=== PATIENT | female | born 1985 | race Caucasian/White ===

== ENCOUNTER → 2016-08-15 | Outpatient (CLI) | payer MEDICAID ==
[~2016-08-15] MED LIST: ALBU8.5H INH; BUDE10.22 INH; HYDR-4246 PO; HYDR2TAB56 PO; OXYC-541; PROC-14 PO
--- NOTE | 2016-08-17 10:15 | DI ---
Indication: ITS.REASON: C64.1 Comparison: Radiographs dated June 27, 2016 PROCEDURE: CT of the left arm without contrast. Technique: Axial CT images were performed through the left arm without intravenous contrast. Coronal and sagittal two-dimensional reformats. Automated Exposure Control and Iterative Reconstruction dose lowering techniques were utilized. Findings: Exam is performed for radiation therapy treatment planning purposes. Exam again shows interval surgery with resection of the radial head and proximal radius. There is some residual irregular soft tissue in this region which could be due to mass or hematoma near surgical clips causing metallic artifact. No additional lytic or blastic osseous foci identified. Impression: Radiation therapy treatment planning exam as above. .
== END ==
LOC: IMA 16:37
PROVIDERS: ATTEND Radiology Radiation Oncology
DX: C64.1 Malignant neoplasm of right kidney, except renal pelvis (principal); Z98.890 Other specified postprocedural states

== ENCOUNTER 2016-08-16 22:56 | Emergency (ER) | payer MEDICAID ==
[~2016-08-16] VITALS: Ht 165.1 cm; Wt 90.4 kg
[~2016-08-16 22:56] MED LIST changes: -PROC-14 PO
--- OUTSIDE RECORDS SUMMARY | 2016-08-16 23:00 | XMS REPORT | Continuity of Care Document ---
Author Author [facility] Organization [facility] Address Unknown Phone Unavailable Care Team Providers Care Tree Expert Name Role Phone Leonard Margot Primary Care Physician [phone] Source Comments Some departments are not documenting in the electronic medical record. If you do not see the information that you expected, contact Release of Information in the Health Information Management department at [phone] for further assistance in locating additional records.[facility] Active Allergies and Adverse Reactions Allergen Noted Date Severity Reactions Comments Pcn 06/25/2016 Medium RASH Zofran Odt 06/27/2016 Medium HEADACHE, RASH Current Medications Prescription Sig. Disp. Refills Start End Date Status Date acetaminophen (TYLENOL) Take 325 mg by mouth Active 325 mg tablet every 4 hours as needed for Pain. oxyCODONE SR (OXYCONTIN) Take 20 mg by mouth every Active 20 mg tablet 12 hours HYDROMORPHONE HCL Take 2 mg by mouth every Active (DILAUDID PO) 4-6 hours as needed. HYDROcodone/acetaminophen Take 1 Tab by mouth every Active (NORCO) 5/325 mg tablet 4 hours as needed for Pain Active Problems Problem Noted Date Metastatic cancer to bone (HCC) 07/05/2016 Most Recent Encounters Date Type Specialty Providers Description 08/08/2016 Hospital Radiology Atif Arnold MD Encounter 08/08/2016 Office Visit Oncology Atif Arnold MD Metastatic renal cell carcinoma, left (Primary Dx) 08/02/2016 Telephone Oncology Atif Arnold MD Other 07/29/2016 Telephone Oncology Atif Arnold MD Surgical Followup 07/17/2016 Documentation Oncology Atif Arnold MD 07/15/2016 Telephone Oncology Atif Arnold MD Wound Assessment 07/15/2016 Orders Only Oncology Atif Arnold MD Metastatic renal cell carcinoma, unspecified laterality (Primary Dx) 07/10/2016 Telephone Oncology Atif Arnold MD Other 07/09/2016 Telephone Oncology Atif Arnold MD Post-op 07/05/2016 Hospital Atif Arnold MD Metastatic cancer to bone - Encounter (HCC) 07/06/2016 07/05/2016 Telephone Oncology Atif Arnold MD Other 07/05/2016 Documentation Oncology Steph Arriola 07/05/2016 Anesthesia Sofia Ibrahim MD Event 07/05/2016 Surgery Atif Arnold MD RADICAL RESECTION LEFT PROXIMAL RADIUS. NEUROPLASTY, POSTERIOR INTEROSEOUS NERVE, BICIPITAL TENDON TENODESIS. 07/04/2016 Hospital Radiology Atif Arnold MD Encounter Rosana Smith RN Lind, Buzz Smith MD 07/01/2016 Telephone Oncology Atif Arnold MD Surgery 06/28/2016 Documentation Oncology Atif Arnold MD 06/28/2016 Documentation Oncology Steph Arriola 06/27/2016 Telephone Radiology Debi Barney RN 06/27/2016 Documentation Oncology Steph Arriola 06/27/2016 Telephone Oncology Atif Arnold MD Surgery 06/27/2016 Prep for Case Oncology Atif Arnold MD Metastatic renal cell carcinoma, unspecified laterality (Primary Dx) 06/26/2016 Telephone Oncology Atif Arnold MD Surgery 06/25/2016 Office Visit Oncology Atif Arnold MD Metastatic renal cell carcinoma to bone (HCC) (Primary Dx) 06/12/2016 Ancillary Radiology Outpatient, Radiologist Diagnosis unknown Orders (Primary Dx) 06/09/2016 Hospital Radiology Encounter 06/09/2016 Hospital Radiology Encounter Social History Tobacco Use Types Packs/Day Years Used Date Former Smoker 15 Quit: 06/02/2009 Smokeless Tobacco: Never Used Alcohol Use Drinks/Week oz/Week Comments No Last Filed Vital Signs Vital Sign Reading Time Taken Blood Pressure 118/63 08/08/2016 3:29 PM [employer]ANCE [employer] Pulse 79 08/08/2016 3:29 PM [employer] Temperature 36.4 C (97.6 F) 08/08/2016 3:29 PM [employer] Respiratory Rate 18 08/08/2016 3:29 PM [employer] Height 1.676 m (5' 5.98") 08/08/2016 3:29 PM INS[employer]ANCE [employer]NER Weight 91.717 kg (202 lb 3.2 oz) 08/08/2016 3:29 PM [employer] Body Mass Index 32.65 08/08/2016 3:29 PM [employer]ANCE [employer] Oxygen Saturation 99% 08/08/2016 3:29 PM [employer] Plan of Care Health Maintenance Due Date Last Done Comments Physical (Comprehensive) 1993 Exam Pertussis Vaccine 1997 Tetanus Vaccine 2003 Cervical Cancer Screening 2007 Influenza Vaccine 01/31/2017 Procedures from Last 3 Months Procedure Name Priority Date/Time Associated Diagnosis Comments ECG-SCAN 07/08/2016 Results for this 2:33 PM INS[employer]ANCE [employer] procedure are in the results section. RADICAL RESECTION LEFT 07/05/2016 Metastatic renal cell PROXIMAL RADIUS. 12:50 PM INS[employer]ANCE [employer]NER carcinoma (HCC) NEUROPLASTY, POSTERIOR INTEROSEOUS NERVE, BICIPITAL TENDON TENODESIS. Results from Last 3 Months * FOREARM 2 VIEWS LEFT (08/08/2016 4:05 PM) Only the most recent of 2 results within the time period is included. Impressions Findings/Impression: 1. The cast has been removed. The surgical drain has been removed. The postoperative air has resolved. Scattered clips and metallic coils are again seen in the proximal forearm similar to the prior study. Small amount of heterotopic ossification is seen in the proximal lateral forearm distal to the capitellum. Residual soft tissue swelling and stranding likely reflects residual postoperative change. 2. Prior resection of the proximal radius again noted. 3. There is a small focal lucency overlying the proximal radial osteotomy margin. This may reflect postoperative change. Subtle residual/recurrent lucent lesion is difficult to exclude as this appears more prominent than on the prior study. Attention on follow-up or further evaluation with cross-sectional imaging would be suggested. Finalized by Vicente Smith M.D. on 08/08/2016 6:09 PM. Dictated by Vicente Smith M.D. on 08/08/2016 6:05 PM. Narrative FOREARM 2 VIEWS LEFT 2 views obtained utilizing 3 images Indication: s/p Radical resection, left proximal radius for metastatic renal cell carcinoma. Comparison: July 05, 2016, June 09, 2016 Procedure Note Interface, Radiant Results - [facility] Aug 08, 2016 6:12 PM INSURANCE AG[employer]NER FOREARM 2 VIEWS LEFT 2 views obtained utilizing 3 images Indication: s/p Radical resection, left proximal radius for metastatic renal cell carcinoma. Comparison: July 05, 2016, June 09, 2016 IMPRESSION Findings/Impression: 1. The cast has been removed. The surgical drain has been removed. The postoperative air has resolved. Scattered clips and metallic coils are again seen in the proximal forearm similar to the prior study. Small amount of heterotopic ossification is seen in the proximal lateral forearm distal to the capitellum. Residual soft tissue swelling and stranding likely reflects residual postoperative change. 2. Prior resection of the proximal radius again noted. 3. There is a small focal lucency overlying the proximal radial osteotomy margin. This may reflect postoperative change. Subtle residual/recurrent lucent lesion is difficult to exclude as this appears more prominent than on the prior study. Attention on follow-up or further evaluation with cross-sectional imaging would be suggested. Finalized by Vicente Smith M.D. on 08/08/2016 6:09 PM. Dictated by Vicente Smith M.D. on 08/08/2016 6:05 PM. * ECG-SCAN (07/08/2016 2:33 PM) Narrative Ordered by an unspecified provider. * SURGICAL PATHOLOGY (07/05/2016 3:00 PM) Component Value Range PATHOLOGY REPORT [facility] [email or web address] Catalina Ponce MD, PhD, Director of Anatomic Pathology Department of Pathology and Laboratory Medicine [address] [place] [id number] Surgical Pathology Office: [phone] SURGICAL PATHOLOGY REPORT NAME: DIANA GROSSMAN TEQUITA SURG PATH #: [id number] MR #: [id number] SPECIMEN CLASS: SR BILLING #: [id number] ALT ID #: LOCATION: [facility] DATE OF PROCEDURE: 07/05/2016 AGE: 31 SEX: F DATE RECEIVED: 07/05/2016 : 1985 TIME RECEIVED: 15:00 PHYSICIAN: ATIF ARNOLD MD DATE OF REPORT: 07/09/2016 COPY TO: DATE OF PRINTIN07/09/2016 ################################################## ###################### Final Diagnosis: A. Bone, "left proximal radius", resection: Metastatic carcinoma consistent with metastatic renal cell carcinoma. See comment. Comment: Immunohistochemical stains show the tumor cells are positive for Cam5.2, PAX-8, focally positive for CD10, and negative for CK7 and CK 20. These findings support the above diagnosis. Pursuant to the [facility] at the [facility] Pathology Department, selected slides from this case have been concurrently reviewed by the following pathologist: Dr. Sada French, who agrees with the final diagnosis. Attestation: By this signature, I attest that I have personally formulated the final interpretation expressed in this report and that the above diagnosis is based upon my examination of the slides and/or other material indicated in this report. +++Electronically Signed Out By+++ ksw/07/05/2016 Interpreted by: Catalina Ponce MD, Attending Physician 07/09/2016 ################################################## ###################### Material Received: A: left proximal radius History: 31-year-old female with a history of metastatic renal cell carcinoma. Gross Description: A. Received fresh labeled patient's name and "left proximal radius" is a 4.5 x 1.5 x 1.2 cm portion of white-lowery, firm bone with a white-lowery, smooth articular surface opposing the smooth resection margin. There is a 3.5 x 2.5 x 1.1 cm white-lowery, hemorrhagic portion of soft tissue detached from the bone within the container. Load Out Person sections are submitted as follows: A1 Marrow from resection margin. A2-A4 Entire portion of detached soft tissue. A5 Load Out Person sections of bone marrow within bone fungi. (br) sd/07/05/2016 If immunohistochemical stains and/or in situ hybridization are cited in this report, the performance characteristics were determined by the Department of Pathology and Laboratory Medicine of the [facility] ([employer]) in compliance with CLIA'88 regulations. Some of these tests rely on the use of "analyte specific reagents" and are subject to specific labeling requirements by the FDA. Known positive and negative control tissues demonstrate appropriate staining. This testing was developed by the Department of Pathology and Laboratory Medicine of the [facility]. It has not been cleared or approved by the FDA. The FDA has determined that such clearance or approval is not necessary. * IR BODY EMBOLIZATION (07/04/2016 1:28 PM) Impressions Left upper extremity arteriogram and embolization of a markedly hypervascular destructive radial head mass using a combination of particles and coils. Finalized by Brett Dumont M.D. on 07/04/2016 3:55 PM. Dictated by Brett Dumont M.D. on 07/04/2016 3:40 PM. Narrative Left upper extremity arteriogram and embolization of radial head mass Clinical history: Renal cell carcinoma, left radial head metastasis Technique and findings: Buzz Perales M.D., the attending radiologist, was present for the procedure, personally reviewed the images, and formulated the interpretations and opinions expressed in this report. After informed written consent was obtained, the patient was brought to the fluoroscopy suite and placed in the supine position. The right groin was prepped and draped in the usual sterile fashion. 2% lidocaine was used to anesthetize the skin and the right common femoral artery was punctured using a 21-gauge micropuncture needle. An 018 wire was advanced centrally and a dermatotomy incision was made. The needle was exchanged for a micropuncture catheter. Inner portion of the catheter and the wire were removed and a Bentson wire was advanced into the abdominal aorta. A 6 Burmese vascular sheath was advanced over the Bentson wire and attached to a pressurized saline drip. A 5 Burmese TOBI 1 catheter was advanced over the Amplatz wire and used to select the left subclavian artery. Hand-injection digital subtraction angiography was performed. This demonstrated a widely patent left subclavian artery, axillary artery, and upper brachial artery without evidence of significant stenosis. The TOBI 1 catheter was advanced into the upper brachial artery. Hand-injection digital subtraction angiography was performed over the elbow demonstrating a markedly hypervascular mass which destroys the radial head. After the initial angiography was performed, the brachial artery demonstrated severe diffuse spasm. This was treated using 300 mcg of intra-arterial nitroglycerin as well as 5 mg of intra-arterial verapamil. This resulted in resolution of the spasm. A microcatheter was advanced into the distal brachial artery and hand-injection digital subtraction angiography was performed in multiple obliquities. Images demonstrated 2 dominant arterial feeders to the hypervascular mass. One of the vessels originated from the proximal radial artery and the other originating from the proximal ulnar artery. Both of these vessels were selected using the microcatheter and were embolized using a combination of 100-300 um embosphere's and 2 mm detachable coils. Repeat hand injection digital subtraction angiography was performed demonstrating marked reduction in flow to the mass. The catheters were removed and a sheath arteriogram was performed which demonstrated a widely patent right common femoral artery. Therefore, the arteriotomy site was closed using an Angio-Seal device. Sterile dressings were applied, and the patient was taken to the recovery area in stable condition. Total radiation dose: 159 mg Contrast: 160 cc Isovue-300 Medications: Versed 5 mg, fentanyl 200 mcg, Benadryl 50 mg Procedure Note Interface, Radiant Results - [facility] Jul 04, 2016 5:01 PM INSURANCE AG[employer]Y [employer]NER Left upper extremity arteriogram and embolization of radial head mass Clinical history: Renal cell carcinoma, left radial head metastasis Technique and findings: Buzz Perales M.D., the attending radiologist, was present for the procedure, personally reviewed the images, and formulated the interpretations and opinions expressed in this report. After informed written consent was obtained, the patient was brought to the fluoroscopy suite and placed in the supine position. The right groin was prepped and draped in the usual sterile fashion. 2% lidocaine was used to anesthetize the skin and the right common femoral artery was punctured using a 21-gauge micropuncture needle. An 018 wire was advanced centrally and a dermatotomy incision was made. The needle was exchanged for a micropuncture catheter. Inner portion of the catheter and the wire were removed and a Bentson wire was advanced into the abdominal aorta. A 6 Burmese vascular sheath was advanced over the Bentson wire and attached to a pressurized saline drip. A 5 Burmese TOBI 1 catheter was advanced over the Amplatz wire and used to select the left subclavian artery. Hand-injection digital subtraction angiography was performed. This demonstrated a widely patent left subclavian artery, axillary artery, and upper brachial artery without evidence of significant stenosis. The TOBI 1 catheter was advanced into the upper brachial artery. Hand-injection digital subtraction angiography was performed over the elbow demonstrating a markedly hypervascular mass which destroys the radial head. After the initial angiography was performed, the brachial artery demonstrated severe diffuse spasm. This was treated using 300 mcg of intra-arterial nitroglycerin as well as 5 mg of intra-arterial verapamil. This resulted in resolution of the spasm. A microcatheter was advanced into the distal brachial artery and hand-injection digital subtraction angiography was performed in multiple obliquities. Images demonstrated 2 dominant arterial feeders to the hypervascular mass. One of the vessels originated from the proximal radial artery and the other originating from the proximal ulnar artery. Both of these vessels were selected using the microcatheter and were embolized using a combination of 100-300 um embosphere's and 2 mm detachable coils. Repeat hand injection digital subtraction angiography was performed demonstrating marked reduction in flow to the mass. The catheters were removed and a sheath arteriogram was performed which demonstrated a widely patent right common femoral artery. Therefore, the arteriotomy site was closed using an Angio-Seal device. Sterile dressings were applied, and the patient was taken to the recovery area in stable condition. Total radiation dose: 159 mg Contrast: 160 cc Isovue-300 Medications: Versed 5 mg, fentanyl 200 mcg, Benadryl 50 mg IMPRESSION Left upper extremity arteriogram and embolization of a markedly hypervascular destructive radial head mass using a combination of particles and coils. Finalized by Brett Dumont M.D. on 07/04/2016 3:55 PM. Dictated by Brett Dumont M.D. on 07/04/2016 3:40 PM. * GENERAL RAD UPPER EXT EXTERNAL IMAGING (06/09/2016 12:15 AM) Narrative This order has been auto finalized and does not contain a result. * CT UPPER EXT EXTERNAL IMAGING (06/09/2016) Narrative This order has been auto finalized and does not contain a result.
--- OUTSIDE RECORDS SUMMARY | 2016-08-16 23:00 | XMS REPORT ---
Author Author [employer] Organization Unknown Address Unknown Phone Unavailable Care Team Providers Care Sr. Manager Name Role Phone UNASSIGNED DOCTOR , DOCTOR PP [phone] Reason For Visit Reason for Visit from 04/07/2016 2:20 AM:* Pt Stated Reason for Adm : Cellulitis of abdomen Chief Complaint CELLULITIS Social History Social History from 04/07/2016 9:00 PM:* Tobacco Use? : Current Everyday Smoker Social History from 04/07/2016 2:20 AM:* Tobacco Use? : Current Everyday Smoker Functional Status Functional Status from 04/07/2016 7:40 PM:* LOC : Irritable * Oriented To : Person,Place,Time,Event * Weight Bearing Status : Full * Assist Level : Independent * # Assists : Independent Functional Status from 04/07/2016 7:50 AM:* LOC : Alert * Oriented To : Person,Place,Time,Event * Weight Bearing Status : Full * Assist Level : Independent * # Assists : Independent Functional Status from 04/07/2016 2:20 AM:* LOC : Alert * Oriented To : Person,Place,Time,Event * Weight Bearing Status : Full * Assist Level : Independent * # Assists : Independent Vital Signs Hospital Vital Signs from 04/07/2016 7:23 PM:* Height : 5/5 ft,in * Temperature : 99.2 F * Pulse : 91 * Respirations : 18 * BP : 116/71 Hospital Vital Signs from 04/07/2016 4:00 PM:* Height : 5/5 ft,in * Temperature : 97.4 F * Pulse : 77 * Respirations : 18 * BP : 118/68 Hospital Vital Signs from 04/07/2016 7:57 AM:* Height : 5/5 ft,in * Temperature : 97.2 F * Pulse : 69 * Respirations : 18 * BP : 109/67 Hospital Vital Signs from 04/07/2016 2:20 AM:* Weight : 80.286/ kg * Height : 5/5 ft,in Hospital Vital Signs from 04/07/2016 2:19 AM:* Weight : 177/ lbs,oz * Height : 5/5 ft,in * Temperature : 97.4 F * Pulse : 107 * Respirations : 20 * BP : 140/87 Results Chemistry from 04/07/2016 6:03 AMSODIUM 140 MMOL/L (136-145 MMOL/L) POTASSIUM 3.7 MMOL/L (3.5-5.1 MMOL/L) CHLORIDE 104 MMOL/L (98-107 MMOL/L) TCO2 28.6 MMOL/L (21.0-32.0 MMOL/L) *ANION GAP 7.4 MMOL/L L (8.0-16.0 MMOL/L) BUN 11 MG/DL (7-18 MG/DL) CREATININE 1.29 MG/DL H (0.55-1.02 MG/DL) *BUN/CREATININE RATIO 8.5 L (9.1-17.0 ) GLUCOSE 96 MG/DL (65-99 MG/DL) CALCIUM 8.5 MG/DL (8.5-10.1 MG/DL) BILIRUBIN TOTAL 0.80 MG/DL (0.20-1.00 MG/DL) TOTAL PROTEIN 6.5 GM/DL (6.4-8.2 GM/DL) ALBUMIN 2.9 GM/DL L (3.4-5.0 GM/DL) *GLOBULIN 3.6 GM/DL H (2.3-3.5 GM/DL) *A/G RATIO 0.8 MG/DL L (1.5-2.2 MG/DL) ALK PHOS 88 U/L (46-116 U/L) ALT (SGPT) 26 U/L (16-63 U/L) AST (SGOT) 13 U/L L (15-37 U/L) Hematology from 04/07/2016 6:03 AMWBC 14.4 X10e3/UL H (3.6-11.2 X10e3/UL) RBC 4.43 X10e6/UL (3.63-4.92 X10e6/UL) HEMOGLOBIN 11.9 G/DL (11.0-14.3 G/DL) HEMATOCRIT 35.3 % (31.2-41.9 %) *MCV 79.7 FL (79.0-98.0 FL) *MCH 26.9 PG L (27.0-33.0 PG) *MCHC 33.7 G/DL (32.0-36.0 G/DL) *RDW 13.8 % (12.3-17.0 %) *RDWSD 39.4 (37.1-47.8 ) PLATELET 307 X10e3/UL (159-386 X10e3/UL) *MPV 7.3 FL L (7.4-10.4 FL) AUTOMATED DIFF PERFORMED SEGS 69.0 % *LYMPHOCYTES 17.1 % *MONOCYTES 7.6 % *EOSINOPHILS 5.7 % *BASOPHILS 0.6 % *ABSOLUTE NEUTROPHILS 10.00 X10e3/UL H (1.80-7.80 X10e3/UL) *ABSOLUTE LYMPHOCYTES 2.50 X10e3/UL (1.00-3.00 X10e3/UL) *ABSOLUTE MONOCYTES 1.10 X10e3/UL H (0.30-1.00 X10e3/UL) *ABSOLUTE EOSINOPHILS 0.80 X10e3/UL H (0.00-0.50 X10e3/UL) *ABSOLUTE BASOPHILS 0.10 X10e3/UL (0.00-0.20 X10e3/UL) Problems Encounter Diagnosis * Acute Pain Status:Active. * Asthma Status:Active. * Neoplasm of Kidney Status:Active. * Postoperative Wound Infection Status:Active. Encounters Encounter Diagnosis * Acute Pain Status:Active. * Asthma Status:Active. * Neoplasm of Kidney Status:Active. * Postoperative Wound Infection Status:Active. Plan of Care Treatment Plan from 04/07/2016 5:25 PM:* Care Management Note : Pt recently diagnosed with renal cancer. States she has support from her boyfriend, children , and [employer]. Pt planning to start chemo soon. Oncologist is in [place]. SW provided education on Palliative Care program and gave pt brochure. Pt states she will consider the program but may want to talk to her oncologist first. No other needs or concerns at this time. Treatment Plan from 04/07/2016 8:12 AM:* Care Management Note : Patient is inpatient status. She presented to the ED due to abdominal pain, swelling, redness and leukocytosis with WBC's 17.8. At presentation she was one day post discharge from [facility] after having a right nephrectomy. She was found to have fluid and free air in the abdomen. Blood cultures have been obtained and she is on empiric IV antibiotics and IVF at 100 hr. Meets ,medical necessity for inpatient. Care management will follow, provide clinical information to commercial insurance and assess for discharge needs. Procedures No relevant procedures performed. Immunizations No immunizations administered or ordered. Hospital Course Hospital Discharge Instructions How to care for yourself at home from 04/07/2016 9:00 PM:* Discharge Activity : Activity as tolerated,No Tub Bath * Discharge Diet : Diet as tolerated * Call your doctor if: : Fever over 101 F or severe chills,Chest pain or other unexplained symptoms,Tingling or numbness develops,A sudden increase or decrease in weight,You have persistent or worsening symptoms,If you have Heart Failure and you gain 3 pounds within 1 week or your symptoms worsen. (Weigh at home tomorrow morning) * Specific Discharge Teaching Instructions provided: : No * Discharge on Warfarin : No Allergies, Adverse Reactions, Alerts * Dilaudid causes unspecified. * morphine causes unspecified. * Penicillins causes unspecified. * Zofran (as hydrochloride) causes Mild Headache. * No Latex Allergy. * No IV Contrast Allergy. Medication Medication reconciliation has not been performed.
--- OUTSIDE RECORDS SUMMARY | 2016-08-16 23:00 | XMS REPORT ---
Author Author Kendra Contreras Organization [facility] Address [address] [place], [place] [id number] Care Team Providers Care Hoop Machine Operator Name Role Phone Kendra Contreras Unavailable [phone] PROBLEMS Type Condition ICD9-CM Code [id number] Code Onset Dates Condition Status SNOMED Code Assessment Infection following a procedure, initial encounter T81.4XXA May, Active [id number] ALLERGIES Substance Reaction Event Type Date Status Penicillin G Potassium Unknown Drug Allergy May, Active SOCIAL HISTORY No smoking Hx information available PLAN OF CARE VITAL SIGNS Height 5 ft 5 in in 2016 Weight 192 lbs 2016 BMI 31.95 kg/m2 2016 Temperature 97.9 degrees Fahrenheit 2016 Heart Rate 92 /min 2016 Respiratory Rate 18 /min 2016 Oximetry 97 % 2016 Blood pressure systolic 116 mm Hg 2016 Blood pressure diastolic 62 mm Hg 2016 MEDICATIONS Medication Instructions Dosage Frequency Start Date End Date Duration Status Mupirocin 2 % Externally Three times a day 1 application to affected area 8h May, May, 07 days Active RESULTS No Results PROCEDURES Procedure Date Ordered Related Diagnosis Body Site OFFICE VISIT EST PATIENT LEVEL 3 2016 IMMUNIZATIONS No Known Immunizations
--- OUTSIDE RECORDS SUMMARY | 2016-08-16 23:00 | XMS REPORT ---
Author Author GENERATED, SYSTEM Organization Unknown Address Unknown Phone Unavailable Care Team Providers Care Clinical Academic Allergist Name Role Phone UNASSIGNED DOCTOR , DOCTOR PP [phone] Reason For Visit Chief Complaint PRE EMPLOYMENT PHYSICAL Social History Functional Status Vital Signs Results Problems Encounter Diagnosis No relevant problems exist. Encounters Encounter Diagnosis No relevant problems exist. Plan of Care Procedures No relevant procedures performed. Immunizations No immunizations administered or ordered. Hospital Course Hospital Discharge Instructions Allergies, Adverse Reactions, Alerts * Latex Allergy has not been assessed. * IV Contrast Allergy has not been assessed. Medication Medication reconciliation has not been performed.
--- OUTSIDE RECORDS SUMMARY | 2016-08-16 23:01 | XMS REPORT ---
Author Author GENERATED, SYSTEM Organization Unknown Address Unknown Phone Unavailable Care Team Providers Care Management Accounts Manager Name Role Phone YARY DREW, GHAZAL PP [phone] Reason For Visit Chief Complaint M79.602 LT ARM PAIN AND SWELLING,VENOUS DOP UP ARM/NECK LT (DVT) Social History Functional Status Vital Signs Results Problems Encounter Diagnosis No relevant problems exist. Additional Problems * Acute Pain Comment:Problem resolved by [facility] Work[facility] upon Discharge, Status :Resolved. * Asthma Comment:Problem resolved by [facility] upon Discharge, Status: Resolved. * Neoplasm of Kidney Comment:Problem resolved by [facility] upon Discharge , Status:Resolved. * Postoperative Wound Infection Comment:Problem resolved by [facility] upon Discharge, Status:Resolved. Encounters Encounter Diagnosis No relevant problems exist. Plan of Care Procedures No relevant procedures performed. Immunizations No immunizations administered or ordered. Hospital Course Hospital Discharge Instructions Allergies, Adverse Reactions, Alerts * Dilaudid causes unspecified. * morphine causes unspecified. * Penicillins causes unspecified. * Zofran (as hydrochloride) causes Mild Headache. * Latex Allergy has not been assessed. * IV Contrast Allergy has not been assessed. Medication Medication reconciliation has not been performed.
--- OUTSIDE RECORDS SUMMARY | 2016-08-16 23:01 | XMS REPORT | Continuity of Care Document ---
Author Author [facility] Organization [facility] Address Unknown Phone Unavailable Care Team Providers Care Pallet Stone Inserter Name Role Phone DAVID ABDALLA MD Primary Care Physician [phone] Insurance Providers Payer Name Policy Number Subscriber Name Relationship [facility] [id number] Diana Grossman 19 Self Advance Directives Directive Response Recorded Date/Time Advanced Directives Type None 08/01/14 12:56pm Problems Medical Problems Problem Onset Date Status Viral illness Unknown Active Viral illness Unknown Active Medications Medication Dose Route Sig Days/Qty Instructions Order Date Discontinued Date Status Lurasidone HCl 40 Mg PO DAILY 08/01/14 Active Risperidone 5 Mg PO DAILY 08/01/14 Active Oseltamivir Phosphate 75 Mg PO TWICE A DAY 5 Days Take one capsules, by mouth, two times a day. 08/01/14 Active Social History Social History Problem Response Recorded Date/Time Hx Alcohol Use No 08/01/2014 1:09pm Query Response Start Date Stop Date Smoking Status Current every day smoker Hospital Discharge Instructions No hospital discharge instructions. Plan of Care No plan of care. Functional Status Query Response Date Recorded Physical Hygiene Self August 01, 2014 1:09pm Disabilities None August 01, 2014 1:09pm Devices Used None August 01, 2014 1:09pm Dressing Self August 01, 2014 1:09pm Ambulation Self August 01, 2014 1:09pm Diet Self August 01, 2014 1:09pm Mental Status Alert Oriented August 01, 2014 1:09pm Disabilities None August 01, 2014 1:09pm Devices Used None August 01, 2014 1:09pm Physical Hygiene Self August 01, 2014 1:09pm Dressing Self August 01, 2014 1:09pm Ambulation Self August 01, 2014 1:09pm Diet Self August 01, 2014 1:09pm Allergies, Adverse Reactions, Alerts No known allergies. Immunizations Name Given Type Hx Influenza Vaccination No Historical Hx Influenza Vaccination No Historical Vital Signs Acute Vital Signs Vital Response Date/Time Temperature (Fahrenheit) 96.9 deg F (96.8 - 99.1) Temperature (Calculated Celsius) 36.11114 degrees C (36.0 - 37.3) Pulse Rate (adult) 78 bpm (60 - 100) Respiratory Rate 18 breaths/min (10 - 20) O2 Sat by Pulse Oximetry 99 % (90 - 100) Blood Pressure 119/56 mm Hg Height 5 ft 5 in Weight 186 lb Body Mass Index 31.0 kg/m^2 Results Test Source Date Result Interp. Ref. Range Comments Influenza Type B Antigen August 01, 2014 1:06pm Negative - Negative for Flu B protein antigen. Assay sensitivity is90%. Influenza Type A Antigen August 01, 2014 1:06pm Negative - Negative for Flu A protein antigen. Assay sensitivity is90%. Procedures No known history of procedures. Encounters Encounter Location Date/Time Departed Emergency Room [facility] 08/01/14 12:10pm Recent Diagnosis
--- OUTSIDE RECORDS SUMMARY | 2016-08-16 23:01 | XMS REPORT | Continuity of Care Document ---
Author Author Pool [facility] Organization [facility] Address Unknown Phone Unavailable Care Team Providers Care Canned Food Reconditioning Inspector Name Role Phone YENNIFER DIXON Primary Care Physician [phone] Insurance Providers Payer Name Policy Number Subscriber Name Relationship [facility] [id number] Diana Grossman 19 Self Advance Directives Directive Response Recorded Date/Time Advanced Directives Type None 08/28/14 9:04pm Problems Medical Problems Problem Onset Date Status Viral illness Unknown Active Viral illness Unknown Active Exacerbation of intermittent asthma Unknown Active Medications Medication Dose Route Sig Days/Qty Instructions Order Date Discontinued Date Status Lurasidone HCl 40 Mg PO DAILY 08/01/14 Active Risperidone 5 Mg PO DAILY 08/01/14 Active Oseltamivir Phosphate 75 Mg PO TWICE A DAY 5 Days Take one capsules, by mouth, two times a day. 08/01/14 Active Prednisone 40 Mg PO GIVE WITH BREAKFAST 5 Days 08/28/14 Active Social History Social History Problem Response Recorded Date/Time Hx Alcohol Use No 08/28/2014 9:04pm Query Response Start Date Stop Date Smoking Status Current every day smoker Hospital Discharge Instructions No hospital discharge instructions. Plan of Care No plan of care. Functional Status Query Response Date Recorded Physical Hygiene Self August 28, 2014 9:04pm Disabilities None August 28, 2014 9:04pm Devices Used None August 28, 2014 9:04pm Dressing Self August 28, 2014 9:04pm Ambulation Self August 28, 2014 9:04pm Diet Self August 28, 2014 9:04pm Mental Status Alert Oriented August 28, 2014 9:04pm Disabilities None August 28, 2014 9:04pm Devices Used None August 28, 2014 9:04pm Physical Hygiene Self August 28, 2014 9:04pm Dressing Self August 28, 2014 9:04pm Ambulation Self August 28, 2014 9:04pm Diet Self August 28, 2014 9:04pm Allergies, Adverse Reactions, Alerts Allergen Type Severity Reaction Status Last Updated Penicillin Allergy Unknown Active 08/28/14 Immunizations Name Given Type Hx Influenza Vaccination No Historical Hx Influenza Vaccination No Historical Vital Signs Acute Vital Signs Vital Response Date/Time Temperature (Fahrenheit) 98.7 deg F (96.8 - 99.1) Temperature (Calculated Celsius) 37.28332 degrees C (36.0 - 37.3) Pulse Rate (adult) 89 bpm (60 - 100) Respiratory Rate 20 breaths/min (10 - 20) O2 Sat by Pulse Oximetry 99 % (90 - 100) Blood Pressure 101/49 mm Hg Height 5 ft 5 in Weight 189 lb Body Mass Index 31.0 kg/m^2 Results Test Source Date Result Interp. Ref. Range Comments Influenza Type B Antigen August 01, 2014 1:06pm Negative - Negative for Flu B protein antigen. Assay sensitivity is90%. Influenza Type A Antigen August 01, 2014 1:06pm Negative - Negative for Flu A protein antigen. Assay sensitivity is90%. Name: DIANA GROSSMAN Unit #: [id number] : 1985 Sex: F Loc / Svc: ED DOS: 08/28/14 Signed Report #: [id number] DIAGNOSTIC IMAGING REPORT TYPE OF EXAM: CHEST, PA & LATERAL Dictated By: CHRISTOPHER GÓMEZ MD INDICATION: ITS.REASON: cough shortness of air off and on for 2 weeks CHEST 2-VIEWS UPRIGHT (PA & LAT) COMPARISON: None FINDINGS: The lungs are clear without evidence of focal abnormal airspace opacity. There is no pleural effusion or pneumothorax. The heart size, mediastinal contours and pulmonary vascularity are within normal limits. There is no significant skeletal abnormality. IMPRESSION: No acute cardiopulmonary disease. . Procedures Procedure Status Date Provider(s) INFLUENZA A/B AG EIA completed 08/01/14 EMERGENCY DEPT VISIT completed 08/01/14 TRANSVAGINAL US NON-OB completed 08/11/14 Encounters Encounter Location Date/Time Registered Emergency Room [facility] 08/28/14 8:46pm Registered Clinic [facility] 08/11/14 1:58pm Departed Emergency Room [facility] 08/01/14 12:10pm Recent Diagnosis
--- OUTSIDE RECORDS SUMMARY | 2016-08-16 23:01 | XMS REPORT ---
Author Author GENERATED, SYSTEM Organization Unknown Address Unknown Phone Unavailable Care Team Providers Care Bowling Alley Mechanic Name Role Phone UNASSIGNED DOCTOR , DOCTOR PP [phone] Reason For Visit Chief Complaint RT RENAL MASS WITH RT FLANK PAIN Social History Functional Status Vital Signs Results Chemistry from 03/27/2016 10:17 AMSODIUM 141 MMOL/L (136-145 MMOL/L) POTASSIUM 4.0 MMOL/L (3.5-5.1 MMOL/L) CHLORIDE 105 MMOL/L (98-107 MMOL/L) TCO2 27.1 MMOL/L (21.0-32.0 MMOL/L) *ANION GAP 8.9 MMOL/L (8.0-16.0 MMOL/L) BUN 8 MG/DL (7-18 MG/DL) CREATININE 0.68 MG/DL (0.55-1.02 MG/DL) *BUN/CREATININE RATIO 11.8 (9.1-17.0 ) GLUCOSE 97 MG/DL (65-99 MG/DL) *GFR EST NON AFR BERMUDIAN >90 ML/MIN *GFR EST AFR AMER >90 ML/MIN CALCIUM 9.1 MG/DL (8.5-10.1 MG/DL) BILIRUBIN TOTAL 0.70 MG/DL (0.20-1.00 MG/DL) TOTAL PROTEIN 7.0 GM/DL (6.4-8.2 GM/DL) ALBUMIN 3.4 GM/DL (3.4-5.0 GM/DL) *GLOBULIN 3.6 GM/DL H (2.3-3.5 GM/DL) *A/G RATIO 0.9 MG/DL L (1.5-2.2 MG/DL) ALK PHOS 93 U/L (46-116 U/L) ALT (SGPT) 20 U/L (16-63 U/L) AST (SGOT) 12 U/L L (15-37 U/L) LIPASE 75 U/L (73-393 U/L) Hematology from 03/27/2016 10:17 AMWBC 12.4 X10e3/UL H (3.6-11.2 X10e3/UL) RBC 5.21 X10e6/UL H (3.63-4.92 X10e6/UL) HEMOGLOBIN 14.2 G/DL (11.0-14.3 G/DL) HEMATOCRIT 41.8 % (31.2-41.9 %) *MCV 80.2 FL (79.0-98.0 FL) *MCH 27.2 PG (27.0-33.0 PG) *MCHC 33.9 G/DL (32.0-36.0 G/DL) *RDW 13.9 % (12.3-17.0 %) *RDWSD 39.4 (37.1-47.8 ) PLATELET 316 X10e3/UL (159-386 X10e3/UL) *MPV 7.4 FL (7.4-10.4 FL) AUTOMATED DIFF PERFORMED SEGS 68.6 % *LYMPHOCYTES 21.0 % *MONOCYTES 6.7 % *EOSINOPHILS 2.8 % *BASOPHILS 0.9 % *ABSOLUTE NEUTROPHILS 8.50 X10e3/UL H (1.80-7.80 X10e3/UL) *ABSOLUTE LYMPHOCYTES 2.60 X10e3/UL (1.00-3.00 X10e3/UL) *ABSOLUTE MONOCYTES 0.80 X10e3/UL (0.30-1.00 X10e3/UL) *ABSOLUTE EOSINOPHILS 0.40 X10e3/UL (0.00-0.50 X10e3/UL) *ABSOLUTE BASOPHILS 0.10 X10e3/UL (0.00-0.20 X10e3/UL) Urinalysis from 03/27/2016 11:42 AM*URINE COLOR STRAW (STRAW/YELL/DK YELL ) *URINE APPEARANCE SL CLOUDY A (CLEAR ) URINE PH 6.5 (5.0-8.0 ) URINE SPECIFIC GRAVITY 1.010 (<=1.005->=1.030 ) *URINE GLUCOSE NEGATIVE MG/DL (NEGATIVE MG/DL) *URINE BILIRUBIN NEGATIVE (NEGATIVE ) *URINE KETONES NEGATIVE MG/DL (NEGATIVE MG/DL) *URINE BLOOD TRACE-INTACT A (NEGATIVE ) *URINE PROTEIN NEGATIVE MG/DL (NEGATIVE MG/DL) *URINE UROBILINOGEN 0.2 EU/DL (0.2-1.0 EU/DL) *URINE NITRITES NEGATIVE (NEGATIVE ) *URINE LEUKOCYTES NEGATIVE (NEGATIVE ) *MICROSCOPIC EXAM PERFORMED PERFORMED *WBC URINE 1-5 /HPF (0-5 /HPF) *RBC URINE 5-10 /HPF A (0-1 /HPF) *SQUAMOUS EP. CELLS MANY /LPF A (NEG-FEW /LPF) *BACTERIA MANY /HPF A (NEGATIVE /HPF) CT Scan from 03/27/2016 11:52 AMCT ABD/PELVIS W/CONTRAST History: Abdominal pain x2 weeks with right flank pain. Right renal mass identified on gallbladder ultrasound. Technique: Post contrast images were performed after the administration of 95 milliliters of Isovue intravenous contrast. Priors: None. Findings: Abdomen Lung bases: Clear Liver: Normal density. No definable mass. Spleen: Normal. Pancreas: No discrete mass or inflammatory process. Gallbladder and biliary tract: No radiodense calculus or dilation. Adrenal glands: Normal. Kidneys: There is an 8 x 6 x 5.5 cm mass in the mid and upper pole of the right kidney which extends cephalad into the right suprarenal space. There is some necrosis centrally of the tumor. The lesion is consistent with a neoplastic process such as renal cell carcinoma. The right renal vein and inferior vena cava appear patent. The left kidney appears unremarkable. Urinary Bladder: Normal. Aorta: Normal in caliber. No periaortic lymphadenopathy. Bowel and Mesentery: Grossly normal. No findings of appendicitis. Ascites: None. Pelvis Lymphadenopathy: None. Reproductive: The uterus is surgically absent. Osseous Structures: No suspicious findings. Impression: Large solid enhancing right renal mass as described consistent with a neoplastic process such as renal cell carcinoma. No discrete metastases are identified. Electronically signed by: Sukhwinder Beltran MD Dictated: 03/27/2016 12:29 CT CHEST W/ CONTRAST History: renal mass and right sided abdominal pain with vomiting. Staging Technique: Post contrast images were performed after the administration of 95 milliliters of Isovue intravenous contrast. Priors: None. Findings: Heart size: Normal. Aorta: Thoracic portion non-dilated. Mediastinum and Kari: No dominant adenopathy or fluid collection. Pleura: No effusion or pneumothorax. Pulmonary parenchyma: No consolidation or dominant measurable mass. Note is made of chronic scarring and fibrosis in the right upper lobe laterally of uncertain etiology. This may be previous infectious process. Upper abdomen: Unremarkable. Osseous structures: Unremarkable. 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 There multiple collateral vessels in the right anterior chest wall and Carlos Alberto spinous region. No lymphadenopathy or discrete supraclavicular mass lesion is identified. Impression: No evidence of acute infiltrate or pulmonary metastasis. 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 No discrete lymphadenopathy or mass lesions identified. Chronic pleural parenchymal scarring in the right upper lobe of uncertain etiology. This may be from prior infectious process or other etiologies such as radiation therapy. Correlation with medical history is recommended. Electronically signed by: Sukhwinder Beltran MD Dictated: 03/27/2016 12:15 Problems Encounter Diagnosis No relevant problems exist. [...]
--- OUTSIDE RECORDS SUMMARY | 2016-08-16 23:01 | XMS REPORT | Continuity of Care Document ---
Author Author [facility] Organization [facility] Address Unknown Phone Unavailable Allergies Active Description Code Type Severity Reaction Onset Reported/Identified Relationship to Patient Clinical Status Yes penicillin ZZ Drug Allergy Moderate Eruption - Rash 03/28/2015 Medications Problems Date Dx Coded Attending Type Code Diagnosis Diagnosed By 03/24/2015 INDRA LINDER, BHAVESH Aranda 300.02 Generalized Anxiety Disorder 03/24/2015 INDRA LINDER, BHAVESH Aranda 309.89 Other specified adjustment reactions 04/15/2016 D C641 Malignant neoplasm of right kidney, except renal pelvis 04/15/2016 D 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 04/15/2016 D [id number] Nicotine dependence, cigarettes, uncomplicated 04/15/2016 D [id number] Cellulitis of abdominal wall 04/15/2016 D [id number] Infection following a procedure, initial encounter 04/15/2016 D Z8541 Personal history of malignant neoplasm of cervix uteri 04/15/2016 D Z881 Allergy status to other antibiotic agents status 04/15/2016 D Z885 Allergy status to narcotic agent status 04/15/2016 D Z905 Acquired absence of kidney Procedures Results Test Result Range CBC WITH PLATELET AND DIFFERENTIAL - 03/27/16 10:17 SEGS 68.6 % NRG *BASOPHILS 0.9 % NRG *EOSINOPHILS 2.8 % NRG AUTOMATED DIFF PERFORMED NRG *LYMPHOCYTES 21.0 % NRG *MONOCYTES 6.7 % NRG *ABSOLUTE BASOPHILS 0.10 10*3/uL 0.00- 0.20 *ABSOLUTE EOSINOPHILS 0.40 10*3/uL 0.00- 0.50 *ABSOLUTE LYMPHOCYTES 2.60 10*3/uL 1.00- 3.00 *ABSOLUTE MONOCYTES 0.80 10*3/uL 0.30- 1.00 *ABSOLUTE NEUTROPHILS 8.50 10*3/uL 1.80- 7.80 MPV 7.4 fL 7.4-10.4 PLATELETS 316 10*3/uL 159-386 WBC 12.4 10*3/uL 3.6-11.2 RBC 5.21 3.63-4.92 HEMOGLOBIN 14.2 11.0-14.3 HEMATOCRIT 41.8 % 31.2-41.9 MCV 80.2 fL 79.0-98.0 MCH 27.2 pg 27.0-33.0 MCHC 33.9 32.0-36.0 RDW 13.9 % 12.3-17.0 RDWSD 39.4 37.1-47.8 COMPREHENSIVE METABOLIC PANEL - 03/27/16 10:17 BILIFUBIN TOTAL 0.70 0.20-1.00 TOTAL PROTEIN 7.0 6.4-8.2 ALBUMIN 3.4 3.4-5.0 *GLOBULIN 3.6 2.3-3.5 *A/G RATIO 0.9 1.5-2.2 ALK PHOS 93 U/L 46-116 ALT (SGPT) 20 U/L 16-63 AST (SGOT) 12 U/L 15-37 GFR ESTIMATION - 03/27/16 10:17 *GFR EST NON AFR GREEK >90 mL/min NRG *GRFA EST AFR AMER >90 mL/min NRG LIPASE - 03/27/16 10:17 LIPASE 75 U/L 73-393 URINALYSIS (CULTURE PRN) - 03/27/16 11:42 *URINE APPEARANCE SL CLOUDY CLEAR *URINE BILIRUBIN NEGATIVE NEGATIVE *URINE BLOOD TRACE-INTACT NEGATIVE *URINE GLUCOSE NEGATIVE NEGATIVE *URINE KETONES NEGATIVE NEGATIVE *URINE LEUKOCYTES NEGATIVE NEGATIVE *URINE NITRITES NEGATIVE NEGATIVE URINE PH 6.5 5.0-8.0 *URINE PROTEIN NEGATIVE NEGATIVE URINE SPECIFIC GRAVITY 1.010 <=1.005->= 1.030 *URINE UROBILINOGEN 0.2 0.2-1.0 *URINE COLOR STRAW STRAW/YELL/DK YELL URINE MICROSCOPIC - 03/27/16 11:42 WBC 1-5 /[HPF] 0-5 RBC 5-10 /[HPF] 0-1 MICROSCOPIC EXAM PERFORMED PERFORMED NRG SQUAMOUS EP. CELLS MANY /[LPF] NEG-FEW BACTERIA MANY /[HPF] NEGATIVE CULTURE URINE - 03/27/16 11:42 CULTURE URINE 50,000 cfu/ml-100,000 cfu/ml~3 or more gram positive colony types~Suggestive of colonization or contamination NR LACTIC ACID - 04/06/16 01:22 LACTIC ACID 0.7 0.9-1.7 CBC WITH PLATELET AND DIFFERENTIAL - 04/06/16 01:22 SEGS 71.9 % NRG *BASOPHILS 0.6 % NRG *EOSINOPHILS 4.5 % NRG AUTOMATED DIFF PERFORMED NRG *LYMPHOCYTES 17.4 % NRG *MONOCYTES 5.6 % NRG *ABSOLUTE BASOPHILS 0.10 10*3/uL 0.00- 0.20 *ABSOLUTE EOSINOPHILS 0.80 10*3/uL 0.00- 0.50 *ABSOLUTE LYMPHOCYTES 3.10 10*3/uL 1.00- 3.00 *ABSOLUTE MONOCYTES 1.00 10*3/uL 0.30- 1.00 *ABSOLUTE NEUTROPHILS 12.80 10*3/uL 1.80- 7.80 MPV 7.5 fL 7.4-10.4 PLATELETS 342 10*3/uL 159-386 WBC 17.8 10*3/uL 3.6-11.2 RBC 4.86 3.63-4.92 HEMOGLOBIN 13.2 11.0-14.3 HEMATOCRIT 38.5 % 31.2-41.9 MCV 79.2 fL 79.0-98.0 MCH 27.1 pg 27.0-33.0 MCHC 34.2 32.0-36.0 RDW 14.0 % 12.3-17.0 RDWSD 39.8 37.1-47.8 PROTHROMBIN TIME - 04/06/16 01:22 *INR 1.0 0.9-1.1 *PROTHROMBIN TIME 10.3 s 9.4-11.5 PARTIAL THROMBOPLASTIN TIME - 04/06/16 01:22 PARTIAL THROMBOPLASTIN TIME 32.4 s 23.0- 31.0 URINALYSIS (CULTURE PRN) - 04/06/16 23:05 *URINE APPEARANCE CLEAR CLEAR *URINE BILIRUBIN NEGATIVE NEGATIVE *URINE BLOOD TRACE-INTACT NEGATIVE *URINE GLUCOSE NEGATIVE NEGATIVE *URINE KETONES NEGATIVE NEGATIVE *URINE LEUKOCYTES NEGATIVE NEGATIVE *URINE NITRITES NEGATIVE NEGATIVE URINE PH 6.0 5.0-8.0 *URINE PROTEIN NEGATIVE NEGATIVE URINE SPECIFIC GRAVITY <1.005 <=1.005->= 1.030 *URINE UROBILINOGEN 0.2 0.2-1.0 *URINE COLOR YELLOW STRAW/YELL/DK YELL URINE MICROSCOPIC - 04/06/16 23:05 WBC 0-1 /[HPF] 0-5 RBC 1-5 /[HPF] 0-1 MICROSCOPIC EXAM PERFORMED PERFORMED NRG SQUAMOUS EP. CELLS MODERATE /[LPF] NEG- FEW CULTURE BLOOD - 04/06/16 23:29 CULTURE BLOOD No growth after 5 days of incubation. NRG COMPREHENSIVE METABOLIC PANEL - 04/07/16 01:22 BILIFUBIN TOTAL 0.80 0.20-1.00 TOTAL PROTEIN 7.6 6.4-8.2 ALBUMIN 3.4 3.4-5.0 *GLOBULIN 4.2 2.3-3.5 *A/G RATIO 0.8 1.5-2.2 ALK PHOS 99 U/L 46-116 ALT (SGPT) 33 U/L 16-63 AST (SGOT) 17 U/L 15-37 GFR ESTIMATION - 04/07/16 01:22 *GFR EST NON AFR GREEK 62 mL/min NRG *GRFA EST AFR AMER 72 mL/min NRG LIPASE - 04/07/16 01:22 LIPASE 61 U/L 73-393 CULTURE BLOOD - 04/07/16 01:22 CULTURE BLOOD No growth after 5 days of incubation. NRG CBC WITH PLATELET AND DIFFERENTIAL - 04/07/16 06:03 SEGS 69.0 % NRG *BASOPHILS 0.6 % NRG *EOSINOPHILS 5.7 % NRG AUTOMATED DIFF PERFORMED NRG *LYMPHOCYTES 17.1 % NRG *MONOCYTES 7.6 % NRG *ABSOLUTE BASOPHILS 0.10 10*3/uL 0.00- 0.20 *ABSOLUTE EOSINOPHILS 0.80 10*3/uL 0.00- 0.50 *ABSOLUTE LYMPHOCYTES 2.50 10*3/uL 1.00- 3.00 *ABSOLUTE MONOCYTES 1.10 10*3/uL 0.30- 1.00 *ABSOLUTE NEUTROPHILS 10.00 10*3/uL 1.80- 7.80 MPV 7.3 fL 7.4-10.4 PLATELETS 307 10*3/uL 159-386 WBC 14.4 10*3/uL 3.6-11.2 RBC 4.43 3.63-4.92 HEMOGLOBIN 11.9 11.0-14.3 HEMATOCRIT 35.3 % 31.2-41.9 MCV 79.7 fL 79.0-98.0 MCH 26.9 pg 27.0-33.0 MCHC 33.7 32.0-36.0 RDW 13.8 % 12.3-17.0 RDWSD 39.4 37.1-47.8 COMPREHENSIVE METABOLIC PANEL - 04/07/16 06:03 SODIUM 140 mmol/L 136-145 POTASSIUM 3.7 mmol/L 3.5-5.1 CHLORIDE 104 mmol/L 98-107 TCO2 28.6 mmol/L 21.0-32.0 *ANION GAP 7.4 mmol/L 8.0-16.0 BUN 11 7-18 CREATININE 1.29 0.55-1.02 *BUN/CREATININE RATIO 8.5 9.1-17.0 GLUCOSE 96 65-99 CALCIUM 8.5 8.5-10.1 BILIFUBIN TOTAL 0.80 0.20-1.00 TOTAL PROTEIN 6.5 6.4-8.2 ALBUMIN 2.9 3.4-5.0 *GLOBULIN 3.6 2.3-3.5 *A/G RATIO 0.8 1.5-2.2 ALK PHOS 88 U/L 46-116 ALT (SGPT) 26 U/L 16-63 AST (SGOT) 13 U/L 15-37 Encounters ACCT No. Visit Date/Time Discharge Status Pt. Type Provider Facility Loc./Unit Complaint [id number] 03/24/2015 00:00:00 05/06/2016 00: 00:00 DIS Outpatient BHAVESH BURRELL MD
--- OUTSIDE RECORDS SUMMARY | 2016-08-16 23:01 | XMS REPORT | Continuity of Care Document ---
Author Author [facility] Organization [facility] Address Unknown Phone Unavailable Care Team Providers Care Technician Name Role Phone YENNIFER DIXON Primary Care Physician [phone] Insurance Providers Guarantor Diana Grossman Address [address] [place] [address] Email [email or web address] [facility] Plan Policy Number [id number] Subscriber's Name Grossman,Diana Stout Relationship 18 Self Effective Date 16 Expiration Date 16 Chief Complaint and Reason for Visit Chief Complaint Upper Extremity Pain Reason for Visit Postoperative pain of extremity Problems Active Problems Medical Problem Onset Date Status Bronchitis with asthma, acute Unknown Acute Diarrhea Unknown Acute Diarrhea Unknown Acute Exacerbation of intermittent asthma Unknown Acute Exacerbation of intermittent asthma Unknown Acute History of asthma Unknown Acute Rash and other nonspecific skin eruption Unknown Acute Rash and other nonspecific skin eruption Unknown Acute Renal cell carcinoma of right kidney Unknown URI (upper respiratory infection) Unknown Acute Viral illness Unknown Acute Viral illness Unknown Acute Viral syndrome Unknown Acute Viral syndrome Unknown Acute Past Problems Medical Problem Onset Date Left elbow pain Unknown Lytic bone lesions on xray Unknown Postoperative cellulitis of surgical wound Unknown Postoperative pain of extremity Unknown Medications Current Home Medications Medication Dose Units Route Directions Days Qty Instructions Start Date Albuterol Sulfate (Proair Hfa 90 Mcg/Actuation) 8.5 Gm Hfa.aer.ad 2 Puff Inhalation Every 3-4 Hours as needed for Shortness Of Air/Wheezing 1 Inhaler 08/26/15 Budesonide/Formoterol Fumarate (Symbicort 80-4.5 Mcg Inhaler) 60 Puff/Inhaler Inhaler 2 Puff Inhalation Twice A Day as needed for Shortness Of Air THIS WAS A FRIEND'S INHALER, NOT HER OWN 08/26/15 Hydrocodone/Acetaminophen ([place] 5-325 Tablet) 5-325 Tablet 1-2 Tab Oral Four Times Daily as needed for Pain 30 06/10/16 Hydromorphone Hcl (Dilaudid) 2 Mg Tablet 1-2 Tab Oral Every 4-6 Hours 60 Tablet 08/04/16 Oxycodone Hcl/Acetaminophen (Oxycodone-Acetaminophen 5-325) 5-325 Tablet 28 06/09/16 Past Home Medications Medication Directions Ordered Status Acetaminophen/Hydrocodone Bitart ([place] 5-325 Tablet) 1 Each Tablet, 0.5 Tab Oral Twice A Day 10/03/14 Discontinued Clindamycin Hcl (Cleocin Hcl) 300 Mg Capsule, 1 Cap Oral Four Times Daily 04/17 Discontinued Haloperidol 1 Mg Tablet, 1 Mg Oral Daily 08/26/15 Discontinued Levofloxacin (Levaquin) 750 Mg Tablet, 1 Tab Oral Daily 04/12/16 Discontinued No Routine Meds , 08/26/15 Discontinued Promethazine Hcl/Codeine (Prometh-Codein 6.25-10 Mg/5 Ml) 5 Ml Syrup, 5 Ml Oral Every 6 Hours as needed for Cough 03/13/15 Discontinued Social History Social History Problem Response Recorded Date/Time Onset Date Status Hx Substance Use No 08/04/2016 11:22pm Not Applicable Not Applicable Hx Alcohol Use No 08/04/2016 11:22pm Not Applicable Not Applicable Has the pt used tobacco in the last 12 months Yes 10/05/2014 7:16am Not Applicable Not Applicable Tobacco Usage smoke 08/29/2014 2:15am Not Applicable Not Applicable Query Response Start Date Stop Date Smoking Status Unknown if ever smoked Hospital Discharge Instructions No hospital discharge instructions. Plan of Care Discharge Date 08/05/16 12:05am Disposition 01 DISCHARGED HOME, SELF-CARE Condition at Discharge Improved Instructions/Education Provided Arm Pain (ED) Prescriptions See Medication Section Referrals SHREE DREW Address: [address] [id number] YENNIFER DIXON Address: [address] [place] [id number] Additional Instructions/Education Hydromorphone/Dilaudid 2 mg tablets, one to 2 tablets every 4-6 hours as needed for severe pain, take the minimal amount required. Follow-up with your doctor later this week. Keep splint in place, clean, and dry Care Plan and Goals Physician Care Plan Problem: Postoperative pain Goal: Follow up with primary care provider Instructions: Take medications and follow care plan as discussed/written Hydromorphone/Dilaudid 2 mg tablets, one to 2 tablets every 4-6 hours as needed for severe pain, take the minimal amount required. Follow-up with your doctor later this week. Keep splint in place, clean, and dry Functional Status No functional status results. Allergies, Adverse Reactions, Alerts Allergen Type Severity Reaction Status Last Updated Penicillin Allergy Unknown Active 08/04/16 Morphine Adverse Reaction Unknown "MAKES ME FEEL LIKE I'M GOING TO " Active 08/04/16 Ibuprofen Allergy Mild DUE TO NEPHRECTOMY Active 08/04/16 Hydromorphone Adverse Reaction Unknown "MAKES ME FEEL LIKE I'M GOING TO " Active 08/04/16 Ondansetron Adverse Reaction Unknown REALLY BAD HEADACHES Active 08/04/16 Immunizations Query Response on File Recorded Date/Time Hx Influenza Vaccination No 10/03/14 9:17am Hx Pneumococcal Vaccination No 10/03/14 9:17am Hx Influenza Vaccination No 10/03/14 9:17am DTaP Vaccine History 04/1608/04/16 11:22pm Influenza Vaccine Hx FALL 201508/04/16 11:24pm Tdap Vaccine Hx NO BROKEN SKIN 06/09/16 10:07pm Vital Signs Acute Vital Signs Vital Response Date/Time Temperature (Fahrenheit) 98.4 deg F (96.8 - 99.1) 08/05/2016 12:05am Temperature (Calculated Celsius) 36.44530 degrees C (36.0 - 37.3) 08/05/2016 12:05am Pulse Rate (adult) 80 bpm (60 - 100) 08/05/2016 12:05am Respiratory Rate 16 breaths/min (10 - 20) 08/05/2016 12:05am O2 Sat by Pulse Oximetry 97 % (90 - 100) 08/05/2016 12:05am Blood Pressure 109/55 mm Hg 08/05/2016 12:05am Height (Feet) 5 feet 08/04/2016 11:00pm Height (Inches) 5.00 inches 08/04/2016 11:00pm Weight (Kilograms) 91.100 kg 08/04/2016 11:00pm Body Mass Index (BMI) 33.0 08/04/2016 11:00pm Results Laboratory Results Test Name Result Units Flags Reference Collection Date/Time Result Date/ Time Comments Neutrophils % (Manual) 70.0 % H 33-66 06/09/2016 10:40pm 06/09/2016 11: 17pm Lymphocytes % (Manual) 30.0 % 23-45 06/09/2016 10:40pm 06/09/2016 11: 17pm Absolute Neutrophils (Manual) 11.3 T/MM3 H 1.8-7.7 06/09/2016 10:40pm 11:17pm Lymphocytes # (Manual) 4.8 T/MM3 1-4.8 06/09/2016 10:40pm 06/09/2016 11 :17pm Red Cell Morphology Comment NORMAL 06/09/2016 10:40pm 06/09/2016 11 :17pm Prothromb Time International Ratio 1.03 0.76-1.04 06/27/2016 12:03pm 06/27/2016 12:20pm THERAPUTIC RANGE=2.00-3.00 FOR ANTI-THROMBOSIS THERAPUTIC RANGE=2.50-3.50 FOR IMPLANTED VALVE Activated Partial Thromboplast Time 36.1 SEC H 24-36 06/27/2016 12:03pm 06/27/2016 12:20pm Thyroid Stimulating Hormone (TSH) 1.84 MIU/L 0.47-4.68 06/27/2016 12: 03pm 06/27/2016 2:21pm White Blood Count 11.7 T/MM3 H 4.5-11.0 07/01/2016 12:54pm 07/01/2016 1: 02pm Red Blood Count 5.00 M/MM3 4.00-5.20 07/01/2016 12:54pm 07/01/2016 1: 02pm Hemoglobin 13.9 GM/DL 12-16 07/01/2016 12:54pm 07/01/2016 1:02pm Hematocrit 41.4 % 36-46 07/01/2016 12:54pm 07/01/2016 1:02pm Mean Corpuscular Volume 82.8 UM3 80-100 07/01/2016 12:54pm 07/01/2016 1 :02pm Mean Corpuscular Hemoglobin 27.8 UUG 26-34 07/01/2016 12:54pm 2016 1:02pm Mean Corpuscular Hemoglobin Concent 33.6 GM/DL 31-37 07/01/2016 12:54pm 07/01/2016 1:02pm RDW Standard Deviation 41.5 FL 36.9-50.2 07/01/2016 12:54pm 07/01/2016 1:02pm Platelet Count 322 T/MM3 130-400 07/01/2016 12:54pm 07/01/2016 1:02pm Mean Platelet Volume 9.4 UM3 9.4-12.4 07/01/2016 12:54pm 07/01/2016 1: 02pm Neutrophils (%) (Auto) 58.0 % 33-66 07/01/2016 12:54pm 07/01/2016 1: 02pm Lymphocytes (%) (Auto) 30.8 % 23-45 07/01/2016 12:54pm 07/01/2016 1: 02pm Monocytes (%) (Auto) 6.8 % 0-9.0 07/01/2016 12:54pm 07/01/2016 1:02pm Eosinophils (%) (Auto) 3.7 % 0-4 07/01/2016 12:54pm 07/01/2016 1:02pm Basophils (%) (Auto) 0.5 % 0-2 07/01/2016 12:54pm 07/01/2016 1:02pm Immature Granulocyte % (Auto) 0.2 % 0.0-0.5 07/01/2016 12:54pm 2016 1:02pm Absolute Neutrophils (auto) 6.8 T/MM3 1.8-7.7 07/01/2016 12:54pm 2016 1:02pm Absolute Lymphocytes (auto) 3.6 T/MM3 1-4.8 07/01/2016 12:54pm 2016 1:02pm Absolute Monocytes (auto) 0.8 T/MM3 0-0.8 07/01/2016 12:54pm 2016 1:02pm Absolute Eosinophils (auto) 0.4 T/MM3 0-0.5 07/01/2016 12:54pm 2016 1:02pm Absolute Basophils (auto) 0.1 T/MM3 0-0.2 07/01/2016 12:54pm 2016 1:02pm Absolute Immature Granulocyte (auto 0.02 T/MM3 0.00-0.03 07/01/2016 12: 54pm 07/01/2016 1:02pm Icterus Index < 2 0-7 07/01/2016 12:54pm 07/01/2016 1:18pm Chemistry Specimen Hemolysis < 15 0-25 07/01/2016 12:54pm 07/01/2016 1:18pm 0-25: Specimen Exhibited No Hemolysis. Turbidity < 20 0-20 07/01/2016 12:54pm 07/01/2016 1:18pm Sodium Level 141 MEQ/L 134-144 07/01/2016 12:54pm 07/01/2016 1:18pm Potassium Level 3.9 MEQ/L 3.6-5 07/01/2016 12:54pm 07/01/2016 1:18pm Chloride Level 104 MEQ/L 98-107 07/01/2016 12:54pm 07/01/2016 1:18pm Carbon Dioxide Level 28 MEQ/L 22-30 07/01/2016 12:54pm 07/01/2016 1: 18pm Anion Gap 9 MEQ/L 5-15 07/01/2016 12:54pm 07/01/2016 1:18pm Blood Urea Nitrogen 15.0 MG/DL 7-17 07/01/2016 12:54pm 07/01/2016 1: 18pm Creatinine 1.0 MG/DL 0.7-1.2 07/01/2016 12:54pm 07/01/2016 1:18pm BUN/Creatinine Ratio 15 RATIO 6-26 07/01/2016 12:54pm 07/01/2016 1: 18pm Glomerular Filtration Rate Calc 65 07/01/2016 12:54pm 07/01/2016 1: 18pm Glucose Level 107 MG/DL 65-110 07/01/2016 12:54pm 07/01/2016 1:18pm Calculated Osmolality 272 MOSM/KG 261-280 07/01/2016 12:54pm 2016 1:18pm Calcium Level 9.2 MG/DL 8.4-10.2 07/01/2016 12:54pm 07/01/2016 1:18pm Total Bilirubin 0.50 MG/DL 0.20-1.30 07/01/2016 12:54pm 07/01/2016 1: 18pm Alkaline Phosphatase 75 U/L 38-126 07/01/2016 12:54pm 07/01/2016 1: 18pm Total Protein 6.6 G/DL 6.3-8.2 07/01/2016 12:54pm 07/01/2016 1:18pm Albumin 4.0 G/DL 3.5-5.0 07/01/2016 12:54pm 07/01/2016 1:18pm Globulin 2.6 G/DL 2.4-3.6 07/01/2016 12:54pm 07/01/2016 1:18pm Albumin/Globulin Ratio 1.5 RATIO 1.1-2.2 07/01/2016 12:54pm 07/01/2016 1:18pm Aspartate Amino Transf (AST/SGOT) 19 U/L 14-36 07/01/2016 12:54pm 07/01 1:18pm Alanine Aminotransferase (ALT/SGPT) 31 U/L 9-52 07/01/2016 12:54pm 1:18pm C-Reactive Protein 7.9 MG/L 0-9 07/01/2016 12:54pm 07/01/2016 1:31pm Plasma Lactate 1.0 MMOL/L 0.6-2.2 07/01/2016 12:54pm 07/01/2016 1:10pm Procalcitonin < 0.05 NG/ML 07/01/2016 12:54pm 07/01/2016 2:05pm PCT </=0.5 ng/mL - sepsis not likely; PCT >0.5 and </=2 ng/mL - sepsis possible; PCT >2 ng/mL - sepsis likely; PCT >/=10 ng/mL - systemic inflammatory response - sepsis or septic shock highly indicated. Procedures Procedure Status Date Provider(s) Routine venipuncture Completed 06/09/16 X-ray exam of forearm Completed 06/09/16 Ct upper extremity w/o dye Completed 06/09/16 Complete cbc w/auto diff wbc Completed 06/09/16 Emergency dept visit Completed 06/09/16 735952"DEXAMETHASONE, ORAL, 0.25 MG" Completed 06/09/16 Routine venipuncture Completed 06/14/16 Ct thorax w/dye Completed 06/14/16 Ct abd & pelv w/contrast Completed 06/14/16 Bone imaging whole body Completed 06/14/16 Comprehen metabolic panel Completed 06/14/16 696122"TECHNETIUM TC-99M MEDRONATE, DIAGNOSTIC, PER STUDY DO Completed 253537"INFUSION, NORMAL SALINE SOLUTION , 250 CC" Completed 06/14/16 284534"LOW OSMOLAR CONTRAST MATERIAL, 300-399 MG/ML IODINE C Completed X-ray exam of humerus Completed 06/27/16 X-ray exam of elbow Completed 06/27/16 X-ray exam of forearm Completed 06/27/16 Comprehen metabolic panel Completed 06/27/16 Assay thyroid stim hormone Completed 06/27/16 Complete cbc w/auto diff wbc Completed 06/27/16 Prothrombin time Completed 06/27/16 Thromboplastin time partial Completed 06/27/16 Electrocardiogram tracing Completed 07/18/16 Tte w/doppler complete Completed 07/18/16 X-ray exam ribs thomas 3 views Completed 07/26/16 X-ray exam of pelvis Completed 07/26/16 X-ray exam of shoulder Completed 07/26/16 X-ray exam of ankle Completed 07/26/16 Encounters Encounter Location Arrival/Admit Date Discharge/Depart Date Attending Provider Departed Emergency Room [facility] 08/04/16 10:57pm 08/05/16 12: 05am PAUL MURCIA MD Registered [facility] 07/26/16 10:42am STEPHANIE CHAIDEZ MD Registered [facility] 07/18/16 9:12am STEPHANIE CHAIDEZ MD Registered [facility] 07/01/16 12:41pm STEPHANIE CHAIDEZ MD Registered [facility] 06/27/16 11:24am STEPHANIE CHAIDEZ MD Registered [facility] 06/14/16 10:11am STEPHANIE CHAIDEZ MD Departed Emergency Room [facility] 06/09/16 8:58pm 06/10/16 1: 12am PAUL MURCIA MD Recent Diagnosis
[2016-08-16 23:02] VITALS: Ht 165.1 cm; Wt 90.4 kg
--- NOTE | 2016-08-16 23:07 | ERPDOC ---
Departure Disposition Decision Date: Aug 17, 2016 Disposition Decision Time: 00:24 Disposition: 01 DISCHARGED HOME, SELF-CARE Impression Impression Impression: Primary Impression: Migraine headache Qualified Codes: G43.919 - Migraine, unspecified, intractable, without status migrainosus Severity: Severe Condition: Improved Seen By: Physician only Referrals: YENNIFER DIXON (PCP) SHREE DREW (Family) Patient Instructions: Migraine Headache (ED) Problems/Meds/Labs Reviewed?: Yes Medications reviewed and manag: Yes Additional Instructions: Take your routine medications for pain as needed Add Compazine 10 mg one tablet up to 4 times daily as needed for headache or nausea See your doctor on Friday or Friday for recheck if not improving Follow up care ordered?: Yes Mental Status: Alert Scripts Prochlorperazine Maleate (Compazine) 10 Mg Tablet 10 MG PO QID for N/V/HEADACHE, #30 TAB 0 Refills Prov: PAUL MURCIA MD 08/17/16 HPI - Headache General Chief Complaint: Headache Stated Complaint: HEADACHE Time Seen by Provider: 22:58 Source: patient Exam Limitations: no limitations HPI - Headache Initial Comments Patient has had several hour history of severe right periorbital headache, piercing stabbing sensation, assisted with mild nausea, photophobia, and slight lightheadedness. Patient has had frontal headaches before, but nothing around the eye like this. Patient has significant history of metastatic renal cell carcinoma, and had a normal CT head last April. Occurred At: home Onset: Rapid Duration: 4-6 hrs Pain Scale: Now & Worst: 10/10 Severity/Quality: severe Location: frontal 1 - Severe headache behind the right eye Allergies: Coded Allergies: ibuprofen (Verified Allergy, Mild, DUE TO NEPHRECTOMY, 08/16/16) Penicillins (Verified Allergy, Unknown, 08/16/16) hydromorphone (Verified Adverse Reaction, Unknown, "MAKES ME FEEL LIKE I' M GOING TO ", 08/16/16) morphine (Verified Adverse Reaction, Unknown, "MAKES ME FEEL LIKE I'M GOING TO ", 08/16/16) ondansetron (Verified Adverse Reaction, Unknown, REALLY BAD HEADACHES, ) Past History Past Medical History Metabolic: cancer ENMT: allergies Respiratory: asthma Psychological: anxiety, bipolar, depression, schizophrenia Surgical History General: tonsils Reproductive/: hysterectomy, tubal ligation Family History Family PMH: FOUND: cancer, diabetes Vaccines Hx Influenza Vaccination: No Hx Pneumococcal Vaccination: No Social History Does patient use chewing tobac: No Second Hand Exposure: No Substance Use Type: does not use Alcohol Intake: none Review of Systems Constitutional Constitutional: DENIES: appetite decrease, appetite increase, chills, dizziness , fever, weakness Eyes General: photophobia ENMT Ears: DENIES: pain Hearing: DENIES: hearing loss, tinnitus Balance: DENIES: vertigo Mouth/Throat: DENIES: change in swallowing, change in voice, hoarsness, painful swallowing, sore throat Cardiovascular Cardiac: DENIES: chest pain, dyspnea on exertion Rhythm/Rate: DENIES: irregular beat, palpitations, tachycardia Vascular: DENIES: pedal edema Pulmonary Respiratory: DENIES: cough, dyspnea, pleuritic chest pain GI Upper Abdomen: DENIES: dysphagia, heartburn/indigestion, nausea, pain, vomiting Lower Abdomen: DENIES: blood in stool, constipation, diarrhea, pain General: DENIES: burning, dysuria, frequency, pain, urgency Musculoskeletal General: DENIES: cramps, joint pain, joint swelling, pain, weakness Integumentary Skin: DENIES: rash, sores Neurological General: headache Psychiatric Psychiatric: DENIES: anxiety, depression, nervousness Physical Exam General General Nourishment: well nourished, well developed, appears stated age Distress Description She appears in moderate to significant distress secondary to headache General Body Habitus: well groomed Vitals and Pain First Documented Vital Signs Date Time Temp Pulse Resp B/P Pulse Ox O2 Delivery O2 Flow Rate FiO2 08/16/16 23:02 63 18 147/84 99 Room Air Weight: Kilograms: Height (feet): 5 Height (inches): 5.00 Triage Pain Scale: RN VS reviewed by Provider: Yes Normal Exams: Head: Normocephalic w/o trauma Eyes: Pupils are PERRLA w/ EOMI, No scleral icterus, irritation, or foreign bodies noted ENMT: No facial trauma, nasal exudates, pharyngeal erythema, or exudates are noted Neck: Full range of motion, without adenopathy, JVD, bruits or thyromegaly Chest/Resp: Clear all castillo, with good airflow, and symmetry bilaterally CV: Regular rate and rhythm, without murmur or gallop, Pulses 2+ all extremities, capillary refill, <2 seconds all ext., no pedal edema noted Abdomen: Bowel sounds positive, soft, non-tender, non-distended, no hepatosplenomegaly, masses or bruits noted Lymphatic: No lymphadenopathy, or lymphedema noted Musculoskeletal: No tenderness, or deformity noted, good range of motion, all extremities Integumentary: No rashes, hives, or bruising noted, hair and nails, without abnormality Neurologic: Patient is alert, and oriented, cranial nerves, motor/sensory/ cerebellar, exams w/o gross deficits, to observation Psychiatric: Patient exhibits, appropriate attention, emotion and affect Progress Results/Orders Orders Procedure Category Date Status Time Hydromorphone PHA 08/16/16 Complete (Dilaudid) 23:15 Naproxen (Naprosyn PHA 08/16/16 Complete 500mg) 23:15 Prochlorperazine PHA 08/16/16 Complete (Compazine) 23:15 Ct Head W/O Contrast CT 08/16/16 Logged Diphenhydramine PHA 08/16/16 Complete (Benadryl) 23:15 Medications Current ED Medications Hydromorphone HCl (Dilaudid) 4 mg O ONCE PO Last administered on 08/16/16 23: 22; Start 08/16/16 at 23:15; Stop 08/16/16 at 23:16; Status DC Naproxen (NAPROSYN 500mg) 500 mg O ONCE PO Last administered on 08/16/16 23: 29; Start 08/16/16 at 23:15; Stop 08/16/16 at 23:16; Status DC Prochlorperazine Maleate (Compazine) 10 mg O ONCE PO Last administered on 08/16 23:22; Start 08/16/16 at 23:15; Stop 08/16/16 at 23:16; Status DC Diphenhydramine HCl (Benadryl) 50 mg O ONCE PO Last administered on 08/16/16 23:15; Start 08/16/16 at 23:15; Stop 08/16/16 at 23:16; Status DC Progress Progress Patient elects oral medications, given Dilaudid 4 mg, Naprosyn 500 mg, Benadryl 50 mg, and Compazine 10 mg orally - partial relief, but patient declines further medication at this time CT head without - normal Patient sent with Compazine packed using addition to her routine medications for the next 2-3 days as needed for headache or nausea PAUL MURCIA MD Aug 16, 2016 23:07
--- OUTSIDE RECORDS SUMMARY | 2016-08-16 23:13 | XMS REPORT | Continuity of Care Document ---
Author Author [facility] Organization [facility] Address Unknown Phone Unavailable Care Team Providers Care Iron Cutter Name Role Phone Leonard Margot Primary Care Physician [phone] Source Comments Some departments are not documenting in the electronic medical record. If you do not see the information that you expected, contact Release of Information in the Health Information Management department at [phone] for further assistance in locating additional records.[facility] Active Allergies and Adverse Reactions Allergen Noted [...] MD Surgical Followup 07/17/2016 Documentation Oncology Atif rAnold MD 07/15/2016 Telephone Oncology Atif Arnold MD [...] Arnold MD Surgery 06/25/2016 Office Visit Oncology tAif Arnold MD Metastatic renal cell carcinoma to [...] Taken Blood Pressure 118/63 08/08/2016 3:29 PM PATROL MOTHER Pulse 79 08/08/2016 3:29 PM PATROL MOTHER Temperature 36.4 C (97.6 F) 08/08/2016 3:29 PM PATROL MOTHER Respiratory Rate 18 08/08/2016 3:29 PM PATROL MOTHER Height 1.676 m (5' 5.98") 08/08/2016 3:29 PM PATROL MOTHER Weight 91.717 kg (202 lb 3.2 oz) 08/08/2016 3:29 PM PATROL MOTHER Body Mass Index 32.65 08/08/2016 3:29 PM PATROL MOTHER Oxygen Saturation 99% 08/08/2016 3:29 PM PATROL MOTHER Plan of Care Health Maintenance Due Date Last Done Comments Physical (Comprehensive) 1993 Exam Pertussis Vaccine 1997 Tetanus Vaccine 2003 Cervical Cancer Screening 2007 Influenza Vaccine 01/31/2017 Procedures from Last 3 Months Procedure Name Priority Date/Time Associated Diagnosis Comments ECG-SCAN 07/08/2016 Results for this 2:33 PM PATROL MOTHER procedure are in the results section. RADICAL RESECTION LEFT 07/05/2016 Metastatic renal cell PROXIMAL RADIUS. 12:50 PM PATROL MOTHER carcinoma (HCC) NEUROPLASTY, POSTERIOR INTEROSEOUS NERVE, BICIPITAL [...] - Shabnam Aug 08, 2016 6:12 PM PATROL MOTHER FOREARM 2 VIEWS LEFT 2 views obtained [...] PM) Component Value Range PATHOLOGY REPORT [facility] [email or web address] Catalina Ponce MD, PhD, Director of Anatomic Pathology Department of Pathology and Laboratory Medicine [address] [place] [id number] Surgical Pathology Office: [phone] SURGICAL PATHOLOGY REPORT NAME: DIANA GROSSMAN TEQUITA SURG PATH #: [id number] MR #: [id number] SPECIMEN CLASS: SR BILLING #: [id number] ALT ID #: LOCATION: [facility] DATE OF PROCEDURE: 07/05/2016 AGE: 31 SEX: [...] support the above diagnosis. Pursuant to the [employer] Program at the [facility] Pathology Department, selected slides from this [...] detached from the bone within the container. Mobile Development Manager sections are submitted as follows: A1 Marrow from resection margin. A2-A4 Entire portion of detached soft tissue. A5 Mobile Development Manager sections of bone marrow within bone fungi. (br) sd/07/05/2016 If immunohistochemical stains and/or in situ hybridization are cited in this report, the performance characteristics were determined by the Department of Pathology and Laboratory Medicine of the [facility] ([employer]) in compliance with CLIA'88 regulations. Some of these tests rely on the use of "analyte specific reagents" and are subject to specific labeling requirements by the FDA. Known positive and negative control tissues demonstrate appropriate staining. This testing was developed by the Department of Pathology and Laboratory Medicine of the [facility]. It has not been cleared or [...] advanced into the abdominal aorta. A 6 [place]wandan vascular sheath was advanced over the Bentson wire and attached to a pressurized saline drip. A 5 [place] TOBI 1 catheter was advanced over the [...] mg Procedure Note Interface, Radiant Results - [facility] Jul 04, 2016 5:01 PM PATROL MOTHER Left upper extremity arteriogram and embolization of [...] advanced into the abdominal aorta. A 6 [place] vascular sheath was advanced over the Bentson wire and attached to a pressurized saline drip. A 5 [place] TOBI 1 catheter was advanced over the [...]
--- OUTSIDE RECORDS SUMMARY | 2016-08-16 23:14 | XMS REPORT ---
Author Author [facility] Organization Unknown Address Unknown Phone Unavailable Care Team Providers Care Lay Out Machine Operator Name Role Phone YARY DREW, GHAZAL PP [phone] Reason For Visit Chief Complaint M79.602 LT [...]
--- OUTSIDE RECORDS SUMMARY | 2016-08-16 23:14 | XMS REPORT ---
Author Author [facility] Organization Unknown Address Unknown Phone Unavailable Care Team Providers Care Brickmason Helper Name Role Phone UNASSIGNED DOCTOR , DOCTOR PP [phone] Reason For Visit Chief Complaint RT RENAL [...] MG/DL (65-99 MG/DL) *GFR EST NON AFR ENGLISH >90 ML/MIN *GFR EST AFR AMER >90 [...]
--- OUTSIDE RECORDS SUMMARY | 2016-08-16 23:14 | XMS REPORT ---
Author Author [facility] Organization Unknown Address Unknown Phone Unavailable Care Team Providers Care Company Pilot Name Role Phone UNASSIGNED DOCTOR , DOCTOR PP [phone] Reason For Visit Chief Complaint PRE EMPLOYMENT [...]
--- OUTSIDE RECORDS SUMMARY | 2016-08-16 23:14 | XMS REPORT | Continuity of Care Document ---
Author Author [facility] Organization [facility] Address Unknown Phone Unavailable Allergies Active Description [...] malignant neoplasm of unspecified site 04/15/2016 D [id number] Nicotine dependence, cigarettes, uncomplicated 04/15/2016 D C75223 Cellulitis of abdominal wall 04/15/2016 D [id number] Infection following a procedure, initial encounter 04/15/2016 [...] - 03/27/16 10:17 *GFR EST NON AFR POLISH >90 mL/min NRG *GRFA EST AFR AMER [...] - 04/07/16 01:22 *GFR EST NON AFR POLISH 62 mL/min NRG *GRFA EST AFR AMER [...] Status Pt. Type Provider Facility Loc./Unit Complaint [id number] 03/24/2015 00:00:00 05/06/2016 00: 00:00 DIS Outpatient BHAVESH BURRELL MD
--- OUTSIDE RECORDS SUMMARY | 2016-08-16 23:14 | XMS REPORT ---
Author Author [employer], SYSTEM Organization Unknown Address Unknown Phone Unavailable Care Team Providers Care Director Community Center Name Role Phone UNASSIGNED DOCTOR , DOCTOR PP [phone] Reason For Visit Reason for Visit from [...] support from her boyfriend, children , and samaritan. Pt planning to start chemo soon. Oncologist is in [place]. SW provided education on Palliative Care program [...] she was one day post discharge from [facility] after having a right nephrectomy. She was [...]
--- OUTSIDE RECORDS SUMMARY | 2016-08-16 23:14 | XMS REPORT | Continuity of Care Document ---
Author Author [facility] Organization [facility] Address Unknown Phone Unavailable Care Team Providers Care Reel Cart Operator Name Role Phone YENNIFER DIXON Primary Care Physician [phone] Insurance Providers Payer Name Policy Number Subscriber Name Relationship [facility] [id number] Diana Grossman 19 Self Advance Directives Directive [...] F (96.8 - 99.1) Temperature (Calculated Celsius) 37.78149 degrees C (36.0 - 37.3) Pulse Rate [...] sensitivity is90%. Name: DIANA GROSSMAN Unit #: [id number] : 1985 Sex: F Loc / Svc: ED DOS: 08/28/14 Signed Report #: [id number] DIAGNOSTIC IMAGING REPORT TYPE OF EXAM: CHEST, [...] Encounters Encounter Location Date/Time Registered Emergency Room [facility] 08/28/14 8:46pm Registered Clinic [facility] 08/11/14 1:58pm Departed Emergency Room [facility] 08/01/14 12:10pm Recent Diagnosis
[2016-08-16] MEDS ORDERED: PROCHLORPERAZINE 10 MG TABLET PO ONE (23:15)
[2016-08-16] MEDS ORDERED: HYDROMORPHONE 2 MG TABLET PO ONE (23:15)
[2016-08-16] MEDS ORDERED: NAPROXEN 500 MG TABLET PO ONE (23:15)
--- OUTSIDE RECORDS SUMMARY | 2016-08-16 23:15 | XMS REPORT | Continuity of Care Document ---
Author Author [facility] Organization [facility] Address Unknown Phone Unavailable Care Team Providers Care Template Layout Worker Name Role Phone DAVID ABDALLA MD Primary Care Physician [phone] Insurance Providers Payer Name Policy Number Subscriber Name Relationship [facility] [id number] Diana Grossman 19 Self Advance Directives Directive [...] F (96.8 - 99.1) Temperature (Calculated Celsius) 36.41399 degrees C (36.0 - 37.3) Pulse Rate [...] Encounters Encounter Location Date/Time Departed Emergency Room [facility] 08/01/14 12:10pm Recent Diagnosis
[2016-08-17] MEDS ORDERED: PROC-14 PO (00:25)
[2016-08-17] MEDS ORDERED: PROCHLORPERAZINE 10MG (PrePack) SENT HOME ONE (00:30)
[2016-08-17 00:45] VITALS: BP 141/75; PULSE 60; RESP 18; O2SAT 99
--- NOTE | 2016-08-17 11:29 | DI ---
Indication: ITS.REASON: severe right periorbital headache PROCEDURE: CT HEAD W/O CONTRAST: Encounter: Initial Comparison: None Technique: Axial CT images through the head were performed without contrast. Iterative Reconstruction dose reducing technique was utilized. FINDINGS: The ventricles are of normal size, shape, and configuration for the patient's age. There is no evidence of acute intracranial hemorrhage, midline displacement, or mass effect. The CT attenuation of the brain parenchyma is normal within the cerebellum, brain stem, and cerebral hemispheres. The tympanic cavities and mastoid air cells are free of appreciable disease. There are no definite fractures of the skull base, calvarium, or visualized portion of the midface. IMPRESSION: No CT evidence of acute intracranial abnormality. There is a preliminary report by [employer]. .
== END 2016-08-17 00:45 | disposition home or self-care (01) ==
LOC: ED 22:56
DX: G43.919 Migraine, unspecified, intractable, without status migrainosus (principal)

== ENCOUNTER → 2016-09-05 | Outpatient (CLI) | payer MEDICAID ==
[~2016-09-05] MED LIST changes: +PROC-14 PO
--- NOTE | 2016-09-05 14:41 | DI ---
INDICATION: ITS.REASON: R06.02 SHORTNESS OF BREATH PROCEDURE: CHEST 2-VIEWS UPRIGHT (PA \T\ LAT) Encounter: Initial COMPARISON: Acute abdomen series dated May 04, 2015 FINDINGS: The lungs are clear without evidence of focal abnormal airspace opacity. There is no pleural effusion or pneumothorax. The heart size, mediastinal contours and pulmonary vascularity are within normal limits. There is no significant skeletal abnormality. IMPRESSION: No acute cardiopulmonary disease. .
== END ==
LOC: IMA 13:32
PROVIDERS: ATTEND Radiology Radiation Oncology
DX: R06.02 Shortness of breath (principal)

== ENCOUNTER → 2016-09-05 | Outpatient (CLI) | payer MEDICAID ==
[~2016-09-05] MED LIST changes: +IOHEXOL 350 MG/ML 75ml INJECTION ONE; +NORMAL SALINE 100 ML ONE; +SALINE FLUSH 10ml SYRINGE ONE
--- NOTE | 2016-09-05 17:00 | NUR ---
IV START Pt reports numerous iv attempts. State they get in but vein rodriguez when they flush with NS. 20ga IV to R cephalic vein using ultrasound. Pt tolerated well. Denies pain when site flushed.
--- NOTE | 2016-09-06 08:54 | DI ---
Indication: ITS.REASON: C64.1; C79.51; R06.02 SHORTNESS OF BREATH PROCEDURE: CTA PULMONARY EMBOLI: Encounter: Initial Comparison: Chest CT dated June 14, 2016 Technique: Axial CT pulmonary angiographic phase images were performed through the chest after the administration of intravenous contrast. Coronal and Sagittal MIP reconstructed images were created and reviewed. Automated Exposure Control and Iterative Reconstruction dose reducing techniques were utilized. Contrast: Omnipaque 350 62 mL Findings: Pulmonary arteries: Exam is diagnostic to the subsegmental pulmonary arterial level. No filling defects identified to suggest a pulmonary embolus. Other findings: There is evidence of some air trapping suggesting small airways disease without focal pneumonia. No pleural effusion or pneumothorax. No worrisome pulmonary nodules or masses. No axillary or mediastinal adenopathy. Heart size is normal. No pericardial effusion. The upper abdomen shows no acute findings. Impression: No pulmonary embolus or acute intrathoracic disease process seen. There is a preliminary report by [facility]. .
== END ==
LOC: IMA 15:46
PROVIDERS: ATTEND Internal Medicine Medical Oncology
DX: R06.02 Shortness of breath (principal); C64.1 Malignant neoplasm of right kidney, except renal pelvis; C79.51 Secondary malignant neoplasm of bone
CPT/HCPCS: 71275; J7050; Q9967

== ENCOUNTER 2016-09-27 21:54 | Emergency (ER) | payer MEDICAID ==
[~2016-09-27] VITALS: Ht 165.1 cm; Wt 68.9 kg
[~2016-09-27 21:54] MED LIST changes: -IOHEXOL 350 MG/ML 75ml INJECTION ONE; -NORMAL SALINE 100 ML ONE; -SALINE FLUSH 10ml SYRINGE ONE
--- OUTSIDE RECORDS SUMMARY | 2016-09-27 21:58 | XMS REPORT ---
Author Author [employer] Organization Unknown Address Unknown Phone Unavailable Care Team Providers Care Ice Hockey Coach Name Role Phone UNASSIGNED DOCTOR , DOCTOR PP [phone] Reason For Visit Chief Complaint PRE EMPLOYMENT [...]
--- OUTSIDE RECORDS SUMMARY | 2016-09-27 21:58 | XMS REPORT ---
Author Author Margot Valle [facility] Address [address] [place], [place] [id number] Care Team Providers Care Director Life Insurance Name Role Phone Margot Valle Unavailable [phone] PROBLEMS Type Condition ICD9-CM Code [id number] Code Onset Dates Condition Status SNOMED Code Problem Renal cell carcinoma C64.9 Active [id number] ALLERGIES Unknown Allergies SOCIAL HISTORY No smoking Hx information available PLAN OF CARE VITAL SIGNS MEDICATIONS Unknown Medications RESULTS No Results PROCEDURES No Known procedures IMMUNIZATIONS No Known Immunizations
--- OUTSIDE RECORDS SUMMARY | 2016-09-27 21:58 | XMS REPORT | Continuity of Care Document ---
Author Author [facility] Organization [facility] Address Unknown Phone Unavailable Allergies Active Description [...] malignant neoplasm of unspecified site 04/15/2016 D G36583 Nicotine dependence, cigarettes, uncomplicated 04/15/2016 D G96994 Cellulitis of abdominal wall 04/15/2016 D [id number] Infection following a procedure, initial encounter 04/15/2016 [...] - 03/27/16 10:17 *GFR EST NON AFR INDIAN >90 mL/min NRG *GRFA EST AFR AMER [...] - 04/07/16 01:22 *GFR EST NON AFR INDIAN 62 mL/min NRG *GRFA EST AFR AMER [...] Status Pt. Type Provider Facility Loc./Unit Complaint [id number] 03/24/2015 00:00:00 05/06/2016 00: 00:00 DIS Outpatient BHAVESH BURRELL MD
--- OUTSIDE RECORDS SUMMARY | 2016-09-27 21:58 | XMS REPORT ---
Author Author GENERATED, SYSTEM Organization Unknown Address Unknown Phone Unavailable Care Team Providers Care Croze Cutter Helper Name Role Phone UNASSIGNED DOCTOR , DOCTOR PP [phone] Reason For Visit Chief Complaint RT RENAL [...] MG/DL (65-99 MG/DL) *GFR EST NON AFR SWISS >90 ML/MIN *GFR EST AFR AMER >90 [...]
--- OUTSIDE RECORDS SUMMARY | 2016-09-27 21:58 | XMS REPORT ---
Author Author Margot Valle Organization [facility] Address [address] [place], [place] [address] Care Team Providers Care Prepared Foods Team Leader Name Role Phone Margot Valle Unavailable [phone] PROBLEMS Type Condition ICD9-CM Code [id number] Code Onset Dates Condition Status SNOMED Code Problem Renal cell carcinoma C64.9 Active 920889719 Assessment Pain and swelling of left upper extremity M79.602 May, Active 91603835 ALLERGIES Substance Reaction Event Type Date Status Penicillin G Potassium Unknown Drug Allergy May, Active SOCIAL HISTORY No smoking Hx information available PLAN OF CARE Activity Details Pending Test Ultrasound : Doppler : Veins Arm Left 1 Week,Reason: VITAL SIGNS Height 65 in 2016-05-29 Weight 194.4 lbs 2016-05-29 BMI 32.35 kg/m2 2016-05-29 Temperature 97.6 degrees Fahrenheit 2016-05-29 Heart Rate 94 /min 2016-05-29 Respiratory Rate 18 /min 2016-05-29 Oximetry 96 % 2016-05-29 Blood pressure systolic 116 mm Hg 2016-05-29 Blood pressure diastolic 74 mm Hg 2016-05-29 MEDICATIONS Medication Instructions Dosage Frequency Start Date End Date Duration Status Percocet 5-325 MG Orally every 6 hrs 1 tablet as needed 6h May, Jun, 07 days Active RESULTS Name Result Date Reference Range Ultrasound : Doppler : Veins Arm Left 2016-05-30 PROCEDURES Procedure Date Ordered Related Diagnosis Body Site OFFICE VISIT EST PATIENT LEVEL 3 May 29, 2016 IMMUNIZATIONS No Known Immunizations
--- OUTSIDE RECORDS SUMMARY | 2016-09-27 21:58 | XMS REPORT | Continuity of Care Document ---
Author Author [facility] Organization [facility] Address Unknown Phone Unavailable Care Team Providers Care Monotype Mechanic Name Role Phone Leonard Margot Primary Care Physician [phone] Source Comments Some departments are not documenting in the electronic medical record. If you do not see the information that you expected, contact Release of Information in the Health Information Management department at [phone] for further assistance in locating additional records.[facility] Active Allergies and Adverse Reactions Allergen [...] Telephone Oncology Atif Arnold MD Post-op 07/05/2016 Telephone Oncology Atif Arnold MD Other 07/05/2016 Documentation Oncology ArriolaSteph 07/05/2016 Anesthesia Sofia Ibrahim MD Event 07/05/2016 Surgery Atif Arnold MD RADICAL RESECTION LEFT PROXIMAL RADIUS. NEUROPLASTY, POSTERIOR INTEROSEOUS NERVE, BICIPITAL TENDON TENODESIS. 07/04/2016 Hospital Radiology Atif Arnold MD Encounter Rosana Smith RN Lind, Buzz Smith MD 07/01/2016 Telephone Oncology Atif Arnold MD Surgery Social History Tobacco Use Types Packs/Day Years Used Date Former Smoker 15 Quit: 06/02/2009 Smokeless Tobacco: Never Used Alcohol Use Drinks/Week oz/Week Comments No Last Filed Vital Signs Vital Sign Reading Time Taken Blood Pressure 118/63 08/08/2016 3:29 PM SOCKET WELDER HELPER Pulse 79 08/08/2016 3:29 PM SOCKET WELDER HELPER Temperature 36.4 C (97.6 F) 08/08/2016 3:29 PM SOCKET WELDER HELPER Respiratory Rate 18 08/08/2016 3:29 PM SOCKET WELDER HELPER Height 1.676 m (5' 5.98") 08/08/2016 3:29 PM SOCKET WELDER HELPER Weight 91.717 kg (202 lb 3.2 oz) 08/08/2016 3:29 PM SOCKET WELDER HELPER Body Mass Index 32.65 08/08/2016 3:29 PM SOCKET WELDER HELPER Oxygen Saturation 99% 08/08/2016 3:29 PM SOCKET WELDER HELPER Plan of Care Health Maintenance Due Date Last Done Comments Physical (Comprehensive) 1993 Exam Pertussis Vaccine 1997 Tetanus Vaccine 2003 Cervical Cancer Screening 2007 Influenza Vaccine 01/31/2017 Procedures from Last 3 Months Procedure Name Priority Date/Time Associated Diagnosis Comments ECG-SCAN 07/08/2016 Results for this 2:33 PM SOCKET WELDER HELPER procedure are in the results section. RADICAL RESECTION LEFT 07/05/2016 Metastatic renal cell PROXIMAL RADIUS. 12:50 PM SOCKET WELDER HELPER carcinoma (HCC) NEUROPLASTY, POSTERIOR INTEROSEOUS NERVE, BICIPITAL [...] - [place] Aug 08, 2016 6:12 PM SOCKET WELDER HELPER FOREARM 2 VIEWS LEFT 2 views obtained [...] PM) Component Value Range PATHOLOGY REPORT [facility] [email or web address] Catalina Ponce MD, PhD, Director of Anatomic Pathology Department of Pathology and Laboratory Medicine [address] [place] [id number] Surgical Pathology Office: [phone] SURGICAL PATHOLOGY REPORT NAME: DIANA GROSSMAN SURG PATH #: [id number] MR #: [id number] SPECIMEN CLASS: SR BILLING #: [id number] ALT ID #: LOCATION: [facility] DATE OF PROCEDURE: 07/05/2016 AGE: [...] support the above diagnosis. Pursuant to the Inner Tube Inserter Program at the [facility] Pathology Department, selected slides from this [...] detached from the bone within the container. Pug Machine Operator sections are submitted as follows: A1 Marrow from resection margin. A2-A4 Entire portion of detached soft tissue. A5 Pug Machine Operator sections of bone marrow within bone fungi. ([facility]) 07/05/2016 If immunohistochemical stains and/or in situ hybridization are cited in this report, the performance characteristics were determined by the Department of Pathology and Laboratory Medicine of the [facility] ([employer]) in compliance with CLIA'88 regulations. Some of these tests rely on the use of "analyte specific reagents" and are subject to specific labeling requirements by the FDA. Known positive and negative control tissues demonstrate appropriate staining. This testing was developed by the Department of Pathology and Laboratory Medicine of the [facility]. It has not been cleared or [...] advanced into the abdominal aorta. A 6 Korean vascular sheath was advanced over the Bentson wire and attached to a pressurized saline drip. A 5 Korean TOBI 1 catheter was advanced over the [...] mg Procedure Note Interface, Radiant Results - [facility] Jul 04, 2016 5:01 PM SOCKET WELDER HELPER Left upper extremity arteriogram and embolization of [...] advanced into the abdominal aorta. A 6 Korean vascular sheath was advanced over the Bentson wire and attached to a pressurized saline drip. A 5 Korean TOBI 1 catheter was advanced over the [...]
--- OUTSIDE RECORDS SUMMARY | 2016-09-27 21:58 | XMS REPORT ---
Author Author Margot Valle Organization [facility] Address [address] [place], [place] [address] Care Team Providers Care Infantry Indirect Fire Crewmember Name Role Phone Margot Valle Unavailable [phone] PROBLEMS Unknown Problems ALLERGIES Unknown Allergies SOCIAL HISTORY No smoking Hx information available PLAN OF CARE VITAL SIGNS MEDICATIONS Unknown Medications RESULTS No Results PROCEDURES No Known procedures IMMUNIZATIONS No Known Immunizations
--- OUTSIDE RECORDS SUMMARY | 2016-09-27 21:58 | XMS REPORT ---
Author Author GENERATED, SYSTEM Organization Unknown Address Unknown Phone Unavailable Care Team Providers Care E Commerce Specialist Name Role Phone UNASSIGNED DOCTOR , DOCTOR PP [phone] Reason For Visit Reason for Visit from [...] support from her boyfriend, children , and cheondoism. Pt planning to start chemo soon. Oncologist is in [place]. SW provided education on Palliative Care program [...] she was one day post discharge from [facility] after having a right [...]
--- OUTSIDE RECORDS SUMMARY | 2016-09-27 21:59 | XMS REPORT ---
Author Author GENERATED, SYSTEM Organization Unknown Address Unknown Phone Unavailable Care Team Providers Care Survey Crew Chief Name Role Phone YARY DREW, GHAZAL PP [phone] Reason For Visit Chief Complaint M79.602 LT [...]
--- OUTSIDE RECORDS SUMMARY | 2016-09-27 21:59 | XMS REPORT | Continuity of Care Document ---
Author Author Pool [facility] Organization [facility] Address Unknown Phone Unavailable Care Team Providers Care Sueding And Buffing Machine Operator Name Role Phone YENNIFER DIXON Primary Care Physician [phone] Insurance Providers Payer Name Policy Number Subscriber Name Relationship [facility] [id number] Dinaa Grossman 19 Self Advance Directives Directive Response [...] F (96.8 - 99.1) Temperature (Calculated Celsius) 37.48272 degrees C (36.0 - 37.3) Pulse Rate [...] sensitivity is90%. Name: DIANA GROSSMAN Unit #: [id number] : 1985 Sex: F Loc / Svc: ED DOS: 08/28/14 Signed Report #: [id number] DIAGNOSTIC IMAGING REPORT TYPE OF EXAM: CHEST, [...] Encounters Encounter Location Date/Time Registered Emergency Room [facility] 08/28/14 8:46pm Registered Clinic [facility] 08/11/14 1:58pm Departed Emergency Room [facility] 08/01/14 12:10pm Recent Diagnosis
--- OUTSIDE RECORDS SUMMARY | 2016-09-27 21:59 | XMS REPORT | Continuity of Care Document ---
Author Author [facility] Organization [facility] Address Unknown Phone Unavailable Care Team Providers Care Molded Rubber Goods Cutter Name Role Phone YENNIFER DIXON Primary Care Physician [phone] Insurance Providers Guarantor Diana Grossman Address [address] [place] [address] Email [email or web address] Payer [facility] Plan Policy Number [id number] Subscriber's Name Grossman,Diana T Relationship 18 Self Effective Date 16 Expiration Date 16 Advance Directives Directive Response Recorded Date/Time Advanced Directives Type None 08/16/16 11:02pm Chief Complaint and Reason for Visit Chief Complaint Headache Reason for Visit Migraine headache Problems Active Problems Medical Problem Onset Date Status Bronchitis with asthma, acute Unknown Acute Diarrhea Unknown Acute Exacerbation of intermittent asthma Unknown Acute History of asthma Unknown Acute Rash and other nonspecific skin eruption Unknown Acute Renal cell carcinoma of right kidney Unknown URI (upper respiratory infection) Unknown Acute Viral illness Unknown Acute Viral syndrome Unknown Acute Past Problems Medical Problem Onset Date Left elbow pain Unknown Lytic bone lesions on xray Unknown Migraine headache Unknown Postoperative cellulitis of surgical wound Unknown [...] FRIEND'S INHALER, NOT HER OWN 08/26/15 Hydrocodone/Acetaminophen ([place] 5-325 Tablet) 5-325 Tablet 1-2 Tab Oral Four Times Daily as needed for Pain 30 06/10/16 Hydromorphone Hcl (Dilaudid) 2 Mg Tablet 1-2 Tab Oral Every 4-6 Hours 60 Tablet 08/04/16 Oxycodone Hcl/Acetaminophen (Oxycodone-Acetaminophen 5-325) 5-325 Tablet 28 06/09/16 Prochlorperazine Maleate (Compazine) 10 Mg Tablet 10 Mg Oral Four Times Daily for N/V/Headache 30 Tablet 08/17/16 Past Home Medications Medication Directions Ordered Status Acetaminophen/Hydrocodone Bitart ([place] 5-325 Tablet) 1 Each Tablet, 0.5 Tab [...] Onset Date Status Hx Substance Use No 08/16/2016 11:05pm Not Applicable Not Applicable Hx Alcohol Use No 08/16/2016 11:05pm Not Applicable Not Applicable Has the pt used tobacco in the last 12 months Yes 10/05/2014 7:16am Not Applicable Not Applicable Tobacco Usage smoke 08/29/2014 2:15am Not Applicable Not Applicable Query Response Start Date Stop Date Smoking Status Current every day smoker Hospital Discharge Instructions No hospital discharge instructions. Plan of Care Discharge Date 08/17/16 12:45am Disposition 01 DISCHARGED HOME, SELF-CARE Condition at Discharge Improved Instructions/Education Provided Migraine Headache (ED) Prescriptions See Medication Section Referrals SHREE DREW Address: [address] [address] YENNIFER DIXON Address: [address] [place] [address] Additional Instructions/Education Take your routine medications for pain as needed Add Compazine 10 mg one tablet up to 4 times daily as needed for headache or nausea See your doctor on Friday or Friday for recheck if not improving Care Plan and Goals Physician Care Plan Problem: Migrainous headache Goal: Follow up with primary care provider Instructions: Take medications and follow care plan as discussed/written Take your routine medications for pain as needed Add Compazine 10 mg one tablet up to 4 times daily as needed for headache or nausea See your doctor on Friday or Friday for recheck if not improving Functional Status No functional status results. Allergies, Adverse Reactions, Alerts Allergen Type Severity Reaction Status Last Updated Penicillin Allergy Unknown Active 08/16/16 Morphine Adverse Reaction Unknown "MAKES ME FEEL LIKE I'M GOING TO " Active 08/16/16 Ibuprofen Allergy Mild DUE TO NEPHRECTOMY Active 08/16/16 Hydromorphone Adverse Reaction Unknown "MAKES ME FEEL LIKE I'M GOING TO " Active 08/16/16 Ondansetron Adverse Reaction Unknown REALLY BAD HEADACHES Active 08/16/16 Immunizations Query Response on File Recorded Date/Time Hx Influenza Vaccination No 10/03/14 9:17am Hx Pneumococcal Vaccination No 10/03/14 9:17am Hx Influenza Vaccination No 10/03/14 9:17am DTaP Vaccine History 04/1608/16/16 11:05pm Influenza Vaccine Hx FALL 201508/16/16 11:05pm Tdap Vaccine Hx NO BROKEN SKIN 06/09/16 10:07pm Vital Signs Acute Vital Signs Vital Response Date/Time Temperature (Fahrenheit) 98.4 deg F (96.8 - 99.1) 08/05/2016 12:05am Temperature (Calculated Celsius) 36.53860 degrees C (36.0 - 37.3) 08/05/2016 12:05am Pulse Rate (adult) 60 bpm (60 - 100) 08/17/2016 12:45am Respiratory Rate 18 breaths/min (10 - 20) 08/17/2016 12:45am O2 Sat by Pulse Oximetry 99 % (90 - 100) 08/17/2016 12:45am Blood Pressure 141/75 mm Hg 08/17/2016 12:45am Height (Feet) 5 feet 08/16/2016 11:02pm Height (Inches) 5.00 inches 08/16/2016 11:02pm Weight (Kilograms) 90.400 kg 08/16/2016 11:02pm Body Mass Index (BMI) 33.0 08/16/2016 11:02pm Results Laboratory Results Test Name Result Units Flags Reference Collection Date/Time Result Date/ Time Comments Prothromb Time International Ratio 1.03 0.76-1.04 06/27/2016 12:03pm 06/27/2016 12:20pm THERAPUTIC RANGE=2.00-3.00 FOR ANTI-THROMBOSIS THERAPUTIC RANGE=2.50-3.50 FOR IMPLANTED VALVE Activated Partial Thromboplast Time 36.1 SEC H 24-36 06/27/2016 12:03pm 06/27/2016 12:20pm Thyroid Stimulating Hormone (TSH) 1.84 MIU/L 0.47-4.68 06/27/2016 12: 03pm 06/27/2016 2:21pm White Blood Count 16.1 T/MM3 H 4.5-11.0 08/07/2016 10:59am 08/07/2016 11 :27am Red Blood Count 5.34 M/MM3 H 4.00-5.20 08/07/2016 10:59am 08/07/2016 11: 27am Hemoglobin 15.0 GM/DL 12-16 08/07/2016 10:59am 08/07/2016 11:27am Hematocrit 44.4 % 36-46 08/07/2016 10:59am 08/07/2016 11:27am Mean Corpuscular Volume 83.1 UM3 80-100 08/07/2016 10:59am 08/07/2016 11:27am Mean Corpuscular Hemoglobin 28.1 UUG 26-34 08/07/2016 10:59am 2016 11:27am Mean Corpuscular Hemoglobin Concent 33.8 GM/DL 31-37 08/07/2016 10:59am 08/07/2016 11:27am RDW Standard Deviation 42.0 FL 36.9-50.2 08/07/2016 10:59am 08/07/2016 11:27am Platelet Count 313 T/MM3 130-400 08/07/2016 10:59am 08/07/2016 11:27am Mean Platelet Volume 9.1 UM3 L 9.4-12.4 08/07/2016 10:59am 08/07/2016 11 :27am Neutrophils (%) (Auto) 58.0 % 33-66 07/01/2016 [...] T/MM3 0.00-0.03 07/01/2016 12: 54pm 07/01/2016 1:02pm Neutrophils % (Manual) 67.0 % H 33-66 08/07/2016 10:59am 08/07/2016 11: 34am Lymphocytes % (Manual) 26.0 % 23-45 08/07/2016 10:59am 08/07/2016 11: 34am Monocytes % (Manual) 6.0 % 0-9.0 08/07/2016 10:59am 08/07/2016 11:34am Eosinophils % (Manual) 1.0 % 0-4 08/07/2016 10:59am 08/07/2016 11:34am Absolute Neutrophils (Manual) 10.8 T/MM3 H 1.8-7.7 08/07/2016 10:59am 11:34am Lymphocytes # (Manual) 4.2 T/MM3 1-4.8 08/07/2016 10:59am 08/07/2016 11 :34am Monocytes # (Manual) 1.0 T/MM3 H 0-0.8 08/07/2016 10:59am 08/07/2016 11: 34am Eosinophils # (Manual) 0.2 T/MM3 0-0.5 08/07/2016 10:59am 08/07/2016 11 :34am Red Cell Morphology Comment NORMAL 08/07/2016 10:59am 08/07/2016 11 :34am Icterus Index < 2 0-7 08/07/2016 10:59am 08/07/2016 11:14am Chemistry Specimen Hemolysis 17 0-25 08/07/2016 10:59am 08/07/2016 11 :14am 0-25: Specimen Exhibited No Hemolysis. Turbidity < 20 0-20 08/07/2016 10:59am 08/07/2016 11:14am Sodium Level 143 MEQ/L 134-144 08/07/2016 10:59am 08/07/2016 11:14am Potassium Level 4.2 MEQ/L 3.6-5 08/07/2016 10:59am 08/07/2016 11:14am Chloride Level 106 MEQ/L 98-107 08/07/2016 10:59am 08/07/2016 11:14am Carbon Dioxide Level 25 MEQ/L 22-30 08/07/2016 10:59am 08/07/2016 11: 14am Anion Gap 12 MEQ/L 5-15 08/07/2016 10:59am 08/07/2016 11:14am Blood Urea Nitrogen 17.0 MG/DL 7-17 08/07/2016 10:59am 08/07/2016 11: 14am Creatinine 0.9 MG/DL 0.7-1.2 08/07/2016 10:59am 08/07/2016 11:14am BUN/Creatinine Ratio 19 RATIO 6-26 08/07/2016 10:59am 08/07/2016 11: 14am Glomerular Filtration Rate Calc 74 08/07/2016 10:59am 08/07/2016 11 :14am Glucose Level 120 MG/DL H 65-110 08/07/2016 10:59am 08/07/2016 11:14am Calculated Osmolality 278 MOSM/KG 261-280 08/07/2016 10:59am 2016 11:14am Calcium Level 9.7 MG/DL 8.4-10.2 08/07/2016 10:59am 08/07/2016 11:14am Total Bilirubin 0.70 MG/DL 0.20-1.30 08/07/2016 10:59am 08/07/2016 11: 14am Alkaline Phosphatase 86 U/L 38-126 08/07/2016 10:59am 08/07/2016 11: 14am Total Protein 7.7 G/DL 6.3-8.2 08/07/2016 10:59am 08/07/2016 11:14am Albumin 4.5 G/DL 3.5-5.0 08/07/2016 10:59am 08/07/2016 11:14am Globulin 3.2 G/DL 2.4-3.6 08/07/2016 10:59am 08/07/2016 11:14am Albumin/Globulin Ratio 1.4 RATIO 1.1-2.2 08/07/2016 10:59am 08/07/2016 11:14am Aspartate Amino Transf (AST/SGOT) 23 U/L 14-36 08/07/2016 10:59am 08/07 11:14am Alanine Aminotransferase (ALT/SGPT) 43 U/L 9-52 08/07/2016 10:59am 12/2016 11:14am C-Reactive Protein 7.9 MG/L 0-9 07/01/2016 12:54pm 07/01/2016 1:31pm Magnesium Level 1.9 MG/DL 1.6-2.3 08/07/2016 10:59am 08/07/2016 11: 14am Plasma Lactate 1.0 MMOL/L 0.6-2.2 07/01/2016 12:54pm [...] Completed 06/09/16 Emergency dept visit Completed 06/09/16 197611"DEXAMETHASONE, ORAL, 0.25 MG" Completed 06/09/16 Routine venipuncture Completed 06/14/16 Ct thorax w/dye Completed 06/14/16 Ct abd & pelv w/contrast Completed 06/14/16 Bone imaging whole body Completed 06/14/16 Comprehen metabolic panel Completed 06/14/16 847901"TECHNETIUM TC-99M MEDRONATE, DIAGNOSTIC, PER STUDY DO Completed 956227"INFUSION, NORMAL SALINE SOLUTION , 250 CC" Completed 06/14/16 [id number]"LOW OSMOLAR CONTRAST MATERIAL, 300-399 MG/ML IODINE C [...] 07/26/16 X-ray exam of ankle Completed 07/26/16 Emergency dept visit Completed 08/04/16 Encounters Encounter Location Arrival/Admit Date Discharge/Depart Date Attending Provider Departed Emergency Room [facility] 08/16/16 10:56pm 08/17/16 12: 45am PAUL MURCIA MD Registered [facility] 08/15/16 4:37pm MALAIKA DANIEL MD Registered [facility] 08/07/16 10:43am STEPHANIE CHAIDEZ MD Departed Emergency Room [facility] 08/04/16 10:57pm 08/05/16 12: 05am PAUL MURCIA MD Registered [facility] 07/26/16 10:42am STEPHANIE CHAIDEZ MD Registered [facility] 07/18/16 9:12am STEPHANIE CHAIDEZ MD Registered [facility] 06/27/16 11:24am STEPHANIE CHAIDEZ MD Registered [facility] 06/14/16 10:11am STEPHANIE CHAIDEZ MD Departed Emergency Room [facility] 06/09/16 8:58pm 06/10/16 1: 12am PAUL MURCIA MD Recent Diagnosis
--- OUTSIDE RECORDS SUMMARY | 2016-09-27 21:59 | XMS REPORT | Continuity of Care Document ---
Author Author [facility] Organization [facility] Address Unknown Phone Unavailable Care Team Providers Care Electric Brain Wave Equipment Mechanic Name Role Phone DAVID ABDALLA MD Primary Care Physician [phone] Insurance Providers Payer Name Policy Number Subscriber Name Relationship [facility] [id number] Diana Grossman 19 Self Advance Directives Directive [...] F (96.8 - 99.1) Temperature (Calculated Celsius) 36.17665 degrees C (36.0 - 37.3) Pulse Rate [...] Encounters Encounter Location Date/Time Departed Emergency Room [facility] 08/01/14 12:10pm Recent Diagnosis
[2016-09-27 22:05] VITALS: TEMP 97.7; Ht 165.1 cm; Wt 68.9 kg
--- OUTSIDE RECORDS SUMMARY | 2016-09-27 22:12 | XMS REPORT | Continuity of Care Document ---
Author Author [facility] Organization [facility] Address Unknown Phone Unavailable Care Team Providers Care Food Storeroom Clerk Name Role Phone Leonard Margot Primary Care Physician [phone] Source Comments Some departments are not documenting in the electronic medical record. If you do not see the information that you expected, contact Release of Information in the Health Information Management department at [phone] for further assistance in locating additional records.[facility] Active Allergies and Adverse Reactions [...] Taken Blood Pressure 118/63 08/08/2016 3:29 PM NUTRITIONAL YEAST SUPERVISOR Pulse 79 08/08/2016 3:29 PM NUTRITIONAL YEAST SUPERVISOR Temperature 36.4 C (97.6 F) 08/08/2016 3:29 PM NUTRITIONAL YEAST SUPERVISOR Respiratory Rate 18 08/08/2016 3:29 PM NUTRITIONAL YEAST SUPERVISOR Height 1.676 m (5' 5.98") 08/08/2016 3:29 PM NUTRITIONAL YEAST SUPERVISOR Weight 91.717 kg (202 lb 3.2 oz) 08/08/2016 3:29 PM NUTRITIONAL YEAST SUPERVISOR Body Mass Index 32.65 08/08/2016 3:29 PM NUTRITIONAL YEAST SUPERVISOR Oxygen Saturation 99% 08/08/2016 3:29 PM NUTRITIONAL YEAST SUPERVISOR Plan of Care Health Maintenance Due Date Last Done Comments Physical (Comprehensive) 1993 Exam Pertussis Vaccine 1997 Tetanus Vaccine 2003 Cervical Cancer Screening 2007 Influenza Vaccine 01/31/2017 Procedures from Last 3 Months Procedure Name Priority Date/Time Associated Diagnosis Comments ECG-SCAN 07/08/2016 Results for this 2:33 PM NUTRITIONAL YEAST SUPERVISOR procedure are in the results section. RADICAL RESECTION LEFT 07/05/2016 Metastatic renal cell PROXIMAL RADIUS. 12:50 PM NUTRITIONAL YEAST SUPERVISOR carcinoma (HCC) NEUROPLASTY, POSTERIOR INTEROSEOUS NERVE, BICIPITAL [...] - Shabnam Aug 08, 2016 6:12 PM NUTRITIONAL YEAST SUPERVISOR FOREARM 2 VIEWS LEFT 2 views obtained [...] PM) Component Value Range PATHOLOGY REPORT [facility] [email or web address] Stuff Catalina Ponce MD, PhD, Director of Anatomic Pathology Department of Pathology and Laboratory Medicine [address] [place] [id number] Surgical Pathology Office: [phone] SURGICAL PATHOLOGY REPORT NAME: DIANA GROSSMAN SURG PATH #: [id number] MR #: [id number] SPECIMEN CLASS: SR BILLING #: [id number] ALT ID #: LOCATION: [facility] [place] DATE OF PROCEDURE: 07/05/2016 AGE: 31 SEX: [...] support the above diagnosis. Pursuant to the Diesel Engine I Pipe Fitter Program at the [facility] Pathology Department, selected slides from this case [...] detached from the bone within the container. Conveyor [employer] sections are submitted as follows: A1 Marrow from resection margin. A2-A4 Entire portion of detached soft tissue. A5 Conveyor T[employer] sections of bone marrow within bone fungi. ([employer] [facility]) 07/05/2016 If immunohistochemical stains and/or in situ hybridization are cited in this report, the performance characteristics were determined by the Department of Pathology and Laboratory Medicine of the [facility] ([employer]) in compliance with CLIA'88 regulations. Some of these tests rely on the use of "analyte specific reagents" and are subject to specific labeling requirements by the FDA. Known positive and negative control tissues demonstrate appropriate staining. This testing was developed by the Department of Pathology and Laboratory Medicine of the [facility]. It has not been cleared [...] advanced into the abdominal aorta. A 6 Slovenian vascular sheath was advanced over the Bentson wire and attached to a pressurized saline drip. A 5 Slovenian TOBI 1 catheter was advanced over the [...] mg Procedure Note Interface, Radiant Results - [facility] Jul 04, 2016 5:01 PM NUTRITIONAL YEAST SUPERVISOR Left upper extremity arteriogram and embolization of [...] advanced into the abdominal aorta. A 6 Slovenian vascular sheath was advanced over the Bentson wire and attached to a pressurized saline drip. A 5 Slovenian TOBI 1 catheter was advanced over the [...]
--- OUTSIDE RECORDS SUMMARY | 2016-09-27 22:12 | XMS REPORT ---
Author Author [facility] Organization Unknown Address Unknown Phone Unavailable Care Team Providers Care Bond Underwriter Name Role Phone UNASSIGNED DOCTOR , DOCTOR PP [phone] Reason For Visit Reason for Visit from [...] support from her boyfriend, children , and holiness. Pt planning to start chemo soon. Oncologist is in [place]. SW provided education on Palliative Care program [...] she was one day post discharge from [facility] after having a right nephrectomy. She [...]
--- OUTSIDE RECORDS SUMMARY | 2016-09-27 22:12 | XMS REPORT ---
Author Author [facility] Organization Unknown Address Unknown Phone Unavailable Care Team Providers Care Title Insurance Sales Representative Name Role Phone UNASSIGNED DOCTOR , DOCTOR PP [phone] Reason For Visit Chief Complaint PRE EMPLOYMENT [...]
--- OUTSIDE RECORDS SUMMARY | 2016-09-27 22:13 | XMS REPORT ---
Author Author [facility] Organization Unknown Address Unknown Phone Unavailable Care Team Providers Care Loss Prevention Analyst Name Role Phone YARY DREW, GHAZAL PP [phone] Reason For Visit Chief Complaint M79.602 LT [...]
--- OUTSIDE RECORDS SUMMARY | 2016-09-27 22:13 | XMS REPORT | Continuity of Care Document ---
Author Author [facility] Organization [facility] Address Unknown Phone Unavailable Care Team Providers Care Security Project Manager Name Role Phone YENNIFER DIXON Primary Care Physician [phone] Insurance Providers Payer Name Policy Number Subscriber Name Relationship [facility] [id number] Diana Grossman 19 Self Advance Directives Directive [...] F (96.8 - 99.1) Temperature (Calculated Celsius) 37.60283 degrees C (36.0 - 37.3) Pulse Rate [...] sensitivity is90%. Name: DIANA GROSSMAN Unit #: [id number] : 1985 Sex: F Loc / Svc: ED DOS: 08/28/14 Signed Report #: [id number] DIAGNOSTIC IMAGING REPORT TYPE OF EXAM: CHEST, [...] Encounters Encounter Location Date/Time Registered Emergency Room [facility] 08/28/14 8:46pm Registered Clinic [facility] 08/11/14 1:58pm Departed Emergency Room [facility] 08/01/14 12:10pm Recent Diagnosis
--- OUTSIDE RECORDS SUMMARY | 2016-09-27 22:13 | XMS REPORT | Continuity of Care Document ---
Author Author [facility] Organization [facility] Address Unknown Phone Unavailable Allergies Active Description [...] malignant neoplasm of unspecified site 04/15/2016 D [id number] Nicotine dependence, cigarettes, uncomplicated 04/15/2016 D [id number] Cellulitis of abdominal wall 04/15/2016 D [id number] Infection following a procedure, initial encounter 04/15/2016 [...] - 03/27/16 10:17 *GFR EST NON AFR BURMESE >90 mL/min NRG *GRFA EST AFR AMER [...] - 04/07/16 01:22 *GFR EST NON AFR BURMESE 62 mL/min NRG *GRFA EST AFR AMER [...] Status Pt. Type Provider Facility Loc./Unit Complaint [id number] 03/24/2015 00:00:00 05/06/2016 00: 00:00 DIS Outpatient BHAVESH BURRELL MD
--- OUTSIDE RECORDS SUMMARY | 2016-09-27 22:13 | XMS REPORT | Continuity of Care Document ---
Author Author [facility] Organization [facility] Address Unknown Phone Unavailable Care Team Providers Care Master Sonar Technician Name Role Phone DAVID ABDALLA MD Primary Care Physician [phone] Insurance Providers Payer Name Policy Number Subscriber Name Relationship [facility] [id number] Diana Grossman 19 Self Advance Directives Directive [...] F (96.8 - 99.1) Temperature (Calculated Celsius) 36.12130 degrees C (36.0 - 37.3) Pulse Rate [...] Encounters Encounter Location Date/Time Departed Emergency Room [facility] 08/01/14 12:10pm Recent Diagnosis
--- OUTSIDE RECORDS SUMMARY | 2016-09-27 22:13 | XMS REPORT ---
Author Author [facility] Organization Unknown Address Unknown Phone Unavailable Care Team Providers Care Waste Handling Technician Name Role Phone UNASSIGNED DOCTOR , DOCTOR PP [phone] Reason For Visit Chief Complaint RT RENAL [...] MG/DL (65-99 MG/DL) *GFR EST NON AFR TUVALUAN >90 ML/MIN *GFR EST AFR AMER >90 [...]
[2016-09-27] MEDS ORDERED: PAZO200T PO (22:17)
--- NOTE | 2016-09-27 22:29 | NUR ---
DR COSTELLO WITH PT
--- NOTE | 2016-09-27 23:20 | ERPDOC ---
Departure Disposition Decision Date: Sep 27, 2016 Disposition Decision Time: 23:19 Disposition: 01 DISCHARGED HOME, SELF-CARE Impression Impression Impression: Primary Impression: Headache Qualified Codes: R51 - Headache Severity: Mild Condition: Improved Seen By: Physician only Referrals: YENNIFER DIXON (PCP) 2 Days SHREE DREW (Family) 2 Days Patient Instructions: General Headache (ED) Problems/Meds/Labs Reviewed?: Yes Medications reviewed and manag: Yes Follow up care ordered?: Yes Mental Status: Alert, Oriented HPI - Headache General Chief Complaint: Headache Stated Complaint: FOOT PAIN,RIB PAIN Time Seen by Provider: 22:04 Source: patient Exam Limitations: no limitations HPI - Headache Initial Comments 31-year-old female presents to emergency department with a chief complaint of a typical headache. Patient noted onset of symptoms earlier this week. Symptoms were gradual in progression. Patient describes a moderate dull frontal headache without radiation. She does note that the pain improves with her oral Dilaudid and hydrocodone which she has at home for treatment of her chronic pain secondary to radiation therapy from renal cell carcinoma. No other complaints or associated symptoms. She was at home when the symptoms began. Symptoms have been progressive in a gradual nature since onset. Occurred At: home Onset: Gradual Allergies: Coded Allergies: ibuprofen (Verified Allergy, Mild, DUE TO NEPHRECTOMY, 09/27/16) Penicillins (Verified Allergy, Unknown, 09/27/16) oxycodone (Verified Adverse Reaction, Intermediate, SLEEPLESSNESS, 09/27/16 ) morphine (Verified Adverse Reaction, Unknown, "MAKES ME FEEL LIKE I'M GOING TO ", 09/27/16) ondansetron (Verified Adverse Reaction, Unknown, REALLY BAD HEADACHES, ) Past History Past Medical History Metabolic: cancer ENMT: allergies Respiratory: asthma Psychological: anxiety, bipolar, depression, schizophrenia Surgical History General: tonsils Reproductive/: hysterectomy, tubal ligation Family History Family PMH: FOUND: cancer, diabetes Vaccines Hx Influenza Vaccination: No Hx Pneumococcal Vaccination: No Social History Smoking Status: Never smoker Does patient use chewing tobac: No Second Hand Exposure: No Substance Use Type: does not use Alcohol Intake: none Review of Systems Constitutional Constitutional: DENIES: chills, fever Eyes General: DENIES: erythema, exudate Lids/Accessories: DENIES: erythema, swelling Vision: DENIES: acuity, blurring ENMT Ears: DENIES: drainage, erythema Hearing: DENIES: hearing loss Balance: DENIES: ataxia, falling to one side Sinuses: DENIES: congestion, pain Nose: DENIES: nosebleeds, pain Mouth/Throat: DENIES: painful swallowing, sore throat Teeth: DENIES: pain Jaw: DENIES: pain Cardiovascular Cardiac: DENIES: chest pain, dyspnea on exertion Rhythm/Rate: DENIES: irregular beat, palpitations Vascular: DENIES: pedal edema, unilateral swelling Pulmonary Respiratory: DENIES: cough, dyspnea, pleuritic chest pain, sputum GI Upper Abdomen: DENIES: nausea, pain, vomiting Lower Abdomen: DENIES: diarrhea, pain General: DENIES: dysuria, frequency Musculoskeletal General: DENIES: joint pain, tenderness Integumentary Skin: DENIES: itching, rash Neurological General: headache, DENIES: change in strength, numbness, seizures, syncope, weakness Psychiatric Psychiatric: DENIES: emotional instability, suicidal ideation/attempt Endocrine Endocrine: DENIES: polydipsia, polyphagia Hematologic/Lymphatic Hematologic/Lymphatic: DENIES: bleeding gums, frequent nosebleeds, lymphadenopathy Allergic/Immunological Allergic/Immunoligical: DENIES: allergic reactions, hives Physical Exam General General Nourishment: well nourished, well developed, appears stated age, no acute distress, adult General Body Habitus: well groomed Vitals and Pain First Documented Vital Signs Date Time Temp Pulse Resp B/P Pulse Ox O2 Delivery O2 Flow Rate FiO2 09/27/16 22:05 97.7 98 20 131/60 96 Room Air Weight: Kilograms: 68.900 Height (feet): 5 Height (inches): 5.00 Triage Pain Scale: RN VS reviewed by Provider: Yes Normal Exams: Head: Normocephalic w/o trauma Eyes: Pupils are PERRLA w/ EOMI, No scleral icterus, irritation, or foreign bodies noted ENMT: No facial trauma, nasal exudates, pharyngeal erythema, or exudates are noted Dental: No fractured, loose, or missing teeth noted Neck: Full range of motion, without adenopathy, JVD, bruits or thyromegaly Chest/Resp: Clear all castillo, with good airflow, and symmetry bilaterally CV: Regular rate and rhythm, without murmur or gallop, Pulses 2+ all extremities, capillary refill, <2 seconds all ext., no pedal edema noted Abdomen: Bowel sounds positive, soft, non-tender, non-distended, no hepatosplenomegaly, masses or bruits noted Lymphatic: No lymphadenopathy, or lymphedema noted Musculoskeletal: No tenderness, or deformity noted, good range of motion, all extremities Integumentary: No rashes, hives, or bruising noted, hair and nails, without abnormality Neurologic: Patient is alert, and oriented, cranial nerves, motor/sensory/ cerebellar, exams w/o gross deficits, to observation Psychiatric: Patient exhibits, appropriate attention, emotion and affect Neurologic (brief) Comments Alert and oriented x 4. CN 2-12 intact. Strength normal. Speech normal. Normal gait. Normal coordination. Normal motor. Reflexes 2/4 in all extremities. Absent Babinski bilaterally. Sensation normal. No focal neurologic deficit. Unremarkable neurologic examination. Differential Diagnoses Considering: Cerebral Hemorrhage, Headache, Headache - Migraine, Headache - Tension/Muscle Progress Results/Orders Orders Procedure Category Date Status Time Ct Head W/O Contrast CT 09/27/16 Taken 22:36 Progress Progress Imaging is reviewed in detail with the patient and questions are answered. Patient declines offered analgesic pain medication. Pain medication was offered repeatedly during the patient's stay and she refused. Patient declines IV insertion and laboratory evaluation along with further imaging. Patient requests to be discharged home at this time. Patient is discharged home in accordance with her wishes. She is to follow up as instructed. She is to return to the emergency Department if her condition worsens or changes in any manner. Patient is to continue using her previously prescribed pain medication as directed. CT CT : CT: Head no contrast Interpretation: Normal, Faxed Report KATIE COSTELLO DO Sep 27, 2016 23:20
[2016-09-27 23:30] VITALS: BP 116/59; PULSE 91; RESP 18; O2SAT 96
--- NOTE | 2016-09-29 13:13 | DI ---
Indication: ITS.REASON: Severe headache PROCEDURE: CT HEAD W/O CONTRAST: Encounter: Initial Comparison: August 16, 2016 Technique: Axial CT images through the head were performed without contrast. Iterative Reconstruction dose reducing technique was utilized. FINDINGS: The ventricles are of normal size, shape, and configuration for the patient's age. There is no evidence of acute intracranial hemorrhage, midline displacement, or mass effect. The CT attenuation of the brain parenchyma is normal within the cerebellum, brain stem, and cerebral hemispheres. The tympanic cavities and mastoid air cells are free of appreciable disease. There are no definite fractures of the skull base, calvarium, or visualized portion of the midface. IMPRESSION: No CT evidence of acute intracranial abnormality. There is a preliminary report by [employer]. .
== END 2016-09-27 23:30 | disposition home or self-care (01) ==
LOC: ED 21:54
DX: R51 Headache (principal)

== ENCOUNTER → 2016-10-16 | Outpatient (CLI) | payer MEDICAID ==
[~2016-10-16] MED LIST changes: -ALBU8.5H INH; -BUDE10.22 INH; +HYDR-347 PO; +IOHEXOL 300 MG/ML 100ml INJECTION ONE; +NORMAL SALINE 100 ML ONE; -OXYC-541; +PAZO200T PO; +SALINE FLUSH 10ml SYRINGE ONE
[2016-10-16 12:56] LABS: BASOPHILS % (AUTO) 0.2 % (0-2); EOSINOPHILS # (AUTO) 0.5 T/MM3 (0-0.5); EOSINOPHILS % (AUTO) 3.1 % (0-4); HCT - HEMATOCRIT 42.6 % (36-46); HGB - HEMOGLOBIN 14.7 GM/DL (12-16); IMMATURE GRANULOCYTE # (AUTO) 0.05 T/MM3 (0.00-0.03); IMMATURE GRANULOCYTE % (AUTO) 0.3 % (0.0-0.5); LYMPHOCYTES # (AUTO) 3.2 T/MM3 (1-4.8); LYMPHOCYTES % (AUTO) 21.6 % (23-45); MEAN CORPUSCULAR HGB 28.7 UUG (26-34); MEAN CORPUSCULAR HGB CONC(MCHC 34.5 GM/DL (31-37); MEAN CORPUSCULAR VOLUME 83.2 UM3 (80-100); MEAN PLATELET VOLUME 9.3 UM3 (9.4-12.4); MONOCYTES % (AUTO) 6.9 % (0-9.0); NEUTROPHILS #(AUTO)-ABSOLUTE 10.2 T/MM3 (1.8-7.7); NEUTROPHILS % (AUTO) 67.9 % (33-66); RED BLOOD COUNT 5.12 M/MM3 (4.00-5.20)
[2016-10-16 13:01] LABS: ALBUMIN 4.5 G/DL (3.5-5.0); ALBUMIN/GLOBULIN RATIO 1.7 RATIO (1.1-2.2); ALKALINE PHOSPHATASE 77 U/L (38-126); ALT (SGPT) 42 U/L (9-52); ANION GAP 13 MEQ/L (5-15); AST (SGOT) 25 U/L (14-36); BUN/CREATININE RATIO 16 RATIO (6-26); CALCIUM 9.6 MG/DL (8.4-10.2); CHLORIDE 103 MEQ/L (98-107); CO2 - CARBON DIOXIDE 26 MEQ/L (22-30); GLOMERULAR FILTRATION RATE 65; GLUCOSE 86 MG/DL (65-110); POTASSIUM 4.2 MEQ/L (3.6-5); SODIUM 142 MEQ/L (134-144); TOTAL PROTEIN 7.2 G/DL (6.3-8.2)
--- NOTE | 2016-10-16 13:46 | DI ---
Indication: ITS.REASON: C64.1,C79.51 CA RT KIDNEY, CA BONE PROCEDURE: CT ABD/PELVIS W/CONTRAST ONLY: Encounter: Subsequent Comparison: CT chest, abdomen and pelvis dated June 14, 2016 Technique: Axial CT images were performed through the abdomen and pelvis after the administration of intravenous contrast. Coronal and sagittal two-dimensional reformats. Automated Exposure Control and Iterative Reconstruction dose reducing techniques were utilized. Contrast: Omnipaque 300 99 mL Findings: The lung bases are clear. The liver appears normal. No mass or bile duct dilatation. The gallbladder is decompressed. The spleen, pancreas and adrenal glands are within normal limits. Right kidney is surgically absent. Fat-containing ventral hernia. Left kidney is normal. No abdominal or pelvic adenopathy. Bladder is normal. Uterus is surgically absent. No free fluid. No evidence of a bowel obstruction. The appendix is normal. Bone windows show no lytic or blastic osseous lesions. Impression: Stable exam without evidence of metastatic disease in the abdomen or pelvis. .
--- NOTE | 2016-10-16 14:58 | DI ---
Indication: ITS.REASON: C64.1 Malignant neoplasm of right kidney, except renal pe; C79.51 PROCEDURE: NM BONE SCAN, WHOLE BODY: Encounter: Subsequent Comparison: CT abdomen and pelvis from today and bone scan dated June 14, 2016 Technique: 27.2 mCi of Tc-99m MDP was administered intravenously. Anterior and posterior planar whole-body and spot images were obtained. FINDINGS: The scan demonstrates the expected normal biodistribution for the radiotracer. Right kidney is absent. Focal tracer uptake is again noted in the left radial head, less extensive than the prior exam. No other areas of abnormal bony uptake. Impression: Tracer uptake in the left radial head area. This could relate to the patient's prior surgery. No new areas of metastatic disease seen. .
== END ==
LOC: IMA 10:41
PROVIDERS: ATTEND Internal Medicine Medical Oncology
DX: C64.1 Malignant neoplasm of right kidney, except renal pelvis (principal); C79.51 Secondary malignant neoplasm of bone; R94.8 Abnormal results of function studies of other organs and systems
CPT/HCPCS: 36569; 74177; 78306; 80053; 85025; A9503; C1751; J7050; Q9967

== ENCOUNTER 2016-10-22 07:46 | Day surgery (SDC) | payer MEDICAID ==
[~2016-10-22] VITALS: Ht 165.1 cm; Wt 93.1 kg
[~2016-10-22 07:46] MED LIST changes: +CLINDAMYCIN 600mg IVPB 50 ML IV ONE; -HYDR-4246 PO; -IOHEXOL 300 MG/ML 100ml INJECTION ONE; +LIDOCAINE 1% (10mg/ml) 2ml SDV INJ ONE; +NORMAL SALINE 1,000 ML IV ONE; -NORMAL SALINE 100 ML ONE; -PAZO200T PO; -SALINE FLUSH 10ml SYRINGE ONE
--- OUTSIDE RECORDS SUMMARY | 2016-10-22 07:50 | XMS REPORT ---
Author Author [facility] Organization Unknown Address Unknown Phone Unavailable Care Team Providers Care Supervisor Hardboard Name Role Phone UNASSIGNED DOCTOR , DOCTOR PP [phone] Reason For Visit Reason for Visit from [...] support from her boyfriend, children , and caodaism. Pt planning to start chemo soon. Oncologist is in [place]. SW provided education on Palliative Care program [...] she was one day post discharge from [facility] after having a right nephrectomy. She [...]
--- OUTSIDE RECORDS SUMMARY | 2016-10-22 07:50 | XMS REPORT | Continuity of Care Document ---
Author Author [facility] Organization [facility] Address Unknown Phone Unavailable Care Team Providers Care Audiovisual Aids Technician Name Role Phone LeonardMaryamMargot Primary Care Physician [phone] Source Comments Some departments are not documenting in the electronic medical record. If you do not see the information that you expected, contact Release of Information in the Health Information Management department at [phone] for further assistance in locating additional records.[facility] Active Allergies and Adverse Reactions Allergen Noted [...] Telephone Oncology Atif Arnold MD Surgical Followup Social History Tobacco Use Types Packs/Day Years Used Date Former Smoker 15 Quit: 06/02/2009 Smokeless Tobacco: Never Used Alcohol Use Drinks/Week oz/Week Comments No Last Filed Vital Signs Vital Sign Reading Time Taken Blood Pressure 118/63 08/08/2016 3:29 PM [employer]ING [employer] Pulse 79 08/08/2016 3:29 PM [employer]ING [employer] Temperature 36.4 C (97.6 F) 08/08/2016 3:29 PM [employer]ING [employer] Respiratory Rate 18 08/08/2016 3:29 PM CASING [employer] Height 1.676 m (5' 5.98") 08/08/2016 3:29 PM [employer]ING [employer] Weight 91.717 kg (202 lb 3.2 oz) 08/08/2016 3:29 PM CASING [employer] Body Mass Index 32.65 08/08/2016 3:29 PM [employer]ING [employer] Oxygen Saturation 99% 08/08/2016 3:29 PM CASING CLE[employer] Plan of Care Health Maintenance Due Date Last Done Comments Physical (Comprehensive) 1993 Exam Pertussis Vaccine 1997 Tetanus Vaccine 2003 Cervical Cancer Screening 2007 Influenza Vaccine 01/31/2017 Results from Last 3 Months * FOREARM 2 VIEWS LEFT (08/08/2016 4:05 PM) Impressions Findings/Impression: 1. The cast has been [...] - Shabnam Aug 08, 2016 6:12 PM [employer]ING [employer] FOREARM 2 VIEWS LEFT 2 views obtained [...]
--- OUTSIDE RECORDS SUMMARY | 2016-10-22 07:51 | XMS REPORT | Continuity of Care Document ---
Author Author [facility] Organization [facility] Address Unknown Phone Unavailable Allergies Active [...] malignant neoplasm of unspecified site 04/15/2016 D [id number] Nicotine dependence, cigarettes, uncomplicated 04/15/2016 D [id number] Cellulitis of abdominal wall 04/15/2016 D [id number] Infection following a procedure, initial encounter 04/15/2016 [...] - 03/27/16 10:17 *GFR EST NON AFR AZERBAIJANI >90 mL/min NRG *GRFA EST AFR AMER [...] - 04/07/16 01:22 *GFR EST NON AFR AZERBAIJANI 62 mL/min NRG *GRFA EST AFR AMER [...] Status Pt. Type Provider Facility Loc./Unit Complaint [id number] 03/24/2015 00:00:00 05/06/2016 00: 00:00 DIS Outpatient BHAVESH BURRELL MD
--- OUTSIDE RECORDS SUMMARY | 2016-10-22 07:51 | XMS REPORT | Continuity of Care Document ---
Author Author [facility] Organization [facility] Address Unknown Phone Unavailable Care Team Providers Care Talent Acquisition Sourcer Name Role Phone YENNIFER DIXON Primary Care Physician [phone] Insurance Providers Guarantor Diana Grossman Address [address] [facility] [address] [place] [id number] Email [email or web address] [email or web address] [facility] [employer] Policy Number [id number] Subscriber's Name Grossman,Diana Stout Relationship 18 Self Effective Date 16 Expiration Date 16 Advance Directives Directive Response Recorded Date/Time Advanced Directives Type None 09/27/16 10:05pm Chief Complaint and Reason for Visit Chief Complaint Headache Reason for Visit Headache Problems Active Problems Medical Problem Onset Date Status Bronchitis with asthma, acute Unknown Acute Diarrhea Unknown Acute Exacerbation of intermittent asthma Unknown Acute History of asthma Unknown Acute Rash and other nonspecific skin eruption Unknown Acute Renal cell carcinoma of right kidney Unknown URI (upper respiratory infection) Unknown Acute Viral illness Unknown Acute Viral syndrome Unknown Acute Past Problems Medical Problem Onset Date Headache Unknown Left elbow pain Unknown Lytic bone lesions on xray Unknown Migraine headache Unknown Postoperative cellulitis of surgical wound Unknown Postoperative pain of extremity Unknown Medications Current Home Medications Medication Dose Units Route Directions Days Qty Instructions Start Date Hydrocodone/Acetaminophen (Readlyn 5-325 Tablet) 5-325 Tablet 1-2 Tab Oral Four Times Daily as needed for Pain 30 06/10/16 Hydromorphone Hcl (Dilaudid) 2 Mg Tablet 1-2 Tab Oral Every 4-6 Hours 60 Tablet 08/04/16 Pazopanib Hcl (Votrient) 200 Mg Tablet 3 Tab Oral Daily 09/27/16 Prochlorperazine Maleate (Compazine) 10 Mg Tablet 10 Mg Oral Four Times Daily for N/V/Headache 30 Tablet 08/17/16 Past Home Medications Medication Directions Ordered Status Acetaminophen/Hydrocodone Bitart (Readlyn 5-325 Tablet) 1 Each Tablet, 0.5 Tab Oral Twice A Day 10/03/14 Discontinued Albuterol Sulfate (Proair Hfa 90 Mcg/Actuation) 8.5 Gm Hfa.aer.ad, 2 Puff Inhalation Every 3-4 Hours as needed for Shortness Of Air/Wheezing 08/26/15 Discontinued Budesonide/Formoterol Fumarate (Symbicort 80-4.5 Mcg Inhaler) 60 Puff/Inhaler Inhaler, 2 PuffInhalation Twice A Day as needed for Shortness Of Air 08/26/15 Discontinued Clindamycin Hcl (Cleocin Hcl) 300 Mg Capsule, 1 Cap Oral Four Times Daily 04/17 Discontinued Haloperidol 1 Mg Tablet, 1 Mg Oral Daily 08/26/15 Discontinued Levofloxacin (Levaquin) 750 Mg Tablet, 1 Tab Oral Daily 04/12/16 Discontinued No Routine Meds , 08/26/15 Discontinued Oxycodone Hcl/Acetaminophen (Oxycodone-Acetaminophen 5-325) 5-325 Tablet, 06/09/16 Discontinued Promethazine Hcl/Codeine (Prometh-Codein 6.25-10 Mg/5 Ml) 5 Ml Syrup, 5 Ml Oral Every 6 Hours as needed for Cough 03/13/15 Discontinued Social History Social History Problem Response Recorded Date/Time Onset Date Status Hx Substance Use No 09/27/2016 10:13pm Not Applicable Not Applicable Hx Alcohol Use No 09/27/2016 10:13pm Not Applicable Not Applicable Has the pt used tobacco in the last 12 months Yes 10/05/2014 7:16am Not Applicable Not Applicable Tobacco Usage smoke 08/29/2014 2:15am Not Applicable Not Applicable Query Response Start Date Stop Date Smoking Status Never smoker Hospital Discharge Instructions No hospital discharge instructions. Plan of Care Discharge Date 09/27/16 11:30pm Disposition 01 DISCHARGED HOME, SELF-CARE Condition at Discharge Improved Instructions/Education Provided General Headache (ED) Prescriptions See Medication Section Referrals YENNIFER DIXON Order Date: 2 Days Address: [address] [place] [address] Note: SHREE DREW Order Date: 2 Days Address: [address] [address] Note: Care Plan and Goals Physician Care Plan Problem: Headache Goal: Follow up with primary care provider Instructions: Take medications and follow care plan as discussed/written Functional Status No functional status results. Allergies, Adverse Reactions, Alerts Allergen Type Severity Reaction Status Last Updated Penicillin Allergy Unknown Active 09/27/16 Morphine Adverse Reaction Unknown "MAKES ME FEEL LIKE I'M GOING TO " Active 09/27/16 Oxycodone Adverse Reaction Intermediate SLEEPLESSNESS Active 09/27/16 Ibuprofen Allergy Mild DUE TO NEPHRECTOMY Active 09/27/16 Ondansetron Adverse Reaction Unknown REALLY BAD HEADACHES Active 09/27/16 Immunizations Query Response on File Recorded Date/Time Hx Influenza Vaccination No 10/03/14 9:17am Hx Pneumococcal Vaccination No 10/03/14 9:17am Hx Influenza Vaccination No 10/03/14 9:17am DTaP Vaccine History 04/1609/27/16 10:13pm Influenza Vaccine Hx FALL 201509/27/16 10:13pm Tdap Vaccine Hx NO BROKEN SKIN 06/09/16 10:07pm Vital Signs Acute Vital Signs Vital Response Date/Time Temperature (Fahrenheit) 97.7 deg F (96.8 - 99.1) 09/27/2016 10:05pm Temperature (Calculated Celsius) 36.03372 degrees C (36.0 - 37.3) 09/27/2016 10:05pm Pulse Rate (adult) 91 bpm (60 - 100) 09/27/2016 11:30pm Respiratory Rate 18 breaths/min (10 - 20) 09/27/2016 11:30pm O2 Sat by Pulse Oximetry 96 % (90 - 100) 09/27/2016 11:30pm Blood Pressure 116/59 mm Hg 09/27/2016 11:30pm Height (Feet) 5 feet 09/27/2016 10:05pm Height (Inches) 5.00 inches 09/27/2016 10:05pm Weight (Kilograms) 68.900 kg 09/27/2016 10:05pm Body Mass Index (BMI) 25.0 09/27/2016 10:05pm Results Laboratory Results Test Name Result Units Flags Reference Collection Date/Time Result Date/ Time Comments White Blood Count 10.8 T/MM3 4.5-11.0 08/28/2016 12:41pm 08/28/2016 12: 50pm Red Blood Count 5.47 M/MM3 H 4.00-5.20 08/28/2016 12:41pm 08/28/2016 12: 50pm Hemoglobin 15.3 GM/DL 12-16 08/28/2016 12:41pm 08/28/2016 12:50pm Hematocrit 45.4 % 36-46 08/28/2016 12:41pm 08/28/2016 12:50pm Mean Corpuscular Volume 83.0 UM3 80-100 08/28/2016 12:41pm 08/28/2016 12:50pm Mean Corpuscular Hemoglobin 28.0 UUG 26-34 08/28/2016 12:41pm 2016 12:50pm Mean Corpuscular Hemoglobin Concent 33.7 GM/DL 31-37 08/28/2016 12:41pm 08/28/2016 12:50pm RDW Standard Deviation 42.5 FL 36.9-50.2 08/28/2016 12:41pm 08/28/2016 12:50pm Platelet Count 290 T/MM3 130-400 08/28/2016 12:41pm 08/28/2016 12:50pm Mean Platelet Volume 9.7 UM3 9.4-12.4 08/28/2016 12:41pm 08/28/2016 12: 50pm Neutrophils (%) (Auto) 63.2 % 33-66 08/28/2016 12:41pm 08/28/2016 12: 50pm Lymphocytes (%) (Auto) 24.7 % 23-45 08/28/2016 12:41pm 08/28/2016 12: 50pm Monocytes (%) (Auto) 5.4 % 0-9.0 08/28/2016 12:41pm 08/28/2016 12:50pm Eosinophils (%) (Auto) 5.7 % H 0-4 08/28/2016 12:41pm 08/28/2016 12: 50pm Basophils (%) (Auto) 0.6 % 0-2 08/28/2016 12:41pm 08/28/2016 12:50pm Immature Granulocyte % (Auto) 0.4 % 0.0-0.5 08/28/2016 12:41pm 2016 12:50pm Absolute Neutrophils (auto) 6.9 T/MM3 1.8-7.7 08/28/2016 12:41pm 2016 12:50pm Absolute Lymphocytes (auto) 2.7 T/MM3 1-4.8 08/28/2016 12:41pm 2016 12:50pm Absolute Monocytes (auto) 0.6 T/MM3 0-0.8 08/28/2016 12:41pm 2016 12:50pm Absolute Eosinophils (auto) 0.6 T/MM3 H 0-0.5 08/28/2016 12:41pm 2016 12:50pm Absolute Basophils (auto) 0.1 T/MM3 0-0.2 08/28/2016 12:41pm 2016 12:50pm Absolute Immature Granulocyte (auto 0.04 T/MM3 H 0.00-0.03 08/28/2016 12: 41pm 08/28/2016 12:50pm Neutrophils % (Manual) 67.0 % H 33-66 [...] 11 :34am Icterus Index < 2 0-7 08/28/2016 12:41pm 08/28/2016 1:09pm Chemistry Specimen Hemolysis 31 H 0-25 08/28/2016 12:41pm 08/28/2016 1 :09pm 26-70: Specimen Exhibited Slight Hemolysis - can falsely elevate K (Potassium) and Urine Protein. Turbidity < 20 0-20 08/28/2016 12:41pm 08/28/2016 1:09pm Sodium Level 140 MEQ/L 134-144 08/28/2016 12:41pm 08/28/2016 1:41pm Potassium Level 4.1 MEQ/L 3.6-5 08/28/2016 12:41pm 08/28/2016 1:41pm Chloride Level 106 MEQ/L 98-107 08/28/2016 12:41pm 08/28/2016 1:41pm Carbon Dioxide Level 24 MEQ/L 22-30 08/28/2016 12:41pm 08/28/2016 1: 09pm Anion Gap 10 MEQ/L 5-15 08/28/2016 12:41pm 08/28/2016 1:41pm Blood Urea Nitrogen 17.0 MG/DL 7-17 08/28/2016 12:41pm 08/28/2016 1: 41pm Creatinine 1.0 MG/DL 0.7-1.2 08/28/2016 12:41pm 08/28/2016 1:09pm BUN/Creatinine Ratio 17 RATIO 6-26 08/28/2016 12:41pm 08/28/2016 1: 41pm Glomerular Filtration Rate Calc 65 08/28/2016 12:41pm 08/28/2016 1: 09pm Glucose Level 117 MG/DL H 65-110 08/28/2016 12:41pm 08/28/2016 1:09pm Calculated Osmolality 272 MOSM/KG 261-280 08/28/2016 12:41pm 2016 1:41pm Calcium Level 9.8 MG/DL 8.4-10.2 08/28/2016 12:41pm 08/28/2016 1:41pm Total Bilirubin 1.00 MG/DL 0.20-1.30 08/28/2016 12:41pm 08/28/2016 1: 41pm Alkaline Phosphatase 94 U/L 38-126 08/28/2016 12:41pm 08/28/2016 1: 09pm Total Protein 7.4 G/DL 6.3-8.2 08/28/2016 12:41pm 08/28/2016 1:09pm Albumin 4.3 G/DL 3.5-5.0 08/28/2016 12:41pm 08/28/2016 1:09pm Globulin 3.1 G/DL 2.4-3.6 08/28/2016 12:41pm 08/28/2016 1:09pm Albumin/Globulin Ratio 1.4 RATIO 1.1-2.2 08/28/2016 12:41pm 08/28/2016 1:09pm Aspartate Amino Transf (AST/SGOT) 28 U/L 14-36 08/28/2016 12:41pm 08/28 1:09pm Alanine Aminotransferase (ALT/SGPT) 45 U/L 9-52 08/28/2016 12:41pm 1:09pm Lactate Dehydrogenase 587 U/L 313-618 08/21/2016 10:58am 08/21/2016 11: 14am C-Reactive Protein 7.9 MG/L 0-9 07/01/2016 12:54pm 07/01/2016 1:31pm Magnesium Level 2.0 MG/DL 1.6-2.3 08/28/2016 12:41pm 08/28/2016 1:41pm Plasma Lactate 1.0 MMOL/L 0.6-2.2 07/01/2016 12:54pm 07/01/2016 1:10pm Procalcitonin < 0.05 NG/ML 07/01/2016 12:54pm 07/01/2016 2:05pm PCT </=0.5 ng/mL - sepsis not likely; PCT >0.5 and </=2 ng/mL - sepsis possible; PCT >2 ng/mL - sepsis likely; PCT >/=10 ng/mL - systemic inflammatory response - sepsis or septic shock highly indicated. Procedures Procedure Status Date Provider(s) Electrocardiogram tracing Completed 07/18/16 Tte w/doppler complete Completed 07/18/16 X-ray exam ribs thomas 3 views Completed 07/26/16 X-ray exam of pelvis Completed 07/26/16 X-ray exam of shoulder Completed 07/26/16 X-ray exam of ankle Completed 07/26/16 Emergency dept visit Completed 08/04/16 Cat scan follow-up study Completed 08/15/16 Ct head/brain w/o dye Completed 08/16/16 Emergency dept visit Completed 08/16/16 Chest x-ray 2vw frontal&latl Completed 09/05/16 Ct angiography chest Completed 09/05/16 [id number]"INFUSION, NORMAL SALINE SOLUTION , 250 CC" Completed 09/05/16 [id number]"LOW OSMOLAR CONTRAST MATERIAL, 300-399 MG/ML IODINE C Completed Encounters Encounter Location Arrival/Admit Date Discharge/Depart Date Attending Provider Departed Emergency Room [facility] 09/27/16 9:54pm 09/27/16 11: 30pm KATIE COSTELLO DO Registered [facility] 09/05/16 3:46pm STEPHANIE CHAIDEZ MD Registered [facility] 09/05/16 1:32pm MALAIKA DANIEL MD Registered [facility] 08/28/16 12:13pm STEPHANIE CHAIDEZ MD Departed Emergency Room [facility] 08/16/16 10:56pm 08/17/16 12: 45am PAUL MURCIA MD Registered [facility] 08/15/16 4:37pm MALAIKA DANIEL MD Departed Emergency Room [facility] 08/04/16 10:57pm 08/05/16 12: 05am PAUL MURCIA MD Registered [facility] 07/26/16 10:42am STEPHANIE CHAIDEZ MD Registered [facility] 07/18/16 9:12am STEPHANIE CHAIDEZ MD Recent Diagnosis
--- OUTSIDE RECORDS SUMMARY | 2016-10-22 07:51 | XMS REPORT | Continuity of Care Document ---
Author Author [facility] Organization [facility] Address Unknown Phone Unavailable Care Team Providers Care Civil Service Worker Name Role Phone YENNIFER DIXON Primary Care Physician [phone] Insurance Providers Guarantor Diana Grossman Address [address] [place] [id number] Email [email or web address] Payer [facility] Plan Policy Number [id number] Subscriber's Name Grossman,Diana Stout Relationship 19 Self [...] Directions Days Qty Instructions Start Date Hydrocodone/Acetaminophen ([place] 5-325 Tablet) 5-325 Tablet 1-2 Tab Oral [...] Medications Medication Directions Ordered Status Acetaminophen/Hydrocodone Bitart ([place] 5-325 Tablet) 1 Each Tablet, 0.5 Tab [...] Order Date: 2 Days Address: [address] [place] [address] Note: SHREE DREW Order Date: 2 Days Address: [address] [address] Note: Care Plan and Goals Physician Care [...] - 99.1) 09/27/2016 10:05pm Temperature (Calculated Celsius) 36.63041 degrees C (36.0 - 37.3) 09/27/2016 10:05pm [...] - sepsis or septic shock highly indicated. Name: DIANA GROSSMAN Unit #: [id number] : 1985 Sex: F Admit Date: Loc / Svc: ED Discharge Date: 09/27/16 DIAGNOSTIC IMAGING REPORT Report #: [id number] [facility] ROSA Lanza Indication: ITS.REASON: Severe headache PROCEDURE: CT HEAD W/O CONTRAST: Encounter: Initial Comparison: August 16, 2016 Technique: Axial CT images through the head were performed without contrast. Iterative Reconstruction dose reducing technique was utilized. FINDINGS: The ventricles are of normal size, shape, and configuration for the patient's age. There is no evidence of acute intracranial hemorrhage, midline displacement, or mass effect. The CT attenuation of the brain parenchyma is normal within the cerebellum, brain stem, and cerebral hemispheres. The tympanic cavities and mastoid air cells are free of appreciable disease. There are no definite fractures of the skull base, calvarium, or visualized portion of the midface. IMPRESSION: No CT evidence of acute intracranial abnormality. There is a preliminary report by [facility]. . Procedures Procedure Status Date Provider(s) Electrocardiogram tracing [...] Completed 09/05/16 Ct angiography chest Completed 09/05/16 [id number]"INFUSION, NORMAL SALINE SOLUTION , 250 CC" Completed 09/05/16 [id number]"LOW OSMOLAR CONTRAST MATERIAL, 300-399 MG/ML IODINE C Completed Ct head/brain w/o dye Completed 09/27/16 Emergency dept visit Completed 09/27/16 Encounters Encounter Location Arrival/Admit Date Discharge/Depart Date Attending Provider Departed Emergency Room [facility] 09/27/16 9:54pm 09/27/16 11: 30pm KATIE COSTELLO DO Registered [facility] 09/05/16 3:46pm STEPHANIE CHAIDEZ MD Registered [facility] 09/05/16 1:32pm MALAIKA DANIEL MD Discharged Recurring [facility] 08/28/16 12:13pm 10/12/16 11: 59pm STEPHANIE CHAIDEZ MD Departed Emergency Room [facility] 08/16/16 10:56pm 08/17/16 12: 45am PAUL MURCIA MD Registered [facility] 08/15/16 4:37pm MALAIKA DANIEL MD Departed Emergency Room [facility] 08/04/16 10:57pm 08/05/16 12: 05am PAUL MURCIA MD Registered [facility] 07/26/16 10:42am STEPHANIE CHAIDEZ MD Registered [facility] 07/18/16 9:12am STEPHANIE CHAIDEZ MD Recent Diagnosis
--- OUTSIDE RECORDS SUMMARY | 2016-10-22 07:51 | XMS REPORT ---
Author [facility] Organization Unknown Address Unknown Phone Unavailable Care Team Providers Care Tissue Technologist Name Role Phone UNASSIGNED DOCTOR , DOCTOR PP [phone] Reason For Visit Chief Complaint PRE EMPLOYMENT [...]
--- OUTSIDE RECORDS SUMMARY | 2016-10-22 07:52 | XMS REPORT ---
Author Author [facility] Organization Unknown Address Unknown Phone Unavailable Care Team Providers Care Medical Payment Poster Name Role Phone UNASSIGNED DOCTOR , DOCTOR PP [phone] Reason For Visit Chief Complaint RT RENAL [...] MG/DL (65-99 MG/DL) *GFR EST NON AFR BURKINAN >90 ML/MIN *GFR EST AFR AMER >90 [...]
--- OUTSIDE RECORDS SUMMARY | 2016-10-22 07:52 | XMS REPORT | Continuity of Care Document ---
Author Author [facility] Organization [facility] Address Unknown Phone Unavailable Care Team Providers Care Heat Treatment Technician Name Role Phone DAVID ABDALLA MD Primary Care Physician [phone] Insurance Providers Payer Name Policy Number Subscriber Name Relationship [facility] [id number] Diana Grossman 19 Self Advance Directives Directive [...] F (96.8 - 99.1) Temperature (Calculated Celsius) 36.29925 degrees C (36.0 - 37.3) Pulse Rate [...] Encounters Encounter Location Date/Time Departed Emergency Room [facility] 08/01/14 12:10pm Recent Diagnosis
--- OUTSIDE RECORDS SUMMARY | 2016-10-22 07:52 | XMS REPORT ---
Author [facility] Organization Unknown Address Unknown Phone Unavailable Care Team Providers Care Windows Application Developer Name Role Phone YARY DREW, GHAZAL PP [phone] Reason For Visit Chief Complaint M79.602 LT [...]
--- OUTSIDE RECORDS SUMMARY | 2016-10-22 07:52 | XMS REPORT | Continuity of Care Document ---
Author Author Pool [facility] Organization [facility] Address Unknown Phone Unavailable Care Team Providers Care Campus Interviews Intern Name Role Phone YENNIFER DIXON Primary Care Physician [phone] Insurance Providers Payer Name Policy Number Subscriber Name Relationship [facility] [id number] Diana Grossman 19 Self Advance Directives Directive [...] F (96.8 - 99.1) Temperature (Calculated Celsius) 37.74410 degrees C (36.0 - 37.3) Pulse Rate [...] sensitivity is90%. Name: DIANA GROSSMAN Unit #: [id number] : 1985 Sex: F Loc / Svc: ED DOS: 08/28/14 Signed Report #: [id number] DIAGNOSTIC IMAGING REPORT TYPE OF EXAM: CHEST, [...] Encounters Encounter Location Date/Time Registered Emergency Room [facility] 08/28/14 8:46pm Registered Clinic [facility] 08/11/14 1:58pm Departed Emergency Room [facility] 08/01/14 12:10pm Recent Diagnosis
[2016-10-22 07:58] VITALS: BP 109/69; PULSE 81; RESP 16; TEMP 97.8; O2SAT 96; Ht 165.1 cm; Wt 93.1 kg
[2016-10-22 08:25] LABS: BASOPHILS % (AUTO) 0.4 % (0-2); EOSINOPHILS # (AUTO) 0.5 T/MM3 (0-0.5); EOSINOPHILS % (AUTO) 4.9 % (0-4); HCT - HEMATOCRIT 44.4 % (36-46); HGB - HEMOGLOBIN 14.9 GM/DL (12-16); IMMATURE GRANULOCYTE # (AUTO) 0.03 T/MM3 (0.00-0.03); IMMATURE GRANULOCYTE % (AUTO) 0.3 % (0.0-0.5); LYMPHOCYTES # (AUTO) 2.6 T/MM3 (1-4.8); LYMPHOCYTES % (AUTO) 23.2 % (23-45); MEAN CORPUSCULAR HGB 28.4 UUG (26-34); MEAN CORPUSCULAR HGB CONC(MCHC 33.6 GM/DL (31-37); MEAN CORPUSCULAR VOLUME 84.6 UM3 (80-100); MEAN PLATELET VOLUME 9.2 UM3 (9.4-12.4); MONOCYTES # (AUTO) 0.7 T/MM3 (0-0.8); NEUTROPHILS #(AUTO)-ABSOLUTE 7.2 T/MM3 (1.8-7.7); NEUTROPHILS % (AUTO) 65.2 % (33-66); RED BLOOD COUNT 5.25 M/MM3 (4.00-5.20); WBC - WHITE BLOOD COUNT 11.1 T/MM3 (4.5-11.0)
[2016-10-22] MEDS ORDERED: PROPOFOL 500mg 50 ML IV ONE ×2 (09:02→11:39)
--- NOTE | 2016-10-22 09:32 | ANESPREOP ---
Anesthesia Record Date and Time DATE: 10/22/16 TIME: 09:28 Pre-Op Diagnosis Right Renal carcinoma Proposed Surgical Procedure POWER PORT NPO since: [place] Allergies: Coded Allergies: ibuprofen (Verified Allergy, Mild, DUE TO NEPHRECTOMY, 10/22/16) Penicillins (Verified Allergy, Unknown, 10/22/16) oxycodone (Verified Adverse Reaction, Intermediate, SLEEPLESSNESS, 10/22/16 ) morphine (Verified Adverse Reaction, Unknown, "MAKES ME FEEL LIKE I'M GOING TO ", 10/22/16) ondansetron (Verified Adverse Reaction, Unknown, REALLY BAD HEADACHES, ) Ht/Wt/BMI Height: 5 ' 5.00 " Weight: 93.100 kg BMI: 34.2 kg/m2 Vital Signs Date Time Temp Pulse Resp B/P Pulse Ox O2 Delivery O2 Flow Rate FiO2 10/22/16 07:58 97.8 81 16 109/69 96 Room Air Medications Hydrocodone/Acetaminophen ([place] 7.5-325 Tablet) 7.5-325 Tablet, 1-2 TAB PO Q6HPRN, (Reported) Last Taken: on 10/21/16 1600 Hydromorphone HCl (Dilaudid) 2 Mg Tablet, 1-2 TAB PO Q4-6H Last Taken: on 10/21/16 1900 Prochlorperazine Maleate (Compazine) 10 Mg Tablet, 10 MG PO QID Last Taken: on Unknown Date & Time Currently on Beta Tang: No Medical/Surgical History Anesthesia PMH: Reports: Asthma (SEASONAL ALLERGIES), Cancer (RENAL CELL CARCINOMA - METS TO BONE IN LEFT ARM), Renal Disease, Denies: *Diabetes, Anesthesia Reactions (NO AIRWAY ISSUES KNOWN), Clotting Problems, Deep Vein Thrombosis, Glaucoma, Malignant Hyperthermia, Pacemaker, Reflux, Sleep Apnea, Thyroid Disease Smoking Status: Current every day smoker # of Packs per Day: 0.5 # of Years: 18 Use Chewing Tobacco?: No Second Hand Exposure: No Substance Use Type: does not use Alcohol Intake: none HX of Last Menstrual Period: 2014 Past Surgical History Orthopedic Surgeries: Yes - L PARTIAL RADIUS REMOVED Abdominal Surgeries: Yes - LAPAROSCOPIES X4 Genitourinary Surgeries: Yes - RIGHT NEPHRECTOMY Cardiac Surgeries: Endocrine Surgeries: Reproductive Surgeries: Yes - TUBAL; CERVICAL BIOPSIES, HYST 15 Neurological Surgeries: Ear Surgeries: Nose Surgeries: Throat Surgeries: Yes - TONSILLECTOMY Other Surgeries: No Anesthesia Adverse Reactions: FOUND none Family Hx of Anesthesia Advers: none Hx of Motion Sickness: No Pertinent Findings Laboratory Tests 10/22/16 08:07 EKG Rhythm: Sinus Rhythm Physical Exam Respiratory: Bilat breath sounds equal, Lungs clear Cardiovascular: FOUND Regular rate, rhythm, FOUND No murmur Airway Assessment Mallampati Score: II TMD: 3 Fingerbreadths Neck Extension: Good ASA: 3 Plan Anesthesia Plan: TIVA Discussion Discussed risks/options/alternatives of anesthesia and questions answered. Patient consents. Nursing pain assessment noted. Present: Spouse Attestation Statement Prior to the delivery of any anesthetic medication, I examined the patient, developed the plan, obtained the patient's consent and discussed the risk and benefits of the procedure with the patient/guardian. CAROLYNE JOHNS CRNA October 22, 2016 09:32
[2016-10-22] MEDS ORDERED: BUPIVACAINE 0.25% (2.5mg/ml) INJ 30ml SDV ONE (10:00)
[2016-10-22] MEDS ORDERED: MIDAZOLAM 2mg/2ml INJECTION ONE (11:02)
[2016-10-22] MEDS ORDERED: FENTANYL 100mcg/2ml INJECTION ONE (11:02)
[2016-10-22 12:35] VITALS: BP 121/59; PULSE 74; RESP 12; TEMP 97.5; O2SAT 95
--- NOTE | 2016-10-22 12:36 | GSPOSTPROC ---
Immediate Operative Note DATE: 10/22/16 TIME: 12:35 Postop Diagnosis: Metastatic renal cell carcinoma Surgical Procedure: Other (Implantation of Power Port VAD) Surgeon: Leti ASA: 3 DAVID CH MD October 22, 2016 12:36
[2016-10-22] MEDS ORDERED: HYDROMORPHONE 2mg/ml INJECTION IV PRN (12:45)
[2016-10-22] MEDS ORDERED: PROMETHAZINE 25 MG INJECTION IV PRN (12:45)
[2016-10-22] MEDS ORDERED: ACETAMINOPHEN 500 MG TABLET PO PRN (12:45)
[2016-10-22] MEDS ORDERED: HYDROMORPHONE 2 MG TABLET PO PRN (12:45)
[2016-10-22 12:50] VITALS: BP 126/64; PULSE 68; RESP 16; O2SAT 97
[2016-10-22 13:05] VITALS: BP 134/72; PULSE 80; RESP 18; O2SAT 94
--- NOTE | 2016-10-22 13:08 | ANESPO ---
Post-Op Note Date 10/22/16 Time: 13:06 Status Pt Participated in Evaluation: Pt participated in person Vital Signs Date Time Temp Pulse Resp B/P Pulse Ox O2 Delivery O2 Flow Rate FiO2 10/22/16 12:50 68 16 126/64 97 Room Air 10/22/16 12:35 97.5 Respiratory Function: Airway patent Cardiovascular Function: Regular pulse Mental Status: Alert/oriented Pain Level Intensity: 0 Unable to Assess Pain Due To: Medicated/Sleeping Hydration: Taking po fluids Complications during Recovery None apparent Follow-Up Instructions Instructions Per Surgeon PELON AHN CRNA October 22, 2016 13:08
--- NOTE | 2016-10-22 13:10 | DI ---
Indication: ITS.REASON: RENAL CELL CARCINOMA PROCEDURE: PORTACATH W FLUORO W 1V CXR: Encounter: Initial Comparison: Chest x-ray dated September 05, [address] abdomen/pelvis October 16, 2016 Findings: New right internal jugular approach central venous port catheter in place with the tip projecting over the lower SVC. No visible pneumothorax. New airspace consolidation in the right lower lobe. There is some linear probable atelectasis in the left midlung is well. No pleural effusion. Heart size and mediastinal contours are stable. Impression: New right internal jugular port catheter without evidence of immediate complication. .
[2016-10-22 13:25] VITALS: BP 144/71; PULSE 75; RESP 18; O2SAT 94
[2016-10-22] MEDS ORDERED: SALINE FLUSH *Sterile Field* 10ml SYRINGE IVF ONE (22:00)
--- NOTE | 2016-10-23 10:15 | OPNOTEF ---
DATE OF OPERATION 10/22/2016 PREOPERATIVE DIAGNOSIS Metastatic renal cell carcinoma. POSTOPERATIVE DIAGNOSIS Metastatic renal cell carcinoma. OPERATION Implantation of PowerPort vascular access device. SURGEON Dr. Landeros ANESTHESIA MARQUIS ASA CLASS 3 DESCRIPTION OF OPERATION The patient was placed in supine position on the operating table. The patient was premedicated with intravenous sedation medication administered by the nurse outreach liaison. The suprasternal notch area, left supraclavicular area, left infraclavicular area, left side of the neck, left shoulder, right supraclavicular area, right infraclavicular area, right side of the neck and right shoulder were all prepped and draped in routine sterile fashion. An ultrasound device was used to examine the right carotid artery and the right internal jugular vein. Bupivacaine 0.25% without epinephrine was infiltrated into the skin and subcutaneous tissue at the right side of the neck. A small incision was made at this area. A percutaneous venipuncture of the right internal jugular vein was then performed with ultrasound guidance. The right internal jugular vein was entered on the first needlestick. There was a good return of dark red nonpulsatile blood. A flexible guidewire was passed through the needle and through the right internal jugular vein down into the superior vena cava. The position of the flexible guidewire within the superior vena cava was confirmed with fluoroscopy with the C-arm at this time. Bupivacaine was infiltrated into the skin and subcutaneous tissue at an obliquely oriented incision at the right infraclavicular area. An obliquely oriented incision was made at this area and extended down through the underlying tissue. Bupivacaine was infiltrated into the tissue at this area. A subcutaneous pocket was then made beneath the inferior margin of the right infraclavicular incision. The implantable port was flushed with heparinized saline solution. The port was placed into the pocket which had been created for it between the pectoralis fascia and the subcutaneous tissue at the right infraclavicular incision area. Two simple interrupted stitches of 0 Prolene suture were placed at each of the four corner suture rings to secure the port down to the underlying pectoralis fascia. The catheter was flushed with heparinized saline solution. A hemostat was inserted at the right infraclavicular wound and passed over the clavicle and beneath the subcutaneous tissue to come out at the incision at the right side of the neck. The hemostat was used to grasp the end of the catheter and pull it through the tunnel from the incision at the right side of neck down to the incision at the right infraclavicular area. A vessel dilator and sheath introducer were then advanced over the flexible guidewire into the internal jugular vein. The vessel dilator and guidewire were then removed from the peel-away sheath. The end of the catheter was introduced into the peel-away sheath. The catheter easily passed through the peel-away sheath down into the superior vena cava. The peel-away sheath was removed. The position of the catheter was checked with the C-arm. The position of the catheter was adjusted until the tip of the catheter was in the superior vena cava near the junction of the superior vena cava and the right atrium. Excess catheter at the distal end of the catheter was excised and discarded. The catheter was connected to the stem of the port at the right infraclavicular subcutaneous pocket. The catheter lock was advanced onto the stem of the port to lock the catheter in place on the stem of the port. With the catheter connected to the port, heparinized saline was injected through the port and through the catheter. The position of the catheter was again checked with the C-arm. The position of the catheter appeared be satisfactory at this time. Subcutaneous tissue was closed at the obliquely oriented incision at the right infraclavicular area in two layers with a continuous simple [id number] stitch using 3-0 Vicryl suture. Skin margins were reapproximated at the obliquely oriented right infraclavicular incision with a continuous subcuticular stitch using 4-0 Vicryl suture. Skin margins were then reapproximated at the short incision at the right side of the neck with interrupted subcuticular stitches using 4-0 Vicryl suture. Benzoin and 1/2-inch wide Steri-Strips were applied to the incisions at the right side of the neck and at the right infraclavicular area. Sterile dressings were applied to the incisions. The patient did receive intravenous sedation medication administered by the nurse outreach liaison throughout the operation as needed to maintain patient comfort. The patient did appear to tolerate the operation well. ARISTEO
== END 2016-10-22 13:40 | disposition home or self-care (01) ==
LOC: SCU 07:46
PROVIDERS: ATTEND Surgery
DX: C64.1 Malignant neoplasm of right kidney, except renal pelvis (principal); C79.51 Secondary malignant neoplasm of bone
CPT/HCPCS: 36415; 36561; 36569; 77001; 85025; C1751; C1788; J1642; J2250; J3010; J7030; S0020; S0077

== ENCOUNTER 2016-11-19 14:17 | Observation (INO) ==
[~2016-11-19 14:17] MED LIST changes: -CLINDAMYCIN 600mg IVPB 50 ML IV ONE; -HYDR-347 PO; -HYDR2TAB56 PO; -LIDOCAINE 1% (10mg/ml) 2ml SDV INJ ONE; -NORMAL SALINE 1,000 ML IV ONE; -PROC-14 PO; +SALINE FLUSH 10ml SYRINGE IVF PRN
--- OUTSIDE RECORDS SUMMARY | 2016-11-19 14:25 | External Medical Summary ---
:1985 Author Organization [facility] Address [address] [place], [place] [id number] Care Team Providers Name Role Phone Kendra Contreras Unavailable Unavailable PROBLEMS Type Condition ICD9-CM Code [id number] Code Onset Condition SNOMED Code Dates Status Assessment Infection T81.4XXA May, Active 12729635 following a 2016 procedure, initial encounter ALLERGIES Substance Reaction Event Type Date Status [...] 2016 MEDICATIONS Medication Instructions Dosage Frequency Start End Duration Status Date Date Mupirocin 2 % Externally Three 1 application 8h May, May, 07 days Active times a day to affected 2015 2015 area RESULTS No Results PROCEDURES Procedure Date Ordered Related Diagnosis Body Site OFFICE VISIT EST PATIENT LEVEL 3 2016 IMMUNIZATIONS No Known Immunizations
--- OUTSIDE RECORDS SUMMARY | 2016-11-19 14:25 | External Medical Summary | Continuity of Care Document ---
:1985 Author Organization [facility] Address [address] [place] [address] Phone [phone] Care Team Providers Name Role Phone Nilsa Valleley Primary Care Provider [phone] Source Comments Some departments are not documenting in the electronic medical record. If you do not see the information that you expected, contact Release of Information in the Health Information Management department at [phone] for further assistance in locating additional records.[facility] Active Allergies and Adverse Reactions Allergen Noted Date Severity Reactions Comments Pcn 06/25/2016 Medium RASH Zofran Odt 06/27/2016 Medium HEADACHE,RASH Current Medications Prescription Sig. Disp. Refills Start Date End Date Status acetaminophen (TYLENOL) Take 325 mg by Active 325 mg tablet mouth every 4 hours as needed for Pain. oxyCODONE SR (OXYCONTIN) Take 20 mg by Active 20 mg tablet mouth every 12 hours HYDROMORPHONE HCL Take 2 mg by mouth Active (DILAUDID PO) every 4-6 hours as needed. HYDROcodone/acetaminophen Take 1 Tab by Active (NORCO) 5/325 mg tablet mouth every 4 hours as needed for Pain Active Problems Problem Noted Date Metastatic cancer to bone (HCC) 07/05/2016 Social History Tobacco Use Types Packs/Day Years Used Date Former Smoker 15 Quit: 06/02/2009 Smokeless Tobacco: Never Used Alcohol Use Drinks/Week oz/Week Comments No Last Filed Vital Signs Vital Sign Reading Time Taken Blood Pressure 118/63 08/08/2016 3:29 PM CYBER FORENSICS ANALYST Pulse 79 08/08/2016 3:29 PM CYBER FORENSICS ANALYST Temperature 36.4 C (97.6 F) 08/08/2016 3:29 PM CYBER FORENSICS ANALYST Respiratory Rate 18 08/08/2016 3:29 PM CYBER FORENSICS ANALYST Height 1.676 m (5' 5.98") 08/08/2016 3:29 PM CYBER FORENSICS ANALYST Weight 91.717 kg (202 lb 3.2 oz) 08/08/2016 3:29 PM CYBER FORENSICS ANALYST Body Mass Index 32.65 08/08/2016 3:29 PM CYBER FORENSICS ANALYST Oxygen Saturation 99% 08/08/2016 3:29 PM CYBER FORENSICS ANALYST Plan of Care Health Maintenance Due Date Last Done Comments Physical (Comprehensive) Exam 1993 Pertussis Vaccine 1997 Tetanus Vaccine 2003 Cervical Cancer Screening 2007 Influenza Vaccine 01/31/2017 Results from Last 3 Months Not on file
--- OUTSIDE RECORDS SUMMARY | 2016-11-19 14:25 | External Medical Summary ---
:1985 Author Organization [facility] Address [address] [place], [place] [id number] Care Team Providers Name Role Phone Margot Valle Unavailable Unavailable PROBLEMS Type Condition ICD9-CM Code [id number] Code Onset Condition SNOMED Code Dates Status Problem Renal cell C64.9 Active [id number] carcinoma ALLERGIES Unknown Allergies SOCIAL HISTORY No smoking Hx information available PLAN OF CARE VITAL SIGNS MEDICATIONS Unknown Medications RESULTS No Results PROCEDURES No Known procedures IMMUNIZATIONS No Known Immunizations
--- OUTSIDE RECORDS SUMMARY | 2016-11-19 14:25 | External Medical Summary ---
:1985 Author Organization [employer] Care Team Providers Name Role Phone Margot Valle Provider Role Unavailable Allergies No Known Allergies Problems No Known Problems Medications No Known Medications Results No Known Results Summary Purpose [employer] Submission
--- OUTSIDE RECORDS SUMMARY | 2016-11-19 14:25 | External Medical Summary ---
:1985 Author Name GENERATED, SYSTEM Care Team Providers Name Role Phone UNASSIGNED DOCTOR MD NIYAH DOCTOR Primary Care Provider [phone] Reason For Visit Reason for Visit from 04/07/2016 2:20 AM:Pt Stated Reason for Adm : Cellulitis of abdomen Chief Complaint CELLULITIS Social History Social History from 04/07/2016 9:00 PM:Tobacco Use? : Current Everyday SmokerSocial History from 04/07/2016 2:20 AM:Tobacco Use? : Current Everyday Smoker Functional Status Functional Status from 04/07/2016 7:40 PM:LOC : IrritableOriented To : Person, Place,Time,EventWeight Bearing Status : FullAssist Level : Independent# Assists : IndependentFunctional Status from 04/07/2016 7:50 AM:LOC : AlertOriented To : Person,Place,Time,EventWeight Bearing Status : FullAssist Level : Independent# Assists : IndependentFunctional Status from 04/07/2016 2:20 AM:LOC : AlertOriented To : Person,Place,Time,EventWeight Bearing Status : FullAssist Level : Independent# Assists : Independent Vital Signs Hospital Vital Signs from 04/07/2016 7:23 PM:Height : 5/5 ft,inTemperature : 99.2 FPulse : 91Respirations : 18BP : 116/71Hospital Vital Signs from 04/07/2016 4:00 PM:Height : 5/5 ft,inTemperature : 97.4 FPulse : 77Respirations : 18BP : 118/68Hospital Vital Signs from 04/07/2016 7:57 AM:Height : 5/5 ft,inTemperature : 97.2 FPulse : 69Respirations : 18BP : 109/67Hospital Vital Signs from 2015 2:20 AM:Weight : 80.286/ kgHeight : 5/5 ft,inHospital Vital Signs from 04/07 2:19 AM:Weight : 177/ lbs,ozHeight : 5/5 ft,inTemperature : 97.4 FPulse : 107Respirations : 20BP : 140/87 Results Chemistry from 04/07/2016 6:03 [id number] MMOL/L(136-145 MMOL/L) POTASSIUM3.7 MMOL/L(3.5-5.1 MMOL/L) OCRYYRWD422 MMOL/L(98-107 MMOL/L) SOI402.6 MMOL/L(21.0-32.0 MMOL/L) *ANION GAP7.4 MMOL/L L(8.0-16.0 MMOL/L) BUN11 MG/DL(7-18 MG/DL) CREATININE1.29 MG/DL H(0.55-1.02 MG/DL) *BUN/CREATININE RATIO8.5 L(9.1-17.0 ) DTOOSIP70 MG/DL(65-99 MG/DL) CALCIUM8.5 MG/DL(8.5-10.1 MG/DL) BILIRUBIN TOTAL0.80 MG/DL(0.20-1.00 MG/DL) TOTAL PROTEIN6.5 GM/DL(6.4-8.2 GM/DL) ALBUMIN2.9 GM/DL L(3.4-5.0 GM/DL) *GLOBULIN3.6 GM/DL H(2.3-3.5 GM/DL) *A/G RATIO0.8 MG/DL L(1.5-2.2 MG/DL) ALK PHOS88 U/L(46-116 U/L) ALT (SGPT)26 U/L(16-63 U/L) AST (SGOT)13 U/L L(15-37 U/L)Hematology from 04/07/2016 6:03 AMWBC14.4 X10e3/UL H (3.6-11.2 X10e3/UL) RBC4.43 X10e6/UL(3.63-4.92 X10e6/UL) QFURHPLLJK34.9 G/DL(11.0-14.3 G/DL) BVXGYKZPST61.3 %(31.2-41.9 %) *MCV79.7 FL(79.0-98.0 FL) *MCH26.9 PG L(27.0-33.0 PG) *MCHC33.7 G/DL(32.0-36.0 G/DL) *RDW13.8 %(12.3-17.0 %) *RDWSD39.4(37.1-47.8 ) OMDRDEQO306 X10e3/UL(159-386 X10e3/UL) *MPV7.3 FL L(7.4-10.4 FL) AUTOMATED DIFFPERFORMED SEGS69.0 % *CVVBZAYILTO61.1 % *MONOCYTES7.6 % *EOSINOPHILS5.7 % *BASOPHILS0.6 % *ABSOLUTE PTRPVWOCIMH33.00 X10e3/UL H(1.80-7.80 X10e3/UL) *ABSOLUTE LYMPHOCYTES2.50 X10e3/UL(1.00-3.00 X10e3/UL) *ABSOLUTE MONOCYTES1.10 X10e3/UL H(0.30-1.00 X10e3/UL) *ABSOLUTE EOSINOPHILS0.80 X10e3/UL H(0.00-0.50 X10e3/UL) *ABSOLUTE BASOPHILS0.10 X10e3/UL(0.00-0.20 X10e3/UL) Problems Encounter Diagnosis Acute Pain Status:Active.Asthma Status:Active.Neoplasm of Kidney Status: Active.Postoperative Wound Infection Status:Active. Encounters Encounter Diagnosis Acute Pain Status:Active.Asthma Status:Active.Neoplasm of Kidney Status: Active.Postoperative Wound Infection Status:Active. Plan of Care Treatment Plan from 04/07/2016 5:25 PM:Care Management Note : Pt recently diagnosed with renal cancer. States she has support from her boyfriend, children , and confucianist. Pt planning to start chemo soon. Oncologist is in [place]. SW provided education on Palliative Care program and gave pt brochure. Pt states she will consider the program but may want to talk to her oncologist first. No other needs or concerns at this time.Treatment Plan from 04/07/2016 8:12 AM:Care Management Note : Patient is inpatient status. She presented to the ED due to abdominal pain, swelling, redness and leukocytosis with WBC's 17.8. At presentation she was one day post discharge from [facility] after having a right nephrectomy. She was found to have fluid and free air in the abdomen. Blood cultures have been obtained and she is on empiric IV antibiotics and IVF at 100 hr.Meets ,medical necessity for inpatient. Care management will follow, provide clinical information tocommercial insurance and assess for discharge needs. Procedures No relevant procedures performed. Immunizations No immunizations administered or ordered. Hospital Course Hospital Discharge Instructions How to care for yourself at home from 04/07/2016 9:00 PM:Discharge Activity : Activity as tolerated,No Tub BathDischarge Diet : Diet as toleratedCall your doctor if: : Fever over 101 F or severe chills,Chest pain or other unexplained symptoms,Tingling or numbness develops,A sudden increase or decrease in weight, You have persistent or worseningsymptoms,If you have Heart Failure and you gain 3pounds within 1 week or your symptoms worsen. (Weigh at home tomorrow morning) Specific Discharge Teaching Instructions provided: : NoDischarge on Warfarin : No Allergies, Adverse Reactions, Alerts Dilaudid causes unspecified.morphine causes unspecified.Penicillins causes unspecified.Zofran (as hydrochloride) causes Mild Headache.No Latex Allergy.No IV Contrast Allergy. Medication Medication reconciliation has not been performed.
--- OUTSIDE RECORDS SUMMARY | 2016-11-19 14:25 | External Medical Summary ---
:1985 Author Organization [facility] Address [address] [place], [place] [id number] Care Team Providers Name Role Phone Mikayla Barr Unavailable Unavailable PROBLEMS Type Condition ICD9-CM Code RJX68-NG Code Onset Condition SNOMED Code Dates Status Problem Renal cell C64.9 Active 178228710 carcinoma Assessment Acute URI J06.9 Jun, Active 16887346 2016 ALLERGIES Substance Reaction Event Type Date Status Penicillin G Potassium Unknown Drug Allergy Jun, Active SOCIAL HISTORY No smoking Hx information available PLAN OF CARE VITAL SIGNS Height 5 ft 5 in in 2016-06-13 Weight 196 lb 2 oz lbs 2016-06-13 BMI 32.63 kg/m2 2016-06-13 Temperature 97.9 degrees Fahrenheit 2016-06-13 Heart Rate 86 /min 2016-06-13 Respiratory Rate 18 /min 2016-06-13 Oximetry 96 % 2016-06-13 Blood pressure systolic 118 mm Hg 2016-06-13 Blood pressure diastolic 62 mm Hg 2016-06-13 MEDICATIONS Medication Instructions Dosage Frequency Start End Date Duration Status Date Cephalexin 500 Orally Twice a 1 capsule 12h 12 Jun, Jun, 10 day(s) Active MG day 2016 2016 OxyCODONE HCl (Schedule 30 Active ER 10 MG II Drug) (Prior Auth: Rx Ref#:[id number] 4) Hydrocodone-Ac (Schedule 10 Active etaminophen II Drug) 5-325 MG (Prior Auth: Rx Ref#:[id number] 5) RESULTS No Results PROCEDURES Procedure Date Ordered Related Diagnosis Body Site OFFICE VISIT EST PATIENT LEVEL 4 Jun 13, 2016 IMMUNIZATIONS No Known Immunizations
--- OUTSIDE RECORDS SUMMARY | 2016-11-19 14:25 | External Medical Summary ---
:1985 Author Organization [facility] Address [address] [place], [place] [address] Care Team Providers Name Role Phone Margot Valle Unavailable Unavailable PROBLEMS Type Condition ICD9-CM Code PRF88-SF Code Onset Condition SNOMED Code Dates Status Problem Renal cell C64.9 Active 900205132 carcinoma ALLERGIES Unknown Allergies SOCIAL HISTORY No smoking Hx information available PLAN OF CARE VITAL SIGNS MEDICATIONS Unknown Medications RESULTS No Results PROCEDURES No Known procedures IMMUNIZATIONS No Known Immunizations
--- OUTSIDE RECORDS SUMMARY | 2016-11-19 14:25 | External Medical Summary | Continuity of Care Document ---
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 04/15/2016 D Q07129 Nicotine dependence, cigarettes, uncomplicated 04/15/2016 D J31042 Cellulitis of abdominal wall 04/15/2016 D [id number] Infection following a procedure, initial encounter 04/15/2016 D Z8541 Personal history of malignant neoplasm of cervix uteri 04/15/2016 D Z881 Allergy status to other antibiotic agents status 04/15/2016 D Z885 Allergy status to narcotic agent status 04/15/2016 D Z905 Acquired absence of kidney Procedures Results Test Result Range CBC WITH PLATELET AND DIFFERENTIAL - 03/27/16 10:17 WBC 12.4 10*3/uL 3.6-11.2 RBC 5.21 3.63-4.92 HEMOGLOBIN 14.2 11.0-14.3 HEMATOCRIT 41.8 % 31.2-41.9 MCV 80.2 fL 79.0-98.0 MCH 27.2 pg 27.0-33.0 MCHC 33.9 32.0-36.0 RDW 13.9 % 12.3-17.0 RDWSD 39.4 37.1-47.8 MPV 7.4 fL 7.4-10.4 PLATELETS 316 10*3/uL 159-386 SEGS 68.6 % NRG *LYMPHOCYTES 21.0 % NRG *MONOCYTES 6.7 % NRG *EOSINOPHILS 2.8 % NRG *BASOPHILS 0.9 % NRG *ABSOLUTE NEUTROPHILS 8.50 10*3/uL 1.80-7.80 *ABSOLUTE LYMPHOCYTES 2.60 10*3/uL 1.00-3.00 *ABSOLUTE MONOCYTES 0.80 10*3/uL 0.30-1.00 *ABSOLUTE EOSINOPHILS 0.40 10*3/uL 0.00-0.50 *ABSOLUTE BASOPHILS 0.10 10*3/uL 0.00-0.20 AUTOMATED DIFF PERFORMED NRG COMPREHENSIVE METABOLIC PANEL - 03/27/16 10:17 TOTAL PROTEIN 7.0 6.4-8.2 ALBUMIN 3.4 3.4-5.0 *GLOBULIN 3.6 2.3-3.5 *A/G RATIO 0.9 1.5-2.2 BILIFUBIN TOTAL 0.70 0.20-1.00 ALK PHOS 93 U/L 46-116 ALT (SGPT) 20 U/L 16-63 AST (SGOT) 12 U/L 15-37 GFR ESTIMATION - 03/27/16 10:17 *GFR EST NON AFR PUERTO RICAN >90 mL/min NRG *GRFA EST AFR AMER >90 mL/min NRG LIPASE - 03/27/16 10:17 LIPASE 75 U/L 73-393 URINALYSIS (CULTURE PRN) - 03/27/16 11:42 *URINE COLOR STRAW STRAW/YELL/DK YELL *URINE APPEARANCE SL CLOUDY CLEAR *URINE GLUCOSE NEGATIVE NEGATIVE *URINE BILIRUBIN NEGATIVE NEGATIVE *URINE KETONES NEGATIVE NEGATIVE URINE SPECIFIC GRAVITY 1.010 <=1.005->=1.030 *URINE BLOOD TRACE-INTACT NEGATIVE URINE PH 6.5 5.0-8.0 *URINE PROTEIN NEGATIVE NEGATIVE *URINE UROBILINOGEN 0.2 0.2-1.0 *URINE NITRITES NEGATIVE NEGATIVE *URINE LEUKOCYTES NEGATIVE NEGATIVE URINE MICROSCOPIC - 03/27/16 11:42 WBC 1-5 /[HPF] 0-5 RBC 5-10 /[HPF] 0-1 SQUAMOUS EP. CELLS MANY /[LPF] NEG-FEW BACTERIA MANY /[HPF] NEGATIVE MICROSCOPIC EXAM PERFORMED PERFORMED NRG CULTURE URINE - 03/27/16 11:42 CULTURE URINE 50,000 cfu/ml-100,000 cfu/ml~3 or more gram positive colony NRG types~Suggestive of colonization or contamination LACTIC ACID - 04/06/16 01:22 LACTIC ACID 0.7 0.9-1.7 CBC WITH PLATELET AND DIFFERENTIAL - 04/06/16 01:22 WBC 17.8 10*3/uL 3.6-11.2 RBC 4.86 3.63-4.92 HEMOGLOBIN 13.2 11.0-14.3 HEMATOCRIT 38.5 % 31.2-41.9 MCV 79.2 fL 79.0-98.0 MCH 27.1 pg 27.0-33.0 MCHC 34.2 32.0-36.0 RDW 14.0 % 12.3-17.0 RDWSD 39.8 37.1-47.8 MPV 7.5 fL 7.4-10.4 PLATELETS 342 10*3/uL 159-386 SEGS 71.9 % NRG *LYMPHOCYTES 17.4 % NRG *MONOCYTES 5.6 % NRG *EOSINOPHILS 4.5 % NRG *BASOPHILS 0.6 % NRG *ABSOLUTE NEUTROPHILS 12.80 10*3/uL 1.80-7.80 *ABSOLUTE LYMPHOCYTES 3.10 10*3/uL 1.00-3.00 *ABSOLUTE MONOCYTES 1.00 10*3/uL 0.30-1.00 *ABSOLUTE EOSINOPHILS 0.80 10*3/uL 0.00-0.50 *ABSOLUTE BASOPHILS 0.10 10*3/uL 0.00-0.20 AUTOMATED DIFF PERFORMED NRG PROTHROMBIN TIME - 04/06/16 01:22 *PROTHROMBIN TIME 10.3 s 9.4-11.5 *INR 1.0 0.9-1.1 PARTIAL THROMBOPLASTIN TIME - 04/06/16 01:22 PARTIAL THROMBOPLASTIN TIME 32.4 s 23.0-31.0 URINALYSIS (CULTURE PRN) - 04/06/16 23:05 *URINE COLOR YELLOW STRAW/YELL/DK YELL *URINE APPEARANCE CLEAR CLEAR *URINE GLUCOSE NEGATIVE NEGATIVE *URINE BILIRUBIN NEGATIVE NEGATIVE *URINE KETONES NEGATIVE NEGATIVE URINE SPECIFIC GRAVITY <1.005 <=1.005->=1.030 *URINE BLOOD TRACE-INTACT NEGATIVE URINE PH 6.0 5.0-8.0 *URINE PROTEIN NEGATIVE NEGATIVE *URINE UROBILINOGEN 0.2 0.2-1.0 *URINE NITRITES NEGATIVE NEGATIVE *URINE LEUKOCYTES NEGATIVE NEGATIVE URINE MICROSCOPIC - 04/06/16 23:05 WBC 0-1 /[HPF] 0-5 RBC 1-5 /[HPF] 0-1 SQUAMOUS EP. CELLS MODERATE /[LPF] NEG-FEW MICROSCOPIC EXAM PERFORMED PERFORMED NRG CULTURE BLOOD - 04/06/16 23:29 CULTURE BLOOD No growth after 5 days of incubation. NRG COMPREHENSIVE METABOLIC PANEL - 04/07/16 01:22 TOTAL PROTEIN 7.6 6.4-8.2 ALBUMIN 3.4 3.4-5.0 *GLOBULIN 4.2 2.3-3.5 *A/G RATIO 0.8 1.5-2.2 BILIFUBIN TOTAL 0.80 0.20-1.00 ALK PHOS 99 U/L 46-116 ALT (SGPT) 33 U/L 16-63 AST (SGOT) 17 U/L 15-37 GFR ESTIMATION - 04/07/16 01:22 *GFR EST NON AFR PUERTO RICAN 62 mL/min NRG *GRFA EST AFR AMER 72 mL/min NRG LIPASE - 04/07/16 01:22 LIPASE 61 U/L 73-393 CULTURE BLOOD - 04/07/16 01:22 CULTURE BLOOD No growth after 5 days of incubation. NR CBC WITH PLATELET AND DIFFERENTIAL - 04/07/16 06:03 WBC 14.4 10*3/uL 3.6-11.2 RBC 4.43 3.63-4.92 HEMOGLOBIN 11.9 11.0-14.3 HEMATOCRIT 35.3 % 31.2-41.9 MCV 79.7 fL 79.0-98.0 MCH 26.9 pg 27.0-33.0 MCHC 33.7 32.0-36.0 RDW 13.8 % 12.3-17.0 RDWSD 39.4 37.1-47.8 MPV 7.3 fL 7.4-10.4 PLATELETS 307 10*3/uL 159-386 SEGS 69.0 % NRG *LYMPHOCYTES 17.1 % NRG *MONOCYTES 7.6 % NRG *EOSINOPHILS 5.7 % NRG *BASOPHILS 0.6 % NRG *ABSOLUTE NEUTROPHILS 10.00 10*3/uL 1.80-7.80 *ABSOLUTE LYMPHOCYTES 2.50 10*3/uL 1.00-3.00 *ABSOLUTE MONOCYTES 1.10 10*3/uL 0.30-1.00 *ABSOLUTE EOSINOPHILS 0.80 10*3/uL 0.00-0.50 *ABSOLUTE BASOPHILS 0.10 10*3/uL 0.00-0.20 AUTOMATED DIFF PERFORMED NRG COMPREHENSIVE METABOLIC PANEL - 04/07/16 06:03 SODIUM 140 mmol/L 136-145 POTASSIUM 3.7 mmol/L 3.5-5.1 CHLORIDE 104 mmol/L 98-107 TCO2 28.6 mmol/L 21.0-32.0 *ANION GAP 7.4 mmol/L 8.0-16.0 GLUCOSE 96 65-99 BUN 11 7-18 CREATININE 1.29 0.55-1.02 *BUN/CREATININE RATIO 8.5 9.1-17.0 CALCIUM 8.5 8.5-10.1 TOTAL PROTEIN 6.5 6.4-8.2 ALBUMIN 2.9 3.4-5.0 *GLOBULIN 3.6 2.3-3.5 *A/G RATIO 0.8 1.5-2.2 BILIFUBIN TOTAL 0.80 0.20-1.00 ALK PHOS 88 U/L 46-116 ALT (SGPT) 26 U/L 16-63 AST (SGOT) 13 U/L 15-37 Encounters ACCT No. Visit Discharge Status Pt. Type Provider Facility Loc./Unit Complaint Date/Time [id number] 03/24/2015 05/06/2016 DIS Outpatient [facility]RE[facility] 00:00:00 00:00:00 BHAVESH LINDER
--- OUTSIDE RECORDS SUMMARY | 2016-11-19 14:25 | External Medical Summary ---
:1985 Author Name GENERATED, SYSTEM Care Team Providers Name Role Phone UNASSIGNED DOCTOR MD NIYAH DOCTOR Primary Care Provider [phone] Reason For Visit Chief Complaint PRE EMPLOYMENT PHYSICAL Social History Functional Status Vital Signs Results Problems Encounter Diagnosis No relevant problems exist. Encounters Encounter Diagnosis No relevant problems exist. Plan of Care Procedures No relevant procedures performed. Immunizations No immunizations administered or ordered. Hospital Course Hospital Discharge Instructions Allergies, Adverse Reactions, Alerts Latex Allergy has not been assessed.IV Contrast Allergy has not been assessed. Medication Medication reconciliation has not been performed.
--- OUTSIDE RECORDS SUMMARY | 2016-11-19 14:25 | External Medical Summary ---
:1985 Author Organization [facility] Address [address] [place], [place] [address] Care Team Providers Name Role Phone Margot Valle Unavailable Unavailable PROBLEMS Unknown Problems ALLERGIES Unknown Allergies SOCIAL HISTORY No smoking Hx information available PLAN OF CARE VITAL SIGNS MEDICATIONS Unknown Medications RESULTS No Results PROCEDURES No Known procedures IMMUNIZATIONS No Known Immunizations
--- OUTSIDE RECORDS SUMMARY | 2016-11-19 14:26 | External Medical Summary ---
:1985 Author Organization [facility] Address [address] [place], [place] [address] Care Team Providers Name Role Phone Margot Valle Unavailable Unavailable PROBLEMS Type Condition ICD9-CM Code JGW01-DD Code Onset Condition SNOMED Code Dates Status Problem Renal cell C64.9 Active 620355962 carcinoma Assessment Pain and M79.602 May, Active 74007934 swelling of 2015 left upper extremity ALLERGIES Substance Reaction Event Type Date Status [...] 2016-05-29 MEDICATIONS Medication Instructions Dosage Frequency Start End Date Duration Status Date Percocet 5-325 Orally every 6 1 tablet 6h May, Jun, days Active MG hrs as needed 2015 2016 RESULTS Name Result Date Reference Range Ultrasound : Doppler : Veins Arm Left 2016-05-30 PROCEDURES Procedure Date Ordered Related Diagnosis Body Site OFFICE VISIT EST PATIENT LEVEL 3 May 29, 2016 IMMUNIZATIONS No Known Immunizations
--- OUTSIDE RECORDS SUMMARY | 2016-11-19 14:26 | External Medical Summary ---
:1985 Author Organization [employer] Care Team Providers Name Role Phone Momo Mikayla Provider Role Unavailable Allergies, Adverse Reactions, Alerts Substance Reaction Event Type Penicillin G Potassium Info Not Available Drug Allergy Problems Problem Type Condition Code Onset Dates Condition Status Assessment Low back pain M54.5 Active Assessment Abnormal urine finding R82.90 Active Assessment Right upper quadrant pain R10.11 Active Medications No Known Medications Procedures Procedure Coding System Code Date URINE CULTURE/COLONY COUNT.AMS CPT-4 90846 Mar 27, 2016 OFFICE VISIT EST PATIENT LEVEL 4 CPT-4 81319 Mar 27, 2016 URINALYSIS NONAUTO WO SCOPE CPT-4 41707 Mar 27, 2016 Vital Signs Date/Time: Mar 27, 2016 BMI 31.28 Index Weight 188 lbs Height 5 ft 5 in in Blood Pressure Diastolic 64 mm Hg Blood Pressure Systolic 108 mm Hg Cardiac Monitoring Heart Rate 94 /min Temperature 98.9 F Oximetry 98 % Respiratory Rate 18 /min Results Name Result Date Reference Range Unit Abnormality Flag Urinalysis (UA) - IH ----Leukocytes neg [id number] ----pH 6.0 43635374 ----Specific [place] 1.020 79111619 ----Ketones neg [id number] 0 - 0 ----Bilirubin neg 88301700 ----Nitrates neg [id number] ----Color yellow [id number] ----Protein neg [id number] 0 - 0 ----Character clear 20160327 ----Blood small 18044185 ----Urobilirubin 0.2 82133629 0.2 - 1 ----Glucose neg [id number] 0 - 0 Summary Purpose [employer] Submission
--- OUTSIDE RECORDS SUMMARY | 2016-11-19 14:26 | External Medical Summary | Continuity Of Care Document ---
:1985 Author Organization [facility] Address [address] [place] [address] Phone Care Team Providers Name Role Phone NON STAFF, PROVIDER Unavailable Unavailable GAMALIEL KING Attending Provider [phone] Results Lab Results Visit/Account #[id number] (April 03, 2016 5:33am - April 05, 2016 12:44pm ) Test Result Date/Time COMPLETE BLOOD COUNT WHITE BLOOD COUNT(4.0-11.0 10E3/UL) 13.1 10E3/UL April 03, 2016 5:58am 21.1 10E3/UL April 04, 2016 6:34am 15.3 10E3/UL April 05, 2016 9:42am RED BLOOD COUNT(4.00-5.20 10E6/UL) 5.37 10E6/UL April 03, 2016 5:58am 4.63 10E6/UL April 04, 2016 6:34am 4.92 10E6/UL April 05, 2016 9:42am HEMOGLOBIN(12.0-16.0 G/DL) 14.6 G/DL April 03, 2016 5:58am 12.6 G/DL April 04, 2016 6:34am 13.2 G/DL April 05, 2016 9:42am HEMATOCRIT(36.0-46.0 %) 43.4 % April 03, 2016 5:58am 37.6 % April 04, 2016 6:34am 41.1 % April 05, 2016 9:42am MEAN CORPUSCULAR VOLUME(82.0-100.0 FL) 80.8 FL April 03, 2016 5:58am 81.2 FL April 04, 2016 6:34am 83.5 FL April 05, 2016 9:42am 99928-4: MEAN CORPUSCULAR HEMOGLOBIN(26.0-34.0 PG) 27.2 PG April 03, 2016 5 :58am 27.2 PG April 04, 2016 6:34am 26.8 PG April 05, 2016 9:42am MEAN CORPUSCULAR HGB CONC(31.5-36.5 G/DL) 33.6 G/DL April 03, 2016 5:58am 33.5 G/DL April 04, 2016 6:34am 32.1 G/DL April 05, 2016 9:42am RED CELL DISTRIBUTION WIDTH(11.5-14.5 %) 13.4 % April 03, 2016 5:58am 13.9 % April 04, 2016 6:34am 14.3 % April 05, 2016 9:42am 777-3: PLATELET COUNT(150-450 10E3/UL) 361 10E3/UL April 03, 2016 5:58am 334 10E3/UL April 04, 2016 6:34am 325 10E3/UL April 05, 2016 9:42am MEAN PLATELET VOLUME(8.2-12.4 FL) 9.0 FL April 03, 2016 5:58am 9.5 FL April 04, 2016 6:34am 8.8 FL April 05, 2016 9:42am NUCLEATED RBCS (AUTO)(0-0 %) 0 % April 03, 2016 5:58am 0 % April 04, 2016 6:34am 0 % April 05, 2016 9:42am 56427-9: COMPLETE METABOLIC PROFILE GLUCOSE(70-110 MG/DL) 98 MG/DL April 03, 2016 5:58am BLOOD UREA NITROGEN(6-20 MG/DL) 13 MG/DL April 03, 2016 5:58am CREATININE(0.50-1.20 MG/DL) 0.69 MG/DL April 03, 2016 5:58am 99987-6: EST GLOMERULAR FILTRATION RATE(Greater than or equal to 60) Greater than or equal to 60 April 03, 2016 5:58am Result Comments: If the patient is of -Colombian descent/extraction multiply the eGFR value by 1.212 to obtain the actual eGFR. >=60 mg/dL Normal 30-59 mg/dL Moderate Kidney Disease 15-29 mg/dL Severe Kidney Disease <15 mg/dL Kidney Failure BUN CREATININE RATIO(10.0-20.0 RATIO) 19.0 RATIO April 03, 2016 5:58am SODIUM(135-145 MMOL/L) 137 MMOL/L April 03, 2016 5:58am POTASSIUM(3.6-5.0 MMOL/L) 4.0 MMOL/L April 03, 2016 5:58am CHLORIDE(101-111 MMOL/L) 106 MMOL/L April 03, 2016 5:58am CO2(21-31 MMOL/L) 21 MMOL/L April 03, 2016 5:58am ANION GAP(8-18) 14 April 03, 2016 5:58am OSMO CALCULATED(270.0-290.0) 273.9 April 03, 2016 5:58am CALCIUM(8.5-10.5 MG/DL) 9.4 MG/DL April 03, 2016 5:58am BILIRUBIN,TOTAL(0.1-1.2 MG/DL) 1.0 MG/DL April 03, 2016 5:58am ALKALINE PHOSPHATASE(42-121 IU/L) 72 IU/L April 03, 2016 5:58am ASPARTATE AMINO TRANSFERASE(10-42 IU/L) 16 IU/L April 03, 2016 5:58am ALANINE AMINOTRANSFERASE(10-60 IU/L) 18 IU/L April 03, 2016 5:58am TOTAL PROTEIN(6.4-8.2 G/DL) 7.3 G/DL April 03, 2016 5:58am ALBUMIN(3.5-5.5 G/DL) 4.0 G/DL April 03, 2016 5:58am GLOBULIN(2.4-3.6) 3.3 April 03, 2016 5:58am ALBUMIN/GLOBULIN RATIO(0.9-1.8 RATIO) 1.2 RATIO April 03, 2016 5:58am BASIC METABOLIC PANEL GLUCOSE(70-110 MG/DL) 106 MG/DL April 04, 2016 6:34am 92 MG/DL April 05, 2016 9:42am BLOOD UREA NITROGEN(6-20 MG/DL) 12 MG/DL April 04, 2016 6:34am 12 MG/DL April 05, 2016 9:42am CREATININE(0.50-1.20 MG/DL) 1.21 MG/DL April 04, 2016 6:34am 1.11 MG/DL April 05, 2016 9:42am 88135-0: EST GLOMERULAR FILTRATION RATE(Greater than or equal to 60) 53 April 04, 2016 6:34am Result Comments: If the patient is of -Colombian descent/extraction multiply the eGFR value by 1.212 to obtain the actual eGFR. >=60 mg/dL Normal 30-59 mg/dL Moderate Kidney Disease 15-29 mg/dL Severe Kidney Disease <15 mg/dL Kidney Failure 58 April 05, 2016 9:42am Result Comments: If the patient is of -Colombian descent/extraction multiply the eGFR value by 1.212 to obtain the actual eGFR. >=60 mg/dL Normal 30-59 mg/dL Moderate Kidney Disease 15-29 mg/dL Severe Kidney Disease <15 mg/dL Kidney Failure BUN CREATININE RATIO(10.0-20.0 RATIO) 10.0 RATIO April 04, 2016 6:34am 11.0 RATIO April 05, 2016 9:42am SODIUM(135-145 MMOL/L) 140 MMOL/L April 04, 2016 6:34am 138 MMOL/L April 05, 2016 9:42am POTASSIUM(3.6-5.0 MMOL/L) 3.9 MMOL/L April 04, 2016 6:34am 3.7 MMOL/L April 05, 2016 9:42am CHLORIDE(101-111 MMOL/L) 112 MMOL/L April 04, 2016 6:34am 110 MMOL/L April 05, 2016 9:42am CO2(21-31 MMOL/L) 21 MMOL/L April 04, 2016 6:34am 22 MMOL/L April 05, 2016 9:42am ANION GAP(8-18) 11 April 04, 2016 6:34am 10 April 05, 2016 9:42am OSMO CALCULATED(270.0-290.0) 279.6 April 04, 2016 6:34am 275.1 April 05, 2016 9:42am CALCIUM(8.5-10.5 MG/DL) 8.4 MG/DL April 04, 2016 6:34am 8.5 MG/DL April 05, 2016 9:42am 91890-0: MAGNESIUM 44046-5: MAGNESIUM(1.8-2.5 MG/DL) 2.0 MG/DL April 03, 2016 5:58am 2.2 MG/DL April 04, 2016 6:34am Bloodbank Results Visit/Account #[id number] (April 03, 2016 5:33am - April 05, 2016 12:44pm ) Test Result 882-1: ABO/RH O POSITIVE on April 03, 2016 5:58am 72142-8: BLOOD TYPE ANTIBODY SCREEN NEGATIVE on April 03, 2016 5:58am ANTIBODY SCREEN Allergies and Adverse Reactions Allergies and Adverse Reactions Patient Unit Number: [id number] Agent Type Reaction Severity Status PENICILLINS Drug Allergy RASH Mild Active MORPHINE Drug Adverse Reaction "crazy mood" Severe Active HYDROMORPHONE Drug Allergy aggitated Severe Active ONDANSETRON Drug Allergy bad headaches Severe Active Problem List Problem List Visit/Account #[id number] (April 03, 2016 5:33am - April 05, 2016 12:44pm ) Acute Problems: Code/Condition Comments Documented Start Date Documented Resolved Code(s) Date Renal mass ICD10: N28.89 Renal mass ICD9: 593.9 Renal mass SNOMED: 053499392 Renal mass Plan of Care Plan Of Care Visit/Account #[id number] (April 03, 2016 5:33am - April 05, 2016 12:44pm ) Patient Instructions Instructions DI for Nephrectomy Oxycodone Vital Signs Vital Signs Visit/Account #[id number] (April 03, 2016 5:33am - April 05, 2016 12:44pm ) Sign First Result Last Result Code(s) Blood Pressure 129/ 77 mm[Hg] On April 03, 2016 12:52pm 116/ 63 mm[Hg] On April 05, 2016 9:43am 8480-6 BP Systolic Heart Rate/Pulse Pulse Rate (adult): 65 /min On April 03, 2016 12:52pm Pulse Rate (adult): 68 /min On April 05, 2016 9:43am 8867-4 Heart Rate 8893-0 Pulse rate Respiratory Rate Respiratory Rate: 20 /min On April 03, 2016 12:52pm Respiratory Rate: 18 /min On April 05, 2016 9:43am 9279-1 Respiratory rate Temperature in Fahrenheit Temperature (Fahrenheit): 96.3 [degF] On April 5:46am Temperature (Fahrenheit): 98.4 [degF] On April 05, 2016 9: 43am 8310-5 Body Temperature Functional Status Functional and Cognitive Status No Functional Status Data Medications Home Medications - Medications that the patient was taking prior to arrival at the hospital Visit/Account #[id number] (April 03, 2016 5:33am - April 05, 2016 12:44pm ) Medication Route Sig/Schedule Precondition/Indication Comments/ Instructions Codes ADVIL(IBUPROFEN) 200 MG TABLET ORAL EVERY 4 HOURS PAIN OR FEVER Ibuprofen 200 MG Oral Tablet [Advil] (RxNorm): 083384 Dose: 200 MG ADVIL (IBUPROFEN) NDC: 06379005530 PERCOCET 5-325 MG TABLET(OxyCODONE HCL/ACETAMINOPHEN) 1 EACH TABLET ORAL EVERY 4 HOURS PAIN Acetaminophen 325 MG / Oxycodone Hydrochloride 5 MG Oral Tablet [Percocet] (RxNorm): 3815543 Dose: 1-2 TAB PERCOCET 5-325 MG TABLET (OxyCODONE HCL/ACETAMINOPHEN) NDC: 30097983704 ATIVAN(LORazepam) 1 MG TABLET ORAL AT BEDTIME ANXIETY Lorazepam 1 MG Oral Tablet [Ativan] (RxNorm): 897993 Dose: 1 MG ATIVAN (LORazepam) NDC: 24258221720 Inpatient/Ordered Medications - Medications administered during hospital visit Visit/Account #[id number] (April 03, 2016 5:33am - April 05, 2016 12:44pm ) Medication Route Sig/Schedule Precondition/Indication Comments/ Instructions Codes XYLOCAINE-MPF 1% INJ(LIDOCAINE HCL/PF) 20 MG/2 ML INJECTION INTRADERM NEEDED Label Comments: XYLOCAINE-MPF 1% INJ (LIDOCAINE HCL/PF) NDC: 25231361188 Dose: 0.1 ML For peripheral line insertion site. IV Medication INTRAVEN .Q0M (Rate: 0 MLS/HR Duration: 0 SEC) Carriers: Carriers: Calcium Chloride 0.0014 MEQ/ML / Potassium Chloride 0.004 MEQ/ML / Sodium Chloride 0.103 MEQ (RxNorm): 128691 LR(LACTATED RINGER'S) 1000 ML INJECTION LR (LACTATED RINGER'S) NDC: 53509113880 Dose: 1000 ML BENADRYL INJ(DiphenhydrAMINE HCL) 50 MG/ML INJECTION INTRAVEN .PSCU.LIN Diphenhydramine Hydrochloride 50 MG/ML Injectable Solution (RxNorm): 1226211 Dose: 0.25 ML BENADRYL INJ (DiphenhydrAMINE HCL) NDC: 60381589753 VERSED INJ(MIDAZOLAM HCL) 2 MG/2 ML INJECTION INTRAVEN .PSCU.LIN 2 ML Midazolam 1 MG/ML Injection (RxNorm): 4420347 Dose: 2 ML VERSED INJ (MIDAZOLAM HCL) NDC: 25568266687 TRANSDERM-SCOP 1.5 MG PATCH(SCOPOLAMINE) 1 PATCH PATCH TOPICALLY .PSCU.LIN 72 HR Scopolamine 0.0139 MG/HR Transdermal Patch [Transderm Scop] (RxNorm): 783347 Dose: 1 PATCH TRANSDERM-SCOP 1.5 MG PATCH (SCOPOLAMINE) NDC: 46877675283 IV Medication INTRAVEN .Preop (Rate: 100 MLS/HR Duration: 30 MIN) Clinical Indication: ABX Preop Prophylaxis Label Comments: Carriers: To be given by surgical staff within 1 hour of Carriers: surgical incision 50 ML Clindamycin 12 MG/ML Injection ( RxNorm): 400103 CLEOCIN 600 MG/50 ML(CLINDAMYCIN PHOSPHATE/D5W) 600 MG/50 ML INJECTION CLEOCIN 600 MG/50 ML (CLINDAMYCIN PHOSPHATE/D5W) NDC: 80774185628 Dose: 50 ML MARCAINE 0.25% MPF INJ(BUPIVACAINE) 30 ML INJECTION Route .[facility] MARCAINE 0.25% MPF INJ (BUPIVACAINE) NDC: 97997138840 Dose: 30 ML SUBLIMAZE INJ(FentaNYL CITRATE) 100 MCG/2 ML INJECTION INTRAVEN Q10M PRN Reason: SEVERE PAIN Special Dose Instructions: SUBLIMAZE INJ (FentaNYL CITRATE ) NDC: 54721526100 Dose: 0 ML PACU order only : 25-50 mcg max dose 100 mcg IV Medication INTRAVEN .Q8H (Rate: 125 MLS/HR Duration: 8 HR) Carriers: Carriers: Sodium Chloride 0.154 MEQ/ML Injectable Solution (RxNorm): 479562 NORMAL SALINE(SODIUM CHLORIDE) 1000 ML INJECTION NORMAL SALINE ( SODIUM CHLORIDE) NDC: 57894352525 Dose: 1000 ML TORADOL INJ(KETOROLAC TROMETHAMINE) 15 MG/ML INJECTION INTRAVEN EVERY 6 HOURS 1 ML Ketorolac Tromethamine 15 MG/ML Injection (RxNorm): 568222 Dose: 1 ML TORADOL INJ (KETOROLAC TROMETHAMINE) NDC: 99883439853 COLACE(DOCUSATE SODIUM) 100 MG CAP ORAL TWICE A DAY Docusate Sodium 100 MG Oral Capsule (RxNorm): 5903487 Dose: 200 MG COLACE (DOCUSATE SODIUM) NDC: 12452931126 ATIVAN(LORazepam) 1 MG TAB ORAL AT BEDTIME Label Comments: Lorazepam 1 MG Oral Tablet (RxNorm): 625462 Dose: 1 MG MAY INCREASE FALL RISK ATIVAN (LORazepam) NDC: 22517330246 PERCOCET 5/325(OxyCODONE/ACETAMINOPHEN) 1 TAB TAB ORAL EVERY 4 HOURS PRN Reason: PAIN Label Comments: Acetaminophen 325 MG / Oxycodone Hydrochloride 5 MG Oral Tablet (RxNorm): 0149246 Dose: 0 TAB MAX REC DOSE ACETAMINOPHEN: 4000MG/24HRS MAY INCREASE FALL RISK PERCOCET 5/325 (OxyCODONE/ACETAMINOPHEN) NDC: 01186541247 Special Dose Instructions: prn NICODERM 14 MG PATCH(NICOTINE) 1 PATCH PATCH TOPICALLY DAILY Label Comments: 24 HR Nicotine 0.583 MG/HR Transdermal Patch (RxNorm): 284103 Dose: 1 PATCH WEAR GLOVES FOR HANDLING OR WASH HANDS AFTER HANDLING. NICODERM 14 MG PATCH (NICOTINE) NDC: 96162668324 Discharge Medications - Medications that patient should continue to take. Review with physician Visit/Account #[id number] (April 03, 2016 5:33am - April 05, 2016 12:44pm ) Medication Route Sig/Schedule Precondition/Indication Comments/ Instructions Codes ADVIL(IBUPROFEN) 200 MG TABLET ORAL EVERY 4 HOURS PAIN OR FEVER Ibuprofen 200 MG Oral Tablet [Advil] (RxNorm): 995947 Dose: 200 MG ADVIL (IBUPROFEN) NDC: 40833741434 PERCOCET 5-325 MG TABLET(OxyCODONE HCL/ACETAMINOPHEN) 1 EACH TABLET ORAL EVERY 4 HOURS PAIN Acetaminophen 325 MG / Oxycodone Hydrochloride 5 MG Oral Tablet [Percocet] (RxNorm): 9285261 Dose: 1-2 TAB PERCOCET 5-325 MG TABLET (OxyCODONE HCL/ACETAMINOPHEN) NDC: 54792698679 ATIVAN(LORazepam) 1 MG TABLET ORAL AT BEDTIME ANXIETY Lorazepam 1 MG Oral Tablet [Ativan] (RxNorm): 415878 Dose: 1 MG ATIVAN (LORazepam) NDC: 55837044975 PERCOCET 7.5-325(OxyCODONE HCL/ACETAMINOPHEN) 1 EACH TABLET ORAL EVERY 4 HOURS PAIN Acetaminophen 325 MG / Oxycodone Hydrochloride 7.5 MG Oral Tablet [Percocet] (RxNorm): 4566643 Dose: 1 TAB PERCOCET 7.5-325 (OxyCODONE HCL/ACETAMINOPHEN) [facility] [place]: [id number] History Of Encounters Encounters Visit/Account #[id number] (April 03, 2016 5:33am - April 05, 2016 12:44pm ) Account Status Physican Of Reason For Visit Diagnosis Start Date/Time Stop Date/Time Record Visit [facility] [place]AMALIEL VALDERRAMA MD RENAL MASS N28.89: OTHER SPECIFIED DISORDERS OF KIDNEY AND URETER ICD10 Apr 03, 2016 5:33am Apr 03, 2016 5:33am IN GAMALIEL VALDERRAMA MD RENAL MASS N28.89: OTHER SPECIFIED DISORDERS OF KIDNEY AND URETER ICD10 Apr 03, 2016 12:29pm Apr 05, 2016 12:44pm History of Procedures Procedure List Visit/Account #[id number] (April 03, 2016 5:33am - April 05, 2016 12:44pm ) Code/Procedure Date [id number]: RESECTION OF RIGHT KIDNEY, OPEN APPROACH April 03, 2016 Discharge Instructions Discharge Instructions Visit/Account #[id number] (April 03, 2016 5:33am - April 05, 2016 12:44pm ) DISCHARGE INSTRUCTIONS Physician Documentation PROVIDER INSTRUCTIONS Discharge Diet As Tolerated Discharge Activity/Weight Bearing Status activity as tolerates Discharge Diet As Tolerated Discharge Activity/Weight Bearing Status activity as tolerates WOUND/INCISION/CATHETER CARE Incision/Wound Care may shower, wash incision with soap and water, pat dry may leave incision open to air REASON TO CALL PROVIDER Notify Physician if: incision becomes reddened, hot to the touch, pus like drainage or drainage with a foul odor temperature >101.5 any questions/concerns/problems uncontrollable pain FOLLOW UP APPOINTMENTS Follow Up Appointment Date/Time: 2-3 weeks in clinic--APRIL 24 @ 2:00 PM WITH Social History Social History No Social History Data. Immunizations Immunizations Patient Unit Number: [id number] Immunizations No immunizations recorded.
--- OUTSIDE RECORDS SUMMARY | 2016-11-19 14:26 | External Medical Summary | Continuity of Care Document ---
:1985 Author Organization [facility] Care Team Providers Name Role Phone DAVID ABDALLA MD Unavailable Unavailable Insurance Providers Payer Name Policy Number Subscriber Name Relationship [facility] [employer] [facility] [id number] Diana Grossman 19 Self Advance Directives Directive Response Recorded Date/Time Advanced Directives Type None 08/01/14 12:56pm Problems Medical Problems Problem Onset Date Status Viral illness Unknown Active Viral illness Unknown Active Medications Medication Dose Route Sig Days/Qty Instructions Order Discontinued Status Date Date Lurasidone HCl 40 Mg PO DAILY Active 5 Risperidone 5 Mg PO DAILY Active 5 Oseltamivir 75 Mg PO TWICE A 5 Days Take one Active Phosphate DAY capsules, by 5 mouth, two times a day. Social History Social History Problem Response Recorded [...] August 01, 2014 1:09pm Mental Status Alert August 01, 2014 1:09pm Oriented Disabilities None August 01, 2014 1:09pm Devices [...] F (96.8 - 99.1) Temperature (Calculated Celsius) 36.28896 degrees C (36.0 - 37.3) Pulse Rate (adult) 78 bpm (60 - 100) Respiratory Rate 18 breaths/min (10 - 20) O2 Sat by Pulse Oximetry 99 % (90 - 100) Blood Pressure 119/56 mm Hg Height 5 ft 5 in Weight 186 lb Body Mass Index 31.0 kg/m^2 Results Test Source Date Result Interp. Ref. Range Comments Influenza Type B August 01, Negative - Negative for Flu B Antigen 2014 1:06pm protein antigen. Assay sensitivity is90%. Influenza Type A August 01, Negative - Negative for Flu A Antigen 2014 1:06pm protein antigen. Assay sensitivity is90%. Procedures No known history of procedures. Encounters Encounter Location Date/Time Departed Emergency Room [facility] 08/01/14 12:10pm Recent Diagnosis
--- OUTSIDE RECORDS SUMMARY | 2016-11-19 14:26 | External Medical Summary ---
:1985 Author Name GENERATED, SYSTEM Care Team Providers Name Role Phone UNASSIGNED DOCTOR MD NIYAH DOCTOR Primary Care Provider [phone] Reason For Visit Chief Complaint RT RENAL MASS WITH RT FLANK PAIN Social History Functional Status Vital Signs Results Chemistry from 03/27/2016 10:17 [id number] MMOL/L(136-145 MMOL/L) POTASSIUM4.0 MMOL/L(3.5-5.1 MMOL/L) HJNCGGQX483 MMOL/L(98-107 MMOL/L) HWW959.1 MMOL/L(21.0-32.0 MMOL/L) *ANION GAP8.9 MMOL/L(8.0-16.0 MMOL/L) BUN8 MG/DL(7-18 MG/DL) CREATININE0.68 MG/DL(0.55-1.02 MG/DL) *BUN/CREATININE RATIO11.8(9.1-17.0 ) XQVAGSG24 MG/DL(65-99 MG/DL) *GFR EST NON AFR TUNISIAN>90 ML/MIN *GFR EST AFR AMER>90 ML/MIN CALCIUM9.1 MG/DL(8.5-10.1 MG/DL) BILIRUBIN TOTAL0.70 MG/DL(0.20-1.00 MG/DL) TOTAL PROTEIN7.0 GM/DL(6.4-8.2 GM/DL) ALBUMIN3.4 GM/DL(3.4-5.0 GM/DL) *GLOBULIN3.6 GM/DL H(2.3-3.5 GM/DL) *A/G RATIO0.9 MG/DL L(1.5-2.2 MG/DL) ALK PHOS93 U/L(46-116 U/L) ALT (SGPT)20 U/L(16-63 U/L) AST (SGOT)12 U/L L(15-37 U/L) QTBSKS77 U/L(73-393 U/L)Hematology from 03/27/2016 10:17 AMWBC12.4 X10e3/UL H( 3.6-11.2 X10e3/UL) RBC5.21 X10e6/UL H(3.63-4.92 X10e6/UL) FITNJELXQH28.2 G/DL(11.0-14.3 G/DL) QLQZFEACOD11.8 %(31.2-41.9 %) *MCV80.2 FL(79.0-98.0 FL) *MCH27.2 PG(27.0-33.0 PG) *MCHC33.9 G/DL(32.0-36.0 G/DL) *RDW13.9 %(12.3-17.0 %) *RDWSD39.4(37.1-47.8 ) JHSKISMY853 X10e3/UL(159-386 X10e3/UL) *MPV7.4 FL(7.4-10.4 FL) AUTOMATED DIFFPERFORMED SEGS68.6 % *NUTQECUOHFU08.0 % *MONOCYTES6.7 % *EOSINOPHILS2.8 % *BASOPHILS0.9 % *ABSOLUTE NEUTROPHILS8.50 X10e3/UL H(1.80-7.80 X10e3/UL) *ABSOLUTE LYMPHOCYTES2.60 X10e3/UL(1.00-3.00 X10e3/UL) *ABSOLUTE MONOCYTES0.80 X10e3/UL(0.30-1.00 X10e3/UL) *ABSOLUTE EOSINOPHILS0.40 X10e3/UL(0.00-0.50 X10e3/UL) *ABSOLUTE BASOPHILS0.10 X10e3/UL(0.00-0.20 X10e3/UL)Urinalysis from 03/27/2016 11:42 AM*URINE COLORSTRAW(STRAW/YELL/DK YELL ) *URINE APPEARANCESL CLOUDY A(CLEAR ) URINE PH6.5(5.0-8.0 ) URINE SPECIFIC GRAVITY1.010(<=1.005->=1.030 ) *URINE GLUCOSENEGATIVE MG/DL(NEGATIVE MG/DL) *URINE BILIRUBINNEGATIVE(NEGATIVE ) *URINE KETONESNEGATIVE MG/DL(NEGATIVE MG/DL) *URINE BLOODTRACE-INTACT A(NEGATIVE ) *URINE PROTEINNEGATIVE MG/DL(NEGATIVE MG/DL) *URINE UROBILINOGEN0.2 EU/DL(0.2-1.0 EU/DL) *URINE NITRITESNEGATIVE(NEGATIVE ) *URINE LEUKOCYTESNEGATIVE(NEGATIVE ) *MICROSCOPIC EXAM PERFORMEDPERFORMED *WBC URINE1-5 /HPF(0-5 /HPF) *RBC URINE5-10 /HPF A(0-1 /HPF) *SQUAMOUS EP. CELLSMANY /LPF A(NEG-FEW /LPF) *BACTERIAMANY /HPF A(NEGATIVE /HPF)CT Scan from 03/27/2016 11:52 AMCT ABD/ PELVIS W/CONTRASTHistory: Abdominal pain x2 weeks with right flank [...] MD Dictated: 03/27/2016 12:29 CT CHEST W/ CONTRASTHistory: renal mass and right sided abdominal pain [...]
--- OUTSIDE RECORDS SUMMARY | 2016-11-19 14:26 | External Medical Summary | Continuity of Care Document ---
:1985 Author Organization [facility] Care Team Providers Name Role Phone YENNIFER DIXON Unavailable Unavailable Insurance Providers Payer Name Policy Number Subscriber Name Relationship [facility] [id number] Diana Grossman 19 Self Advance Directives Directive Response Recorded Date/Time Advanced Directives Type None 08/28/14 9:04pm Problems Medical Problems Problem Onset Date Status Viral illness Unknown Active Viral illness Unknown Active Exacerbation of intermittent asthma Unknown Active Medications Medication Dose Route Sig Days/Qty Instructions Order Discontinued Status Date Date Lurasidone 40 Mg PO DAILY 08/01/ Active HCl 15 Risperidone 5 Mg PO DAILY 08/01/ Active 15 Oseltamivir 75 Mg PO TWICE A DAY 5 Days Take one 08/01/ Active Phosphate capsules, by 15 mouth, two times a day. Prednisone 40 Mg PO GIVE WITH 5 Days 08/28/ Active BREAKFAST 15 Social History Social History Problem Response Recorded [...] August 28, 2014 9:04pm Mental Status Alert August 28, 2014 9:04pm Oriented Disabilities None August 28, 2014 9:04pm Devices [...] F (96.8 - 99.1) Temperature (Calculated Celsius) 37.95371 degrees C (36.0 - 37.3) Pulse Rate [...] 2014 1:06pm protein antigen. Assay sensitivity is90%. Name: DIANA GROSSMAN Unit #: [id number] : 1985 Sex: F Loc / c: ED DOS: 08/28/14 Signed Report #: [id number] DIAGNOSTIC IMAGING REPORT TYPE OF EXAM: CHEST, PA& LATERAL Dictated By: OLI GÓMEZ MD INDICATION: ITS.REASON: cough shortness of air off and on for 2 weeks CHEST 2-VIEWS UPRIGHT (PA& LAT) COMPARISON: None FINDINGS: The lungs are [...] Encounters Encounter Location Date/Time Registered Emergency Room [facility] 08/28/14 8:46pm Registered Clinic [facility] 08/11/14 1:58pm Departed Emergency Room [facility] 08/01/14 12:10pm Recent Diagnosis
--- OUTSIDE RECORDS SUMMARY | 2016-11-19 14:26 | External Medical Summary ---
:1985 Author Organization [employer] Care Team Providers Name Role Phone Margot Valle Provider Role Unavailable Allergies No Known Allergies Problems No Known Problems Medications Medication Code System Code Instructions Start End Date Status Dosage Date Hydrocodone-Jalil [facility] 64517-885 7.5-325 MG Apr 01, Apr 10, 1 tablet taminophen 4-01 Orally every 8 2015 2015 as needed hours Results No Known Results Summary Purpose e[employer]Works Submission
--- OUTSIDE RECORDS SUMMARY | 2016-11-19 14:26 | External Medical Summary ---
:1985 Author Organization [employer] Care Team Providers Name Role Phone Mikayla Barr Provider Role Unavailable Allergies, Adverse Reactions, Alerts Substance Reaction Event Type Penicillin G Potassium Info Not Available Drug Allergy Problems Problem Type Condition Code Onset Dates Condition Status Assessment Acute bronchitis J20.9 Active Medications Medication Code System Code Instructions Start End Date Status Dosage Date Azithromycin [facility] 79375-381 250 MG Orally Mar 20, Mar 25, 2 tablets 6-09 Once a day 2015 2015 on the first day, then 1 tablet daily for 4 days Medrol (Vikas) [facility] 65562-000 4 MG Orally once Mar 20, Mar 26, as directed 6-04 a day 2015 2015 6 tabs x 1 day, 5 tabs x1 day, 4 tabs x 1 day, 3 tabs x 1 day, 2 tabs x 1 day, 1 tab x 1 Procedures Procedure Coding System Code Date OFFICE VISIT EST PATIENT LEVEL 4 CPT-4 05966 Mar 20, 2016 Vital Signs Date/Time: Mar 20, 2016 BMI 30.80 Index Weight 185 lb 2 oz lbs Height 5 ft 5 in in Blood Pressure Diastolic 68 mm Hg Blood Pressure Systolic 112 mm Hg Cardiac Monitoring Heart Rate 87 /min Temperature 98.1 F Oximetry 97 % Results No Known Results Summary Purpose eClinicalWorks Submission
--- OUTSIDE RECORDS SUMMARY | 2016-11-19 14:26 | External Medical Summary ---
:1985 Author Name GENERATED, SYSTEM Care Team Providers Name Role Phone YARY DREW KIMBERLEY Primary Care Provider [phone] Reason For Visit Chief Complaint M79.602 LT ARM PAIN AND SWELLING,VENOUS DOP UP ARM/NECK LT (DVT) Social History Functional Status Vital Signs Results Problems Encounter Diagnosis No relevant problems exist. Additional Problems Acute Pain Comment:Problem resolved by [facility] Work[facility] upon Discharge, Status: Resolved.Asthma Comment:Problem resolved by [facility] Work[facility] upon Discharge, Status:Resolved.Neoplasm of Kidney Comment:Problem resolved by [facility] Workflow upon Discharge, Status:Resolved.Postoperative Wound Infection Comment:Problem resolved by [facility] Workflow upon Discharge, Status:Resolved. Encounters Encounter Diagnosis No relevant problems exist. Plan of Care Procedures No relevant procedures performed. Immunizations No immunizations administered or ordered. Hospital Course Hospital Discharge Instructions Allergies, Adverse Reactions, Alerts Dilaudid causes unspecified.morphine causes unspecified.Penicillins causes unspecified.Zofran (as hydrochloride) causes Mild Headache.Latex Allergy has not been assessed.IV Contrast Allergy has not been assessed. Medication Medication reconciliation has not been performed.
--- OUTSIDE RECORDS SUMMARY | 2016-11-19 14:26 | External Medical Summary ---
:1985 Author Organization [facility] Address [address], [place] [id number] Care Team Providers Name Role Phone Mkiayla Barr Unavailable Unavailable PROBLEMS Type Condition ICD9-CM Code TTL66-SN Code Onset Condition SNOMED Code Dates Status Problem Renal cell C64.9 Active [id number] carcinoma ALLERGIES Unknown Allergies SOCIAL HISTORY No smoking Hx information available PLAN OF CARE VITAL SIGNS MEDICATIONS Unknown Medications RESULTS No Results PROCEDURES No Known procedures IMMUNIZATIONS No Known Immunizations
[2016-11-19] MEDS ORDERED: SALINE FLUSH 10ml SYRINGE IVF PRN (15:08)
--- NOTE | 2016-11-19 15:17 | History & Physical Report ---
<Erinn Tian - Last Filed: 11/19/16 17:00> History of Present Illness Date: 11/19/16 Chief complaint: headache HPI: Diana Grossman is a 31 y/o lady admitted to observation status for further evaluation of elevated ICP. She was Dx with renal cell CA 03/27/16 - had right kidney removed in Apr 2016 and then started having left arm pain, later determined to be metastatic lesions to her radius. Started oral chemo in July but gave her terrible side effects. PAC inserted in Sep, 2016 and started Opdivo , which has been going fairly well. Headaches onset in June but about 1 week ago began having dizziness/vertigo. Headache is described as a constant pulsing and pressure and pain in eyebrows. Worsens with positional changing, feels like room is spinning. Difficulty finding words, and vision became blurry. She's tried taking different nausea meds/pain meds without problems. Notes nausea that's also worsened last 1 1-2 weeks. Paresthesias to feet and 3 fingers to left hand (thumb, index, and middle ). Balance is off but she hasn't noticed any unilateral weakness. Endorses night sweats, short of breath and wheezing. No dysphagia. No chest pain or abdominal pain. No illness such as cough/cold. No rash/bruising/bleeding. No urinary or bowel changes. Saw neuro-ophtho @ [facility] last - concerned about idiopathic intracranial HTN/pseudotumor cerebrii. Recent labs on 11/19/16: TSH 1.70, WBC 13.4; hgb 14, hct 41.6, plt 301, Na 144, K 4.0, CO2 25, gap 14, BUN 14, Cr 1.0, glu 120, AP 80, AST 23, ALT 23 Review of Systems All systems: reviewed and no additional remarkable complaints except as stated Review of systems: see HPI PFSH Patient Stated Medical History Other HEENT Yes: PAPAL EDEMA-IIH Other Respiratory Yes: WHEEZING, SOA Renal cell CA Obesity - BMI 34.7 Surgical History: Right nephrectomy Apr, 2016. Left radial resection for bone mets Jul 2016. PAC September. Hysterectomy 2014. laparoscopies x4 - BTL, look at fallopian tubes. Tonsillectomy Family History: M - bipolar F - DM, alcoholic, schizophrenic Siblings - sister has DM MGF - of ND age 58 MGM - alive PGF - unknown PGM - alcoholic cirrhosis No hx of cancer in the family - possible hx of mom's uncle had kidney failure, 1 kidney - Social History Smoking status: Current every day smoker (5 cigs/day x 13 years) Substance use type: does not use Alcohol intake frequency: does not drink Household members: spouse, family, children (9 and 8) Medications Home Medications Medication Instructions Recorded Confirmed Type Compazine 10 mg PO PRN PRN 11/19/16 11/19/16 History [place] 7.5/325 7.5 mg PO PRN PRN 11/19/16 11/19/16 History Allergies Allergy/AdvReac Type Severity Reaction Status Date / Time ondansetron Allergy Intermediate Rash Verified 11/19/16 15:56 [From Zofran (as hydrochloride)] Penicillins Allergy Intermediate Rash Verified 11/19/16 15:55 Exam Vital Signs: Temp Pulse Resp BP Pulse Ox 97.7 F 75 16 104/92 H 95 11/19/16 14:30 11/19/16 14:30 11/19/16 14:30 11/19/16 14:30 11/19/16 14:30 Height: 1.65 m Weight: 94.6 kg Body Mass Index: 34.7 - Constitutional Present: no acute distress, well nourished, well developed, obese - Routine HEENT Exam Eye: Present: EOMI, PERRL, normal accommodation. Absent: conjunctival icterus, scleral injection ENT: Present: mucous membranes moist - Routine Neck Exam Present: supple, lymphadenopathy - Routine Respiratory Exam Present: CTA bilaterally - Routine Cardiovascular Exam Present: RRR, S1, S2 Comments: port to left chest wall - Routine Abdominal Exam Present: soft, normoactive bowel sounds, non distended, non tender - Routine Extremities Exam Present: no edema, pulses intact, normal capillary refill - Routine Skin Exam Present: intact, dry, warm - Routine Neurological Exam Present: alert, oriented X3, CN II-XII intact, vision grossly intact. 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 D/W WORKFORCE SERVICES REPRESENTATIVE and Dr. Ortega - pt is highly anxious about the procedure, requesting sedation with Versed and Propofol which after discussion with Dr. Ortega and Jaswant Mccall CRNA was not possible, so it was felt that to proceed with anxiolytics and pain control via LP under fluouroscopy. I spoke with Dr. Obregon on the phone about the delays, and the patients' hesitance to proceed without heavy sedation (she understandably doesn't want to go under more pain than she's already been through over the last several months), and he had a discussion via my hospital phone with Diana explaining to her the rationale for obtaining the LP. She agreed at that time to sign the consent. Will obtain consent for procedure and obtain opening pressures, and send CSF for routine studies including glucose, protein, cell count and differential, culture, and cytology. This was discussed with Dr. Obregon. For pain control - Dilaudid and Compazine IV (she takes both at home orally). Ativan for anxiety prior to procedure. Nursing staff may utilize the discharge post-LP routine and when patient meets all discharge criteria she may be discharged later this evening. Plan was also discussed with Dr. Malone. When radiology entered her room to review the consent, she refused the procedure. She understands why we are doing this and the risks involved for not obtaining this procedure and information. Would recommend f/u with Dr. Obregon and see if there are other locations that might be able to offer more sedation for further testing of pseudotumor cerebrii. I contacted Dr. Obregon to let him know that she decided to refuse the procedure, which is her decision. I also discussed this with Dr. Malone. She was subsequently discharged in the same condition she was admitted in earlier this afternoon. Hospital Course Summary Disclaimer: The visit summary below is not to be considered part of the above Progress Note. 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 Discussed case with and plan is to discharge pt and f/u with to figure out what options pt has. Hospital Course Summary Disclaimer: The visit summary below is not to be considered part of the above Progress Note.
[2016-11-19] MEDS ORDERED: PROCHLORPERAZINE 10 MG/2 ML VIAL IVP PRN (15:29)
[2016-11-19] MEDS ORDERED: HYDROMORPHONE 2 MG/ML INJECTION IVP PRN (15:29)
[2016-11-19] MEDS ORDERED: HYDROCODONE/APAP 7.5 MG/325 MG TABLET PO PRN (16:28)
--- NOTE | 2016-11-19 16:45 | Discharge Summary ---
Discharge Plan - Med Rec/Dispo Referrals/Follow Up: Mary Obregon MD [Physician] - (F/U with Dr. Obregon - call for appt) Prescriptions: Continue Compazine 10 mg PO PRN PRN PRN Reason: Pain [place] 7.5/325 7.5 mg PO PRN PRN PRN Reason: Pain - Disposition 01 Discharged Home, Self-Care
== END 2016-11-19 17:00 | disposition home or self-care (01) ==
LOC: MERGE 14:17 → SRG 14:17 → INTOOBSV 14:17
PROVIDERS: ADMIT Internal Medicine Medical Oncology; ATTEND Internal Medicine Medical Oncology

== ENCOUNTER → 2017-01-07 13:50 | Observation (INO) ==
[2017-01-06 14:24] VITALS: BMI 34.7
--- NOTE | 2017-01-06 14:47 | History & Physical Report ---
<Shima Madrigal V - Last Filed: 01/06/17 14:43> History of Present Illness Date: 01/06/17 Chief complaint: Diarrhea HPI: Diana is a 31 year old female who has a known history of Renal cell carcinoma and status post nephrectomy from April 2016. Unfortunately, she was found to have metastatic disease and had a left radial resection in July 2016. She has been started on Opdivo for 4 cycles. Over the past 2 week she has been having diarrhea. She had 2 episodes of bloody bright red diarrhea, however the blood has now resolved. She continues to have 5-7 loose stools daily. She was seen in the outpatient setting by Dr. Alegre today and had outpatient laboratory studies obtained. WBC count was 14.3, hemoglobin 14.1, hematocrit 41.2, platelet count 371. Sodium is 141, potassium 4.0, BUN 11, creatinine 1.0, glucose 91. LFTs are normal. Given the concern for continued loose stools along with her complex medical comorbidity. The hospitalist services were contacted and accepted patient for directed patient for further evaluation and treatment. She has recently had multiple other outpatient workups including a lumbar puncture done at [facility] on 12/02/16. This was followed by a neurologist appointment (name unknown) in [place] and she is scheduled shunt on 01/21/17. Review of Systems Comprehensive ROS: completed and no additional positive findings except those as stated - Gastrointestinal Gastrointestinal: Present: as per HPI, diarrhea, nausea PFSH Patient Stated Medical History Primary clear cell carcinoma of right kidney - 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 Asthma GERD Gastrointestinal Bleeding Hyperthyroidism Bilateral papilledema due to raised intracranial pressure Surgical History: Right nephrectomy Apr, 2016. Left radial resection for bone mets Jul 2016. PAC September. Hysterectomy 2014. laparoscopies x4 - BTL, look at fallopian tubes. Tonsillectomy Family History: Mother-bipolar. Father-diabetes, alcoholism, schizophrenia Siblings-diabetes Maternal grandfather-guided age 51 of [place] Paternal grand mother alcoholic cirrhosis - Social History Smoking status: Current every day smoker Substance use type: does not use Current residence: Apartment/Private Home Social history: Primary care provider-Maryam Valle-[facility] Oncology Dr. Betancur General surgeon, Dr. Landeros Scheduled to see Dr Keene for hyperthyroidism in January Medications Home Medications Medication Instructions Recorded Confirmed Type Hydrocodone/Acetaminophen [[place] 1 - 2 tab PO Q6H PRN #0 tab 10/21/16 01/06/17 History 7.5-325 Tablet] LORazepam [Ativan] 0.5 mg PO DAILY PRN 12/01/16 01/06/17 History FentaNYL PATCH [Duragesic Patch] 1 patch TD DAILY PRN 12/16/16 01/06/17 History Hydromorphone HCl [Dilaudid] 1 - 2 tab PO Q4-6H PRN 12/16/16 01/06/17 History Nivolumab [Opdivo] 40 mg IV Q2WKS 12/16/16 01/06/17 History Prochlorperazine Maleate 10 mg PO QID PRN 12/16/16 01/06/17 History [Compazine] Sucralfate [Carafate] 1 gm PO TID 01/06/17 01/06/17 History Allergies Allergy/AdvReac Type Severity Reaction Status Date / Time ibuprofen Allergy Severe DUE TO Verified 01/06/17 14:49 NEPHRECTOMY ondansetron Allergy Intermediate REALLY BAD Verified 01/06/17 14:49 HEADACHES Penicillins Allergy Intermediate Rash Verified 01/06/17 14:49 oxycodone AdvReac Intermediate SLEEPLESSNE Verified 01/06/17 14:49 SS morphine AdvReac Unknown "MAKES ME Verified 01/06/17 14:49 FEEL LIKE I'M GOING TO " Exam Height: 1.65 m Weight: 94.5 kg Body Mass Index: 34.7 - Constitutional Present: no acute distress, well nourished, well developed - Routine HEENT Exam Eye: Present: EOMI ENT: Present: mucous membranes moist, dentition normal - Routine Neck Exam Present: supple, full ROM - Routine Respiratory Exam Present: CTA bilaterally. Absent: wheezes - Routine Cardiovascular Exam Present: RRR, S1, S2, no murmur. Absent: murmur - Routine Abdominal Exam Present: soft, normoactive bowel sounds, non distended, non tender. 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 Pardo for colitis/ diarrhea Consultation is placed with Dr. Landeros for further evaluation, and surgical recommendations. Will likely require a colonoscopy for further evaluation of colitis/diarrhea. Will also place consultation with Dr. Alegre for further oncology care and recommendations. NS at 100 ml/hr for gentle hydration Obtain GI panel to rule out underlying infectious etiology Will Hold oral home medications Continue with fentanyl patch for chronic pain and will add IV Dilaudid as needed for breakthrough pain. IV Ativan as needed at at bedtime for sleeping. IV Compazine available as needed for nausea. SCDs to bilateral lower extremity for DVT prophylaxis Nicotine patch as requested by patient Will recheck CBC and BMP tomorrow morning to follow blood counts, renal function and electrolytes Sepsis Assessment - Evaluation Sepsis screening result: No Definite Risk Hospital Course Summary Disclaimer: The visit summary below is not to be considered part of the above Progress Note. Hospital Course: 01/06/17-Admission Impression Colitis/ Diarrhea Papilledema Renal cell carcinoma with nephrectomy Asthma Hyperthyroidism Chronic tobacco dependence Plan Admitted as outpatient observation under the care of Dr. Pardo for colitis/ diarrhea Consultation is placed with Dr. Landeros for further evaluation, and surgical recommendations. Will likely require a colonoscopy for further evaluation of colitis/diarrhea. Will also place consultation with Dr. Alegre for further oncology care and recommendations. NS at 100 ml/hr for gentle hydration Obtain GI panel to rule out underlying infectious etiology Will Hold oral home medications Continue with fentanyl patch for chronic pain and will add IV Dilaudid as needed for breakthrough pain. IV Ativan as needed at at bedtime for sleeping. IV Compazine available as needed for nausea. SCDs to bilateral lower extremity for DVT prophylaxis Nicotine patch as requested by patient Will recheck CBC and BMP tomorrow morning to follow blood counts, renal function and electrolytes <Nga Pardo - Last Filed: 01/06/17 19:25> History of Present Illness Date: 01/06/17 [facility] Patient Stated Medical History Other HEENT Yes: PAPAL EDEMA-IIH Asthma Yes Other Respiratory Yes: WHEEZING, SOA Gastroesophageal Reflux Yes Disease Gastrointestinal Bleeding Yes: new Hx Incontinence Yes: R/T surgery and chemo poss Other Yes: stage 4 kidney cancer with mets to bone Other Musculoskeletal Yes: mets to bone Cellulitis Yes: after kidney surgery Other Yes: power [facility] Medical History Hyperthyroidism (Chronic Medical 12/26/16) Primary clear cell carcinoma of right kidney (Chronic Medical) 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 Bilateral papilledema due to raised intracranial pressure (Acute Medical) Exam Vital Signs: Temperature 97.5 F 01/06/17 15:52 Pulse Rate 70 01/06/17 15:52 Respiratory Rate 16 01/06/17 15:52 Blood Pressure 118/69 01/06/17 15:52 Pulse Oximetry 94 01/06/17 15:52 Oxygen Delivery Method Room Air Height: 5 ft 5 in Weight: 208 lb 5.389 oz Assessment and Plan (1) 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 I reviewed the chart, the patient's history, and the SKULL CHOPPER/PA's documented findings as above. We discussed and formulated the assessment and plan as above with additions as below. Informant: Patient who is a reluctant historian, patient's current records, Dr. Alegre and Dr. Alegre's office visit from today. Chief complaint: diarrhea and blurred vision The patient is a very unfortunate 31-year-old white female with metastatic clear cell carcinoma of the kidney with TNM staging T3a, and no, M1, tumor size 7 cm, staging type pathologic. At the time of my visit the patient was requesting either a sandwich or a cigarette where she will would be leaving the hospital. Therefore most of my history was gleaned from the chart. According to Dr. Alegre's records the patient was seen with her boyfriend in his office earlier today. She has been complaining of diarrhea since her treatment with OpDivo (last treatment was 12/26/2016). On Friday and Friday she had some blood in her stool but none since. She has been having 4-6 stools a day associated with burning under her belly button. She has been feeling hot but no fevers. Because OpDivo (Nivolumab) which is a checkpoint inhibitor which primarily targets programmed cell -1 and PD-1 ligand receptors is associated with a unique spectrum of side effects termed immune-related adverse events (irAEs). She was admitted today for a bowel prep so she could undergo a colonoscopy with biopsies to rule out immune mediated colitis by Dr. Landeros in the morning. Personal history: The patient is originally from [place], [place]. She is planning on a trip there this weekend. She lives in [place] with her 9-year-old an 10-year-old sons and her boyfriend. 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 In general, the patient is alert and oriented 3, reluctant with exam, and in no respiratory distress. HEENT: Head is atraumatic, normocephalic, no conjunctival petechiae, no oral thrush, mucous membranes are moist and pink. Lungs: Clear to auscultation without wheezes, crackles or rhonchi CV: Regular rate and rhythm without murmur Abdomen: Soft, nontender, bowel sounds are present, there is no guarding no rebound, although she is mildly tender diffusely.. Extremities: No clubbing, no cyanosis, no edema. Skin: Warm and dry no sign of rash, surgical changes on the left lower arm noted Neuro: Patient is alert IV access: Right chest Port-A-Cath Impression: Diarrhea question drug related, vs other cause Stage III high risk renal cell carcinoma clear cell type with metastatic disease to the proximal radius on the left status post radiation for therapy of the left forearm Pseudotumor cerebri scheduled for a VRT MECHANIC shunt at [place] I believe Hyperthyroidism scheduled to see Dr. Keene Nicotine dependence anxiety GERD Recommendations: Will check stool samples to rule out other common causes of diarrhea Because diarrhea/colitis is a common clinical complaints impatiens undergoing treatment with checkpoint blocking antibodies agree with further evaluation with colonoscopy prior to initiation of directed therapy for immune-related adverse events. Hospital Course Summary Disclaimer: The visit summary below is not to be considered part of the above Progress Note.
[2017-01-06] MEDS: NS 1,000 ML IV SCH (15:55)
[2017-01-06] MEDS: NICOTINE 21 MG PATCH TD SCH (17:09)
--- NOTE | 2017-01-06 18:58 | Consultation ---
DATE OF CONSULTATION: 01/06/2017 HISTORY OF PRESENT ILLNESS This patient is 31 years old. 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 The patient underwent a right hand-assisted laparoscopic nephrectomy to treat the renal cell carcinoma of the right kidney on 04/03/2016. The patient did develop a metastasis to the left radius. The patient did undergo excision of the metastatic lesion at the left radius on 07/04/2016. The patient then received a palliative course of radiation to the left arm following this operation. The patient has been most recently treated with OpDivo chemotherapy. The patient states that she has developed another metastatic lesion since starting her treatment with OpDivo chemotherapy. The patient states she has also been found to have some increased intracranial pressure and is going to need a shunt for treatment of the increased intracranial pressure. The patient states that she normally experiences some degree of diarrhea after each chemotherapy treatment with OpDivo. She did have some diarrhea start on following a chemotherapy treatment with OpDivo. This particular episode of diarrhea has, however, persisted since 12/27/2016 which is much longer than usual. The patient has had cramping abdominal pain with this diarrhea. She has four to six loose bowel movements per day. She has already had two loose bowel movements today. This diarrhea is lasting much longer than any previous episode. She also had a couple of episodes of bright red rectal bleeding associated with this diarrhea. This particular cramping abdominal pain and diarrhea is not improving. It has lasted since 12/27/2016. The patient had an outpatient office visit with Dr. Alegre at the [facility] on 01/06/2017. White blood cell count was 14,300 at this time. Hemoglobin was 14.1. Hematocrit was 41.2. Platelet count was 371,000. There was a concern about the persistent diarrhea. It was thought that the patient may have some type of colitis. Dr. Alegre did recommend that the patient be admitted to the hospital at [facility] under the hospitalist service care for evaluation for possible colitis. Dr. Alegre did recommend that the patient undergo colonoscopy with biopsies as part of her evaluation for this cramping abdominal pain and diarrhea and rectal bleeding. PAST MEDICAL HISTORY Previous operations: 1. Tonsillectomy in 2004 at [place], [place]. 2. Diagnostic laparoscopy to look at fallopian tubes to see if they were blocked in 2005 at [place], [place]. 3. Laparoscopic bilateral tubal ligation in 2007 at [place], [place]. 4. Diagnostic laparoscopy with removal of clips from the fallopian tubes from the tubal ligation procedure in 2010 at [place], [place]. 5. Robotic hysterectomy and bilateral salpingo-oophorectomy on 10/05/[address] Darryl Koenig at [facility] at [place], [place]. Postoperative diagnoses were previous tubal ligation, JOSEPHINE 3 and right lower quadrant pain. 6. Right hand-assisted laparoscopic nephrectomy on 04/03/[address] Dom Stanton at [place], [place]. The right kidney did contain stage III clear cell renal carcinoma with lymphovascular invasion. 7. Surgical excision of metastatic lesion at head and proximal radial shaft of left radius on 07/04/[address] Arnold at [facility] at [place], [place]. This hospital is associated with [facility]. 8. Implantation of a PowerPort vascular access device on 10/22/[address] Landeros at [facility] at [place], [place]. Postoperative diagnosis was metastatic renal cell carcinoma. Other current medical problems: 1. Increased intracranial pressure. 2. Nicotine dependence. 3. Anxiety. 4. Hyperthyroidism. 5. Gastroesophageal reflux disease. PHYSICAL EXAMINATION VITAL SIGNS: Temperature is 97.5 degrees oral. Pulse is 70. Respiratory rate is 16. Blood pressure is 118/69. Oxygen saturation is 94% on room air. Height is 1.65 meters. Weight is 94.5 kg. BMI is 34.37 kg/m2. ABDOMEN: The patient does have old robotic laparoscopic hysterectomy incision scars. The patient does have old hand-assisted right nephrectomy incision scars. These incision scars include one vertically oriented scar along the right side of the umbilicus. There is no abdominal distention. The abdomen is soft. The patient does have mild diffuse abdominal tenderness. RECTUM: Exam deferred at this time. LABORATORY DATA The patient did have a CBC performed earlier today at the office of Dr. Alegre. White blood cell count was 14,300. Hemoglobin was 14.1. Hematocrit was 41.2. Platelet count was 371,000. Electrolytes were normal. Serum creatinine was 1. Liver function tests were all normal. IMPRESSION 1. Cramping abdominal pain, diarrhea and rectal bleeding since 12/27/2016 suggestive of acute colitis. 2. Stage IV metastatic renal cell carcinoma. 3. Increased intracranial pressure. 4. Hyperthyroidism. 5. Nicotine dependence. 6. Anxiety. 7. Gastroesophageal reflux disease. RECOMMENDATIONS 1. GI panel to rule out infectious etiology for the acute colitis. 2. Total colonoscopy with biopsies for evaluation of the cramping abdominal pain, rectal bleeding and diarrhea which is suggestive of acute colitis. PATIENT EDUCATION I did explain to the patient [id number] the nature of a colonoscopy with biopsies procedure. Expected benefits of this procedure were reviewed. Alternatives were reviewed. Potential risks and complications were also reviewed with the patient including anesthetic risk, aspiration, hypoxia, bleeding and colon perforation. The patient was told that colon perforation would need to be treated with an exploratory laparotomy and that the treatment could involve creation of a colostomy. Bowel prep was discussed with the patient. Questions were solicited from the patient. All of her questions were answered. The patient does wish to proceed. PLAN 1. Obtain stool specimen for a GI panel to look for infectious cause for the cramping abdominal pain, diarrhea and rectal bleeding. 2. Total colonoscopy with biopsies for evaluation of the cramping abdominal pain, diarrhea and rectal bleeding. 3. The patient states she is scheduled for implantation of a shunt for treatment of increased intracranial pressure on 01/21/2017. [facility] [place]
[2017-01-07] MEDS: SUCRALFATE 1 GM TABLET PO SCH (06:14)
[2017-01-07] MEDS: NS 1,000 ML IV SCH (06:32)
--- NOTE | 2017-01-07 08:17 | Consult Note ---
Oncology HPI - Data of Consult Patient: known to practice within the last 3 years Consult date: 01/07/17 Requesting Physician: Nga Pardo MD Primary Care Provider: YARY Fan Family Provider: YARY Rogers - Consult Narrative Reason for consult: Metastatic renal cell CA History of present illness: 31-year-old female patient, diagnosed in March 2016 with stage III high risk renal cell carcinoma, clear cell type. Unfortunately, she has developed bone metastasis to the left proximal radius. She underwent surgical excision of the metastatic lesion by Dr. Arnold in [place]. She was not able to tolerate Votrient which has caused mouth sores, nausea and vomiting. She completed a palliative course of radiation to the left arm. She was switched to Opdivo which was a started on 11/05/2016 with good tolerance. The patient presented with persistent headache blurred vision and nausea. She also developed urine incontinence. She was noted to have papilledema. She underwent lumbar puncture with sedation at [facility]. The opening pressure was elevated at 39. CSF negative for malignant cells. MRI of the brain was unremarkable. MRI of the spine showed a lesion at T4 and T9 suspicious for metastatic disease. She was seen by neurology and diagnosed with pseudotumor cerebri. She was started on Diamox with good tolerance and benefit. The patient continues to have persistent severe headache and blurring of vision with multiple ER visits. She stopped taking Diamox. Current treatment is Opdivo, last given 12/26/16. Seen in office yesterday with persistent loose stools/diarrhea and one episode of blood in stool. Admitted to [facility] for supportive care, further work up for colitis, and possible colonoscopy At time of intake this AM, alert and oriented. Continues with diarrhea, worsened by bowel prep. Denies blood in stool. Headache yesterday, denies today. Chief c/o is weakness, bloating. Denies fever/chills or acute abdominal pain. Review of Systems - Constitutional Constitutional: Present: anorexia, weakness - EENT Eyes: Present: blurry vision, change in vision Nose: Absent: nosebleeds Mouth/Throat: Absent: sore throat, hoarseness - Cardiovascular Cardiovascular: Present: dyspnea on exertion. Absent: chest pain, heart murmur - Respiratory Respiratory: Present: cough Additional comments: current smoker. Denies increased cough or SOA - Gastrointestinal Gastrointestinal: Present: abdominal pain, change in bowel habits, diarrhea - Genitourinary Genitourinary: Absent: difficulty urinating, urinary incontinence - Musculoskeletal Musculoskeletal: Present: muscle weakness - Integumentary/Breasts Integumentary: Absent: rash, wounds - Neurological Neurological: Present: confusion (hard to concentrate) - Psychiatric Psychiatric: Present: abnormal sleep pattern PFSH Patient Stated Medical History Other HEENT Yes: PAPAL EDEMA-IIH Asthma Yes Other Respiratory Yes: WHEEZING, SOA Gastroesophageal Reflux Yes Disease Gastrointestinal Bleeding Yes: new Hx Incontinence Yes: R/T surgery and chemo poss Other Yes: stage 4 kidney cancer with mets to bone Other Musculoskeletal Yes: mets to bone Cellulitis Yes: after kidney surgery [facility] Medical History Hyperthyroidism (Chronic Medical 12/26/16) Primary clear cell carcinoma of right kidney (Chronic Medical) 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 Bilateral papilledema due to raised intracranial pressure (Acute Medical) Surgical History: Right nephrectomy Apr, 2016. Left radial resection for bone mets Jul 2016. PAC September. Hysterectomy 2014. laparoscopies x4 - BTL, look at fallopian tubes. Tonsillectomy Family History: No FH cancer - Social History Smoking status: Current every day smoker (1/2 pack per day) Time spent discussing smoking cessation with patient: 3 to 10 minutes Current residence: Apartment/Private Home Medications Home Medications Medication Instructions Recorded Confirmed Type RX: Hydrocodone/Acetaminophen 1 - 2 tab PO Q6H PRN #0 tab 10/21/16 01/06/17 History [[place] 7.5-325 Tablet] RX: LORazepam [Ativan] 0.5 mg PO DAILY PRN 12/01/16 01/06/17 History Nivolumab [Opdivo] 40 mg IV Q2WKS 12/16/16 01/06/17 History RX: FentaNYL PATCH [Duragesic 1 patch TD DAILY PRN 12/16/16 01/06/17 History Patch] RX: Hydromorphone HCl [Dilaudid] 1 - 2 tab PO Q4-6H PRN 12/16/16 01/06/17 History RX: Prochlorperazine Maleate 10 mg PO QID PRN 12/16/16 01/06/17 History [Compazine] RX: Sucralfate [Carafate] 1 gm PO TID 01/06/17 01/06/17 History Allergies Allergy/AdvReac Type Severity Reaction Status Date / Time ibuprofen Allergy Severe DUE TO Verified 01/06/17 14:49 NEPHRECTOMY ondansetron Allergy Intermediate REALLY BAD Verified 01/06/17 14:49 HEADACHES Penicillins Allergy Intermediate Rash Verified 01/06/17 14:49 oxycodone AdvReac Intermediate SLEEPLESSNE Verified 01/06/17 14:49 SS morphine AdvReac Unknown "MAKES ME Verified 01/06/17 14:49 FEEL LIKE I'M GOING TO " Exam Vital signs: Temperature 97.5 F 01/07/17 07:28 Pulse Rate 71 01/07/17 07:28 Respiratory Rate 18 01/07/17 07:28 Blood Pressure 123/67 01/07/17 07:28 Pulse Oximetry 97 01/07/17 07:28 Oxygen Delivery Method Room Air - Constitutional no acute distress, well developed - Routine HEENT Exam Head: Present: normocephalic. Absent: facial swelling Eye: Present: EOMI, conjunctivae pink ENT: Present: mucous membranes moist - Routine Neck Exam Present: supple. Absent: lymphadenopathy - Routine Respiratory Exam Present: decreased breath sounds. Absent: wheezes, crackles - Routine Cardiovascular Exam Present: RRR. Absent: no murmur, gallop - Routine Abdominal Exam Present: soft. Absent: tenderness, rebound, mass - Routine Extremities Exam Absent: no edema, tenderness - Routine Skin Exam Present: intact, dry, pallor. Absent: rash - Routine Neurological Exam Present: alert, oriented X3, moving all extremities - Routine Psychiatric Exam Present: normal affect, normal thought process Oncology Results - Labs CBC & Chem 7: 01/07/17 03:54 01/07/17 03:54 Labs: Short CBC 01/07/17 Range/Units 03:54 WBC 13.1 H (4.5-11.0) T/MM3 Hgb 13.3 (12-16) GM/DL Hct 40.0 (36-46) % Plt Count 350 (130-400) T/MM3 [facility] 01/07/17 03:54 Sodium 142 Potassium 3.9 Chloride 109 H Carbon Dioxide 24 BUN 9.0 Creatinine 0.9 Glucose 96 Calcium 9.2 Assessment and Plan Assessment and Plan: 1. Metastatic RCC, clear cell type with metastasis to bones, on OpDivo. 2. Acute diarrhea; stool positive for c-difficile 3. Immune mediated toxicities including hyperthyroidism that would be a candidate to the early phases of Alise's thyroiditis. Currently does not appear to be thyrotoxic. Will evaluate adrenocortical axis with ACTH and cortisol. Diarrhea is worrisome for colitis. She would benefit from lower endoscopy. Treatment would be steroids. But would prefer to get colonoscopy prior to starting steroids. Will obtain sed rate and CRP blood cultures and would recommend CT scan of the abdomen pelvis. Discussed admission with Dr. Pardo. 4. Metastasis to the head and proximal radial shaft, s/p surgical resection, s/ p radiation therapy. 5. Persistent headache and blurring of vision and papilledema, due to pseudotumor cerebri, not responding to Diamox. Plan Flagyl as directed. Continue supportive care. Possible colonoscopy after recovers. Dr. Alegre to see later today if remains at [facility]. Otherwise, will see as outpatient. Sepsis Assessment - Evaluation Sepsis screening result: No Definite Risk
[2017-01-07] MEDS: NICOTINE 21 MG PATCH TD SCH (08:33)
[2017-01-07 10:32] VITALS: BP 117/69; PULSE 74; RESP 16; TEMP 98; O2SAT 96
--- NOTE | 2017-01-07 10:57 | Anesthesia Preoperative Report ---
Anesthesia Preoperative Record - Date and Time Date: 01/07/17 Preoperative Diagnosis: colitis Proposed Procedure: coloscopy NPO Since Date: 01/06/17 NPO Since Time: 23:00 Allergies/Adverse Reactions: Allergies Allergy/AdvReac Type Severity Reaction Status Date / Time ibuprofen Allergy Severe DUE TO Verified 01/06/17 14:49 NEPHRECTOMY ondansetron Allergy Intermediate REALLY BAD Verified 01/06/17 14:49 HEADACHES Penicillins Allergy Intermediate Rash Verified 01/06/17 14:49 oxycodone AdvReac Intermediate SLEEPLESSNE Verified 01/06/17 14:49 SS morphine AdvReac Unknown "MAKES ME Verified 01/06/17 14:49 FEEL LIKE I'M GOING TO " - Vital Signs Vital Signs: Temperature 98.0 F 01/07/17 10:25 Pulse Rate 74 01/07/17 10:25 Respiratory Rate 16 01/07/17 10:25 Blood Pressure 117/69 01/07/17 10:25 Pulse Oximetry 96 01/07/17 10:25 Oxygen Delivery Method Room Air Height and Weight: Height 1.65 m Weight 95.5 kg Body Mass Index 34.7 - Medications Inpatient Medications: Current Medications Fentanyl (Duragesic Patch) 25 mcg TD Q3D PRN PRN Reason: Pain Hydromorphone HCl (Dilaudid) 2 mg IVP Q3H PRN Sodium Chloride (Normal Saline) 1,000 mls @ 100 mls/hr IV .Q10H [facility] Last Admin: 01/07/17 06:32 Dose: 100 mls/hr Ketorolac Tromethamine (Toradol Inj) 30 mg IVP Q6H PRN PRN Reason: Pain Stop: 01/11/17 23:05 Lidocaine (Anecream5) 1 applic TOP PRN PRN Lorazepam (Ativan Inj) 1 mg IVP HS PRN Metronidazole (Flagyl) 500 mg PO TIDWM [facility] Nicotine (Nicoderm) 21 mg TD DAILY [facility] Last Admin: 01/07/17 08:33 Dose: 21 mg Nicotine (Nicotine Patch Removal) 1 removal TD DAILY [facility] Prochlorperazine Edisylate (Compazine Iv) 10 mg IVP Q6H PRN PRN Reason: Nausea &/or vomiting Sucralfate (Carafate) 1 gm PO ACHS PRN Home Medications: Home Medications Medication Instructions Recorded Confirmed Type Hydrocodone/Acetaminophen [[place] 1 - 2 tab PO Q6H PRN #0 tab 10/21/16 01/06/17 History 7.5-325 Tablet] LORazepam [Ativan] 0.5 mg PO DAILY PRN 12/01/16 01/06/17 History FentaNYL PATCH [Duragesic Patch] 1 patch TD DAILY PRN 12/16/16 01/06/17 History Hydromorphone HCl [Dilaudid] 1 - 2 tab PO Q4-6H PRN 12/16/16 01/06/17 History Nivolumab [Opdivo] 40 mg IV Q2WKS 12/16/16 01/06/17 History Prochlorperazine Maleate 10 mg PO QID PRN 12/16/16 01/06/17 History [Compazine] Sucralfate [Carafate] 1 gm PO TID 01/06/17 01/06/17 History - Medical History Respiratory: Reports: Asthma (last inhaler use last year ) Neuro/Musculoskeletal: Reports: Other (increased csf production, blurred vision ) Other History: Reports: Other (cancer of bone ) - Surgical History Neurological Surgeries: Reports: Other (increased csf and blurred vision ) Surgery/Treatment: REPORT: Other (right kidney removed) Musculoskeletal Surgery/Tx: Reports: Other (LT RADIUS FX R/T CANCER) Reproductive Surgery/Treatment: Reports: Hysterectomy Anesthesia Reactions: None Hx Family Anesthesia Reaction: No History of Motion Sickness: No - Social History Smoking Status: Current every day smoker packs per day: 0.5 Pack-years: 15 - Pertinent Findings Laboratory: CBC and BMP 01/07/17 03:54 01/07/17 03:54 BMP 01/07/17 03:54 Sodium 142 Potassium 3.9 Chloride 109 H Carbon Dioxide 24 BUN 9.0 Creatinine 0.9 Glucose 96 Calcium 9.2 EKG Rhythm: Normal Sinus Rhythm - Physical Exam Respiratory Exam: Present: lungs clear, bilateral breath sounds equal Cardiovascular Exam: Present: regular rate and rhythm, no murmur - Airway Assessment Mallampati Score: I TMD: 3 Fingerbreadths Neck Extension: good Overall Assessment: no airway concerns - ASA ASA Score: 2 - Plan Anesthesia: General TIVA - Discussion Discussion: Discussed risks/options/alternatives of anesthesia and questions answered. Patient consents. Nursing pain assessment noted. Attestation Statement: Prior to the delivery of any anesthetic medication, I examined the patient, developed the plan, obtained the patient's consent and discussed the risk and benefits of the procedure with the patient/guardian.
--- NOTE | 2017-01-07 12:40 | Discharge Instructions ---
Discharge Plan - Med Rec/Dispo Referrals/Follow Up: Rick Alegre MD [Physician] - (Make follow up apt for 1 week) Maryam Valle [Other] (Please make follow up apt ) Prescriptions: [place]NIDAZOLE [Flagyl] 500 mg PO TIDWM #30 tablet FentaNYL PATCH [Duragesic Patch] 25 mcg TD Q3D PRN patch PRN Reason: Pain Continue Hydrocodone/Acetaminophen [[place] 7.5-325 Tablet] 1 - 2 tab PO Q6H PRN #0 tab PRN Reason: Pain LORazepam [Ativan] 0.5 mg PO DAILY PRN PRN Reason: Anxiety FentaNYL PATCH [Duragesic Patch] 1 patch TD DAILY PRN PRN Reason: Pain Prochlorperazine Maleate [Compazine] 10 mg PO QID PRN PRN Reason: Nausea &/Or Vomiting Dicyclomine [Bentyl] 20 mg PO Q8HR PRN #20 tablet PRN Reason: Cramps Sucralfate [Carafate] 1 gm PO TID No Action Nivolumab [Opdivo] 40 mg IV Q2WKS Hydromorphone HCl [Dilaudid] 1 - 2 tab PO Q4-6H PRN PRN Reason: Pain Discharge Instructions/Outpatient Orders: Final Provider Discharge Instructions Location: Determined By Patient
--- NOTE | 2017-01-07 12:50 | Discharge Summary ---
<Shima Madrigal V - Last Filed: 01/07/17 12:46> Discharge Information Date of admission: 01/06/17 13:47 Anticipated date of discharge: 01/07/17 Attending Physician: Nga Pardo MD Primary care physician: YARY Rogers Consults: 01/06/17 14:30 Physician Consult [CONS] Routine Consulting Provider: Rick Alegre Reason For Exam: oncology Ordering Provider has Notified Lineman: Yes 01/06/17 14:31 Physician Consult [CONS] Routine Consulting Provider: Shayan Landeros Reason For Exam: Colitis? Ordering Provider has Notified Lineman: No - Discharge Diagnosis Discharge Diagnosis: C. difficile colitis Diarrhea Metastatic renal cell carcinoma - Laboratory Labs: 01/07/17 03:54 01/07/17 03:54 - Microbiology None - Radiology Radiology: None - Pathology None History of Present Illness HPI: Diana is a 31 year old female who has a known history of Renal cell carcinoma and status post nephrectomy from April 2016. Unfortunately, she was found to have metastatic disease and had a left radial resection in July 2016. She has been started on Opdivo for 4 cycles. Over the past 2 week she has been having diarrhea. She had 2 episodes of bloody bright red diarrhea, however the blood has now resolved. She continues to have 5-7 loose stools daily. She was seen in the outpatient setting by Dr. Alegre today and had outpatient laboratory studies obtained. WBC count was 14.3, hemoglobin 14.1, hematocrit 41.2, platelet count 371. Sodium is 141, potassium 4.0, BUN 11, creatinine 1.0, glucose 91. LFTs are normal. Given the concern for continued loose stools along with her complex medical comorbidity. The hospitalist services were contacted and accepted patient for directed patient for further evaluation and treatment. She has recently had multiple other outpatient workups including a lumbar puncture done at [facility] on 12/02/16. This was followed by a neurologist appointment (name unknown) in [place] and she is scheduled shunt on 01/21/17. Objective Vital signs: Temperature 98.0 F 01/07/17 10:25 Pulse Rate 74 01/07/17 10:25 Respiratory Rate 16 01/07/17 10:25 Blood Pressure 117/69 01/07/17 10:25 Pulse Oximetry 96 01/07/17 10:25 Oxygen Delivery Method Room Air - Constitutional Present: well nourished, well developed Hospital Course This is a general summary of the patient's hospital course. For more details refer to the complete medical record. Hospital course: 01/06/17-Admission Impression Colitis/ Diarrhea Papilledema Renal cell carcinoma with nephrectomy Asthma Hyperthyroidism Chronic tobacco dependence Plan Admitted as outpatient observation under the care of Dr. Pardo for colitis/ diarrhea Consultation is placed with Dr. Landeros for further evaluation, and surgical recommendations. Will likely require a colonoscopy for further evaluation of colitis/diarrhea. Will also place consultation with Dr. Alegre for further oncology care and recommendations. NS at 100 ml/hr for gentle hydration Obtain GI panel to rule out underlying infectious etiology Will Hold oral home medications Continue with fentanyl patch for chronic pain and will add IV Dilaudid as needed for breakthrough pain. IV Ativan as needed at at bedtime for sleeping. IV Compazine available as needed for nausea. SCDs to bilateral lower extremity for DVT prophylaxis Nicotine patch as requested by patient Will recheck CBC and BMP tomorrow morning to follow blood counts, renal function and electrolytes 01/07/17- Discharge Activity did undergo bowel prep with anticipation of having a colonoscopy today by Dr. Landeros. Unfortunately, she was found to have C. difficile on her stool panel. It was decided that colonoscopy would be postponed until the acute flare of C. difficile was resolved. Patient was placed on Flagyl 500 milligrams 3 times a day. She will continue this for a 10 day course. Otherwise, she will be discharged on her routine home medications. She is instructed to follow-up with Dr. Alegre in one week. Discharge Plan - Med Rec/Dispo Referrals/Follow Up: Maryam Valle [Other] (Please make follow up apt ) Rick Alegre MD [Physician] - ([phone] has an appoitment made.) Ramon Instructions: Clostridium Difficile Infection (DC) Prescriptions: New MetroNIDAZOLE [Flagyl] 500 mg PO TIDWM #30 tablet FentaNYL PATCH [Duragesic Patch] 25 mcg TD Q3D PRN patch PRN Reason: Pain Continue Hydrocodone/Acetaminophen [[place] 7.5-325 Tablet] 1 - 2 tab PO Q6H PRN #0 tab PRN Reason: Pain LORazepam [Ativan] 0.5 mg PO DAILY PRN PRN Reason: Anxiety FentaNYL PATCH [Duragesic Patch] 1 patch TD DAILY PRN PRN Reason: Pain Prochlorperazine Maleate [Compazine] 10 mg PO QID PRN PRN Reason: Nausea &/Or Vomiting Dicyclomine [Bentyl] 20 mg PO Q8HR PRN #20 tablet PRN Reason: Cramps Sucralfate [Carafate] 1 gm PO TID No Action Nivolumab [Opdivo] 40 mg IV Q2WKS Hydromorphone HCl [Dilaudid] 1 - 2 tab PO Q4-6H PRN PRN Reason: Pain Discharge Instructions/Outpatient Orders: Final Provider Discharge Instructions Location: Determined By Patient <Nga Pardo - Last Filed: 01/07/17 13:08> Discharge Information Date of admission: 01/06/17 13:47 Attending Physician: Nga Pardo MD Primary care physician: YARY Fan Consults: 01/06/17 14:30 Physician Consult [CONS] Routine Consulting Provider: Rick Alegre Reason For Exam: oncology Ordering Provider has Notified Lineman: Yes 01/06/17 14:31 Physician Consult [CONS] Routine Consulting Provider: Shayan Landeros Reason For Exam: Colitis? Ordering Provider has Notified Lineman: No 01/06/17 19:02 Consult to Anesthesiology [CONS] Routine Consulting Provider: YARY Culp Reason For Exam: Normal Procedure - Laboratory Labs: 01/07/17 03:54 01/07/17 03:54 Objective Vital signs: Temperature 98.0 F 01/07/17 10:25 Pulse Rate 74 01/07/17 10:25 Respiratory Rate 16 01/07/17 10:25 Blood Pressure 117/69 01/07/17 10:25 Pulse Oximetry 96 01/07/17 10:25 Oxygen Delivery Method Room Air Hospital Course This is a general summary of the patient's hospital course. For more details refer to the complete medical record. I have independently evaluated and examined this patient. I reviewed the chart, the patient's history, and the ELECTRONIC DEVICE MONITOR/PA's documented findings as above. We discussed and formulated the assessment and plan as above with additions as below. In general, the patient is alert and oriented 3, cooperative with exam, and in no respiratory distress. HEENT: Head is atraumatic, normocephalic, , mucous membranes are moist and pink. Lungs: Clear to auscultation without wheezes, crackles or rhonchi Right upper chest accessed Port-A-Cath. CV: Regular rate and rhythm without murmur Abdomen: Soft, nontender, bowel sounds are present, there is no guarding no rebound. Extremities: No clubbing, no cyanosis, no edema. Skin: Warm and dry no sign of rash Neuro: Patient is alert The patient was admitted and scheduled for colonoscopy this morning. Her C. difficile results ordered yesterday did come back positive. I discussed these findings with Dr. Landeros who relayed the information to Dr. Alegre. At this time ,it was elected to cancel her colonoscopy as her symptoms may be all related to C. difficile colitis. She'll be discharged home on metronidazole and follow up with Dr. Alegre next week.
[~2017-01-07 13:50] MED LIST changes: +HYDROMORPHONE 2 MG/ML INJECTION IVP PRN; +KETOROLAC 30 MG/ML INJECTION IVP PRN; +LIDOCAINE 5% CREAM 15gm TOP PRN; +MetroNIDAZOLE 500 MG TABLET PO SCH; +NICOTINE PATCH REMOVAL TD SCH; +PANTOPRAZOLE 40 MG INJECTION IVP ONE; +POLYETHYL. GLYCOL 3350 BOTTLE 238 GM PO ONE; +POLYETHYL. GLYCOL 3350 BOTTLE 238 GM PO SCH; +PROCHLORPERAZINE 10 MG/2 ML INJECTION IVP PRN; -SALINE FLUSH 10ml SYRINGE IVF PRN; +SUCRALFATE 1 GM TABLET PO PRN
== END | disposition home or self-care (01) ==
LOC: MED
PROVIDERS: ADMIT Internal Medicine Infectious Disease; ATTEND Internal Medicine Infectious Disease

== ENCOUNTER 2017-09-21 17:32 | Inpatient (IN) ==
--- NOTE | 2017-09-21 18:32 | Emergency Department Report ---
General Adult HPI - General Chief complaint: Upper Respiratory Infection Stated complaint: SOB, Weakness, cp Time Seen by Provider: 09/21/17 18:25 Source: patient Mode of arrival: ambulatory Limitations: no limitations - History of Present Illness HPI narrative: 32-year-old female presents to the emergency department with the chief complaint of fatigue and chest discomfort. Patient noted onset of symptoms at home over 2 weeks ago. Her symptoms have been persistent in nature since onset. She describes the chest discomfort as a midsternal burning sensation which is moderate in nature without radiation. This has been persistent for the past 2 weeks. She also notes a cough which is productive of either a clear or dark yellow mucus. She has been started on steroids by her electrical apprentice. She is currently taking a steroid burst. She called her oncologist Dr. Alegre who recommended the patient come to the emergency department for further evaluation and treatment at this time. He does note some improvement of symptoms with her nebulizer. No other complaints or associated symptoms. Her legs feel tired but are not truly numb. - Related Data Home Medications Medication Instructions Recorded Confirmed LORazepam [Ativan] 0.5 mg PO DAILY PRN 12/01/16 09/21/17 Denosumab [Xgeva] 1 dose SQ Q30D 04/06/17 09/21/17 Magic Mouthwash [Magic Mouthwash 5 ml PO Q4H PRN 04/06/17 09/21/17 (Lido/Maalox/Carafate)] Nystatin Oral Liq. [Mycostatin] 5 ml PO DAILY 04/06/17 09/21/17 Ranitidine [Zantac] 150 mg PO BID 04/06/17 09/21/17 Albuterol Sulfate [Proair Hfa] 2 puff INH Q4H PRN 09/09/17 09/21/17 Hydrocodone/APAP 7.5/325 [[place] 1 - 2 tab PO Q6H PRN 09/09/17 09/21/17 7.5/325] Hydromorphone HCl 4 - 8 mg PO Q4-6HR PRN 09/09/17 09/21/17 Levothyroxine Sodium 150 mcg PO ACB 09/09/17 09/21/17 Albuterol/Ipratropium [Duoneb] 1 unit AEROSOL Q6H 09/21/17 09/21/17 Levofloxacin [Levaquin] 500 mg PO DAILY 09/21/17 09/21/17 Nicotine Patch [Nicoderm] 14 mg TD DAILY 09/21/17 09/21/17 predniSONE [Prednisone] 60 mg PO DAILY 09/21/17 09/21/17 Allergies Allergy/AdvReac Type Severity Reaction Status Date / Time ibuprofen Allergy Severe DUE TO Verified 09/21/17 17:56 NEPHRECTOMY ondansetron Allergy Intermediate REALLY BAD Verified 09/21/17 17:56 HEADACHES Penicillins Allergy Intermediate Rash Verified 09/21/17 17:56 oxycodone AdvReac Intermediate SLEEPLESSNE Verified 09/21/17 17:56 SS morphine AdvReac Unknown "MAKES ME Verified 09/21/17 17:56 FEEL LIKE I'M GOING TO " Review of Systems Constitutional: Reports: fever (subjective. ), weakness (generalized weakness) Eyes: Denies: eye pain, vision change ENT: Denies: ear pain, throat pain Cardiovascular: Reports: chest pain. Denies: palpitations Respiratory: Reports: cough, wheezes. Denies: dyspnea Gastrointestinal: Denies: abdominal pain, nausea, vomiting, diarrhea Genitourinary: Denies: urgency, dysuria Musculoskeletal: Denies: back pain, arthralgia Integumentary: Denies: erythema, rash Neurological: Denies: headache, numbness, paresthesias Psychiatric: Denies: anxiety, depression Endocrine: Denies: polydipsia, polyuria Hematological/Lymphatic: Denies: easy bruising, lymphadenopathy Allergic/Immunologic: Denies: urticaria, itchy eyes PFSH Patient Stated Medical History Other HEENT Yes: PAPAL EDEMA-IIH Asthma Yes: last inhaler use last year Chronic Obstructive Pulmonary Yes Disease (COPD) Sleep Apnea No Other Respiratory Yes: WHEEZING, SOA; Emphysema Gastroesophageal Reflux Yes Disease Gastrointestinal Bleeding Yes Hx Incontinence Yes: R/T surgery and chemo poss Other Yes: stage 4 kidney cancer with mets to bone Other Musculoskeletal Yes: increased csf production, blurred vision Cellulitis Yes: after kidney surgery Clostridium Difficile Yes: December 2016 Other Yes: cancer of bone Now No Clinic Medical History (Last Reviewed 08/19/17 @ 11:48 by Zion Keene MD) Hyperthyroidism (Resolved Medical 12/26/16) Obesity (BMI 30-39.9) (Chronic Medical) 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 Alegre. Bilateral papilledema due to raised intracranial pressure (Acute Medical) Surgical History: Back surgery. Right nephrectomy Apr, 2016. Left radial resection for bone mets Jul 2016. PAC September 2016. lumbar shunt 01-27-2017. Hysterectomy 2014. laparoscopies x4 - BTL, look at fallopian tubes. 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 Tonsillectomy Family History: Family History (Last Reviewed 08/19/17 @ 11:48 by Zion Keene MD) Father Diabetes Sister Diabetes - Social History Smoking status: Former smoker Packs-years: 15 Substance use type: does not use Alcohol intake frequency: does not drink Household members: spouse, children, family Current occupational status: unemployed, disabled Current residence: Apartment/Private Home Physical Exam - Limitations Limitations: no limitations - General General appearance: alert, in no apparent distress - Normal Exams: Head:: Normocephalic without trauma Eyes:: Pupils are PERRLA w/ EOMI, No scleral icterus, irritation, or foreign bodies noted ENMT:: No facial trauma, nasal exudates, pharyngeal erythema, or exudates are noted Dental: No fractured, loose, or missing teeth noted Neck:: Full range of motion, without adenopathy, JVD, bruits or thyromegaly Chest/Respirations:: Clear all castillo, with good airflow, and symmetry bilaterally Cardiovascular:: Regular rate and rhythm, without murmur or gallop, Pulses 2+ all extremities, capillary refill, <2 seconds all extremities Abdomen:: Bowel sounds positive, soft, non-tender, non-distended, no hepatosplenomegaly, masses or bruits noted Lymphatic:: No lymphadenopathy, or lymphedema noted Musculoskeletal:: No tenderness, or deformity noted, good range of motion, all extremities Integumentary:: No rashes, hives, or bruising noted, hair and nails, without abnormality Neurological:: Patient is alert, and oriented, cranial nerves, motor/sensory/ cerebellar, exams w/o gross deficits, to observation Psychiatric:: Patient exhibits, appropriate attention, emotion and affect Course Vital Signs Temperature 98.7 F 09/21/17 17:34 Pulse Rate 95 09/21/17 17:34 Respiratory Rate 16 09/21/17 17:34 Blood Pressure 125/67 09/21/17 17:34 Pulse Oximetry 98 04/22/18 17:34 Temperature 98.7 F 09/21/17 17:34 Pulse Rate 84 09/21/17 21:30 Respiratory Rate 20 09/21/17 21:00 Blood Pressure 99/54 09/21/17 20:46 Pulse Oximetry 98 09/21/17 21:30 Medical Decision Making - [facility] Narrative Medical decision making narrative: Labs / imaging were discussed in detail with the patient and questions are answered. She is given 1 L normal saline intravenously. She declined offered analgesic pain medication in the emergency department. She is given Levaquin 750 mg IV 1 at 2056 when CTA chest was reviewed and sepsis was considered. She was never hypotensive in the emergency department and her lactic acid was less than 4. Patient is discussed with Dr. Rick Alegre who recommends admission to the hospital. Patient is discussed with the hospitalist service Dr. Aguilera who agrees to accept the patient to his service for further evaluation and treatment. Dr. Aguilera will make consultations to infectious disease and pulmonology. No further orders from accepting or consulting physicians who were in agreement with the current plan of management. She is admitted to the hospital in improved condition. Patient was given Levaquin 750 mg iv x 1 at 2056 when sepsis was considered. She was never hypotensive in the ED and her lactate was less than 4.0. - Differential Diagnosis PNA, UTI, Metabolic disorder, Dehydration - Lab Data Result diagrams: 09/21/17 19:10 09/21/17 19:10 Lab Results 09/21/17 09/21/17 09/21/17 Range/Units 18:40 19:10 19:10 WBC 27.2 H* (4.5-11.0) T/MM3 RBC 5.11 (4.00-5.20) M/MM3 Hgb 14.2 (12-16) GM/DL Hct 42.2 (36-46) % MCV 82.6 (80-100) UM3 MCH 27.8 (26-34) UUG MCHC 33.6 (31-37) GM/DL RDW Std Deviation 43.0 (36.9-50.2) FL Plt Count 369 (130-400) T/MM3 MPV 9.2 L (9.4-12.4) UM3 Immature Gran % (Auto) Not performed Neut % (Auto) Not performed Lymph % (Auto) Not performed [place] % (Auto) Not performed Eos % (Auto) Not performed Baso % (Auto) Not performed Neut # (Auto) Not performed Lymph # (Auto) Not performed [place] # (Auto) Not performed Eos # (Auto) Not performed Baso # (Auto) Not performed Abs Immat Gran (auto) Not performed Neutrophils % (Manual) 87.0 H (33-66) % Band Neutrophils % 2.0 (0-6) % Lymphocytes % (Manual) 8.0 L (23-45) % Monocytes % (Manual) 3.0 (0-9.0) % Neutrophils # (Manual) 23.7 H (1.8-7.7) T/MM3 Band Neutrophils # 0.5 T/MM3 Lymphocytes # (Manual) 2.2 (1-4.8) T/MM3 Monocytes # (Manual) 0.8 (0-0.8) T/MM3 RBC Morph Comment Normal Turbidity < 20 (0-20) Sodium 141 (134-144) MEQ/L Potassium 4.3 D (3.6-5) MEQ/L Chloride 102 (98-107) MEQ/L Carbon Dioxide 26 (22-30) MEQ/L Anion Gap 13 (5-15) meq/L BUN 21.0 H D (7-17) MG/DL Creatinine 1.0 (0.7-1.2) mg/dL GFR Calculation 65 BUN/Creatinine Ratio 21 (6-26) RATIO Glucose 194 H (65-110) MG/DL Calculated Osmolality 279 (261-280) MOSM/KG Calcium 9.6 (8.4-10.2) MG/DL Total Bilirubin 0.30 (0.20-1.30) MG/DL Icterus Index < 2 (0-7) AST 20 (14-36) U/L ALT 28 (1-35) U/L Alkaline Phosphatase 87 (38-126) U/L Troponin I < 0.012 (0-0.12) ng/ml Total Protein 7.0 (6.3-8.2) g/dL Albumin 4.3 (3.5-5.0) g/dL Globulin 2.7 (2.4-3.6) G/DL Albumin/Globulin Ratio 1.6 (1.1-2.2) RATIO Plasma Lactate 2.3 H (0.6-2.2) MMOL/L Procalcitonin NG/ML Specimen Hemolysis < 15 (0-25) Ur Collection Type Urine, void-cc/notcc Urine Color Yellow (YELLOW) Urine Clarity Clear Urine pH 6.5 (5.0-8.0) Ur Specific [place] 1.010 L (1.015-1.025) Urine Protein Negative (NEGATIVE) Urine Glucose (UA) Trace A (NEGATIVE) Urine Ketones Negative (NEGATIVE) Urine Occult Blood Negative (NEGATIVE) Urine Nitrate Negative (NEGATIVE) Urine Bilirubin Negative (NEGATIVE) Urine Urobilinogen 0.2 (NORMAL) EU/DL Ur Leukocyte Esterase Negative (NEGATIVE) Urinalysis Comment Microscopic not ind. 09/21/17 Range/Units 19:10 WBC (4.5-11.0) T/MM3 RBC (4.00-5.20) M/MM3 Hgb (12-16) GM/DL Hct (36-46) % MCV (80-100) UM3 MCH (26-34) UUG MCHC (31-37) GM/DL RDW Std Deviation (36.9-50.2) FL Plt Count (130-400) T/MM3 MPV (9.4-12.4) UM3 Immature Gran % (Auto) Neut % (Auto) Lymph % (Auto) [place] % (Auto) Eos % (Auto) Baso % (Auto) Neut # (Auto) Lymph # (Auto) [place] # (Auto) Eos # (Auto) Baso # (Auto) Abs Immat Gran (auto) Neutrophils % (Manual) (33-66) % Band Neutrophils % (0-6) % Lymphocytes % (Manual) (23-45) % Monocytes % (Manual) (0-9.0) % Neutrophils # (Manual) (1.8-7.7) T/MM3 Band Neutrophils # T/MM3 Lymphocytes # (Manual) (1-4.8) T/MM3 Monocytes # (Manual) (0-0.8) T/MM3 RBC Morph Comment Turbidity (0-20) Sodium (134-144) MEQ/L Potassium (3.6-5) MEQ/L Chloride (98-107) MEQ/L Carbon Dioxide (22-30) MEQ/L Anion Gap (5-15) meq/L BUN (7-17) MG/DL Creatinine (0.7-1.2) mg/dL GFR Calculation BUN/Creatinine Ratio (6-26) RATIO Glucose (65-110) MG/DL Calculated Osmolality (261-280) MOSM/KG Calcium (8.4-10.2) MG/DL Total Bilirubin (0.20-1.30) MG/DL Icterus Index (0-7) AST (14-36) U/L ALT (1-35) U/L Alkaline Phosphatase (38-126) U/L Troponin I (0-0.12) ng/ml Total Protein (6.3-8.2) g/dL Albumin (3.5-5.0) g/dL Globulin (2.4-3.6) G/DL Albumin/Globulin Ratio (1.1-2.2) RATIO Plasma Lactate (0.6-2.2) MMOL/L Procalcitonin < 0.05 NG/ML Specimen Hemolysis (0-25) Ur Collection Type Urine Color (YELLOW) Urine Clarity Urine pH (5.0-8.0) Ur Specific [place] (1.015-1.025) Urine Protein (NEGATIVE) Urine Glucose (UA) (NEGATIVE) Urine Ketones (NEGATIVE) Urine Occult Blood (NEGATIVE) Urine Nitrate (NEGATIVE) Urine Bilirubin (NEGATIVE) Urine Urobilinogen (NORMAL) EU/DL Ur Leukocyte Esterase (NEGATIVE) Urinalysis Comment - Radiology Data CTA chest: No central filling defects to suggest pulmonary embolism. Nonspecific groundglass opacities in the lungs. 8 mm noncalcified pleural based lesion in the left upper lobe. - EKG Data EKG #1 EKG results narrative: Sinus Rhythm. 96 bpm. No STEMI. Disposition Clinical Impression: Leukocytosis Qualifiers: Leukocytosis type: unspecified Qualified Code(s): D72.829 - Elevated white blood cell count, unspecified Pneumonia Qualifiers: Pneumonia type: due to unspecified organism Laterality: unspecified laterality Lung location: unspecified part of lung Qualified Code(s): J18.9 - Pneumonia, unspecified organism Disposition: To [facility] Acute Care Condition: Improved Time of Disposition: 19:30 (Admit. Dr. Aguilera. ) - Seen By: physician
--- OUTSIDE RECORDS SUMMARY | 2017-09-21 18:32 | External Medical Summary | Encounter Summary ---
:1985 Author Organization [facility] Address [address] [place] [address] Care Team Providers Name Role Phone Mary Obregon MD Referring Md Jose Alegre MD Unavailable No Pcp, Na Primary Care Provider Unavailable Encounter Details Date Type Department Care Team Description 07/31/2017 Ancillary Orders Rad Outpatient, Diagnosis unknown [address] [place] [address] Social History Tobacco Use Types Packs/Day Years Used Date Former Smoker 15 Quit: 06/02/2009 Smokeless Tobacco: Never Used Alcohol Use Drinks/Week oz/Week Comments No Sex Assigned at Date Recorded Not on file as of this encounter Functional Status Functional Status Response Date of Assessment Does the patient have a hearing impairment: No 07/06/2016 Does the patient have a visual impairment: No 07/06/2016 Does the patient have impaired ambulation: No 07/06/2016 Does the patient have an activity of daily living (ADL) No 07/06/2016 impairment: Does the patient have an instrumental activity of daily No 07/06/2016 living (IADL) impairment: Cognitive Status Response Date of Assessment Does the patient have a cognitive impairment: No 07/06/2016 as of this encounter Plan of Treatment Not on fileas of this encounter Results GENERAL RAD UPPER EXT EXTERNAL IMAGING (07/04/2017) Narrative This order has been auto finalized and does not contain a result. GENERAL RAD CHEST EXTERNAL IMAGING (06/20/2017) Narrative This order has been auto finalized and does not contain a result. in this encounter Visit Diagnoses Diagnosis Diagnosis unknown Other unknown and unspecified cause of morbidity or mortality
--- OUTSIDE RECORDS SUMMARY | 2017-09-21 18:32 | External Medical Summary | Continuity of Care Document ---
:1985 Author Organization [facility] Care Team Providers Name Role Phone [employer] Unavailable Unavailable Encounters Location Location Encounter Encounter Reason Attending ADM DC Status Source Details Type Number For Provider Date Date Visit OUTPATIENT [id number] AN 08/08 08/08 Active [facility] /2016 [facility] O 07/04 07/04 Active /2017 [facility] OUTPATIENT [id number] AN 07/31 07/31 Active [facility] OUTPATIENT [id number] AN 07/31 07/31 Active [facility]
--- OUTSIDE RECORDS SUMMARY | 2017-09-21 18:32 | External Medical Summary | Encounter Summary ---
:1985 Author Organization [facility] Address [address] [place] [address] Care Team Providers Name Role Phone Mary Obregon MD Referring Md Jose Alegre MD Unavailable No Pcp, Na Primary Care Provider Unavailable Encounter Details Date Type Department Care Team Description 07/31/2017 Hospital Encounter [facility] Atif Arnold [facility] Rad[facility] G, [address] [place], [place] [id number] [place] [address] [place] [address] [phone] Social History Tobacco Use Types Packs/Day Years [...] impairment: No 07/06/2016 as of this encounter Medications at Time of Discharge Medication Sig. Disp. Refills Start Date End Date acetaminophen (TYLENOL) 325 Take 325 mg by mouth mg tablet every 4 hours as needed for Pain. HYDROcodone/acetaminophen Take 1 Tab by mouth (NORCO) 7.5/325 mg tablet every 4 hours as needed for Pain HYDROMORPHONE HCL (DILAUDID Take 4 mg by mouth PO) every 4-6 hours as needed. levothyroxine (SYNTHROID) 150 07/30/2017 mcg tablet MULTIVITAMIN PO Take by mouth. oxyCODONE SR (OXYCONTIN) 20 Take 20 mg by mouth mg tablet every 12 hours ranitidine(+) (ZANTAC) 150 mg 07/30/2017 tablet as of this encounter Plan of Treatment Not on fileas of this encounter Results FOREARM 2 VIEWS LEFT (07/31/2017 3:19 PM) Specimen Performing Laboratory Left [facility] RAD RESULTS Impressions Findings/Impression: Redemonstration of resection of the proximal one fourth of the radius including the radial head region with several surgical alida and coiling material overlying soft tissues about surgical site. Findings are similar to the prior exam. No new lytic or blastic osseous lesions. Ulnohumeral articulation is preserved. No joint effusion. Imaged wrist articulation is within the normal limits. Finalized by OSKAR KIRBY on 07/31/2017 3:45 PM. Dictated by OSKAR KIRBY on 07/31/2017 3:31 PM. 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 Findings are similar to the prior exam. No new lytic or blastic osseous lesions. Ulnohumeral articulation is preserved. No joint effusion. Imaged wrist articulation is within the normal limits. Finalized by OSKAR KIRBY on 07/31/2017 3:45 PM. Dictated by OSKAR KIRBY on 07/31/2017 3:31 PM. in this encounter Visit Diagnoses Diagnosis Metastatic renal cell carcinoma, unspecified laterality (HCC)
--- OUTSIDE RECORDS SUMMARY | 2017-09-21 18:32 | External Medical Summary | Clinical Summary ---
:1985 Author Organization [facility] Address [address] [place] [address] Care Team Providers Name Role Phone Mary Obregon MD Referring Md Jsoe Alegre MD Unavailable No Pcp, Na Primary Care Provider Unavailable Source Comments Some departments are not documenting in the electronic medical record. If you do not see the information that you expected, contact Release of Information in the Health Information Management department at [phone] for further assistance in locating additional records.[facility] Allergies Active Allergy Reactions Severity Noted Date Comments Penicillins RASH Medium 06/25/2016 Ondansetron HEADACHE, RASH Medium 06/27/2016 Current Medications Prescription Sig. Disp. Refills Start Date End Date Status acetaminophen (TYLENOL) Take 325 mg by Active 325 mg tablet mouth every 4 hours as needed for Pain. oxyCODONE SR (OXYCONTIN) Take 20 mg by Active 20 mg tablet mouth every 12 hours HYDROMORPHONE HCL Take 4 mg by mouth Active (DILAUDID PO) every 4-6 hours as needed. HYDROcodone/acetaminophen Take 1 Tab by Active (NORCO) 7.5/325 mg tablet mouth every 4 hours as needed for Pain levothyroxine (SYNTHROID) 07/30/2017 Active 150 mcg tablet ranitidine(+) (ZANTAC) 150 07/30/2017 Active mg tablet MULTIVITAMIN PO Take by mouth. Active Active Problems Problem Noted Date Metastatic cancer to bone (HCC) 07/05/2016 Encounters Date Type Specialty Care Team Description 07/31/2017 Office Visit Oncology Atif Arnold MD Metastatic cancer to bone (HCC) 07/31/2017 Hospital Encounter Radiology Atif Arnold MD 07/31/2017 Ancillary Orders Radiology Outpatient, Radiologist Diagnosis unknown 07/11/2017 Orders Only Oncology Atif Arnold MD Metastatic renal cell carcinoma, unspecified laterality (HCC) (Primary Dx) 07/04/2017 Hospital Encounter Radiology from Last 3 Months Family History Medical History Relation Name Comments Diabetes Father Diabetes Sister Relation Name Status Comments Father Sister Social History Tobacco Use Types Packs/Day Years Used Date Former Smoker 15 Quit: 06/02/2009 Smokeless Tobacco: Never Used Alcohol Use Drinks/Week oz/Week Comments No Sex Assigned at Date Recorded Not on file Last Filed Vital Signs Vital Sign Reading Time Taken Blood Pressure 119/66 07/31/2017 3:09 PM STUDENT SUCCESS COUNSELOR Pulse 89 07/31/2017 3:09 PM STUDENT SUCCESS COUNSELOR Temperature 36.4 C (97.6 F) 07/31/2017 3:09 PM STUDENT SUCCESS COUNSELOR Respiratory Rate 18 07/31/2017 3:09 PM STUDENT SUCCESS COUNSELOR Oxygen Saturation 100% 07/31/2017 3:09 PM STUDENT SUCCESS COUNSELOR Inhaled Oxygen Concentration - - Weight 91.7 kg (202 lb 3.2 oz) 08/08/2016 3:29 PM STUDENT SUCCESS COUNSELOR Height 167.6 cm (5' 6") 07/31/2017 3:09 PM STUDENT SUCCESS COUNSELOR Body Mass Index 32.66 08/08/2016 3:29 PM STUDENT SUCCESS COUNSELOR Plan of Treatment Health Maintenance Due Date Last Done Comments PHYSICAL (COMPREHENSIVE) EXAM 1993 PERTUSSIS VACCINE 1997 HIV SCREENING 2001 TETANUS VACCINE 2003 CERVICAL CANCER SCREENING 2016 INFLUENZA VACCINE 03/02/2018 Implants Implanted Type Area Air Chief Marshal Device Identifier Expiration Model / Date Serial / Lot Coil Embolization 4cm .02in 2mm Penumbra Coil 400 Kasey - S. Left: Arm PENUMBRA [id number] 03/23/2024 [id number] / Implanted: Qty: 1 on 07/04/2016 by Buzz Dumont MD . / [id number] Coil Embolization 2cm .02in 2mm Penumbra Coil 400 Kasey - S. Left: Arm PENUMBRA [id number] 05/18/2024 [id number] / Implanted: Qty: 1 on 07/04/2016 by Buzz Dumont MD . / [id number] Coil Embolization 2cm .02in 2mm Penumbra Coil 400 Kasey - S. Left: Arm PENUMBRA [id number] 03/23/2024 [id number] / Implanted: Qty: 1 on 07/04/2016 by Buzz Dumont MD . / [id number] Coil Embolization 2cm .02in 2mm Penumbra Coil 400 Kasey - S. Left: Arm PENUMBRA [id number] 05/18/2024 [id number] / Implanted: Qty: 1 on 07/04/2016 by Buzz Dumont MD . / [id number] Coil Embolization 4cm .02in 2mm Penumbra Coil 400 Kasey - S. Left: Arm PENUMBRA [id number] 05/12/2024 [id number] / Implanted: Qty: 1 on 07/04/2016 by Buzz Dmuont MD . / [id number] Coil Embolization 2cm .02in 2mm Penumbra Coil 400 Kasey - S. Left: Arm PENUMBRA [id number] 04/22/2024 [id number] / Implanted: Qty: 1 on 07/04/2016 by Buzz Dumont MD . / [id number] Coil Embolization 4cm .02in 2mm Penumbra Coil 400 Kasey - S. Left: Arm PENUMBRA [id number] 04/07/2024 [id number] / Implanted: Qty: 1 on 07/04/2016 by Buzz Dumont MD . / [id number] Sphere Embolization Yellow Embosphere 100-300um Microsphere - S. Left: Arm BIOSPHERE MED [id number] 11/29/2018 [id number] / Implanted: Qty: 1 on 07/04/2016 by Buzz Dumont MD . / [id number] Device Closure 70cm 6fr Angio-Seal Vip .035in Vascular Right: [facility] MED 03/01/2017 [id number] / Implanted: Qty: 1 on 07/04/2016 by Buzz Dumont MD Femoral . / Artery [id number] Tisseel 10 Ml Left: Arm DOLAN 11/29/2017 [id number] / Implanted: Qty: 1 on 07/05/2016 by Atif Arnold MD N/A / [id number] Nerve Protector Left: Arm AXOGEN 11/15/2017 [id number] / Implanted: Qty: 1 on 07/05/2016 by Atif Arnold MD N/A / [id number] Results FOREARM 2 VIEWS LEFT (07/31/2017 3:19 [...] Interface, Radiant Results - 07/31/2017 3:48 PM STUDENT SUCCESS COUNSELOR FOREARM 2 VIEWS LEFT Indication: s/p Radical [...] by OSKAR KIRBY on 07/31/2017 3:31 PM. GENERAL RAD UPPER EXT EXTERNAL IMAGING (07/04/2017) Narrative This order has been auto finalized and does not contain a result. from Last 3 Months
--- OUTSIDE RECORDS SUMMARY | 2017-09-21 18:33 | External Medical Summary | Referral Summary ---
:1985 Author Organization [facility] Address [address] [place] [address] Care Team Providers Name Role Phone Jose Alegre Primary Care Physician Encounter [facility] [id number] Date(s): 04/14/17 - 04/14/17 [facility] [address] [place] [address] [phone] Discharge Disposition: 01-Home or Self Care Attending Physician: Didier Godoy MD Admitting Physician: Didier Godoy MD Vital Signs Most recent to oldest [Reference Range]: 1 Temperature Temporal Artery [36.3-37.8 degC] 36 degC *LOW* (04/14/17 5:10 PM) Peripheral Pulse Rate [60-100 bpm] 91 bpm (04/14/17 6:20 PM) Heart Rate Monitored [60-100 bpm] 84 bpm (04/14/17 5:00 PM) Respiratory Rate [14-20 br/min] 16 br/min (04/14/17 6:20 PM) Blood Pressure [90-140/60-90 mmHg] 114/79 mmHg (04/14/17 6:20 PM) Mean Arterial Pressure, Cuff 85 mmHg (04/14/17 5:00 PM) SpO2 94 % (04/14/17 5:10 PM) Problem List Condition Effective Dates Status Health Status Informant Acute pain(Confirmed) Active IIH (idiopathic intracranial Active patient hypertension)(Confirmed) Hypothyroid(Confirmed) Active patient Renal cell carcinoma(Confirmed) Active patient Bone metastasis(Confirmed) Active patient Metastasis to spinal column(Confirmed) Active patient Allergies, Adverse Reactions, Alerts Substance Reaction Severity Status penicillin Active Zofran Active Medications clindamycin 300 mg oral capsule 300 mg 1 caps, Oral, q6hr, 0 Refill(s) Start Date: 04/11/17 Status: OrderedDilaudid 2 mg, Oral, q8hr, as needed for pain, 0 Refill(s) Start Date: 04/11/17 Status: Orderedlevothyroxine 125 mcg, Oral, Daily, 0 Refill(s) Start Date: 02/13/17 Status: OrderedLORazepam 0.5 mg oral tablet 0.5 mg 1 tabs, Oral, TID, as needed for anxiety, 0 Refill(s) Start Date: 04/11/17 Status: OrderedNorco 7.5 mg-325 mg oral tablet 1 tabs, Oral, q6hr, 0 Refill(s) Start Date: 02/13/17 Status: OrderedProAir HFA 90 mcg/inh inhalation aerosol 2 puffs, Inhalation, QID, 0 Refill(s) Start Date: 04/11/17 Status: OrderedReglan 10 mg oral tablet 10 mg 1 tabs, Oral, QIDACHS, Nausea, 0 Refill(s) Start Date: 04/11/17 Status: OrderedZantac 150 150 mg, Oral, BID, 0 Refill(s) Start Date: 04/11/17 Status: Ordered Results Chemistry Most recent to oldest [Reference Range]: 1 Blood Glucose, Capillary [70-100 mg/dL] 93 mg/dL (04/14/17 1:46 PM) Procedures Procedure Date Related Diagnosis Body Site Revision Shunt Lumbar Peritoneal1 04/14/17 Revision Shunt Lumbar Peritoneal2 02/13/17 Shunt 01/27/17 Hysterectomy Laparoscopy3 Nephrectomy4 Port5 Tonsillectomy 1auto-populated from documented surgical [id number] from documented surgical [id number] - SP TUBAL LIGATION AND TO EVALUATE OVARIAN [id number] Social History Social History Type Response Smoking Status Current every day smoker; Type: Cigarettes; Tobacco use per day : Between 1/4 pack and 1/2 pack; Ready to change: Yes; Completed Smoking Cessation Education Yes; Smoking/Tobacco Cessation Teaching Completed Yes; Started at age: 14; entered on: 02/04/17
--- OUTSIDE RECORDS SUMMARY | 2017-09-21 18:33 | External Medical Summary | Referral Summary ---
:1985 Author Organization [facility] Address [address] [place] [address] Care Team Providers Name Role Phone Jose Alegre Primary Care Physician Encounter [facility] [id number] Date(s): 04/22/17 - 04/22/17 [facility] [address] [place] [address]- Discharge Disposition: 01-Home or Self Care Attending Physician: Didier Godoy MD Problem List Condition Effective Dates Status Health [...] 0 Refill(s) Start Date: 04/11/17 Status: Ordered Procedures Procedure Date Related Diagnosis Body Site Revision Shunt Lumbar Peritoneal1 04/14/17 Revision Shunt Lumbar Peritoneal2 02/13/17 Shunt 01/27/17 Hysterectomy Laparoscopy3 Nephrectomy4 Port5 Tonsillectomy 1auto-populated from documented surgical [id number] from documented surgical [id number] - SP TUBAL LIGATION AND TO EVALUATE OVARIAN [id number] Social History Social History Type Response Smoking Status Current every day smoker; Type: Cigarettes; Tobacco use per day : Between 1/4 pack and 1/2 pack; Ready to change: Yes; Completed Smoking Cessation Education Yes; Smoking/Tobacco Cessation Teaching Completed Yes; Started at age: 14; entered on: 02/04/17
--- OUTSIDE RECORDS SUMMARY | 2017-09-21 18:33 | External Medical Summary | Encounter Summary ---
:1985 Author Organization [facility] Address [address] [place] [address] Care Team Providers Name Role Phone Margot Valle Primary Care Provider Unavailable Mary Obregon MD Referring Md Encounter Details Date Type Department Care Team Description 07/11/2017 Orders Only [facility] Metastatic renal cell [facility] Anna Roberts MD carcinoma, unspecified [place] [address] laterality (HCC) [address] (Primary Dx) [place] [address] Social History Tobacco Use Types Packs/Day Years [...] Interface, Radiant Results - 07/31/2017 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
--- OUTSIDE RECORDS SUMMARY | 2017-09-21 18:33 | External Medical Summary | Encounter Summary ---
:1985 Author Organization [facility] Address [address] [place] [address] Care Team Providers Name Role Phone Mary Obregon MD Referring Md Jose Alegre MD Unavailable No Pcp, Na Primary Care Provider Unavailable Reason for Referral Consult, Test & Treat Status Reason Specialty Diagnoses / Referred By Referred To Procedures Contact Contact Closed Specialty Diagnoses Metastatic cancer to bone (HCC) [facility] Services Required Atif Roberts MD [facility] [address] [place] [address] Phone: Reason for Visit Reason Comments Other Encounter Details Date Type Department Care Team Description 07/31/2017 Office Visit [facility] Metastatic cancer to [facility] Anna Roberts MD bone (HCC) [place] [address] [place] [address] [phone] Social History Tobacco Use Types Packs/Day Years Used Date Former Smoker 15 Quit: 06/02/2009 Smokeless Tobacco: Never Used Alcohol Use Drinks/Week oz/Week Comments No Sex Assigned at Date Recorded Not on file as of this encounter Last Filed Vital Signs Vital Sign Reading Time Taken Blood Pressure 119/66 07/31/2017 3:09 PM WORKFORCE STAFFING ADVISOR Pulse 89 07/31/2017 3:09 PM WORKFORCE STAFFING ADVISOR Temperature 36.4 C (97.6 F) 07/31/2017 3:09 PM WORKFORCE STAFFING ADVISOR Respiratory Rate 18 07/31/2017 3:09 PM WORKFORCE STAFFING ADVISOR Oxygen Saturation 100% 07/31/2017 3:09 PM WORKFORCE STAFFING ADVISOR Inhaled Oxygen Concentration - - Weight - - Height 167.6 cm (5' 6") 07/31/2017 3:09 PM WORKFORCE STAFFING ADVISOR Body Mass Index - - in this encounter Functional Status Functional Status Response [...] impairment: No 07/06/2016 as of this encounter Progress Notes Atif Arnold MD - 07/31/2017 3:50 PM WORKFORCE STAFFING ADVISOR Patient Name: Diana Grossman Date of : 1985 DATE OF SERVICE: 07/31/2017 ATTENDING PHYSICIAN: ATIF ARNOLD MD. DATE OF SURGERY: 07/05/2016 PROCEDURE PERFORMED: Radical resection of left proximal radius with exposure and neuroplasty of posterior interosseous nerve and bicipital tendon tenodesis distally DIAGNOSIS: Pathological fracture, left proximal radius with metastatic renal cell carcinoma INTERVAL HISTORY: Diana Grossman presents in follow up in reference to the above referenced procedure, who is now about 1 year out from that procedure. The patient is progressing along quite nicely at this time, stating that she is performing activities as to her desires. The patient denies any significant functional deficits at this time other than describing some mild ( and expected) tg-wound numbness. She has been utilizing the extremity in a normal fashion and does feel that she is getting back to her pre-operative functional status. She has not palpated any additional or new nodules or masses since last visit. REVIEW OF SYSTEMS: No fevers, chills, weight loss or other constitutional disorders. No chest pain, shortness of breath, hemoptysis, bleeding diatheses, or other pulmonary or hematological problems. Noadenopathy, unexpected swelling , cardiac, neurologic, or GI problems. PHYSICAL EXAMINATION: Blood pressure 119/66, pulse 89, temperature 36.4 C (97.6 F), temperature source Oral, resp. rate 18, height 167.6 cm (66"), SpO2 100 %. General: Awake, alert, and oriented x3, in no acute distress, seated in a chair in exam room. Musculoskeletal: The wound is well healed. Normal contour and alignment. No masses or nodules are appreciated. No adenopathy or wound problems or complications. No focal areas of tenderness or unexpected swelling. Motor function is 5/5 in all associated groups, sensation is grossly intact.L forearm rom, full pronation, supination limited to neutral. RADIOGRAPHS: Radiographs are reviewed and results are discussed with the patient. Final radiology reading will be made available to patient. ASSESSMENT: The patient is 1 years s/p Radical resection of left proximal radius with exposure andneuroplasty of posterior interosseous nerve and bicipital tendon tenodesis distally. Overall she continues to do quite well with progression of function and no signs of local recurrence of disease. PLAN: 1. The patient is educated as to the natural history of the healing and remodeling process as well as the expectations regarding return to activities in an unlimited fashion. Continuation of exercises and self monitoring were discussed. 2. Patient may progress to all activities as to their desire without limitations or progress to that activity as directed. 3. Will continue to monitor by clinical exam and radiographs. I educated the patient as to the proper follow up and monitoring (staging studies) necessary for this diagnosis. in this encounter Plan of Treatment Scheduled Tests Name Priority Associated Diagnoses Order Schedule ELBOW 2 VIEWS LEFT Routine Metastatic cancer to bone Expected: 01/31/2018 ([facility]) (Approximate), Expires: 07/31/2018 Scheduled Referrals Name Priority Associated Diagnoses Order Schedule AMB REFERRAL TO Routine Metastatic cancer to bone Ordered: 07/31/2017 BUTTERMAKER CONTINUOUS CHURN-EXTERNAL ([facility]) as of this encounter Visit Diagnoses Diagnosis Metastatic cancer to bone ([facility]) Secondary malignant neoplasm of bone and bone marrow
--- OUTSIDE RECORDS SUMMARY | 2017-09-21 18:33 | External Medical Summary | Encounter Summary ---
:1985 Author Organization [facility] Address [address] [facility] [address] [place] [address] Care Team Providers Name Role Phone Margot Valle Primary Care Provider Unavailable Mary Obregon MD Referring Md Encounter Details Date Type Department Care Team Description 07/04/2017 Hospital Encounter [facility] Radiology [address] [place] [address] Social History Tobacco Use Types Packs/Day Years [...] mouth PO) every 4-6 hours as needed. oxyCODONE SR (OXYCONTIN) 20 Take 20 mg by mouth mg tablet every 12 hours as of this encounter Plan of Treatment Not on fileas of this encounter Results GENERAL RAD UPPER EXT EXTERNAL IMAGING (07/04/2017) Narrative This order has been auto finalized and does not contain a result. in this encounter Visit Diagnoses Diagnosis Diagnosis unknown Other unknown and unspecified cause of morbidity or mortality"
--- OUTSIDE RECORDS SUMMARY | 2017-09-21 18:34 | External Medical Summary ---
:1985 Author Organization [employer] Care Team Providers Name Role Phone Margot Valle Provider Role Unavailable Allergies No Known Allergies Problems No Known Problems Medications Medication Code System Code Instructions Start End Date Status Dosage Date Hydrocodone-Jalil [facility] 14535-221 7.5-325 MG Apr 01, Apr 10, 1 tablet taminophen 4-01 Orally every 8 2015 2015 as needed hours Results No Known Results Summary Purpose [employer] Submission
--- OUTSIDE RECORDS SUMMARY | 2017-09-21 18:34 | External Medical Summary ---
[...] System Code Date URINE CULTURE/COLONY COUNT.AMS CPT-4 09390 Mar 27, 2016 OFFICE VISIT EST PATIENT LEVEL 4 CPT-4 35441 Mar 27, 2016 URINALYSIS NONAUTO WO SCOPE CPT-4 79602 Mar 27, 2016 Vital Signs Date/Time: Mar [...] Flag Urinalysis (UA) - IH ----Leukocytes neg [id number] ----pH 6.0 43893854 ----Specific [place] 1.020 [id number] ----Ketones neg [id number] 0 - 0 ----Bilirubin neg 47009567 ----Nitrates neg 34178352 ----Color yellow 42079310 ----Protein neg [id number] 0 - 0 ----Character clear 20160327 ----Blood small 82021182 ----Urobilirubin 0.2 [id number] 0.2 - 1 ----Glucose neg [id number] 0 - 0 Summary Purpose [employer]ClinicalWorks Submission
--- OUTSIDE RECORDS SUMMARY | 2017-09-21 18:35 | External Medical Summary ---
[...] Start End Date Status Dosage Date Azithromycin [facility] 32[address]-580 250 MG Orally Mar 20, Mar 25, 2 tablets 6-09 Once a day 2015 2015 on the first day, then 1 tablet daily for 4 days Medrol (Vikas) [facility] 21482-168 4 MG Orally once Mar 20, Mar 26, as directed 6-04 a day 2015 2015 6 tabs x 1 day, 5 tabs x1 day, 4 tabs x 1 day, 3 tabs x 1 day, 2 tabs x 1 day, 1 tab x 1 Procedures Procedure Coding System Code Date OFFICE VISIT EST PATIENT LEVEL 4 CPT-4 11242 Mar 20, 2016 Vital Signs Date/Time: Mar 20, 2016 BMI 30.80 Index Weight 185 lb 2 oz lbs Height 5 ft 5 in in Blood Pressure Diastolic 68 mm Hg Blood Pressure Systolic 112 mm Hg Cardiac Monitoring Heart Rate 87 /min Temperature 98.1 F Oximetry 97 % Results No Known Results Summary Purpose [employer] Submission
--- OUTSIDE RECORDS SUMMARY | 2017-09-21 18:38 | External Medical Summary | Continuity of Care Document ---
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 03/29/2016 74597 Aller zy gy mood&quot ; Yes MORPHINE F0060 Drug Severe N/A 03/29/2016 94504 Aller gy Yes ONDANSETRON F0060 Drug Severe bad 03/29/2016 85708 Aller headaches gy Yes ONDANSETRON F0060 Drug Severe [place] 03/29/2016 87335 Aller gy Yes PENICILLINS F0010 Drug Mild RASH 04/03/2016 78648 Aller gy Yes Opioids - morph AdvRe Unknown "AMISHA 10/22/2016 Morphine ine ac ES ME Analogues FEEL LIKE I'M GOING TO " Yes Opioids - oxyco AdvRe I SLEEPLESS 10/22/2016 Morphine done ac NESS Analogues Yes Salicylates ibupr Aller M DUE TO 10/22/2016 ofen gy NEPHRECTO MY Yes Serotonin ondan AdvRe Unknown REALLY 10/22/2016 5HT-3 setro ac BAD Antagonists n HEADACHES Yes ondansetron Aller I Rash 11/19/2016 gy Yes Penicillins Aller I Rash 11/19/2016 gy Yes ondansetron ondan Drug Unknown UNKNOWN 12/02/2016 setro Aller n gy Yes Penicillins Penic Drug Unknown UNKNOWN 12/02/2016 illin Aller s gy Yes ibuprofen Aller M DUE TO 12/16/2016 gy NEPHRECTO MY Yes ondansetron AdvRe Unknown REALLY 12/16/2016 ac BAD HEADACHES Yes Penicillins Penic Aller Unknown N/A 12/16/2016 illin gy s Yes penicillin Drug Unknown N/A 12/19/2016 Aller gy Yes Zofran ODT Drug Unknown N/A 12/19/2016 Aller gy Yes penicillin NKMA N/A N/A 02/04/2017 Yes Zofran NKMA N/A N/A 02/04/2017 Yes ibuprofen Aller S DUE TO 09/09/2017 gy NEPHRECTO MY Yes morphine AdvRe Unknown "AMISHA 09/09/2017 ac ES ME FEEL LIKE I'M GOING TO " Yes ondansetron Aller I REALLY 09/09/2017 gy BAD HEADACHES Yes oxycodone AdvRe I SLEEPLESS 09/09/2017 ac NESS Yes Penicillins Aller I Rash 09/09/2017 gy Medications Medication Packaging Start Stop Route Dosage Sig Date Date [place] PO 1 each 7.5-325 Tablet 7 Q6H Q6H TAB 1 - 2 7 TAB Ativan PO 0.5 mg 7 DAILY DAILY MG 0.5 7 MG PO 2 mg Dilaudid 7 Q4-6H Opdivo IV 40 mg/4 ml 7 Q2WKS Q2WKS MG 40 7 MG Tablet 10 mg Compazine 10 mg 7 take 1 (one) tablet Tablet by Oral route daily PRN [place] Tablet 7.5-325 mg 7.5 mg-325 mg 7 take 1 (one) tablet Tablet by Oral route every 4 to 6 hours PRN Tablet 4 mg Dilaudid 4 mg 7 take 1 (one) tablet Tablet by Oral route daily Ativan Tablet 0.5 mg 0.5 mg tablet 7 take 1 (one) Tablet by Oral route daily PRN Box 04/22/20 25 mcg/hr fentaNYL 25 mcg/hr 7 17 1 (one) transdermal patch daily Reglan PO 10 mg 7 QID QID MG 10 7 MG 1 tabs 02/08/20 Oral 4 mg HYDROmorphone(HYDR 7 17 4 mg=1 tabs, Omorphone 4 mg Oral, q4hr, oral tablet) PRN: as needed for pain, 0 Refill(s) 1 tabs 02/08/20 Oral HYDROcodone-acetam 7 17 1 tabs, inophen(HYDROcodon Oral, q4hr, e-acetaminophen PRN: as 7.5 mg-325 mg oral needed for tablet range dose) pain, 0 Refill(s) 02/05/20 sucralfate(sucralf 7 17 0 Refill(s) ate 1 g oral tablet) 02/05/20 nystatin(nystatin 7 17 0 Refill(s) 100,000 units/mL oral suspension) 02/05/20 metroNIDAZOLE(metr 7 17 0 Refill(s) oNIDAZOLE 500 mg oral tablet) 1 tabs Oral 40 mg famotidine(famotid 7 40 mg=1 ine 40 mg oral tabs, Oral, tablet) BID, 0 Refill(s) 1 patches 02/05/20 Topical fentaNYL(fentaNYL 7 17 1 patches, 25 mcg/hr Topical, transdermal film, q72hr, 0 extended release) Refill(s) 1 tabs 02/08/20 Oral 10 mg prochlorperazine(p 7 17 10 mg=1 rochlorperazine 10 tabs, Oral, mg oral tablet) q6hr, PRN: Nausea or Vomiting, 0 Refill(s) 02/05/20 LORazepam(LORazepa 7 17 0 Refill(s) m 0.5 mg oral tablet) 02/05/20 acetaZOLAMIDE(acet 7 17 0 Refill(s) aZOLAMIDE 250 mg oral tablet) 1 tabs Oral 500 mg acetaminophen(acet 7 500 mg=1 aminophen 500 mg tabs, Oral, oral tablet) q6hr, PRN: as needed for pain, 0 Refill(s) 1,000 mL 02/07/20 IV Lactated Ringers 7 17 100 mL/hr, Injection(Lactated IV Ringers Injection 1,000 mL) 1 tabs 02/09/20 Oral 500 mg acetaminophen(acet 7 17 500 mg=1 aminophen) tabs, Oral, q6hr, PRN: Pain Mild (1-3) 2 mL 02/06/20 IV Push 10 mg metoclopramide(Reg 7 17 10 mg=2 mL, bjorn) IV Push, q6hr, PRN: Nausea or Vomiting methyl 1 eric 02/09/20 Topical salicylate 7 17 1 eric, topical(methyl Topical, salicylate topical TID, PRN: ointment) Other (See Comment) 02/09/20 Oral HYDROcodone-acetam 7 17 1-2 tabs, inophen([place] 5 Oral, q6hr, mg-325 mg oral PRN: Pain tablet range dose) Moderate (4-6) 1 mL 02/09/20 IV Push 15 mg ketorolac(Toradol) 7 17 15 mg=1 mL, IV Push, q6hr, PRN: Pain Moderate (4-6) 1 tabs 02/09/20 Oral 500 mg methocarbamol(Roba 7 17 500 mg=1 tremaine) tabs, Oral, QID 1 tabs 02/09/20 Oral 20 mg famotidine(Pepcid) 7 17 20 mg=1 tabs, Oral, BIDAC 1 tabs Oral 500 mg methocarbamol(Roba 7 500 mg=1 tremaine 500 mg oral tabs, Oral, tablet) QID, 0 Refill(s) 1 tabs Oral HYDROcodone-acetam 7 1 tabs, inophen([place] 7.5 Oral, q6hr, mg-325 mg oral 0 Refill(s) tablet) 02/14/20 Oral 2 mg HYDROmorphone(Dila 7 17 2 mg, Oral, udid) q4hr, 0 Refill(s) Oral 40 mg famotidine(Pepcid) 7 40 mg, Oral, BID, 0 Refill(s) IV 240 mg nivolumab(Opdivo) 7 240 mg, IV, q2wk, 0 Refill(s) Oral 100 mcg levothyroxine(levo 7 100 mcg, thyroxine) Oral, Daily, 0 Refill(s) 1,000 mL 02/14/20 IV Lactated Ringers 7 17 10 mL/hr, IV Injection(Lactated Ringers Injection 1,000 mL) 2 mL 02/14/20 IV Push 2 mg midazolam(Versed) 7 17 2 mg=2 mL, IV Push, Once 1 mL 02/14/20 IV Push 50 mcg fentaNYL(Sublimaze 7 17 50 mcg=1 mL, ) IV Push, Once 2 mL 02/14/20 IV Push 4 mg ondansetron(Zofran 7 17 4 mg=2 mL, ) IV Push, q4hr, PRN: Nausea 2 mL IV Push 4 mg ondansetron(Zofran 7 4 mg=2 mL, 2 mg/mL injectable IV Push, solution) q4hr, 0 Refill(s) 2 mL 02/14/20 IV Push 4 mg ondansetron(Zofran 7 17 4 mg=2 mL, ) IV Push, Once, PRN: Nausea or Vomiting 0.5 mL 02/14/20 IV Push 0.5 mg HYDROmorphone(Dila 7 17 0.5 mg=0.5 udid) mL, IV Push, q10min, PRN: Pain Magic PO 5 ml Mouthwash 7 Q4H (Lido/Maalox/Caraf ate) PO 5 ml Mycostatin 7 DAILY Xgeva SQ 120 mg/1.7 7 ml Q30D Zantac PO 150 mg 7 BID Q30D DOSE 1 7 DOSE 1 tabs Oral 10 mg metoclopramide(Reg 7 10 mg=1 bjorn 10 mg oral tabs, Oral, tablet) QIDACHS, PRN: Nausea, 0 Refill(s) 1 tabs Oral 0.5 mg LORazepam(LORazepa 7 0.5 mg=1 m 0.5 mg oral tabs, Oral, tablet) TID, PRN: as needed for anxiety, 0 Refill(s) 2 puffs Inhalation albuterol(ProAir 7 2 puffs, HFA 90 mcg/inh Inhalation, inhalation QID, 0 aerosol) Refill(s) Oral 2 mg HYDROmorphone(Dila 7 2 mg, Oral, udid) q8hr, PRN: as needed for pain, 0 Refill(s) 1 caps Oral 300 mg clindamycin(clinda 7 300 mg=1 mycin 300 mg oral caps, Oral, capsule) q6hr, 0 Refill(s) 1,000 mL 04/14/20 IV Lactated Ringers 7 17 10 mL/hr, IV Injection(Lactated Ringers Injection 1,000 mL) 2 mL 04/14/20 IV Push 2 mg midazolam(Versed) 7 17 2 mg=2 mL, IV Push, Once 1 mL 04/14/20 IV Push 50 mcg fentaNYL(Sublimaze 7 17 50 mcg=1 mL, ) IV Push, Once 1 mL 04/14/20 IV Push 10 mg dexamethasone(dexa 7 17 10 mg=1 mL, methasone) IV Push, Once 1 patches 04/14/20 TransDermal 1 mg scopolamine(scopol 7 17 1 mg=1 amine 1.5 mg patches, transdermal film, TransDermal, extended release) Once 2 mL 04/14/20 IV Push 20 mg famotidine(Pepcid) 7 17 20 mg=2 mL, IV Push, Once 0.5 mL 04/14/20 IV Push 0.5 mg HYDROmorphone(Dila 7 17 0.5 mg=0.5 udid) mL, IV Push, q5min, PRN: Pain 1 tabs 04/14/20 Oral HYDROcodone-acetam 7 17 1 tabs, inophen([place] 5 Oral, q4hr, mg-325 mg oral PRN: Pain tablet) Moderate (4-6) 2 mL 04/14/20 IV Push 4 mg ondansetron(Zofran 7 17 4 mg=2 mL, ) IV Push, q4hr PO 50 mcg Synthroid 7 DAILY DAILY MCG 125 7 MCG 1,000 mL 04/30/20 IV Lactated Ringers 7 17 10 mL/hr, Injection(Lactated IV, Stop: Ringers Injection 05/04/17 1,000 mL) 14:50:00 PETROPHYSICIST 2 mL 04/30/20 IV Push 2 mg midazolam(Versed) 7 17 2 mg=2 mL, IV Push, Once 2 mL 04/30/20 IV Push 20 mg famotidine(Pepcid) 7 17 20 mg=2 mL, IV Push, Once 3 tabs 04/30/20 Oral 975 mg acetaminophen(acet 7 17 975 mg=3 aminophen) tabs, Oral, Once 1 tabs 04/30/20 Oral HYDROcodone-acetam 7 17 1 tabs, inophen([place] 5 Oral, q4hr, mg-325 mg oral PRN: Pain tablet) Moderate (4-6) 2 mL 04/30/20 IV Push 4 mg ondansetron(Zofran 7 17 4 mg=2 mL, ) IV Push, q4hr PO 50 mcg Synthroid 7 DAILY PO 150 mcg Synthroid 8 QAM PO 150 mcg Synthroid 8 .COMPLEX Proair INH 8.5 gm Hfa 8 Q4H PO 100 mg Doxycycline 8 BID Monohydrate AEROSOL 2.5 mg/3 Proventil Neb 8 ml Q4HR (0.083%) [place] PO 1 tab 7.5/325 8 Q6H PO 150 mcg Levothyroxine 8 ACB Sodium PO 4 mg Hydromorphone HCl 8 Q4-6HR PO 50 mg Deltasone 50 mg 8 DAILY PO 500 mg Levaquin 8 DAILY Duoneb AEROSOL 3 ml 8 Q6H TD 14 mg Nicoderm 8 DAILY PO 20 mg Prednisone 8 DAILY Problems Date Dx Attending Type Code Diagnosis Diagnosed By Coded 03/24/2015 INDRA LINDER, W 300.02 Generalized Anxiety SHEAN Disorder 03/24/2015 INDRA LINDER, W 309.89 Other specified SHEAN adjustment reactions 04/05/2016 JANNIE LINDER, GAMALIEL F C64.1 MALIGNANT NEOPLASM G OF RIGHT KIDNEY, EXCEPT RENAL P 04/05/2016 GAMALIEL VALDERRAMA MD F F17.210 NICOTINE DEPENDENCE, G CIGARETTES, UNCOMPLICATED 04/05/2016 GAMALIEL VALDERRAMA MD F J45.909 UNSPECIFIED ASTHMA, G UNCOMPLICATED 04/05/2016 GAMALIEL VALDERRAMA MD F Z80.3 FAMILY HISTORY OF G MALIGNANT NEOPLASM OF BREAST 04/05/2016 GAMALIEL VALDERRAMA MD F Z82.49 FAMILY HX OF ISCHEM G HEART DIS AND OTH DIS OF THE C 04/05/2016 GAMALIEL VALDERRAMA MD F Z83.3 FAMILY HISTORY OF G DIABETES MELLITUS 04/05/2016 GAMALIEL VALDERRAMA MD F Z88.0 ALLERGY STATUS TO G PENICILLIN 04/05/2016 GAMALIEL VALDERRAMA MD Z90.710 ACQUIRED ABSENCE OF G BOTH CERVIX AND UTERUS 04/05/2016 GAMALIEL VALDERRAMA MD F Z98.51 TUBAL LIGATION G STATUS 04/15/2016 D C641 Malignant neoplasm of right kidney, except renal pelvis 04/15/2016 D 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 04/15/2016 D U16492 Nicotine dependence, cigarettes, uncomplicated 04/15/2016 D I89187 Cellulitis of abdominal wall 04/15/2016 D [id number] Infection following a procedure, initial encounter 04/15/2016 D Z8541 Personal history of malignant neoplasm of cervix uteri 04/15/2016 D Z881 Allergy status to other antibiotic agents status 04/15/2016 D Z885 Allergy status to narcotic agent status 04/15/2016 D Z905 Acquired absence of kidney 10/12/2016 KAYLYNN LINDER, C64.1 MALIGNANT NEOPLASM ELSHAMI M OF RIGHT KIDNEY, EXCEPT RENAL PELVIS 10/12/2016 KAYLYNN LINDER, 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 10/31/2016 W H47.10 Papilledema 11/01/2016 W H47.10 Papilledema 11/11/2016 MAYNOR TORRES L C64.1 Malignant neoplasm MAYNOR TORRES L [employer] of right kidney, [employer] except renal pelvis 11/14/2016 W H47.11 Papilledema associated with increased intracranial pressure 11/15/2016 W H47.11 Papilledema associated with increased intracranial pressure 11/15/2016 W H53.453 Bilateral peripheral visual field defect 11/15/2016 W H53.8 Other visual disturbances 11/15/2016 W R51 Headache 11/19/2016 MAYNOR TORRES L C64.1 Malignant neoplasm BRIAN, MAYNOR L [employer] of right kidney, [employer] except renal pelvis 11/19/2016 W H47.11 Papilledema associated with increased intracranial pressure 11/19/2016 W H53.453 Bilateral peripheral visual field defect 11/19/2016 W H53.8 Other visual disturbances 11/19/2016 W R51 Headache 11/28/2016 Court LINDER, A H47.11 PAPILLEDEMA Venancio M ASSOCIATED WITH INCREASED IN 12/02/2016 Win LINDER, F C64.9 MALIGNANT NEOPLASM Nicky N OF UNSP KIDNEY, EXCEPT RENAL PE 12/02/2016 Win LINDER, F 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 12/02/2016 Win LINDER, F E66.9 OBESITY, UNSPECIFIED Nicky N 12/02/2016 Win LINDER, F F17.200 NICOTINE DEPENDENCE, Nicky N UNSPECIFIED, UNCOMPLICATED 12/02/2016 Win LINDER, F G93.2 BENIGN INTRACRANIAL Nicky N HYPERTENSION 12/02/2016 Win LINDER, F N39.490 OVERFLOW Nicky N INCONTINENCE 12/02/2016 Win LINDER, A R32 UNSPECIFIED URINARY Nicky N INCONTINENCE 12/02/2016 Win LINDER, A R51 HEADACHE Nicky N 12/02/2016 Win LINDER, F Z68.34 BODY MASS INDEX Nicky N (BMI) 34.0-34.9, ADULT 12/02/2016 Win LINDER, F Z88.0 ALLERGY STATUS TO Nicky N PENICILLIN 12/26/2016 MAYNOR TORRES L C64.1 Malignant neoplasm MAYNOR TORRES L [employer] of right kidney, [employer] except renal pelvis 01/03/2017 MAY DO, ARLENE M K62.5 Hemorrhage of anus and rectum 01/03/2017 MAY DO, ARLENE M R10.30 Lower abdominal pain, unspecified 01/03/2017September DO, ARLENE M R19.7 Diarrhea, unspecified 01/06/2017 BRIAN, MAYNOR L C64.1 Malignant neoplasm BRIAN, MAYNOR Schulte [employer] of right kidney, [employer] except renal pelvis 01/06/2017 MARLENE LINDER, A04.7 Enterocolitis due to MARLENE LINDER, GERTRUDE Clostridium GERTRUDE difficile 01/06/2017 MARLENE LINDER, C64.1 Malignant neoplasm MARLENE LINDER, GERTRUDE of right kidney, GERTRUDE except renal pelvis 01/06/2017 MARLENE LINDER, C79.51 Secondary malignant MARLENE LINDER, GERTRUDE neoplasm of bone GERTRUDE 01/06/2017 MARLENE LINDER, E05.90 Thyrotoxicosis, MARLENE LINDER, GERTRUDE unspecified without GERTRUDE thyrotoxic crisis or storm 01/06/2017 MARLENE LINDER, F17.210 Nicotine dependence, MARLENE LINDER, GERTRUDE cigarettes, GERTRUDE uncomplicated 01/06/2017 MARLENE LINDER, F41.9 Anxiety disorder, MARLENE LINDER, GERTRUDE unspecified GERTRUDE 01/06/2017 MARLENE LINDER, G93.2 Benign intracranial MARLENE LINDER, GERTRUDE hypertension GERTRUDE 01/06/2017 MARLENE LINDER, H47.11 Papilledema MARLENE LINDER, GERTRUDE associated with GERRTUDE increased intracranial pressure 01/06/2017 MARLENE LINDER, J45.909 Unspecified asthma, MARLENE LINDER, GERTRDUE uncomplicated GERTRUDE 01/06/2017 MARLENE LINDER, K21.9 Gastro-esophageal MARLENE LINDER, GERTRUDE reflux disease GERTRUDE without esophagitis 01/06/2017 MARLENE LINDER, Z79.899 Other object oriented developer MARLENE LINDER, GERTRUDE (current) drug GERTRUDE therapy 01/06/2017 MARLENE LINDER, Z90.5 Acquired absence of MARLENE LINDER, GERTRUDE kidney GERTRUDE 01/14/2017 Moufarrij, Didier C64.9 Malignant neoplasm Moufarrij, A of unspecified Didier A kidney, except renal pelvis 01/14/2017 Moufarrij Didier E66.9 Obesity, unspecified Moufarrij, A Didier A 01/14/2017 Moufarrij Didier F17.210 Nicotine dependence, Moufarrij, A cigarettes, Didier A uncomplicated 01/14/2017 Moufarrij Didier G54.2 Cervical root Moufarrij, A disorders, not Didier A elsewhere classified 01/14/2017 Didier Godoy G91.2 (Idiopathic) normal Momarybeth, A pressure Didier A hydrocephalus 01/14/2017 Didier Godoy Z92.21 Personal history of Momarybeth, A antineoplastic Didier A chemotherapy 01/16/2017 MAYNOR TORRES C64.1 Malignant neoplasm BRIAN, MAYNOR L [employer] of right kidney, [employer] except renal pelvis 01/16/2017 ZULAY ORTA M25.571 Pain in right ankle ZULAY ORTA and joints of right foot 01/17/2017 BRIAN, MAYNOR L C64.1 Malignant neoplasm BRIAN, MAYNOR L [employer] of right kidney, [employer] except renal pelvis 01/22/2017 MAYNOR TORRES L C64.1 Malignant neoplasm BRIAN, MAYNOR L [employer] of right kidney, [employer] except renal pelvis 01/27/2017 Walt LINDER, A G93.2 BENIGN INTRACRANIAL Didier A HYPERTENSION 01/27/2017 Walt LINDER, Robby G93.2 BENIGN INTRACRANIAL Didier A HYPERTENSION 02/12/2017 Walt,, Final 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 02/12/2017 Walt,, Final D72.829 Elevated white blood Didier cell count, unspecified 02/12/2017 Walt,, Final F17.210 Nicotine dependence, Didier cigarettes, uncomplicated 02/12/2017 Walt,, Final G93.2 Benign intracranial Didier hypertension 02/12/2017 Walt,, Reason M25.512 Pain in left Didier shoulder 02/12/2017 Walt,, Final N17.9 Acute kidney Didier failure, unspecified 02/12/2017 Walt,, Final R51 Headache Didier 02/12/2017 Walt,, Final Z79.891 [facility] (current) Didier use of opiate analgesic 02/12/2017 Walt,, Final Z79.899 Other object oriented developer Didier (current) drug therapy 02/12/2017 Walt,, Final Z85.528 Personal history of Didier other malignant neoplasm of kidney 02/12/2017 Moanushkaarrij,, Final 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 02/14/2017 Moanushkaarrij, Didier G91.9 Hydrocephalus, Moufarrij, A unspecified Didier A 02/18/2017 MAYNOR TORRES C64.1 Malignant neoplasm MAYNOR TORRES [employer] of right kidney, [employer] except renal pelvis 02/25/2017 Moufarrij,, Final C64.1 Malignant neoplasm Didier of right kidney, except renal pelvis 02/25/2017 Moufarrij,, Final 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 02/25/2017 Moufarrij,, Final E03.9 Hypothyroidism, Didier unspecified 02/25/2017 Moufarrij,, Final G89.3 Neoplasm related Didier pain (acute) (chronic) 02/25/2017 Moanushkaarrij,, Final G93.2 Benign intracranial Didier hypertension 02/25/2017 Moanushkaarrij,, Final R51 Headache Didier 02/25/2017 Moufarrij,, Reason T85.898A Other specified Didier complication of other internal prosthetic devices, implants 02/25/2017 Varunij,, Final Y83.8 Other surgical Didier procedures as the cause of abnormal reaction of the patient, 02/25/2017 Varunij,, Final Z79.891 supervisor stripping (current) Didier use of opiate analgesic 02/25/2017 Oswaldoarrij,, Final Z79.899 Other object oriented developer Didier (current) drug therapy 03/03/2017 Moufarrij, Didier 278.00 OBESITY, UNSPECIFIED Moufarrij, A Didier A 03/03/2017 Moufarrij, Didier 348.2 BENIGN INTRACRANIAL Moufarrij, A HYPERTENSION Didier A 03/03/2017 Moufarrij, Didier 368.8 OTHER SPECIFIED Moufarrij, A VISUAL DISTURBANCES Didier A 03/03/2017 Moufarrij, Didier 723.1 CERVICALGIA Moufarrij, A Didier A 03/03/2017 Moufarrij, Didier 724.2 LUMBAGO Moufarrij, A Didier A 03/03/2017 Moufarrij, Didier 780.4 DIZZINESS AND Moufarrij, A GIDDINESS Didier A 03/03/2017 Moufarrij, Didier 782.0 DISTURBANCE OF SKIN Moufarrij, A SENSATION Didier A 03/03/2017 Moufarrij, Didier V10.90 Personal history of Moufarrij, A unspecified Didier A malignant neoplasm 03/03/2017 Moufarrij, Didier V67.00 FOLLOW UP Moufarrij, A EXAMINATION, Didier A FOLLOWING UNSPECIFIED SURGERY 03/03/2017 Moufarrij, Didier Z09 Encounter for Moufarrij, A follow-up Didier A examination after completed treatment for conditions other than malignant neoplasm 03/05/2017 MAYNOR TORRES L C64.1 Malignant neoplasm BRIAN, MAYNOR L [employer] of right kidney, [employer] except renal pelvis 03/05/2017 Moufarrij, Didier G91.9 Hydrocephalus, Trudy, Lino L A unspecified 03/06/2017 Moufarrij, Didier T85.898A Other specified Moufarrij, A complication of Didier A other internal prosthetic devices, implants and grafts, initial encounter 03/14/2017 MAYNOR TORRES L C64.1 Malignant neoplasm BRIAN, MAYNOR L [employer] of right kidney, [employer] except renal pelvis 03/19/2017 MAYNOR TORRES L C64.1 Malignant neoplasm BRIAN, MAYNOR L [employer] of right kidney, WAITER/[employer] except renal pelvis 03/19/2017 ZULAY ORTA C64.1 Malignant neoplasm ZULAY ORTA of right kidney, except renal pelvis 03/19/2017 ZULAY ORTA C79.51 Secondary malignant ZULAY ORTA neoplasm of bone 03/19/2017 ZULAY ORTA R91.1 Solitary pulmonary ZULAY ORTA nodule 03/19/2017 ZULAY ORTA Z97.8 Presence of other ZULAY ORTA specified devices 03/27/2017 MAYNOR TORRES L C64.1 Malignant neoplasm BRIAN, MAYNOR L [employer] of right kidney, [employer] except renal pelvis 03/27/2017 ZULAY ORTA C64.1 Malignant neoplasm ZULAY ORTA of right kidney, except renal pelvis 03/27/2017 ZULAY ORTA F17.210 Nicotine dependence, ZULAY ORTA cigarettes, uncomplicated 03/27/2017 ZULAY ORTA R94.2 Abnormal results of ZULAY ORTA pulmonary function studies 03/27/2017 ZULAY ORTA E03.8 Other specified ZULAY ORTA hypothyroidism 03/27/2017 ZULAY ORTA 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 04/03/2017 MAYNOR TORRES L C64.1 Malignant neoplasm BRIAN, MAYNOR L [employer] of right kidney, WA[employer] except renal pelvis 04/06/2017 COSTELLO DO, KATIE M43.6 Torticollis C 04/06/2017 COSTELLO DO, KATIE R11.0 Nausea C 04/06/2017 COSTELLO DO, KATIE R51 Headache C 04/10/2017 MAYNOR TORRES L C64.1 Malignant neoplasm BRIAN, MAYNOR L [employer] of right kidney, WAITER/[employer] except renal pelvis 04/10/2017 ZULAY ORTA C64.1 Malignant neoplasm ZULAY ORTA of right kidney, except renal pelvis 04/10/2017 ZULAY ORTA T85.698A Other mechanical ZULAY ORTA complication of other specified internal prosthetic devices, implants and grafts, initial encounter 04/10/2017 ZULAY ORTA Z98.2 Presence of ZULAY ORTA cerebrospinal fluid drainage device 04/16/2017 HAMMAD LINDER, ELOISE C64.1 Malignant neoplasm ELOISE CUEVA MD of right kidney, M except renal pelvis 04/16/2017 HAMMAD LINDER, ELOISE 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 ELOISE CUEVA MD M to medicaments and M other exogenous substances 04/16/2017 HAMMAD LINDER, ELOISE E66.9 Obesity, unspecified ELOISE CUEVA MD M 04/16/2017 HAMMAD LINDER, ELOISE H47.11 Papilledema ELOISE CUEVA MD M associated with M increased intracranial pressure 04/16/2017 HAMMAD LINDER, ELOISE Z68.36 Body mass index ELOISE CUEVA MD (BMI) 36.0-36.9, M adult 04/17/2017 MAYNOR TORRES C64.1 Malignant neoplasm BRIAN, MAYNOR L [employer] of right kidney, WAITER/[employer] except renal pelvis 04/17/2017 Moufarrij, Didier Z09 Encounter for Oswaldoarrij, A follow-up Didier A examination after completed treatment for conditions other than malignant neoplasm 04/21/2017 Walt,, Final 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 04/21/2017 Walt,, Final E03.9 Hypothyroidism, Didier unspecified 04/21/2017 Moufarrij,, Final F17.210 Nicotine dependence, Didier cigarettes, uncomplicated 04/21/2017 Moufarrij,, Final G93.2 Benign intracranial Didier hypertension 04/21/2017 Moufarrij,, Final J43.9 Emphysema, Didier unspecified 04/21/2017 Moufarrij,, Final J45.909 Unspecified asthma, Didier uncomplicated 04/21/2017 Moufarrij,, Final K21.9 Gastro-esophageal Didier reflux disease without esophagitis 04/21/2017 Walt,, Reason T85.09XA Other mechanical Didier complication of ventricular intracranial (communicating) s 04/21/2017 Oswaldoarrij,, Final Z79.891 [facility] (current) Didier use of opiate analgesic 04/21/2017 Moanushkaarrij,, Final Z79.899 Other [facility] Didier (current) drug therapy 04/21/2017 Oswaldoarrij,, Final Z85.528 Personal history of Didier other malignant neoplasm of kidney 04/25/2017 Walt,, Reason G93.2 Benign intracranial Didier hypertension 04/25/2017 Oswaldoarrtanisha,, Final Z98.2 Presence of Didire cerebrospinal fluid drainage device 04/30/2017 Walt, Didier T85.09XA Other mechanical Moufarrij, A complication of Didier A ventricular intracranial (communicating) shunt, initial encounter 05/05/2017 MAYNOR TORRES C64.1 Malignant neoplasm MAYNOR TORRES [employer] CLASS of right kidney, WAITER/[employer]ESS [employer] CLASS except renal pelvis 05/06/2017 Walt,, Final E03.9 Hypothyroidism, Didier unspecified 05/06/2017 Moufarrij,, Final E66.9 Obesity, unspecified Didier 05/06/2017 Moufarrij,, Final F17.210 Nicotine dependence, [place] cigarettes, uncomplicated 05/06/2017 Moufarrij,, Final G93.2 Benign intracranial [place] hypertension 05/06/2017 Moufarrij,, Final H53.8 Other visual [place] disturbances 05/06/2017 Moufarrij,, Final J43.9 Emphysema, [place] unspecified 05/06/2017 Moufarrij,, Final J45.909 Unspecified asthma, [place] uncomplicated 05/06/2017 Moufarrij,, Final K21.9 Gastro-esophageal [place] reflux disease without esophagitis 05/06/2017 Moufarrij,, Final M54.2 Cervicalgia [place] 05/06/2017 Moufarrij,, Final M54.5 Low back pain Ddiier 05/06/2017 Moufarrij,, Final R20.2 Paresthesia of skin [place] 05/06/2017 Moufarrij,, Final R42 Dizziness and [place] giddiness 05/06/2017 Moufarrij,, Final R51 Headache Didier 05/06/2017 Moufarrij,, Reason T85.635A Leakage of other On License Of [facility] nervous system device, implant or graft, initial encounter 05/06/2017 Moalainaij,, Final Y75.2 Prosthetic and other On License Of [facility] implants, materials and neurological devices associate 05/06/2017 Varunij,, Final Y83.1 Surgical operation On License Of [facility] with implant of artificial internal device as the cause 05/06/2017 Varunij,, Final Z68.32 Body mass index Didier (BMI) 32.0-32.9, adult 05/06/2017 Moanushkaarrij,, Final Z85.528 Personal history of Didier other malignant neoplasm of kidney 05/06/2017 Moufarrij,, Final Z85.830 Personal history of Didier malignant neoplasm of bone 05/06/2017 Moufarrij,, Final Z88.0 Allergy status to Didier penicillin 05/06/2017 Moufarrij,, Final Z88.8 Allergy status to Didier other drugs, medicaments and biological substances status 05/06/2017 Oswaldoarrij,, Final Z90.5 Acquired absence of Didier kidney 05/06/2017 Walt,, 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 05/08/2017 Alexymarybeth Didier T85.635A Leakage of other Moufarrij, A nervous system Didier A device, implant or graft, initial encounter 05/13/2017 Alexymarybeth Didier Z09 Encounter for Moalainaij, A follow-up Didier A examination after completed treatment for conditions other than malignant neoplasm 05/23/2017 MAYNOR TORRES C64.1 Malignant neoplasm MAYNOR TORRES [employer] of right kidney, [employer] except renal pelvis 06/05/2017 ZULAY ORTA C64.1 Malignant neoplasm ZULAY ORTA of right kidney, except renal pelvis 06/06/2017 W H53.453 Bilateral peripheral visual field defect 06/06/2017 W G93.2 Benign intracranial hypertension 06/06/2017 W H53.453 Bilateral peripheral visual field defect 06/06/2017 W G93.2 Benign intracranial hypertension 06/06/2017 W H53.453 Bilateral peripheral visual field defect 06/06/2017 W G93.2 Benign intracranial hypertension 06/06/2017 W H53.453 Bilateral peripheral visual field defect 06/06/2017 W G93.2 Benign intracranial hypertension 06/06/2017 W H47.11 Papilledema associated with increased intracranial pressure 06/06/2017 W H53.453 Bilateral peripheral visual field defect 06/06/2017 W G93.2 Benign intracranial hypertension 06/06/2017 W H47.11 Papilledema associated with increased intracranial pressure 06/06/2017 W H53.453 Bilateral peripheral visual field defect 06/11/2017 HAMMAD LINDER, ELOISE C64.1 Malignant neoplasm ELOIES CUEVA MD M of right kidney, M except renal pelvis 06/11/2017 HAMMAD LINDER, ELOISE 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 ELOISE CUEVA MD to medicaments and M other exogenous substances 06/11/2017 HAMMAD LNIDER, ELOISE E66.9 Obesity, unspecified HAMMAD LINDER, ELOISE Montoya M 06/11/2017 HAMMAD LINDER, ELOISE Z68.35 Body mass index ELOISE CUEVA MD (BMI) 35.0-35.9, M adult 06/13/2017 W G93.2 Benign intracranial hypertension 06/13/2017 W H47.11 Papilledema associated with increased intracranial pressure 06/13/2017 W H53.453 Bilateral peripheral visual field defect 06/13/2017 W G93.2 Benign intracranial hypertension 06/13/2017 W H47.11 Papilledema associated with increased intracranial pressure 06/13/2017 W H53.453 Bilateral peripheral visual field defect 06/20/2017 ZULAY ORTA D C64.1 Malignant neoplasm NANNEY, ZULAY D of right kidney, except renal pelvis 06/20/2017 NANHYACINTH, ZULAY D C64.1 Malignant neoplasm NANNEY, ZULAY D of right kidney, except renal pelvis 06/25/2017 NANHYACINTH, ZULAY D C64.1 Malignant neoplasm NANNEY, ZULAY D of right kidney, except renal pelvis 07/04/2017 NANHYACINTH, ZULAY D C64.1 Malignant neoplasm NANNEY, ZULAY D of right kidney, except renal pelvis 07/04/2017 BRIAN, MAYNOR L 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, 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/[employer] 07/04/2017 BRIAN, MAYNOR L M25.522 Pain in left elbow BRIAN, MAYNOR L WAITER/[employer] WAITER/[employer]RESS [employer]IRD [employer] 07/04/2017 BRIAN, MAYNOR L Z98.890 Other specified BRIAN, MAYNOR L [employer] 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 [employer]IRD [employer] states 07/18/2017 ZULAY ORTA D C64.1 Malignant neoplasm YOU, ZULAY D of right kidney, except renal pelvis 08/01/2017 YOU, ZULAY D C64.1 Malignant neoplasm YOU, ZULAY D of right kidney, except renal pelvis 08/19/2017 HAMMAD LINDER, ELOISE C64.1 Malignant neoplasm ELOISE CUEVA MD of right kidney, M except renal pelvis 08/19/2017 HAMMAD LINDER, ELOISE 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 ELOISE CUEVA MD to medicaments and M other exogenous substances 08/19/2017 ELOISE CUEVA MD E66.9 Obesity, unspecified ELOISE CUEVA MD M 08/19/2017 HAMMAD LINDER, ELOISE Z68.35 Body mass index ELOISE CUEVA MD (BMI) 35.0-35.9, M adult 09/09/2017 KATIE COSTELLO DO J44.1 Chronic obstructive C pulmonary disease with (acute) exacerbation 09/09/2017 KATIE COSTELLO DO Z87.891 Personal history of C nicotine dependence Procedures Code Description Performed By Performed On RESECTION OF 04/03/2016 [id number] RIGHT KIDNEY, OPEN APPROACH 58936 EYE EXAM WITH 10/31/2016 PHOTOS 08477 10/31/2016 OFFICE/OUTPATIENT VISIT, EST 64813 VISUAL FIELD 11/14/2016 EXAMINATION(S) [id number] EYE EXAM WITH 11/14/2016 PHOTOS 45717 11/14/2016 OFFICE/OUTPATIENT VISIT, NEW DRAINAGE OF Luis Mays MD 12/02/2016 [id number] SPINAL CANAL, PERCUTANEOUS M APPROACH, D 69576 Office or other Didier Godoy A 01/27/2017 outpatient visit for the evaluation and management of a new patient, which requires 05527 Creation of Didier Godoy A 02/12/2017 shunt, lumbar, subarachnoid-peritoneal, -pleural, or other; percutaneous, not requiring 70427 Replacement, 02/13/2017 irrigation or revision of lumbosubarachnoid shunt.. 55851 Creation of Lino Yates L 03/03/2017 shunt, lumbar, subarachnoid-peritoneal, -pleural, or other; percutaneous, not requiring 33517 Postoperative Didier Godoy A 03/03/2017 follow-up visit, normally included in the surgical package, to indicate that an evalua 43267 Replacement, Didier Godoy A 03/25/2017 irrigation or revision of lumbosubarachnoid shunt 65836 Replacement or 04/14/2017 revision of cerebrospinal fluid shunt, [place]ed [place] 394[address] Postoperative Didier Godoy A 04/17/2017 follow-up visit, normally included in the surgical package, to indicate that an evalua 47555 Replacement, Didier Godoy A 04/29/2017 irrigation or revision of lumbosubarachnoid shunt 59087 Removal of 04/30/2017 entire lumbosubarachnoid shunt system without replacement 89610 Postoperative Didier Godoy A 05/13/2017 follow-up visit, normally included in the surgical package, to indicate that an evalua 92583 Replacement, Didier Godoy A 05/19/2017 irrigation or revision of lumbosubarachnoid shunt 07859 Removal of Didier Godoy A 05/28/2017 entire lumbosubarachnoid shunt system without replacement 68699 VISUAL FIELD 06/06/2017 EXAMINATION(S) 23881 06/06/2017 OFFICE/OUTPATIENT VISIT, EST 53937 Ara of Didier Godoy 08/05/2017 shunt, lumbar, subarachnoid-peritoneal, -pleural, or other; percutaneous, not requiring <section xmlns="urn:hl7-org:v3" xmlns:xsi="http://www.[employer].Co3.org/ 2001/XMLSchema-instance"> <templateId root=" [id number]" /> <templateId root=" [id number]" /> <code codeSystemName=" LOINC" codeSystem="[id number]" code="25019-6&quot ; displayName="Results" /> <title>Results</title> &lt ;text> <table> <thead> <tr> <th& gt;Test</th> <th>Result</th> <th>Range </th> </tr> </thead> <tbody> &lt ;tr> <th colspan="10">CBC WITH PLATELET AND DIFFERENTIAL - 03/27/16 10:17</th> </tr> <tr> <td>SEGS</td> <td>68.6 %</td> <td>NRG</td> </tr> <tr> <td>*BASOPHILS</td> <td>0.9 %</td> <td>NRG</td> </tr> <tr> <td&gt ;*EOSINOPHILS</td> <td>2.8 %</td> & lt;td>NRG</td> </tr> <tr> <td> AUTOMATED DIFF</td> <td>PERFORMED </td> < td>NRG</td> </tr> <tr> <td>* LYMPHOCYTES</td> <td>21.0 %</td> &lt ;td>NRG</td> </tr> <tr> <td>* MONOCYTES</td> <td>6.7 %</td> <td >NRG</td> </tr> <tr> <td>* ABSOLUTE BASOPHILS</td> <td>0.10 10*3/uL</td> <td>0.00-0.20</td> </tr> <tr> <td>*ABSOLUTE EOSINOPHILS</td> <td>0.40 10*3/uL</ td> <td>0.00-0.50</td> </tr> <tr& gt; <td>*ABSOLUTE LYMPHOCYTES</td> <td>2.60 10*3/uL </td> <td>1.00-3.00</td> </tr> & lt;tr> <td>*ABSOLUTE MONOCYTES</td> <td> 0.80 10*3/uL</td> <td>0.30-1.00</td> </tr> <tr> <td>*ABSOLUTE NEUTROPHILS</td> & lt;td>8.50 10*3/uL</td> <td>1.80-7.80</td> </tr> <tr> <td>MPV</td> <td& gt;7.4 fL</td> <td>7.4-10.4</td> </tr> <tr> <td>PLATELETS</td> <td> 316 10*3/uL</td> <td>159-386</td> </tr> <tr> <td>WBC</td> <td>12.4 10* 3/uL</td> <td>3.6-11.2</td> </tr> <tr> <td>RBC</td> <td>5.21 </td& gt; <td>3.63-4.92</td> </tr> <tr&gt ; <td>HEMOGLOBIN</td> <td>14.2 </td> <td>11.0-14.3</td> </tr> <tr> <td>HEMATOCRIT</td> <td>41.8 %</td> <td>31.2-41.9</td> </tr> <tr> <td>MCV</td> <td>80.2 fL</td> <td& gt;79.0-98.0</td> </tr> <tr> <td> MCH</td> <td>27.2 pg</td> <td>27.0-33.0< /td> </tr> <tr> <td>MCHC</td> <td>33.9 </td> <td>32.0-36.0</td> </tr> <tr> <td>RDW</td> & lt;td>13.9 %</td> <td>12.3-17.0</td> </tr><tr> <td>RDWSD</td> <td> 39.4 </td> <td>37.1-47.8</td> </tr> <tr> <th colspan="10">COMPREHENSIVE METABOLIC PANEL - 03/27/16 10:17</th> </tr> <tr&gt ; <td>BILIFUBIN TOTAL</td> <td>0.70 </td> <td>0.20-1.00</td> </tr> <tr> <td>TOTAL PROTEIN</td> <td>7.0 </td> & lt;td>6.4-8.2</td> </tr> <tr> <td >ALBUMIN</td> <td>3.4 </td> <td>3.4 -5.0</td> </tr> <tr> <td>* GLOBULIN</td> <td>3.6 </td> <td>2.3- 3.5</td> </tr> <tr> <td>*A/G RATIO& lt;/td> <td>0.9 </td> <td>1.5-2.2</td& gt; </tr> <tr> <td>ALK PHOS</td> <td>93 U/L</td> <td>46-116</td> </tr> <tr> <td>ALT (SGPT)</td> & lt;td>20 U/L</td> <td>16-63</td> </tr&gt ; <tr> <td>AST (SGOT)</td> <td> 12 U/L</td> <td>15-37</td> </tr> <tr> <th colspan="10">GFR ESTIMATION - 03/27/16 10:17& lt;/th> </tr> <tr> <td>*GFR EST NON AFR CHILEAN</td> <td>>90 mL/min</td> <td>NRG</td> </tr> <tr> <td& gt;*GRFA EST AFR AMER</td> <td>>90 mL/min</td&gt ; <td>NRG</td> </tr> <tr> <th colspan="10">LIPASE - 03/27/16 10:17</th> & lt;/tr> <tr> <td>LIPASE</td> < td>75 U/L</td> <td>73-393</td> </tr> <tr> <th colspan="10">CBC WITH PLATELET AND DIFFERENTIAL - 03/27/16 10:17</th> </tr> <tr> <td>SEGS</td><td>68.6 %</td> & lt;td>NRG</td> </tr> <tr> <td> *BASOPHILS</td> <td>0.9 %</td> < td>NRG</td> </tr> <tr> <td>* EOSINOPHILS</td> <td>2.8 %</td> < td>NRG</td> </tr> <tr> <td> AUTOMATED DIFF</td> <td>PERFORMED </td> < td>NRG</td> </tr> <tr> <td>* LYMPHOCYTES</td> <td>21.0 %</td> &lt ;td>NRG</td></tr> <tr> <td>*MONOCYTES </td> <td>6.7 %</td> <td>NRG& lt;/td> </tr> <tr> <td>*ABSOLUTE BASOPHILS</td> <td>0.10 10*3/uL</td> <td& gt;0.00-0.20</td> </tr> <tr> <td> *ABSOLUTE EOSINOPHILS</td> <td>0.40 10*3/uL</td> <td>0.00-0.50</td> </tr> <tr> <td>*ABSOLUTE LYMPHOCYTES</td> <td>2.60 10*3/uL& lt;/td> <td>1.00-3.00</td> </tr> &lt ;tr> <td>*ABSOLUTE MONOCYTES</td> <td>0.80 10*3/ uL</td> <td>0.30-1.00</td> </tr> <tr> <td>*ABSOLUTE NEUTROPHILS</td> <td& gt;8.50 10*3/uL</td> <td>1.80-7.80</td> </tr> <tr> <td>MPV</td> <td>7.4 fL& lt;/td> <td>7.4-10.4</td> </tr> < tr> <td>PLATELETS</td> <td>316 10*3/uL&lt ;/td> <td>159-386</td> </tr> <tr> <td>WBC</td> <td>12.4 10*3/uL</td> <td>3.6-11.2</td> </tr> <tr> <td>RBC</td> <td>5.21 </td> <td >3.63-4.92</td></tr> <tr> <td> HEMOGLOBIN</td> <td>14.2 </td> <td> 11.0-14.3</td> </tr> <tr> <td> HEMATOCRIT</td> <td>41.8 %</td> < td>31.2-41.9</td> </tr> <tr> <td& gt;MCV</td> <td>80.2 fL</td> <td>79.0- 98.0</td> </tr> <tr><td>MCH</td> <td>27.2 pg</td> <td>27.0-33.0</td> </tr> <tr> <td>MCHC</td> & lt;td>33.9 </td> <td>32.0-36.0</td> </tr > <tr> <td>RDW</td> <td> 13.9 %</td> <td>12.3-17.0</td> </tr > <tr> <td>RDWSD</td> <td> 39.4 </td> <td>37.1-47.8</td> </tr> <tr> <th colspan="10">COMPREHENSIVE METABOLIC PANEL - 03/27/16 10:17</th> </tr> <tr&gt ; <td>BILIFUBIN TOTAL</td> <td>0.70 </td& gt; <td>0.20-1.00</td> </tr> <tr&gt ; <td>TOTAL PROTEIN</td> <td>7.0 </td&gt ; <td>6.4-8.2</td> </tr> <tr> <td>ALBUMIN</td> <td>3.4 </td> < td>3.4-5.0</td> </tr> <tr> <td&gt ;*GLOBULIN</td> <td>3.6 </td> <td>2.3- 3.5</td> </tr> <tr> <td>*A/G RATIO</td> <td>0.9 </td> <td>1.5-2.2& lt;/td> </tr> <tr> <td>ALKPHOS</ td> <td>93 U/L</td> <td>46-116</td&gt ; </tr> <tr> <td>ALT (SGPT)</td> <td>20 U/L</td> <td>16-63</td> </tr> <tr> <td>AST (SGOT)</td> <td>12 U/L</td> <td>15-37</td> </ tr> <tr> <th colspan="10">GFR ESTIMATION - 03/27/ 10:17</th> </tr> <tr> <td>*GFR EST NON AFR CHILEAN</td> <td>> 90 mL/min</td> <td>NRG</td> </tr> <tr> <td>*GRFA EST AFR AMER</td> <td&gt ;>90 mL/min</td> <td>NRG</td> </tr& gt; <tr> <th colspan="10">LIPASE - 10:17</th> </tr> <tr> <td>LIPASE& lt;/td> <td>75 U/L</td> <td>73-393</td > </tr> <tr> <th colspan="10" >URINALYSIS (CULTURE PRN) - 03/27/16 11:42</th> </tr> <tr> <td>*URINE APPEARANCE</td> <td& gt;SL CLOUDY </td> <td>CLEAR</td> </tr> <tr> <td>*URINE BILIRUBIN</td> <td& gt;NEGATIVE </td> <td>NEGATIVE</td> </tr&gt ; <tr> <td>*URINE BLOOD</td> <td> TRACE-INTACT </td> <td>NEGATIVE</td> </tr& gt; <tr> <td>*URINE GLUCOSE</td> < td>NEGATIVE </td> <td>NEGATIVE</td> </tr > <tr> <td>*URINE KETONES</td> < td>NEGATIVE </td> <td>NEGATIVE</td> </tr > <tr> <td>*URINE LEUKOCYTES</td> <td>NEGATIVE </td> <td>NEGATIVE</td> &lt ;/tr> <tr> <td>*URINE NITRITES</td> <td>NEGATIVE </td> <td>NEGATIVE</td> </tr> <tr> <td>URINE PH</td> &lt ;td>6.5 </td> <td>5.0-8.0</td> </tr> <tr> <td>*URINE PROTEIN</td> <td> NEGATIVE </td> <td>NEGATIVE</td> </tr> <tr> <td>URINE SPECIFIC GRAVITY</td> <td>1.010 </td> <td><=1.005->=1.030</td& gt; </tr> <tr> <td>*URINE UROBILINOGEN</td&gt ; <td>0.2 </td> <td>0.2-1.0</td> </tr> <tr> <td>*URINE COLOR</td> &lt ;td>STRAW </td> <td>STRAW/YELL/DK YELL</td> </tr> <tr> <th colspan="10">URINE MICROSCOPIC - 03/27/16 11:42</th> </tr> <tr> <td>WBC</td> <td>1-5 /[HPF]</td> <td>0-5</td> </tr> <tr> <td >RBC</td> <td>5-10 /[HPF]</td> <td> 0-1</td> </tr> <tr> <td> MICROSCOPIC EXAM PERFORMED</td> <td>PERFORMED </td> <td>NRG</td> </tr> <tr> < td>SQUAMOUS EP. CELLS</td> <td>MANY /[LPF]</td> <td>NEG-FEW</td> </tr> <tr> <td>BACTERIA</td> <td>MANY /[HPF]</td> <td>NEGATIVE</td> </tr> <tr> &lt ;th colspan="10">CULTURE URINE - 03/27/16 11:42</th> &lt ;/tr> <tr> <td>CULTURE URINE</td> <td>50,000 cfu/ml-100,000 cfu/ml~3 or more gram positive colony types~ Suggestive of colonization or contamination </td> <td>NRG& lt;/td> </tr> <tr> <th colspan="10 ">URINALYSIS (CULTURE PRN) - 03/27/16 11:42</th> </tr&gt ; <tr> <td>*URINE APPEARANCE</td> &lt ;td>SL CLOUDY </td> <td>CLEAR</td> </tr& gt; <tr> <td>*URINE BILIRUBIN</td> & lt;td>NEGATIVE </td> <td>NEGATIVE</td> < /tr> <tr> <td>*URINE BLOOD</td> & lt;td>TRACE-INTACT </td> <td>NEGATIVE</td> </tr> <tr> <td>*URINE GLUCOSE</td> <td>NEGATIVE </td> <td>NEGATIVE</td> </tr> <tr> <td>*URINE KETONES</td> <td>NEGATIVE </td> <td>NEGATIVE</td> </tr> <tr> <td>*URINE LEUKOCYTES</td& gt; <td>NEGATIVE </td> <td>NEGATIVE</td& gt; </tr> <tr> <td>*URINE NITRITES</ td> <td>NEGATIVE </td> <td>NEGATIVE</ td> </tr> <tr> <td>URINE PH</td& gt; <td>6.5 </td> <td>5.0-8.0</td> </tr> <tr> <td>*URINE PROTEIN</td> <td>NEGATIVE </td> <td>NEGATIVE</td> &lt ;/tr> <tr> <td>URINE SPECIFIC GRAVITY</td> <td>1.010 </td> <td><=1.005-> =1.030</td> </tr> <tr> <td>*URINE UROBILINOGEN</td> <td>0.2 </td> <td> 0.2-1.0</td> </tr> <tr> <td>*URINE COLOR</td> <td>STRAW </td> <td>STRAW/ YELL/DK YELL</td> </tr> <tr> <th colspan="10">URINE MICROSCOPIC - 03/27/16 11:42</th> & lt;/tr> <tr> <td>WBC</td> <td& gt;1-5 /[HPF]</td> <td>0-5</td> </tr> <tr> <td>RBC</td> <td>5-10 /[HPF ]</td> <td>0-1</td> </tr> <tr& gt; <td>MICROSCOPIC EXAM PERFORMED</td> <td> PERFORMED </td> <td>NRG</td> </tr> <tr> <td>SQUAMOUS EP. CELLS</td> <td& gt;MANY /[LPF]</td> <td>NEG-FEW</td> </tr& gt; <tr> <td>BACTERIA</td> <td> MANY /[HPF]</td> <td>NEGATIVE</td> </tr&gt ; <tr> <th colspan="10">CULTURE URINE - 11:42</th> </tr> <tr> <td> CULTURE URINE</td> <td>50,000 cfu/ml-100,000 cfu/ml~3 or more gram positive colony types~Suggestive of colonization or contamination < /td> <td>NRG</td> </tr> <tr> <th colspan="10">LACTIC ACID - 04/06/16 01:22</th> </tr> <tr> <td>LACTIC ACID</td> & lt;td>0.7 </td> <td>0.9-1.7</td> </tr&gt ; <tr> <th colspan="10">CBC WITH PLATELET AND DIFFERENTIAL - 04/06/16 01:22</th> </tr> <tr&gt ; <td>SEGS</td> <td>71.9 %</td&gt ; <td>NRG</td> </tr> <tr> <td& gt;*BASOPHILS</td> <td>0.6 %</td> & lt;td>NRG</td> </tr> <tr> <td> *EOSINOPHILS</td> <td>4.5 %</td> &lt ;td>NRG</td> </tr> <tr> <td> AUTOMATED DIFF</td> <td>PERFORMED </td> < td>NRG</td> </tr> <tr> <td>* LYMPHOCYTES</td> <td>17.4 %</td> &lt ;td>NRG</td> </tr> <tr> <td>* MONOCYTES</td> <td>5.6 %</td> <td& gt;NRG</td> </tr> <tr> <td>* ABSOLUTE BASOPHILS</td> <td>0.10 10*3/uL</td> <td>0.00-0.20</td> </tr> <tr> <td>*ABSOLUTE EOSINOPHILS</td> <td>0.80 10*3/uL</ td> <td>0.00-0.50</td> </tr> <tr& gt; <td>*ABSOLUTE LYMPHOCYTES</td> <td>3.10 10*3/uL</td> <td>1.00-3.00</td> </tr> <tr> <td>*ABSOLUTE MONOCYTES</td> < td>1.00 10*3/uL</td> <td>0.30-1.00</td> &lt ;/tr> <tr> <td>*ABSOLUTE NEUTROPHILS</td> <td>12.80 10*3/uL</td> <td>1.80-7.80</td&gt ; </tr> <tr> <td>MPV</td> <td>7.5 fL</td> <td>7.4-10.4</td> &lt ;/tr> <tr> <td>PLATELETS</td> < td>342 10*3/uL</td> <td>159-386</td> </ tr> <tr> <td>WBC</td> <td> 17.8 10*3/uL</td> <td>3.6-11.2</td> </tr> <tr> <td>RBC</td> <td>4.86 </ td> <td>3.63-4.92</td> </tr> <tr&gt ; <td>HEMOGLOBIN</td> <td>13.2 </td> <td>11.0-14.3</td> </tr> <tr> &lt ;td>HEMATOCRIT</td> <td>38.5 %</td> <td>31.2-41.9</td> </tr> <tr> <td >MCV</td> <td>79.2 fL</td> <td>79.0 -98.0</td> </tr> <tr> <td>MCH< /td> <td>27.1 pg</td> <td>27.0-33.0</ td> </tr> <tr> <td>MCHC</td> <td>34.2 </td> <td>32.0-36.0</td> & lt;/tr> <tr> <td>RDW</td> <td& gt;14.0 %</td> <td>12.3-17.0</td> < /tr> <tr> <td>RDWSD</td> <td&gt ;39.8 </td> <td>37.1-47.8</td> </tr> <tr> <th colspan="10">PROTHROMBIN TIME - 01:22</th> </tr> <tr> <td>*INR< /td> <td>1.0 </td> <td>0.9-1.1</td&gt ; </tr> <tr> <td>*PROTHROMBIN TIME</ td> <td>10.3 s</td> <td>9.4-11.5</td& gt; </tr> <tr> <th colspan="10"& gt;PARTIAL THROMBOPLASTIN TIME - 04/06/16 01:22</th> </tr> <tr> <td>PARTIAL THROMBOPLASTIN TIME</td><td> 32.4 s</td> <td>23.0-31.0</td> </tr> <tr> <th colspan="10">LACTIC ACID - 01:22</th> </tr> <tr> <td> LACTIC ACID</td> <td>0.7 </td> <td>0.9- 1.7</td> </tr> <tr> <th colspan=& quot;10">CBC WITH PLATELET AND DIFFERENTIAL - 04/06/16 01:22</th> </tr> <tr> <td>SEGS</td> < td>71.9 %</td> <td>NRG</td> </tr> <tr> <td>*BASOPHILS</td> <td>0.6 & amp;#37;</td> <td>NRG</td> </tr> & lt;tr> <td>*EOSINOPHILS</td> <td>4.5 &amp ;#37;</td> <td>NRG</td> </tr> &lt ;tr> <td>AUTOMATED DIFF</td> <td> PERFORMED </td> <td>NRG</td> </tr> <tr> <td>*LYMPHOCYTES</td> <td> 17.4 %</td> <td>NRG</td> </tr> <tr> <td>*MONOCYTES</td> <td> 5.6 %</td> <td>NRG</td> </tr> <tr> <td>*ABSOLUTE BASOPHILS</td> < td>0.10 10*3/uL</td> <td>0.00-0.20</td> &lt ;/tr> <tr> <td>*ABSOLUTE EOSINOPHILS</td> <td>0.80 10*3/uL</td> <td>0.00-0.50</td& gt; </tr> <tr> <td>*ABSOLUTE LYMPHOCYTES</td> <td>3.10 10*3/uL</td> < td>1.00-3.00</td> </tr> <tr> <td& gt;*ABSOLUTE MONOCYTES</td> <td>1.00 10*3/uL</td> <td>0.30-1.00</td> </tr> <tr> <td>*ABSOLUTE NEUTROPHILS</td> <td>12.80 10*3/uL&lt ;/td> <td>1.80-7.80</td> </tr> < tr> <td>MPV</td> <td>7.5 fL</td> <td>7.4-10.4</td> </tr> <tr> <td>PLATELETS</td> <td>342 10*3/uL</td> <td>159-386</td> </tr> <tr> <td>WBC</td> <td>17.8 10*3/uL</td> &lt ;td>3.6-11.2</td> </tr> <tr> <td& gt;RBC</td> <td>4.86 </td> <td>3.63- 4.92</td> </tr> <tr> <td> HEMOGLOBIN</td> <td>13.2 </td> <td> 11.0-14.3</td> </tr> <tr> <td> HEMATOCRIT</td> <td>38.5 %</td> < td>31.2-41.9</td> </tr> <tr> <td& gt;MCV</td> <td>79.2 fL</td> <td>79.0- 98.0</td> </tr> <tr> <td>MCH</ td> <td>27.1 pg</td> <td>27.0-33.0</td > </tr> <tr> <td>MCHC</td> <td>34.2 </td> <td>32.0-36.0</td> < /tr> <tr> <td>RDW</td> <td> 14.0%</td> <td>12.3-17.0</td> </tr& gt; <tr> <td>RDWSD</td> <td>39.8 & lt;/td> <td>37.1-47.8</td> </tr> &lt ;tr> <th colspan="10">PROTHROMBIN TIME - 04/06/16 01 :22</th> </tr> <tr> <td>*INR</ td> <td>1.0 </td> <td>0.9-1.1</td> </tr><tr> <td>*PROTHROMBIN TIME</td> <td>10.3 s</td> <td>9.4-11.5</td> < /tr> <tr> <th colspan="10">PARTIAL THROMBOPLASTIN TIME - 04/06/16 01:22</th> </tr> <tr > <td>PARTIAL THROMBOPLASTIN TIME</td> <td& gt;32.4 s</td> <td>23.0-31.0</td> </tr> <tr> <th colspan="10">URINALYSIS (CULTURE PRN) - 04/06/16 23:05</th> </tr> <tr> & lt;td>*URINE APPEARANCE</td> <td>CLEAR </td> <td>CLEAR</td> </tr> <tr> & lt;td>*URINE BILIRUBIN</td> <td>NEGATIVE </td> <td>NEGATIVE</td> </tr> <tr> <td>*URINE BLOOD</td> <td>TRACE-INTACT </td&gt ; <td>NEGATIVE</td> </tr> <tr> <td>*URINE GLUCOSE</td> <td>NEGATIVE </td& gt; <td>NEGATIVE</td> </tr> <tr> <td>*URINE KETONES</td> <td>NEGATIVE </ td> <td>NEGATIVE</td> </tr> <tr& gt; <td>*URINE LEUKOCYTES</td> <td>NEGATIVE </td> <td>NEGATIVE</td> </tr> &lt ;tr> <td>*URINE NITRITES</td> <td> NEGATIVE </td> <td>NEGATIVE</td> </tr> <tr> <td>URINE PH</td> <td>6.0 </td> <td>5.0-8.0</td> </tr> <tr > <td>*URINE PROTEIN</td> <td>NEGATIVE & lt;/td> <td>NEGATIVE</td> </tr> <tr&gt ; <td>URINE SPECIFIC GRAVITY</td> <td>& lt;1.005 </td> <td><=1.005->=1.030</td&gt ; </tr> <tr> <td>*URINE UROBILINOGEN&lt ;/td> <td>0.2 </td> <td>0.2-1.0</td&gt ; </tr> <tr> <td>*URINE COLOR</td&gt ; <td>YELLOW </td> <td>STRAW/YELL/DK YELL&lt ;/td> </tr> <tr> <th colspan="10& quot;>URINE MICROSCOPIC - 04/06/16 23:05</th> </tr> <tr> <td>WBC</td> <td>0-1 /[HPF]< /td> <td>0-5</td> </tr> <tr> <td>RBC</td> <td>1-5 /[HPF]</td> <td >0-1</td> </tr> <tr> <td> MICROSCOPIC EXAM PERFORMED</td> <td>PERFORMED </td> <td>NRG</td></tr> <tr> <td& gt;SQUAMOUS EP. CELLS</td> <td>MODERATE /[LPF]</td> <td>NEG-FEW</td> </tr> <tr> <th colspan="10">URINALYSIS (CULTURE PRN) - 04/06/16 23:05< /th> </tr> <tr> <td>*URINE APPEARANCE</td> <td>CLEAR </td> <td> CLEAR</td> </tr> <tr> <td>*URINE BILIRUBIN</td> <td>NEGATIVE </td> <td> NEGATIVE</td> </tr> <tr> <td>* URINE BLOOD</td> <td>TRACE-INTACT </td> < td>NEGATIVE</td> </tr> <tr> <td& gt;*URINE GLUCOSE</td> <td>NEGATIVE </td> <td> NEGATIVE</td> </tr> <tr> <td>* URINE KETONES</td> <td>NEGATIVE </td> <td >NEGATIVE</td> </tr> <tr> <td> *URINE LEUKOCYTES</td> <td>NEGATIVE </td> & lt;td>NEGATIVE</td> </tr> <tr> < td>*URINE NITRITES</td> <td>NEGATIVE </td> <td>NEGATIVE</td> </tr> <tr> & lt;td>URINE PH</td> <td>6.0 </td> <td& gt;5.0-8.0</td> </tr> <tr> <td>* URINE PROTEIN</td> <td>NEGATIVE </td> <td >NEGATIVE</td> </tr> <tr> <td> URINE SPECIFIC GRAVITY</td> <td><1.005 </td> <td><=1.005->=1.030</td> </tr> <tr> <td>*URINE UROBILINOGEN</td> < td>0.2 </td> <td>0.2-1.0</td> </tr> <tr> <td>*URINE COLOR</td> <td> YELLOW </td> <td>STRAW/YELL/DK YELL</td> </ tr> <tr> <th colspan="10">URINE MICROSCOPIC - 04/06/16 23:05</th> </tr> <tr> <td>WBC</td> <td>0-1 /[HPF]</td> & lt;td>0-5</td> </tr> <tr> <td> RBC</td> <td>1-5 /[HPF]</td> <td>0-1& lt;/td> </tr> <tr> <td>MICROSCOPIC EXAM PERFORMED</td> <td>PERFORMED </td> < td>NRG</td> </tr> <tr> <td> SQUAMOUS EP. CELLS</td> <td>MODERATE /[LPF]</td> <td>NEG-FEW</td> </tr> <tr> <th colspan="10">CULTURE BLOOD - 04/06/16 23:29</th> </tr> <tr> <td>CULTURE BLOOD</td> <td>No growth after 5 days of incubation. </td> & lt;td>NRG</td> </tr> <tr> <th colspan="10">CULTURE BLOOD - 04/06/16 23:29</th> </ tr> <tr> <td>CULTURE BLOOD</td> & lt;td>No growth after 5 days of incubation. </td> <td> NRG</td> </tr> <tr> <th colspan=& quot;10">COMPREHENSIVE METABOLIC PANEL - 04/07/16 01:22</th> </tr> <tr> <td>BILIFUBIN TOTAL</td> <td>0.80 </td> <td>0.20-1.00</td> </tr> <tr> <td>TOTAL PROTEIN</td> <td>7.6 </td> <td>6.4-8.2</td> </ tr> <tr> <td>ALBUMIN</td> <td& gt;3.4 </td> <td>3.4-5.0</td> </tr> <tr> <td>*GLOBULIN</td> <td>4.2 &lt ;/td> <td>2.3-3.5</td> </tr> <tr> <td>*A/G RATIO</td> <td>0.8 </td> <td>1.5-2.2</td> </tr> <tr> <td >ALK PHOS</td> <td>99 U/L</td><td>46-116< /td> </tr> <tr> <td>ALT (SGPT)</ td> <td>33 U/L</td> <td>16-63</td> </tr> <tr> <td>AST (SGOT)</td> <td>17 U/L</td><td>15-37</td> </tr> <tr> <th colspan="10">GFR ESTIMATION - 04/07 01:22</th> </tr> <tr> <td>* GFR EST NON AFR [facility]</td> <td>62 mL/min</td> <td>NRG</td> </tr> <tr> &lt ;td>*GRFA EST AFR AMER</td> <td>72 mL/min</td> <td>NRG</td> </tr> <tr> < th colspan="10">LIPASE - 04/07/16 01:22</th> </tr& gt; <tr> <td>LIPASE</td> <td> 61 U/L</td> <td>73-393</td> </tr> <tr > <th colspan="10">CULTURE BLOOD - 04/07/16 01:22&lt ;/th> </tr> <tr> <td>CULTURE BLOOD& lt;/td> <td>No growth after 5 days of incubation. </td> <td>NRG</td> </tr> <tr> & lt;th colspan="10">COMPREHENSIVE METABOLIC PANEL - 04/07/16 01:22& lt;/th> </tr> <tr> <td>BILIFUBIN TOTAL</td> <td>0.80 </td> <td>0.20- 1.00</td> </tr> <tr> <td>TOTAL PROTEIN</td> <td>7.6 </td> <td>6.4-8.2 </td> </tr> <tr> <td>ALBUMIN</td& gt; <td>3.4 </td> <td>3.4-5.0</td> </tr> <tr> <td>*GLOBULIN</td> <td>4.2 </td> <td>2.3-3.5</td> < /tr> <tr> <td>*A/G RATIO</td> < td>0.8 </td> <td>1.5-2.2</td> </tr> <tr> <td>ALK PHOS</td> <td>99 U/L& lt;/td> <td>46-116</td> </tr> <tr > <td>ALT (SGPT)</td> <td>33 U/L</td& gt; <td>16-63</td> </tr> <tr> <td>AST (SGOT)</td> <td>17 U/L</td> <td>15-37</td> </tr> <tr> < th colspan="10">GFR ESTIMATION - 04/07/16 01:22</th> & lt;/tr> <tr> <td>*GFR EST NON AFR CHILEAN</td > <td>62 mL/min</td> <td>NRG</td> </tr> <tr> <td>*GRFA EST AFR AMER</td> <td>72 mL/min</td> <td>NRG</td> </tr> <tr> <th colspan="10">LIPASE- 04/07/16 01:22</th> </tr> <tr> <td& gt;LIPASE</td> <td>61 U/L</td> <td>73- 393</td> </tr><tr> <th colspan="10& quot;>CULTURE BLOOD - 04/07/16 01:22</th> </tr> <tr&gt ; <td>CULTURE BLOOD</td> <td>No growth after 5 days of incubation. </td> <td>NRG</td> </tr> <tr> <th colspan="10">CBC WITH PLATELET AND DIFFERENTIAL - 04/07/1606:03</th> </tr> & lt;tr> <td>SEGS</td> <td>69.0 %& lt;/td> <td>NRG</td> </tr> <tr&gt ; <td>*BASOPHILS</td> <td>0.6 %</ td> <td>NRG</td> </tr> <tr> <td>*EOSINOPHILS</td> <td>5.7 %</td > <td>NRG</td> </tr> <tr> <td>AUTOMATED DIFF</td> <td>PERFORMED </td> <td>NRG</td> </tr> <tr> < td>*LYMPHOCYTES</td> <td>17.1 %</td> <td>NRG</td> </tr> <tr> < td>*MONOCYTES</td> <td>7.6 %</td> <td>NRG</td> </tr> <tr> <td& gt;*ABSOLUTE BASOPHILS</td> <td>0.10 10*3/uL</td> <td>0.00-0.20</td> </tr> <tr> <td>*ABSOLUTE EOSINOPHILS</td> <td>0.80 10*3/uL& lt;/td> <td>0.00-0.50</td> </tr> &lt ;tr> <td>*ABSOLUTE LYMPHOCYTES</td> <td> 2.50 10*3/uL</td> <td>1.00-3.00</td> </tr& gt; <tr> <td>*ABSOLUTE MONOCYTES</td> <td>1.10 10*3/uL</td> <td>0.30-1.00</td> </tr> <tr> <td>*ABSOLUTE NEUTROPHILS</ td> <td>10.00 10*3/uL</td> <td>1.80-7.80& lt;/td></tr> <tr> <td>MPV</td> <td>7.3 fL</td> <td>7.4-10.4</td> &lt ;/tr> <tr> <td>PLATELETS</td> < td>307 10*3/uL</td> <td>159-386</td> </tr> <tr> <td>WBC</td> <td>14.4 10*3 /uL</td> <td>3.6-11.2</td> </tr> <tr> <td>RBC</td> <td>4.43 </td&gt ; <td>3.63-4.92</td> </tr> <tr> <td>HEMOGLOBIN</td> <td>11.9 </td> <td>11.0-14.3</td> </tr> <tr> <td>HEMATOCRIT</td> <td>35.3 %</td&gt ; <td>31.2-41.9</td> </tr> <tr> <td>MCV</td> <td>79.7 fL</td> <td>79.0-98.0</td> </tr> <tr> & lt;td>MCH</td> <td>26.9 pg</td> <td&gt ;27.0-33.0</td> </tr> <tr> <td> MCHC</td> <td>33.7 </td> <td>32.0-36.0 </td> </tr> <tr> <td>RDW</td& gt; <td>13.8 %</td> <td>12.3-17.0&lt ;/td> </tr> <tr> <td>RDWSD</td&gt ; <td>39.4 </td> <td>37.1-47.8</td> </tr> <tr> <th colspan="10"> COMPREHENSIVE METABOLIC PANEL - 04/07/16 06:03</th> </tr> <tr> <td>SODIUM</td> <td>140 mmol /L</td> <td>136-145</td> </tr> < tr> <td>POTASSIUM</td> <td>3.7 mmol/L< /td> <td>3.5-5.1</td> </tr> <tr& gt; <td>CHLORIDE</td> <td>104 mmol/L</td& gt; <td>98-107</td> </tr> <tr> <td>TCO2</td> <td>28.6 mmol/L</td> <td>21.0-32.0</td> </tr> <tr> &lt ;td>*ANION GAP</td> <td>7.4 mmol/L</td> & lt;td>8.0-16.0</td> </tr> <tr> < td>BUN</td> <td>11 </td> <td>7-18& lt;/td> </tr> <tr> <td>CREATININE&lt ;/td> <td>1.29 </td> <td>0.55-1.02</td > </tr> <tr> <td>*BUN/CREATININE RATIO</td> <td>8.5 </td> <td>9.1-17.0& lt;/td> </tr> <tr> <td>GLUCOSE</ td> <td>96</td> <td>65-99</td> </tr> <tr> <td>CALCIUM</td> <td>8.5 </td> <td>8.5-10.1</td> </tr> <tr> <td>BILIFUBIN TOTAL</td> <td >0.80 </td> <td>0.20-1.00</td> </tr> <tr> <td>TOTAL PROTEIN</td> <td& gt;6.5 </td> <td>6.4-8.2</td> </tr> <tr> <td>ALBUMIN</td> <td>2.9 < /td> <td>3.4-5.0</td> </tr> <tr& gt; <td>*GLOBULIN</td> <td>3.6 </td> <td>2.3-3.5</td> </tr> <tr> <td>*A/G RATIO</td> <td>0.8</td> & lt;td>1.5-2.2</td> </tr> <tr> <td >ALK PHOS</td> <td>88 U/L</td> <td> 46-116</td> </tr> <tr> <td>ALT (SGPT )</td> <td>26 U/L</td> <td>16-63</ td> </tr> <tr> <td>AST (SGOT)</td > <td>13 U/L</td> <td>15-37</td> </tr> <tr> <th colspan="10">CBC WITH PLATELET AND DIFFERENTIAL - 04/07/16 06:03</th> </tr> <tr> <td>SEGS</td> <td>69.0 &amp ;#37;</td> <td>NRG</td> </tr> &lt ;tr> <td>*BASOPHILS</td> <td>0.6 &#37 ;</td> <td>NRG</td> </tr> <tr& gt; <td>*EOSINOPHILS</td> <td>5.7 %& lt;/td> <td>NRG</td> </tr> <tr> <td>AUTOMATED DIFF</td> <td>PERFORMED </ td> <td>NRG</td> </tr> <tr> <td>*LYMPHOCYTES</td> <td>17.1 %</ td> <td>NRG</td> </tr> <tr> <td>*MONOCYTES</td> <td>7.6 %</td& gt; <td>NRG</td> </tr> <tr> <td>*ABSOLUTE BASOPHILS</td> <td>0.10 10*3/uL&lt ;/td> <td>0.00-0.20</td> </tr> <tr> <td>*ABSOLUTE EOSINOPHILS</td> <td>0.80 10*3 /uL</td> <td>0.00-0.50</td> </tr> <tr> <td>*ABSOLUTE LYMPHOCYTES</td> <td>2.50 10*3/uL</td> <td>1.00-3.00</td> </tr>&lt ;tr> <td>*ABSOLUTE MONOCYTES</td> <td> 1.10 10*3/uL</td> <td>0.30-1.00</td> </tr& gt; <tr> <td>*ABSOLUTE NEUTROPHILS</td> <td>10.00 10*3/uL</td> <td>1.80-7.80</td> </tr> <tr> <td>MPV</td> <td>7.3 fL</td> <td>7.4-10.4</td> </ tr> <tr> <td>PLATELETS</td> <td> 307 10*3/uL</td> <td>159-386</td> </tr> <tr> <td>WBC</td> <td>14.4 10* 3/uL</td> <td>3.6-11.2</td> </tr> <tr> <td>RBC</td> <td>4.43 </td& gt; <td>3.63-4.92</td> </tr> <tr&gt ; <td>HEMOGLOBIN</td> <td>11.9 </td> <td>11.0-14.3</td> </tr> <tr> <td>HEMATOCRIT</td> <td>35.3 %</td& gt; <td>31.2-41.9</td> </tr> <tr&gt ; <td>MCV</td> <td>79.7 fL</td> & lt;td>79.0-98.0</td> </tr> <tr> < td>MCH</td> <td>26.9 pg</td> <td> 27.0-33.0</td> </tr> <tr> <td> MCHC</td> <td>33.7 </td> <td>32.0-36.0</td& gt; </tr> <tr> <td>RDW</td> <td>13.8 %</td> <td>12.3-17.0</td&gt ; </tr> <tr> <td>RDWSD</td> &lt ;td>39.4 </td> <td>37.1-47.8</td> </tr& gt; <tr> <th colspan="10">COMPREHENSIVE METABOLIC PANEL - 04/07/16 06:03</th> </tr> <tr&gt ; <td>SODIUM</td> <td>140 mmol/L</td> <td>136-145</td> </tr> <tr> &lt ;td>POTASSIUM</td> <td>3.7 mmol/L</td> & lt;td>3.5-5.1</td> </tr> <tr> <td >CHLORIDE</td> <td>104 mmol/L</td> <td >98-107</td> </tr> <tr> <td> TCO2</td> <td>28.6 mmol/L</td> <td> 21.0-32.0</td> </tr> <tr> <td>* ANION GAP</td> <td>7.4 mmol/L</td> <td>8.0- 16.0</td> </tr> <tr> <td>BUN</ td> <td>11 </td> <td>7-18</td> </tr> <tr> <td>CREATININE</td> <td>1.29 </td> <td>0.55-1.02</td> & lt;/tr> <tr> <td>*BUN/CREATININE RATIO</td> <td>8.5 </td> <td>9.1-17.0</td> </tr> <tr> <td>GLUCOSE</td> & lt;td>96 </td> <td>65-99</td> </tr> <tr> <td>CALCIUM</td> <td>8.5 & lt;/td> <td>8.5-10.1</td> </tr> < tr> <td>BILIFUBIN TOTAL</td> <td>0.80 </ td> <td>0.20-1.00</td> </tr> <tr& gt; <td>TOTAL PROTEIN</td> <td>6.5 </td& gt; <td>6.4-8.2</td> </tr> <tr> <td>ALBUMIN</td> <td>2.9 </td> <td>3.4-5.0</td> </tr> <tr> &lt ;td>*GLOBULIN</td> <td>3.6 </td> <td& gt;2.3-3.5</td> </tr> <tr> <td>*A /G RATIO</td> <td>0.8 </td> <td>1.5-2.2& lt;/td> </tr> <tr> <td>ALK PHOS</ td> <td>88 U/L</td> <td>46-116</td&gt ; </tr> <tr> <td>ALT (SGPT)</td> <td>26 U/L</td> <td>16-63</td> < /tr> <tr> <td>AST (SGOT)</td> < td>13 U/L</td> <td>15-37</td> </tr> <tr> <th colspan="10">L100.0050 - 00:20</th> </tr> <tr> <td>WBC - WHITE BLOOD COUNT</td> <td>17.7 T/MM3</td> <td>4.5-11.0</td> </tr> <tr> & lt;td>RED BLOOD COUNT</td> <td>5.15 M/MM3</td> <td>4.00-5.20</td> </tr> <tr> <td>HGB - HEMOGLOBIN</td> <td>13.9 GM/DL</td& gt; <td>12-16</td> </tr> <tr> <td>HCT - HEMATOCRIT</td> <td>41.3 %& lt;/td> <td>36-46</td> </tr> <tr& gt; <td>MEAN CORPUSCULAR VOLUME</td> <td> 80.2 UM3</td> <td>80-100</td> </tr> <tr> <td>MEAN CORPUSCULAR HGB</td> < td>27.0 UUG</td> <td>26-34</td> </tr&gt ; <tr> <td>MEAN CORPUSCULAR HGB CONC(MCHC</td&gt ; <td>33.7 GM/DL</td> <td>31-37</td> </tr> <tr> <td>RDW STANDARD DEVIATION& lt;/td> <td>39.7 FL</td> <td>36.9-50.2&lt ;/td> </tr> <tr><td>PLT - PLATELET COUNT</ td> <td>159 T/MM3</td> <td>130-400</td > </tr> <tr> <td>MEAN PLATELET VOLUME</td> <td>10.5 UM3</td> <td>9.4- 12.4</td> </tr> <tr> <th colspan=& quot;10">L100.0105 - 04/12/16 00:20</th> </tr> & lt;tr> <td>NEUTROPHILS % (MANUAL)</td> < td>74.0 %</td> <td>33-66</td> </ tr> <tr> <td>LYMPHOCYTES % (MANUAL)</td> <td>23.0 %</td> <td>23-45</td&gt ; </tr> <tr> <td>MONOCYTES % ( MANUAL)</td> <td>3.0 %</td> <td>0-9.0& lt;/td> </tr> <tr> <td>NEUTROPHILS # (MANUAL)</td> <td>13.1 T/MM3</td> <td& gt;1.8-7.7</td> </tr> <tr> <td> LYMPHOCYTES # (MANUAL)</td> <td>4.1 T/MM3</td> <td>1-4.8</td> </tr> <tr> <td& gt;MONOCYTES # (MANUAL)</td> <td>0.5 T/MM3</td> <td>0-0.8</td> </tr> <tr> & lt;td>RBC MORPHOLOGY</td> <td>NORMAL </td> <td /> </tr> <tr> <th colspan=&quot ;10">L200.2067 - 04/12/16 00:20</th> </tr> <tr& gt; <td>LACTATE - LACTIC ACID, VENOUS</td> <td& gt;0.9 MMOL/L</td> <td>0.6-2.2</td> </tr&gt ; <tr> <th colspan="10">L100.0050 - 22:40</th> </tr> <tr> <td>WBC - WHITE BLOOD COUNT</td> <td>16.1 T/MM3</td> & lt;td>4.5-11.0</td> </tr> <tr> < td>RED BLOOD COUNT</td> <td>5.45 M/MM3</td> <td>4.00-5.20</td> </tr> <tr> <td>HGB - HEMOGLOBIN</td> <td>14.8 GM/DL</td> <td>12-16</td> </tr> <tr> &lt ;td>HCT - HEMATOCRIT</td> <td>44.8 %</td> <td>36-46</td> </tr> <tr> <td>MEAN CORPUSCULAR VOLUME</td> <td>82.2 UM3< /td> <td>80-100</td> </tr> <tr&gt ; <td>MEAN CORPUSCULAR HGB</td> <td>27.2 UUG </td> <td>26-34</td> </tr> <tr > <td>MEAN CORPUSCULAR HGB CONC(MCHC</td> < td>33.0 GM/DL</td> <td>31-37</td> </tr& gt; <tr> <td>RDW STANDARD DEVIATION</td> <td>43.5 FL</td> <td>36.9-50.2</td> </tr> <tr> <td>PLT - PLATELET COUNT</td& gt; <td>331 T/MM3</td> <td>130-400</td&gt ; </tr> <tr> <td>MEAN PLATELET VOLUME& lt;/td> <td>9.2 UM3</td> <td>9.4-12.4< /td> </tr> <tr> <th colspan="10& quot;>L100.0105 - 06/09/16 22:40</th> </tr> <tr& gt; <td>NEUTROPHILS% (MANUAL)</td> <td& gt;70.0 %</td> <td>33-66</td> </tr& gt; <tr> <td>LYMPHOCYTES % (MANUAL)</td& gt; <td>30.0 %</td> <td>23-45</td > </tr> <tr> <td>NEUTROPHILS # ( MANUAL)</td> <td>11.3T/MM3</td> <td> 1.8-7.7</td> </tr> <tr><td>LYMPHOCYTES # ( MANUAL)</td> <td>4.8 T/MM3</td> <td>1- 4.8</td> </tr> <tr> <td>RBC MORPHOLOGY</td> <td>NORMAL </td> <td /&gt ; </tr> <tr> <th colspan="10"> L200.0020 - / 10:32</th> </tr> <tr> &lt ;td>ICTERUS</td> <td>< 2 </td><td>0-7 </td> </tr> <tr> <td>HEMOLYSIS&lt ;/td> <td>< 15 </td> <td>0-25</ td> </tr> <tr> <td>TURBIDITY</td> <td>< 20 </td> <td>0-20</td> </tr> <tr> <td>SODIUM</td> & lt;td>138 MEQ/L</td> <td>134-144</td> </ tr> <tr> <td>POTASSIUM</td> <td >3.9 MEQ/L</td> <td>3.6-5</td> </tr> <tr> <td>CHLORIDE</td> <td>101 MEQ/L</td> <td>98-107</td> </tr> <tr> <td>CO2 - CARBON DIOXIDE</td> <td&gt ;26 MEQ/L</td> <td>22-30</td> </tr> <tr> <td>ANION GAP</td> <td>11 MEQ /L</td> <td>5-15</td> </tr> <tr&gt ; <td>BLOOD UREA NITROGEN</td> <td>19.0 MG/ DL</td> <td>7-17</td> </tr> < tr> <td>CREATININE</td> <td>1.0 MG/DL</td&gt ; <td>0.7-1.2</td> </tr> <tr> <td>BUN/CREATININE RATIO</td> <td>19 RATIO</ td> <td>6-26</td> </tr> <tr> <td>GLOMERULAR FILTRATION RATE</td> <td>65 & lt;/td> <td /> </tr> <tr> &lt ;td>GLUCOSE</td> <td>84 MG/DL</td> <td>65 -110</td> </tr> <tr> <td> OSMOLALITY,CALCULATED</td> <td>267 MOSM/KG</td> <td>261-280</td> </tr> <tr> & lt;td>CALCIUM</td> <td>9.2 MG/DL</td> &lt ;td>8.4-10.2</td> </tr> <tr> <td& gt;BILIRUBIN,TOTAL</td> <td>0.50 MG/DL</td> <td>0.20-1.30</td> </tr> <tr> &lt ;td>ALKALINE PHOSPHATASE</td> <td>86 U/L</td> <td>38-126</td> </tr> <tr> <td>TOTAL PROTEIN</td> <td>7.0 G/DL</td> < td>6.3-8.2</td> </tr> <tr> <td&gt ;ALBUMIN</td> <td>4.1 G/DL</td> <td> 3.5-5.0</td> </tr> <tr> <td> GLOBULIN</td> <td>2.9 G/DL</td> <td>2.4-3.6& lt;/td> </tr> <tr> <td>ALBUMIN/ GLOBULIN RATIO</td> <td>1.4 RATIO</td> <td >1.1-2.2</td> </tr> <tr> <td> AST (SGOT)</td> <td>16 U/L</td> <td>14 -36</td> </tr> <tr> <td>ALT (SGPT )</td> <td>30 U/L</td> <td>9-52</td > </tr> <tr> <th colspan="10" >L100.0050 - 06/27/16 12:03</th> </tr> <tr> <td>WBC - WHITE BLOOD COUNT</td> <td>12.1 T/ MM3</td> <td>4.5-11.0</td> </tr> <tr> <td>RED BLOOD COUNT</td> <td> 5.27 M/MM3</td> <td>4.00-5.20</td> </tr&gt ; <tr> <td>HGB - HEMOGLOBIN</td> < td>14.5 GM/DL</td> <td>12-16</td> </tr& gt; <tr> <td>HCT - HEMATOCRIT</td> & lt;td>43.5 %</td> <td>36-46</td> & lt;/tr> <tr> <td>MEAN CORPUSCULAR VOLUME</td& gt; <td>82.5 UM3</td> <td>80-100</td> </tr> <tr> <td>MEAN CORPUSCULAR HGB</td& gt; <td>27.5 UUG</td> <td>26-34</td> </tr> <tr> <td>MEAN CORPUSCULAR HGB CONC( MCHC</td> <td>33.3 GM/DL</td> <td>31- 37</td> </tr> <tr> <td>RDW STANDARD DEVIATION</td> <td>42.2 FL</td> <td&gt ;36.9-50.2</td> </tr> <tr> <td> PLT - PLATELET COUNT</td> <td>339 T/MM3</td> & lt;td>130-400</td> </tr> <tr> <td >MEAN PLATELET VOLUME</td> <td>9.2 UM3</td> <td>9.4-12.4</td> </tr> <tr> & lt;td>NEUTROPHILS % (AUTO)</td> <td>64.1 %< /td> <td>33-66</td> </tr> <tr> <td>LYMPHOCYTES % (AUTO)</td> <td>24.7 & amp;#37;</td> <td>23-45</td> </tr> <tr> <td>MONOCYTES % (AUTO)</td> <td>7.2 %</td> <td>0-9.0</td> & lt;/tr> <tr> <td>EOSINOPHILS %(AUTO)</ td> <td>3.5 %</td> <td>0-4</td > </tr> <tr> <td>BASOPHILS % (AUTO )</td> <td>0.3 %</td> <td>0-2& lt;/td> </tr> <tr> <td>IMMATURE GRANULOCYTE % (AUTO)</td> <td>0.2 %</td& gt; <td>0.0-0.5</td> </tr> <tr> <td>NEUTROPHILS # (AUTO)</td> <td>7.8 T/MM3& lt;/td> <td>1.8-7.7</td> </tr> < tr> <td>LYMPHOCYTES # (AUTO)</td> <td> 3.0 T/MM3</td> <td>1-4.8</td> </tr> & lt;tr> <td>MONOCYTES # (AUTO)</td> <td> 0.9 T/MM3</td> <td>0-0.8</td> </tr> <tr> <td>EOSINOPHILS # (AUTO)</td> < td>0.4 T/MM3</td> <td>0-0.5</td> </tr&gt ; <tr> <td>BASOPHILS # (AUTO)</td> & lt;td>0.0 T/MM3</td> <td>0-0.2</td> </tr > <tr> <td>IMMATURE GRANULOCYTE # (AUTO)</td> <td>0.02 T/MM3</td> <td>0.00-0.03</td> </tr> <tr> <th colspan="10"> L160.0105 - 06/27/16 12:03</th> </tr> <tr> <td>INR</td> <td>1.03 </td> < td>0.76-1.04</td> </tr> <tr> <th colspan="10">L160.0110 - 06/27/16 12:03</th> </tr& gt; <tr> <td>PTT</td> <td>36.1 SEC</td> <td>24-36</td> </tr> &lt ;tr> <th colspan="10">L200.0020 - 06/27/16 12:03</th&gt ; </tr><tr> <td>ICTERUS</td> & lt;td>< 2 </td> <td>0-7</td> </tr > <tr> <td>HEMOLYSIS</td> <td&gt ;< 15 </td> <td>0-25</td> </tr> <tr> <td>TURBIDITY</td> <td>&lt ; 20 </td> <td>0-20</td> </tr> <tr& gt; <td>SODIUM</td> <td>139 MEQ/L</td&gt ; <td>134-144</td> </tr> <tr> <td>POTASSIUM</td> <td>4.0 MEQ/L</td> <td>3.6-5</td> </tr> <tr> < td>CHLORIDE</td> <td>103 MEQ/L</td> < td>98-107</td> </tr> <tr> <td> CO2 - CARBON DIOXIDE</td> <td>28 MEQ/L</td> <td>22-30</td> </tr> <tr> <td& gt;ANION GAP</td> <td>8 MEQ/L</td> <td&gt ;5-15</td> </tr> <tr> <td>BLOOD UREA NITROGEN</td> <td>17.0 MG/DL</td> <td> 7-17</td> </tr> <tr> <td>CREATININE</td > <td>1.1 MG/DL</td> <td>0.7-1.2</td& gt; </tr> <tr> <td>BUN/CREATININE RATIO </td> <td>16 RATIO</td> <td>6-26</td&gt ; </tr> <tr> <td>GLOMERULAR FILTRATION RATE</td> <td>58 </td> <td /> </ tr> <tr> <td>GLUCOSE</td> <td>99 MG/ DL</td> <td>65-110</td> </tr> &lt ;tr> <td>OSMOLALITY,CALCULATED</td> <td> 270 MOSM/KG</td> <td>261-280</td> </tr> <tr> <td>CALCIUM</td> <td>9.9 MG/ DL</td> <td>8.4-10.2</td> </tr> & lt;tr> <td>BILIRUBIN,TOTAL</td> <td>0.70 MG/DL</td> <td>0.20-1.30</td> </tr> <tr> <td>ALKALINE PHOSPHATASE</td> < td>81 U/L</td> <td>38-126</td> </tr> <tr> <td>TOTAL PROTEIN</td><td>7.3 G/DL </td> <td>6.3-8.2</td> </tr> < tr> <td>ALBUMIN</td> <td>4.3 G/DL</td& gt; <td>3.5-5.0</td> </tr> <tr> <td>GLOBULIN</td> <td>3.0 G/DL</td> & lt;td>2.4-3.6</td> </tr> <tr> <td >ALBUMIN/GLOBULIN RATIO</td> <td>1.4 RATIO</td> <td>1.1-2.2</td> </tr> <tr> <td>AST (SGOT)</td> <td>22 U/L</td> & lt;td>14-36</td> </tr> <tr> <td& gt;ALT (SGPT)</td> <td>35 U/L</td> <td>9 -52</td> </tr> <tr> <th colspan=& quot;10">L200.3850 - 06/27/16 12:03</th> </tr> <tr> <td>THYROID STIM HORMONE-TSH</td> &lt ;td>1.84 MIU/L</td> <td>0.47-4.68</td> < /tr> <tr> <th colspan="10">L100.0050 - 07/01/16 12:54</th> </tr> <tr> <td& gt;WBC - WHITE BLOOD COUNT</td> <td>11.7 T/MM3</td> <td>4.5-11.0</td> </tr> <tr> <td>RED BLOOD COUNT</td> <td>5.00 M/MM3</td& gt; <td>4.00-5.20</td> </tr> <tr&gt ; <td>HGB - HEMOGLOBIN</td> <td>13.9 GM/DL& lt;/td> <td>12-16</td> </tr> <tr> <td>HCT - HEMATOCRIT</td> <td>41.4 %< /td> <td>36-46</td> </tr> <tr&gt ; <td>MEAN CORPUSCULAR VOLUME</td> <td>82.8 UM3</td> <td>80-100</td> </tr> & lt;tr> <td>MEAN CORPUSCULAR HGB</td> <td>27.8 UUG </td> <td>26-34</td> </tr> <tr > <td>MEAN CORPUSCULAR HGB CONC(MCHC</td> < td>33.6 GM/DL</td> <td>31-37</td> </tr& gt; <tr> <td>RDW STANDARD DEVIATION</td> <td>41.5 FL</td> <td>36.9-50.2</td> </tr> <tr> <td>PLT - PLATELET COUNT</td> <td>322 T/MM3</td> <td>130-400</td> </tr> <tr> <td>MEAN PLATELET VOLUME</td& gt; <td>9.4 UM3</td> <td>9.4-12.4</td&gt ; </tr> <tr> <td>NEUTROPHILS % (AUTO)</td> <td>58.0 %</td> <td& gt;33-66</td> </tr> <tr> <td> LYMPHOCYTES % (AUTO)</td> <td>30.8 %</td > <td>23-45</td> </tr> <tr> <td>MONOCYTES % (AUTO)</td> <td>6.8 & amp;#37;</td> <td>0-9.0</td> </tr> <tr> <td>EOSINOPHILS % (AUTO)</td> <td>3.7 %</td> <td>0-4</td> & lt;/tr> <tr> <td>BASOPHILS % (AUTO)</td& gt; <td>0.5 %</td> <td>0-2</td&gt ; </tr> <tr> <td>IMMATURE GRANULOCYTE & amp;#37; (AUTO)</td> <td>0.2 %</td> &lt ;td>0.0-0.5</td> </tr> <tr> <td& gt;NEUTROPHILS # (AUTO)</td> <td>6.8 T/MM3</td> <td>1.8-7.7</td> </tr> <tr> & lt;td>LYMPHOCYTES # (AUTO)</td> <td>3.6 T/MM3</td&gt ; <td>1-4.8</td> </tr> <tr> <td>MONOCYTES # (AUTO)</td> <td>0.8 T/MM3</td& gt; <td>0-0.8</td> </tr> <tr> <td>EOSINOPHILS # (AUTO)</td> <td>0.4 T/MM3&lt ;/td> <td>0-0.5</td> </tr> <tr&gt ; <td>BASOPHILS # (AUTO)</td> <td>0.1 T/MM3& lt;/td> <td>0-0.2</td> </tr> <tr& gt; <td>IMMATURE GRANULOCYTE # (AUTO)</td> <td& gt;0.02 T/MM3</td> <td>0.00-0.03</td> </tr& gt; <tr> <th colspan="10">L200.2067 - 12:54</th> </tr> <tr> <td> LACTATE - LACTIC ACID, VENOUS</td> <td>1.0 MMOL/L</td&gt ; <td>0.6-2.2</td> </tr> <tr> <th colspan="10">L200.07/01/16 12:54</th> </tr> <tr> <td>C-REACTIVE PROTEIN</td& gt; <td>7.9 MG/L</td> <td>0-9</td> </tr> <tr> <th colspan="10"> L200.206707/01/16 12:54</th> </tr> <tr> <td>PROCALCITONIN</td> <td>< 0.05 NG/ML& lt;/td> <td /> </tr> <tr> & lt;th colspan="10">L200.00208/07/16 10:59</th> &lt ;/tr> <tr> <td>ICTERUS</td> <td >< 2 </td> <td>0-7</td> </tr> <tr> <td>HEMOLYSIS</td> <td>17 </ td> <td>0-25</td> </tr> <tr> <td>TURBIDITY</td> <td>< 20 </td&gt ; <td>0-20</td> </tr> <tr> <td>SODIUM</td> <td>143 MEQ/L</td> <td>134-144</td> </tr> <tr> &lt ;td>POTASSIUM</td> <td>4.2 MEQ/L</td> &lt ;td>3.6-5</td> </tr> <tr> <td> CHLORIDE</td> <td>106 MEQ/L</td> <td>98-107&lt ;/td> </tr> <tr> <td>CO2 - CARBON DIOXIDE</td> <td>25 MEQ/L</td> <td>22-30< /td> </tr> <tr> <td>ANION GAP</td > <td>12 MEQ/L</td> <td>5-15</td> </tr> <tr> <td>BLOOD UREA NITROGEN</td > <td>17.0 MG/DL</td> <td>7-17</td&gt ; </tr> <tr> <td>CREATININE</td> <td>0.9 MG/DL</td> <td>0.7-1.2</td> </tr> <tr> <td>BUN/CREATININE RATIO</td& gt; <td>19 RATIO</td> <td>6-26</td> </tr> <tr> <td>GLOMERULAR FILTRATION RATE</td > <td>74 </td> <td /> </tr> <tr> <td>GLUCOSE</td> <td>120 MG/DL</td> <td>65-110</td> </tr> <tr> <td>OSMOLALITY,CALCULATED</td> <td>278 MOSM/KG</td> <td>261-280</td> </tr> <tr> <td>CALCIUM</td> <td>9.7 MG/DL&lt ;/td> <td>8.4-10.2</td> </tr> <tr> <td>BILIRUBIN,TOTAL</td> <td>0.70 MG/DL</ td> <td>0.20-1.30</td> </tr> <tr&gt ; <td>ALKALINE PHOSPHATASE</td> <td>86 U/L& lt;/td> <td>38-126</td> </tr> <tr&gt ; <td>TOTAL PROTEIN</td> <td>7.7 G/DL</td > <td>6.3-8.2</td> </tr> <tr>& lt;td>ALBUMIN</td> <td>4.5 G/DL</td> < td>3.5-5.0</td> </tr> <tr> <td&gt ;GLOBULIN</td> <td>3.2 G/DL</td> <td> 2.4-3.6</td> </tr> <tr> <td>ALBUMIN/ GLOBULIN RATIO</td> <td>1.4 RATIO</td> < td>1.1-2.2</td> </tr> <tr> <td&gt ;AST (SGOT)</td> <td>23 U/L</td> <td>14 -36</td> </tr> <tr> <td>ALT (SGPT )</td> <td>43 U/L</td> <td>9-52</td > </tr> <tr> <th colspan="10" >L200.2000 - 08/07/16 10:59</th> </tr> <tr> <td>MAGNESIUM</td> <td>1.9 MG/DL</td> <td>1.6-2.3</td> </tr> <tr> <th colspan="10">L100.0050 - 08/07/16 10:59</th> </tr> <tr> <td>WBC - WHITE BLOOD COUNT&lt ;/td> <td>16.1 T/MM3</td> <td>4.5-11.0</td& gt; </tr> <tr> <td>RED BLOOD COUNT</td> <td>5.34 M/MM3</td> <td>4.00-5.20</td> </tr> <tr> <td>HGB - HEMOGLOBIN</td& gt; <td>15.0 GM/DL</td> <td>12-16</td&gt ; </tr> <tr> <td>HCT - HEMATOCRIT</td&gt ; <td>44.4 %</td> <td>36-46</td& gt; </tr> <tr> <td>MEAN CORPUSCULAR VOLUME& lt;/td> <td>83.1 UM3</td> <td>80-100</ td> </tr> <tr> <td>MEAN CORPUSCULAR HGB</td> <td>28.1 UUG</td> <td>26-34& lt;/td> </tr> <tr> <td>MEAN CORPUSCULAR HGB CONC(MCHC</td> <td>33.8 GM/DL</td> <td>31-37</td> </tr> <tr> &lt ;td>RDW STANDARD DEVIATION</td> <td>42.0 FL</td> <td>36.9-50.2</td> </tr> <tr> <td>PLT - PLATELET COUNT</td> <td>313 T/MM3&lt ;/td> <td>130-400</td> </tr> <tr& gt; <td>MEAN PLATELET VOLUME</td> <td>9.1 UM3</td> <td>9.4-12.4</td> </tr> <tr><th colspan="10">L100.0105 - 08/07/16 10:59</th&gt ; </tr> <tr> <td>NEUTROPHILS % (MANUAL)</td> <td>67.0 %</td> <td >33-66</td> </tr> <tr> <td> LYMPHOCYTES % (MANUAL)</td> <td>26.0 %</ td> <td>23-45</td> </tr> <tr> <td>MONOCYTES %(MANUAL)</td> <td> 6.0 %</td> <td>0-9.0</td> </tr> <tr> <td>EOSINOPHILS % (MANUAL)</td> <td>1.0 %</td> <td>0-4</td> & lt;/tr> <tr> <td>NEUTROPHILS # (MANUAL)</td&gt ; <td>10.8 T/MM3</td> <td>1.8-7.7</td&gt ; </tr> <tr> <td>LYMPHOCYTES # (MANUAL) </td> <td>4.2 T/MM3</td> <td>1-4.8< /td> </tr> <tr> <td>MONOCYTES # ( MANUAL)</td> <td>1.0 T/MM3</td> <td>0-0.8</ td> </tr> <tr> <td>EOSINOPHILS # ( MANUAL)</td> <td>0.2 T/MM3</td> <td>0-0.5& lt;/td> </tr> <tr> <td>RBC MORPHOLOGY</td> <td>NORMAL </td> <td /&gt ; </tr> <tr> <th colspan="10"&gt ;L100.0050 - 08/21/16 10:58</th> </tr> <tr> <td>WBC - WHITE BLOOD COUNT</td> <td>10.6 T/MM3 </td> <td>4.5-11.0</td> </tr> &lt ;tr> <td>RED BLOOD COUNT</td> <td>6.12 M/MM3< /td> <td>4.00-5.20</td> </tr> <tr > <td>HGB - HEMOGLOBIN</td> <td>17.1 GM/ DL</td> <td>12-16</td> </tr> <tr& gt; <td>HCT - HEMATOCRIT</td> <td>47.3 & #37;</td> <td>36-46</td> </tr> & lt;tr> <td>MEAN CORPUSCULAR VOLUME</td> <td& gt;77.3 UM3</td> <td>80-100</td> </tr> <tr> <td>MEAN CORPUSCULAR HGB</td> <td& gt;27.9 UUG</td> <td>26-34</td> </tr> <tr> <td>MEAN CORPUSCULAR HGB CONC(MCHC</td> <td>36.2 GM/DL</td> <td>31-37</td> </tr> <tr> <td>RDW STANDARD DEVIATION</ td> <td>36.8 FL</td> <td>36.9-50.2</td > </tr> <tr> <td>PLT - PLATELET COUNT</td> <td>339 T/MM3</td> <td>130-400& lt;/td> </tr> <tr> <td>MEAN PLATELET VOLUME</td> <td>8.9 UM3</td> <td&gt ;9.4-12.4</td> </tr> <tr> <td> NEUTROPHILS % (AUTO)</td> <td>65.1 %</td > <td>33-66</td> </tr> <tr> <td>LYMPHOCYTES % (AUTO)</td> <td> 23.1 %</td> <td>23-45</td> </tr&gt ; <tr> <td>MONOCYTES % (AUTO)</td> <td>6.7 %</td> <td>0-9.0</td> </tr> <tr> <td>EOSINOPHILS % (AUTO)& lt;/td> <td>4.3 %</td> <td>0-4</ td> </tr> <tr> <td>BASOPHILS &# 37; (AUTO)</td> <td>0.5 %</td> < td>0-2</td> </tr> <tr> <td> IMMATURE GRANULOCYTE % (AUTO)</td> <td>0.3 &#37 ;</td> <td>0.0-0.5</td> </tr> &lt ;tr> <td>NEUTROPHILS # (AUTO)</td> <td> 6.9 T/MM3</td> <td>1.8-7.7</td> </tr> <tr> <td>LYMPHOCYTES # (AUTO)</td> &lt ;td>2.4 T/MM3</td> <td>1-4.8</td> </tr& gt; <tr> <td>MONOCYTES # (AUTO)</td> & lt;td>0.7 T/MM3</td> <td>0-0.8</td> </tr ><tr> <td>EOSINOPHILS # (AUTO)</td> < td>0.5 T/MM3</td> <td>0-0.5</td> </tr&gt ; <tr> <td>BASOPHILS # (AUTO)</td> & lt;td>0.1 T/MM3</td> <td>0-0.2</td> </tr&gt ; <tr> <td>IMMATURE GRANULOCYTE # (AUTO)</td> <td>0.03 T/MM3</td> <td>0.00-0.03</td> </tr> <tr> <th colspan="10"> L200.1855 - 08/21/16 10:58</th> </tr> <tr> <td>LDH</td> <td>587 U/L</td> <td& gt;313-618</td> </tr> <tr> <th colspan="10">L100.0050 - 08/28/16 12:41</th> </tr& gt; <tr> <td>WBC - WHITE BLOOD COUNT</td> <td>10.8 T/MM3</td> <td>4.5-11.0</td> </tr> <tr> <td>RED BLOOD COUNT</td&gt ; <td>5.47 M/MM3</td> <td>4.00-5.20</td& gt; </tr> <tr> <td>HGB - HEMOGLOBIN< /td> <td>15.3 GM/DL</td> <td>12-16</td > </tr> <tr> <td>HCT - HEMATOCRIT&lt ;/td> <td>45.4 %</td> <td>36-46& lt;/td> </tr> <tr> <td>MEAN CORPUSCULAR VOLUME</td> <td>83.0 UM3</td> <td& gt;80-100</td> </tr> <tr> <td> MEAN CORPUSCULAR HGB</td> <td>28.0 UUG</td> < td>26-34</td> </tr> <tr> <td> MEAN CORPUSCULAR HGB CONC(MCHC</td> <td>33.7 GM/DL</td& gt; <td>31-37</td> </tr> <tr> <td>RDW STANDARD DEVIATION</td> <td>42.5 FL</td&gt ; <td>36.9-50.2</td> </tr> <tr> <td>PLT - PLATELET COUNT</td> <td>290 T/MM3& lt;/td> <td>130-400</td> </tr> <tr& gt; <td>MEAN PLATELET VOLUME</td> <td>9.7 UM3</td> <td>9.4-12.4</td> </tr> & lt;tr> <td>NEUTROPHILS % (AUTO)</td> <td&gt ;63.2 %</td> <td>33-66</td> </tr&gt ;<tr> <td>LYMPHOCYTES % (AUTO)</td> <td>24.7 %</td> <td>23-45</td> & lt;/tr> <tr> <td>MONOCYTES % (AUTO)</ td> <td>5.4 %</td> <td>0-9.0</ td> </tr> <tr> <td>EOSINOPHILS & #37; (AUTO)</td> <td>5.7 %</td> < td>0-4</td> </tr> <tr> <td>BASOPHILS % (AUTO)</td> <td>0.6 %</td> <td>0-2</td> </tr> <tr> <td& gt;IMMATURE GRANULOCYTE % (AUTO)</td> <td>0.4 & #37;</td> <td>0.0-0.5</td> </tr> <tr> <td>NEUTROPHILS # (AUTO)</td> <td&gt ;6.9 T/MM3</td> <td>1.8-7.7</td> </tr> <tr> <td>LYMPHOCYTES # (AUTO)</td> & lt;td>2.7 T/MM3</td> <td>1-4.8</td> </tr > <tr> <td>MONOCYTES # (AUTO)</td> < td>0.6 T/MM3</td> <td>0-0.8</td> </tr&gt ; <tr> <td>EOSINOPHILS # (AUTO)</td> <td>0.6 T/MM3</td> <td>0-0.5</td> </tr& gt; <tr> <td>BASOPHILS # (AUTO)</td> <td>0.1 T/MM3</td> <td>0-0.2</td> </ tr> <tr> <td>IMMATURE GRANULOCYTE # (AUTO)</td> <td>0.04 T/MM3</td> <td>0.00-0.03</td> </tr> <tr> <th colspan="10"> L200.0020 - 08/28/16 12:41</th> </tr> <tr> <td>ICTERUS</td> <td>< 2 </td> <td>0-7</td> </tr> <tr> &lt ;td>HEMOLYSIS</td> <td>31 </td> <td&gt ;0-25</td> </tr> <tr> <td> TURBIDITY</td> <td>< 20 </td> <td& gt;0-20</td> </tr> <tr> <td>SODIUM& lt;/td> <td>140 MEQ/L</td> <td>134-144&lt ;/td> </tr> <tr> <td>POTASSIUM</ td> <td>4.1 MEQ/L</td> <td>3.6-5</td& gt; </tr> <tr> <td>CHLORIDE</td> <td>106 MEQ/L</td> <td>98-107</td> </tr> <tr> <td>CO2 - CARBON DIOXIDE</ td> <td>24 MEQ/L</td> <td>22-30</td&gt ; </tr> <tr> <td>ANION GAP</td> <td>10 MEQ/L</td> <td>5-15</td> </tr> <tr> <td>BLOOD UREA NITROGEN</td&gt ; <td>17.0 MG/DL</td> <td>7-17</td> </tr> <tr> <td>CREATININE</td> <td>1.0 MG/DL</td> <td>0.7-1.2</td> </tr> <tr> <td>BUN/CREATININE RATIO</td&gt ; <td>17 RATIO</td> <td>6-26</td> </tr> <tr> <td>GLOMERULAR FILTRATION RATE& lt;/td> <td>65 </td> <td /> </ tr> <tr> <td>GLUCOSE</td> <td& gt;117 MG/DL</td> <td>65-110</td> </tr> <tr> <td>OSMOLALITY,CALCULATED</td> <td>272 MOSM/KG</td> <td>261-280</td> & lt;/tr> <tr> <td>CALCIUM</td> < td>9.8 MG/DL</td> <td>8.4-10.2</td> </tr > <tr> <td>BILIRUBIN,TOTAL</td> <td& gt;1.00 MG/DL</td> <td>0.20-1.30</td> </tr& gt; <tr> <td>ALKALINE PHOSPHATASE</td> <td>94 U/L</td> <td>38-126</td> </ tr> <tr> <td>TOTAL PROTEIN</td> &lt ;td>7.4 G/DL</td> <td>6.3-8.2</td> </tr& gt; <tr> <td>ALBUMIN</td> <td> 4.3 G/DL</td> <td>3.5-5.0</td> </tr> <tr> <td>GLOBULIN</td> <td>3.1 G/ DL</td> <td>2.4-3.6</td> </tr> & lt;tr> <td>ALBUMIN/GLOBULIN RATIO</td> <td& gt;1.4 RATIO</td> <td>1.1-2.2</td> </tr&gt ; <tr> <td>AST (SGOT)</td> <td> 28 U/L</td> <td>14-36</td> </tr> <tr> <td>ALT (SGPT)</td> <td>45 U/L</td> <td>9-52</td> </tr> <tr> <th colspan="10">L200.1999 - 08/28/16 12:41</th> </tr> <tr> <td>MAGNESIUM</td> < td>2.0 MG/DL</td> <td>1.6-2.3</td> </tr& gt; <tr> <th colspan="10">L100.0050 - 12:34</th> </tr> <tr> <td> WBC - WHITE BLOOD COUNT</td> <td>15.0 T/MM3</td> <td>4.5-11.0</td> </tr> <tr> < td>RED BLOOD COUNT</td> <td>5.12 M/MM3</td> <td>4.00-5.20</td> </tr> <tr> <td>HGB - HEMOGLOBIN</td> <td>14.7 GM/DL</td&gt ; <td>12-16</td> </tr> <tr> <td>HCT - HEMATOCRIT</td> <td>42.6 %</ td> <td>36-46</td> </tr> <tr> <td>MEAN CORPUSCULAR VOLUME</td> <td>83.2 UM3</td> <td>80-100</td> </tr> & lt;tr> <td>MEAN CORPUSCULAR HGB</td> <td>28.7 UUG</td> <td>26-34</td> </tr> &lt ;tr> <td>MEAN CORPUSCULAR HGB CONC(MCHC</td> & lt;td>34.5 GM/DL</td> <td>31-37</td> </ tr> <tr> <td>RDW STANDARD DEVIATION</td> <td>41.9 FL</td> <td>36.9-50.2</td> </tr> <tr> <td>PLT - PLATELET COUNT</ td> <td>339 T/MM3</td> <td>130-400</td&gt ; </tr><tr> <td>MEAN PLATELET VOLUME</td&gt ; <td>9.3 UM3</td> <td>9.4-12.4</td> </tr> <tr> <td>NEUTROPHILS % ( AUTO)</td> <td>67.9 %</td> <td&gt ;33-66</td> </tr> <tr> <td> LYMPHOCYTES % (AUTO)</td> <td>21.6 %</td > <td>23-45</td> </tr> <tr> <td>MONOCYTES % (AUTO)</td> <td>6.9 & amp;#37;</td> <td>0-9.0</td> </tr> <tr> <td>EOSINOPHILS % (AUTO)</td> & lt;td>3.1 %</td> <td>0-4</td> </tr > <tr> <td>BASOPHILS % (AUTO)</td> <td>0.2 %</td> <td>0-2</td> </tr> <tr> <td>IMMATURE GRANULOCYTE & amp;#37; (AUTO)</td> <td>0.3 %</td> <td>0.0-0.5</td> </tr> <tr> < td>NEUTROPHILS # (AUTO)</td> <td>10.2 T/MM3</td> <td>1.8-7.7</td> </tr> <tr> <td>LYMPHOCYTES # (AUTO)</td> <td>3.2 T/MM3</ td> <td>1-4.8</td> </tr> <tr> <td>MONOCYTES # (AUTO)</td> <td>1.0 T/MM3& lt;/td> <td>0-0.8</td> </tr> <tr> <td>EOSINOPHILS # (AUTO)</td> <td>0.5 T/MM3& lt;/td> <td>0-0.5</td> </tr> <tr& gt; <td>BASOPHILS # (AUTO)</td> <td>0.0 T/ MM3</td> <td>0-0.2</td> </tr> < tr> <td>IMMATURE GRANULOCYTE # (AUTO)</td> <td> 0.05 T/MM3</td> <td>0.00-0.03</td> </tr&gt ; <tr> <th colspan="10">L200.0020 - 10/16/16 12: 34</th> </tr> <tr> <td>ICTERUS&lt ;/td> <td>< 2 </td> <td>0-7</td > </tr> <tr> <td>HEMOLYSIS</td&gt ; <td>46 </td> <td>0-25</td> & lt;/tr> <tr> <td>TURBIDITY</td> & lt;td>< 20 </td> <td>0-20</td> </ tr> <tr> <td>SODIUM</td> <td&gt ;142 MEQ/L</td> <td>134-144</td> </tr> <tr> <td>POTASSIUM</td> <td> 4.2 MEQ/L</td> <td>3.6-5</td> </tr> <tr> <td>CHLORIDE</td> <td>103 MEQ /L</td> <td>98-107</td> </tr> &lt ;tr> <td>CO2 - CARBON DIOXIDE</td> <td> 26 MEQ/L</td> <td>22-30</td> </tr> <tr> <td>ANION GAP</td> <td>13 MEQ/ L</td> <td>5-15</td> </tr> <tr > <td>BLOOD UREA NITROGEN</td> <td>16.0 MG/DL</td> <td>7-17</td> </tr> & lt;tr> <td>CREATININE</td> <td>1.0 MG/DL& lt;/td> <td>0.7-1.2</td> </tr> < tr> <td>BUN/CREATININE RATIO</td> <td>16 RATIO</td> <td>6-26</td> </tr> < tr> <td>GLOMERULAR FILTRATION RATE</td> <td& gt;65 </td> <td /> </tr> <tr> <td>GLUCOSE</td> <td>86 MG/DL</td> <td>65-110</td> </tr> <tr> <td >OSMOLALITY,CALCULATED</td> <td>273 MOSM/KG</td> <td>261-280</td> </tr> <tr> <td>CALCIUM</td> <td>9.6 MG/DL</td> <td>8.4-10.2</td> </tr> <tr> < td>BILIRUBIN,TOTAL</td> <td>0.70 MG/DL</td> <td>0.20-1.30</td> </tr> <tr> < td>ALKALINE PHOSPHATASE</td> <td>77 U/L</td> <td>38-126</td> </tr> <tr> & lt;td>TOTAL PROTEIN</td> <td>7.2 G/DL</td> <td>6.3-8.2</td> </tr> <tr> <td&gt ;ALBUMIN</td> <td>4.5 G/DL</td> <td> 3.5-5.0</td> </tr> <tr> <td> GLOBULIN</td> <td>2.7 G/DL</td> <td> 2.4-3.6</td> </tr> <tr> <td>ALBUMIN/ GLOBULIN RATIO</td> <td>1.7 RATIO</td> < td>1.1-2.2</td> </tr> <tr> <td&gt ;AST (SGOT)</td> <td>25 U/L</td> <td> 14-36</td> </tr> <tr> <td>ALT (SGPT)< /td> <td>42 U/L</td> <td>9-52</td> </tr> <tr> <th colspan="10"> L100.0050 - 10/22/16 08:07</th> </tr> <tr> & lt;td>WBC - WHITE BLOOD COUNT</td> <td>11.1 T/MM3</td > <td>4.5-11.0</td> </tr> <tr&gt ; <td>RED BLOOD COUNT</td> <td>5.25 M/MM3&lt ;/td> <td>4.00-5.20</td> </tr> < tr> <td>HGB - HEMOGLOBIN</td> <td>14.9 GM /DL</td> <td>12-16</td> </tr> &lt ;tr> <td>HCT - HEMATOCRIT</td> <td>44.4 & amp;#37;</td> <td>36-46</td> </tr> <tr> <td>MEAN CORPUSCULAR VOLUME</td> &lt ;td>84.6 UM3</td> <td>80-100</td> </tr& gt; <tr> <td>MEAN CORPUSCULAR HGB</td> & lt;td>28.4 UUG</td> <td>26-34</td> </tr& gt; <tr> <td>MEANCORPUSCULAR HGB CONC(MCHC</td&gt ; <td>33.6 GM/DL</td> <td>31-37</td> </tr> <tr> <td>RDW STANDARD DEVIATION& lt;/td> <td>43.0 FL</td> <td>36.9-50.2&lt ;/td> </tr> <tr> <td>PLT - PLATELET COUNT</td> <td>336 T/MM3</td> <td>130- 400</td> </tr> <tr> <td>MEAN PLATELET VOLUME</td> <td>9.2 UM3</td> <td >9.4-12.4</td> </tr> <tr> <td> NEUTROPHILS % (AUTO)</td> <td>65.2 %</td > <td>33-66</td> </tr> <tr> <td>LYMPHOCYTES % (AUTO)</td> <td> 23.2 %</td> <td>23-45</td> </tr&gt ; <tr> <td>MONOCYTES % (AUTO)</td> & lt;td>6.0 %</td> <td>0-9.0</td> </tr&gt ; <tr> <td>EOSINOPHILS % (AUTO)</td> <td>4.9 %</td> <td>0-4</td> </tr> <tr> <td>BASOPHILS % (AUTO )</td> <td>0.4 %</td> <td>0-2</td > </tr> <tr> <td>IMMATURE GRANULOCYTE % (AUTO)</td> <td>0.3 %</td& gt; <td>0.0-0.5</td> </tr> <tr> <td>NEUTROPHILS # (AUTO)</td> <td>7.2 T/MM3</td& gt; <td>1.8-7.7</td> </tr> <tr> <td>LYMPHOCYTES # (AUTO)</td> <td>2.6 T/MM3& lt;/td> <td>1-4.8</td> </tr> <tr& gt; <td>MONOCYTES # (AUTO)</td> <td>0.7 T/ MM3</td> <td>0-0.8</td> </tr> &lt ;tr> <td>EOSINOPHILS # (AUTO)</td> <td> 0.5 T/MM3</td> <td>0-0.5</td> </tr> <tr> <td>BASOPHILS # (AUTO)</td> <td>0.0 T/ MM3</td> <td>0-0.2</td> </tr> &lt ;tr> <td>IMMATURE GRANULOCYTE # (AUTO)</td> &lt ;td>0.03 T/MM3</td> <td>0.00-0.03</td> < /tr> <tr> <th colspan="10">L100.0050 - 11/05/16 12:04</th> </tr> <tr> <td> WBC - WHITE BLOOD COUNT</td> <td>12.6 T/MM3</td> <td>4.5-11.0</td> </tr> <tr> <td>RED BLOOD COUNT</td> <td>5.43 M/MM3</td&gt ; <td>4.00-5.20</td> </tr> <tr> <td>HGB - HEMOGLOBIN</td> <td>15.3 GM/DL< /td> <td>12-16</td> </tr> <tr&gt ; <td>HCT - HEMATOCRIT</td> <td>45.6 &# 37;</td> <td>36-46</td> </tr> &lt ;tr> <td>MEAN CORPUSCULAR VOLUME</td> <td&gt ;84.0 UM3</td> <td>80-100</td> </tr> <tr> <td>MEAN CORPUSCULAR HGB</td> <td& gt;28.2 UUG</td> <td>26-34</td> </tr> <tr> <td>MEAN CORPUSCULAR HGB CONC(MCHC</td> <td>33.6 GM/DL</td> <td>31-37</td> </tr> <tr> <td>RDW STANDARD DEVIATION</ td> <td>41.8 FL</td> <td>36.9-50.2</td > </tr> <tr> <td>PLT - PLATELET COUNT& lt;/td> <td>330 T/MM3</td> <td>130-400&lt ;/td> </tr> <tr> <td>MEAN PLATELET VOLUME</td> <td>9.2 UM3</td> <td>9.4- 12.4</td> </tr> <tr> <td> NEUTROPHILS % (AUTO)</td> <td>66.0 %</td > <td>33-66</td> </tr> <tr> <td>LYMPHOCYTES % (AUTO)</td> <td> 21.4 %</td> <td>23-45</td> </tr&gt ; <tr> <td>MONOCYTES % (AUTO)</td> <td>6.3 %</td> <td>0-9.0</td> </tr& gt; <tr> <td>EOSINOPHILS % (AUTO)</td&gt ; <td>5.6 %</td> <td>0-4</td> </tr> <tr> <td>BASOPHILS % ( AUTO)</td> <td>0.3 %</td> <td>0-2& lt;/td> </tr> <tr> <td>IMMATURE GRANULOCYTE % (AUTO)</td> <td>0.4%</td& gt; <td>0.0-0.5</td> </tr> <tr> <td>NEUTROPHILS # (AUTO)</td> <td>8.3 T/MM3</td > <td>1.8-7.7</td> </tr> <tr> <td>LYMPHOCYTES # (AUTO)</td> <td>2.7 T/MM3 </td> <td>1-4.8</td> </tr> <tr > <td>MONOCYTES # (AUTO)</td> <td>0.8 T/ MM3</td> <td>0-0.8</td> </tr> &lt ;tr> <td>EOSINOPHILS # (AUTO)</td> <td> 0.7 T/MM3</td> <td>0-0.5</td> </tr> <tr> <td>BASOPHILS # (AUTO)</td> <td>0.0 T /MM3</td> <td>0-0.2</td> </tr> & lt;tr> <td>IMMATURE GRANULOCYTE # (AUTO)</td> & lt;td>0.05 T/MM3</td> <td>0.00-0.03</td> & lt;/tr> <tr> <th colspan="10"> L200.0020 - 11/05/16 12:04</th> </tr> <tr> <td>FUNGAL CULTURE.</td> <td>1.0 MG/DL</td> <td>0.7-1.2</td> </tr> <tr> <td>FUNGAL CULTURE, BLOOD.</td> <td>13 RATIO</ td> <td>6-26</td> </tr> <tr> <td>NA - Sodium</td> <td>145 MEQ/L</td&gt ; <td>134-144</td> </tr> <tr> <td>Potassium</td> <td>4.3 MEQ/L</td> <td>3.6-5</td> </tr> <tr> <td>Chloride</td> <td>107 MEQ/L</td> & lt;td>98-107</td> </tr> <tr> <td& gt;CO2- Carbon Dioxide</td> <td>25 MEQ/L</td> <td>22-30</td> </tr> <tr> < td>Anion Gap</td> <td>13MEQ/L</td> <td >5-15</td> </tr> <tr> <td>BUN - Blood Urea Nitrogen</td> <td>13.0 MG/DL</td> <td>7-17</td> </tr> <tr> < td>Glomerular Filtration Rate</td> <td>65 </td> <td>NRG</td> </tr> <tr> < td>Glucose</td> <td>91 MG/DL</td> <td>65-110 </td> </tr> <tr> <td>Osmolality, Calculated</td> <td>279 MOSM/KG</td> <td& gt;261-280</td> </tr> <tr> <td>Calcium </td> <td>10.0 MG/DL</td> <td>8.4-10.2 </td> </tr> <tr> <td>Bilirubin, Total</td> <td>0.80 MG/DL</td> <td> 0.20-1.30</td> </tr> <tr> <td> Alkaline Phosphatase</td> <td>91 U/L</td> < td>38-126</td> </tr> <tr> <td> AST - Aspartate Amino Transfer</td> <td>22 U/L</td> <td>14-36</td> </tr> <tr> <td>ALT</td> <td>37 U/L</td> <td >9-52</td> </tr> <tr> <td>TP - Total Protein</td> <td>7.5 G/DL</td> < td>6.3-8.2</td> </tr> <tr> <td&gt ;Albumin Level</td> <td>4.7 G/DL</td> <td >3.5-5.0</td> </tr> <tr> <td> Globulin</td> <td>2.8 G/DL</td> <td> 2.4-3.6</td> </tr> <tr> <td> Albumin/Globulin Ratio</td> <td>1.7 RATIO</td> <td>1.1-2.2</td> </tr> <tr> & lt;td>LICTERUS</td> <td>2 </td> <td>0-7&lt ;/td> </tr> <tr> <td>LHEMOLYSIS</td& gt; <td>15 </td> <td>0-25</td> </tr> <tr> <td>LTURBIDITY</td> <td>20 </td> <td>0-20</td> </tr> <tr> <th colspan="10">L100.0050 - 22:44</th> </tr> <tr> <td>WBC - WHITE BLOOD COUNT</td> <td>13.7 T/MM3</td> & lt;td>4.5-11.0</td> </tr> <tr> < td>RED BLOOD COUNT</td> <td>4.92 M/MM3</td> <td>4.00-5.20</td> </tr> <tr> & lt;td>HGB - HEMOGLOBIN</td> <td>14.1 GM/DL</td> <td>12-16</td> </tr> <tr> < td>HCT - HEMATOCRIT</td> <td>41.6 %</td> <td>36-46</td> </tr> <tr> <td>MEAN CORPUSCULAR VOLUME</td> <td>84.6 UM3</ td> <td>80-100</td> </tr> <tr&gt ; <td>MEAN CORPUSCULAR HGB</td> <td>28.7 UUG </td> <td>26-34</td> </tr> <tr > <td>MEAN CORPUSCULAR HGB CONC(MCHC</td> < td>33.9 GM/DL</td> <td>31-37</td> </tr& gt; <tr> <td>RDW STANDARD DEVIATION</td> <td>40.6 FL</td> <td>36.9-50.2</td> </tr> <tr> <td>PLT - PLATELET COUNT</td& gt; <td>308 T/MM3</td> <td>130-400</td&gt ; </tr> <tr> <td>MEAN PLATELET VOLUME& lt;/td> <td>9.1 UM3</td> <td>9.4-12.4< /td> </tr> <tr> <td>NEUTROPHILS &amp ;#37; (AUTO)</td> <td>60.1 %</td> & lt;td>33-66</td> </tr> <tr> <td& gt;LYMPHOCYTES % (AUTO)</td> <td>24.6 %< /td> <td>23-45</td> </tr> <tr&gt ; <td>MONOCYTES % (AUTO)</td> <td> 7.5 %</td> <td>0-9.0</td> </tr> <tr> <td>EOSINOPHILS % (AUTO)</td> <td>7.0 %</td> <td>0-4</td> </tr> <tr> <td>BASOPHILS % (AUTO) </td> <td>0.4 %</td> <td>0-2& lt;/td> </tr> <tr> <td>IMMATURE GRANULOCYTE % (AUTO)</td> <td>0.4 %</td& gt; <td>0.0-0.5</td> </tr> <tr> <td>NEUTROPHILS # (AUTO)</td> <td>8.2 T/MM3& lt;/td> <td>1.8-7.7</td> </tr> <tr> <td>LYMPHOCYTES #(AUTO)</td> <td>3.4 T/MM3&lt ;/td> <td>1-4.8</td></tr> <tr> <td>MONOCYTES # (AUTO)</td> <td>1.0 T/MM3</td& gt; <td>0-0.8</td> </tr> <tr> <td>EOSINOPHILS # (AUTO)</td> <td>1.0 T/MM3&lt ;/td> <td>0-0.5</td> </tr> <tr&gt ; <td>BASOPHILS # (AUTO)</td> <td>0.1 T/MM3& lt;/td> <td>0-0.2</td> </tr> <tr> <td>IMMATURE GRANULOCYTE # (AUTO)</td> <td> 0.05 T/MM3</td> <td>0.00-0.03</td> </tr&gt ; <tr> <th colspan="10">L200.0020 - 22:44</th> </tr> <tr> <td> FUNGAL CULTURE.</td> <td>1.1 MG/DL</td> < td>0.7-1.2</td> </tr> <tr> <td&gt ;FUNGAL CULTURE, BLOOD.</td> <td>14 RATIO</td> <td>6-26</td> </tr> <tr> < td>NA - Sodium</td> <td>144 MEQ/L</td> & lt;td>134-144</td> </tr> <tr> <td >Potassium</td> <td>4.0 MEQ/L</td> <td >3.6-5</td> </tr> <tr> <td> Chloride</td> <td>105 MEQ/L</td> <td> 98-107</td> </tr> <tr> <td>CO2 - Carbon Dioxide</td> <td>27 MEQ/L</td> <td >22-30</td> </tr> <tr> <td> Anion Gap</td> <td>12 MEQ/L</td> <td>5 -15</td> </tr> <tr> <td>BUN - Blood Urea Nitrogen</td> <td>15.0 MG/DL</td> <td>7-17 </td> </tr> <tr> <td>Glomerular Filtration Rate</td> <td>58 </td> <td> NRG</td> </tr> <tr> <td>Glucose& lt;/td> <td>98 MG/DL</td> <td>65-110</ td> </tr> <tr> <td>Osmolality, Calculated</td> <td>278 MOSM/KG</td> <td& gt;261-280</td> </tr> <tr> <td> Calcium</td> <td>9.1 MG/DL</td> <td> 8.4-10.2</td> </tr> <tr> <td>Bilirubin, Total</td> <td>0.60 MG/DL</td> <td> 0.20-1.30</td> </tr> <tr> <td> Alkaline Phosphatase</td> <td>77 U/L</td> & lt;td>38-126</td> </tr> <tr> <td> AST - Aspartate Amino Transfer</td> <td>18 U/L</td> <td>14-36</td> </tr> <tr> <td>ALT</td> <td>45 U/L</td> <td >9-52</td> </tr> <tr> <td>TP - Total Protein</td> <td>6.9 G/DL</td> < td>6.3-8.2</td> </tr> <tr> <td&gt ;Albumin Level</td> <td>4.2 G/DL</td> <td >3.5-5.0</td> </tr> <tr> <td> Globulin</td> <td>2.7 G/DL</td> <td> 2.4-3.6</td> </tr> <tr> <td>Albumin/ Globulin Ratio</td> <td>1.6 RATIO</td> < td>1.1-2.2</td> </tr> <tr> <td&gt ;LICTERUS</td> <td>< 2.0 </td> <td >0-7</td> </tr> <tr> <td> LHEMOLYSIS</td> <td>< 15.0 </td> < td>0-25</td> </tr> <tr> <td> LTURBIDITY</td> <td>< 20.0 </td> < td>0-20</td> </tr> <tr> <th colspan="10">L200.3855 - 11/08/16 22:44</th> </tr& gt; <tr> <td>TSH w Reflex T4 Free</td> < td>2.24 MIU/L</td> <td>0.47-4.68</td> </ tr><tr> <th colspan="10">L750.0200 - 11/08/16 22:44</th> </tr> <tr> <td>LACTH-A </td> <td>20 pg/mL</td> <td>NRG</td > </tr> <tr> <th colspan="10" >L750.2990 - 11/08/16 22:44</th> </tr> <tr> <td>Cortisol Free, Serum - AMS</td> <td> 0.09 mcg/dL</td> <td>NRG</td> </tr> <tr> <th colspan="10">L100.0050 - 11/11/16 09 :48</th> </tr> <tr> <td>WBC - WHITE BLOOD COUNT</td> <td>13.0 T/MM3</td> & lt;td>4.5-11.0</td> </tr> <tr> < td>RED BLOOD COUNT</td> <td>5.28 M/MM3</td> <td>4.00-5.20</td> </tr> <tr> <td>HGB - HEMOGLOBIN</td> <td>15.1 GM/DL</td&gt ; <td>12-16</td> </tr> <tr> < td>HCT - HEMATOCRIT</td> <td>44.2 %</td> <td>36-46</td> </tr> <tr> <td>MEAN CORPUSCULAR VOLUME</td> <td>83.7 UM3</ td> <td>80-100</td> </tr> <tr&gt ; <td>MEAN CORPUSCULAR HGB</td> <td>28.6 UUG</td& gt; <td>26-34</td> </tr> <tr> <td>MEAN CORPUSCULAR HGB CONC(MCHC</td> <td> 34.2 GM/DL</td> <td>31-37</td> </tr> <tr> <td>RDW STANDARD DEVIATION</td> & lt;td>40.5 FL</td> <td>36.9-50.2</td> </ tr> <tr> <td>PLT - PLATELET COUNT</td> & lt;td>310 T/MM3</td> <td>130-400</td> </ tr> <tr> <td>MEAN PLATELET VOLUME</td> <td>9.5 UM3</td> <td>9.4-12.4</td> </tr> <tr> <td>NEUTROPHILS % (AUTO)& lt;/td> <td>68.7 %</td> <td>33-66 </td> </tr> <tr> <td>LYMPHOCYTES &amp ;#37; (AUTO)</td> <td>19.3 %</td> &lt ;td>23-45</td> </tr> <tr> <td> MONOCYTES % (AUTO)</td> <td>5.8 %</td&gt ; <td>0-9.0</td> </tr> <tr> <td>EOSINOPHILS % (AUTO)</td> <td>5.6 & amp;#37;</td> <td>0-4</td> </tr> & lt;tr> <td>BASOPHILS % (AUTO)</td> < td>0.3 %</td> <td>0-2</td> </tr& gt; <tr> <td>IMMATURE GRANULOCYTE % (AUTO)& lt;/td> <td>0.3 %</td> <td>0.0-0.5& lt;/td> </tr> <tr> <td>NEUTROPHILS # (AUTO)</td> <td>9.0 T/MM3</td> <td> 1.8-7.7</td> </tr> <tr> <td> LYMPHOCYTES # (AUTO)</td> <td>2.5 T/MM3</td> <td>1-4.8</td> </tr> <tr> <td& gt;MONOCYTES # (AUTO)</td> <td>0.8 T/MM3</td> <td>0-0.8</td> </tr> <tr> < td>EOSINOPHILS # (AUTO)</td> <td>0.7 T/MM3</td> <td>0-0.5</td> </tr> <tr> <td>BASOPHILS # (AUTO)</td> <td>0.0 T/MM3</td&gt ; <td>0-0.2</td> </tr> <tr> <td>IMMATURE GRANULOCYTE # (AUTO)</td> <td>0.04 T/MM3</td> <td>0.00-0.03</td> </tr> <tr> <th colspan="10">L200.0020 - 11/11/16 09 :48</th> </tr> <tr> <td> FUNGALCULTURE.</td> <td>1.0 MG/DL</td> < td>0.7-1.2</td> </tr> <tr> <td> FUNGAL CULTURE, BLOOD.</td> <td>15 RATIO</td> <td>6-26</td> </tr> <tr> <td> NA - Sodium</td> <td>143 MEQ/L</td> <td& gt;134-144</td> </tr> <tr> <td> Potassium</td><td>4.4 MEQ/L</td> <td>3.6-5</ td> </tr> <tr> <td>Chloride</td& gt; <td>105 MEQ/L</td> <td>98-107</td&gt ; </tr> <tr> <td>CO2 - Carbon Dioxide& lt;/td> <td>26 MEQ/L</td> <td>22-30</ td> </tr> <tr> <td>Anion Gap</td&gt ; <td>12 MEQ/L</td> <td>5-15</td> < /tr> <tr> <td>BUN - Blood Urea Nitrogen</td&gt ; <td>15.0 MG/DL</td> <td>7-17</td> </tr> <tr> <td>Glomerular Filtration Rate</ td> <td>65 </td> <td>NRG</td> </tr> <tr> <td>Glucose</td> <td& gt;93 MG/DL</td> <td>65-110</td> </tr> <tr> <td>Osmolality,Calculated</td> <td& gt;276 MOSM/KG</td> <td>261-280</td> </tr& gt; <tr> <td>Calcium</td> <td> 9.9 MG/DL</td> <td>8.4-10.2</td> </tr> <tr> <td>Bilirubin,Total</td> <td& gt;0.50 MG/DL</td> <td>0.20-1.30</td> </tr& gt; <tr> <td>Alkaline Phosphatase</td> <td>92 U/L</td> <td>38-126</td> </ tr> <tr> <td>AST - Aspartate Amino Transfer</ td> <td>19 U/L</td> <td>14-36</td> </tr> <tr> <td>ALT</td> <td>39 U/L</td> <td>9-52</td> </tr& gt; <tr> <td>TP - Total Protein</td> < td>7.4 G/DL</td> <td>6.3-8.2</td> </tr& gt; <tr> <td>Albumin Level</td> < td>4.6 G/DL</td> <td>3.5-5.0</td> </tr& gt; <tr> <td>Globulin</td> <td>2.8 G /DL</td><td>2.4-3.6</td> </tr> <tr> <td>Albumin/Globulin Ratio</td> <td>1.6 RATIO</td> <td>1.1-2.2</td> </tr> < tr> <td>LICTERUS</td> <td>< 2.0 & lt;/td> <td>0-7</td> </tr> <tr&gt ; <td>LHEMOLYSIS</td> <td>< 15.0 < /td> <td>0-25</td> </tr> <tr> <td>LTURBIDITY</td> <td>< 20.0 </ td> <td>0-20</td> </tr> <tr> <th colspan="10">L200.2000 - 11/11/16 09:48</th> </tr> <tr> <td>MAG - Magnesium</td> <td>2.1 MG/DL</td> <td>1.6-2.3</td> &lt ;/tr> <tr> <th colspan="10">L200.185 - 11/11/16 09:48</th> </tr> <tr> <td >LDH - Lactate Dehydrogenase</td> <td>349 U/L</td&gt ; <td>313-618</td> </tr> <tr> <th colspan="10">L100.0050 - 11/19/16 11:40</th> </tr> <tr> <td>WBC - WHITE BLOOD COUNT& lt;/td> <td>13.4 T/MM3</td> <td>4.5-11.0& lt;/td> </tr> <tr> <td>RED BLOOD COUNT</td> <td>4.90 M/MM3</td> <td> 4.00-5.20</td> </tr> <tr> <td> HGB - HEMOGLOBIN</td> <td>14.0 GM/DL</td> <td> 12-16</td> </tr> <tr> <td>HCT - HEMATOCRIT</td> <td>41.6 %</td> < td>36-46</td> </tr> <tr> <td> MEAN CORPUSCULAR VOLUME</td> <td>84.9 UM3</td> <td>80-100</td> </tr> <tr> <td> MEAN CORPUSCULAR HGB</td> <td>28.6 UUG</td> <td>26-34</td> </tr> <tr> <td& gt;MEAN CORPUSCULAR HGB CONC(MCHC</td> <td>33.7 GM/DL</ td> <td>31-37</td> </tr> <tr> <td>RDW STANDARD DEVIATION</td> <td>40.9 FL </td> <td>36.9-50.2</td> </tr> & lt;tr> <td>PLT - PLATELET COUNT</td> <td>301 T/ MM3</td> <td>130-400</td> </tr> & lt;tr> <td>MEAN PLATELET VOLUME</td> <td> 9.2 UM3</td> <td>9.4-12.4</td> </tr> <tr> <td>NEUTROPHILS % (AUTO)</td> <td>68.1 %</td> <td>33-66</td> </tr> <tr> <td>LYMPHOCYTES % (AUTO)& lt;/td> <td>18.8 %</td> <td>23-45& lt;/td> </tr> <tr> <td>MONOCYTES & amp;#37; (AUTO)</td> <td>5.9 %</td> <td>0-9.0</td> </tr> <tr> <td& gt;EOSINOPHILS % (AUTO)</td> <td>6.6 %</ td> <td>0-4</td> </tr> <tr> <td>BASOPHILS % (AUTO)</td> <td>0.2 & amp;#37;</td> <td>0-2</td> </tr> <tr> <td>IMMATURE GRANULOCYTE % (AUTO)</td> <td>0.4 %</td> <td>0.0-0.5</td> </tr> <tr> <td>NEUTROPHILS # (AUTO)< /td> <td>9.1 T/MM3</td> <td>1.8-7.7</ td> </tr> <tr> <td>LYMPHOCYTES # ( AUTO)</td> <td>2.5 T/MM3</td> <td>1- 4.8</td> </tr> <tr> <td>MONOCYTES # (AUTO)</td> <td>0.8 T/MM3</td> <td>0 -0.8</td> </tr> <tr> <td> EOSINOPHILS # (AUTO)</td> <td>0.9 T/MM3</td> <td>0-0.5</td> </tr> <tr> < td>BASOPHILS # (AUTO)</td> <td>0.0 T/MM3</td> <td>0-0.2</td> </tr> <tr> & lt;td>IMMATURE GRANULOCYTE # (AUTO)</td> <td>0.06 T/MM3& lt;/td> <td>0.00-0.03</td> </tr> &lt ;tr> <th colspan="10">L200.0020 - 11/19/16 11:40< /th> </tr> <tr> <td>FUNGALCULTURE.& lt;/td> <td>1.0 MG/DL</td> <td>0.7-1.2&lt ;/td> </tr> <tr> <td>FUNGAL CULTURE, BLOOD.</td> <td>14 RATIO</td> <td>6-26 </td> </tr> <tr> <td>NA - Sodium</ td> <td>144 MEQ/L</td> <td>134-144</td > </tr> <tr> <td>Potassium</td&gt ;<td>4.0 MEQ/L</td> <td>3.6-5</td> </ tr> <tr> <td>Chloride</td> <td& gt;105 MEQ/L</td> <td>98-107</td> </tr> <tr> <td>CO2 - Carbon Dioxide</td> & lt;td>25 MEQ/L</td> <td>22-30</td> </tr& gt; <tr> <td>Anion Gap</td> <td> 14 MEQ/L</td> <td>5-15</td> </tr> <tr > <td>BUN - Blood Urea Nitrogen</td> <td> 14.0 MG/DL</td> <td>7-17</td> </tr> & lt;tr> <td>Glomerular Filtration Rate</td> < td>65 </td> <td>NRG</td> </tr> <tr> <td>Glucose</td> <td>120 MG/DL</td& gt; <td>65-110</td> </tr> <tr> <td>Osmolality,Calculated</td> <td>279 MOSM/KG</ td> <td>261-280</td> </tr><tr> <td>Calcium</td> <td>9.8 MG/DL</td> <td>8.4-10.2</td> </tr> <tr> & lt;td>Bilirubin,Total</td> <td>0.50 MG/DL</td> <td>0.20-1.30</td> </tr> <tr> <td>Alkaline Phosphatase</td> <td>80 U/L</td& gt; <td>38-126</td> </tr> <tr> <td>AST - Aspartate Amino Transfer</td> <td> 23 U/L</td> <td>14-36</td> </tr> <tr> <td>ALT</td> <td>45 U/L</td&gt ; <td>9-52</td> </tr> <tr> & lt;td>TP - Total Protein</td> <td>6.8 G/DL</td> <td>6.3-8.2</td> </tr> <tr> <td>Albumin Level</td> <td>4.2 G/DL</td> <td>3.5-5.0</td> </tr> <tr> & lt;td>Globulin</td> <td>2.6 G/DL</td> <td> 2.4-3.6</td> </tr> <tr> <td> Albumin/Globulin Ratio</td> <td>1.6 RATIO</td> <td>1.1-2.2</td> </tr> <tr> <td >LICTERUS</td> <td>< 2 </td> < td>0-7</td> </tr> <tr> <td> LHEMOLYSIS</td> <td>< 15 </td> <td >0-25</td> </tr> <tr> <td> LTURBIDITY</td> <td>< 20 </td> <td >0-20</td> </tr> <tr> <th colspan="10 ">L200.3850 - 11/19/16 11:40</th> </tr> <tr > <td>TSH - Thyroid Stim Hormone</td> <td&gt ;1.70 MIU/L</td> <td>0.47-4.68</td> </tr&gt ; <tr> <th colspan="10">L100.0050 - 20:45</th> </tr> <tr> <td>WBC - WHITE BLOOD COUNT</td> <td>13.4 T/MM3</td><td> 4.5-11.0</td> </tr> <tr> <td>RED BLOOD COUNT</td> <td>4.94 M/MM3</td> <td& gt;4.00-5.20</td> </tr> <tr> <td> HGB - HEMOGLOBIN</td> <td>14.1 GM/DL</td> & lt;td>12-16</td> </tr> <tr> <td& gt;HCT - HEMATOCRIT</td> <td>41.8 %</td> <td>36-46</td> </tr> <tr> & lt;td>MEAN CORPUSCULAR VOLUME</td> <td>84.6 UM3</td& gt; <td>80-100</td> </tr> <tr> <td>MEAN CORPUSCULAR HGB</td> <td>28.5 UUG</ td> <td>26-34</td> </tr> <tr> <td>MEAN CORPUSCULAR HGB CONC(MCHC</td> <td&gt ;33.7 GM/DL</td> <td>31-37</td> </tr> <tr> <td>RDW STANDARD DEVIATION</td> & lt;td>39.9 FL</td> <td>36.9-50.2</td> </ tr> <tr> <td>PLT - PLATELET COUNT</td> <td>329 T/MM3</td> <td>130-400</td> </tr> <tr> <td>MEAN PLATELET VOLUME</td& gt; <td>9.2 UM3</td> <td>9.4-12.4</td&gt ; </tr> <tr> <td>NEUTROPHILS % (AUTO)</td> <td>64.6 %</td> <td& gt;33-66</td> </tr> <tr> <td> LYMPHOCYTES % (AUTO)</td> <td>23.4 %</td > <td>23-45</td> </tr> <tr> <td>MONOCYTES % (AUTO)</td> <td>6.6 &# 37;</td> <td>0-9.0</td> </tr> <tr& gt; <td>EOSINOPHILS % (AUTO)</td> <td& gt;4.6 %</td> <td>0-4</td> </tr&gt ; <tr> <td>BASOPHILS % (AUTO)</td> <td>0.4 %</td> <td>0-2</td> & lt;/tr><tr> <td>IMMATURE GRANULOCYTE % (AUTO)&lt ;/td> <td>0.4 %</td> <td>0.0-0.5& lt;/td> </tr> <tr> <td>NEUTROPHILS # ( AUTO)</td> <td>8.6 T/MM3</td> <td>1.8- 7.7</td> </tr> <tr> <td> LYMPHOCYTES # (AUTO)</td> <td>3.1 T/MM3</td> <td>1-4.8</td> </tr> <tr> < td>MONOCYTES # (AUTO)</td> <td>0.9 T/MM3</td> <td>0-0.8</td> </tr> <tr> & lt;td>EOSINOPHILS # (AUTO)</td> <td>0.6 T/MM3</td&gt ; <td>0-0.5</td> </tr> <tr> <td>BASOPHILS # (AUTO)</td> <td>0.1 T/MM3</td> <td>0-0.2</td> </tr> <tr> <td>IMMATURE GRANULOCYTE # (AUTO)</td> <td>0.05 T/ MM3</td> <td>0.00-0.03</td> </tr> <tr> <th colspan="10">L200.0020 - 12/01/16 20: 45</th> </tr> <tr> <td>FUNGAL CULTURE.</td> <td>1.0 MG/DL</td> <td> 0.7-1.2</td> </tr> <tr> <td> FUNGAL CULTURE, BLOOD.</td> <td>15 RATIO</td> <td>6-26</td> </tr> <tr> < td>NA - Sodium</td> <td>140 MEQ/L</td> & lt;td>134-144</td> </tr> <tr> <td >Potassium</td> <td>4.1 MEQ/L</td> <td >3.6-5</td> </tr> <tr> <td> Chloride</td> <td>106 MEQ/L</td> <td> 98-107</td> </tr> <tr> <td>CO2 - Carbon Dioxide</td> <td>25 MEQ/L</td> <td >22-30</td> </tr> <tr> <td> Anion Gap</td> <td>9MEQ/L</td> <td>5- 15</td> </tr> <tr> <td>BUN - Blood Urea Nitrogen</td> <td>15.0 MG/DL</td> <td>7-17</td> </tr> <tr> <td >Glomerular Filtration Rate</td> <td>65 </td> <td>NRG</td> </tr> <tr> <td >Glucose</td> <td>108 MG/DL</td> <td>65-110 </td> </tr> <tr> <td>Osmolality, Calculated</td> <td>271 MOSM/KG</td> <td& gt;261-280</td> </tr> <tr> <td> Calcium</td> <td>9.2 MG/DL</td> <td> 8.4-10.2</td> </tr> <tr> <td> Bilirubin,Total</td> <td>0.50 MG/DL</td> &lt ;td>0.20-1.30</td> </tr> <tr> <td >Alkaline Phosphatase</td> <td>91 U/L</td> <td>38-126</td> </tr> <tr> <td >AST - Aspartate Amino Transfer</td> <td>18 U/L</td& gt; <td>14-36</td> </tr> <tr> <td>ALT</td> <td>40 U/L</td> & lt;td>9-52</td> </tr> <tr> <td&gt ;TP - Total Protein</td> <td>6.8 G/DL</td> & lt;td>6.3-8.2</td> </tr> <tr> <td >Albumin Level</td> <td>4.3 G/DL</td> &lt ;td>3.5-5.0</td> </tr> <tr> <td& gt;Globulin</td> <td>2.5 G/DL</td> <td&gt ;2.4-3.6</td> </tr> <tr> <td> Albumin/Globulin Ratio</td> <td>1.7 RATIO</td> <td>1.1-2.2</td> </tr> <tr> & lt;td>LICTERUS</td> <td>< 2 </td> <td& gt;0-7</td> </tr> <tr> <td> LHEMOLYSIS</td> <td>< 15 </td> <td >0-25</td> </tr> <tr> <td> LTURBIDITY</td> <td>< 20 </td> <td >0-20</td> </tr> <tr> <th colspan=& quot;10">L600.0100 - 12/01/16 21:22</th> </tr> <tr > <td>POTASSIUM</td> <td>Urine, Clean Catch </td> <td>NRG</td> </tr> & lt;tr> <td>CHLORIDE</td> <td>YELLOW </ td> <td>YELLOW</td> </tr> <tr&gt ; <td>ANION GAP</td> <td>CLEAR </td> <td>NRG</td> </tr> <tr> <td>BLOOD UREA NITROGEN</td> <td>6.0 </td> <td>5.0-8.0</td> </tr> <tr> <td>BUN/CREATININE RATIO</td> <td>NEGATIVE </td> <td>NEGATIVE</td> </tr> <tr> <td>GLUCOSE</td> <td>NEGATIVE </td> <td>NEGATIVE</td> </tr> <tr> <td>CALCIUM</td> <td>NEGATIVE </td> &lt ;td>NEGATIVE</td> </tr> <tr> <td> BILIRUBIN, CONJUG &amp; UNCONJUG</td> <td>NEGATIVE </td> <td>NEGATIVE</td> </tr> &lt ;tr> <td>Specific [place],Urine</td> <td> 1.015 </td> <td>1.015-1.025</td> </tr> <tr> <td>Leukocyte Esterase,Urine</td> <td>NEGATIVE </td> <td>NEGATIVE</td> & lt;/tr> <tr> <td>Nitrate,Urine</td> <td>NEGATIVE </td> <td>NEGATIVE</td> </tr> <tr> <td>Urobilinogen,Urine</td> <td>0.2 EU/DL</td> <td>NORMAL</td> & lt;/tr> <tr> <td>Occult Blood,Urine - Dipstick&lt ;/td> <td>TRACE-INTACT </td> <td>NEGATIVE </td> </tr> <tr> <td>Urine Microscopic (UA)</td> <td>Microscopic Not Ind. </td> <td>NRG</td> </tr> <tr> <th colspan="10">CBC W/DIFF - 07/08/16 00:30</th> </tr> <tr> <td>EOSINOPHIL #</td> <td>0.6 k/cumm</td> <td>0.1-0.5</td> </tr> <tr> <td>EOSINOPHIL %</td& gt; <td>5 %</td> <td>2-4</td> </tr> <tr> <td>GRANULOCYTE #</td&gt ; <td>7.5 k/cumm</td> <td>2.0-9.0</td&gt ; </tr> <tr> <td>GRANULOCYTE %& lt;/td> <td>61 %</td> <td>50-75</ td> </tr> <tr> <td>LYMPHOCYTE#</ td> <td>3.3 k/cumm</td> <td>1.0-4.0</ td> </tr> <tr> <td>LYMPHOCYTE &# 37;</td> <td>26%</td> <td>20- 30</td> </tr> <tr> <td>MEAN CELL HGB</ td> <td>28.3 pg</td> <td>27.0-33.0</td > </tr> <tr> <td>MEAN CELL HGB CONCENTRATION</td> <td>33.2 g/dL</td> <td >32.0-37.0</td> </tr> <tr> <td&gt ;MEAN CELL VOLUME</td> <td>85.1 fl</td> < td>80.0-100.0</td> </tr> <tr> <td >MONOCYTE #</td> <td>0.9 k/cumm</td> < td>0.1-1.0</td> </tr> <tr> <td&gt ;MONOCYTE %</td> <td>7 %</td> <td>4-6</td> </tr> <tr> <td >RED BLOOD CELL</td> <td>4.56 m/cumm</td> <td>4.00-6.00</td> </tr> <tr> & lt;td>RED CELL DISTRIBUTION WIDTH</td> <td>13.0 &#37 ;</td> <td>11.0-15.6</td> </tr> & lt;tr> <td>WHITE BLOOD CELL</td> <td> 12.4 k/cumm</td> <td>5.0-10.0</td> </tr&gt ; <tr> <td>HEMOGLOBIN</td> <td> 12.9 gm/dL</td> <td>12.0-16.0</td> </tr&gt ; <tr> <td>HEMATOCRIT</td> <td> 38.8 %</td> <td>37.0-47.0</td> </tr > <tr> <td>PLATELET COUNT</td> &lt ;td>313 k/cumm</td> <td>150-400</td> </ tr> <tr> <th colspan="10">LACTIC ACID - 12/02/16 00:30</th> </tr> <tr> <td >LACTIC ACID</td> <td>1.2 mmol/L</td> &lt ;td>0.5-2.0</td> </tr> <tr> <th colspan="10">METABOLIC PANEL, COMPREHN - 12/02/16 00:30</th> </tr> <tr> <td>POTASSIUM</td> <td>3.6 mmol/L</td> <td>3.5-5.3</td> </tr> <tr> <td>EST GFR (MDRD)</td&gt ; <td>58 mL/min</td> <td>> 59</td& gt; </tr> <tr> <td>ANION GAP</td&gt ; <td>7 mmol/L</td> <td>5-15</td> </tr> <tr> <td>EST CrCl (CG)</td> <td>> 60 mL/min</td> <td>> 59< /td> </tr> <tr> <td>GLUCOSE</td& gt; <td>130 mg/dL</td> <td>70-99</td> </tr> <tr> <td>CALCIUM</td> <td>7.6 mg/dL</td> <td>8.5-10.1</td> </tr> <tr> <td>BLOOD UREA NITROGEN</td& gt; <td>13 mg/dL</td> <td>7-20</td> </tr> <tr> <td>CREATININE</td> <td>1.1 mg/dL</td> <td>0.6-1.0</td> </tr> <tr> <td>SODIUM</td> <td>142 mmol/L</td> <td>135-148</td> &lt ;/tr> <tr> <td>CHLORIDE</td> <td> 107 mmol/L</td> <td>98-110</td> </tr> <tr> <td>AST/SGOT</td> <td>14 Units/L</td> <td>10-37</td> </tr> <tr> <td>ALT/SGPT</td> <td>29 Units/L&lt ;/td> <td>< 66</td> </tr> &lt ;tr> <td>CARBON DIOXIDE</td> <td>28 mmol/L& lt;/td> <td>21-32</td> </tr><tr> <td>TOTAL PROTEIN</td> <td>6.4 gm/dL</td&gt ; <td>6.4-8.2</td> </tr> <tr> & lt;td>ALBUMIN</td> <td>3.2 gm/dL</td> &lt ;td>3.4-5.0</td> </tr> <tr> <td& gt;BILI TOTAL</td> <td>0.3 mg/dL</td> <td& gt;0.0-1.0</td> </tr> <tr> <td> ALKALINE PHOSPHATASE TOTAL</td> <td>83 IU/L</td> <td>45-117</td> </tr> <tr> <th colspan="10">THYROID STIM HORMONE (TSH) - 12/02/16 00:30< /th> </tr> <tr> <td>THYROID STIM HORMONE (TSH)</td> <td>0.69 uIU/mL</td> < td>0.34-4.82</td> </tr> <tr> <th colspan="10">C REACTIVE PROTEIN - 12/02/16 00:30</th> </tr> <tr> <td>C REACTIVE PROTEIN</td> <td>6.3 mg/L</td> <td>< 8.0</td&gt ; </tr> <tr> <th colspan="10"&gt ;CBC W/DIFF - 12/02/16 00:30</th> </tr> <tr> <td>EOSINOPHIL #</td> <td>0.6 k/cumm</td> <td>0.1-0.5</td> </tr> <tr> <td>EOSINOPHIL %</td> <td>5 %</td& gt; <td>2-4</td> </tr> <tr> <td>GRANULOCYTE #</td> <td>7.5 k/cumm</td&gt ; <td>2.0-9.0</td> </tr> <tr> <td>GRANULOCYTE %</td> <td>61 %& lt;/td> <td>50-75</td> </tr> <tr& gt; <td>LYMPHOCYTE #</td> <td>3.3 k/cumm< /td> <td>1.0-4.0</td> </tr> <tr& gt; <td>LYMPHOCYTE %</td> <td>26 & amp;#37;</td> <td>20-30</td> </tr> <tr> <td>MEAN CELL HGB</td> <td> 28.3 pg</td> <td>27.0-33.0</td> </tr> <tr> <td>MEAN CELL HGB CONCENTRATION</td> <td>33.2 g/dL</td> <td>32.0-37.0</td> </tr> <tr> <td>MEAN CELL VOLUME</td&gt ; <td>85.1 fl</td> <td>80.0-100.0</td&gt ; </tr> <tr> <td>MONOCYTE #</td> <td>0.9 k/cumm</td> <td>0.1-1.0</td> </tr> <tr> <td>MONOCYTE %</td> <td>7 %</td> <td>4-6</td> &lt ;/tr> <tr> <td>RED BLOOD CELL</td> <td>4.56m/cumm</td> <td>4.00-6.00</td> </tr> <tr> <td>RED CELL DISTRIBUTION WIDTH</td& gt; <td>13.0 %</td> <td>11.0-15.6</td& gt; </tr> <tr> <td>WHITE BLOOD CELL< /td> <td>12.4 k/cumm</td> <td>5.0-10.0&lt ;/td> </tr> <tr> <td>HEMOGLOBIN</td > <td>12.9gm/dL</td> <td>12.0-16.0</td > </tr> <tr> <td>HEMATOCRIT</td> <td>38.8 %</td> <td>37.0-47.0</td&gt ; </tr> <tr> <td>PLATELET COUNT</td& gt; <td>313 k/cumm</td> <td>150-400</td&gt ; </tr> <tr> <th colspan="10"> LACTIC ACID - 12/02/16 00:30</th> </tr> <tr> <td>LACTIC ACID</td> <td>1.2 mmol/L</td> <td>0.5-2.0</td> </tr> <tr> & lt;th colspan="10">METABOLIC PANEL, COMPREHN - 12/02/16 00:30</ th> </tr> <tr> <td>POTASSIUM</td& gt; <td>3.6 mmol/L</td> <td>3.5-5.3</td&gt ; </tr> <tr> <td>EST GFR (MDRD)</td& gt; <td>58 mL/min</td> <td>> 59</ td> </tr> <tr> <td>ANION GAP</td& gt; <td>7 mmol/L</td> <td>5-15</td> </tr> <tr> <td>EST CrCl (CG)</td> <td>> 60 mL/min</td> <td>> 59 </td> </tr> <tr> <td>GLUCOSE</ td> <td>130 mg/dL</td> <td>70-99</td> </tr> <tr> <td>CALCIUM</td> <td>7.6 mg/dL</td> <td>8.5-10.1</td> & lt;/tr> <tr> <td>BLOOD UREA NITROGEN</td> <td>13 mg/dL</td> <td>7-20</td> </tr> <tr> <td>CREATININE</td> <td>1.1 mg/dL</td> <td>0.6-1.0</td> </ tr> <tr> <td>SODIUM</td> <td&gt ;142 mmol/L</td> <td>135-148</td> </tr> <tr> <td>CHLORIDE</td> <td> 107 mmol/L</td> <td>98-110</td> </tr> <tr> <td>AST/SGOT</td> <td>14 Units/L</td> <td>10-37</td> </tr> <tr> <td>ALT/SGPT</td> <td>29 Units/ L</td> <td>< 66</td> </tr> <tr> <td>CARBON DIOXIDE</td> <td>28 mmol/L</td> <td>21-32</td> </tr> <tr> <td>TOTAL PROTEIN</td> <td>6.4 gm /dL</td> <td>6.4-8.2</td> </tr> & lt;tr> <td>ALBUMIN</td> <td>3.2 gm/dL</ td> <td>3.4-5.0</td> </tr> <tr&gt ; <td>BILI TOTAL</td><td>0.3 mg/dL</td> <td>0.0-1.0</td> </tr> <tr> & lt;td>ALKALINE PHOSPHATASE TOTAL</td> <td>83 IU/L</td > <td>45-117</td> </tr> <tr> <th colspan="10">THYROID STIM HORMONE (TSH) - 12/02/16 00 :30</th> </tr> <tr> <td>THYROID STIM HORMONE (TSH)</td> <td>0.69 uIU/mL</td> <td>0.34-4.82</td> </tr> <tr> & lt;th colspan="10">C REACTIVE PROTEIN - 12/02/16 00:30</th> </tr> <tr> <td>C REACTIVE PROTEIN</ td> <td>6.3 mg/L</td><td>< 8.0</td> </tr> <tr> <th colspan="10"> BLOOD CULTURE - 12/02/16 00:50</th> </tr> <tr> <td>Microbiology</td> <td> </td> <td /> </tr> <tr> <th colspan=& quot;10">BLOOD CULTURE - 12/02/16 00:50</th> </tr> <tr> <td>Microbiology</td> <td> </td> <td /> </tr> <tr> <th colspan="10">BLOOD CULTURE - 12/02/16 01:32</th> </tr> <tr> <td>Microbiology</td> & lt;td> </td> <td /> </tr> <tr&gt ; <th colspan="10">BLOOD CULTURE - 12/02/16 01:32</ th> </tr> <tr> <td>Microbiology</ td> <td> </td> <td /> </tr> <tr> <th colspan="10">URINALYSIS, ROUTINE - 12/02/16 05:17</th> </tr> <tr> <td>UA LEUKOCYTE ESTERASE DIPSTICK</td> <td> NEGATIVE </td> <td>NEGATIVE</td> </tr> <tr> <td>UA NITRITE DIPSTICK</td> &lt ;td>NEGATIVE </td> <td>NEGATIVE</td> </ tr> <tr> <td>UA PROTEIN DIPSTICK</td> & lt;td>NEGATIVE </td> <td>NEGATIVE</td> < /tr> <tr> <td>UA GLUCOSE DIPSTICK</td> <td>NEGATIVE </td> <td>NEGATIVE</td> </tr> <tr> <td>UA KETONE DIPSTICK</td&gt ; <td>NEGATIVE </td> <td>NEGATIVE</td&gt ; </tr> <tr> <td>UA UROBILINOGEN DIPSTICK</td> <td>NORMAL </td> <td>NORMAL</ td> </tr> <tr> <td>UA BILIRUBIN DIPSTICK</td> <td>NEGATIVE </td> <td>NEGATIVE </td> </tr> <tr> <td>UA BLOOD DIPSTICK</td> <td>NEGATIVE </td> <td> NEGATIVE</td> </tr> <tr> <td>UA SPECIFIC GRAVITY</td> <td>1.014 </td> <td >1.015-1.025</td> </tr> <tr> <td> UR PH</td> <td>7.0 </td> <td>5.0-7.0& lt;/td> </tr> <tr> <th colspan="10 ">URINALYSIS, ROUTINE - 12/02/16 05:17</th> </tr> <tr> <td>UA LEUKOCYTE ESTERASE DIPSTICK</td> <td>NEGATIVE </td> <td>NEGATIVE</td> </tr> <tr> <td>UA NITRITE DIPSTICK</td ><td>NEGATIVE </td> <td>NEGATIVE</td> </tr> <tr> <td>UA PROTEIN DIPSTICK</td&gt ; <td>NEGATIVE </td> <td>NEGATIVE</td> </tr> <tr> <td>UA GLUCOSEDIPSTICK</td&gt ; <td>NEGATIVE </td> <td>NEGATIVE</td&gt ; </tr> <tr> <td>UA KETONE DIPSTICK</td > <td>NEGATIVE </td> <td>NEGATIVE</td& gt; </tr> <tr> <td>UA UROBILINOGEN DIPSTICK</td> <td>NORMAL </td> <td> NORMAL</td> </tr> <tr> <td>UA BILIRUBIN DIPSTICK</td> <td>NEGATIVE </td> & lt;td>NEGATIVE</td></tr> <tr> <td>UA BLOOD DIPSTICK</td> <td>NEGATIVE </td> < td>NEGATIVE</td> </tr> <tr> <td>UA SPECIFIC GRAVITY</td> <td>1.014 </td> <td >1.015-1.025</td> </tr> <tr> <td& gt;UR PH</td> <td>7.0 </td> <td>5.0-7.0</td& gt; </tr> <tr> <th colspan="10"& gt;GRAM STAIN - 12/02/16 15:20</th> </tr> <tr> <td>Microbiology</td> <td> </td> < td /> </tr> <tr> <th colspan="10& quot;>CSF CELL CT/DIFF - 12/02/16 15:20</th> </tr> <tr> <td>CSF APPEARANCE</td> <td> CLEAR </td> <td>CLEAR</td> </tr> <tr> <td>CSF COLOR</td> <td>COLORLESS </td> <td>COLORLESS</td> </tr> & lt;tr> <td>CSF RBC</td> <td>4 #/cumm</ td> <td>0-5</td></tr> <tr> & lt;td>CSF TUBE #</td> <td>#3 </td> < td /> </tr> <tr> <td>CSF VOLUME</ td> <td>10.0 mL</td> <td /> </ tr> <tr> <td>CSF WBC</td> <td> 3 #/cumm</td> <td>0-5</td> </tr> <tr> <th colspan="10">CSF TOTAL PROTEIN - 15:20</th> </tr> <tr> <td>CSF TOTAL PROTEIN</td> <td>33 mg/dL</td> <td& gt;15-45</td> </tr> <tr> <td>CSF COLOR-CENTRIFUGED</td> <td>COLORLESS </td> & lt;td>COLORLESS</td> </tr> <tr> <th colspan="10">CSF GLUCOSE - 12/02/16 15:20</th> </tr > <tr> <td>CSF GLUCOSE</td> <td> 63 mg/dL</td> <td>40-70</td> </tr> < tr> <th colspan="10">GRAM STAIN - 12/02/16 15:20< /th> </tr> <tr> <td>Microbiology< /td> <td> </td> <td /> </tr&gt ; <tr> <th colspan="10">CSF CELL CT/DIFF - 15:20</th> </tr> <tr> <td> CSF APPEARANCE</td> <td>CLEAR </td> <td& gt;CLEAR</td> </tr> <tr> <td>CSF COLOR< /td> <td>COLORLESS </td> <td>COLORLESS&lt ;/td> </tr> <tr> <td>CSF RBC</td& gt; <td>4 #/cumm</td> <td>0-5</td> </tr> <tr> <td>CSF TUBE #</td> & lt;td>#3 </td> <td /> </tr> <tr& gt; <td>CSF VOLUME</td> <td>10.0 mL</td& gt; <td /> </tr> <tr> <td& gt;CSF WBC</td> <td>3 #/cumm</td> <td> 0-5</td> </tr><tr> <th colspan="10& quot;>CSF TOTAL PROTEIN - 12/02/16 15:20</th> </tr> & lt;tr> <td>CSF TOTAL PROTEIN</td> <td>33 mg/dL</td> <td>15-45</td> </tr> & lt;tr> <td>CSF COLOR-CENTRIFUGED</td> <td> COLORLESS </td> <td>COLORLESS</td> </tr&gt ; <tr> <th colspan="10">CSF GLUCOSE - 08/16 15:20</th> </tr> <tr> <td> CSF GLUCOSE</td> <td>63 mg/dL</td> <td&gt ;40-70</td> </tr> <tr> <th colspan=" 10">FLUID CYTOLOGY - 12/03/16 15:20</th> </tr> <tr> <td>FLUID CYTOLOGY</td> <td> SPECIMEN RECEIVED </td> <td /> </tr> & lt;tr> <th colspan="10">FLUID CYTOLOGY - 12/03/16 15 :20</th> </tr> <tr> <td>FLUID CYTOLOGY</td> <td>SPECIMEN RECEIVED </td> & lt;td /> </tr> <tr> <th colspan=" 10">CBC W/DIFF - 12/04/16 05:50</th> </tr> &lt ;tr> <td>EOSINOPHIL #</td> <td>0.6 k/cumm</td& gt; <td>0.1-0.5</td> </tr> <tr> <td>EOSINOPHIL %</td> <td>5 &#37 ;</td> <td>2-4</td> </tr> <tr> <td>GRANULOCYTE #</td> <td>8.7 k/cumm</td& gt; <td>2.0-9.0</td> </tr> <tr> <td>GRANULOCYTE %</td> <td>67 %& lt;/td> <td>50-75</td> </tr> <tr& gt; <td>LYMPHOCYTE #</td> <td>2.7 k/cumm< /td> <td>1.0-4.0</td> </tr> <tr& gt; <td>LYMPHOCYTE %</td> <td>20 % </td> <td>20-30</td> </tr> <tr > <td>MEAN CELL HGB</td> <td>28.2 pg</ td> <td>27.0-33.0</td> </tr> <tr& gt; <td>MEAN CELL HGB CONCENTRATION</td> <td&gt ;32.8 g/dL</td> <td>32.0-37.0</td> </tr&gt ; <tr><td>MEAN CELL VOLUME</td> <td> 86.0 fl</td> <td>80.0-100.0</td> </tr> <tr> <td>MONOCYTE #</td> <td>1.0 k/cumm </td> <td>0.1-1.0</td> </tr> < tr> <td>MONOCYTE %</td> <td>8 & amp;#37;</td> <td>4-6</td> </tr> &lt ;tr> <td>RED BLOOD CELL</td> <td>4.72 m/ cumm</td> <td>4.00-6.00</td> </tr> < tr> <td>RED CELL DISTRIBUTION WIDTH</td> <td >13.2 %</td> <td>11.0-15.6</td> &lt ;/tr> <tr> <td>WHITE BLOOD CELL</td> <td>13.1 k/cumm</td> <td>5.0-10.0</td> & lt;/tr> <tr> <td>HEMOGLOBIN</td> & lt;td>13.3 gm/dL</td> <td>12.0-16.0</td></tr&gt ; <tr> <td>HEMATOCRIT</td> <td> 40.6 %</td> <td>37.0-47.0</td> </tr > <tr><td>PLATELET COUNT</td> <td> 314 k/cumm</td> <td>150-400</td> </tr> <tr> <th colspan="10">RENAL FUNCTION PANEL - 12/04/16 05:50</th> </tr> <tr> <td>POTASSIUM</td> <td>3.8 mmol/L</td> <td>3.5-5.3</td> </tr> <tr> <td&gt ;EST GFR (MDRD)</td> <td>58 mL/min</td> < td>> 59</td> </tr> <tr> <td> ANION GAP</td> <td>9 mmol/L</td> <td>5 -15</td> </tr> <tr> <td>EST CrCl (CG)</td> <td>> 60 mL/min</td> <td >> 59</td> </tr> <tr> <td> GLUCOSE</td> <td>106 mg/dL</td><td>70-99</td > </tr> <tr> <td>CALCIUM</td> <td>8.6 mg/dL</td> <td>8.5-10.1</td> </tr> <tr> <td>BLOOD UREA NITROGEN</td > <td>16 mg/dL</td> <td>7-20</td> </tr> <tr> <td>CREATININE</td> <td>1.1 mg/dL</td> <td>0.6-1.0</td>< /tr> <tr> <td>SODIUM</td> <td& gt;138 mmol/L</td> <td>135-148</td> </tr&gt ; <tr> <td>CHLORIDE</td> <td> 109 mmol/L</td> <td>98-110</td> </tr> <tr> <td>CARBON DIOXIDE</td> <td> 20mmol/L</td> <td>21-32</td> </tr> <tr> <td>ALBUMIN</td> <td>3.3 gm/dL </td> <td>3.4-5.0</td> </tr> < tr> <td>PHOSPHORUS</td> <td>4.8 mg/dL< /td> <td>2.5-4.9</td> </tr> <tr& gt; <th colspan="10">MAGNESIUM - 12/04/16 05:50</th> </tr> <tr> <td>MAGNESIUM</td> & lt;td>2.2 mg/dL</td><td>1.8-2.4</td> </tr> <tr> <th colspan="10">CBC W/DIFF - 12/04/16 05:50</th> </tr> <tr> <td> EOSINOPHIL #</td> <td>0.6 k/cumm</td> <td >0.1-0.5</td> </tr> <tr> <td> EOSINOPHIL %</td> <td>5 %</td> <td>2-4</td> </tr> <tr> < td>GRANULOCYTE #</td> <td>8.7 k/cumm</td> <td>2.0-9.0</td> </tr> <tr> &lt ;td>GRANULOCYTE %</td> <td>67 %</td& gt; <td>50-75</td> </tr> <tr> <td>LYMPHOCYTE #</td> <td>2.7 k/cumm</td&gt ; <td>1.0-4.0</td> </tr> <tr> <td>LYMPHOCYTE %</td> <td>20 % </td> <td>20-30</td> </tr> <tr > <td>MEAN CELL HGB</td> <td>28.2 pg</td> <td>27.0-33.0</td> </tr> <tr> <td>MEAN CELL HGB CONCENTRATION</td> <td>32.8 g/dL</td> <td>32.0-37.0</td> </tr> <tr> <td>MEAN CELL VOLUME</td> <td> 86.0 fl</td> <td>80.0-100.0</td> </tr> <tr> <td>MONOCYTE #</td> <td> 1.0 k/cumm</td> <td>0.1-1.0</td> </tr> <tr> <td>MONOCYTE %</td> <td& gt;8 %</td> <td>4-6</td> </tr> <tr> <td>RED BLOOD CELL</td> <td& gt;4.72 m/cumm</td> <td>4.00-6.00</td> </tr > <tr> <td>RED CELL DISTRIBUTION WIDTH</td&gt ; <td>13.2 %</td> <td>11.0-15.6</ td> </tr> <tr> <td>WHITE BLOOD CELL< /td> <td>13.1 k/cumm</td> <td>5.0-10.0&lt ;/td> </tr> <tr> <td>HEMOGLOBIN</ td> <td>13.3 gm/dL</td> <td>12.0-16.0< /td> </tr> <tr> <td>HEMATOCRIT</ td> <td>40.6 %</td> <td>37.0-47.0 </td> </tr> <tr> <td>PLATELET COUNT</td> <td>314 k/cumm</td> <td>150 -400</td> </tr> <tr> <th colspan=& quot;10">RENAL FUNCTION PANEL - 12/04/16 05:50</th> </tr > <tr> <td>POTASSIUM</td> <td& gt;3.8 mmol/L</td> <td>3.5-5.3</td> </tr&gt ; <tr> <td>EST GFR (MDRD)</td> <td >58 mL/min</td> <td>> 59</td> </ tr> <tr> <td>ANION GAP</td> <td >9 mmol/L</td> <td>5-15</td> </tr> <tr> <td>EST CrCl (CG)</td> <td>& gt; 60 mL/min</td> <td>> 59</td> </ tr> <tr> <td>GLUCOSE</td> <td& gt;106 mg/dL</td> <td>70-99</td> </tr> <tr> <td>CALCIUM</td> <td>8.6 mg/dL</td> <td>8.5-10.1</td> </tr> <tr> <td>BLOOD UREA NITROGEN</td> <td& gt;16 mg/dL</td> <td>7-20</td> </tr> < tr> <td>CREATININE</td> <td>1.1 mg/dL< /td> <td>0.6-1.0</td> </tr> <tr& gt; <td>SODIUM</td> <td>138 mmol/L</td&gt ; <td>135-148</td> </tr> <tr> <td>CHLORIDE</td> <td>109 mmol/L</td> <td>98-110</td> </tr> <tr> &lt ;td>CARBON DIOXIDE</td> <td>20 mmol/L</td> <td>21-32</td> </tr> <tr> < td>ALBUMIN</td> <td>3.3 gm/dL</td> <td >3.4-5.0</td> </tr> <tr> <td> PHOSPHORUS</td> <td>4.8 mg/dL</td> <td&gt ;2.5-4.9</td> </tr> <tr> <th colspan ="10">MAGNESIUM - 12/04/16 05:50</th> </tr> <tr> <td>MAGNESIUM</td> <td>2.2 mg /dL</td> <td>1.8-2.4</td> </tr> & lt;tr> <th colspan="10">CBCW/DIFF - 12/05/16 05:13& lt;/th> </tr> <tr> <td>EOSINOPHIL #& lt;/td> <td>0.4 k/cumm</td> <td>0.1-0.5& lt;/td> </tr> <tr> <td>EOSINOPHIL & amp;#37;</td> <td>3%</td> <td> 2-4</td> </tr> <tr><td>GRANULOCYTE #</ td> <td>9.7 k/cumm</td> <td>2.0-9.0</ td> </tr> <tr> <td>GRANULOCYTE & #37;</td> <td>73 %</td> <td>50 -75</td> </tr> <tr> <td>LYMPHOCYTE # </td> <td>2.3 k/cumm</td> <td>1.0-4.0&lt ;/td> </tr> <tr> <td>LYMPHOCYTE &amp ;#37;</td> <td>17 %</td> <td> 20-30</td> </tr> <tr> <td>MEAN CELL HGB</td> <td>28.1 pg</td> <td> 27.0-33.0</td> </tr> <tr> <td>MEAN CELL HGB CONCENTRATION</td> <td>33.2 g/dL</td> < td>32.0-37.0</td> </tr> <tr> <td& gt;MEAN CELL VOLUME</td> <td>84.7 fl</td> & lt;td>80.0-100.0</td> </tr> <tr> <td> MONOCYTE #</td> <td>0.9 k/cumm</td> <td& gt;0.1-1.0</td> </tr> <tr> <td> MONOCYTE %</td> <td>7 %</td> <td>4-6</td> </tr> <tr> <td& gt;RED BLOOD CELL</td><td>4.91 m/cumm</td> <td> 4.00-6.00</td> </tr> <tr> <td> RED CELL DISTRIBUTION WIDTH</td> <td>13.2 %</td& gt; <td>11.0-15.6</td> </tr> <tr&gt ; <td>WHITE BLOOD CELL</td> <td>13.5 k/cumm& lt;/td> <td>5.0-10.0</td> </tr> < tr> <td>HEMOGLOBIN</td><td>13.8 gm/dL</td> <td>12.0-16.0</td> </tr> <tr> <td>HEMATOCRIT</td> <td>41.6 %</td& gt; <td>37.0-47.0</td> </tr> <tr> <td>PLATELET COUNT</td> <td>299 k/cumm</td> <td>150-400</td> </tr> <tr> <th colspan="10">RENAL FUNCTION PANEL - 12/05/16 05:13< /th> </tr> <tr> <td>POTASSIUM</td > <td>3.5 mmol/L</td> <td>3.5-5.3</td> </tr> <tr> <td>EST GFR (MDRD)</td&gt ; <td>58 mL/min</td> <td>> 59</td> </tr> <tr> <td>ANION GAP</td> <td>10 mmol/L</td> <td>5-15</td> & lt;/tr> <tr> <td>EST CrCl (CG)</td> <td>> 60 mL/min</td> <td>> 59</td > </tr> <tr> <td>GLUCOSE</td> <td>127 mg/dL</td> <td>70-99</td> < /tr> <tr> <td>CALCIUM</td> <td& gt;8.9 mg/dL</td> <td>8.5-10.1</td> </tr&gt ; <tr> <td>BLOOD UREA NITROGEN</td> <td& gt;18 mg/dL</td> <td>7-20</td> </tr> <tr> <td>CREATININE</td> <td>1.1 mg/dL& lt;/td> <td>0.6-1.0</td> </tr> < tr> <td>SODIUM</td> <td>139 mmol/L</td > <td>135-148</td> </tr> <tr> <td>CHLORIDE</td> <td>111 mmol/L</td> <td>98-110</td> </tr> <tr> &lt ;td>CARBON DIOXIDE</td> <td>18 mmol/L</td> & lt;td>21-32</td> </tr> <tr> <td& gt;ALBUMIN</td> <td>3.4 gm/dL</td> <td&gt ;3.4-5.0</td> </tr> <tr> <td> PHOSPHORUS</td> <td>4.2 mg/dL</td> <td&gt ;2.5-4.9</td> </tr> <tr> <th colspan ="10">MAGNESIUM - 12/05/16 05:13</th> </tr> <tr><td>MAGNESIUM</td> <td>2.1 mg/dL</td > <td>1.8-2.4</td> </tr> <tr> <th colspan="10">CBC W/DIFF - 12/05/16 05:13</th&gt ; </tr> <tr> <td>EOSINOPHIL #</td&gt ; <td>0.4 k/cumm</td> <td>0.1-0.5</td&gt ; </tr> <tr> <td>EOSINOPHIL %& lt;/td> <td>3 %</td> <td>2-4</ td> </tr> <tr> <td>GRANULOCYTE #< /td> <td>9.7 k/cumm</td> <td>2.0-9.0</ td> </tr> <tr> <td>GRANULOCYTE & #37;</td><td>73 %</td> <td>50-75</td > </tr> <tr> <td>LYMPHOCYTE #</td > <td>2.3 k/cumm</td> <td>1.0-4.0</td& gt; </tr> <tr> <td>LYMPHOCYTE % </td> <td>17 %</td> <td>20-30& lt;/td> </tr> <tr> <td>MEAN CELL HGB </td> <td>28.1 pg</td> <td>27.0-33.0& lt;/td> </tr> <tr> <td>MEAN CELL HGB CONCENTRATION</td> <td>33.2 g/dL</td> & lt;td>32.0-37.0</td> </tr> <tr> < td>MEAN CELL VOLUME</td> <td>84.7 fl</td> <td>80.0-100.0</td> </tr> <tr> <td>MONOCYTE #</td> <td>0.9 k/cumm</td> <td>0.1-1.0</td> </tr> <tr> & lt;td>MONOCYTE %</td> <td>7 %</td&gt ; <td>4-6</td> </tr> <tr> <td>RED BLOOD CELL</td> <td>4.91 m/cumm</td> <td>4.00-6.00</td> </tr> <tr> <td>RED CELL DISTRIBUTION WIDTH</td> <td>13.2 & amp;#37;</td> <td>11.0-15.6</td> </tr> <tr> <td>WHITE BLOOD CELL</td> <td >13.5 k/cumm</td> <td>5.0-10.0</td> </tr > <tr> <td>HEMOGLOBIN</td> <td& gt;13.8 gm/dL</td> <td>12.0-16.0</td> </tr& gt; <tr> <td>HEMATOCRIT</td> <td> 41.6 %</td> <td>37.0-47.0</td> </tr > <tr> <td>PLATELET COUNT</td> &lt ;td>299 k/cumm</td> <td>150-400</td> </ tr> <tr> <th colspan="10">RENAL FUNCTION PANEL - 12/05/16 05:13</th> </tr> <tr> <td>POTASSIUM</td> <td>3.5 mmol/L</td&gt ; <td>3.5-5.3</td> </tr> <tr> <td>EST GFR (MDRD)</td> <td>58 mL/min</td&gt ; <td>> 59</td> </tr> <tr&gt ; <td>ANION GAP</td> <td>10 mmol/L</td&gt ; <td>5-15</td> </tr> <tr> &lt ;td>EST CrCl (CG)</td> <td>> 60 mL/min</td&gt ; <td>> 59</td> </tr> <tr&gt ; <td>GLUCOSE</td> <td>127 mg/dL</td> <td>70-99</td> </tr> <tr> & lt;td>CALCIUM</td> <td>8.9 mg/dL</td> &lt ;td>8.5-10.1</td> </tr> <tr> <td& gt;BLOOD UREA NITROGEN</td> <td>18 mg/dL</td> <td>7-20</td> </tr> <tr> < td>CREATININE</td> <td>1.1 mg/dL</td> &lt ;td>0.6-1.0</td> </tr> <tr> <td> SODIUM</td> <td>139 mmol/L</td> <td> 135-148</td> </tr> <tr> <td> CHLORIDE</td> <td>111 mmol/L</td> <td> 98-110</td> </tr> <tr> <td> CARBON DIOXIDE</td> <td>18 mmol/L</td> < td>21-32</td> </tr> <tr> <td> ALBUMIN</td> <td>3.4 gm/dL</td> <td>3.4- 5.0</td> </tr><tr> <td>PHOSPHORUS</td > <td>4.2 mg/dL</td><td>2.5-4.9</td> </tr> <tr> <th colspan="10"> MAGNESIUM - 12/05/16 05:13</th> </tr> <tr> <td>MAGNESIUM</td> <td>2.1 mg/dL</td> <td>1.8-2.4</td> </tr> <tr> & lt;th colspan="10">L200.0010 - 12/07/16 22:21</th> &lt ;/tr> <tr> <td>FUNGAL CULTURE.</td> &lt ;td>1.1 MG/DL</td> <td>0.7-1.2</td> </tr > <tr> <td>FUNGAL CULTURE, BLOOD.</td> <td>15 RATIO</td> <td>6-26</td> & lt;/tr> <tr> <td>NA - Sodium</td> <td>140 MEQ/L</td> <td>134-144</td> < /tr> <tr> <td>Potassium</td> < td>3.4 MEQ/L</td> <td>3.6-5</td> </tr&gt ; <tr> <td>Chloride</td> <td> 110 MEQ/L</td> <td>98-107</td> </tr> &lt ;tr> <td>CO2 - Carbon Dioxide</td> <td> 19 MEQ/L</td> <td>22-30</td> </tr> <tr> <td>Anion Gap</td> <td>11 MEQ/L</td& gt; <td>5-15</td> </tr> <tr> <td>BUN - Blood Urea Nitrogen</td> <td>16.0 MG/DL& lt;/td> <td>7-17</td> </tr> <tr& gt; <td>Glomerular Filtration Rate</td> <td> 58 </td> <td>NRG</td> </tr> <tr& gt; <td>Glucose</td> <td>110 MG/DL</td&gt ; <td>65-110</td> </tr> <tr> <td>Osmolality,Calculated</td> <td>271 MOSM/KG& lt;/td> <td>261-280</td> </tr> < tr> <td>Calcium</td> <td>9.2 MG/DL</td > <td>8.4-10.2</td> </tr> <tr&gt ; <td>Bilirubin,Total</td> <td>0.80 MG/DL&lt ;/td> <td>0.20-1.30</td> </tr> < tr> <td>Bilirubin,Unconjugated</td> <td> 0.60 MG/DL</td> <td>0.00-11.10</td> </tr> <tr> <td>Bilirubin,Conjugated</td> < td>0.00 MG/DL</td> <td>0.00-0.30</td> </ tr> <tr> <td>Alkaline Phosphatase</td> <td>94 U/L</td> <td>38-126</td> & lt;/tr> <tr> <td>AST - Aspartate Amino Transfer&lt ;/td> <td>17 U/L</td> <td>14-36</td> </tr> <tr> <td>ALT</td> & lt;td>47 U/L</td> <td>9-52</td> </tr> <tr> <td>TP - Total Protein</td> <td> 7.0 G/DL</td> <td>6.3-8.2</td> </tr> <tr> <td>Albumin Level</td> <td>4.3 G/DL</td> <td>3.5-5.0</td> </tr> <tr> <td>Globulin</td> <td>2.7 G/DL&lt ;/td> <td>2.4-3.6</td> </tr> <tr& gt; <td>Albumin/Globulin Ratio</td> <td>1.6 RATIO</td> <td>1.1-2.2</td> </tr> <tr> <td>LICTERUS</td> <td>< 2 </td> <td>0-7</td> </tr> <tr > <td>LHEMOLYSIS</td> <td>< 15 </td > <td>0-25</td> </tr> <tr> <td>LTURBIDITY</td> <td>< 20 </td> <td>0-20</td> </tr> <tr> < th colspan="10">L100.0050 - 12/07/16 22:21</th> </ tr> <tr> <td>WBC - WHITE BLOOD COUNT</td> <td>14.5 T/MM3</td> <td>4.5-11.0</td> </tr> <tr><td>RED BLOOD COUNT</td> <td>4.59 M/MM3</td> <td>4.00-5.20</td> </tr> <tr> <td>HGB - HEMOGLOBIN</td&gt ; <td>13.2 GM/DL</td> <td>12-16</td> </tr> <tr> <td>HCT - HEMATOCRIT</td> <td>38.1 %</td> <td>36-46</td> </tr> <tr> <td>MEANCORPUSCULAR VOLUME& lt;/td> <td>83.0 UM3</td> <td>80-100</ td> </tr> <tr> <td>MEAN CORPUSCULAR HGB</td> <td>28.8 UUG</td> <td>26-34</td&gt ; </tr> <tr> <td>MEAN CORPUSCULAR HGB CONC(MCHC</td> <td>34.6 GM/DL</td> <td&gt ;31-37</td> </tr> <tr> <td>RDW STANDARD DEVIATION</td> <td>39.0 FL</td> &lt ;td>36.9-50.2</td> </tr> <tr> <td >PLT - PLATELET COUNT</td> <td>304 T/MM3</td> &lt ;td>130-400</td> </tr> <tr> <td& gt;MEAN PLATELET VOLUME</td> <td>9.1 UM3</td> < td>9.4-12.4</td> </tr> <tr> <td& gt;NEUTROPHILS % (AUTO)</td> <td>83.8 %< /td> <td>33-66</td> </tr> <tr&gt ; <td>LYMPHOCYTES % (AUTO)</td> <td> 10.9 %</td> <td>23-45</td> </tr&gt ; <tr> <td>MONOCYTES % (AUTO)</td> <td>4.0%</td> <td>0-9.0</td> </tr> <tr> <td>EOSINOPHILS % (AUTO)</ td> <td>0.7 %</td> <td>0-4</td> </tr> <tr> <td>BASOPHILS % ( AUTO)</td> <td>0.2 %</td> <td> 0-2</td> </tr> <tr> <td>IMMATURE GRANULOCYTE % (AUTO)</td> <td>0.4 %</td& gt; <td>0.0-0.5</td> </tr> <tr> <td>NEUTROPHILS # (AUTO)</td> <td>12.1 T/MM3 </td> <td>1.8-7.7</td> </tr> < tr> <td>LYMPHOCYTES # (AUTO)</td> <td> 1.6 T/MM3</td> <td>1-4.8</td> </tr> <tr> <td>MONOCYTES # (AUTO)</td> <td> 0.6 T/MM3</td> <td>0-0.8</td> </tr> <tr> <td>EOSINOPHILS # (AUTO)</td> < td>0.1 T/MM3</td> <td>0-0.5</td> </tr> <tr> <td>BASOPHILS# (AUTO)</td> < td>0.0 T/MM3</td> <td>0-0.2</td> </tr> <tr> <td>IMMATURE GRANULOCYTE # (AUTO)</td><td >0.06 T/MM3</td> <td>0.00-0.03</td> </tr > <tr> <th colspan="10">L100.0050 - 13:50</th> </tr> <tr> <td> WBC - WHITE BLOOD COUNT</td> <td>11.4 T/MM3</td> <td>4.5-11.0</td> </tr> <tr> <td >RED BLOOD COUNT</td> <td>4.83 M/MM3</td> <td>4.00-5.20</td> </tr> <tr> & lt;td>HGB - HEMOGLOBIN</td> <td>13.7 GM/DL</td> <td>12-16</td> </tr> <tr> &lt ;td>HCT - HEMATOCRIT</td> <td>40.7 %</td> <td>36-46</td> </tr> <tr> <td>MEAN CORPUSCULAR VOLUME</td> <td>84.3 UM3< /td> <td>80-100</td> </tr> <tr&gt ; <td>MEAN CORPUSCULAR HGB</td> <td>28.4 UUG</td > <td>26-34</td> </tr> <tr> <td>MEAN CORPUSCULAR HGB CONC(MCHC</td> <td> 33.7 GM/DL</td> <td>31-37</td> </tr> <tr> <td>RDW STANDARD DEVIATION</td> & lt;td>39.2 FL</td> <td>36.9-50.2</td> </ tr> <tr> <td>PLT - PLATELET COUNT</td> & lt;td>305 T/MM3</td> <td>130-400</td> </ tr> <tr> <td>MEAN PLATELET VOLUME</td> <td>9.3 UM3</td> <td>9.4-12.4</td> &lt ;/tr> <tr> <td>NEUTROPHILS % (AUTO)</ td> <td>64.9 %</td> <td>33-66< /td> </tr> <tr> <td>LYMPHOCYTES &amp ;#37; (AUTO)</td> <td>21.5 %</td> & lt;td>23-45</td> </tr> <tr> <td& gt;MONOCYTES % (AUTO)</td> <td>8.2 %</td > <td>0-9.0</td> </tr> <tr> <td>EOSINOPHILS % (AUTO)</td> <td>4.8 & #37;</td> <td>0-4</td> </tr> <tr& gt; <td>BASOPHILS % (AUTO)</td> <td> 0.3 %</td> <td>0-2</td> </tr> <tr> <td>IMMATURE GRANULOCYTE % (AUTO)</td > <td>0.3 %</td> <td>0.0-0.5</ td> </tr> <tr> <td>NEUTROPHILS # ( AUTO)</td> <td>7.4 T/MM3</td> <td>1.8- 7.7</td> </tr> <tr> <td> LYMPHOCYTES # (AUTO)</td> <td>2.5 T/MM3</td> <td>1-4.8</td> </tr> <tr> < td>MONOCYTES # (AUTO)</td> <td>0.9 T/MM3</td> <td>0-0.8</td> </tr> <tr> < td>EOSINOPHILS # (AUTO)</td> <td>0.6 T/MM3</td> <td>0-0.5</td> </tr> <tr> <td>BASOPHILS # (AUTO)</td> <td>0.0 T/MM3</td> <td>0-0.2</td> </tr> <tr> & lt;td>IMMATURE GRANULOCYTE # (AUTO)</td> <td>0.03 T/MM3</td&gt ; <td>0.00-0.03</td> </tr> <tr> <th colspan="10">L200.0020 - 12/16/16 13:50</th> </tr> <tr> <td>FUNGAL CULTURE.</td& gt; <td>0.9 MG/DL</td> <td>0.7-1.2</td&gt ; </tr> <tr> <td>FUNGAL CULTURE, BLOOD. </td> <td>16 RATIO</td> <td>6-26</ td> </tr> <tr> <td>NA - Sodium</ td> <td>142 MEQ/L</td> <td>134-144</td > </tr> <tr> <td>Potassium</td&gt ; <td>4.4 MEQ/L</td> <td>3.6-5</td> </tr> <tr> <td>Chloride</td> < td>106 MEQ/L</td> <td>98-107</td> </tr& gt; <tr> <td>CO2 - Carbon Dioxide</td> <td>27 MEQ/L</td> <td>22-30</td> </tr&gt ; <tr> <td>Anion Gap</td> <td> 9 MEQ/L</td> <td>5-15</td> </tr> < tr> <td>BUN - Blood Urea Nitrogen</td> <td& gt;14.0 MG/DL</td> <td>7-17</td> </tr> <tr> <td>Glomerular Filtration Rate</td> <td>74 </td> <td>NRG</td> </tr& gt; <tr> <td>Glucose</td> <td> 92 MG/DL</td> <td>65-110</td> </tr> <tr> <td>Osmolality,Calculated</td> <td> 274 MOSM/KG</td> <td>261-280</td> </tr> <tr> <td>Calcium</td> <td>9.7 MG/ DL</td> <td>8.4-10.2</td> </tr> <tr& gt; <td>Bilirubin,Total</td> <td>0.70 MG/DL& lt;/td> <td>0.20-1.30</td> </tr> <tr > <td>Alkaline Phosphatase</td> <td>86 U/ L</td> <td>38-126</td> </tr> <tr& gt; <td>AST - Aspartate Amino Transfer</td> <td> 22 U/L</td> <td>14-36</td> </tr> <tr> <td>ALT</td> <td>50 U/L</td&gt ; <td>9-52</td> </tr> <tr> <td>TP - Total Protein</td> <td>6.9 G/DL</td> <td>6.3-8.2</td> </tr> <tr> <td>Albumin Level</td> <td>4.3 G/DL</td> <td>3.5-5.0</td> </tr> <tr> <td>Globulin</td> <td>2.6 G/DL</td> <td>2.4-3.6</td> </tr> <tr> <td&gt ;Albumin/Globulin Ratio</td> <td>1.7 RATIO</td> <td>1.1-2.2</td> </tr> <tr> <td>LICTERUS</td> <td>< 2 </td> <td>0-7</td> </tr> <tr> <td> LHEMOLYSIS</td> <td><15 </td> <td& gt;0-25</td> </tr> <tr> <td> LTURBIDITY</td> <td>< 20 </td> <td >0-20</td> </tr> <tr> <th colspan ="10">L100.0050 - 12/26/16 12:03</th> </tr> <tr> <td>WBC - WHITE BLOOD COUNT</td> & lt;td>14.9 T/MM3</td> <td>4.5-11.0</td> &lt ;/tr> <tr> <td>RED BLOOD COUNT</td> <td>4.96 M/MM3</td> <td>4.00-5.20</td> </tr> <tr> <td>HGB - HEMOGLOBIN</td> <td>13.8 GM/DL</td> <td>12-16</td> </tr> <tr> <td>HCT - HEMATOCRIT</td& gt; <td>41.8 %</td> <td>36-46</td> </tr><tr> <td>MEAN CORPUSCULAR VOLUME</td&gt ; <td>84.3 UM3</td> <td>80-100</td> </tr> <tr> <td>MEANCORPUSCULAR HGB</ td> <td>27.8 UUG</td> <td>26-34</td&gt ; </tr> <tr> <td>MEAN CORPUSCULAR HGB CONC(MCHC</td> <td>33.0 GM/DL</td> <td>31 -37</td> </tr><tr> <td>RDW STANDARD DEVIATION</td> <td>38.8 FL</td> <td> 36.9-50.2</td> </tr> <tr> <td>PLT - PLATELET COUNT</td> <td>304 T/MM3</td> &lt ;td>130-400</td> </tr> <tr> <td& gt;MEAN PLATELET VOLUME</td> <td>9.5 UM3</td> <td& gt;9.4-12.4</td> </tr> <tr> <td> NEUTROPHILS % (AUTO)</td> <td>70.0 %</td > <td>33-66</td> </tr> <tr> <td>LYMPHOCYTES % (AUTO)</td> <td> 18.5 %</td> <td>23-45</td> </tr&gt ; <tr> <td>MONOCYTES % (AUTO)</td> <td>7.4 %</td> <td>0-9.0</td> </tr> <tr> <td>EOSINOPHILS % ( AUTO)</td> <td>3.3 %</td> <td> 0-4</td> </tr> <tr> <td>BASOPHILS % (AUTO)</td> <td>0.3 %</td> <td>0-2</td> </tr> <tr> <td&gt ;IMMATURE GRANULOCYTE % (AUTO)</td> <td>0.5 &# 37;</td> <td>0.0-0.5</td> </tr> & lt;tr> <td>NEUTROPHILS # (AUTO)</td> <td> 10.5 T/MM3</td> <td>1.8-7.7</td> </tr> <tr> <td>LYMPHOCYTES # (AUTO)</td> & lt;td>2.8 T/MM3</td> <td>1-4.8</td> </tr > <tr> <td>MONOCYTES # (AUTO)</td> <td>1.1 T/MM3</td> <td>0-0.8</td> < /tr> <tr> <td>EOSINOPHILS # (AUTO)</td> & lt;td>0.5 T/MM3</td> <td>0-0.5</td> </tr > <tr> <td>BASOPHILS # (AUTO)</td> <td>0.0 T/MM3</td> <td>0-0.2</td> </tr&gt ; <tr> <td>IMMATURE GRANULOCYTE # (AUTO)</td> <td>0.07 T/MM3</td> <td>0.00-0.03</td&gt ; </tr> <tr> <th colspan="10"&gt ;L200.0020 - 12/26/16 12:03</th> </tr> <tr> <td>FUNGAL CULTURE.</td> <td>0.9 MG/DL</td& gt; <td>0.7-1.2</td> </tr> <tr> <td>FUNGAL CULTURE, BLOOD.</td> <td>13 RATIO& lt;/td> <td>6-26</td> </tr> <tr& gt; <td>NA - Sodium</td> <td>141 MEQ/L</ td> <td>134-144</td> </tr> <tr> <td>Potassium</td> <td>4.3 MEQ/L</td&gt ; <td>3.6-5</td> </tr> <tr> <td>Chloride</td> <td>107 MEQ/L</td> <td>98-107</td> </tr> <tr> & lt;td>CO2 - Carbon Dioxide</td> <td>26 MEQ/L</td> <td>22-30</td> </tr> <tr> <td>Anion Gap</td> <td>8 MEQ/L</td> <td>5-15</td> </tr> <tr> <td >BUN - Blood Urea Nitrogen</td> <td>12.0 MG/DL</td&gt ; <td>7-17</td> </tr> <tr> <td>Glomerular Filtration Rate</td> <td>74 </td&gt ; <td>NRG</td> </tr> <tr> <td>Glucose</td> <td>93 MG/DL</td> <td>65-110</td> </tr> <tr> <td >Osmolality,Calculated</td> <td>271MOSM/KG</td> <td>261-280</td> </tr> <tr> < td>Calcium</td> <td>9.5 MG/DL</td> <td >8.4-10.2</td> </tr> <tr> <td> Bilirubin,Total</td><td>0.60 MG/DL</td> <td> 0.20-1.30</td> </tr> <tr> <td> Alkaline Phosphatase</td> <td>90 U/L</td> <td& gt;38-126</td> </tr> <tr> <td> AST - Aspartate Amino Transfer</td> <td>19 U/L</td> <td>14-36</td> </tr> <tr> <td>ALT</td> <td>48 U/L</td> <td >9-52</td> </tr> <tr> <td>TP - Total Protein</td> <td>6.7 G/DL</td> < td>6.3-8.2</td> </tr> <tr> <td&gt ;Albumin Level</td> <td>4.1 G/DL</td> <td >3.5-5.0</td> </tr> <tr> <td> Globulin</td> <td>2.6 G/DL</td> <td> 2.4-3.6</td> </tr> <tr> <td> Albumin/Globulin Ratio</td> <td>1.6 RATIO</td> <td>1.1-2.2</td> </tr> <tr> < td>LICTERUS</td> <td>< 2 </td> <td&gt ;0-7</td> </tr> <tr> <td> LHEMOLYSIS</td> <td>< 15 </td> <td >0-25</td> </tr> <tr> <td> LTURBIDITY</td> <td>< 20 </td> <td >0-20</td> </tr> <tr> <th colspan ="10">L200.3850 - 12/26/16 12:03</th> </tr> <tr> <td>TSH - Thyroid Stim Hormone</td> <td>< 0.02 MIU/L</td> <td>0.47-4.68</td> </tr> <tr> <th colspan="10"> L200.3600 - 12/26/16 12:03</th> </tr> <tr> <td>Free T4 (Free Thyroxine)-Batch</td> <td> 2.36 NG/DL</td> <td>0.78-2.19</td> </tr&gt ; <tr> <th colspan="10">L100.0050 - 23:02</th> </tr> <tr> <td>WBC - WHITE BLOOD COUNT</td> <td>16.2 T/MM3</td> <td>4.5-11.0</td> </tr> <tr> & lt;td>RED BLOOD COUNT</td> <td>4.65 M/MM3</td> <td>4.00-5.20</td> </tr> <tr> <td& gt;HGB - HEMOGLOBIN</td> <td>13.1 GM/DL</td> <td>12-16</td> </tr> <tr> <td& gt;HCT - HEMATOCRIT</td> <td>38.8 %</td> <td>36-46</td> </tr> <tr> &lt ;td>MEAN CORPUSCULAR VOLUME</td> <td>83.4 UM3</td&gt ; <td>80-100</td> </tr> <tr> <td>MEAN CORPUSCULAR HGB</td> <td>28.2 UUG</ td> <td>26-34</td> </tr> <tr> <td>MEAN CORPUSCULAR HGB CONC(MCHC</td> <td&gt ;33.8 GM/DL</td> <td>31-37</td> </tr> <tr> <td>RDW STANDARD DEVIATION</td> &lt ;td>38.1 FL</td> <td>36.9-50.2</td> </tr > <tr> <td>PLT - PLATELET COUNT</td> <td>313 T/MM3</td> <td>130-400</td> </tr& gt; <tr> <td>MEAN PLATELET VOLUME</td> <td>9.1 UM3</td> <td>9.4-12.4</td></tr&gt ; <tr> <th colspan="10">L100.0105 - 23:02</th> </tr> <tr> <td> NEUTROPHILS % (MANUAL)</td> <td>76.0 %</ td> <td>33-66</td> </tr> <tr> <td>LYMPHOCYTES % (MANUAL)</td> <td&gt ;19.0 %</td> <td>23-45</td> </tr&gt ; <tr> <td>MONOCYTES % (MANUAL)</td> <td>3.0 %</td> <td>0-9.0</td> </tr> <tr> <td>EOSINOPHILS % ( MANUAL)</td> <td>2.0 %</td> <td& gt;0-4</td> </tr> <tr> <td> PROLYMPHOCYTES %</td> <td>12.3 T/MM3</td> <td>1.8-7.7</td> </tr> <tr> <td>NEUTROPHILS # (MANUAL)</td> <td>0.5 T/MM3</ td> <td>0-0.8</td> </tr> <tr> <td>MONOCYTES # (MANUAL)</td> <td>0.3 T/MM3 </td> <td>0-0.5</td> </tr> <tr > <td>Lymphocytes # (Manual)</td> <td>3.1 T/ MM3</td> <td>1-4.8</td> </tr> &lt ;tr> <td>LRBCMOR</td> <td>Normal </td& gt; <td>NRG</td> </tr> <tr> <th colspan="10">L200.0020 - 01/03/17 23:02</th> </tr> <tr> <td>FUNGAL CULTURE.</td> <td>1.0 MG/DL</td> <td>0.7-1.2</td>& lt;/tr> <tr> <td>FUNGAL CULTURE, BLOOD.</td&gt ; <td>16 RATIO</td> <td>6-26</td> </tr> <tr> <td>NA - Sodium</td> < td>143 MEQ/L</td> <td>134-144</td> </tr& gt; <tr> <td>Potassium</td> <td&gt ;3.7 MEQ/L</td> <td>3.6-5</td> </tr> <tr> <td>Chloride</td> <td>107 MEQ/ L</td> <td>98-107</td> </tr> < tr> <td>CO2 - Carbon Dioxide</td> <td>25 MEQ/L</td> <td>22-30</td> </tr> <tr& gt; <td>Anion Gap</td> <td>11 MEQ/L</td& gt; <td>5-15</td> </tr> <tr> <td>BUN - Blood Urea Nitrogen</td> <td>16.0 MG/ DL</td> <td>7-17</td> </tr> < tr> <td>Glomerular Filtration Rate</td> <td& gt;65 </td> <td>NRG</td> </tr> & lt;tr> <td>Glucose</td> <td>95 MG/DL</ td> <td>65-110</td> </tr> <tr&gt ; <td>Osmolality,Calculated</td> <td>276 MOSM/KG</td> <td>261-280</td> </tr> <tr> <td>Calcium</td> <td>8.9 MG/ DL</td> <td>8.4-10.2</td> </tr> & lt;tr> <td>Bilirubin,Total</td> <td>0.50 MG/DL</td> <td>0.20-1.30</td> </tr> <tr> <td>Alkaline Phosphatase</td> < td>103 U/L</td> <td>38-126</td> </tr&gt ; <tr> <td>AST - Aspartate Amino Transfer</td&gt ; <td>19 U/L</td> <td>14-36</td> </tr> <tr> <td>ALT</td> < td>50 U/L</td> <td>9-52</td> </tr> <tr> <td>TP - Total Protein</td> <td> 6.7 G/DL</td> <td>6.3-8.2</td> </tr> <tr> <td>Albumin Level</td> <td>3.9 G/DL</td> <td>3.5-5.0</td> </tr><tr& gt; <td>Globulin</td> <td>2.8 G/DL</td&gt ; <td>2.4-3.6</td> </tr> <tr> <td>Albumin/Globulin Ratio</td> <td>1.4 RATIO& lt;/td> <td>1.1-2.2</td> </tr> < tr> <td>LICTERUS</td> <td>< 2 < /td> <td>0-7</td> </tr> <tr> <td>LHEMOLYSIS</td> <td>< 15 </td& gt; <td>0-25</td> </tr> <tr> <td>LTURBIDITY</td> <td>< 20 </td> <td>0-20</td> </tr> <tr> & lt;th colspan="10">M120.0100 - 01/06/17 12:36</th> &lt ;/tr> <tr> <td>Urine Culture</td> <td> CFU/ml</td> <td>NRG</td> </tr& gt; <tr> <th colspan="10">L100.0050 - 12/16 12:57</th> </tr> <tr> <td> WBC - WHITE BLOOD COUNT</td> <td>14.3 T/MM3</td> <td>4.5-11.0</td> </tr> <tr> <td>RED BLOOD COUNT</td> <td>5.00 M/MM3</td&gt ; <td>4.00-5.20</td> </tr> <tr> <td>HGB - HEMOGLOBIN</td> <td>14.1 GM/DL< /td><td>12-16</td> </tr> <tr> <td>HCT - HEMATOCRIT</td> <td>41.2 %</td& gt; <td>36-46</td> </tr> <tr> <td>MEAN CORPUSCULAR VOLUME</td> <td>82.4 UM3& lt;/td> <td>80-100</td> </tr> <tr > <td>MEAN CORPUSCULAR HGB</td> <td>28.2 UUG</ td> <td>26-34</td> </tr> <tr> <td>MEAN CORPUSCULAR HGB CONC(MCHC</td> <td&gt ;34.2 GM/DL</td> <td>31-37</td> </tr> <tr> <td>RDW STANDARD DEVIATION</td> & lt;td>38.4 FL</td> <td>36.9-50.2</td> </ tr> <tr> <td>PLT - PLATELET COUNT</td> &lt ;td>371 T/MM3</td> <td>130-400</td> </tr > <tr> <td>MEAN PLATELET VOLUME</td> <td>9.1 UM3</td> <td>9.4-12.4</td> & lt;/tr> <tr> <td>NEUTROPHILS % (AUTO)< /td> <td>62.7 %</td> <td>33-66&lt ;/td> </tr> <tr> <td>LYMPHOCYTES &#37 ; (AUTO)</td> <td>25.6 %</td> <td& gt;23-45</td> </tr> <tr> <td> MONOCYTES% (AUTO)</td> <td>6.8 %</td&gt ; <td>0-9.0</td> </tr> <tr> <td>EOSINOPHILS % (AUTO)</td> <td>4.2 & amp;#37;</td> <td>0-4</td> </tr> &lt ;tr> <td>BASOPHILS % (AUTO)</td> <td >0.3 %</td> <td>0-2</td> </tr&gt ; <tr> <td>IMMATURE GRANULOCYTE % (AUTO)< /td> <td>0.4 %</td> <td>0.0-0.5</ td> </tr> <tr> <td>NEUTROPHILS # ( AUTO)</td> <td>9.0 T/MM3</td> <td>1.8- 7.7</td> </tr> <tr> <td> LYMPHOCYTES # (AUTO)</td> <td>3.7 T/MM3</td> <td>1-4.8</td> </tr> <tr> <td& gt;MONOCYTES # (AUTO)</td> <td>1.0 T/MM3</td> <td>0-0.8</td> </tr> <tr> < td>EOSINOPHILS # (AUTO)</td> <td>0.6 T/MM3</td> <td>0-0.5</td> </tr> <tr> <td>BASOPHILS # (AUTO)</td> <td>0.1 T/MM3</td&gt ; <td>0-0.2</td> </tr> <tr> <td>IMMATURE GRANULOCYTE # (AUTO)</td> <td>0.06 T/MM3</td> <td>0.00-0.03</td> </tr> <tr> <th colspan="10">L200.0020 - 01/06/17 12 :57</th> </tr> <tr> <td>FUNGAL CULTURE.</td> <td>1.0 MG/DL</td> <td> 0.7-1.2</td> </tr> <tr> <td>FUNGAL CULTURE, BLOOD.</td> <td>11 RATIO</td> < td>6-26</td> </tr> <tr> <td>NA - Sodium</td> <td>141 MEQ/L</td> <td>134 -144</td> </tr> <tr> <td> Potassium</td> <td>4.0 MEQ/L</td> <td> 3.6-5</td> </tr> <tr> <td> Chloride</td> <td>106 MEQ/L</td> <td> 98-107</td> </tr> <tr> <td>CO2 - Carbon Dioxide</td> <td>24 MEQ/L</td> <td >22-30</td> </tr> <tr> <td>Anion Gap</td> <td>11 MEQ/L</td> <td>5-15</td&gt ; </tr> <tr> <td>BUN - Blood UreaNitrogen</td> <td>11.0 MG/DL</td> <td >7-17</td> </tr> <tr> <td> Glomerular Filtration Rate</td> <td>65 </td> <td>NRG</td> </tr> <tr> <td> Glucose</td> <td>91 MG/DL</td> <td>65- 110</td> </tr> <tr> <td> Osmolality,Calculated</td> <td>270 MOSM/KG</td> < td>261-280</td> </tr> <tr> <td&gt ;Calcium</td> <td>9.8 MG/DL</td> <td> 8.4-10.2</td> </tr> <tr> <td> Bilirubin,Total</td> <td>0.60 MG/DL</td> &lt ;td>0.20-1.30</td> </tr> <tr> <td >Alkaline Phosphatase</td> <td>100 U/L</td> <td>38-126</td> </tr> <tr> & lt;td>AST - Aspartate Amino Transfer</td> <td>22 U/L< /td> <td>14-36</td> </tr> <tr&gt ; <td>ALT</td> <td>43 U/L</td> <td>9-52</td> </tr> <tr> <td> TP - Total Protein</td> <td>7.2 G/DL</td> & lt;td>6.3-8.2</td> </tr> <tr> <td >Albumin Level</td> <td>4.4 G/DL</td> &lt ;td>3.5-5.0</td> </tr> <tr> <td> Globulin</td> <td>2.8 G/DL</td><td>2.4-3.6</ td> </tr> <tr> <td>Albumin/Globulin Ratio</td> <td>1.6 RATIO</td> <td>1.1- 2.2</td> </tr> <tr> <td>LICTERUS</td > <td>< 2</td> <td>0-7</td> </tr> <tr> <td>LHEMOLYSIS</td> <td>< 15 </td> <td>0-25</td> </tr> <tr> <td>LTURBIDITY</td> <td>< 20 </td> <td>0-20</td> </tr> <tr><th colspan="10">L200.2000 - 12/16 12:57</th> </tr> <tr> <td> MAG - Magnesium</td> <td>2.0 MG/DL</td> <td>1.6 -2.3</td> </tr> <tr> <th colspan=& quot;10">L200.18501/06/17 12:57</th> </tr> <tr> <td>LDH - Lactate Dehydrogenase</td> <td>394 U/L</td> <td>313-618</td> </ tr> <tr> <th colspan="10">L200.185901/06/17 12:57</th> </tr> <tr> <td& gt;CRP - C-Reactive Protein</td> <td>12.4 MG/L</td> <td>0-9</td> </tr> <tr> < th colspan="10">L200.38501/06/17 12:57</th> </ tr> <tr> <td>TSH - Thyroid Stim Hormone</td&gt ; <td>0.07 MIU/L</td> <td>0.47-4.68</td& gt; </tr> <tr> <th colspan="10"& gt;L750.0200 - 01/06/17 12:57</th> </tr> <tr> <td>LACTH-A</td> <td>19 pg/mL</td> <td>NRG</td> </tr> <tr> < th colspan="10">L750.8263 - 01/06/17 12:57</th> </ tr> <tr> <td>ESR - Sedimentation Rate - AMS</td& gt; <td>15 mm/h</td> <td>0-23</td> </tr> <tr> <th colspan="10"> L200.3600 - 01/06/17 12:57</th> </tr> <tr> <td>Free T4 (Free Thyroxine)-Batch</td> <td> 1.66 NG/DL</td> <td>0.78-2.19</td> </tr&gt ; <tr> <th colspan="10">L902.5645 - 12:57</th> </tr> <tr> <td> Cortisol Random, Serum - AMS</td> <td>5 ug/dL</td> <td>3-20</td> </tr> <tr> <th colspan="10">M110.0180 - 01/06/17 13:25</th> & lt;/tr> <tr> <td>ANTI-D</td> <td&gt ;No Growth After 5 Days </td> <td>NRG</td> &lt ;/tr> <tr> <th colspan="10">M110.0180 - 01/06/17 13:25</th> </tr> <tr> <td& gt;ANTI-D</td> <td>No Growth After 5 Days </td> <td>NRG</td> </tr> <tr> <th colspan="10">L600.5964 - 01/06/17 21:55</th> </tr& gt; <tr> <td>Occult Blood Result, Stool</td> <td>NEGATIVE </td> <td>NRG</td> </ tr> <tr> <th colspan="10">L100.0050 - 01/07/17 03:54</th> </tr> <tr> <td>WBC - WHITE BLOOD COUNT</td> <td>13.1 T/MM3</td> <td>4.5-11.0</td> </tr> <tr> & lt;td>RED BLOOD COUNT</td> <td>4.82 M/MM3</td> <td>4.00-5.20</td> </tr> <tr> <td>HGB - HEMOGLOBIN</td> <td>13.3 GM/DL</td& gt; <td>12-16</td> </tr> <tr> <td>HCT - HEMATOCRIT</td> <td>40.0 %& lt;/td> <td>36-46</td> </tr> <tr& gt; <td>MEAN CORPUSCULAR VOLUME</td> <td> 83.0 UM3</td> <td>80-100</td> </tr> & lt;tr> <td>MEAN CORPUSCULAR HGB</td> <td> 27.6 UUG</td> <td>26-34</td> </tr> <tr> <td>MEANCORPUSCULAR HGB CONC(MCHC</td> <td>33.3 GM/DL</td> <td>31-37</td> & lt;/tr> <tr> <td>RDW STANDARD DEVIATION</td&gt ; <td>38.8 FL</td> <td>36.9-50.2</td> </tr> <tr> <td>PLT - PLATELET COUNT</ td> <td>350 T/MM3</td> <td>130-400</td > </tr> <tr> <td>MEAN PLATELET VOLUME</td> <td>9.3 UM3</td> <td>9.4- 12.4</td> </tr> <tr> <td> NEUTROPHILS % (AUTO)</td> <td>62.0 %</td > <td>33-66</td> </tr> <tr> <td>LYMPHOCYTES % (AUTO)</td> <td> 25.7 %</td> <td>23-45</td> </tr&gt ; <tr> <td>MONOCYTES % (AUTO)</td> & lt;td>6.8 %</td> <td>0-9.0</td> </tr&gt ; <tr> <td>EOSINOPHILS % (AUTO)</td> <td>4.8 %</td> <td>0-4</td> </tr> <tr> <td>BASOPHILS % (AUTO )</td> <td>0.2 %</td> <td>0-2</td > </tr> <tr> <td>IMMATURE GRANULOCYTE % (AUTO)</td> <td>0.5 %</td& gt; <td>0.0-0.5</td> </tr> <tr> <td>NEUTROPHILS # (AUTO)</td> <td>8.1 T/MM3</td& gt; <td>1.8-7.7</td> </tr> <tr> <td>LYMPHOCYTES # (AUTO)</td> <td>3.4 T/MM3& lt;/td> <td>1-4.8</td> </tr> <tr& gt; <td>MONOCYTES # (AUTO)</td> <td>0.9 T/ MM3</td> <td>0-0.8</td> </tr> &lt ;tr> <td>EOSINOPHILS # (AUTO)</td> <td> 0.6 T/MM3</td> <td>0-0.5</td> </tr> <tr> <td>BASOPHILS # (AUTO)</td> <td>0.0 T/ MM3</td> <td>0-0.2</td> </tr> &lt ;tr> <td>IMMATURE GRANULOCYTE # (AUTO)</td> &lt ;td>0.06 T/MM3</td> <td>0.00-0.03</td> < /tr> <tr> <th colspan="10">L200.0050 - 01/07/17 03:54</th> </tr> <tr> <td> FUNGAL CULTURE.</td> <td>0.9 MG/DL</td> < td>0.7-1.2</td> </tr> <tr> <td&gt ;FUNGAL CULTURE, BLOOD.</td> <td>10 RATIO</td> <td>6-26</td> </tr> <tr> < td>NA - Sodium</td> <td>142 MEQ/L</td> < td>134-144</td> </tr> <tr> <td&gt ;Potassium</td> <td>3.9 MEQ/L</td> <td&gt ;3.6-5</td> </tr> <tr> <td> Chloride</td> <td>109 MEQ/L</td> <td> 98-107</td> </tr> <tr> <td>CO2 - Carbon Dioxide</td> <td>24 MEQ/L</td> <td >22-30</td> </tr> <tr> <td> Anion Gap</td> <td>9 MEQ/L</td> <td>5- 15</td> </tr> <tr> <td>BUN - Blood Urea Nitrogen</td> <td>9.0 MG/DL</td> <td>7-17</td> </tr> <tr> <td& gt;Glomerular Filtration Rate</td> <td>74 </td> <td>NRG</td> </tr> <tr> <td> Glucose</td> <td>96 MG/DL</td> <td>65- 110</td> </tr> <tr> <td> Osmolality,Calculated</td> <td>272 MOSM/KG</td> <td>261-280</td></tr> <tr> <td& gt;Calcium</td> <td>9.2 MG/DL</td> <td&gt ;8.4-10.2</td> </tr> <tr> <td> LICTERUS</td> <td>< 2 </td> <td&gt ;0-7</td> </tr> <tr> <td>LHEMOLYSIS&lt ;/td> <td>< 15 </td> <td>0-25</ td> </tr> <tr> <td>LTURBIDITY</td > <td>< 20 </td> <td>0-20</td& gt; </tr> <tr> <th colspan="10"& gt;L200.0020 - 01/16/17 10:17</th> </tr> <tr> <td>FUNGAL CULTURE.</td> <td>1.1 MG/DL</td > <td>0.7-1.2</td> </tr> <tr> <td>FUNGAL CULTURE, BLOOD.</td> <td>10 RATIO& lt;/td> <td>6-26</td> </tr> <tr& gt; <td>NA - Sodium</td> <td>143 MEQ/L</ td> <td>134-144</td> </tr> <tr> <td>Potassium</td> <td>3.9 MEQ/L</td> <td>3.6-5</td> </tr> <tr> <td>Chloride</td> <td>106 MEQ/L</td> <td>98-107</td> </tr> <tr> & lt;td>CO2 - Carbon Dioxide</td> <td>25 MEQ/L</td> <td>22-30</td> </tr> <tr> <td>Anion Gap</td> <td>12 MEQ/L</td> <td>5-15</td> </tr> <tr> <td >BUN - Blood Urea Nitrogen</td> <td>11.0 MG/DL</td&gt ; <td>7-17</td> </tr> <tr> <td>Glomerular Filtration Rate</td> <td>58 </td&gt ; <td>NRG</td> </tr> <tr> <td>Glucose</td> <td>103 MG/DL</td> <td>65-110</td> </tr> <tr> < td>Osmolality,Calculated</td> <td>274 MOSM/KG</td&gt ; <td>261-280</td> </tr> <tr> & lt;td>Calcium</td> <td>9.8 MG/DL</td> &lt ;td>8.4-10.2</td> </tr> <tr> <td& gt;Bilirubin,Total</td> <td>0.60 MG/DL</td> <td&gt ;0.20-1.30</td> </tr> <tr> <td> Alkaline Phosphatase</td> <td>91 U/L</td> <td& gt;38-126</td> </tr> <tr> <td> AST - Aspartate Amino Transfer</td> <td>19 U/L</td> <td>14-36</td> </tr> <tr> <td>ALT</td> <td>40 U/L</td> <td >9-52</td> </tr> <tr> <td>TP - Total Protein</td> <td>7.3 G/DL</td> < td>6.3-8.2</td> </tr> <tr> <td&gt ;Albumin Level</td> <td>4.4 G/DL</td> <td >3.5-5.0</td> </tr> <tr> <td> Globulin</td> <td>2.9 G/DL</td> <td> 2.4-3.6</td> </tr> <tr> <td> Albumin/Globulin Ratio</td> <td>1.5 RATIO</td> <td>1.1-2.2</td> </tr> <tr> < td>LICTERUS</td> <td>< 2 </td> <td& gt;0-7</td> </tr> <tr> <td> LHEMOLYSIS</td> <td>< 15 </td> <td >0-25</td> </tr> <tr> <td> LTURBIDITY</td> <td>< 20 </td> <td >0-20</td> </tr> <tr> <th colspan ="10">L200.3850 - 01/16/17 10:17</th> </tr> <tr><td>TSH - Thyroid Stim Hormone</td> <td&gt ;1.90 MIU/L</td> <td>0.47-4.68</td> </tr&gt ; <tr> <th colspan="10">L200.2000 - 10:17</th> </tr> <tr> <td>MAG - Magnesium</td> <td>1.9 MG/DL</td> <td& gt;1.6-2.3</td> </tr> <tr> <th colspan="10">L200.1855 - 01/16/17 10:17</th> </tr& gt; <tr> <td>LDH - Lactate Dehydrogenase</td> <td>417 U/L</td> <td>313-618</td> </tr> <tr> <th colspan="10"> L200.3600 - 01/16/17 10:45</th> </tr> <tr> <td>Free T4 (Free Thyroxine)-Batch</td> <td> 1.19 NG/DL</td> <td>0.78-2.19</td> </tr&gt ; <tr> <th colspan="10">L750.0200 - 10:45</th> </tr> <tr> <td>LACTH-A& lt;/td> <td>17 pg/mL</td> <td>NRG</td& gt; </tr> <tr> <th colspan="10"& gt;L750.2985 - 01/16/17 10:45</th> </tr> <tr> <td>Cortisol AM, Serum - AMS</td> <td>5 ug/dL</ td> <td>3-20</td> </tr> <tr> <th colspan="10">L550.4000 - 01/17/17 08:30</th> </tr> <tr> <td>C Diff Tox B PCR, Stool </td> <td>Negative </td> <td>Negative& lt;/td> </tr> <tr> <th colspan="10 ">L100.0050 - 01/22/17 13:20</th> </tr> <tr > <td>WBC - WHITE BLOOD COUNT</td> <td> 15.0 T/MM3</td> <td>4.5-11.0</td> </tr> <tr> <td>RED BLOOD COUNT</td> <td >5.02 M/MM3</td> <td>4.00-5.20</td> </tr > <tr><td>HGB - HEMOGLOBIN</td> <td> 13.7 GM/DL</td> <td>12-16</td> </tr> <tr> <td>HCT - HEMATOCRIT</td> <td> 41.5 %</td> <td>36-46</td> </tr&gt ; <tr> <td>MEAN CORPUSCULAR VOLUME</td> & lt;td>82.7 UM3</td> <td>80-100</td> </tr > <tr> <td>MEAN CORPUSCULAR HGB</td> <td>27.3 UUG</td> <td>26-34</td> &lt ;/tr> <tr> <td>MEAN CORPUSCULAR HGB CONC(MCHC< /td> <td>33.0 GM/DL</td> <td>31-37</td > </tr> <tr> <td>RDW STANDARD DEVIATION& lt;/td> <td>39.7 FL</td> <td>36.9-50.2&lt ;/td> </tr> <tr> <td>PLT - PLATELET COUNT</td> <td>340 T/MM3</td> <td>130- 400</td> </tr> <tr> <td>MEAN PLATELET VOLUME</td> <td>9.5 UM3</td> <td> 9.4-12.4</td> </tr> <tr> <td> NEUTROPHILS % (AUTO)</td> <td>67.8 %</td > <td>33-66</td> </tr> <tr> <td>LYMPHOCYTES % (AUTO)</td> <td> 20.9 %</td> <td>23-45</td> </tr&gt ; <tr> <td>MONOCYTES % (AUTO)</td> <td>6.5 %</td> <td>0-9.0</td> & lt;/tr> <tr> <td>EOSINOPHILS % (AUTO)< /td> <td>4.0 %</td> <td>0-4</ td> </tr> <tr> <td>BASOPHILS &# 37; (AUTO)</td> <td>0.4 %</td> < td>0-2</td> </tr> <tr> <td> IMMATURE GRANULOCYTE % (AUTO)</td> <td>0.4 &#37 ;</td> <td>0.0-0.5</td> </tr> &lt ;tr> <td>NEUTROPHILS # (AUTO)</td> <td> 10.1 T/MM3</td> <td>1.8-7.7</td> </tr> <tr> <td>LYMPHOCYTES # (AUTO)</td> & lt;td>3.1 T/MM3</td> <td>1-4.8</td> </tr > <tr> <td>MONOCYTES # (AUTO)</td> <td>1.0 T/MM3</td> <td>0-0.8</td> < /tr> <tr> <td>EOSINOPHILS # (AUTO)</td> <td>0.6 T/MM3</td> <td>0-0.5</td> &lt ;/tr> <tr> <td>BASOPHILS # (AUTO)</td> <td>0.1 T/MM3</td> <td>0-0.2</td> < /tr> <tr> <td>IMMATURE GRANULOCYTE # (AUTO)</ td> <td>0.06 T/MM3</td> <td>0.00-0.03< /td> </tr> <tr> <th colspan="10& quot;>L200.0020 - 01/22/17 13:20</th> </tr> <tr& gt; <td>FUNGAL CULTURE.</td> <td>1.1 MG/DL& lt;/td> <td>0.7-1.2</td> </tr> < tr> <td>FUNGAL CULTURE, BLOOD.</td> <td> 12 RATIO</td> <td>6-26</td> </tr> <tr> <td>NA - Sodium</td> <td>141 MEQ/L</td> <td>134-144</td> </tr> <tr> <td>Potassium</td> <td>3.7 MEQ/ L</td> <td>3.6-5</td> </tr> < tr> <td>Chloride</td> <td>105 MEQ/L</ td> <td>98-107</td> </tr> <tr&gt ; <td>CO2 - Carbon Dioxide</td> <td>28 MEQ/L</td& gt; <td>22-30</td> </tr> <tr> <td>Anion Gap</td> <td>8 MEQ/L</td> <td>5-15</td> </tr> <tr> & lt;td>BUN - Blood Urea Nitrogen</td> <td>13.0 MG/DL</ td> <td>7-17</td> </tr> <tr> <td>Glomerular Filtration Rate</td> <td>58 & lt;/td> <td>NRG</td> </tr> <tr&gt ; <td>Glucose</td> <td>104 MG/DL</td> <td>65-110</td></tr> <tr> < td>Osmolality,Calculated</td> <td>271 MOSM/KG</td&gt ; <td>261-280</td> </tr> <tr> <td>Calcium</td> <td>9.7 MG/DL</td> <td>8.4-10.2</td> </tr> <tr> & lt;td>Bilirubin,Total</td> <td>0.60 MG/DL</td> <td>0.20-1.30</td> </tr> <tr> <td> Alkaline Phosphatase</td> <td>88 U/L</td> < td>38-126</td> </tr> <tr> <td> AST - Aspartate Amino Transfer</td> <td>20 U/L</td> <td>14-36</td> </tr> <tr> <td>ALT</td> <td>44 U/L</td> <td >9-52</td> </tr> <tr> <td>TP - Total Protein</td> <td>6.9 G/DL</td> < td>6.3-8.2</td> </tr> <tr> <td&gt ;Albumin Level</td> <td>4.2 G/DL</td> <td >3.5-5.0</td> </tr> <tr> <td> Globulin</td> <td>2.7 G/DL</td> <td> 2.4-3.6</td> </tr> <tr> <td> Albumin/Globulin Ratio</td> <td>1.6 RATIO</td> <td>1.1-2.2</td> </tr> <tr> & lt;td>LICTERUS</td> <td>< 2 </td> & lt;td>0-7</td> </tr> <tr> <td> LHEMOLYSIS</td> <td>< 15 </td> <td >0-25</td> </tr> <tr> <td> LTURBIDITY</td> <td>< 20 </td> <td >0-20</td> </tr> <tr> <th colspan ="10">L200.2000 - 01/22/17 13:20</th> </tr> <tr> <td>MAG - Magnesium</td> <td>2.0 MG/ DL</td> <td>1.6-2.3</td> </tr> & lt;tr> <th colspan="10">L200.1855 - 01/22/17 13:20& lt;/th> </tr> <tr> <td>LDH - Lactate Dehydrogenase</td> <td>409 U/L</td> <td>313-618</td> </tr> <tr> < th colspan="10">L600.010 - 01/22/17 15:02</th> </ tr> <tr> <td>POTASSIUM</td> <td> Not Provided </td> <td>NRG</td> </tr> <tr> <td>CHLORIDE</td> <td> YELLOW </td> <td>YELLOW</td> </tr> <tr> <td>ANION GAP</td> <td>SL CLOUDY & lt;/td> <td>NRG</td> </tr> <tr&gt ; <td>BLOOD UREA NITROGEN</td> <td>5.5 </ td> <td>5.0-8.0</td> </tr> <tr> <td>BUN/CREATININERATIO</td> <td>NEGATIVE </td& gt; <td>NEGATIVE</td> </tr> <tr> <td>GLUCOSE</td> <td>NEGATIVE </td> <td>NEGATIVE</td> </tr> <tr> & lt;td>CALCIUM</td> <td>NEGATIVE </td> &lt ;td>NEGATIVE</td> </tr> <tr> <td& gt;BILIRUBIN, CONJUG &amp; UNCONJUG</td> <td> NEGATIVE </td> <td>NEGATIVE</td> </tr> <tr> <td>Specific [place],Urine</td> <td>1.020 </td> <td>1.015-1.025</td> &lt ;/tr> <tr> <td>Leukocyte Esterase,Urine</td&gt ; <td>NEGATIVE </td> <td>NEGATIVE</td&gt ; </tr> <tr> <td>Nitrate,Urine</td& gt; <td>NEGATIVE </td> <td>NEGATIVE</td& gt; </tr> <tr> <td>Urobilinogen,Urine< /td> <td>0.2 EU/DL</td> <td>NORMAL</td > </tr> <tr> <td>Occult Blood,Urine - Dipstick</td> <td>NEGATIVE </td> <td&gt ;NEGATIVE</td> </tr> <tr> <td> Urine Microscopic (UA)</td> <td>Microscopic Not Ind. </ td> <td>NRG</td> </tr> <tr> <th colspan="10">HEMOGLOBIN - 01/27/17 07:56</th> </tr> <tr> <td>MEAN CELL VOLUME</td > <td>82.8 fl</td> <td>80.0-100.0</td& gt; </tr> <tr> <td>HEMOGLOBIN</td&gt ; <td>13.8 gm/dL</td> <td>12.0-16.0</td& gt; </tr> <tr> <th colspan="10"& gt; TEST, SERUM - 01/27/17 07:56</th> </tr> & lt;tr> <td> TEST, SERUM</td> <td&gt ;NEGATIVE </td> <td>NEGATIVE</td> </tr> <tr> <th colspan="10">METABOLIC PANEL, BASIC - 01/27/17 07:56</th> </tr> <tr> <td>POTASSIUM</td> <td>3.9 mmol/L</td> <td>3.5-5.3</td> </tr> <tr> &lt ;td>EST GFR (MDRD)</td> <td>53 mL/min</td> <td>> 59</td> </tr> <tr> <td>ANION GAP</td> <td>11 mmol/L</td> <td>5-15</td> </tr> <tr> < td>EST CrCl (CG)</td> <td>> 60 mL/min</td> <td>> 59</td> </tr> <tr> <td>GLUCOSE</td> <td>105 mg/dL</td> <td>70-99</td> </tr> <tr> < td>CALCIUM</td> <td>9.4 mg/dL</td> <td >8.5-10.1</td> </tr> <tr> <td> BLOOD UREA NITROGEN</td> <td>17 mg/dL</td> & lt;td>7-20</td> </tr> <tr> <td&gt ;CREATININE</td> <td>1.2 mg/dL</td> <td& gt;0.6-1.0</td> </tr> <tr> <td> SODIUM</td> <td>137 mmol/L</td> <td> 135-148</td> </tr> <tr> <td> CHLORIDE</td> <td>102 mmol/L</td> <td> 98-110</td> </tr> <tr> <td> CARBON DIOXIDE</td> <td>24 mmol/L</td> < td>21-32</td> </tr> <tr> <th colspan="10">HEMOGLOBIN - 08// 07:56</th> </tr& gt; <tr> <td>MEAN CELL VOLUME</td> < td>82.8 fl</td> <td>80.0-100.0</td> </tr& gt; <tr> <td>HEMOGLOBIN</td> <td& gt;13.8 gm/dL</td> <td>12.0-16.0</td> </tr&gt ; <tr> <th colspan="10"> TEST, SERUM -01/27/17 07:56</th> </tr> <tr> & lt;td> TEST, SERUM</td> <td>NEGATIVE </td&gt ; <td>NEGATIVE</td> </tr> <tr> <th colspan="10">METABOLIC PANEL, BASIC - 01/27/17 07:56 </th> </tr> <tr> <td>POTASSIUM&lt ;/td> <td>3.9 mmol/L</td> <td>3.5-5.3</td& gt; </tr> <tr> <td>EST GFR (MDRD)</td> <td>53 mL/min</td> <td>> 59</td> </tr> <tr> <td>ANION GAP</td> <td>11 mmol/L</td> <td>5-15</td> & lt;/tr> <tr> <td>EST CrCl (CG)</td> <td>> 60 mL/min</td> <td>> 59</td > </tr> <tr> <td>GLUCOSE</td> <td>105 mg/dL</td> <td>70-99</td> & lt;/tr> <tr> <td>CALCIUM</td> < td>9.4 mg/dL</td> <td>8.5-10.1</td> </tr > <tr> <td>BLOOD UREA NITROGEN</td> & lt;td>17 mg/dL</td> <td>7-20</td> </tr& gt; <tr> <td>CREATININE</td> <td> 1.2 mg/dL</td> <td>0.6-1.0</td> </tr>&lt ;tr> <td>SODIUM</td> <td>137 mmol/L</ td> <td>135-148</td> </tr> <tr&gt ; <td>CHLORIDE</td> <td>102 mmol/L</td&gt ; <td>98-110</td> </tr> <tr> <td>CARBON DIOXIDE</td> <td>24 mmol/L</td> <td>21-32</td> </tr> <tr> & lt;th colspan="10">L100.0050 - 01/30/17 00:10</th> &lt ;/tr> <tr> <td>WBC - WHITE BLOOD COUNT</td&gt ; <td>19.7 T/MM3</td> <td>4.5-11.0</td&gt ; </tr> <tr> <td>RED BLOOD COUNT</td > <td>4.93 M/MM3</td> <td>4.00-5.20</ td> </tr> <tr> <td>HGB - HEMOGLOBIN& lt;/td> <td>13.7 GM/DL</td> <td>12-16< /td> </tr> <tr> <td>HCT - HEMATOCRIT </td> <td>41.4 %</td> <td>36- 46</td> </tr> <tr> <td>MEAN CORPUSCULAR VOLUME</td> <td>84.0 UM3</td> <td& gt;80-100</td> </tr> <tr> <td> MEAN CORPUSCULAR HGB</td> <td>27.8 UUG</td> < td>26-34</td> </tr> <tr> <td> MEAN CORPUSCULAR HGB CONC(MCHC</td> <td>33.1 GM/DL</td& gt; <td>31-37</td> </tr> <tr> <td>RDW STANDARD DEVIATION</td> <td>42.4 FL</td&gt ; <td>36.9-50.2</td> </tr> <tr> <td>PLT - PLATELET COUNT</td> <td>347 T/MM3& lt;/td> <td>130-400</td> </tr> <tr& gt; <td>MEAN PLATELET VOLUME</td> <td>9.3 UM3</td> <td>9.4-12.4</td> </tr> & lt;tr> <th colspan="10">L100.0105 - 01/30/17 00:10& lt;/th> </tr> <tr> <td>NEUTROPHILS & amp;#37; (MANUAL)</td> <td>74.0 %</td> <td>33-66</td> </tr> <tr> &lt ;td>LYMPHOCYTES % (MANUAL)</td> <td>26.0 &# 37;</td> <td>23-45</td> </tr> &lt ;tr> <td>PROLYMPHOCYTES %</td> <td& gt;14.6 T/MM3</td> <td>1.8-7.7</td> </tr&gt ; <tr> <td>Lymphocytes # (Manual)</td> <td>5.1 T/MM3</td> <td>1-4.8</td> &lt ;/tr> <tr> <td>LRBCMOR</td> <td >Normal </td> <td>NRG</td> </tr> <tr> <th colspan="10">L200.0010 - 01/30/17 00 :10</th> </tr> <tr> <td>FUNGAL CULTURE.</td> <td>1.0 MG/DL</td> <td> 0.7-1.2</td> </tr> <tr> <td> FUNGAL CULTURE, BLOOD.</td> <td>15 RATIO</td> <td>6-26</td> </tr> <tr> < td>NA - Sodium</td> <td>141 MEQ/L</td> & lt;td>134-144</td> </tr> <tr> <td >Potassium</td> <td>4.0 MEQ/L</td> <td >3.6-5</td></tr> <tr> <td>Chloride&lt ;/td> <td>105 MEQ/L</td> <td>98-107</ td> </tr> <tr> <td>CO2 - Carbon Dioxide</td> <td>26 MEQ/L</td> <td>22- 30</td> </tr> <tr> <td>Anion Gap& lt;/td> <td>10 MEQ/L</td> <td>5-15</td > </tr> <tr> <td>BUN - Blood Urea Nitrogen&lt ;/td> <td>15.0 MG/DL</td> <td>7-17</td > </tr> <tr> <td>Glomerular FiltrationRate</td> <td>65 </td> <td> NRG</td> </tr> <tr> <td>Glucose& lt;/td> <td>96 MG/DL</td> <td>65-110</td&gt ; </tr> <tr> <td>Osmolality,Calculated& lt;/td> <td>272 MOSM/KG</td> <td>261-280& lt;/td> </tr> <tr> <td>Calcium</td > <td>9.0 MG/DL</td> <td>8.4-10.2</td& gt; </tr> <tr> <td>Bilirubin,Total</ td> <td>0.60 MG/DL</td> <td>0.20-1.30< /td> </tr> <tr> <td>Bilirubin, Unconjugated</td> <td>0.20 MG/DL</td> <td >0.00-11.10</td> </tr> <tr> <td& gt;Bilirubin,Conjugated</td> <td>0.00 MG/DL</td> <td>0.00-0.30</td> </tr> <tr> <td>Alkaline Phosphatase</td> <td>78 U/L</td& gt; <td>38-126</td> </tr> <tr> <td>AST - Aspartate Amino Transfer</td> <td> 30 U/L</td> <td>14-36</td> </tr> <tr> <td>ALT</td> <td>47 U/L</td&gt ; <td>9-52</td> </tr> <tr> <td>TP - Total Protein</td> <td>6.9 G/DL</td& gt; <td>6.3-8.2</td> </tr> <tr> <td>Albumin Level</td> <td>4.0 G/DL</td& gt; <td>3.5-5.0</td> </tr> <tr> <td>Globulin</td> <td>2.9 G/DL</td> <td>2.4-3.6</td></tr> <tr> < td>Albumin/Globulin Ratio</td> <td>1.4 RATIO</td> <td>1.1-2.2</td> </tr> <tr> <td>LICTERUS</td> <td>< 2 </td> <td>0-7</td> </tr> <tr> <td& gt;LHEMOLYSIS</td> <td>< 15 </td> &lt ;td>0-25</td> </tr> <tr> <td> LTURBIDITY</td> <td>< 20 </td> <td >0-20</td> </tr> <tr> <th colspan ="10">L200.0020 - 02/04/17 12:35</th> </tr> <tr> <td>FUNGAL CULTURE.</td> <td> 1.1 MG/DL</td> <td>0.7-1.2</td> </tr> & lt;tr> <td>FUNGAL CULTURE, BLOOD.</td> <td& gt;16 RATIO</td> <td>6-26</td> </tr> <tr> <td>NA - Sodium</td> <td>142 MEQ/L& lt;/td> <td>134-144</td> </tr> < tr> <td>Potassium</td> <td>4.2 MEQ/L</ td> <td>3.6-5</td> </tr> <tr> <td>Chloride</td> <td>105 MEQ/L</td> <td>98-107</td> </tr> <tr> <td>CO2 - Carbon Dioxide</td> <td>26 MEQ/L</td > <td>22-30</td> </tr> <tr> <td>Anion Gap</td> <td>11 MEQ/L</td><td&gt ;5-15</td> </tr> <tr> <td>BUN - Blood Urea Nitrogen</td> <td>17.0 MG/DL</td> <td>7-17</td></tr> <tr> <td> Glomerular Filtration Rate</td> <td>58 </td> <td>NRG</td> </tr> <tr> <td& gt;Glucose</td> <td>84 MG/DL</td> <td> 65-110</td> </tr> <tr> <td> Osmolality,Calculated</td><td>274 MOSM/KG</td> <td >261-280</td> </tr> <tr> <td> Calcium</td> <td>10.0 MG/DL</td> <td> 8.4-10.2</td> </tr> <tr> <td> Bilirubin,Total</td> <td>0.60 MG/DL</td> &lt ;td>0.20-1.30</td> </tr> <tr> <td >Alkaline Phosphatase</td> <td>97 U/L</td> <td>38-126</td> </tr> <tr> &lt ;td>AST - Aspartate Amino Transfer</td> <td>14 U/L</ td> <td>14-36</td> </tr> <tr> <td>ALT</td> <td>44 U/L</td> <td>9-52</td> </tr> <tr> <td>TP - Total Protein</td> <td>7.7 G/DL</td> < td>6.3-8.2</td> </tr> <tr> <td&gt ;Albumin Level</td> <td>4.5 G/DL</td> <td& gt;3.5-5.0</td> </tr> <tr> <td>Globulin& lt;/td> <td>3.2 G/DL</td> <td>2.4-3.6< /td> </tr> <tr> <td>Albumin/ Globulin Ratio</td> <td>1.4 RATIO</td> < td>1.1-2.2</td></tr> <tr> <td> LICTERUS</td> <td>< 2 </td> <td&gt ;0-7</td> </tr> <tr> <td> LHEMOLYSIS</td> <td>< 15 </td> <td >0-25</td> </tr> <tr> <td> LTURBIDITY</td> <td>< 20 </td> <td >0-20</td> </tr> <tr> <th colspan ="10">L200.0630 - 02/04/17 12:35</th> </tr> <tr> <td>Phosphorus</td> <td>4.4 MG/DL</td> <td>2.5-4.5</td> </tr> <tr> <th colspan="10">L200.199902/04/17 12: 35</th> </tr> <tr> <td>MAG - Magnesium</td> <td>2.1 MG/DL</td> <td> 1.6-2.3</td> </tr> <tr> <th colspan=& quot;10">L200.18502/04/17 12:35</th> </tr> <tr> <td>LDH - Lactate Dehydrogenase</td> <td>331 U/L</td> <td>313-618</td> </ tr> <tr> <th colspan="10">L200.38502/04/17 12:35</th> </tr> <tr> <td> TSH - Thyroid Stim Hormone</td> <td>29.20 MIU/L</td> <td>0.47-4.68</td> </tr> <tr> &lt ;th colspan="10">L100.0050 - 09/05/17 12:35</th> </ tr> <tr> <td>WBC - WHITE BLOOD COUNT</td> <td>20.0 T/MM3</td> <td>4.5-11.0</td> </tr> <tr> <td>RED BLOOD COUNT</td> <td>5.22 M/MM3</td> <td>4.00-5.20</td> </tr> <tr> <td>HGB - HEMOGLOBIN</td > <td>14.3 GM/DL</td> <td>12-16</td&gt ; </tr> <tr> <td>HCT - HEMATOCRIT</td& gt; <td>43.1 %</td> <td>36-46</td > </tr> <tr> <td>MEAN CORPUSCULAR VOLUME</td> <td>82.6 UM3</td> <td>80- 100</td> </tr> <tr> <td>MEAN CORPUSCULAR HGB</td> <td>27.4 UUG</td> <td> 26-34</td> </tr> <tr> <td>MEAN CORPUSCULAR HGB CONC(MCHC</td> <td>33.2 GM/DL</td> <td>31-37</td> </tr> <tr> <td>RDW STANDARD DEVIATION</td> <td>40.5 FL</td& gt; <td>36.9-50.2</td> </tr> <tr&gt ; <td>PLT - PLATELET COUNT</td> <td>397 T/MM3&lt ;/td> <td>130-400</td> </tr><tr> <td>MEAN PLATELET VOLUME</td> <td>9.5 UM3</ td> <td>9.4-12.4</td> </tr> <tr&gt ; <th colspan="10">L100.0105 - 02/04/17 12:35</th&gt ; </tr> <tr> <td>NEUTROPHILS % (MANUAL)</td> <td>64.0 %</td> <td>33 -66</td> </tr> <tr> <td>BAND NEUTROPHILS %</td> <td>3.0 %</td> <td>0-6</td> </tr> <tr> & lt;td>LYMPHOCYTES % (MANUAL)</td> <td>24.0 &#37 ;</td> <td>23-45</td> </tr> <tr&gt ; <td>MONOCYTES % (MANUAL)</td> <td> 4.0 %</td> <td>0-9.0</td> </tr> <tr> <td>EOSINOPHILS % (MANUAL)</td> <td>5.0 %</td> <td>0-4</td> & lt;/tr> <tr> <td>PROLYMPHOCYTES %</td& gt; <td>12.8 T/MM3</td> <td>1.8-7.7</td& gt; </tr> <tr> <td>PLASMA CELLS %&lt ;/td> <td>0.6 T/MM3</td> <td>NRG</td& gt; </tr> <tr> <td>NEUTROPHILS # (MANUAL)< /td> <td>0.8 T/MM3</td> <td>0-0.8</td& gt; </tr> <tr> <td>MONOCYTES # (MANUAL) </td> <td>1.0 T/MM3</td> <td>0-0.5< /td> </tr> <tr> <td>Lymphocytes # ( Manual)</td> <td>4.8 T/MM3</td> <td>1- 4.8</td> </tr> <tr> <td>LRBCMOR& lt;/td> <td>Normal </td> <td>NRG</td& gt; </tr> <tr> <th colspan="10"> L200.3600 - 02/04/17 12:35</th> </tr> <tr> <td>Free T4 (Free Thyroxine)-Batch</td> <td> 0.67 NG/DL</td> <td>0.78-2.19</td> </tr&gt ; <tr> <th colspan="10">L750.0200 - 12:35</th> </tr> <tr> <td> LACTH-A</td> <td>12pg/mL</td> <td>NRG& lt;/td> </tr> <tr> <th colspan="10 ">L750.2986 - 02/04/17 12:35</th> </tr> <tr > <td>Cortisol PM, Serum - AMS</td> <td> 6 </td> <td>NRG</td> </tr> <tr > <th colspan="10">CBC With Platelet and Differential - 02/06/17 18:40</th> </tr> <tr> <td>Absolute Basophils</td> <td>0.04 10*3/uL& lt;/td> <td>0.00-0.20</td> </tr> <tr> <td>Absolute Eosinophils</td> <td>0.67 10*3/ uL</td> <td>0.00-0.50</td> </tr> <tr> <td>Absolute Lymphocytes</td> <td&gt ;3.33 10*3/uL</td> <td>0.80-3.30</td> </tr& gt; <tr> <td>Absolute Monocytes</td> <td>0.76 10*3/uL</td> <td>0.30-1.00</td> & lt;/tr> <tr> <td>Absolute Neutrophils</td> <td>10.93 10*3/uL</td> <td>1.90-7.00</td > </tr> <tr> <td>Basophils</td&gt ; <td>0 %</td> <td>0-2</td> </tr> <tr> <td>Eosinophils</td> <td>4 %</td> <td>0-4</td> &lt ;/tr> <tr> <td>HCT</td> <td> 43.7 %</td> <td>37.0-47.0</td> </tr > <tr> <td>HGB</td> <td> 14.3 g/dL</td> <td>12.0-16.0</td> </tr> <tr> <td>Immature Granulocytes</td> <td>0.7 %</td> <td>0.0-1.0</td> </tr> <tr> <td>Lymphocytes</td> <td>21 %</td> <td>20-46</td> & lt;/tr> <tr> <td>MCH</td> <td& gt;27.4 pg</td> <td>27.0-32.0</td> </tr&gt ; <tr> <td>MCHC</td> <td>32.7 g /dL</td> <td>32.0-36.0</td> </tr> <tr> <td>MCV</td> <td>83.9 fL</td > <td>82.0-99.0</td> </tr> <tr&gt ; <td>Monocytes</td> <td>5 %</td& gt; <td>4-11</td> </tr> <tr> <td>MPV</td> <td>9.2 fL</td> &lt ;td>9.4-12.4</td> </tr> <tr> <td& gt;Neutrophils</td> <td>69 %</td> & lt;td>51-75</td> </tr> <tr> <td& gt;Nucleated RBC Automated</td> <td>0.0 /100 WBC</td&gt ; <td /> </tr> <tr> <td> Platelet Count</td> <td>334 K/uL</td> <td >150-400</td> </tr> <tr><td>RBC</td& gt; <td>5.21 10*6/uL</td> <td>4.00-5.20</ td> </tr> <tr> <td>RDW</td> <td>13.6 %</td> <td>11.5-14.5</td& gt; </tr> <tr> <td>WBC</td> <td>15.8 K/uL</td> <td>4.8-10.8</td> & lt;/tr> <tr> <th colspan="10"> Comprehensive Metabolic Panel (CMP) - 02/06/17 18:40</th> </tr& gt; <tr> <td>Albumin</td> <td> 3.8 g/dL</td> <td>3.5-4.8</td> </tr> <tr> <td>Alkaline Phosphatase</td> < td>88 U/L</td> <td>26-104</td> </tr> <tr> <td>ALT (SGPT)</td> <td>21 U/L</td> <td>14-54</td> </tr> &lt ;tr> <td>Anion Gap</td> <td>11 mEq/L</ td> <td>3-20</td> </tr> <tr> <td>AST (SGOT)</td> <td>18 U/L</td> <td>15-41</td> </tr> <tr> & lt;td>Bilirubin Total</td> <td>0.3 mg/dL</td> &lt ;td>0.2-1.2</td> </tr> <tr> <td& gt;BUN</td> <td>13 mg/dL</td> <td>4-20 </td> </tr> <tr> <td>Calcium</ td> <td>9.2 mg/dL</td> <td>8.6-10.0</ td> </tr> <tr> <td>Chloride</td& gt; <td>102 mEq/L</td> <td>99-109</td&gt ; </tr> <tr> <td>CO2</td> <td>23 mEq/L</td> <td>22-32</td> < /tr> <tr> <td>Creatinine</td> <td >1.10 mg/dL</td> <td>0.44-1.03</td> </tr > <tr> <td>Globulin</td> <td>2.8 g /dL</td> <td>1.9-4.3</td> </tr> & lt;tr> <td>Glucose</td> <td>132 mg/dL< /td> <td>70-100</td> </tr> <tr&gt ; <td>Potassium</td> <td>3.6 mEq/L</td> <td>3.6-5.1</td> </tr> <tr> &lt ;td>Protein</td> <td>6.6 g/dL</td> <td >6.1-7.9</td> </tr> <tr> <td> Sodium</td> <td>136 mEq/L</td> <td>136- 144</td> </tr> <tr> <th colspan="10& quot;>eGFR - 02/06/17 18:40</th> </tr> <tr> <td>eGFR</td> <td>58 mL/min</td> <td>>60</td> </tr> <tr> <th colspan="10">Troponin - 02/06/17 18:40</th> &lt ;/tr> <tr> <td>Troponin</td> < td><0.05 ng/mL</td> <td><0.06</td> </tr> <tr> <th colspan="10"> CBC With Platelet and Differential - 02/07/17 06:51</th> </tr&gt ; <tr> <td>Absolute Basophils</td> <td >0.04 10*3/uL</td> <td>0.00-0.20</td> </ tr> <tr> <td>Absolute Eosinophils</td> <td>0.75 10*3/uL</td> <td>0.00-0.50</td> </tr> <tr> <td>Absolute Lymphocytes</td > <td>2.84 10*3/uL</td> <td>0.80-3.30< /td> </tr> <tr> <td>Absolute Monocytes</td> <td>0.97 10*3/uL</td> <td>0.30 -1.00</td> </tr> <tr> <td> Absolute Neutrophils</td> <td>9.48 10*3/uL</td> <td>1.90-7.00</td> </tr> <tr> <td>Basophils</td> <td>0%</td> <td>0-2</td> </tr> <tr><td> Eosinophils</td> <td>5 %</td> <td >0-4</td> </tr> <tr> <td>HCT& lt;/td> <td>42.9 %</td> <td>37.0- 47.0</td> </tr> <tr> <td>HGB</td > <td>13.9 g/dL</td> <td>12.0-16.0</td > </tr> <tr> <td>Immature Granulocytes</td> <td>0.7 %</td> < td>0.0-1.0</td> </tr> <tr> <td> Lymphocytes</td> <td>20 %</td> < td>20-46</td> </tr> <tr> <td> MCH</td> <td>27.1 pg</td> <td>27.0- 32.0</td> </tr> <tr> <td>MCHC< /td> <td>32.4 g/dL</td> <td>32.0-36.0</td& gt; </tr> <tr> <td>MCV</td> <td>83.8 fL</td> <td>82.0-99.0</td> </tr> <tr> <td>Monocytes</td> <td>7 %</td> <td>4-11</td> &lt ;/tr> <tr> <td>MPV</td> <td> 9.6 fL</td> <td>9.4-12.4</td> </tr> <tr> <td>Neutrophils</td> <td>67 & amp;#37;</td> <td>51-75</td> </tr> <tr> <td>Nucleated RBC Automated</td> &lt ;td>0.0 /100 WBC</td> <td /> </tr> & lt;tr> <td>Platelet Count</td> <td>315 K/ uL</td> <td>150-400</td> </tr> & lt;tr> <td>RBC</td> <td>5.12 10*6/uL</ td> <td>4.00-5.20</td> </tr> <tr& gt; <td>RDW</td> <td>13.8 %</td& gt; <td>11.5-14.5</td> </tr> <tr&gt ; <td>WBC</td> <td>14.2 K/uL</td> &lt ;td>4.8-10.8</td> </tr> <tr> <th colspan="10">Basic Metabolic Panel (BMP) - 02/07/17 07:58</th&gt ; </tr> <tr> <td>AnionGap</td> <td>7 mEq/L</td> <td>3-20</td> & lt;/tr> <tr> <td>BUN</td> <td& gt;16 mg/dL</td> <td>4-20</td> </tr> & lt;tr> <td>Calcium</td> <td>9.0 mg/dL< /td> <td>8.6-10.0</td> </tr> <tr& gt; <td>Chloride</td> <td>105 mEq/L</td& gt; <td>99-109</td> </tr> <tr> <td>CO2</td> <td>24 mEq/L</td> & lt;td>22-32</td> </tr> <tr> <td> Creatinine</td> <td>1.16 mg/dL</td> <td> 0.44-1.03</td> </tr> <tr> <td> Glucose</td> <td>96 mg/dL</td> <td>70- 100</td> </tr> <tr> <td>Potassium </td> <td>4.3 mEq/L</td> <td>3.6-5.1& lt;/td> </tr> <tr> <td>Sodium</td > <td>136 mEq/L</td> <td>136-144</td& gt; </tr> <tr> <th colspan="10"& gt;eGFR - 02/07/17 07:58</th> </tr> <tr> <td>eGFR</td> <td>55 mL/min</td> & lt;td>>60</td> </tr> <tr> &lt ;th colspan="10">Glucose NPT - 02/13/17 11:32</th> & lt;/tr> <tr> <td>Glucose NPT</td> <td>97 mg/dL</td> <td>70-100</td> < /tr> <tr> <th colspan="10">L100.0050 - 02/18/17 10:45</th> </tr> <tr> <td& gt;WBC - WHITE BLOOD COUNT</td> <td>12.1 T/MM3</td> <td>4.5-11.0</td> </tr> <tr> <td>RED BLOOD COUNT</td> <td>4.91 M/MM3</td> <td>4.00-5.20</td> </tr> <tr> <td>HGB - HEMOGLOBIN</td> <td>13.7 GM/DL</td& gt; <td>12-16</td> </tr> <tr> <td>HCT - HEMATOCRIT</td> <td>40.8 %</ td> <td>36-46</td> </tr> <tr> <td>MEAN CORPUSCULAR VOLUME</td> <td>83.1 UM3&lt ;/td> <td>80-100</td> </tr> <tr& gt; <td>MEAN CORPUSCULAR HGB</td> <td>27.9 UUG& lt;/td> <td>26-34</td> </tr> <tr& gt; <td>MEAN CORPUSCULAR HGB CONC(MCHC</td> <td >33.6 GM/DL</td> <td>31-37</td> </tr> <tr> <td>RDW STANDARD DEVIATION</td> &lt ;td>41.8 FL</td> <td>36.9-50.2</td> </tr > <tr> <td>PLT - PLATELET COUNT</td> <td>358 T/MM3</td> <td>130-400</td> & lt;/tr> <tr> <td>MEAN PLATELET VOLUME</td> <td>9.0 UM3</td> <td>9.4-12.4</td> </tr> <tr> <td>NEUTROPHILS % ( AUTO)</td> <td>63.8 %</td> <td&gt ;33-66</td> </tr> <tr> <td> LYMPHOCYTES % (AUTO)</td> <td>19.7 %</td > <td>23-45</td> </tr> <tr> <td>MONOCYTES % (AUTO)</td> <td>4.7 & amp;#37;</td> <td>0-9.0</td> </tr> <tr> <td>EOSINOPHILS % (AUTO)</td> <td>11.2 %</td> <td>0-4</td> </tr> <tr> <td>BASOPHILS % (AUTO)</ td> <td>0.3 %</td> <td>0-2</td > </tr> <tr> <td>IMMATURE GRANULOCYTE &# 37; (AUTO)</td> <td>0.3 %</td> < td>0.0-0.5</td> </tr> <tr> <td&gt ;NEUTROPHILS # (AUTO)</td> <td>7.7 T/MM3</td> <td>1.8-7.7</td> </tr> <tr> & lt;td>LYMPHOCYTES # (AUTO)</td> <td>2.4 T/MM3</td> <td>1-4.8</td> </tr> <tr> < td>MONOCYTES # (AUTO)</td> <td>0.6 T/MM3</td> &lt ;td>0-0.8</td> </tr> <tr> <td> EOSINOPHILS # (AUTO)</td> <td>1.4 T/MM3</td> <td>0-0.5</td> </tr> <tr> < td>BASOPHILS # (AUTO)</td> <td>0.0 T/MM3</td> <td>0-0.2</td> </tr> <tr> & lt;td>IMMATURE GRANULOCYTE # (AUTO)</td> <td>0.04 T/MM3& lt;/td> <td>0.00-0.03</td> </tr> &lt ;tr> <th colspan="10">L200.0020 - 02/18/17 10:45< /th> </tr> <tr> <td>FUNGAL CULTURE.& lt;/td> <td>1.2 MG/DL</td> <td>0.7-1.2&lt ;/td> </tr> <tr> <td>FUNGAL CULTURE , BLOOD.</td> <td>8 RATIO</td> <td>6-26</td& gt; </tr> <tr> <td>NA - Sodium</td& gt; <td>143 MEQ/L</td> <td>134-144</td&gt ; </tr> <tr> <td>Potassium</td> <td>3.9 MEQ/L</td> <td>3.6-5</td> & lt;/tr> <tr> <td>Chloride</td> &lt ;td>104 MEQ/L</td> <td>98-107</td> </tr& gt; <tr> <td>CO2 - Carbon Dioxide</td> <td>26 MEQ/L</td> <td>22-30</td> < /tr> <tr> <td>Anion Gap</td> < td>13 MEQ/L</td> <td>5-15</td> </tr> <tr> <td>BUN - Blood Urea Nitrogen</td> <td>10.0 MG/DL</td> <td>7-17</td> &lt ;/tr> <tr> <td>Glomerular Filtration Rate</td& gt; <td>53 </td> <td>NRG</td> </tr& gt; <tr> <td>Glucose</td> <td>106 MG/DL</td> <td>65-110</td> </tr> <tr> <td>Osmolality,Calculated</td> <td&gt ;274 MOSM/KG</td> <td>261-280</td> </tr&gt ; <tr> <td>Calcium</td> <td>9.7 MG /DL</td> <td>8.4-10.2</td> </tr> <tr& gt; <td>Bilirubin,Total</td> <td>0.90 MG/DL& lt;/td> <td>0.20-1.30</td> </tr> <tr&gt ; <td>Alkaline Phosphatase</td> <td>88 U/L& lt;/td> <td>38-126</td> </tr> <tr ><td>AST - Aspartate Amino Transfer</td> <td>19 U/ L</td> <td>14-36</td> </tr> < tr> <td>ALT</td> <td>38 U/L</td> <td>9-52</td> </tr> <tr> <td& gt;TP - Total Protein</td> <td>7.3 G/DL</td> <td>6.3-8.2</td> </tr> <tr> &lt ;td>Albumin Level</td> <td>4.5 G/DL</td> <td>3.5-5.0</td> </tr> <tr> < td>Globulin</td> <td>2.8 G/DL</td> <td> 2.4-3.6</td> </tr> <tr> <td> Albumin/Globulin Ratio</td> <td>1.6 RATIO</td> <td>1.1-2.2</td> </tr> <tr> & lt;td>LICTERUS</td> <td>< 2 </td> <td>0-7</td> </tr> <tr> <td&gt ;LHEMOLYSIS</td> <td>< 15 </td> < td>0-25</td> </tr> <tr> <td> LTURBIDITY</td> <td>< 20 </td> <td >0-20</td> </tr> <tr> <th colspan=& quot;10">L200.199902/18/17 10:45</th> </tr> < tr> <td>MAG - Magnesium</td> <td>1.9 MG/ DL</td> <td>1.6-2.3</td> </tr> < tr> <th colspan="10">L200.185402/18/17 10:45</ th> </tr> <tr> <td>LDH - Lactate Dehydrogenase</td> <td>388 U/L</td> <td& gt;313-618</td> </tr> <tr> <th colspan="10">L200.0630 - 02/18/17 10:45</th> </tr& gt; <tr> <td>Phosphorus</td> <td& gt;3.6 MG/DL</td> <td>2.5-4.5</td> </tr&gt ; <tr> <th colspan="10">L100.0050 - 13:40</th> </tr> <tr> <td>WBC - WHITE BLOOD COUNT</td> <td>14.5 T/MM3</td> &lt ;td>4.5-11.0</td> </tr> <tr> <td> RED BLOOD COUNT</td> <td>4.87 M/MM3</td> < td>4.00-5.20</td> </tr> <tr> <td& gt;HGB -HEMOGLOBIN</td> <td>13.5 GM/DL</td> <td>12-16</td> </tr> <tr> <td> HCT - HEMATOCRIT</td> <td>40.3 %</td> <td>36-46</td> </tr> <tr> <td& gt;MEAN CORPUSCULAR VOLUME</td> <td>82.8 UM3</td> <td>80-100</td> </tr> <tr> <td>MEAN CORPUSCULAR HGB</td> <td>27.7 UUG</td& gt; <td>26-34</td> </tr> <tr> <td>MEAN CORPUSCULAR HGB CONC(MCHC</td> <td> 33.5 GM/DL</td> <td>31-37</td> </tr> <tr> <td>RDW STANDARD DEVIATION</td> < td>42.4 FL</td> <td>36.9-50.2</td> </tr& gt; <tr> <td>PLT - PLATELET COUNT</td> <td>320 T/MM3</td> <td>130-400</td> & lt;/tr> <tr> <td>MEAN PLATELET VOLUME</td> <td>9.3 UM3</td> <td>9.4-12.4</td> </tr> <tr> <td>NEUTROPHILS % (AUTO)</ td> <td>67.7 %</td> <td>33-66</td&gt ; </tr> <tr> <td>LYMPHOCYTES % (AUTO)</td> <td>19.7 %</td> <td& gt;23-45</td> </tr> <tr> <td> MONOCYTES % (AUTO)</td> <td>6.1 %</td> <td>0-9.0</td> </tr> <tr> & lt;td>EOSINOPHILS % (AUTO)</td> <td>5.9 &#37 ;</td> <td>0-4</td> </tr> <tr& gt; <td>BASOPHILS % (AUTO)</td> <td> 0.3 %</td> <td>0-2</td> </tr> <tr> <td>IMMATURE GRANULOCYTE % (AUTO)</td > <td>0.3 %</td> <td>0.0-0.5</ td> </tr> <tr> <td>NEUTROPHILS # ( AUTO)</td> <td>9.8 T/MM3</td> <td>1.8-7.7</ td> </tr> <tr> <td>LYMPHOCYTES # ( AUTO)</td> <td>2.9 T/MM3</td> <td>1-4.8&lt ;/td> </tr> <tr> <td>MONOCYTES #( AUTO)</td> <td>0.9 T/MM3</td> <td>0- 0.8</td></tr> <tr> <td>EOSINOPHILS # ( AUTO)</td> <td>0.9 T/MM3</td> <td>0- 0.5</td> </tr> <tr> <td>BASOPHILS # (AUTO) </td> <td>0.0 T/MM3</td> <td>0-0.2< /td> </tr> <tr> <td>IMMATURE GRANULOCYTE # (AUTO)</td> <td>0.04 T/MM3</td> <td>0.00-0.03</td> </tr> <tr> <th colspan="10">L200.0020 - 03/05/17 13:40</th> & lt;/tr> <tr> <td>FUNGAL CULTURE.</td> <td>1.2 MG/DL</td> <td>0.7-1.2</td> </tr> <tr> <td>FUNGAL CULTURE, BLOOD.</td > <td>13 RATIO</td> <td>6-26</td> </tr> <tr> <td>NA - Sodium</td> <td>142 MEQ/L</td> <td>134-144</td> & lt;/tr> <tr> <td>Potassium</td> & lt;td>3.6 MEQ/L</td> <td>3.6-5</td> </tr > <tr> <td>Chloride</td> <td&gt ;106 MEQ/L</td> <td>98-107</td> </tr> <tr> <td>CO2 - Carbon Dioxide</td> &lt ;td>25 MEQ/L</td> <td>22-30</td> </tr&gt ; <tr> <td>Anion Gap</td> <td> 11 MEQ/L</td> <td>5-15</td> </tr> & lt;tr> <td>BUN - Blood Urea Nitrogen</td><td>15.0 MG/DL</td> <td>7-17</td> </tr> & lt;tr> <td>Glomerular Filtration Rate</td> < td>53 </td> <td>NRG</td> </tr> <tr& gt; <td>Glucose</td> <td>100 MG/DL</td&gt ; <td>65-110</td> </tr> <tr> <td>Osmolality,Calculated</td> <td>274 MOSM/KG</td > <td>261-280</td> </tr> <tr> <td>Calcium</td> <td>9.3 MG/DL</td> <td>8.4-10.2</td> </tr> <tr> <td>Bilirubin,Total</td> <td>0.70 MG/DL</td> <td>0.20-1.30</td> </tr> <tr> <td>Alkaline Phosphatase</td> <td>82 U/L</td&gt ; <td>38-126</td> </tr> <tr> <td>AST - Aspartate Amino Transfer</td> <td>17 U/L</td> <td>14-36</td> </tr> &lt ;tr> <td>ALT</td> <td>37 U/L</td> <td>9-52</td> </tr> <tr> < td>TP - Total Protein</td> <td>7.1 G/DL</td> <td>6.3-8.2</td> </tr> <tr> <td>Albumin Level</td> <td>4.2 G/DL</td> <td>3.5-5.0</td> </tr> <tr> & lt;td>Globulin</td> <td>2.9 G/DL</td> &lt ;td>2.4-3.6</td> </tr> <tr> <td&gt ;Albumin/Globulin Ratio</td> <td>1.4 RATIO</td> <td>1.1-2.2</td> </tr> <tr> <td>LICTERUS</td> <td>< 2 </td> <td>0-7</td> </tr> <tr> <td& gt;LHEMOLYSIS</td> <td>< 15 </td> <td> 0-25</td> </tr> <tr> <td> LTURBIDITY</td> <td>< 20 </td><td>0-20& lt;/td> </tr> <tr> <th colspan="10 ">L200.0630 - 03/05/17 13:40</th> </tr> <tr > <td>Phosphorus</td> <td>3.0 MG/DL</ td> <td>2.5-4.5</td> </tr> <tr> <th colspan="10">L200.1999 - 03/05/17 13:40</th> </tr> <tr> <td>MAG - Magnesium</td&gt ; <td>2.1 MG/DL</td> <td>1.6-2.3</td> </tr> <tr> <th colspan="10"> L200.1855 - 03/05/17 13:40</th> </tr> <tr> <td>LDH - Lactate Dehydrogenase</td> <td>412 U/L </td> <td>313-618</td> </tr> < tr> <th colspan="10">L200.3850 - 03/05/17 13:40</th> </tr> <tr> <td>TSH - Thyroid Stim Hormone</td> <td>19.20 MIU/L</td> <td> 0.47-4.68</td> </tr> <tr> <th colspan="10">L200.3600 - 03/05/17 13:40</th> </tr& gt; <tr> <td>Free T4 (Free Thyroxine)-Batch</td&gt ; <td>1.18 NG/DL</td> <td>0.78-2.19</td&gt ; </tr> <tr> <th colspan="10"&gt ;L902.5645 - 03/05/17 13:40</th> </tr> <tr> < td>Cortisol Random, Serum - AMS</td> <td>6 ug/dL</td& gt; <td>3-20</td> </tr> <tr> <th colspan="10">L100.0050 - 10/13/17 11:20</th> </tr> <tr> <td>WBC -WHITE BLOOD COUNT< /td> <td>10.8 T/MM3</td> <td>4.5-11.0< /td> </tr> <tr> <td>RED BLOOD COUNT& lt;/td> <td>5.06 M/MM3</td> <td>4.00-5.20 </td> </tr> <tr> <td>HGB - HEMOGLOBIN</td> <td>14.0 GM/DL</td> <td>12-16 </td> </tr> <tr> <td>HCT - HEMATOCRIT</td> <td>41.9 %</td> < td>36-46</td></tr> <tr> <td>MEAN CORPUSCULAR VOLUME</td> <td>82.8 UM3</td> & lt;td>80-100</td> </tr> <tr> <td> MEAN CORPUSCULAR HGB</td> <td>27.7 UUG</td> <td>26-34</td> </tr> <tr> <td& gt;MEAN CORPUSCULAR HGB CONC(MCHC</td> <td>33.4 GM/DL</ td> <td>31-37</td></tr> <tr> <td>RDW STANDARD DEVIATION</td> <td>43.0 FL</td& gt; <td>36.9-50.2</td> </tr> <tr&gt ; <td>PLT - PLATELET COUNT</td> <td>328 T/MM3< /td> <td>130-400</td> </tr> <tr& gt; <td>MEAN PLATELET VOLUME</td> <td>9.2 UM3</td> <td>9.4-12.4</td> </tr> <tr> <td>NEUTROPHILS % (AUTO)</td> & lt;td>63.4 %</td> <td>33-66</td> & lt;/tr> <tr> <td>LYMPHOCYTES % (AUTO)</ td> <td>23.3 %</td> <td>23-45< /td> </tr> <tr> <td>MONOCYTES &# 37; (AUTO)</td> <td>6.2 %</td> < td>0-9.0</td> </tr> <tr> <td> EOSINOPHILS % (AUTO)</td> <td>6.6 %</td& gt; <td>0-4</td> </tr> <tr> <td>BASOPHILS % (AUTO)</td> <td>0.4 &amp ;#37;</td> <td>0-2</td> </tr> &lt ;tr> <td>IMMATURE GRANULOCYTE % (AUTO)</td> <td>0.1 %</td> <td>0.0-0.5</td> </tr> <tr> <td>NEUTROPHILS # (AUTO)</ td> <td>6.9 T/MM3</td> <td>1.8-7.7</td > </tr> <tr> <td>LYMPHOCYTES # (AUTO )</td> <td>2.5 T/MM3</td> <td>1-4.8&lt ;/td> </tr> <tr> <td>MONOCYTES # ( AUTO)</td> <td>0.7 T/MM3</td> <td>0- 0.8</td> </tr> <tr> <td> EOSINOPHILS # (AUTO)</td> <td>0.7 T/MM3</td> <td>0-0.5</td> </tr> <tr> < td>BASOPHILS # (AUTO)</td> <td>0.0 T/MM3</td> <td>0-0.2</td> </tr> <tr> & lt;td>IMMATURE GRANULOCYTE # (AUTO)</td> <td>0.01 T/MM3& lt;/td> <td>0.00-0.03</td> </tr> &lt ;tr> <th colspan="10">L200.2000 - 03/14/17 11:20< /th> </tr> <tr> <td>MAG - Magnesium& lt;/td> <td>1.9 MG/DL</td> <td>1.6-2.3&lt ;/td> </tr> <tr> <th colspan="10& quot;>L200.1855 - 03/14/17 11:20</th> </tr> <tr& gt; <td>LDH - Lactate Dehydrogenase</td> <td&gt ;413 U/L</td> <td>313-618</td> </tr> <tr> <th colspan="10">L100.0050 - 10 11:23</th> </tr> <tr> <td>WBC - WHITE BLOOD COUNT</td> <td>10.9 T/MM3</td> & lt;td>4.5-11.0</td> </tr> <tr> < td>RED BLOOD COUNT</td> <td>5.11 M/MM3</td> <td >4.00-5.20</td> </tr> <tr> <td&gt ;HGB - HEMOGLOBIN</td> <td>14.1 GM/DL</td> & lt;td>12-16</td> </tr> <tr> <td& gt;HCT - HEMATOCRIT</td> <td>42.4 %</td> <td>36-46</td> </tr> <tr><td> MEAN CORPUSCULAR VOLUME</td> <td>83.0 UM3</td> <td>80-100</td> </tr> <tr> & lt;td>MEAN CORPUSCULAR HGB</td> <td>27.6 UUG</td> <td>26-34</td> </tr> <tr> <td>MEAN CORPUSCULAR HGB CONC(MCHC</td> <td>33.3 GM/DL</td> <td>31-37</td> </tr> & lt;tr><td>RDW STANDARD DEVIATION</td> <td>42.9 FL& lt;/td> <td>36.9-50.2</td> </tr> &lt ;tr> <td>PLT - PLATELET COUNT</td> <td> 341 T/MM3</td> <td>130-400</td> </tr> <tr> <td>MEAN PLATELET VOLUME</td> &lt ;td>9.4 UM3</td> <td>9.4-12.4</td> </tr& gt; <tr> <td>NEUTROPHILS % (AUTO)</td&gt ; <td>64.2 %</td> <td>33-66</td& gt; </tr> <tr> <td>LYMPHOCYTES &#37 ; (AUTO)</td> <td>23.2 %</td> <td >23-45</td> </tr> <tr> <td> MONOCYTES % (AUTO)</td> <td>6.6 %</td> <td>0-9.0</td> </tr> <tr> < td>EOSINOPHILS % (AUTO)</td> <td>5.4 %& lt;/td> <td>0-4</td> </tr> <tr&gt ; <td>BASOPHILS % (AUTO)</td> <td> 0.2 %</td> <td>0-2</td> </tr> <tr> <td>IMMATURE GRANULOCYTE %(AUTO)</td& gt; <td>0.4 %</td> <td>0.0-0.5</ td> </tr> <tr> <td>NEUTROPHILS # (AUTO )</td> <td>7.0 T/MM3</td> <td>1.8-7.7& lt;/td> </tr> <tr> <td>LYMPHOCYTES # (AUTO)</td> <td>2.5 T/MM3</td> <td>1- 4.8</td> </tr> <tr> <td> MONOCYTES # (AUTO)</td> <td>0.7 T/MM3</td> & lt;td>0-0.8</td> </tr> <tr> <td& gt;EOSINOPHILS # (AUTO)</td> <td>0.6 T/MM3</td> <td>0-0.5</td> </tr> <tr> & lt;td>BASOPHILS # (AUTO)</td> <td>0.0 T/MM3</td> <td>0-0.2</td> </tr> <tr> <td>IMMATURE GRANULOCYTE # (AUTO)</td> <td>0.04 T/ MM3</td> <td>0.00-0.03</td> </tr> <tr> <th colspan="10">L200.0020 - 10 11: 23</th> </tr> <tr> <td>FUNGAL CULTURE.</td> <td>1.1 MG/DL</td> <td> 0.7-1.2</td> </tr> <tr> <td>FUNGAL CULTURE, BLOOD.</td> <td>11 RATIO</td> < td>6-26</td> </tr> <tr> <td> NA - Sodium</td> <td>142 MEQ/L</td> <td& gt;134-144</td> </tr> <tr> <td> Potassium</td> <td>4.0 MEQ/L</td> <td>3.6-5& lt;/td> </tr> <tr> <td>Chloride</ td> <td>106 MEQ/L</td> <td>98-107</td& gt; </tr> <tr> <td>CO2 - Carbon Dioxide& lt;/td> <td>25 MEQ/L</td> <td>22-30</ td> </tr> <tr> <td>Anion Gap</td& gt; <td>11 MEQ/L</td> <td>5-15</td> </tr> <tr> <td>BUN - Blood Urea Nitrogen </td> <td>12.0 MG/DL</td> <td>7-17< /td> </tr> <tr> <td>Glomerular Filtration Rate</td> <td>58 </td> <td> NRG</td> </tr> <tr> <td>Glucose& lt;/td> <td>92 MG/DL</td> <td>65-110</td> </tr> <tr> <td>Osmolality,Calculated& lt;/td> <td>273 MOSM/KG</td> <td>261-280&lt ;/td> </tr> <tr> <td>Calcium</td& gt; <td>9.0 MG/DL</td> <td>8.4-10.2</td& gt; </tr> <tr> <td>Bilirubin,Total</ td> <td>0.60 MG/DL</td> <td>0.20-1.30< /td> </tr> <tr> <td>Alkaline Phosphatase</td> <td>85 U/L</td> <td> 38-126</td> </tr> <tr> <td>AST - Aspartate Amino Transfer</td> <td>18 U/L</td> <td>14-36</td> </tr> <tr> < td>ALT</td> <td>43 U/L</td> <td>9- 52</td> </tr> <tr> <td>TP - Total Protein</td> <td>7.3 G/DL</td> <td& gt;6.3-8.2</td> </tr> <tr> <td> Albumin Level</td> <td>4.3 G/DL</td> <td& gt;3.5-5.0</td> </tr> <tr> <td> Globulin</td> <td>3.0 G/DL</td> <td> 2.4-3.6</td> </tr> <tr> <td> Albumin/Globulin Ratio</td> <td>1.4 RATIO</td> <td>1.1-2.2</td> </tr> <tr> <td& gt;LICTERUS</td> <td>< 2 </td> <td >0-7</td> </tr> <tr> <td> LHEMOLYSIS</td> <td>< 15 </td> <td >0-25</td> </tr> <tr> <td> LTURBIDITY</td> <td>< 20 </td> <td >0-20</td> </tr> <tr> <th colspan ="10">L200.0630 - 03/19/17 11:23</th> </tr> <tr> <td>Phosphorus</td> <td>3.2 MG/DL</td> <td>2.5-4.5</td> </tr> <tr> <th colspan="10">L200.2000 - 03/19/17 11: 23</th> </tr> <tr> <td>MAG - Magnesium</td> <td>1.9 MG/DL</td> <td> 1.6-2.3</td> </tr> <tr> <th colspan=& quot;10">L200.1855 - 03/19/17 11:23</th> </tr> & lt;tr> <td>LDH - Lactate Dehydrogenase</td> &lt ;td>401 U/L</td> <td>313-618</td> </tr& gt; <tr> <th colspan="10">L200.3600 - 11:23</th> </tr> <tr> <td> Free T4 (Free Thyroxine)-Batch</td> <td>1.83 NG/DL</td& gt; <td>0.78-2.19</td> </tr> <tr&gt ; <th colspan="10">L750.0200 - 03/19/17 11:23</th&gt ; </tr> <tr> <td>LACTH-A</td> & lt;td>8.0 pg/mL</td> <td>NRG</td> </tr& gt; <tr> <th colspan="10">L902.5645 - 11:23</th> </tr> <tr> <td> Cortisol Random, Serum - AMS</td> <td>3 ug/dL</td> <td>3-20</td> </tr> <tr> <th colspan="10">L100.0050 - 03/27/17 11:25</th> & lt;/tr> <tr> <td>WBC - WHITE BLOOD COUNT</td& gt; <td>11.9 T/MM3</td> <td>4.5-11.0</td> </tr> <tr> <td>RED BLOOD COUNT</td&gt ; <td>5.16 M/MM3</td> <td>4.00-5.20</td> </tr> <tr> <td>HGB - HEMOGLOBIN</td& gt; <td>14.1 GM/DL</td> <td>12-16</td&gt ; </tr> <tr> <td>HCT - HEMATOCRIT</td> <td>42.6 %</td> <td>36-46</td&gt ; </tr> <tr> <td>MEAN CORPUSCULAR VOLUME</ td> <td>82.6 UM3</td> <td>80-100</td& gt; </tr> <tr> <td>MEAN CORPUSCULAR HGB </td> <td>27.3 UUG</td> <td>26-34</ td> </tr> <tr> <td>MEAN CORPUSCULAR HGB CONC(MCHC</td> <td>33.1 GM/DL</td> < td>31-37</td> </tr> <tr> <td>RDW STANDARD DEVIATION</td> <td>42.4 FL</td> &lt ;td>36.9-50.2</td> </tr> <tr> <td >PLT - PLATELET COUNT</td> <td>331 T/MM3</td> <td>130-400</td> </tr> <tr> <td>MEAN PLATELET VOLUME</td> <td>9.1 UM3</td&gt ; <td>9.4-12.4</td> </tr> <tr> <td>NEUTROPHILS % (AUTO)</td> <td> 66.4 %</td> <td>33-66</td> </tr> & lt;tr> <td>LYMPHOCYTES % (AUTO)</td> & lt;td>22.6 %</td> <td>23-45</td> & lt;/tr> <tr> <td>MONOCYTES % (AUTO)</ td> <td>6.0 %</td> <td>0-9.0</td&gt ; </tr> <tr> <td>EOSINOPHILS % (AUTO)& lt;/td> <td>4.4 %</td> <td>0-4&lt ;/td> </tr> <tr> <td>BASOPHILS & #37; (AUTO)</td> <td>0.3 %</td> < td>0-2</td> </tr> <tr> <td> IMMATURE GRANULOCYTE % (AUTO)</td> <td>0.3 &#37 ;</td> <td>0.0-0.5</td> </tr> &lt ;tr> <td>NEUTROPHILS # (AUTO)</td> <td> 7.9 T/MM3</td> <td>1.8-7.7</td> </tr> <tr> <td>LYMPHOCYTES # (AUTO)</td> &lt ;td>2.7 T/MM3</td> <td>1-4.8</td> </tr> <tr> <td>MONOCYTES # (AUTO)</td> <td& gt;0.7 T/MM3</td> <td>0-0.8</td> </tr> <tr> <td>EOSINOPHILS # (AUTO)</td> & lt;td>0.5T/MM3</td> <td>0-0.5</td> </tr& gt; <tr> <td>BASOPHILS # (AUTO)</td> <td>0.0 T/MM3</td> <td>0-0.2</td> </ tr> <tr> <td>IMMATURE GRANULOCYTE # (AUTO)</td > <td>0.04 T/MM3</td> <td>0.00-0.03</ td> </tr> <tr> <th colspan="10& quot;>L200.0020 - 03/27/17 11:25</th> </tr> <tr& gt; <td>FUNGAL CULTURE.</td> <td>1.1 MG/DL& lt;/td> <td>0.7-1.2</td> </tr> < tr> <td>FUNGAL CULTURE, BLOOD.</td> <td> 12 RATIO</td> <td>6-26</td> </tr> <tr& gt; <td>NA - Sodium</td> <td>141 MEQ/L</ td> <td>134-144</td> </tr> <tr&gt ; <td>Potassium</td> <td>4.2 MEQ/L</td&gt ; <td>3.6-5</td> </tr> <tr> <td>Chloride</td> <td>105 MEQ/L</td> <td>98-107</td> </tr> <tr> < td>CO2 - Carbon Dioxide</td> <td>26 MEQ/L</td> <td>22-30</td> </tr> <tr> <td>Anion Gap</td> <td>10 MEQ/L</td> & lt;td>5-15</td> </tr> <tr> <td>BUN - Blood Urea Nitrogen</td> <td>13.0 MG/DL</td> <td>7-17</td> </tr> <tr> < td>Glomerular Filtration Rate</td> <td>58 </td> <td>NRG</td> </tr> <tr> & lt;td>Glucose</td> <td>94 MG/DL</td> <td& gt;65-110</td> </tr> <tr> <td> Osmolality,Calculated</td> <td>271 MOSM/KG</td> <td>261-280</td> </tr> <tr> <td>Calcium</td> <td>9.4 MG/DL</td> & lt;td>8.4-10.2</td></tr> <tr> <td> Bilirubin,Total</td> <td>0.70 MG/DL</td> &lt ;td>0.20-1.30</td> </tr> <tr> <td> Alkaline Phosphatase</td> <td>87 U/L</td> & lt;td>38-126</td> </tr> <tr> <td& gt;AST - Aspartate Amino Transfer</td> <td>18 U/L</td&gt ; <td>14-36</td> </tr> <tr> <td>ALT</td> <td>39 U/L</td> <td>9- 52</td> </tr> <tr> <td>TP - Total Protein</td> <td>7.3 G/DL</td> <td& gt;6.3-8.2</td> </tr> <tr> <td> Albumin Level</td> <td>4.2 G/DL</td> <td& gt;3.5-5.0</td> </tr> <tr> <td> Globulin</td> <td>3.1 G/DL</td> <td> 2.4-3.6</td> </tr> <tr> <td>Albumin/ Globulin Ratio</td> <td>1.4 RATIO</td> < td>1.1-2.2</td> </tr> <tr> <td> LICTERUS</td> <td>< 2 </td> <td&gt ;0-7</td> </tr> <tr> <td> LHEMOLYSIS</td> <td>< 15 </td> <td >0-25</td> </tr> <tr> <td> LTURBIDITY</td> <td>< 20 </td> <td >0-20</td> </tr> <tr> <th colspan ="10">L200.199903/27/17 11:25</th> </tr> <tr> <td>MAG - Magnesium</td> <td> 1.9 MG/DL</td> <td>1.6-2.3</td> </tr> <tr> <th colspan="10">L200.18503/27/17 11: 25</th> </tr> <tr> <td>LDH - Lactate Dehydrogenase</td> <td>362 U/L</td> <td>313-618</td> </tr> <tr> < th colspan="10">L750.0200 - 03/27/17 15:45</th> </tr& gt; <tr> <td>LACTH-A</td> <td> 7.5 pg/mL</td> <td>NRG</td> </tr> <tr> <th colspan="10">L750.3828 - 03/27/17 15: 45</th> </tr> <tr> <td>Estradiol - AMS</td> <td>164 pg/mL</td> <td>NRG&lt ;/td> </tr> <tr> <th colspan="10& quot;>L750.4175 - 03/27/17 15:45</th> </tr> <tr& gt; <td>FSH Follicle Stim Horm - AMS</td> <td& gt;4.1 mIU/mL</td> <td>NRG</td> </tr> <tr> <td>LH Luteinizing Hormone - AMS</td> <td>9.9 mIU/mL</td> <td>NRG</td> </ tr> <tr> <th colspan="10">L750.2987 - 03/27/17 15:45</th> </tr> <tr> <td& gt;LCORTB-A</td> <td>7 ug/dL</td> <td>3 -20</td> </tr> <tr> <th colspan=& quot;10">L750.0340 - 03/27/17 15:45</th> </tr> <tr> <td>Aldosterone, Baseline - AMS</td> <td>12 ng/dL</td> <td><=21</td> & lt;/tr> <tr> <th colspan="10"> L750.2991 - 03/27/17 16:15</th> </tr> <tr> <td>DCHZY44-L</td> <td>27 ug/dL</td> <td>14-25</td> </tr> <tr> & lt;th colspan="10">L750.2992 - 03/27/17 16:46</th> &lt ;/tr> <tr> <td>LEZEY50-K</td> < td>24 ug/dL</td> <td>15-30</td> </tr&gt ; <tr> <th colspan="10">L750.0360 - 03/27/17 16: 46</th> </tr> <tr> <td> Aldosterone, 60 Min - AMS</td> <td>33 ng/dL</td> <td><=21</td> </tr> <tr> <th colspan="10">L100.0050 - 04/03/17 10:19</th> </tr> <tr> <td>WBC - WHITE BLOOD COUNT</ td> <td>13.0 T/MM3</td> <td>4.5-11.0</td> </tr> <tr> <td>RED BLOOD COUNT</td&gt ; <td>4.98 M/MM3</td> <td>4.00-5.20</td& gt;</tr> <tr> <td>HGB - HEMOGLOBIN</td> <td>13.8GM/DL</td> <td>12-16</td> </tr> <tr> <td>HCT - HEMATOCRIT</td&gt ; <td>41.2 %</td> <td>36-46</td& gt; </tr> <tr> <td>MEAN CORPUSCULAR VOLUME</td> <td>82.7 UM3</td> <td>80- 100</td> </tr> <tr> <td>MEAN CORPUSCULAR HGB</td> <td>27.7 UUG</td> < td>26-34</td> </tr> <tr> <td> MEAN CORPUSCULAR HGB CONC(MCHC</td> <td>33.5 GM/DL</td& gt; <td>31-37</td> </tr> <tr> <td>RDW STANDARD DEVIATION</td> <td>43.5 FL&lt ;/td> <td>36.9-50.2</td> </tr> < tr> <td>PLT - PLATELET COUNT</td> <td> 339 T/MM3</td> <td>130-400</td> </tr> <tr> <td>MEAN PLATELET VOLUME</td> &lt ;td>9.2 UM3</td> <td>9.4-12.4</td> </tr& gt; <tr> <td>NEUTROPHILS % (AUTO)</td&gt ; <td>67.7 %</td> <td>33-66</td& gt; </tr> <tr> <td>LYMPHOCYTES &#37 ; (AUTO)</td> <td>21.7 %</td> <td >23-45</td> </tr> <tr> <td> MONOCYTES % (AUTO)</td> <td>5.2 %</td&gt ; <td>0-9.0</td> </tr> <tr> <td>EOSINOPHILS% (AUTO)</td> <td>4.7 &#37 ;</td> <td>0-4</td> </tr> <tr& gt; <td>BASOPHILS % (AUTO)</td> <td> 0.2 %</td> <td>0-2</td> </tr> & lt;tr> <td>IMMATURE GRANULOCYTE % (AUTO)</td> <td>0.5 %</td> <td>0.0-0.5</td&gt ; </tr> <tr> <td>NEUTROPHILS # (AUTO)</ td> <td>8.8 T/MM3</td> <td>1.8-7.7</td > </tr> <tr> <td>LYMPHOCYTES # (AUTO )</td> <td>2.8 T/MM3</td> <td>1-4.8&lt ;/td> </tr> <tr> <td>MONOCYTES # ( AUTO)</td> <td>0.7 T/MM3</td> <td>0- 0.8</td> </tr> <tr> <td> EOSINOPHILS # (AUTO)</td> <td>0.6 T/MM3</td> <td>0-0.5</td> </tr> <tr> < td>BASOPHILS # (AUTO)</td> <td>0.0 T/MM3</td> & lt;td>0-0.2</td> </tr> <tr> <td& gt;IMMATURE GRANULOCYTE # (AUTO)</td> <td>0.06 T/MM3</td > <td>0.00-0.03</td> </tr> <tr&gt ; <th colspan="10">L200.0020 - 04/03/17 10:19</th&gt ; </tr> <tr> <td>FUNGAL CULTURE.</td& gt; <td>1.1 MG/DL</td> <td>0.7-1.2</td&gt ; </tr> <tr> <td>FUNGAL CULTURE, BLOOD. </td> <td>10 RATIO</td> <td>6-26</ td> </tr> <tr> <td>NA - Sodium</ td> <td>141 MEQ/L</td> <td>134-144</td > </tr> <tr> <td>Potassium</td&gt ; <td>4.1 MEQ/L</td> <td>3.6-5</td> </tr> <tr> <td>Chloride</td> <td>106 MEQ/L</td> <td>98-107</td> </tr> <tr> <td>CO2 - Carbon Dioxide</td&gt ; <td>23 MEQ/L</td> <td>22-30</td> </tr> <tr> <td>Anion Gap</td> <td>12 MEQ/L</td> <td>5-15</td> &lt ;/tr> <tr> <td>BUN - Blood Urea Nitrogen</td& gt; <td>11.0 MG/DL</td> <td>7-17</td> </tr> <tr> <td>Glomerular Filtration Rate</td> <td>58 </td> <td>NRG</td& gt; </tr> <tr> <td>Glucose</td> <td>94 MG/DL</td> <td>65-110</td> </ tr> <tr> <td>Osmolality,Calculated</td> <td>270 MOSM/KG</td> <td>261-280</td> </tr> <tr> <td>Calcium</td> <td>8.9 MG/DL</td> <td>8.4-10.2</td> &lt ;/tr> <tr> <td>Bilirubin,Total</td> <td>0.40 MG/DL</td> <td>0.20-1.30</td> </tr> <tr> <td>Alkaline Phosphatase</td& gt; <td>81 U/L</td> <td>38-126</td> </tr> <tr> <td>AST - Aspartate Amino Transfer</td> <td>17 U/L</td> <td>14- 36</td> </tr> <tr> <td>ALT</td > <td>37 U/L</td> <td>9-52</td> </tr> <tr> <td>TP - Total Protein</td& gt; <td>7.4 G/DL</td> <td>6.3-8.2</td&gt ; </tr> <tr> <td>Albumin Level</td& gt; <td>4.2 G/DL</td> <td>3.5-5.0</td&gt ; </tr> <tr> <td>Globulin</td> <td>3.2G/DL</td> <td>2.4-3.6</td> </tr> <tr> <td>Albumin/Globulin Ratio</ td> <td>1.3 RATIO</td> <td>1.1-2.2</td > </tr> <tr> <td>LICTERUS</td&gt ; <td>< 2 </td> <td>0-7</td> & lt;/tr> <tr> <td>LHEMOLYSIS</td> & lt;td>< 15 </td> <td>0-25</td> </ tr> <tr> <td>LTURBIDITY</td> < td>< 20 </td> <td>0-20</td> </tr& gt; <tr> <th colspan="10">L200.2000 - 10:19</th> </tr> <tr> <td>MAG - Magnesium</td> <td>1.9MG/DL</td> <td> 1.6-2.3</td> </tr> <tr><th colspan="10& quot;>L200.1855 - 04/03/17 10:19</th> </tr> <tr& gt; <td>LDH - Lactate Dehydrogenase</td> <td&gt ;351 U/L</td> <td>313-618</td> </tr> <tr> <th colspan="10">L200.3850 - 04/03/17 10:19</th> </tr> <tr> <td>TSH - Thyroid Stim Hormone</td> <td>32.50 MIU/L</td> < td>0.47-4.68</td> </tr> <tr> <th colspan="10">L750.0200 - 04/03/17 10:19</th> </tr& gt; <tr> <td>LACTH-A</td> <td> 10 pg/mL</td> <td>NRG</td> </tr> <tr> <th colspan="10">L750.2985 - 04/03/17 10:19& lt;/th> </tr> <tr> <td>Cortisol AM, Serum - AMS</td> <td>5 ug/dL</td> <td>3- 20</td> </tr> <tr> <th colspan=&quot ;10">L200.3600 - 04/03/17 10:19</th> </tr> &lt ;tr> <td>Free T4 (Free Thyroxine)-Batch</td> & lt;td>0.86 NG/DL</td> <td>0.78-2.19</td> & lt;/tr> <tr> <th colspan="10"> L100.0050 - 04/06/17 12:23</th> </tr> <tr> <td>WBC - WHITE BLOOD COUNT</td> <td>14.6 T/MM3&lt ;/td> <td>4.5-11.0</td> </tr> <tr > <td>RED BLOOD COUNT</td> <td>4.99 M/MM3 </td> <td>4.00-5.20</td> </tr> & lt;tr> <td>HGB - HEMOGLOBIN</td> <td>13.7 GM/DL </td> <td>12-16</td> </tr> <tr > <td>HCT - HEMATOCRIT</td> <td>41.5 &amp ;#37;</td> <td>36-46</td> </tr> &lt ;tr> <td>MEAN CORPUSCULAR VOLUME</td> <td&gt ;83.2 UM3</td> <td>80-100</td> </tr> <tr> <td>MEAN CORPUSCULAR HGB</td> < td>27.5 UUG</td> <td>26-34</td> </tr&gt ; <tr> <td>MEAN CORPUSCULAR HGB CONC(MCHC</td> <td>33.0 GM/DL</td> <td>31-37</td> </tr> <tr> <td>RDW STANDARD DEVIATION</td > <td>44.0 FL</td> <td>36.9-50.2</td& gt; </tr> <tr> <td>PLT - PLATELET COUNT </td> <td>309 T/MM3</td> <td>130-400& lt;/td> </tr> <tr> <td>MEAN PLATELET VOLUME</td> <td>9.2 UM3</td> <td >9.4-12.4</td> </tr> <tr> <td> NEUTROPHILS % (AUTO)</td> <td>70.3 %</td > <td>33-66</td> </tr> <tr> <td>LYMPHOCYTES % (AUTO)</td> <td>19.4 %</td> <td>23-45</td> </tr> <tr> <td>MONOCYTES % (AUTO)</td> &lt ;td>4.8 %</td> <td>0-9.0</td> </ tr> <tr> <td>EOSINOPHILS % (AUTO)</td& gt; <td>4.8 %</td> <td>0-4</td&gt ; </tr> <tr> <td>BASOPHILS % ( AUTO)</td> <td>0.3 %</td> <td> 0-2</td> </tr> <tr> <td>IMMATURE GRANULOCYTE % (AUTO)</td> <td>0.4 %</td&gt ; <td>0.0-0.5</td> </tr> <tr> <td>NEUTROPHILS # (AUTO)</td> <td>10.3 T/MM3</ td> <td>1.8-7.7</td> </tr> <tr&gt ; <td>LYMPHOCYTES # (AUTO)</td> <td>2.8 T/ MM3</td> <td>1-4.8</td> </tr> &lt ;tr> <td>MONOCYTES # (AUTO)</td> <td>0.7 T/MM3< /td> <td>0-0.8</td> </tr> <tr&gt ; <td>EOSINOPHILS # (AUTO)</td> <td>0.7 T/ MM3</td> <td>0-0.5</td> </tr> <tr&gt ; <td>BASOPHILS # (AUTO)</td> <td>0.1 T/MM3& lt;/td> <td>0-0.2</td> </tr> <tr& gt; <td>IMMATURE GRANULOCYTE # (AUTO)</td> <td& gt;0.06 T/MM3</td> <td>0.00-0.03</td> </tr& gt; <tr> <th colspan="10">M110.0180 - 10/16 12:23</th> </tr> <tr> <td> ANTI-D</td> <td>No Growth After 5 Days </td> <td>NRG</td> </tr> <tr> <th colspan="10">L200.0020 - 04/06/17 12:23</th> </tr& gt; <tr> <td>FUNGAL CULTURE.</td> <td&gt ;1.0 MG/DL</td> <td>0.7-1.2</td> </tr> <tr> <td>FUNGAL CULTURE, BLOOD.</td> <td>9 RATIO</td> <td>6-26</td> </tr& gt; <tr> <td>NA - Sodium</td> <td> 139 MEQ/L</td> <td>134-144</td> </tr> <tr> <td>Potassium</td> <td>4.0 MEQ/ L</td> <td>3.6-5</td> </tr> < tr> <td>Chloride</td> <td>109 MEQ/L</ td> <td>98-107</td> </tr> <tr&gt ; <td>CO2 - Carbon Dioxide</td> <td>23 MEQ/L </td> <td>22-30</td> </tr> <tr& gt; <td>Anion Gap</td> <td>7 MEQ/L</td&gt ; <td>5-15</td> </tr> <tr> <td>BUN - Blood Urea Nitrogen</td> <td>9.0 MG/DL& lt;/td> <td>7-17</td> </tr> <tr& gt; <td>Glomerular Filtration Rate</td> <td> 65 </td> <td>NRG</td> </tr><tr> <td>Glucose</td> <td>110 MG/DL</td> <td>65-110</td> </tr> <tr> <td>Osmolality,Calculated</td> <td>268 MOSM/KG</ td> <td>261-280</td> </tr> <tr&gt ; <td>Calcium</td> <td>8.9 MG/DL</td> <td>8.4-10.2</td> </tr> <tr> <td>Bilirubin,Total</td> <td>0.30 MG/DL</td > <td>0.20-1.30</td> </tr> <tr&gt ; <td>Alkaline Phosphatase</td> <td>67 U/L</td& gt; <td>38-126</td> </tr> <tr> <td>AST - Aspartate Amino Transfer</td> <td> 13 U/L</td> <td>14-36</td> </tr> <tr> <td>ALT</td> <td>35 U/L</td&gt ; <td>9-52</td> </tr> <tr> & lt;td>TP - Total Protein</td> <td>6.9 G/DL</td> <td>6.3-8.2</td> </tr> <tr> <td>Albumin Level</td> <td>4.0 G/DL</td> <td>3.5-5.0</td> </tr> <tr> & lt;td>Globulin</td> <td>2.9 G/DL</td> &lt ;td>2.4-3.6</td> </tr> <tr> <td& gt;Albumin/Globulin Ratio</td> <td>1.4 RATIO</td> <td>1.1-2.2</td> </tr> <tr> <td>LICTERUS</td> <td>< 2 </td> <td>0-7</td> </tr> <tr> < td>LHEMOLYSIS</td> <td>< 15 </td> <td>0-25</td> </tr> <tr> <td& gt;LTURBIDITY</td> <td>< 20 </td> <td& gt;0-20</td> </tr> <tr> <th colspan= "10">L200.206604/06/17 12:23</th> </tr> <tr> <td>Lactate</td> <td>1.1 MMOL/ L</td> <td>0.6-2.2</td> </tr> &lt ;tr> <th colspan="10">L200.206704/06/17 12:23< /th> </tr> <tr> <td>Procalcitonin</td&gt ; <td>< 0.05 NG/ML</td> <td>NRG</ td> </tr> <tr> <th colspan="10& quot;>L600.9904/06/17 12:42</th> </tr> <tr& gt; <td>POTASSIUM</td> <td>Urine, Clean Catch </td> <td>NRG</td> </tr> <tr& gt; <td>CHLORIDE</td> <td>YELLOW </td&gt ; <td>YELLOW</td> </tr> <tr> <td>ANION GAP</td> <td>CLEAR </td> <td>NRG</td> </tr> <tr> < td>BLOOD UREA NITROGEN</td> <td>6.0 </td> <td>5.0-8.0</td> </tr> <tr> &lt ;td>BUN/CREATININE RATIO</td> <td>NEGATIVE </td> <td>NEGATIVE</td> </tr> <tr> <td>GLUCOSE</td> <td>NEGATIVE </td> <td>NEGATIVE</td> </tr> <tr> <td>CALCIUM</td> <td>NEGATIVE </td> <td>NEGATIVE</td> </tr> <tr> < td>BILIRUBIN, CONJUG &amp; UNCONJUG</td> <td> NEGATIVE </td> <td>NEGATIVE</td> </tr> <tr> <td>Specific [place],Urine</td> <td ><=1.005 </td> <td>1.015-1.025</td> </tr> <tr> <td>Leukocyte Esterase,Urine</td > <td>NEGATIVE </td> <td>NEGATIVE</td& gt; </tr> <tr> <td>Nitrate,Urine</td > <td>NEGATIVE </td> <td>NEGATIVE</td& gt; </tr> <tr> <td>Urobilinogen,Urine& lt;/td> <td>0.2 EU/DL</td> <td>NORMAL</td&gt ; </tr> <tr> <td>Occult Blood,Urine - Dipstick</td> <td>TRACE-INTACT </td> <td& gt;NEGATIVE</td> </tr> <tr> <td> Urine Microscopic (UA)</td> <td>Microscopic Not Ind. </ td> <td>NRG</td> </tr> <tr> <th colspan="10">L100.0050 - 04/10/17 12:04</th> </tr> <tr> <td>WBC - WHITE BLOOD COUNT& lt;/td> <td>15.3 T/MM3</td> <td>4.5-11.0& lt;/td> </tr> <tr> <td>RED BLOOD COUNT</td><td>5.08 M/MM3</td> <td>4.00-5.20< /td> </tr> <tr> <td>HGB - HEMOGLOBIN </td> <td>13.9 GM/DL</td> <td>12-16</td& gt; </tr> <tr> <td>HCT - HEMATOCRIT< /td> <td>41.9 %</td> <td>36-46&lt ;/td> </tr> <tr> <td>MEAN CORPUSCULAR VOLUME</td> <td>82.5 UM3</td> <td>80- 100</td> </tr> <tr> <td>MEAN CORPUSCULAR HGB</td> <td>27.4 UUG</td> < td>26-34</td> </tr> <tr> <td> MEAN CORPUSCULAR HGB CONC(MCHC</td> <td>33.2 GM/DL</td& gt; <td>31-37</td> </tr> <tr> & lt;td>RDW STANDARD DEVIATION</td> <td>43.6 FL</td&gt ; <td>36.9-50.2</td> </tr> <tr> <td>PLT - PLATELET COUNT</td> <td>347 T/MM3</ td> <td>130-400</td> </tr> <tr&gt ; <td>MEAN PLATELET VOLUME</td> <td>9.1 UM3& lt;/td> <td>9.4-12.4</td> </tr> < tr> <th colspan="10">L100.0105 - 04/10/17 12:04</ th> </tr> <tr> <td>NEUTROPHILS & #37; (MANUAL)</td> <td>68.0 %</td> & lt;td>33-66</td> </tr> <tr> <td&gt ;BAND NEUTROPHILS %</td> <td>1.0 %</td& gt; <td>0-6</td> </tr> <tr> <td>LYMPHOCYTES % (MANUAL)</td> <td> 17.0 %</td> <td>23-45</td> </tr> <tr> <td>MONOCYTES % (MANUAL)</td> & lt;td>4.0 %</td> <td>0-9.0</td> &lt ;/tr> <tr> <td>EOSINOPHILS % (MANUAL)< /td> <td>9.0 %</td> <td>0-4</td > </tr> <tr> <td>BASOPHILS % ( MANUAL)</td> <td>1.0 %</td> <td& gt;0-2</td> </tr> <tr> <td> PROLYMPHOCYTES %</td> <td>10.4 T/MM3</td> <td>1.8-7.7</td> </tr> <tr> <td>PLASMA CELLS %</td> <td>0.2 T/MM3</ td> <td>NRG</td> </tr> <tr> <td>NEUTROPHILS # (MANUAL)</td> <td>0.6 T/MM3& lt;/td> <td>0-0.8</td> </tr> <tr& gt; <td>MONOCYTES # (MANUAL)</td> <td>1.4 T/ MM3</td> <td>0-0.5</td> </tr> &lt ;tr> <td>BASOPHILS # (MANUAL)</td> <td>0.2 T/ MM3</td> <td>0-0.2</td> </tr> &lt ;tr> <td>Lymphocytes # (Manual)</td> <td> 2.6 T/MM3</td> <td>1-4.8</td> </tr> <tr> <td>LRBCMOR</td> <td>Normal &lt ;/td> <td>NRG</td> </tr> <tr> <th colspan="10">L200.0020 - 04/10/17 12:04</th> </tr> <tr> <td>FUNGAL CULTURE.</td> <td>1.2 MG/DL</td> <td>0.7-1.2</td> </tr> <tr> <td>FUNGAL CULTURE, BLOOD.</td> <td>11 RATIO</td> <td>6-26</td> </tr> <tr> <td>NA - Sodium</td> & lt;td>140 MEQ/L</td> <td>134-144</td> </ tr> <tr> <td>Potassium</td> <td >3.9 MEQ/L</td> <td>3.6-5</td> </tr> <tr> <td>Chloride</td> <td>104 MEQ/L</td> <td>98-107</td> </tr> <tr > <td>CO2 - Carbon Dioxide</td> <td>24 MEQ/L</td> <td>22-30</td> </tr> & lt;tr> <td>Anion Gap</td> <td>12 MEQ/L&lt ;/td> <td>5-15</td> </tr> <tr&gt ; <td>BUN - Blood Urea Nitrogen</td> <td> 13.0 MG/DL</td> <td>7-17</td> </tr> <tr><td>Glomerular Filtration Rate</td> <td&gt ;53 </td> <td>NRG</td> </tr> < tr> <td>Glucose</td> <td>93 MG/DL</td& gt; <td>65-110</td> </tr> <tr> <td>Osmolality,Calculated</td> <td>269 MOSM/ KG</td> <td>261-280</td> </tr> <tr&gt ; <td>Calcium</td> <td>9.7 MG/DL</td> <td>8.4-10.2</td> </tr> <tr> <td>Bilirubin,Total</td> <td>0.70 MG/DL</td > <td>0.20-1.30</td> </tr> <tr&gt ; <td>Alkaline Phosphatase</td> <td>71 U/L& lt;/td> <td>38-126</td> </tr> <tr > <td>AST - Aspartate Amino Transfer</td> < td>15 U/L</td> <td>14-36</td> </tr> <tr> <td>ALT</td> <td>35 U/L</td&gt ; <td>9-52</td> </tr> <tr> <td>TP - Total Protein</td> <td>7.5 G/DL</td& gt; <td>6.3-8.2</td> </tr> <tr> <td>Albumin Level</td> <td>4.3 G/DL</td> <td>3.5-5.0</td> </tr> <tr> <td>Globulin</td> <td>3.2 G/DL</td> <td>2.4-3.6</td> </tr> <tr> &lt ;td>Albumin/Globulin Ratio</td> <td>1.3 RATIO</td&gt ; <td>1.1-2.2</td> </tr> <tr> <td>LICTERUS</td> <td>< 2 </td> <td>0-7</td> </tr> <tr> <td>LHEMOLYSIS</td> <td>< 15 </td> <td>0-25</td> </tr> <tr> <td&gt ;LTURBIDITY</td> <td>< 20 </td> < td>0-20</td> </tr> <tr> <th colspan="10">L200.1999 - 04/10/17 12:04</th> </tr& gt; <tr> <td>MAG - Magnesium</td> &lt ;td>1.7 MG/DL</td> <td>1.6-2.3</td> </tr > <tr> <th colspan="10">L200.1854 - 02/16 12:04</th> </tr> <tr> <td> LDH - Lactate Dehydrogenase</td> <td>308 U/L</td> <td>313-618</td> </tr> <tr> & lt;th colspan="10">L200.1859 - 04/10/17 12:04</th> &lt ;/tr> <tr> <td>CRP - C-Reactive Protein</td&gt ; <td>7.6 MG/L</td> <td>0-9</td> </tr> <tr> <th colspan="10"> L600.010 - 04/10/17 12:07</th> </tr> <tr> <td>POTASSIUM</td> <td>Urine, Clean Catch </ td> <td>NRG</td> </tr> <tr> <td>CHLORIDE</td> <td>YELLOW </td> &lt ;td>YELLOW</td> </tr> <tr> <td> ANION GAP</td> <td>CLEAR </td> <td>NRG </td> </tr> <tr> <td>BLOOD UREA NITROGEN</td> <td>6.0 </td> <td>5.0- 8.0</td> </tr> <tr> <td>BUN/ CREATININE RATIO</td> <td>NEGATIVE </td> &lt ;td>NEGATIVE</td> </tr> <tr> <td& gt;GLUCOSE</td> <td>NEGATIVE </td> <td&gt ;NEGATIVE</td> </tr> <tr> <td> CALCIUM</td> <td>NEGATIVE </td> <td> NEGATIVE</td> </tr> <tr> <td> BILIRUBIN, CONJUG &amp; UNCONJUG</td> <td>NEGATIVE </td> <td>NEGATIVE</td> </tr> < tr> <td>Specific [place],Urine</td> <td>& amp;lt;=1.005 </td> <td>1.015-1.025</td> </ tr> <tr> <td>Leukocyte Esterase,Urine</td> <td>NEGATIVE </td> <td>NEGATIVE</td> </tr> <tr> <td>Nitrate,Urine</td&gt ; <td>NEGATIVE </td> <td>NEGATIVE</td&gt ; </tr> <tr> <td>Urobilinogen,Urine< /td> <td>0.2 EU/DL</td> <td>NORMAL</td > </tr> <tr> <td>Occult Blood,Urine - Dipstick</td> <td>NEGATIVE </td> <td> NEGATIVE</td> </tr> <tr> <td>Urine Microscopic (UA)</td> <td>Microscopic Not Ind. </td> <td>NRG</td> </tr> <tr> <th colspan="10">Glucose NPT - 04/14/17 13:46</th> </tr> <tr> <td>Glucose NPT</td> <td>93 mg/dL</td> <td>70-100</td> </tr> <tr> <th colspan="10"> L100.0050 - 04/17/17 10:37</th> </tr> <tr> <td>WBC- WHITE BLOOD COUNT</td> <td>12.8 T/MM3& lt;/td> <td>4.5-11.0</td> </tr> < tr> <td>RED BLOOD COUNT</td> <td>5.01 M/MM3</td > <td>4.00-5.20</td> </tr> <tr&gt ; <td>HGB - HEMOGLOBIN</td> <td>13.9 GM/DL& lt;/td> <td>12-16</td> </tr> <tr> <td>HCT - HEMATOCRIT</td> <td>41.7 % </td> <td>36-46</td> </tr> <tr> <td>MEAN CORPUSCULAR VOLUME</td> <td>83.2 UM3</td> <td>80-100</td> </tr> & lt;tr> <td>MEAN CORPUSCULAR HGB</td> <td> 27.7 UUG</td> <td>26-34</td> </tr> <tr> <td>MEAN CORPUSCULAR HGB CONC(MCHC</td> <td>33.3 GM/DL</td> <td>31-37</td> </ tr> <tr> <td>RDW STANDARD DEVIATION</td> <td>43.6 FL</td> <td>36.9-50.2</td> </tr> <tr> <td>PLT - PLATELET COUNT</td& gt; <td>347 T/MM3</td> <td>130-400</td&gt ; </tr> <tr> <td>MEAN PLATELET VOLUME& lt;/td> <td>9.0 UM3</td> <td>9.4-12.4< /td> </tr> <tr> <td>NEUTROPHILS &amp ;#37; (AUTO)</td> <td>62.3 %</td> & lt;td>33-66</td> </tr> <tr> <td& gt;LYMPHOCYTES % (AUTO)</td> <td>23.6 %< /td> <td>23-45</td> </tr> <tr&gt ; <td>MONOCYTES % (AUTO)</td> <td> 6.2 %</td> <td>0-9.0</td> </tr> <tr> <td>EOSINOPHILS % (AUTO)</td> <td>7.0 %</td> <td>0-4</td> </tr> <tr> <td>BASOPHILS % (AUTO) </td> <td>0.5%</td> <td>0-2&lt ;/td> </tr> <tr><td>IMMATURE GRANULOCYTE &amp ;#37; (AUTO)</td> <td>0.4 %</td> &lt ;td>0.0-0.5</td> </tr> <tr> <td& gt;NEUTROPHILS # (AUTO)</td> <td>8.0 T/MM3</td> <td>1.8-7.7</td> </tr> <tr> <td>LYMPHOCYTES # (AUTO)</td><td>3.0 T/MM3</td> <td>1-4.8</td> </tr> <tr> < td>MONOCYTES # (AUTO)</td> <td>0.8 T/MM3</td>< td>0-0.8</td> </tr> <tr> <td> EOSINOPHILS # (AUTO)</td> <td>0.9 T/MM3</td> <td>0-0.5</td> </tr> <tr> < td>BASOPHILS # (AUTO)</td> <td>0.1 T/MM3</td> <td>0-0.2</td> </tr> <tr> & lt;td>IMMATURE GRANULOCYTE # (AUTO)</td> <td>0.05 T/MM3& lt;/td> <td>0.00-0.03</td> </tr> &lt ;tr> <th colspan="10">L200.2000 - 04/17/17 10:37< /th> </tr> <tr> <td>MAG - Magnesium& lt;/td> <td>2.2 MG/DL</td> <td>1.6-2.3&lt ;/td> </tr> <tr> <th colspan="10& quot;>L200.0020 - 04/17/1710:37</th> </tr> <tr& gt; <td>FUNGAL CULTURE.</td> <td>1.2 MG/DL< /td> <td>0.7-1.2</td> </tr> <tr> <td>FUNGAL CULTURE, BLOOD.</td> <td>13 RATIO& lt;/td> <td>6-26</td> </tr> <tr& gt; <td>NA - Sodium</td> <td>141 MEQ/L</ td> <td>134-144</td> </tr> <tr> <td>Potassium</td> <td>3.9 MEQ/L</td> <td>3.6-5</td> </tr> <tr> & lt;td>Chloride</td> <td>107 MEQ/L</td> & lt;td>98-107</td> </tr> <tr> <td> CO2 - Carbon Dioxide</td> <td>25 MEQ/L</td> <td>22-30</td> </tr> <tr> <td> Anion Gap</td> <td>9 MEQ/L</td> <td>5- 15</td> </tr> <tr> <td>BUN - Blood Urea Nitrogen</td> <td>16.0 MG/DL</td> & lt;td>7-17</td> </tr><tr> <td> Glomerular Filtration Rate</td> <td>53 </td> <td>NRG</td> </tr> <tr> <td& gt;Glucose</td> <td>84 MG/DL</td> <td> 65-110</td> </tr> <tr> <td> Osmolality,Calculated</td> <td>271 MOSM/KG</td> <td>261-280</td> </tr> <tr> <td>Calcium</td> <td>8.8 MG/DL</td> & lt;td>8.4-10.2</td> </tr> <tr> < td>Bilirubin,Total</td> <td>0.60 MG/DL</td> <td>0.20-1.30</td> </tr> <tr> <td>Alkaline Phosphatase</td> <td>66 U/L</td&gt ; <td>38-126</td> </tr> <tr> <td>AST - Aspartate Amino Transfer</td> <td>18 U/L</td> <td>14-36</td> </tr> <tr& gt; <td>ALT</td> <td>30 U/L</td> <td>9-52</td> </tr> <tr> &lt ;td>TP - Total Protein</td> <td>7.2 G/DL</td> <td>6.3-8.2</td> </tr> <tr> & lt;td>Albumin Level</td> <td>4.2 G/DL</td> <td>3.5-5.0</td> </tr> <tr> <td> Globulin</td> <td>3.0 G/DL</td> <td> 2.4-3.6</td> </tr> <tr> <td> Albumin/Globulin Ratio</td> <td>1.4 RATIO</td> & lt;td>1.1-2.2</td> </tr> <tr> <td >LICTERUS</td> <td>< 2 </td> < td>0-7</td> </tr> <tr> <td> LHEMOLYSIS</td> <td>< 15 </td> <td >0-25</td> </tr> <tr> <td> LTURBIDITY</td> <td>< 20 </td> <td&gt ;0-20</td> </tr> <tr> <th colspan=& quot;10">L200.0630 - 04/17/17 10:37</th> </tr> <tr> <td>Phosphorus</td> <td>3.2 MG/ DL</td> <td>2.5-4.5</td> </tr> & lt;tr> <th colspan="10">L200.1855 - 04/17/17 10:37& lt;/th> </tr> <tr> <td>LDH - Lactate Dehydrogenase</td> <td>337 U/L</td> <td>313-618</td> </tr> <tr> < th colspan="10">L200.3850 - 04/17/17 10:37</th> </ tr> <tr> <td>TSH - Thyroid Stim Hormone</td&gt ; <td>78.90 MIU/L</td> <td>0.47-4.68</td> </tr> <tr> <th colspan="10"> L750.0200 - 04/17/17 10:37</th> </tr> <tr> &lt ;td>LACTH-A</td> <td>19 pg/mL</td> <td >NRG</td> </tr> <tr> <th colspan= "10">L750.2985 - 04/17/17 10:37</th> </tr> <tr> <td>Cortisol AM, Serum - AMS</td> <td> 8 ug/dL</td> <td>3-20</td> </tr> <tr> <th colspan="10">L200.3600 - 04/17/17 10:37& lt;/th> </tr> <tr> <td>Free T4 ( Free Thyroxine)-Batch</td> <td>0.68 NG/DL</td> <td>0.78-2.19</td> </tr> <tr> <th colspan="10">CBC WithPlatelet No Differential - 04/30/17 11:18</th> </tr> <tr> <td>HCT< /td> <td>40.1 %</td> <td>37.0- 47.0</td> </tr> <tr> <td>HGB</ td> <td>13.4 g/dL</td> <td>12.0-16.0</ td> </tr> <tr> <td>MCH</td> & lt;td>27.7 pg</td> <td>27.0-32.0</td> </ tr> <tr> <td>MCHC</td> <td> 33.4 g/dL</td> <td>32.0-36.0</td> </tr> <tr><td>MCV</td> <td>83.0 fL</td&gt ; <td>82.0-99.0</td> </tr> <tr> <td>MPV</td> <td>9.2 fL</td> <td>9.4-12.4</td> </tr> <tr> < td>Platelet Count</td> <td>321 K/uL</td> <td>150-400</td> </tr> <tr> < td>RBC</td> <td>4.83 10*6/uL</td> <td& gt;4.00-5.20</td> </tr> <tr> <td>RDW< /td> <td>14.4 %</td> <td>11.5- 14.5</td> </tr> <tr> <td>WBC</ td> <td>13.4 K/uL</td> <td>4.8-10.8</ td> </tr> <tr> <th colspan="10"& gt;Glucose NPT - 04/30/17 11:18</th> </tr> <tr> <td>Glucose NPT</td> <td>98 mg/dL</td&gt ; <td>70-100</td> </tr> <tr> <th colspan="10">Basic Metabolic Panel (BMP) - 04/30/17 11:18& lt;/th> </tr> <tr> <td>Anion Gap< /td> <td>8 mEq/L</td> <td>3-20</td&gt ; </tr> <tr> <td>BUN</td> <td>9 mg/dL</td> <td>4-20</td> </ tr> <tr> <td>Calcium</td> <td>9.1 mg/dL</td> <td>8.6-10.0</td> </tr> <tr> <td>Chloride</td> <td>108 mEq/ L</td> <td>99-109</td> </tr> < tr> <td>CO2</td> <td>23 mEq/L</td> <td>22-32</td> </tr> <tr> <td>Creatinine</td> <td>1.05 mg/dL</td> <td>0.44-1.03</td> </tr> <tr> <td>Glucose</td> <td>92 mg/dL</td> <td>70-100</td> </tr> <tr> <td >Potassium</td> <td>4.1 mEq/L</td> <td >3.6-5.1</td> </tr> <tr> <td> Sodium</td> <td>139 mEq/L</td> <td>136 -144</td> </tr> <tr> <th colspan=& quot;10">eGFR - 04/30/17 11:18</th> </tr> < tr> <td>eGFR</td> <td>>60 mL/min&lt ;/td> <td>>60</td> </tr> < tr> <th colspan="10">L100.0050 - 05/05/17 11:33</ th> </tr> <tr> <td>WBC - WHITE BLOOD COUNT</td> <td>14.1 T/MM3</td> <td>4.5- 11.0</td> </tr> <tr> <td>RED BLOOD COUNT</td> <td>4.95 M/MM3</td> <td> 4.00-5.20</td> </tr> <tr> <td> HGB - HEMOGLOBIN</td> <td>13.7 GM/DL</td> & lt;td>12-16</td> </tr> <tr> <td>HCT - HEMATOCRIT</td> <td>40.7 %</td> & lt;td>36-46</td> </tr> <tr> <td> MEAN CORPUSCULAR VOLUME</td> <td>82.2 UM3</td> <td>80-100</td> </tr> <tr> & lt;td>MEAN CORPUSCULAR HGB</td> <td>27.7 UUG</td> <td>26-34</td> </tr> <tr> <td>MEAN CORPUSCULAR HGB CONC(MCHC</td> <td>33.7 GM/DL</td> <td>31-37</td> </tr> & lt;tr> <td>RDW STANDARD DEVIATION</td> <td> 42.4 FL</td> <td>36.9-50.2</td> </tr> <tr> <td>PLT - PLATELET COUNT</td> &lt ;td>342 T/MM3</td> <td>130-400</td> </tr > <tr> <td>MEAN PLATELET VOLUME</td> <td>9.3 UM3</td> <td>9.4-12.4</td> & lt;/tr> <tr> <td>NEUTROPHILS % (AUTO)< /td> <td>65.9 %</td> <td>33-66</td> </tr> <tr> <td>LYMPHOCYTES % ( AUTO)</td> <td>21.3 %</td> <td&gt ;23-45</td> </tr> <tr> <td> MONOCYTES % (AUTO)</td> <td>5.2 %</td> <td>0-9.0</td> </tr> <tr> <td& gt;EOSINOPHILS % (AUTO)</td> <td>6.7 %</ td> <td>0-4</td> </tr> <tr> <td>BASOPHILS % (AUTO)</td> <td>0.5 & amp;#37;</td> <td>0-2</td> </tr> <tr> <td>IMMATURE GRANULOCYTE % (AUTO)</td> <td>0.4 %</td> <td>0.0-0.5</td&gt ; </tr> <tr> <td>NEUTROPHILS # (AUTO)& lt;/td> <td>9.3 T/MM3</td> <td>1.8-7.7&lt ;/td> </tr> <tr> <td>LYMPHOCYTES # ( AUTO)</td> <td>3.0 T/MM3</td> <td>1-4.8</ td> </tr> <tr> <td>MONOCYTES # (AUTO )</td> <td>0.7 T/MM3</td> <td>0-0.8&lt ;/td> </tr> <tr> <td>EOSINOPHILS # ( AUTO)</td> <td>0.9T/MM3</td> <td>0-0.5 </td> </tr> <tr> <td>BASOPHILS # (AUTO)</td> <td>0.1 T/MM3</td> <td>0- 0.2</td> </tr> <tr> <td>IMMATURE GRANULOCYTE # (AUTO)</td> <td>0.05 T/MM3</td> <td>0.00-0.03</td> </tr> <tr> <th colspan="10">L200.0020 - 05/05/17 11:33</th> & lt;/tr> <tr> <td>FUNGAL CULTURE.</td> <td>1.1 MG/DL</td> <td>0.7-1.2</td> </tr> <tr> <td>FUNGAL CULTURE, BLOOD.</td > <td>14 RATIO</td> <td>6-26</td> &lt ;/tr> <tr> <td>NA - Sodium</td> & lt;td>140 MEQ/L</td> <td>134-144</td> </ tr> <tr> <td>Potassium</td> <td >3.9 MEQ/L</td> <td>3.6-5</td> </tr> <tr> <td>Chloride</td> <td>105 MEQ/L</td> <td>98-107</td> </tr> <tr> <td>CO2 - Carbon Dioxide</td> <td&gt ;22 MEQ/L</td> <td>22-30</td> </tr> <tr> <td>Anion Gap</td> <td>13 MEQ /L</td> <td>5-15</td> </tr> <tr&gt ; <td>BUN - Blood Urea Nitrogen</td> <td> 15.0 MG/DL</td> <td>7-17</td> </tr> <tr> <td>Glomerular Filtration Rate</td> <td>58 </td> <td>NRG</td> </tr> <tr> <td>Glucose</td> <td>90 MG/DL& lt;/td> <td>65-110</td> </tr> <tr > <td>Osmolality,Calculated</td> <td>270 MOSM/KG</td> <td>261-280</td> </tr> <tr> <td>Calcium</td> <td>9.4 MG/ DL</td> <td>8.4-10.2</td></tr> <tr&gt ; <td>Bilirubin,Total</td> <td>0.60 MG/DL&lt ;/td> <td>0.20-1.30</td> </tr> < tr> <td>Alkaline Phosphatase</td> <td>73 U/L</ td> <td>38-126</td> </tr> <tr&gt ; <td>AST - Aspartate Amino Transfer</td> <td& gt;27 U/L</td> <td>14-36</td> </tr> <tr> <td>ALT</td> <td>35 U/L</ td> <td>9-52</td> </tr> <tr> & lt;td>TP - Total Protein</td> <td>7.6 G/DL</td> <td>6.3-8.2</td> </tr> <tr> <td>Albumin Level</td> <td>4.4 G/DL</td> <td>3.5-5.0</td> </tr> <tr> <td>Globulin</td> <td>3.2 G/DL</td> <td>2.4-3.6</td> </tr> <tr> <td& gt;Albumin/Globulin Ratio</td> <td>1.4 RATIO</td> <td>1.1-2.2</td> </tr> <tr> <td>LICTERUS</td> <td>< 2 </td> <td>0-7</td> </tr> <tr> <td& gt;LHEMOLYSIS</td> <td>< 15 </td> &lt ;td>0-25</td> </tr> <tr> <td> LTURBIDITY</td> <td>< 20 </td> <td >0-20</td> </tr> <tr> <th colspan ="10">L200.2000 - 05/05/17 11:33</th> </tr> <tr> <td>MAG - Magnesium</td> <td> 1.9 MG/DL</td> <td>1.6-2.3</td> </tr> <tr> <th colspan="10">L200.1855 - 05/05/17 11: 33</th> </tr> <tr> <td>LDH - Lactate Dehydrogenase</td> <td>413 U/L</td> <td>313-618</td> </tr> <tr> < th colspan="10">L200.3850 - 05/05/17 11:33</th> </tr& gt; <tr> <td>TSH - Thyroid Stim Hormone</td>& lt;td>18.20 MIU/L</td> <td>0.47-4.68</td> & lt;/tr> <tr> <th colspan="10"> L200.3600 - 05/05/17 11:33</th> </tr> <tr> <td>Free T4 (Free Thyroxine)-Batch</td> <td> 1.60 NG/DL</td> <td>0.78-2.19</td> </tr&gt ; <tr> <th colspan="10">L750.0200 - 11:33</th> </tr> <tr> <td>LACTH -A</td> <td>13 pg/mL</td> <td>NRG</td> </tr> <tr> <th colspan="10"> L750.2990 - 05/05/17 11:33</th> </tr> <tr> <td>Cortisol Free, Serum - AMS</td> <td>0.167 mcg/dL</td> <td>NRG</td> </tr> & lt;tr> <th colspan="10">L100.0050 - 05/23/17 10:05& lt;/th> </tr> <tr> <td>WBC - WHITE BLOOD COUNT</td> <td>12.4 T/MM3</td> <td& gt;4.5-11.0</td> </tr> <tr> <td>RED BLOOD COUNT</td> <td>4.93 M/MM3</td> <td& gt;4.00-5.20</td> </tr> <tr> <td>HGB - HEMOGLOBIN</td> <td>13.7 GM/DL</td> <td >12-16</td> </tr> <tr> <td> HCT - HEMATOCRIT</td> <td>41.3 %</td> <td>36-46</td> </tr> <tr> < td>MEAN CORPUSCULAR VOLUME</td> <td>83.8 UM3</td> <td>80-100</td> </tr> <tr> <td>MEAN CORPUSCULAR HGB</td> <td>27.8 UUG</ td> <td>26-34</td> </tr> <tr> <td>MEAN CORPUSCULAR HGB CONC(MCHC</td> <td&gt ;33.2 GM/DL</td> <td>31-37</td> </tr> <tr> <td>RDW STANDARD DEVIATION</td> & lt;td>43.2 FL</td> <td>36.9-50.2</td> </ tr> <tr> <td>PLT - PLATELET COUNT</td> <td>338 T/MM3</td> <td>130-400</td> </tr> <tr> <td>MEAN PLATELET VOLUME</td& gt; <td>9.1 UM3</td> <td>9.4-12.4</td&gt ; </tr> <tr> <td>NEUTROPHILS % (AUTO )</td> <td>69.0 %</td> <td>33- 66</td> </tr> <tr> <td> LYMPHOCYTES % (AUTO)</td> <td>19.3 %</td > <td>23-45</td> </tr> <tr> & lt;td>MONOCYTES % (AUTO)</td> <td>6.5 %& lt;/td> <td>0-9.0</td> </tr> <tr& gt; <td>EOSINOPHILS % (AUTO)</td> <td>4.6 %</td> <td>0-4</td> </tr> <tr> <td>BASOPHILS % (AUTO)</td> & lt;td>0.3 %</td> <td>0-2</td> </ tr> <tr> <td>IMMATURE GRANULOCYTE % (AUTO )</td> <td>0.3 %</td> <td>0.0- 0.5</td> </tr> <tr> <td> NEUTROPHILS # (AUTO)</td> <td>8.5 T/MM3</td> <td>1.8-7.7</td> </tr> <tr> &lt ;td>LYMPHOCYTES # (AUTO)</td> <td>2.4 T/MM3</td> <td>1-4.8</td> </tr> <tr><td& gt;MONOCYTES # (AUTO)</td> <td>0.8 T/MM3</td> <td>0-0.8</td> </tr> <tr> < td>EOSINOPHILS # (AUTO)</td> <td>0.6 T/MM3</td> <td>0-0.5</td> </tr> <tr> < td>BASOPHILS # (AUTO)</td> <td>0.0 T/MM3</td> <td>0-0.2</td> </tr> <tr> & lt;td>IMMATURE GRANULOCYTE # (AUTO)</td> <td>0.04 T/MM3& lt;/td> <td>0.00-0.03</td> </tr> &lt ;tr> <th colspan="10">L200.0020 - 05/23/17 10:05< /th> </tr> <tr> <td>FUNGAL CULTURE.& lt;/td> <td>1.0 MG/DL</td> <td>0.7-1.2&lt ;/td> </tr> <tr> <td>FUNGAL CULTURE , BLOOD.</td> <td>10RATIO</td> <td>6- 26</td> </tr> <tr> <td>NA - Sodium</td> <td>140 MEQ/L</td> <td>134 -144</td> </tr> <tr> <td> Potassium</td> <td>3.9 MEQ/L</td> <td> 3.6-5</td> </tr> <tr> <td>Chloride</ td> <td>106 MEQ/L</td> <td>98-107</td& gt; </tr> <tr> <td>CO2 - Carbon Dioxide </td> <td>24 MEQ/L</td> <td>22-30</td& gt; </tr> <tr> <td>Anion Gap</td&gt ; <td>10 MEQ/L</td> <td>5-15</td> </tr> <tr> <td>BUN - Blood Urea Nitrogen& lt;/td> <td>10.0 MG/DL</td> <td>7-17</ td> </tr> <tr> <td>Glomerular Filtration Rate</td> <td>65 </td> <td> NRG</td> </tr> <tr> <td>Glucose& lt;/td> <td>103 MG/DL</td> <td>65-110< /td> </tr> <tr> <td>Osmolality, Calculated</td> <td>268 MOSM/KG</td> <td& gt;261-280</td> </tr> <tr> <td> Calcium</td> <td>9.0 MG/DL</td> <td> 8.4-10.2</td> </tr> <tr> <td> Bilirubin,Total</td> <td>0.70 MG/DL</td> &lt ;td>0.20-1.30</td> </tr> <tr> <td& gt;Alkaline Phosphatase</td> <td>75 U/L</td> <td>38-126</td> </tr> <tr> < td>AST - Aspartate Amino Transfer</td> <td>18 U/L</td > <td>14-36</td> </tr> <tr> <td>ALT</td> <td>32 U/L</td> & lt;td>9-52</td> </tr> <tr> <td&gt ;TP - Total Protein</td> <td>7.3 G/DL</td> & lt;td>6.3-8.2</td> </tr> <tr> <td >Albumin Level</td> <td>4.3 G/DL</td> <td> 3.5-5.0</td> </tr> <tr> <td> Globulin</td> <td>3.0 G/DL</td> <td> 2.4-3.6</td> </tr> <tr> <td> Albumin/Globulin Ratio</td> <td>1.4 RATIO</td> <td>1.1-2.2</td> </tr> <tr> & lt;td>LICTERUS</td> <td>< 2 </td> <td>0-7</td> </tr> <tr> <td&gt ;LHEMOLYSIS</td> <td>< 15 </td> < td>0-25</td></tr> <tr> <td>LTURBIDITY </td> <td>< 20 </td> <td>0-20& lt;/td> </tr> <tr> <thcolspan="10& quot;>L200.0630 - 05/23/17 10:05</th> </tr> <tr& gt; <td>Phosphorus</td> <td>3.5 MG/DL</td& gt; <td>2.5-4.5</td> </tr> <tr> <th colspan="10">L200.1999 - 05/23/17 10:05</th> </tr> <tr> <td>MAG - Magnesium</td& gt; <td>2.1 MG/DL</td> <td>1.6-2.3</td&gt ;</tr> <tr> <th colspan="10"> L200.1855 - 05/23/17 10:05</th> </tr> <tr> <td>LDH - Lactate Dehydrogenase</td> <td>372 U/L </td> <td>313-618</td> </tr> <tr& gt; <th colspan="10">L200.3850 - 05/23/17 10:05</th& gt; </tr> <tr> <td>TSH - Thyroid Stim Hormone& lt;/td> <td>17.80 MIU/L</td> <td>0.47- 4.68</td> </tr> <tr> <th colspan=& quot;10">L750.0200 - 05/23/17 10:05</th> </tr> <tr> <td>LACTH-A</td> <td>14 pg/mL& lt;/td> <td>NRG</td> </tr> <tr> <th colspan="10">L902.5645 - 05/23/17 10:05</th> </tr> <tr> <td>Cortisol Random, Serum - AMS</td> <td>8 ug/dL</td> <td>3-20& lt;/td> </tr> <tr> <th colspan="10 ">L200.3600 - 05/23/17 10:05</th> </tr> <tr > <td>Free T4 (Free Thyroxine)-Batch</td> < td>1.89 NG/DL</td> <td>0.78-2.19</td> </ tr> <tr> <th colspan="10">L100.0050 - 06/05/17 09:36</th> </tr> <tr> <td& gt;WBC - WHITE BLOOD COUNT</td> <td>13.6 T/MM3</td> <td>4.5-11.0</td> </tr> <tr> <td>RED BLOOD COUNT</td> <td>5.03 M/MM3</td& gt; <td>4.00-5.20</td> </tr> <tr> <td>HGB - HEMOGLOBIN</td> <td>13.7 GM/DL</td> <td>12-16</td> </tr> <tr> <td>HCT - HEMATOCRIT</td> <td>41.8 %</td&gt ; <td>36-46</td> </tr> <tr> & lt;td>MEAN CORPUSCULAR VOLUME</td> <td>83.1 UM3</td& gt; <td>80-100</td> </tr> <tr> <td>MEAN CORPUSCULAR HGB</td> <td>27.2 UUG&lt ;/td> <td>26-34</td> </tr> <tr&gt ; <td>MEAN CORPUSCULAR HGB CONC(MCHC</td> <td& gt;32.8 GM/DL</td> <td>31-37</td> </tr> <tr> <td>RDW STANDARD DEVIATION</td> < td>42.4 FL</td> <td>36.9-50.2</td> </tr& gt; <tr> <td>PLT - PLATELET COUNT</td> <td>318 T/MM3</td> <td>130-400</td> & lt;/tr> <tr> <td>MEAN PLATELET VOLUME</td> <td>9.4 UM3</td> <td>9.4-12.4</td> & lt;/tr> <tr> <td>NEUTROPHILS % (AUTO)< /td> <td>67.9 %</td> <td>33-66&lt ;/td> </tr> <tr> <td>LYMPHOCYTES & amp;#37; (AUTO)</td> <td>20.9 %</td> <td>23-45</td> </tr> <tr> < td>MONOCYTES % (AUTO)</td> <td>5.4 %< /td> <td>0-9.0</td> </tr> <tr> <td>EOSINOPHILS % (AUTO)</td> <td>4.9 & amp;#37;</td> <td>0-4</td> </tr> <tr> <td>BASOPHILS % (AUTO)</td> &lt ;td>0.4 %</td> <td>0-2</td> </tr > <tr> <td>IMMATURE GRANULOCYTE % (AUTO)& lt;/td> <td>0.5 %</td> <td>0.0- 0.5</td> </tr> <tr> <td> NEUTROPHILS # (AUTO)</td> <td>9.2 T/MM3</td> <td>1.8-7.7</td> </tr> <tr> &lt ;td>LYMPHOCYTES # (AUTO)</td> <td>2.8 T/MM3</td> <td>1-4.8</td> </tr> <tr> <td>MONOCYTES # (AUTO)</td> <td>0.7 T/MM3</td& gt; <td>0-0.8</td> </tr> <tr> <td>EOSINOPHILS # (AUTO)</td> <td>0.7 T/MM3</td& gt; <td>0-0.5</td> </tr> <tr> <td>BASOPHILS # (AUTO)</td> <td>0.1 T/MM3</ td> <td>0-0.2</td> </tr> <tr> <td>IMMATURE GRANULOCYTE # (AUTO)</td> <td>0.07 T/MM3</td> <td>0.00-0.03</td> </tr> <tr> <th colspan="10">L200.0020 - 06/05/17 09 :36</th> </tr> <tr> <td>FUNGAL CULTURE.</td> <td>1.1 MG/DL</td> <td> 0.7-1.2</td> </tr> <tr> <td> FUNGAL CULTURE, BLOOD.</td> <td>12 RATIO</td> <td>6-26</td> </tr> <tr> < td>NA - Sodium</td> <td>140 MEQ/L</td> & lt;td>134-144</td> </tr> <tr> <td >Potassium</td> <td>3.9MEQ/L</td> <td& gt;3.6-5</td> </tr> <tr> <td> Chloride</td> <td>103 MEQ/L</td> <td> 98-107</td> </tr> <tr> <td>CO2 - Carbon Dioxide</td><td>26 MEQ/L</td> <td>22-30& lt;/td> </tr> <tr> <td>Anion Gap< /td> <td>11 MEQ/L</td> <td>5-15</td&gt ; </tr> <tr> <td>BUN - Blood Urea Nitrogen</td> <td>13.0 MG/DL</td> <td> 7-17</td> </tr> <tr> <td> Glomerular Filtration Rate</td> <td>58 </td> <td>NRG</td> </tr> <tr> <td& gt;Glucose</td> <td>93 MG/DL</td> <td> 65-110</td> </tr> <tr> <td> Osmolality,Calculated</td> <td>269 MOSM/KG</td> <td>261-280</td> </tr> <tr> < td>Calcium</td> <td>9.4 MG/DL</td> <td >8.4-10.2</td> </tr> <tr> <td> Bilirubin,Total</td> <td>0.80 MG/DL</td> <td> 0.20-1.30</td> </tr><tr> <td>Alkaline Phosphatase</td> <td>77 U/L</td> <td>38- 126</td> </tr> <tr> <td>AST - Aspartate Amino Transfer</td> <td>16 U/L</td> <td>14-36</td> </tr> <tr> < td>ALT</td> <td>30 U/L</td> <td>9- 52</td> </tr> <tr> <td>TP - Total Protein</td> <td>7.1 G/DL</td> <td& gt;6.3-8.2</td> </tr> <tr> <td> Albumin Level</td> <td>4.2 G/DL</td> <td& gt;3.5-5.0</td> </tr> <tr> <td> Globulin</td> <td>2.9 G/DL</td> <td> 2.4-3.6</td> </tr> <tr> <td> Albumin/Globulin Ratio</td> <td>1.4 RATIO</td> <td>1.1-2.2</td> </tr> <tr> & lt;td>LICTERUS</td> <td>< 2 </td> &lt ;td>0-7</td> </tr> <tr> <td> LHEMOLYSIS</td> <td>< 15 </td> <td >0-25</td> </tr> <tr> <td> LTURBIDITY</td> <td>< 20 </td> <td >0-20</td> </tr> <tr> <th colspan ="10">L200.199906/05/17 09:36</th> </tr> <tr> <td>MAG - Magnesium</td> <td>1.9 MG/ DL</td> <td>1.6-2.3</td> </tr> & lt;tr> <th colspan="10">L200.18506/05/17 09:36& lt;/th> </tr> <tr> <td>LDH - Lactate Dehydrogenase</td> <td>349 U/L</td> <td>313-618</td> </tr> <tr> < th colspan="10">L200.38506/05/1808:36</th> </tr > <tr> <td>TSH - Thyroid Stim Hormone</td> <td>32.50 MIU/L</td> <td>0.47-4.68</td& gt; </tr> <tr> <th colspan="10"& gt;L902.5645 - 06/05/17 09:36</th> </tr> <tr> <td>Cortisol Random, Serum - AMS</td> <td>9 ug/dL</td> <td>3-20</td> </tr><tr&gt ; <th colspan="10">L200.3600 - 06/05/17 09:36</th&gt ; </tr> <tr> <td>Free T4 (Free Thyroxine)-Batch</td> <td>1.34 NG/DL</td> & lt;td>0.78-2.19</td> </tr> <tr> < th colspan="10">L750.0200 - 06/05/17 09:36</th> </ tr> <tr> <td>LACTH-A</td> <td& gt;20 pg/mL</td> <td>NRG</td> </tr> & lt;tr> <th colspan="10">L100.0050 - 06/20/17 09:55& lt;/th> </tr> <tr> <td>WBC - WHITE BLOOD COUNT</td> <td>11.1 T/MM3</td> <td& gt;4.5-11.0</td> </tr> <tr> <td> RED BLOOD COUNT</td> <td>5.03 M/MM3</td> <td& gt;4.00-5.20</td> </tr> <tr> <td>HGB - HEMOGLOBIN</td> <td>13.9 GM/DL</td> <td >12-16</td> </tr> <tr> <td> HCT - HEMATOCRIT</td> <td>41.8 %</td> <td>36-46</td> </tr> <tr> < td>MEAN CORPUSCULAR VOLUME</td> <td>83.1 UM3</td> <td>80-100</td> </tr> <tr> <td>MEAN CORPUSCULAR HGB</td> <td>27.6 UUG</ td><td>26-34</td> </tr> <tr> & lt;td>MEAN CORPUSCULAR HGB CONC(MCHC</td> <td>33.3 GM/DL </td> <td>31-37</td> </tr> <tr& gt; <td>RDW STANDARD DEVIATION</td> <td> 41.9 FL</td> <td>36.9-50.2</td> </tr> <tr> <td>PLT - PLATELET COUNT</td> &lt ;td>342 T/MM3</td> <td>130-400</td> </tr> <tr> <td>MEAN PLATELETVOLUME</td> < td>9.6 UM3</td> <td>9.4-12.4</td> </tr> <tr> <td>NEUTROPHILS % (AUTO)</td> <td>64.4 %</td> <td>33-66</td> </tr> <tr> <td>LYMPHOCYTES % (AUTO )</td> <td>23.1 %</td> <td>23- 45</td> </tr> <tr> <td>MONOCYTES % (AUTO)</td> <td>5.6 %</td> <td>0-9.0</td> </tr> <tr> < td>EOSINOPHILS % (AUTO)</td> <td>6.2 %& lt;/td> <td>0-4</td> </tr> <tr&gt ; <td>BASOPHILS % (AUTO)</td> <td> 0.5 %</td> <td>0-2</td> </tr> <tr> <td>IMMATURE GRANULOCYTE % (AUTO)</td> <td>0.2 %</td> <td>0.0-0.5</td& gt; </tr> <tr> <td>NEUTROPHILS # (AUTO) </td> <td>7.1 T/MM3</td> <td>1.8-7.7& lt;/td> </tr> <tr> <td>LYMPHOCYTES # (AUTO)</td> <td>2.6 T/MM3</td> <td>1-4.8& lt;/td> </tr> <tr> <td>MONOCYTES # ( AUTO)</td> <td>0.6 T/MM3</td> <td>0-0.8< /td> </tr> <tr> <td>EOSINOPHILS # ( AUTO)</td> <td>0.7 T/MM3</td> <td>0- 0.5</td> </tr> <tr> <td>BASOPHILS # ( AUTO)</td> <td>0.1 T/MM3</td> <td>0- 0.2</td> </tr> <tr><td>IMMATURE GRANULOCYTE # (AUTO)</td> <td>0.02 T/MM3</td><td& gt;0.00-0.03</td> </tr> <tr> <th colspan="10">L200.0020 - 06/20/17 09:55</th> </tr& gt; <tr> <td>FUNGAL CULTURE.</td> &lt ;td>1.1 MG/DL</td> <td>0.7-1.2</td> </tr > <tr> <td>FUNGAL CULTURE, BLOOD.</td> & lt;td>13 RATIO</td> <td>6-26</td> </tr& gt; <tr> <td>NA - Sodium</td> <td& gt;140 MEQ/L</td> <td>134-144</td> </tr&gt ; <tr> <td>Potassium</td> <td> 4.2 MEQ/L</td> <td>3.6-5</td> </tr> < tr> <td>Chloride</td> <td>104 MEQ/L</ td> <td>98-107</td> </tr> <tr&gt ; <td>CO2 - Carbon Dioxide</td> <td>25 MEQ/L </td> <td>22-30</td> </tr> <tr > <td>Anion Gap</td> <td>11 MEQ/L</td& gt; <td>5-15</td> </tr> <tr> <td>BUN - Blood Urea Nitrogen</td> <td>14.0 MG/ DL</td> <td>7-17</td> </tr> < tr> <td>Glomerular Filtration Rate</td> <td> 58 </td> <td>NRG</td> </tr> < tr> <td>Glucose</td> <td>107 MG/DL</td > <td>65-110</td> </tr> <tr> <td>Osmolality,Calculated</td> <td>270 MOSM/ KG</td> <td>261-280</td> </tr> & lt;tr> <td>Calcium</td> <td>9.9 MG/DL< /td> <td>8.4-10.2</td> </tr> <tr> <td>Bilirubin,Total</td> <td>0.50 MG/DL< /td> <td>0.20-1.30</td> </tr> <tr&gt ; <td>Alkaline Phosphatase</td> <td>78 U/L& lt;/td> <td>38-126</td> </tr> <tr > <td>AST - Aspartate Amino Transfer</td> <td> 17 U/L</td> <td>14-36</td> </tr> <tr&gt ; <td>ALT</td> <td>36 U/L</td> & lt;td>9-52</td> </tr> <tr> <td&gt ;TP - Total Protein</td> <td>7.4 G/DL</td> <td&gt ;6.3-8.2</td> </tr> <tr> <td> Albumin Level</td> <td>4.4 G/DL</td> <td& gt;3.5-5.0</td> </tr> <tr> <td> Globulin</td> <td>3.0 G/DL</td> <td> 2.4-3.6</td> </tr> <tr> <td> Albumin/Globulin Ratio</td> <td>1.5 RATIO</td> <td>1.1-2.2</td> </tr> <tr> & lt;td>LICTERUS</td> <td>< 2 </td> <td>0-7</td> </tr> <tr> <td> LHEMOLYSIS</td> <td>< 15 </td> <td >0-25</td> </tr> <tr> <td> LTURBIDITY</td> <td>< 20 </td> <td >0-20</td> </tr> <tr> <th colspan ="10">L200.2000 - 01/19/18 09:55</th> </tr> <tr> <td>MAG - Magnesium</td> <td> 1.8 MG/DL</td> <td>1.6-2.3</td> </tr> <tr> <th colspan="10">L200.18506/20/17 09:55</th> </tr> <tr> <td>LDH - Lactate Dehydrogenase</td> <td>363 U/L</td> <td& gt;313-618</td> </tr> <tr> <th colspan="10">L200.0606/20/17 09:55</th> </tr& gt; <tr> <td>Phosphorus</td> <td& gt;4.8 MG/DL</td> <td>2.5-4.5</td> </tr> <tr> <th colspan="10">L200.38506/20/17 09: 55</th> </tr> <tr> <td>TSH - Thyroid Stim Hormone</td> <td>26.30 MIU/L</td> <td>0.47-4.68</td> </tr> <tr> <th colspan="10">L750.0200 - 06/20/17 09:55</th> </tr> <tr> <td>LACTH-A</td> &lt ;td>21 </td> <td>NRG</td> </tr> <tr> <th colspan="10">L902.5645 - 06/20/17 09: 55</th> </tr> <tr> <td>Cortisol Random , Serum - AMS</td> <td>10 ug/dL</td> <td>3-20& lt;/td> </tr> <tr> <th colspan="10 ">L200.3600 - 06/20/17 09:55</th> </tr> <tr > <td>Free T4 (Free Thyroxine)-Batch</td> < td>1.55 NG/DL</td> <td>0.78-2.19</td> </ tr> <tr> <th colspan="10">L100.0050 - 06/25/17 10:58</th> </tr> <tr> <td& gt;WBC - WHITE BLOOD COUNT</td> <td>11.5 T/MM3</td> <td>4.5-11.0</td> </tr> <tr> <td>RED BLOOD COUNT</td> <td>4.87 M/MM3</td& gt; <td>4.00-5.20</td> </tr> <tr&gt ; <td>HGB - HEMOGLOBIN</td> <td>13.6 GM/DL& lt;/td><td>12-16</td> </tr> <tr> <td>HCT - HEMATOCRIT</td> <td>40.6 %</ td> <td>36-46</td> </tr> <tr> <td>MEAN CORPUSCULAR VOLUME</td> <td>83.4 UM3</td> <td>80-100</td> </tr> & lt;tr> <td>MEAN CORPUSCULAR HGB</td> <td>27.9 UUG& lt;/td> <td>26-34</td> </tr> <tr& gt; <td>MEAN CORPUSCULAR HGB CONC(MCHC</td> <td >33.5 GM/DL</td> <td>31-37</td> </tr&gt ; <tr> <td>RDW STANDARD DEVIATION</td> <td>43.0 FL</td> <td>36.9-50.2</td> & lt;/tr> <tr> <td>PLT - PLATELET COUNT</td> <td>318 T/MM3</td> <td>130-400</td> & lt;/tr> <tr> <td>MEAN PLATELET VOLUME</td> <td>9.2 UM3</td> <td>9.4-12.4</td> </tr> <tr> <td>NEUTROPHILS % ( AUTO)</td> <td>65.1 %</td> <td&gt ;33-66</td> </tr> <tr> <td> LYMPHOCYTES % (AUTO)</td> <td>21.7 %</td > <td>23-45</td> </tr> <tr> <td>MONOCYTES% (AUTO)</td> <td>6.0 &amp ;#37;</td> <td>0-9.0</td> </tr> & lt;tr> <td>EOSINOPHILS % (AUTO)</td> & lt;td>6.6 %</td> <td>0-4</td> </ tr> <tr> <td>BASOPHILS % (AUTO)</td> <td>0.3 %</td> <td>0-2</td> </tr> <tr> <td>IMMATURE GRANULOCYTE &amp ;#37; (AUTO)</td> <td>0.3 %</td> <td& gt;0.0-0.5</td> </tr> <tr> <td> NEUTROPHILS # (AUTO)</td> <td>7.5 T/MM3</td> <td>1.8-7.7</td> </tr> <tr> < td>LYMPHOCYTES # (AUTO)</td> <td>2.5 T/MM3</td> <td>1-4.8</td> </tr> <tr> & lt;td>MONOCYTES # (AUTO)</td> <td>0.7 T/MM3</td> <td>0-0.8</td> </tr> <tr> <td>EOSINOPHILS # (AUTO)</td> <td>0.8 T/MM3</td > <td>0-0.5</td> </tr> <tr> <td>BASOPHILS # (AUTO)</td> <td>0.0 T/MM3< /td> <td>0-0.2</td> </tr> <tr&gt ; <td>IMMATURE GRANULOCYTE # (AUTO)</td> <td&gt ;0.03 T/MM3</td> <td>0.00-0.03</td> </tr&gt ; <tr> <th colspan="10">L200.0020 - 10:58</th> </tr> <tr> <td> FUNGAL CULTURE.</td> <td>1.0 MG/DL</td> < td>0.7-1.2</td> </tr> <tr> <td> FUNGAL CULTURE, BLOOD.</td> <td>11 RATIO</td> <td>6-26</td> </tr> <tr> <td> NA - Sodium</td> <td>139 MEQ/L</td> <td& gt;134-144</td> </tr> <tr> <td> Potassium</td> <td>4.1 MEQ/L</td> <td> 3.6-5</td> </tr> <tr> <td> Chloride</td> <td>105 MEQ/L</td> <td> 98-107</td> </tr> <tr> <td>CO2 - Carbon Dioxide</td> <td>26 MEQ/L</td> <td >22-30</td> </tr> <tr> <td>Anion Gap</td> <td>8 MEQ/L</td> <td>5-15</td> </tr> <tr> <td>BUN - Blood Urea Nitrogen</td> <td>11.0 MG/DL</td> <td> 7-17</td> </tr> <tr> <td>Glomerular Filtration Rate</td> <td>65 </td> <td> NRG</td> </tr> <tr><td>Glucose</td> <td>105 MG/DL</td> <td>65-110</td> </tr> <tr> <td>Osmolality,Calculated< /td> <td>267 MOSM/KG</td> <td>261-280</td> </tr> <tr> <td>Calcium</td> <td>9.1 MG/DL</td> <td>8.4-10.2</td> </tr> <tr> <td>Bilirubin,Total</td> <td>0.60 MG/DL</td> <td>0.20-1.30</td&gt ; </tr> <tr> <td>Alkaline Phosphatase& lt;/td> <td>71 U/L</td> <td>38-126</td > </tr> <tr> <td>AST - Aspartate Amino Transfer</td> <td>16 U/L</td> <td& gt;14-36</td> </tr> <tr> <td>ALT& lt;/td> <td>29 U/L</td> <td>9-52</td& gt; </tr> <tr> <td>TP - Total Protein</td& gt; <td>7.1 G/DL</td> <td>6.3-8.2</td&gt ; </tr> <tr> <td>Albumin Level</td& gt; <td>4.3 G/DL</td> <td>3.5-5.0</td> </tr> <tr> <td>Globulin</td> <td>2.8 G/DL</td> <td>2.4-3.6</td> </ tr> <tr> <td>Albumin/GlobulinRatio</td> <td>1.5 RATIO</td> <td>1.1-2.2</td> < /tr> <tr> <td>LICTERUS</td> <td >< 2 </td> <td>0-7</td> </tr> <tr> <td>LHEMOLYSIS</td> <td>& amp;lt; 15 </td> <td>0-25</td> </tr> <tr> <td>LTURBIDITY</td> <td>& lt; 20 </td> <td>0-20</td> </tr> <tr> <th colspan="10">L200.1999 - 06/25/17 10:58& lt;/th> </tr> <tr> <td>MAG - Magnesium</td> <td>2.0 MG/DL</td><td>1.6-2.3&lt ;/td> </tr> <tr> <th colspan="10& quot;>L200.1855 - 06/25/17 10:58</th> </tr> <tr& gt; <td>LDH - Lactate Dehydrogenase</td> <td&gt ;316 U/L</td> <td>313-618</td> </tr> <tr> <th colspan="10">L160.0105 - 06/25/17 11:12</th> </tr> <tr> <td>INR.&lt ;/td> <td>0.94 </td> <td>0.99-1.21</td > </tr> <tr> <th colspan="10"> L160.01106/25/17 11:12</th> </tr> <tr> <td>PTT.</td> <td>29.3 SEC</td> & lt;td>24-36</td> </tr> <tr> <th colspan="10">L160.0120 - 06/25/17 11:12</th> </tr& gt; <tr> <td>FIBRINOGEN.</td> <td& gt;385 MG/DL</td> <td>175-450</td> </tr&gt ; <tr> <th colspan="10">L160.0135 - 11:12</th> </tr> <tr> <td>D- DIMER.</td> <td>< 150 NG/ML</td> < td>0-230</td> </tr> <tr> <th colspan="10">L100.0050 - 07/04/17 10:17</th> </tr&gt ; <tr> <td>WBC - WHITE BLOOD COUNT</td> <td>11.8 T/MM3</td> <td>4.5-11.0</td> </tr> <tr> <td>RED BLOOD COUNT</td> <td>4.85 M/MM3</td> <td>4.00-5.20</td> & lt;/tr> <tr> <td>HGB - HEMOGLOBIN</td> <td>13.6 GM/DL</td> <td>12-16</td> </tr> <tr> <td>HCT - HEMATOCRIT</td> <td>40.4 %</td> <td>36-46</td&gt ; </tr> <tr><td>MEAN CORPUSCULAR VOLUME</td& gt; <td>83.3 UM3</td> <td>80-100</td> </tr> <tr> <td>MEAN CORPUSCULAR HGB&lt ;/td> <td>28.0 UUG</td> <td>26-34</td& gt; </tr> <tr> <td>MEAN CORPUSCULAR HGB CONC(MCHC</td> <td>33.7 GM/DL</td> <td&gt ;31-37</td> </tr> <tr><td>RDW STANDARD DEVIATION</td> <td>42.3 FL</td> <td> 36.9-50.2</td> </tr> <tr> <td> PLT - PLATELET COUNT</td> <td>294 T/MM3</td> <td>130-400</td> </tr> <tr> &lt ;td>MEAN PLATELET VOLUME</td> <td>9.2 UM3</td> <td>9.4-12.4</td> </tr> <tr> <td>NEUTROPHILS % (AUTO)</td> <td>69.5 & amp;#37;</td> <td>33-66</td> </tr> <tr> <td>LYMPHOCYTES % (AUTO)</td> <td>19.4 %</td> <td>23-45</td> </tr> <tr> <td>MONOCYTES % (AUTO)</ td> <td>4.3 %</td> <td>0-9.0</td> </tr> <tr> <td>EOSINOPHILS % ( AUTO)</td> <td>6.2 %</td> <td> 0-4</td> </tr> <tr> <td> BASOPHILS % (AUTO)</td> <td>0.3 %</td&gt ; <td>0-2</td> </tr> <tr> <td>IMMATURE GRANULOCYTE %(AUTO)</td> <td> 0.3 %</td> <td>0.0-0.5</td> </tr> <tr> <td>NEUTROPHILS # (AUTO)</td> & lt;td>8.2 T/MM3</td> <td>1.8-7.7</td> </ tr> <tr> <td>LYMPHOCYTES # (AUTO)</td> <td>2.3 T/MM3</td> <td>1-4.8</td> & lt;/tr> <tr> <td>MONOCYTES # (AUTO)</td> <td>0.5 T/MM3</td> <td>0-0.8</td> </tr> <tr> <td>EOSINOPHILS # (AUTO)</td& gt; <td>0.7 T/MM3</td> <td>0-0.5</td> </tr> <tr> <td>BASOPHILS # (AUTO)</ td> <td>0.0 T/MM3</td> <td>0-0.2</td& gt; </tr> <tr> <td>IMMATURE GRANULOCYTE # (AUTO)</td> <td>0.04 T/MM3</td> <td>0.00-0.03</td> </tr> <tr> <th colspan="10">L200.0020 - 07/04/17 10:17</th> & lt;/tr> <tr> <td>FUNGAL CULTURE.</td> <td>1.0 MG/DL</td> <td>0.7-1.2</td> </tr> <tr> <td>FUNGAL CULTURE, BLOOD.</td&gt ; <td>12 RATIO</td> <td>6-26</td> </tr> <tr> <td>NA - Sodium</td> <td>140 MEQ/L</td> <td>134-144</td> </tr> <tr> <td>Potassium</td> & lt;td>3.8 MEQ/L</td> <td>3.6-5</td> </tr> <tr> <td>Chloride</td> <td>104 MEQ/L</td> <td>98-107</td> </tr> & lt;tr> <td>CO2 - Carbon Dioxide</td> <td> 24 MEQ/L</td> <td>22-30</td> </tr> <tr> <td>Anion Gap</td> <td>12 MEQ/ L</td> <td>5-15</td> </tr> <tr > <td>BUN - Blood Urea Nitrogen</td> <td> 12.0 MG/DL</td> <td>7-17</td> </tr> <tr> <td>Glomerular Filtration Rate</td> < td>65 </td> <td>NRG</td> </tr> <tr> <td>Glucose</td> <td>139 MG/DL</td& gt; <td>65-110</td> </tr> <tr> <td>Osmolality,Calculated</td> <td>271 MOSM/ KG</td> <td>261-280</td> </tr> &lt ;tr> <td>Calcium</td> <td>9.6 MG/DL</ td> <td>8.4-10.2</td> </tr> <tr& gt; <td>Bilirubin,Total</td> <td>0.40 MG/DL& lt;/td> <td>0.20-1.30</td> </tr> &lt ;tr> <td>Alkaline Phosphatase</td> <td> 72 U/L</td> <td>38-126</td> </tr> <tr> <td>AST - Aspartate Amino Transfer</td> <td>17 U/L</td> <td>14-36</td> </ tr> <tr> <td>ALT</td> <td> 30 U/L</td> <td>9-52</td> </tr> & lt;tr> <td>TP - Total Protein</td> <td> 7.1 G/DL</td> <td>6.3-8.2</td> </tr> <tr> <td>Albumin Level</td> <td> 4.3 G/DL</td> <td>3.5-5.0</td> </tr> <tr> <td>Globulin</td> <td>2.8 G/ DL</td> <td>2.4-3.6</td></tr> <tr&gt ; <td>Albumin/Globulin Ratio</td> <td>1.5 RATIO</td> <td>1.1-2.2</td> </tr> <tr> <td>LICTERUS</td> <td>< 2 &lt ;/td> <td>0-7</td> </tr> <tr> <td>LHEMOLYSIS</td> <td>< 15 </td > <td>0-25</td> </tr> <tr> <td>LTURBIDITY</td> <td>< 20 </td&gt ; <td>0-20</td> </tr> <tr> <th colspan="10">L200.2000 - 07/04/17 10:17</th> </tr> <tr> <td>MAG - Magnesium</td> <td>1.8 MG/DL</td> <td>1.6-2.3</td> & lt;/tr> <tr> <th colspan="10"> L200.185407/04/17 10:17</th> </tr> <tr> <td>LDH - Lactate Dehydrogenase</td> <td>329 U/L </td> <td>313-618</td> </tr> <tr& gt; <th colspan="10">L200.3850 - 07/04/17 10:17</th& gt; </tr> <tr> <td>TSH - Thyroid Stim Hormone </td> <td>3.54 MIU/L</td> <td>0.47- 4.68</td> </tr> <tr> <th colspan=& quot;10">L750.0200 - 07/04/17 10:17</th> </tr> <tr> <td>LACTH-A</td> <td>15 pg/mL& lt;/td> <td>NRG</td> </tr> <tr> <th colspan="10">L902.5645 - 07/04/17 10:17</th> </tr> <tr> <td>Cortisol Random, Serum - AMS</td> <td>6 ug/dL</td> <td>3-20& lt;/td> </tr> <tr> <th colspan="10 ">L200.3600 - 07/04/17 10:17</th> </tr> <tr > <td>Free T4 (Free Thyroxine)-Batch</td> < td>1.89 NG/DL</td> <td>0.78-2.19</td> </ tr> <tr> <th colspan="10">L100.0050 - 07/18/17 11:40</th> </tr> <tr> <td& gt;WBC - WHITE BLOOD COUNT</td> <td>11.0 T/MM3</td> <td>4.5-11.0</td> </tr> <tr> <td>RED BLOOD COUNT</td> <td>4.95 M/MM3</td& gt; <td>4.00-5.20</td> </tr> <tr> <td>HGB - HEMOGLOBIN</td> <td>13.6 GM/DL</td> <td>12-16</td> </tr> <tr> <td>HCT - HEMATOCRIT</td> <td>40.9 %</td&gt ; <td>36-46</td> </tr> <tr> & lt;td>MEAN CORPUSCULAR VOLUME</td> <td>82.6 UM3</td& gt; <td>80-100</td> </tr> <tr> <td>MEAN CORPUSCULAR HGB</td> <td>27.5 UUG&lt ;/td> <td>26-34</td> </tr> <tr&gt ; <td>MEAN CORPUSCULAR HGB CONC(MCHC</td> <td& gt;33.3 GM/DL</td> <td>31-37</td> </tr> <tr> <td>RDW STANDARD DEVIATION</td> < td>40.9 FL</td> <td>36.9-50.2</td> </tr& gt; <tr> <td>PLT - PLATELET COUNT</td> <td>327 T/MM3</td> <td>130-400</td> & lt;/tr> <tr> <td>MEAN PLATELET VOLUME</td> <td>9.3 UM3</td> <td>9.4-12.4</td> & lt;/tr> <tr> <td>NEUTROPHILS % (AUTO)< /td> <td>65.9 %</td> <td>33-66&lt ;/td> </tr> <tr> <td>LYMPHOCYTES & amp;#37; (AUTO)</td> <td>21.6 %</td> <td>23-45</td> </tr> <tr> < td>MONOCYTES % (AUTO)</td> <td>5.3 %< /td> <td>0-9.0</td> </tr> <tr> <td>EOSINOPHILS % (AUTO)</td> <td>6.5 & amp;#37;</td> <td>0-4</td> </tr> <tr> <td>BASOPHILS % (AUTO)</td> &lt ;td>0.4 %</td> <td>0-2</td> </tr > <tr> <td>IMMATURE GRANULOCYTE % (AUTO)& lt;/td> <td>0.3 %</td> <td>0.0- 0.5</td> </tr> <tr> <td> NEUTROPHILS # (AUTO)</td> <td>7.3 T/MM3</td> <td>1.8-7.7</td> </tr> <tr> &lt ;td>LYMPHOCYTES # (AUTO)</td> <td>2.4 T/MM3</td> <td>1-4.8</td> </tr> <tr> <td>MONOCYTES # (AUTO)</td> <td>0.6 T/MM3</td& gt; <td>0-0.8</td> </tr> <tr> <td>EOSINOPHILS # (AUTO)</td> <td>0.7 T/MM3</td& gt; <td>0-0.5</td> </tr> <tr> <td>BASOPHILS # (AUTO)</td> <td>0.0 T/MM3</ td> <td>0-0.2</td> </tr> <tr> <td>IMMATURE GRANULOCYTE # (AUTO)</td> <td>0.03 T/MM3</td> <td>0.00-0.03</td> </tr> <tr> <th colspan="10">L200.0020 - 07/18/17 11 :40</th> </tr> <tr> <td>FUNGAL CULTURE.</td> <td>1.0 MG/DL</td> <td> 0.7-1.2</td> </tr> <tr> <td> FUNGAL CULTURE, BLOOD.</td> <td>12 RATIO</td> <td>6-26</td> </tr> <tr> < td>NA - Sodium</td> <td>142 MEQ/L</td> & lt;td>134-144</td> </tr> <tr> <td >Potassium</td> <td>4.0MEQ/L</td> <td& gt;3.6-5</td> </tr> <tr> <td> Chloride</td> <td>106 MEQ/L</td> <td> 98-107</td> </tr> <tr> <td>CO2 - Carbon Dioxide</td><td>25 MEQ/L</td> <td>22-30& lt;/td> </tr> <tr> <td>Anion Gap< /td> <td>11 MEQ/L</td> <td>5-15</td&gt ; </tr> <tr> <td>BUN - Blood Urea Nitrogen</td> <td>12.0 MG/DL</td> <td> 7-17</td> </tr> <tr> <td> Glomerular Filtration Rate</td> <td>65 </td> <td>NRG</td> </tr> <tr> <td& gt;Glucose</td> <td>115 MG/DL</td> <td&gt ;65-110</td></tr> <tr> <td>Osmolality, Calculated</td> <td>274 MOSM/KG</td> <td& gt;261-280</td> </tr> <tr> <td> Calcium</td> <td>9.6 MG/DL</td> <td> 8.4-10.2</td> </tr> <tr> <td> Bilirubin,Total</td> <td>0.40 MG/DL</td> <td&gt ;0.20-1.30</td> </tr> <tr> <td>Alkaline Phosphatase</td> <td>71 U/L</td> <td>38- 126</td> </tr> <tr> <td>AST - Aspartate Amino Transfer</td> <td>16 U/L</td> <td>14-36</td> </tr> <tr> < td>ALT</td> <td>33 U/L</td> <td>9- 52</td> </tr> <tr> <td>TP - Total Protein</td> <td>7.1 G/DL</td> <td& gt;6.3-8.2</td> </tr> <tr> <td> Albumin Level</td> <td>4.1 G/DL</td> <td& gt;3.5-5.0</td> </tr> <tr> <td> Globulin</td> <td>3.0 G/DL</td> <td> 2.4-3.6</td> </tr> <tr> <td> Albumin/Globulin Ratio</td> <td>1.4 RATIO</td> <td>1.1-2.2</td> </tr> <tr> & lt;td>LICTERUS</td> <td>< 2 </td> & lt;td>0-7</td> </tr> <tr> <td> LHEMOLYSIS</td> <td>< 15 </td> <td >0-25</td> </tr> <tr> <td> LTURBIDITY</td> <td>< 20 </td> <td >0-20</td> </tr> <tr> <th colspan ="10">L200.0630 - 07/18/17 11:40</th> </tr> <tr> <td>Phosphorus</td> <td>3.5 MG/DL&lt ;/td> <td>2.5-4.5</td> </tr> <tr& gt; <th colspan="10">L200.2000- 07/18/17 11:40</th& gt; </tr> <tr> <td>MAG - Magnesium</ td> <td>1.9 MG/DL</td> <td>1.6-2.3</td > </tr> <tr> <th colspan="10" >L200.1855 - 07/18/17 11:40</th> </tr> <tr> <td>LDH - Lactate Dehydrogenase</td> <td>321 U/L </td> <td>313-618</td> </tr> < tr> <th colspan="10">L200.3850 - 07/18/17 11:40</ th> </tr> <tr> <td>TSH - Thyroid Stim Hormone</td> <td>1.14 MIU/L</td> <td >0.47-4.68</td> </tr> <tr> <th colspan="10">L750.0200 - 07/18/17 11:40</th> </tr& gt; <tr> <td>LACTH-A</td> <td>8.7 pg /mL</td><td>NRG</td> </tr> <tr> <th colspan="10">L902.5645 - 07/18/17 11:40</th> </tr> <tr> <td>Cortisol Random, Serum - AMS</td> <td>4 ug/dL</td> <td>3-20< /td> </tr> <tr> <th colspan="10& quot;>L200.3600 - 07/18/17 11:40</th> </tr> <tr& gt; <td>Free T4 (Free Thyroxine)-Batch</td> <td >1.93 NG/DL</td> <td>0.78-2.19</td> </tr > <tr> <th colspan="10">L100.0050 - 9:38</th> </tr> <tr> <td> WBC - WHITE BLOOD COUNT</td> <td>12.4 T/MM3</td> <td>4.5-11.0</td> </tr> <tr> <td>RED BLOOD COUNT</td> <td>5.00 M/MM3</td&gt ; <td>4.00-5.20</td> </tr> <tr> <td>HGB - HEMOGLOBIN</td> <td>13.7 GM/DL< /td> <td>12-16</td> </tr> <tr&gt ; <td>HCT - HEMATOCRIT</td><td>41.6 %</td& gt; <td>36-46</td> </tr> <tr> <td>MEAN CORPUSCULAR VOLUME</td> <td>83.2 UM3& lt;/td> <td>80-100</td> </tr> <tr& gt; <td>MEAN CORPUSCULAR HGB</td> <td>27.4 UUG</td> <td>26-34</td> </tr> <tr > <td>MEAN CORPUSCULAR HGB CONC(MCHC</td> <td> 32.9 GM/DL</td> <td>31-37</td> </tr> <tr> <td>RDW STANDARD DEVIATION</td> & lt;td>41.7 FL</td> <td>36.9-50.2</td> </tr& gt; <tr> <td>PLT - PLATELET COUNT</td> <td>318 T/MM3</td> <td>130-400</td> & lt;/tr> <tr> <td>MEAN PLATELET VOLUME</td> <td>9.2 UM3</td> <td>9.4-12.4</td> </tr> <tr> <td>NEUTROPHILS % ( AUTO)</td> <td>67.0 %</td> <td&gt ;33-66</td> </tr> <tr> <td> LYMPHOCYTES % (AUTO)</td> <td>20.9 %</td > <td>23-45</td> </tr> <tr> <td>MONOCYTES % (AUTO)</td> <td>5.7 & amp;#37;</td> <td>0-9.0</td> </tr> <tr> <td>EOSINOPHILS % (AUTO)</td> <td>5.8 %</td> <td>0-4</td> & lt;/tr> <tr> <td>BASOPHILS % (AUTO)</td&gt ; <td>0.3 %</td> <td>0-2</td> </tr> <tr> <td>IMMATURE GRANULOCYTE &# 37; (AUTO)</td> <td>0.3 %</td> < td>0.0-0.5</td> </tr> <tr> <td&gt ;NEUTROPHILS # (AUTO)</td> <td>8.3 T/MM3</td> <td>1.8-7.7</td> </tr> <tr> < td>LYMPHOCYTES # (AUTO)</td> <td>2.6 T/MM3</td> <td>1-4.8</td> </tr> <tr> <td>MONOCYTES # (AUTO)</td> <td>0.7 T/MM3</td&gt ; <td>0-0.8</td> </tr> <tr> <td>EOSINOPHILS # (AUTO)</td> <td>0.7 T/MM3</ td> <td>0-0.5</td> </tr> <tr> <td>BASOPHILS # (AUTO)</td> <td>0.0 T/MM3& lt;/td> <td>0-0.2</td> </tr> <tr& gt; <td>IMMATURE GRANULOCYTE # (AUTO)</td> <td& gt;0.04 T/MM3</td> <td>0.00-0.03</td> </tr& gt; <tr> <th colspan="10">L200.0020 - 07/20 09:38</th> </tr> <tr> <td> FUNGAL CULTURE.</td> <td>1.0 MG/DL</td> < td>0.7-1.2</td> </tr> <tr> <td> FUNGAL CULTURE, BLOOD.</td> <td>13 RATIO</td> <td>6-26</td> </tr> <tr> < td>NA -Sodium</td> <td>142 MEQ/L</td> &lt ;td>134-144</td> </tr> <tr> <td> Potassium</td> <td>4.2 MEQ/L</td> <td> 3.6-5</td> </tr> <tr> <td> Chloride</td> <td>106 MEQ/L</td> <td> 98-107</td> </tr> <tr> <td>CO2 - Carbon Dioxide</td> <td>25 MEQ/L</td> <td >22-30</td> </tr> <tr> <td>Anion Gap</td> <td>11 MEQ/L</td> <td>5-15&lt ;/td> </tr> <tr> <td>BUN - Blood Urea Nitrogen</td> <td>13.0 MG/DL</td> < td>7-17</td> </tr> <tr> <td> Glomerular Filtration Rate</td> <td>65 </td> <td>NRG</td> </tr> <tr> <td& gt;Glucose</td> <td>106 MG/DL</td> <td&gt ;65-110</td> </tr> <tr> <td> Osmolality,Calculated</td> <td>273 MOSM/KG</td> <td>261-280</td> </tr> <tr><td> Calcium</td> <td>9.2 MG/DL</td> <td> 8.4-10.2</td> </tr> <tr> <td> Bilirubin,Total</td> <td>0.40 MG/DL</td> &lt ;td>0.20-1.30</td> </tr> <tr> <td >Alkaline Phosphatase</td> <td>70 U/L</td> <td >38-126</td> </tr> <tr> <td> AST - Aspartate Amino Transfer</td> <td>16 U/L</td> <td>14-36</td> </tr> <tr> <td>ALT</td> <td>31 U/L</td> <td&gt ;9-52</td> </tr> <tr> <td>TP - Total Protein</td> <td>7.1 G/DL</td> <td& gt;6.3-8.2</td> </tr> <tr> <td> Albumin Level</td> <td>4.2 G/DL</td> <td& gt;3.5-5.0</td> </tr> <tr> <td>Globulin </td> <td>2.9 G/DL</td> <td>2.4-3.6&lt ;/td> </tr> <tr> <td>Albumin/ Globulin Ratio</td> <td>1.4 RATIO</td> <td& gt;1.1-2.2</td> </tr> <tr> <td>LICTERUS </td> <td>< 2 </td> <td>0-7</td> </tr> <tr> <td>LHEMOLYSIS</td> <td>< 15 </td> <td>0-25</td> </tr> <tr> <td>LTURBIDITY</td> <td>< 20 </td> <td>0-20</td> </tr> <tr> <th colspan="10"> L200.1999 - 08/01/17 09:38</th> </tr> <tr> <td>MAG - Magnesium</td> <td>1.9 MG/DL</td&gt ; <td>1.6-2.3</td> </tr> <tr> <th colspan="10">L200.185 - 08/01/17 09:38</th> </tr> <tr> <td>LDH - Lactate Dehydrogenase</td> <td>343 U/L</td> <td& gt;313-618</td> </tr> <tr> <th colspan=& quot;10">L100.0050 - 08/15/17 10:40</th> </tr> <tr> <td>WBC - WHITE BLOOD COUNT</td> < td>10.5 T/MM3</td> <td>4.5-11.0</td> </ tr> <tr> <td>RED BLOOD COUNT</td> & lt;td>5.01 M/MM3</td> <td>4.00-5.20</td> & lt;/tr> <tr> <td>HGB - HEMOGLOBIN</td> <td>14.1 GM/DL</td> <td>12-16</td> </tr> <tr> <td>HCT - HEMATOCRIT</td> <td>41.4 %</td> <td>36-46</td&gt ; </tr> <tr> <td>MEAN CORPUSCULAR VOLUME</td> <td>82.6 UM3</td> <td>80-100< /td> </tr> <tr> <td>MEAN CORPUSCULAR HGB</td> <td>28.1 UUG</td> < td>26-34</td></tr> <tr> <td>MEAN CORPUSCULAR HGB CONC(MCHC</td> <td>34.1 GM/DL</td> <td>31-37</td> </tr> <tr> <td>RDW STANDARD DEVIATION</td> <td>40.2 FL</td& gt; <td>36.9-50.2</td> </tr> <tr> <td>PLT - PLATELET COUNT</td> <td>327 T/MM3</td > <td>130-400</td> </tr> <tr> <td>MEAN PLATELET VOLUME</td> <td>9.2 UM3</ td> <td>9.4-12.4</td> </tr> <tr& gt; <td>NEUTROPHILS % (AUTO)</td> <td> 66.4 %</td> <td>33-66</td> </tr> <tr> <td>LYMPHOCYTES % (AUTO)</td> <td>22.7 %</td> <td>23-45</td> </tr> <tr> <td>MONOCYTES % ( AUTO)</td> <td>5.7 %</td> <td> 0-9.0</td> </tr> <tr> <td> EOSINOPHILS % (AUTO)</td> <td>4.7 %</td& gt; <td>0-4</td> </tr> <tr> < td>BASOPHILS % (AUTO)</td> <td>0.3 %< /td> <td>0-2</td> </tr> <tr> & lt;td>IMMATURE GRANULOCYTE % (AUTO)</td> <td> 0.2 %</td> <td>0.0-0.5</td> </tr&gt ; <tr> <td>NEUTROPHILS # (AUTO)</td> &lt ;td>7.0 T/MM3</td> <td>1.8-7.7</td> </tr > <tr> <td>LYMPHOCYTES # (AUTO)</td> < td>2.4 T/MM3</td> <td>1-4.8</td> </tr&gt ; <tr> <td>MONOCYTES # (AUTO)</td> & lt;td>0.6 T/MM3</td> <td>0-0.8</td> </tr&gt ; <tr> <td>EOSINOPHILS # (AUTO)</td> <td>0.5 T/MM3</td> <td>0-0.5</td> </ tr> <tr> <td>BASOPHILS # (AUTO)</td> & lt;td>0.0 T/MM3</td> <td>0-0.2</td> </tr > <tr> <td>IMMATURE GRANULOCYTE # (AUTO)</td& gt; <td>0.02 T/MM3</td> <td>0.00-0.03</td > </tr> <tr> <th colspan="10"> L200.0020 - 08/15/17 10:40</th> </tr> <tr> <td>FUNGAL CULTURE.</td> <td>1.0 mg/dL</td> <td>0.7-1.2</td> </tr> <tr> <td>FUNGAL CULTURE, BLOOD.</td> <td>14 RATIO</td > <td>6-26</td> </tr> <tr> <td>NA - Sodium</td> <td>144 MEQ/L</td> <td>134-144</td> </tr> <tr> <td>Potassium</td> <td>4.0 MEQ/L</td> <td>3.6-5</td> </tr> <tr> & lt;td>Chloride</td> <td>106 MEQ/L</td> & lt;td>98-107</td></tr> <tr> <td>CO2 - Carbon Dioxide</td> <td>24 MEQ/L</td> < td>22-30</td> </tr> <tr><td>Anion Gap& lt;/td> <td>14 MEQ/L</td> <td>5-15</td > </tr> <tr> <td>BUN - Blood Urea Nitrogen</td> <td>14.0 MG/DL</td> <td>7-17& lt;/td> </tr> <tr> <td>Glomerular Filtration Rate</td> <td>65 </td> <td>NRG </td> </tr> <tr> <td>Glucose</ td> <td>103 MG/DL</td> <td>65-110</td& gt; </tr> <tr> <td>Osmolality, Calculated</td> <td>278 MOSM/KG</td> <td& gt;261-280</td> </tr> <tr> <td> Calcium</td> <td>9.9 MG/DL</td> <td> 8.4-10.2</td> </tr> <tr> <td> Bilirubin,Total</td> <td>0.60 MG/DL</td> &lt ;td>0.20-1.30</td> </tr> <tr> <td >Alkaline Phosphatase</td> <td>73 U/L</td> <td>38-126</td> </tr> <tr> &lt ;td>AST - Aspartate Amino Transfer</td> <td>17 U/L</ td> <td>14-36</td> </tr> <tr> <td>TP - Total Protein</td> <td>7.3 g/dL</td&gt ; <td>6.3-8.2</td> </tr> <tr> &lt ;td>Albumin Level</td> <td>4.3 g/dL</td> <td>3.5-5.0</td> </tr> <tr> < td>Globulin</td> <td>3.0 G/DL</td> <td >2.4-3.6</td> </tr> <tr> <td> Albumin/Globulin Ratio</td> <td>1.4 RATIO</td> <td >1.1-2.2</td> </tr> <tr> <td> LICTERUS</td> <td>< 2 </td> <td&gt ;0-7</td> </tr> <tr> <td>LHEMOLYSIS </td> <td>< 15 </td> <td>0-25&lt ;/td> </tr> <tr> <td>LTURBIDITY</ td> <td>< 20 </td> <td>0-20</td > </tr> <tr> <td>LALTV</td> <td>23 U/L</td> <td>1-35</td> </ tr> <tr> <th colspan="10">L200.0630 - 08/15/17 10:40</th> </tr> <tr> <td& gt;Phosphorus</td> <td>3.8 MG/DL</td> <td >2.5-4.5</td> </tr> <tr> <th colspan="10">L200.2000 - 08/15/17 10:40</th> </tr& gt; <tr> <td>MAG - Magnesium</td> &lt ;td>1.8 MG/DL</td> <td>1.6-2.3</td> </tr > <tr> <th colspan="10">L200.1855 - 10:40</th> </tr> <tr> <td>LDH - Lactate Dehydrogenase</td> <td>335 U/L</td> <td>313-618</td> </tr> <tr> < th colspan="10">L200.3850 - 08/15/17 10:40</th> </ tr> <tr> <td>TSH - Thyroid Stim Hormone</td> <td>1.51 miu/L</td> <td>0.47-4.68</td&gt ; </tr> <tr> <th colspan="10"&gt ;L200.3600 - 08/15/17 10:40</th> </tr> <tr> <td>Free T4 (Free Thyroxine)-Batch</td> <td> 2.44 ng/dL</td> <td>0.78-2.19</td> </tr&gt ; <tr> <th colspan="10">L750.0200 - 11:00</th> </tr> <tr> <td>LACTH-A </td> <td>13 pg/mL</td> <td>NRG</td > </tr> <tr> <th colspan="10" >L100.0050 - 08/28/17 11:32</th> </tr> <tr> <td>WBC - WHITE BLOOD COUNT</td> <td>13.9 T/ MM3</td> <td>4.5-11.0</td></tr> <tr& gt; <td>RED BLOOD COUNT</td> <td>5.00 M/MM3& lt;/td> <td>4.00-5.20</td> </tr> &lt ;tr> <td>HGB - HEMOGLOBIN</td> <td>13.7 GM/DL</ td> <td>12-16</td> </tr> <tr> <td>HCT - HEMATOCRIT</td> <td>41.2 %& lt;/td> <td>36-46</td> </tr> <tr> <td>MEAN CORPUSCULAR VOLUME</td> <td>82.4 UM3</td> <td>80-100</td> </tr> & lt;tr> <td>MEAN CORPUSCULAR HGB</td> <td> 27.4 UUG</td> <td>26-34</td> </tr> <tr> <td>MEAN CORPUSCULAR HGB CONC(MCHC</td> <td>33.3 GM/DL</td> <td>31-37</td> </tr> <tr> <td>RDW STANDARD DEVIATION</td> <td>40.8 FL</td> <td>36.9-50.2</td> </tr> <tr> <td>PLT - PLATELET COUNT</ td> <td>311 T/MM3</td> <td>130-400</td > </tr> <tr> <td>MEAN PLATELET VOLUME</td> <td>9.2 UM3</td> <td>9.4-12.4& lt;/td> </tr> <tr> <th colspan="10 ">L200.0020 - 08/28/17 11:32</th> </tr> <tr > <td>FUNGAL CULTURE.</td> <td>0.9 mg/dL& lt;/td> <td>0.7-1.2</td> </tr> < tr> <td>FUNGAL CULTURE, BLOOD.</td> <td> 14 RATIO</td> <td>6-26</td> </tr> <tr> <td>NA - Sodium</td> <td>142 MEQ/L</td> <td>134-144</td> </tr> <tr> <td>Potassium</td> <td>3.8 MEQ/ L</td> <td>3.6-5</td> </tr> < tr> <td>Chloride</td> <td>107 MEQ/L</td> <td>98-107</td> </tr> <tr> <td>CO2 - Carbon Dioxide</td> <td>26 MEQ/L</td& gt; <td>22-30</td> </tr> <tr> & lt;td>Anion Gap</td> <td>9 MEQ/L</td> &lt ;td>5-15</td> </tr> <tr> <td>BUN - Blood Urea Nitrogen</td> <td>13.0 MG/DL</td> <td>7-17</td> </tr> <tr> < td>Glomerular Filtration Rate</td> <td>73 </td> <td>NRG</td> </tr> <tr> & lt;td>Glucose</td> <td>120 MG/DL</td> &lt ;td>65-110</td> </tr> <tr> <td> Osmolality,Calculated</td> <td>274 MOSM/KG</td> <td>261-280</td> </tr> <tr> <td>Calcium</td> <td>9.6 MG/DL</td> < td>8.4-10.2</td> </tr> <tr> <td> Bilirubin,Total</td> <td>0.40 MG/DL</td> < td>0.20-1.30</td> </tr> <tr> <td& gt;Alkaline Phosphatase</td> <td>64 U/L</td> <td>38-126</td> </tr> <tr> <td >AST - Aspartate Amino Transfer</td> <td>18 U/L</td> <td>14-36</td> </tr> <tr> <td>TP - Total Protein</td> <td>6.8 g/dL</td&gt ; <td>6.3-8.2</td> </tr> <tr> &lt ;td>Albumin Level</td> <td>4.0 g/dL</td> <td>3.5-5.0</td> </tr> <tr> < td>Globulin</td> <td>2.8 G/DL</td> <td& gt;2.4-3.6</td> </tr> <tr> <td> Albumin/Globulin Ratio</td> <td>1.4 RATIO</td> <td>1.1-2.2</td> </tr> <tr> & lt;td>LICTERUS</td> <td>< 2 </td> <td>0-7</td> </tr> <tr><td> LHEMOLYSIS</td> <td>< 15 </td> <td >0-25</td> </tr> <tr> <td> LTURBIDITY</td> <td>< 20 </td> <td >0-20</td> </tr> <tr> <td>LALTV </td> <td>24 U/L</td> <td>1-35</td& gt; </tr> <tr> <th colspan="10"& gt;L200.1999 - 08/28/17 11:32</th> </tr> <tr> <td>MAG - Magnesium</td> <td>1.8 MG/DL</td > <td>1.6-2.3</td> </tr> <tr> <th colspan="10">L200.1855 - 08/28/17 11:32</th&gt ; </tr> <tr> <td>LDH - Lactate Dehydrogenase</td> <td>316 U/L</td> <td>313-618 </td> </tr> <tr> <th colspan=" 10">L100.0105 - 08/28/17 11:32</th> </tr> < tr> <td>NEUTROPHILS % (MANUAL)</td> &lt ;td>70.0 %</td> <td>33-66</td> < /tr> <tr> <td>LYMPHOCYTES % (MANUAL)</td& gt; <td>20.0 %</td> <td>23-45</td > </tr> <tr> <td>MONOCYTES &#37 ; (MANUAL)</td> <td>4.0 %</td> < td>0-9.0</td> </tr> <tr> <td> EOSINOPHILS % (MANUAL)</td> <td>5.0 %</ td> <td>0-4</td> </tr> <tr> <td>METAMYELOCYTES %</td> <td>1.0&amp ;#37;</td> <td>0-0</td> </tr> &lt ;tr><td>PROLYMPHOCYTES %</td> <td>9.7 T/ MM3</td> <td>1.8-7.7</td> </tr> & lt;tr> <td>NEUTROPHILS # (MANUAL)</td> <td& gt;0.6 T/MM3</td> <td>0-0.8</td> </tr> <tr> <td>MONOCYTES # (MANUAL)</td> & lt;td>0.7 T/MM3</td> <td>0-0.5</td> </tr > <tr> <td>METAMYELOCYTES #</td> & lt;td>0.1 T/MM3</td> <td>NRG</td> </tr& gt; <tr> <td>Lymphocytes # (Manual)</td> & lt;td>2.8 T/MM3</td> <td>1-4.8</td> </tr > <tr> <td>LRBCMOR</td> <td> Normal </td> <td>NRG</td> </tr> & lt;tr> <th colspan="10">L200.3850 - 08/28/17 12:30& lt;/th> </tr> <tr> <td>TSH - Thyroid Stim Hormone</td> <td>1.28 miu/L</td> <td>0.47-4.68</td> </tr> <tr> <th colspan="10">L750.0200 - 08/28/17 12:30</th> & lt;/tr> <tr> <td>LACTH-A</td> <td> 17 pg/mL</td> <td>NRG</td> </tr> <tr> <th colspan="10">L902.5645 - 08/28/17 12:30& lt;/th> </tr> <tr> <td>Cortisol Random, Serum - AMS</td> <td>6 ug/dL</td> & lt;td>3-20</td> </tr> <tr> <th colspan="10">L200.3600 - 08/28/17 12:30</th> </tr& gt; <tr> <td>Free T4 (Free Thyroxine)-Batch</td& gt; <td>2.05 ng/dL</td> <td>0.78-2.19</td > </tr> <tr> <th colspan="10" >L100.0050 - 09/09/17 11:35</th> </tr> <tr> <td>WBC - WHITE BLOOD COUNT</td> <td>11.7 T/MM3& lt;/td> <td>4.5-11.0</td> </tr> < tr> <td>RED BLOOD COUNT</td> <td>5.16 M/ MM3</td> <td>4.00-5.20</td> </tr> <tr> <td>HGB - HEMOGLOBIN</td> <td> 14.3 GM/DL</td> <td>12-16</td> </tr> <tr> <td>HCT - HEMATOCRIT</td> <td& gt;42.4 %</td> <td>36-46</td> </tr& gt; <tr> <td>MEAN CORPUSCULAR VOLUME</td> <td>82.2 UM3</td> <td>80-100</td> </tr> <tr> <td>MEAN CORPUSCULAR HGB</td> <td>27.7 UUG</td> <td>26-34</td> </tr> <tr> <td>MEAN CORPUSCULAR HGB CONC( MCHC</td> <td>33.7 GM/DL</td> <td>31- 37</td> </tr> <tr> <td>RDW STANDARD DEVIATION</td> <td>40.7 FL</td> &lt ;td>36.9-50.2</td> </tr> <tr> <td& gt;PLT - PLATELET COUNT</td> <td>339 T/MM3</td> <td>130-400</td> </tr> <tr> <td>MEAN PLATELET VOLUME</td> <td>9.1 UM3</td> <td>9.4-12.4</td> </tr> <tr> <td>NEUTROPHILS % (AUTO)</td> <td> 66.2 %</td> <td>33-66</td> </tr&gt ; <tr> <td>LYMPHOCYTES % (AUTO)</td> <td>22.1 %</td> <td>23-45</td&gt ; </tr> <tr> <td>MONOCYTES % (AUTO)& lt;/td> <td>6.2 %</td> <td>0-9.0</td > </tr> <tr> <td>EOSINOPHILS &# 37; (AUTO)</td> <td>4.9 %</td> < td>0-4</td> </tr> <tr> <td> BASOPHILS % (AUTO)</td> <td>0.3 %</td> <td>0-2</td> </tr> <tr> & lt;td>IMMATURE GRANULOCYTE % (AUTO)</td> <td>0.3 %</td> <td>0.0-0.5</td> </tr> <tr> <td>NEUTROPHILS # (AUTO)</td> <td&gt ;7.8 T/MM3</td> <td>1.8-7.7</td> </tr> <tr> <td>LYMPHOCYTES # (AUTO)</td> & lt;td>2.6 T/MM3</td> <td>1-4.8</td> </tr > <tr> <td>MONOCYTES # (AUTO)</td> <td>0.7 T/MM3</td> <td>0-0.8</td> < /tr> <tr> <td>EOSINOPHILS # (AUTO)</td> <td>0.6 T/MM3</td> <td>0-0.5</td> </tr> <tr> <td>BASOPHILS # (AUTO)</td&gt ; <td>0.0 T/MM3</td> <td>0-0.2</td> &lt ;/tr> <tr> <td>IMMATURE GRANULOCYTE # (AUTO)</ td> <td>0.03 T/MM3</td> <td>0.00-0.03< /td> </tr> <tr> <th colspan="10& quot;>L200.0020 - 09/09/17 11:35</th> </tr> <tr& gt; <td>FUNGAL CULTURE.</td> <td>1.0 mg/dL</ td> <td>0.7-1.2</td> </tr> <tr&gt ; <td>FUNGAL CULTURE, BLOOD.</td> <td>13 RATIO</td> <td>6-26</td> </tr> & lt;tr> <td>NA - Sodium</td> <td>143 MEQ/L </td> <td>134-144</td> </tr> < tr> <td>Potassium</td> <td>4.1 MEQ/L</ td> <td>3.6-5</td> </tr> <tr> <td>Chloride</td> <td>105 MEQ/L</td> <td>98-107</td> </tr> <tr> <td>CO2- Carbon Dioxide</td> <td>24 MEQ/L</td > <td>22-30</td> </tr> <tr> <td>Anion Gap</td> <td>14MEQ/L</td> <td>5-15</td> </tr> <tr> & lt;td>BUN - Blood Urea Nitrogen</td> <td>13.0 MG/DL</ td> <td>7-17</td> </tr> <tr> <td>Glomerular Filtration Rate</td> <td>65 & lt;/td> <td>NRG</td> </tr> <tr> <td>Glucose</td> <td>93 MG/DL</td> &lt ;td>65-110</td> </tr> <tr> <td&gt ;Osmolality,Calculated</td> <td>275 MOSM/KG</td> <td>261-280</td> </tr> <tr> < td>Calcium</td> <td>9.6 MG/DL</td> <td >8.4-10.2</td> </tr> <tr> <td> Bilirubin,Total</td> <td>0.60 MG/DL</td> &lt ;td>0.20-1.30</td> </tr> <tr> <td >Alkaline Phosphatase</td> <td>76 U/L</td> & lt;td>38-126</td> </tr> <tr> <td& gt;AST - Aspartate Amino Transfer</td> <td>18 U/L</td&gt ; <td>14-36</td> </tr> <tr> <td>TP - Total Protein</td> <td>7.2 g/dL</td& gt; <td>6.3-8.2</td> </tr> <tr> <td>Albumin Level</td> <td>4.3 g/dL</td& gt; <td>3.5-5.0</td> </tr> <tr> <td>Globulin</td> <td>2.9 G/DL</td> <td>2.4-3.6</td> </tr> <tr> &lt ;td>Albumin/Globulin Ratio</td> <td>1.5 RATIO</td> <td>1.1-2.2</td> </tr> <tr> & lt;td>LICTERUS</td> <td>< 2 </td> <td& gt;0-7</td> </tr> <tr> <td> LHEMOLYSIS</td> <td>< 15 </td> <td >0-25</td> </tr> <tr> <td> LTURBIDITY</td> <td>< 20 </td> <td >0-20</td> </tr> <tr> <td> LALTV</td> <td>22 U/L</td> <td>1-35&lt ;/td> </tr> <tr> <th colspan="10&quot ;>L300.3490 - 09/09/17 11:35</th> </tr> <tr> <td>Troponin I</td> <td><0.012 ng/ml</ td> <td>0-0.12</td> </tr> <tr&gt ; <th colspan="10">M110.018 - 09/11/17 12:30</th> </tr> <tr> <td>ANTI-D</td> <td >No Growth After 5 Days </td> <td>NRG</td> </tr> <tr> <th colspan="10"> M110.018 - 09/11/17 12:36</th> </tr> <tr> <td>ANTI-D</td> <td>No Growth After 5 Days </ td> <td>NRG</td> </tr> <tr> <th colspan="10">L600.0100- 09/11/17 12:40</th> </tr> <tr> <td>POTASSIUM</td> <td>Urine, Void-CC/notCC </td> <td>NRG</td& gt; </tr> <tr> <td>CHLORIDE</td> <td>YELLOW </td> <td>YELLOW</td> </tr> <tr> <td>ANIONGAP</td> <td>CLEAR </td> <td>NRG</td> </tr& gt; <tr> <td>BLOOD UREA NITROGEN</td> <td>5.5 </td> <td>5.0-8.0</td> </tr > <tr> <td>BUN/CREATININE RATIO</td> <td>NEGATIVE </td> <td>NEGATIVE</td> </tr> <tr> <td>GLUCOSE</td> & lt;td>NEGATIVE </td> <td>NEGATIVE</td> < /tr> <tr> <td>CALCIUM</td> <td> NEGATIVE </td> <td>NEGATIVE</td> </tr> <tr> <td>BILIRUBIN, CONJUG &amp; UNCONJUG&lt ;/td> <td>NEGATIVE </td> <td>NEGATIVE< /td> </tr> <tr> <td>Specific [place], Urine</td> <td><=1.005 </td> <td& gt;1.015-1.025</td> </tr> <tr> <td> Leukocyte Esterase,Urine</td> <td>NEGATIVE </td> <td>NEGATIVE</td> </tr> <tr> <td>Nitrate,Urine</td> <td>NEGATIVE </td> <td>NEGATIVE</td> </tr> <tr> <td>Urobilinogen,Urine</td> <td>0.2 EU/DL</td > <td>NORMAL</td> </tr> <tr> <td>Occult Blood,Urine - Dipstick</td> <td> NEGATIVE </td> <td>NEGATIVE</td> </tr> <tr> <td>UrineMicroscopic (UA)</td> & lt;td>Microscopic Not Ind. </td> <td>NRG</td> </tr> <tr> <th colspan="10"> L200.0020 - 04 12:40</th> </tr> <tr> <td>FUNGAL CULTURE.</td> <td>0.9 mg/dL</td&gt ; <td>0.7-1.2</td> </tr> <tr> <td>FUNGAL CULTURE, BLOOD.</td> <td>17 RATIO& lt;/td> <td>6-26</td> </tr> <tr& gt; <td>NA - Sodium</td> <td>144 MEQ/L</ td> <td>134-144</td> </tr> <tr&gt ; <td>Potassium</td> <td>4.0 MEQ/L</td&gt ; <td>3.6-5</td> </tr> <tr> &lt ;td>Chloride</td> <td>107 MEQ/L</td> < td>98-107</td> </tr> <tr> <td> CO2 - Carbon Dioxide</td> <td>22 MEQ/L</td> < td>22-30</td> </tr> <tr> <td> Anion Gap</td> <td>15 meq/L</td> <td>5 -15</td> </tr> <tr> <td>BUN - Blood Urea Nitrogen</td> <td>15.0 MG/DL</td> <td>7-17</td> </tr> <tr> <td >Glomerular Filtration Rate</td> <td>73 </td> <td>NRG</td> </tr> <tr> &lt ;td>Glucose</td> <td>115 MG/DL</td> < td>65-110</td> </tr> <tr> <td> Osmolality,Calculated</td> <td>279 MOSM/KG</td> <td>261-280</td> </tr> <tr> <td>Calcium</td> <td>9.2 MG/DL</td> & lt;td>8.4-10.2</td> </tr> <tr> < td>Bilirubin,Total</td> <td>0.40 MG/DL</td> <td>0.20-1.30</td> </tr> <tr> & lt;td>Alkaline Phosphatase</td> <td>67 U/L</td> <td>38-126</td> </tr> <tr> <td>AST- Aspartate Amino Transfer</td> <td>18 U/L& lt;/td> <td>14-36</td> </tr> <tr& gt; <td>TP - Total Protein</td> <td>7.0 g/dL</ td> <td>6.3-8.2</td> </tr> <tr&gt ; <td>Albumin Level</td> <td>4.3 g/dL</td > <td>3.5-5.0</td> </tr> <tr> <td>Globulin</td> <td>2.7 G/DL</td> <td>2.4-3.6</td> </tr> <tr> <td>Albumin/Globulin Ratio</td> <td>1.6 RATIO</ td> <td>1.1-2.2</td> </tr> <tr&gt ; <td>LICTERUS</td> <td>< 2 </td& gt; <td>0-7</td> </tr> <tr> & lt;td>LHEMOLYSIS</td> <td>< 15 </td> <td>0-25</td> </tr> <tr> < td>LTURBIDITY</td> <td>< 20 </td> <td>0-20</td> </tr> <tr> <td& gt;LALTV</td> <td>23 U/L</td> <td>1-35 </td> </tr> <tr> <th colspan=" 10">M120.0100 - 09/11/17 12:40</th> </tr> < tr> <td>Urine Culture</td> <td> -No further testing will be performed </td> <td>NRG</td> </tr> <tr> <th colspan="10"> L100.0050 - 09/11/17 12:40</th> </tr> <tr> <td>WBC - WHITE BLOOD COUNT</td> <td>15.9 T/MM3& lt;/td> <td>4.5-11.0</td> </tr> <tr&gt ; <td>RED BLOODCOUNT</td> <td>4.96 M/MM3< /td> <td>4.00-5.20</td> </tr> <tr&gt ; <td>HGB - HEMOGLOBIN</td> <td>13.6 GM/DL& lt;/td> <td>12-16</td> </tr> <tr& gt; <td>HCT - HEMATOCRIT</td> <td>41.5 %< /td> <td>36-46</td> </tr> <tr&gt ; <td>MEAN CORPUSCULAR VOLUME</td> <td>83.7 UM3</td> <td>80-100</td> </tr> & lt;tr> <td>MEAN CORPUSCULAR HGB</td> <td> 27.4 UUG</td> <td>26-34</td> </tr> <tr> <td>MEAN CORPUSCULAR HGB CONC(MCHC</td> <td>32.8 GM/DL</td> <td>31-37</td> </tr> <tr> <td>RDW STANDARD DEVIATION</td& gt; <td>43.7 FL</td> <td>36.9-50.2</td&gt ; </tr> <tr> <td>PLT - PLATELET COUNT& lt;/td> <td>345 T/MM3</td> <td>130-400&lt ;/td> </tr> <tr> <td>MEAN PLATELET VOLUME</td> <td>9.8 UM3</td> <td>9.4- 12.4</td> </tr> <tr> <th colspan=& quot;10">L200.1855 - 09/11/17 12:40</th> </tr> <tr> <td>LDH - Lactate Dehydrogenase</td> <td>362 U/L</td> <td>313-618</td> </tr& gt; <tr> <th colspan="10">L100.0105 - 05/19 12:40</th> </tr> <tr> <td> NEUTROPHILS % (MANUAL)</td> <td>89.0 %</ td> <td>33-66</td> </tr> <tr> <td>LYMPHOCYTES % (MANUAL)</td> <td&gt ;10.0 %</td> <td>23-45</td> </tr&gt ; <tr> <td>METAMYELOCYTES %</td> <td>1.0 %</td> <td>0-0</td> </tr> <tr> <td>PROLYMPHOCYTES %</ td> <td>14.2 T/MM3</td> <td>1.8-7.7</ td> </tr> <tr> <td>METAMYELOCYTES #& lt;/td> <td>0.2 T/MM3</td> <td>NRG</td > </tr> <tr> <td>Lymphocytes # ( Manual)</td> <td>1.6 T/MM3</td> <td>1-4.8</ td> </tr> <tr> <td>LRBCMOR</td&gt ; <td>Normal </td> <td>NRG</td> </tr> <tr> <th colspan="10"> L200.3850 - 09/11/17 12:40</th> </tr> <tr> <td>TSH - Thyroid Stim Hormone</td> <td>0.96 mIU /L</td> <td>0.47-4.68</td> </tr> <tr> <th colspan="10">L750.8263 - 09/11/17 12:40&lt ;/th> </tr> <tr> <td>ESR - Sedimentation Rate - AMS</td> <td>5 mm/h</td> <td>0-23</td> </tr> <tr> < th colspan="10">L200.3600 - 09/11/17 12:40</th> </ tr> <tr> <td>Free T4 (Free Thyroxine)-Batch</td& gt; <td>1.85 ng/dL</td> <td>0.78-2.19</td& gt; </tr> <tr> <th colspan="10"& gt;L908.3170 - 09/11/17 12:40</th> </tr> <tr> & lt;td>Free T3 - AMS</td> <td>2.1 pg/mL</td> <td>1.7-3.7</td> </tr> <tr> & lt;th colspan="10">L100.0050 - 09/19/17 10:30</th> &lt ;/tr> <tr> <td>WBC - WHITE BLOOD COUNT</td&gt ; <td>20.8 T/MM3</td> <td>4.5-11.0</td&gt ; </tr> <tr> <td>RED BLOOD COUNT</td&gt ; <td>4.90 M/MM3</td> <td>4.00-5.20</td& gt; </tr> <tr> <td>HGB - HEMOGLOBIN</td& gt; <td>13.6 GM/DL</td> <td>12-16</td&gt ; </tr> <tr> <td>HCT - HEMATOCRIT</ td> <td>40.9 %</td> <td>36-46< /td> </tr> <tr> <td>MEAN CORPUSCULAR VOLUME</td> <td>83.5 UM3</td> & lt;td>80-100</td> </tr> <tr> <td& gt;MEAN CORPUSCULAR HGB</td> <td>27.8 UUG</td> <td>26-34</td> </tr> <tr> &lt ;td>MEAN CORPUSCULAR HGB CONC(MCHC</td> <td>33.3 GM/DL& lt;/td> <td>31-37</td> </tr> <tr& gt; <td>RDW STANDARD DEVIATION</td> <td> 43.2 FL</td> <td>36.9-50.2</td> </tr> <tr> <td>PLT - PLATELET COUNT</td> &lt ;td>316 T/MM3</td> <td>130-400</td> </tr > <tr> <td>MEAN PLATELET VOLUME</td> <td>9.1 UM3</td> <td>9.4-12.4</td> & lt;/tr> <tr> <th colspan="10">L100.0105 - 10:30</th></tr> <tr> <td> NEUTROPHILS % (MANUAL)</td> <td>69.0 %</ td> <td>33-66</td> </tr> <tr> <td>LYMPHOCYTES % (MANUAL)</td> <td&gt ;27.0 %</td> <td>23-45</td> </tr&gt ; <tr> <td>MONOCYTES % (MANUAL)</td> <td>2.0 %</td> <td>0-9.0</td> </tr> <tr> <td>EOSINOPHILS % ( MANUAL)</td> <td>1.0 %</td> <td& gt;0-4</td> </tr> <tr> <td> METAMYELOCYTES %</td> <td>1.0 %</td> <td>0-0</td> </tr> <tr> <td>PROLYMPHOCYTES %</td> <td>14.4 T/MM3&lt ;/td> <td>1.8-7.7</td> </tr> <tr> <td>NEUTROPHILS # (MANUAL)</td> <td>0.4 T/ MM3</td> <td>0-0.8</td> </tr> <tr > <td>MONOCYTES # (MANUAL)</td> <td>0.2 T /MM3</td> <td>0-0.5</td> </tr> & lt;tr> <td>METAMYELOCYTES #</td> <td>0.2 T/ MM3</td> <td>NRG</td> </tr> < tr> <td>Lymphocytes # (Manual)</td> <td> 5.6 T/MM3</td> <td>1-4.8</td> </tr> <tr> <td>LRBCMOR</td> <td>Normal & lt;/td> <td>NRG</td> </tr> <tr> <th colspan="10">L200.0020 - 04/ 10:30</th> </tr> <tr> <td>FUNGAL CULTURE.</td> <td>1.0 mg/dL</td> <td>0.7-1.2</td> </tr> <tr> <td>FUNGAL CULTURE, BLOOD.&lt ;/td><td>13 RATIO</td> <td>6-26</td> </tr> <tr> <td>NA - Sodium</td> <td>144 MEQ/L</td> <td>134-144</td> & lt;/tr> <tr> <td>Potassium</td> <td& gt;3.6 MEQ/L</td> <td>3.6-5</td> </tr> <tr> <td>Chloride</td> <td>105 MEQ/L</td> <td>98-107</td> </tr> <tr> <td>CO2 - Carbon Dioxide</td> <td&gt ;28 MEQ/L</td> <td>22-30</td> </tr> <tr> <td>Anion Gap</td> <td>11 meq /L</td> <td>5-15</td> </tr> <tr& gt; <td>BUN - Blood Urea Nitrogen</td> <td> 13.0 MG/DL</td> <td>7-17</td> </tr> <tr> <td>Glomerular Filtration Rate</td> <td >65 </td> <td>NRG</td> </tr> & lt;tr> <td>Glucose</td> <td>113 MG/DL</td > <td>65-110</td> </tr> <tr> <td>Osmolality,Calculated</td> <td>278 MOSM/ KG</td> <td>261-280</td> </tr> < tr> <td>Calcium</td> <td>9.3 MG/DL</td > <td>8.4-10.2</td> </tr> <tr> <td>Bilirubin,Total</td> <td>0.40 MG/DL</td&gt ; <td>0.20-1.30</td> </tr> <tr> <td>Alkaline Phosphatase</td> <td>72 U/L</td&gt ; <td>38-126</td> </tr> <tr>< td>AST - Aspartate Amino Transfer</td> <td>14 U/L</td > <td>14-36</td> </tr> <tr> <td>TP - Total Protein</td> <td>6.6 g/dL</ td> <td>6.3-8.2</td> </tr> <tr&gt ; <td>Albumin Level</td> <td>4.1 g/dL</td > <td>3.5-5.0</td> </tr> <tr> <td>Globulin</td> <td>2.5 G/DL</td> <td>2.4-3.6</td></tr> <tr> < td>Albumin/Globulin Ratio</td> <td>1.6 RATIO</td> <td>1.1-2.2</td> </tr> <tr> <td>LICTERUS</td> <td>< 2 </td> <td>0-7</td> </tr> <tr> <td& gt;LHEMOLYSIS</td> <td>< 15 </td> &lt ;td>0-25</td> </tr> <tr> <td> LTURBIDITY</td> <td>< 20 </td> <td >0-20</td> </tr> <tr> <td> LALTV</td><td>23 U/L</td> <td>1-35</td> </tr> <tr> <th colspan="10"> L200.06 - 09/19/17 10:30</th> </tr> <tr> <td>Phosphorus</td> <td>3.6 MG/DL</td> < td>2.5-4.5</td> </tr> <tr> <th colspan="10">L200.199909/19/17 10:30</th> </tr& gt; <tr> <td>MAG - Magnesium</td> &lt ;td>2.0 MG/DL</td> <td>1.6-2.3</td> </tr > <tr> <th colspan="10">L200.1854 10:30</th> </tr> <tr> <td> LDH - Lactate Dehydrogenase</td> <td>300 U/L</td> <td>313-618</td></tr> <tr> < th colspan="10">L200.38509/19/17 10:30</th> </ tr> <tr> <td>TSH - Thyroid Stim Hormone</td&gt ; <td>3.52 mIU/L</td> <td>0.47-4.68</td& gt; </tr> <tr> <th colspan="10"& gt;L200.169909/19/17 10:30</th> </tr> <tr> <td>Creatine Kinase - CK</td> <td>47 U/L</td& gt; <td>30-135</td> </tr> <tr> <th colspan="10">L200.185909/19/17 10:30</th> </tr><tr> <td>CRP - C-Reactive Protein</td> <td>7.6 mg/L</td> <td>0-9</td> & lt;/tr> <tr> <th colspan="10"> L902.5645 - 09/19/17 10:30</th> </tr> <tr> <td>Cortisol Random, Serum - AMS</td> <td>3 ug/ dL</td> <td>3-20</td> </tr> < tr> <th colspan="10">L750.8263 - 09/19/17 10:30</ th> </tr> <tr> <td>ESR - Sedimentation Rate - AMS</td> <td>10 mm/h</td> <td>0-23</td> </tr> </tbody> </ table> </text> <entry> <organizer moodCode="EVN&quot ; classCode="BATTERY"> <templateId root=" [id number]" /> <id nullFlavor="NA&quot ; /> <code codeSystem="local" code="CBC" displayName="CBC WITH PLATELET AND DIFFERENTIAL" /> < statusCode code="completed" /> <component> < observation moodCode="EVN" classCode="OBS"> < templateId root="[id number]" /> < id nullFlavor="NA" /> <code codeSystem="local&quot ; code="SEGR" displayName="SEGS" /> <statusCode code=& quot;completed" /> <effectiveTime value="[id number]& quot; /> <value unit="%" xsi:type="PQ&quot ; value="68.6" /> <referenceRange> < observationRange> <text>NRG</text> </ observationRange> </referenceRange> </observation&gt ; </component> <component> <observation moodCode ="EVN" classCode="OBS"> <templateId root=& quot;2.16.840.1.190158.10..22.4.2" /> <id nullFlavor=&quot ;NA" /> <code codeSystem="local" code="BASOR& quot; displayName="*BASOPHILS" /> <statusCode code=& quot;completed" /> <effectiveTime value="425896465591& quot; /> <value unit="%" xsi:type="PQ" value ="0.9" /><referenceRange> <observationRange&gt ; <text>NRG</text> </observationRange> </referenceRange> </observation> </component&gt ; <component> <observation moodCode="EVN" classCode="OBS"> <templateId root=" 2.16.840.1.000711.10.20.22.4.2" /> <id nullFlavor="NA&quot ; /> <code codeSystem="local" code="EOSR" displayName="*EOSINOPHILS" /> <statusCode code=" completed" /> <effectiveTime value="185869263512" /> <value unit="%" xsi:type="PQ" value="2.8" /> <referenceRange> < observationRange> <text>NRG</text> </ observationRange> </referenceRange> </observation&gt ; </component> <component> <observation moodCode ="EVN" classCode="OBS"> <templateId root=& quot;2.16.840.1.114173.10..22.4.2" /> <id nullFlavor=&quot ;NA" /> <code codeSystem="local" code="ADIFP& quot; displayName="AUTOMATED DIFF" /> <statusCode code= "completed" /> <effectiveTime value="529308113134& quot; /> <value unit="" xsi:type="PQ" value=& quot;PERFORMED" /> <referenceRange> < observationRange> <text>NRG</text> </ observationRange> </referenceRange> </observation&gt ; </component> <component> <observation moodCode ="EVN" classCode="OBS"> <templateId root=& quot;2.16.840.1.532241.10..22.4.2" /> <id nullFlavor=&quot ;NA" /> <code codeSystem="local" code="LYMPR& quot; displayName="*LYMPHOCYTES" /> <statusCode code=& quot;completed" /> <effectiveTime value="617020267805& quot; /> <value unit="%" xsi:type="PQ&quot ; value="21.0" /> <referenceRange> < observationRange> <text>NRG</text> </ observationRange> </referenceRange> </observation&gt ; </component> <component> <observation moodCode ="EVN" classCode="OBS"> <templateId root=& quot;2.16.840.1.186455.10.20.22.4.2" /> <id nullFlavor=&quot ;NA" /> <code codeSystem="local" code="MONOR" displayName="*MONOCYTES" /> <statusCode code=" completed" /> <effectiveTime value="908809916017" /> <value unit="%" xsi:type="PQ" value="6.7" /> <referenceRange> < observationRange> <text>NRG</text> </ observationRange> </referenceRange> </observation> </component> <component> <observation moodCode= "EVN" classCode="OBS"> <templateId root=&quot ;2.16.840.1.297033.10.20.22.4.2" /> <id nullFlavor="NA& quot; /> <code codeSystem="local" code="ABACT&quot ; displayName="*ABSOLUTE BASOPHILS" /> <statusCode code=" completed" /> <effectiveTime value="953689621231" /> <value unit="10*3/uL" xsi:type="PQ" value= "0.10" /> <referenceRange> < observationRange> <text>0.00-0.20</text> </observationRange> </referenceRange> </observation> </component> <component> <observation moodCode= "EVN" classCode="OBS"> <templateId root=&quot ;2.16.840.1.729820.10.20.22.4.2" /> <id nullFlavor="NA& quot; /> <code codeSystem="local" code="AEOCT&quot ; displayName="*ABSOLUTE EOSINOPHILS" /><statusCode code=" completed" /> <effectiveTime value="938683145427" /> <value unit="10*3/uL" xsi:type="PQ" value= "0.40" /> <referenceRange> < observationRange> <text>0.00-0.50</text> </observationRange> </referenceRange> </ observation> </component> <component> < observation moodCode="EVN" classCode="OBS"> < templateId root="2.16.840.1.560679.10.20.22.4.2" /> < id nullFlavor="NA" /> <code codeSystem="local&quot ; code="ALYCT" displayName="*ABSOLUTE LYMPHOCYTES" /> <statusCode code="completed" /> < effectiveTime value="947714252869" /> <value unit=&quot ;10*3/uL" xsi:type="PQ" value="2.60" /> &lt ;referenceRange> <observationRange> <text&gt ;1.00-3.00</text> </observationRange> </ referenceRange> </observation> </component> < component> <observation moodCode="EVN" classCode=" OBS"> <templateId root="2.16.840.1.461506.10.20.22.4.2& quot; /> <id nullFlavor="NA" /> <code codeSystem="local" code="AMOCT" displayName="*ABSOLUTE MONOCYTES" /> <statusCode code="completed" /> <effectiveTime value="773142973927" /> < value unit="10*3/uL" xsi:type="PQ" value="0.80" /& gt; <referenceRange> <observationRange> <text>0.30-1.00</text> </observationRange> </referenceRange> </observation> </component&gt ; <component> <observation moodCode="EVN" classCode="OBS"> <templateId root=" 2.16.840.1.798043.10.20.22.4.2" /> <id nullFlavor="NA& quot; /> <code codeSystem="local" code="ANECT&quot ; displayName="*ABSOLUTE NEUTROPHILS" /> <statusCode code="completed" /> <effectiveTime value=" 537807754692" /> <value unit="10*3/uL" xsi:type=& quot;PQ" value="8.50" /> <interpretationCode codeSystem ="local" code="*" /> <referenceRange> <observationRange> <text>1.80-7.80</text&gt ; </observationRange> </referenceRange> </ observation> </component> <component> < observation moodCode="EVN" classCode="OBS"> < templateId root="2.16.840.1.553930.10..22.4.2" /> <id nullFlavor="NA" /> <code codeSystem="local" code="MPV" displayName="MPV" /> <statusCode code="completed" /> <effectiveTime value=" 296844333648" /> <value unit="fL" xsi:type=" PQ" value="7.4" /> <referenceRange> <observationRange> <text>7.4-10.4</text> </observationRange> </referenceRange> </ observation> </component> <component> < observation moodCode="EVN" classCode="OBS"> < templateId root="2.16.840.1.612704.10.20.22.4.2" /> < id nullFlavor="NA" /> <code codeSystem="local&quot ; code="PLT" displayName="PLATELETS" /> < statusCode code="completed" /> <effectiveTime value=& quot;327614426686" /> <value unit="10*3/uL" xsi: type="PQ" value="316" /> <referenceRange> <observationRange> <text>159-386</text& gt; </observationRange> </referenceRange> </observation> </component> <component> &lt ;observation moodCode="EVN" classCode="OBS"> &lt ;templateId root="2.16.840.1.676751.10.20.22.4.2" /> < id nullFlavor="NA" /> <code codeSystem="local" code=& quot;WBCIR" displayName="WBC" /> <statusCode code=" completed" /> <effectiveTime value="563075876400" /> <value unit="10*3/uL" xsi:type="PQ" value= "12.4" /> <interpretationCode codeSystem="local& quot; code="*" /> <referenceRange> < observationRange> <text>3.6-11.2</text> & lt;/observationRange> </referenceRange> </ observation> </component> <component> < observation moodCode="EVN" classCode="OBS"> < templateId root="2.16.840.1.561422.10.20.22.4.2" /> < id nullFlavor="NA" /> <code codeSystem="local&quot ; code="RBC" displayName="RBC" /> < statusCode code="completed" /> <effectiveTime value=& quot;441456942816" /> <value unit="" xsi:type=& quot;PQ" value="5.21" /> <interpretationCode codeSystem="local" code="*" /> < referenceRange> <observationRange> <text> 3.63-4.92</text> </observationRange> </ referenceRange> </observation> </component> < component> <observation moodCode="EVN" classCode=" OBS"> <templateId root="2.16.840.1.708255.10.20.22.4.2& quot; /> <id nullFlavor="NA" /> <code codeSystem="local" code="HGB" displayName="HEMOGLOBIN& quot; /> <statusCode code="completed" /> & lt;effectiveTime value="263015426202" /> <value unit=& quot;" xsi:type="PQ" value="14.2" /> < referenceRange> <observationRange> <text>11.0- 14.3</text> </observationRange> </ referenceRange> </observation> </component> < component> <observation moodCode="EVN" classCode=" OBS"> <templateId root="2.16.840.1.670053.10.20.22.4.2& quot; /> <id nullFlavor="NA" /> <code codeSystem="local" code="HCT" displayName="HEMATOCRIT& quot; /> <statusCode code="completed" /> < effectiveTime value="503146223378" /> <value unit=&quot ;%" xsi:type="PQ" value="41.8" /> & lt;referenceRange> <observationRange> <text& gt;31.2-41.9</text> </observationRange> </ referenceRange> </observation> </component> < component> <observation moodCode="EVN" classCode=" OBS"> <templateId root="2.16.840.1.541579.10.20.22.4.2& quot; /> <id nullFlavor="NA" /> <code codeSystem="local" code="MCV" displayName="MCV" /& gt; <statusCode code="completed" /> < effectiveTime value="044592315622" /> <value unit="fL& quot; xsi:type="PQ" value="80.2" /> < referenceRange> <observationRange> <text> 79.0-98.0</text> </observationRange> </ referenceRange> </observation> </component> < component> <observation moodCode="EVN" classCode=" OBS"> <templateId root="2.16.840.1.005719.10.20.22.4.2& quot; /> <id nullFlavor="NA" /> <code codeSystem="local" code="MCH" displayName="MCH" /& gt; <statusCode code="completed" /> < effectiveTime value="796893229306" /> <value unit=&quot ;pg" xsi:type="PQ" value="27.2" /> < referenceRange> <observationRange> <text>27.0-33.0& lt;/text> </observationRange> </referenceRange& gt; </observation> </component> <component> <observation moodCode="EVN" classCode="OBS"> <templateId root="2.16.840.1.413000.10.20.22.4.2" /> & lt;id nullFlavor="NA" /> <code codeSystem="local& quot; code="MCHC" displayName="MCHC" /> < statusCode code="completed" /> <effectiveTime value=& quot;126374334182" /> <value unit="" xsi:type=& quot;PQ" value="33.9" /> <referenceRange> <observationRange> <text>32.0-36.0</text> </observationRange> </referenceRange> </ observation> </component> <component> < observation moodCode="EVN" classCode="OBS"> < templateId root="2.16.840.1.434228.10.20.22.4.2" /> < id nullFlavor="NA" /><code codeSystem="local" code=& quot;RDW" displayName="RDW" /> <statusCode code=" completed" /> <effectiveTime value="581698787480" /> <value unit="%" xsi:type="PQ" value="13.9" /> <referenceRange> < observationRange> <text>12.3-17.0</text> </observationRange> </referenceRange> </observation> </component> <component> <observation moodCode= "EVN" classCode="OBS"> <templateId root=&quot ;2.16.840.1.607513.10.20.22.4.2" /> <id nullFlavor="NA& quot; /> <code codeSystem="local" code="RDWSD&quot ; displayName="RDWSD" /> <statusCode code=" completed" /> <effectiveTime value="203445646615" /> <value unit="" xsi:type="PQ" value="39.4& quot; /> <referenceRange> <observationRange> <text>37.1-47.8</text> </observationRange& gt; </referenceRange> </observation> </component& gt; </organizer> </entry> <entry> <organizer moodCode="EVN" classCode="BATTERY"> <templateId root="2.16.840.1.556955.10.20.22.4.1" /> <id nullFlavor=& quot;NA" /> <code codeSystem="local" code="CMP& quot; displayName="COMPREHENSIVE METABOLIC PANEL" /> < statusCode code="completed" /> <component> < observation moodCode="EVN" classCode="OBS"> < templateId root="2.16.840.1.791074.10.20.22.4.2" /> < id nullFlavor="NA" /> <code codeSystem="local&quot ; code="BILT" displayName="BILIFUBIN TOTAL" /> & lt;statusCode code="completed" /> <effectiveTime value= "276845787825" /> <value unit="" xsi:type=" PQ" value="0.70" /> <referenceRange> <observationRange> <text>0.20-1.00</text> </observationRange> </referenceRange> </ observation> </component> <component> < observation moodCode="EVN" classCode="OBS"> < templateId root="2.16.840.1.489336.10.20.22.4.2" /> <id nullFlavor="NA" /> <code codeSystem="local" code="TP" displayName="TOTAL PROTEIN" /> < statusCode code="completed" /> <effectiveTime value=& quot;726579476654" /> <value unit="" xsi:type=& quot;PQ" value="7.0" /> <referenceRange> <observationRange> <text>6.4-8.2</text> </observationRange> </referenceRange> </ observation> </component> <component> < observation moodCode="EVN" classCode="OBS"> < templateId root="2.16.840.1.878928.10.20.22.4.2" /> < id nullFlavor="NA" /> <code codeSystem="local&quot ; code="ALB" displayName="ALBUMIN" /> < statusCode code="completed" /> <effectiveTime value=& quot;660949193395" /> <value unit="" xsi:type=& quot;PQ" value="3.4" /> <referenceRange> <observationRange> <text>3.4-5.0</text> </observationRange> </referenceRange> </ observation> </component> <component><observation moodCode="EVN" classCode="OBS"> <templateId root="2.16.840.1.994358.10.20.22.4.2" /> <id nullFlavor ="NA" /> <code codeSystem="local" code="GLOB& quot; displayName="*GLOBULIN" /> <statusCode code=&quot ;completed" /> <effectiveTime value="083134286011&quot ; /> <value unit="" xsi:type="PQ" value=&quot ;3.6" /> <interpretationCode codeSystem="local" code="*" /> <referenceRange> < observationRange> <text>2.3-3.5</text> & lt;/observationRange> </referenceRange> </ observation> </component> <component> < observation moodCode="EVN"classCode="OBS"> < templateId root="2.16.840.1.012870.10.20.22.4.2" /> < id nullFlavor="NA" /> <code codeSystem="local&quot ; code="AGR" displayName="*A/G RATIO" /> < statusCode code="completed" /> <effectiveTime value=& quot;078493502269" /> <value unit="" xsi:type=& quot;PQ" value="0.9" /> <interpretationCode codeSystem="local" code="*" /> < referenceRange> <observationRange> <text> 1.5-2.2</text> </observationRange> </ referenceRange> </observation> </component> < component> <observation moodCode="EVN" classCode=" OBS"> <templateId root="2.16.840.1.569098.10.20.22.4.2& quot; /> <id nullFlavor="NA" /> <code codeSystem="local" code="ALP" displayName="ALK PHOS& quot; /> <statusCode code="completed" /> & lt;effectiveTime value="231344068446" /> <value unit=& quot;U/L" xsi:type="PQ" value="93" /> < referenceRange> <observationRange> <text>46- 116</text> </observationRange> </ referenceRange> </observation> </component> < component> <observation moodCode="EVN" classCode=" OBS"> <templateId root="2.16.840.1.228835.10.20.22.4.2& quot; /> <id nullFlavor="NA" /> <code codeSystem="local" code="ALT" displayName="ALT (SGPT)& quot; /> <statusCode code="completed" /> < effectiveTime value="274780553430" /> <value unit=&quot ;U/L" xsi:type="PQ" value="20" /> < referenceRange> <observationRange> <text> 16-63</text> </observationRange> </ referenceRange> </observation> </component> < component> <observation moodCode="EVN" classCode=" OBS"> <templateId root="2.16.840.1.893014.10..22.4.2& quot; /> <id nullFlavor="NA" /> <code codeSystem="local" code="AST" displayName="AST (SGOT)& quot; /> <statusCode code="completed" /> & lt;effectiveTime value="324610235777" /> <value unit=& quot;U/L" xsi:type="PQ" value="12" /> < interpretationCode codeSystem="local" code="*" /> <referenceRange> <observationRange> <text& gt;15-37</text> </observationRange> </ referenceRange> </observation> </component> </ organizer> </entry> <entry> <organizer moodCode="EVN " classCode="BATTERY"> <templateId root=" 2.16.840.1.830812.10.20.22.4.1" /> <id nullFlavor="NA" /& gt; <code codeSystem="local" code="GFRE" displayName ="GFR ESTIMATION" /> <statusCode code="completed&quot ; /> <component> <observation moodCode="EVN" classCode="OBS"> <templateId root=" 2.16.840.1.187869.10..22.4.2" /> <id nullFlavor="NA& quot; /> <code codeSystem="local" code="GFRN&quot ; displayName="*GFR EST NON AFR CHILEAN" /> < statusCode code="completed" /> <effectiveTime value=& quot;393318035353" /> <value unit="mL/min" xsi: type="PQ" value=">90" /> < referenceRange> <observationRange> <text> NRG</text> </observationRange> </ referenceRange> </observation> </component> < component> <observation moodCode="EVN" classCode=" OBS"> <templateId root="2.16.840.1.295742.10.20.22.4.2& quot; /> <id nullFlavor="NA" /> <code codeSystem="local" code="GFRA" displayName="*GRFA EST AFR AMER" /> <statusCode code="completed" /> <effectiveTime value="773684847419" /> <value unit="mL/min" xsi:type="PQ" value=">90" /& gt; <referenceRange> <observationRange> & lt;text>NRG</text> </observationRange> </ referenceRange> </observation> </component> </ organizer> </entry> <entry> <organizer moodCode="EVN " classCode="BATTERY"> <templateId root=" 2.16.840.1.836879.10.20.22.4.1" /> <id nullFlavor="NA&quot ; /> <code codeSystem="local" code="LIP" displayName="LIPASE" /> <statusCode code="completed& quot; /> <component> <observation moodCode="EVN& quot; classCode="OBS"> <templateId root=" 2.16.840.1.777575.10.20.22.4.2" /> <id nullFlavor="NA& quot; /> <code codeSystem="local" code="LIP" displayName="LIPASE" /> <statusCode code=" completed" /> <effectiveTime value="289308772619" /> <value unit="U/L" xsi:type="PQ" value=& quot;75" /> <referenceRange> < observationRange> <text>73-393</text> </ observationRange> </referenceRange> </observation&gt ; </component> </organizer> </entry><entry> <organizer moodCode="EVN" classCode="BATTERY"> & lt;templateId root="2.16.840.1.940086.10.20.22.4.1" /> <id nullFlavor="NA"/> <code codeSystem="local" code=& quot;CBC" displayName="CBC WITH PLATELET AND DIFFERENTIAL" /> <statusCode code="completed" /> <component> <observation moodCode="EVN" classCode="OBS"> <templateId root="2.16.840.1.906945.10.20.22.4.2" /> <id nullFlavor="NA" /> <code codeSystem=" local" code="SEGR" displayName="SEGS" /> & lt;statusCode code="completed" /> <effectiveTime value= "213930895442" /> <value unit="%" xsi :type="PQ" value="68.6" /> <referenceRange&gt ; <observationRange> <text>NRG</text> </observationRange> </referenceRange> < /observation> </component> <component> < observation moodCode="EVN" classCode="OBS"> < templateId root="2.16.840.1.422945.10.20.22.4.2" /> < id nullFlavor="NA" /> <code codeSystem="local&quot ; code="BASOR" displayName="*BASOPHILS" /> < statusCode code="completed" /> <effectiveTime value=& quot;839243751686" /> <value unit="%" xsi: type="PQ" value="0.9" /> <referenceRange> <observationRange> <text>NRG</text> </observationRange> </referenceRange> &lt ;/observation> </component> <component> < observation moodCode="EVN" classCode="OBS"> < templateId root="2.16.840.1.148608.10..22.4.2" /> < id nullFlavor="NA" /> <code codeSystem="local&quot ; code="EOSR" displayName="*EOSINOPHILS" /> < statusCode code="completed" /> <effectiveTime value=& quot;485140926309" /> <value unit="%" xsi: type="PQ" value="2.8" /> <referenceRange> <observationRange> <text>NRG</text> </observationRange> </referenceRange> </ observation> </component> <component> < observation moodCode="EVN" classCode="OBS"> < templateId root="2.16.840.1.934886.10.20.22.4.2" /> < id nullFlavor="NA" /> <code codeSystem="local&quot ; code="ADIFP" displayName="AUTOMATED DIFF" /> & lt;statusCode code="completed" /> <effectiveTime value= "313173174914" /> <value unit="" xsi:type=& quot;PQ" value="PERFORMED" /> <referenceRange> <observationRange> <text>NRG</text> </observationRange> </referenceRange> &lt ;/observation> </component> <component> < observation moodCode="EVN" classCode="OBS"> < templateId root="2.16.840.1.690752.10.20.22.4.2" /> < idnullFlavor="NA" /> <code codeSystem="local&quot ; code="LYMPR" displayName="*LYMPHOCYTES" /> &lt ;statusCode code="completed" /> <effectiveTime value=& quot;092115740675" /> <value unit="%" xsi: type="PQ" value="21.0" /> <referenceRange&gt ; <observationRange> <text>NRG</text> </observationRange> </referenceRange> </ observation> </component> <component> < observation moodCode="EVN" classCode="OBS">< templateId root="2.16.840.1.244505.10..22.4.2" /> < id nullFlavor="NA" /> <code codeSystem="local&quot ; code="MONOR" displayName="*MONOCYTES" /> < statusCode code="completed" /> <effectiveTime value=& quot;581637442648" /> <value unit="%" xsi: type="PQ" value="6.7" /> <referenceRange> <observationRange> <text>NRG</text> </observationRange> </referenceRange> &lt ;/observation> </component> <component> < observation moodCode="EVN" classCode="OBS"> < templateId root="2.16.840.1.017439.10..22.4.2" /> < id nullFlavor="NA" /> <code codeSystem="local" code="ABACT" displayName="*ABSOLUTE BASOPHILS" /> <statusCode code="completed" /> <effectiveTime value="952771797362" /> <value unit="10*3/uL&quot ; xsi:type="PQ" value="0.10" /> < referenceRange> <observationRange> <text> 0.00-0.20</text> </observationRange> </ referenceRange> </observation> </component> < component> <observation moodCode="EVN" classCode=" OBS"> <templateId root="2.16.840.1.155193.10.20.22.4.2& quot; /> <id nullFlavor="NA" /> <code codeSystem= "local" code="AEOCT" displayName="*ABSOLUTE EOSINOPHILS " /> <statusCode code="completed" /> & lt;effectiveTime value="846725058463" /> <value unit=& quot;10*3/uL" xsi:type="PQ"value="0.40" /> <referenceRange> <observationRange> <text> 0.00-0.50</text> </observationRange> </ referenceRange> </observation> </component> < component> <observation moodCode="EVN" classCode=" OBS"> <templateId root="2.16.840.1.162947.10.20.22.4.2& quot; /> <id nullFlavor="NA" /> <code codeSystem="local" code="ALYCT" displayName="*ABSOLUTE LYMPHOCYTES" /> <statusCode code="completed" /&gt ; <effectiveTime value="711043495249" /> < value unit="10*3/uL" xsi:type="PQ" value="2.60" /& gt; <referenceRange> <observationRange> &lt ;text>1.00-3.00</text> </observationRange> & lt;/referenceRange> </observation> </component> <component> <observation moodCode="EVN" classCode=& quot;OBS"> <templateId root=" 2.16.840.1.530631.10.20.22.4.2" /> <id nullFlavor="NA& quot; /> <code codeSystem="local" code="AMOCT&quot ; displayName="*ABSOLUTE MONOCYTES" /> <statusCode code ="completed" /> <effectiveTime value="591883655082 " /> <value unit="10*3/uL" xsi:type="PQ&quot ; value="0.80" /> <referenceRange> < observationRange> <text>0.30-1.00</text> </ observationRange> </referenceRange> </observation&gt ; </component> <component> <observation moodCode ="EVN" classCode="OBS"> <templateId root=& quot;2.16.840.1.973762.10.20.22.4.2" /> <id nullFlavor=&quot ;NA" /> <code codeSystem="local" code="ANECT& quot; displayName="*ABSOLUTE NEUTROPHILS" /> < statusCode code="completed" /> <effectiveTime value=& quot;291417065419" /> <value unit="10*3/uL" xsi: type="PQ" value="8.50" /> < interpretationCode codeSystem="local" code="*" /> <referenceRange> <observationRange> < text>1.80-7.80</text> </observationRange> &lt ;/referenceRange> </observation> </component> & lt;component> <observation moodCode="EVN" classCode=&quot ;OBS"> <templateId root="2.16.840.1.876613.10.20.22.4.2 " /> <id nullFlavor="NA" /> <code codeSystem="local" code="MPV" displayName="MPV" /& gt; <statusCode code="completed" /> < effectiveTime value="783133718495" /> <value unit=&quot ;fL" xsi:type="PQ" value="7.4" /> < referenceRange> <observationRange> <text> 7.4-10.4</text> </observationRange> </ referenceRange> </observation> </component> < component> <observation moodCode="EVN" classCode=" OBS"> <templateId root="2.16.840.1.566279.10.20.22.4.2& quot; /> <id nullFlavor="NA" /> <code codeSystem="local" code="PLT" displayName="PLATELETS& quot; /> <statusCode code="completed" /> < effectiveTime value="692706534504" /> <value unit=&quot ;10*3/uL" xsi:type="PQ" value="316" /> < referenceRange> <observationRange> <text> 159-386</text> </observationRange> </ referenceRange> </observation> </component> < component> <observation moodCode="EVN" classCode=" OBS"> <templateId root="2.16.840.1.235311.10.20.22.4.2& quot; /> <id nullFlavor="NA" /> <code codeSystem="local" code="WBCIR" displayName="WBC" /> <statusCode code="completed" /> < effectiveTimevalue="105686706994" /> <value unit=" 10*3/uL" xsi:type="PQ" value="12.4" /> < interpretationCode codeSystem="local" code="*" /> <referenceRange> <observationRange> < text>3.6-11.2</text> </observationRange> < /referenceRange> </observation> </component> &lt ;component> <observation moodCode="EVN" classCode=" OBS"> <templateId root="2.16.840.1.498426.10.20.22.4.2& quot; /> <id nullFlavor="NA" /> <code codeSystem="local" code="RBC" displayName="RBC" /& gt; <statusCode code="completed" /> < effectiveTime value="444426343980" /> <value unit="& quot; xsi:type="PQ" value="5.21" /> < interpretationCode codeSystem="local" code="*" /> <referenceRange> <observationRange> < text>3.63-4.92</text> </observationRange> &lt ;/referenceRange> </observation> </component> & lt;component> <observation moodCode="EVN" classCode=&quot ;OBS"> <templateId root="[id number] " /> <id nullFlavor="NA" /> <code codeSystem="local" code="HGB"displayName="HEMOGLOBIN& quot; /> <statusCode code="completed" /> < effectiveTime value="[id number]" /> <value unit=&quot ;" xsi:type="PQ" value="14.2" /> < referenceRange> <observationRange> <text> 11.0-14.3</text> </observationRange> </ referenceRange> </observation> </component> < component> <observation moodCode="EVN" classCode=" OBS"> <templateId root="2.16.840.1.490875.10.20.22.4.2& quot; /> <id nullFlavor="NA" /> <code codeSystem="local" code="HCT" displayName="HEMATOCRIT& quot; /> <statusCode code="completed" /> & lt;effectiveTime value="913195710656" /> <value unit=& quot;%" xsi:type="PQ" value="41.8" /> <referenceRange> <observationRange> < text>31.2-41.9</text> </observationRange> &lt ;/referenceRange> </observation> </component> & lt;component> <observation moodCode="EVN" classCode="OBS& quot;> <templateId root="2.16.840.1.359083.10.20.22.4.2&quot ; /> <id nullFlavor="NA" /> <code codeSystem= "local" code="MCV" displayName="MCV" /> & lt;statusCode code="completed" /> <effectiveTime value= "774007391318" /> <value unit="fL" xsi:type=& quot;PQ" value="80.2" /> <referenceRange> <observationRange> <text>79.0-98.0</text> </observationRange> </referenceRange> & lt;/observation> </component> <component> < observation moodCode="EVN" classCode="OBS"> < templateId root="2.16.840.1.792144.10.20.22.4.2" /> < id nullFlavor="NA" /> <code codeSystem="local&quot ; code="MCH" displayName="MCH" /> < statusCode code="completed" /> <effectiveTime value=& quot;113757175961" /> <value unit="pg" xsi:type=& quot;PQ" value="27.2" /> <referenceRange> <observationRange> <text>27.0-33.0</text> </observationRange> </referenceRange> </ observation> </component> <component> < observation moodCode="EVN" classCode="OBS"> < templateId root="2.16.840.1.913484.10.20.22.4.2" /> <id nullFlavor="NA" /> <code codeSystem="local" code="MCHC" displayName="MCHC" /> < statusCode code="completed" /> <effectiveTime value=& quot;746035914405" /> <value unit=""xsi:type=&quot ;PQ" value="33.9" /> <referenceRange> <observationRange> <text>32.0-36.0</text> </observationRange> </referenceRange> </ observation> </component> <component> < observation moodCode="EVN" classCode="OBS"> < templateId root="2.16.840.1.970176.10.20.22.4.2" /> < id nullFlavor="NA" /> <code codeSystem="local&quot ; code="RDW" displayName="RDW" /> < statusCode code="completed" /> <effectiveTime value=& quot;264539694942" /> <value unit="%" xsi: type="PQ" value="13.9" /> <referenceRange&gt ; <observationRange> <text>12.3-17.0</text& gt; </observationRange> </referenceRange> </observation> </component> <component> &lt ;observation moodCode="EVN" classCode="OBS"> &lt ;templateId root="2.16.840.1.595381.10.20.22.4.2" /> < id nullFlavor="NA" /> <code codeSystem="local" code=& quot;RDWSD" displayName="RDWSD" /> <statusCode code=& quot;completed" /> <effectiveTime value="287964570283& quot; /> <value unit="" xsi:type="PQ" value=& quot;39.4"/> <referenceRange> < observationRange> <text>37.1-47.8</text> </observationRange> </referenceRange> </ observation> </component> </organizer> </entry> & lt;entry> <organizer moodCode="EVN" classCode="BATTERY& quot;> <templateId root="2.16.840.1.171378.10.20.22.4.1" /& gt; <id nullFlavor="NA" /> <codecodeSystem=" local" code="CMP" displayName="COMPREHENSIVE METABOLIC PANEL " /> <statusCode code="completed" /> < component> <observation moodCode="EVN" classCode=" OBS"> <templateId root="2.16.840.1.181393.10.20.22.4.2& quot; /> <id nullFlavor="NA" /> <code codeSystem="local" code="BILT" displayName="BILIFUBIN TOTAL" /> <statusCode code="completed" /> <effectiveTime value="825768302916" /> <value unit="" xsi:type="PQ" value="0.70" /> <referenceRange> <observationRange> <text >0.20-1.00</text> </observationRange> </ referenceRange></observation> </component> < component> <observation moodCode="EVN" classCode=" OBS"> <templateId root="2.16.840.1.777802.10..22.4.2& quot; /> <id nullFlavor="NA" /> <code codeSystem="local" code="TP" displayName="TOTAL PROTEIN " /> <statusCode code="completed" /> & lt;effectiveTime value="250759774257" /> <value unit=& quot;" xsi:type="PQ" value="7.0" /> < referenceRange> <observationRange> <text> 6.4-8.2</text> </observationRange> </ referenceRange> </observation> </component> < component> <observation moodCode="EVN" classCode=" OBS"> <templateId root="2.16.840.1.483726.10..22.4.2& quot; /> <id nullFlavor="NA" /> <code codeSystem="local" code="ALB" displayName="ALBUMIN&quot ; /> <statusCode code="completed" /> < effectiveTime value="959664895660" /> <value unit=&quot ;" xsi:type="PQ" value="3.4" /> < referenceRange> <observationRange> <text>3.4-5.0< /text> </observationRange> </referenceRange> </observation> </component> <component> <observation moodCode="EVN" classCode="OBS"> < templateId root="2.16.840.1.614304.10.20.22.4.2" /> < id nullFlavor="NA" /> <code codeSystem="local&quot ; code="GLOB" displayName="*GLOBULIN" /> < statusCode code="completed" /> <effectiveTime value=& quot;238205168555" /> <value unit="" xsi:type=& quot;PQ" value="3.6" /> <interpretationCode codeSystem="local" code="*" /> < referenceRange> <observationRange> <text> 2.3-3.5</text> </observationRange> </ referenceRange> </observation> </component> < component> <observation moodCode="EVN" classCode=" OBS"> <templateId root="2.16.840.1.873955.10.20.22.4.2& quot; /> <id nullFlavor="NA" /> <code codeSystem="local" code="AGR" displayName="*A/G RATIO& quot; /> <statusCode code="completed" /> & lt;effectiveTime value="247097320514" /> <value unit=& quot;" xsi:type="PQ" value="0.9" /> < interpretationCode codeSystem="local" code="*" /> <referenceRange> <observationRange> < text>1.5-2.2</text> </observationRange> </ referenceRange> </observation> </component> < component> <observation moodCode="EVN" classCode=" OBS"> <templateId root="2.16.840.1.413865.10.20.22.4.2& quot; /> <id nullFlavor="NA" /> <code codeSystem="local" code="ALP" displayName="ALK PHOS& quot; /> <statusCode code="completed" /> < effectiveTime value="593605010268" /> <value unit=&quot ;U/L" xsi:type="PQ" value="93" /> < referenceRange> <observationRange> <text> 46-116</text> </observationRange> </ referenceRange> </observation> </component> < component> <observation moodCode="EVN" classCode=" OBS"> <templateId root="2.16.840.1.776629.10.20.22.4.2& quot; /> <id nullFlavor="NA" /> <code codeSystem="local" code="ALT" displayName="ALT (SGPT)& quot; /> <statusCode code="completed" /> & lt;effectiveTimevalue="984499843650" /> <value unit=& quot;U/L" xsi:type="PQ"value="20" /> < referenceRange> <observationRange> <text>16-63& lt;/text> </observationRange> </referenceRange& gt; </observation> </component> <component> <observation moodCode="EVN" classCode="OBS"> <templateId root="2.16.840.1.327705.10.20.22.4.2" /> <id nullFlavor="NA" /> <code codeSystem=&quot ;local" code="AST" displayName="AST (SGOT)" />< statusCode code="completed" /> <effectiveTime value=& quot;931468626397" /> <value unit="U/L" xsi:type=& quot;PQ" value="12" /> <interpretationCode codeSystem="local" code="*" /> < referenceRange> <observationRange> <text> 15-37</text> </observationRange> </referenceRange > </observation> </component> </organizer> </entry> <entry> <organizer moodCode="EVN" classCode="BATTERY"> <templateId root=" 2.16.840.1.776505.10.20.22.4.1" /> <id nullFlavor="NA&quot ; /> <code codeSystem="local" code="GFRE" displayName="GFR ESTIMATION" /> <statusCode code=" completed" /> <component> <observation moodCode=& quot;EVN" classCode="OBS"> <templateId root=" 2.16.840.1.982870.10..22.4.2" /> <id nullFlavor="NA& quot; /> <code codeSystem="local" code="GFRN&quot ; displayName="*GFR EST NON AFR CHILEAN" /> < statusCode code="completed" /> <effectiveTime value=& quot;295772486401" /> <value unit="mL/min" xsi:type=" PQ" value=">90" /> <referenceRange> & lt;observationRange> <text>NRG</text> &lt ;/observationRange> </referenceRange> </observation& gt; </component> <component> <observation moodCode ="EVN" classCode="OBS"> <templateId root=& quot;2.16.840.1.292081.10..22.4.2" /> <id nullFlavor=" NA" /> <code codeSystem="local" code="GFRA& quot; displayName="*GRFA EST AFR AMER" /> <statusCode code="completed" /> <effectiveTime value=" 303492619935" /> <value unit="mL/min" xsi:type=& quot;PQ" value=">90" /> <referenceRange&gt ; <observationRange> <text>NRG</text> </observationRange> </referenceRange> </ observation> </component> </organizer> </entry> & lt;entry> <organizer moodCode="EVN" classCode="BATTERY& quot;> <templateId root="2.16.840.1.160193.10.20.22.4.1" /& gt; <id nullFlavor="NA" /> <code codeSystem=" local" code="LIP" displayName="LIPASE" /> < statusCode code="completed" /> <component> < observation moodCode="EVN" classCode="OBS"> < templateId root="2.16.840.1.729040.10.20.22.4.2" /> < id nullFlavor="NA" /> <code codeSystem="local&quot ; code="LIP" displayName="LIPASE" /> < statusCode code="completed" /> <effectiveTime value=" 796349858952" /> <value unit="U/L"xsi:type=" PQ" value="75" /> <referenceRange> & lt;observationRange> <text>73-393</text> </observationRange> </referenceRange> </observation > </component> </organizer> </entry> <entry&gt ; <organizer moodCode="EVN" classCode="BATTERY"> <templateId root="2.16.840.1.701285.10.20.22.4.1" /> & lt;id nullFlavor="NA" /> <code codeSystem="local&quot ; code="UAPRN" displayName="URINALYSIS (CULTURE PRN)" /> <statusCode code="completed" /> <component> <observation moodCode="EVN" classCode="OBS"> <templateId root="2.16.840.1.493623.10.20.22.4.2" /> <id nullFlavor="NA" /> <code codeSystem=" local" code="ERIC" displayName="*URINE APPEARANCE" /&gt ; <statusCode code="completed" /> < effectiveTime value="259514954696" /> <value unit=&quot ;" xsi:type="PQ" value="SL CLOUDY" /> < interpretationCode codeSystem="local" code="*" /> <referenceRange> <observationRange> < text>CLEAR</text> </observationRange> </ referenceRange> </observation> </component> < component><observation moodCode="EVN" classCode="OBS"& gt; <templateId root="2.16.840.1.458994.10.20.22.4.2" /&gt ; <id nullFlavor="NA" /> <code codeSystem=" local" code="UBIL" displayName="*URINE BILIRUBIN" /&gt ; <statusCode code="completed" /> < effectiveTime value="519480150325" /> <value unit=&quot ;" xsi:type="PQ" value="NEGATIVE" /> < referenceRange> <observationRange> <text>NEGATIVE&lt ;/text> </observationRange> </referenceRange&gt ; </observation> </component> <component> <observation moodCode="EVN" classCode="OBS"> <templateId root="2.16.840.1.987882.10..22.4.2" /> <id nullFlavor="NA" /> <codecodeSystem=" local" code="UBLO" displayName="*URINE BLOOD" /> & lt;statusCode code="completed" /> <effectiveTime value= "005258627916" /> <value unit="" xsi:type=& quot;PQ" value="TRACE-INTACT" /> < interpretationCode codeSystem="local" code="*" /> < referenceRange> <observationRange> <text> NEGATIVE</text> </observationRange> </ referenceRange> </observation> </component> < component> <observation moodCode="EVN"classCode="OBS "> <templateId root="2.16.840.1.143246.10.20.22.4.2& quot; /> <id nullFlavor="NA" /> <code codeSystem="local" code="UGLU" displayName="*URINE GLUCOSE" /> <statusCode code="completed" /> <effectiveTime value="601747506899" /> < value unit="" xsi:type="PQ" value="NEGATIVE" /&gt ; <referenceRange> <observationRange> <text>NEGATIVE</text> </observationRange> &lt ;/referenceRange> </observation> </component> & lt;component> <observation moodCode="EVN" classCode=&quot ;OBS"> <templateId root="2.16.840.1.850548.10..22.4.2 " /> <id nullFlavor="NA" /> <code codeSystem ="local" code="UKET" displayName="*URINE KETONES" /> <statusCode code="completed" /> < effectiveTime value="625165249410" /> <value unit=&quot ;" xsi:type="PQ" value="NEGATIVE" /> < referenceRange> <observationRange> <text> NEGATIVE</text> </observationRange> </ referenceRange> </observation> </component> < component> <observation moodCode="EVN" classCode=" OBS"> <templateId root="2.16.840.1.920035.10..22.4.2& quot; /> <id nullFlavor="NA" /> <code codeSystem="local" code="ULEU" displayName="*URINE LEUKOCYTES" /> <statusCode code="completed" /> <effectiveTime value="435810875105" /> <value unit="" xsi:type="PQ" value="NEGATIVE" /> <referenceRange> <observationRange> &lt ;text>NEGATIVE</text> </observationRange> &lt ;/referenceRange> </observation> </component> & lt;component> <observation moodCode="EVN" classCode=&quot ;OBS"> <templateId root="2.16.840.1.627705.10.20.22.4.2 " /> <id nullFlavor="NA" /> <code codeSystem="local" code="UNIT" displayName="*URINE NITRITES" /> <statusCode code="completed" /> <effectiveTime value="906254406880" /> < value unit="" xsi:type="PQ" value="NEGATIVE" /&gt ; <referenceRange> <observationRange> <text>NEGATIVE</text> </observationRange> </referenceRange> </observation> </component&gt ; <component> <observation moodCode="EVN" classCode=& quot;OBS"> <templateId root=" 2.16.840.1.662594.10..22.4.2" /> <id nullFlavor="NA& quot; /> <code codeSystem="local" code="UPH" displayName="URINE PH" /> <statusCode code=" completed" /> <effectiveTime value="087963531800" /> <value unit="" xsi:type="PQ" value=" 6.5" /> <referenceRange> <observationRange& gt; <text>5.0-8.0</text> </ observationRange> </referenceRange> </observation> </component> <component> <observation moodCode=& quot;EVN" classCode="OBS"> <templateId root=" 2.16.840.1.480691.10.20.22.4.2" /> <id nullFlavor="NA& quot; /> <code codeSystem="local" code="UPRO&quot ; displayName="*URINE PROTEIN" /> <statusCode code=& quot;completed" /> <effectiveTime value="316882178001& quot; /> <value unit="" xsi:type="PQ" value=& quot;NEGATIVE" /> <referenceRange> < observationRange> <text>NEGATIVE</text> & lt;/observationRange> </referenceRange> </ observation> </component> <component> < observation moodCode="EVN" classCode="OBS"> < templateId root="2.16.840.1.992897.10.20.22.4.2" /> < id nullFlavor="NA" /> <code codeSystem="local&quot ; code="SGUR" displayName="URINE SPECIFIC GRAVITY" /> <statusCode code="completed" /> < effectiveTime value="644463637603" /> <value unit="& quot; xsi:type="PQ" value="1.010" /> < referenceRange> <observationRange> <text> <=1.005->=1.030</text> </observationRange> </referenceRange> </observation> </ component> <component> <observation moodCode="EVN& quot; classCode="OBS"> <templateId root=" 2.16.840.1.460846.10..22.4.2" /> <id nullFlavor="NA& quot; /> <code codeSystem="local" code="URO" displayName="*URINE UROBILINOGEN" /> <statusCode code=& quot;completed" /> <effectiveTime value="662733014507& quot; /> <value unit="" xsi:type="PQ" value=& quot;0.2" /> <referenceRange> <observationRange> <text>0.2-1.0</text> </observationRange& gt; </referenceRange> </observation> </ component> <component> <observation moodCode="EVN& quot; classCode="OBS"> <templateId root=" 2.16.840.1.602319.10..22.4.2" /> <id nullFlavor="NA& quot; /> <code codeSystem="local" code="COLOR&quot ; displayName="*URINE COLOR" /> <statusCode code=" completed" /> <effectiveTime value="625221653344" /> <value unit="" xsi:type="PQ" value=" STRAW" /> <referenceRange> < observationRange> <text>STRAW/YELL/DK YELL</text> </observationRange> </referenceRange> </ observation> </component> </organizer> </entry> & lt;entry> <organizer moodCode="EVN" classCode="BATTERY& quot;> <templateId root="2.16.840.1.224529.10.20.22.4.1" /& gt; <id nullFlavor="NA" /> <code codeSystem=" local" code="UMIC" displayName="URINE MICROSCOPIC" /&gt ; <statusCode code="completed" /> <component> <observation moodCode="EVN" classCode="OBS"> <templateId root="2.16.840.1.318621.10.20.22.4.2" /> <id nullFlavor="NA" /> <code codeSystem=" local" code="WBCUR" displayName="WBC" /> & lt;statusCode code="completed" /> <effectiveTime value= "847273939293" /> <value unit="/[HPF]" xsi: type="PQ" value="1-5" /> <referenceRange> <observationRange> <text>0-5</text> </observationRange> </referenceRange> </ observation> </component> <component> < observation moodCode="EVN" classCode="OBS"> < templateId root="2.16.840.1.358878.10.20.22.4.2" /> < id nullFlavor="NA" /> <code codeSystem="local&quot ; code="RBCUR" displayName="RBC" /> < statusCode code="completed" /> <effectiveTime value=& quot;173381773106" /> <value unit="/[HPF]" xsi: type="PQ" value="5-10" /> < interpretationCode codeSystem="local"code="*" /> <referenceRange> <observationRange> <text>0-1 </text> </observationRange> </referenceRange& gt; </observation> </component> <component> <observationmoodCode="EVN" classCode="OBS"> <templateId root="2.16.840.1.500380.10..22.4.2" /> <id nullFlavor="NA" /> <code codeSystem=" local" code="UMICP" displayName="MICROSCOPIC EXAM PERFORMED& quot; /> <statusCode code="completed" /> & lt;effectiveTime value="746256995988" /> <value unit=& quot;" xsi:type="PQ" value="PERFORMED" /> & lt;referenceRange> <observationRange> <text& gt;NRG</text> </observationRange> </ referenceRange> </observation> </component> < component> <observation moodCode="EVN" classCode=" OBS"> <templateId root="2.16.840.1.545283.10..22.4.2& quot; /> <id nullFlavor="NA" /> <code codeSystem="local" code="SQEP" displayName="SQUAMOUS EP. CELLS" /> <statusCode code="completed" /> <effectiveTime value="047991600678" /> < value unit="/[LPF]" xsi:type="PQ" value="MANY" /& gt; <interpretationCode codeSystem="local" code="*& quot; /> <referenceRange> <observationRange> <text>NEG-FEW</text> </observationRange& gt; </referenceRange> </observation> </ component> <component> <observation moodCode="EVN& quot; classCode="OBS"> <templateId root=" 2.16.840.1.266076.10.20.22.4.2" /> <id nullFlavor="NA& quot; /> <code codeSystem="local" code="BACT&quot ; displayName="BACTERIA" /> <statusCode code=" completed" /> <effectiveTime value="162987404538" /> <value unit="/[HPF]" xsi:type="PQ" value=& quot;MANY" /> <interpretationCode codeSystem="local& quot; code="*" /> <referenceRange> < observationRange> <text>NEGATIVE</text> & lt;/observationRange> </referenceRange> </ observation> </component> </organizer> </entry> & lt;entry> <organizer moodCode="EVN" classCode="BATTERY& quot;> <templateId root="2.16.840.1.524856.10.20.22.4.1" /& gt; <id nullFlavor="NA" /> <code codeSystem=" local" code="CXURN"displayName="CULTURE URINE" /> <statusCode code="completed" /> <component> &lt ;observation moodCode="EVN" classCode="OBS"> < templateId root="2.16.840.1.671829.10.20.22.4.2" /> < id nullFlavor="NA" /> <code codeSystem="local&quot ; code="CXURN" displayName="CULTURE URINE" /> & lt;statusCode code="completed" /> <effectiveTime value= "190247803137" /> <value unit="" xsi:type=& quot;PQ" value="50,000 cfu/ml-100,000 cfu/ml~3 or more gram positive colony types~Suggestive of colonization or contamination" /> & lt;referenceRange> <observationRange> <text& gt;NRG</text> </observationRange> </referenceRange&gt ; </observation> </component> </organizer> &lt ;/entry> <entry> <organizer moodCode="EVN" classCode=& quot;BATTERY"> <templateId root=" 2.16.840.1.503412.10.20.22.4.1" /> <id nullFlavor="NA&quot ; /> <code codeSystem="local" code="UAPRN" displayName="URINALYSIS (CULTURE PRN)" /> <statusCode code= "completed" /> <component> <observation moodCode="EVN" classCode="OBS"> <templateId root=& quot;2.16.840.1.616677.10.20.22.4.2" /> <id nullFlavor=&quot ;NA" /> <code codeSystem="local" code="ERIC& quot; displayName="*URINE APPEARANCE" /> <statusCode code="completed" /> <effectiveTime value=" 370952040441" /> <value unit="" xsi:type="PQ& quot; value="SL CLOUDY" /> <interpretationCode codeSystem="local" code="*" /> < referenceRange> <observationRange> <text> CLEAR</text> </observationRange> </ referenceRange> </observation> </component> < component> <observation moodCode="EVN" classCode=" OBS"> <templateId root="2.16.840.1.140548.10..22.4.2& quot; /> <id nullFlavor="NA" /> <code codeSystem="local" code="UBIL" displayName="*URINE BILIRUBIN" /> <statusCode code="completed" /> <effectiveTime value="827846199695" /> < value unit="" xsi:type="PQ" value="NEGATIVE" /&gt ; <referenceRange> <observationRange> <text>NEGATIVE</text> </observationRange> </referenceRange> </observation> </component> <component> <observation moodCode="EVN" classCode ="OBS"> <templateId root=" 2.16.840.1.569090.10.20.22.4.2" /> <id nullFlavor="NA& quot; /> <code codeSystem="local" code="UBLO&quot ; displayName="*URINE BLOOD" /> <statusCode code=" completed" /> <effectiveTime value="777187380654"/ > <value unit="" xsi:type="PQ" value=" TRACE-INTACT" /> <interpretationCode codeSystem="local& quot; code="*" /> <referenceRange> < observationRange> <text>NEGATIVE</text> & lt;/observationRange> </referenceRange> </ observation> </component> <component> < observation moodCode="EVN" classCode="OBS"> < templateId root="2.16.840.1.513221.10.20.22.4.2" /> <id nullFlavor="NA" /> <code codeSystem="local" code="UGLU" displayName="*URINE GLUCOSE" /> < statusCode code="completed" /> <effectiveTime value=& quot;113787837933" /> <value unit="" xsi:type=& quot;PQ" value="NEGATIVE" /> <referenceRange> <observationRange> <text>NEGATIVE</text& gt; </observationRange> </referenceRange> </observation> </component> <component> &lt ;observation moodCode="EVN" classCode="OBS"> &lt ;templateId root="2.16.840.1.089292...4.2" /> < id nullFlavor="NA" /> <code codeSystem="local&quot ; code="UKET" displayName="*URINE KETONES" /> & lt;statusCode code="completed" /> <effectiveTime value= "698135963941" /> <value unit="" xsi:type=& quot;PQ" value="NEGATIVE" /> <referenceRange> & lt;observationRange> <text>NEGATIVE</text> </observationRange> </referenceRange> </ observation> </component> <component> < observation moodCode="EVN" classCode="OBS"> < templateId root="2.16.840.1.557365....4.2" /> < id nullFlavor="NA" /> <code codeSystem="local&quot ; code="ULEU" displayName="*URINE LEUKOCYTES" /> <statusCode code="completed" /> <effectiveTime value="127180503474" /> <value unit="" xsi: type="PQ" value="NEGATIVE" /> <referenceRange > <observationRange> <text>NEGATIVE</ text> </observationRange> </referenceRange> </observation> </component> <component> & lt;observation moodCode="EVN" classCode="OBS"> & lt;templateId root="2.16.840.1.765297.10.20.22.4.2" /> &lt ;id nullFlavor="NA"/> <code codeSystem="local&quot ; code="UNIT" displayName="*URINE NITRITES" /> & lt;statusCode code="completed" /> <effectiveTime value= "688045491845" /> <value unit="" xsi:type=& quot;PQ"value="NEGATIVE" /> <referenceRange> <observationRange> <text>NEGATIVE</text&gt ; </observationRange> </referenceRange> & lt;/observation> </component> <component> < observation moodCode="EVN" classCode="OBS"> < templateId root="2.16.840.1.311405.10.20.22.4.2" /> < id nullFlavor="NA" /> <code codeSystem="local" code=& quot;UPH" displayName="URINE PH" /> <statusCode code= "completed" /> <effectiveTime value="428892265194& quot; /> <value unit="" xsi:type="PQ" value=& quot;6.5"/> <referenceRange> < observationRange> <text>5.0-8.0</text> & lt;/observationRange> </referenceRange> </ observation> </component> <component> < observation moodCode="EVN" classCode="OBS"> < templateId root="2.16.840.1.756423.10.20.22.4.2" /> < id nullFlavor="NA" /> <code codeSystem="local&quot ; code="UPRO" displayName="*URINE PROTEIN" /> & lt;statusCode code="completed" /> <effectiveTime value= "324006686052" /> <value unit="" xsi:type=" PQ" value="NEGATIVE" /> <referenceRange> <observationRange> <text>NEGATIVE</text> </observationRange> </referenceRange> < /observation> </component> <component> < observation moodCode="EVN" classCode="OBS"> < templateId root="2.16.840.1.115883.10..22.4.2" /> < id nullFlavor="NA" /> <code codeSystem="local&quot ; code="SGUR" displayName="URINE SPECIFIC GRAVITY" /> <statusCode code="completed" /> < effectiveTime value="364183215731" /> <value unit=&quot ;" xsi:type="PQ" value="1.010" /> < referenceRange> <observationRange> <text> <=1.005->=1.030</text> </observationRange> </referenceRange> </observation> </ component> <component> <observation moodCode="EVN& quot; classCode="OBS"> <templateId root=" 2.16.[id number]" /> <id nullFlavor="NA& quot; /> <code codeSystem="local" code="URO" displayName="*URINE UROBILINOGEN" /> <statusCode code=& quot;completed" /> <effectiveTime value="[id number]& quot; /> <value unit="" xsi:type="PQ" value=&quot ;0.2" /> <referenceRange> <observationRange > <text>0.2-1.0</text> </observationRange > </referenceRange> </observation></component& gt; <component> <observation moodCode="EVN" classCode="OBS"> <templateId root=" [id number]" /> <id nullFlavor="NA" /> <code codeSystem="local" code="COLOR" displayName="*URINE COLOR" /> <statusCode code=" completed" /> <effectiveTime value="120848300749" /> <value unit="" xsi:type="PQ" value=" STRAW" /> <referenceRange> <observationRange&gt ; <text>STRAW/YELL/DK YELL</text></observationRange& gt; </referenceRange> </observation> </ component> </organizer> </entry> <entry> < organizer moodCode="EVN" classCode="BATTERY"> < templateId root="2.16.840.1.377686.10.20.22.4.1" /> <id nullFlavor="NA" /> <code codeSystem="local" code= "UMIC" displayName="URINE MICROSCOPIC" /> < statusCode code="completed" /> <component> < observation moodCode="EVN" classCode="OBS"> < templateId root="2.16.840.1.399448.10.20.22.4.2" /> <id nullFlavor="NA" /> <code codeSystem="local" code="WBCUR" displayName="WBC" /> < statusCode code="completed" /> <effectiveTime value=& quot;232739344501" /> <value unit="/[HPF]" xsi: type="PQ" value="1-5" /> <referenceRange> <observationRange> <text>0-5</text> </observationRange> </referenceRange> </ observation> </component> <component> < observation moodCode="EVN" classCode="OBS"> < templateId root="2.16.840.1.148644.10.20.22.4.2" /> < id nullFlavor="NA" /> <code codeSystem="local&quot ; code="RBCUR" displayName="RBC" /> < statusCode code="completed" /> <effectiveTime value=& quot;614945579177" /> <value unit="/[HPF]" xsi: type="PQ" value="5-10" /> < interpretationCode codeSystem="local" code="*" /> <referenceRange> <observationRange> < text>0-1</text> </observationRange> </ referenceRange> </observation> </component> < component> <observation moodCode="EVN" classCode=" OBS"> <templateId root="2.16.840.1.498835.10.20.22.4.2& quot; /> <id nullFlavor="NA" /> <code codeSystem="local" code="UMICP" displayName=" MICROSCOPIC EXAM PERFORMED" /> <statusCode code="completed " /> <effectiveTime value="076568697692" /> <value unit="" xsi:type="PQ" value="PERFORMED " /> <referenceRange> <observationRange&gt ; <text>NRG</text> </observationRange&gt ; </referenceRange> </observation> </ component> <component> <observation moodCode="EVN& quot; classCode="OBS"> <templateId root=" 2.16.840.1.119464.10.20.22.4.2" /> <id nullFlavor="NA& quot; /> <code codeSystem="local" code="SQEP&quot ; displayName="SQUAMOUS EP. CELLS" /> <statusCode code= "completed" /> <effectiveTime value="704564742443& quot; /> <value unit="/[LPF]" xsi:type="PQ" value="MANY" /> <interpretationCode codeSystem="local " code="*" /> <referenceRange> < observationRange> <text>NEG-FEW</text> </ observationRange> </referenceRange> </observation&gt ; </component> <component> <observation moodCode ="EVN" classCode="OBS"> <templateId root=& quot;2.16.840.1.914689.10..22.4.2" /> <id nullFlavor="NA& quot; /> <code codeSystem="local" code="BACT&quot ; displayName="BACTERIA" /> <statusCode code=" completed" /> <effectiveTime value="531491192930" /> <value unit="/[HPF]" xsi:type="PQ" value=& quot;MANY" /> <interpretationCode codeSystem="local& quot; code="*" /> <referenceRange> < observationRange> <text>NEGATIVE</text> & lt;/observationRange> </referenceRange> </observation& gt; </component> </organizer> </entry> <entry&gt ; <organizer moodCode="EVN" classCode="BATTERY"> <templateId root="2.16.840.1.316419.10.20.22.4.1" /> & lt;id nullFlavor="NA" /> <code codeSystem="local&quot ; code="CXURN" displayName="CULTURE URINE" /> < statusCode code="completed" /> <component> < observation moodCode="EVN" classCode="OBS"> < templateId root="216.840.1.443625.10.20.22.4.2" /> < id nullFlavor="NA" /> <code codeSystem="local&quot ; code="CXURN" displayName="CULTURE URINE" /> & lt;statusCode code="completed" /> <effectiveTime value= "800302093059" /> <value unit="" xsi:type=& quot;PQ" value="50,000 cfu/ml-100,000 cfu/ml~3 or more gram positive colony types~Suggestive of colonization or contamination" /> & lt;referenceRange> <observationRange> <text& gt;NRG</text> </observationRange> </ referenceRange> </observation> </component> </ organizer> </entry> <entry> <organizer moodCode="EVN " classCode="BATTERY"> <templateId root=" 2.16.840.1.075621.10.20.22.4.1" /> <id nullFlavor="NA&quot ; /> <code codeSystem="local" code="LA" displayName="LACTIC ACID" /> <statusCode code=" completed" /> <component><observation moodCode="EVN& quot; classCode="OBS"> <templateId root=" 2.16.840.1.536678.10.20.22.4.2" /> <id nullFlavor="NA& quot; /> <code codeSystem="local" code="LA" displayName="LACTIC ACID" /> <statusCode code=" completed" /> <effectiveTime value="437869210221" /> <value unit="" xsi:type="PQ" value=" 0.7" /> <interpretationCode codeSystem="local" code="*" /> <referenceRange> < observationRange> <text>0.9-1.7</text> & lt;/observationRange> </referenceRange> </ observation> </component> </organizer> </entry> & lt;entry> <organizer moodCode="EVN" classCode="BATTERY& quot;> <templateId root="2.16.840.1.064849.10.20.22.4.1" /& gt; <id nullFlavor="NA" /> <code codeSystem=" local" code="CBC" displayName="CBC WITH PLATELET AND DIFFERENTIAL" /> <statusCode code="completed" /> <component> <observationmoodCode="EVN" classCode=& quot;OBS"> <templateId root=" 2.16.840.1.895474.10.20.22.4.2" /> <id nullFlavor="NA& quot; /> <code codeSystem="local" code="SEGR&quot ; displayName="SEGS" /> <statusCode code=" completed" /> <effectiveTime value="110442058663" /> <value unit="%" xsi:type="PQ" value="71.9" /> <referenceRange> < observationRange> <text>NRG</text> </ observationRange> </referenceRange> </observation&gt ; </component> <component> <observation moodCode ="EVN"classCode="OBS"> <templateId root=&quot ;2.16.840.1.392159.10.20.22.4.2" /> <id nullFlavor="NA& quot; /> <code codeSystem="local" code="BASOR&quot ; displayName="*BASOPHILS" /> <statusCode code=" completed" /> <effectiveTime value="944448627569" /> <value unit="%" xsi:type="PQ" value="0.6" /> <referenceRange> < observationRange> <text>NRG</text> </ observationRange> </referenceRange> </observation&gt ; </component> <component> <observation moodCode ="EVN" classCode="OBS"> <templateId root=& quot;2.16.840.1.893350.10.20.22.4.2" /> <id nullFlavor=&quot ;NA" /> <code codeSystem="local" code="EOSR& quot; displayName="*EOSINOPHILS" /> <statusCode code=& quot;completed" /> <effectiveTime value="102234241344& quot; /> <value unit="%" xsi:type="PQ&quot ; value="4.5" /> <referenceRange> < observationRange> <text>NRG</text> </ observationRange> </referenceRange> </observation&gt ; </component> <component> <observation moodCode ="EVN" classCode="OBS"> <templateId root=" 2.16.840.1.373768.10..22.4.2" /> <id nullFlavor="NA& quot; /> <code codeSystem="local" code="ADIFP&quot ; displayName="AUTOMATED DIFF" /> <statusCode code=& quot;completed" /> <effectiveTime value="527401207761& quot; /> <value unit="" xsi:type="PQ" value=& quot;PERFORMED" /> <referenceRange> < observationRange> <text>NRG</text> </ observationRange></referenceRange> </observation> &lt ;/component> <component> <observation moodCode="EVN& quot; classCode="OBS"> <templateId root=" 2.16.840.1.836352.10.20.22.4.2" /> <id nullFlavor="NA& quot; /> <code codeSystem="local" code="LYMPR&quot ; displayName="*LYMPHOCYTES" /> <statusCode code=" completed" /> <effectiveTime value="098744044494" /> <value unit="%" xsi:type="PQ" value="17.4" /> <referenceRange> < observationRange> <text>NRG</text> </ observationRange> </referenceRange> </observation&gt ; </component> <component> <observation moodCode ="EVN" classCode="OBS"> <templateId root=& quot;2.16.840.1.896356.10.20.22.4.2" /> <id nullFlavor=&quot ;NA" /> <code codeSystem="local" code="MONOR& quot; displayName="*MONOCYTES" /> <statusCode code=" completed" /> <effectiveTime value="362145704000" /> <value unit="%" xsi:type="PQ" value="5.6" /> <referenceRange> < observationRange> <text>NRG</text> </ observationRange> </referenceRange> </observation&gt ; </component> <component> <observation moodCode ="EVN" classCode="OBS"> <templateId root=& quot;2.16.840.1.022620.10..22.4.2" /> <id nullFlavor=&quot ;NA" /> <code codeSystem="local" code="ABACT& quot; displayName="*ABSOLUTE BASOPHILS" /> <statusCode code="completed" /> <effectiveTime value=" 139322212048" /> <value unit="10*3/uL" xsi:type=& quot;PQ" value="0.10" /> <referenceRange> <observationRange> <text>0.00-0.20</text> </observationRange> </referenceRange> &lt ;/observation> </component> <component> < observation moodCode="EVN" classCode="OBS"> < templateId root="2.16.840.1.797433.10..22.4.2" /> < id nullFlavor="NA" /> <code codeSystem="local&quot ; code="AEOCT" displayName="*ABSOLUTE EOSINOPHILS" /> <statusCode code="completed" /> < effectiveTime value="598119919308" /> <value unit=&quot ;10*3/uL" xsi:type="PQ" value="0.80" /> < interpretationCode codeSystem="local" code="*" /> <referenceRange> <observationRange> < text>0.00-0.50</text> </observationRange> </ referenceRange> </observation> </component> < component> <observation moodCode="EVN" classCode=" OBS"> <templateId root="2.16.840.1.106014.10.20.22.4.2& quot; /> <id nullFlavor="NA" /> <code codeSystem="local" code="ALYCT" displayName="*ABSOLUTE LYMPHOCYTES" /> <statusCode code="completed" /&gt ; <effectiveTime value="864350983137" /> < value unit="10*3/uL" xsi:type="PQ" value="3.10" /& gt; <interpretationCode codeSystem="local" code="*& quot; /> <referenceRange> <observationRange> <text>1.00-3.00</text> </observationRange&gt ; </referenceRange> </observation> </ component> <component> <observation moodCode="EVN& quot; classCode="OBS"> <templateId root=" 2.16.840.1.480983.10.20.22.4.2" /> <id nullFlavor="NA& quot; /> <code codeSystem="local" code="AMOCT&quot ; displayName="*ABSOLUTE MONOCYTES" /> <statusCode code ="completed" /> <effectiveTime value="443478623393& quot; /> <value unit="10*3/uL" xsi:type="PQ" value="1.00" /> <referenceRange> < observationRange> <text>0.30-1.00</text> </observationRange> </referenceRange> </ observation> </component><component> <observation moodCode="EVN" classCode="OBS"> <templateId root=& quot;2.16.840.1.222384.10.20.22.4.2" /> <id nullFlavor=&quot ;NA" /> <code codeSystem="local" code="ANECT& quot; displayName="*ABSOLUTE NEUTROPHILS" /> < statusCode code="completed" /> <effectiveTime value=" 747590212259" /> <value unit="10*3/uL" xsi:type=& quot;PQ" value="12.80" /> <interpretationCode codeSystem="local" code="*" /> < referenceRange> <observationRange> <text> 1.80-7.80</text> </observationRange> </ referenceRange> </observation> </component> < component> <observation moodCode="EVN" classCode=" OBS"> <templateId root="2.16.840.1.393533.10.20.22.4.2& quot; /> <id nullFlavor="NA" /> <code codeSystem="local" code="MPV" displayName="MPV" /& gt; <statusCode code="completed" /> < effectiveTime value="310332058870" /> <value unit=&quot ;fL" xsi:type="PQ" value="7.5" /> < referenceRange> <observationRange> <text> 7.4-10.4</text> </observationRange> </ referenceRange> </observation> </component> < component> <observation moodCode="EVN" classCode=" OBS"> <templateId root="2.16.840.1.518951.10..22.4.2& quot; /> <id nullFlavor="NA" /> <code codeSystem="local" code="PLT" displayName="PLATELETS& quot; /> <statusCode code="completed" /> & lt;effectiveTime value="207374429491" /> <value unit=& quot;10*3/uL" xsi:type="PQ" value="342" /> < referenceRange> <observationRange> <text> 159-386</text> </observationRange> </ referenceRange> </observation> </component> < component> <observation moodCode="EVN" classCode=" OBS"> <templateId root="2.16.840.1.660994.10..22.4.2& quot;/> <id nullFlavor="NA" /> <code codeSystem="local"code="WBCIR" displayName="WBC" / > <statusCode code="completed" /> < effectiveTime value="805539306167" /> <value unit=&quot ;10*3/uL" xsi:type="PQ" value="17.8" /> &lt ;interpretationCode codeSystem="local" code="*" /> <referenceRange><observationRange> <text>3.6- 11.2</text> </observationRange> </ referenceRange> </observation> </component> < component> <observation moodCode="EVN" classCode=" OBS"> <templateId root="2.16.840.1.932620.10.20.22.4.2" /& gt; <id nullFlavor="NA" /> <code codeSystem ="local" code="RBC" displayName="RBC" /> <statusCode code="completed" /> <effectiveTime value="552464494151" /> <value unit="" xsi: type="PQ" value="4.86" /> <referenceRange&gt ; <observationRange> <text>3.63-4.92</text> </observationRange> </referenceRange> &lt ;/observation> </component> <component> < observation moodCode="EVN" classCode="OBS"> < templateId root="2.16.840.1.458708.10..22.4.2" /> < id nullFlavor="NA" /> <code codeSystem="local&quot ; code="HGB" displayName="HEMOGLOBIN" /> < statusCode code="completed" /> <effectiveTime value=& quot;140890885385" /> <value unit="" xsi:type=& quot;PQ" value="13.2" /> <referenceRange> <observationRange> <text>11.0-14.3</text> </observationRange> </referenceRange> & lt;/observation> </component> <component> < observation moodCode="EVN" classCode="OBS"> < templateId root="2.16.840.1.134599.10..22.4.2" /> < id nullFlavor="NA" /> <code codeSystem="local&quot ; code="HCT" displayName="HEMATOCRIT" /> < statusCode code="completed" /> <effectiveTime value=& quot;569066161354" /> <value unit="%" xsi:type=& quot;PQ" value="38.5" /> <referenceRange> <observationRange> <text>31.2-41.9</text> </observationRange> </referenceRange> & lt;/observation> </component> <component> < observation moodCode="EVN" classCode="OBS"> < templateId root="2.16.840.1.863686.10.20.22.4.2" /> < id nullFlavor="NA" /> <code codeSystem="local&quot ; code="MCV" displayName="MCV" /> < statusCode code="completed" /> <effectiveTime value=& quot;724927076284" /> <value unit="fL" xsi:type=& quot;PQ" value="79.2" /> <referenceRange> & lt;observationRange> <text>79.0-98.0</text> </observationRange> </referenceRange> </ observation> </component> <component> < observation moodCode="EVN" classCode="OBS"> < templateId root="2.16.840.1.911995.10.20.22.4.2" /> < id nullFlavor="NA" /> <code codeSystem="local&quot ; code="MCH" displayName="MCH" /> < statusCode code="completed" /> <effectiveTime value=& quot;409691349626" /> <value unit="pg" xsi:type=& quot;PQ" value="27.1" /> <referenceRange> <observationRange> <text>27.0-33.0</text> </observationRange> </referenceRange> & lt;/observation> </component> <component>< observation moodCode="EVN" classCode="OBS"> < templateId root="2.16.840.1.835717.10.20.22.4.2" /> < id nullFlavor="NA" /> <code codeSystem="local" code ="MCHC" displayName="MCHC" /> <statusCode code=& quot;completed" /> <effectiveTime value="077865024073& quot; /> <value unit="" xsi:type="PQ" value=& quot;34.2" /> <referenceRange> < observationRange> <text>32.0-36.0</text> </observationRange> </referenceRange> </ observation> </component> <component> < observation moodCode="EVN" classCode="OBS"> < templateId root="2.16.840.1.744072.10..22.4.2" /> < id nullFlavor="NA" /> <code codeSystem="local&quot ; code="RDW" displayName="RDW" /> < statusCode code="completed" /> <effectiveTime value=& quot;125884215483" /> <value unit="%" xsi: type="PQ" value="14.0" /> <referenceRange&gt ; <observationRange> <text>12.3-17.0</ text> </observationRange> </referenceRange> </observation> </component> <component> & lt;observation moodCode="EVN" classCode="OBS"> & lt;templateId root="2.16.840.1.418386.10.20.22.4.2" /> < id nullFlavor="NA" /> <code codeSystem="local&quot ; code="RDWSD" displayName="RDWSD" /> < statusCode code="completed" /> <effectiveTime value=& quot;786759361257" /> <value unit="" xsi:type=& quot;PQ" value="39.8" /> <referenceRange> &lt ;observationRange> <text>37.1-47.8</text> </observationRange> </referenceRange> </ observation> </component> </organizer> </entry> & lt;entry> <organizer moodCode="EVN" classCode="BATTERY& quot;> <templateId root="2.16.840.1.357253.10.20.22.4.1" /& gt; <id nullFlavor="NA" /> <code codeSystem="local " code="PT" displayName="PROTHROMBIN TIME" /> & lt;statusCode code="completed" /> <component> &lt ;observation moodCode="EVN" classCode="OBS"> &lt ;templateId root="2.16.840.1.939851.10.20.22.4.2" /> < id nullFlavor="NA" /> <code codeSystem="local&quot ; code="INR" displayName="*INR" /> < statusCode code="completed" /> <effectiveTime value=& quot;906179910647" /> <value unit="" xsi:type=& quot;PQ" value="1.0" /> <referenceRange> <observationRange> <text>0.9-1.1</text> </observationRange> </referenceRange> </ observation> </component> <component><observation moodCode="EVN" classCode="OBS"> <templateId root="2.16.840.1.058656.10.20.22.4.2" /> <id nullFlavor ="NA" /> <code codeSystem="local" code="PTI& quot; displayName="*PROTHROMBIN TIME" /> <statusCode code="completed" /> <effectiveTime value=" 038946849508" /> <value unit="s" xsi:type="PQ " value="10.3" /> <referenceRange> & lt;observationRange><text>9.4-11.5</text> </ observationRange> </referenceRange> </observation&gt ; </component> </organizer> </entry> <entry> <organizer moodCode="EVN" classCode="BATTERY"> <templateId root="2.16.840.1.338156.10.20.22.4.1" /> < id nullFlavor="NA" /> <code codeSystem="local" code ="APTT" displayName="PARTIAL THROMBOPLASTIN TIME" /> <statusCode code="completed" /> <component> < observation moodCode="EVN" classCode="OBS"> < templateId root="2.16.840.1.322620.10.20.22.4.2" /> < id nullFlavor="NA" /> <code codeSystem="local" code="APTT" displayName="PARTIAL THROMBOPLASTIN TIME" /> <statusCode code="completed" /> < effectiveTime value="293102893130" /> <value unit=&quot ;s" xsi:type="PQ" value="32.4" /> < interpretationCode codeSystem="local" code="*" /> <referenceRange> <observationRange> < text>23.0-31.0</text> </observationRange> &lt ;/referenceRange> </observation> </component> < /organizer> </entry> <entry> <organizer moodCode=" EVN" classCode="BATTERY"> <templateId root=" 2.16.840.1.472519.10.20.22.4.1" /> <id nullFlavor="NA&quot ; /> <code codeSystem="local" code="LA" displayName ="LACTIC ACID" /> <statusCode code="completed" /& gt; <component> <observation moodCode="EVN" classCode="OBS"> <templateId root=" 2.16.840.1.116124.10.20.22.4.2" /> <id nullFlavor="NA& quot; /> <code codeSystem="local" code="LA" displayName="LACTIC ACID" /> <statusCode code=" completed" /> <effectiveTime value="721718538448" /> <value unit="" xsi:type="PQ" value=" 0.7" /> <interpretationCode codeSystem="local" code=& quot;*" /> <referenceRange> < observationRange> <text>0.9-1.7</text> </ observationRange> </referenceRange> </observation&gt ; </component> </organizer> </entry> <entry> <organizer moodCode="EVN" classCode="BATTERY"> <templateId root="2.16.840.1.284601.10.20.22.4.1" /> < id nullFlavor="NA" /> <code codeSystem="local" code="CBC" displayName="CBC WITH PLATELET AND DIFFERENTIAL" /> <statusCode code="completed" /> <component&gt ; <observation moodCode="EVN" classCode="OBS"> <templateId root="2.16.840.1.569621.10.20.22.4.2" /> <id nullFlavor="NA" /> <code codeSystem=& quot;local" code="SEGR" displayName="SEGS" /> <statusCode code="completed" /> <effectiveTime value="375997768392" /> <value unit="%& quot; xsi:type="PQ" value="71.9" /> < referenceRange> <observationRange> <text> NRG</text> </observationRange> </referenceRange> </observation> </component> <component> <observation moodCode="EVN" classCode="OBS"> <templateId root="2.16.840.1.444058.10.20.22.4.2" /> < id nullFlavor="NA" /> <code codeSystem="local&quot ; code="BASOR" displayName="*BASOPHILS" /> < statusCode code="completed"/> <effectiveTime value=& quot;995766681651" /> <value unit="%" xsi: type="PQ" value="0.6" /> <referenceRange> <observationRange> <text>NRG</text> </observationRange> </referenceRange> </ observation> </component> <component> < observation moodCode="EVN" classCode="OBS"> < templateId root="2.16.840.1.772170.10.20.22.4.2" /> < id nullFlavor="NA" /> <code codeSystem="local&quot ; code="EOSR" displayName="*EOSINOPHILS" /> < statusCode code="completed" /> <effectiveTime value=& quot;619439137078" /> <value unit="%" xsi: type="PQ" value="4.5" /> <referenceRange> <observationRange> <text>NRG</text> </observationRange> </referenceRange> </ observation> </component> <component> < observation moodCode="EVN" classCode="OBS"> < templateId root="2.16.840.1.390218.10.20.22.4.2" /> < id nullFlavor="NA" /> <code codeSystem="local&quot ; code="ADIFP" displayName="AUTOMATEDDIFF" /> & lt;statusCode code="completed" /> <effectiveTimevalue=& quot;486781272425" /> <value unit="" xsi:type=& quot;PQ" value="PERFORMED" /> <referenceRange> <observationRange> <text>NRG</text> </observationRange> </referenceRange> </ observation> </component> <component> < observation moodCode="EVN" classCode="OBS"> < templateId root="2.16.840.1.320682.10.20.22.4.2" /> < id nullFlavor="NA" /> <code codeSystem="local&quot ; code="LYMPR" displayName="*LYMPHOCYTES" /> < statusCode code="completed" /> <effectiveTime value=& quot;691938785383" /> <value unit="%" xsi: type="PQ" value="17.4" /> <referenceRange&gt ; <observationRange> <text>NRG</text> </observationRange> </referenceRange></ observation> </component> <component> < observation moodCode="EVN" classCode="OBS"> < templateId root="2.16.840.1.450510.10.20.22.4.2" /> < id nullFlavor="NA" /> <code codeSystem="local&quot ; code="MONOR" displayName="*MONOCYTES" /> < statusCode code="completed" /> <effectiveTime value=& quot;341132166683" /> <value unit="%" xsi: type="PQ" value="5.6" /> <referenceRange> <observationRange> <text>NRG</text> </observationRange> </referenceRange> </ observation> </component> <component> < observation moodCode="EVN" classCode="OBS"> < templateId root="2.16.840.1.006440.10.20.22.4.2" /> < id nullFlavor="NA" /> <code codeSystem="local&quot ; code="ABACT" displayName="*ABSOLUTE BASOPHILS" /> <statusCode code="completed" /> <effectiveTime value="977615694644" /> <value unit="10*3/uL&quot ; xsi:type="PQ" value="0.10" /> < referenceRange> <observationRange> <text> 0.00-0.20</text> </observationRange> </ referenceRange> </observation> </component> < component> <observation moodCode="EVN" classCode=" OBS"> <templateId root="2.16.840.1.151107.10.20.22.4.2& quot; /> <id nullFlavor="NA" /> <code codeSystem="local" code="AEOCT" displayName="*ABSOLUTE EOSINOPHILS" /> <statusCode code="completed" /&gt ; <effectiveTime value="220308583893" /> < value unit="10*3/uL" xsi:type="PQ" value="0.80" /& gt; <interpretationCode codeSystem="local" code="*& quot; /> <referenceRange> <observationRange> <text>0.00-0.50</text> </observationRange& gt; </referenceRange> </observation> </ component> <component> <observation moodCode="EVN& quot; classCode="OBS"> <templateId root=" 2.16.840.1.586873.10.20.22.4.2" /> <id nullFlavor="NA& quot; /> <code codeSystem="local" code="ALYCT&quot ; displayName="*ABSOLUTE LYMPHOCYTES" /> <statusCode code="completed" /> <effectiveTime value=" 552483945635" /> <value unit="10*3/uL" xsi:type=& quot;PQ" value="3.10" /> <interpretationCode codeSystem="local" code="*" /> < referenceRange> <observationRange> <text> 1.00-3.00</text> </observationRange> </ referenceRange> </observation> </component> < component> <observation moodCode="EVN" classCode=" OBS"> <templateId root="2.16.840.1.946899.10.20.22.4.2& quot; /> <id nullFlavor="NA" /> <code codeSystem="local" code="AMOCT" displayName="*ABSOLUTE MONOCYTES" /> <statusCode code="completed" /> <effectiveTime value="149776960314" /> < value unit="10*3/uL" xsi:type="PQ" value="1.00" /& gt; <referenceRange> <observationRange> <text>0.30-1.00</text> </observationRange> </referenceRange> </observation> </component> <component> <observation moodCode="EVN" classCode ="OBS"> <templateId root=" 2.16.840.1.555103.10.20.22.4.2" /> <id nullFlavor="NA& quot; /> <code codeSystem="local" code="ANECT&quot ; displayName="*ABSOLUTE NEUTROPHILS" /> <statusCode code="completed" /> <effectiveTime value=" [id number]" /> <value unit="10*3/uL" xsi:type=& quot;PQ" value="12.80" /> <interpretationCode codeSystem="local" code="*" /> < referenceRange> <observationRange> <text>1.80- 7.80</text> </observationRange> </ referenceRange> </observation> </component> < component> <observation moodCode="EVN" classCode=" OBS"> <templateId root="[id number]& quot; /> <id nullFlavor="NA" /> <code codeSystem="local" code="MPV" displayName="MPV" /& gt; <statusCode code="completed" /> < effectiveTime value="506812995578" /> <value unit=&quot ;fL" xsi:type="PQ" value="7.5" /> < referenceRange> <observationRange> <text> 7.4-10.4</text> </observationRange> </ referenceRange> </observation> </component> < component> <observation moodCode="EVN" classCode=" OBS"> <templateId root="2.16.840.1.586032.10.20.22.4.2& quot; /> <id nullFlavor="NA" /> <code codeSystem="local" code="PLT" displayName="PLATELETS& quot; /> <statusCode code="completed" /> & lt;effectiveTime value="154436464819" /> <value unit=& quot;10*3/uL" xsi:type="PQ" value="342" /> <referenceRange> <observationRange> <text >159-386</text> </observationRange> </ referenceRange> </observation> </component> < component> <observation moodCode="EVN" classCode=" OBS"> <templateId root="2.16.840.1.166269.10.20.22.4.2& quot; /><id nullFlavor="NA" /> <code codeSystem=& quot;local" code="WBCIR" displayName="WBC" /> <statusCode code="completed" /> <effectiveTime value="762618577470" /> <value unit="10*3/uL&quot ; xsi:type="PQ" value="17.8" /> < interpretationCode codeSystem="local" code="*" /> <referenceRange> <observationRange> < text>3.6-11.2</text> </observationRange> </ referenceRange> </observation> </component> < component> <observation moodCode="EVN" classCode="OBS "> <templateId root="2.16.840.1.682442.10.20.22.4.2& quot; /> <id nullFlavor="NA" /> <code codeSystem="local" code="RBC" displayName="RBC" /& gt; <statusCode code="completed" /> < effectiveTime value="292772904083" /> <value unit=&quot ;" xsi:type="PQ" value="4.86" /> < referenceRange> <observationRange> <text> 3.63-4.92</text> </observationRange> </ referenceRange> </observation> </component> < component> <observation moodCode="EVN" classCode=" OBS"> <templateId root="2.16.840.1.334111.10.20.22.4.2& quot; /> <id nullFlavor="NA" /> <code codeSystem="local" code="HGB" displayName="HEMOGLOBIN& quot; /> <statusCode code="completed" /> & lt;effectiveTime value="467298051703" /> <value unit=& quot;" xsi:type="PQ" value="13.2" /> < referenceRange> <observationRange> <text> 11.0-14.3</text> </observationRange> </ referenceRange> </observation> </component> < component> <observation moodCode="EVN" classCode=" OBS"> <templateId root="2.16.840.1.667017.10.20.22.4.2& quot; /> <id nullFlavor="NA" /> <code codeSystem="local" code="HCT" displayName="HEMATOCRIT& quot; /> <statusCode code="completed" /> & lt;effectiveTime value="792445144307" /> <value unit=& quot;%" xsi:type="PQ" value="38.5" /> <referenceRange> <observationRange> < text>31.2-41.9</text> </observationRange> </ referenceRange> </observation> </component> < component> <observation moodCode="EVN" classCode=" OBS"> <templateId root="2.16.840.1.281978.10.20.22.4.2& quot; /> <id nullFlavor="NA" /> <code codeSystem="local" code="MCV" displayName="MCV" /& gt; <statusCode code="completed" /> <effectiveTime value="551705075514" /> <value unit="fL" xsi: type="PQ" value="79.2" /> <referenceRange&gt ; <observationRange> <text>79.0-98.0</ text> </observationRange> </referenceRange> </observation> </component> <component> <observation moodCode="EVN" classCode="OBS"> <templateId root="2.16.840.1.353186.10.20.22.4.2" /> & lt;id nullFlavor="NA" /> <code codeSystem="local& quot; code="MCH" displayName="MCH" /> < statusCode code="completed" /> <effectiveTime value=& quot;655729003475" /> <value unit="pg" xsi:type=& quot;PQ" value="27.1" /> <referenceRange> <observationRange><text>27.0-33.0</text> &lt ;/observationRange> </referenceRange> </observation& gt; </component> <component> <observation moodCode="EVN" classCode="OBS"> <templateId root="2.16.840.1.747418.10.20.22.4.2" /> <id nullFlavor ="NA" /> <code codeSystem="local" code=" MCHC" displayName="MCHC" /> <statusCode code=&quot ;completed" /> <effectiveTime value="263875907870&quot ; /> <value unit="" xsi:type="PQ" value=&quot ;34.2" /> <referenceRange> <observationRange> <text>32.0-36.0</text> </observationRange& gt; </referenceRange> </observation> </ component> <component> <observation moodCode="EVN& quot; classCode="OBS"> <templateId root=" 2.16.840.1.787856.10.20.22.4.2" /> <id nullFlavor="NA& quot; /> <code codeSystem="local" code="RDW" displayName="RDW" /> <statusCode code="completed& quot; /> <effectiveTime value="277512031250" /> <value unit="%" xsi:type="PQ" value=" 14.0" /> <referenceRange> <observationRange > <text>12.3-17.0</text> </ observationRange> </referenceRange> </observation&gt ; </component> <component> <observation moodCode ="EVN" classCode="OBS"> <templateId root=& quot;2.16.840.1.906628.10.20.22.4.2" /> <idnullFlavor=" NA" /> <code codeSystem="local" code="RDWSD& quot; displayName="RDWSD" /> <statusCode code=" completed" /> <effectiveTime value="671734962311" /> <value unit="" xsi:type="PQ" value="39.8& quot; /> <referenceRange> <observationRange> <text>37.1-47.8</text> </ observationRange> </referenceRange> </observation> </component> </organizer> </entry> <entry> & lt;organizer moodCode="EVN" classCode="BATTERY"> &lt ;templateId root="2.16.840.1.426443.10.20.22.4.1" /> <id nullFlavor="NA" /> <code codeSystem="local" code= "PT" displayName="PROTHROMBIN TIME" /> < statusCode code="completed" /> <component> < observation moodCode="EVN" classCode="OBS"> < templateId root="2.16.840.1.158815.10.20.22.4.2" /> < id nullFlavor="NA" /> <code codeSystem="local&quot ; code="INR" displayName="*INR" /> < statusCode code="completed" /> <effectiveTime value=& quot;905735330461" /> <value unit="" xsi:type=& quot;PQ" value="1.0" /> <referenceRange> <observationRange> <text>0.9-1.1</text> < /observationRange> </referenceRange> </observation& gt; </component> <component> <observation moodCode="EVN" classCode="OBS"> <templateId root="2.16.840.1.963789.10.20.22.4.2" /> <id nullFlavor ="NA" /> <code codeSystem="local" code=" PTI" displayName="*PROTHROMBIN TIME" /> <statusCode code ="completed" /> <effectiveTime value="796403759630 " /> <value unit="s" xsi:type="PQ" value ="10.3" /> <referenceRange> < observationRange> <text>9.4-11.5</text> & lt;/observationRange> </referenceRange> </ observation> </component> </organizer> </entry> & lt;entry> <organizer moodCode="EVN" classCode="BATTERY& quot;> <templateId root="2.16.840.1.275539.10.20.22.4.1" /& gt; <id nullFlavor="NA" /> <code codeSystem=" local" code="APTT" displayName="PARTIAL THROMBOPLASTIN TIME& quot;/> <statusCode code="completed" /> < component> <observation moodCode="EVN" classCode=" OBS"> <templateId root="2.16.840.1.948971.10.20.22.4.2& quot; /> <id nullFlavor="NA" /> <code codeSystem="local" code="APTT" displayName="PARTIAL THROMBOPLASTIN TIME" /> <statusCode code="completed& quot; /> <effectiveTime value="598722479365" /> <value unit="s" xsi:type="PQ" value="32.4&quot ; /> <interpretationCode codeSystem="local" code=" *" /> <referenceRange> <observationRange&gt ; <text>23.0-31.0</text> </ observationRange> </referenceRange> </observation&gt ; </component> </organizer> </entry> <entry> <organizer moodCode="EVN" classCode="BATTERY"> <templateId root="2.16.840.1.233958.10.20.22.4.1" /> < id nullFlavor="NA" /> <code codeSystem="local" code="UAPRN" displayName="URINALYSIS (CULTURE PRN)" /> <statusCode code="completed" /> <component> <observation moodCode="EVN" classCode="OBS"> <templateId root="2.16.840.1.376281.10.20.22.4.2" /> <id nullFlavor="NA" /> <code codeSystem=" local" code="ERIC" displayName="*URINE APPEARANCE" /&gt ; <statusCode code="completed" /> < effectiveTime value="506667389451" /> <value unit=&quot ;" xsi:type="PQ" value="CLEAR"/> < referenceRange> <observationRange> <text> CLEAR</text> </observationRange> </ referenceRange> </observation> </component> < component> <observation moodCode="EVN" classCode=" OBS"> <templateId root="2.16.840.1.866651.10.20.22.4.2& quot; /> <id nullFlavor="NA" /> <code codeSystem="local" code="UBIL" displayName="*URINE BILIRUBIN" /> <statusCode code="completed" /> <effectiveTime value="407626731271" /> <value unit="" xsi:type="PQ" value="NEGATIVE" /> <referenceRange> <observationRange> &lt ;text>NEGATIVE</text> </observationRange> &lt ;/referenceRange> </observation> </component> & lt;component> <observation moodCode="EVN" classCode=&quot ;OBS"> <templateId root="2.16.840.1.584127.10.20.22.4.2 " /> <id nullFlavor="NA" /> <code codeSystem="local" code="UBLO" displayName="*URINE BLOOD" /> <statusCode code="completed" /> <effectiveTime value="396085118786" /> <value unit="" xsi:type="PQ" value="TRACE-INTACT" /> <interpretationCode codeSystem="local" code="*" /> <referenceRange> <observationRange> <text>NEGATIVE</text> </observationRange> </referenceRange> </observation> </component> &lt ;component> <observation moodCode="EVN" classCode=" OBS"> <templateId root="2.16.840.1.201114.10..22.4.2&quot ; /> <id nullFlavor="NA" /> <code codeSystem="local" code="UGLU" displayName="*URINE GLUCOSE" /> <statusCode code="completed" />< effectiveTime value="544602070981" /> <value unit=&quot ;" xsi:type="PQ" value="NEGATIVE" /> < referenceRange> <observationRange> <text> NEGATIVE</text> </observationRange> </ referenceRange> </observation> </component> < component> <observation moodCode="EVN" classCode=" OBS"> <templateId root="2.16.840.1.162763.10.20.22.4.2& quot; /> <id nullFlavor="NA" /> <code codeSystem="local" code="UKET" displayName="* URINEKETONES" /> <statusCode code="completed" /&gt ; <effectiveTime value="120682574030" /> < value unit="" xsi:type="PQ"value="NEGATIVE" /> <referenceRange> <observationRange> <text>NEGATIVE</text> </observationRange> </referenceRange> </observation> </component> <component> <observation moodCode="EVN" classCode ="OBS"> <templateId root=" 2.16.840.1.795882.10.20.22.4.2" /> <id nullFlavor="NA& quot; /> <code codeSystem="local" code="ULEU" displayName="*URINE LEUKOCYTES" /> <statusCode code=& quot;completed" /> <effectiveTime value="403761802646& quot; /> <value unit="" xsi:type="PQ" value=& quot;NEGATIVE" /> <referenceRange> < observationRange> <text>NEGATIVE</text> </ observationRange> </referenceRange> </observation&gt ; </component> <component> <observation moodCode ="EVN" classCode="OBS"> <templateId root=& quot;2.16.840.1.596560.10.20.22.4.2" /> <id nullFlavor=&quot ;NA" /> <code codeSystem="local" code="UNIT& quot; displayName="*URINE NITRITES" /> <statusCode code=" completed" /> <effectiveTime value="755053854858" /> <value unit="" xsi:type="PQ" value=" NEGATIVE" /> <referenceRange> < observationRange> <text>NEGATIVE</text> & lt;/observationRange> </referenceRange> </ observation> </component> <component> < observation moodCode="EVN" classCode="OBS"> < templateId root="2.16.840.1.558672.10.20.22.4.2" /> < id nullFlavor="NA" /> <code codeSystem="local&quot ; code="UPH" displayName="URINE PH" /> < statusCode code="completed" /> <effectiveTime value=& quot;245119500811" /> <value unit="" xsi:type="PQ&quot ; value="6.0" /> <referenceRange> < observationRange> <text>5.0-8.0</text> </ observationRange> </referenceRange> </observation&gt ; </component> <component> <observation moodCode ="EVN" classCode="OBS"> <templateId root=& quot;2.16.840.1.330781.10.20.22.4.2" /><id nullFlavor="NA" /> <code codeSystem="local" code="UPRO" displayName="*URINE PROTEIN" /> <statusCode code=" completed" /> <effectiveTime value="368331744161" /> <value unit="" xsi:type="PQ" value=" NEGATIVE" /> <referenceRange> <observationRange& gt; <text>NEGATIVE</text> </ observationRange> </referenceRange> </observation&gt ; </component> <component> <observation moodCode=& quot;EVN" classCode="OBS"> <templateId root=" 2.16.840.1.124434.10.20.22.4.2" /> <id nullFlavor="NA& quot; /> <code codeSystem="local" code="SGUR&quot ; displayName="URINE SPECIFIC GRAVITY" /> <statusCode code="completed" /> <effectiveTime value=" 787484332720" /> <value unit="" xsi:type="PQ& quot; value="<1.005" /> <referenceRange> <observationRange> <text><=1.005->=1.030& lt;/text> </observationRange> </referenceRange> </observation> </component> <component> <observation moodCode="EVN" classCode="OBS"> <templateId root="2.16.840.1.788137.10..22.4.2" /> < id nullFlavor="NA" /> <code codeSystem="local&quot ; code="URO" displayName="*URINE UROBILINOGEN" /> <statusCode code="completed" /> <effectiveTime value="083275844988" /> <value unit="" xsi: type="PQ" value="0.2" /> <referenceRange> <observationRange> <text>0.2-1.0</text&gt ; </observationRange> </referenceRange> & lt;/observation> </component> <component> < observation moodCode="EVN" classCode="OBS"> < templateId root="2.16.840.1.348414.10.20.22.4.2" /> < id nullFlavor="NA" /> <code codeSystem="local&quot ; code="COLOR" displayName="*URINE COLOR" /> &lt ;statusCode code="completed" /> <effectiveTime value=" 903159064884" /> <value unit="" xsi:type="PQ& quot; value="YELLOW" /> <referenceRange> <observationRange> <text>STRAW/YELL/DK YELL</text&gt ; </observationRange> </referenceRange> & lt;/observation> </component> </organizer> </entry&gt ; <entry> <organizer moodCode="EVN" classCode=" BATTERY"> <templateId root="2.16.840.1.263509.10.20.22.4.1& quot; /> <id nullFlavor="NA" /> <code codeSystem ="local" code="UMIC" displayName="URINE MICROSCOPIC& quot; /> <statusCode code="completed" /> < component> <observation moodCode="EVN" classCode=" OBS"> <templateId root="2.16.840.1.667418.10.20.22.4.2& quot; /> <id nullFlavor="NA" /> <code codeSystem="local" code="WBCUR" displayName="WBC" /> <statusCode code="completed" /> < effectiveTime value="523477972283" /> <value unit=&quot ;/[HPF]" xsi:type="PQ" value="0-1" /> < referenceRange> <observationRange> <text> 0-5</text> </observationRange> </ referenceRange> </observation> </component> < component> <observation moodCode="EVN" classCode="OBS& quot;> <templateId root="2.16.840.1.188820.10.20.22.4.2&quot ; /> <id nullFlavor="NA" /> <code codeSystem="local" code="RBCUR" displayName="RBC" /> <statusCode code="completed" /> < effectiveTime value="786185661826" /> <value unit=&quot ;/[HPF]" xsi:type="PQ" value="1-5" /> < interpretationCode codeSystem="local" code="*" /> <referenceRange> <observationRange> < text>0-1</text> </observationRange> </ referenceRange> </observation> </component> < component> <observation moodCode="EVN"classCode="OBS "> <templateId root="2.16.840.1.831760.10.20.22.4.2& quot; /> <id nullFlavor="NA" /> <code codeSystem="local" code="UMICP" displayName=" MICROSCOPIC EXAM PERFORMED" /> <statusCode code=" completed" /> <effectiveTime value="205131402141" /> <value unit="" xsi:type="PQ" value=" PERFORMED" /> <referenceRange> <observationRange& gt; <text>NRG</text> </observationRange& gt; </referenceRange> </observation> </ component> <component> <observation moodCode="EVN& quot; classCode="OBS"> <templateId root=" 2.16.840.1.316921.10.20.22.4.2" /> <id nullFlavor="NA& quot; /> <code codeSystem="local" code="SQEP&quot ; displayName="SQUAMOUS EP. CELLS" /> <statusCode code= "completed" /> <effectiveTime value="114380252913& quot; /> <value unit="/[LPF]" xsi:type="PQ" value="MODERATE" /> <interpretationCode codeSystem=& quot;local" code="*" /> <referenceRange> <observationRange> <text>NEG-FEW</text> </observationRange> </referenceRange> </ observation> </component> </organizer> </entry> & lt;entry> <organizer moodCode="EVN" classCode="BATTERY& quot;> <templateId root="2.16.840.1.797204.10..22.4.1" /& gt; <id nullFlavor="NA" /> <code codeSystem=" local" code="UAPRN" displayName="URINALYSIS (CULTURE PRN)& quot; /> <statusCode code="completed" /> < component> <observation moodCode="EVN" classCode=" OBS"> <templateId root="2.16.840.1.248851.10.20.22.4.2& quot; /> <id nullFlavor="NA" /> <code codeSystem="local" code="ERIC" displayName="*URINE APPEARANCE" /> <statusCode code="completed" /> <effectiveTime value="522281022055" /> < value unit="" xsi:type="PQ" value="CLEAR" /> <referenceRange> <observationRange> <text>CLEAR</text> </observationRange> &lt ;/referenceRange> </observation> </component> & lt;component> <observation moodCode="EVN" classCode=&quot ;OBS"> <templateId root="2.16.840.1.921308.10.20.22.4.2 " /> <id nullFlavor="NA" /> <code codeSystem="local" code="UBIL" displayName="*URINE BILIRUBIN" /> <statusCode code="completed" /> <effectiveTime value="910828062566" /> <value unit="" xsi:type="PQ" value="NEGATIVE" /> <referenceRange> <observationRange> &lt ;text>NEGATIVE</text> </observationRange> &lt ;/referenceRange> </observation> </component> & lt;component> <observation moodCode="EVN" classCode=&quot ;OBS"> <templateId root="2.16.840.1.141984.10..22.4.2 " /> <id nullFlavor="NA" /> <code codeSystem="local" code="UBLO" displayName="*URINE BLOOD" /> <statusCode code="completed" /> <effectiveTime value="254942976766" /> <value unit="" xsi:type="PQ" value="TRACE-INTACT" /> <interpretationCode codeSystem="local" code="*" /> <referenceRange> <observationRange> & lt;text>NEGATIVE</text> </observationRange> & lt;/referenceRange> </observation> </component> <component> <observation moodCode="EVN" classCode=& quot;OBS"> <templateId root=" 2.16.840.1.238710.10.20.22.4.2" /> <id nullFlavor="NA& quot; /> <code codeSystem="local" code="UGLU&quot ; displayName="*URINE GLUCOSE" /> <statusCode code=" completed" /> <effectiveTime value="442321418021" /> <value unit="" xsi:type="PQ" value=" NEGATIVE" /> <referenceRange> < observationRange> <text>NEGATIVE</text> & lt;/observationRange> </referenceRange> </observation> </component> <component> <observation moodCode=& quot;EVN" classCode="OBS"> <templateId root=" 2.16.840.1.299361.10.20.22.4.2" /> <id nullFlavor="NA& quot; /> <code codeSystem="local" code="UKET&quot ; displayName="*URINE KETONES" /> <statusCode code=& quot;completed" /> <effectiveTime value="854111820174& quot; /> <value unit="" xsi:type="PQ" value=& quot;NEGATIVE" /> <referenceRange> < observationRange> <text>NEGATIVE</text> & lt;/observationRange> </referenceRange> </ observation> </component> <component> < observation moodCode="EVN" classCode="OBS"> < templateId root="2.16.840.1.055603.10.20.22.4.2" /> < id nullFlavor="NA" /> <code codeSystem="local&quot ; code="ULEU" displayName="*URINE LEUKOCYTES" /> <statusCode code="completed" /> <effectiveTime value="863369882608" /><value unit="" xsi:type=" PQ" value="NEGATIVE" /> <referenceRange> <observationRange> <text>NEGATIVE</text> </observationRange> </referenceRange> </ observation></component> <component> <observation moodCode="EVN" classCode="OBS"> <templateId root="2.16.840.1.261492.10.20.22.4.2" /> <id nullFlavor=& quot;NA" /> <code codeSystem="local" code=" UNIT" displayName="*URINE NITRITES" /> < statusCode code="completed" /> <effectiveTime value=& quot;203521671458" /> <value unit="" xsi:type=& quot;PQ" value="NEGATIVE" /> <referenceRange> <observationRange> <text>NEGATIVE</text& gt; </observationRange> </referenceRange> </observation> </component> <component> &lt ;observation moodCode="EVN" classCode="OBS"> &lt ;templateId root="2.16.840.1.930430.10..22.4.2" /> < id nullFlavor="NA" /> <code codeSystem="local&quot ; code="UPH" displayName="URINE PH" /> < statusCode code="completed" /> <effectiveTime value=" 913067974932" /> <value unit="" xsi:type="PQ& quot; value="6.0" /> <referenceRange> &lt ;observationRange> <text>5.0-8.0</text> & lt;/observationRange> </referenceRange> </observation> </component> <component> <observation moodCode=& quot;EVN" classCode="OBS"> <templateId root=" 2.16.840.1.224857.10.20.22.4.2" /> <id nullFlavor="NA& quot; /> <code codeSystem="local" code="UPRO&quot ; displayName="*URINE PROTEIN" /> <statusCode code=& quot;completed" /> <effectiveTime value="053731875002& quot; /> <value unit="" xsi:type="PQ" value=& quot;NEGATIVE" /> <referenceRange> < observationRange> <text>NEGATIVE</text> </ observationRange> </referenceRange> </observation&gt ; </component> <component> <observation moodCode ="EVN" classCode="OBS"> <templateId root=& quot;2.16.840.1.676214.10.20.22.4.2" /> <id nullFlavor=&quot ;NA" /> <code codeSystem="local" code="SGUR& quot; displayName="URINE SPECIFIC GRAVITY" /> < statusCode code="completed" /> <effectiveTime value=& quot;494802358106" /> <value unit="" xsi:type=& quot;PQ" value="<1.005" /> <referenceRange& gt; <observationRange> <text><=1.005-> =1.030</text> </observationRange> </ referenceRange> </observation> </component> < component> <observation moodCode="EVN" classCode=" OBS"> <templateId root="2.16.840.1.527336.10..22.4.2& quot; /> <id nullFlavor="NA"/> <code codeSystem="local" code="URO" displayName="*URINE UROBILINOGEN" /> <statusCode code="completed" /&gt ; <effectiveTime value="061817728889" /> < value unit="" xsi:type="PQ" value="0.2" /> <referenceRange> <observationRange> < text>0.2-1.0</text> </observationRange> </ referenceRange> </observation> </component> < component> <observation moodCode="EVN" classCode=" OBS"> <templateId root="2.16.840.1.252577.10.20.22.4.2& quot; /> <id nullFlavor="NA" /> <code codeSystem="local" code="COLOR" displayName="*URINE COLOR" /> <statusCode code="completed" /> <effectiveTime value="063608724107" /> <value unit="" xsi:type="PQ" value="YELLOW" /> <referenceRange> <observationRange> < text>STRAW/YELL/DK YELL</text> </observationRange> </referenceRange> </observation> </component& gt; </organizer> </entry> <entry> <organizer moodCode="EVN" classCode="BATTERY"> <templateId root="2.16.840.1.474164.10.20.22.4.1" /> <id nullFlavor=& quot;NA" /> <code codeSystem="local" code="UMIC& quot; displayName="URINE MICROSCOPIC" /> <statusCode code=& quot;completed" /> <component> <observation moodCode="EVN" classCode="OBS"> <templateId root="2.16.840.1.895213.10.20.22.4.2" /> <id nullFlavor ="NA" /> <code codeSystem="local" code=" WBCUR" displayName="WBC" /> <statusCode code=" completed" /> <effectiveTime value="816844597690" /> <value unit="/[HPF]" xsi:type="PQ" value=& quot;0-1" /> <referenceRange> < observationRange> <text>0-5</text> </ observationRange> </referenceRange> </observation&gt ; </component> <component> <observation moodCode ="EVN" classCode="OBS"> <templateId root=& quot;2.16.840.1.278886.10.20.22.4.2" /> <id nullFlavor=&quot ;NA" /> <code codeSystem="local" code="RBCUR& quot; displayName="RBC" /> <statusCode code=" completed" /> <effectiveTime value="657784659050" /> <value unit="/[HPF]" xsi:type="PQ" value=& quot;1-5" /> <interpretationCode codeSystem="local&quot ; code="*" /> <referenceRange> < observationRange> <text>0-1</text> </ observationRange> </referenceRange> </observation&gt ; </component> <component> <observation moodCode ="EVN" classCode="OBS"> <templateId root=" 2.16.840.1.543729.10..22.4.2" /> <id nullFlavor="NA& quot; /> <code codeSystem="local" code="UMICP&quot ; displayName="MICROSCOPIC EXAM PERFORMED" /> < statusCode code="completed" /> <effectiveTime value=& quot;319306413270" /> <value unit=""xsi:type=&quot ;PQ" value="PERFORMED" /> <referenceRange>< observationRange> <text>NRG</text> </ observationRange> </referenceRange> </observation&gt ; </component> <component> <observation moodCode ="EVN" classCode="OBS"> <templateId root=& quot;2.16.840.1.819050.10..22.4.2" /> <id nullFlavor=&quot ;NA" /> <code codeSystem="local" code="SQEP& quot; displayName="SQUAMOUS EP. CELLS" /> <statusCode code="completed" /> <effectiveTime value=" 083454232501" /> <value unit="/[LPF]" xsi:type=& quot;PQ" value="MODERATE" /> <interpretationCode codeSystem="local" code="*" /> < referenceRange> <observationRange> <text> NEG-FEW</text> </observationRange> </ referenceRange> </observation> </component> </ organizer> </entry> <entry> <organizer moodCode="EVN " classCode="BATTERY"> <templateId root=" 2.16.840.1.705806.10.20.22.4.1" /> <id nullFlavor="NA&quot ; /> <code codeSystem="local" code="CXBLD" displayName="CULTURE BLOOD" /> <statusCode code=" completed" /> <component> <observation moodCode="EVN " classCode="OBS"> <templateId root=" [id number]" /> <id nullFlavor="NA& quot; /> <code codeSystem="local" code="CXBLD" displayName="CULTURE BLOOD" /> <statusCode code=" completed" /> <effectiveTime value="[id number]" /> <value unit="" xsi:type="PQ" value=" No growth after 5 days of incubation." /> <referenceRange&gt ; <observationRange> <text>NRG</text> </observationRange> </referenceRange> </ observation> </component> </organizer> </entry> & lt;entry> <organizer moodCode="EVN" classCode="BATTERY& quot;> <templateId root="2.16.840.1.197730.10.20.22.4.1" /& gt; <id nullFlavor="NA" /> <code codeSystem=" local" code="CXBLD" displayName="CULTURE BLOOD" /> <statusCode code="completed" /> <component> <observation moodCode="EVN" classCode="OBS"> <templateId root="2.16.840.1.931437.10.20.22.4.2" /> <id nullFlavor="NA" /> <code codeSystem=" local" code="CXBLD" displayName="CULTURE BLOOD" /> <statusCode code="completed" /> < effectiveTime value="418277924483" /> <value unit=&quot ;" xsi:type="PQ" value="No growth after 5 days of incubation." /> <referenceRange> < observationRange> <text>NRG</text> </ observationRange> </referenceRange> </observation&gt ; </component> </organizer> </entry> <entry> <organizer moodCode="EVN" classCode="BATTERY"> <templateId root="2.16.840.1.442139.10.20.22.4.1" /> <id nullFlavor="NA" /> <code codeSystem="local" code= "CMP" displayName="COMPREHENSIVE METABOLIC PANEL" /> <statusCode code="completed" /> <component> <observation moodCode="EVN" classCode="OBS"> <templateId root="2.16.840.1.243165.10.20.22.4.2" /> <id nullFlavor="NA" /> <code codeSystem="local" code="BILT" displayName="BILIFUBIN TOTAL" /> &lt ;statusCode code="completed" /> <effectiveTime value=& quot;210636148121" /> <value unit="" xsi:type=& quot;PQ" value="0.80" /> <referenceRange> <observationRange> <text>0.20-1.00</text> </observationRange> </referenceRange> </ observation> </component> <component> < observation moodCode="EVN" classCode="OBS"> < templateId root="2.16.840.1.983982.10.20.22.4.2" /> < id nullFlavor="NA" /> <code codeSystem="local&quot ; code="TP" displayName="TOTAL PROTEIN" /> < statusCode code="completed" /> <effectiveTime value=& quot;770069740178" /> <value unit="" xsi:type=& quot;PQ" value="7.6" /> <referenceRange> <observationRange> <text>6.4-8.2</text> </observationRange></referenceRange> </ observation> </component> <component> < observation moodCode="EVN" classCode="OBS"> < templateId root="2.16.840.1.379288.10.20.22.4.2" /> < id nullFlavor="NA" /> <code codeSystem="local&quot ; code="ALB" displayName="ALBUMIN" /> < statusCode code="completed" /> <effectiveTime value=& quot;568075645859" /> <value unit="" xsi:type=& quot;PQ" value="3.4" /> <referenceRange> <observationRange> <text>3.4-5.0</text> </observationRange> </referenceRange> </ observation> </component> <component> < observation moodCode="EVN" classCode="OBS"> < templateId root="2.16.840.1.305144.10.20.22.4.2" /> < id nullFlavor="NA" /> <code codeSystem="local&quot ; code="GLOB" displayName="*GLOBULIN" /> < statusCode code="completed" /> <effectiveTime value=& quot;168709629059" /> <value unit="" xsi:type=" PQ" value="4.2" /> <interpretationCode codeSystem= "local" code="*" /> <referenceRange> <observationRange> <text>2.3-3.5</text> </observationRange> </referenceRange> < /observation> </component> <component> < observation moodCode="EVN" classCode="OBS"> < templateId root="2.16.840.1.919933.10.20.22.4.2" /> < id nullFlavor="NA" /> <code codeSystem="local&quot ; code="AGR" displayName="*A/G RATIO" /> < statusCode code="completed" /> <effectiveTime value=" 484710324970" /> <value unit="" xsi:type="PQ& quot; value="0.8" /> <interpretationCode codeSystem=& quot;local" code="*" /> <referenceRange> <observationRange> <text>1.5-2.2</text> </observationRange> </referenceRange> </ observation> </component> <component> < observation moodCode="EVN" classCode="OBS"> < templateId root="2.16.840.1.261393.10..22.4.2" /> < id nullFlavor="NA" /> <code codeSystem="local&quot ; code="ALP" displayName="ALK PHOS" /> < statusCode code="completed" /> <effectiveTime value=& quot;334541608544" /> <value unit="U/L" xsi:type=& quot;PQ" value="99"/> <referenceRange> <observationRange> <text>46-116</text> </observationRange> </referenceRange> </ observation> </component> <component> < observation moodCode="EVN" classCode="OBS"> < templateId root="2.16.840.1.724716.10..22.4.2" /> < id nullFlavor="NA" /> <code codeSystem="local&quot ; code="ALT" displayName="ALT (SGPT)" /> < statusCode code="completed" /> <effectiveTime value=& quot;600798931767" /><value unit="U/L" xsi:type="PQ& quot; value="33" /> <referenceRange> < observationRange> <text>16-63</text> </ observationRange> </referenceRange> </observation&gt ; </component> <component> <observation moodCode ="EVN" classCode="OBS"> <templateId root=& quot;2.16.840.1.084017.10..22.4.2" /> <id nullFlavor=&quot ;NA" /> <code codeSystem="local" code="AST& quot; displayName="AST (SGOT)" /> <statusCode code=& quot;completed" /> <effectiveTime value="138394433760& quot; /> <value unit="U/L" xsi:type="PQ" value="17" /> <referenceRange> < observationRange> <text>15-37</text> < /observationRange> </referenceRange> </observation& gt; </component> </organizer> </entry> <entry&gt ; <organizer moodCode="EVN" classCode="BATTERY"> <templateId root="2.16.840.1.817155.10..22.4.1" /> & lt;idnullFlavor="NA" /> <code codeSystem="local" code="GFRE" displayName="GFR ESTIMATION" /> < statusCode code="completed" /> <component> < observation moodCode="EVN" classCode="OBS"> < templateId root="2.16.840.1.025893.10..22.4.2" /> < id nullFlavor="NA" /> <code codeSystem="local&quot ; code="GFRN" displayName="*GFR EST NON AFR CHILEAN" /> <statusCode code="completed" /> < effectiveTime value="894788966298" /> <value unit=&quot ;mL/min" xsi:type="PQ" value="62" /> < referenceRange> <observationRange> <text> NRG</text> </observationRange> </ referenceRange> </observation> </component> < component> <observation moodCode="EVN" classCode=" OBS"> <templateId root="2.16.840.1.285134.10.20.22.4.2& quot; /> <id nullFlavor="NA" /> <code codeSystem="local" code="GFRA" displayName="*GRFA EST AFR AMER" /> <statusCode code="completed" /> <effectiveTime value="530502770494" /> < value unit="mL/min" xsi:type="PQ" value="72" /&gt ; <referenceRange> <observationRange> <text>NRG</text> </observationRange> & lt;/referenceRange> </observation> </component> & lt;/organizer> </entry> <entry> <organizer moodCode=&quot ;EVN" classCode="BATTERY"> <templateId root=" 2.16.840.1.539561.10.20.22.4.1" /> <id nullFlavor="NA&quot ; /> <code codeSystem="local" code="LIP" displayName="LIPASE" /> <statusCode code="completed& quot; /> <component> <observation moodCode="EVN& quot; classCode="OBS"> <templateId root=" 2.16.840.1.283800.10.20.22.4.2" /> <id nullFlavor="NA& quot; /> <code codeSystem="local" code="LIP" displayName="LIPASE" /> <statusCode code="completed&quot ; /> <effectiveTime value="601234831310" /> <value unit="U/L" xsi:type="PQ" value="61" /& gt; <interpretationCode codeSystem="local" code="*& quot; /> <referenceRange> <observationRange> <text>73-393</text> </observationRange& gt; </referenceRange> </observation> </ component> </organizer> </entry> <entry> < organizer moodCode="EVN" classCode="BATTERY"> < templateId root="2.16.840.1.186720.10.20.22.4.1" /> <id nullFlavor="NA" /> <code codeSystem="local" code= "CXBLD" displayName="CULTURE BLOOD" /> < statusCode code="completed" /> <component> < observation moodCode="EVN" classCode="OBS"> < templateId root="2.16.840.1.066879.10.20.22.4.2" /> < id nullFlavor="NA" /> <code codeSystem="local&quot ; code="CXBLD" displayName="CULTURE BLOOD" /> & lt;statusCode code="completed" /> <effectiveTime value= "020759735915" /> <value unit="" xsi:type=& quot;PQ" value="No growth after 5 days of incubation." /> <referenceRange> <observationRange> & lt;text>NRG</text> </observationRange> </ referenceRange> </observation> </component> </ organizer> </entry> <entry> <organizer moodCode="EVN " classCode="BATTERY"> <templateId root=" 2.16.840.1.148176.10.20.22.4.1" /> <id nullFlavor="NA&quot ; /> <code codeSystem="local" code="CMP" displayName="COMPREHENSIVE METABOLIC PANEL" /> <statusCode code="completed" /> <component> <observation moodCode="EVN" classCode="OBS"> <templateId root="2.16.840.1.475426.10.20.22.4.2" /> <id nullFlavor ="NA" /> <code codeSystem="local" code=" BILT" displayName="BILIFUBIN TOTAL" /> <statusCode code= "completed" /> <effectiveTime value="554383642050& quot; /> <value unit="" xsi:type="PQ" value=& quot;0.80" /> <referenceRange> < observationRange> <text>0.20-1.00</text> </observationRange> </referenceRange> </ observation> </component> <component> < observation moodCode="EVN" classCode="OBS"> < templateId root="2.16.840.1.659749.10.20.22.4.2" /> < id nullFlavor="NA" /> <code codeSystem="local&quot ; code="TP" displayName="TOTAL PROTEIN" /> < statusCode code="completed" /> <effectiveTime value=& quot;744782907480" /> <value unit="" xsi:type="PQ& quot; value="7.6" /> <referenceRange> &lt ;observationRange> <text>6.4-8.2</text> </ observationRange> </referenceRange> </observation&gt ; </component> <component> <observation moodCode ="EVN" classCode="OBS"> <templateId root=& quot;2.16.840.1.808158.10.20.22.4.2" /> <id nullFlavor="NA&quot ; /> <code codeSystem="local" code="ALB" displayName="ALBUMIN" /> <statusCode code=" completed" /> <effectiveTime value="189261472087" /> <value unit="" xsi:type="PQ" value=" 3.4" /> <referenceRange> <observationRange& gt; <text>3.4-5.0</text> </ observationRange> </referenceRange> </observation&gt ; </component> <component> <observation moodCode ="EVN" classCode="OBS"> <templateId root=& quot;2.16.840.1.468025.10.20.22.4.2" /> <id nullFlavor=&quot ;NA" /> <code codeSystem="local" code="GLOB& quot; displayName="*GLOBULIN" /> <statusCode code=&quot ;completed" /> <effectiveTime value="174375204966&quot ; /> <value unit="" xsi:type="PQ"value=" 4.2" /> <interpretationCode codeSystem="local" code="*" /> <referenceRange> < observationRange> <text>2.3-3.5</text> & lt;/observationRange> </referenceRange> </observation> </component> <component> <observation moodCode= "EVN" classCode="OBS"> <templateId root=&quot ;2.16.840.1.769988.10.20.22.4.2" /> <id nullFlavor="NA& quot; /> <code codeSystem="local" code="AGR" displayName="*A/G RATIO" /> <statusCode code=" completed" /> <effectiveTime value="102972871655" /> <value unit="" xsi:type="PQ" value="0.8 " /> <interpretationCode codeSystem="local" code=& quot;*" /> <referenceRange> < observationRange> <text>1.5-2.2</text> & lt;/observationRange> </referenceRange> </ observation> </component> <component> < observation moodCode="EVN" classCode="OBS"> < templateId root="2.16.840.1.339354.10.20.22.4.2" /> < id nullFlavor="NA" /> <code codeSystem="local&quot ; code="ALP" displayName="ALK PHOS" /> < statusCode code="completed" /> <effectiveTime value=" 048887246307" /> <value unit="U/L" xsi:type=" PQ" value="99" /> <referenceRange> & lt;observationRange> <text>46-116</text> </observationRange> </referenceRange> </observation&gt ; </component> <component> <observation moodCode ="EVN" classCode="OBS"> <templateId root=& quot;2.16.840.1.373382.10.20.22.4.2" /> <id nullFlavor=&quot ;NA" /> <code codeSystem="local" code="ALT& quot; displayName="ALT (SGPT)" /> <statusCode code=& quot;completed" /> <effectiveTime value="936405769189& quot; /> <value unit="U/L" xsi:type="PQ" value="33" /> <referenceRange> < observationRange> <text>16-63</text> </ observationRange> </referenceRange> </observation&gt ; </component> <component> <observation moodCode ="EVN" classCode="OBS"> <templateId root=& quot;2.16.840.1.331119.10.20.22.4.2" /> <id nullFlavor=&quot ;NA" /> <code codeSystem="local" code="AST& quot; displayName="AST (SGOT)" /> <statusCode code=& quot;completed" /> <effectiveTime value="217755111191& quot;/> <value unit="U/L" xsi:type="PQ" value ="17" /> <referenceRange> <observationRange > <text>15-37</text> </ observationRange> </referenceRange> </observation&gt ; </component> </organizer> </entry> <entry> <organizer moodCode="EVN" classCode="BATTERY"> <templateId root="2.16.840.1.487237.10.20.22.4.1" /> < id nullFlavor="NA" /> <code codeSystem="local" code="GFRE" displayName="GFR ESTIMATION" /> < statusCode code="completed" /> <component> < observation moodCode="EVN" classCode="OBS"> < templateId root="2.16.840.1.309481.10.20.22.4.2" /> < id nullFlavor="NA" /> <code codeSystem="local&quot ; code="GFRN" displayName="*GFR EST NON AFR CHILEAN" /> <statusCode code="completed" /> < effectiveTime value="823598722191" /> <value unit=&quot ;mL/min" xsi:type="PQ" value="62" /> < referenceRange> <observationRange> <text> NRG</text> </observationRange> </ referenceRange> </observation> </component> < component> <observation moodCode="EVN" classCode=" OBS"> <templateId root="216.840.1.374839.10...4.2& quot; /> <id nullFlavor="NA" /> <code codeSystem="local" code="GFRA" displayName="*GRFA EST AFR AMER" /> <statusCode code="completed" /> <effectiveTime value="114283181085" /> < value unit="mL/min" xsi:type="PQ" value="72" /&gt ; <referenceRange> <observationRange> <text>NRG</text> </observationRange> & lt;/referenceRange> </observation> </component> & lt;/organizer> </entry> <entry> <organizer moodCode=&quot ;EVN" classCode="BATTERY"> <templateId root=" 2.16.840.1.386115.10..22.4.1" /> <id nullFlavor="NA&quot ; /> <code codeSystem="local" code="LIP" displayName="LIPASE" /> <statusCode code="completed& quot;/> <component> <observation moodCode="EVN&quot ; classCode="OBS"> <templateId root=" 2.16.840.1.833593.10.20.22.4.2" /> <id nullFlavor="NA& quot; /> <code codeSystem="local" code="LIP" displayName="LIPASE" /> <statusCode code=" completed" /><effectiveTime value="380167946781" /> <value unit="U/L" xsi:type="PQ" value="61&quot ; /> <interpretationCode codeSystem="local" code=" *" /> <referenceRange> <observationRange&gt ; <text>73-393</text> </observationRange> </referenceRange> </observation> </ component> </organizer> </entry> <entry> < organizer moodCode="EVN" classCode="BATTERY"> < templateId root="2.16.840.1.951306.10.20.22.4.1" /> <id nullFlavor="NA" /> <code codeSystem="local" code= "CXBLD" displayName="CULTURE BLOOD" /> < statusCode code="completed" /> <component> < observation moodCode="EVN" classCode="OBS"> < templateId root="2.16.840.1.782139.10.20.22.4.2" /> < id nullFlavor="NA" /> <code codeSystem="local" code=& quot;CXBLD" displayName="CULTURE BLOOD"/> < statusCode code="completed" /> <effectiveTime value=& quot;014709201037" /> <value unit="" xsi:type=& quot;PQ" value="No growth after 5 days of incubation." /> <referenceRange> <observationRange> & lt;text>NRG</text> </observationRange> </ referenceRange> </observation> </component> </ organizer></entry> <entry> <organizer moodCode="EVN& quot; classCode="BATTERY"> <templateId root=" 2.16.840.1.452286.10.20.22.4.1" /> <id nullFlavor="NA&quot ; /> <code codeSystem="local" code="CBC" displayName="CBC WITH PLATELET AND DIFFERENTIAL" /> < statusCode code="completed" /> <component> < observation moodCode="EVN" classCode="OBS"> < templateId root="2.16.840.1.908440.10.20.22.4.2" /> < id nullFlavor="NA" /> <code codeSystem="local&quot ; code="SEGR" displayName="SEGS" /> < statusCode code="completed" /> <effectiveTime value=& quot;263132859740" /> <value unit="%" xsi: type="PQ" value="69.0" /> <referenceRange&gt ; <observationRange> <text>NRG</text> </observationRange> </referenceRange> </ observation> </component> <component> < observation moodCode="EVN" classCode="OBS"> < templateId root="2.16.840.1.746473.10.20.22.4.2" /> < id nullFlavor="NA" /> <code codeSystem="local&quot ; code="BASOR" displayName="*BASOPHILS" /> < statusCode code="completed" /> <effectiveTime value=& quot;237300730546" /> <value unit="%" xsi: type="PQ" value="0.6" /> <referenceRange> <observationRange> <text>NRG</text> </observationRange> </referenceRange> </ observation> </component> <component> < observation moodCode="EVN" classCode="OBS"> < templateId root="2.16.840.1.081729.10.20.22.4.2" /> < id nullFlavor="NA" /> <code codeSystem="local&quot ; code="EOSR" displayName="*EOSINOPHILS" /> < statusCode code="completed" /> <effectiveTime value=& quot;081502131756" /> <value unit="%" xsi: type="PQ" value="5.7" /> <referenceRange> <observationRange> <text>NRG</text> </observationRange> </referenceRange> &lt ;/observation> </component> <component> < observation moodCode="EVN" classCode="OBS"> < templateId root="2.16.840.1.174398.10.20.22.4.2" /> < id nullFlavor="NA" /> <code codeSystem="local&quot ; code="ADIFP" displayName="AUTOMATED DIFF" /> & lt;statusCode code="completed" /> <effectiveTime value= "374156199008" /> <value unit="" xsi:type=&quot ;PQ" value="PERFORMED" /> <referenceRange> & lt;observationRange> <text>NRG</text> &lt ;/observationRange> </referenceRange> </observation& gt; </component> <component> <observation moodCode ="EVN" classCode="OBS"> <templateId root=& quot;2.16.840.1.906175.10.20.22.4.2" /> <id nullFlavor=" NA" /> <code codeSystem="local" code="LYMPR& quot; displayName="*LYMPHOCYTES" /> <statusCode code=& quot;completed" /> <effectiveTime value="542459342845& quot; /> <value unit="%" xsi:type="PQ&quot ; value="17.1" /> <referenceRange> < observationRange> <text>NRG</text> </ observationRange> </referenceRange> </observation&gt ; </component> <component> <observation moodCode ="EVN" classCode="OBS"> <templateId root=& quot;2.16.840.1.570903.10.20.22.4.2" /> <idnullFlavor=" NA" /> <code codeSystem="local" code="MONOR& quot; displayName="*MONOCYTES" /> <statusCode code=& quot;completed" /> <effectiveTime value="932100415808&quot ; /> <value unit="%" xsi:type="PQ" value="7.6" /> <referenceRange> <observationRange > <text>NRG</text> </observationRange& gt; </referenceRange> </observation> </ component> <component> <observation moodCode="EVN& quot; classCode="OBS"> <templateId root=" 2.16.840.1.797418.10.20.22.4.2" /> <id nullFlavor="NA& quot; /> <code codeSystem="local" code="ABACT&quot ; displayName="*ABSOLUTE BASOPHILS" /> <statusCode code ="completed" /> <effectiveTime value="150150946077 " /> <value unit="10*3/uL" xsi:type="PQ&quot ; value="0.10" /> <referenceRange> < observationRange> <text>0.00-0.20</text> </observationRange> </referenceRange> </observation > </component> <component> <observation moodCode="EVN" classCode="OBS"> <templateId root="2.16.840.1.695329.10.20.22.4.2" /> <id nullFlavor ="NA" /> <code codeSystem="local" code=" AEOCT" displayName="*ABSOLUTE EOSINOPHILS" /> < statusCode code="completed" /> <effectiveTime value=& quot;469345140661" /> <value unit="10*3/uL" xsi: type="PQ" value="0.80" /> < interpretationCode codeSystem="local" code="*" /> <referenceRange> <observationRange> <text& gt;0.00-0.50</text> </observationRange> </ referenceRange> </observation> </component> < component> <observation moodCode="EVN" classCode=" OBS"> <templateId root="2.16.840.1.633696.10.20.22.4.2& quot; /> <id nullFlavor="NA" /> <code codeSystem="local" code="ALYCT" displayName="*ABSOLUTE LYMPHOCYTES" /> <statusCode code="completed" /&gt ; <effectiveTime value="394691796676" /> < value unit="10*3/uL" xsi:type="PQ" value="2.50" /& gt; <referenceRange> <observationRange> & lt;text>1.00-3.00</text> </observationRange> </referenceRange> </observation> </component> <component> <observation moodCode="EVN" classCode=& quot;OBS"> <templateId root=" 2.16.840.1.381571.10.20.22.4.2" /> <id nullFlavor="NA& quot; /> <code codeSystem="local" code="AMOCT&quot ; displayName="*ABSOLUTE MONOCYTES"/> <statusCode code= "completed" /> <effectiveTime value="429086821536& quot; /> <value unit="10*3/uL" xsi:type="PQ" value="1.10" /> <interpretationCode codeSystem=" local" code="*" /> <referenceRange> <observationRange> <text>0.30-1.00</text> </observationRange> </referenceRange> </ observation> </component> <component> < observation moodCode="EVN" classCode="OBS"> < templateId root="2.16.840.1.092555.10.20.22.4.2" /> < id nullFlavor="NA" /> <code codeSystem="local&quot ; code="ANECT" displayName="*ABSOLUTE NEUTROPHILS" /> <statusCode code="completed" /> < effectiveTime value="521540109844" /> <value unit=&quot ;10*3/uL" xsi:type="PQ" value="10.00" /> & lt;interpretationCode codeSystem="local" code="*" /> <referenceRange> <observationRange> & lt;text>1.80-7.80</text> </observationRange> </referenceRange> </observation> </component> <component> <observation moodCode="EVN" classCode=& quot;OBS"> <templateId root=" 2.16.840.1.328566.10.20.22.4.2" /> <id nullFlavor="NA& quot; /> <code codeSystem="local" code="MPV" displayName="MPV" /> <statusCode code="completed& quot; /> <effectiveTime value="931941194754" /> <value unit="fL" xsi:type="PQ" value="7.3&quot ; /> <interpretationCode codeSystem="local" code=" *" /> <referenceRange> <observationRange&gt ; <text>7.4-10.4</text> </ observationRange> </referenceRange> </observation> </component> <component> <observation moodCode=& quot;EVN" classCode="OBS"> <templateId root=" 2.16.840.1.255239.10.20.22.4.2" /> <id nullFlavor="NA& quot;/> <code codeSystem="local" code="PLT" displayName="PLATELETS" /> <statusCode code=" completed" /> <effectiveTime value="473393133978" /> <value unit="10*3/uL" xsi:type="PQ"value=& quot;307" /> <referenceRange> < observationRange> <text>159-386</text> </ observationRange> </referenceRange> </observation&gt ; </component> <component> <observation moodCode ="EVN" classCode="OBS"> <templateId root=& quot;2.16.840.1.673695.10.20.22.4.2" /> <id nullFlavor=&quot ;NA" /> <code codeSystem="local" code="WBCIR& quot; displayName="WBC" /> <statusCode code=" completed" /> <effectiveTime value="937583195970" /> <value unit="10*3/uL" xsi:type="PQ" value= "14.4" /> <interpretationCode codeSystem="local& quot; code="*" /> <referenceRange> < observationRange> <text>3.6-11.2</text> & lt;/observationRange> </referenceRange> </ observation> </component> <component> < observation moodCode="EVN" classCode="OBS"> < templateId root="2.16.840.1.313509.10.20.22.4.2" /> < id nullFlavor="NA" /> <code codeSystem="local&quot ; code="RBC" displayName="RBC" /> < statusCode code="completed" /> <effectiveTime value=& quot;643895242948" /> <value unit="" xsi:type=& quot;PQ" value="4.43" /> <referenceRange> < observationRange> <text>3.63-4.92</text> </observationRange> </referenceRange> </ observation> </component><component> <observation moodCode="EVN" classCode="OBS"> <templateId root=& quot;2.16.840.1.363747.10..22.4.2" /> <id nullFlavor=&quot ;NA" /> <code codeSystem="local" code="HGB& quot; displayName="HEMOGLOBIN" /> <statusCode code=& quot;completed" /> <effectiveTime value="214176871625& quot; /> <value unit="" xsi:type="PQ" value=& quot;11.9" /> <referenceRange> < observationRange> <text>11.0-14.3</text> </observationRange> </referenceRange> </ observation> </component> <component> <observation moodCode="EVN" classCode="OBS"> <templateId root="2.16.840.1.877175.10..22.4.2" /> <id nullFlavor ="NA" /> <code codeSystem="local" code="HCT& quot; displayName="HEMATOCRIT" /> <statusCode code=& quot;completed" /> <effectiveTime value="082319733674& quot; /> <value unit="%" xsi:type="PQ&quot ; value="35.3" /> <referenceRange> < observationRange> <text>31.2-41.9</text> </ observationRange> </referenceRange> </observation&gt ; </component> <component> <observation moodCode ="EVN" classCode="OBS"> <templateId root=& quot;2.16.840.1.878769.10.20.22.4.2" /> <id nullFlavor=&quot ;NA" /> <code codeSystem="local" code="MCV& quot; displayName="MCV" /> <statusCode code=" completed" /> <effectiveTime value="289875703406" /> <value unit="fL" xsi:type="PQ" value=&quot ;79.7" /> <referenceRange> <observationRange> <text>79.0-98.0</text> </ observationRange> </referenceRange> </observation&gt ; </component> <component> <observation moodCode ="EVN" classCode="OBS"> <templateId root=& quot;2.16.840.1.692780.10.20.22.4.2" /> <id nullFlavor=&quot ;NA" /> <code codeSystem="local" code="MCH& quot; displayName="MCH" /> <statusCode code=" completed" /> <effectiveTime value="[id number]" /> <value unit="pg" xsi:type="PQ" value=&quot ;26.9" /> <interpretationCode codeSystem="local" code="*" /> <referenceRange> < observationRange> <text>27.0-33.0</text> </observationRange> </referenceRange> </ observation> </component> <component> < observation moodCode="EVN" classCode="OBS"> < templateId root="[id number]" /> < id nullFlavor="NA" /> <code codeSystem="local&quot ; code="MCHC" displayName="MCHC" /> < statusCode code="completed" /> <effectiveTime value=& quot;394686728253" /> <value unit="" xsi:type=& quot;PQ" value="33.7" /> <referenceRange> <observationRange> <text>32.0-36.0</text> </observationRange> </referenceRange> </ observation> </component> <component> < observation moodCode="EVN" classCode="OBS"> < templateId root="2.16.840.1.860770.10.20.22.4.2" /> < id nullFlavor="NA" /> <code codeSystem="local&quot ; code="RDW" displayName="RDW" /> < statusCode code="completed" /> <effectiveTime value=& quot;666932946579"/> <value unit="%" xsi: type="PQ" value="13.8" /> <referenceRange&gt ; <observationRange> <text>12.3-17.0</ text> </observationRange> </referenceRange> </observation> </component> <component> <observation moodCode="EVN" classCode="OBS"> <templateId root="2.16.840.1.471779.10.20.22.4.2" /> <id nullFlavor="NA" /> <code codeSystem=" local" code="RDWSD" displayName="RDWSD" /> <statusCode code="completed" /> <effectiveTime value ="486256950905" /> <value unit="" xsi:type=& quot;PQ" value="39.4" /> <referenceRange> <observationRange> <text>37.1-47.8</text> </observationRange> </referenceRange> </ observation> </component> </organizer> </entry> & lt;entry> <organizer moodCode="EVN" classCode="BATTERY& quot;> <templateId root="2.16.840.1.795735.10.20.22.4.1" /& gt; <id nullFlavor="NA" /> <code codeSystem=" local" code="CMP" displayName="COMPREHENSIVE METABOLIC PANEL " /> <statusCode code="completed" /> < component> <observation moodCode="EVN" classCode=" OBS"> <templateId root="2.16.840.1.937403.10.20.22.4.2& quot; /> <id nullFlavor="NA" /> <code codeSystem="local" code="NA" displayName="SODIUM" /> <statusCode code="completed" /> < effectiveTime value="404335280198" /> <valueunit=" mmol/L" xsi:type="PQ" value="140" /> < referenceRange> <observationRange> <text> 136-145</text> </observationRange> </ referenceRange> </observation> </component> < component> <observation moodCode="EVN" classCode=" OBS"> <templateId root="2.16.840.1.287773.10.20.22.4.2& quot; /> <id nullFlavor="NA" /> <code codeSystem="local" code="K" displayName="POTASSIUM&quot ; /> <statusCode code="completed" /> < effectiveTime value="417976481440" /> <value unit=&quot ;mmol/L" xsi:type="PQ" value="3.7" /> < referenceRange> <observationRange> <text> 3.5-5.1</text> </observationRange> </ referenceRange> </observation> </component> < component> <observation moodCode="EVN" classCode=" OBS"> <templateId root="2.16.840.1.528059.10..22.4.2& quot; /> <id nullFlavor="NA" /> <code codeSystem="local" code="CL" displayName="CHLORIDE&quot ; /> <statusCode code="completed" /> < effectiveTime value="632355840029" /> <value unit=&quot ;mmol/L" xsi:type="PQ" value="104" /> < referenceRange> <observationRange> <text>98- 107</text> </observationRange> </ referenceRange> </observation> </component> < component> <observation moodCode="EVN" classCode=" OBS"> <templateId root="2.16.840.1.704405.10.20.22.4.2& quot; /> <id nullFlavor="NA" /> <code codeSystem="local" code="TCO2" displayName="TCO2" /> <statusCode code="completed" /> < effectiveTime value="786741771189" /> <value unit=&quot ;mmol/L" xsi:type="PQ" value="28.6" /> < referenceRange> <observationRange> <text> 21.0-32.0</text> </observationRange> </ referenceRange> </observation> </component> < component> <observation moodCode="EVN" classCode=" OBS"> <templateId root="2.16.840.1.385585.10.20.22.4.2& quot; /> <id nullFlavor="NA" /> <code codeSystem="local" code="AGAP" displayName="*ANION GAP& quot; /> <statusCode code="completed" /> & lt;effectiveTime value="241350628375" /> <value unit=" mmol/L" xsi:type="PQ" value="7.4" /> < interpretationCode codeSystem="local" code="*" /> <referenceRange> <observationRange> < text>8.0-16.0</text> </observationRange> < /referenceRange> </observation> </component> &lt ;component> <observation moodCode="EVN" classCode=" OBS"> <templateId root="2.16.840.1.651373.10.20.22.4.2& quot; /> <id nullFlavor="NA" /> <code codeSystem="local" code="BUN"displayName="BUN" /& gt; <statusCode code="completed" /> < effectiveTime value="681455331041" /> <value unit=&quot ;" xsi:type="PQ" value="11" /> < referenceRange> <observationRange> <text> 7-18</text> </observationRange> </ referenceRange> </observation> </component> < component> <observation moodCode="EVN" classCode="OBS" > <templateId root="2.16.840.1.752601.10.20.22.4.2" /& gt; <id nullFlavor="NA" /> <code codeSystem=& quot;local" code="CREA" displayName="CREATININE" /> <statusCode code="completed" /> < effectiveTime value="991924189615" /> <value unit=&quot ;" xsi:type="PQ" value="1.29" /> < interpretationCode codeSystem="local" code="*" /> <referenceRange> <observationRange> <text >0.55-1.02</text> </observationRange> </ referenceRange> </observation> </component> < component> <observation moodCode="EVN" classCode=" OBS"> <templateId root="2.16.840.1.298807.10.20.22.4.2& quot; /> <id nullFlavor="NA" /> <code codeSystem="local" code="B/C" displayName="*BUN/ CREATININE RATIO" /> <statusCode code="completed" /> <effectiveTime value="299114866619" /> < value unit="" xsi:type="PQ" value="8.5" /> <interpretationCode codeSystem="local" code="*" /& gt; <referenceRange> <observationRange> <text>9.1-17.0</text> </observationRange> </referenceRange> </observation> </component& gt; <component> <observation moodCode="EVN" classCode="OBS"> <templateId root=" 2.16.840.1.696911.10.20.22.4.2" /> <id nullFlavor="NA& quot; /> <code codeSystem="local" code="GLU" displayName="GLUCOSE" /> <statusCode code=" completed" /> <effectiveTime value="699605839695" /> <value unit="" xsi:type="PQ" value="96" /> <referenceRange> <observationRange> <text>65-99</text> </observationRange> </referenceRange> </observation> </component&gt ; <component> <observation moodCode="EVN" classCode=& quot;OBS"> <templateId root=" 2.16.840.1.929590.10.20.22.4.2" /> <id nullFlavor="NA& quot; /> <code codeSystem="local" code="CA" displayName="CALCIUM" /> <statusCode code=" completed" /> <effectiveTime value="607400209565" /> <value unit="" xsi:type="PQ" value=" 8.5" /> <referenceRange> <observationRange& gt; <text>8.5-10.1</text> </ observationRange> </referenceRange> </observation> </component> <component> <observation moodCode=" EVN" classCode="OBS"> <templateId root=" 2.16.840.1.783590.10.20.22.4.2" /> <id nullFlavor="NA& quot; /> <code codeSystem="local" code="BILT&quot ; displayName="BILIFUBIN TOTAL" /> <statusCode code=& quot;completed" /> <effectiveTime value="027681805817& quot; /> <value unit="" xsi:type="PQ" value=& quot;0.80" /> <referenceRange> <observationRange&gt ; <text>0.20-1.00</text> </ observationRange> </referenceRange> </observation&gt ; </component> <component> <observation moodCode ="EVN" classCode="OBS"> <templateId root=& quot;2.16.840.1.357774.10.20.22.4.2"/> <id nullFlavor=" NA" /> <code codeSystem="local"code="TP&quot ; displayName="TOTAL PROTEIN" /> <statusCode code=&quot ;completed" /> <effectiveTime value="525063204246&quot ; /> <value unit="" xsi:type="PQ" value=&quot ;6.5" /> <referenceRange> <observationRange > <text>6.4-8.2</text> </ observationRange> </referenceRange> </observation&gt ; </component> <component> <observation moodCode ="EVN" classCode="OBS"> <templateId root=& quot;2.16.840.1.490541.10.20.22.4.2" /> <id nullFlavor=&quot ;NA" /> <code codeSystem="local" code="ALB& quot; displayName="ALBUMIN" /> <statusCode code=" completed" /><effectiveTime value="113013775739" /> <value unit="" xsi:type="PQ" value="2.9" /> <interpretationCode codeSystem="local" code="*& quot; /> <referenceRange> <observationRange> <text>3.4-5.0</text> </observationRange> </referenceRange> </observation> </component& gt; <component> <observation moodCode="EVN" classCode="OBS"> <templateId root=" 2.16.840.1.924939.10.20.22.4.2" /> <id nullFlavor="NA& quot; /> <code codeSystem="local" code="GLOB&quot ; displayName="*GLOBULIN" /> <statusCode code="completed& quot; /> <effectiveTime value="749261182221" /> <value unit="" xsi:type="PQ" value="3.6" /> <interpretationCode codeSystem="local" code="*& quot; /> <referenceRange> <observationRange> <text>2.3-3.5</text> </observationRange& gt; </referenceRange> </observation> </component > <component> <observation moodCode="EVN" classCode="OBS"> <templateId root=" 2.16.840.1.271015.10.20.22.4.2" /> <id nullFlavor="NA&quot ; /> <code codeSystem="local" code="AGR" displayName="*A/G RATIO" /> <statusCode code=" completed" /> <effectiveTime value="085197744915" /> <value unit="" xsi:type="PQ" value=" 0.8" /> <interpretationCode codeSystem="local" code="*" /> <referenceRange> < observationRange> <text>1.5-2.2</text> & lt;/observationRange> </referenceRange> </observation&gt ; </component> <component> <observation moodCode ="EVN" classCode="OBS"> <templateId root=& quot;2.16.840.1.200771.10.20.22.4.2" /> <id nullFlavor=&quot ;NA" /> <code codeSystem="local" code="ALP& quot; displayName="ALK PHOS" /> <statusCode code=" completed" /> <effectiveTime value="649241840242" /> <value unit="U/L" xsi:type="PQ" value=& quot;88" /> <referenceRange> < observationRange> <text>46-116</text> </ observationRange> </referenceRange> </observation&gt ; </component> <component> <observation moodCode ="EVN" classCode="OBS"> <templateId root=& quot;2.16.840.1.537622.10.20.22.4.2" /> <id nullFlavor=&quot ;NA" /> <code codeSystem="local" code="ALT& quot; displayName="ALT (SGPT)" /> <statusCode code=& quot;completed" /> <effectiveTime value="974344495556& quot;/> <value unit="U/L" xsi:type="PQ" value ="26" /> <referenceRange> <observationRange > <text>16-63</text> </ observationRange> </referenceRange> </observation&gt ; </component> <component> <observation moodCode ="EVN" classCode="OBS"> <templateId root=& quot;2.16.840.1.440713.10.20.22.4.2" /> <id nullFlavor=&quot ;NA" /> <code codeSystem="local" code="AST& quot; displayName="AST (SGOT)" /> <statusCode code=& quot;completed" /> <effectiveTime value="200540670491& quot; /> <value unit="U/L" xsi:type="PQ" value="13" /> <interpretationCode codeSystem=" local" code="*" /> <referenceRange> <observationRange> <text>15-37</text> </observationRange> </referenceRange> </ observation> </component> </organizer> </entry> & lt;entry> <organizer moodCode="EVN" classCode="BATTERY& quot;> <templateId root="2.16.840.1.853695.10.20.22.4.1" /& gt; <idnullFlavor="NA" /> <code codeSystem=" local" code="CBC" displayName="CBC WITH PLATELET AND DIFFERENTIAL" /> <statusCode code="completed" /> <component> <observation moodCode="EVN" classCode= "OBS"> <templateId root=" 2.16.840.1.666597.10.20.22.4.2" /> <id nullFlavor="NA& quot; /> <code codeSystem="local" code="SEGR&quot ; displayName="SEGS" /> <statusCode code=" completed" /> <effectiveTime value="382088924506" /&gt ; <value unit="%" xsi:type="PQ" value=& quot;69.0" /> <referenceRange><observationRange> <text>NRG</text> </observationRange> </referenceRange> </observation> </component& gt; <component> <observation moodCode="EVN" classCode="OBS"> <templateId root=" 2.16.840.1.342971.10..22.4.2" /> <id nullFlavor="NA& quot; /> <code codeSystem="local" code="BASOR&quot ; displayName="*BASOPHILS" /> <statusCode code=" completed" /> <effectiveTime value="013316877977" /> <value unit="%" xsi:type="PQ" value="0.6" /> <referenceRange> < observationRange> <text>NRG</text> </ observationRange> </referenceRange> </observation&gt ; </component> <component> <observation moodCode ="EVN" classCode="OBS"> <templateId root=& quot;2.16.840.1.634853.10.20.22.4.2" /> <id nullFlavor=&quot ;NA" /> <code codeSystem="local" code="EOSR" displayName="*EOSINOPHILS" /> <statusCode code=" completed" /> <effectiveTime value="695528084313" /> <value unit="%" xsi:type="PQ" value="5.7" /> <referenceRange> < observationRange> <text>NRG</text> </ observationRange> </referenceRange> </observation> </component> <component> <observation moodCode= "EVN" classCode="OBS"> <templateId root=&quot ;2.16.840.1.973020.10.20.22.4.2" /> <id nullFlavor="NA& quot; /> <code codeSystem="local" code="ADIFP&quot ; displayName="AUTOMATED DIFF" /> <statusCode code=& quot;completed" /> <effectiveTime value="359307620771& quot; /> <value unit="" xsi:type="PQ" value=& quot;PERFORMED" /> <referenceRange> < observationRange> <text>NRG</text> </ observationRange> </referenceRange> </observation&gt ; </component> <component> <observation moodCode ="EVN" classCode="OBS"> <templateId root=& quot;2.16.840.1.940259.10.20.22.4.2" /> <id nullFlavor=&quot ;NA" /> <code codeSystem="local" code="LYMPR& quot; displayName="*LYMPHOCYTES" /> <statusCode code=& quot;completed" /> <effectiveTime value="038280633367& quot; /> <value unit="%" xsi:type="PQ&quot ; value="17.1" /> <referenceRange> < observationRange> <text>NRG</text> </ observationRange> </referenceRange> </observation&gt ; </component> <component> <observation moodCode ="EVN" classCode="OBS"> <templateId root=& quot;2.16.840.1.676203.10..22.4.2" /> <id nullFlavor="NA& quot; /> <code codeSystem="local" code="MONOR&quot ; displayName="*MONOCYTES" /> <statusCode code=" completed" /> <effectiveTime value="413111342988" /> <value unit="%" xsi:type="PQ" value="7.6" /> <referenceRange> < observationRange> <text>NRG</text> </ observationRange> </referenceRange> </observation&gt ; </component> <component> <observation moodCode=& quot;EVN" classCode="OBS"> <templateId root=" 2.16.840.1.009756.10.20.22.4.2" /> <id nullFlavor="NA& quot; /> <code codeSystem="local" code="ABACT&quot ; displayName="*ABSOLUTE BASOPHILS" /> <statusCode code ="completed" /> <effectiveTime value="655584567867& quot; /> <value unit="10*3/uL" xsi:type="PQ" value="0.10" /> <referenceRange><observationRange > <text>0.00-0.20</text> </ observationRange> </referenceRange> </observation&gt ; </component> <component> <observation moodCode ="EVN" classCode="OBS"> <templateId root=" 2.16.840.1.857388.10.20.22.4.2" /> <id nullFlavor="NA& quot; /> <code codeSystem="local" code="AEOCT&quot ; displayName="*ABSOLUTE EOSINOPHILS" /> <statusCode code="completed" /> <effectiveTime value="198168725378& quot; /> <value unit="10*3/uL" xsi:type="PQ" value="0.80" /> <interpretationCode codeSystem=" local" code="*" /> <referenceRange> <observationRange> <text>0.00-0.50</text> </observationRange></referenceRange> </observation&gt ; </component> <component> <observation moodCode=& quot;EVN" classCode="OBS"> <templateId root=" 2.16.840.1.750735.10.20.22.4.2" /> <id nullFlavor="NA& quot; /> <code codeSystem="local" code="ALYCT&quot ; displayName="*ABSOLUTE LYMPHOCYTES" /> <statusCode code="completed" /> <effectiveTime value=" 359123132760" /> <value unit="10*3/uL" xsi:type=& quot;PQ" value="2.50" /> <referenceRange> <observationRange> <text>1.00-3.00</text> </observationRange> </referenceRange> & lt;/observation> </component> <component> < observation moodCode="EVN" classCode="OBS"> < templateId root="2.16.840.1.110571.10.20.22.4.2" /> < id nullFlavor="NA" /> <code codeSystem="local" code="AMOCT" displayName="*ABSOLUTE MONOCYTES" /> <statusCode code="completed" /> <effectiveTime value="670033665091" /> <value unit="10*3/uL&quot ; xsi:type="PQ" value="1.10" /> < interpretationCode codeSystem="local" code="*" /> <referenceRange> <observationRange> < text>0.30-1.00</text> </observationRange> &lt ;/referenceRange> </observation> </component> & lt;component> <observation moodCode="EVN" classCode=&quot ;OBS"> <templateId root="2.16.840.1.162324.10.20.22.4.2 " /> <id nullFlavor="NA" /> <code codeSystem="local" code="ANECT" displayName="*ABSOLUTE NEUTROPHILS" /> <statusCode code="completed" /> <effectiveTime value="694068914456" /> < value unit="10*3/uL" xsi:type="PQ" value="10.00" / > <interpretationCode codeSystem="local" code="*& quot; /> <referenceRange> <observationRange> <text>1.80-7.80</text> </observationRange > </referenceRange> </observation> </ component> <component> <observation moodCode="EVN& quot; classCode="OBS"> <templateId root=" 2.16.840.1.706005.10..22.4.2" /> <id nullFlavor="NA& quot; /> <code codeSystem="local" code="MPV" displayName="MPV" /> <statusCode code="completed& quot; /> <effectiveTime value="329413890505" /> <valueunit="fL" xsi:type="PQ" value="7.3&quot ; /> <interpretationCode codeSystem="local" code=" *" /> <referenceRange> <observationRange&gt ; <text>7.4-10.4</text> </ observationRange> </referenceRange> </observation&gt ; </component> <component> <observation moodCode ="EVN" classCode="OBS"><templateId root=" 2.16.840.1.602380.10.20.22.4.2" /> <id nullFlavor="NA& quot; /> <code codeSystem="local" code="PLT" displayName="PLATELETS" /> <statusCode code=" completed" /> <effectiveTime value="385251212831" /> <value unit="10*3/uL" xsi:type="PQ" value= "307" /> <referenceRange> < observationRange> <text>159-386</text> & lt;/observationRange> </referenceRange> </ observation> </component> <component> <observation moodCode="EVN" classCode="OBS"> <templateId root="2.16.840.1.721348.10.20.22.4.2" /> <id nullFlavor ="NA" /> <code codeSystem="local" code="WBCIR " displayName="WBC" /> <statusCode code=" completed" /> <effectiveTime value="124192416277" /> <value unit="10*3/uL" xsi:type="PQ" value= "14.4" /> <interpretationCode codeSystem="local& quot; code="*" /> <referenceRange> < observationRange> <text>3.6-11.2</text> & lt;/observationRange> </referenceRange> </ observation> </component> <component> < observation moodCode="EVN" classCode="OBS"> < templateId root="2.16.840.1.376833.10..22.4.2" /> < id nullFlavor="NA" /> <code codeSystem="local&quot ; code="RBC" displayName="RBC" /> < statusCode code="completed" /> <effectiveTime value=& quot;732100348128" /> <value unit="" xsi:type=& quot;PQ" value="4.43" /> <referenceRange> <observationRange> <text>3.63-4.92</text> </observationRange> </referenceRange> & lt;/observation> </component> <component> < observation moodCode="EVN" classCode="OBS"> < templateId root="2.16.840.1.570196.10.20.22.4.2" /> < id nullFlavor="NA" /> <code codeSystem="local&quot ; code="HGB" displayName="HEMOGLOBIN" /> < statusCode code="completed" /> <effectiveTime value=" 708875221195" /> <value unit="" xsi:type="PQ& quot; value="11.9" /> <referenceRange> & lt;observationRange> <text>11.0-14.3</text> </observationRange> </referenceRange> </ observation> </component> <component> < observation moodCode="EVN" classCode="OBS"> < templateId root="2.16.840.1.979030.10.20.22.4.2" /> < id nullFlavor="NA" /> <code codeSystem="local&quot ; code="HCT" displayName="HEMATOCRIT" /> < statusCode code="completed" /> <effectiveTime value=& quot;385112200715" /> <value unit="%" xsi: type="PQ" value="35.3" /> <referenceRange&gt ; <observationRange> <text>31.2-41.9</text > </observationRange> </referenceRange> </observation> </component> <component> & lt;observation moodCode="EVN" classCode="OBS"> & lt;templateId root="2.16.840.1.249755.10.20.22.4.2" /> &lt ;id nullFlavor="NA" /> <code codeSystem="local" code= "MCV" displayName="MCV" /> <statusCode code=" completed" /> <effectiveTime value="636551780403" /> <value unit="fL" xsi:type="PQ" value=&quot ;79.7" /> <referenceRange> < observationRange> <text>79.0-98.0</text> </observationRange> </referenceRange> </ observation> </component> <component> < observation moodCode="EVN" classCode="OBS"> < templateId root="2.16.840.1.716927.10.20.22.4.2" /> < id nullFlavor="NA" /> <code codeSystem="local&quot ; code="MCH" displayName="MCH" /> < statusCode code="completed" /> <effectiveTime value=& quot;542125280155" /> <value unit="pg" xsi:type=& quot;PQ" value="26.9" /> <interpretationCode codeSystem="local" code="*" /> < referenceRange> <observationRange> <text>27.0- 33.0</text> </observationRange> </ referenceRange> </observation> </component> < component> <observation moodCode="EVN" classCode=" OBS"> <templateId root="2.16.840.1.065041.10.20.22.4.2& quot; /> <id nullFlavor="NA" /> <code codeSystem="local" code="MCHC" displayName="MCHC" /> <statusCode code="completed" /> < effectiveTime value="925172683807" /> <value unit=&quot ;" xsi:type="PQ" value="33.7" /> < referenceRange> <observationRange> <text> 32.0-36.0</text> </observationRange> </ referenceRange> </observation> </component> < component><observation moodCode="EVN" classCode="OBS"& gt; <templateId root="2.16.840.1.882761.10.20.22.4.2" /&gt ; <id nullFlavor="NA" /> <code codeSystem=" local" code="RDW" displayName="RDW" /> < statusCode code="completed" /> <effectiveTime value=& quot;578346016225" /> <value unit="%" xsi: type="PQ" value="13.8" /> <referenceRange&gt ; <observationRange> <text>12.3-17.0</ text> </observationRange> </referenceRange> </observation> </component> <component> & lt;observation moodCode="EVN" classCode="OBS"> & lt;templateId root="2.16.840.1.009833.10.20.22.4.2" /> &lt ;id nullFlavor="NA" /> <code codeSystem="local& quot; code="RDWSD" displayName="RDWSD" /> < statusCode code="completed" /> <effectiveTime value=& quot;577400624454" /> <value unit="" xsi:type=" PQ" value="39.4" /> <referenceRange> <observationRange> <text>37.1-47.8</text> </observationRange> </referenceRange> </ observation> </component> </organizer> </entry> & lt;entry> <organizer moodCode="EVN" classCode="BATTERY& quot;> <templateId root="2.16.840.1.483579.10.20.22.4.1" /& gt; <id nullFlavor="NA" /> <code codeSystem=" local" code="CMP" displayName="COMPREHENSIVE METABOLIC PANEL " /> <statusCode code="completed" /> < component> <observation moodCode="EVN" classCode=" OBS"> <templateId root="2.16.840.1.441252.10.20.22.4.2& quot; /> <id nullFlavor="NA" /> <code codeSystem="local" code="NA" displayName="SODIUM" /> <statusCode code="completed" /> < effectiveTime value="774128668988" /><value unit="mmol/L& quot; xsi:type="PQ" value="140" /> < referenceRange> <observationRange> <text> 136-145</text> </observationRange> </ referenceRange> </observation></component> < component> <observation moodCode="EVN" classCode=" OBS"> <templateId root="2.16.840.1.169954.10.20.22.4.2& quot; /> <id nullFlavor="NA" /> <code codeSystem="local" code="K" displayName="POTASSIUM&quot ; /> <statusCode code="completed" /> < effectiveTime value="011714374621" /> <value unit=&quot ;mmol/L" xsi:type="PQ" value="3.7" /> < referenceRange> <observationRange> <text>3.5-5.1 </text> </observationRange> </referenceRange& gt; </observation> </component> <component> <observation moodCode="EVN" classCode="OBS"> &lt ;templateId root="2.16.840.1.783110.10.20.22.4.2" /> < id nullFlavor="NA" /> <code codeSystem="local&quot ; code="CL" displayName="CHLORIDE" /> < statusCode code="completed" /> <effectiveTime value=& quot;973804534596" /> <value unit="mmol/L" xsi: type="PQ" value="104" /> <referenceRange> <observationRange> <text>98-107</text&gt ; </observationRange> </referenceRange> & lt;/observation> </component> <component> < observation moodCode="EVN" classCode="OBS"> < templateId root="2.16.840.1.479251.10.20.22.4.2" /> < id nullFlavor="NA" /> <code codeSystem="local" code="TCO2" displayName="TCO2" /> <statusCode code="completed" /> <effectiveTime value=" 538245177475" /> <value unit="mmol/L" xsi:type=& quot;PQ" value="28.6" /> <referenceRange> <observationRange> <text>21.0-32.0</text> </observationRange> </referenceRange> < /observation> </component> <component> < observation moodCode="EVN" classCode="OBS"> < templateId root="2.16.840.1.225835.10.20.22.4.2" /> < id nullFlavor="NA" /> <code codeSystem="local&quot ; code="AGAP" displayName="*ANION GAP" /> < statusCode code="completed" /> <effectiveTime value=& quot;263627047478" /> <value unit="mmol/L" xsi: type="PQ" value="7.4" /> <interpretationCode codeSystem="local" code="*" /> < referenceRange> <observationRange> <text> 8.0-16.0</text> </observationRange> </ referenceRange> </observation> </component> < component> <observation moodCode="EVN" classCode=" OBS"> <templateId root="[id number]& quot; /> <id nullFlavor="NA" /> <code codeSystem="local" code="BUN" displayName="BUN" /& gt; <statusCode code="completed" /> < effectiveTime value="[id number]" /> <value unit=&quot ;"xsi:type="PQ" value="11" /> < referenceRange> <observationRange> <text> 7-18</text> </observationRange> </referenceRange& gt; </observation> </component> <component> <observation moodCode="EVN" classCode="OBS"> <templateId root="2.16.840.1.928181.10.20.22.4.2" /> <id nullFlavor="NA"/> <code codeSystem=" local" code="CREA" displayName="CREATININE" /> <statusCode code="completed" /> <effectiveTime value="965210355432" /> <value unit="" xsi: type="PQ" value="1.29" /> < interpretationCode codeSystem="local" code="*" /> <referenceRange> <observationRange> < text>0.55-1.02</text> </observationRange> &lt ;/referenceRange></observation> </component> < component> <observation moodCode="EVN" classCode=" OBS"> <templateId root="2.16.840.1.519441.10.20.22.4.2& quot; /> <id nullFlavor="NA" /> <code codeSystem="local" code="B/C" displayName="*BUN/ CREATININE RATIO" /> <statusCode code="completed" /> <effectiveTime value="396814645740" /> & lt;value unit="" xsi:type="PQ" value="8.5" /> <interpretationCode codeSystem="local" code="*" /&gt ; <referenceRange> <observationRange> <text>9.1-17.0</text> </observationRange> & lt;/referenceRange> </observation> </component> <component> <observation moodCode="EVN" classCode=& quot;OBS"> <templateId root=" 2.16.840.1.037993.10.20.22.4.2" /> <id nullFlavor="NA" /& gt; <code codeSystem="local" code="GLU" displayName="GLUCOSE" /> <statusCode code=" completed" /> <effectiveTime value="229319728390" /> <value unit="" xsi:type="PQ" value=" 96" /> <referenceRange> <observationRange& gt; <text>65-99</text> </observationRange > </referenceRange> </observation> </ component> <component> <observation moodCode="EVN& quot; classCode="OBS"> <templateId root=" 2.16.840.1.243989.10.20.22.4.2" /> <id nullFlavor="NA& quot; /> <code codeSystem="local" code="CA" displayName="CALCIUM" /> <statusCode code=" completed" /> <effectiveTime value="469644512926" /> <value unit="" xsi:type="PQ" value=" 8.5" /> <referenceRange> <observationRange& gt; <text>8.5-10.1</text> </observationRange> </referenceRange> </observation> </component&gt ; <component> <observation moodCode="EVN" classCode="OBS"> <templateId root=" 2.16.840.1.178760.10.20.22.4.2" /> <id nullFlavor="NA& quot; /> <code codeSystem="local" code="BILT&quot ; displayName="BILIFUBIN TOTAL" /> <statusCode code=" completed" /> <effectiveTime value="672759282364" /> <value unit="" xsi:type="PQ" value=" 0.80" /> <referenceRange> <observationRange > <text>0.20-1.00</text> </ observationRange> </referenceRange> </observation&gt ; </component> <component> <observation moodCode ="EVN" classCode="OBS"> <templateId root=& quot;2.16.840.1.146930.10.20.22.4.2" /> <id nullFlavor=&quot ;NA" /> <code codeSystem="local" code="TP& quot; displayName="TOTAL PROTEIN" /> <statusCode code=& quot;completed" /> <effectiveTime value="645037015244& quot; /> <value unit="" xsi:type="PQ" value="6.5 " /> <referenceRange> <observationRange&gt ; <text>6.4-8.2</text> </observationRange> </referenceRange> </observation> </component& gt; <component> <observation moodCode="EVN" classCode="OBS"> <templateId root=" 2.16.840.1.451816.10.20.22.4.2" /> <id nullFlavor="NA" /&gt ; <code codeSystem="local" code="ALB" displayName="ALBUMIN" /> <statusCode code=" completed" /> <effectiveTime value="334087621029" /> <value unit="" xsi:type="PQ" value=" 2.9" /> <interpretationCode codeSystem="local" code="*" /> <referenceRange> < observationRange> <text>3.4-5.0</text> & lt;/observationRange> </referenceRange> </ observation> </component> <component> <observation moodCode="EVN" classCode="OBS"> <templateId root="2.16.840.1.662744.10.20.22.4.2" /> <id nullFlavor ="NA" /> <code codeSystem="local" code="GLOB& quot; displayName="*GLOBULIN" /> <statusCode code=&quot ;completed" /> <effectiveTime value="098565768741&quot ; /> <value unit="" xsi:type="PQ" value=&quot ;3.6" /> <interpretationCode codeSystem="local" code="*" /> <referenceRange> < observationRange> <text>2.3-3.5</text> & lt;/observationRange> </referenceRange> </ observation> </component> <component> < observation moodCode="EVN" classCode="OBS"> < templateId root="2.16.840.1.843586.10.20.22.4.2" /> < id nullFlavor="NA" /> <code codeSystem="local&quot ; code="AGR" displayName="*A/G RATIO" /> < statusCode code="completed" /> <effectiveTime value=& quot;344496061740" /> <value unit="" xsi:type=& quot;PQ" value="0.8" /> <interpretationCode codeSystem="local" code="*" /> < referenceRange> <observationRange> <text> 1.5-2.2</text> </observationRange> </ referenceRange> </observation> </component> < component> <observation moodCode="EVN" classCode=" OBS"> <templateId root="2.16.840.1.268506.10.20.22.4.2& quot; /> <id nullFlavor="NA" /> <code codeSystem="local" code="ALP" displayName="ALK PHOS& quot; /> <statusCode code="completed" /> & lt;effectiveTime value="826629562348" /> <value unit=& quot;U/L" xsi:type="PQ" value="88" /> < referenceRange> <observationRange> <text>46- 116</text> </observationRange> </ referenceRange> </observation> </component> < component> <observation moodCode="EVN" classCode=" OBS"> <templateId root="2.16.840.1.900516.10.20.22.4.2& quot; /> <id nullFlavor="NA" /> <code codeSystem="local" code="ALT" displayName="ALT (SGPT)& quot; /> <statusCode code="completed" /> < effectiveTime value="248555572951" /> <value unit=&quot ;U/L" xsi:type="PQ" value="26"/> < referenceRange> <observationRange> <text> 16-63</text> </observationRange> </ referenceRange> </observation> </component> < component> <observation moodCode="EVN" classCode=" OBS"> <templateId root="2.16.840.1.414886.10.20.22.4.2& quot; /> <id nullFlavor="NA" /> <code codeSystem="local" code="AST" displayName="AST (SGOT)& quot; /> <statusCode code="completed" /> & lt;effectiveTime value="920450019506" /> <value unit=& quot;U/L" xsi:type="PQ" value="13" /> < interpretationCode codeSystem="local" code="*" /> <referenceRange> <observationRange> <text& gt;15-37</text> </observationRange> </ referenceRange> </observation> </component></ organizer> </entry> <entry> <organizer moodCode="EVN " classCode="BATTERY"> <templateId root=" 2.16.840.1.702905.10.20.22.4.1" /> <id nullFlavor="NA" /& gt; <code codeSystem="local" code="LCBC" displayName ="L100.0050" /> <statusCode code="completed" /&gt ; <component> <observation moodCode="EVN" classCode= "OBS"> <templateId root=" 2.16.840.1.214732.10.20.22.4.2" /> <id nullFlavor="NA& quot; /> <code codeSystem="local" code="100.0150& quot; displayName="WBC - WHITE BLOOD COUNT" /> < statusCode code="completed" /> <effectiveTime value=& quot;789169523258" /> <value unit="T/MM3" xsi:type ="PQ" value="17.7" /> <interpretationCode codeSystem="local" code="H" /> < referenceRange> <observationRange> <text> 4.5-11.0</text> </observationRange> </ referenceRange> </observation> </component> < component> <observation moodCode="EVN" classCode=" OBS"> <templateId root="2.16.840.1.498413.10.20.22.4.2& quot; /> <id nullFlavor="NA" /> <code codeSystem="local" code="100.0250" displayName="RED BLOOD COUNT" /> <statusCode code="completed" /&gt ; <effectiveTime value="625381811912" /> < value unit="M/MM3" xsi:type="PQ" value="5.15" /&gt ; <interpretationCode codeSystem="local" code="N&quot ; /> <referenceRange> <observationRange> & lt;text>4.00-5.20</text> </observationRange> </referenceRange> </observation> </component> <component> <observation moodCode="EVN" classCode=& quot;OBS"> <templateId root=" 2.16.840.1.466021.10.20.22.4.2" /> <id nullFlavor="NA& quot; /> <code codeSystem="local" code="100.0300& quot; displayName="HGB - HEMOGLOBIN" /> <statusCode code="completed" /> <effectiveTime value=" 740197016606" /> <value unit="GM/DL" xsi:type=& quot;PQ" value="13.9" /> <interpretationCode codeSystem="local" code="N" /> < referenceRange> <observationRange> <text> 12-16</text> </observationRange> </ referenceRange> </observation> </component> < component> <observation moodCode="EVN" classCode=" OBS"> <templateId root="2.16.840.1.312503.10.20.22.4.2& quot; /> <id nullFlavor="NA" /> <code codeSystem="local" code="100.0400" displayName="HCT - HEMATOCRIT" /> <statusCode code="completed" /> <effectiveTime value="832928349033" /> <value unit="%" xsi:type="PQ" value="41.3" /> <interpretationCode codeSystem="local" code="N" /&gt ; <referenceRange> <observationRange> <text>36-46</text> </observationRange> </ referenceRange> </observation> </component> < component> <observation moodCode="EVN" classCode=" OBS"> <templateId root="2.16.840.1.577722.10.20.22.4.2& quot; /> <id nullFlavor="NA" /> <code codeSystem="local" code="100.0550" displayName="MEAN CORPUSCULAR VOLUME" /> <statusCode code="completed&quot ; /> <effectiveTime value="930046310571" /> <value unit="UM3" xsi:type="PQ" value="80.2" /> <interpretationCode codeSystem="local" code="N& quot; /> <referenceRange> <observationRange> <text>80-100</text> </observationRange> </referenceRange> </observation> </component> <component> <observation moodCode="EVN" classCode ="OBS"> <templateId root="2.16.840.1.170640.10.20.22.4.2& quot; /> <id nullFlavor="NA" /> <code codeSystem="local" code="100.0600" displayName="MEAN CORPUSCULAR HGB" /> <statusCode code="completed" / > <effectiveTime value="431381587828" /> < value unit="UUG" xsi:type="PQ" value="27.0" /> <interpretationCode codeSystem="local" code="N&quot ; /> <referenceRange> <observationRange> <text>26-34</text> </observationRange> </referenceRange> </observation> </component& gt; <component> <observation moodCode="EVN" classCode="OBS"> <templateId root=" 2.16.840.1.795612.10.20.22.4.2" /> <id nullFlavor="NA& quot; /> <code codeSystem="local" code="100.0650" displayName="MEAN CORPUSCULARHGB CONC([facility]" /> < statusCode code="completed" /> <effectiveTime value=& quot;643804792089" /> <value unit="GM/DL" xsi:type ="PQ" value="33.7" /> <interpretationCode codeSystem="local"code="N" /> <referenceRange > <observationRange> <text>31-37</text> </observationRange> </referenceRange> </ observation> </component> <component> < observation moodCode="EVN" classCode="OBS"> < templateId root="2.16.840.1.567412.10.20.22.4.2" /> < id nullFlavor="NA" /> <code codeSystem="local&quot ; code="100.0750" displayName="RDW STANDARD DEVIATION"/> <statusCode code="completed" /> < effectiveTime value="337698760578" /> <value unit=&quot ;FL" xsi:type="PQ" value="39.7" /> < interpretationCode codeSystem="local" code="N" /> <referenceRange> <observationRange> < text>36.9-50.2</text> </observationRange> &lt ;/referenceRange> </observation> </component> & lt;component> <observation moodCode="EVN" classCode=&quot ;OBS"> <templateId root="2.16.840.1.410349.10.20.22.4.2 " /> <id nullFlavor="NA" /> <code codeSystem="local" code="100.0850" displayName="PLT - PLATELET COUNT" /> <statusCode code="completed" /& gt; <effectiveTime value="011029370755" /> &lt ;value unit="T/MM3" xsi:type="PQ" value="159" /&gt ; <interpretationCode codeSystem="local" code="N" / > <referenceRange> <observationRange> <text>130-400</text> </observationRange> </referenceRange> </observation> </component> <component> <observation moodCode="EVN" classCode= "OBS"> <templateId root=" 2.16.840.1.800653.10.20.22.4.2" /> <id nullFlavor="NA" /& gt; <code codeSystem="local" code="100.0950" displayName="MEAN PLATELET VOLUME" /> <statusCode code= "completed" /> <effectiveTime value="717824067036& quot; /> <value unit="UM3" xsi:type="PQ" value="10.5" /> <interpretationCode codeSystem=" local" code="N" /> <referenceRange> < observationRange> <text>9.4-12.4</text> & lt;/observationRange> </referenceRange> </ observation> </component> </organizer> </entry> & lt;entry> <organizer moodCode="EVN" classCode="BATTERY& quot;> <templateId root="2.16.840.1.045999.10.20.22.4.1" /& gt; <id nullFlavor="NA" /> <code codeSystem="local " code="LDIFFM" displayName="L100.0105" /> < statusCode code="completed" /> <component> < observation moodCode="EVN" classCode="OBS"> < templateId root="2.16.840.1.246955.10.20.22.4.2" /> < id nullFlavor="NA" /> <code codeSystem="local&quot ; code="100.1650" displayName="NEUTROPHILS % (MANUAL)& quot; /> <statusCode code="completed" /> & lt;effectiveTime value="944472645008" /> <value unit=& quot;%" xsi:type="PQ" value="74.0" /> <interpretationCode codeSystem="local" code="H" /&gt ; <referenceRange> <observationRange> < text>33-66</text> </observationRange> </ referenceRange> </observation> </component> < component> <observation moodCode="EVN" classCode=" OBS"><templateId root="2.16.840.1.615214.10.20.22.4.2" /&gt ; <id nullFlavor="NA" /> <code codeSystem=& quot;local" code="100.1850" displayName="LYMPHOCYTES &# 37; (MANUAL)" /> <statusCode code="completed" /&gt ; <effectiveTime value="613910916036" /> < value unit="%" xsi:type="PQ" value="23.0" /> <interpretationCode codeSystem="local" code="N& quot; /> <referenceRange> <observationRange> <text>23-45</text> </observationRange&gt ; </referenceRange> </observation> </component > <component> <observation moodCode="EVN" classCode="OBS"> <templateId root=" 2.16.840.1.129929.10.20.22.4.2" /> <id nullFlavor="NA& quot; /> <code codeSystem="local" code="100.1950& quot; displayName="MONOCYTES % (MANUAL)" /> < statusCode code="completed" /> <effectiveTime value=" 758644029448" /> <value unit="%" xsi:type= "PQ" value="3.0" /> <interpretationCode codeSystem="local" code="N" /> < referenceRange> <observationRange> <text> 0-9.0</text> </observationRange> </ referenceRange> </observation> </component> < component> <observation moodCode="EVN" classCode="OBS&quot ;> <templateId root="2.16.840.1.081337.10.20.22.4.2" /& gt; <id nullFlavor="NA" /> <code codeSystem=& quot;local" code="100.2650" displayName="NEUTROPHILS # ( MANUAL)" /> <statusCode code="completed" /> <effectiveTime value="024474402556" /> < value unit="T/MM3" xsi:type="PQ" value="13.1" /&gt ; <interpretationCode codeSystem="local" code="H&quot ; /> <referenceRange> <observationRange> < text>1.8-7.7</text> </observationRange> </ referenceRange> </observation> </component> < component> <observationmoodCode="EVN" classCode="OBS "> <templateId root="2.16.840.1.552131.10.20.22.4.2& quot; /> <id nullFlavor="NA" /> <code codeSystem="local" code="100.2700" displayName=" LYMPHOCYTES # (MANUAL)" /> <statusCode code="completed& quot; /> <effectiveTime value="464391956738" /> <value unit="T/MM3" xsi:type="PQ" value="4.1& quot; /> <interpretationCode codeSystem="local" code=& quot;N" /> <referenceRange> < observationRange> <text>1-4.8</text> < /observationRange> </referenceRange> </observation& gt; </component> <component> <observation moodCode="EVN" classCode="OBS"> <templateId root="2.16.840.1.063185.10.20.22.4.2" /> <id nullFlavor ="NA" /> <code codeSystem="local" code=" 100.2750" displayName="MONOCYTES # (MANUAL)" /> < statusCode code="completed" /> <effectiveTime value=& quot;369541745768" /> <value unit="T/MM3" xsi:type ="PQ" value="0.5" /> <interpretationCode codeSystem= "local" code="N" /> <referenceRange> <observationRange> <text>0-0.8</text> < /observationRange> </referenceRange> </observation& gt; </component> <component> <observation moodCode="EVN" classCode="OBS"> <templateId root="2.16.840.1.982814.10.20.22.4.2" /> <id nullFlavor ="NA" /> <code codeSystem="local" code=" 100.4595" displayName="RBC MORPHOLOGY" /> < statusCode code="completed" /> <effectiveTime value=& quot;823582220962" /> <value unit="" xsi:type=& quot;PQ" value="NORMAL" /> <interpretationCode codeSystem="local" code="N" /> < referenceRange> <observationRange> <text /& gt; </observationRange> </referenceRange> </observation> </component> </organizer> </entry > <entry> <organizer moodCode="EVN" classCode=" BATTERY"> <templateId root="2.16.840.1.287075.10.20.22.4.1& quot; /> <id nullFlavor="NA" /> <code codeSystem ="local" code="LLACTATEV" displayName="L200.2066" /> <statusCode code="completed" /> <component&gt ;<observation moodCode="EVN" classCode="OBS"> <templateId root="2.16.840.1.280374.10.20.22.4.2" /> <id nullFlavor="NA" /> <code codeSystem="local" code="200" displayName="LACTATE - LACTIC ACID, VENOUS" /> <statusCode code="completed" /> < effectiveTime value="525467806217" /> <value unit=&quot ;MMOL/L" xsi:type="PQ" value="0.9" /> < interpretationCode codeSystem="local" code="N" /> <referenceRange> <observationRange> <text> 0.6-2.2</text> </observationRange> </ referenceRange> </observation> </component> </ organizer> </entry> <entry> <organizer moodCode="EVN " classCode="BATTERY"> <templateId root=" 2.16.840.1.157073.10.20.22.4.1" /> <id nullFlavor="NA&quot ; /> <code codeSystem="local" code="LCBC" displayName="L100.0050" /> <statusCode code="completed " /> <component> <observation moodCode="EVN& quot; classCode="OBS"> <templateId root=" 2.16.840.1.593344.10.20.22.4.2" /> <id nullFlavor="NA& quot; /> <code codeSystem="local" code="100.0150& quot; displayName="WBC - WHITE BLOOD COUNT" /> < statusCode code="completed" /> <effectiveTime value=& quot;301734899903" /> <value unit="T/MM3" xsi:type ="PQ" value="16.1" /> <interpretationCode codeSystem="local" code="H" /> < referenceRange> <observationRange> <text> 4.5-11.0</text> </observationRange> </ referenceRange></observation> </component> < component> <observation moodCode="EVN" classCode=" OBS"> <templateId root="2.16.840.1.869330.10.20.22.4.2& quot; /> <id nullFlavor="NA" /> <code codeSystem="local" code="100.0250" displayName="RED BLOOD COUNT" /> <statusCode code="completed" /&gt ; <effectiveTime value="554057094743" /> < value unit="M/MM3" xsi:type="PQ" value="5.45" /&gt ; <interpretationCode codeSystem="local" code="H&quot ; /> <referenceRange> <observationRange> <text>4.00-5.20</text> </observationRange&gt ; </referenceRange> </observation> </component& gt; <component> <observation moodCode="EVN" classCode="OBS"> <templateId root=" 2.16.840.1.431195.10.20.22.4.2" /> <id nullFlavor="NA& quot; /> <code codeSystem="local" code="100.0300& quot; displayName="HGB - HEMOGLOBIN" /> <statusCode code="completed" /> <effectiveTime value=" 188807205144" /> <value unit="GM/DL" xsi:type=& quot;PQ" value="14.8" /> <interpretationCode codeSystem="local" code="N" /> < referenceRange> <observationRange> <text>12-16 </text> </observationRange> </referenceRange& gt; </observation> </component> <component> <observation moodCode="EVN" classCode="OBS"> &lt ;templateId root="2.16.840.1.632684.10.20.22.4.2" /> < id nullFlavor="NA" /> <code codeSystem="local&quot ; code="100.0400" displayName="HCT - HEMATOCRIT" /> <statusCode code="completed" /> <effectiveTime value ="266742370000" /> <value unit="%" xsi:type="PQ" value="44.8" /> < interpretationCode codeSystem="local" code="N" /> <referenceRange> <observationRange> < text>36-46</text> </observationRange> </ referenceRange> </observation> </component> < component> <observation moodCode="EVN" classCode="OBS& quot;> <templateId root="2.16.840.1.839756.10.20.22.4.2&quot ; /> <id nullFlavor="NA" /> <code codeSystem="local" code="100.0550" displayName="MEAN CORPUSCULAR VOLUME" /> <statusCode code="completed&quot ; /> <effectiveTime value="889230890729" /> <value unit="UM3" xsi:type="PQ" value="82.2" /> <interpretationCode codeSystem="local" code="N& quot; /> <referenceRange> <observationRange> <text>80-100</text> </observationRange> </referenceRange> </observation> </component> <component> <observationmoodCode="EVN" classCode=& quot;OBS"> <templateId root=" 2.16.840.1.391404.10.20.22.4.2" /> <id nullFlavor="NA& quot; /> <code codeSystem="local" code="100.0600& quot; displayName="MEAN CORPUSCULAR HGB" /> < statusCode code="completed" /> <effectiveTime value=& quot;565061836515" /> <value unit="UUG" xsi:type=& quot;PQ" value="27.2" /> <interpretationCode codeSystem="local" code="N" /> <referenceRange& gt; <observationRange> <text>26-34</text& gt; </observationRange> </referenceRange> </observation> </component> <component> &lt ;observation moodCode="EVN" classCode="OBS"> &lt ;templateId root="2.16.840.1.350239.10.20.22.4.2" /> < id nullFlavor="NA" /> <code codeSystem="local&quot ; code="100.0650" displayName="MEAN CORPUSCULAR HGB CONC([facility]& quot; /> <statusCode code="completed" /> & lt;effectiveTime value="698804101417" /> <value unit=& quot;GM/DL" xsi:type="PQ" value="33.0" /> & lt;interpretationCode codeSystem="local" code="N" /> <referenceRange> <observationRange> & lt;text>31-37</text> </observationRange> </ referenceRange> </observation></component> < component> <observation moodCode="EVN" classCode=" OBS"> <templateId root="2.16.840.1.530510.10.20.22.4.2& quot; /> <id nullFlavor="NA" /> <code codeSystem="local" code="100.0750" displayName="RDW STANDARD DEVIATION" /> <statusCode code="completed&quot ; /> <effectiveTime value="313123823117" /> <value unit="FL" xsi:type="PQ" value="43.5" / > <interpretationCode codeSystem="local" code="N& quot; /> <referenceRange> <observationRange> <text>36.9-50.2</text> </observationRange&gt ; </referenceRange> </observation> </ component> <component> <observation moodCode="EVN& quot; classCode="OBS"> <templateId root=" 2.16.840.1.610330.10.20.22.4.2" /> <id nullFlavor="NA& quot; /> <code codeSystem="local" code="100.0850& quot; displayName="PLT - PLATELET COUNT" /> < statusCode code="completed" /> <effectiveTime value=& quot;547186383856" /> <value unit="T/MM3" xsi:type ="PQ" value="331" /> <interpretationCode codeSystem="local" code="N" /> < referenceRange> <observationRange> <text> 130-400</text> </observationRange> </referenceRange > </observation> </component> <component> <observation moodCode="EVN" classCode="OBS"> <templateId root="2.16.840.1.333022.10.20.22.4.2" /> <id nullFlavor="NA" /> <code codeSystem=& quot;local" code="100.0950" displayName="MEAN PLATELET VOLUME" /> <statusCode code="completed" /> <effectiveTime value="175503701687" /> <value unit="UM3" xsi:type="PQ" value="9.2" /> <interpretationCode codeSystem="local" code="L" /> <referenceRange> <observationRange> <text& gt;9.4-12.4</text> </observationRange> </ referenceRange> </observation> </component> </ organizer> </entry> <entry> <organizer moodCode="EVN " classCode="BATTERY"> <templateId root=" 2.16.840.1.597870.10.20.22.4.1" /> <id nullFlavor="NA&quot ; /> <code codeSystem="local" code="LDIFFM" displayName="L100.0105" /> <statusCode code="completed " /> <component> <observation moodCode="EVN& quot; classCode="OBS"> <templateId root=" 2.16.840.1.207121.10.20.22.4.2" /> <id nullFlavor="NA& quot; /> <code codeSystem="local" code="100.1650& quot; displayName="NEUTROPHILS % (MANUAL)" /> < statusCode code="completed" /> <effectiveTime value=& quot;526143783458" /> <value unit="%" xsi: type="PQ" value="70.0" /> < interpretationCode codeSystem="local" code="H" /> <referenceRange> <observationRange> <text>33-66& lt;/text> </observationRange> </referenceRange& gt; </observation> </component> <component> <observation moodCode="EVN" classCode="OBS"> <templateId root="2.16.840.1.561174.10.20.22.4.2" /> <id nullFlavor="NA" /> <code codeSystem=&quot ;local" code="100.1850" displayName="LYMPHOCYTES % ( MANUAL)" /> <statusCode code="completed" /> <effectiveTime value="335673366260" /> < value unit="%" xsi:type="PQ" value="30.0" /> <interpretationCode codeSystem="local" code="N& quot; /> <referenceRange> <observationRange> <text>23-45</text> </observationRange&gt ; </referenceRange></observation> </component> <component> <observation moodCode="EVN" classCode ="OBS"> <templateId root=" 2.16.840.1.144181.10.20.22.4.2" /> <id nullFlavor="NA& quot; /> <code codeSystem="local" code="100.2650& quot; displayName="NEUTROPHILS # (MANUAL)" /> <statusCode code ="completed" /> <effectiveTime value="[id number] " /> <value unit="T/MM3" xsi:type="PQ" value="11.3" /> <interpretationCode codeSystem=" local" code="H" /> <referenceRange> < observationRange> <text>1.8-7.7</text> & lt;/observationRange> </referenceRange> </ observation> </component> <component> < observation moodCode="EVN" classCode="OBS"> < templateId root="[id number]" /> < id nullFlavor="NA" /> <code codeSystem="local&quot ; code="100.2700" displayName="LYMPHOCYTES # (MANUAL)" /&gt ; <statusCodecode="completed" /> < effectiveTime value="[id number]" /> <value unit="T/ MM3" xsi:type="PQ" value="4.8" /> < interpretationCode codeSystem="local" code="N" /> <referenceRange> <observationRange> < text>1-4.8</text> </observationRange> </ referenceRange> </observation> </component> < component> <observation moodCode="EVN" classCode=" OBS"> <templateId root="2.16.840.1.244939.10.20.22.4.2& quot; /> <id nullFlavor="NA" /> <code codeSystem="local" code="100.4595" displayName="RBC MORPHOLOGY" /> <statusCode code="completed" /> <effectiveTime value="149346948373" /> < value unit="" xsi:type="PQ" value="NORMAL" /> <interpretationCode codeSystem="local" code="N" /> <referenceRange> <observationRange> <text /> </observationRange> </ referenceRange> </observation> </component> </ organizer> </entry> <entry> <organizer moodCode="EVN " classCode="BATTERY"> <templateId root=" 2.16.840.1.461652.10.20.22.4.1" /> <id nullFlavor="NA&quot ; /> <code codeSystem="local" code="LCMP" displayName="L200.0020" /> <statusCode code="completed " /> <component> <observation moodCode="EVN& quot; classCode="OBS"> <templateId root=" 2.16.840.1.668307.10.20.22.4.2" /> <id nullFlavor="NA& quot; /> <code codeSystem="local" code="200.0097& quot; displayName="ICTERUS" /> <statusCode code=" completed" /> <effectiveTime value="438335035105" /> <value unit="" xsi:type="PQ" value="& amp;lt; 2" /> <interpretationCode codeSystem="local& quot; code="N" /> <referenceRange> < observationRange> <text>0-7</text> </ observationRange> </referenceRange> </observation&gt ; </component> <component> <observation moodCode ="EVN" classCode="OBS"> <templateId root=& quot;2.16.840.1.787047.10.20.22.4.2" /> <id nullFlavor=&quot ;NA" /> <code codeSystem="local" code=" 200.0098" displayName="HEMOLYSIS" /> <statusCode code="completed" /> <effectiveTime value=" 168379372028" /> <valueunit="" xsi:type="PQ& quot; value="< 15" /> <interpretationCode codeSystem="local" code="N" /> < referenceRange> <observationRange> <text>0-25&lt ;/text> </observationRange> </referenceRange&gt ; </observation> </component> <component> <observation moodCode="EVN" classCode="OBS"> &lt ;templateId root="2.16.840.1.455343.10.20.22.4.2" /> < id nullFlavor="NA" /> <code codeSystem="local&quot ; code="200.0099" displayName="TURBIDITY" /> &lt ;statusCode code="completed" /> <effectiveTime value=& quot;004156412205" /> <value unit="" xsi:type=& quot;PQ" value="< 20" /> < interpretationCode codeSystem="local" code="N" /> <referenceRange> <observationRange> <text >0-20</text> </observationRange> </ referenceRange> </observation> </component> < component> <observation moodCode="EVN" classCode=" OBS"> <templateId root="2.16.840.1.286204.10.20.22.4.2& quot; /> <id nullFlavor="NA" /> <code codeSystem="local" code="200.0100" displayName="SODIUM& quot; /> <statusCode code="completed" /> < effectiveTime value="294994980745" /> <value unit=&quot ;MEQ/L" xsi:type="PQ" value="138" /> < interpretationCode codeSystem="local" code="N" /> < referenceRange> <observationRange> <text> 134-144</text> </observationRange> </ referenceRange> </observation> </component> < component> <observation moodCode="EVN" classCode=" OBS"> <templateId root="2.16.840.1.187794.10.20.22.4.2& quot; /> <id nullFlavor="NA" /> <code codeSystem="local" code="200.0150" displayName=" POTASSIUM" /> <statusCode code="completed" /> <effectiveTime value="546855068992" /> < value unit="MEQ/L" xsi:type="PQ" value="3.9" /&gt ; <interpretationCode codeSystem="local" code="N&quot ; /> <referenceRange> <observationRange> <text>3.6-5</text> </observationRange> & lt;/referenceRange> </observation> </component> <component> <observation moodCode="EVN" classCode=& quot;OBS"> <templateId root="2.16.840.1.030074.10.20.22.4.2& quot; /> <id nullFlavor="NA" /> <code codeSystem="local" code="200.0200" displayName=" CHLORIDE" /> <statusCode code="completed" /> <effectiveTime value="541653360575" /> < value unit="MEQ/L" xsi:type="PQ" value="101" /&gt ; <interpretationCode codeSystem="local" code="N&quot ; /> <referenceRange> <observationRange> <text>98-107</text> </observationRange> </referenceRange> </observation> </component> <component> <observation moodCode="EVN" classCode= "OBS"> <templateId root=" 2.16.840.1.727127.10.20.22.4.2" /> <id nullFlavor="NA& quot; /> <code codeSystem="local" code="200.0250& quot; displayName="CO2 - CARBON DIOXIDE" /> < statusCode code="completed" /> <effectiveTime value=& quot;808560413244" /> <value unit="MEQ/L" xsi:type ="PQ" value="26" /> <interpretationCode codeSystem="local" code="N" /> < referenceRange> <observationRange> <text> 22-30</text> </observationRange> </ referenceRange> </observation> </component> < component> <observation moodCode="EVN" classCode=" OBS"> <templateId root="2.16.840.1.615569.10.20.22.4.2& quot; /> <id nullFlavor="NA" /> <code codeSystem="local" code="200.0300" displayName="ANION GAP" /> <statusCode code="completed" /> <effectiveTime value="980388124882" /> <value unit=" MEQ/L" xsi:type="PQ" value="11" /> < interpretationCode codeSystem="local" code="N" /> <referenceRange> <observationRange> < text>5-15</text> </observationRange> </ referenceRange> </observation> </component> < component> <observation moodCode="EVN" classCode=" OBS"> <templateId root="2.16.840.1.071901.10.20.22.4.2& quot; /> <id nullFlavor="NA" /> <code codeSystem="local" code="200.0350" displayName="BLOOD UREA NITROGEN" /> <statusCode code="completed" /& gt; <effectiveTime value="375073495651" /> &lt ;value unit="MG/DL" xsi:type="PQ" value="19.0" /& gt; <interpretationCode codeSystem="local" code="H& quot; /> <referenceRange> <observationRange> <text>7-17</text> </observationRange&gt ; </referenceRange> </observation> </component> <component> <observation moodCode="EVN" classCode=& quot;OBS"> <templateIdroot=" 2.16.840.1.715901.10.20.22.4.2" /> <id nullFlavor="NA& quot; /> <code codeSystem="local" code="200.0400& quot; displayName="CREATININE" /> <statusCode code=& quot;completed" /> <effectiveTime value="465069596658& quot; /> <value unit="MG/DL" xsi:type="PQ" value="1.0" /> <interpretationCode codeSystem=" local" code="N" /> <referenceRange> <observationRange> <text>0.7-1.2</text> </observationRange> </referenceRange> </observation& gt; </component> <component> <observation moodCode="EVN" classCode="OBS"> <templateId root="2.16.840.1.519337.10.20.22.4.2" /> <id nullFlavor ="NA" /> <code codeSystem="local" code=" 200.0450" displayName="BUN/CREATININE RATIO" /> < statusCode code="completed" /> <effectiveTime value=& quot;793902138974" /> <value unit="RATIO" xsi:type ="PQ" value="19" /> <interpretationCode codeSystem="local" code="N" /> < referenceRange> <observationRange> <text> 6-26</text> </observationRange> </ referenceRange> </observation> </component> < component> <observation moodCode="EVN" classCode=" OBS"> <templateId root="2.16.840.1.665987.10.20.22.4.2& quot; /> <id nullFlavor="NA" /> <code codeSystem="local" code="200.0475" displayName=" GLOMERULAR FILTRATION RATE" /> <statusCode code=" completed" /> <effectiveTime value="601536399296" /> <value unit="" xsi:type="PQ" value="65&quot ; /> <interpretationCode codeSystem="local" code=" N" /> <referenceRange> <observationRange> <text /> </observationRange> </ referenceRange> </observation> </component> < component> <observation moodCode="EVN" classCode=" OBS"> <templateId root="2.16.840.1.455225.10.20.22.4.2& quot; /> <id nullFlavor="NA" /> <code codeSystem="local" code="200.0500" displayName="GLUCOSE " /> <statusCode code="completed" /> & lt;effectiveTimevalue="805239139722" /> <value unit=& quot;MG/DL" xsi:type="PQ" value="84" /> &lt ;interpretationCode codeSystem="local" code="N" /> <referenceRange> <observationRange> < text>65-110</text> </observationRange> </ referenceRange> </observation> </component> < component> <observation moodCode="EVN" classCode=" OBS"> <templateId root="2.16.840.1.640302.10.20.22.4.2& quot; /> <id nullFlavor="NA" /> <code codeSystem="local" code="200.0550" displayName=" OSMOLALITY,CALCULATED" /> <statusCode code="completed" / > <effectiveTime value="087566064800" /> & lt;value unit="MOSM/KG" xsi:type="PQ" value="267" /> <interpretationCode codeSystem="local" code="N& quot; /> <referenceRange> <observationRange> <text>261-280</text> </observationRange> </referenceRange> </observation> </component& gt; <component> <observation moodCode="EVN" classCode="OBS"> <templateId root=" 2.16.840.1.675718.10.20.22.4.2"/> <id nullFlavor="NA& quot; /> <code codeSystem="local"code="200.0600& quot; displayName="CALCIUM" /> <statusCode code=" completed" /> <effectiveTime value="389642365084" /> <value unit="MG/DL" xsi:type="PQ" value=& quot;9.2" /> <interpretationCode codeSystem="local&quot ; code="N" /> <referenceRange> < observationRange> <text>8.4-10.2</text> & lt;/observationRange> </referenceRange> </ observation> </component> <component> < observation moodCode="EVN" classCode="OBS"> < templateId root="2.16.840.1.530303.10.20.22.4.2" /> < id nullFlavor="NA" /> <code codeSystem="local&quot ; code="200.0650" displayName="BILIRUBIN,TOTAL" /> <statusCode code="completed" /> <effectiveTime value=& quot;779003542271" /> <value unit="MG/DL"xsi:type= "PQ" value="0.50" /> <interpretationCode codeSystem="local" code="N" /> < referenceRange> <observationRange> <text> 0.20-1.30</text> </observationRange> </ referenceRange> </observation> </component> < component> <observation moodCode="EVN" classCode="OBS& quot;> <templateId root="2.16.840.1.974669.10.20.22.4.2&quot ; /> <id nullFlavor="NA" /> <code codeSystem="local" code="200.0950" displayName=" ALKALINE PHOSPHATASE" /> <statusCode code="completed& quot; /> <effectiveTime value="519308710460" /> <value unit="U/L" xsi:type="PQ" value="86&quot ; /> <interpretationCode codeSystem="local" code=" N" /> <referenceRange> <observationRange&gt ; <text>38-126</text> </observationRange& gt; </referenceRange> </observation> </component > <component> <observation moodCode="EVN" classCode="OBS"> <templateId root=" 2.16.840.1.785407.10.20.22.4.2" /> <id nullFlavor="NA& quot; /> <code codeSystem="local" code="200.1000& quot; displayName="TOTAL PROTEIN" /> <statusCode code=& quot;completed" /> <effectiveTime value="762410666372& quot; /> <value unit="G/DL" xsi:type="PQ" value="7.0" /> <interpretationCode codeSystem=" local" code="N" /> <referenceRange> <observationRange> <text>6.3-8.2</text> </observationRange> </referenceRange> </ observation> </component> <component> < observation moodCode="EVN" classCode="OBS"> < templateId root="2.16.840.1.660904.10.20.22.4.2" /> <id nullFlavor="NA" /> <code codeSystem="local" code="200.1050" displayName="ALBUMIN" /> < statusCode code="completed" /> <effectiveTime value=& quot;573178157490" /> <value unit="G/DL" xsi:type= "PQ" value="4.1" /> <interpretationCode codeSystem="local" code="N" /> < referenceRange> <observationRange> <text> 3.5-5.0</text> </observationRange> </ referenceRange> </observation> </component> < component> <observation moodCode="EVN" classCode=" OBS"> <templateId root="2.16.840.1.318753.10.20.22.4.2& quot; /> <id nullFlavor="NA" /> <code codeSystem="local" code="200.1100" displayName=" GLOBULIN" /> <statusCode code="completed" /> <effectiveTime value="562618271712" /> < value unit="G/DL" xsi:type="PQ" value="2.9" /> <interpretationCode codeSystem="local" code="N&quot ; /> <referenceRange> <observationRange> <text>2.4-3.6</text> </observationRange> </referenceRange> </observation> </component > <component> <observation moodCode="EVN" classCode="OBS"> <templateId root=" 2.16.840.1.586376.10.20.22.4.2" /> <id nullFlavor="NA& quot; /> <code codeSystem="local" code="200.1150& quot; displayName="ALBUMIN/GLOBULIN RATIO" /> < statusCode code="completed" /> <effectiveTime value=& quot;851702797167" /> <value unit="RATIO" xsi:type ="PQ" value="1.4" /> <interpretationCode codeSystem="local" code="N" /> <referenceRange& gt; <observationRange> <text>1.1-2.2</ text> </observationRange> </referenceRange> </observation> </component> <component> <observation moodCode="EVN" classCode="OBS"> <templateId root="2.16.840.1.781172.10.20.22.4.2" /> <id nullFlavor="NA" /> <code codeSystem=" local" code="200.1200" displayName="AST (SGOT)" /> <statusCode code="completed" /> < effectiveTime value="558481119097" /> <value unit=&quot ;U/L" xsi:type="PQ" value="16" /> < interpretationCode codeSystem="local" code="N" /> <referenceRange> <observationRange> <text& gt;14-36</text> </observationRange> </ referenceRange> </observation> </component> < component> <observation moodCode="EVN" classCode=" OBS"> <templateId root="2.16.840.1.414617.10.20.22.4.2&quot ; /> <id nullFlavor="NA" /> <code codeSystem="local" code="200.1250" displayName="ALT ( SGPT)" /> <statusCode code="completed" />< effectiveTime value="165443685576" /> <value unit=&quot ;U/L" xsi:type="PQ" value="30" /> < interpretationCode codeSystem="local" code="N" /> <referenceRange> <observationRange> <text& gt;9-52</text> </observationRange> </ referenceRange> </observation> </component> </ organizer> </entry> <entry> <organizer moodCode="EVN " classCode="BATTERY"> <templateId root=" 2.16.840.1.766320.10.20.22.4.1" /> <id nullFlavor="NA&quot ; /> <code codeSystem="local" code="LCBC" displayName="L100.0050" /> <statusCode code="completed " /> <component> <observation moodCode="EVN& quot; classCode="OBS"> <templateId root=" 2.16.840.1.102908.10.20.22.4.2" /> <id nullFlavor="NA& quot; /> <code codeSystem="local" code="100.0150& quot; displayName="WBC - WHITE BLOOD COUNT" /> < statusCode code="completed" /> <effectiveTime value=& quot;369846660488" /> <value unit="T/MM3" xsi:type ="PQ" value="12.1" /> <interpretationCode codeSystem="local" code="H" /> < referenceRange> <observationRange> <text> 4.5-11.0</text> </observationRange> </ referenceRange> </observation> </component> < component> <observation moodCode="EVN" classCode=" OBS"> <templateId root="2.16.840.1.494461.10.20.22.4.2& quot; /> <id nullFlavor="NA" /> <code codeSystem="local" code="100.0250" displayName="RED BLOOD COUNT" /> <statusCode code="completed" /&gt ; <effectiveTime value="048713170511" /> < value unit="M/MM3" xsi:type="PQ" value="5.27" /&gt ; <interpretationCode codeSystem="local" code="H&quot ; /> <referenceRange> <observationRange> <text>4.00-5.20</text> </observationRange&gt ; </referenceRange> </observation> </component > <component> <observation moodCode="EVN" classCode="OBS"> <templateId root=" 2.16.840.1.846329.10.20.22.4.2" /> <id nullFlavor="NA& quot; /> <code codeSystem="local" code="100.0300& quot; displayName="HGB - HEMOGLOBIN" /> <statusCode code="completed" /> <effectiveTime value=" 956465704866" /> <value unit="GM/DL" xsi:type=& quot;PQ" value="14.5" /> <interpretationCode codeSystem="local" code="N" /> < referenceRange> <observationRange> <text>12- 16</text> </observationRange> </ referenceRange> </observation> </component> < component> <observation moodCode="EVN" classCode=" OBS"> <templateId root="2.16.840.1.018029.10.20.22.4.2&quot ; /> <id nullFlavor="NA" /> <code codeSystem="local" code="100.0400" displayName="HCT - HEMATOCRIT" /> <statusCode code="completed" /> <effectiveTime value="747561193301" /> <value unit="%" xsi:type="PQ" value="43.5" /> <interpretationCode codeSystem="local" code="N&quot ; /> <referenceRange> <observationRange> <text>36-46</text> </observationRange>&lt ;/referenceRange> </observation> </component> & lt;component> <observation moodCode="EVN" classCode=" OBS"> <templateId root="2.16.840.1.861302.10.20.22.4.2& quot; /> <id nullFlavor="NA" /> <code codeSystem="local" code="100.0550" displayName="MEAN CORPUSCULAR VOLUME" /> <statusCode code="completed&quot ; /> <effectiveTime value="917551751365" /> <value unit="UM3" xsi:type="PQ" value="82.5" /> <interpretationCode codeSystem="local" code="N& quot; /> <referenceRange> <observationRange> <text>80-100</text> </observationRange> </referenceRange> </observation> </component> <component> <observation moodCode="EVN" classCode= "OBS"> <templateId root=" 2.16.840.1.713420.10.20.22.4.2" /> <id nullFlavor="NA& quot; /> <code codeSystem="local" code="100.0600& quot; displayName="MEAN CORPUSCULAR HGB" /> < statusCode code="completed" /> <effectiveTime value=& quot;636119531052" /> <value unit="UUG" xsi:type=& quot;PQ" value="27.5" /> <interpretationCode codeSystem="local" code="N" /> <referenceRange > <observationRange> <text>26-34</text > </observationRange> </referenceRange> </observation> </component> <component> & lt;observation moodCode="EVN" classCode="OBS"> & lt;templateId root="2.16.840.1.867446.10.20.22.4.2" /> &lt ;id nullFlavor="NA" /> <code codeSystem="local& quot; code="100.0650" displayName="MEAN CORPUSCULAR HGB CONC([facility] " /> <statusCode code="completed" /> & lt;effectiveTime value="531711964515" /> <value unit=& quot;GM/DL" xsi:type="PQ" value="33.3" /> & lt;interpretationCode codeSystem="local" code="N" /> <referenceRange> <observationRange> & lt;text>31-37</text> </observationRange> </ referenceRange> </observation> </component> < component> <observation moodCode="EVN" classCode=" OBS"> <templateId root="2.16.840.1.313583.10.20.22.4.2& quot; /> <id nullFlavor="NA" /> <code codeSystem="local" code="100.0750" displayName="RDW STANDARD DEVIATION" /> <statusCode code="completed&quot ; /> <effectiveTime value="864386896199" /> <value unit="FL" xsi:type="PQ" value="42.2" / > <interpretationCode codeSystem="local" code="N& quot; /> <referenceRange> <observationRange> <text>36.9-50.2</text> </observationRange&gt ; </referenceRange> </observation> </ component> <component> <observation moodCode="EVN& quot; classCode="OBS"> <templateId root=" 2.16.840.1.918867.10.20.22.4.2" /> <id nullFlavor="NA& quot; /> <code codeSystem="local" code="100.0850& quot; displayName="PLT - PLATELET COUNT" /> < statusCode code="completed" /> <effectiveTime value=& quot;121426110923" /> <value unit="T/MM3" xsi:type ="PQ" value="339" /> <interpretationCode codeSystem="local" code="N" /> < referenceRange> <observationRange> <text> 130-400</text> </observationRange> </ referenceRange> </observation> </component> < component> <observation moodCode="EVN" classCode=" OBS"> <templateId root="2.16.840.1.895098.10.20.22.4.2& quot; /> <id nullFlavor="NA" /> <code codeSystem="local" code="100.0950" displayName=" MEANPLATELET VOLUME" /> <statusCode code="completed& quot; /> <effectiveTime value="706151336815" /> <value unit="UM3" xsi:type="PQ" value="9.2& quot; /> <interpretationCode codeSystem="local" code=& quot;L" /> <referenceRange> < observationRange> <text>9.4-12.4</text> </ observationRange> </referenceRange> </observation&gt ; </component> <component> <observation moodCode ="EVN" classCode="OBS"> <templateId root=& quot;2.16.840.1.091607.10.20.22.4.2" /> <id nullFlavor=&quot ;NA" /> <code codeSystem="local" code=" 100.1050" displayName="NEUTROPHILS % (AUTO)" /> <statusCode code="completed" /> <effectiveTime value="832166803369" /> <value unit="%& quot; xsi:type="PQ" value="64.1" /> < interpretationCode codeSystem="local" code="N" /> <referenceRange> <observationRange> < text>33-66</text> </observationRange> </ referenceRange> </observation> </component> < component> <observation moodCode="EVN" classCode=" OBS"> <templateId root="2.16.840.1.892074.10..22.4.2& quot; /> <id nullFlavor="NA" /> <code codeSystem="local" code="100.1100" displayName=" LYMPHOCYTES % (AUTO)" /> <statusCode code=" completed" /> <effectiveTime value="877159263983" /> <value unit="%" xsi:type="PQ" value="24.7" /> <interpretationCode codeSystem=" local" code="N" /> <referenceRange> <observationRange> <text>23-45</text> </observationRange> </referenceRange> </ observation> </component> <component> < observation moodCode="EVN" classCode="OBS"> < templateId root="2.16.840.1.295432.10..22.4.2" /> < id nullFlavor="NA" /> <code codeSystem="local&quot ; code="100.1150" displayName="MONOCYTES % (AUTO)" / > <statusCode code="completed" /> <effectiveTime value="389163354598" /> <value unit="%& quot; xsi:type="PQ" value="7.2" /> < interpretationCode codeSystem="local" code="N" /> < referenceRange> <observationRange> <text> 0-9.0</text> </observationRange> </ referenceRange> </observation> </component> < component> <observation moodCode="EVN" classCode=" OBS"> <templateId root="2.16.840.1.149717.10.20.22.4.2& quot; /> <id nullFlavor="NA" /> <code codeSystem="local" code="100.1200" displayName=" EOSINOPHILS % (AUTO)" /> <statusCode code=" completed" /> <effectiveTime value="014014006754" /> <value unit="%" xsi:type="PQ" value="3.5" /> <interpretationCode codeSystem="local& quot; code="N" /> <referenceRange> < observationRange> <text>0-4</text> </ observationRange> </referenceRange> </observation&gt ; </component> <component> <observation moodCode ="EVN" classCode="OBS"> <templateId root=& quot;2.16.840.1.369186.10.20.22.4.2" /> <id nullFlavor=&quot ;NA" /> <code codeSystem="local" code=" 100.1250" displayName="BASOPHILS % (AUTO)" /> <statusCode code="completed" /> <effectiveTime value="262206181760" /> <value unit="%& quot; xsi:type="PQ" value="0.3" /> < interpretationCode codeSystem="local" code="N" /> <referenceRange> <observationRange> < text>0-2</text> </observationRange> </ referenceRange> </observation> </component> < component> <observation moodCode="EVN" classCode=" OBS"> <templateId root="2.16.840.1.995884.10.20.22.4.2& quot; /> <id nullFlavor="NA" /> <code codeSystem="local" code="100.1275" displayName=" IMMATURE GRANULOCYTE % (AUTO)" /> <statusCode code=& quot;completed" /> <effectiveTime value="712175254301& quot; /> <value unit="%" xsi:type="PQ&quot ; value="0.2" /> <interpretationCode codeSystem=" local" code="N" /> <referenceRange> < observationRange> <text>0.0-0.5</text> & lt;/observationRange> </referenceRange> </ observation> </component> <component> < observation moodCode="EVN" classCode="OBS"> < templateId root="2.16.840.1.680590.10.20.22.4.2" /> < id nullFlavor="NA" /> <code codeSystem="local&quot ; code="100.1300" displayName="NEUTROPHILS # (AUTO)" /> <statusCode code="completed" /> < effectiveTime value="430274065287" /> <value unit=&quot ;T/MM3" xsi:type="PQ" value="7.8" /> < interpretationCode codeSystem="local" code="H" /> <referenceRange> <observationRange> < text>1.8-7.7</text> </observationRange> </ referenceRange> </observation> </component> < component> <observation moodCode="EVN" classCode="OBS "> <templateId root="2.16.840.1.686759.10.20.22.4.2& quot; /> <id nullFlavor="NA" /> <code codeSystem="local" code="100.1350" displayName=" LYMPHOCYTES # (AUTO)" /> <statusCode code="completed& quot; /> <effectiveTime value="514943743727" /> <value unit="T/MM3" xsi:type="PQ" value="3.0& quot; /> <interpretationCode codeSystem="local" code=& quot;N" /> <referenceRange> < observationRange> <text>1-4.8</text> </ observationRange> </referenceRange> </observation&gt ; </component> <component> <observationmoodCode= "EVN" classCode="OBS"> <templateId root=&quot ;2.16.840.1.120520.10.20.22.4.2" /> <id nullFlavor="NA& quot; /> <code codeSystem="local" code="100.1400& quot; displayName="MONOCYTES # (AUTO)" /> <statusCode code="completed" /> <effectiveTime value=" 089635532613" /> <value unit="T/MM3" xsi:type=& quot;PQ" value="0.9" /> <interpretationCode codeSystem="local" code="H" /> <referenceRange& gt; <observationRange> <text>0-0.8</text& gt; </observationRange> </referenceRange> </observation> </component> <component> &lt ;observation moodCode="EVN"classCode="OBS"> < templateId root="2.16.840.1.485158.10.20.22.4.2" /> < id nullFlavor="NA" /> <code codeSystem="local&quot ; code="100.1450" displayName="EOSINOPHILS # (AUTO)" /> <statusCode code="completed" /> < effectiveTime value="400471319799" /> <value unit="T/ MM3" xsi:type="PQ" value="0.4" /> < interpretationCode codeSystem="local" code="N" /> <referenceRange> <observationRange> < text>0-0.5</text> </observationRange> </ referenceRange> </observation> </component> < component> <observation moodCode="EVN" classCode=" OBS"> <templateId root="[id number]& quot; /> <idnullFlavor="NA" /> <code codeSystem="local" code="100.1500" displayName=" BASOPHILS # (AUTO)" /> <statusCode code="completed&quot ; /> <effectiveTime value="[id number]" /> <value unit="T/MM3" xsi:type="PQ" value="0.0&quot ; /> <interpretationCode codeSystem="local" code=" N" /> <referenceRange> <observationRange&gt ; <text>0-0.2</text> </observationRange& gt; </referenceRange> </observation> </ component> <component> <observation moodCode="EVN& quot; classCode="OBS"> <templateId root=" 2.16.840.1.401171.10.20.22.4.2" /> <id nullFlavor="NA& quot; /> <code codeSystem="local" code="100.1525& quot; displayName="IMMATURE GRANULOCYTE # (AUTO)" /> < statusCode code="completed" /> <effectiveTime value=" 196971344045" /> <value unit="T/MM3"xsi:type=&quot ;PQ" value="0.02" /> <interpretationCode codeSystem="local" code="N" /> < referenceRange> <observationRange> <text> 0.00-0.03</text> </observationRange> </ referenceRange> </observation> </component> </ organizer> </entry> <entry> <organizer moodCode="EVN " classCode="BATTERY"> <templateId root=" 2.16.840.1.728657.10.20.22.4.1" /> <id nullFlavor="NA&quot ; /> <code codeSystem="local" code="LINR" displayName="L160.0105" /> <statusCode code="completed " /> <component> <observation moodCode="EVN" classCode="OBS"> <templateId root=" 2.16.840.1.762404.10.20.22.4.2" /> <id nullFlavor="NA& quot; /> <code codeSystem="local" code="160.0107& quot; displayName="INR" /> <statusCode code=" completed" /> <effectiveTime value="973825309041" /> <value unit="" xsi:type="PQ" value=" 1.03" /> <interpretationCode codeSystem="local" code="N" /> <referenceRange> < observationRange> <text>0.76-1.04</text> </observationRange> </referenceRange> </ observation> </component> </organizer> </entry> & lt;entry> <organizer moodCode="EVN" classCode="BATTERY& quot;> <templateId root="2.16.840.1.738380.10.20.22.4.1" /& gt; <id nullFlavor="NA" /> <code codeSystem=" local" code="LPTT" displayName="L160.0110" /> & lt;statusCode code="completed" /> <component> &lt ;observation moodCode="EVN" classCode="OBS"> &lt ;templateId root="2.16.840.1.445696.10.20.22.4.2" /> < id nullFlavor="NA" /> <code codeSystem="local&quot ; code="160.0110" displayName="PTT" /> < statusCode code="completed" /> <effectiveTime value=& quot;028419220156" /> <value unit="SEC" xsi:type=& quot;PQ" value="36.1" /> <interpretationCode codeSystem="local" code="H" /> < referenceRange> <observationRange> <text>24-36& lt;/text> </observationRange> </referenceRange& gt; </observation> </component> </organizer> & lt;/entry> <entry> <organizer moodCode="EVN" classCode ="BATTERY"> <templateId root=" 2.16.840.1.578584.10.20.22.4.1" /> <id nullFlavor="NA" /&gt ; <code codeSystem="local" code="LCMP" displayName=& quot;L200.0020" /> <statusCode code="completed" /> <component> <observation moodCode="EVN" classCode=& quot;OBS"> <templateId root="2.16.840.1.510583.10.20.22.4.2& quot; /> <id nullFlavor="NA" /> <code codeSystem="local" code="200.0097" displayName="ICTERUS " /> <statusCode code="completed" /> & lt;effectiveTime value="196349774112" /> <value unit=& quot;" xsi:type="PQ" value="< 2" /> <interpretationCode codeSystem="local" code="N" /> <referenceRange> <observationRange> < text>0-7</text> </observationRange> </ referenceRange> </observation> </component> < component> <observation moodCode="EVN" classCode=" OBS"> <templateId root="2.16.840.1.437854.10.20.22.4.2& quot; /> <id nullFlavor="NA" /> <code codeSystem="local" code="200.0098" displayName=" HEMOLYSIS" /> <statusCode code="completed" /> <effectiveTime value="174325924961" /> <value unit="" xsi:type="PQ" value="< 15" /> <interpretationCode codeSystem="local" code="N" / > <referenceRange> <observationRange> <text>0-25</text> </observationRange> </referenceRange> </observation> </component> <component> <observation moodCode="EVN" classCode=& quot;OBS"> <templateId root=" 2.16.840.1.109216.10.20.22.4.2"/> <id nullFlavor="NA& quot; /> <code codeSystem="local"code="200.0099& quot; displayName="TURBIDITY" /> <statusCode code=&quot ;completed" /> <effectiveTime value="185581151516&quot ; /> <value unit="" xsi:type="PQ" value=&quot ;< 20" /> <interpretationCode codeSystem="local& quot; code="N" /> <referenceRange> < observationRange> <text>0-20</text> </ observationRange> </referenceRange> </observation&gt ; </component> <component> <observation moodCode=& quot;EVN" classCode="OBS"> <templateId root=" 2.16.840.1.150866.10.20.22.4.2" /> <id nullFlavor="NA& quot; /> <code codeSystem="local" code="200.0100& quot; displayName="SODIUM" /> <statusCode code=" completed" /> <effectiveTime value="625647484991" /> <value unit="MEQ/L" xsi:type="PQ" value=& quot;139" /> <interpretationCode codeSystem="local&quot ; code="N" /> <referenceRange> < observationRange> <text>134-144</text> </ observationRange> </referenceRange> </observation&gt ; </component> <component> <observation moodCode ="EVN" classCode="OBS"> <templateId root=& quot;2.16.840.1.433858.10.20.22.4.2" /> <id nullFlavor=&quot ;NA" /> <code codeSystem="local" code=" 200.0150" displayName="POTASSIUM" /> <statusCode code="completed" /> <effectiveTime value=" 094571081783" /> <value unit="MEQ/L" xsi:type=& quot;PQ" value="4.0" /> <interpretationCode codeSystem="local" code="N" /> <referenceRange&gt ; <observationRange> <text>3.6-5</text&gt ; </observationRange> </referenceRange> & lt;/observation> </component> <component> < observation moodCode="EVN" classCode="OBS"> < templateId root="2.16.840.1.836937.10..22.4.2"/> <id nullFlavor="NA" /> <code codeSystem="local" code="200.0200" displayName="CHLORIDE" /> < statusCode code="completed" /> <effectiveTime value=& quot;916712568609" /> <value unit="MEQ/L" xsi:type ="PQ" value="103" /> <interpretationCode codeSystem="local" code="N" /> < referenceRange> <observationRange> <text>98-107& lt;/text> </observationRange> </referenceRange& gt; </observation> </component><component> <observation moodCode="EVN" classCode="OBS"> < templateId root="2.16.840.1.470532.10.20.22.4.2" /> < id nullFlavor="NA" /> <code codeSystem="local&quot ; code="200.0250" displayName="CO2 - CARBON DIOXIDE" /> <statusCode code="completed" /> < effectiveTime value="558725163531" /> <value unit=&quot ;MEQ/L" xsi:type="PQ" value="28" /> < interpretationCode codeSystem="local" code="N" /> <referenceRange> <observationRange> < text>22-30</text> </observationRange> </ referenceRange> </observation> </component> < component> <observation moodCode="EVN" classCode="OBS" > <templateId root="2.16.840.1.498454.10.20.22.4.2" /& gt; <id nullFlavor="NA" /> <code codeSystem=& quot;local" code="200.0300" displayName="ANION GAP" /& gt; <statusCode code="completed" /> < effectiveTime value="043633567629" /> <value unit=&quot ;MEQ/L" xsi:type="PQ" value="8" /> < interpretationCode codeSystem="local" code="N" /> <referenceRange> <observationRange> < text>5-15</text> </observationRange> </ referenceRange> </observation> </component> < component> <observation moodCode="EVN" classCode=" OBS"> <templateId root="2.16.840.1.423433.10.20.22.4.2& quot; /> <id nullFlavor="NA" /> <code codeSystem="local" code="200.0350" displayName="BLOOD UREA NITROGEN" /> <statusCode code="completed" /& gt; <effectiveTime value="777828279127" /> &lt ;value unit="MG/DL" xsi:type="PQ" value="17.0" /& gt; <interpretationCode codeSystem="local" code="N" /& gt; <referenceRange> <observationRange> <text>7-17</text> </observationRange> </ referenceRange> </observation> </component> < component> <observation moodCode="EVN" classCode=" OBS"> <templateId root="2.16.840.1.257776.10.20.22.4.2& quot; /> <id nullFlavor="NA" /> <code codeSystem="local" code="200.0400" displayName=" CREATININE" /> <statusCode code="completed" /> <effectiveTime value="207537104290" /> < value unit="MG/DL" xsi:type="PQ" value="1.1" /&gt ; <interpretationCode codeSystem="local" code="N&quot ; /> <referenceRange> <observationRange> <text>0.7-1.2</text> </observationRange> </referenceRange> </observation> </component&gt ; <component> <observation moodCode="EVN" classCode="OBS"> <templateId root=" 2.16.840.1.959631.10.20.22.4.2" /> <id nullFlavor="NA& quot; /> <code codeSystem="local" code="200.0450& quot; displayName="BUN/CREATININE RATIO" /> < statusCode code="completed" /> <effectiveTime value=& quot;216267311955" /> <value unit="RATIO" xsi:type ="PQ" value="16" /> <interpretationCode codeSystem="local"code="N" /> <referenceRange > <observationRange> <text>6-26</text> </observationRange> </referenceRange> </ observation> </component> <component> < observation moodCode="EVN" classCode="OBS"> < templateId root="2.16.840.1.084310.10.20.22.4.2" /> < id nullFlavor="NA" /> <code codeSystem="local&quot ; code="200.0475" displayName="GLOMERULAR FILTRATION RATE" / > <statusCode code="completed" /> < effectiveTime value="276853725734" /> <value unit=&quot ;" xsi:type="PQ" value="58" /> < interpretationCode codeSystem="local" code="N" /> <referenceRange> <observationRange> < text /> </observationRange> </referenceRange> </observation> </component> <component> & lt;observation moodCode="EVN" classCode="OBS"> & lt;templateId root="2.16.840.1.960946.10.20.22.4.2" /> <id nullFlavor="NA" /> <code codeSystem="local" code="200.0500" displayName="GLUCOSE" /> < statusCode code="completed" /> <effectiveTime value=& quot;390119566248" /> <value unit="MG/DL" xsi:type ="PQ" value="99" /> <interpretationCode codeSystem="local" code="N" /> < referenceRange> <observationRange> <text> 65-110</text> </observationRange> </ referenceRange> </observation> </component> < component> <observation moodCode="EVN" classCode=" OBS"> <templateId root="2.16.840.1.702867.10.20.22.4.2& quot; /> <id nullFlavor="NA"/> <code codeSystem="local" code="200.0550" displayName=" OSMOLALITY,CALCULATED" /> <statusCode code="completed& quot; /> <effectiveTime value="296980120724" /> <value unit="MOSM/KG" xsi:type="PQ" value="270 " /> <interpretationCode codeSystem="local" code=& quot;N" /> <referenceRange> < observationRange> <text>261-280</text> </ observationRange> </referenceRange> </observation&gt ; </component> <component> <observation moodCode ="EVN" classCode="OBS"> <templateId root=& quot;2.16.840.1.871460.10.20.22.4.2" /> <id nullFlavor=&quot ;NA" /> <code codeSystem="local" code=" 200.0600" displayName="CALCIUM" /> <statusCode code=& quot;completed" /> <effectiveTime value="397090653374& quot; /> <value unit="MG/DL" xsi:type="PQ" value="9.9" /> <interpretationCode codeSystem=" local" code="N" /> <referenceRange> < observationRange> <text>8.4-10.2</text> & lt;/observationRange> </referenceRange> </ observation> </component> <component> < observation moodCode="EVN" classCode="OBS"> < templateId root="2.16.840.1.033330.10.20.22.4.2" /> < id nullFlavor="NA" /> <code codeSystem="local&quot ; code="200.0650" displayName="BILIRUBIN,TOTAL" /> <statusCode code="completed" /> <effectiveTime value="409179173079" /> <value unit="MG/DL" xsi:type= "PQ" value="0.70" /> <interpretationCode codeSystem="local" code="N" /> < referenceRange> <observationRange> <text> 0.20-1.30</text> </observationRange> </ referenceRange> </observation> </component> < component> <observation moodCode="EVN" classCode=" OBS"> <templateId root="2.16.840.1.375391.10.20.22.4.2& quot; /> <id nullFlavor="NA" /> <code codeSystem="local" code="200.0950" displayName=" ALKALINE PHOSPHATASE" /> <statusCode code="completed& quot; /> <effectiveTime value="589254946349" /> <value unit="U/L" xsi:type="PQ" value="81&quot ; /> <interpretationCode codeSystem="local" code=" N" /> <referenceRange> <observationRange&gt ; <text>38-126</text> </observationRange& gt; </referenceRange> </observation> </ component> <component> <observation moodCode="EVN& quot; classCode="OBS"> <templateId root=" 2.16.840.1.092398.10.20.22.4.2" /> <id nullFlavor="NA& quot; /> <code codeSystem="local" code="200.1000& quot; displayName="TOTAL PROTEIN" /> <statusCode code=& quot;completed" /> <effectiveTime value="789582205149& quot; /> <value unit="G/DL" xsi:type="PQ" value="7.3" /> <interpretationCode codeSystem=" local" code="N" /> <referenceRange> <observationRange> <text>6.3-8.2</text> </ observationRange> </referenceRange> </observation&gt ; </component> <component> <observationmoodCode= "EVN" classCode="OBS"> <templateId root=&quot ;2.16.840.1.464532.10..22.4.2" /> <id nullFlavor="NA& quot; /> <code codeSystem="local" code="200.1050& quot; displayName="ALBUMIN" /> <statusCode code=" completed" /> <effectiveTime value="271542160702" /> <value unit="G/DL" xsi:type="PQ" value=& quot;4.3" /> <interpretationCode codeSystem="local&quot ; code="N" /> <referenceRange> < observationRange> <text>3.5-5.0</text> < /observationRange> </referenceRange> </observation& gt; </component> <component> <observation moodCode=& quot;EVN" classCode="OBS"> <templateId root=" 2.16.840.1.543481.10.20.22.4.2" /> <id nullFlavor="NA&quot ; /> <code codeSystem="local" code="200.1100&quot ; displayName="GLOBULIN" /> <statusCode code=" completed" /> <effectiveTime value="133602879828" /> <value unit="G/DL" xsi:type="PQ" value=& quot;3.0" /> <interpretationCode codeSystem="local&quot ; code="N" /> <referenceRange> < observationRange> <text>2.4-3.6</text> & lt;/observationRange> </referenceRange> </ observation> </component> <component> < observation moodCode="EVN" classCode="OBS"> < templateId root="2.16.840.1.373805.10.20.22.4.2" /> < id nullFlavor="NA" /> <code codeSystem="local&quot ; code="200.1150" displayName="ALBUMIN/GLOBULIN RATIO" /&gt ; <statusCode code="completed" /> <effectiveTime value="584025699797" /> <value unit="RATIO" xsi:type="PQ" value="1.4" /> < interpretationCode codeSystem="local" code="N" /> <referenceRange> <observationRange> < text>1.1-2.2</text> </observationRange> </ referenceRange> </observation> </component> < component> <observation moodCode="EVN" classCode=" OBS"> <templateId root="2.16.840.1.338246.10.20.22.4.2& quot; /> <id nullFlavor="NA" /> <code codeSystem= "local" code="200.1200" displayName="AST (SGOT)" / > <statusCode code="completed" /> < effectiveTime value="933668718706" /> <value unit=&quot ;U/L" xsi:type="PQ" value="22" /> < interpretationCode codeSystem="local" code="N" /> <referenceRange> <observationRange> < text>14-36</text> </observationRange> </ referenceRange> </observation> </component> < component> <observation moodCode="EVN" classCode=" OBS"> <templateId root="2.16.840.1.219628.10.20.22.4.2& quot; /> <id nullFlavor="NA" /> <code codeSystem="local" code="200.1250" displayName="ALT ( SGPT)" /> <statusCode code="completed" /> <effectiveTime value="488163174665" /> <value unit="U/L" xsi:type="PQ" value="35" /> <interpretationCode codeSystem="local" code="N" /> <referenceRange> <observationRange> < text>9-52</text> </observationRange> </ referenceRange> </observation> </component> </ organizer> </entry> <entry> <organizer moodCode="EVN " classCode="BATTERY"> <templateId root=" 2.16.840.1.247608.10.20.22.4.1" /> <id nullFlavor="NA" /&gt ; <code codeSystem="local" code="LTSH" displayName=& quot;L200.3850" /> <statusCode code="completed" /> <component> <observation moodCode="EVN" classCode=& quot;OBS"> <templateId root="2.16.840.1.429683.10.20.22.4.2& quot; /> <id nullFlavor="NA" /> <code codeSystem="local" code="200.3850" displayName=" THYROID STIM HORMONE-TSH" /> <statusCode code=" completed" /> <effectiveTime value="571706284619" /> <value unit="MIU/L" xsi:type="PQ" value=& quot;1.84" /> <interpretationCode codeSystem="local& quot; code="N" /> <referenceRange> < observationRange> <text>0.47-4.68</text> </observationRange> </referenceRange> </observation& gt; </component> </organizer> </entry> <entry&gt ; <organizer moodCode="EVN" classCode="BATTERY"> <templateId root="2.16.840.1.374001.10.20.22.4.1" /> & lt;id nullFlavor="NA" /> <code codeSystem="local&quot ; code="LCBC" displayName="L100.0050" /> < statusCode code="completed" /> <component> < observation moodCode="EVN" classCode="OBS"> < templateId root="2.16.840.1.978178.10.20.22.4.2" /> < id nullFlavor="NA" /> <code codeSystem="local&quot ; code="100.0150" displayName="WBC - WHITE BLOOD COUNT" /&gt ; <statusCode code="completed" /> < effectiveTime value="020059347276" /> <value unit=&quot ;T/MM3" xsi:type="PQ" value="11.7" /> < interpretationCode codeSystem="local" code="H" /> <referenceRange> <observationRange> < text>4.5-11.0</text> </observationRange> < /referenceRange> </observation> </component> &lt ;component> <observation moodCode="EVN" classCode=" OBS"> <templateId root="2.16.840.1.735918.10.20.22.4.2& quot; /> <id nullFlavor="NA" /> <code codeSystem= "local" code="100.0250" displayName="RED BLOOD COUNT& quot; /> <statusCode code="completed" /> & lt;effectiveTime value="541891024393" /> <value unit=& quot;M/MM3" xsi:type="PQ" value="5.00" /> & lt;interpretationCode codeSystem="local" code="N" /> <referenceRange> <observationRange> & lt;text>4.00-5.20</text> </observationRange> </referenceRange></observation> </component> < component> <observation moodCode="EVN" classCode=" OBS"> <templateId root="2.16.840.1.277604.10.20.22.4.2& quot; /> <id nullFlavor="NA" /> <code codeSystem="local" code="100.0300" displayName="HGB - HEMOGLOBIN" /> <statusCode code="completed" /> <effectiveTime value="690577152467" /> < value unit="GM/DL" xsi:type="PQ" value="13.9" /&gt ; <interpretationCode codeSystem="local" code="N&quot ; /> <referenceRange> <observationRange> <text>12-16</text> </observationRange> </referenceRange> </observation></component> <component> <observation moodCode="EVN" classCode=& quot;OBS"> <templateId root=" 2.16.840.1.618500.10.20.22.4.2" /> <id nullFlavor="NA" /> <code codeSystem="local" code="100.0400" displayName="HCT - HEMATOCRIT" /> <statusCode code=& quot;completed" /> <effectiveTime value="424153570222& quot; /> <value unit="%" xsi:type="PQ&quot ; value="41.4" /> <interpretationCode codeSystem=" local" code="N" /> <referenceRange> < observationRange> <text>36-46</text> < /observationRange> </referenceRange> </observation& gt; </component> <component> <observation moodCode=& quot;EVN" classCode="OBS"> <templateId root=" 2.16.840.1.070495.10.20.22.4.2" /> <id nullFlavor="NA& quot; /> <code codeSystem="local" code="100.0550& quot; displayName="MEAN CORPUSCULAR VOLUME" /> < statusCode code="completed" /> <effectiveTime value=& quot;752054983767" /> <value unit="UM3" xsi:type=& quot;PQ" value="82.8" /> <interpretationCode codeSystem="local" code="N" /> < referenceRange> <observationRange> <text> 80-100</text> </observationRange> </referenceRange&gt ; </observation> </component> <component> <observation moodCode="EVN" classCode="OBS"> <templateId root="2.16.840.1.710600.10.20.22.4.2" /> <id nullFlavor="NA" /> <code codeSystem=" local" code="100.0600" displayName="MEAN CORPUSCULAR HGB& quot; /> <statusCode code="completed" /> & lt;effectiveTime value="437595882009" /> <value unit=& quot;UUG" xsi:type="PQ" value="27.8" /> &lt ;interpretationCode codeSystem="local" code="N" /> <referenceRange> <observationRange> <text>26- 34</text> </observationRange> </ referenceRange> </observation> </component> < component> <observation moodCode="EVN" classCode=" OBS"> <templateId root="2.16.840.1.669066.10.20.22.4.2& quot; /> <id nullFlavor="NA" /> <code codeSystem="local" code="100.0650" displayName="MEAN CORPUSCULAR HGB CONC([facility]" /> <statusCode code=" completed" /> <effectiveTime value="253670162623" /> <value unit="GM/DL" xsi:type="PQ" value=& quot;33.6" /> <interpretationCode codeSystem="local& quot; code="N" /> <referenceRange> < observationRange> <text>31-37</text> < /observationRange> </referenceRange> </observation& gt; </component> <component> <observation moodCode="EVN" classCode="OBS"> <templateId root="2.16.840.1.002629.10.20.22.4.2" /> <id nullFlavor ="NA" /> <code codeSystem="local" code=" 100.0750" displayName="RDW STANDARD DEVIATION" />< statusCode code="completed" /> <effectiveTime value=& quot;965103787027" /> <value unit="FL" xsi:type=& quot;PQ" value="41.5" /> <interpretationCode codeSystem="local" code="N" /> < referenceRange> <observationRange> <text> 36.9-50.2</text> </observationRange> </ referenceRange> </observation> </component> < component> <observation moodCode="EVN" classCode=" OBS"> <templateId root="2.16.840.1.888827.10.20.22.4.2& quot; /> <id nullFlavor="NA" /> <code codeSystem="local" code="100.0850" displayName="PLT - PLATELET COUNT" /> <statusCode code="completed" /& gt; <effectiveTime value="369659585901" /> &lt ;value unit="T/MM3" xsi:type="PQ" value="322" /&gt ; <interpretationCode codeSystem="local" code="N&quot ; /> <referenceRange> <observationRange> <text>130-400</text> </observationRange> </referenceRange> </observation> </component > <component> <observation moodCode="EVN" classCode="OBS"> <templateId root=" 2.16.840.1.437489.10.20.22.4.2" /> <id nullFlavor="NA& quot; /> <code codeSystem="local" code="100.0950& quot; displayName="MEAN PLATELET VOLUME" /> < statusCode code="completed"/> <effectiveTime value=& quot;175072041923" /> <value unit="UM3" xsi:type=& quot;PQ" value="9.4" /> <interpretationCode codeSystem="local" code="N" /> < referenceRange> <observationRange> <text> 9.4-12.4</text> </observationRange> </ referenceRange> </observation> </component> < component> <observation moodCode="EVN" classCode=" OBS"> <templateId root="2.16.840.1.530765.10.20.22.4.2& quot; /> <id nullFlavor="NA" /> <code codeSystem="local" code="100.1050" displayName=" NEUTROPHILS % (AUTO)" /> <statusCode code=" completed" /> <effectiveTime value="913440209946" /> <value unit="%" xsi:type="PQ" value=" 58.0" /> <interpretationCode codeSystem="local" code="N" /> <referenceRange> < observationRange> <text>33-66</text> < /observationRange> </referenceRange> </observation& gt; </component> <component><observation moodCode=&quot ;EVN" classCode="OBS"> <templateId root=" 2.16.840.1.014068.10.20.22.4.2" /> <id nullFlavor="NA& quot; /> <code codeSystem="local" code="100.1100" displayName="LYMPHOCYTES % (AUTO)" /> < statusCode code="completed" /> <effectiveTime value=& quot;271071087900" /> <value unit="%" xsi: type="PQ" value="30.8" /> < interpretationCode codeSystem="local" code="N" /> <referenceRange> <observationRange> <text& gt;23-45</text> </observationRange> </ referenceRange> </observation> </component> < component> <observation moodCode="EVN" classCode=" OBS"> <templateId root="2.16.840.1.055360.10.20.22.4.2& quot; /> <id nullFlavor="NA" /> <code codeSystem="local" code="100.1150" displayName=" MONOCYTES % (AUTO)" /> <statusCode code=" completed" /> <effectiveTime value="682499276411" /> <value unit="%" xsi:type="PQ" value="6.8" /> <interpretationCode codeSystem=" local" code="N" /> <referenceRange> <observationRange> <text>0-9.0</text> </observationRange> </referenceRange> </observation&gt ; </component> <component> <observation moodCode ="EVN" classCode="OBS"> <templateId root=& quot;2.16.840.1.546854.10.20.22.4.2" /> <id nullFlavor=&quot ;NA" /> <code codeSystem="local" code=" 100.1200" displayName="EOSINOPHILS % (AUTO)" /> <statusCode code="completed" /> <effectiveTime value="121884393521" /> <value unit="%& quot; xsi:type="PQ" value="3.7" /> < interpretationCode codeSystem="local" code="N" /> <referenceRange> <observationRange> < text>0-4</text> </observationRange> </ referenceRange> </observation> </component> < component> <observation moodCode="EVN" classCode=" OBS"> <templateId root="2.16.840.1.329355.10..22.4.2& quot; /> <id nullFlavor="NA" /> <code codeSystem="local" code="100.1250" displayName=" BASOPHILS % (AUTO)" /> <statusCode code=" completed" /> <effectiveTime value="777203002517" /> <value unit="%" xsi:type="PQ" value="0.5" /> <interpretationCode codeSystem=" local" code="N" /> <referenceRange> <observationRange> <text>0-2</text> < /observationRange> </referenceRange> </observation& gt; </component> <component> <observation moodCode=& quot;EVN" classCode="OBS"> <templateId root=" [id number]" /> <id nullFlavor="NA&quot ; /> <code codeSystem="local" code="100.1275&quot ; displayName="IMMATURE GRANULOCYTE % (AUTO)" /> & lt;statusCode code="completed" /> <effectiveTime value= "[id number]" /> <value unit="%" xsi :type="PQ" value="0.2" /> < interpretationCode codeSystem="local" code="N" /> <referenceRange> <observationRange> < text>0.0-0.5</text> </observationRange> </ referenceRange> </observation> </component> < component> <observation moodCode="EVN" classCode=" OBS"> <templateId root="2.16.840.1.294975.10.20.22.4.2& quot; /> <id nullFlavor="NA" /> <code codeSystem="local" code="100.1300" displayName=" NEUTROPHILS # (AUTO)" /> <statusCode code="completed& quot; /> <effectiveTime value="998147660912" /> <value unit="T/MM3" xsi:type="PQ" value="6.8& quot; /> <interpretationCode codeSystem="local" code=& quot;N" /> <referenceRange> <observationRange& gt; <text>1.8-7.7</text> </ observationRange> </referenceRange> </observation&gt ; </component> <component> <observation moodCode=& quot;EVN" classCode="OBS"> <templateId root=" 2.16.840.1.859293.10.20.22.4.2" /> <id nullFlavor="NA& quot; /> <code codeSystem="local" code="100.1350& quot; displayName="LYMPHOCYTES # (AUTO)" /> < statusCode code="completed" /> <effectiveTime value=& quot;847241351229" /> <value unit="T/MM3" xsi:type ="PQ" value="3.6" /> <interpretationCode codeSystem="local" code="N" /> < referenceRange> <observationRange> <text> 1-4.8</text> </observationRange> </referenceRange> </observation> </component> <component> <observation moodCode="EVN" classCode="OBS"> <templateIdroot="2.16.840.1.154497.10.20.22.4.2" /> <id nullFlavor="NA" /> <code codeSystem="local& quot; code="100.1400" displayName="MONOCYTES # (AUTO)" /&gt ; <statusCode code="completed" /> < effectiveTime value="054233521370" /> <value unit=&quot ;T/MM3" xsi:type="PQ" value="0.8" /> < interpretationCode codeSystem="local" code="N" /> <referenceRange> <observationRange><text>0-0.8& lt;/text> </observationRange> </referenceRange& gt; </observation> </component> <component> <observation moodCode="EVN" classCode="OBS"> <templateId root="2.16.840.1.555299.10.20.22.4.2" /> <id nullFlavor="NA" /> <code codeSystem=" local" code="100.1450" displayName="EOSINOPHILS # (AUTO)& quot; /> <statusCode code="completed" /> < effectiveTime value="307013039176" /> <value unit=&quot ;T/MM3" xsi:type="PQ" value="0.4" /> < interpretationCode codeSystem="local" code="N" /> & lt;referenceRange> <observationRange> <text& gt;0-0.5</text> </observationRange> </ referenceRange> </observation> </component> < component> <observation moodCode="EVN" classCode=" OBS"> <templateId root="2.16.840.1.351068.10.20.22.4.2& quot;/> <id nullFlavor="NA" /> <code codeSystem="local"code="100.1500" displayName=" BASOPHILS # (AUTO)" /> <statusCode code="completed&quot ; /> <effectiveTime value="583900878407" /> < value unit="T/MM3" xsi:type="PQ" value="0.1" /&gt ; <interpretationCode codeSystem="local" code="N&quot ; /> <referenceRange> <observationRange> <text>0-0.2</text> </observationRange> </referenceRange> </observation> </component& gt; <component> <observation moodCode="EVN" classCode="OBS"> <templateId root=" 2.16.840.1.089541.10.20.22.4.2" /> <id nullFlavor="NA& quot; /> <code codeSystem="local" code="100.1525& quot; displayName="IMMATURE GRANULOCYTE # (AUTO)" /> < statusCode code="completed" /> <effectiveTime value=& quot;155147232914" /> <value unit="T/MM3" xsi:type ="PQ" value="0.02" /> <interpretationCode codeSystem="local" code="N" /> < referenceRange> <observationRange> <text>0.00-0.03& lt;/text> </observationRange> </referenceRange& gt; </observation> </component> </organizer> & lt;/entry> <entry> <organizer moodCode="EVN" classCode ="BATTERY"> <templateId root=" 2.16.840.1.586841.10.20.22.4.1" /> <id nullFlavor="NA" /&gt ; <code codeSystem="local" code="LLACTATE" displayName="L2" /> <statusCode code="completed " /> <component> <observation moodCode="EVN& quot; classCode="OBS"> <templateId root=" 2.16.840.1.309103.10.20.22.4.2" /> <id nullFlavor="NA& quot; /> <code codeSystem="local" code="200& quot; displayName="LACTATE - LACTIC ACID, VENOUS" /> < statusCode code="completed" /> <effectiveTime value=& quot;522357228674" /> <value unit="MMOL/L" xsi: type="PQ" value="1.0" /> <interpretationCode codeSystem="local" code="N" /> < referenceRange> <observationRange> <text> 0.6-2.2</text> </observationRange> </ referenceRange> </observation> </component> </ organizer> </entry> <entry> <organizer moodCode="EVN " classCode="BATTERY"> <templateId root=" 2.16.840.1.542887.10.20.22.4.1" /> <id nullFlavor="NA&quot ; /> <code codeSystem="local" code="LCRP" displayName="L200.1860" /> <statusCode code="completed " /> <component> <observation moodCode="EVN& quot; classCode="OBS"> <templateId root=" 2.16.840.1.098439.10.20.22.4.2" /> <id nullFlavor="NA& quot; /> <code codeSystem="local" code="200.1860& quot; displayName="C-REACTIVE PROTEIN" /> <statusCode code="completed" /> <effectiveTime value="187686851850&quot ; /> <value unit="MG/L" xsi:type="PQ" value=& quot;7.9" /> <interpretationCode codeSystem="local&quot ; code="N" /> <referenceRange> < observationRange> <text>0-9</text> </ observationRange> </referenceRange> </observation&gt ; </component> </organizer> </entry> <entry> <organizer moodCode="EVN" classCode="BATTERY"> <templateId root="2.16.840.1.031825.10.20.22.4.1" /> < id nullFlavor="NA" /> <code codeSystem="local" code="LPROCALC" displayName="L200.8" /> < statusCode code="completed" /> <component> < observation moodCode="EVN" classCode="OBS"> < templateId root="2.16.840.1.665112.10.20.22.4.2" /> < id nullFlavor="NA" /> <code codeSystem="local" code=& quot;200.8" displayName="PROCALCITONIN" /> < statusCode code="completed" /> <effectiveTime value=& quot;911578791910" /> <value unit="NG/ML" xsi:type ="PQ" value="< 0.05" /> < interpretationCode codeSystem="local" code="N" /> <referenceRange> <observationRange> < text /> </observationRange> </referenceRange&gt ; </observation> </component> </organizer> &lt ;/entry> <entry> <organizer moodCode="EVN" classCode=& quot;BATTERY"> <templateId root=" 2.16.840.1.756111.10.20.22.4.1" /> <id nullFlavor="NA&quot ; /> <code codeSystem="local" code="LCMP" displayName="L200.0020" /> <statusCodecode="completed& quot; /> <component> <observation moodCode="EVN& quot; classCode="OBS"> <templateId root=" 2.16.840.1.343432.10.20.22.4.2" /> <id nullFlavor="NA& quot; /> <code codeSystem="local" code="200.0097& quot; displayName="ICTERUS" /> <statusCode code=" completed" /> <effectiveTime value="851491008329" /> <value unit="" xsi:type="PQ" value="& amp;lt; 2" /> <interpretationCode codeSystem="local& quot; code="N" /> <referenceRange> < observationRange> <text>0-7</text> </ observationRange> </referenceRange> </observation&gt ; </component> <component> <observation moodCode=& quot;EVN" classCode="OBS"> <templateId root=" 2.16.840.1.450376.10.20.22.4.2" /> <id nullFlavor="NA& quot; /> <code codeSystem="local" code="200.0098& quot; displayName="HEMOLYSIS" /> <statusCode code=&quot ;completed" /> <effectiveTime value="592971868724&quot ; /> <value unit="" xsi:type="PQ" value=&quot ;17" /> <interpretationCode codeSystem="local" code="N" /> <referenceRange> < observationRange> <text>0-25</text> </ observationRange> </referenceRange> </observation&gt ; </component> <component> <observation moodCode ="EVN" classCode="OBS"> <templateId root=& quot;2.16.840.1.041206.10.20.22.4.2" /> <id nullFlavor=&quot ;NA" /> <code codeSystem="local" code=" 200.0099" displayName="TURBIDITY" /> <statusCode code=& quot;completed" /> <effectiveTime value="577678038655& quot; /> <value unit="" xsi:type="PQ" value=& quot;< 20" /> <interpretationCode codeSystem=" local" code="N" /> <referenceRange> < observationRange> <text>0-20</text> </ observationRange> </referenceRange> </observation&gt ; </component> <component> <observation moodCode ="EVN" classCode="OBS"> <templateId root=& quot;2.16.840.1.352809.10.20.22.4.2" /> <id nullFlavor=&quot ;NA" /> <code codeSystem="local" code=" 200.0100" displayName="SODIUM" /> <statusCode code ="completed" /> <effectiveTime value="655264011303 " /> <value unit="MEQ/L" xsi:type="PQ" value="143" /> <interpretationCode codeSystem=" local" code="N" /> <referenceRange> <observationRange> <text>134-144</text> </observationRange> </referenceRange> </ observation> </component> <component> < observation moodCode="EVN" classCode="OBS"> < templateId root="2.16.840.1.277315.10.20.22.4.2" /> < id nullFlavor="NA" /> <code codeSystem="local&quot ; code="200.0150" displayName="POTASSIUM" /> &lt ;statusCode code="completed" /> <effectiveTime value=& quot;942601682395" /> <value unit="MEQ/L" xsi:type ="PQ" value="4.2" /> <interpretationCode codeSystem="local"code="N" /> <referenceRange > <observationRange> <text>3.6-5</text> </observationRange> </referenceRange> </ observation> </component> <component> < observation moodCode="EVN" classCode="OBS"> < templateId root="2.16.840.1.262512.10.20.22.4.2" /> < id nullFlavor="NA" /> <code codeSystem="local&quot ; code="200.0200" displayName="CHLORIDE" /> < statusCode code="completed" /> <effectiveTime value=& quot;857652538952" /> <value unit="MEQ/L" xsi:type ="PQ" value="106" /> <interpretationCode codeSystem="local" code="N" /> < referenceRange> <observationRange> <text> 98-107</text> </observationRange> </ referenceRange> </observation> </component> < component> <observation moodCode="EVN" classCode=" OBS"> <templateId root="2.16.840.1.432826.10.20.22.4.2& quot; /> <id nullFlavor="NA" /> <code codeSystem="local" code="200.0250" displayName="CO2 - CARBON DIOXIDE" /> <statusCode code="completed" /& gt; <effectiveTime value="420405633131" /> &lt ;value unit="MEQ/L" xsi:type="PQ" value="25" /&gt ; <interpretationCode codeSystem="local" code="N&quot ; /> <referenceRange> <observationRange> <text>22-30</text> </observationRange> </referenceRange> </observation> </component&gt ; <component> <observation moodCode="EVN" classCode ="OBS"> <templateId root=" 2.16.840.1.809676.10.20.22.4.2" /> <id nullFlavor="NA& quot; /> <code codeSystem="local" code="200.0300& quot; displayName="ANION GAP" /> <statusCode code=&quot ;completed" /> <effectiveTime value="910572227150" /> <value unit="MEQ/L" xsi:type="PQ" value="12& quot; /> <interpretationCode codeSystem="local" code=& quot;N" /> <referenceRange> < observationRange> <text>5-15</text> </ observationRange> </referenceRange> </observation&gt ; </component> <component> <observation moodCode ="EVN" classCode="OBS"> <templateId root=& quot;2.16.840.1.608986.10.20.22.4.2" /> <id nullFlavor=&quot ;NA" /> <code codeSystem="local" code=" 200.0350" displayName="BLOOD UREA NITROGEN" /> < statusCode code="completed" /> <effectiveTime value=& quot;581216739976" /> <value unit="MG/DL" xsi:type ="PQ" value="17.0" /> <interpretationCode codeSystem="local" code="N" /> < referenceRange> <observationRange> <text> 7-17</text> </observationRange> </ referenceRange> </observation> </component> < component> <observation moodCode="EVN" classCode=" OBS"> <templateId root="2.16.840.1.826864.10.20.22.4.2& quot; /> <id nullFlavor="NA" /> <code codeSystem="local" code="200.0400" displayName=" CREATININE" /> <statusCode code="completed" /> <effectiveTime value="257275271399" /> <value unit="MG/DL" xsi:type="PQ" value="0.9" /> <interpretationCode codeSystem="local" code="N" /&gt ; <referenceRange> <observationRange> <text>0.7-1.2</text> </observationRange> </referenceRange> </observation> </component> <component> <observation moodCode="EVN" classCode="OBS"> <templateId root=" 2.16.840.1.798613.10.20.22.4.2" /> <id nullFlavor="NA& quot; /> <code codeSystem="local" code="200.0450& quot; displayName="BUN/CREATININE RATIO" /> < statusCode code="completed" /> <effectiveTime value=& quot;018155529260" /> <value unit="RATIO" xsi:type ="PQ" value="19" /> < interpretationCodecodeSystem="local" code="N" /> <referenceRange> <observationRange> < text>6-26</text> </observationRange> </ referenceRange> </observation> </component> < component> <observation moodCode="EVN" classCode=" OBS"> <templateId root="2.16.840.1.939444.10..22.4.2& quot; /> <id nullFlavor="NA" /> <code codeSystem="local" code="200.0475" displayName=" GLOMERULAR FILTRATION RATE" /> <statusCode code=" completed" /> <effectiveTime value="122043786297" /> <value unit="" xsi:type="PQ" value="74&quot ; /> <interpretationCode codeSystem="local" code=" N" /> <referenceRange> <observationRange&gt ; <text /> </observationRange> </ referenceRange> </observation> </component> < component> <observation moodCode="EVN" classCode=" OBS"> <templateId root="2.16.840.1.898731.10.20.22.4.2& quot; /> <id nullFlavor="NA" /> <code codeSystem="local" code="200.0500" displayName="GLUCOSE " /> <statusCode code="completed" /> & lt;effectiveTime value="875951736320" /> <value unit=& quot;MG/DL" xsi:type="PQ" value="120" /> < interpretationCode codeSystem="local" code="H" /> <referenceRange> <observationRange> < text>65-110</text> </observationRange> </ referenceRange> </observation> </component> < component> <observation moodCode="EVN" classCode=" OBS"> <templateId root="2.16.840.1.164725.10.20.22.4.2& quot; /> <id nullFlavor="NA" /> <code codeSystem="local" code="200.0550" displayName=" OSMOLALITY,CALCULATED" /> <statusCode code="completed& quot; /> <effectiveTime value="694885181580" /> <value unit="MOSM/KG" xsi:type="PQ" value="278 " /> <interpretationCode codeSystem="local" code=& quot;N" /> <referenceRange> <observationRange> <text>261-280</text> </observationRange&gt ; </referenceRange> </observation> </ component> <component> <observation moodCode="EVN& quot; classCode="OBS"> <templateId root=" 2.16.840.1.614557.10.20.22.4.2" /> <id nullFlavor="NA& quot; /> <code codeSystem="local" code="200.0600& quot; displayName="CALCIUM" /> <statusCode code=" completed" /> <effectiveTime value="771126426801" /> <value unit="MG/DL" xsi:type="PQ" value=& quot;9.7" /> <interpretationCode codeSystem="local&quot ; code="N" /> <referenceRange> < observationRange> <text>8.4-10.2</text> </ observationRange> </referenceRange> </observation&gt ; </component> <component> <observation moodCode ="EVN" classCode="OBS"> <templateId root=& quot;2.16.840.1.090995.10.20.22.4.2" /> <id nullFlavor=&quot ;NA" /> <code codeSystem="local" code=" 200.0650" displayName="BILIRUBIN,TOTAL" /> < statusCode code="completed" /> <effectiveTime value=& quot;930602484003" /> <value unit="MG/DL" xsi:type ="PQ" value="0.70" /> <interpretationCode codeSystem="local" code="N" /> < referenceRange> <observationRange> <text> 0.20-1.30</text> </observationRange> </ referenceRange> </observation> </component> < component> <observation moodCode="EVN" classCode=" OBS"> <templateId root="2.16.840.1.657018.10.20.22.4.2& quot; /> <id nullFlavor="NA" /> <code codeSystem="local" code="200.0950" displayName=" ALKALINE PHOSPHATASE" /> <statusCode code="completed& quot; /> <effectiveTime value="362349861675" /> <value unit="U/L" xsi:type="PQ" value="86&quot ; /> <interpretationCode codeSystem="local" code="N&quot ; /> <referenceRange> <observationRange> <text>38-126</text> </observationRange> & lt;/referenceRange> </observation> </component> <component> <observation moodCode="EVN" classCode=& quot;OBS"> <templateId root=" 2.16.840.1.198081.10.20.22.4.2" /> <id nullFlavor="NA& quot; /> <code codeSystem="local" code="200.1000& quot; displayName="TOTAL PROTEIN" /> <statusCode code=& quot;completed" /> <effectiveTime value="025596972482& quot; /> <value unit="G/DL" xsi:type="PQ" value="7.7" /> <interpretationCode codeSystem=" local" code="N" /> <referenceRange> <observationRange> <text>6.3-8.2</text> </observationRange> </referenceRange> </ observation> </component> <component> < observation moodCode="EVN" classCode="OBS"> < templateId root="2.16.840.1.851933.10.20.22.4.2" /> < id nullFlavor="NA" /> <code codeSystem="local&quot ; code="200.1050" displayName="ALBUMIN" /> < statusCode code="completed" /> <effectiveTime value=& quot;440032926232" /> <value unit="G/DL" xsi:type= "PQ" value="4.5" /> <interpretationCode codeSystem="local" code="N" /> < referenceRange> <observationRange> <text> 3.5-5.0</text> </observationRange> </ referenceRange> </observation> </component> < component> <observation moodCode="EVN" classCode=" OBS"> <templateId root="2.16.840.1.967616.10.20.22.4.2& quot; /> <id nullFlavor="NA" /> <code codeSystem="local" code="200.1100" displayName=" GLOBULIN" /> <statusCode code="completed" /> <effectiveTime value="263091223452" /> < value unit="G/DL" xsi:type="PQ" value="3.2" /> <interpretationCode codeSystem="local" code="N" /& gt; <referenceRange> <observationRange> <text>2.4-3.6</text> </observationRange> & lt;/referenceRange> </observation> </component> <component> <observation moodCode="EVN" classCode=& quot;OBS"> <templateId root=" 2.16.840.1.991659.10.20.22.4.2" /> <id nullFlavor="NA" /& gt; <code codeSystem="local" code="200.1150" displayName="ALBUMIN/GLOBULIN RATIO" /> <statusCode code="completed" /> <effectiveTime value=" 395656745193" /> <value unit="RATIO" xsi:type=& quot;PQ" value="1.4" /> <interpretationCode codeSystem="local" code="N" /> < referenceRange> <observationRange> <text>1.1- 2.2</text> </observationRange> </ referenceRange> </observation> </component> < component> <observation moodCode="EVN" classCode=" OBS"> <templateId root="2.16.840.1.154715.10.20.22.4.2&quot ; /> <id nullFlavor="NA" /> <code codeSystem="local" code="200.1200" displayName="AST ( SGOT)" /> <statusCode code="completed" />< effectiveTime value="021815902987" /> <value unit=&quot ;U/L" xsi:type="PQ" value="23" /> < interpretationCode codeSystem="local" code="N" /> <referenceRange> <observationRange> <text& gt;14-36</text> </observationRange> </ referenceRange> </observation> </component> < component> <observation moodCode="EVN" classCode=" OBS"> <templateId root="2.16.840.1.858736.10.20.22.4.2& quot; /> <id nullFlavor="NA" /> <code codeSystem="local" code="200.1250" displayName="ALT ( SGPT)" /> <statusCode code="completed" /> <effectiveTime value="259267910055" /> <value unit="U/L" xsi:type="PQ" value="43" /> <interpretationCode codeSystem="local" code="N" /> <referenceRange> <observationRange> < text>9-52</text> </observationRange> </ referenceRange> </observation> </component> </ organizer> </entry> <entry> <organizer moodCode="EVN " classCode="BATTERY"> <templateId root=" 2.16.840.1.188694.10.20.22.4.1" /> <id nullFlavor="NA&quot ; /> <code codeSystem="local" code="LMAG" displayName="L200.2000" /> <statusCode code="completed " /> <component> <observation moodCode="EVN& quot; classCode="OBS"> <templateId root=" 2.16.840.1.866496.10.20.22.4.2" /> <id nullFlavor="NA& quot; /> <code codeSystem="local" code="200.2000& quot; displayName="MAGNESIUM" /> <statusCode code=&quot ;completed" /> <effectiveTime value="157686935819&quot ; /> <value unit="MG/DL" xsi:type="PQ" value= "1.9" /> <interpretationCode codeSystem="local& quot; code="N" /> <referenceRange> < observationRange> <text>1.6-2.3</text> & lt;/observationRange> </referenceRange> </ observation> </component> </organizer> </entry> & lt;entry> <organizer moodCode="EVN" classCode="BATTERY& quot;> <templateId root="2.16.840.1.859161.10.20.22.4.1" /& gt;<id nullFlavor="NA" /> <code codeSystem="local& quot; code="LCBC" displayName="L100.0050" /> < statusCode code="completed" /><component> < observation moodCode="EVN" classCode="OBS"> < templateId root="2.16.840.1.209618.10..22.4.2" /> < id nullFlavor="NA" /> <code codeSystem="local&quot ; code="100.0150" displayName="WBC - WHITE BLOOD COUNT" /&gt ; <statusCode code="completed" /> < effectiveTime value="711294873930" /> <value unit=&quot ;T/MM3" xsi:type="PQ" value="16.1" /> < interpretationCode codeSystem="local" code="H" /> <referenceRange> <observationRange> < text>4.5-11.0</text> </observationRange> </ referenceRange> </observation> </component> < component> <observation moodCode="EVN" classCode=" OBS"> <templateId root="2.16.840.1.698453.10.20.22.4.2& quot; /> <id nullFlavor="NA" /> <code codeSystem="local" code="100.0250" displayName="RED BLOOD COUNT" /> <statusCode code="completed" /&gt ; <effectiveTime value="794429086769" /> < value unit="M/MM3" xsi:type="PQ" value="5.34" /&gt ; <interpretationCode codeSystem="local" code="H&quot ; /> <referenceRange> <observationRange> < text>4.00-5.20</text> </observationRange> &lt ;/referenceRange> </observation> </component> & lt;component> <observation moodCode="EVN" classCode=&quot ;OBS"> <templateId root="2.16.840.1.216268.10.20.22.4.2 " /> <id nullFlavor="NA" /> <code codeSystem="local" code="100.0300" displayName="HGB - HEMOGLOBIN" /> <statusCode code="completed" /> <effectiveTime value="141375038482" /> < value unit="GM/DL" xsi:type="PQ" value="15.0" /&gt ; <interpretationCode codeSystem="local" code="N&quot ; /> <referenceRange> <observationRange> <text>12-16</text> </observationRange> </referenceRange> </observation> </component&gt ; <component> <observation moodCode="EVN" classCode="OBS"> <templateId root=" 2.16.840.1.938665.10.20.22.4.2" /> <id nullFlavor="NA& quot; /> <code codeSystem="local" code="100.0400& quot; displayName="HCT - HEMATOCRIT" /> <statusCode code="completed" /> <effectiveTime value=" 770435686194" /> <value unit="%" xsi:type=" PQ" value="44.4" /> <interpretationCode codeSystem=" local" code="N" /> <referenceRange> <observationRange> <text>36-46</text> </observationRange> </referenceRange> </ observation> </component> <component> < observation moodCode="EVN" classCode="OBS"> < templateId root="2.16.840.1.155636.10.20.22.4.2" /> < id nullFlavor="NA" /> <code codeSystem="local&quot ; code="100.0550" displayName="MEAN CORPUSCULAR VOLUME" /&gt ; <statusCode code="completed" /> < effectiveTime value="138489790336" /> <value unit=&quot ;UM3" xsi:type="PQ" value="83.1" /> < interpretationCode codeSystem="local" code="N" /> <referenceRange> <observationRange> < text>80-100</text> </observationRange> </ referenceRange> </observation> </component> < component> <observation moodCode="EVN" classCode=" OBS"> <templateId root="2.16.840.1.325017.10.20.22.4.2& quot; /> <id nullFlavor="NA" /> <code codeSystem="local" code="100.0600" displayName="MEAN CORPUSCULAR HGB" /> <statusCode code="completed" / > <effectiveTime value="633934021327" /> <value unit="UUG" xsi:type="PQ" value="28.1" /> <interpretationCode codeSystem="local" code="N" /&gt ; <referenceRange> <observationRange> <text>26-34</text> </observationRange> </referenceRange> </observation> </component> <component> <observation moodCode="EVN" classCode= "OBS"> <templateId root=" 216.840.1.210748.10.20.22.4.2" /> <id nullFlavor="NA& quot; /> <code codeSystem="local" code="100.0650& quot; displayName="MEAN CORPUSCULAR HGB CONC([facility]" /> < statusCode code="completed" /> <effectiveTime value=& quot;260228969536" /> <value unit="GM/DL" xsi:type ="PQ" value="33.8" /> <interpretationCode codeSystem="local" code="N" /> < referenceRange> <observationRange> <text>31-37</ text> </observationRange> </referenceRange> </observation> </component> <component> <observation moodCode="EVN" classCode="OBS"> <templateId root="2.16.840.1.993986.10.20.22.4.2" /> <id nullFlavor="NA" /> <code codeSystem=" local" code="100.0750" displayName="RDW STANDARD DEVIATION& quot; /> <statusCode code="completed" /> & lt;effectiveTime value="332937113287" /> <value unit=& quot;FL" xsi:type="PQ" value="42.0" /> < interpretationCode codeSystem="local" code="N" /> <referenceRange> <observationRange> <text >36.9-50.2</text> </observationRange> </ referenceRange> </observation> </component> < component> <observation moodCode="EVN" classCode=" OBS"> <templateId root="2.16.840.1.075663.10.20.22.4.2& quot; /> <id nullFlavor="NA" /> <code codeSystem="local" code="100.0850" displayName="PLT - PLATELET COUNT" /> <statusCode code="completed" /& gt; <effectiveTime value="[id number]" /> &lt ;value unit="T/MM3" xsi:type="PQ" value="313" /&gt ; <interpretationCode codeSystem="local" code="N" /&gt ; <referenceRange> <observationRange> <text>130-400</text> </observationRange> </ referenceRange> </observation> </component> < component> <observation moodCode="EVN" classCode=" OBS"> <templateId root="[id number]& quot; /><id nullFlavor="NA" /> <code codeSystem=& quot;local" code="100.0950" displayName="MEAN PLATELET VOLUME" /> <statusCode code="completed" /> <effectiveTime value="989072880072" /> < valueunit="UM3" xsi:type="PQ" value="9.1" /> <interpretationCode codeSystem="local" code="L" / > <referenceRange><observationRange> < text>9.4-12.4</text> </observationRange> < /referenceRange> </observation> </component> </ organizer> </entry> <entry> <organizer moodCode="EVN " classCode="BATTERY"> <templateId root=" 2.16.840.1.370817.10.20.22.4.1" /> <id nullFlavor="NA&quot ; /> <code codeSystem="local" code="LDIFFM" displayName="L100.0105" /> <statusCode code="completed " /><component> <observation moodCode="EVN" classCode="OBS"> <templateId root=" 2.16.840.1.549040.10.20.22.4.2" /> <id nullFlavor="NA& quot; /> <code codeSystem="local" code="100.1650& quot; displayName="NEUTROPHILS % (MANUAL)" /> < statusCode code="completed" /> <effectiveTime value=& quot;783313043154" /> <value unit="%" xsi: type="PQ" value="67.0" /> < interpretationCode codeSystem="local" code="H" /> <referenceRange> <observationRange> < text>33-66</text> </observationRange> </ referenceRange> </observation> </component> < component> <observation moodCode="EVN" classCode=" OBS"> <templateId root="2.16.840.1.968534.10.20.22.4.2& quot; /> <id nullFlavor="NA" /> <code codeSystem="local" code="100.1850" displayName=" LYMPHOCYTES % (MANUAL)" /> <statusCode code=" completed" /> <effectiveTime value="779167845796" /> <value unit="%" xsi:type="PQ" value="26.0" /> <interpretationCode codeSystem=" local" code="N" /> <referenceRange> <observationRange> <text>23-45</text> </observationRange> </referenceRange> </observation&gt ; </component> <component> <observation moodCode ="EVN" classCode="OBS"> <templateId root=& quot;2.16.840.1.136922.10.20.22.4.2" /> <id nullFlavor=&quot ;NA" /> <code codeSystem="local" code=" 100.1950" displayName="MONOCYTES % (MANUAL)" /> <statusCode code="completed" /><effectiveTime value=&quot ;152080930206" /> <value unit="%"xsi:type= "PQ" value="6.0" /> <interpretationCode codeSystem="local" code="N" /> < referenceRange> <observationRange> <text> 0-9.0</text> </observationRange> </ referenceRange> </observation> </component> < component> <observation moodCode="EVN" classCode=" OBS"> <templateId root="2.16.840.1.300464.10.20.22.4.2& quot; /> <id nullFlavor="NA" /> <code codeSystem ="local" code="100.2049" displayName="EOSINOPHILS & #37; (MANUAL)" /> <statusCode code="completed" /& gt; <effectiveTime value="100085022009" /> &lt ;value unit="%" xsi:type="PQ" value="1.0" /> <interpretationCode codeSystem="local" code="N& quot; /> <referenceRange> <observationRange> <text>0-4</text> </observationRange> </referenceRange> </observation> </component> <component> <observation moodCode="EVN" classCode="OBS"> <templateId root=" 2.16.840.1.652662.10.20.22.4.2" /> <id nullFlavor="NA& quot; /> <codecodeSystem="local" code="100.2650& quot; displayName="NEUTROPHILS # (MANUAL)" /> < statusCode code="completed" /> <effectiveTime value=& quot;599059524167" /> <value unit="T/MM3" xsi:type ="PQ" value="10.8" /> <interpretationCode codeSystem="local" code="H"/> <referenceRange > <observationRange> <text>1.8-7.7</ text> </observationRange> </referenceRange> </observation> </component> <component> <observation moodCode="EVN" classCode="OBS"> <templateId root="2.16.840.1.418703.10.20.22.4.2" /> <id nullFlavor="NA" /> <code codeSystem=" local" code="100.2700" displayName="LYMPHOCYTES # (MANUAL)& quot; /> <statusCode code="completed" /> & lt;effectiveTime value="246720408907" /> <value unit=& quot;T/MM3" xsi:type="PQ" value="4.2" /> & lt;interpretationCode codeSystem="local" code="N" /> <referenceRange> <observationRange> & lt;text>1-4.8</text> </observationRange> </ referenceRange> </observation></component> < component> <observation moodCode="EVN" classCode=" OBS"> <templateId root="2.16.840.1.627465.10.20.22.4.2& quot; /> <id nullFlavor="NA" /> <code codeSystem="local" code="100.2750" displayName=" MONOCYTES # (MANUAL)" /> <statusCode code="completed& quot; /> <effectiveTime value="847031021446" /> <value unit="T/MM3" xsi:type="PQ" value="1.0& quot; /> <interpretationCode codeSystem="local" code=& quot;H" /> <referenceRange> <observationRange&gt ; <text>0-0.8</text> </observationRange& gt; </referenceRange> </observation> </ component> <component> <observation moodCode="EVN" classCode="OBS"> <templateId root=" 2.16.840.1.562203.10.20.22.4.2" /> <id nullFlavor="NA& quot; /> <code codeSystem="local" code="100.2800& quot; displayName="EOSINOPHILS # (MANUAL)" /> < statusCode code="completed" /> <effectiveTime value=& quot;441869759355" /> <value unit="T/MM3" xsi:type ="PQ" value="0.2" /> <interpretationCode codeSystem="local" code="N" /> < referenceRange> <observationRange> <text> 0-0.5</text> </observationRange></referenceRange> </observation> </component> <component> & lt;observation moodCode="EVN" classCode="OBS"> & lt;templateId root="2.16.840.1.343585.10.20.22.4.2" /> &lt ;id nullFlavor="NA" /> <code codeSystem="local&quot ; code="100.4595" displayName="RBC MORPHOLOGY" /> <statusCode code="completed" /> < effectiveTimevalue="862759104847" /> <value unit=" " xsi:type="PQ" value="NORMAL" /> < interpretationCode codeSystem="local" code="N" /> <referenceRange> <observationRange> < text /> </observationRange> </referenceRange&gt ; </observation> </component> </organizer> &lt ;/entry> <entry> <organizer moodCode="EVN" classCode=& quot;BATTERY"> <templateId root=" 2.16.840.1.498133.10.20.22.4.1" /> <id nullFlavor="NA&quot ; /> <code codeSystem="local" code="LCBC" displayName="L100.0050" /> <statusCode code="completed " /> <component> <observation moodCode="EVN& quot;classCode="OBS"> <templateId root=" 2.16.840.1.615720.10.20.22.4.2" /> <id nullFlavor="NA& quot; /> <code codeSystem="local" code="100.0150& quot; displayName="WBC - WHITE BLOOD COUNT" /> < statusCode code="completed" /> <effectiveTime value=& quot;782855492602" /> <value unit="T/MM3" xsi:type= "PQ" value="10.6" /> <interpretationCode codeSystem= "local" code="N" /> <referenceRange> <observationRange> <text>4.5-11.0</text> </observationRange> </referenceRange> </ observation> </component> <component> < observation moodCode="EVN" classCode="OBS"> < templateId root="2.16.840.1.985443.10.20.22.4.2" /><id nullFlavor="NA" /> <code codeSystem="local" code="100.0250" displayName="RED BLOOD COUNT" /> <statusCode code="completed" /> <effectiveTime value="638730795867" /> <value unit="M/MM3" xsi:type="PQ" value="6.12" /> < interpretationCode codeSystem="local" code="H" /> <referenceRange> <observationRange> < text>4.00-5.20</text> </observationRange> &lt ;/referenceRange> </observation> </component> & lt;component> <observation moodCode="EVN" classCode=&quot ;OBS"><templateId root="2.16.840.1.563760.10.20.22.4.2" /& gt; <id nullFlavor="NA" /> <code codeSystem ="local" code="100.0300" displayName="HGB - HEMOGLOBIN& quot; /> <statusCode code="completed" />< effectiveTime value="021986322982" /> <value unit=&quot ;GM/DL" xsi:type="PQ" value="17.1" /> < interpretationCode codeSystem="local" code="H" /> <referenceRange> <observationRange> < text>12-16</text> </observationRange> </ referenceRange> </observation> </component> < component> <observation moodCode="EVN" classCode=" OBS"> <templateId root="2.16.840.1.090797.10.20.22.4.2& quot; /> <id nullFlavor="NA" /> <code codeSystem="local" code="100.0400" displayName="HCT - HEMATOCRIT" /> <statusCode code="completed" /> <effectiveTime value="250263831448" /> < value unit="%" xsi:type="PQ" value="47.3" /> <interpretationCode codeSystem="local" code="H& quot; /> <referenceRange> <observationRange> <text>36-46</text> </observationRange&gt ; </referenceRange> </observation> </ component> <component> <observation moodCode="EVN& quot; classCode="OBS"> <templateId root=" 2.16.840.1.601071.10.20.22.4.2" /> <id nullFlavor="NA& quot; /> <code codeSystem="local" code="100.0550& quot; displayName="MEAN CORPUSCULAR VOLUME" /> <statusCode code="completed" /> <effectiveTime value=" 713679360590" /> <value unit="UM3" xsi:type=" PQ" value="77.3"/> <interpretationCode codeSystem= "local" code="L" /><referenceRange> < observationRange> <text>80-100</text> &lt ;/observationRange> </referenceRange> </observation& gt; </component> <component> <observation moodCode="EVN" classCode="OBS"> <templateId root="2.16.840.1.480776.10.20.22.4.2" /> <id nullFlavor ="NA" /> <code codeSystem="local" code=" 100.0600" displayName="MEAN CORPUSCULAR HGB" /> < statusCode code="completed" /> <effectiveTime value=& quot;661544199314" /><value unit="UUG" xsi:type="PQ& quot; value="27.9" /> <interpretationCode codeSystem=& quot;local" code="N" /> <referenceRange> <observationRange> <text>26-34</text> </observationRange> </referenceRange> </ observation> </component> <component> < observation moodCode="EVN" classCode="OBS"> < templateId root="2.16.840.1.259877.10.20.22.4.2" /> < id nullFlavor="NA" /> <code codeSystem="local&quot ; code="100.0650" displayName="MEAN CORPUSCULAR HGB CONC([facility]& quot; /> <statusCode code="completed" /> & lt;effectiveTime value="273794840072" /> <value unit=& quot;GM/DL" xsi:type="PQ" value="36.2" /> & lt;interpretationCode codeSystem="local" code="N" /> <referenceRange> <observationRange> & lt;text>31-37</text> </observationRange> < /referenceRange> </observation> </component> &lt ;component> <observation moodCode="EVN" classCode=" OBS"> <templateId root="2.16.840.1.611636.10.20.22.4.2& quot; /> <id nullFlavor="NA" /> <code codeSystem="local" code="100.0750" displayName="RDW STANDARD DEVIATION" /> <statusCode code="completed&quot ; /> <effectiveTime value="673183431159" /> < value unit="FL" xsi:type="PQ" value="36.8" /> <interpretationCode codeSystem="local" code="L" /> <referenceRange> <observationRange> <text>36.9-50.2</text> </observationRange> </referenceRange> </observation> </ component> <component> <observation moodCode="EVN& quot; classCode="OBS"> <templateId root=" 2.16.840.1.437021.10.20.22.4.2" /> <id nullFlavor="NA& quot; /> <code codeSystem="local" code="100.0850" displayName="PLT - PLATELET COUNT" /> <statusCode code= "completed" /> <effectiveTimevalue="964646336469& quot; /> <value unit="T/MM3" xsi:type="PQ" value="339" /> <interpretationCode codeSystem=" local" code="N" /> <referenceRange> <observationRange> <text>130-400</text> </observationRange> </referenceRange> </ observation> </component> <component> < observation moodCode="EVN" classCode="OBS"> < templateId root="2.16.840.1.396253.10.20.22.4.2" /> < id nullFlavor="NA" /> <code codeSystem="local&quot ; code="100.0950" displayName="MEAN PLATELET VOLUME" /> <statusCode code="completed" /> <effectiveTime value="911349450079" /> <value unit="UM3" xsi :type="PQ" value="8.9" /> < interpretationCode codeSystem="local" code="L" /> < referenceRange> <observationRange> <text> 9.4-12.4</text> </observationRange> </ referenceRange> </observation> </component> < component> <observation moodCode="EVN" classCode=" OBS"> <templateId root="2.16.840.1.199151.10.20.22.4.2& quot; /> <id nullFlavor="NA" /> <code codeSystem="local" code="100.1050" displayName=" NEUTROPHILS % (AUTO)" /> <statusCode code=" completed" /> <effectiveTime value="813195226116" /> <value unit="%" xsi:type="PQ" value="65.1" /> <interpretationCode codeSystem=" local" code="N" /> <referenceRange> <observationRange> <text>33-66</text> </ observationRange> </referenceRange> </observation&gt ; </component> <component> <observation moodCode ="EVN" classCode="OBS"> <templateId root=& quot;2.16.840.1.478088.10.20.22.4.2" /> <id nullFlavor="NA& quot; /> <code codeSystem="local" code="100.1100& quot; displayName="LYMPHOCYTES % (AUTO)" /> < statusCode code="completed" /> <effectiveTime value=& quot;458036590442" /> <value unit="%" xsi:type=& quot;PQ" value="23.1" /> <interpretationCode codeSystem="local" code="N" /> < referenceRange> <observationRange> <text> 23-45</text> </observationRange> </ referenceRange> </observation> </component> < component> <observation moodCode="EVN" classCode=" OBS"> <templateId root="2.16.840.1.833578.10.20.22.4.2& quot; /> <idnullFlavor="NA" /> <code codeSystem="local" code="100.1150" displayName=" MONOCYTES % (AUTO)" /> <statusCode code=" completed" /> <effectiveTime value="095419550811" /> <value unit="%" xsi:type="PQ" value="6.7" /> <interpretationCode codeSystem=" local" code="N" /> <referenceRange> < observationRange> <text>0-9.0</text> < /observationRange> </referenceRange> </observation& gt; </component> <component> <observation moodCode="EVN" classCode="OBS"> <templateId root=& quot;2.16.840.1.630663.10.20.22.4.2" /> <id nullFlavor=&quot ;NA" /> <code codeSystem="local" code=" 100.1200" displayName="EOSINOPHILS % (AUTO)" /> <statusCode code="completed"/> <effectiveTime value="738424507929" /> <value unit="%& quot; xsi:type="PQ" value="4.3" /> < interpretationCode codeSystem="local" code="H" /> <referenceRange> <observationRange> < text>0-4</text> </observationRange> </ referenceRange> </observation> </component> < component> <observation moodCode="EVN" classCode=" OBS"> <templateId root="2.16.840.1.803941.10.20.22.4.2& quot; /> <id nullFlavor="NA"/> <code codeSystem="local" code="100.1250" displayName=" BASOPHILS % (AUTO)" /> <statusCode code=" completed" /><effectiveTime value="845134084704" /> <value unit="%"xsi:type="PQ" value=" 0.5" /> <interpretationCode codeSystem="local" code="N" /> <referenceRange> < observationRange> <text>0-2</text> </ observationRange> </referenceRange> </observation&gt ; </component> <component> <observation moodCode ="EVN" classCode="OBS"> <templateId root=& quot;2.16.840.1.660061.10.20.22.4.2" /> <id nullFlavor=&quot ;NA" /><code codeSystem="local" code="100.1275" displayName="IMMATURE GRANULOCYTE % (AUTO)" /> &lt ;statusCode code="completed" /> <effectiveTime value=& quot;150459307263" /> <value unit="%" xsi: type="PQ" value="0.3" /> <interpretationCode codeSystem="local" code="N" /> < referenceRange> <observationRange> <text> 0.0-0.5</text> </observationRange> </ referenceRange> </observation> </component> < component> <observation moodCode="EVN" classCode=" OBS"> <templateId root="2.16.840.1.064513.10.20.22.4.2& quot; /> <id nullFlavor="NA" /><code codeSystem=& quot;local" code="100.1300" displayName="NEUTROPHILS # (AUTO )" /> <statusCode code="completed" /> <effectiveTime value="410476923452" /> <value unit=& quot;T/MM3" xsi:type="PQ" value="6.9" /> & lt;interpretationCode codeSystem="local" code="N" /> <referenceRange> <observationRange> & lt;text>1.8-7.7</text> </observationRange> & lt;/referenceRange> </observation> </component> < component> <observation moodCode="EVN" classCode=" OBS"> <templateId root="2.16.840.1.779029.10.20.22.4.2& quot; /> <id nullFlavor="NA" /> <code codeSystem="local" code="100.1350" displayName=" LYMPHOCYTES # (AUTO)" /> <statusCode code="completed" /&gt ; <effectiveTime value="429653487145" /> < value unit="T/MM3" xsi:type="PQ" value="2.4"/> <interpretationCode codeSystem="local" code="N&quot ; /><referenceRange> <observationRange> & lt;text>1-4.8</text> </observationRange> < /referenceRange> </observation> </component> < component> <observation moodCode="EVN" classCode=" OBS"> <templateId root="2.16.840.1.521527.10.20.22.4.2& quot; /> <id nullFlavor="NA" /> <code codeSystem="local" code="100.1400" displayName=" MONOCYTES # (AUTO)" /> <statusCode code="completed&quot ; /> <effectiveTime value="819718833498" /> <value unit="T/MM3" xsi:type="PQ" value="0.7&quot ; /> <interpretationCode codeSystem="local" code=" N" /> <referenceRange> <observationRange> <text>0-0.8</text> </observationRange&gt ; </referenceRange> </observation> </ component> <component> <observation moodCode="EVN&quot ; classCode="OBS"> <templateId root=" 2.16.840.1.861601.10.20.22.4.2" /> <id nullFlavor="NA& quot; /> <code codeSystem="local" code="100.1450& quot; displayName="EOSINOPHILS # (AUTO)" /> < statusCode code="completed" /> <effectiveTime value=& quot;296699754761" /> <value unit="T/MM3" xsi:type ="PQ" value="0.5" /> <interpretationCode codeSystem="local" code="N" /> < referenceRange> <observationRange> <text> 0-0.5</text> </observationRange></referenceRange> </observation> </component> <component> & lt;observation moodCode="EVN" classCode="OBS"> & lt;templateId root="2.16.840.1.096589.10.20.22.4.2" /> &lt ;id nullFlavor="NA" /> <code codeSystem="local&quot ; code="100.1500" displayName="BASOPHILS# (AUTO)" /> <statusCode code="completed" /> < effectiveTime value="011966693463" /> <value unit=&quot ;T/MM3" xsi:type="PQ" value="0.1" /> < interpretationCode codeSystem="local" code="N" /> <referenceRange> <observationRange> < text>0-0.2</text> </observationRange> </ referenceRange> </observation> </component> < component> <observation moodCode="EVN" classCode=" OBS"> <templateId root="2.16.840.1.991814.10.20.22.4.2& quot; /> <id nullFlavor="NA" /> <code codeSystem="local" code="100.1525" displayName=" IMMATURE GRANULOCYTE # (AUTO)" /> <statusCode code=" completed" /> <effectiveTime value="398927900497" /> <value unit="T/MM3" xsi:type="PQ" value=& quot;0.03" /> <interpretationCode codeSystem="local& quot; code="N"/> <referenceRange> < observationRange> <text>0.00-0.03</text> </observationRange> </referenceRange> </ observation> </component> </organizer> </entry> & lt;entry> <organizer moodCode="EVN" classCode="BATTERY& quot;> <templateId root="2.16.840.1.024905.10.20.22.4.1" /& gt; <id nullFlavor="NA" /> <codecodeSystem=" local" code="LLDH" displayName="L200.1855" /> & lt;statusCode code="completed" /> <component> &lt ;observation moodCode="EVN" classCode="OBS"> &lt ;templateId root="2.16.840.1.763798.10..22.4.2" /> < id nullFlavor="NA" /> <code codeSystem="local&quot ; code="200.1855" displayName="LDH" /> < statusCode code="completed" /> <effectiveTime value=& quot;929492727287" /> <value unit="U/L" xsi:type="PQ& quot; value="587" /> <interpretationCode codeSystem=& quot;local" code="N" /> <referenceRange> <observationRange> <text>313-418</text> </observationRange> </referenceRange> </ observation> </component> </organizer> </entry> & lt;entry> <organizer moodCode="EVN" classCode="BATTERY& quot;> <templateId root="2.16.840.1.986696.10.20.22.4.1" /& gt; <id nullFlavor="NA" /> <code codeSystem=" local" code="LCBC" displayName="L100.0050" /> & lt;statusCode code="completed" /> <component> &lt ;observation moodCode="EVN" classCode="OBS"> &lt ;templateId root="2.16.840.1.985231.10.20.22.4.2" /> < id nullFlavor="NA" /> <code codeSystem="local&quot ; code="100.0150" displayName="WBC - WHITE BLOOD COUNT" /&gt ; <statusCode code="completed" /> < effectiveTime value="512574043636" /> <value unit=&quot ;T/MM3" xsi:type="PQ" value="10.8" /> < interpretationCodecodeSystem="local" code="N" /> <referenceRange> <observationRange> < text>4.5-11.0</text> </observationRange> < /referenceRange> </observation> </component> &lt ;component> <observation moodCode="EVN" classCode=" OBS"> <templateId root="2.16.840.1.660548.10.20.22.4.2& quot; /> <id nullFlavor="NA" /> <code codeSystem="local" code="100.0250" displayName="RED BLOOD COUNT" /> <statusCode code="completed" /&gt ; <effectiveTime value="136676341559" /> < value unit="M/MM3" xsi:type="PQ" value="5.47" /&gt ; <interpretationCode codeSystem="local" code="H&quot ; /> <referenceRange> <observationRange> <text>4.00-5.20</text> </observationRange> </referenceRange> </observation> </component& gt; <component> <observation moodCode="EVN" classCode="OBS"> <templateId root=" 2.16.840.1.905843.10.20.22.4.2" /> <id nullFlavor="NA& quot; /> <code codeSystem="local" code="100.0300& quot; displayName="HGB - HEMOGLOBIN" /> <statusCode code="completed" /> <effectiveTime value=" 624459802849" /> <value unit="GM/DL" xsi:type=& quot;PQ" value="15.3" /> <interpretationCode codeSystem="local" code="N" /> < referenceRange> <observationRange> <text> 12-16</text> </observationRange> </ referenceRange> </observation> </component> < component> <observation moodCode="EVN" classCode=" OBS"> <templateId root="2.16.840.1.377357.10.20.22.4.2& quot; /> <id nullFlavor="NA" /> <code codeSystem="local" code="100.0400" displayName="HCT - HEMATOCRIT" /> <statusCode code="completed" /> <effectiveTime value="384341718068" /> < value unit="%" xsi:type="PQ" value="45.4" /> <interpretationCode codeSystem="local" code="N& quot; /> <referenceRange> <observationRange> <text>36-46</text> </observationRange> </referenceRange> </observation> </component& gt; <component> <observation moodCode="EVN" classCode="OBS"> <templateId root=" 2.16.840.1.341789.10..22.4.2" /> <id nullFlavor="NA" / > <code codeSystem="local" code="100.0550" displayName="MEAN CORPUSCULAR VOLUME" /> <statusCode code="completed" /> <effectiveTime value=" 715264681645" /> <value unit="UM3" xsi:type=" PQ" value="83.0" /> <interpretationCode codeSystem ="local" code="N" /> <referenceRange> <observationRange> <text>80-100</text> </observationRange> </referenceRange> </ observation> </component> <component> < observation moodCode="EVN" classCode="OBS"> < templateId root="2.16.840.1.730644.10.20.22.4.2" /> < id nullFlavor="NA" /> <code codeSystem="local&quot ; code="100.0600" displayName="MEAN CORPUSCULAR HGB" /> <statusCode code="completed" /> < effectiveTime value="097836005960" /> <value unit=&quot ;UUG" xsi:type="PQ" value="28.0" /> < interpretationCode codeSystem="local" code="N" /> <referenceRange> <observationRange> < text>26-34</text> </observationRange> </ referenceRange> </observation> </component> < component> <observation moodCode="EVN" classCode="OBS& quot;> <templateId root="2.16.840.1.711667.10.20.22.4.2&quot ; /> <id nullFlavor="NA" /> <code codeSystem="local" code="100.0650" displayName="MEAN CORPUSCULAR HGB CONC([facility]" /> <statusCode code=" completed" /> <effectiveTime value="283442017399" /> <value unit="GM/DL" xsi:type="PQ" value=& quot;33.7" /> <interpretationCode codeSystem="local& quot; code="N" /> <referenceRange> < observationRange> <text>31-37</text> </ observationRange> </referenceRange> </observation&gt ; </component> <component> <observation moodCode ="EVN" classCode="OBS"> <templateId root=& quot;2.16.840.1.424733.10.20.22.4.2" /> <id nullFlavor=&quot ;NA" /> <code codeSystem="local" code=" 100.0750" displayName="RDW STANDARD DEVIATION" /> &lt ;statusCode code="completed" /> <effectiveTime value=& quot;301969520616" /> <value unit="FL" xsi:type=& quot;PQ" value="42.5" /> <interpretationCode codeSystem="local" code="N" /> < referenceRange> <observationRange> <text> 36.9-50.2</text> </observationRange> </ referenceRange> </observation> </component> < component> <observation moodCode="EVN" classCode=" OBS"> <templateId root="2.16.840.1.268173.10.20.22.4.2& quot; /> <id nullFlavor="NA" /> <code codeSystem="local" code="100.0850" displayName="PLT - PLATELET COUNT" /><statusCode code="completed" /> <effectiveTime value="207607982425" /> <value unit="T/MM3" xsi:type="PQ" value="290" /> <interpretationCode codeSystem="local" code="N" /&gt ; <referenceRange> <observationRange> <text>130-400</text> </observationRange> </referenceRange> </observation> </component> <component> <observation moodCode="EVN" classCode= "OBS"> <templateId root=" 2.16.840.1.545623.10.20.22.4.2" /> <id nullFlavor="NA& quot; /> <code codeSystem="local" code="100.0950& quot; displayName="MEAN PLATELET VOLUME" /> < statusCode code="completed" /> <effectiveTime value=& quot;994479943509" /> <value unit="UM3" xsi:type=& quot;PQ" value="9.7" /> <interpretationCode codeSystem="local" code="N" /> < referenceRange> <observationRange> <text>9.4 -12.4</text> </observationRange> </ referenceRange> </observation> </component> < component> <observation moodCode="EVN" classCode=" OBS"> <templateId root="[id number]& quot; /> <id nullFlavor="NA" /> <code codeSystem="local" code="100.1050" displayName=" NEUTROPHILS % (AUTO)" /> <statusCode code=" completed" /> <effectiveTime value="[id number]" /> <value unit="%" xsi:type="PQ" value="63.2" /> <interpretationCode codeSystem=" local" code="N" /> <referenceRange> < observationRange> <text>33-66</text> < /observationRange> </referenceRange> </observation& gt; </component> <component> <observation moodCode="EVN" classCode="OBS"><templateId root=" 2.16.840.1.938165.10.20.22.4.2" /> <id nullFlavor="NA& quot; /> <code codeSystem="local" code="100.1100& quot; displayName="LYMPHOCYTES % (AUTO)" /> < statusCode code="completed" /> <effectiveTime value=& quot;391670836490" /> <value unit="%" xsi: type="PQ" value="24.7" /> < interpretationCode codeSystem="local" code="N" /> <referenceRange> <observationRange> < text>23-45</text> </observationRange> </ referenceRange> </observation> </component> < component> <observation moodCode="EVN" classCode=" OBS"> <templateId root="2.16.840.1.584405.10.20.22.4.2& quot; /> <id nullFlavor="NA"/> <code codeSystem="local" code="100.1150" displayName=" MONOCYTES % (AUTO)" /> <statusCode code=" completed" /><effectiveTime value="406230365483" /> <value unit="%"xsi:type="PQ" value=" 5.4" /> <interpretationCode codeSystem="local" code="N" /> <referenceRange> < observationRange> <text>0-9.0</text> < /observationRange> </referenceRange> </observation& gt; </component> <component> <observation moodCode="EVN" classCode="OBS"> <templateId root="2.16.840.1.290707.10.20.22.4.2" /> <id nullFlavor ="NA" /> <code codeSystem="local" code="100.1200 " displayName="EOSINOPHILS % (AUTO)" /> < statusCode code="completed" /> <effectiveTime value=& quot;699842079162" /> <value unit="%" xsi: type="PQ" value="5.7" /> <interpretationCode codeSystem="local" code="H" /> < referenceRange> <observationRange> <text>0-4</ text> </observationRange> </referenceRange> </observation> </component> <component> <observation moodCode="EVN" classCode="OBS"> <templateId root="2.16.840.1.051615.10.20.22.4.2" /> <id nullFlavor="NA" /> <code codeSystem=" local" code="100.1250" displayName="BASOPHILS % ( AUTO)" /> <statusCode code="completed" /> <effectiveTime value="241319697341" /> <value unit="%" xsi:type="PQ" value="0.6" /> <interpretationCode codeSystem="local" code="N" /> <referenceRange> <observationRange> <text>0-2</text> </observationRange> </referenceRange> </observation> </component> <component> <observation moodCode="EVN" classCode="OBS"> <templateId root=" 2.16.840.1.012281.10.20.22.4.2" /> <id nullFlavor="NA& quot; /> <code codeSystem="local" code="100.1275& quot; displayName="IMMATURE GRANULOCYTE % (AUTO)" /> <statusCode code="completed" /> <effectiveTime value="138780003034" /> <value unit="%& quot; xsi:type="PQ" value="0.4" /> < interpretationCode codeSystem="local" code="N" /> <referenceRange> <observationRange> < text>0.0-0.5</text> </observationRange> </ referenceRange> </observation> </component> < component> <observation moodCode="EVN" classCode=" OBS"> <templateId root="2.16.840.1.259571.10.20.22.4.2& quot; /> <id nullFlavor="NA" /> <code codeSystem="local" code="100.1300" displayName=" NEUTROPHILS # (AUTO)" /> <statusCode code="completed& quot; /> <effectiveTime value="699612348805" /> <value unit="T/MM3" xsi:type="PQ" value="6.9& quot; /> <interpretationCode codeSystem="local" code=& quot;N" /> <referenceRange> < observationRange> <text>1.8-7.7</text> < /observationRange> </referenceRange> </observation& gt; </component> <component> <observation moodCode=& quot;EVN" classCode="OBS"> <templateId root=" 2.16.840.1.490860.10.20.22.4.2" /> <id nullFlavor="NA&quot ; /> <code codeSystem="local" code="100.1350&quot ; displayName="LYMPHOCYTES # (AUTO)" /> <statusCode code="completed" /> <effectiveTime value=" 142462117502" /> <value unit="T/MM3" xsi:type=& quot;PQ" value="2.7" /> <interpretationCode codeSystem="local" code="N" /> < referenceRange> <observationRange> <text>1- 4.8</text> </observationRange> </ referenceRange> </observation> </component> < component> <observation moodCode="EVN" classCode=" OBS"> <templateId root="2.16.840.1.128831.10.20.22.4.2&quot ; /> <id nullFlavor="NA" /> <code codeSystem="local" code="100.1400" displayName=" MONOCYTES # (AUTO)" /> <statusCode code="completed&quot ; /> <effectiveTime value="169618689079" /> & lt;value unit="T/MM3" xsi:type="PQ" value="0.6" /& gt; <interpretationCode codeSystem="local" code="N& quot; /> <referenceRange> <observationRange> <text>0-0.8</text> </observationRange&gt ; </referenceRange> </observation> </ component> <component> <observation moodCode="EVN" classCode="OBS"> <templateId root=" 2.16.840.1.471803.10.20.22.4.2" /> <id nullFlavor="NA& quot; /> <code codeSystem="local" code="100.1450&quot ; displayName="EOSINOPHILS # (AUTO)" /> <statusCode code="completed" /> <effectiveTime value=" 232184828193" /> <value unit="T/MM3" xsi:type=& quot;PQ" value="0.6" /> <interpretationCode codeSystem="local" code="H" /> < referenceRange> <observationRange> <text> 0-0.5</text> </observationRange> </ referenceRange> </observation> </component> < component> <observation moodCode="EVN" classCode=" OBS"> <templateId root="2.16.840.1.580040.10.20.22.4.2& quot; /> <id nullFlavor="NA" /> <code codeSystem="local" code="100.1500" displayName=" BASOPHILS # (AUTO)" /> <statusCode code="completed" /&gt ; <effectiveTime value="797066945305" /> < value unit="T/MM3" xsi:type="PQ" value="0.1" /&gt ; <interpretationCode codeSystem="local" code="N&quot ; /> <referenceRange> <observationRange> <text>0-0.2</text> </observationRange> & lt;/referenceRange> </observation> </component> <component> <observation moodCode="EVN" classCode=& quot;OBS"> <templateId root=" 2.16.840.1.549163.10.20.22.4.2" /> <id nullFlavor="NA& quot; /> <code codeSystem="local" code="100.1525& quot; displayName="IMMATURE GRANULOCYTE # (AUTO)" /> < statusCode code="completed" /> <effectiveTime value=& quot;616332833986" /> <value unit="T/MM3" xsi:type ="PQ" value="0.04" /> <interpretationCode codeSystem="local" code="H" /> < referenceRange> <observationRange> <text> 0.00-0.03</text> </observationRange> </ referenceRange> </observation> </component> </ organizer> </entry> <entry> <organizer moodCode="EVN " classCode="BATTERY"> <templateId root=" 2.16.840.1.008244.10.20.22.4.1" /> <id nullFlavor="NA&quot ; /> <code codeSystem="local" code="LCMP" displayName="L200.0020" /> <statusCode code="completed " /> <component> <observation moodCode="EVN& quot; classCode="OBS"> <templateId root=" 2.16.840.1.891525.10.20.22.4.2" /> <id nullFlavor="NA" /& gt; <code codeSystem="local" code="200.0097" displayName="ICTERUS" /> <statusCode code=" completed" /> <effectiveTime value="139277523646" /> <value unit="" xsi:type="PQ" value="& amp;lt; 2" /> <interpretationCode codeSystem="local& quot; code="N" /> <referenceRange> < observationRange> <text>0-7</text> </ observationRange> </referenceRange> </observation> </component> <component> <observation moodCode=& quot;EVN" classCode="OBS"> <templateId root=" 2.16.840.1.828759.10.20.22.4.2" /> <id nullFlavor="NA& quot;/> <code codeSystem="local" code="200.0098& quot; displayName="HEMOLYSIS" /> <statusCode code=&quot ;completed" /> <effectiveTime value="207457998544&quot ; /> <value unit="" xsi:type="PQ" value=&quot ;31" /> <interpretationCode codeSystem="local" code="H" /> <referenceRange> < observationRange> <text>0-25</text> </ observationRange> </referenceRange> </observation&gt ; </component> <component> <observation moodCode ="EVN" classCode="OBS"> <templateId root=& quot;2.16.840.1.436618.10.20.22.4.2" /> <id nullFlavor=&quot ;NA" /> <code codeSystem="local" code=" 200.0099" displayName="TURBIDITY" /> <statusCode code="completed" /> <effectiveTime value=" 949741210501" /> <value unit="" xsi:type="PQ&quot ; value="< 20" /> <interpretationCode codeSystem=" local" code="N" /> <referenceRange> <observationRange> <text>0-20</text> & lt;/observationRange> </referenceRange> </ observation> </component> <component> < observation moodCode="EVN" classCode="OBS"> < templateId root="2.16.840.1.925247.10.20.22.4.2" /> < id nullFlavor="NA" /> <code codeSystem="local&quot ; code="200.0100" displayName="SODIUM" /> < statusCode code="completed" /> <effectiveTime value=&quot ;331962962567" /> <value unit="MEQ/L" xsi:type=& quot;PQ" value="140" /> <interpretationCode codeSystem="local" code="N" /> < referenceRange> <observationRange> <text> 134-144</text> </observationRange> </ referenceRange> </observation> </component> < component> <observation moodCode="EVN" classCode="OBS& quot;> <templateId root="2.16.840.1.481546.10.20.22.4.2&quot ; /> <id nullFlavor="NA" /> <code codeSystem="local" code="200.0150" displayName=" POTASSIUM" /> <statusCode code="completed" /> <effectiveTime value="294202175830" /> < value unit="MEQ/L" xsi:type="PQ" value="4.1" /&gt ; <interpretationCode codeSystem="local" code="N&quot ; /> <referenceRange> <observationRange> <text>3.6-5</text> </observationRange> </referenceRange> </observation> </component& gt; <component> <observation moodCode="EVN" classCode="OBS"> <templateId root=" 2.16.840.1.813107.10.20.22.4.2" /> <id nullFlavor="NA& quot; /> <code codeSystem="local" code="200.0200& quot; displayName="CHLORIDE" /> <statusCodecode=" completed" /> <effectiveTime value="702736984413" /> <value unit="MEQ/L" xsi:type="PQ" value=" 106" /> <interpretationCode codeSystem="local" code="N" /> <referenceRange> < observationRange> <text>98-107</text> &lt ;/observationRange> </referenceRange> </observation& gt; </component> <component> <observation moodCode="EVN" classCode="OBS"> <templateId root="2.16.840.1.336101.10.20.22.4.2" /> <idnullFlavor= "NA" /> <code codeSystem="local" code=" 200.0250" displayName="CO2 - CARBON DIOXIDE" /> < statusCode code="completed" /> <effectiveTime value=& quot;036139453022" /> <value unit="MEQ/L" xsi:type ="PQ" value="24" /> <interpretationCode codeSystem="local" code="N" /> < referenceRange> <observationRange> <text> 22-30</text> </observationRange> </ referenceRange> </observation> </component> < component> <observation moodCode="EVN" classCode=" OBS"> <templateId root="2.16.840.1.511936.10.20.22.4.2& quot; /> <id nullFlavor="NA" /> <code codeSystem="local" code="200.0300" displayName="ANION GAP" /> <statusCode code="completed" /> <effectiveTime value="401925936223" /> <value unit="MEQ/L" xsi:type="PQ" value="10" /> <interpretationCode codeSystem="local" code="N" /&gt ; <referenceRange> <observationRange> <text>5-15</text> </observationRange> </referenceRange> </observation> </component> < component> <observation moodCode="EVN" classCode=" OBS"> <templateId root="2.16.840.1.613704.10.20.22.4.2& quot; /> <id nullFlavor="NA" /> <code codeSystem="local" code="200.0350" displayName="BLOOD UREA NITROGEN" /> <statusCode code="completed" /> <effectiveTime value="096562302418" /> <value unit="MG/DL" xsi:type="PQ" value="17.0" /> <interpretationCode codeSystem="local" code="N" /& gt; <referenceRange> <observationRange> &lt ;text>7-17</text> </observationRange> </ referenceRange> </observation> </component> < component> <observation moodCode="EVN" classCode=" OBS"> <templateId root="2.16.840.1.603045.10.20.22.4.2& quot; /> <id nullFlavor="NA" /> <code codeSystem="local" code="200.0400" displayName=" CREATININE" /> <statusCode code="completed" /> <effectiveTime value="018870392499" /> < valueunit="MG/DL" xsi:type="PQ" value="1.0" /> <interpretationCode codeSystem="local" code="N&quot ; /> <referenceRange> <observationRange> & lt;text>0.7-1.2</text> </observationRange> & lt;/referenceRange> </observation> </component> <component> <observation moodCode="EVN" classCode=& quot;OBS"> <templateId root="2.16.840.1.631345.10.20.22.4.2& quot; /> <id nullFlavor="NA" /> <code codeSystem="local" code="200.0450" displayName="BUN/ CREATININE RATIO" /> <statusCode code="completed" /> <effectiveTime value="943412444263" /> < value unit="RATIO" xsi:type="PQ" value="17" /> <interpretationCode codeSystem="local" code="N&quot ; /> <referenceRange> <observationRange> <text>6-26</text> </observationRange> </referenceRange> </observation> </component& gt; <component> <observation moodCode="EVN" classCode="OBS"> <templateId root=" 2.16.840.1.118856.10.20.22.4.2" /> <id nullFlavor="NA& quot; /> <code codeSystem="local" code="200.0475" displayName="GLOMERULAR FILTRATION RATE" /> < statusCode code="completed" /> <effectiveTime value=& quot;173964989741" /> <value unit="" xsi:type=& quot;PQ" value="65" /> <interpretationCode codeSystem="local" code="N" /> < referenceRange> <observationRange> <text /& gt; </observationRange> </referenceRange> </observation> </component> <component> &lt ;observation moodCode="EVN"classCode="OBS"> < templateId root="2.16.840.1.830431.10.20.22.4.2" /> < id nullFlavor="NA" /> <code codeSystem="local&quot ; code="200.0500" displayName="GLUCOSE" /> < statusCode code="completed" /> <effectiveTime value=& quot;249543000415" /> <value unit="MG/DL" xsi:type ="PQ" value="117" /> <interpretationCode codeSystem="local" code="H" /> < referenceRange> <observationRange> <text>65-110& lt;/text> </observationRange> </referenceRange& gt; </observation> </component><component> <observation moodCode="EVN" classCode="OBS"> < templateId root="2.16.840.1.505881.10.20.22.4.2" /> < id nullFlavor="NA" /> <code codeSystem="local&quot ; code="200.0550" displayName="OSMOLALITY,CALCULATED" /> <statusCode code="completed" /> < effectiveTime value="156168657648" /> <value unit=&quot ;MOSM/KG" xsi:type="PQ" value="272" /> < interpretationCode codeSystem="local" code="N" /> <referenceRange> <observationRange> < text>261-280</text> </observationRange> </ referenceRange> </observation> </component> < component> <observation moodCode="EVN" classCode="OBS "> <templateId root="2.16.840.1.603950.10.20.22.4.2& quot; /> <id nullFlavor="NA" /> <code codeSystem="local" code="200.0600" displayName="CALCIUM " /> <statusCode code="completed" /> & lt;effectiveTime value="234483992246" /> <value unit=& quot;MG/DL" xsi:type="PQ" value="9.8" /> & lt;interpretationCode codeSystem="local" code="N" /> <referenceRange> <observationRange> & lt;text>8.4-10.2</text> </observationRange> & lt;/referenceRange></observation> </component> < component> <observation moodCode="EVN" classCode=" OBS"> <templateId root="2.16.840.1.364268.10.20.22.4.2& quot; /> <id nullFlavor="NA" /> <code codeSystem="local" code="200.0650" displayName=" BILIRUBIN,TOTAL" /> <statusCode code="completed" / > <effectiveTime value="242001629457" /> & lt;value unit="MG/DL" xsi:type="PQ" value="1.00" / > <interpretationCode codeSystem="local" code="N& quot; /> <referenceRange> <observationRange> <text>0.20-1.30</text> </ observationRange> </referenceRange> </observation&gt ; </component> <component> <observation moodCode=& quot;EVN" classCode="OBS"> <templateId root=" 2.16.840.1.154643.10.20.22.4.2" /> <id nullFlavor="NA& quot; /> <code codeSystem="local" code="200.0950& quot; displayName="ALKALINE PHOSPHATASE" /> < statusCode code="completed" /> <effectiveTime value=& quot;383467601298" /> <value unit="U/L" xsi:type=& quot;PQ" value="94" /> <interpretationCode codeSystem="local" code="N" /> < referenceRange> <observationRange> <text>38- 126</text> </observationRange> </ referenceRange> </observation> </component> < component> <observation moodCode="EVN" classCode=" OBS"> <templateId root="2.16.840.1.368918.10.20.22.4.2&quot ; /> <id nullFlavor="NA" /> <code codeSystem="local" code="200.1000" displayName="TOTAL PROTEIN" /> <statusCode code="completed" /> & lt;effectiveTime value="439687085962" /> <value unit=& quot;G/DL" xsi:type="PQ" value="7.4" /> &lt ;interpretationCode codeSystem="local" code="N" /> <referenceRange> <observationRange> < text>6.3-8.2</text> </observationRange> </ referenceRange> </observation> </component> < component> <observation moodCode="EVN" classCode=" OBS"> <templateId root="2.16.840.1.382599.10.20.22.4.2& quot; /> <id nullFlavor="NA" /> <code codeSystem ="local" code="200.1050" displayName="ALBUMIN" /& gt; <statusCode code="completed" /> < effectiveTime value="879674538389" /> <value unit=&quot ;G/DL" xsi:type="PQ" value="4.3" /> < interpretationCode codeSystem="local" code="N" /> <referenceRange> <observationRange> < text>3.5-5.0</text> </observationRange> </ referenceRange> </observation> </component> < component> <observation moodCode="EVN" classCode=" OBS"> <templateId root="2.16.840.1.419501.10.20.22.4.2& quot; /> <id nullFlavor="NA" /> <code codeSystem="local" code="200.1100" displayName=" GLOBULIN" /> <statusCode code="completed" /> <effectiveTime value="346811507455" /> < value unit="G/DL" xsi:type="PQ" value="3.1" /> <interpretationCode codeSystem="local" code="N&quot ; /> <referenceRange> <observationRange> <text>2.4-3.6</text> </observationRange> </referenceRange> </observation> </component& gt; <component> <observation moodCode="EVN" classCode="OBS"> <templateId root=" 2.16.840.1.056606.10.20.22.4.2" /> <id nullFlavor="NA& quot; /> <code codeSystem="local" code="200.1150& quot; displayName="ALBUMIN/GLOBULIN RATIO" /> < statusCode code="completed"/> <effectiveTime value=& quot;234835425998" /> <value unit="RATIO" xsi:type ="PQ" value="1.4" /> <interpretationCode codeSystem="local" code="N" /> < referenceRange> <observationRange> <text> 1.1-2.2</text> </observationRange> </ referenceRange> </observation> </component> < component> <observation moodCode="EVN" classCode=" OBS"> <templateId root="2.16.840.1.021346.10.20.22.4.2& quot; /> <id nullFlavor="NA"/> <code codeSystem="local" code="200.1200" displayName="AST( SGOT)" /> <statusCode code="completed" /> <effectiveTime value="454436899179" /> <value unit="U/L" xsi:type="PQ" value="28" /> <interpretationCode codeSystem="local" code="N" /> <referenceRange> <observationRange> <text>14-36</text> </observationRange> & lt;/referenceRange> </observation> </component> < component> <observation moodCode="EVN" classCode=" OBS"> <templateId root="2.16.840.1.565184.10.20.22.4.2& quot; /> <id nullFlavor="NA" /> <code codeSystem="local" code="200.1250" displayName="ALT ( SGPT)" /> <statusCode code="completed" /> <effectiveTime value="172505450796" /> <value unit="U/L" xsi:type="PQ" value="45" /> < interpretationCode codeSystem="local" code="N" /> <referenceRange> <observationRange> < text>9-52</text> </observationRange> </ referenceRange> </observation> </component> </ organizer> </entry> <entry> <organizer moodCode="EVN " classCode="BATTERY"> <templateId root=" 2.16.840.1.085169.10.20.22.4.1" /> <id nullFlavor="NA&quot ; /> <code codeSystem="local" code="LMAG" displayName="L200.2000" /> <statusCode code="completed " /> <component> <observation moodCode="EVN& quot; classCode="OBS"> <templateId root=" 2.16.840.1.492884.10.20.22.4.2" /> <id nullFlavor="NA& quot; /> <code codeSystem="local" code="200.2000& quot; displayName="MAGNESIUM" /> <statusCode code=&quot ;completed" /> <effectiveTime value="764306713306&quot ; /> <value unit="MG/DL" xsi:type="PQ" value= "2.0" /> <interpretationCode codeSystem="local& quot; code="N" /> <referenceRange> < observationRange> <text>1.6-2.3</text> & lt;/observationRange> </referenceRange> </observation> </component> </organizer> </entry> <entry> & lt;organizer moodCode="EVN" classCode="BATTERY"> &lt ;templateId root="2.16.840.1.388515.10.20.22.4.1" /> <id nullFlavor="NA" /> <code codeSystem="local" code= "LCBC" displayName="L100.0050" /> <statusCode code="completed" /> <component> <observation moodCode="EVN" classCode="OBS"> <templateId root="2.16.840.1.315503.10.20.22.4.2" /> <id nullFlavor ="NA" /> <code codeSystem="local" code=" 100.0150" displayName="WBC -WHITE BLOOD COUNT" /> &lt ;statusCode code="completed" /> <effectiveTime value=& quot;418286367275" /> <value unit="T/MM3" xsi:type ="PQ" value="15.0" /> <interpretationCode codeSystem="local" code="H" /> < referenceRange> <observationRange> <text>4.5- 11.0</text> </observationRange> </ referenceRange> </observation> </component> < component> <observation moodCode="EVN" classCode=" OBS"> <templateId root="2.16.840.1.118330.10.20.22.4.2& quot; /> <id nullFlavor="NA" /> <code codeSystem="local" code="100.0250" displayName="RED BLOOD COUNT"/> <statusCode code="completed" /> <effectiveTime value="307848228048" /> < value unit="M/MM3" xsi:type="PQ" value="5.12" /&gt ; <interpretationCode codeSystem="local" code="N&quot ; /> <referenceRange> <observationRange> <text>4.00-5.20</text> </observationRange&gt ; </referenceRange> </observation> </ component> <component> <observation moodCode="EVN& quot; classCode="OBS"> <templateId root=" 2.16.840.1.884226.10.20.22.4.2" /> <id nullFlavor="NA& quot; /> <code codeSystem="local" code="100.0300& quot; displayName="HGB - HEMOGLOBIN" /> <statusCode code="completed" /> <effectiveTime value=" 155096013416" /> <value unit="GM/DL" xsi:type=& quot;PQ" value="14.7" /> <interpretationCode codeSystem="local" code="N" /> < referenceRange> <observationRange> <text> 12-16</text> </observationRange> </referenceRange&gt ; </observation> </component> <component> <observation moodCode="EVN" classCode="OBS"> <templateId root="2.16.840.1.502025.10.20.22.4.2" /> < id nullFlavor="NA" /> <code codeSystem="local&quot ; code="100.0400" displayName="HCT - HEMATOCRIT" /> <statusCode code="completed" /> <effectiveTime value="358796237725" /> <value unit="%& quot; xsi:type="PQ" value="42.6" /> < interpretationCode codeSystem="local" code="N" /> <referenceRange> <observationRange> <text> 36-46</text> </observationRange> </ referenceRange> </observation> </component> < component> <observation moodCode="EVN" classCode=" OBS"> <templateId root="2.16.840.1.540656.10.20.22.4.2" /& gt; <id nullFlavor="NA" /> <code codeSystem ="local" code="100.0550" displayName="MEAN CORPUSCULAR VOLUME" /> <statusCode code="completed" /> <effectiveTime value="606200773562" /> <value unit="UM3" xsi:type="PQ" value="83.2" /> <interpretationCode codeSystem="local" code="N" /&gt ; <referenceRange> <observationRange> <text>80-100</text> </observationRange> </referenceRange> </observation> </component> <component> <observation moodCode="EVN" classCode=& quot;OBS"> <templateId root=" 2.16.840.1.830094.10.20.22.4.2" /> <id nullFlavor="NA& quot; /> <code codeSystem="local" code="100.0600&quot ; displayName="MEAN CORPUSCULAR HGB" /> <statusCode code="completed" /> <effectiveTime value=" 998911173687" /> <value unit="UUG" xsi:type=" PQ" value="28.7" /> <interpretationCode codeSystem ="local" code="N" /> <referenceRange> <observationRange> <text>26-34</text> </observationRange> </referenceRange> </ observation> </component> <component> < observation moodCode="EVN" classCode="OBS"> < templateId root="2.16.840.1.802848.10.20.22.4.2" /> < id nullFlavor="NA" /> <code codeSystem="local&quot ; code="100.0650" displayName="MEAN CORPUSCULAR HGB CONC([facility]& quot; /> <statusCode code="completed" /> & lt;effectiveTime value="415923289005" /> <value unit=& quot;GM/DL" xsi:type="PQ" value="34.5" /> & lt;interpretationCode codeSystem="local" code="N"/> <referenceRange> <observationRange> &lt ;text>31-37</text> </observationRange> </ referenceRange> </observation> </component> < component> <observation moodCode="EVN" classCode=" OBS"> <templateId root="2.16.840.1.112640.10.20.22.4.2& quot; /> <id nullFlavor="NA" /> <code codeSystem="local" code="100.0750" displayName="RDW STANDARD DEVIATION" /> <statusCode code="completed&quot ; /> <effectiveTime value="486932223174" /> <value unit="FL" xsi:type="PQ" value="41.9" / > <interpretationCode codeSystem="local" code="N&quot ; /> <referenceRange> <observationRange> <text>36.9-50.2</text> </observationRange> </referenceRange> </observation></component> <component> <observation moodCode="EVN" classCode ="OBS"> <templateId root=" 2.16.840.1.733814.10.20.22.4.2" /> <id nullFlavor="NA" /> <code codeSystem="local" code="100.0850" displayName="PLT - PLATELET COUNT" /> <statusCode code= "completed" /> <effectiveTime value="[id number]& quot; /> <value unit="T/MM3" xsi:type="PQ" value="339" /> <interpretationCode codeSystem=" local" code="N" /> <referenceRange> < observationRange> <text>130-400</text> & lt;/observationRange> </referenceRange> </ observation> </component> <component> < observation moodCode="EVN" classCode="OBS"> < templateId root="[id number]" /> < id nullFlavor="NA" /> <code codeSystem="local&quot ; code="100.0950" displayName="MEAN PLATELET VOLUME" /> <statusCode code="completed" /> < effectiveTime value="051722253940" /> <value unit=&quot ;UM3" xsi:type="PQ" value="9.3" /> < interpretationCode codeSystem="local" code="L" /> <referenceRange> <observationRange> < text>9.4-12.4</text> </observationRange> </ referenceRange> </observation> </component> < component> <observation moodCode="EVN" classCode="OBS& quot;> <templateIdroot="2.16.840.1.855783.10.20.22.4.2&quot ; /> <id nullFlavor="NA" /> <code codeSystem="local" code="100.1050" displayName=" NEUTROPHILS % (AUTO)" /> <statusCode code=" completed" /> <effectiveTime value="601649975404" /> <value unit="%" xsi:type="PQ" value="67.9" /> <interpretationCode codeSystem=" local" code="H" /> <referenceRange> <observationRange> <text>33-66</text> </observationRange> </referenceRange> </ observation> </component> <component> < observation moodCode="EVN" classCode="OBS"> < templateId root="2.16.840.1.941048.10.20.22.4.2" /> < id nullFlavor="NA" /><code codeSystem="local" code=& quot;100.1100" displayName="LYMPHOCYTES % (AUTO)" /> <statusCode code="completed" /> < effectiveTime value="548042585156" /> <value unit=&quot ;%" xsi:type="PQ" value="21.6" /> & lt;interpretationCode codeSystem="local"code="L" /> <referenceRange> <observationRange> <text> 23-45</text> </observationRange> </ referenceRange> </observation> </component> < component> <observation moodCode="EVN" classCode=" OBS"> <templateId root="2.16.840.1.734508.10.20.22.4.2& quot; /> <id nullFlavor="NA" /> <code codeSystem="local" code="100.1150" displayName=" MONOCYTES % (AUTO)" /> <statusCode code=" completed" /> <effectiveTime value="155199494409" /> <value unit="%" xsi:type="PQ" value="6.9" /> <interpretationCode codeSystem=" local" code="N" /> <referenceRange> <observationRange> <text>0-9.0</text> </observationRange> </referenceRange> </ observation> </component> <component> < observation moodCode="EVN" classCode="OBS"> < templateId root="2.16.840.1.516502.10.20.22.4.2" /> < id nullFlavor="NA" /> <code codeSystem="local&quot ; code="100.1200" displayName="EOSINOPHILS % (AUTO)&quot ; /> <statusCode code="completed" /> < effectiveTime value="079530571663" /> <value unit=&quot ;%" xsi:type="PQ" value="3.1" /> & lt;interpretationCode codeSystem="local" code="N" /> <referenceRange> <observationRange> & lt;text>0-4</text> </observationRange> </ referenceRange> </observation> </component> < component> <observation moodCode="EVN" classCode=" OBS"> <templateId root="2.16.840.1.164345.10.20.22.4.2& quot; /> <id nullFlavor="NA" /> <code codeSystem="local" code="100.1250" displayName=" BASOPHILS % (AUTO)" /> <statusCode code=" completed" /> <effectiveTime value="660149150022" /> <value unit="%" xsi:type="PQ" value="0.2" /> <interpretationCode codeSystem=" local" code="N" /> <referenceRange> <observationRange> <text>0-2</text> </ observationRange> </referenceRange> </observation&gt ; </component> <component> <observation moodCode ="EVN" classCode="OBS"> <templateId root=& quot;2.16.840.1.364900.10.20.22.4.2" /> <id nullFlavor="NA&quot ; /> <code codeSystem="local" code="100.1275&quot ; displayName="IMMATURE GRANULOCYTE % (AUTO)" /> & lt;statusCode code="completed" /> <effectiveTime value= "281204022179" /> <value unit="%" xsi: type="PQ" value="0.3" /> <interpretationCode codeSystem="local" code="N" /> < referenceRange> <observationRange> <text> 0.0-0.5</text> </observationRange> </referenceRange > </observation> </component> <component> <observation moodCode="EVN" classCode="OBS"> <templateId root="2.16.840.1.936225.10.20.22.4.2" /> & lt;id nullFlavor="NA" /> <code codeSystem="local& quot; code="100.1300" displayName="NEUTROPHILS # (AUTO)" /& gt; <statusCode code="completed" /> < effectiveTime value="140428825058" /> <value unit=&quot ;T/MM3" xsi:type="PQ" value="10.2" /> < interpretationCode codeSystem="local" code="H" /> <referenceRange> <observationRange> <text> 1.8-7.7</text> </observationRange> </ referenceRange> </observation> </component> < component> <observation moodCode="EVN" classCode=" OBS"> <templateId root="2.16.840.1.526586.10.20.22.4.2&quot ; /> <id nullFlavor="NA" /> <code codeSystem="local" code="100.1350" displayName=" LYMPHOCYTES # (AUTO)" /> <statusCode code="completed& quot; /> <effectiveTime value="086443278141" /> <value unit="T/MM3" xsi:type="PQ" value="3.2& quot; /> <interpretationCode codeSystem="local" code=& quot;N" /> <referenceRange> < observationRange> <text>1-4.8</text> < /observationRange> </referenceRange> </observation& gt; </component> <component> <observation moodCode=& quot;EVN" classCode="OBS"> <templateId root=" 2.16.840.1.699644.10.20.22.4.2" /> <id nullFlavor="NA& quot; /> <code codeSystem="local" code="100.1400&quot ; displayName="MONOCYTES #(AUTO)" /> <statusCode code=& quot;completed" /> <effectiveTime value="506116673546& quot; /> <value unit="T/MM3" xsi:type="PQ" value="1.0" /> <interpretationCode codeSystem=" local" code="H" /> <referenceRange> <observationRange> <text>0-0.8</text> </observationRange> </referenceRange> </observation& gt; </component> <component> <observation moodCode="EVN" classCode="OBS"> <templateId root="2.16.840.1.972868.10.20.22.4.2" /> <id nullFlavor ="NA" /> <code codeSystem="local" code=" 100.1450" displayName="EOSINOPHILS # (AUTO)" /> < statusCode code="completed" /> <effectiveTime value=& quot;752752500732" /> <value unit="T/MM3" xsi:type ="PQ" value="0.5" /> <interpretationCode codeSystem="local" code="N" /> <referenceRange> <observationRange> <text>0-0.5</text> </observationRange> </referenceRange> & lt;/observation> </component> <component> < observation moodCode="EVN" classCode="OBS"> < templateId root="2.16.840.1.353513.10.20.22.4.2" /> < id nullFlavor="NA" /> <code codeSystem="local&quot ; code="100.1500" displayName="BASOPHILS # (AUTO)" /> <statusCode code="completed" /> < effectiveTime value="031577263582" /><value unit="T/MM3& quot; xsi:type="PQ" value="0.0" /> < interpretationCode codeSystem="local" code="N" /> <referenceRange> <observationRange> < text>0-0.2</text> </observationRange> </ referenceRange> </observation> </component> < component> <observation moodCode="EVN" classCode=" OBS"> <templateId root="2.16.840.1.914363.10.20.22.4.2& quot; /> <id nullFlavor="NA" /> <code codeSystem="local" code="100.1525" displayName=" IMMATURE GRANULOCYTE # (AUTO)" /> <statusCode code=" completed" /> <effectiveTime value="479053047459" /> <value unit="T/MM3" xsi:type="PQ" value=& quot;0.05" /> <interpretationCode codeSystem="local& quot; code="H" /> <referenceRange> < observationRange> <text>0.00-0.03</text> </observationRange> </referenceRange> </ observation> </component> </organizer> </entry> & lt;entry> <organizer moodCode="EVN" classCode="BATTERY& quot;> <templateId root="2.16.840.1.052842.10.20.22.4.1" /& gt; <id nullFlavor="NA" /> <code codeSystem=" local" code="LCMP" displayName="L200.0020" /> & lt;statusCode code="completed" /> <component> &lt ;observation moodCode="EVN" classCode="OBS"> < templateId root="2.16.840.1.780809.10.20.22.4.2" /> < id nullFlavor="NA" /> <code codeSystem="local&quot ; code="200.0097" displayName="ICTERUS" /> < statusCode code="completed" /> <effectiveTime value=& quot;778658514182" /> <value unit="" xsi:type=& quot;PQ" value="< 2" /> < interpretationCode codeSystem="local" code="N" /> <referenceRange> <observationRange> <text&gt ;0-7</text> </observationRange> </ referenceRange> </observation> </component> < component> <observation moodCode="EVN" classCode=" OBS"> <templateId root="2.16.840.1.851948.10.20.22.4.2& quot; /> <id nullFlavor="NA" /> < codecodeSystem="local" code="200.0098" displayName=" HEMOLYSIS" /> <statusCode code="completed" /> <effectiveTime value="178229441995" /> <value unit ="" xsi:type="PQ" value="46" /> < interpretationCode codeSystem="local" code="H" /> <referenceRange> <observationRange> < text>0-25</text> </observationRange> </ referenceRange> </observation> </component> < component> <observation moodCode="EVN" classCode=" OBS"> <templateId root="2.16.840.1.204105.10.20.22.4.2& quot; /> <id nullFlavor="NA" /> <code codeSystem="local" code="200.0099" displayName=" TURBIDITY" /> <statusCode code="completed" /> <effectiveTime value="218231844813" /> < value unit="" xsi:type="PQ" value="< 20" /& gt; <interpretationCode codeSystem="local" code="N& quot; /> <referenceRange> <observationRange> <text>0-20</text> </observationRange&gt ; </referenceRange> </observation> </ component> <component> <observation moodCode="EVN& quot; classCode="OBS"> <templateId root=" 2.16.840.1.331669.10.20.22.4.2" /> <id nullFlavor="NA& quot; /> <code codeSystem="local" code="200.0100& quot; displayName="SODIUM" /> <statusCode code=" completed" /> <effectiveTime value="558045901699" /> <value unit="MEQ/L" xsi:type="PQ" value=& quot;142" /> <interpretationCode codeSystem="local&quot ; code="N" /> <referenceRange> < observationRange> <text>134-144</text> & lt;/observationRange> </referenceRange> </observation& gt; </component> <component> <observation moodCode="EVN" classCode="OBS"> <templateId root="2.16.840.1.701521.10.20.22.4.2" /> <id nullFlavor ="NA" /> <code codeSystem="local" code=" 200.0150" displayName="POTASSIUM" /> <statusCode code="completed" /> <effectiveTime value=" 956901506709" /> <value unit="MEQ/L" xsi:type=& quot;PQ" value="4.2" /> <interpretationCode codeSystem="local" code="N" /> < referenceRange> <observationRange> <text> 3.6-5</text> </observationRange> </referenceRange& gt; </observation> </component> <component> <observation moodCode="EVN" classCode="OBS"> <templateId root="2.16.840.1.691507.10.20.22.4.2" /> & lt;id nullFlavor="NA" /> <code codeSystem="local& quot; code="200.0200" displayName="CHLORIDE" /> <statusCode code="completed" /> <effectiveTime value ="212065923380" /> <value unit="MEQ/L" xsi: type="PQ" value="103" /> <interpretationCode codeSystem="local" code="N" /> < referenceRange> <observationRange> <text> 98-107</text> </observationRange> </ referenceRange> </observation> </component> < component> <observation moodCode="EVN" classCode=" OBS"> <templateId root="2.16.840.1.669610.10.20.22.4.2& quot; /> <id nullFlavor="NA" /> <code codeSystem="local" code="200.0250" displayName="CO2 - CARBON DIOXIDE" /> <statusCode code="completed" /& gt; <effectiveTime value="495154145967" /> &lt ;value unit="MEQ/L" xsi:type="PQ" value="26" /&gt ; <interpretationCode codeSystem="local" code="N&quot ; /> <referenceRange> <observationRange> <text>22-30</text> </observationRange> </referenceRange> </observation> </component> <component> <observation moodCode="EVN" classCode= "OBS"> <templateId root=" 2.16.840.1.802043.10.20.22.4.2" /> <id nullFlavor="NA& quot; /> <code codeSystem="local" code="200.0300& quot; displayName="ANION GAP" /> <statusCode code=" completed" /> <effectiveTime value="253472042678" /> <value unit="MEQ/L" xsi:type="PQ" value=& quot;13" /> <interpretationCode codeSystem="local&quot ; code="N" /> <referenceRange> < observationRange> <text>5-15</text> </ observationRange> </referenceRange> </observation&gt ; </component> <component> <observation moodCode= "EVN" classCode="OBS"> <templateId root=&quot ;2.16.840.1.744432.10.20.22.4.2" /> <id nullFlavor="NA& quot; /> <code codeSystem="local" code="200.0350& quot; displayName="BLOOD UREA NITROGEN" /> <statusCode code="completed" /> <effectiveTime value=" 540121444047" /> <value unit="MG/DL" xsi:type=& quot;PQ" value="16.0" /> <interpretationCode codeSystem="local" code="N" /> < referenceRange> <observationRange> <text> 7-17</text> </observationRange> </ referenceRange> </observation> </component> < component> <observation moodCode="EVN" classCode=" OBS"> <templateId root="2.16.840.1.194953.10.20.22.4.2& quot; /> <id nullFlavor="NA" /> <code codeSystem="local" code="200.0400" displayName=" CREATININE" /> <statusCode code="completed" /> <effectiveTime value="677128152338" /> <value unit="MG/DL" xsi:type="PQ" value="1.0" /> <interpretationCode codeSystem="local" code="N" /&gt ; <referenceRange> <observationRange> <text>0.7-1.2</text> </observationRange> </referenceRange> </observation> </component> <component> <observation moodCode="EVN" classCode="OBS"> <templateId root=" 2.16.840.1.338685.10.20.22.4.2" /> <id nullFlavor="NA& quot; /> <code codeSystem="local" code="200.0450" displayName="BUN/CREATININE RATIO" /> <statusCode code= "completed" /> <effectiveTimevalue="146227818648& quot; /> <value unit="RATIO" xsi:type="PQ" value="16" /> <interpretationCode codeSystem=" local" code="N" /> <referenceRange> <observationRange> <text>6-</text> & lt;/observationRange> </referenceRange></observation> </component> <component> <observation moodCode=& quot;EVN" classCode="OBS"> <templateId root=" 2.16.840.1.961440.10.20.22.4.2" /> <id nullFlavor="NA& quot; /> <code codeSystem="local" code="200.0475& quot; displayName="GLOMERULAR FILTRATION RATE" /> < statusCode code="completed" /> <effectiveTime value=& quot;410974560296" /> <value unit="" xsi:type=& quot;PQ" value="65" /> <interpretationCode codeSystem="local" code="N" /> < referenceRange> <observationRange> <text /& gt; </observationRange> </referenceRange> </observation> </component> <component> &lt ;observation moodCode="EVN" classCode="OBS"> &lt ;templateId root="2.16.840.1.038180.10..22.4.2" /> < id nullFlavor="NA" /> <code codeSystem="local&quot ; code="200.0500" displayName="GLUCOSE" /> < statusCode code="completed" /> <effectiveTime value=" 711404500318" /> <value unit="MG/DL" xsi:type=& quot;PQ" value="86" /> <interpretationCode codeSystem="local" code="N" /> < referenceRange> <observationRange> <text> 65-110</text> </observationRange> </ referenceRange> </observation> </component> < component><observation moodCode="EVN" classCode="OBS"& gt; <templateId root="2.16.840.1.929896.10.20.22.4.2" /&gt ; <id nullFlavor="NA" /> <code codeSystem=" local" code="200.0550" displayName="OSMOLALITY,CALCULATED& quot; /> <statusCode code="completed" /> & lt;effectiveTime value="715823411812" /> <value unit=& quot;MOSM/KG" xsi:type="PQ" value="273" /> <interpretationCode codeSystem="local" code="N" /> <referenceRange> <observationRange> & lt;text>261-280</text> </observationRange> & lt;/referenceRange> </observation> </component> <component> <observation moodCode="EVN" classCode=& quot;OBS"> <templateId root=" 2.16.840.1.159618.10.20.22.4.2" /> <id nullFlavor="NA& quot; /> <code codeSystem="local" code="200.0600& quot; displayName="CALCIUM" /> <statusCode code=" completed" /> <effectiveTime value="978882599064" /> <value unit="MG/DL" xsi:type="PQ" value=& quot;9.6" /> <interpretationCode codeSystem="local&quot ; code="N" /> <referenceRange> < observationRange> <text>8.4-10.2</text> &lt ;/observationRange> </referenceRange> </observation& gt; </component> <component> <observation moodCode=& quot;EVN" classCode="OBS"> <templateId root=" 2.16.840.1.505141.10.20.22.4.2" /> <id nullFlavor="NA&quot ; /> <code codeSystem="local" code="200.0650&quot ; displayName="BILIRUBIN,TOTAL" /> <statusCode code=& quot;completed" /> <effectiveTime value="706585807106& quot; /> <value unit="MG/DL" xsi:type="PQ" value="0.70" /> <interpretationCode codeSystem=" local" code="N" /> <referenceRange> < observationRange> <text>0.20-1.30</text> </observationRange> </referenceRange> </ observation> </component> <component> < observation moodCode="EVN" classCode="OBS"> < templateId root="2.16.840.1.460924.10.20.22.4.2" /> < id nullFlavor="NA" /> <code codeSystem="local&quot ; code="200.0950" displayName="ALKALINE PHOSPHATASE" /> <statusCode code="completed" /> < effectiveTime value="664481190009" /> <value unit=&quot ;U/L" xsi:type="PQ" value="77" /> < interpretationCode codeSystem="local" code="N" /> <referenceRange> <observationRange> < text>38-126</text> </observationRange> </ referenceRange> </observation> </component> < component> <observation moodCode="EVN" classCode="OBS&quot ;> <templateId root="2.16.840.1.668711.10.20.22.4.2" /& gt; <id nullFlavor="NA" /> <code codeSystem=& quot;local" code="200.1000" displayName="TOTAL PROTEIN&quot ; /> <statusCode code="completed" /> < effectiveTime value="250145452175" /> <value unit=&quot ;G/DL" xsi:type="PQ" value="7.2" /> < interpretationCode codeSystem="local" code="N" /> <referenceRange> <observationRange> < text>6.3-8.2</text> </observationRange> </ referenceRange> </observation> </component> < component> <observation moodCode="EVN" classCode=" OBS"> <templateId root="2.16.840.1.794803.10.20.22.4.2& quot; /> <id nullFlavor="NA" /> <code codeSystem="local" code="200.1050" displayName="ALBUMIN " /> <statusCode code="completed" /> & lt;effectiveTime value="690275924695" /> <value unit=&quot ;G/DL" xsi:type="PQ" value="4.5" /> < interpretationCode codeSystem="local" code="N" /> <referenceRange> <observationRange> < text>3.5-5.0</text> </observationRange> </ referenceRange> </observation> </component> < component> <observation moodCode="EVN" classCode=" OBS"> <templateId root="2.16.840.1.021779.10.20.22.4.2& quot; /> <id nullFlavor="NA" /> <code codeSystem="local" code="200.1100" displayName=" GLOBULIN" /> <statusCode code="completed" /> <effectiveTime value="838096355315" /> < value unit="G/DL" xsi:type="PQ" value="2.7" /> <interpretationCode codeSystem="local" code="N&quot ; /> <referenceRange> <observationRange> <text>2.4-3.6</text> </observationRange>& lt;/referenceRange> </observation> </component> <component> <observation moodCode="EVN" classCode=" OBS"> <templateId root="2.16.840.1.190217.10.20.22.4.2& quot; /> <id nullFlavor="NA" /> <code codeSystem="local" code="200.1150" displayName="ALBUMIN /GLOBULIN RATIO" /> <statusCode code="completed" / > <effectiveTime value="187541967354" /> & lt;value unit="RATIO" xsi:type="PQ" value="1.7" /& gt; <interpretationCode codeSystem="local" code="N& quot; /> <referenceRange> <observationRange> <text>1.1-2.2</text> </observationRange> </referenceRange> </observation> </component> <component> <observation moodCode="EVN" classCode ="OBS"> <templateId root=" 2.16.840.1.497226.10.20.22.4.2" /> <id nullFlavor="NA& quot; /> <code codeSystem="local" code="200.1200& quot; displayName="AST (SGOT)" /> <statusCode code=" completed" /> <effectiveTime value="987945847345" /> <value unit="U/L" xsi:type="PQ" value=& quot;25" /> <interpretationCode codeSystem="local&quot ; code="N" /> <referenceRange> < observationRange> <text>14-36</text> </ observationRange> </referenceRange> </observation&gt ; </component> <component> <observation moodCode=& quot;EVN" classCode="OBS"> <templateId root=" 2.16.840.1.736733.10.20.22.4.2" /> <id nullFlavor="NA&quot ; /> <code codeSystem="local" code="200.1250&quot ; displayName="ALT (SGPT)" /> <statusCode code=" completed" /> <effectiveTime value="939974052126" /> <value unit="U/L" xsi:type="PQ" value=& quot;42" /> <interpretationCodecodeSystem="local" code="N" /> <referenceRange> < observationRange> <text>9-52</text> </ observationRange> </referenceRange> </observation&gt ; </component> </organizer> </entry> <entry> <organizer moodCode="EVN" classCode="BATTERY"> <templateId root="2.16.840.1.723637.10.20.22.4.1" /> < id nullFlavor="NA" /> <code codeSystem="local" code="LCBC" displayName="L100.0050" /> < statusCode code="completed" /> <component> < observation moodCode="EVN" classCode="OBS"> < templateId root="2.16.840.1.503916.10.20.22.4.2" /> < id nullFlavor="NA" /> <code codeSystem="local&quot ; code="100.0150" displayName="WBC - WHITE BLOOD COUNT" /&gt ; <statusCode code="completed" /> <effectiveTime value="827039153822" /> <value unit="T/MM3" xsi:type="PQ" value="11.1" /> < interpretationCode codeSystem="local" code="H" /> <referenceRange> <observationRange> < text>4.5-11.0</text> </observationRange> < /referenceRange> </observation> </component> &lt ;component> <observation moodCode="EVN" classCode=" OBS"> <templateId root="2.16.840.1.475883.10.20.22.4.2& quot; /> <id nullFlavor="NA" /> <code codeSystem="local" code="100.0250" displayName="RED BLOOD COUNT" /> <statusCode code="completed" /&gt ; <effectiveTime value="847486643831" /> < value unit="M/MM3" xsi:type="PQ" value="5.25" /&gt ; <interpretationCode codeSystem="local" code="H&quot ; /> <referenceRange> <observationRange> <text>4.00-5.20</text> </observationRange&gt ; </referenceRange> </observation> </component&gt ; <component> <observation moodCode="EVN" classCode="OBS"> <templateId root=" 2.16.840.1.797319.10.20.22.4.2" /> <id nullFlavor="NA& quot; /> <code codeSystem="local" code="100.0300& quot; displayName="HGB - HEMOGLOBIN" /> <statusCode code="completed" /> <effectiveTime value=" 756058780486" /> <value unit="GM/DL" xsi:type=& quot;PQ" value="14.9" /> <interpretationCode codeSystem="local" code="N" /> < referenceRange> <observationRange> <text> 12-16</text> </observationRange> </ referenceRange> </observation> </component> < component> <observation moodCode="EVN" classCode=" OBS"> <templateId root="2.16.840.1.201496.10.20.22.4.2& quot; /> <id nullFlavor="NA" /> <code codeSystem="local" code="100.0400" displayName="HCT - HEMATOCRIT" /> <statusCode code="completed" /> <effectiveTime value="787864823888" /> < value unit="%" xsi:type="PQ" value="44.4" /> <interpretationCode codeSystem="local" code="N& quot; /> <referenceRange> <observationRange> <text>36-46</text> </observationRange> </referenceRange> </observation> </ component> <component> <observation moodCode="EVN& quot; classCode="OBS"> <templateId root=" 2.16.840.1.184360.10..22.4.2" /> <id nullFlavor="NA& quot; /> <code codeSystem="local" code="100.0550& quot; displayName="MEAN CORPUSCULAR VOLUME" /> < statusCode code="completed"/> <effectiveTime value=& quot;085138371949" /> <value unit="UM3" xsi:type=& quot;PQ" value="84.6" /> <interpretationCode codeSystem="local" code="N" /> < referenceRange> <observationRange> <text> 80-100</text> </observationRange> </referenceRange& gt; </observation> </component> <component> <observation moodCode="EVN" classCode="OBS"> <templateId root="2.16.840.1.704000.10..22.4.2" /> <id nullFlavor="NA" /> <code codeSystem=&quot ;local" code="100.0600" displayName="MEAN CORPUSCULAR HGB& quot; /> <statusCode code="completed" /> & lt;effectiveTime value="519490802220" /> <value unit=& quot;UUG" xsi:type="PQ" value="28.4" /> &lt ;interpretationCode codeSystem="local" code="N" /> <referenceRange> <observationRange> <text>26 -34</text> </observationRange> </ referenceRange> </observation> </component> < component> <observation moodCode="EVN" classCode=" OBS"> <templateId root="2.16.840.1.373865.10.20.22.4.2& quot; /> <id nullFlavor="NA" /> <code codeSystem="local" code="100.0650" displayName="MEAN CORPUSCULAR HGB CONC([facility]" /> <statusCode code=" completed" /> <effectiveTime value="459083648318" /> <value unit="GM/DL" xsi:type="PQ" value=& quot;33.6" /> <interpretationCode codeSystem="local& quot; code="N" /> <referenceRange> < observationRange> <text>31-37</text> < /observationRange> </referenceRange> </observation& gt; </component> <component> <observation moodCode="EVN" classCode="OBS"> <templateId root="2.16.840.1.756063.10.20.22.4.2" /> <id nullFlavor ="NA" /> <code codeSystem="local" code=" 100.0750" displayName="RDW STANDARD DEVIATION" /> < statusCode code="completed" /> <effectiveTime value=& quot;200718098766" /> <value unit="FL" xsi:type=& quot;PQ" value="43.0" /> <interpretationCode codeSystem="local" code="N" /> < referenceRange> <observationRange> <text> 36.9-50.2</text> </observationRange> </ referenceRange> </observation> </component> < component> <observation moodCode="EVN" classCode=" OBS"> <templateId root="2.16.840.1.617424.10.20.22.4.2& quot; /> <id nullFlavor="NA" /> <code codeSystem="local" code="100.0850" displayName="PLT - PLATELET COUNT" /> <statusCode code="completed" /& gt; <effectiveTime value="[id number]" /> <value unit="T/MM3" xsi:type="PQ" value="336" /> <interpretationCode codeSystem="local" code="N" /&gt ; <referenceRange> <observationRange> <text>130-400</text> </observationRange> </referenceRange> </observation> </component> <component> <observation moodCode="EVN" classCode="OBS"> <templateId root=" 2.16.840.1.524752.10.20.22.4.2" /> <id nullFlavor="NA& quot; /> <code codeSystem="local" code="100.0950& quot; displayName="MEAN PLATELET VOLUME" /> < statusCode code="completed" /> <effectiveTime value=& quot;445008308129" /> <value unit="UM3" xsi:type=& quot;PQ" value="9.2" /> <interpretationCode codeSystem="local" code="L" /> < referenceRange> <observationRange> <text> 9.4-12.4</text> </observationRange> </ referenceRange> </observation> </component> < component> <observation moodCode="EVN" classCode=" OBS"> <templateId root="2.16.840.1.364724.10.20.22.4.2& quot; /> <id nullFlavor="NA" /> <code codeSystem="local" code="100.1050" displayName=" NEUTROPHILS % (AUTO)" /> <statusCode code=" completed" /> <effectiveTime value="954690109796" /> <value unit="%" xsi:type="PQ" value=& quot;65.2" /> <interpretationCode codeSystem="local& quot; code="N" /> <referenceRange> < observationRange> <text>33-66</text> < /observationRange> </referenceRange> </observation& gt; </component> <component> <observation moodCode=& quot;EVN" classCode="OBS"> <templateId root=" 2.16.840.1.179544.10.20.22.4.2" /> <id nullFlavor="NA& quot; /> <code codeSystem="local" code="100.1100&quot ; displayName="LYMPHOCYTES % (AUTO)" /> < statusCode code="completed" /> <effectiveTime value=& quot;409202357186" /> <value unit="%" xsi: type="PQ" value="23.2" /> < interpretationCode codeSystem="local" code="N" /> <referenceRange> <observationRange> <text >23-45</text> </observationRange> </ referenceRange> </observation> </component> < component> <observation moodCode="EVN" classCode=" OBS"> <templateId root="2.16.840.1.878906.10.20.22.4.2& quot; /> <id nullFlavor="NA" /> <code codeSystem="local" code="100.1150" displayName=" MONOCYTES % (AUTO)" /> <statusCode code=" completed" /> <effectiveTime value="240367151782" /> <value unit="%" xsi:type="PQ" value="6.0" /> <interpretationCode codeSystem=" local" code="N" /> <referenceRange> <observationRange> <text>0-9.0</text> </observationRange> </referenceRange> </observation& gt; </component> <component> <observation moodCode="EVN" classCode="OBS"> <templateId root="2.16.840.1.207512.10.20.22.4.2" /> <id nullFlavor ="NA" /> <code codeSystem="local" code=" 100.1200" displayName="EOSINOPHILS % (AUTO)" /> <statusCode code="completed" /> <effectiveTime value="980136600608" /> <value unit="%& quot; xsi:type="PQ" value="4.9" /> < interpretationCode codeSystem="local" code="H" /> <referenceRange> <observationRange> < text>0-4</text> </observationRange> </ referenceRange> </observation> </component> < component> <observation moodCode="EVN" classCode=" OBS"> <templateId root="2.16.840.1.685227.10..22.4.2& quot; /> <id nullFlavor="NA" /> <code codeSystem="local" code="100.1250" displayName=" BASOPHILS % (AUTO)" /> <statusCode code=" completed" /> <effectiveTime value="041408722429" /> <value unit="%" xsi:type="PQ" value="0.4" /> <interpretationCode codeSystem=" local" code="N" /> <referenceRange> < observationRange> <text>0-2</text> </ observationRange> </referenceRange> </observation&gt ; </component> <component> <observation moodCode=& quot;EVN" classCode="OBS"> <templateId root=" 2.16.840.1.402588.10.20.22.4.2" /> <id nullFlavor="NA& quot; /> <code codeSystem="local" code="100.1275& quot; displayName="IMMATURE GRANULOCYTE % (AUTO)" /> <statusCode code="completed" /> <effectiveTime value="863125227793"/> <value unit="%&quot ; xsi:type="PQ" value="0.3" /> < interpretationCode codeSystem="local" code="N" /> <referenceRange> <observationRange> < text>0.0-0.5</text> </observationRange> </ referenceRange> </observation> </component> < component> <observation moodCode="EVN" classCode=" OBS"> <templateId root="2.16.840.1.040585.10.20.22.4.2& quot; /> <id nullFlavor="NA" /> <code codeSystem="local" code="100.1300" displayName=" NEUTROPHILS # (AUTO)" /> <statusCode code="completed& quot; /> <effectiveTime value="583551556823" /> <value unit="T/MM3" xsi:type="PQ" value="7.2& quot; /> <interpretationCode codeSystem="local" code=& quot;N" /> <referenceRange> <observationRange > <text>1.8-7.7</text> </ observationRange> </referenceRange> </observation&gt ; </component> <component> <observation moodCode ="EVN" classCode="OBS"> <templateId root=& quot;2.16.840.1.755879.10.20.22.4.2" /> <id nullFlavor=&quot ;NA" /> <code codeSystem="local" code=" 100.1350" displayName="LYMPHOCYTES # (AUTO)" /> < statusCode code="completed" /> <effectiveTime value=& quot;535719531248" /> <value unit="T/MM3" xsi:type ="PQ" value="2.6" /> <interpretationCode codeSystem="local" code="N" /> < referenceRange> <observationRange> <text> 1-4.8</text> </observationRange> </referenceRange&gt ; </observation> </component> <component> <observation moodCode="EVN" classCode="OBS"> <templateId root="2.16.840.1.173143.10.20.22.4.2" /> <id nullFlavor="NA" /> <code codeSystem=" local" code="100.1400" displayName="MONOCYTES # (AUTO)&quot ; /> <statusCode code="completed" /> < effectiveTime value="132102869756" /> <value unit=&quot ;T/MM3" xsi:type="PQ" value="0.7" /> < interpretationCode codeSystem="local" code="N" /> <referenceRange> <observationRange> <text>0-0.8 </text> </observationRange> </referenceRange& gt; </observation> </component> <component> <observation moodCode="EVN" classCode="OBS"> <templateId root="2.16.840.1.133494.10.20.22.4.2" /> <id nullFlavor="NA" /> <code codeSystem=&quot ;local" code="100.1450" displayName="EOSINOPHILS # (AUTO)& quot; /> <statusCode code="completed" /> & lt;effectiveTime value="118137624419" /> <value unit=& quot;T/MM3" xsi:type="PQ" value="0.5" /> & lt;interpretationCode codeSystem="local" code="N" /> <referenceRange> <observationRange> < text>0-0.5</text> </observationRange> </ referenceRange> </observation> </component> < component> <observation moodCode="EVN" classCode=" OBS"> <templateId root="2.16.840.1.866955.10.20.22.4.2& quot; /> <id nullFlavor="NA" /> <code codeSystem="local" code="100.1500" displayName=" BASOPHILS # (AUTO)" /> <statusCodecode="completed&quot ; /> <effectiveTime value="304632326386" /> < value unit="T/MM3" xsi:type="PQ" value="0.0" /&gt ; <interpretationCode codeSystem="local" code="N&quot ; /> <referenceRange> <observationRange> <text>0-0.2</text> </observationRange> </referenceRange> </observation> </component& gt; <component> <observation moodCode="EVN" classCode="OBS"> <templateId root=" 2.16.840.1.578462.10.20.22.4.2" /> <id nullFlavor="NA& quot; /> <code codeSystem="local" code="100.1525& quot; displayName="IMMATURE GRANULOCYTE # (AUTO)" /> < statusCode code="completed" /> <effectiveTime value=& quot;840976800924" /> <value unit="T/MM3" xsi:type ="PQ" value="0.03" /> <interpretationCode codeSystem="local" code="N" /> < referenceRange> <observationRange> <text>0.00- 0.03</text> </observationRange> </ referenceRange> </observation> </component></ organizer> </entry> <entry> <organizer moodCode="EVN " classCode="BATTERY"> <templateId root=" 2.16.840.1.947268.10..22.4.1" /> <id nullFlavor="NA" /& gt; <code codeSystem="local" code="LCBC" displayName ="L100.0050" /> <statusCode code="completed" /&gt ; <component> <observation moodCode="EVN" classCode= "OBS"> <templateId root=" 2.16.840.1.357494.10.20.22.4.2" /> <id nullFlavor="NA& quot; /> <code codeSystem="local" code="100.0150& quot; displayName="WBC - WHITE BLOOD COUNT" /> < statusCode code="completed" /> <effectiveTime value=& quot;654577974435" /> <value unit="T/MM3" xsi:type ="PQ" value="12.6" /> <interpretationCode codeSystem="local" code="*" /> < referenceRange> <observationRange> <text> 4.5-11.0</text> </observationRange> </ referenceRange> </observation> </component> < component> <observation moodCode="EVN" classCode=" OBS"> <templateId root="2.16.840.1.564397.10.20.22.4.2& quot; /> <id nullFlavor="NA" /> <code codeSystem="local" code="100.0250" displayName="RED BLOOD COUNT" /> <statusCode code="completed" /&gt ; <effectiveTime value="642669786346" /> < value unit="M/MM3" xsi:type="PQ" value="5.43" /&gt ; <interpretationCode codeSystem="local" code="*&quot ; /> <referenceRange> <observationRange> & lt;text>4.00-5.20</text> </observationRange> </referenceRange> </observation> </component> <component> <observation moodCode="EVN" classCode=& quot;OBS"> <templateId root=" 2.16.840.1.220165.10.20.22.4.2" /> <id nullFlavor="NA& quot; /> <code codeSystem="local" code="100.0300& quot; displayName="HGB - HEMOGLOBIN" /> <statusCode code="completed" /> <effectiveTime value=" 990372871800" /> <value unit="GM/DL" xsi:type=& quot;PQ" value="15.3" /> <referenceRange> <observationRange> <text>12-16</text> </observationRange> </referenceRange> </ observation> </component> <component> < observation moodCode="EVN" classCode="OBS"> < templateId root="2.16.840.1.093841.10.20.22.4.2" /> < id nullFlavor="NA" /> <code codeSystem="local&quot ; code="100.0400" displayName="HCT - HEMATOCRIT" /> < statusCode code="completed" /> <effectiveTime value=& quot;112504553568" /> <value unit="%" xsi: type="PQ" value="45.6" /> <referenceRange&gt ; <observationRange> <text>36-46</text&gt ; </observationRange> </referenceRange> & lt;/observation> </component> <component> < observation moodCode="EVN" classCode="OBS"> < templateId root="2.16.840.1.491217.10.20.22.4.2" /> < id nullFlavor="NA" /> <code codeSystem="local&quot ; code="100.0550" displayName="MEAN CORPUSCULAR VOLUME" /&gt ; <statusCode code="completed" /> <effectiveTime value="027300132150" /> <value unit="UM3" xsi :type="PQ" value="84.0" /> <referenceRange&gt ; <observationRange> <text>80-100</text& gt; </observationRange> </referenceRange> </observation> </component> <component> &lt ;observation moodCode="EVN" classCode="OBS"> &lt ;templateId root="2.16.840.1.373486.10.20.22.4.2" /> < id nullFlavor="NA" /> <code codeSystem="local&quot ; code="100.0600" displayName="MEAN CORPUSCULAR HGB" /> <statusCode code="completed" /> < effectiveTime value="662233259505" /> <value unit=&quot ;UUG" xsi:type="PQ" value="28.2" /> < referenceRange> <observationRange> <text> 26-34</text> </observationRange> </ referenceRange> </observation> </component> < component> <observation moodCode="EVN" classCode=" OBS"> <templateId root="2.16.840.1.804288.10.20.22.4.2& quot; /> <id nullFlavor="NA" /> <code codeSystem="local" code="100.0650" displayName="MEAN CORPUSCULAR HGB CONC([facility]" /> <statusCode code=" completed" /> <effectiveTime value="110496280681" /> <value unit="GM/DL" xsi:type="PQ" value=& quot;33.6" /> <referenceRange> < observationRange> <text>31-37</text> < /observationRange> </referenceRange> </observation& gt; </component> <component> <observation moodCode="EVN" classCode="OBS"> <templateId root="2.16.840.1.310600.10.20.22.4.2" /> <id nullFlavor ="NA" /> <code codeSystem="local" code=" 100.0750" displayName="RDW STANDARD DEVIATION" /> &lt ;statusCode code="completed" /> <effectiveTime value=& quot;328262401272" /> <value unit="FL" xsi:type=& quot;PQ" value="41.8" /><referenceRange> < observationRange> <text>36.9-50.2</text> </observationRange> </referenceRange> </ observation> </component> <component> < observation moodCode="EVN" classCode="OBS"> < templateId root="2.16.840.1.766339.10.20.22.4.2" /> < id nullFlavor="NA" /> <code codeSystem="local&quot ; code="100.0850" displayName="PLT - PLATELET COUNT" /> <statusCode code="completed" /> < effectiveTime value="652635431474" /> <value unit="T/MM3& quot; xsi:type="PQ" value="330" /> < referenceRange> <observationRange> <text> 130-400</text> </observationRange> </ referenceRange> </observation> </component> < component> <observation moodCode="EVN" classCode=" OBS"> <templateId root="2.16.840.1.728481.10.20.22.4.2& quot; /> <id nullFlavor="NA" /> <code codeSystem="local" code="100.0950" displayName="MEAN PLATELET VOLUME" /> <statusCode code="completed" / > <effectiveTime value="907056816635" /> & lt;value unit="UM3" xsi:type="PQ" value="9.2" /&gt ; <interpretationCode codeSystem="local" code="*&quot ; /> <referenceRange> <observationRange> <text>9.4-12.4</text> </observationRange> </referenceRange> </observation> </component&gt ; <component> <observation moodCode="EVN" classCode ="OBS"> <templateId root=" 2.16.840.1.242792.10.20.22.4.2" /> <id nullFlavor="NA& quot; /> <code codeSystem="local" code="100.1050& quot; displayName="NEUTROPHILS % (AUTO)" /> < statusCode code="completed" /> <effectiveTime value=& quot;287498602081" /> <value unit="%" xsi: type="PQ" value="66.0" /> <referenceRange&gt ; <observationRange> <text>33-66</text&gt ; </observationRange> </referenceRange> & lt;/observation> </component> <component> < observation moodCode="EVN" classCode="OBS"> < templateId root="2.16.840.1.394809.10.20.22.4.2" /> < id nullFlavor="NA" /> <code codeSystem="local&quot ; code="100.1100" displayName="LYMPHOCYTES % (AUTO)&quot ; /> <statusCode code="completed" /> < effectiveTime value="856178404950" /> <value unit=&quot ;%" xsi:type="PQ" value="21.4" /> & lt;interpretationCode codeSystem="local" code="*" /> <referenceRange> <observationRange> <text& gt;23-45</text> </observationRange> </ referenceRange> </observation> </component> < component> <observation moodCode="EVN" classCode=" OBS"> <templateId root="2.16.840.1.622496.10.20.22.4.2" / > <id nullFlavor="NA" /> <code codeSystem="local" code="100.1150" displayName=" MONOCYTES % (AUTO)" /> <statusCode code=" completed" /> <effectiveTime value="251284120452" /> <value unit="%" xsi:type="PQ" value="6.3" /> <referenceRange> < observationRange> <text>0-9.0</text> < /observationRange> </referenceRange> </observation& gt; </component> <component> <observation moodCode=& quot;EVN" classCode="OBS"> <templateId root=" 2.16.840.1.313146.10.20.22.4.2" /> <id nullFlavor="NA& quot; /> <code codeSystem="local" code="100.1200& quot; displayName="EOSINOPHILS % (AUTO)" /> < statusCode code="completed" /> <effectiveTime value=& quot;792248124446" /> <value unit="%" xsi: type="PQ" value="5.6" /> < interpretationCodecodeSystem="local" code="*" /> <referenceRange> <observationRange> < text>0-4</text> </observationRange> </ referenceRange> </observation> </component> < component> <observation moodCode="EVN" classCode=" OBS"> <templateId root="2.16.840.1.607628.10.20.22.4.2& quot; /> <id nullFlavor="NA" /> <code codeSystem="local" code="100.1250" displayName=" BASOPHILS % (AUTO)" /> <statusCode code=" completed" /> <effectiveTime value="845703304533" /> <value unit="%" xsi:type="PQ" value=&quot ;0.3" /> <referenceRange> <observationRange > <text>0-2</text> </observationRange& gt; </referenceRange> </observation> </ component> <component> <observation moodCode="EVN& quot; classCode="OBS"> <templateId root=" 2.16.840.1.967744.10.20.22.4.2" /> <id nullFlavor="NA& quot; /> <code codeSystem="local" code="100.1275& quot; displayName="IMMATURE GRANULOCYTE % (AUTO)" /> <statusCode code="completed" /> <effectiveTime value="612883662977" /> <value unit="%& quot; xsi:type="PQ" value="0.4" /> < referenceRange> <observationRange> <text>0.0- 0.5</text> </observationRange> </ referenceRange> </observation> </component> < component> <observation moodCode="EVN" classCode=" OBS"> <templateId root="2.16.840.1.949188.10.20.22.4.2& quot; /> <id nullFlavor="NA" /> <code codeSystem="local" code="100.1300" displayName=" NEUTROPHILS # (AUTO)" /> <statusCode code="completed& quot; /> <effectiveTime value="721382168540" /> <value unit="T/MM3" xsi:type="PQ" value="8.3& quot; /> <interpretationCode codeSystem="local" code=& quot;*" /> <referenceRange> < observationRange> <text>1.8-7.7</text> & lt;/observationRange> </referenceRange> </observation> </component> <component> <observation moodCode=& quot;EVN" classCode="OBS"> <templateId root=" 2.16.840.1.188861.10.20.22.4.2" /> <id nullFlavor="NA& quot; /> <code codeSystem="local" code="100.1350& quot; displayName="LYMPHOCYTES # (AUTO)" /> < statusCode code="completed" /> <effectiveTime value=& quot;050635787331" /> <value unit="T/MM3" xsi:type ="PQ" value="2.7" /> <referenceRange> <observationRange> <text>1-4.8</text> </observationRange> </referenceRange> </ observation> </component> <component> < observation moodCode="EVN" classCode="OBS"> < templateId root="2.16.840.1.117514.10.20.22.4.2" /> < id nullFlavor="NA" /> <code codeSystem="local" code= "100.1400" displayName="MONOCYTES # (AUTO)" /> & lt;statusCode code="completed" /> <effectiveTime value= "839096228166" /> <value unit="T/MM3" xsi: type="PQ"value="0.8" /> <referenceRange> <observationRange> <text>0-0.8</text> </observationRange> </referenceRange> </ observation> </component> <component> < observation moodCode="EVN" classCode="OBS"> < templateId root="2.16.840.1.210642.10.20.22.4.2" /> < id nullFlavor="NA" /> <code codeSystem="local&quot ; code="100.1450" displayName="EOSINOPHILS # (AUTO)" /> <statusCode code="completed" /> < effectiveTime value="270217959517" /> <value unit=&quot ;T/MM3" xsi:type="PQ" value="0.7" /> < interpretationCode codeSystem="local" code="*" /> <referenceRange> <observationRange> < text>0-0.5</text> </observationRange> </ referenceRange> </observation> </component> < component> <observation moodCode="EVN" classCode=" OBS"> <templateId root="2.16.840.1.087041.10.20.22.4.2& quot; /> <id nullFlavor="NA" /> <code codeSystem="local" code="100.1500" displayName=" BASOPHILS # (AUTO)" /> <statusCode code="completed&quot ; /> <effectiveTime value="424242448589" /> <value unit="T/MM3" xsi:type="PQ" value="0.0&quot ; /> <referenceRange> <observationRange> <text>0-0.2</text> </observationRange> </referenceRange> </observation> </component> <component> <observation moodCode="EVN" classCode= "OBS"> <templateId root=" 2.16.840.1.923990.10.20.22.4.2" /> <id nullFlavor="NA& quot; /> <code codeSystem="local" code="100.1525& quot; displayName="IMMATURE GRANULOCYTE # (AUTO)" /> < statusCode code="completed" /> <effectiveTime value=& quot;473634838575" /> <value unit="T/MM3" xsi:type ="PQ" value="0.05" /> <interpretationCode codeSystem="local" code="*" /> < referenceRange> <observationRange> <text> 0.00-0.03</text> </observationRange> </ referenceRange> </observation> </component> </ organizer> </entry> <entry> <organizer moodCode="EVN " classCode="BATTERY"> <templateId root=" 2.16.840.1.572953.10.20.22.4.1" /> <id nullFlavor="NA&quot ; /> <code codeSystem="local" code="LCMP" displayName="L200.0020" /> <statusCode code="completed " /> <component> <observation moodCode="EVN& quot; classCode="OBS"> <templateId root=" 2.16.840.1.585937.10.20.22.4.2" /> <id nullFlavor="NA" /> <code codeSystem="local" code="300.0400" displayName="FUNGAL CULTURE." /> <statusCode code=&quot ;completed" /> <effectiveTime value="124219437128&quot ; /> <valueunit="MG/DL" xsi:type="PQ" value=& quot;1.0" /> <referenceRange> < observationRange> <text>0.7-1.2</text> & lt;/observationRange> </referenceRange> </ observation> </component> <component> < observation moodCode="EVN" classCode="OBS"> < templateId root="2.16.840.1.903316.10..22.4.2" /> < id nullFlavor="NA" /> <code codeSystem="local&quot ; code="300.0450" displayName="FUNGAL CULTURE, BLOOD." /&gt ; <statusCode code="completed" /> < effectiveTime value="329989232950" /> <value unit=&quot ;RATIO" xsi:type="PQ" value="13" /> < referenceRange> <observationRange> <text> 6-26</text> </observationRange> </ referenceRange> </observation> </component> < component> <observation moodCode="EVN" classCode=" OBS"> <templateId root="2.16.840.1.377737.10..22.4.2& quot; /> <id nullFlavor="NA" /> <code codeSystem="local" code="300.0100" displayName="NA - Sodium" /> <statusCode code="completed" /> & lt;effectiveTime value="293180451821" /> <value unit=& quot;MEQ/L"xsi:type="PQ" value="145" /> &lt ;interpretationCode codeSystem="local" code="*" /> <referenceRange> <observationRange> < text>134-144</text> </observationRange> </ referenceRange> </observation> </component> < component><observation moodCode="EVN" classCode="OBS"& gt; <templateId root="2.16.840.1.438767.10.20.22.4.2" /&gt ; <id nullFlavor="NA" /> <code codeSystem=" local" code="300.0150" displayName="Potassium" /> <statusCode code="completed" /> < effectiveTime value="017921280513" /> <value unit=&quot ;MEQ/L" xsi:type="PQ" value="4.3" /> < referenceRange> <observationRange><text>3.6-5</text > </observationRange> </referenceRange> </observation> </component> <component> &lt ;observation moodCode="EVN" classCode="OBS"> &lt ;templateId root="2.16.840.1.447166.10.20.22.4.2" /> < id nullFlavor="NA" /> <code codeSystem="local&quot ; code="300.0200" displayName="Chloride" /> < statusCode code="completed" /> <effectiveTime value=& quot;695007130823" /> <value unit="MEQ/L" xsi:type ="PQ" value="107" /> <referenceRange> <observationRange> <text>98-107</text> </observationRange> </referenceRange> </ observation> </component> <component> < observation moodCode="EVN" classCode="OBS"> < templateId root="2.16.840.1.038017.10.20.22.4.2" /> < id nullFlavor="NA" /> <code codeSystem="local&quot ; code="300.0250" displayName="CO2 - Carbon Dioxide" /> <statusCode code="completed" /> < effectiveTime value="465053350913" /> <value unit=" MEQ/L" xsi:type="PQ" value="25" /> < referenceRange> <observationRange> <text> 22-30</text> </observationRange> </ referenceRange> </observation> </component> < component> <observation moodCode="EVN" classCode=" OBS"> <templateId root="2.16.840.1.977270.10.20.22.4.2& quot; /> <id nullFlavor="NA" /> <code codeSystem="local" code="300.0300" displayName="Anion Gap" /> <statusCode code="completed" /> <effectiveTime value="112954510635" /> <value unit="MEQ/L" xsi:type="PQ" value="13" /> <referenceRange> <observationRange> < text>5-15</text> </observationRange> </ referenceRange> </observation> </component> < component> <observation moodCode="EVN" classCode=" OBS"> <templateId root="2.16.840.1.624606.10.20.22.4.2& quot; /> <id nullFlavor="NA" /> <code codeSystem="local" code="300.0350"displayName="BUN - Blood Urea Nitrogen" /> <statusCode code="completed& quot; /> <effectiveTime value="699368825757" /> <value unit="MG/DL" xsi:type="PQ" value="13.0& quot; /> <referenceRange> <observationRange> <text>7-17</text> </observationRange&gt ; </referenceRange> </observation> </ component> <component> <observation moodCode="EVN& quot; classCode="OBS"> <templateId root=" 2.16.840.1.280111.10.20.22.4.2" /> <id nullFlavor="NA& quot; /> <code codeSystem="local" code="300.0410& quot; displayName="Glomerular Filtration Rate" /> < statusCode code="completed" /> <effectiveTime value=& quot;527626654674" /> <value unit="" xsi:type=& quot;PQ" value="65" /> <referenceRange> < observationRange> <text>NRG</text> </ observationRange> </referenceRange> </observation&gt ; </component> <component> <observation moodCode ="EVN" classCode="OBS"> <templateId root=& quot;2.16.840.1.020715.10.20.22.4.2" /> <id nullFlavor=&quot ;NA" /> <code codeSystem="local" code=" 300.0500" displayName="Glucose" /> <statusCode code="completed" /> <effectiveTime value=" 017641731069" /> <value unit="MG/DL" xsi:type=& quot;PQ" value="91" /> <referenceRange> <observationRange> <text>65-110</text> </observationRange> </referenceRange> </ observation> </component> <component> < observation moodCode="EVN" classCode="OBS"> < templateId root="2.16.840.1.398788.10.20.22.4.2" /> < id nullFlavor="NA" /> <code codeSystem="local" code= "300.2000" displayName="Osmolality,Calculated" /> <statusCode code="completed" /> <effectiveTime value="541351348453" /> <value unit="MOSM/KG&quot ; xsi:type="PQ" value="279" /> < referenceRange> <observationRange> <text> 261-280</text> </observationRange> </ referenceRange> </observation> </component> < component> <observation moodCode="EVN" classCode=" OBS"> <templateId root="[id number]& quot; /> <id nullFlavor="NA" /><code codeSystem=& quot;local" code="300.2200" displayName="Calcium" /&gt ; <statusCode code="completed" /> < effectiveTime value="[id number]" /> <value unit=&quot ;MG/DL" xsi:type="PQ" value="10.0" /> < referenceRange> <observationRange> <text> 8.4-10.2</text> </observationRange> </ referenceRange> </observation> </component> < component> <observation moodCode="EVN" classCode=" OBS"> <templateId root="2.16.840.1.424307.10.20.22.4.2& quot; /> <id nullFlavor="NA" /> <code codeSystem="local" code="300.2700" displayName=" Bilirubin,Total" /> <statusCode code="completed" /> <effectiveTime value="676794262868" /> <value unit="MG/DL" xsi:type="PQ" value="0.80"/> <referenceRange> <observationRange> &lt ;text>0.20-1.30</text> </observationRange> & lt;/referenceRange> </observation> </component> <component> <observation moodCode="EVN" classCode=& quot;OBS"> <templateId root=" 2.16.840.1.033098.10.20.22.4.2" /> <id nullFlavor="NA& quot; /> <code codeSystem="local" code="300.2975& quot; displayName="Alkaline Phosphatase" /> < statusCode code="completed" /> <effectiveTime value=& quot;997321558386" /> <value unit="U/L" xsi:type=& quot;PQ" value="91" /> <referenceRange> <observationRange> <text>38-126</text> </observationRange> </referenceRange> </ observation> </component> <component> < observation moodCode="EVN" classCode="OBS"> < templateId root="2.16.840.1.797350.10.20.22.4.2" /> < id nullFlavor="NA" /> <code codeSystem="local&quot ; code="300.3050" displayName="AST - Aspartate Amino Transfer& quot; /> <statusCode code="completed" /> & lt;effectiveTime value="324398568182" /> <value unit=& quot;U/L" xsi:type="PQ" value="22" /> < referenceRange> <observationRange> <text> 14-36</text> </observationRange> </ referenceRange> </observation> </component> < component> <observation moodCode="EVN" classCode=" OBS"> <templateId root="2.16.840.1.564998.10.20.22.4.2& quot; /> <id nullFlavor="NA" /> <code codeSystem="local" code="300.3100" displayName="ALT& quot; /> <statusCode code="completed" /> & lt;effectiveTime value="779474640862" /> <valueunit=& quot;U/L" xsi:type="PQ" value="37" /> < referenceRange> <observationRange> <text> 9-52</text> </observationRange> </ referenceRange> </observation> </component> < component> <observation moodCode="EVN" classCode=" OBS"> <templateId root="2.16.840.1.266643.10.20.22.4.2& quot; /> <id nullFlavor="NA" /> <code codeSystem="local" code="300.3110" displayName="TP - Total Protein" /> <statusCode code="completed" /& gt; <effectiveTime value="073800210285" /> &lt ;value unit="G/DL" xsi:type="PQ" value="7.5" /&gt ; <referenceRange> <observationRange> < text>6.3-8.2</text> </observationRange> </ referenceRange> </observation> </component> < component> <observation moodCode="EVN" classCode=" OBS"> <templateId root="2.16.840.1.000646.10.20.22.4.2" /& gt; <id nullFlavor="NA" /> <code codeSystem ="local" code="300.3120" displayName="Albumin Level& quot; /> <statusCode code="completed" /> & lt;effectiveTime value="660637033887" /> <value unit=& quot;G/DL" xsi:type="PQ" value="4.7" /> &lt ;referenceRange> <observationRange> <text&gt ;3.5-5.0</text> </observationRange> </ referenceRange> </observation> </component> < component> <observation moodCode="EVN" classCode=" OBS"> <templateId root="2.16.840.1.569899.10.20.22.4.2& quot; /> <id nullFlavor="NA" /> <code codeSystem="local" code="300.3130" displayName=" Globulin" /> <statusCode code="completed" /> <effectiveTime value="360640749310" /> < value unit="G/DL" xsi:type="PQ" value="2.8" /> <referenceRange> <observationRange> < text>2.4-3.6</text> </observationRange> </ referenceRange> </observation> </component> < component> <observation moodCode="EVN" classCode=" OBS"> <templateId root="2.16.840.1.258011.10.20.22.4.2& quot; /> <id nullFlavor="NA" /> <code codeSystem="local" code="300.3140" displayName="Albumin /Globulin Ratio" /> <statusCode code="completed" / > <effectiveTime value="975749983923" /> & lt;value unit="RATIO" xsi:type="PQ" value="1.7" /& gt; <referenceRange> <observationRange> < text>1.1-2.2</text> </observationRange> </ referenceRange> </observation> </component> < component> <observation moodCode="EVN" classCode=" OBS"> <templateId root="2.16.840.1.085815.10.20.22.4.2& quot; /> <id nullFlavor="NA" /> <code codeSystem="local" code="300.0095" displayName=" LICTERUS" /> <statusCode code="completed" /> & lt;effectiveTime value="359838531930" /> <value unit=& quot;" xsi:type="PQ" value="2" /> < referenceRange> <observationRange> <text> 0-7</text> </observationRange> </ referenceRange> </observation> </component> < component> <observation moodCode="EVN" classCode=" OBS"> <templateId root="2.16.840.1.418962.10.20.22.4.2& quot; /> <id nullFlavor="NA" /> <code codeSystem="local" code="300.0096" displayName=" LHEMOLYSIS" /> <statusCode code="completed" /> <effectiveTime value="239740661129" /> < value unit="" xsi:type="PQ" value="15" /> <referenceRange> <observationRange> &lt ;text>0-25</text> </observationRange> </ referenceRange> </observation> </component> < component> <observation moodCode="EVN" classCode=" OBS"> <templateId root="2.16.840.1.153113.10.20.22.4.2& quot; /> <id nullFlavor="NA" /> <code codeSystem="local" code="300.0097"displayName=" LTURBIDITY" /> <statusCode code="completed" /> <effectiveTime value="165275840577" /> <value unit="" xsi:type="PQ" value="20" /> & lt;referenceRange> <observationRange> <text& gt;0-20</text> </observationRange> </referenceRange& gt; </observation> </component> </organizer> & lt;/entry> <entry> <organizer moodCode="EVN" classCode ="BATTERY"> <templateId root=" 2.16.840.1.881818.10.20.22.4.1" /> <id nullFlavor="NA&quot ; /> <code codeSystem="local" code="LCBC" displayName="L100.0050" /> <statusCode code="completed " /> <component> <observation moodCode="EVN& quot; classCode="OBS"> <templateId root=" 2.16.840.1.693289.10.20.22.4.2" /> <id nullFlavor="NA& quot; /> <code codeSystem="local" code="100.0150& quot; displayName="WBC -WHITE BLOOD COUNT" /> < statusCode code="completed" /> <effectiveTime value=& quot;246675389513" /> <value unit="T/MM3" xsi:type ="PQ" value="13.7" /> <interpretationCode codeSystem="local" code="*" /> < referenceRange> <observationRange> <text>4.5- 11.0</text> </observationRange> </ referenceRange> </observation> </component> < component> <observation moodCode="EVN" classCode=" OBS"> <templateId root="2.16.840.1.731232.10.20.22.4.2& quot; /> <id nullFlavor="NA" /> <code codeSystem="local" code="100.0250" displayName="RED BLOOD COUNT"/> <statusCode code="completed" /> <effectiveTime value="618454369327" /> < value unit="M/MM3" xsi:type="PQ" value="4.92" /&gt ; <referenceRange> <observationRange><text&gt ;4.00-5.20</text> </observationRange> </ referenceRange> </observation> </component> < component> <observation moodCode="EVN" classCode=" OBS"> <templateId root="2.16.840.1.555072.10.20.22.4.2& quot; /> <id nullFlavor="NA" /> <code codeSystem="local" code="100.0300" displayName="HGB - HEMOGLOBIN" /> <statusCode code="completed" /> <effectiveTime value="332656540376" /> < value unit="GM/DL" xsi:type="PQ" value="14.1" /&gt ; <referenceRange> <observationRange> <text>12-16</text> </observationRange> </referenceRange></observation> </component> < component> <observation moodCode="EVN" classCode=" OBS"> <templateId root="2.16.840.1.151797.10.20.22.4.2& quot; /> <id nullFlavor="NA" /> <code codeSystem="local" code="100.0400" displayName="HCT - HEMATOCRIT" /> <statusCode code="completed" /> <effectiveTime value="370124964845" /> < value unit="%" xsi:type="PQ" value="41.6"/ > <referenceRange> <observationRange> <text>36-46</text> </observationRange> </referenceRange> </observation> </component&gt ; <component> <observation moodCode="EVN" classCode="OBS"> <templateId root=" 2.16.840.1.200487.10.20.22.4.2" /> <id nullFlavor="NA& quot; /> <code codeSystem="local" code="100.0550& quot; displayName="MEAN CORPUSCULAR VOLUME" /> < statusCode code="completed" /> <effectiveTime value=& quot;485165267778" /> <value unit="UM3" xsi:type=& quot;PQ" value="84.6" /> <referenceRange> <observationRange> <text>80-100</text> </observationRange> </referenceRange> </ observation> </component> <component> < observation moodCode="EVN" classCode="OBS"> < templateId root="2.16.840.1.169181.10.20.22.4.2" /> < id nullFlavor="NA" /> <code codeSystem="local&quot ; code="100.0600" displayName="MEAN CORPUSCULAR HGB" /> <statusCode code="completed" /> < effectiveTime value="216801471507" /> <value unit=" UUG" xsi:type="PQ" value="28.7" /> < referenceRange> <observationRange> <text> 26-34</text> </observationRange> </ referenceRange> </observation> </component> < component> <observation moodCode="EVN" classCode=" OBS"> <templateId root="2.16.840.1.583217.10.20.22.4.2& quot; /> <id nullFlavor="NA" /> <code codeSystem="local" code="100.0650" displayName="MEAN CORPUSCULAR HGB CONC([facility]" /> <statusCode code=" completed" /> <effectiveTime value="946316654528" /> <value unit="GM/DL" xsi:type="PQ" value=& quot;33.9" /> <referenceRange> <observationRange& gt; <text>31-37</text> </observationRange > </referenceRange> </observation> </ component> <component> <observation moodCode="EVN& quot; classCode="OBS"> <templateId root=" 2.16.840.1.765430.10..22.4.2" /> <id nullFlavor="NA& quot; /> <code codeSystem="local" code="100.0750& quot; displayName="RDW STANDARD DEVIATION" /> < statusCodecode="completed" /> <effectiveTime value=& quot;742544745702" /> <value unit="FL" xsi:type=" PQ" value="40.6" /> <referenceRange> <observationRange> <text>36.9-50.2</text> </observationRange> </referenceRange> </ observation> </component> <component> < observation moodCode="EVN" classCode="OBS"> < templateId root="2.16.840.1.955210.10.20.22.4.2" /> <id nullFlavor="NA" /> <code codeSystem="local" code="100.0850" displayName="PLT - PLATELET COUNT" /> <statusCode code="completed" /> < effectiveTime value="816317501731" /> <value unit=&quot ;T/MM3" xsi:type="PQ" value="308" /> < referenceRange> <observationRange> <text> 130-400</text> </observationRange> </ referenceRange> </observation> </component> < component> <observation moodCode="EVN" classCode=" OBS"> <templateId root="2.16.840.1.715592.10.20.22.4.2& quot; /> <id nullFlavor="NA" /> <code codeSystem="local" code="100.0950" displayName="MEAN PLATELET VOLUME" /> <statusCode code="completed" / > <effectiveTime value="877116303643" /> & lt;value unit="UM3" xsi:type="PQ" value="9.1" /&gt ; <interpretationCode codeSystem="local" code="*&quot ; /> <referenceRange> <observationRange> <text>9.4-12.4</text> </observationRange> </referenceRange> </observation> </component>< component> <observation moodCode="EVN" classCode=" OBS"> <templateId root="2.16.840.1.828109.10.20.22.4.2" /> <id nullFlavor="NA" /> <code codeSystem="local" code="100.1050" displayName=" NEUTROPHILS % (AUTO)" /> <statusCode code=" completed" /> <effectiveTime value="992077644090" /> <value unit="%" xsi:type="PQ" value="60.1" /> <referenceRange> < observationRange> <text>33-66</text> < /observationRange> </referenceRange> </observation& gt; </component> <component> <observation moodCode="EVN" classCode="OBS"> <templateId root="2.16.840.1.741806.10.20.22.4.2" /> <id nullFlavor ="NA" /> <code codeSystem="local" code=" 100.1100" displayName="LYMPHOCYTES % (AUTO)" /> <statusCode code="completed" /> <effectiveTime value="428405087845" /> <value unit="%& quot; xsi:type="PQ" value="24.6" /> < referenceRange> <observationRange> <text> 23-45</text> </observationRange> </ referenceRange> </observation> </component> < component> <observation moodCode="EVN" classCode=" OBS"> <templateId root="2.16.840.1.707013.10.20.22.4.2& quot; /> <id nullFlavor="NA" /> <code codeSystem="local" code="100.1150" displayName=" MONOCYTES % (AUTO)" /> <statusCode code=" completed" /> <effectiveTime value="070334482626" /> <value unit="%" xsi:type="PQ" value="7.5" /> <referenceRange> < observationRange> <text>0-9.0</text> < /observationRange> </referenceRange> </observation& gt; </component> <component> <observation moodCode="EVN" classCode="OBS"> <templateId root="2.16.840.1.283868.10.20.22.4.2" /> <idnullFlavor= "NA" /> <code codeSystem="local" code=" 100.1200" displayName="EOSINOPHILS % (AUTO)" /> <statusCode code="completed" /> <effectiveTime value="927841926414" /> <value unit="%& quot; xsi:type="PQ" value="7.0" /> < interpretationCode codeSystem="local" code="*" /> <referenceRange> <observationRange> <text& gt;0-4</text> </observationRange> </ referenceRange> </observation> </component> < component> <observation moodCode="EVN" classCode=" OBS"> <templateId root="2.16.840.1.546076.10.20.22.4.2" / > <id nullFlavor="NA" /> <code codeSystem="local" code="100.1250" displayName=" BASOPHILS % (AUTO)" /> <statusCode code=" completed" /> <effectiveTime value="566562225432" /> <value unit="%" xsi:type="PQ" value="0.4" /> <referenceRange> < observationRange> <text>0-2</text> </ observationRange> </referenceRange> </observation&gt ; </component> <component> <observation moodCode ="EVN" classCode="OBS"> <templateId root=" 2.16.840.1.210337.10.20.22.4.2" /> <id nullFlavor="NA& quot; /> <code codeSystem="local" code="100.1275& quot; displayName="IMMATURE GRANULOCYTE % (AUTO)" /> <statusCode code="completed" /> <effectiveTime value="244796764502" /> <value unit="%& quot; xsi:type="PQ" value="0.4" /> < referenceRange> <observationRange> <text> 0.0-0.5</text> </observationRange> </ referenceRange> </observation> </component> < component> <observation moodCode="EVN" classCode=" OBS"> <templateId root="2.16.840.1.967995.10.20.22.4.2& quot; /> <id nullFlavor="NA" /> <code codeSystem="local" code="100.1300" displayName=" NEUTROPHILS # (AUTO)" /> <statusCode code="completed& quot; /> <effectiveTime value="054318353507" /> <value unit="T/MM3" xsi:type="PQ" value="8.2& quot; /> <interpretationCode codeSystem="local" code=& quot;*" /> <referenceRange> < observationRange> <text>1.8-7.7</text> & lt;/observationRange> </referenceRange> </ observation> </component> <component> < observation moodCode="EVN" classCode="OBS"> < templateId root="2.16.840.1.944828.10.20.22.4.2" /> < id nullFlavor="NA" /> <code codeSystem="local&quot ; code="100.1350" displayName="LYMPHOCYTES # (AUTO)" /> <statusCode code="completed" /> <effectiveTime value ="396620015058" /> <value unit="T/MM3" xsi: type="PQ" value="3.4" /> <referenceRange> <observationRange> <text>1-4.8</text&gt ; </observationRange> </referenceRange> </ observation> </component> <component> < observation moodCode="EVN" classCode="OBS"> < templateId root="2.16.840.1.376485.10.20.22.4.2" /> < id nullFlavor="NA" /> <code codeSystem="local&quot ; code="100.1400" displayName="MONOCYTES # (AUTO)" /> <statusCode code="completed" /> < effectiveTime value="782561740982" /> <value unit=&quot ;T/MM3" xsi:type="PQ" value="1.0" /> < interpretationCode codeSystem="local" code="*" /> <referenceRange> <observationRange> <text>0- 0.8</text> </observationRange> </ referenceRange> </observation> </component> < component> <observation moodCode="EVN" classCode=" OBS"> <templateId root="2.16.840.1.971681.10.20.22.4.2& quot; /> <id nullFlavor="NA" /> <code codeSystem="local" code="100.1450" displayName=" EOSINOPHILS # (AUTO)" /> <statusCode code="completed& quot; /> <effectiveTime value="991787885415" /> <value unit="T/MM3" xsi:type="PQ" value="1.0& quot; /> <interpretationCode codeSystem="local" code=& quot;*" /> <referenceRange> < observationRange> <text>0-0.5</text> < /observationRange> </referenceRange> </observation& gt; </component> <component> <observation moodCode="EVN" classCode="OBS"> <templateId root="2.16.840.1.266406.10.20.22.4.2" /> <id nullFlavor ="NA" /> <code codeSystem="local" code=" 100.1500" displayName="BASOPHILS # (AUTO)" /> < statusCode code="completed" /> <effectiveTime value=& quot;654113956677" /> <value unit="T/MM3" xsi:type=& quot;PQ" value="0.1" /><referenceRange> < observationRange> <text>0-0.2</text> < /observationRange> </referenceRange> </observation& gt; </component> <component> <observation moodCode ="EVN" classCode="OBS"> <templateId root=& quot;2.16.840.1.094847.10.20.22.4.2" /> <id nullFlavor=" NA" /> <code codeSystem="local" code=" 100.1525" displayName="IMMATURE GRANULOCYTE # (AUTO)" /> <statusCode code="completed" /> <effectiveTime value="184722569324" /> <value unit="T/MM3" xsi :type="PQ" value="0.05" /> <interpretationCode codeSystem="local" code="*" /> < referenceRange> <observationRange> <text> 0.00-0.03</text> </observationRange> </referenceRange > </observation> </component> </organizer> </entry> <entry> <organizer moodCode="EVN" classCode="BATTERY"> <templateId root=" 2.16.840.1.753498.10.20.22.4.1" /> <id nullFlavor="NA&quot ; /> <code codeSystem="local" code="LCMP" displayName="L200.0020" /> <statusCode code="completed " /> <component> <observation moodCode="EVN& quot; classCode="OBS"> <templateId root=" 2.16.840.1.054043.10.20.22.4.2" /> <id nullFlavor="NA" /&gt ; <code codeSystem="local" code="300.0400" displayName="FUNGAL CULTURE." /> <statusCode code=&quot ;completed" /> <effectiveTime value="359732960066&quot ; /> <value unit="MG/DL" xsi:type="PQ" value= "1.1" /> <referenceRange> < observationRange> <text>0.7-1.2</text> & lt;/observationRange> </referenceRange> </ observation> </component> <component> < observation moodCode="EVN" classCode="OBS"> < templateId root="2.16.840.1.357303.10..22.4.2" /> < id nullFlavor="NA" /> <code codeSystem="local&quot ; code="300.0450" displayName="FUNGAL CULTURE, BLOOD." /&gt ; <statusCode code="completed" /> < effectiveTime value="164183801421" /> <value unit=&quot ;RATIO" xsi:type="PQ" value="14" /> < referenceRange> <observationRange> <text>6-26 </text> </observationRange> </referenceRange& gt; </observation> </component> <component> <observation moodCode="EVN" classCode="OBS"> &lt ;templateId root="2.16.840.1.317960.10..22.4.2" /> < id nullFlavor="NA" /> <code codeSystem="local&quot ; code="300.0100" displayName="NA - Sodium" /> & lt;statusCode code="completed" /><effectiveTime value=" 668824888609" /> <value unit="MEQ/L" xsi:type=& quot;PQ" value="144" /> <referenceRange> <observationRange> <text>134-144</text> </observationRange> </referenceRange> </ observation> </component> <component> < observation moodCode="EVN" classCode="OBS"> < templateId root="2.16.840.1.619114.10.20.22.4.2" /> < id nullFlavor="NA"/> <code codeSystem="local&quot ; code="300.0150" displayName="Potassium" /> &lt ;statusCode code="completed" /> <effectiveTime value=& quot;618728699589" /> <value unit="MEQ/L" xsi:type ="PQ" value="4.0" /> <referenceRange> <observationRange> <text>3.6-5</text> </observationRange> </referenceRange> </ observation> </component> <component> < observation moodCode="EVN" classCode="OBS"> < templateId root="2.16.840.1.291819.10.20.22.4.2" /> < id nullFlavor="NA" /> <code codeSystem="local&quot ; code="300.0200" displayName="Chloride" /> < statusCode code="completed" /> <effectiveTime value=& quot;459929498335" /> <value unit="MEQ/L" xsi:type ="PQ" value="105" /> <referenceRange> <observationRange> <text>98-107</text> </observationRange> </referenceRange> < /observation> </component> <component> < observation moodCode="EVN" classCode="OBS"> < templateId root="2.16.840.1.090637.10.20.22.4.2" /> < id nullFlavor="NA" /> <code codeSystem="local&quot ; code="300.0250" displayName="CO2 - Carbon Dioxide" />& lt;statusCode code="completed" /> <effectiveTime value= "657785732074" /> <value unit="MEQ/L" xsi: type="PQ" value="27" /> <referenceRange> <observationRange> <text>22-30</text> </observationRange> </referenceRange> & lt;/observation> </component> <component> < observation moodCode="EVN" classCode="OBS"> < templateId root="2.16.840.1.402660.10..22.4.2" /> < id nullFlavor="NA" /> <code codeSystem="local&quot ; code="300.0300" displayName="Anion Gap" /> &lt ;statusCode code="completed" /> <effectiveTime value=& quot;282743804829" /><value unit="MEQ/L" xsi:type="PQ& quot; value="12" /> <referenceRange> < observationRange> <text>5-15</text> </ observationRange> </referenceRange> </observation&gt ; </component> <component> <observation moodCode ="EVN" classCode="OBS"> <templateId root=& quot;2.16.840.1.304740.10.20.22.4.2" /><id nullFlavor="NA" /> <code codeSystem="local" code="300.0350" displayName="BUN - Blood Urea Nitrogen" /> <statusCode code="completed" /> <effectiveTime value=" 741694144971" /> <value unit="MG/DL" xsi:type=& quot;PQ" value="15.0" /> <referenceRange> <observationRange> <text>7-17</text> </ observationRange> </referenceRange> </observation&gt ; </component> <component> <observation moodCode ="EVN" classCode="OBS"> <templateId root=& quot;2.16.840.1.765048.10.20.22.4.2" /> <id nullFlavor=&quot ;NA" /> <code codeSystem="local" code=" 300.0410" displayName="Glomerular Filtration Rate" /> <statusCode code="completed" /> <effectiveTime value="541372758257" /> <value unit="" xsi: type="PQ" value="58" /> <referenceRange> <observationRange> <text>NRG</text> </observationRange> </referenceRange> < /observation> </component> <component> < observation moodCode="EVN" classCode="OBS"> < templateId root="2.16.840.1.685492.10.20.22.4.2" /> < id nullFlavor="NA" /> <code codeSystem="local&quot ; code="300.0500" displayName="Glucose" /> < statusCode code="completed" /> <effectiveTime value=" 841267707470" /> <value unit="MG/DL" xsi:type=& quot;PQ" value="98" /> <referenceRange> <observationRange> <text>65-110</text> </observationRange> </referenceRange> </ observation> </component> <component> < observation moodCode="EVN" classCode="OBS"> < templateId root="2.16.840.1.344192.10.20.22.4.2" /> < id nullFlavor="NA" /> <code codeSystem="local&quot ; code="300.2000" displayName="Osmolality,Calculated" /> <statusCode code="completed" /> < effectiveTime value="347048330003" /> <value unit=&quot ;MOSM/KG" xsi:type="PQ" value="278" /> < referenceRange> <observationRange> <text> 261-280</text> </observationRange> </referenceRange& gt; </observation> </component> <component> <observation moodCode="EVN" classCode="OBS"> <templateId root="2.16.840.1.512300.10.20.22.4.2" /> <id nullFlavor="NA" /> <code codeSystem=" local" code="300.2200" displayName="Calcium" /> <statusCode code="completed" /> < effectiveTime value="575446674205" /> <value unit=&quot ;MG/DL" xsi:type="PQ" value="9.1" /> < referenceRange> <observationRange> <text>8.4-10.2& lt;/text> </observationRange> </referenceRange& gt; </observation> </component> <component> <observation moodCode="EVN" classCode="OBS"> <templateId root="2.16.840.1.747099.10.20.22.4.2" /> <id nullFlavor="NA" /> <code codeSystem=&quot ;local" code="300.2700" displayName="Bilirubin,Total" / > <statusCode code="completed" /> < effectiveTime value="543980044335" /> <value unit=&quot ;MG/DL" xsi:type="PQ" value="0.60" /> < referenceRange> <observationRange> <text> 0.20-1.30</text> </observationRange> </ referenceRange> </observation> </component> < component> <observation moodCode="EVN" classCode=" OBS"> <templateId root="2.16.840.1.962131.10.20.22.4.2& quot; /> <id nullFlavor="NA" /> <code codeSystem="local" code="300.5575" displayName=" Alkaline Phosphatase" /> <statusCode code="completed&quot ; /> <effectiveTime value="745724599305" /> <value unit="U/L" xsi:type="PQ" value="77" /& gt; <referenceRange> <observationRange> <text>38-126</text> </observationRange> </referenceRange> </observation> </component&gt ; <component> <observation moodCode="EVN" classCode="OBS"> <templateId root=" 2.16.840.1.541211.10.20.22.4.2" /> <id nullFlavor="NA& quot; /> <code codeSystem="local" code="300.3050& quot; displayName="AST - Aspartate Amino Transfer" /> < statusCode code="completed" /> <effectiveTime value=& quot;512524912459" /> <value unit="U/L" xsi:type=& quot;PQ" value="18" /> <referenceRange> <observationRange> <text>14-36</text> </observationRange> </referenceRange> </ observation> </component> <component> < observation moodCode="EVN" classCode="OBS"> < templateId root="[id number]" /> < id nullFlavor="NA" /> <code codeSystem="local&quot ; code="300.3100" displayName="ALT" /> < statusCode code="completed" /> <effectiveTime value=& quot;[id number]" /><value unit="U/L" xsi:type="PQ& quot; value="45" /> <referenceRange> < observationRange> <text>9-52</text> </ observationRange> </referenceRange> </observation&gt ; </component> <component> <observation moodCode ="EVN" classCode="OBS"> <templateId root=& quot;[id number]" /> <id nullFlavor=&quot ;NA" /> <code codeSystem="local" code=" 300.3110" displayName="TP - Total Protein" /> < statusCode code="completed" /> <effectiveTime value=& quot;309162621484" /> <value unit="G/DL" xsi:type= "PQ" value="6.9" /> <referenceRange> <observationRange> <text>6.3-8.2</text> </observationRange> </referenceRange> < /observation> </component> <component> < observation moodCode="EVN" classCode="OBS"> < templateId root="2.16.840.1.206749.10..22.4.2" /> < id nullFlavor="NA" /> <code codeSystem="local&quot ; code="300.3120"displayName="Albumin Level" /> <statusCode code="completed" /> <effectiveTime value= "545829820791" /> <value unit="G/DL" xsi:type ="PQ" value="4.2" /> <referenceRange> <observationRange> <text>3.5-5.0</text> </observationRange> </referenceRange> &lt ;/observation> </component> <component> < observation moodCode="EVN" classCode="OBS"> < templateId root="2.16.840.1.576458.10.20.22.4.2" /> < id nullFlavor="NA" /> <code codeSystem="local&quot ; code="300.3130" displayName="Globulin" /> < statusCode code="completed" /> <effectiveTime value=& quot;473032797712" /> <value unit="G/DL" xsi:type= "PQ" value="2.7" /> <referenceRange> <observationRange> <text>2.4-3.6</text> </observationRange> </referenceRange> < /observation> </component> <component><observation moodCode="EVN" classCode="OBS"> <templateId root="2.16.840.1.235639.10.20.22.4.2" /> <id nullFlavor ="NA" /> <code codeSystem="local" code=" 300.3140" displayName="Albumin/Globulin Ratio" /> &lt ;statusCode code="completed" /> <effectiveTime value=& quot;588042806831" /> <value unit="RATIO" xsi:type ="PQ" value="1.6" /> <referenceRange> <observationRange> <text>1.1-2.2</text> </observationRange> </referenceRange> < /observation> </component> <component> < observation moodCode="EVN" classCode="OBS"> < templateId root="2.16.840.1.645946.10.20.22.4.2" /> < id nullFlavor="NA" /><code codeSystem="local" code=& quot;300.0095" displayName="LICTERUS" /> < statusCode code="completed" /> <effectiveTime value=& quot;790699375160" /> <value unit="" xsi:type=& quot;PQ" value="< 2.0" /> <referenceRange& gt; <observationRange> <text>0-7</text&gt ; </observationRange> </referenceRange> </ observation> </component> <component> < observation moodCode="EVN" classCode="OBS"> < templateId root="2.16.840.1.789555.10.20.22.4.2" /> < id nullFlavor="NA" /> <code codeSystem="local&quot ; code="300.0096" displayName="LHEMOLYSIS" /> & lt;statusCode code="completed" /> <effectiveTime value= "155596897466"/> <value unit="" xsi:type=& quot;PQ" value="< 15.0" /> <referenceRange& gt; <observationRange> <text>0-25</text& gt; </observationRange> </referenceRange> </observation> </component> <component> &lt ;observation moodCode="EVN" classCode="OBS"> &lt ;templateId root="2.16.840.1.308309.10.20.22.4.2" /> < id nullFlavor="NA" /> <code codeSystem="local&quot ; code="300.0097" displayName="LTURBIDITY" /> & lt;statusCode code="completed" /> <effectiveTime value= "848830297108" /> <value unit="" xsi:type="PQ& quot; value="< 20.0" /> <referenceRange> <observationRange> <text>0-20</text> </observationRange> </referenceRange> </ observation> </component> </organizer> </entry> < entry> <organizer moodCode="EVN" classCode="BATTERY&quot ;> <templateId root="2.16.840.1.769364.10.20.22.4.1" /> <id nullFlavor="NA" /> <code codeSystem=" local" code="LTSH-RT4F" displayName="L200.3855" /> <statusCode code="completed" /> <component> <observation moodCode="EVN" classCode="OBS"> <templateId root="2.16.840.1.132483.10.20.22.4.2" /> <id nullFlavor="NA" /> <code codeSystem=" local" code="300.5510" displayName="TSH w Reflex T4 Free& quot; /> <statusCode code="completed" /> & lt;effectiveTime value="100683052534" /> <value unit="MIU /L" xsi:type="PQ" value="2.24" /> < referenceRange> <observationRange> <text> 0.47-4.68</text> </observationRange> </ referenceRange> </observation> </component> </ organizer> </entry> <entry> <organizer moodCode="EVN " classCode="BATTERY"> <templateId root=" 2.16.840.1.128724.10.20.22.4.1" /> <id nullFlavor="NA&quot ; /> <code codeSystem="local" code="LACTH-A" displayName="L750.0200" /> <statusCode code="completed " /> <component> <observation moodCode="EVN& quot; classCode="OBS"> <templateId root=" 2.16.840.1.119031.10.20.22.4.2" /> <id nullFlavor="NA& quot; /> <code codeSystem="local" code="902.0325& quot; displayName="LACTH-A" /> <statusCode code=" completed" /> <effectiveTime value="975688817020" /> <value unit="pg/mL" xsi:type="PQ" value=& quot;20" /> <referenceRange> < observationRange> <text>NRG</text> </ observationRange> </referenceRange> </observation&gt ; </component> </organizer> </entry> <entry> <organizer moodCode="EVN" classCode="BATTERY"> <templateId root="2.16.840.1.362581.10.20.22.4.1" /> < id nullFlavor="NA" /> <code codeSystem="local" code="LCORTF-A" displayName="L750.2990" /> < statusCode code="completed" /> <component> < observation moodCode="EVN" classCode="OBS"> < templateId root="2.16.840.1.583886.10.20.22.4.2" /> < id nullFlavor="NA" /> <code codeSystem="local&quot ; code="902.5750" displayName="Cortisol Free, Serum - AMS" / > <statusCode code="completed" /> < effectiveTime value="222606862200" /> <value unit=&quot ;mcg/dL" xsi:type="PQ" value="0.09" /> < referenceRange> <observationRange> <text> NRG</text> </observationRange> </ referenceRange> </observation> </component> </ organizer> </entry> <entry> <organizer moodCode="EVN " classCode="BATTERY"> <templateId root=" 2.16.840.1.515647.10.20.22.4.1" /> <id nullFlavor="NA&quot ; /> <code codeSystem="local" code="LCBC" displayName="L100.0050" /> <statusCode code="completed " /> <component> <observation moodCode="EVN& quot; classCode="OBS"> <templateId root=" 2.16.840.1.504672.10.20.22.4.2" /> <id nullFlavor="NA& quot; /> <code codeSystem="local" code="100.0150& quot; displayName="WBC - WHITE BLOOD COUNT" /> < statusCode code="completed" /> <effectiveTime value=& quot;720881454663" /> <value unit="T/MM3" xsi:type ="PQ" value="13.0" /> <interpretationCode codeSystem="local" code="*" /> < referenceRange><observationRange> <text>4.5-11.0< /text> </observationRange> </referenceRange> </observation> </component> <component> <observation moodCode="EVN" classCode="OBS"> < templateId root="2.16.840.1.240169.10.20.22.4.2" /> < id nullFlavor="NA" /> <code codeSystem="local&quot ; code="100.0250" displayName="RED BLOOD COUNT" /> <statusCode code="completed" /><effectiveTime value=&quot ;181876817170" /> <value unit="M/MM3" xsi:type=& quot;PQ" value="5.28" /> <interpretationCode codeSystem="local" code="*" /> < referenceRange> <observationRange> <text> 4.00-5.20</text> </observationRange> </ referenceRange> </observation> </component> < component> <observation moodCode="EVN" classCode=" OBS"> <templateId root="2.16.840.1.735631.10.20.22.4.2& quot; /> <id nullFlavor="NA" /> <code codeSystem="local" code="100.0300" displayName="HGB - HEMOGLOBIN" /> <statusCode code="completed" /> <effectiveTime value="026004254216" /> < value unit="GM/DL" xsi:type="PQ" value="15.1" /&gt ; <referenceRange> <observationRange> < text>12-16</text> </observationRange> </ referenceRange> </observation> </component> < component> <observation moodCode="EVN" classCode=" OBS"> <templateId root="2.16.840.1.338674.10.20.22.4.2& quot; /> <id nullFlavor="NA" /> <code codeSystem="local" code="100.0400" displayName="HCT - HEMATOCRIT" /> <statusCode code="completed" /> <effectiveTime value="501671795447" /> < value unit="%" xsi:type="PQ" value="44.2" /> <referenceRange> <observationRange>< text>36-46</text> </observationRange> </ referenceRange> </observation> </component> < component> <observation moodCode="EVN" classCode=" OBS"> <templateId root="2.16.840.1.486445.10..22.4.2& quot; /> <id nullFlavor="NA" /> <code codeSystem="local" code="100.0550" displayName="MEAN CORPUSCULAR VOLUME" /> <statusCode code="completed&quot ; /> <effectiveTime value="709173295631" /> <value unit="UM3" xsi:type="PQ" value="83.7" /> <referenceRange> <observationRange> <text>80-100</text> </observationRange> </referenceRange> </observation> </component> <component> <observation moodCode="EVN" classCode=& quot;OBS"> <templateId root=" 2.16.840.1.828483.10.20.22.4.2" /> <id nullFlavor="NA& quot; /> <code codeSystem="local" code="100.0600& quot; displayName="MEAN CORPUSCULAR HGB" /> <statusCode code=& quot;completed" /> <effectiveTime value="369834332560& quot; /> <value unit="UUG" xsi:type="PQ" value="28.6"/> <referenceRange> < observationRange> <text>26-34</text> < /observationRange> </referenceRange> </observation& gt; </component> <component> <observation moodCode="EVN" classCode="OBS"> <templateId root="2.16.840.1.587427.10.20.22.4.2" /> <id nullFlavor ="NA" /> <code codeSystem="local" code=" 100.0650" displayName="MEAN CORPUSCULAR HGB CONC([facility]" /> & lt;statusCode code="completed" /> <effectiveTime value= "927276878506" /> <value unit="GM/DL" xsi: type="PQ" value="34.2" /> <referenceRange&gt ; <observationRange> <text>31-37</text&gt ; </observationRange> </referenceRange> & lt;/observation> </component> <component> < observation moodCode="EVN" classCode="OBS"> < templateId root="2.16.840.1.406377.10.20.22.4.2" /> < id nullFlavor="NA" /> <code codeSystem="local&quot ; code="100.0750" displayName="RDW STANDARD DEVIATION" /&gt ; <statusCode code="completed" /> < effectiveTime value="018925040020" /> <value unit=&quot ;FL" xsi:type="PQ" value="40.5" /> < referenceRange> <observationRange> <text> 36.9-50.2</text> </observationRange> </ referenceRange> </observation> </component> < component> <observation moodCode="EVN" classCode=" OBS"> <templateId root="2.16.840.1.441521.10.20.22.4.2& quot; /> <id nullFlavor="NA" /> <code codeSystem="local" code="100.0850" displayName="PLT - PLATELET COUNT" /> <statusCode code="completed" /& gt; <effectiveTime value="239034662978" /> &lt ;value unit="T/MM3" xsi:type="PQ" value="310" /&gt ; <referenceRange> <observationRange> & lt;text>130-400</text> </observationRange> & lt;/referenceRange> </observation> </component> <component> <observation moodCode="EVN" classCode=& quot;OBS"> <templateId root=" 2.16.840.1.343719.10.20.22.4.2" /> <id nullFlavor="NA& quot; /> <code codeSystem="local" code="100.0950& quot; displayName="MEAN PLATELET VOLUME" /> < statusCode code="completed" /> <effectiveTime value=& quot;760975879042" /> <value unit="UM3" xsi:type=& quot;PQ" value="9.5" /> <referenceRange> <observationRange> <text>9.4-12.4</text> </observationRange> </referenceRange> < /observation> </component> <component> < observation moodCode="EVN" classCode="OBS"> < templateId root="2.16.840.1.498228.10.20.22.4.2" /> < id nullFlavor="NA" /> <code codeSystem="local&quot ; code="100.1050" displayName="NEUTROPHILS % (AUTO)&quot ; /> <statusCode code="completed" /> < effectiveTime value="850323930793" /> <value unit="& amp;#37;" xsi:type="PQ" value="68.7" /> < interpretationCode codeSystem="local" code="*" /> <referenceRange> <observationRange> < text>33-66</text> </observationRange> </ referenceRange> </observation> </component> < component> <observation moodCode="EVN" classCode=" OBS"> <templateId root="2.16.840.1.775917.10.20.22.4.2& quot; /><id nullFlavor="NA" /> <code codeSystem=& quot;local" code="100.1100" displayName="LYMPHOCYTES &# 37; (AUTO)" /> <statusCode code="completed" /> <effectiveTime value="008910653125" /> < value unit="%" xsi:type="PQ" value="19.3" /> <interpretationCode codeSystem="local" code="*& quot; /> <referenceRange> <observationRange> <text>23-45</text> </observationRange&gt ; </referenceRange> </observation> </ component> <component> <observation moodCode="EVN& quot; classCode="OBS"> <templateId root=" 2.16.840.1.212364.10.20.22.4.2" /> <id nullFlavor="NA& quot; /> <code codeSystem="local" code="100.1150& quot; displayName="MONOCYTES % (AUTO)" /> < statusCode code="completed" /> <effectiveTime value=& quot;782435739416" /> <value unit="%" xsi: type="PQ" value="5.8" /> <referenceRange> <observationRange> <text>0-9.0</text&gt ; </observationRange> </referenceRange> & lt;/observation> </component> <component> < observation moodCode="EVN" classCode="OBS"> < templateId root="2.16.840.1.588944.10.20.22.4.2" /> < id nullFlavor="NA" /> <code codeSystem="local&quot ; code="100.1200" displayName="EOSINOPHILS % (AUTO)&quot ; /> <statusCode code="completed" /> < effectiveTime value="146977789797" /> <valueunit=" %" xsi:type="PQ" value="5.6" /> &lt ;interpretationCode codeSystem="local" code="*" /> <referenceRange> <observationRange> <text& gt;0-4</text> </observationRange> </ referenceRange> </observation> </component> < component> <observation moodCode="EVN" classCode=" OBS"> <templateId root="2.16.840.1.037680.10.20.22.4.2" /& gt; <id nullFlavor="NA" /> <code codeSystem ="local" code="100.1250" displayName="BASOPHILS &# 37; (AUTO)" /> <statusCode code="completed" /> <effectiveTime value="060949100042" /> < value unit="%" xsi:type="PQ" value="0.3" / > <referenceRange> <observationRange> <text>0-2</text> </observationRange> </ referenceRange> </observation> </component> < component> <observation moodCode="EVN" classCode=" OBS"> <templateId root="2.16.840.1.992955.10.20.22.4.2" /& gt; <id nullFlavor="NA" /> <code codeSystem ="local" code="100.1275" displayName="IMMATURE GRANULOCYTE % (AUTO)" /> <statusCode code=" completed" /> <effectiveTime value="107303296495" /> <value unit="%" xsi:type="PQ" value="0.3" /> <referenceRange> < observationRange> <text>0.0-0.5</text> & lt;/observationRange> </referenceRange> </ observation> </component> <component> < observation moodCode="EVN" classCode="OBS"> < templateId root="2.16.840.1.320881.10.20.22.4.2" /> < id nullFlavor="NA" /> <code codeSystem="local&quot ; code="100.1300" displayName="NEUTROPHILS # (AUTO)" /> <statusCode code="completed" /> < effectiveTime value="616324051507" /> <value unit=&quot ;T/MM3" xsi:type="PQ" value="9.0" /> < interpretationCodecodeSystem="local" code="*" /> <referenceRange> <observationRange> < text>1.8-7.7</text> </observationRange> </ referenceRange> </observation> </component> < component> <observation moodCode="EVN" classCode=" OBS"> <templateId root="2.16.840.1.078890.10.20.22.4.2& quot; /> <id nullFlavor="NA" /> <code codeSystem="local" code="100.1350" displayName=" LYMPHOCYTES # (AUTO)" /> <statusCode code="completed& quot; /><effectiveTime value="299078415498" /> < value unit="T/MM3" xsi:type="PQ" value="2.5" /&gt ; <referenceRange> <observationRange> <text>1-4.8</text> </observationRange> </ referenceRange> </observation> </component> < component> <observation moodCode="EVN" classCode=" OBS"> <templateId root="2.16.840.1.066807.10.20.22.4.2& quot; /> <id nullFlavor="NA" /> <code codeSystem="local" code="100.1400" displayName=" MONOCYTES # (AUTO)" /> <statusCode code="completed&quot ; /> <effectiveTime value="825027877178" /> <value unit="T/MM3" xsi:type="PQ" value="0.8&quot ; /> <referenceRange> <observationRange> <text>0-0.8</text> </observationRange> </referenceRange> </observation> </component& gt; <component> <observation moodCode="EVN" classCode="OBS"> <templateId root=" 2.16.840.1.992714.10.20.22.4.2" /> <id nullFlavor="NA& quot; /> <code codeSystem="local" code="100.1450" displayName="EOSINOPHILS # (AUTO)" /> <statusCode code= "completed" /> <effectiveTimevalue="270069603876& quot; /> <value unit="T/MM3" xsi:type="PQ" value="0.7" /> <interpretationCode codeSystem=" local" code="*" /> <referenceRange> <observationRange> <text>0-0.5</text> </observationRange> </referenceRange> </observation&gt ; </component> <component> <observation moodCode ="EVN" classCode="OBS"> <templateId root=& quot;2.16.840.1.080018.10.20.22.4.2" /> <id nullFlavor=&quot ;NA" /> <code codeSystem="local" code=" 100.1500" displayName="BASOPHILS # (AUTO)" /> <statusCode code="completed" /> <effectiveTime value=" 266577173054" /> <value unit="T/MM3" xsi:type=& quot;PQ" value="0.0" /> <referenceRange> <observationRange> <text>0-0.2</text> </observationRange> </referenceRange> </ observation> </component> <component> < observation moodCode="EVN" classCode="OBS"> < templateId root="2.16.840.1.357065.10.20.22.4.2" /> < id nullFlavor="NA" /> <code codeSystem="local&quot ; code="100.1525" displayName="IMMATURE GRANULOCYTE # (AUTO)&quot ; /> <statusCode code="completed" /> < effectiveTime value="611113458573" /> <value unit=&quot ;T/MM3" xsi:type="PQ" value="0.04" /> < interpretationCode codeSystem="local" code="*" /> < referenceRange> <observationRange> <text> 0.00-0.03</text> </observationRange> </ referenceRange> </observation> </component> </ organizer> </entry> <entry> <organizer moodCode="EVN " classCode="BATTERY"> <templateId root=" 2.16.840.1.367328.10.20.22.4.1" /> <id nullFlavor="NA&quot ; /> <code codeSystem="local" code="LCMP" displayName="L200.0020" /> <statusCode code="completed " /> <component> <observation moodCode="EVN& quot; classCode="OBS"> <templateId root=" 2.16.840.1.805561.10.20.22.4.2"/> <id nullFlavor="NA& quot; /> <code codeSystem="local"code="300.0400& quot; displayName="FUNGAL CULTURE." /> <statusCode code ="completed" /> <effectiveTime value="382309843810 " /><value unit="MG/DL" xsi:type="PQ" value=&quot ;1.0" /> <referenceRange> <observationRange > <text>0.7-1.2</text> </observationRange& gt; </referenceRange> </observation> </ component> <component> <observation moodCode="EVN& quot; classCode="OBS"> <templateId root=" 2.16.840.1.762057.10.20.22.4.2" /> <id nullFlavor="NA" / > <code codeSystem="local" code="300.0450" displayName="FUNGAL CULTURE, BLOOD." /> <statusCode code="completed" /> <effectiveTime value=" 604935820251" /> <value unit="RATIO" xsi:type=& quot;PQ" value="15" /> <referenceRange> <observationRange> <text>6-26</text></ observationRange> </referenceRange> </observation&gt ; </component> <component> <observation moodCode ="EVN" classCode="OBS"> <templateId root=& quot;2.16.840.1.079316.10.20.22.4.2" /> <id nullFlavor=&quot ;NA" /> <code codeSystem="local" code=" 300.0100" displayName="NA - Sodium" /> < statusCode code="completed" /> <effectiveTime value=& quot;235659768393" /> <value unit="MEQ/L" xsi:type ="PQ" value="143" /> <referenceRange> & lt;observationRange> <text>134-144</text> </observationRange> </referenceRange> </ observation> </component><component> <observation moodCode="EVN" classCode="OBS"> <templateId root=& quot;2.16.840.1.375788.10.20.22.4.2" /> <id nullFlavor=&quot ;NA" /> <code codeSystem="local" code=" 300.0150" displayName="Potassium" /> <statusCode code="completed" /> <effectiveTime value=" 390212342324" /> <value unit="MEQ/L" xsi:type=& quot;PQ" value="4.4" /> <referenceRange> <observationRange> <text>3.6-5</text> </observationRange> </referenceRange> </observation > </component> <component> <observation moodCode="EVN" classCode="OBS"> < templateIdroot="2.16.840.1.334113.10.20.22.4.2" /> <id nullFlavor="NA" /> <code codeSystem="local" code="300.0200" displayName="Chloride" /> < statusCode code="completed" /> <effectiveTime value=& quot;902341349574" /> <value unit="MEQ/L" xsi:type ="PQ" value="105" /> <referenceRange> <observationRange> <text>98-107</text> </observationRange> </referenceRange> </ observation> </component> <component> < observation moodCode="EVN" classCode="OBS"> < templateId root="2.16.840.1.766812.10.20.22.4.2" /> < id nullFlavor="NA" /> <codecodeSystem="local&quot ; code="300.0250" displayName="CO2 - Carbon Dioxide" /> <statusCode code="completed" /> < effectiveTime value="574316839876" /> <value unit=&quot ;MEQ/L" xsi:type="PQ" value="26" /> < referenceRange> <observationRange> <text> 22-30</text> </observationRange> </ referenceRange> </observation> </component> < component> <observation moodCode="EVN" classCode=" OBS"> <templateId root="2.16.840.1.046715.10.20.22.4.2& quot; /> <id nullFlavor="NA" /> <code codeSystem="local" code="300.0300" displayName="Anion Gap" /> <statusCode code="completed" /> <effectiveTime value="637520911166" /> <value unit="MEQ/L" xsi:type="PQ" value="12" /> & lt;referenceRange> <observationRange> <text& gt;5-15</text> </observationRange> </ referenceRange> </observation> </component> < component> <observation moodCode="EVN" classCode=" OBS"> <templateId root="2.16.840.1.786122.10.20.22.4.2& quot; /> <id nullFlavor="NA" /> <code codeSystem="local" code="300.0350" displayName="BUN - Blood Urea Nitrogen" /> <statusCode code="completed& quot; /> <effectiveTime value="213716008880" /> <value unit="MG/DL" xsi:type="PQ" value="15.0& quot; /> <referenceRange> <observationRange> <text>7-17</text> </observationRange> </referenceRange> </observation> </component> <component> <observation moodCode="EVN" classCode="OBS"> <templateId root=" 2.16.840.1.467807.10.20.22.4.2" /> <id nullFlavor="NA& quot; /> <code codeSystem="local" code="300.0410& quot; displayName="Glomerular Filtration Rate" /> < statusCode code="completed" /> <effectiveTime value=& quot;054625531940" /> <value unit="" xsi:type=" PQ" value="65" /> <referenceRange> & lt;observationRange> <text>NRG</text> </ observationRange> </referenceRange> </observation&gt ; </component> <component> <observation moodCode ="EVN" classCode="OBS"> <templateId root=& quot;2.16.840.1.881798.10.20.22.4.2" /> <id nullFlavor="NA&quot ; /> <code codeSystem="local" code="300.0500&quot ; displayName="Glucose" /> <statusCode code=" completed"/> <effectiveTime value="719068506728" / > <value unit="MG/DL" xsi:type="PQ" value=& quot;93" /> <referenceRange> <observationRange> <text>65-110</text> </observationRange& gt; </referenceRange> </observation> </ component> <component> <observation moodCode="EVN& quot; classCode="OBS"> <templateId root=" 2.16.840.1.358798.10.20.22.4.2" /> <id nullFlavor="NA& quot; /> <code codeSystem="local" code="300.2000& quot; displayName="Osmolality,Calculated" /> < statusCode code="completed" /> <effectiveTime value=&quot ;933460614339" /> <value unit="MOSM/KG" xsi:type=& quot;PQ" value="276" /> <referenceRange>< observationRange> <text>261-280</text> & lt;/observationRange> </referenceRange> </ observation> </component> <component> < observation moodCode="EVN" classCode="OBS">< templateId root="2.16.840.1.995991.10.20.22.4.2" /> < id nullFlavor="NA" /> <code codeSystem="local&quot ; code="300.2200" displayName="Calcium" /> < statusCode code="completed" /> <effectiveTime value=& quot;920870266868" /> <value unit="MG/DL" xsi:type ="PQ" value="9.9" /> <referenceRange> <observationRange> <text>8.4-10.2</text> </observationRange> </referenceRange> & lt;/observation> </component> <component> < observation moodCode="EVN" classCode="OBS"> < templateId root="2.16.840.1.882753.10.20.22.4.2" /> < id nullFlavor="NA" /> <code codeSystem="local" code="300.2700" displayName="Bilirubin,Total" /> <statusCode code="completed" /> <effectiveTime value="404143216963" /> <value unit="MG/DL" xsi:type="PQ" value="0.50" /> <referenceRange > <observationRange> <text>0.20-1.30</text > </observationRange> </referenceRange> </observation> </component> <component> & lt;observation moodCode="EVN" classCode="OBS"> & lt;templateId root="2.16.840.1.339372.10.20.22.4.2" /> &lt ;id nullFlavor="NA" /> <code codeSystem="local& quot; code="300.2975" displayName="Alkaline Phosphatase" /& gt; <statusCode code="completed" /> < effectiveTime value="659381430069" /> <value unit=&quot ;U/L" xsi:type="PQ" value="92" /> < referenceRange> <observationRange> <text>38-126</ text> </observationRange> </referenceRange> </observation> </component> <component> <observation moodCode="EVN" classCode="OBS"> <templateId root="[id number]" /> <id nullFlavor="NA" /> <code codeSystem=" local" code="300.3050" displayName="AST - Aspartate Amino Transfer" /> <statusCode code="completed" /> <effectiveTime value="[id number]" /> < value unit="U/L" xsi:type="PQ" value="19" /> <referenceRange> <observationRange> <text&gt ;14-36</text> </observationRange> </ referenceRange> </observation> </component> < component> <observationmoodCode="EVN" classCode="OBS "> <templateId root="[id number]& quot; /> <id nullFlavor="NA" /> <code codeSystem="local" code="300.3100" displayName="ALT& quot; /> <statusCode code="completed" /> & lt;effectiveTime value="425628582583" /> <value unit=& quot;U/L" xsi:type="PQ" value="39" /> < referenceRange> <observationRange> <text> 9-52</text> </observationRange> </ referenceRange> </observation> </component> < component> <observation moodCode="EVN" classCode=" OBS"> <templateId root="2.16.840.1.230933.10..22.4.2& quot; /> <id nullFlavor="NA" /> <code codeSystem="local" code="300.3110" displayName="TP - Total Protein" /> <statusCode code="completed" /& gt; <effectiveTime value="619068938834" /><value unit="G/DL" xsi:type="PQ" value="7.4" /> <referenceRange> <observationRange> < text>6.3-8.2</text> </observationRange> </ referenceRange> </observation> </component> < component> <observation moodCode="EVN" classCode=" OBS"> <templateId root="2.16.840.1.095790.10.20.22.4.2& quot; /> <id nullFlavor="NA" /> <code codeSystem="local" code="300.3120" displayName=" Albumin Level" /> <statusCode code="completed" /& gt; <effectiveTime value="777326604448" /> &lt ;value unit="G/DL" xsi:type="PQ" value="4.6" /&gt ; <referenceRange> <observationRange> <text>3.5-5.0</text> </observationRange> </referenceRange> </observation> </component> <component> <observation moodCode="EVN" classCode="OBS"> <templateId root=" 2.16.840.1.596084.10.20.22.4.2" /> <id nullFlavor="NA& quot; /> <code codeSystem="local" code="300.3130& quot;displayName="Globulin" /> <statusCode code=" completed" /> <effectiveTime value="022318236281" /> <value unit="G/DL" xsi:type="PQ" value=" 2.8" /> <referenceRange> <observationRange& gt; <text>2.4-3.6</text> </ observationRange> </referenceRange> </observation&gt ; </component> <component> <observation moodCode ="EVN" classCode="OBS"> <templateId root=& quot;2.16.840.1.448522.10.20.22.4.2" /> <id nullFlavor=&quot ;NA" /> <code codeSystem="local" code=" 300.3140" displayName="Albumin/Globulin Ratio" /> &lt ;statusCode code="completed" /> <effectiveTime value=& quot;204973362872" /> <value unit="RATIO" xsi:type ="PQ" value="1.6" /> <referenceRange> <observationRange> <text>1.1-2.2</text> </observationRange> </referenceRange> </ observation> </component> <component> < observation moodCode="EVN" classCode="OBS"> < templateId root="2.16.840.1.427748.10.20.22.4.2" /> < id nullFlavor="NA" /> <code codeSystem="local&quot ; code="300.0095" displayName="LICTERUS" /> < statusCode code="completed" /> <effectiveTime value=& quot;858965603148" /> <value unit="" xsi:type=& quot;PQ" value="< 2.0" /> <referenceRange& gt; <observationRange> <text>0-7</text&gt ; </observationRange> </referenceRange> & lt;/observation> </component> <component> < observation moodCode="EVN" classCode="OBS"> < templateId root="2.16.840.1.780696.10.20.22.4.2" /> < id nullFlavor="NA" /> <code codeSystem="local&quot ; code="300.0096" displayName="LHEMOLYSIS" /> &lt ;statusCode code="completed" /> <effectiveTime value=& quot;519646698219" /> <value unit="" xsi:type=& quot;PQ" value="< 15.0" /> <referenceRange& gt; <observationRange> <text>0-25</text& gt; </observationRange> </referenceRange> &lt ;/observation> </component> <component> < observation moodCode="EVN" classCode="OBS"> < templateId root="2.16.840.1.790906.10.20.22.4.2" /> < id nullFlavor="NA" /> <code codeSystem="local&quot ; code="300.0097" displayName="LTURBIDITY" /> & lt;statusCode code="completed" /> <effectiveTime value= "170670784545"/> <value unit="" xsi:type=& quot;PQ" value="< 20.0" /> <referenceRange& gt; <observationRange> <text>0-20</text& gt; </observationRange> </referenceRange> </observation> </component> </organizer> </entry > <entry> <organizer moodCode="EVN" classCode=" BATTERY"> <templateId root="2.16.840.1.862459.10.20.22.4.1& quot; /> <id nullFlavor="NA" /> <code codeSystem ="local" code="LMAG" displayName="L200.2000" /&gt ; <statusCode code="completed" /> <component> <observation moodCode="EVN" classCode="OBS"> <templateId root="2.16.840.1.003397.10.20.22.4.2" /> <id nullFlavor="NA" /> <code codeSystem=" local" code="300.2350" displayName="MAG - Magnesium" /& gt; <statusCode code="completed" /> < effectiveTime value="403401068796" /> <value unit="MG /DL" xsi:type="PQ" value="2.1" /><referenceRange& gt; <observationRange> <text>1.6-2.3</ text> </observationRange> </referenceRange> </observation> </component> </organizer> </ entry> <entry> <organizer moodCode="EVN" classCode=& quot;BATTERY"> <templateId root=" 2.16.840.1.707361.10.20.22.4.1" /> <id nullFlavor="NA&quot ; /> <code codeSystem="local" code="LLDH" displayName="L200.1855" /> <statusCode code="completed " /> <component> <observation moodCode="EVN& quot; classCode="OBS"> <templateId root=" 2.16.840.1.784655.10.20.22.4.2" /> <id nullFlavor="NA& quot; /> <code codeSystem="local" code="300.3250& quot; displayName="LDH - Lactate Dehydrogenase" /> < statusCode code="completed" /> <effectiveTime value=& quot;841714669903" /> <value unit="U/L" xsi:type=& quot;PQ" value="349" /><referenceRange> < observationRange> <text>313-138</text> & lt;/observationRange> </referenceRange> </ observation> </component> </organizer> </entry> & lt;entry> <organizer moodCode="EVN" classCode="BATTERY& quot;> <templateId root="2.16.840.1.304051.10.20.22.4.1" /& gt; <id nullFlavor="NA" /> <code codeSystem=" local" code="LCBC" displayName="L100.0050" /> & lt;statusCode code="completed" /> <component> &lt ;observation moodCode="EVN" classCode="OBS"> &lt ;templateId root="2.16.840.1.314419.10.20.22.4.2" /> < id nullFlavor="NA" /> <code codeSystem="local&quot ; code="100.0150" displayName="WBC - WHITE BLOOD COUNT" /&gt ; <statusCodecode="completed" /> < effectiveTime value="380501585518" /> <value unit="T/ MM3" xsi:type="PQ" value="13.4" /> < interpretationCode codeSystem="local" code="*" /> <referenceRange> <observationRange> < text>4.5-11.0</text></observationRange> </ referenceRange> </observation> </component> < component> <observation moodCode="EVN" classCode=" OBS"> <templateId root="2.16.840.1.410045.10.20.22.4.2& quot; /> <id nullFlavor="NA" /> <code codeSystem="local" code="100.0250" displayName="RED BLOOD COUNT" /> <statusCode code="completed" /&gt ; <effectiveTime value="838308420532" /> < value unit="M/MM3" xsi:type="PQ" value="4.90" /&gt ; <referenceRange> <observationRange> <text>4.00-5.20</text> </observationRange> </referenceRange> </observation> </component> <component> <observation moodCode="EVN" classCode= "OBS"> <templateId root=" 2.16.840.1.458291.10.20.22.4.2" /> <id nullFlavor="NA& quot; /> <code codeSystem="local" code="100.0300& quot; displayName="HGB - HEMOGLOBIN" /> <statusCode code="completed" /> <effectiveTime value=" 039183754880" /> <value unit="GM/DL" xsi:type=& quot;PQ" value="14.0" /> <referenceRange> < observationRange> <text>12-16</text> < /observationRange> </referenceRange> </observation& gt; </component> <component> <observation moodCode="EVN" classCode="OBS"><templateId root=" 2.16.840.1.955377.10.20.22.4.2" /> <id nullFlavor="NA& quot; /> <code codeSystem="local" code="100.0400& quot; displayName="HCT - HEMATOCRIT" /> <statusCode code="completed" /><effectiveTime value="236857786159&quot ; /> <value unit="%"xsi:type="PQ" value="41.6" /> <referenceRange> < observationRange> <text>36-46</text> < /observationRange> </referenceRange> </observation&gt ; </component> <component> <observation moodCode ="EVN" classCode="OBS"> <templateId root=& quot;2.16.840.1.406862.10..22.4.2" /> <id nullFlavor=&quot ;NA" /> <code codeSystem="local" code=" 100.0550" displayName="MEAN CORPUSCULAR VOLUME" /> & lt;statusCode code="completed" /><effectiveTime value=" 764160648429" /> <value unit="UM3" xsi:type=" PQ" value="84.9" /> <referenceRange> <observationRange> <text>80-100</text> </observationRange> </referenceRange> </observation > </component> <component> <observation moodCode="EVN" classCode="OBS"> <templateId root="2.16.840.1.991722.10.20.22.4.2" /> <id nullFlavor ="NA" /> <code codeSystem="local" code=" 100.0600" displayName="MEAN CORPUSCULAR HGB" /> < statusCode code="completed" /> <effectiveTime value=& quot;354426299065" /> <value unit="UUG" xsi:type=& quot;PQ" value="28.6" /> <referenceRange> <observationRange> <text>26-34</text> </observationRange> </referenceRange> </ observation> </component> <component><observation moodCode="EVN" classCode="OBS"> <templateId root="2.16.840.1.452158.10.20.22.4.2" /> <id nullFlavor ="NA" /> <code codeSystem="local" code=" 100.0650" displayName="MEAN CORPUSCULAR HGB CONC(MCHC" /> <statusCode code="completed" /> < effectiveTime value="955936736566" /> <value unit=&quot ;GM/DL" xsi:type="PQ" value="33.7" /> < referenceRange> <observationRange> <text> 31-37</text> </observationRange> </ referenceRange> </observation> </component> < component> <observation moodCode="EVN" classCode="OBS& quot;> <templateId root="2.16.840.1.072176.10.20.22.4.2&quot ; /> <id nullFlavor="NA" /> <code codeSystem="local" code="100.0750" displayName="RDW STANDARD DEVIATION" /> <statusCode code="completed&quot ; /> <effectiveTime value="339694543829" /> <value unit="FL" xsi:type="PQ" value="40.9" / > <referenceRange> <observationRange> <text>36.9-50.2</text> </observationRange> </referenceRange> </observation> </component > <component> <observation moodCode="EVN" classCode="OBS"> <templateId root=" 2.16.840.1.426890.10.20.22.4.2" /> <id nullFlavor="NA& quot; /> <code codeSystem="local" code="100.0850" displayName="PLT - PLATELET COUNT" /> <statusCode code= "completed" /> <effectiveTimevalue="065931796495& quot; /> <value unit="T/MM3" xsi:type="PQ" value="301" /> <referenceRange> < observationRange> <text>130-400</text> </ observationRange> </referenceRange> </observation&gt ; </component> <component> <observation moodCode ="EVN" classCode="OBS"> <templateId root=& quot;2.16.840.1.996927.10.20.22.4.2" /> <id nullFlavor=&quot ;NA" /> <code codeSystem="local" code=" 100.0950" displayName="MEAN PLATELET VOLUME" /> < statusCode code="completed" /> <effectiveTime value=& quot;166829581503" /> <value unit="UM3" xsi:type=& quot;PQ" value="9.2" /> <interpretationCode codeSystem="local" code="*" /> < referenceRange> <observationRange> <text> 9.4-12.4</text> </observationRange> </ referenceRange> </observation> </component> < component> <observation moodCode="EVN" classCode=" OBS"> <templateId root="2.16.840.1.323683.10.20.22.4.2& quot; /> <id nullFlavor="NA" /> <code codeSystem="local" code="100.1050" displayName=" NEUTROPHILS % (AUTO)" /> <statusCode code=" completed" /> <effectiveTime value="449155266070" /> <value unit="%" xsi:type="PQ" value="68.1" /> <interpretationCode codeSystem=" local" code="*" /> <referenceRange> & lt;observationRange> <text>33-66</text> & lt;/observationRange> </referenceRange> </ observation> </component> <component> < observation moodCode="EVN" classCode="OBS"> < templateId root="2.16.840.1.791302.10.20.22.4.2" /> < id nullFlavor="NA" /> <code codeSystem="local&quot ; code="100.1100" displayName="LYMPHOCYTES % (AUTO)&quot ; /> <statusCode code="completed" /> < effectiveTime value="492078901827" /> <value unit=&quot ;%" xsi:type="PQ" value="18.8" /> & lt;interpretationCode codeSystem="local" code="*" /> <referenceRange> <observationRange> & lt;text>23-45</text> </observationRange> < /referenceRange> </observation> </component> < component> <observation moodCode="EVN" classCode=" OBS"> <templateId root="2.16.840.1.425697.10.20.22.4.2& quot; /> <id nullFlavor="NA" /> <code codeSystem="local" code="100.1150" displayName=" MONOCYTES % (AUTO)" /> <statusCode code=" completed" /> <effectiveTime value="138682577915" /> <value unit="%" xsi:type="PQ" value=& quot;5.9" /> <referenceRange> <observationRange> <text>0-9.0</text> </observationRange&gt ; </referenceRange> </observation> </ component> <component> <observation moodCode="EVN& quot; classCode="OBS"> <templateId root=" 2.16.840.1.022898.10..22.4.2" /> <id nullFlavor="NA& quot; /> <code codeSystem="local" code="100.1200& quot; displayName="EOSINOPHILS % (AUTO)" /> < statusCode code="completed" /> <effectiveTime value=& quot;639084842041" /> <value unit="%" xsi: type="PQ" value="6.6" /> <interpretationCode codeSystem="local" code="*" /> < referenceRange> <observationRange> <text> 0-4</text> </observationRange> </referenceRange> </observation> </component> <component> & lt;observation moodCode="EVN" classCode="OBS"> & lt;templateId root="2.16.840.1.440251.10.20.22.4.2" /> &lt ;id nullFlavor="NA" /> <code codeSystem="local& quot; code="100.1250" displayName="BASOPHILS % (AUTO)& quot; /> <statusCode code="completed" /> & lt;effectiveTime value="285994379920" /> <value unit=& quot;%" xsi:type="PQ" value="0.2" /> <referenceRange> <observationRange> < text>0-2</text> </observationRange> </referenceRange& gt; </observation> </component> <component> <observation moodCode="EVN" classCode="OBS"> <templateId root="2.16.840.1.906009.10.20.22.4.2" /> <id nullFlavor="NA" /> <code codeSystem=&quot ;local" code="100.1275" displayName="IMMATURE GRANULOCYTE & amp;#37; (AUTO)" /> <statusCode code="completed" / > <effectiveTime value="972416872410" /> < value unit="%" xsi:type="PQ" value="0.4" / > <referenceRange> <observationRange> &lt ;text>0.0-0.5</text> </observationRange> < /referenceRange> </observation> </component> &lt ;component> <observation moodCode="EVN" classCode=" OBS"> <templateId root="2.16.840.1.120629.10.20.22.4.2& quot; /> <id nullFlavor="NA" /> <code codeSystem="local" code="100.1300" displayName=" NEUTROPHILS # (AUTO)" /> <statusCode code="completed& quot; /> <effectiveTime value="699718127341" /> &lt ;value unit="T/MM3" xsi:type="PQ" value="9.1" /&gt ; <interpretationCode codeSystem="local" code="*&quot ; /> <referenceRange> <observationRange> <text>1.8-7.7</text> </observationRange> </referenceRange> </observation> </ component> <component> <observation moodCode="EVN& quot; classCode="OBS"> <templateId root=" 2.16.840.1.021068.10.20.22.4.2" /> <id nullFlavor="NA& quot; /> <code codeSystem="local" code="100.1350& quot; displayName="LYMPHOCYTES # (AUTO)" /> < statusCode code="completed" /> <effectiveTime value=& quot;546671274689" /> <value unit="T/MM3" xsi:type ="PQ" value="2.5" /> <referenceRange> <observationRange> <text>1-4.8</text> </observationRange> </referenceRange> </ observation> </component> <component> < observation moodCode="EVN" classCode="OBS"> < templateId root="2.16.840.1.603670.10.20.22.4.2" /> < id nullFlavor="NA" /> <code codeSystem="local&quot ; code="100.1400" displayName="MONOCYTES # (AUTO)" /> <statusCode code="completed" /> <effectiveTime value="708280662725" /> <value unit="T/MM3" xsi:type="PQ" value="0.8" /> <referenceRange& gt; <observationRange> <text>0-0.8</text& gt; </observationRange> </referenceRange> </observation> </component> <component> &lt ;observation moodCode="EVN" classCode="OBS"> &lt ;templateId root="2.16.840.1.541966.10.20.22.4.2" /> < id nullFlavor="NA" /> <code codeSystem="local&quot ; code="100.1450" displayName="EOSINOPHILS # (AUTO)" /> <statusCode code="completed" /><effectiveTime value= "528039859927" /> <value unit="T/MM3" xsi: type="PQ" value="0.9" /> <interpretationCode codeSystem="local" code="*" /> < referenceRange> <observationRange> <text>0 -0.5</text> </observationRange> </ referenceRange> </observation> </component> < component> <observation moodCode="EVN" classCode=" OBS"> <templateId root="2.16.840.1.823762.10.20.22.4.2& quot; /> <id nullFlavor="NA" /> <code codeSystem="local" code="100.1500" displayName=" BASOPHILS # (AUTO)" /> <statusCode code="completed&quot ; /> <effectiveTime value="" /> <value unit="T/MM3" xsi:type="PQ" value="0.0&quot ; /> <referenceRange> <observationRange> & lt;text>0-0.2</text> </observationRange> < /referenceRange> </observation> </component> &lt ;component> <observationmoodCode="EVN" classCode=" OBS"> <templateId root="2.16.840.1.416413.10.20.22.4.2& quot; /> <id nullFlavor="NA" /> <code codeSystem="local" code="100.1525" displayName=" IMMATURE GRANULOCYTE # (AUTO)" /> <statusCode code=" completed" /> <effectiveTime value="960645178930" /> <value unit="T/MM3" xsi:type="PQ" value=& quot;0.06" /> <interpretationCode codeSystem="local& quot; code="*" /> <referenceRange> < observationRange> <text>0.00-0.03</text> </observationRange> </referenceRange> </observation> </component> </organizer> </entry> <entry> & lt;organizer moodCode="EVN" classCode="BATTERY"> &lt ;templateId root="2.16.840.1.936987.10.20.22.4.1" /> <id nullFlavor="NA" /> <code codeSystem="local" code= "LCMP" displayName="L200.0020" /> <statusCode code="completed" /> <component> <observation moodCode="EVN" classCode="OBS"> <templateId root="2.16.840.1.758870.10.20.22.4.2" /> <id nullFlavor ="NA" /> <code codeSystem="local" code=" 300.0400" displayName="FUNGAL CULTURE." /> < statusCode code="completed" /> <effectiveTime value=& quot;709042078513" /> <value unit="MG/DL" xsi:type ="PQ" value="1.0" /> <referenceRange> <observationRange> <text>0.7-1.2</text> </observationRange> </referenceRange> &lt ;/observation> </component> <component> < observation moodCode="EVN" classCode="OBS"> < templateId root="2.16.840.1.244374.10.20.22.4.2" /> < id nullFlavor="NA" /> <code codeSystem="local&quot ; code="300.0450" displayName="FUNGAL CULTURE, BLOOD." /&gt ; <statusCode code="completed" /> < effectiveTime value="745779260895" /> <value unit=&quot ;RATIO" xsi:type="PQ" value="14" /> < referenceRange> <observationRange> <text> 6-26</text> </observationRange> </ referenceRange> </observation> </component> < component> <observation moodCode="EVN" classCode=" OBS"> <templateId root="2.16.840.1.928664.10.20.22.4.2& quot; /> <id nullFlavor="NA" /> <code codeSystem="local" code="300.0100" displayName="NA - Sodium" /> <statusCode code="completed" /> <effectiveTime value="386937998579" /> <value unit="MEQ/L" xsi:type="PQ" value="144" /> <referenceRange> <observationRange> &lt ;text>134-144</text> </observationRange> </ referenceRange> </observation> </component> < component> <observation moodCode="EVN" classCode=" OBS"> <templateId root="2.16.840.1.290339.10.20.22.4.2& quot; /> <id nullFlavor="NA" /> <code codeSystem="local" code="300.0150" displayName=" Potassium" /> <statusCode code="completed"/> <effectiveTime value="239568872562" /> < value unit="MEQ/L" xsi:type="PQ" value="4.0" /&gt ; <referenceRange> <observationRange> < text>3.6-5</text> </observationRange> </ referenceRange> </observation> </component> < component> <observation moodCode="EVN" classCode=" OBS"> <templateId root="2.16.840.1.002882.10.20.22.4.2" / > <id nullFlavor="NA" /> <code codeSystem="local" code="300.0200" displayName=" Chloride" /> <statusCode code="completed" /> <effectiveTime value="471574387662" /> < value unit="MEQ/L" xsi:type="PQ" value="105" /&gt ; <referenceRange> <observationRange> <text>98-107</text> </observationRange></ referenceRange> </observation> </component> < component> <observation moodCode="EVN" classCode="OBS& quot;> <templateId root="2.16.840.1.222209.10.20.22.4.2&quot ; /> <id nullFlavor="NA" /> <code codeSystem="local" code="300.0250" displayName="CO2 - Carbon Dioxide" /> <statusCode code="completed" /& gt; <effectiveTime value="095784322489" /> &lt ;value unit="MEQ/L" xsi:type="PQ" value="25" /&gt ; <referenceRange> <observationRange> <text>22-30</text> </observationRange> </referenceRange> </observation> </component> <component> <observation moodCode="EVN" classCode= "OBS"> <templateId root=" 2.16.840.1.554058.10.20.22.4.2" /> <id nullFlavor="NA& quot; /><code codeSystem="local" code="300.0300" displayName="Anion Gap" /> <statusCode code=" completed" /> <effectiveTime value="493756018265" /> <value unit="MEQ/L" xsi:type="PQ" value=& quot;14" /> <referenceRange> < observationRange> <text>5-15</text> </ observationRange> </referenceRange> </observation> </component> <component> <observation moodCode=" EVN" classCode="OBS"> <templateId root=" 2.16.840.1.177267.10.20.22.4.2" /> <id nullFlavor="NA& quot; /> <code codeSystem="local" code="300.0350& quot; displayName="BUN - Blood Urea Nitrogen" /> < statusCode code="completed" /> <effectiveTime value=& quot;871663442451" /> <value unit="MG/DL" xsi:type ="PQ" value="14.0" /> <referenceRange> <observationRange> <text>7-17</text> </observationRange> </referenceRange> </ observation> </component> <component> < observation moodCode="EVN" classCode="OBS"> < templateId root="2.16.840.1.687785.10.20.22.4.2" /> < id nullFlavor="NA" /> <code codeSystem="local&quot ; code="300.0410" displayName="Glomerular Filtration Rate" / > <statusCode code="completed" /> < effectiveTime value="174525681686" /> <value unit=&quot ;" xsi:type="PQ" value="65" /> < referenceRange> <observationRange> <text> NRG</text> </observationRange> </ referenceRange> </observation> </component> < component> <observation moodCode="EVN" classCode=" OBS"> <templateId root="2.16.840.1.707051.10.20.22.4.2& quot; /> <id nullFlavor="NA" /> <code codeSystem="local" code="300.0500" displayName="Glucose " /> <statusCode code="completed" /> & lt;effectiveTime value="268908122396" /> <value unit=& quot;MG/DL" xsi:type="PQ" value="120" /> & lt;interpretationCode codeSystem="local" code="*" /> <referenceRange> <observationRange> < text>65-110</text> </observationRange> </ referenceRange> </observation> </component> < component> <observation moodCode="EVN" classCode=" OBS"> <templateId root="2.16.840.1.218232.10..22.4.2& quot; /> <id nullFlavor="NA" /> <code codeSystem="local" code="300.2000" displayName=" Osmolality,Calculated" /> <statusCode code="completed& quot; /> <effectiveTime value="337981747054" /> <value unit="MOSM/KG" xsi:type="PQ" value="279 " /> <referenceRange> <observationRange> <text>261-280</text> </observationRange> </referenceRange> </observation> </component& gt;<component> <observation moodCode="EVN" classCode=& quot;OBS"> <templateId root="2.16.840.1.194742.10..22.4.2& quot; /> <id nullFlavor="NA" /> <code codeSystem="local" code="300.2200" displayName="Calcium " /> <statusCode code="completed" /> & lt;effectiveTime value="710813186932" /> <value unit=& quot;MG/DL" xsi:type="PQ" value="9.8" /> & lt;referenceRange> <observationRange> <text& gt;8.4-10.2</text> </observationRange> </ referenceRange> </observation> </component> < component> <observation moodCode="EVN" classCode="OBS "> <templateId root="2.16.840.1.461315.10.20.22.4.2& quot; /> <id nullFlavor="NA" /> <code codeSystem="local" code="300.2700" displayName=" Bilirubin,Total" /> <statusCode code="completed" / > <effectiveTime value="095814626065" /> & lt;value unit="MG/DL" xsi:type="PQ" value="0.50" / > <referenceRange> <observationRange> <text>0.20-1.30</text> </observationRange> </referenceRange> </observation> </component > <component> <observation moodCode="EVN" classCode="OBS"> <templateId root=" 2.16.840.1.114728.10.20.22.4.2" /> <id nullFlavor="NA& quot; /> <code codeSystem="local" code="300.2975" displayName="Alkaline Phosphatase" /> <statusCode code= "completed" /> <effectiveTimevalue="816438675580& quot; /> <value unit="U/L" xsi:type="PQ"value ="80" /> <referenceRange> < observationRange> <text>38-126</text> </ observationRange> </referenceRange> </observation&gt ; </component> <component> <observation moodCode ="EVN" classCode="OBS"> <templateId root=& quot;2.16.840.1.130284.10.20.22.4.2" /> <id nullFlavor=&quot ;NA" /> <code codeSystem="local" code=" 300.3050" displayName="AST - [employer]" /> <statusCode code="completed" /> < effectiveTimevalue="[id number]" /> <value unit=" U/L" xsi:type="PQ"value="23" /> < referenceRange> <observationRange> <text>14-36& lt;/text> </observationRange> </referenceRange& gt; </observation> </component> <component> <observation moodCode="EVN" classCode="OBS"> <templateId root="[id number]" /> <id nullFlavor="NA" /> <code codeSystem=&quot ;local" code="300.3100" displayName="ALT" /> <statusCode code="completed" /> <effectiveTime value="[id number]" /> <value unit="U/L" xsi :type="PQ" value="45" /> <referenceRange> <observationRange> <text>9-52</text> </observationRange> </referenceRange> < /observation> </component> <component> < observation moodCode="EVN"classCode="OBS"> < templateId root="2.16.840.1.780344.10.20.22.4.2" /> < id nullFlavor="NA" /> <code codeSystem="local&quot ; code="300.3110" displayName="TP - Total Protein" /> <statusCode code="completed" /> < effectiveTime value="957215580539" /> <value unit="G/DL& quot; xsi:type="PQ" value="6.8" /> < referenceRange> <observationRange> <text> 6.3-8.2</text> </observationRange> </ referenceRange> </observation> </component> < component> <observation moodCode="EVN" classCode=" OBS"> <templateId root="2.16.840.1.507047.10.20.22.4.2& quot; /> <id nullFlavor="NA" /> <code codeSystem="local" code="300.3120" displayName=" Albumin Level" /> <statusCode code="completed" /& gt; <effectiveTime value="234787940961" /> &lt ;valueunit="G/DL" xsi:type="PQ" value="4.2" /> <referenceRange> <observationRange> <text>3.5-5.0</text> </observationRange> </referenceRange> </observation> </component> <component> <observation moodCode="EVN" classCode ="OBS"> <templateId root=" 2.16.840.1.403429.10.20.22.4.2" /> <idnullFlavor="NA& quot; /> <code codeSystem="local" code="300.3130& quot; displayName="Globulin" /> <statusCode code=" completed" /> <effectiveTime value="354173651697" /& gt; <value unit="G/DL" xsi:type="PQ" value=&quot ;2.6" /> <referenceRange> <observationRange > <text>2.4-3.6</text> </ observationRange> </referenceRange> </observation&gt ; </component> <component> <observation moodCode ="EVN" classCode="OBS"> <templateId root=& quot;2.16.840.1.140095.10.20.22.4.2" /> <id nullFlavor=&quot ;NA" /> <code codeSystem="local" code=" 300.3140" displayName="Albumin/Globulin Ratio" /> &lt ;statusCode code="completed" /> <effectiveTime value=" 520736609777" /> <value unit="RATIO" xsi:type=& quot;PQ" value="1.6" /> <referenceRange> <observationRange> <text>1.1-2.2</text> </observationRange> </referenceRange> </ observation> </component> <component> < observation moodCode="EVN" classCode="OBS"> < templateId root="2.16.840.1.493206.10.20.22.4.2" /> < id nullFlavor="NA" /> <code codeSystem="local&quot ; code="300.0095" displayName="LICTERUS" /> < statusCode code="completed" /> <effectiveTime value=& quot;402503990822" /> <value unit="" xsi:type=& quot;PQ"value="< 2" /> <referenceRange> <observationRange> <text>0-7</text> </observationRange> </referenceRange> &lt ;/observation> </component> <component> < observation moodCode="EVN" classCode="OBS"> < templateId root="2.16.840.1.940183.10..22.4.2" /> < id nullFlavor="NA" /> <code codeSystem="local&quot ; code="300.0096" displayName="LHEMOLYSIS" /> & lt;statusCode code="completed" /> <effectiveTime value= "500011036787" /> <value unit="" xsi:type=& quot;PQ" value="< 15" /> <referenceRange&gt ; <observationRange> <text>0-25</text&gt ; </observationRange> </referenceRange> </ observation> </component> <component> < observation moodCode="EVN" classCode="OBS"> < templateId root="2.16.840.1.003602.10..22.4.2" /> < id nullFlavor="NA" /> <code codeSystem="local&quot ; code="300.0097" displayName="LTURBIDITY" /> & lt;statusCode code="completed" /> <effectiveTime value= "905651308644"/> <value unit="" xsi:type=& quot;PQ" value="< 20" /> <referenceRange&gt ; <observationRange> <text>0-20</text&gt ; </observationRange> </referenceRange> & lt;/observation> </component> </organizer> </entry&gt ; <entry> <organizer moodCode="EVN" classCode=" BATTERY"> <templateId root="2.16.840.1.799729.10.20.22.4.1& quot; /> <id nullFlavor="NA" /> <code codeSystem ="local" code="LTSH" displayName="L200.3850" /&gt ; <statusCode code="completed" /> <component> <observation moodCode="EVN" classCode="OBS"> <templateId root="2.16.840.1.428549.10.20.22.4.2" /> <id nullFlavor="NA" /> <code codeSystem=" local" code="300.5500" displayName="TSH - Thyroid Stim Hormone" /> <statusCode code="completed" /> <effectiveTime value="546257161901" /> < value unit="MIU/L" xsi:type="PQ" value="1.70" /&gt ; <referenceRange> <observationRange> <text>0.47-4.68</text> </observationRange> </referenceRange> </observation> </component&gt ; </organizer> </entry> <entry> <organizer moodCode ="EVN" classCode="BATTERY"> <templateId root=& quot;2.16.840.1.544067.10.20.22.4.1" /> <id nullFlavor="NA& quot; /> <code codeSystem="local" code="LCBC" displayName="L100.0050" /> <statusCode code="completed " /> <component> <observation moodCode="EVN& quot; classCode="OBS"> <templateId root=" 2.16.840.1.638260.10.20.22.4.2" /> <id nullFlavor="NA& quot; /> <code codeSystem="local" code="100.0150& quot; displayName="WBC - WHITE BLOOD COUNT" /> < statusCode code="completed" /> <effectiveTime value=& quot;545551996243" /> <value unit="T/MM3" xsi:type ="PQ" value="13.4" /> <interpretationCode codeSystem="local" code="*" /> < referenceRange> <observationRange> <text> 4.5-11.0</text> </observationRange> </ referenceRange> </observation> </component> < component> <observation moodCode="EVN" classCode=" OBS"> <templateId root="2.16.840.1.827448.10.20.22.4.2& quot; /> <id nullFlavor="NA" /> <code codeSystem="local" code="100.0250" displayName="RED BLOOD COUNT" /> <statusCode code="completed" /&gt ; <effectiveTime value="125978560856" /> < value unit="M/MM3" xsi:type="PQ" value="4.94" /&gt ; <referenceRange> <observationRange> <text>4.00-5.20</text> </observationRange> &lt ;/referenceRange> </observation> </component> & lt;component> <observation moodCode="EVN" classCode=&quot ;OBS"> <templateId root="2.16.840.1.861028.10.20.22.4.2 " /><id nullFlavor="NA" /> <code codeSystem= "local" code="100.0300" displayName="HGB - HEMOGLOBIN& quot; /> <statusCode code="completed" /> & lt;effectiveTime value="919303881360" /> <value unit=& quot;GM/DL" xsi:type="PQ" value="14.1" /> & lt;referenceRange> <observationRange> <text& gt;12-16</text> </observationRange> </ referenceRange> </observation> </component> < component> <observation moodCode="EVN" classCode=" OBS"> <templateId root="2.16.840.1.340942.10.20.22.4.2& quot; /> <id nullFlavor="NA" /> <code codeSystem="local" code="100.0400"displayName="HCT - HEMATOCRIT" /> <statusCode code="completed" /> <effectiveTime value="625305304454" /> < value unit="%" xsi:type="PQ" value="41.8" /> <referenceRange> <observationRange> <text>36-46</text> </observationRange> </referenceRange> </observation> </component> < component> <observation moodCode="EVN" classCode=" OBS"> <templateId root="2.16.840.1.827448.10.20.22.4.2&quot ; /> <id nullFlavor="NA" /> <code codeSystem="local" code="100.0550" displayName="MEAN CORPUSCULAR VOLUME" /> <statusCode code="completed&quot ; /> <effectiveTime value="408190312570" /> <value unit="UM3" xsi:type="PQ" value="84.6" /> <referenceRange> <observationRange> < text>80-100</text> </observationRange> </ referenceRange> </observation> </component> < component> <observation moodCode="EVN" classCode=" OBS"><templateId root="2.16.840.1.680570.10.20.22.4.2" /&gt ; <id nullFlavor="NA" /> <code codeSystem=& quot;local" code="100.0600" displayName="MEAN CORPUSCULAR HGB" /> <statusCode code="completed" /> < effectiveTime value="160956363996" /> <value unit=&quot ;UUG" xsi:type="PQ" value="28.5" /> < referenceRange> <observationRange> <text> 26-34</text> </observationRange> </ referenceRange> </observation> </component> < component> <observation moodCode="EVN" classCode=" OBS"> <templateId root="2.16.840.1.805445.10..22.4.2& quot; /> <id nullFlavor="NA" /> <code codeSystem="local" code="100.0650" displayName="MEAN CORPUSCULAR HGB CONC([facility]" /> <statusCode code=" completed" /> <effectiveTime value="508735794230" /&gt ; <value unit="GM/DL" xsi:type="PQ" value=" 33.7" /> <referenceRange> <observationRange > <text>31-37</text> </ observationRange> </referenceRange> </observation&gt ; </component> <component> <observation moodCode ="EVN" classCode="OBS"> <templateId root=& quot;2.16.840.1.933169.10.20.22.4.2" /> <id nullFlavor=&quot ;NA" /> <code codeSystem="local" code=" 100.0750" displayName="RDW STANDARD DEVIATION" /> &lt ;statusCode code="completed" /><effectiveTime value=" 557412809936" /> <value unit="FL" xsi:type=" PQ" value="39.9" /> <referenceRange> <observationRange> <text>36.9-50.2</text> </observationRange> </referenceRange> </ observation> </component> <component> < observation moodCode="EVN" classCode="OBS"> < templateId root="2.16.840.1.797078.10.20.22.4.2" /> < id nullFlavor="NA"/> <code codeSystem="local&quot ; code="100.0850" displayName="PLT- PLATELET COUNT" /> <statusCode code="completed" /> < effectiveTime value="694865101017" /> <value unit=&quot ;T/MM3" xsi:type="PQ" value="329" /> < referenceRange> <observationRange> <text> 130-400</text> </observationRange></referenceRange&gt ; </observation> </component> <component> <observation moodCode="EVN" classCode="OBS"> <templateId root="2.16.840.1.762555.10.20.22.4.2" /> <id nullFlavor="NA" /> <code codeSystem="local " code="100.0950" displayName="MEAN PLATELET VOLUME" /& gt; <statusCode code="completed" /> < effectiveTime value="893042991217" /> <value unit=&quot ;UM3" xsi:type="PQ" value="9.2" /> < interpretationCode codeSystem="local" code="*" /> <referenceRange> <observationRange> < text>9.4-12.4</text> </observationRange> < /referenceRange> </observation> </component> &lt ;component> <observation moodCode="EVN" classCode=" OBS"> <templateId root="2.16.840.1.083520.10.20.22.4.2& quot; /> <id nullFlavor="NA" /> <code codeSystem="local" code="100.1050" displayName=" NEUTROPHILS % (AUTO)" /> <statusCode code=" completed" /> <effectiveTime value="567391212280" /> <value unit="%" xsi:type="PQ" value="64.6" /> <referenceRange> < observationRange> <text>33-66</text> </ observationRange> </referenceRange> </observation&gt ; </component> <component> <observation moodCode ="EVN" classCode="OBS"> <templateId root=& quot;2.16.840.1.027614.10.20.22.4.2" /> <id nullFlavor=&quot ;NA" /> <code codeSystem="local" code=" 100.1100" displayName="LYMPHOCYTES % (AUTO)" /> <statusCode code="completed" /> <effectiveTime value="676032872240" /> <value unit="%& quot; xsi:type="PQ" value="23.4" /> < referenceRange> <observationRange> <text>23 -45</text> </observationRange> </ referenceRange> </observation> </component> < component> <observation moodCode="EVN" classCode=" OBS"> <templateId root="2.16.840.1.828616.10.20.22.4.2& quot; /> <id nullFlavor="NA" /> <code codeSystem="local" code="100.1150" displayName=" MONOCYTES % (AUTO)" /> <statusCode code=" completed" /> <effectiveTimevalue="822967418693" / > <value unit="%" xsi:type="PQ" value ="6.6" /> <referenceRange> < observationRange> <text>0-9.0</text> < /observationRange> </referenceRange> </observation& gt; </component> <component> <observation moodCode="EVN" classCode="OBS"> <templateId root="2.16.840.1.426073.10.20.22.4.2" /> <id nullFlavor ="NA" /> <code codeSystem="local" code=" 100.1200" displayName="EOSINOPHILS % (AUTO)" /> <statusCode code="completed" /> <effectiveTime value="103219414783" /> <value unit="%& quot; xsi:type="PQ" value="4.6" /> < interpretationCode codeSystem="local" code="*" /> <referenceRange> <observationRange> <text>0-4& lt;/text> </observationRange> </referenceRange& gt; </observation> </component> <component> <observation moodCode="EVN" classCode="OBS"> <templateId root="216.840.1.598724.10.20.22.4.2" /> <id nullFlavor="NA" /> <code codeSystem=&quot ;local" code="100.1250" displayName="BASOPHILS % ( AUTO)"/> <statusCode code="completed" /> <effectiveTime value="744806687989" /> <value unit="%" xsi:type="PQ" value="0.4" /> <referenceRange> <observationRange> <text& gt;0-2</text> </observationRange> </ referenceRange> </observation> </component> < component> <observation moodCode="EVN" classCode=" OBS"> <templateId root="2.16.840.1.129126.10.20.22.4.2& quot; /> <id nullFlavor="NA" /> <code codeSystem="local" code="100.1275" displayName=" IMMATURE GRANULOCYTE % (AUTO)" /> <statusCode code=& quot;completed" /> <effectiveTimevalue="533700675595& quot; /> <value unit="%" xsi:type="PQ&quot ; value="0.4" /> <referenceRange> < observationRange> <text>0.0-0.5</text> & lt;/observationRange> </referenceRange> </ observation> </component> <component> < observation moodCode="EVN" classCode="OBS"> < templateId root="2.16.840.1.052723.10.20.22.4.2" /> < id nullFlavor="NA" /> <code codeSystem="local" code=& quot;100.1300" displayName="NEUTROPHILS # (AUTO)" /> <statusCode code="completed" /> <effectiveTime value ="770733972091" /> <value unit="T/MM3" xsi: type="PQ"value="8.6" /> <interpretationCode codeSystem="local" code="*" /> < referenceRange> <observationRange> <text> 1.8-7.7</text> </observationRange> </ referenceRange> </observation> </component> < component> <observation moodCode="EVN" classCode=" OBS"> <templateId root="2.16.840.1.407881.10.20.22.4.2& quot; /> <id nullFlavor="NA" /> <code codeSystem="local" code="100.1350" displayName=" LYMPHOCYTES # (AUTO)" /> <statusCode code="completed" /& gt; <effectiveTime value="384028465381" /> &lt ;value unit="T/MM3" xsi:type="PQ" value="3.1" /&gt ; <referenceRange> <observationRange> <text>1-4.8</text> </observationRange> </referenceRange> </observation> </component> <component> <observation moodCode="EVN" classCode= "OBS"> <templateId root=" 2.16.840.1.298476.10.20.22.4.2" /> <id nullFlavor="NA& quot; /> <code codeSystem="local" code="100.1400& quot; displayName="MONOCYTES # (AUTO)" /> <statusCode code="completed" /> <effectiveTime value=" 457059105365" /> <value unit="T/MM3" xsi:type=& quot;PQ" value="0.9" /> <interpretationCode codeSystem ="local" code="*" /> <referenceRange> <observationRange> <text>0-0.8</text> </observationRange> </referenceRange> </ observation> </component> <component> < observation moodCode="EVN" classCode="OBS"> < templateId root="2.16.840.1.925943.10.20.22.4.2" /><id nullFlavor="NA" /> <code codeSystem="local" code="100.1450" displayName="EOSINOPHILS # (AUTO)" /> <statusCode code="completed" /> < effectiveTime value="093124707109" /> <valueunit=" T/MM3" xsi:type="PQ" value="0.6" /> < interpretationCode codeSystem="local" code="*" /> <referenceRange> <observationRange> <text>0- 0.5</text> </observationRange> </ referenceRange> </observation> </component> < component> <observation moodCode="EVN" classCode=" OBS"><templateId root="2.16.840.1.960873.10.20.22.4.2" /&gt ; <id nullFlavor="NA" /> <code codeSystem=& quot;local" code="100.1500" displayName="BASOPHILS # (AUTO)& quot; /> <statusCode code="completed" /> < effectiveTime value="401981122074" /> <value unit=&quot ;T/MM3" xsi:type="PQ" value="0.1" /> < referenceRange> <observationRange> <text> 0-0.2</text> </observationRange> </referenceRange > </observation> </component> <component> <observation moodCode="EVN" classCode="OBS"> <templateId root="2.16.840.1.772530.10..22.4.2" /> <id nullFlavor="NA"/> <code codeSystem=&quot ;local" code="100.1525" displayName="IMMATURE GRANULOCYTE # (AUTO)" /> <statusCode code="completed" /> & lt;effectiveTime value="194388630034" /> <value unit=& quot;T/MM3" xsi:type="PQ" value="0.05" /> & lt;interpretationCode codeSystem="local" code="*" /> <referenceRange> <observationRange> & lt;text>0.00-0.03</text> </observationRange> </referenceRange> </observation> </component> & lt;/organizer> </entry> <entry> <organizer moodCode=&quot ;EVN" classCode="BATTERY"> <templateId root=" 2.16.840.1.612568.10.20.22.4.1" /> <id nullFlavor="NA&quot ; /> <code codeSystem="local" code="LCMP" displayName="L200.0020" /> <statusCode code="completed " /> <component> <observation moodCode="EVN" classCode="OBS"> <templateId root=" 2.16.840.1.378415.10.20.22.4.2" /> <id nullFlavor="NA& quot; /> <code codeSystem="local" code="300.0400&quot ; displayName="FUNGAL CULTURE." /> <statusCode code=& quot;completed" /> <effectiveTime value="621700277306& quot; /> <value unit="MG/DL" xsi:type="PQ" value="1.0" /> <referenceRange> < observationRange> <text>0.7-1.2</text> </ observationRange> </referenceRange> </observation&gt ; </component> <component> <observation moodCode ="EVN" classCode="OBS"> <templateId root=& quot;2.16.840.1.746308.10.20.22.4.2" /> <id nullFlavor=&quot ;NA" /> <code codeSystem="local" code=" 300.0450" displayName="FUNGAL CULTURE, BLOOD." /> &lt ;statusCode code="completed" /> <effectiveTime value=& quot;384775610333" /> <value unit="RATIO" xsi:type ="PQ" value="15" /> <referenceRange> <observationRange> <text>6-26</text> < /observationRange> </referenceRange> </observation& gt; </component> <component> < observationmoodCode="EVN" classCode="OBS"> < templateId root="2.16.840.1.289019.10..22.4.2" /> < id nullFlavor="NA" /> <code codeSystem="local&quot ; code="300.0100" displayName="NA - Sodium" /> < statusCode code="completed" /> <effectiveTime value=& quot;350586553229" /> <value unit="MEQ/L" xsi:type ="PQ" value="140"/> <referenceRange> <observationRange> <text>134-144</text> </observationRange> </referenceRange> < /observation> </component> <component> < observation moodCode="EVN" classCode="OBS"> < templateId root="2.16.840.1.734106.10..22.4.2" /> < id nullFlavor="NA" /> <code codeSystem="local&quot ; code="300.0150" displayName="Potassium" /> &lt ;statusCodecode="completed" /> <effectiveTime value=& quot;384713901195" /> <value unit="MEQ/L" xsi:type=& quot;PQ" value="4.1" /> <referenceRange> <observationRange> <text>3.6-5</text> </observationRange> </referenceRange> </ observation> </component> <component> < observation moodCode="EVN" classCode="OBS"> < templateId root="2.16.840.1.394695.10.20.22.4.2" /> <id nullFlavor="NA" /> <code codeSystem="local" code="300.0200" displayName="Chloride" /> < statusCode code="completed" /> <effectiveTime value=& quot;255098150375" /> <value unit="MEQ/L" xsi:type ="PQ" value="106" /> <referenceRange> <observationRange> <text>98-107</text> </observationRange> </referenceRange> < /observation> </component> <component> < observation moodCode="EVN" classCode="OBS"> < templateId root="2.16.840.1.995586.10.20.22.4.2" /> < id nullFlavor="NA" /> <code codeSystem="local&quot ; code="300.0250" displayName="CO2 - Carbon Dioxide" /> <statusCode code="completed"/> < effectiveTime value="670472764435" /> <value unit=&quot ;MEQ/L" xsi:type="PQ" value="25" /> < referenceRange> <observationRange> <text>22-30&lt ;/text> </observationRange> </referenceRange&gt ; </observation> </component> <component> <observation moodCode="EVN" classCode="OBS"> &lt ;templateId root="2.16.840.1.941254.10.20.22.4.2" /> < id nullFlavor="NA" /> <code codeSystem="local&quot ; code="300.0300" displayName="Anion Gap" /> &lt ;statusCode code="completed" /> <effectiveTime value=& quot;439208488463" /> <value unit="MEQ/L" xsi:type ="PQ" value="9" /> <referenceRange> <observationRange> <text>5-15</text> </observationRange> </referenceRange> </ observation> </component> <component> <observation moodCode="EVN" classCode="OBS"> <templateId root="2.16.840.1.543900.10.20.22.4.2" /> <id nullFlavor ="NA" /> <code codeSystem="local" code=" 300.0350" displayName="BUN - Blood Urea Nitrogen" /> <statusCode code="completed" /> <effectiveTime value ="477402051866" /> <value unit="MG/DL" xsi: type="PQ" value="15.0" /> <referenceRange&gt ; <observationRange> <text>7-17</text&gt ; </observationRange> </referenceRange> & lt;/observation> </component> <component> < observation moodCode="EVN" classCode="OBS"> < templateId root="2.16.840.1.530339.10.20.22.4.2" /> < id nullFlavor="NA" /> <code codeSystem="local" code=& quot;300.0410" displayName="Glomerular Filtration Rate" /> <statusCode code="completed" /> < effectiveTime value="821621919889" /> <value unit=&quot ;" xsi:type="PQ" value="65" /> < referenceRange> <observationRange> <text>NRG& lt;/text> </observationRange> </referenceRange& gt; </observation> </component> <component> <observation moodCode="EVN" classCode="OBS"> <templateId root="2.16.840.1.575538.10.20.22.4.2" /> <id nullFlavor="NA" /> <code codeSystem=&quot ;local" code="300.0500" displayName="Glucose" /> & lt;statusCode code="completed" /> <effectiveTime value= "805733387877" /> <value unit="MG/DL" xsi: type="PQ" value="108"/> <referenceRange> <observationRange> <text>65-110</text&gt ; </observationRange> </referenceRange> & lt;/observation> </component> <component> < observation moodCode="EVN" classCode="OBS"> < templateId root="2.16.840.1.171719.10.20.22.4.2" /> < id nullFlavor="NA" /> <code codeSystem="local&quot ; code="300.2000" displayName="Osmolality,Calculated" /> <statusCode code="completed" /> < effectiveTime value="795674472991" /> <value unit=&quot ;MOSM/KG" xsi:type="PQ" value="271" /> < referenceRange> <observationRange> <text> 261-280</text> </observationRange> </ referenceRange> </observation> </component> < component> <observation moodCode="EVN" classCode=" OBS"> <templateId root="2.16.840.1.630461.10.20.22.4.2& quot; /> <id nullFlavor="NA" /> <code codeSystem="local" code="300.2200" displayName="Calcium " /> <statusCode code="completed" /> & lt;effectiveTime value="036032029620" /> <value unit=& quot;MG/DL" xsi:type="PQ" value="9.2" /> & lt;referenceRange> <observationRange> <text& gt;8.4-10.2</text> </observationRange> </ referenceRange> </observation> </component> < component> <observation moodCode="EVN" classCode=" OBS"> <templateId root="2.16.840.1.982857.10.20.22.4.2& quot; /> <id nullFlavor="NA" /> <code codeSystem="local" code="300.2700" displayName=" Bilirubin,Total" /> <statusCode code="completed" / > <effectiveTime value="290920355789" /> & lt;value unit="MG/DL" xsi:type="PQ" value="0.50" / > <referenceRange> <observationRange> <text>0.20-1.30</text></observationRange> < /referenceRange> </observation> </component> &lt ;component> <observation moodCode="EVN" classCode=" OBS"> <templateId root="2.16.840.1.182871.10.20.22.4.2& quot; /> <id nullFlavor="NA" /> <code codeSystem="local" code="300.2975" displayName=" Alkaline Phosphatase" /> <statusCode code="completed& quot; /> <effectiveTime value="622521913930" /> <value unit="U/L" xsi:type="PQ" value="91&quot ; /> <referenceRange> <observationRange> <text>38-126</text> </observationRange> </referenceRange> </observation> </component& gt; <component> <observation moodCode="EVN" classCode="OBS"> <templateId root=" 2.16.840.1.588960.10.20.22.4.2" /> <id nullFlavor="NA& quot; /> <code codeSystem="local" code="300.3050& quot; displayName="AST - Aspartate Amino Transfer" /> < statusCode code="completed" /> <effectiveTime value=& quot;287382348569" /> <value unit="U/L" xsi:type=& quot;PQ" value="18" /> <referenceRange> <observationRange> <text>14-36</text> </observationRange> </referenceRange> </ observation> </component> <component> < observation moodCode="EVN" classCode="OBS"> < templateId root="2.16.840.1.279923.10.20.22.4.2" /> < id nullFlavor="NA" /> <code codeSystem="local&quot ; code="300.3100" displayName="ALT" /> < statusCode code="completed" /> <effectiveTime value=& quot;265891949009" /> <value unit="U/L" xsi:type=& quot;PQ" value="40" /> <referenceRange> <observationRange> <text>9-52</text> </observationRange> </referenceRange> </ observation> </component> <component><observation moodCode="EVN" classCode="OBS"> <templateId root="2.16.840.1.905066.10.20.22.4.2" /> <id nullFlavor ="NA" /> <code codeSystem="local" code=" 300.3110" displayName="TP - Total Protein" /> < statusCode code="completed" /> <effectiveTime value=& quot;986802206105" /> <value unit="G/DL" xsi:type= "PQ"value="6.8" /> <referenceRange> <observationRange> <text>6.3-8.2</text> </observationRange> </referenceRange> </ observation> </component> <component> < observation moodCode="EVN" classCode="OBS"> < templateId root="[id number]" /> < id nullFlavor="NA" /> <code codeSystem="local&quot ; code="300.3120" displayName="Albumin Level" /> <statusCode code="completed" /> <effectiveTime value="[id number]" /> <value unit="G/DL" xsi:type="PQ" value="4.3" /> <referenceRange& gt; <observationRange> <text>3.5-5.0</ text> </observationRange> </referenceRange> </observation> </component> <component> &lt ;observation moodCode="EVN" classCode="OBS"> &lt ;templateId root="[id number]" /> < id nullFlavor="NA" /> <code codeSystem="local&quot ; code="300.3130" displayName="Globulin" /> < statusCode code="completed" /> <effectiveTime value=& quot;264555728227" /> <value unit="G/DL" xsi:type= "PQ" value="2.5" /> <referenceRange> <observationRange> <text>2.4-3.6</text> </observationRange> </referenceRange> </ observation> </component> <component> < observation moodCode="EVN" classCode="OBS"> < templateId root="2.16.840.1.261217.10.20.22.4.2"/> <id nullFlavor="NA" /> <code codeSystem="local" code="300.3140" displayName="Albumin/Globulin Ratio" /> <statusCode code="completed" /> < effectiveTime value="882924028504" /> <value unit=" RATIO" xsi:type="PQ" value="1.7" />< referenceRange> <observationRange> <text> 1.1-2.2</text> </observationRange> </ referenceRange> </observation> </component> < component> <observation moodCode="EVN" classCode=" OBS"> <templateId root="2.16.840.1.653352.10.20.22.4.2& quot; /> <id nullFlavor="NA" /> <code codeSystem="local" code="300.0095" displayName=" LICTERUS" /> <statusCode code="completed" /> <effectiveTime value="383799966438" /> < value unit="" xsi:type="PQ" value="< 2" /& gt; <referenceRange> <observationRange> <text>0-7</text> </observationRange> </referenceRange> </observation> </component> <component> <observation moodCode="EVN" classCode= "OBS"> <templateId root=" 2.16.840.1.839747.10.20.22.4.2" /> <id nullFlavor="NA& quot; /> <code codeSystem="local" code="300.0096& quot; displayName="LHEMOLYSIS" /> <statusCode code=& quot;completed" /> <effectiveTime value="739066244765& quot; /> <value unit="" xsi:type="PQ" value=& quot;< 15" /> <referenceRange> < observationRange> <text>0-25</text> </ observationRange> </referenceRange> </observation&gt ; </component> <component> <observation moodCode ="EVN" classCode="OBS"> <templateId root=& quot;2.16.840.1.898810.10.20.22.4.2" /> <id nullFlavor=&quot ;NA" /> <code codeSystem="local" code=" 300.0097" displayName="LTURBIDITY" /> <statusCode code="completed" /> <effectiveTime value=" 751361066875" /> <value unit="" xsi:type="PQ& quot; value="< 20" /> <referenceRange> <observationRange> <text>0-20</text> </observationRange> </referenceRange> </ observation> </component> </organizer> </entry> & lt;entry> <organizer moodCode="EVN" classCode="BATTERY& quot;> <templateId root="2.16.840.1.600194.10.20.22.4.1" /& gt; <id nullFlavor="NA" /> <code codeSystem=" local" code="KWABENA" displayName="L600.0100" /> & lt;statusCode code="completed" /> <component> < observation moodCode="EVN" classCode="OBS"> < templateId root="2.16.840.1.650324.10.20.22.4.2" /> < id nullFlavor="NA" /> <code codeSystem="local" code="200.0150" displayName="POTASSIUM" /> < statusCode code="completed" /> <effectiveTime value=& quot;668177893464" /> <value unit="" xsi:type=& quot;PQ" value="Urine, Clean Catch" /> < referenceRange> <observationRange> <text> NRG</text> </observationRange> </ referenceRange> </observation> </component> < component> <observation moodCode="EVN" classCode=" OBS"> <templateId root="2.16.840.1.716054.10.20.22.4.2& quot; /> <id nullFlavor="NA" /> <code codeSystem="local" code="200.0200" displayName=" CHLORIDE" /> <statusCode code="completed" /> <effectiveTime value="867486401719" /> <value unit="" xsi:type="PQ" value="YELLOW" /> <referenceRange> <observationRange> < text>YELLOW</text> </observationRange> </ referenceRange> </observation> </component> < component> <observation moodCode="EVN" classCode=" OBS"> <templateId root="2.16.840.1.694220.10.20.22.4.2& quot; /> <id nullFlavor="NA" /> <code codeSystem="local" code="200.0300" displayName="ANION GAP" /> <statusCode code="completed" /> <effectiveTime value="478757855129" /> <value unit=& quot;" xsi:type="PQ" value="CLEAR" /> < referenceRange> <observationRange> <text> NRG</text> </observationRange> </referenceRange& gt; </observation> </component> <component> <observation moodCode="EVN" classCode="OBS"> <templateId root="2.16.840.1.995544.10.20.22.4.2" /> <id nullFlavor="NA" /> <code codeSystem="local& quot; code="200.0350" displayName="BLOOD UREA NITROGEN" /&gt ; <statusCode code="completed" /> < effectiveTime value="758010006562" /> <value unit=&quot ;" xsi:type="PQ" value="6.0" /> < referenceRange> <observationRange> <text> 5.0-8.0</text> </observationRange> </ referenceRange> </observation> </component> < component> <observation moodCode="EVN" classCode=" OBS"> <templateId root="2.16.840.1.923306.10.20.22.4.2& quot; /> <id nullFlavor="NA" /> <code codeSystem="local" code="200.0450" displayName="BUN/ CREATININE RATIO" /> <statusCode code="completed" /> <effectiveTime value="930803490134" /> & lt;value unit="" xsi:type="PQ" value="NEGATIVE" /& gt; <referenceRange> <observationRange> <text>NEGATIVE</text> </observationRange> </referenceRange> </observation> </component> <component> <observation moodCode="EVN" classCode="OBS"> <templateId root=" 2.16.840.1.272157.10.20.22.4.2" /> <id nullFlavor="NA& quot; /> <code codeSystem="local" code="200.0500& quot; displayName="GLUCOSE" /> <statusCode code=" completed" /> <effectiveTime value="290374822586" /> <value unit="" xsi:type="PQ" value="NEGATIVE& quot; /> <referenceRange> <observationRange> <text>NEGATIVE</text> </observationRange > </referenceRange> </observation> </ component> <component> <observation moodCode="EVN& quot; classCode="OBS"> <templateId root=" 2.16.840.1.552203.10.20.22.4.2" /> <id nullFlavor="NA& quot; /> <code codeSystem="local" code="200.0600& quot; displayName="CALCIUM" /> <statusCode code=" completed" /> <effectiveTime value="125818662866" /> <value unit="" xsi:type="PQ" value=" NEGATIVE" /> <referenceRange> < observationRange> <text>NEGATIVE</text> < /observationRange> </referenceRange> </observation& gt; </component> <component> <observation moodCode="EVN" classCode="OBS"> <templateId root="2.16.840.1.058946.10.20.22.4.2" /> <id nullFlavor ="NA" /> <code codeSystem="local" code=" 200.0750" displayName="BILIRUBIN, CONJUG &amp; UNCONJUG" /> <statusCode code="completed" /> < effectiveTime value="296865928482" /> <value unit=&quot ;" xsi:type="PQ" value="NEGATIVE" /> < referenceRange> <observationRange> <text> NEGATIVE</text> </observationRange> </ referenceRange> </observation> </component> < component> <observation moodCode="EVN" classCode=" OBS"> <templateId root="2.16.840.1.715710.10.20.22.4.2& quot; /> <id nullFlavor="NA" /> <code codeSystem="local" code="200.0325" displayName=" Specific [place],Urine" /> <statusCode code="completed& quot; /> <effectiveTime value="464906703167" /> <value unit="" xsi:type="PQ" value="1.015&quot ; /> <referenceRange> <observationRange> <text>1.015-1.025</text> </observationRange& gt; </referenceRange> </observation> </component&gt ; <component> <observation moodCode="EVN" classCode="OBS"> <templateId root=" 2.16.840.1.048893.10.20.22.4.2" /> <id nullFlavor="NA& quot; /> <code codeSystem="local" code="200.0410& quot; displayName="Leukocyte Esterase,Urine" /> < statusCode code="completed" /> <effectiveTime value=& quot;295402891848" /> <value unit="" xsi:type=& quot;PQ" value="NEGATIVE" /> <referenceRange> <observationRange> <text>NEGATIVE</text& gt; </observationRange> </referenceRange> </ observation> </component> <component> < observation moodCode="EVN" classCode="OBS"> < templateIdroot="2.16.840.1.979501.10.20.22.4.2" /> <id nullFlavor="NA" /> <code codeSystem="local" code="200.0420" displayName="Nitrate,Urine" /> & lt;statusCode code="completed" /> <effectiveTimevalue=& quot;927015844008" /> <value unit="" xsi:type=& quot;PQ" value="NEGATIVE" /> <referenceRange> <observationRange> <text>NEGATIVE</text> </observationRange> </referenceRange> &lt ;/observation> </component> <component> < observation moodCode="EVN" classCode="OBS"> < templateId root="2.16.840.1.150076.10.20.22.4.2" /> < id nullFlavor="NA" /> <code codeSystem="local&quot ; code="200.0740" displayName="Urobilinogen,Urine" /> <statusCode code="completed" /> < effectiveTime value="646825551986" /> <value unit=&quot ;EU/DL" xsi:type="PQ" value="0.2" /> < referenceRange> <observationRange> <text>NORMAL</ text> </observationRange> </referenceRange> </observation> </component> <component> <observation moodCode="EVN" classCode="OBS"> <templateId root="2.16.840.1.300130.10.20.22.4.2" /> <id nullFlavor="NA" /> <code codeSystem=" local" code="200.0825" displayName="Occult Blood,Urine - Dipstick" /> <statusCode code="completed" /> <effectiveTime value="065768932234" /> < value unit="" xsi:type="PQ" value="TRACE-INTACT" / > <referenceRange> <observationRange> <text>NEGATIVE</text> </observationRange> </referenceRange> </observation> </component> <component> <observation moodCode="EVN" classCode ="OBS"> <templateId root=" 2.16.840.1.475025.10.20.22.4.2" /> <id nullFlavor="NA& quot; /> <code codeSystem="local" code="200.0992& quot; displayName="Urine Microscopic (UA)" /> < statusCode code="completed" /> <effectiveTime value=& quot;770336630064" /> <value unit="" xsi:type=& quot;PQ" value="Microscopic Not Ind." /> < referenceRange> <observationRange> <text> NRG</text> </observationRange> </ referenceRange> </observation> </component> </ organizer> </entry> <entry> <organizer moodCode="EVN " classCode="BATTERY"><templateId root=" 2.16.840.1.537180.10.20.22.4.1" /> <id nullFlavor="NA&quot ; /> <code codeSystem="local" code="CBCD" displayName="CBC W/DIFF" /> <statusCode code=" completed" /> <component> <observation moodCode=& quot;EVN" classCode="OBS"> <templateId root=" 2.16.840.1.762183.10.20.22.4.2" /> <id nullFlavor="NA& quot; /> <code codeSystem="local" code="EO#" displayName="EOSINOPHIL #" /> <statusCode code=" completed" /> <effectiveTime value="146388595281" /> <value unit="k/cumm" xsi:type="PQ" value=& quot;0.6" /> <interpretationCode codeSystem="local&quot ; code="*" /> <referenceRange> < observationRange> <text>0.1-0.5</text> & lt;/observationRange> </referenceRange> </ observation> </component> <component> < observation moodCode="EVN" classCode="OBS"> < templateId root="2.16.840.1.557528.10.20.22.4.2" /> < id nullFlavor="NA" /> <code codeSystem="local&quot ; code="EO%" displayName="EOSINOPHIL %" /&gt ; <statusCode code="completed" /> < effectiveTime value="037670537703" /> <value unit=&quot ;%" xsi:type="PQ" value="5" /> < interpretationCode codeSystem="local" code="*" /> <referenceRange> <observationRange> < text>2-4</text> </observationRange> </ referenceRange> </observation> </component> < component> <observation moodCode="EVN" classCode=" OBS"> <templateId root="2.16.840.1.485801.10.20.22.4.2& quot; /> <id nullFlavor="NA" /> <code codeSystem="local" code="GR#" displayName="GRANULOCYTE #" /> <statusCode code="completed" /> <effectiveTime value="006629517034" /> <value unit=& quot;k/cumm" xsi:type="PQ" value="7.5" /> & lt;referenceRange> <observationRange> <text> 2.0-9.0</text> </observationRange> </ referenceRange> </observation> </component> < component> <observation moodCode="EVN" classCode=" OBS"> <templateId root="2.16.840.1.573672.10.20.22.4.2& quot; /> <id nullFlavor="NA" /> <code codeSystem="local" code="GR%"displayName=" GRANULOCYTE %" /> <statusCode code="completed& quot; /> <effectiveTime value="486777063975" /> <value unit="%" xsi:type="PQ" value=" 61" /> <referenceRange> <observationRange&gt ; <text>50-75</text> </observationRange& gt; </referenceRange> </observation> </ component> <component> <observation moodCode="EVN& quot; classCode="OBS"> <templateId root=" 2.16.840.1.349426.10.20.22.4.2" /> <id nullFlavor="NA& quot; /> <code codeSystem="local" code="LY#" displayName="LYMPHOCYTE #" /> <statusCode code=" completed" /> <effectiveTime value="161473111574" /> <value unit="k/cumm" xsi:type="PQ" value=& quot;3.3" /> <referenceRange> < observationRange> <text>1.0-4.0</text> & lt;/observationRange> </referenceRange> </observation&gt ; </component> <component> <observation moodCode ="EVN" classCode="OBS"> <templateId root=& quot;2.16.840.1.204772.10.20.22.4.2" /> <id nullFlavor=&quot ;NA"/> <code codeSystem="local" code="LY& #37;" displayName="LYMPHOCYTE %" /> < statusCode code="completed" /> <effectiveTime value=& quot;308235066147" /> <value unit="%" xsi: type="PQ" value="26" /> <referenceRange> <observationRange> <text>20-30</text> </observationRange> </referenceRange> </ observation> </component> <component> < observation moodCode="EVN" classCode="OBS"> < templateId root="2.16.840.1.915459.10.20.22.4.2" /> < id nullFlavor="NA" /> <code codeSystem="local&quot ; code="MCH" displayName="MEAN CELL HGB" /> < statusCode code="completed" /> <effectiveTime value=& quot;814594118185" /> <value unit="pg" xsi:type=& quot;PQ" value="28.3" /> <referenceRange> <observationRange> <text>27.0-33.0</text> </observationRange> </referenceRange> </ observation> </component> <component> < observation moodCode="EVN" classCode="OBS"> < templateId root="2.16.840.1.724890.10.20.22.4.2" /> < id nullFlavor="NA" /> <code codeSystem="local&quot ; code="MCHC" displayName="MEAN CELL HGB CONCENTRATION" /&gt ; <statusCode code="completed" /> < effectiveTime value="048046699068" /> <value unit=&quot ;g/dL" xsi:type="PQ" value="33.2" /> < referenceRange> <observationRange> <text>32.0-37.0 </text> </observationRange> </referenceRange& gt; </observation> </component> <component> <observation moodCode="EVN" classCode="OBS"> <templateId root="2.16.840.1.566174.10.20.22.4.2" /> <id nullFlavor="NA" /> <code codeSystem=&quot ;local" code="MCV" displayName="MEAN CELL VOLUME" /&gt ; <statusCode code="completed" /> < effectiveTime value="098246428232" /> <value unit=&quot ;fl" xsi:type="PQ" value="85.1" /> < referenceRange> <observationRange> <text> 80.0-100.0</text> </observationRange> </ referenceRange> </observation> </component> < component> <observation moodCode="EVN" classCode=" OBS"> <templateId root="2.16.840.1.367768.10.20.22.4.2& quot; /> <id nullFlavor="NA" /> <code codeSystem="local" code="MO#" displayName="MONOCYTE #& quot; /> <statusCode code="completed" /> & lt;effectiveTime value="838359944006" /> <value unit=& quot;k/cumm" xsi:type="PQ" value="0.9" /> < referenceRange> <observationRange> <text> 0.1-1.0</text> </observationRange> </ referenceRange> </observation> </component> < component> <observation moodCode="EVN" classCode=" OBS"> <templateId root="2.16.840.1.542589.10.20.22.4.2& quot; /> <id nullFlavor="NA" /> <code codeSystem="local" code="MO%" displayName=" MONOCYTE %" /> <statusCode code="completed&quot ; /> <effectiveTime value="196379030748" /> < value unit="%" xsi:type="PQ" value="7" /& gt; <interpretationCode codeSystem="local" code="*& quot; /> <referenceRange> <observationRange> <text>4-6</text> </observationRange> </referenceRange> </observation> </ component> <component> <observation moodCode="EVN& quot; classCode="OBS"> <templateId root=" 2.16.840.1.451921.10..22.4.2" /> <id nullFlavor="NA& quot; /> <code codeSystem="local" code="RBC" displayName="RED BLOOD CELL" /> <statusCode code=" completed" /> <effectiveTime value="958825802558" /& gt; <value unit="m/cumm" xsi:type="PQ" value=& quot;4.56" /> <referenceRange> < observationRange> <text>4.00-6.00</text> </observationRange> </referenceRange> </ observation> </component> <component> < observation moodCode="EVN" classCode="OBS"> < templateId root="2.16.840.1.445242.10.20.22.4.2" /> < id nullFlavor="NA" /> <code codeSystem="local&quot ; code="RDW" displayName="RED CELL DISTRIBUTION WIDTH" /&gt ; <statusCode code="completed" /> < effectiveTime value="162217370012" /> <value unit=&quot ;%" xsi:type="PQ" value="13.0" /> & lt;referenceRange> <observationRange> <text>11.0- 15.6</text> </observationRange> </ referenceRange> </observation> </component>< component> <observation moodCode="EVN" classCode=" OBS"> <templateId root="2.16.840.1.199994.10.20.22.4.2" /> <id nullFlavor="NA" /> <code codeSystem="local" code="WBC" displayName="WHITE BLOOD CELL" /> <statusCode code="completed" /> <effectiveTime value="871246455376" /> <value unit="k/cumm" xsi:type="PQ" value="12.4" /> <interpretationCode codeSystem="local" code="*" /& gt; <referenceRange> <observationRange> <text>5.0-10.0</text> </observationRange> </referenceRange> </observation> </component& gt; <component> <observation moodCode="EVN" classCode="OBS"> <templateId root=" 2.16.840.1.778192.10.20.22.4.2" /> <id nullFlavor="NA& quot; /> <code codeSystem="local" code="HGBT" displayName="HEMOGLOBIN" /> <statusCode code=" completed" /> <effectiveTime value="472989916220" /> <value unit="gm/dL" xsi:type="PQ" value=& quot;12.9" /> <referenceRange> < observationRange> <text>12.0-16.0</text> </observationRange> </referenceRange> </ observation> </component> <component> < observation moodCode="EVN" classCode="OBS"> < templateId root="2.16.840.1.989080.10.20.22.4.2" /> < id nullFlavor="NA" /> <code codeSystem="local&quot ; code="HCTT" displayName="HEMATOCRIT" /> < statusCode code="completed" /> <effectiveTime value=& quot;545226947601" /> <value unit="%" xsi: type="PQ" value="38.8" /> <referenceRange&gt ; <observationRange> <text>37.0-47.0</ text> </observationRange> </referenceRange> </observation> </component> <component> <observation moodCode="EVN" classCode="OBS"> <templateId root="2.16.840.1.113619.10.20.22.4.2" /> <id nullFlavor="NA" /> <code codeSystem=" local" code="PLTT" displayName="PLATELET COUNT" /> <statusCodecode="completed" /> < effectiveTime value="439724024944" /> <value unit="k/ cumm" xsi:type="PQ" value="313" /> < referenceRange> <observationRange> <text> 150-400</text> </observationRange> </ referenceRange> </observation> </component> </ organizer> </entry> <entry> <organizer moodCode="EVN " classCode="BATTERY"> <templateId root=" 2.16.840.1.696657.10.20.22.4.1" /> <id nullFlavor="NA&quot ; /> <code codeSystem="local" code="LACT" displayName="LACTIC ACID" /> <statusCode code=" completed" /> <component> <observation moodCode=& quot;EVN" classCode="OBS"> <templateId root=" 2.16.840.1.897624.10.20.22.4.2" /> <id nullFlavor="NA& quot; /> <code codeSystem="local" code="LACT&quot ; displayName="LACTIC ACID" /> <statusCode code=" completed" /> <effectiveTime value="300951820502" /> <valueunit="mmol/L" xsi:type="PQ" value=& quot;1.2" /> <referenceRange> < observationRange> <text>0.5-2.0</text> & lt;/observationRange> </referenceRange> </ observation> </component> </organizer> </entry> & lt;entry> <organizer moodCode="EVN" classCode="BATTERY& quot;> <templateId root="2.16.840.1.211388.10.20.22.4.1" /& gt; <id nullFlavor="NA" /> <code codeSystem=" local" code="METABC" displayName="METABOLIC PANEL, COMPREHN& quot; /> <statusCode code="completed" /> < component> <observation moodCode="EVN" classCode=" OBS"> <templateId root="2.16.840.1.461501.10.20.22.4.2& quot; /> <id nullFlavor="NA" /> <code codeSystem="local" code="K" displayName="POTASSIUM&quot ; /> <statusCode code="completed" /> < effectiveTime value="201781418023" /> <value unit=&quot ;mmol/L" xsi:type="PQ" value="3.6" /> < referenceRange> <observationRange> <text> 3.5-5.3</text> </observationRange> </ referenceRange> </observation> </component> < component> <observation moodCode="EVN" classCode=" OBS"> <templateId root="2.16.840.1.902676.10.20.22.4.2& quot; /> <id nullFlavor="NA" /> <code codeSystem="local" code="eGFR" displayName="EST GFR ( MDRD)" /> <statusCode code="completed" /> <effectiveTime value="647007841744" /> <value unit="mL/min" xsi:type="PQ" value="58" /> <interpretationCode codeSystem="local" code="*" /&gt ; <referenceRange> <observationRange> <text>> 59</text> </observationRange> </referenceRange> </observation> </component> <component> <observation moodCode="EVN" classCode=& quot;OBS"> <templateId root=" 2.16.840.1.696598.10.20.22.4.2" /> <id nullFlavor="NA& quot; /> <code codeSystem="local" code="GAP" displayName="ANION GAP" /> <statusCode code=" completed" /> <effectiveTime value="138192755902" /> <value unit="mmol/L" xsi:type="PQ" value=& quot;7" /> <referenceRange> < observationRange> <text>5-15</text> </ observationRange> </referenceRange> </observation&gt ; </component> <component> <observation moodCode ="EVN" classCode="OBS"> <templateId root=& quot;2.16.840.1.101121.10.20.22.4.2" /> <id nullFlavor=&quot ;NA" /> <code codeSystem="local" code="eCrCl& quot; displayName="EST CrCl (CG)" /> <statusCode code=& quot;completed" /> <effectiveTime value="564942571075& quot; /> <value unit="mL/min" xsi:type="PQ" value="> 60" /> <referenceRange> & lt;observationRange> <text>> 59</text> </observationRange> </referenceRange> </ observation> </component> <component> < observation moodCode="EVN" classCode="OBS"> < templateId root="2.16.840.1.000878.10.20.22.4.2" /> < id nullFlavor="NA" /> <code codeSystem="local&quot ; code="GLU" displayName="GLUCOSE" /> < statusCode code="completed" /> <effectiveTime value=& quot;256603640309" /> <value unit="mg/dL" xsi:type=& quot;PQ" value="130" /> <interpretationCode codeSystem=& quot;local" code="*" /> <referenceRange> <observationRange> <text>70-99</text> </observationRange> </referenceRange> </ observation> </component> <component> < observation moodCode="EVN" classCode="OBS"> < templateId root="2.16.840.1.022228.10.20.22.4.2" /> < id nullFlavor="NA" /> <code codeSystem="local&quot ; code="CA"displayName="CALCIUM" /> < statusCode code="completed" /> <effectiveTime value=" 288786749455" /> <value unit="mg/dL" xsi:type=& quot;PQ" value="7.6" /> <interpretationCode codeSystem="local" code="*" /> < referenceRange> <observationRange> <text> 8.5-10.1</text> </observationRange> </ referenceRange> </observation> </component> < component><observation moodCode="EVN" classCode="OBS"& gt; <templateId root="2.16.840.1.771597.10.20.22.4.2" /&gt ; <id nullFlavor="NA" /> <code codeSystem=" local" code="BUN" displayName="BLOOD UREA NITROGEN" /& gt; <statusCode code="completed" /> < effectiveTime value="939794383751" /> <value unit=&quot ;mg/dL" xsi:type="PQ" value="13" /> < referenceRange> <observationRange> <text>7-20</ text> </observationRange> </referenceRange> </observation> </component> <component> <observationmoodCode="EVN" classCode="OBS"> <templateId root="2.16.840.1.010820.10.20.22.4.2" /> <id nullFlavor="NA" /> <code codeSystem=" local" code="CREAT" displayName="CREATININE" /> <statusCode code="completed" /> < effectiveTime value="507144913879" /> <value unit=&quot ;mg/dL" xsi:type="PQ" value="1.1" /> < interpretationCode codeSystem="local" code="*" /> <referenceRange> <observationRange> < text>0.6-1.0</text> </observationRange> </ referenceRange> </observation> </component> < component> <observation moodCode="EVN" classCode=" OBS"> <templateId root="2.16.840.1.048026.10.20.22.4.2& quot; /> <id nullFlavor="NA" /> <code codeSystem="local" code="NA" displayName="SODIUM" /> <statusCode code="completed" /> < effectiveTime value="628834031441" /> <value unit=&quot ;mmol/L" xsi:type="PQ" value="142" /> < referenceRange> <observationRange> <text>135-148 </text> </observationRange> </referenceRange& gt; </observation> </component> <component> <observation moodCode="EVN" classCode="OBS"> &lt ;templateId root="2.16.840.1.911421.10.20.22.4.2" /> < id nullFlavor="NA" /> <code codeSystem="local&quot ; code="CL" displayName="CHLORIDE" /> < statusCode code="completed" /> <effectiveTime value=& quot;905223022451" /> <value unit="mmol/L" xsi: type="PQ" value="107" /> <referenceRange> <observationRange> <text>98-110</text&gt ; </observationRange> </referenceRange> & lt;/observation> </component> <component> < observation moodCode="EVN" classCode="OBS"> < templateId root="2.16.840.1.445828.10.20.22.4.2" /> < id nullFlavor="NA" /> <code codeSystem="local" code="AST" displayName="AST/SGOT" /> < statusCode code="completed" /> <effectiveTime value=& quot;149926101959" /> <value unit="Units/L" xsi: type="PQ" value="14" /> <referenceRange> <observationRange> <text>10-37</text> </observationRange> </referenceRange> </ observation> </component> <component> < observation moodCode="EVN" classCode="OBS"> < templateId root="[id number]" /> < id nullFlavor="NA" /> <code codeSystem="local&quot ; code="ALT" displayName="ALT/SGPT" /> < statusCode code="completed" /> <effectiveTime value=& quot;[id number]" /> <value unit="Units/L" xsi:type ="PQ" value="29" /> <referenceRange> & lt;observationRange> <text>< 66</text> </observationRange> </referenceRange> </ observation> </component> <component> < observation moodCode="EVN" classCode="OBS"> < templateId root="2.16.840.1.787373.10.20.22.4.2" /> < id nullFlavor="NA" /> <code codeSystem="local&quot ; code="CO2" displayName="CARBON DIOXIDE" /> &lt ;statusCode code="completed" /> <effectiveTime value=& quot;443496244297" /> <value unit="mmol/L" xsi: type="PQ" value="28" /> <referenceRange> <observationRange> <text>21-32</text> </observationRange> </referenceRange> </ observation> </component> <component> < observation moodCode="EVN" classCode="OBS"> < templateId root="2.16.840.1.233951.10.20.22.4.2" /> < id nullFlavor="NA" /> <code codeSystem="local&quot ; code="TP" displayName="TOTAL PROTEIN" /> < statusCode code="completed" /> <effectiveTime value=& quot;338680470030" /> <value unit="gm/dL" xsi:type ="PQ" value="6.4" /> <referenceRange> &lt ;observationRange> <text>6.4-8.2</text> & lt;/observationRange> </referenceRange> </ observation> </component> <component> < observation moodCode="EVN" classCode="OBS"> < templateId root="2.16.840.1.077931.10.20.22.4.2" /> < id nullFlavor="NA" /> <code codeSystem="local&quot ; code="ALB" displayName="ALBUMIN" /> < statusCode code="completed" /> <effectiveTime value=& quot;964017325243" /> <value unit="gm/dL" xsi:type ="PQ" value="3.2" /> <interpretationCode codeSystem="local" code="*" /> < referenceRange> <observationRange> <text>3.4-5.0</ text> </observationRange> </referenceRange> </observation> </component> <component> <observationmoodCode="EVN" classCode="OBS"> <templateId root="2.16.840.1.368919.10..22.4.2" /> <id nullFlavor="NA" /> <code codeSystem=" local" code="BILTOT" displayName="BILI TOTAL" /> <statusCode code="completed" /> < effectiveTime value="420606281737" /> <value unit=&quot ;mg/dL" xsi:type="PQ" value="0.3" /> < referenceRange> <observationRange> <text> 0.0-1.0</text> </observationRange> </ referenceRange> </observation> </component> < component> <observation moodCode="EVN" classCode=" OBS"> <templateId root="2.16.840.1.877181.10.20.22.4.2& quot; /> <id nullFlavor="NA" /> <code codeSystem="local" code="ALKP" displayName="ALKALINE PHOSPHATASE TOTAL" /> <statusCode code="completed&quot ; /> <effectiveTime value="092437823913"/> <value unit="IU/L" xsi:type="PQ" value="83" /& gt; <referenceRange> <observationRange> <text>45-117</text> </observationRange> </referenceRange> </observation> </component> & lt;/organizer> </entry> <entry> <organizer moodCode=&quot ;EVN" classCode="BATTERY"> <templateId root=" 2.16.840.1.336352.10.20.22.4.1" /> <id nullFlavor="NA&quot ; /> <code codeSystem="local" code="TSH" displayName="THYROID STIM HORMONE (TSH)" /> <statusCode code="completed" /> <component> <observation moodCode="EVN" classCode="OBS"> <templateId root="2.16.840.1.726663.10.20.22.4.2" /> <id nullFlavor ="NA" /> <code codeSystem="local" code=" TSH" displayName="THYROID STIM HORMONE (TSH)" /> < statusCode code="completed" /> <effectiveTime value=& quot;010123286660" /> <value unit="uIU/mL" xsi: type="PQ" value="0.69" /> <referenceRange&gt ; <observationRange> <text>0.34-4.82</ text> </observationRange> </referenceRange> & lt;/observation> </component> </organizer> </entry&gt ; <entry> <organizer moodCode="EVN" classCode="BATTERY& quot;> <templateId root="2.16.840.1.852243.10.20.22.4.1" /& gt; <id nullFlavor="NA" /> <code codeSystem=" local" code="CRP" displayName="C REACTIVE PROTEIN" /&gt ; <statusCode code="completed" /> <component> <observationmoodCode="EVN" classCode="OBS"> <templateId root="2.16.840.1.476249.10.20.22.4.2" /> <id nullFlavor="NA" /> <code codeSystem=" local" code="CRP" displayName="C REACTIVE PROTEIN" /&gt ; <statusCode code="completed" /> <effectiveTime value="673704131045" /> <value unit="mg/L" xsi:type="PQ" value="6.3" /> <referenceRange& gt; <observationRange> <text>< 8.0&lt ;/text> </observationRange> </referenceRange&gt ; </observation> </component> </organizer> </entry > <entry> <organizer moodCode="EVN" classCode=" BATTERY"> <templateId root="2.16.840.1.031241.10.20.22.4.1& quot; /> <id nullFlavor="NA" /> <code codeSystem ="local" code="CBCD" displayName="CBC W/DIFF" /&gt ;<statusCode code="completed" /> <component> & lt;observation moodCode="EVN" classCode="OBS"> & lt;templateId root="2.16.840.1.280633.10.20.22.4.2" /> &lt ;id nullFlavor="NA" /> <code codeSystem="local& quot; code="EO#" displayName="EOSINOPHIL #" /> & lt;statusCode code="completed" /> <effectiveTime value= "527391317709" /> <value unit="k/cumm" xsi: type="PQ" value="0.6" /> <interpretationCode codeSystem="local" code="*" /> < referenceRange> <observationRange> <text> 0.1-0.5</text> </observationRange> </referenceRange& gt; </observation> </component> <component> <observation moodCode="EVN" classCode="OBS"> <templateId root="2.16.840.1.120357.10.20.22.4.2" /> &lt ;id nullFlavor="NA" /> <code codeSystem="local& quot; code="EO%" displayName="EOSINOPHIL %" /> <statusCode code="completed" /> < effectiveTime value="244600342799" /> <value unit=&quot ;%" xsi:type="PQ" value="5" /> < interpretationCode codeSystem="local" code="*" /> <referenceRange> <observationRange> <text& gt;2-4</text> </observationRange> </ referenceRange> </observation> </component>< component> <observation moodCode="EVN" classCode=" OBS"> <templateId root="2.16.840.1.173881.10.20.22.4.2" /> <id nullFlavor="NA" /> <code codeSystem="local" code="GR#" displayName="GRANULOCYTE #" /> <statusCode code="completed" /> <effectiveTime value="236123226119" /> <value unit=& quot;k/cumm" xsi:type="PQ" value="7.5" /> & lt;referenceRange> <observationRange> <text& gt;2.0-9.0</text> </observationRange> </ referenceRange> </observation> </component> < component> <observation moodCode="EVN" classCode=" OBS"> <templateId root="2.16.840.1.300062.10.20.22.4.2& quot; /> <id nullFlavor="NA" /> <code codeSystem="local" code="GR%" displayName=" GRANULOCYTE %" /> <statusCode code="completed& quot; /> <effectiveTime value="313479796303" /> <value unit="%" xsi:type="PQ" value=" 61" /> <referenceRange> <observationRange& gt; <text>50-75</text> </observationRange > </referenceRange> </observation> </component&gt ; <component> <observation moodCode="EVN" classCode="OBS"> <templateId root=" 2.16.840.1.483555.10.20.22.4.2" /> <id nullFlavor="NA& quot; /> <code codeSystem="local" code="LY#" displayName="LYMPHOCYTE #" /> <statusCode code=" completed" /> <effectiveTime value="069201607007" /> <value unit="k/cumm" xsi:type="PQ" value=& quot;3.3" /> <referenceRange> < observationRange> <text>1.0-4.0</text> </ observationRange> </referenceRange> </observation&gt ; </component> <component> <observation moodCode ="EVN" classCode="OBS"> <templateId root=& quot;2.16.840.1.423659.10.20.22.4.2" /> <id nullFlavor=&quot ;NA" /> <code codeSystem="local" code="LY&amp ;#37;" displayName="LYMPHOCYTE %" /> < statusCode code="completed" /> <effectiveTime value=& quot;530057970502" /> <value unit="%" xsi: type="PQ" value="26" /> <referenceRange> <observationRange> <text>20-30</text> </observationRange> </referenceRange> </ observation> </component> <component> < observation moodCode="EVN" classCode="OBS"> < templateId root="2.16.840.1.193230.10.20.22.4.2" /> < id nullFlavor="NA" /> <codecodeSystem="local&quot ; code="MCH" displayName="MEAN CELL HGB" /> < statusCode code="completed" /> <effectiveTime value=& quot;643202161525" /> <value unit="pg" xsi:type=& quot;PQ" value="28.3" /> <referenceRange> <observationRange> <text>27.0-33.0</text> </observationRange> </referenceRange> & lt;/observation> </component> <component> < observation moodCode="EVN" classCode="OBS"> < templateId root="2.16.840.1.624160.10.20.22.4.2" /> < id nullFlavor="NA" /> <code codeSystem="local&quot ; code="MCHC" displayName="MEAN CELL HGB CONCENTRATION" /&gt ; <statusCode code="completed" /> < effectiveTime value="691450325274" /> <value unit=&quot ;g/dL" xsi:type="PQ" value="33.2" /> < referenceRange> <observationRange> <text> 32.0-37.0</text> </observationRange> </ referenceRange> </observation> </component> < component> <observation moodCode="EVN" classCode=" OBS"> <templateId root="2.16.840.1.262887.10..22.4.2& quot; /> <id nullFlavor="NA" /> <code codeSystem="local" code="MCV" displayName="MEAN CELL VOLUME" /> <statusCode code="completed" /> <effectiveTime value="526718350267" /> <value unit ="fl" xsi:type="PQ" value="85.1" /> & lt;referenceRange> <observationRange> <text& gt;80.0-100.0</text> </observationRange> </ referenceRange> </observation> </component> < component> <observation moodCode="EVN" classCode=" OBS"> <templateId root="2.16.840.1.803166.10.20.22.4.2& quot; /> <id nullFlavor="NA" /> <code codeSystem="local" code="MO#" displayName="MONOCYTE #& quot; /> <statusCode code="completed" /> & lt;effectiveTime value="224607957931" /> <value unit=& quot;k/cumm" xsi:type="PQ" value="0.9" /> & lt;referenceRange> <observationRange> <text& gt;0.1-1.0</text> </observationRange> </ referenceRange> </observation> </component> < component> <observation moodCode="EVN" classCode=" OBS"> <templateId root="2.16.840.1.149223.10.20.22.4.2& quot; /> <id nullFlavor="NA" /> <code codeSystem="local" code="MO%" displayName=" MONOCYTE %" /> <statusCode code="completed&quot ; /> <effectiveTime value="706255945902" /> <value unit="%" xsi:type="PQ" value="7& quot; /> <interpretationCodecodeSystem="local" code=& quot;*" /> <referenceRange> < observationRange> <text>4-6</text> </ observationRange> </referenceRange> </observation> </component> <component> <observation moodCode= "EVN" classCode="OBS"> <templateId root=&quot ;2.16.840.1.483742.10..22.4.2" /> <id nullFlavor="NA& quot; /> <code codeSystem="local" code="RBC" displayName="RED BLOOD CELL" /> <statusCode code=" completed" /> <effectiveTime value="750598221210" /> <value unit="m/cumm" xsi:type="PQ" value=& quot;4.56" /> <referenceRange> < observationRange> <text>4.00-6.00</text> </observationRange> </referenceRange> </ observation> </component> <component><observation moodCode="EVN" classCode="OBS"> <templateId root="2.16.840.1.051890.10.20.22.4.2" /> <id nullFlavor ="NA" /> <code codeSystem="local" code="RDW& quot; displayName="RED CELL DISTRIBUTION WIDTH" /> < statusCode code="completed" /> <effectiveTime value=& quot;350594450988" /> <value unit="%" xsi: type="PQ" value="13.0" /> <referenceRange&gt ; <observationRange> <text>11.0-15.6</ text> </observationRange> </referenceRange> </observation> </component> <component> &lt ;observation moodCode="EVN" classCode="OBS"> &lt ;templateId root="2.16.840.1.626593.10.20.22.4.2" /> < id nullFlavor="NA" /> <code codeSystem="local" code="WBC" displayName="WHITE BLOOD CELL" /> &lt ;statusCode code="completed" /> <effectiveTime value=& quot;663144539358" /> <value unit="k/cumm" xsi: type="PQ" value="12.4" /> < interpretationCode codeSystem="local" code="*" /> <referenceRange> <observationRange> < text>5.0-10.0</text> </observationRange> < /referenceRange> </observation> </component> < component> <observation moodCode="EVN" classCode=" OBS"> <templateId root="2.16.840.1.282544.10.20.22.4.2& quot; /> <id nullFlavor="NA" /> <code codeSystem="local" code="HGBT" displayName="HEMOGLOBIN& quot; /> <statusCode code="completed" /> & lt;effectiveTime value="191929767774" /> <value unit=& quot;gm/dL" xsi:type="PQ" value="12.9" /> < referenceRange> <observationRange> <text> 12.0-16.0</text> </observationRange> </ referenceRange> </observation> </component> < component> <observation moodCode="EVN"classCode="OBS "> <templateId root="2.16.840.1.969241.10.20.22.4.2& quot; /> <id nullFlavor="NA" /> <code codeSystem="local" code="HCTT" displayName="HEMATOCRIT& quot; /> <statusCode code="completed" /> & lt;effectiveTime value="483805119110" /> <value unit=& quot;%" xsi:type="PQ" value="38.8" /> <referenceRange> <observationRange> < text>37.0-47.0</text> </observationRange> </ referenceRange> </observation> </component> < component> <observation moodCode="EVN" classCode=" OBS"> <templateId root="2.16.840.1.456300.10.20.22.4.2& quot; /> <id nullFlavor="NA" /> <code codeSystem="local" code="PLTT" displayName="PLATELET COUNT" /> <statusCode code="completed" /> <effectiveTime value="839196224764" /> <value unit="k/cumm" xsi:type="PQ" value="313" /> <referenceRange> <observationRange> &lt ;text>150-400</text> </observationRange> < /referenceRange> </observation> </component> </ organizer> </entry> <entry> <organizer moodCode="EVN " classCode="BATTERY"> <templateId root=" 2.16.840.1.116130.10.20.22.4.1" /> <id nullFlavor="NA&quot ; /> <code codeSystem="local" code="LACT" displayName="LACTIC ACID" /> <statusCode code=" completed" /> <component> <observation moodCode=& quot;EVN" classCode="OBS"> <templateId root=" 2.16.840.1.281553.10.20.22.4.2" /> <id nullFlavor="NA& quot; /> <code codeSystem="local" code="LACT&quot ; displayName="LACTIC ACID" /> <statusCode code=" completed" /> <effectiveTime value="299747041152" /&gt ; <value unit="mmol/L" xsi:type="PQ" value=&quot ;1.2" /> <referenceRange> <observationRange > <text>0.5-2.0</text> </ observationRange> </referenceRange> </observation&gt ; </component> </organizer> </entry> <entry> <organizer moodCode="EVN" classCode="BATTERY"> <templateId root="2.16.840.1.341700.10.20.22.4.1" /> < idnullFlavor="NA" /> <code codeSystem="local" code="METABC" displayName="METABOLIC PANEL, COMPREHN" /> <statusCode code="completed"/> <component> <observation moodCode="EVN" classCode="OBS"> <templateId root="2.16.840.1.346313.10.20.22.4.2" /> <id nullFlavor="NA" /> <code codeSystem=" local" code="K" displayName="POTASSIUM" /> <statusCode code="completed" /> <effectiveTime value=" 868180797148" /> <value unit="mmol/L" xsi:type=& quot;PQ" value="3.6" /> <referenceRange> <observationRange> <text>3.5-5.3</text> </observationRange> </referenceRange> </ observation> </component> <component> < observation moodCode="EVN" classCode="OBS"> < templateId root="2.16.840.1.401716.10.20.22.4.2" /> < id nullFlavor="NA" /> <code codeSystem="local&quot ; code="eGFR" displayName="EST GFR (MDRD)" /> & lt;statusCode code="completed" /> <effectiveTime value= "336178436929" /> <value unit="mL/min" xsi: type="PQ" value="58" /> <interpretationCode codeSystem="local" code="*" /> < referenceRange> <observationRange> <text> > 59</text> </observationRange> </ referenceRange> </observation> </component> < component> <observation moodCode="EVN" classCode=" OBS"> <templateId root="2.16.840.1.572678.10.20.22.4.2& quot; /> <id nullFlavor="NA" /> <code codeSystem="local" code="GAP" displayName="ANION GAP& quot; /> <statusCode code="completed" /> & lt;effectiveTime value="943147016694" /> <value unit=& quot;mmol/L" xsi:type="PQ" value="7" /> < referenceRange> <observationRange> <text> 5-15</text> </observationRange> </ referenceRange> </observation> </component> < component> <observation moodCode="EVN" classCode=" OBS"> <templateId root="2.16.840.1.349800.10.20.22.4.2& quot; /> <id nullFlavor="NA" /> <code codeSystem="local" code="eCrCl" displayName="EST CrCl ( CG)" /> <statusCode code="completed" /> <effectiveTime value="338613009249" /> <value unit="mL/min" xsi:type="PQ" value="> 60" /& gt; <referenceRange> <observationRange> <text>> 59</text> </observationRange> </referenceRange> </observation> </ component> <component> <observation moodCode="EVN& quot; classCode="OBS"> <templateId root=" 2.16.840.1.355921.10.20.22.4.2" /> <id nullFlavor="NA& quot; /> <code codeSystem="local" code="GLU" displayName="GLUCOSE" /> <statusCode code=" completed" /> <effectiveTime value="291272755402" /> <value unit="mg/dL" xsi:type="PQ" value=& quot;130" /> <interpretationCode codeSystem="local&quot ; code="*" /> <referenceRange> < observationRange> <text>70-99</text> < /observationRange> </referenceRange> </observation& gt; </component> <component> <observation moodCode="EVN" classCode="OBS"> <templateId root="2.16.840.1.165307.10.20.22.4.2" /> <id nullFlavor ="NA" /> <code codeSystem="local" code=" CA" displayName="CALCIUM" /> <statusCode code=& quot;completed" /> <effectiveTime value="161481927735& quot; /> <value unit="mg/dL" xsi:type="PQ" value="7.6" /> <interpretationCode codeSystem=" local" code="*" /> <referenceRange> <observationRange> <text>8.5-10.1</text> </observationRange> </referenceRange> </ observation> </component> <component> < observation moodCode="EVN" classCode="OBS"> < templateId root="2.16.840.1.728865.10.20.22.4.2" /> < id nullFlavor="NA" /> <code codeSystem="local&quot ; code="BUN" displayName="BLOOD UREA NITROGEN" /> <statusCode code="completed" /> <effectiveTime value="902741160525" /> <value unit="mg/dL" xsi:type="PQ" value="13" /> <referenceRange& gt; <observationRange> <text>7-20</text& gt; </observationRange> </referenceRange> </observation> </component> <component> &lt ;observation moodCode="EVN" classCode="OBS"> &lt ;templateId root="2.16.840.1.649155.10.20.22.4.2" /> < id nullFlavor="NA" /> <code codeSystem="local&quot ; code="CREAT" displayName="CREATININE" /> < statusCode code="completed" /> <effectiveTime value=& quot;254278810199" /> <value unit="mg/dL" xsi:type ="PQ" value="1.1" /> <interpretationCode codeSystem="local" code="*" /> < referenceRange> <observationRange> <text>0.6- 1.0</text> </observationRange> </ referenceRange> </observation> </component> < component> <observation moodCode="EVN" classCode=" OBS"> <templateId root="2.16.840.1.448696.10.20.22.4.2& quot; /> <id nullFlavor="NA" /> <code codeSystem="local" code="NA" displayName="SODIUM" /> <statusCode code="completed" /> < effectiveTime value="168766369239" /> <value unit=&quot ;mmol/L" xsi:type="PQ" value="142" /> < referenceRange> <observationRange> <text> 135-148</text> </observationRange> </ referenceRange> </observation> </component> < component> <observation moodCode="EVN" classCode="OBS& quot;> <templateId root="2.16.840.1.930084.10.20.22.4.2&quot ; /> <id nullFlavor="NA" /> <code codeSystem="local" code="CL" displayName="CHLORIDE&quot ; /> <statusCode code="completed" /> < effectiveTime value="008288846587" /> <value unit=&quot ;mmol/L" xsi:type="PQ" value="107" /> < referenceRange> <observationRange> <text> 98-110</text> </observationRange> </ referenceRange> </observation> </component> < component> <observation moodCode="EVN" classCode=" OBS"> <templateId root="2.16.840.1.248119.10.20.22.4.2& quot; /> <id nullFlavor="NA" /> <code codeSystem="local" code="AST" displayName="AST/SGOT& quot; /> <statusCode code="completed" /> & lt;effectiveTime value="462476117917" /> <value unit=& quot;Units/L" xsi:type="PQ" value="14" /> < referenceRange> <observationRange> <text> 10-37</text> </observationRange> </ referenceRange> </observation> </component> < component> <observation moodCode="EVN" classCode=" OBS"> <templateId root="2.16.840.1.766292.10.20.22.4.2& quot; /> <id nullFlavor="NA" /> <code codeSystem="local" code="ALT" displayName="ALT/SGPT& quot; /> <statusCode code="completed" /> & lt;effectiveTime value="575602432281" /> <value unit=& quot;Units/L" xsi:type="PQ" value="29" /> & lt;referenceRange> <observationRange> <text& gt;< 66</text> </observationRange> </ referenceRange> </observation> </component> < component> <observation moodCode="EVN" classCode=" OBS"> <templateId root="2.16.840.1.711634.10.20.22.4.2& quot; /> <id nullFlavor="NA" /> <code codeSystem="local" code="CO2" displayName="CARBON DIOXIDE" /> <statusCode code="completed" /> <effectiveTime value="680450719369" /> < value unit="mmol/L" xsi:type="PQ" value="28" /&gt ; <referenceRange> <observationRange> <text >21-32</text> </observationRange> </ referenceRange> </observation> </component> < component> <observation moodCode="EVN" classCode=" OBS"> <templateId root="2.16.840.1.628487.10.20.22.4.2& quot; /> <id nullFlavor="NA" /> <code codeSystem="local" code="TP" displayName="TOTAL PROTEIN " /> <statusCode code="completed" /> & lt;effectiveTime value="777643509007" /> <value unit=& quot;gm/dL" xsi:type="PQ" value="6.4" /> & lt;referenceRange> <observationRange> <text& gt;6.4-8.2</text> </observationRange> </ referenceRange> </observation> </component> < component> <observation moodCode="EVN" classCode="OBS" > <templateId root="2.16.840.1.827268.10.20.22.4.2" /& gt; <id nullFlavor="NA" /> <code codeSystem=& quot;local" code="ALB" displayName="ALBUMIN" /> <statusCode code="completed" /> < effectiveTime value="419652579495" /> <value unit=&quot ;gm/dL" xsi:type="PQ" value="3.2" /> < interpretationCode codeSystem="local" code="*" /> <referenceRange> <observationRange> <text >3.4-5.0</text> </observationRange> </ referenceRange> </observation> </component> < component> <observation moodCode="EVN" classCode=" OBS"> <templateId root="2.16.840.1.185381.10..22.4.2& quot; /> <id nullFlavor="NA" /> <code codeSystem="local" code="BILTOT" displayName="BILI TOTAL" /> <statusCode code="completed" /> <effectiveTime value="758292458083" /> <value unit="mg/dL" xsi:type="PQ" value="0.3" /> <referenceRange> <observationRange> &lt ;text>0.0-1.0</text> </observationRange> </ referenceRange> </observation> </component> < component> <observation moodCode="EVN" classCode=" OBS"> <templateId root="2.16.840.1.188526.10..22.4.2& quot; /> <id nullFlavor="NA" /> <code codeSystem= "local" code="ALKP" displayName="ALKALINE PHOSPHATASE TOTAL" /> <statusCode code="completed" /> <effectiveTime value="330084461227" /> <value unit="IU/L" xsi:type="PQ" value="83" /> <referenceRange> <observationRange> < text>45-117</text> </observationRange> </ referenceRange> </observation> </component> </ organizer> </entry> <entry> <organizer moodCode="EVN " classCode="BATTERY"> <templateId root=" 2.16.840.1.305358.10.20.22.4.1" /> <id nullFlavor="NA&quot ; /> <code codeSystem="local" code="TSH" displayName="THYROID STIM HORMONE (TSH)" /> <statusCode code="completed" /> <component> <observation moodCode="EVN" classCode="OBS"> <templateId root="2.16.840.1.586096.10.20.22.4.2" /> <id nullFlavor ="NA" /> <code codeSystem="local" code=" TSH" displayName="THYROID STIM HORMONE (TSH)" /> < statusCode code="completed" /> <effectiveTime value=& quot;577834804007" /> <value unit="uIU/mL" xsi:type=" PQ" value="0.69" /> <referenceRange> <observationRange> <text>0.34-4.82</text> </observationRange> </referenceRange> </ observation> </component> </organizer> </entry> & lt;entry> <organizer moodCode="EVN" classCode="BATTERY& quot;> <templateId root="2.16.840.1.759942.10.20.22.4.1" /& gt; <id nullFlavor="NA" /> <code codeSystem=" local" code="CRP" displayName="C REACTIVE PROTEIN" /&gt ; <statusCodecode="completed" /> <component> <observation moodCode="EVN" classCode="OBS"> <templateId root="2.16.840.1.125659.10.20.22.4.2" /> <id nullFlavor="NA" /> <code codeSystem=" local" code="CRP" displayName="C REACTIVE PROTEIN" /&gt ; <statusCode code="completed" /> < effectiveTime value="550577331551" /> <value unit="mg/L& quot; xsi:type="PQ" value="6.3" /> < referenceRange> <observationRange> <text> < 8.0</text> </observationRange> </ referenceRange> </observation> </component> </ organizer> </entry> <entry> <organizer moodCode="EVN " classCode="BATTERY"> <templateId root=" 2.16.840.1.360653.10.20.22.4.1" /> <id nullFlavor="NA&quot ; /> <code codeSystem="local" code="BC" displayName="BLOOD CULTURE" /> <statusCode code=" completed" /> <component> <observation moodCode=& quot;EVN" classCode="OBS"> <templateId root=" [id number]" /> <id nullFlavor="NA& quot; /> <code codeSystem="local" code="MB" displayName="Microbiology" /> <statusCode code=" completed" /> <effectiveTime value="[id number]" /> <value xsi:type="ST" value="<pre><b&gt ;BLOOD CULTURE</b> See BelowIs this a Possible Sepsis/Sepsis patient? NoIs this the first BLOOD CULTURE for this hospital visit? YesBLOOD CULTURE(F) Juan Date/Time: 12/02/2016 00:50 Raúl Date/Time: 12/07/2016 11:05SOURCE: BLOODSPEC DESC: [id number] [facility] [place] [address]</pre& gt;" /> <referenceRange> <observationRange& gt; <text /> </observationRange> & lt;/referenceRange> </observation> </component> & lt;/organizer> </entry> <entry> <organizer moodCode=&quot ;EVN" classCode="BATTERY"> <templateId root=" 2.16.840.1.908055.10.20.22.4.1" /> <id nullFlavor="NA&quot ; /> <code codeSystem="local" code="BC" displayName="BLOOD CULTURE" /> <statusCode code=" completed" /> <component> <observation moodCode="EVN& quot; classCode="OBS"> <templateId root=" 2.16.840.1.646447.10..22.4.2" /> <id nullFlavor="NA& quot; /> <code codeSystem="local" code="MB" displayName="Microbiology" /> <statusCode code=" completed" /> <effectiveTime value="[id number]" /> <value xsi:type="ST" value="<pre><b&gt ;BLOOD CULTURE</b> See BelowIs this a Possible Sepsis/Sepsis patient? NoIs this the first BLOOD CULTURE for this hospital visit? YesBLOOD CULTURE(F) Juan Date/Time: 12/02/2016 00:50 Raúl Date/Time: 12/07/2016 11:05SOURCE: BLOODSPEC DESC: [id number] [facility] [facility] [place] [address]</pre>& quot; /> <referenceRange> <observationRange> <text /> </observationRange> </ referenceRange> </observation> </component> </ organizer> </entry> <entry> <organizer moodCode="EVN " classCode="BATTERY"> <templateId root=" 2.16.840.1.518677.10.20.22.4.1" /> <id nullFlavor="NA&quot ; /> <code codeSystem="local"code="BC" displayName="BLOOD CULTURE" /> <statusCode code=" completed" /> <component> <observation moodCode=& quot;EVN" classCode="OBS"> <templateId root=" 2.16.840.1.836642.10.20.22.4.2" /> <id nullFlavor="NA" /& gt; <code codeSystem="local" code="MB" displayName="Microbiology" /> <statusCode code=" completed"/> <effectiveTime value="[id number]" / > <value xsi:type="ST" value="<pre><b> BLOOD CULTURE</b> See BelowIs this a Possible Sepsis/Sepsis patient? NoIs this the first BLOOD CULTURE for this hospital visit? YesBLOOD CULTURE(F) Juan Date/Time: 12/02/2016 01:32 Raúl Date/Time : 12/07/2016 11:47SOURCE: BLOODSPEC DESC: [id number] [facility] [place] [address]</pre>" /&gt ; <referenceRange> <observationRange> <text /> </observationRange> </ referenceRange> </observation> </component> </ organizer> </entry> <entry> <organizer moodCode="EVN " classCode="BATTERY"> <templateId root=" 2.16.840.1.128604.10.20.22.4.1" /> <id nullFlavor="NA&quot ; /> <code codeSystem="local" code="BC" displayName="BLOOD CULTURE" /> <statusCode code=" completed" /> <component> <observation moodCode=& quot;EVN" classCode="OBS"> <templateId root=" 2.16.840.1.067691.10.20.22.4.2" /> <id nullFlavor="NA& quot; /> <code codeSystem="local" code="MB" displayName="Microbiology" /> <statusCode code="completed " /> <effectiveTime value="027876507231" /> <value xsi:type="ST" value="<pre><b>BLOOD CULTURE</b> See BelowIs this a Possible Sepsis/Sepsis patient? NoIs this the [facility]? YesBLOOD CULTURE(F) Juan Date/Time: 12/02/2016 01:32 Raúl Date/Time: 12/07/2016 11:47SOURCE: BLOODSPEC DESC: [id number] [facility] [place] [address]</pre>" /> & lt;referenceRange> <observationRange> <text /> </observationRange> </referenceRange> </observation> </component> </organizer> </ entry> <entry> <organizer moodCode="EVN" classCode=& quot;BATTERY"> <templateId root=" 2.16.840.1.958897.10.20.22.4.1" /> <id nullFlavor="NA&quot ; /> <code codeSystem="local" code="UA" displayName="URINALYSIS, ROUTINE" /> <statusCode code=&quot ;completed" /> <component> <observation moodCode=& quot;EVN" classCode="OBS"> <templateId root=" 2.16.840.1.457205.10.20.22.4.2" /> <id nullFlavor="NA& quot; /> <code codeSystem="local" code="LEUESU& quot; displayName="UA LEUKOCYTE ESTERASE DIPSTICK" /> < statusCode code="completed" /> <effectiveTime value=& quot;319171061096" /> <value unit="" xsi:type=& quot;PQ" value="NEGATIVE" /> <referenceRange> <observationRange> <text>NEGATIVE</text& gt; </observationRange> </referenceRange> </ observation> </component> <component> < observation moodCode="EVN" classCode="OBS"> < templateId root="2.16.840.1.036788.10.20.22.4.2" /><id nullFlavor="NA" /> <code codeSystem="local" code="NITRIU" displayName="UA NITRITE DIPSTICK" /> <statusCode code="completed" /> <effectiveTime value="588381292454" /> <value unit="" xsi: type="PQ" value="NEGATIVE" /> <referenceRange > <observationRange> <text>NEGATIVE</ text> </observationRange> </referenceRange> </observation> </component> <component> <observation moodCode="EVN" classCode="OBS"> <templateId root="2.16.840.1.618279.10.20.22.4.2" /> <id nullFlavor="NA" /> <code codeSystem=" local" code="PROTEIU" displayName="UA PROTEIN DIPSTICK&quot ; /> <statusCode code="completed" /> < effectiveTime value="931713452947" /> <value unit=&quot ;" xsi:type="PQ" value="NEGATIVE" /> < referenceRange> <observationRange> <text> NEGATIVE</text> </observationRange> </ referenceRange> </observation> </component> < component> <observation moodCode="EVN" classCode=" OBS"> <templateId root="2.16.840.1.751622.10.20.22.4.2& quot; /> <id nullFlavor="NA" /> <code codeSystem="local" code="DGLUU" displayName="UA GLUCOSE DIPSTICK" /> <statusCode code="completed" /> <effectiveTime value="511807736203" /> &lt ;value unit="" xsi:type="PQ" value="NEGATIVE" /&gt ; <referenceRange> <observationRange> <text>NEGATIVE</text> </observationRange> </referenceRange> </observation> </component&gt ; <component> <observation moodCode="EVN" classCode="OBS"> <templateId root=" 2.16.840.1.050447.10.20.22.4.2" /> <id nullFlavor="NA& quot; /> <code codeSystem="local" code="KETONU& quot; displayName="UA KETONE DIPSTICK" /> <statusCode code="completed" /> <effectiveTime value=" 455744735387" /> <value unit="" xsi:type="PQ& quot; value="NEGATIVE" /> <referenceRange> <observationRange> <text>NEGATIVE</text> </observationRange> </referenceRange> </ observation> </component> <component> < observation moodCode="EVN" classCode="OBS"> < templateId root="2.16.840.1.250073.10.20.22.4.2" /> < id nullFlavor="NA"/> <code codeSystem="local&quot ; code="UROBILU" displayName="UA UROBILINOGEN DIPSTICK" /&gt ; <statusCode code="completed" /> < effectiveTime value="127752154759" /> <value unit=&quot ;" xsi:type="PQ" value="NORMAL" /> < referenceRange> <observationRange> <text> NORMAL</text> </observationRange></referenceRange> </observation> </component> <component> <observation moodCode="EVN" classCode="OBS"> <templateId root="2.16.840.1.948433.10.20.22.4.2" /> & lt;id nullFlavor="NA" /> <code codeSystem="local& quot; code="BILU" displayName="UA BILIRUBIN DIPSTICK" /> <statusCode code="completed" /> < effectiveTime value="564536712441" /> <value unit=&quot ;" xsi:type="PQ"value="NEGATIVE" /> < referenceRange> <observationRange> <text> NEGATIVE</text> </observationRange> </ referenceRange> </observation> </component> < component> <observation moodCode="EVN" classCode=" OBS"> <templateId root="2.16.840.1.341325.10.20.22.4.2& quot; /> <id nullFlavor="NA" /> <code codeSystem= "local" code="STANISLAW" displayName="UA BLOOD DIPSTICK&quot ; /> <statusCode code="completed" /> < effectiveTime value="351783683972" /> <value unit=&quot ;" xsi:type="PQ" value="NEGATIVE" /> < referenceRange> <observationRange><text>NEGATIVE</ text> </observationRange> </referenceRange> </observation> </component> <component> <observationmoodCode="EVN" classCode="OBS"> <templateId root="2.16.840.1.527641.10.20.22.4.2" /> <id nullFlavor="NA" /> <code codeSystem=" local" code="SPGRU" displayName="UA SPECIFIC GRAVITY" / > <statusCode code="completed" /> < effectiveTime value="309995743738" /> <value unit=&quot ;" xsi:type="PQ" value="1.014" /> < interpretationCode codeSystem="local" code="*" /> < referenceRange> <observationRange> <text> 1.015-1.025</text> </observationRange> </ referenceRange> </observation> </component> < component> <observation moodCode="EVN" classCode=" OBS"> <templateId root="2.16.840.1.197558.10.20.22.4.2& quot; /> <id nullFlavor="NA" /> <code codeSystem="local" code="NANETTE" displayName="UR PH" /> <statusCode code="completed" /> < effectiveTime value="153869423683" /> <value unit=&quot ;" xsi:type="PQ" value="7.0" /> < referenceRange> <observationRange> <text>5.0 -7.0</text> </observationRange> </ referenceRange> </observation> </component> </ organizer> </entry> <entry> <organizer moodCode="EVN " classCode="BATTERY"> <templateId root=" 2.16.840.1.574345.10.20.22.4.1" /> <id nullFlavor="NA&quot ; /> <code codeSystem="local" code="UA" displayName="URINALYSIS, ROUTINE" /> <statusCode code=&quot ;completed" /> <component> <observation moodCode=& quot;EVN" classCode="OBS"> <templateId root=" 2.16.840.1.568568.10.20.22.4.2" /> <id nullFlavor="NA& quot; /> <code codeSystem="local" code="LEUESU& quot; displayName="UA LEUKOCYTE ESTERASE DIPSTICK" /> < statusCode code="completed" /> <effectiveTime value=& quot;319818477201" /> <value unit="" xsi:type=& quot;PQ" value="NEGATIVE" /> <referenceRange> <observationRange> <text>NEGATIVE</text& gt; </observationRange> </referenceRange> </ observation> </component> <component> < observation moodCode="EVN" classCode="OBS"> < templateId root="2.16.840.1.045055.10.20.22.4.2" /> < id nullFlavor="NA" /> <code codeSystem="local&quot ; code="NITRIU" displayName="UA NITRITE DIPSTICK" /> <statusCode code="completed" /> < effectiveTime value="139880951236" /> <value unit=&quot ;" xsi:type="PQ" value="NEGATIVE" /> < referenceRange> <observationRange> <text> NEGATIVE</text> </observationRange> </ referenceRange> </observation> </component> < component> <observation moodCode="EVN" classCode=" OBS"> <templateId root="2.16.840.1.121853.10.20.22.4.2& quot; /> <id nullFlavor="NA" /> <code codeSystem="local" code="PROTEIU"displayName="UA PROTEIN DIPSTICK" /> <statusCode code="completed"/ > <effectiveTime value="385405459220" /> & lt;value unit="" xsi:type="PQ" value="NEGATIVE" /& gt; <referenceRange> <observationRange> & lt;text>NEGATIVE</text> </observationRange> & lt;/referenceRange> </observation> </component> < component> <observation moodCode="EVN" classCode=" OBS"> <templateId root="2.16.840.1.544305.10..22.4.2&quot ; /> <id nullFlavor="NA" /> <code codeSystem="local" code="DGLUU" displayName="UA GLUCOSE DIPSTICK" /> <statusCode code="completed" /> <effectiveTime value="599495153114" /> < value unit="" xsi:type="PQ" value="NEGATIVE" /&gt ; <referenceRange> <observationRange> <text>NEGATIVE</text> </observationRange> </referenceRange> </observation> </component&gt ; <component> <observation moodCode="EVN" classCode="OBS"> <templateId root=" 2.16.840.1.210524.10..22.4.2" /> <id nullFlavor="NA& quot; /> <code codeSystem="local" code="KETONU& quot; displayName="UA KETONE DIPSTICK" /> <statusCode code="completed" /> <effectiveTime value=" 445543874152" /> <value unit="" xsi:type="PQ& quot; value="NEGATIVE" /> <referenceRange> <observationRange> <text>NEGATIVE</text> </observationRange> </referenceRange> </ observation> </component> <component> < observation moodCode="EVN" classCode="OBS"> < templateId root="2.16.840.1.392594.10.20.22.4.2" /> < id nullFlavor="NA" /> <code codeSystem="local&quot ; code="UROBILU" displayName="UA UROBILINOGEN DIPSTICK" /&gt ; <statusCode code="completed" /> < effectiveTime value="536019842433" /> <value unit=&quot ;" xsi:type="PQ" value="NORMAL" /> < referenceRange> <observationRange> <text> NORMAL</text> </observationRange> </ referenceRange> </observation> </component> < component> <observation moodCode="EVN" classCode="OBS& quot;> <templateId root="2.16.840.1.923585.10..22.4.2&quot ; /> <id nullFlavor="NA" /> <code codeSystem="local" code="BILU" displayName="UA BILIRUBIN DIPSTICK" /> <statusCode code="completed&quot ; /> <effectiveTime value="732349941882" /> <value unit="" xsi:type="PQ" value="NEGATIVE&quot ; /> <referenceRange> <observationRange> <text>NEGATIVE</text> </observationRange> </referenceRange> </observation> </component& gt; <component> <observation moodCode="EVN" classCode="OBS"> <templateId root=" 2.16.840.1.134958.10..22.4.2" /> <id nullFlavor="NA& quot; /> <code codeSystem="local" code="STANISLAW" displayName="UA BLOOD DIPSTICK" /> <statusCode code=& quot;completed" /> <effectiveTime value="917984570204& quot; /> <value unit="" xsi:type="PQ" value=& quot;NEGATIVE" /> <referenceRange> < observationRange> <text>NEGATIVE</text> & lt;/observationRange> </referenceRange> </ observation> </component> <component> < observation moodCode="EVN" classCode="OBS"> < templateId root="2.16.840.1.550218.10.20.22.4.2" /> < id nullFlavor="NA" /> <code codeSystem="local&quot ; code="SPGRU" displayName="UA SPECIFIC GRAVITY" /> & lt;statusCode code="completed" /> <effectiveTime value= "796175425478" /> <value unit="" xsi:type=& quot;PQ" value="1.014"/> <interpretationCode codeSystem="local" code="*" /><referenceRange> <observationRange> <text>1.015-1.025</text& gt; </observationRange> </referenceRange> </observation> </component> <component> &lt ;observation moodCode="EVN" classCode="OBS"> &lt ;templateId root="2.16.840.1.781176.10.20.22.4.2"/> < id nullFlavor="NA" /> <code codeSystem="local&quot ;code="NANETTE" displayName="UR PH" /> < statusCode code="completed" /> <effectiveTime value=& quot;794730294640" /> <value unit="" xsi:type=& quot;PQ" value="7.0" /> <referenceRange> <observationRange> <text>5.0-7.0</text> </observationRange> </referenceRange> </ observation> </component> </organizer> </entry> < entry> <organizer moodCode="EVN" classCode="BATTERY&quot ;> <templateId root="2.16.840.1.198346.10.20.22.4.1" /> <id nullFlavor="NA" /> <code codeSystem="local& quot; code="GRAMCSF" displayName="GRAM STAIN" /> &lt ;statusCode code="completed" /> <component> < observation moodCode="EVN" classCode="OBS"> < templateId root="2.16.840.1.724895.10.20.22.4.2" /> < id nullFlavor="NA" /> <code codeSystem="local&quot ; code="MB" displayName="Microbiology" /> < statusCode code="completed" /> <effectiveTime value=" 990597614592" /> <value xsi:type="ST" value=" <pre><b>GRAM STAIN - CSF CULTURE - CSF MENIN ENCEPH PROFILE</b&gt ; See BelowGRAM STAIN(F) Juan Date/Time: 12/02/2016 15:20 Raúl Date/Time: 12/05/2016 10:41SOURCE: CEREBRAL SPINAL FLUIDSPEC DESC: GRAM STAINNO NEUTROPHILS SEENNOORGANISMS SEENSHE[place] [id number] [facility] Juan Date/Time: 12/02/2016 15:20 Raúl Date/Time: 2016 10:41SOURCE: CEREBRAL SPINAL FLUIDSPEC DESC: NG3NO GROWTH AFTER [address] [address]Uwu BelowKA[facility] MENIN ENCEPH PROFILE(F) Juan Date/Time: 12/02/2016 15:20 Raúl Date/Time: 12/05/2016 10:41SOURCE: CEREBRAL SPINAL FLUIDSPEC DESC: Identification restrictions for this profile:Only E. coli strains possessing the K1 capsular antigen willbe detected.Only Encapsulated strains of Neisseria meningitidis will bedetected.Unable to distinguish between latent and active infectionsof CMV and HHV-6.CYTOMEGALOVIRUSNOT DETECTEDCRYPTO NEOFORMANS/ GATTIINOT DETECTEDESCHERICHIA COLI K1NOT DETECTEDENTEROVIRUSNOT DETECTEDHAEMOPHILUS INFLUENZAENOT DETECTEDHUMAN HERPESVIRUS 6NOT DETECTEDHUMAN PARECHOVIRUSNOT DETECTEDHSV TYPE 1 VIRUSNOT DETECTEDHSV TYPE 2VIRUSNOT DETECTEDLISTERIA MONOCYTOGENESNOT DETECTEDNEISSERIA MENINGITIDISNOT DETECTEDSTREPTOCOCCUS AGALACTIAENOT DETECTEDSTREPTOCOCCUS PNEUMONIAENOT DETECTEDVARICELLA ZOSTER VIRUSNOT DETECTEDSANFORD HEALTH[address] [place] [address]</pre>" /> <referenceRange&gt ; <observationRange> <text /> </ observationRange> </referenceRange> </observation> </component> </organizer> </entry> <entry> & lt;organizer moodCode="EVN" classCode="BATTERY"> &lt ;templateId root="2.16.840.1.392485.10.20.22.4.1" /> <id nullFlavor="NA" /> <code codeSystem="local" code= "CLCTCSF" displayName="CSF CELL CT/DIFF" /> < statusCode code="completed" /> <component> < observation moodCode="EVN" classCode="OBS"> < templateId root="2.16.840.1.702683.10.20.22.4.2" /> < id nullFlavor="NA" /> <code codeSystem="local&quot ; code="APPCSF" displayName="CSF APPEARANCE" /> <statusCode code="completed" /> <effectiveTime value ="195561050653" /> <value unit="" xsi:type=& quot;PQ" value="CLEAR" /> <referenceRange> <observationRange> <text>CLEAR</text> </observationRange> </referenceRange> </ observation> </component> <component> < observation moodCode="EVN" classCode="OBS"> < templateId root="2.16.840.1.361908.10.20.22.4.2" /> < id nullFlavor="NA" /> <code codeSystem="local" code="COLCSF" displayName="CSF COLOR" /> < statusCode code="completed" /> <effectiveTime value=& quot;735056353743" /> <value unit="" xsi:type=& quot;PQ" value="COLORLESS" /> <referenceRange> <observationRange> <text>COLORLESS</text> </observationRange> </referenceRange> </ observation> </component> <component> < observation moodCode="EVN" classCode="OBS"> < templateId root="2.16.840.1.345693.10.20.22.4.2" /> < id nullFlavor="NA" /> <codecodeSystem="local&quot ; code="RBCCSF" displayName="CSF RBC" /> < statusCode code="completed" /> <effectiveTime value=& quot;534516700111" /> <value unit="#/cumm" xsi: type="PQ" value="4" /> <referenceRange> <observationRange> <text>0-5</text> </observationRange> </referenceRange> </ observation> </component> <component> < observation moodCode="EVN" classCode="OBS"> < templateId root="2.16.840.1.383818.10.20.22.4.2" /> < id nullFlavor="NA" /> <code codeSystem="local&quot ; code="TUBECSF" displayName="CSF TUBE #" /> &lt ;statusCode code="completed" /> <effectiveTime value=& quot;112864951249" /> <value unit="" xsi:type=& quot;PQ" value="#3" /> <referenceRange> <observationRange> <text /> </ observationRange> </referenceRange> </observation&gt ; </component> <component> <observation moodCode ="EVN" classCode="OBS"><templateId root=" 2.16.840.1.059279.10..22.4.2" /> <id nullFlavor="NA& quot; /> <code codeSystem="local" code="VOLCSF& quot; displayName="CSF VOLUME" /> <statusCode code=& quot;completed" /> <effectiveTime value="112886999493& quot; /> <value unit="mL" xsi:type="PQ" value ="10.0" /> <referenceRange> < observationRange> <text /> </ observationRange> </referenceRange> </observation&gt ; </component> <component> <observation moodCode ="EVN" classCode="OBS"> <templateId root=& quot;2.16.840.1.356723.10.20.22.4.2" /> <id nullFlavor=&quot ;NA" /> <code codeSystem="local" code="WBCCSF " displayName="CSF WBC" /> <statusCode code=" completed" /> <effectiveTime value="063269207032"/ > <value unit="#/cumm" xsi:type="PQ" value=& quot;3" /> <referenceRange> <observationRange& gt; <text>0-5</text> </observationRange& gt; </referenceRange> </observation> </ component> </organizer> </entry> <entry> < organizer moodCode="EVN" classCode="BATTERY"> < templateId root="2.16.840.1.666093.10.20.22.4.1" /> <id nullFlavor="NA" /> <code codeSystem="local" code= "PROTCSF" displayName="CSF TOTAL PROTEIN" /> < statusCode code="completed" /> <component> < observation moodCode="EVN" classCode="OBS"> < templateId root="2.16.840.1.214778.10.20.22.4.2" /> < id nullFlavor="NA" /> <code codeSystem="local&quot ; code="PROTEINCSF" displayName="CSF TOTAL PROTEIN" /> <statusCode code="completed" /> < effectiveTime value="110070023614"/> <value unit=" mg/dL" xsi:type="PQ" value="33" /> < referenceRange> <observationRange> <text> 15-45</text> </observationRange> </ referenceRange> </observation> </component> < component> <observation moodCode="EVN"classCode="OBS "> <templateId root="2.16.840.1.840755.10.20.22.4.2& quot; /> <id nullFlavor="NA" /> <code codeSystem="local" code="COLORCSFX" displayName="CSF COLOR-CENTRIFUGED" /> <statusCode code="completed&quot ; /> <effectiveTime value="482533945496" /> & lt;value unit="" xsi:type="PQ" value="COLORLESS" / > <referenceRange> <observationRange> & lt;text>COLORLESS</text> </observationRange> </referenceRange> </observation> </component> & lt;/organizer> </entry> <entry> <organizer moodCode=&quot ;EVN" classCode="BATTERY"> <templateId root=" 2.16.840.1.901259.10.20.22.4.1" /> <id nullFlavor="NA&quot ; /> <code codeSystem="local" code="GLUCSF" displayName="CSF GLUCOSE" /> <statusCode code=" completed" /> <component> <observation moodCode=& quot;EVN" classCode="OBS"> <templateId root=" 2.16.840.1.229004.10.20.22.4.2" /> <id nullFlavor="NA& quot; /> <code codeSystem="local" code="GLUCSF& quot; displayName="CSF GLUCOSE" /> <statusCode code=& quot;completed" /> <effectiveTime value="325646559597& quot; /> <value unit="mg/dL" xsi:type="PQ" value="63" /> <referenceRange> < observationRange> <text>40-70</text> </ observationRange> </referenceRange> </observation&gt ; </component> </organizer> </entry> <entry> <organizer moodCode="EVN" classCode="BATTERY"> <templateId root="2.16.840.1.615800.10.20.22.4.1" /> < id nullFlavor="NA" /> <code codeSystem="local" code="GRAMCSF" displayName="GRAM STAIN" /> < statusCode code="completed" /> <component> < observation moodCode="EVN" classCode="OBS"> < templateId root="2.16.840.1.415428.10.20.22.4.2" /> <id nullFlavor="NA" /> <code codeSystem="local" code="MB" displayName="Microbiology" /> < statusCode code="completed" /> <effectiveTime value=& quot;598344105535" /> <value xsi:type="ST" value=& quot;<pre><b>GRAM STAIN - CSF CULTURE - CSF MENIN ENCEPH PROFILE< /b> See BelowGRAM STAIN(F) Juan Date/Time: 12/02/2016 15:20 Raúl Date/Time: 12/05/2016 10:41SOURCE: CEREBRAL SPINAL FLUIDSPEC DESC: GRAM STAINNO NEUTROPHILS SEENNO ORGANISMS SEENW[facility] [id number] [place], [place] [address]Fuv BelowCSF CULTURE(F) Juan Date/Time : 12/02/2016 15:20 Raúl Date/Time: 12/05/2016 10: 41SOURCE: CEREBRAL SPINAL FLUIDSPEC DESC: NG3NO GROWTH AFTER [address] [place] [address] [place], [place] [address]Dgu BelowCSF MENIN ENCEPH PROFILE(F ) Juan Date/Time: 12/02/201615:20 Raúl Date/Time : 12/05/2016 10:41SOURCE: CEREBRAL SPINAL FLUIDSPEC DESC: Identification restrictions for this profile:Only E. coli strains possessing the K1 capsular antigen willbe detected.Only Encapsulated strains of Neisseria meningitidis will bedetected.Unableto distinguish between latent and active infectionsof CMV and HHV-6.CYTOMEGALOVIRUSNOT DETECTEDCRYPTO NEOFORMANS/GATTIINOT DETECTEDESCHERICHIA COLI K1NOT DETECTEDENTEROVIRUSNOT DETECTEDHAEMOPHILUS INFLUENZAENOT DETECTEDHUMAN HERPESVIRUS 6NOT DETECTEDHUMAN PARECHOVIRUSNOT DETECTEDHSV TYPE 1 VIRUSNOT DETECTEDHSV TYPE 2 VIRUSNOT DETECTEDLISTERIA MONOCYTOGENESNOT DETECTEDNEISSERIA MENINGITIDISNOT DETECTEDSTREPTOCOCCUS AGALACTIAENOT DETECTEDSTREPTOCOCCUS PNEUMONIAENOT DETECTEDVARICELLA ZOSTER VIRUSNOT DETECTED[address] [address]</pre&gt ;" /> <referenceRange> <observationRange&gt ; <text /> </observationRange> < /referenceRange> </observation> </component></ organizer> </entry> <entry> <organizer moodCode="EVN " classCode="BATTERY"> <templateId root=" 2.16.840.1.474697.10.20.22.4.1" /> <id nullFlavor="NA" /& gt; <code codeSystem="local" code="CLCTCSF" displayName="CSF CELL CT/DIFF" /> <statusCode code=" completed" /> <component> <observation moodCode=& quot;EVN" classCode="OBS"> <templateId root=" 2.16.840.1.635826.10..22.4.2" /> <id nullFlavor="NA& quot; /> <code codeSystem="local" code="APPCSF& quot; displayName="CSF APPEARANCE" /> <statusCode code= "completed" /> <effectiveTime value="458137408511& quot; /> <value unit="" xsi:type="PQ" value=& quot;CLEAR" /> <referenceRange><observationRange> <text>CLEAR</text> </observationRange&gt ; </referenceRange> </observation> </ component> <component> <observation moodCode="EVN& quot; classCode="OBS"> <templateId root=" 2.16.840.1.150967.10.20.22.4.2" /> <id nullFlavor="NA& quot; /> <code codeSystem="local" code="COLCSF& quot; displayName="CSF COLOR" /> <statusCode code=&quot ;completed" /> <effectiveTime value="[id number]&quot ; /> <value unit="" xsi:type="PQ" value=&quot ;COLORLESS" /> <referenceRange> < observationRange> <text>COLORLESS</text> </observationRange> </referenceRange> </ observation> </component> <component> < observation moodCode="EVN" classCode="OBS"> < templateId root="[id number]" /> < id nullFlavor="NA" /> <code codeSystem="local" code="RBCCSF" displayName="CSF RBC"/> < statusCode code="completed" /> <effectiveTime value=& quot;[id number]" /> <value unit="#/cumm" xsi: type="PQ" value="4" /> <referenceRange> <observationRange> <text>0-5</text> </observationRange> </referenceRange> </ observation> </component> <component> < observation moodCode="EVN" classCode="OBS"> < templateId root="2.16.840.1.465317.10..22.4.2" /> < id nullFlavor="NA" /> <code codeSystem="local&quot ; code="TUBECSF" displayName="CSF TUBE #" /> &lt ;statusCode code="completed" /> <effectiveTime value=& quot;671738860858" /> <value unit="" xsi:type=& quot;PQ" value="#3" /><referenceRange> < observationRange> <text /> </ observationRange> </referenceRange> </observation&gt ; </component> <component> <observation moodCode ="EVN" classCode="OBS"> <templateId root=& quot;2.16.840.1.251438...22.4.2" /> <idnullFlavor=" NA" /> <code codeSystem="local" code="VOLCSF& quot; displayName="CSF VOLUME" /> <statusCode code=& quot;completed" /> <effectiveTime value="540974955220& quot; /> <value unit="mL" xsi:type="PQ" value ="10.0" /> <referenceRange> < observationRange> <text /> </ observationRange> </referenceRange> </observation&gt ; </component> <component> <observation moodCode ="EVN" classCode="OBS"> <templateId root=& quot;2.16.840.1.240569.10.20.22.4.2" /> <id nullFlavor=&quot ;NA" /> <code codeSystem="local" code="WBCCSF" displayName="CSF WBC" /> <statusCode code=" completed" /> <effectiveTime value="814843367279" /> <value unit="#/cumm" xsi:type="PQ" value=& quot;3" /> <referenceRange> < observationRange> <text>0-5</text> </ observationRange> </referenceRange> </observation&gt ; </component> </organizer> </entry> <entry> <organizer moodCode="EVN" classCode="BATTERY"> <templateId root="2.16.840.1.436506.10.20.22.4.1" /> < id nullFlavor="NA" /> <code codeSystem="local" code="PROTCSF" displayName="CSF TOTAL PROTEIN" /> & lt;statusCode code="completed" /> <component> &lt ;observation moodCode="EVN" classCode="OBS"> &lt ;templateId root="2.16.840.1.960880.10..22.4.2" /> < id nullFlavor="NA" /> <code codeSystem="local&quot ; code="PROTEINCSF" displayName="CSF TOTAL PROTEIN" /> <statusCode code="completed" /> < effectiveTime value="991453740344" /> <value unit=&quot ;mg/dL" xsi:type="PQ" value="33" /> < referenceRange> <observationRange> <text> 15-45</text> </observationRange> </ referenceRange> </observation> </component> < component> <observation moodCode="EVN" classCode=" OBS"> <templateId root="2.16.840.1.095847.10.20.22.4.2& quot; /> <id nullFlavor="NA" /> <code codeSystem="local" code="COLORCSFX" displayName="CSF COLOR-CENTRIFUGED" /> <statusCode code="completed" /&gt ; <effectiveTime value="144107247573" /> < value unit="" xsi:type="PQ" value="COLORLESS" /&gt ; <referenceRange> <observationRange> <text>COLORLESS</text> </observationRange> </referenceRange></observation> </component> &lt ;/organizer> </entry> <entry><organizer moodCode="EVN& quot; classCode="BATTERY"> <templateId root=" 2.16.840.1.418193.10.20.22.4.1" /> <id nullFlavor="NA&quot ; /> <code codeSystem="local" code="GLUCSF" displayName="CSF GLUCOSE" /> <statusCode code="completed& quot; /> <component> <observation moodCode="EVN& quot; classCode="OBS"> <templateId root=" 2.16.840.1.784054.10.20.22.4.2" /> <id nullFlavor="NA& quot; /> <code codeSystem="local" code="GLUCSF& quot; displayName="CSF GLUCOSE" /> <statusCode code=& quot;completed" /> <effectiveTime value="926378474433& quot;/> <value unit="mg/dL" xsi:type="PQ" value="63" /> <referenceRange> < observationRange> <text>40-70</text> < /observationRange> </referenceRange> </observation& gt; </component> </organizer> </entry> <entry&gt ; <organizer moodCode="EVN" classCode="BATTERY"> <templateId root="2.16.840.1.752665.10.20.22.4.1" /> & lt;id nullFlavor="NA" /> <code codeSystem="local&quot ; code="CYTO" displayName="FLUID CYTOLOGY" /> < statusCode code="completed" /> <component> < observation moodCode="EVN" classCode="OBS"> < templateId root="2.16.840.1.725395.10.20.22.4.2" /> < id nullFlavor="NA" /> <code codeSystem="local&quot ; code="CYTO" displayName="FLUID CYTOLOGY" /> & lt;statusCode code="completed" /> <effectiveTime value= "785223644512" /> <value unit="" xsi:type="PQ& quot; value="SPECIMEN RECEIVED" /> <referenceRange> <observationRange> <text /> </observationRange > </referenceRange> </observation> </ component> </organizer> </entry> <entry> < organizer moodCode="EVN" classCode="BATTERY"> < templateId root="2.16.840.1.276496.10.20.22.4.1" /> <id nullFlavor="NA" /> <code codeSystem="local" code= "CYTO" displayName="FLUID CYTOLOGY" /> < statusCode code="completed" /> <component> < observation moodCode="EVN" classCode="OBS"> < templateId root="2.16.840.1.036722.10.20.22.4.2" /> <id nullFlavor="NA" /> <code codeSystem="local" code="CYTO" displayName="FLUID CYTOLOGY" /> < statusCode code="completed" /> <effectiveTime value=& quot;822717845152" /> <value unit="" xsi:type=& quot;PQ" value="SPECIMEN RECEIVED" /> < referenceRange> <observationRange> <text /& gt; </observationRange> </referenceRange> </observation> </component> </organizer> </entry > <entry> <organizer moodCode="EVN" classCode=" BATTERY"> <templateId root="2.16.840.1.384734.10.20.22.4.1& quot; /> <id nullFlavor="NA" /> <code codeSystem ="local" code="CBCD" displayName="CBC W/DIFF" /&gt ; <statusCode code="completed" /> <component> <observation moodCode="EVN" classCode="OBS"> & lt;templateId root="2.16.840.1.274196.10.20.22.4.2" /> &lt ;id nullFlavor="NA" /> <code codeSystem="local& quot; code="EO#" displayName="EOSINOPHIL #" /> & lt;statusCode code="completed" /> <effectiveTime value= "726622872451" /> <value unit="k/cumm" xsi: type="PQ" value="0.6" /> <interpretationCode codeSystem="local" code="*" /> < referenceRange> <observationRange> <text>0.1- 0.5</text> </observationRange> </ referenceRange> </observation> </component> < component> <observation moodCode="EVN" classCode=" OBS"> <templateId root="2.16.840.1.672595.10.20.22.4.2& quot; /> <id nullFlavor="NA" /> <code codeSystem="local" code="EO%" displayName=" EOSINOPHIL %" /> <statusCode code="completed& quot; /> <effectiveTime value="245200826018" /> <value unit="%" xsi:type="PQ" value="5 " /> <interpretationCode codeSystem="local" code=& quot;*" /> <referenceRange> < observationRange> <text>2-4</text> </ observationRange> </referenceRange> </observation&gt ; </component> <component> <observation moodCode ="EVN" classCode="OBS"> <templateId root=& quot;2.16.840.1.180076.10.20.22.4.2" /> <id nullFlavor=&quot ;NA" /> <code codeSystem="local" code="GR#& quot; displayName="GRANULOCYTE #" /> <statusCode code=& quot;completed" /> <effectiveTime value="184220489581& quot; /> <value unit="k/cumm" xsi:type="PQ" value ="8.7" /><referenceRange> <observationRange&gt ; <text>2.0-9.0</text> </observationRange > </referenceRange> </observation> </ component> <component> <observation moodCode="EVN& quot; classCode="OBS"> <templateId root=" 2.16.840.1.902174.10.20.22.4.2" /> <id nullFlavor="NA& quot; /> <code codeSystem="local" code="GR&#37 ;" displayName="GRANULOCYTE %" /> < statusCodecode="completed" /> <effectiveTime value=& quot;142046908098" /> <value unit="%" xsi:type= "PQ" value="67" /> <referenceRange> < observationRange> <text>50-75</text> < /observationRange> </referenceRange> </observation& gt; </component> <component> <observation moodCode="EVN" classCode="OBS"> <templateId root="2.16.840.1.902607.10.20.22.4.2" /> <id nullFlavor ="NA" /> <code codeSystem="local" code=" LY#" displayName="LYMPHOCYTE #" /> <statusCode code="completed" /> <effectiveTime value=" 598816421036" /> <value unit="k/cumm" xsi:type=& quot;PQ" value="2.7" /> <referenceRange> <observationRange> <text>1.0-4.0</text> </observationRange> </referenceRange> </ observation> </component> <component> < observation moodCode="EVN" classCode="OBS"> < templateId root="2.16.840.1.535882.10.20.22.4.2" /> < id nullFlavor="NA" /> <code codeSystem="local&quot ; code="LY%" displayName="LYMPHOCYTE %" /&gt ; <statusCode code="completed" /> < effectiveTime value="652601201273" /> <value unit=&quot ;%" xsi:type="PQ" value="20" /> &lt ;referenceRange> <observationRange> <text&gt ;20-30</text> </observationRange> </ referenceRange> </observation> </component> < component> <observation moodCode="EVN" classCode=" OBS"> <templateId root="2.16.840.1.710213.10.20.22.4.2& quot; /> <id nullFlavor="NA" /> <code codeSystem="local" code="MCH" displayName="MEAN CELL HGB" /> <statusCode code="completed" /> &lt ;effectiveTime value="218051835067" /> <value unit=& quot;pg" xsi:type="PQ" value="28.2" /> < referenceRange> <observationRange> <text> 27.0-33.0</text> </observationRange> </ referenceRange> </observation> </component> < component> <observation moodCode="EVN" classCode=" OBS"> <templateId root="2.16.840.1.798326.10.20.22.4.2& quot; /> <id nullFlavor="NA" /> <code codeSystem="local" code="MCHC" displayName="MEAN CELL HGB CONCENTRATION" /> <statusCode code="completed&quot ; /> <effectiveTime value="636863401215" /> < value unit="g/dL" xsi:type="PQ" value="32.8" /&gt ; <referenceRange> <observationRange> <text>32.0-37.0</text> </observationRange> </referenceRange> </observation> </component&gt ; <component> <observation moodCode="EVN" classCode="OBS"> <templateId root=" 2.16.840.1.631223.10.20.22.4.2" /> <id nullFlavor="NA& quot; /> <code codeSystem="local" code="MCV" displayName="MEANCELL VOLUME" /> <statusCode code=&quot ;completed" /> <effectiveTime value="915626890358&quot ; /> <value unit="fl" xsi:type="PQ" value=& quot;86.0" /> <referenceRange> < observationRange> <text>80.0-100.0</text> </observationRange> </referenceRange> </ observation> </component> <component> <observation moodCode="EVN" classCode="OBS"> <templateId root="2.16.840.1.405480.10.20.22.4.2" /> <id nullFlavor ="NA" /> <code codeSystem="local" code="MO#& quot; displayName="MONOCYTE #" /> <statusCode code=& quot;completed" /> <effectiveTime value="931378703412& quot; /> <value unit="k/cumm" xsi:type="PQ" value="1.0" /> <referenceRange> < observationRange> <text>0.1-1.0</text> & lt;/observationRange> </referenceRange> </observation > </component> <component> <observation moodCode="EVN" classCode="OBS"> <templateId root="2.16.840.1.276948.10.20.22.4.2" /> <id nullFlavor ="NA" /> <code codeSystem="local" code=" MO%" displayName="MONOCYTE %" /> < statusCode code="completed" /> <effectiveTime value=& quot;163826018111" /> <value unit="%" xsi: type="PQ" value="8" /> <interpretationCode codeSystem="local" code="*" /> <referenceRange > <observationRange> <text>4-6</text& gt; </observationRange> </referenceRange> </observation> </component> <component> &lt ;observation moodCode="EVN"classCode="OBS"> < templateId root="2.16.840.1.908778.10.20.22.4.2" /> < id nullFlavor="NA" /> <code codeSystem="local&quot ; code="RBC" displayName="RED BLOOD CELL" /> &lt ;statusCode code="completed" /> <effectiveTime value=& quot;824492772595" /> <value unit="m/cumm" xsi: type="PQ" value="4.72" /> <referenceRange&gt ; <observationRange> <text>4.00-6.00</ text> </observationRange> </referenceRange> </observation> </component> <component> &lt ;observation moodCode="EVN" classCode="OBS"> &lt ;templateId root="2.16.840.1.613562.10.20.22.4.2" /> <id nullFlavor="NA" /> <code codeSystem="local" code="RDW" displayName="RED CELL DISTRIBUTION WIDTH" /> <statusCode code="completed" /> < effectiveTime value="497435548841" /> <value unit=&quot ;%" xsi:type="PQ" value="13.2" /> & lt;referenceRange> <observationRange> <text& gt;11.0-15.6</text> </observationRange> </ referenceRange> </observation> </component> < component> <observation moodCode="EVN" classCode=" OBS"> <templateId root="2.16.840.1.482701.10.20.22.4.2& quot; /> <id nullFlavor="NA" /> <code codeSystem="local" code="WBC" displayName="WHITE BLOOD CELL" /> <statusCode code="completed" /> <effectiveTime value="042191613695" /> <value unit="k/cumm" xsi:type="PQ" value="13.1" /> <interpretationCode codeSystem="local" code="*" /& gt; <referenceRange> <observationRange> < text>5.0-10.0</text> </observationRange> < /referenceRange> </observation> </component> &lt ;component> <observation moodCode="EVN" classCode=" OBS"> <templateId root="2.16.840.1.177234.10.20.22.4.2" /& gt; <id nullFlavor="NA" /> <code codeSystem ="local" code="HGBT" displayName="HEMOGLOBIN" /&gt ; <statusCode code="completed" /> < effectiveTime value="791328625285" /> <value unit=&quot ;gm/dL" xsi:type="PQ" value="13.3" /> < referenceRange> <observationRange> <text> 12.0-16.0</text> </observationRange> </referenceRange& gt; </observation> </component> <component> <observation moodCode="EVN" classCode="OBS"> <templateIdroot="2.16.840.1.149705.10.20.22.4.2" /> <id nullFlavor="NA" /> <code codeSystem=" local" code="HCTT" displayName="HEMATOCRIT" /> <statusCode code="completed" /> <effectiveTime value="145252440414" /> <value unit="%& quot; xsi:type="PQ" value="40.6" /> < referenceRange> <observationRange> <text>37.0- 47.0</text> </observationRange> </ referenceRange> </observation> </component> < component> <observation moodCode="EVN" classCode=" OBS"> <templateId root="2.16.840.1.081295.10.20.22.4.2& quot; /> <id nullFlavor="NA" /> <code codeSystem="local" code="PLTT" displayName="PLATELET COUNT" /> <statusCode code="completed" /> <effectiveTime value="437606768765" /> <value unit="k/cumm" xsi:type="PQ" value="314" /> <referenceRange> <observationRange> & lt;text>150-400</text> </observationRange> & lt;/referenceRange> </observation> </component> </ organizer> </entry> <entry> <organizer moodCode="EVN " classCode="BATTERY"> <templateId root=" 2.16.840.1.919314.10.20.22.4.1" /> <id nullFlavor="NA&quot ; /> <code codeSystem="local" code="RENAL" displayName="RENAL FUNCTION PANEL" /> <statusCode code=& quot;completed" /> <component> <observation moodCode="EVN" classCode="OBS"> <templateId root="2.16.840.1.674548.10.20.22.4.2" /> <id nullFlavor ="NA" /> <code codeSystem="local" code=" K" displayName="POTASSIUM" /><statusCode code=" completed" /> <effectiveTime value="635251310391" /> <value unit="mmol/L" xsi:type="PQ" value=& quot;3.8" /> <referenceRange> < observationRange> <text>3.5-5.3</text> & lt;/observationRange> </referenceRange> </ observation> </component> <component> < observation moodCode="EVN" classCode="OBS"> < templateId root="2.16.840.1.001902.10.20.22.4.2" /> < id nullFlavor="NA" /> <code codeSystem="local&quot ; code="eGFR" displayName="EST GFR (MDRD)" /> & lt;statusCodecode="completed" /> <effectiveTime value=& quot;123726486445" /> <value unit="mL/min" xsi:type=& quot;PQ" value="58" /> <interpretationCode codeSystem="local" code="*" /> < referenceRange> <observationRange> <text> > 59</text> </observationRange> </referenceRange > </observation> </component> <component> <observation moodCode="EVN" classCode="OBS"> <templateId root="2.16.840.1.279207.10.20.22.4.2" /> <id nullFlavor="NA" /> <code codeSystem=& quot;local" code="GAP" displayName="ANION GAP" /> <statusCode code="completed" /> < effectiveTime value="199023361871" /> <value unit=&quot ;mmol/L" xsi:type="PQ" value="9" /> < referenceRange> <observationRange> <text> 5-15</text> </observationRange> </ referenceRange> </observation> </component> < component> <observation moodCode="EVN" classCode=" OBS"> <templateId root="2.16.840.1.050431.10.20.22.4.2& quot; /> <id nullFlavor="NA" /> <code codeSystem="local" code="eCrCl" displayName="EST CrCl ( CG)" /> <statusCode code="completed" /> <effectiveTime value="999346214108" /> <value unit="mL/min" xsi:type="PQ" value="> 60" /& gt; <referenceRange> <observationRange> <text>> 59</text> </observationRange> </referenceRange> </observation> </component& gt; <component> <observation moodCode="EVN" classCode="OBS"> <templateId root=" 2.16.840.1.056059.10..22.4.2" /> <id nullFlavor="NA& quot; /> <code codeSystem="local" code="GLU" displayName="GLUCOSE" /> <statusCode code=" completed" /> <effectiveTime value="401109413518" /> <value unit="mg/dL" xsi:type="PQ" value=& quot;106" /> <interpretationCode codeSystem="local&quot ; code="*" /> <referenceRange> < observationRange> <text>70-99</text> < /observationRange> </referenceRange> </observation& gt; </component> <component> <observation moodCode="EVN" classCode="OBS"> <templateId root="2.16.840.1.453438.10.20.22.4.2" /> <id nullFlavor ="NA" /> <code codeSystem="local" code=" CA" displayName="CALCIUM" /> <statusCode code=& quot;completed" /> <effectiveTime value="477714659193& quot; /><value unit="mg/dL" xsi:type="PQ" value=" 8.6" /> <referenceRange> <observationRange& gt; <text>8.5-10.1</text> </observationRange > </referenceRange> </observation></component& gt; <component> <observation moodCode="EVN" classCode="OBS"> <templateId root=" 2.16.840.1.771092.10.20.22.4.2" /> <id nullFlavor="NA" /> <code codeSystem="local" code="BUN" displayName="BLOOD UREA NITROGEN" /> <statusCode code=& quot;completed" /> <effectiveTime value="361852781814& quot; /> <value unit="mg/dL" xsi:type="PQ" value="16" /> <referenceRange> < observationRange> <text>7-20</text> </ observationRange> </referenceRange> </observation&gt ; </component> <component> <observation moodCode ="EVN" classCode="OBS"> <templateId root=& quot;2.16.840.1.393685.10.20.22.4.2" /> <id nullFlavor=&quot ;NA" /> <code codeSystem="local" code="CREAT& quot; displayName="CREATININE" /> <statusCode code=& quot;completed" /> <effectiveTime value="276838700548" /& gt; <value unit="mg/dL" xsi:type="PQ" value=& quot;1.1" /> <interpretationCode codeSystem="local&quot ; code="*" /> <referenceRange> < observationRange> <text>0.6-1.0</text> & lt;/observationRange> </referenceRange> </ observation> </component> <component> < observation moodCode="EVN" classCode="OBS"> < templateId root="2.16.840.1.355613.10.20.22.4.2" /> < id nullFlavor="NA" /> <code codeSystem="local" code= "NA" displayName="SODIUM" /> <statusCode code=& quot;completed" /> <effectiveTime value="149108852925& quot; /> <value unit="mmol/L" xsi:type="PQ" value="138" /> <referenceRange> < observationRange> <text>135-148</text> & lt;/observationRange> </referenceRange></observation> </component> <component> <observation moodCode=& quot;EVN" classCode="OBS"> <templateId root=" 2.16.840.1.815107.10.20.22.4.2" /> <id nullFlavor="NA& quot; /> <code codeSystem="local" code="CL" displayName="CHLORIDE" /> <statusCode code=" completed" /> <effectiveTime value="119855414034" /> <value unit="mmol/L" xsi:type="PQ" value=" 109" /> <referenceRange> <observationRange& gt; <text>98-110</text> </observationRange > </referenceRange> </observation> </ component> <component> <observation moodCode="EVN& quot; classCode="OBS"> <templateId root=" 2.16.840.1.004978.10.20.22.4.2" /> <id nullFlavor="NA&quot ; /> <code codeSystem="local" code="CO2" displayName="CARBON DIOXIDE" /> <statusCode code=" completed" /> <effectiveTime value="002147075210" /> <value unit="mmol/L" xsi:type="PQ" value=& quot;20" /> <interpretationCode codeSystem="local&quot ; code="*" /> <referenceRange> < observationRange> <text>21-32</text> < /observationRange> </referenceRange> </observation& gt; </component> <component> <observation moodCode="EVN" classCode="OBS"> <templateId root="2.16.840.1.524757.10.20.22.4.2" /> <id nullFlavor ="NA" /> <code codeSystem="local" code=" ALB" displayName="ALBUMIN" /> <statusCode code=& quot;completed" /> <effectiveTimevalue="012340503431& quot; /> <value unit="gm/dL" xsi:type="PQ" value="3.3" /> <interpretationCode codeSystem=" local" code="*" /> <referenceRange> <observationRange> <text>3.4-5.0</text> </observationRange> </referenceRange> </ observation> </component> <component> < observation moodCode="EVN" classCode="OBS"> < templateId root="2.16.840.1.288432.10.20.22.4.2" /> < id nullFlavor="NA" /> <code codeSystem="local&quot ; code="PHOS" displayName="PHOSPHORUS" /> < statusCode code="completed" /> <effectiveTime value=& quot;945621611666" /> <value unit="mg/dL" xsi:type ="PQ" value="4.8" /> <referenceRange> <observationRange> <text>2.5-4.9</text> </observationRange> </referenceRange> </ observation> </component> </organizer> </entry> & lt;entry> <organizer moodCode="EVN" classCode="BATTERY& quot;> <templateId root="2.16.840.1.602217.10.20.22.4.1" /& gt; <id nullFlavor="NA" /> <code codeSystem=" local" code="MAG" displayName="MAGNESIUM" /> & lt;statusCode code="completed" /> <component> &lt ;observation moodCode="EVN" classCode="OBS"> &lt ;templateId root="2.16.840.1.784856.10.20.22.4.2"/> < id nullFlavor="NA" /> <code codeSystem="local&quot ;code="MAG" displayName="MAGNESIUM" /> < statusCode code="completed" /> <effectiveTime value=& quot;617715479399" /> <value unit="mg/dL" xsi:type ="PQ" value="2.2" /> <referenceRange> <observationRange> <text>1.8-2.4</text> </observationRange> </referenceRange> &lt ;/observation> </component> </organizer> </entry> <entry> <organizer moodCode="EVN" classCode=" BATTERY"> <templateId root="2.16.840.1.340806.10.20.22.4.1& quot; /> <id nullFlavor="NA" /> <code codeSystem ="local" code="CBCD" displayName="CBC W/DIFF" /&gt ; <statusCode code="completed" /> <component> <observation moodCode="EVN" classCode="OBS"> <templateId root="2.16.840.1.169472.10.20.22.4.2" /> <id nullFlavor="NA" /> <code codeSystem=" local" code="EO#" displayName="EOSINOPHIL #" /> <statusCode code="completed" /> <effectiveTime value="056831903714" /> <value unit="k/cumm" xsi:type="PQ" value="0.6" /> < interpretationCode codeSystem="local" code="*" /> <referenceRange> <observationRange> < text>0.1-0.5</text> </observationRange> </ referenceRange> </observation> </component> < component> <observation moodCode="EVN" classCode="OBS& quot;> <templateIdroot="2.16.840.1.079023.10.20.22.4.2&quot ; /> <id nullFlavor="NA" /> <code codeSystem="local" code="EO%" displayName=" EOSINOPHIL %" /> <statusCode code="completed& quot; /> <effectiveTime value="150691578867" /> <value unit="%" xsi:type="PQ" value="5 " /> <interpretationCode codeSystem="local" code=& quot;*" /> <referenceRange> < observationRange> <text>2-4</text> </ observationRange> </referenceRange> </observation&gt ; </component> <component> <observation moodCode ="EVN" classCode="OBS"> <templateId root=& quot;2.16.840.1.813853.10.20.22.4.2" /> <id nullFlavor=&quot ;NA" /> <code codeSystem="local" code="GR#& quot; displayName="GRANULOCYTE #" /> <statusCode code=" completed" /> <effectiveTime value="139145158470" /> <value unit="k/cumm" xsi:type="PQ" value=& quot;8.7"/> <referenceRange> < observationRange> <text>2.0-9.0</text> & lt;/observationRange> </referenceRange> </ observation> </component> <component> < observation moodCode="EVN" classCode="OBS"> < templateId root="2.16.840.1.758474.10.20.22.4.2" /> < id nullFlavor="NA" /> <code codeSystem="local&quot ; code="GR%" displayName="GRANULOCYTE %" /& gt;<statusCode code="completed" /> <effectiveTime value="409862804942" /> <value unit="%& quot; xsi:type="PQ" value="67" /> < referenceRange> <observationRange> <text> 50-75</text> </observationRange> </ referenceRange> </observation> </component> < component> <observation moodCode="EVN" classCode=" OBS"> <templateId root="2.16.840.1.721945.10.20.22.4.2& quot; /> <id nullFlavor="NA" /> <code codeSystem="local" code="LY#" displayName="LYMPHOCYTE # " /> <statusCode code="completed" /> & lt;effectiveTime value="790600317255" /> <value unit="k/ cumm" xsi:type="PQ" value="2.7" /> < referenceRange> <observationRange> <text> 1.0-4.0</text> </observationRange> </ referenceRange> </observation> </component> < component> <observation moodCode="EVN" classCode=" OBS"> <templateId root="2.16.840.1.053808.10.20.22.4.2& quot; /> <id nullFlavor="NA" /> <code codeSystem="local" code="LY%" displayName=" LYMPHOCYTE %" /> <statusCode code="completed& quot; /> <effectiveTime value="[id number]" />< value unit="%" xsi:type="PQ" value="20" /& gt; <referenceRange> <observationRange> <text>20-30</text> </observationRange> </referenceRange> </observation></component> < component> <observation moodCode="EVN" classCode=" OBS"> <templateId root="[id number]& quot; /> <id nullFlavor="NA" /> <code codeSystem="local" code="MCH" displayName="MEAN CELL HGB" /> <statusCode code="completed" /> <effectiveTime value="[id number]" /> <value unit="pg" xsi:type="PQ" value="28.2" /> <referenceRange> <observationRange> <text& gt;27.0-33.0</text> </observationRange> </ referenceRange> </observation> </component> < component> <observation moodCode="EVN" classCode=" OBS"> <templateId root="2.16.840.1.198522.10.20.22.4.2& quot; /> <id nullFlavor="NA" /> <code codeSystem="local" code="[facility]" displayName="MEAN CELL HGB CONCENTRATION" /> <statusCode code="completed&quot ; /> <effectiveTime value="583279945183" /> <value unit="g/dL" xsi:type="PQ" value="32.8&quot ; /> <referenceRange> <observationRange> <text>32.0-37.0</text> </observationRange> </referenceRange> </observation> </component& gt; <component> <observation moodCode="EVN" classCode="OBS"> <templateId root=" 2.16.840.1.574864.10.20.22.4.2" /> <id nullFlavor="NA& quot; /> <code codeSystem="local" code="MCV" displayName="MEAN CELL VOLUME" /> <statusCode code=& quot;completed" /> <effectiveTime value="251692476013" / > <value unit="fl" xsi:type="PQ" value=" 86.0" /> <referenceRange> <observationRange > <text>80.0-100.0</text> </ observationRange> </referenceRange> </observation&gt ; </component> <component> <observation moodCode ="EVN" classCode="OBS"> <templateId root=& quot;2.16.840.1.598185.10..22.4.2" /> <id nullFlavor=&quot ;NA" /> <code codeSystem="local" code="MO#& quot; displayName="MONOCYTE #" /> <statusCode code=& quot;completed" /> <effectiveTime value="321140675662& quot; /> <value unit="k/cumm" xsi:type="PQ" value="1.0" /> <referenceRange> < observationRange> <text>0.1-1.0</text> &lt ;/observationRange> </referenceRange> </observation& gt; </component> <component> <observation moodCode="EVN" classCode="OBS"> <templateId root="2.16.840.1.675597.10..22.4.2" /> <id nullFlavor ="NA" /><code codeSystem="local" code="MO&#37 ;" displayName="MONOCYTE %" /> < statusCode code="completed" /> <effectiveTime value=& quot;847101063364" /> <value unit="%" xsi: type="PQ" value="8" /> <interpretationCode codeSystem="local" code="*" /> < referenceRange> <observationRange> <text> 4-6</text> </observationRange> </ referenceRange></observation> </component> < component> <observation moodCode="EVN" classCode=" OBS"> <templateId root="2.16.840.1.099849.10.20.22.4.2& quot; /> <id nullFlavor="NA" /> <code codeSystem="local" code="RBC" displayName="RED BLOOD CELL" /> <statusCode code="completed" /> <effectiveTime value="496531600260" /> <value unit="m/cumm" xsi:type="PQ" value="4.72" /> <referenceRange> <observationRange> < text>4.00-6.00</text> </observationRange> &lt ;/referenceRange> </observation> </component> & lt;component> <observation moodCode="EVN" classCode=&quot ;OBS"> <templateId root="2.16.840.1.383420.10..22.4.2 " /> <id nullFlavor="NA" /> <code codeSystem="local" code="RDW" displayName="RED CELL DISTRIBUTION WIDTH" /> <statusCode code="completed&quot ; /> <effectiveTime value="033640992672" /> <value unit="%" xsi:type="PQ" value="13.2& quot; /> <referenceRange> <observationRange> <text>11.0-15.6</text> </observationRange& gt; </referenceRange> </observation> </ component> <component> <observation moodCode="EVN& quot; classCode="OBS"> <templateId root=" 2.16.840.1.107091.10.20.22.4.2" /> <id nullFlavor="NA& quot; /> <code codeSystem="local" code="WBC" displayName="WHITE BLOOD CELL" /> <statusCode code=& quot;completed" /> <effectiveTime value="745047464392& quot; /> <value unit="k/cumm" xsi:type="PQ" value=& quot;13.1" /> <interpretationCode codeSystem="local& quot; code="*" /> <referenceRange> < observationRange> <text>5.0-10.0</text> & lt;/observationRange> </referenceRange> </ observation> </component> <component> < observation moodCode="EVN" classCode="OBS"> < templateId root="2.16.840.1.595950.10.20.22.4.2" /> < id nullFlavor="NA" /> <code codeSystem="local&quot ; code="HGBT" displayName="HEMOGLOBIN" /> < statusCode code="completed" /> <effectiveTime value=" 820750441432" /> <value unit="gm/dL" xsi:type=& quot;PQ" value="13.3" /> <referenceRange> <observationRange> <text>12.0-16.0</text> </observationRange> </referenceRange> & lt;/observation> </component> <component> < observation moodCode="EVN" classCode="OBS">< templateId root="2.16.840.1.348201.10.20.22.4.2" /> < id nullFlavor="NA" /> <code codeSystem="local&quot ; code="HCTT" displayName="HEMATOCRIT" /> < statusCode code="completed" /> <effectiveTime value=& quot;337894855606" /> <value unit="%" xsi: type="PQ" value="40.6" /> <referenceRange&gt ; <observationRange> <text>37.0-47.0</ text> </observationRange> </referenceRange> & lt;/observation> </component> <component> < observation moodCode="EVN" classCode="OBS"> < templateId root="2.16.840.1.931352.10.20.22.4.2" /> < id nullFlavor="NA" /> <code codeSystem="local&quot ; code="PLTT" displayName="PLATELET COUNT" /> & lt;statusCode code="completed" /> <effectiveTime value= "495562572082" /> <value unit="k/cumm" xsi: type="PQ" value="314" /> <referenceRange> <observationRange> <text>150-400</text> </observationRange> </referenceRange> &lt ;/observation> </component> </organizer> </entry> <entry> <organizer moodCode="EVN" classCode=" BATTERY"> <templateId root="2.16.840.1.664823.10.20.22.4.1& quot; /> <id nullFlavor="NA" /> <code codeSystem ="local" code="RENAL" displayName="RENAL FUNCTION PANEL " /> <statusCode code="completed" /> < component> <observation moodCode="EVN" classCode="OBS& quot;> <templateIdroot="2.16.840.1.535613.10.20.22.4.2&quot ; /> <id nullFlavor="NA" /> <code codeSystem="local" code="K" displayName="POTASSIUM&quot ;/> <statusCode code="completed" /> < effectiveTime value="763641125254" /> <value unit=&quot ;mmol/L" xsi:type="PQ" value="3.8" /> < referenceRange> <observationRange><text>3.5-5.3</ text> </observationRange> </referenceRange> </observation> </component> <component> <observation moodCode="EVN" classCode="OBS"> <templateId root="2.16.840.1.984440.10.20.22.4.2" /> <id nullFlavor="NA" /> <code codeSystem=" local" code="eGFR" displayName="EST GFR (MDRD)" />& lt;statusCode code="completed" /> <effectiveTime value= "370433677466" /> <value unit="mL/min" xsi: type="PQ" value="58" /> <interpretationCode codeSystem="local" code="*" /> < referenceRange> <observationRange> <text> > 59</text> </observationRange> </ referenceRange> </observation> </component> < component> <observation moodCode="EVN" classCode=" OBS"> <templateId root="2.16.840.1.329593.10..22.4.2& quot; /> <id nullFlavor="NA" /> <code codeSystem="local" code="GAP" displayName="ANION GAP& quot; /> <statusCode code="completed" /> & lt;effectiveTime value="060906625007" /> <value unit=& quot;mmol/L" xsi:type="PQ" value="9" /> &lt ;referenceRange> <observationRange> <text&gt ;5-15</text> </observationRange> </ referenceRange> </observation> </component> < component> <observation moodCode="EVN" classCode=" OBS"> <templateId root="2.16.840.1.580104.10.20.22.4.2& quot; /> <id nullFlavor="NA" /> <code codeSystem="local" code="eCrCl" displayName="EST CrCl ( CG)" /> <statusCode code="completed" /> < effectiveTime value="801182237941" /> <value unit=&quot ;mL/min" xsi:type="PQ" value="> 60" /> <referenceRange> <observationRange> <text>& amp;gt; 59</text> </observationRange> </ referenceRange> </observation> </component> < component> <observation moodCode="EVN" classCode=" OBS"> <templateId root="2.16.840.1.938003.10.20.22.4.2& quot; /> <id nullFlavor="NA" /> <code codeSystem="local" code="GLU" displayName="GLUCOSE&quot ; /> <statusCode code="completed" /> < effectiveTime value="000977178321" /> <value unit=&quot ;mg/dL" xsi:type="PQ" value="106" /> < interpretationCode codeSystem="local" code="*" /> <referenceRange> <observationRange> <text> 70-99</text> </observationRange> </ referenceRange> </observation> </component> < component> <observation moodCode="EVN" classCode=" OBS"> <templateId root="2.16.840.1.170927.10.20.22.4.2& quot; /> <id nullFlavor="NA" /> < codecodeSystem="local" code="CA" displayName="CALCIUM& quot; /> <statusCode code="completed" /> & lt;effectiveTime value="595522446103"/> <value unit=& quot;mg/dL" xsi:type="PQ" value="8.6" /> < referenceRange> <observationRange> <text> 8.5-10.1</text> </observationRange> </ referenceRange> </observation> </component> < component> <observation moodCode="EVN" classCode=" OBS"> <templateId root="2.16.840.1.825973.10.20.22.4.2& quot; /> <id nullFlavor="NA" /> <code codeSystem="local" code="BUN" displayName="BLOOD UREA NITROGEN" /> <statusCode code="completed" /> <effectiveTime value="858293279283" /> <value unit ="mg/dL" xsi:type="PQ" value="16" /> & lt;referenceRange> <observationRange> <text& gt;7-20</text> </observationRange> </ referenceRange> </observation> </component> < component> <observation moodCode="EVN" classCode=" OBS"> <templateId root="2.16.840.1.283158.10.20.22.4.2& quot; /> <id nullFlavor="NA" /> <code codeSystem="local" code="CREAT" displayName="CREATININE " /> <statusCode code="completed" /> & lt;effectiveTime value="169655173859" /> <value unit=& quot;mg/dL" xsi:type="PQ" value="1.1" /> & lt;interpretationCode codeSystem="local" code="*" /> <referenceRange> <observationRange> & lt;text>0.6-1.0</text> </observationRange> &lt ;/referenceRange> </observation> </component> & lt;component> <observation moodCode="EVN" classCode=&quot ;OBS"> <templateId root="2.16.840.1.892509.10..22.4.2 " /> <id nullFlavor="NA" /> <code codeSystem="local" code="NA" displayName="SODIUM" /> <statusCode code="completed" /> < effectiveTime value="231662558284" /> <value unit=&quot ;mmol/L" xsi:type="PQ" value="138" /> < referenceRange> <observationRange> <text>135-148& lt;/text> </observationRange> </referenceRange& gt; </observation> </component> <component> <observation moodCode="EVN" classCode="OBS"> <templateId root="2.16.840.1.716034.10..22.4.2" /> <id nullFlavor="NA" /> <code codeSystem=&quot ;local" code="CL" displayName="CHLORIDE" /> <statusCode code="completed" /> <effectiveTime value="099559874249" /> <value unit="mmol/L" xsi:type="PQ" value="109" /> <referenceRange& gt; <observationRange> <text>98-110</text > </observationRange> </referenceRange> </observation> </component> <component> & lt;observation moodCode="EVN" classCode="OBS"> & lt;templateId root="2.16.840.1.254621.10.20.22.4.2" /> &lt ;id nullFlavor="NA" /> <code codeSystem="local& quot; code="CO2" displayName="CARBON DIOXIDE" /> <statusCode code="completed" /> <effectiveTime value="744326604474" /> <value unit="mmol/L" xsi:type= "PQ" value="20" /> <interpretationCode codeSystem="local" code="*" /> < referenceRange> <observationRange> <text> 21-32</text> </observationRange> </ referenceRange> </observation> </component> < component> <observation moodCode="EVN" classCode=" OBS"> <templateId root="2.16.840.1.686627.10.20.22.4.2& quot; /> <id nullFlavor="NA" /> <code codeSystem="local" code="ALB" displayName="ALBUMIN&quot ; /> <statusCode code="completed" /> < effectiveTime value="396589533479" /> <value unit=&quot ;gm/dL" xsi:type="PQ" value="3.3" /> < interpretationCode codeSystem="local" code="*" /> <referenceRange> <observationRange> <text& gt;3.4-5.0</text> </observationRange> </ referenceRange> </observation> </component> < component> <observation moodCode="EVN" classCode=" OBS"> <templateId root="2.16.840.1.231371.10.20.22.4.2& quot; /> <id nullFlavor="NA" /> <code codeSystem="local" code="PHOS" displayName="PHOSPHORUS& quot; /> <statusCode code="completed" /> < effectiveTime value="093176778268" /> <value unit=&quot ;mg/dL" xsi:type="PQ" value="4.8" /> < referenceRange> <observationRange> <text> 2.5-4.9</text> </observationRange> </ referenceRange> </observation> </component> </ organizer> </entry> <entry> <organizer moodCode="EVN " classCode="BATTERY"> <templateId root=" 2.16.840.1.502942.10.20.22.4.1" /> <id nullFlavor="NA&quot ; /> <code codeSystem="local" code="MAG" displayName="MAGNESIUM" /> <statusCode code="completed " /> <component> <observation moodCode="EVN& quot; classCode="OBS"> <templateId root=" 2.16.840.1.587017.10.20.22.4.2" /> <id nullFlavor="NA& quot; /> <code codeSystem="local" code="MAG" displayName="MAGNESIUM" /> <statusCode code=" completed" /> <effectiveTime value="509703057151" /> <value unit="mg/dL" xsi:type="PQ" value=" 2.2" /> <referenceRange> <observationRange& gt; <text>1.8-2.4</text> </ observationRange> </referenceRange> </observation&gt ; </component> </organizer> </entry> <entry> & lt;organizer moodCode="EVN" classCode="BATTERY"> &lt ;templateId root="2.16.840.1.178940.10.20.22.4.1" /> <id nullFlavor="NA" /> <code codeSystem="local" code= "CBCD" displayName="CBC W/DIFF" /> <statusCode code="completed" /> <component> <observation moodCode="EVN" classCode="OBS"> <templateId root="2.16.840.1.921316.10.20.22.4.2" /> <id nullFlavor ="NA" /> <code codeSystem="local" code=" EO#" displayName="EOSINOPHIL #" /> <statusCode code="completed" /> <effectiveTime value=" 453555767131" /> <value unit="k/cumm" xsi:type=& quot;PQ" value="0.4" /> <referenceRange> <observationRange> <text>0.1-0.5</text> </observationRange> </referenceRange> </ observation> </component> <component> < observation moodCode="EVN" classCode="OBS"> < templateId root="2.16.840.1.338607.10.20.22.4.2" /> < id nullFlavor="NA" /> <code codeSystem="local&quot ; code="EO%" displayName="EOSINOPHIL %" /&gt ; <statusCode code="completed" /> < effectiveTime value="474446639938" /> <value unit=&quot ;%" xsi:type="PQ" value="3" /> < referenceRange> <observationRange> <text> 2-4</text> </observationRange> </ referenceRange> </observation> </component> < component> <observation moodCode="EVN" classCode=" OBS"> <templateId root="2.16.840.1.276755.10.20.22.4.2& quot; /> <id nullFlavor="NA" /> <code codeSystem="local" code="GR#" displayName="GRANULOCYTE #" /> <statusCode code="completed" /> < effectiveTime value="303918407507" /> <value unit=&quot ;k/cumm" xsi:type="PQ" value="9.7" /> < interpretationCode codeSystem="local" code="*" /> <referenceRange> <observationRange> < text>2.0-9.0</text> </observationRange> </ referenceRange> </observation> </component> < component> <observation moodCode="EVN" classCode=" OBS"> <templateId root="2.16.840.1.710995.10.20.22.4.2& quot; /> <id nullFlavor="NA" /> <code codeSystem="local" code="GR%" displayName=" GRANULOCYTE %" /> <statusCode code="completed& quot; /> <effectiveTime value="645324581082" /> <value unit="%" xsi:type="PQ" value=" 73" /> <referenceRange> <observationRange& gt; <text>50-75</text> </observationRange > </referenceRange> </observation> </ component> <component> <observation moodCode="EVN& quot; classCode="OBS"> <templateId root=" 2.16.840.1.697480.10.20.22.4.2" /> <id nullFlavor="NA& quot; /> <code codeSystem="local" code="LY#" displayName="LYMPHOCYTE #" /> <statusCode code=" completed" /> <effectiveTime value="702489398847" /> <value unit="k/cumm" xsi:type="PQ" value=& quot;2.3" /> <referenceRange> < observationRange> <text>1.0-4.0</text> & lt;/observationRange> </referenceRange> </observation& gt; </component> <component> <observation moodCode="EVN" classCode="OBS"> <templateId root="2.16.840.1.931722.10.20.22.4.2" /> <id nullFlavor ="NA" /> <code codeSystem="local" code=" LY%" displayName="LYMPHOCYTE %" /> & lt;statusCode code="completed" /> <effectiveTime value= "484254438422" /> <value unit="%" xsi :type="PQ" value="17" /> <interpretationCode codeSystem="local" code="*" /> < referenceRange> <observationRange> <text> 20-30</text> </observationRange> </ referenceRange> </observation> </component> < component> <observation moodCode="EVN" classCode=" OBS"> <templateId root="2.16.840.1.101672.10.20.22.4.2& quot; /> <id nullFlavor="NA" /> <code codeSystem="local" code="MCH" displayName="MEAN CELL HGB" /> <statusCode code="completed" /> <effectiveTime value="016137195489" /> <value unit="pg" xsi:type="PQ" value="28.1" /> <referenceRange> <observationRange> < text>27.0-33.0</text> </observationRange> </ referenceRange> </observation> </component> < component> <observation moodCode="EVN" classCode=" OBS"> <templateId root="2.16.840.1.867750.10.20.22.4.2& quot; /> <id nullFlavor="NA" /> <code codeSystem ="local" code="MCHC" displayName="MEAN CELL HGB CONCENTRATION" /> <statusCode code="completed" /& gt; <effectiveTime value="233064315907" /> &lt ;value unit="g/dL" xsi:type="PQ" value="33.2" /&gt ; <referenceRange> <observationRange> <text>32.0-37.0</text> </observationRange> & lt;/referenceRange> </observation> </component> <component> <observation moodCode="EVN" classCode=& quot;OBS"> <templateId root=" 2.16.840.1.368894.10.20.22.4.2" /> <id nullFlavor="NA" /&gt ; <code codeSystem="local" code="MCV" displayName="MEAN CELL VOLUME" /> <statusCode code=& quot;completed" /> <effectiveTime value="805349678676& quot; /> <value unit="fl" xsi:type="PQ" value ="84.7" /> <referenceRange> < observationRange> <text>80.0-100.0</text> </observationRange> </referenceRange> </ observation> </component> <component> < observation moodCode="EVN" classCode="OBS"> < templateId root="2.16.840.1.055555.10.20.22.4.2" /> < id nullFlavor="NA" /> <code codeSystem="local&quot ; code="MO#" displayName="MONOCYTE #" /> < statusCode code="completed" /> <effectiveTime value=& quot;099816891940" /> <value unit="k/cumm" xsi: type="PQ" value="0.9" /> <referenceRange> <observationRange> <text>0.1-1.0</text& gt; </observationRange> </referenceRange> &lt ;/observation> </component> <component> < observation moodCode="EVN" classCode="OBS"> < templateId root="2.16.840.1.546371.10.20.22.4.2" /> < id nullFlavor="NA"/> <code codeSystem="local&quot ; code="MO%" displayName="MONOCYTE %" /> <statusCode code="completed" /> < effectiveTime value="560197609741" /> <value unit=&quot ;%" xsi:type="PQ" value="7" /> < interpretationCode codeSystem="local" code="*" /> <referenceRange> <observationRange> <text& gt;4-6</text> </observationRange> </ referenceRange> </observation> </component> < component> <observation moodCode="EVN" classCode=" OBS"> <templateId root="2.16.840.1.440094.10.20.22.4.2& quot; /> <id nullFlavor="NA" /> <code codeSystem="local" code="RBC" displayName="RED BLOOD CELL" /> <statusCode code="completed" /> & lt;effectiveTime value="308887592898" /> <value unit=& quot;m/cumm" xsi:type="PQ" value="4.91" /> <referenceRange> <observationRange> <text >4.00-6.00</text> </observationRange> </ referenceRange> </observation> </component> < component> <observation moodCode="EVN" classCode=" OBS"> <templateId root="2.16.840.1.457926.10.20.22.4.2& quot; /> <id nullFlavor="NA" /> <code codeSystem="local" code="RDW" displayName="RED CELL DISTRIBUTION WIDTH" /> <statusCode code="completed" /& gt; <effectiveTime value="647473075552" /> &lt ;value unit="%" xsi:type="PQ" value="13.2&quot ; /> <referenceRange> <observationRange> <text>11.0-15.6</text> </observationRange&gt ; </referenceRange> </observation> </component& gt; <component> <observation moodCode="EVN" classCode="OBS"> <templateId root=" 2.16.840.1.214077.10.20.22.4.2" /> <id nullFlavor="NA& quot; /> <code codeSystem="local" code="WBC" displayName="WHITE BLOOD CELL" /> <statusCode code=& quot;completed" /> <effectiveTime value="669291541833& quot; /> <value unit="k/cumm" xsi:type="PQ" value="13.5" /> <interpretationCode codeSystem=" local" code="*" /> <referenceRange> <observationRange> <text>5.0-10.0</text> </observationRange> </referenceRange> </ observation> </component> <component> < observation moodCode="EVN" classCode="OBS"> < templateId root="2.16.840.1.373297.10.20.22.4.2" /> <id nullFlavor="NA" /> <code codeSystem="local" code="HGBT" displayName="HEMOGLOBIN" /> < statusCode code="completed" /> <effectiveTime value=& quot;252311244648" /> <value unit="gm/dL" xsi:type ="PQ" value="13.8" /> <referenceRange> <observationRange> <text>12.0-16.0</text&gt ; </observationRange> </referenceRange> & lt;/observation> </component> <component> < observation moodCode="EVN" classCode="OBS"> < templateId root="2.16.840.1.536739.10.20.22.4.2" /> < id nullFlavor="NA" /> <code codeSystem="local&quot ; code="HCTT" displayName="HEMATOCRIT" /> < statusCode code="completed" /> <effectiveTime value=" 092084627479" /> <value unit="%" xsi:type= "PQ" value="41.6" /> <referenceRange>< observationRange> <text>37.0-47.0</text> </observationRange> </referenceRange> </ observation> </component> <component> < observation moodCode="EVN" classCode="OBS"> < templateId root="2.16.840.1.574388.10.20.22.4.2" /> < id nullFlavor="NA" /> <code codeSystem="local&quot ; code="PLTT" displayName="PLATELET COUNT" /> & lt;statusCode code="completed" /> <effectiveTime value= "167434317981" /> <value unit="k/cumm" xsi: type="PQ" value="299" /> <referenceRange> <observationRange> <text>150-400</text& gt; </observationRange> </referenceRange> </ observation> </component> </organizer> </entry> & lt;entry> <organizer moodCode="EVN" classCode="BATTERY& quot;> <templateId root="2.16.840.1.437510.10.20.22.4.1" /& gt; <id nullFlavor="NA" /> <code codeSystem=" local" code="RENAL" displayName="RENAL FUNCTION PANEL" /> <statusCode code="completed" /> <component&gt ; <observation moodCode="EVN" classCode="OBS">& lt;templateId root="2.16.840.1.648432.10.20.22.4.2" /> &lt ;id nullFlavor="NA" /> <code codeSystem="local& quot; code="K" displayName="POTASSIUM" /> < statusCode code="completed" /> <effectiveTime value=& quot;051671344482" /> <value unit="mmol/L" xsi: type="PQ" value="3.5" /> <referenceRange> <observationRange> <text>3.5-5.3</text& gt; </observationRange> </referenceRange> </observation> </component> <component> &lt ;observation moodCode="EVN" classCode="OBS"> &lt ;templateId root="2.16.840.1.895843.10.20.22.4.2" /> < id nullFlavor="NA" /> <code codeSystem="local" code=& quot;eGFR" displayName="EST GFR (MDRD)"/> < statusCode code="completed" /> <effectiveTime value=& quot;970491128262" /> <value unit="mL/min" xsi: type="PQ" value="58" /> <interpretationCode codeSystem="local" code="*" /> < referenceRange> <observationRange> <text> > 59</text> </observationRange> </ referenceRange> </observation> </component> < component> <observation moodCode="EVN" classCode=" OBS"> <templateId root="2.16.840.1.923980.10.20.22.4.2& quot; /> <id nullFlavor="NA" /> <code codeSystem="local" code="GAP" displayName="ANION GAP& quot; /> <statusCode code="completed" /> & lt;effectiveTime value="885676729892" /> <value unit="mmol /L" xsi:type="PQ" value="10" /> < referenceRange> <observationRange> <text> 5-15</text> </observationRange> </referenceRange& gt; </observation> </component> <component> <observation moodCode="EVN" classCode="OBS"> <templateId root="2.16.840.1.105099.10..22.4.2" /> & lt;id nullFlavor="NA" /> <code codeSystem="local& quot; code="eCrCl" displayName="EST CrCl (CG)" /> <statusCode code="completed" /> <effectiveTime value="304035831936" /> <value unit="mL/min" xsi:type="PQ" value="> 60" /> < referenceRange> <observationRange> <text> > 59</text> </observationRange> </ referenceRange> </observation> </component> < component> <observation moodCode="EVN" classCode=" OBS"> <templateId root="2.16.840.1.960380.10.20.22.4.2& quot; /><id nullFlavor="NA" /> <code codeSystem=& quot;local" code="GLU" displayName="GLUCOSE" /> <statusCode code="completed" /> <effectiveTime value="350059928970" /> <value unit="mg/dL" xsi:type="PQ" value="127" /> < interpretationCode codeSystem="local" code="*" /> <referenceRange> <observationRange> < text>70-99</text> </observationRange> </ referenceRange> </observation> </component> < component> <observation moodCode="EVN" classCode="OBS& quot;> <templateId root="2.16.840.1.939774.10.20.22.4.2&quot ; /> <id nullFlavor="NA" /> <code codeSystem="local" code="CA" displayName="CALCIUM&quot ; /> <statusCode code="completed" /> < effectiveTime value="[id number]" /> <value unit=&quot ;mg/dL" xsi:type="PQ" value="8.9" /> < referenceRange> <observationRange> <text> 8.5-10.1</text> </observationRange> </ referenceRange> </observation> </component> < component> <observation moodCode="EVN" classCode=" OBS"> <templateId root="[id number]& quot; /> <id nullFlavor="NA" /> <code codeSystem="local" code="BUN" displayName="BLOOD UREA NITROGEN" /><statusCode code="completed" /> &lt ;effectiveTime value="[id number]" /> <value unit=& quot;mg/dL" xsi:type="PQ" value="18" /> &lt ;referenceRange> <observationRange> <text&gt ;7-20</text> </observationRange> </ referenceRange> </observation> </component> < component> <observation moodCode="EVN" classCode=" OBS"> <templateId root="2.16.840.1.789988.10.20.22.4.2& quot; /> <id nullFlavor="NA" /> <code codeSystem="local" code="CREAT" displayName="CREATININE " /> <statusCode code="completed" /> & lt;effectiveTime value="149830939317" /> <value unit=& quot;mg/dL" xsi:type="PQ" value="1.1" /> & lt;interpretationCode codeSystem="local" code="*" /> <referenceRange> <observationRange> < text>0.6-1.0</text> </observationRange> </ referenceRange> </observation> </component> < component> <observation moodCode="EVN" classCode=" OBS"> <templateId root="2.16.840.1.502846.10.20.22.4.2& quot; /> <id nullFlavor="NA" /> <code codeSystem="local" code="NA" displayName="SODIUM" /> <statusCode code="completed" /> < effectiveTime value="907836920561" /> <value unit=&quot ;mmol/L" xsi:type="PQ" value="139" /> < referenceRange> <observationRange> <text> 135-148</text> </observationRange></referenceRange&gt ; </observation> </component> <component> <observation moodCode="EVN" classCode="OBS"> <templateId root="2.16.840.1.232048.10.20.22.4.2" /> <id nullFlavor="NA" /> <code codeSystem="local " code="CL" displayName="CHLORIDE" /> < statusCode code="completed" /> <effectiveTime value=& quot;334099823913" /> <value unit="mmol/L" xsi: type="PQ" value="111" /> <interpretationCode codeSystem="local" code="*" /> < referenceRange> <observationRange> <text> 98-110</text> </observationRange> </ referenceRange> </observation> </component> < component> <observation moodCode="EVN" classCode=" OBS"> <templateId root="2.16.840.1.048503.10.20.22.4.2& quot; /> <id nullFlavor="NA" /> <code codeSystem="local" code="CO2" displayName="CARBON DIOXIDE" /> <statusCode code="completed" /> <effectiveTime value="929411004581" /> <value unit=& quot;mmol/L" xsi:type="PQ" value="18" /> & lt;interpretationCode codeSystem="local" code="*" /> <referenceRange> <observationRange> & lt;text>21-32</text> </observationRange> < /referenceRange> </observation> </component> &lt ;component> <observation moodCode="EVN" classCode=" OBS"> <templateId root="2.16.840.1.865932.10.20.22.4.2& quot; /> <id nullFlavor="NA" /> <code codeSystem="local" code="ALB" displayName="ALBUMIN&quot ; /> <statusCode code="completed" /> < effectiveTime value="471858196001" /> <value unit=&quot ;gm/dL" xsi:type="PQ" value="3.4" /> < referenceRange> <observationRange> <text> 3.4-5.0</text> </observationRange> </referenceRange > </observation> </component> <component> <observation moodCode="EVN" classCode="OBS"> <templateId root="2.16.840.1.873698.10.20.22.4.2" /> <id nullFlavor="NA" /> <code codeSystem=& quot;local" code="PHOS" displayName="PHOSPHORUS" /> <statusCode code="completed" /> < effectiveTime value="787189292004" /> <value unit=&quot ;mg/dL" xsi:type="PQ" value="4.2" /> < referenceRange> <observationRange> <text>2.5-4.9& lt;/text> </observationRange> </referenceRange& gt; </observation> </component> </organizer> & lt;/entry> <entry> <organizer moodCode="EVN" classCode ="BATTERY"> <templateId root=" 2.16.840.1.638297.10.20.22.4.1" /> <id nullFlavor="NA&quot ; /> <code codeSystem="local" code="MAG" displayName="MAGNESIUM" /> <statusCode code="completed " /> <component> <observation moodCode="EVN& quot; classCode="OBS"> <templateId root=" 2.16.840.1.409195.10.20.22.4.2" /> <id nullFlavor="NA& quot; /> <code codeSystem="local" code="MAG" displayName="MAGNESIUM" /><statusCode code="completed&quot ; /> <effectiveTime value="095175931690" /> <value unit="mg/dL" xsi:type="PQ" value="2.1&quot ; /> <referenceRange> <observationRange> <text>1.8-2.4</text> </observationRange> </referenceRange> </observation> </ component> </organizer> </entry> <entry> < organizer moodCode="EVN" classCode="BATTERY"> < templateId root="2.16.840.1.980826.10.20.22.4.1" /> <id nullFlavor="NA" /> <code codeSystem="local" code= "CBCD" displayName="CBC W/DIFF" /> <statusCode code="completed" /> <component> <observation moodCode="EVN" classCode="OBS"> <templateId root="2.16.840.1.075212.10.20.22.4.2" /> <id nullFlavor ="NA" /> <code codeSystem="local" code=" EO#" displayName="EOSINOPHIL #" /> <statusCode code="completed" /> <effectiveTime value=" 339980624475" /> <value unit="k/cumm" xsi:type="PQ& quot; value="0.4" /> <referenceRange> &lt ;observationRange> <text>0.1-0.5</text> & lt;/observationRange> </referenceRange> </ observation> </component> <component> < observation moodCode="EVN" classCode="OBS"> < templateId root="2.16.840.1.073135.10.20.22.4.2" /> <id nullFlavor="NA" /> <code codeSystem="local" code="EO%" displayName="EOSINOPHIL %" /> <statusCode code="completed" /> < effectiveTime value="449517947451" /> <value unit="&#37 ;" xsi:type="PQ" value="3" /> < referenceRange> <observationRange> <text> 2-4</text> </observationRange> </referenceRange&gt ; </observation> </component> <component> <observation moodCode="EVN" classCode="OBS"> <templateId root="2.16.840.1.152503.10.20.22.4.2" /> &lt ;id nullFlavor="NA" /> <code codeSystem="local& quot; code="GR#" displayName="GRANULOCYTE #" /> <statusCode code="completed" /> <effectiveTime value ="487851691153" /> <value unit="k/cumm" xsi: type="PQ" value="9.7" /> <interpretationCode codeSystem="local" code="*" /> < referenceRange> <observationRange> <text> 2.0-9.0</text> </observationRange> </ referenceRange> </observation> </component> < component> <observation moodCode="EVN" classCode=" OBS"> <templateId root="2.16.840.1.424572.10.20.22.4.2& quot; /> <id nullFlavor="NA" /> <code codeSystem="local" code="GR%" displayName=" GRANULOCYTE %" /> <statusCode code="completed& quot; /> <effectiveTime value="409570728523" /> &lt ;value unit="%" xsi:type="PQ" value="73" / > <referenceRange> <observationRange> <text>50-75</text> </observationRange> </referenceRange> </observation> </component> <component> <observation moodCode="EVN" classCode="OBS"> <templateId root=" 2.16.840.1.959054.10.20.22.4.2" /> <id nullFlavor="NA& quot; /> <code codeSystem="local" code="LY#" displayName="LYMPHOCYTE #" /> <statusCode code=" completed" /> <effectiveTime value="025514329635" /> <value unit="k/cumm" xsi:type="PQ" value=& quot;2.3" /> <referenceRange> < observationRange> <text>1.0-4.0</text> &lt ;/observationRange> </referenceRange> </observation& gt; </component> <component> <observation moodCode="EVN" classCode="OBS"> <templateId root="2.16.840.1.612520.10.20.22.4.2" /> <id nullFlavor ="NA" /><code codeSystem="local" code="LY&#37 ;" displayName="LYMPHOCYTE %" /> < statusCode code="completed" /> <effectiveTimevalue=& quot;210461767070" /> <value unit="%" xsi: type="PQ" value="17" /> <interpretationCode codeSystem="local" code="*" /> < referenceRange> <observationRange> <text> 20-30</text> </observationRange> </ referenceRange> </observation> </component> < component> <observation moodCode="EVN" classCode=" OBS"> <templateId root="2.16.840.1.677177.10.20.22.4.2& quot; /> <id nullFlavor="NA" /> <code codeSystem="local" code="MCH" displayName="MEAN CELL HGB" /> <statusCode code="completed" /> <effectiveTime value="679623461004" /> <value unit="pg" xsi:type="PQ" value="28.1" /> &lt ;referenceRange> <observationRange> <text&gt ;27.0-33.0</text> </observationRange> </ referenceRange> </observation> </component> < component> <observation moodCode="EVN" classCode=" OBS"> <templateId root="2.16.840.1.760269.10.20.22.4.2& quot; /> <id nullFlavor="NA" /> <code codeSystem="local" code="MCHC" displayName="MEAN CELL HGB CONCENTRATION" /> <statusCode code="completed&quot ; /> <effectiveTime value="402648747622" /> <value unit="g/dL" xsi:type="PQ" value="33.2&quot ; /> <referenceRange> <observationRange> <text>32.0-37.0</text> </observationRange> </referenceRange> </observation> </component&gt ; <component> <observation moodCode="EVN" classCode="OBS"> <templateId root=" 2.16.840.1.861659.10.20.22.4.2" /> <id nullFlavor="NA& quot; /> <code codeSystem="local" code="MCV" displayName="MEAN CELL VOLUME" /> <statusCode code=& quot;completed" /> <effectiveTime value="431918803507& quot; /> <value unit="fl" xsi:type="PQ" value ="84.7" /> <referenceRange> < observationRange> <text>80.0-100.0</text> < /observationRange> </referenceRange> </observation& gt; </component> <component> <observation moodCode="EVN" classCode="OBS"> <templateId root="2.16.840.1.531201.10..22.4.2" /> <id nullFlavor=" NA" /> <code codeSystem="local" code="MO#& quot; displayName="MONOCYTE #" /> <statusCode code=& quot;completed"/> <effectiveTime value="391960992177& quot; /> <value unit="k/cumm" xsi:type="PQ" value="0.9" /> <referenceRange> < observationRange> <text>0.1-1.0</text> & lt;/observationRange> </referenceRange> </ observation> </component> <component> < observation moodCode="EVN" classCode="OBS"> < templateId root="2.16.840.1.478379.10..22.4.2" /> < id nullFlavor="NA" /> <code codeSystem="local&quot ; code="MO%" displayName="MONOCYTE %" /> <statusCode code="completed" /> < effectiveTime value="780689010787" /> <value unit=&quot ;%" xsi:type="PQ" value="7" /> < interpretationCode codeSystem="local" code="*" /> <referenceRange> <observationRange> < text>4-6</text> </observationRange></referenceRange > </observation> </component> <component> <observation moodCode="EVN" classCode="OBS"> <templateId root="2.16.840.1.821077.10.20.22.4.2" /> <id nullFlavor="NA" /> <code codeSystem=" local" code="RBC" displayName="RED BLOOD CELL" /> <statusCode code="completed" /> < effectiveTime value="698043171417" /> <value unit=&quot ;m/cumm" xsi:type="PQ" value="4.91" /> < referenceRange> <observationRange> <text>4.00- 6.00</text> </observationRange> </ referenceRange> </observation> </component> < component> <observation moodCode="EVN" classCode=" OBS"> <templateId root="2.16.840.1.415826.10..22.4.2& quot; /> <id nullFlavor="NA" /> <code codeSystem="local" code="RDW" displayName="RED CELL DISTRIBUTION WIDTH" /> <statusCode code="completed&quot ; /> <effectiveTime value="978841636703" /> <value unit="%" xsi:type="PQ" value="13.2& quot; /> <referenceRange> <observationRange> <text>11.0-15.6</text> </observationRange&gt ; </referenceRange> </observation> </ component> <component> <observation moodCode="EVN& quot; classCode="OBS"> <templateId root=" 2.16.840.1.274444.10.20.22.4.2" /> <id nullFlavor="NA& quot; /> <code codeSystem="local" code="WBC" displayName="WHITE BLOOD CELL" /> <statusCode code=& quot;completed" /> <effectiveTime value="729218309789& quot; /> <value unit="k/cumm" xsi:type="PQ" value="13.5" /> <interpretationCode codeSystem=" local" code="*" /> <referenceRange> <observationRange> <text>5.0-10.0</text> </observationRange> </referenceRange> </ observation> </component> <component> < observation moodCode="EVN" classCode="OBS"> < templateId root="2.16.840.1.432451.10.20.22.4.2" /> < id nullFlavor="NA" /> <code codeSystem="local&quot ; code="HGBT" displayName="HEMOGLOBIN" /> < statusCode code="completed" /> <effectiveTime value=& quot;364351386528" /> <value unit="gm/dL" xsi:type="PQ " value="13.8" /> <referenceRange> & lt;observationRange> <text>12.0-16.0</text> </observationRange> </referenceRange> </ observation> </component> <component> < observation moodCode="EVN" classCode="OBS"> < templateId root="2.16.840.1.897028.10.20.22.4.2" /> <id nullFlavor="NA" /> <code codeSystem="local" code="HCTT" displayName="HEMATOCRIT" /> < statusCode code="completed" /> <effectiveTime value=& quot;595213948869" /> <value unit="%" xsi: type="PQ" value="41.6" /> <referenceRange&gt ; <observationRange> <text>37.0-47.0</ text> </observationRange> </referenceRange> </observation> </component> <component> <observation moodCode="EVN" classCode="OBS"> <templateId root="2.16.840.1.038844.10.20.22.4.2" /> <id nullFlavor="NA" /> <code codeSystem=" local" code="PLTT" displayName="PLATELET COUNT" /> <statusCode code="completed" /> < effectiveTime value="098340809186" /> <value unit=&quot ;k/cumm" xsi:type="PQ" value="299" /> < referenceRange> <observationRange> <text>150-400& lt;/text> </observationRange> </referenceRange& gt; </observation> </component> </organizer> & lt;/entry> <entry> <organizer moodCode="EVN" classCode ="BATTERY"> <templateId root=" 2.16.840.1.578513.10.20.22.4.1" /><id nullFlavor="NA" /&gt ; <code codeSystem="local" code="RENAL" displayName= "RENAL FUNCTION PANEL" /> <statusCode code="completed& quot; /> <component> <observation moodCode="EVN& quot; classCode="OBS"> <templateId root=" 2.16.840.1.288332.10.20.22.4.2" /> <idnullFlavor="NA& quot; /> <code codeSystem="local" code="K" displayName="POTASSIUM" /> <statusCode code=" completed" /> <effectiveTime value="184339655420" /> <value unit="mmol/L" xsi:type="PQ" value=" 3.5" /> <referenceRange> <observationRange& gt; <text>3.5-5.3</text> </ observationRange> </referenceRange> </observation&gt ; </component> <component> <observation moodCode ="EVN" classCode="OBS"> <templateId root=& quot;2.16.840.1.999904.10.20.22.4.2" /> <id nullFlavor=&quot ;NA" /> <code codeSystem="local" code="eGFR& quot; displayName="EST GFR (MDRD)" /> <statusCode code= "completed" /> <effectiveTime value="136293914332& quot; /> <value unit="mL/min" xsi:type="PQ" value="58" /> <interpretationCode codeSystem=" local" code="*" /> <referenceRange> <observationRange><text>> 59</text> </ observationRange> </referenceRange> </observation&gt ; </component> <component> <observation moodCode ="EVN" classCode="OBS"> <templateId root=& quot;2.16.840.1.429967.10.20.22.4.2" /> <id nullFlavor=&quot ;NA" /> <codecodeSystem="local" code="GAP& quot; displayName="ANION GAP" /> <statusCode code=&quot ;completed" /> <effectiveTime value="471834049685&quot ; /> <value unit="mmol/L" xsi:type="PQ" value ="10" /> <referenceRange> < observationRange> <text>5-15</text> </ observationRange> </referenceRange> </observation&gt ; </component> <component> <observation moodCode ="EVN" classCode="OBS"> <templateId root=& quot;2.16.840.1.515709.10.20.22.4.2" /> <id nullFlavor=&quot ;NA" /> <code codeSystem="local" code="eCrCl& quot; displayName="EST CrCl (CG)" /> <statusCode code=& quot;completed" /> <effectiveTime value="656863395646& quot; /> <value unit="mL/min" xsi:type="PQ" value="> 60" /> <referenceRange> < observationRange> <text>> 59</text> </observationRange> </referenceRange> </ observation> </component> <component> < observation moodCode="EVN"classCode="OBS"> < templateId root="2.16.840.1.012119.10..22.4.2" /> < id nullFlavor="NA" /> <code codeSystem="local&quot ; code="GLU" displayName="GLUCOSE" /> < statusCode code="completed" /> <effectiveTime value=& quot;218225841234" /> <value unit="mg/dL" xsi:type ="PQ" value="127" /> <interpretationCode codeSystem="local" code="*" /> < referenceRange><observationRange> <text>70-99</ text> </observationRange> </referenceRange> </observation> </component> <component> <observation moodCode="EVN" classCode="OBS"> <templateId root="2.16.840.1.220122.10..22.4.2" /> <id nullFlavor="NA" /> <code codeSystem=" local" code="CA" displayName="CALCIUM" /> & lt;statusCode code="completed" /> <effectiveTime value= "203608478411" /> <value unit="mg/dL" xsi: type="PQ" value="8.9" /> <referenceRange> <observationRange> <text>8.5-10.1</text&gt ; </observationRange> </referenceRange> & lt;/observation> </component> <component> < observation moodCode="EVN" classCode="OBS"> < templateId root="2.16.840.1.621573.10.20.22.4.2" /> < id nullFlavor="NA" /> <code codeSystem="local&quot ; code="BUN" displayName="BLOOD UREA NITROGEN" /> <statusCode code="completed" /> <effectiveTime value="218169871546" /> <value unit="mg/dL" xsi:type="PQ" value="18" /> <referenceRange& gt; <observationRange> <text>7-20</text& gt; </observationRange> </referenceRange> & lt;/observation> </component> <component> < observation moodCode="EVN" classCode="OBS"> < templateId root="2.16.840.1.247412.10..22.4.2" /> < id nullFlavor="NA" /> <code codeSystem="local&quot ; code="CREAT" displayName="CREATININE" /> < statusCode code="completed" /> <effectiveTime value=& quot;316809881796" /> <value unit="mg/dL" xsi:type ="PQ" value="1.1" /> <interpretationCode codeSystem="local" code="*" /> < referenceRange> <observationRange> <text> 0.6-1.0</text> </observationRange> </referenceRange > </observation> </component> <component> <observation moodCode="EVN" classCode="OBS"> <templateId root="2.16.840.1.997006.10.20.22.4.2" /> & lt;id nullFlavor="NA" /> <code codeSystem="local& quot; code="NA" displayName="SODIUM" /> < statusCode code="completed" /> <effectiveTime value=& quot;763653030366" /> <value unit="mmol/L" xsi: type="PQ" value="139" /> <referenceRange>& lt;observationRange> <text>135-148</text> </observationRange> </referenceRange> </ observation> </component> <component> < observation moodCode="EVN" classCode="OBS">< templateId root="2.16.840.1.942902.10.20.22.4.2" /> < id nullFlavor="NA" /> <code codeSystem="local&quot ; code="CL" displayName="CHLORIDE" /> < statusCode code="completed" /> <effectiveTime value=& quot;146090331822" /> <value unit="mmol/L" xsi: type="PQ" value="111" /> <interpretationCode codeSystem="local" code="*" /> < referenceRange> <observationRange><text>98-110</ text> </observationRange> </referenceRange> </observation> </component> <component> <observation moodCode="EVN" classCode="OBS"> <templateId root="2.16.840.1.281519.10.20.22.4.2" /> <id nullFlavor="NA" /> <code codeSystem=" local" code="CO2" displayName="CARBON DIOXIDE" /> <statusCode code="completed" /> < effectiveTime value="382850496704" /> <value unit=&quot ;mmol/L" xsi:type="PQ" value="18" /> < interpretationCode codeSystem="local" code="*" /> <referenceRange> <observationRange> < text>21-32</text> </observationRange> </ referenceRange> </observation></component> < component> <observation moodCode="EVN" classCode=" OBS"> <templateId root="2.16.840.1.796715.10.20.22.4.2& quot; /> <id nullFlavor="NA" /> <code codeSystem="local" code="ALB" displayName="ALBUMIN&quot ; /> <statusCode code="completed" /> < effectiveTime value="498883920381" /> <value unit=&quot ;gm/dL" xsi:type="PQ" value="3.4" /> < referenceRange> <observationRange> <text>3.4-5.0& lt;/text> </observationRange> </referenceRange& gt; </observation> </component><component> <observation moodCode="EVN" classCode="OBS"> < templateId root="2.16.840.1.233274.10.20.22.4.2" /> < id nullFlavor="NA" /> <code codeSystem="local&quot ; code="PHOS" displayName="PHOSPHORUS" /> < statusCode code="completed" /> <effectiveTime value=& quot;055457099638" /> <value unit="mg/dL" xsi:type ="PQ" value="4.2" /> <referenceRange> <observationRange> <text>2.5-4.9</text> </observationRange></referenceRange> </ observation> </component> </organizer> </entry> & lt;entry> <organizer moodCode="EVN" classCode="BATTERY& quot;> <templateId root="2.16.840.1.713719.10.20.22.4.1" /& gt; <id nullFlavor="NA" /> <code codeSystem=" local" code="MAG" displayName="MAGNESIUM" /> & lt;statusCode code="completed" /> <component> < observation moodCode="EVN" classCode="OBS"> < templateId root="2.16.840.1.704916.10.20.22.4.2" /> < id nullFlavor="NA" /> <code codeSystem="local&quot ; code="MAG" displayName="MAGNESIUM" /> < statusCode code="completed" /> <effectiveTime value=& quot;830641858964" /> <value unit="mg/dL" xsi:type ="PQ" value="2.1" /> <referenceRange> <observationRange><text>1.8-2.4</text> < /observationRange> </referenceRange> </observation& gt; </component> </organizer> </entry> <entry&gt ; <organizer moodCode="EVN" classCode="BATTERY"> <templateId root="2.16.840.1.639908.10.20.22.4.1" /> & lt;id nullFlavor="NA" /> <code codeSystem="local" code="LCMPH" displayName="L200.0010" /> < statusCode code="completed" /> <component> < observation moodCode="EVN" classCode="OBS"> < templateId root="2.16.840.1.570311.10.20.22.4.2" /> < id nullFlavor="NA" /> <code codeSystem="local&quot ; code="300.0400" displayName="FUNGAL CULTURE." /> <statusCode code="completed" /> <effectiveTime value ="388817747330" /> <value unit="MG/DL" xsi: type="PQ" value="1.1" /> <referenceRange> <observationRange> <text>0.7-1.2</text& gt; </observationRange> </referenceRange></ observation> </component> <component> < observation moodCode="EVN" classCode="OBS"> < templateId root="2.16.840.1.938575.10.20.22.4.2" /> < id nullFlavor="NA" /> <code codeSystem="local&quot ; code="300.0450" displayName="FUNGAL CULTURE, BLOOD." /&gt ; <statusCode code="completed" /> <effectiveTime value="847101016652" /> <value unit="RATIO" xsi:type="PQ" value="15"/> <referenceRange&gt ; <observationRange> <text>6-26</text&gt ; </observationRange> </referenceRange> & lt;/observation> </component> <component> < observation moodCode="EVN" classCode="OBS"> < templateId root="2.16.840.1.578194.10.20.22.4.2" /> < id nullFlavor="NA" /> <code codeSystem="local&quot ; code="300.0100" displayName="NA - Sodium" /> & lt;statusCode code="completed" /> <effectiveTime value= "549779689918" /> <value unit="MEQ/L" xsi:type=& quot;PQ" value="140" /> <referenceRange> <observationRange> <text>134-144</text> </observationRange> </referenceRange> </ observation> </component> <component> < observation moodCode="EVN" classCode="OBS"> < templateId root="2.16.840.1.394612.10.20.22.4.2" /> <id nullFlavor="NA" /> <code codeSystem="local" code="300.0150" displayName="Potassium" /> < statusCode code="completed" /> <effectiveTime value=& quot;290236880592" /> <value unit="MEQ/L" xsi:type ="PQ" value="3.4" /> <interpretationCode codeSystem="local" code="*" /> < referenceRange> <observationRange> <text> 3.6-5</text> </observationRange> </ referenceRange> </observation> </component> < component> <observation moodCode="EVN" classCode=" OBS"> <templateId root="2.16.840.1.629139.10.20.22.4.2& quot; /> <id nullFlavor="NA" /> <code codeSystem="local" code="300.0200" displayName=" Chloride" /> <statusCode code="completed" /> <effectiveTime value="946479705464" /> < value unit="MEQ/L" xsi:type="PQ" value="110" /&gt ; <interpretationCode codeSystem="local" code="*&quot ; /> <referenceRange> <observationRange> &lt ;text>98-107</text> </observationRange> </ referenceRange> </observation> </component> < component> <observationmoodCode="EVN" classCode="OBS "> <templateId root="2.16.840.1.584753.10.20.22.4.2& quot; /> <id nullFlavor="NA" /> <code codeSystem="local" code="300.0250" displayName="CO2 - Carbon Dioxide" /> <statusCode code="completed" /& gt; <effectiveTime value="020439788489" /> &lt ;value unit="MEQ/L" xsi:type="PQ" value="19" /&gt ; <interpretationCode codeSystem="local" code="*&quot ; /> <referenceRange> <observationRange> <text>22-30</text> </observationRange> </referenceRange> </observation> </component&gt ; <component> <observation moodCode="EVN" classCode="OBS"> <templateId root=" 2.16.840.1.497895.10.20.22.4.2" /> <id nullFlavor="NA& quot; /> <code codeSystem="local" code="300.0300& quot; displayName="Anion Gap" /> <statusCode code=&quot ;completed" /> <effectiveTime value="207772486552&quot ; /> <value unit="MEQ/L" xsi:type="PQ" value= "11" /> <referenceRange> < observationRange> <text>5-15</text></ observationRange> </referenceRange> </observation&gt ; </component> <component> <observation moodCode ="EVN" classCode="OBS"> <templateId root=& quot;2.16.840.1.526440.10..22.4.2" /> <id nullFlavor=&quot ;NA" /> <code codeSystem="local" code=" 300.0350" displayName="BUN - Blood Urea Nitrogen" /> <statusCode code="completed" /> <effectiveTime value ="769652068298" /> <value unit="MG/DL" xsi: type="PQ" value="16.0" /> <referenceRange&gt ; <observationRange> <text>7-17</text&gt ; </observationRange> </referenceRange> & lt;/observation> </component> <component> < observation moodCode="EVN" classCode="OBS"> < templateId root="[id number]" /> < idnullFlavor="NA" /> <code codeSystem="local&quot ; code="300.0410" displayName="Glomerular Filtration Rate" / > <statusCode code="completed" /> < effectiveTime value="[id number]" /> <value unit=&quot ;" xsi:type="PQ" value="58" /> < referenceRange> <observationRange> <text> NRG</text> </observationRange> </ referenceRange> </observation> </component> < component> <observation moodCode="EVN" classCode=" OBS"> <templateId root="[id number]&quot ; /> <id nullFlavor="NA" /> <code codeSystem="local" code="300.0500" displayName="Glucose " /> <statusCode code="completed" /> & lt;effectiveTime value="285991690322" /> <value unit=& quot;MG/DL" xsi:type="PQ" value="110" /> & lt;referenceRange> <observationRange> <text& gt;65-110</text> </observationRange> </referenceRange > </observation> </component> <component> <observation moodCode="EVN" classCode="OBS"> <templateId root="2.16.840.1.711672.10.20.22.4.2" /> <id nullFlavor="NA" /> <code codeSystem=&quot ;local" code="300.2000" displayName="Osmolality,Calculated& quot; /> <statusCode code="completed" /> & lt;effectiveTime value="075398499207" /> <value unit=& quot;MOSM/KG" xsi:type="PQ" value="271" /> <referenceRange> <observationRange> <text >261-280</text> </observationRange> </ referenceRange> </observation> </component> < component> <observation moodCode="EVN" classCode="OBS& quot;> <templateId root="2.16.840.1.585553.10.20.22.4.2&quot ; /> <id nullFlavor="NA" /> <code codeSystem="local" code="300.2200" displayName="Calcium " /> <statusCode code="completed" /> & lt;effectiveTime value="193042491639" /> <value unit=& quot;MG/DL" xsi:type="PQ" value="9.2" /> & lt;referenceRange> <observationRange> <text>8.4-10.2& lt;/text> </observationRange> </referenceRange& gt; </observation> </component> <component> <observation moodCode="EVN" classCode="OBS"> <templateId root="2.16.840.1.320969.10.20.22.4.2" /> <id nullFlavor="NA" /> <code codeSystem=&quot ;local" code="300.2700" displayName="Bilirubin,Total" / > <statusCode code="completed" /> < effectiveTime value="100954007012" /> <value unit=&quot ;MG/DL" xsi:type="PQ" value="0.80" /> < referenceRange> <observationRange> <text> 0.20-1.30</text> </observationRange> </ referenceRange> </observation> </component> < component> <observation moodCode="EVN" classCode=" OBS"> <templateId root="2.16.840.1.553920.10.20.22.4.2& quot; /> <id nullFlavor="NA" /> <code codeSystem="local" code="300.2800" displayName=" Bilirubin,Unconjugated" /> <statusCode code="completed& quot; /> <effectiveTime value="032292222870" /> <value unit="MG/DL" xsi:type="PQ" value="0.60& quot; /> <referenceRange> <observationRange> <text>0.00-11.10</text> </ observationRange> </referenceRange> </observation> </component> <component> <observation moodCode=& quot;EVN" classCode="OBS"> <templateId root=" 2.16.840.1.164420.10.20.22.4.2" /> <id nullFlavor="NA& quot; /> <code codeSystem="local" code="300.2825& quot; displayName="Bilirubin,Conjugated" /> <statusCode code ="completed" /> <effectiveTime value="366177770304 " /> <value unit="MG/DL" xsi:type="PQ" value="0.00" /> <referenceRange> < observationRange> <text>0.00-0.30</text> </observationRange> </referenceRange> </observation> </component> <component> <observation moodCode= "EVN" classCode="OBS"> <templateId root=&quot ;2.16.840.1.570970.10.20.22.4.2" /> <id nullFlavor="NA& quot; /> <code codeSystem="local" code="300.2975& quot; displayName="Alkaline Phosphatase" /> <statusCode code=& quot;completed" /> <effectiveTime value="721778612089& quot; /> <value unit="U/L" xsi:type="PQ" value="94" /> <referenceRange> < observationRange> <text>38-126</text> &lt ;/observationRange> </referenceRange> </observation& gt; </component> <component> <observation moodCode="EVN" classCode="OBS"> <templateId root="2.16.840.1.335907.10.20.22.4.2" /> <id nullFlavor ="NA" /> <code codeSystem="local" code=" 300.3050" displayName="AST - Aspartate Amino Transfer" /> &lt ;statusCode code="completed" /> <effectiveTime value=& quot;719175234633" /> <value unit="U/L" xsi:type=& quot;PQ" value="17" /> <referenceRange> <observationRange> <text>14-36</text> </observationRange> </referenceRange> </ observation> </component> <component> < observation moodCode="EVN" classCode="OBS"> < templateId root="2.16.840.1.741928.10.20.22.4.2" /> < id nullFlavor="NA" /> <code codeSystem="local&quot ; code="300.3100" displayName="ALT" /> < statusCode code="completed" /> <effectiveTime value=& quot;119603571742" /> <value unit="U/L" xsi:type=& quot;PQ" value="47" /> <referenceRange> <observationRange> <text>9-52</text> </observationRange> </referenceRange> </ observation> </component> <component> < observation moodCode="EVN" classCode="OBS"> < templateId root="2.16.840.1.086562.10.20.22.4.2" /> < id nullFlavor="NA" /> <code codeSystem="local&quot ; code="300.3110" displayName="TP - Total Protein" /> <statusCode code="completed" /> < effectiveTime value="602226722693" /> <value unit=&quot ;G/DL" xsi:type="PQ" value="7.0" /> < referenceRange> <observationRange> <text>6.3- 8.2</text> </observationRange> </ referenceRange> </observation> </component> < component> <observation moodCode="EVN" classCode=" OBS"> <templateId root="2.16.840.1.891847.10.20.22.4.2&quot ; /> <id nullFlavor="NA" /> <code codeSystem="local" code="300.3120" displayName=" Albumin Level" /> <statusCode code="completed" /& gt; <effectiveTime value="482627951122" /> <value unit="G/DL" xsi:type="PQ" value="4.3" /> <referenceRange> <observationRange> < text>3.5-5.0</text> </observationRange> </ referenceRange> </observation> </component> < component> <observation moodCode="EVN" classCode=" OBS"> <templateId root="2.16.840.1.082532.10.20.22.4.2& quot; /> <id nullFlavor="NA" /> <code codeSystem="local" code="300.3130" displayName=" Globulin" /> <statusCode code="completed" /> <effectiveTime value="554694039704" /> < value unit="G/DL" xsi:type="PQ" value="2.7" /> <referenceRange> <observationRange> & lt;text>2.4-3.6</text> </observationRange> & lt;/referenceRange> </observation> </component> <component> <observation moodCode="EVN" classCode=& quot;OBS"> <templateId root=" 2.16.840.1.738435.10.20.22.4.2" /> <id nullFlavor="NA& quot; /> <code codeSystem="local" code="300.3140& quot; displayName="Albumin/Globulin Ratio" /> < statusCode code="completed" /> <effectiveTime value=& quot;895142061075" /> <value unit="RATIO" xsi:type ="PQ" value="1.6" /> <referenceRange> <observationRange> <text>1.1-2.2</text> </observationRange> </referenceRange> </ observation> </component> <component> < observation moodCode="EVN" classCode="OBS"> < templateId root="2.16.840.1.400445.10.20.22.4.2" /> < id nullFlavor="NA" /> <code codeSystem="local&quot ; code="300.0095" displayName="LICTERUS" /> < statusCode code="completed" /> <effectiveTime value=& quot;620965701354" /> <value unit="" xsi:type=& quot;PQ" value="< 2" /> <referenceRange&gt ; <observationRange> <text>0-7</text> </observationRange> </referenceRange> & lt;/observation> </component> <component> < observation moodCode="EVN" classCode="OBS"> < templateId root="2.16.840.1.437513.10.20.22.4.2" /> < id nullFlavor="NA" /> <code codeSystem="local&quot ; code="300.0096" displayName="LHEMOLYSIS" /> & lt;statusCode code="completed" /> <effectiveTime value= "369460028548" /> <value unit="" xsi:type=" PQ" value="< 15" /> <referenceRange> <observationRange> <text>0-25</text> </observationRange> </referenceRange> </ observation> </component> <component> < observation moodCode="EVN" classCode="OBS"> < templateId root="2.16.840.1.058638.10.20.22.4.2" /> < id nullFlavor="NA" /> <code codeSystem="local&quot ; code="300.0097" displayName="LTURBIDITY" /> & lt;statusCode code="completed" /> <effectiveTime value= "838386406368" /> <value unit="" xsi:type=& quot;PQ" value="< 20" /> <referenceRange&gt ; <observationRange> <text>0-20</text&gt ; </observationRange> </referenceRange> & lt;/observation> </component> </organizer> </entry&gt ; <entry> <organizer moodCode="EVN" classCode=" BATTERY"> <templateId root="2.16.840.1.449619.10.20.22.4.1& quot; /> <id nullFlavor="NA" /> <code codeSystem ="local" code="LCBC" displayName="L100.0050" /&gt ; <statusCode code="completed" /> <component> <observation moodCode="EVN" classCode="OBS"> <templateId root="2.16.840.1.625360.10.20.22.4.2" /> <id nullFlavor="NA" /> <code codeSystem=" local" code="100.0150" displayName="WBC - WHITE BLOOD COUNT& quot; /> <statusCode code="completed" /> & lt;effectiveTime value="967603144745" /> <value unit=& quot;T/MM3" xsi:type="PQ" value="14.5" /> & lt;interpretationCode codeSystem="local" code="*" /> <referenceRange> <observationRange> <text> 4.5-11.0</text> </observationRange> </ referenceRange> </observation> </component> < component> <observation moodCode="EVN" classCode=" OBS"> <templateId root="2.16.840.1.929109.10.20.22.4.2" / > <id nullFlavor="NA" /> <code codeSystem="local" code="100.0250" displayName="RED BLOOD COUNT" /> <statusCode code="completed" /&gt ; <effectiveTime value="512785952455" /> <value unit="M/MM3" xsi:type="PQ" value="4.59" /> <referenceRange> <observationRange> & lt;text>4.00-5.20</text> </observationRange> </referenceRange> </observation> </component> <component> <observation moodCode="EVN" classCode=& quot;OBS"> <templateId root=" 2.16.840.1.532598.10.20.22.4.2" /> <id nullFlavor="NA& quot; /> <code codeSystem="local" code="100.0300& quot; displayName="HGB - HEMOGLOBIN" /> <statusCode code="completed" /> <effectiveTime value=" 589529371710" /> <value unit="GM/DL" xsi:type=& quot;PQ" value="13.2" /> <referenceRange> <observationRange> <text>12-16</text> </observationRange></referenceRange> </observation > </component> <component> <observation moodCode ="EVN" classCode="OBS"> <templateId root=& quot;2.16.840.1.313598.10.20.22.4.2" /> <id nullFlavor=&quot ;NA" /> <code codeSystem="local" code=" 100.0400" displayName="HCT - HEMATOCRIT" /> < statusCode code="completed" /> <effectiveTime value=& quot;088928624830" /> <value unit="%" xsi: type="PQ" value="38.1" /> <referenceRange&gt ; <observationRange> <text>36-46</text&gt ; </observationRange> </referenceRange> & lt;/observation> </component> <component> < observation moodCode="EVN" classCode="OBS"> < templateId root="2.16.840.1.068840.10.20.22.4.2" /> < id nullFlavor="NA" /> <code codeSystem="local" code=& quot;100.0550" displayName="MEAN CORPUSCULARVOLUME" /> <statusCode code="completed" /> <effectiveTime value="847656259311" /> <value unit="UM3" xsi :type="PQ" value="83.0" /> <referenceRange&gt ; <observationRange> <text>80-100</text> </observationRange> </referenceRange> & lt;/observation> </component> <component> < observation moodCode="EVN" classCode="OBS"> < templateId root="2.16.840.1.519795.10.20.22.4.2" /> < id nullFlavor="NA" /> <code codeSystem="local&quot ; code="100.0600" displayName="MEAN CORPUSCULAR HGB" /> <statusCode code="completed" /> < effectiveTime value="891925876333" /> <value unit=&quot ;UUG" xsi:type="PQ" value="28.8" /> < referenceRange> <observationRange> <text>26-34</ text> </observationRange> </referenceRange> </observation> </component> <component> <observationmoodCode="EVN" classCode="OBS"> <templateId root="2.16.840.1.389374.10.20.22.4.2" /> <id nullFlavor="NA" /> <code codeSystem=" local" code="100.0650" displayName="MEAN CORPUSCULAR HGB CONC(MCHC" /> <statusCode code="completed" /> <effectiveTime value="289232851790" /> < value unit="GM/DL" xsi:type="PQ" value="34.6" /&gt ; <referenceRange> <observationRange> < text>31-37</text> </observationRange> </ referenceRange> </observation> </component> < component> <observation moodCode="EVN" classCode=" OBS"> <templateId root="2.16.840.1.107672.10.20.22.4.2& quot; /> <id nullFlavor="NA" /> < codecodeSystem="local" code="100.0750" displayName=" RDW STANDARD DEVIATION" /> <statusCode code="completed& quot; /> <effectiveTime value="707978108259" /> <value unit="FL" xsi:type="PQ" value="39.0& quot; /> <referenceRange> <observationRange> <text>36.9-50.2</text> </ observationRange> </referenceRange> </observation&gt ; </component> <component> <observation moodCode ="EVN" classCode="OBS"> <templateId root=& quot;2.16.840.1.984598.10.20.22.4.2" /> <id nullFlavor=&quot ;NA" /> <code codeSystem="local" code=" 100.0850" displayName="PLT - PLATELET COUNT" /> < statusCode code="completed" /> <effectiveTime value=& quot;295661905844" /> <value unit="T/MM3" xsi:type ="PQ" value="304" /> <referenceRange> <observationRange> <text>130-400</text> </observationRange> </referenceRange> </ observation> </component> <component> < observation moodCode="EVN" classCode="OBS"> < templateId root="2.16.840.1.358266.10.20.22.4.2" /> < id nullFlavor="NA" /> <code codeSystem="local&quot ; code="100.0950" displayName="MEAN PLATELET VOLUME" /> <statusCode code="completed" /> <effectiveTime value="002565944026" /> <value unit="UM3" xsi :type="PQ" value="9.1"/> <interpretationCode codeSystem="local" code="*" /><referenceRange> <observationRange> <text>9.4-12.4</text> </observationRange> </referenceRange> & lt;/observation> </component> <component> < observation moodCode="EVN" classCode="OBS"> < templateId root="2.16.840.1.765413.10.20.22.4.2" /> < id nullFlavor="NA" /> <code codeSystem="local&quot ; code="100.1050" displayName="NEUTROPHILS % (AUTO)&quot ; /> <statusCode code="completed" /> < effectiveTime value="108203245546" /> <value unit=&quot ;%" xsi:type="PQ" value="83.8" /> &lt ;interpretationCode codeSystem="local" code="*" /> <referenceRange> <observationRange> < text>33-66</text> </observationRange> </ referenceRange> </observation> </component> < component> <observation moodCode="EVN" classCode=" OBS"> <templateId root="2.16.840.1.586577.10.20.22.4.2& quot; /> <id nullFlavor="NA" /> <code codeSystem ="local" code="100.1100" displayName="LYMPHOCYTES & #37; (AUTO)" /> <statusCode code="completed" /&gt ; <effectiveTime value="634201328427" /><value unit= "%" xsi:type="PQ" value="10.9" /> <interpretationCode codeSystem="local" code="*" /&gt ; <referenceRange> <observationRange> <text>23-45</text> </observationRange> </referenceRange> </observation> </component> <component> <observation moodCode="EVN" classCode= "OBS"> <templateId root=" 2.16.840.1.984887.10.20.22.4.2" /> <id nullFlavor="NA& quot; /> <code codeSystem="local" code="100.1150& quot; displayName="MONOCYTES % (AUTO)" /> < statusCode code="completed" /> <effectiveTime value=& quot;599280522361" /> <value unit="%" xsi: type="PQ" value="4.0" /> <referenceRange> <observationRange> <text>0-9.0</text&gt ; </observationRange> </referenceRange> & lt;/observation> </component> <component> < observation moodCode="EVN" classCode="OBS"> < templateId root="2.16.840.1.854362.10.20.22.4.2" /> < id nullFlavor="NA" /> <code codeSystem="local&quot ; code="100.1200" displayName="EOSINOPHILS % (AUTO)&quot ; /> <statusCode code="completed" /> < effectiveTime value="132435069688" /> <value unit=&quot ;%" xsi:type="PQ" value="0.7" /> & lt;referenceRange> <observationRange> <text& gt;0-4</text></observationRange> </referenceRange> </observation> </component> <component> <observation moodCode="EVN" classCode="OBS"> <templateId root="2.16.840.1.191070.10.20.22.4.2" /> <id nullFlavor="NA" /> <code codeSystem=" local" code="100.1250" displayName="BASOPHILS % ( AUTO)" /> <statusCode code="completed" /> <effectiveTime value="700078673341" /> <value unit="%" xsi:type="PQ" value="0.2" /> <referenceRange> <observationRange> <text>0-2</text></observationRange> </ referenceRange> </observation> </component> < component> <observation moodCode="EVN" classCode=" OBS"> <templateId root="2.16.840.1.871054.10.20.22.4.2& quot; /> <id nullFlavor="NA" /> <code codeSystem="local" code="100.1275" displayName=" IMMATURE GRANULOCYTE % (AUTO)" /> <statusCode code=& quot;completed" /> <effectiveTime value="430507067497& quot; /> <value unit="%" xsi:type="PQ" value ="0.4" /><referenceRange> <observationRange&gt ; <text>0.0-0.5</text> </observationRange > </referenceRange> </observation> </ component> <component> <observation moodCode="EVN& quot; classCode="OBS"> <templateId root=" 2.16.840.1.366060.10.20.22.4.2" /> <id nullFlavor="NA& quot; /> <code codeSystem="local" code="100.1300& quot; displayName="NEUTROPHILS # (AUTO)" /> < statusCode code="completed" /> <effectiveTime value=& quot;559393183322" /> <value unit="T/MM3" xsi:type="PQ " value="12.1" /> <interpretationCode codeSystem=& quot;local" code="*" /> <referenceRange> <observationRange> <text>1.8-7.7</text> </observationRange> </referenceRange> </ observation> </component> <component> < observation moodCode="EVN" classCode="OBS"> < templateId root="2.16.840.1.882557.10.20.22.4.2" /> < id nullFlavor="NA" /> <code codeSystem="local&quot ; code="100.1350" displayName="LYMPHOCYTES # (AUTO)" /> <statusCode code="completed" /> < effectiveTime value="231463360167" /> <value unit=&quot ;T/MM3" xsi:type="PQ" value="1.6" /> < referenceRange> <observationRange> <text>1- 4.8</text> </observationRange> </ referenceRange> </observation> </component> < component> <observation moodCode="EVN" classCode=" OBS"> <templateId root="2.16.840.1.877389.10.20.22.4.2&quot ; /> <id nullFlavor="NA" /> <code codeSystem="local" code="100.1400" displayName=" MONOCYTES # (AUTO)" /> <statusCode code="completed&quot ; /> <effectiveTime value="774758648749" /> & lt;value unit="T/MM3" xsi:type="PQ" value="0.6" /& gt; <referenceRange> <observationRange> <text>0-0.8</text> </observationRange> </referenceRange> </observation> </component> <component> <observation moodCode="EVN" classCode="OBS"> <templateId root=" 2.16.840.1.108360.10.20.22.4.2" /> <id nullFlavor="NA& quot; /> <code codeSystem="local" code="100.1450& quot; displayName="EOSINOPHILS # (AUTO)" /> < statusCode code="completed" /><effectiveTime value=" 442197307903" /> <value unit="T/MM3" xsi:type=& quot;PQ" value="0.1" /> <referenceRange> <observationRange> <text>0-0.5</text> </observationRange> </referenceRange> </ observation> </component> <component> < observation moodCode="EVN" classCode="OBS"> < templateId root="2.16.840.1.190445.10.20.22.4.2" /> < id nullFlavor="NA" /> <code codeSystem="local&quot ; code="100.1500" displayName="BASOPHILS # (AUTO)" /> <statusCode code="completed" /> < effectiveTime value="127339892501" /> <value unit=&quot ;T/MM3" xsi:type="PQ" value="0.0" /> < referenceRange> <observationRange> <text> 0-0.2</text> </observationRange> </ referenceRange> </observation> </component> < component> <observation moodCode="EVN" classCode=" OBS"> <templateId root="2.16.840.1.749239.10.20.22.4.2& quot; /> <id nullFlavor="NA" /> <code codeSystem="local" code="100.1525" displayName=" IMMATURE GRANULOCYTE # (AUTO)" /> <statusCode code=" completed" /> <effectiveTime value="769423615293" /> <value unit="T/MM3" xsi:type="PQ" value=& quot;0.06" /> <interpretationCode codeSystem="local& quot;code="*" /> <referenceRange> < observationRange> <text>0.00-0.03</text> </ observationRange> </referenceRange> </observation&gt ; </component> </organizer> </entry> <entry> <organizer moodCode="EVN" classCode="BATTERY"> <templateId root="2.16.840.1.964927.10.20.22.4.1" /> < id nullFlavor="NA" /> <code codeSystem="local" code="LCBC" displayName="L100.0050" /> < statusCode code="completed" /> <component> < observation moodCode="EVN" classCode="OBS"> < templateId root="2.16.840.1.951470.10.20.22.4.2" /> < id nullFlavor="NA" /> <code codeSystem="local&quot ; code="100.0150" displayName="WBC - WHITE BLOOD COUNT" /&gt ; <statusCode code="completed" /> < effectiveTime value="492697700555" /> <value unit=&quot ;T/MM3" xsi:type="PQ" value="11.4" /> < interpretationCode codeSystem="local" code="*" /> <referenceRange> <observationRange> < text>4.5-11.0</text> </observationRange> < /referenceRange> </observation> </component> < component> <observation moodCode="EVN" classCode=" OBS"> <templateId root="2.16.840.1.258108.10.20.22.4.2& quot; /> <id nullFlavor="NA" /> <code codeSystem="local" code="100.0250" displayName="RED BLOOD COUNT" /> <statusCode code="completed" /&gt ; <effectiveTime value="078647031659" /> < value unit="M/MM3" xsi:type="PQ" value="4.83" /&gt ; <referenceRange> <observationRange> <text>4.00-5.20</text> </observationRange> </referenceRange> </observation> </component&gt ; <component> <observation moodCode="EVN" classCode="OBS"> <templateId root=" 2.16.840.1.292266.10.20.22.4.2" /> <id nullFlavor="NA& quot; /> <code codeSystem="local" code="100.0300& quot; displayName="HGB - HEMOGLOBIN" /> <statusCode code="completed" /> <effectiveTime value=" 356947167332" /> <value unit="GM/DL" xsi:type=& quot;PQ" value="13.7" /> <referenceRange> <observationRange> <text>12-16</text> </observationRange> </referenceRange> </ observation> </component> <component> < observation moodCode="EVN" classCode="OBS"> < templateId root="2.16.840.1.804959.10.20.22.4.2" /> < id nullFlavor="NA" /> <code codeSystem="local&quot ; code="100.0400" displayName="HCT - HEMATOCRIT" /> <statusCode code="completed" /> <effectiveTime value="708145136372" /> <value unit="%& quot; xsi:type="PQ" value="40.7" /> < referenceRange> <observationRange> <text> 36-46</text> </observationRange> </ referenceRange> </observation> </component> < component> <observation moodCode="EVN" classCode=" OBS"> <templateId root="2.16.840.1.526492.10.20.22.4.2& quot; /> <id nullFlavor="NA" /> <code codeSystem="local" code="100.0550" displayName="MEAN CORPUSCULAR VOLUME" /> <statusCode code="completed&quot ; /> <effectiveTime value="832187718705" /> <value unit="UM3" xsi:type="PQ" value="84.3" /> <referenceRange> <observationRange> <text>80-100</text> </observationRange> & lt;/referenceRange> </observation> </component> <component> <observation moodCode="EVN" classCode=& quot;OBS"> <templateId root=" 2.16.840.1.468343.10.20.22.4.2" /> <id nullFlavor="NA" /&gt ; <code codeSystem="local" code="100.0600" displayName="MEAN CORPUSCULAR HGB" /> <statusCode code= "completed" /> <effectiveTime value="311355723954& quot; /> <value unit="UUG" xsi:type="PQ" value="28.4" /> <referenceRange> < observationRange> <text>26-34</text> < /observationRange> </referenceRange> </observation& gt; </component> <component> <observation moodCode="EVN" classCode="OBS"> <templateId root="2.16.840.1.955705.10.20.22.4.2" /> <id nullFlavor ="NA" /> <code codeSystem="local" code=" 100.0650" displayName="MEAN CORPUSCULAR HGB CONC(MCHC" /> <statusCode code="completed" /> < effectiveTime value="674047776137" /> <value unit=&quot ;GM/DL" xsi:type="PQ" value="33.7" /> < referenceRange> <observationRange> <text> 31-37</text> </observationRange> </ referenceRange> </observation> </component> < component> <observation moodCode="EVN" classCode=" OBS"> <templateId root="2.16.840.1.148573.10.20.22.4.2& quot; /> <id nullFlavor="NA" /> <code codeSystem="local" code="100.0750" displayName="RDW STANDARD DEVIATION" /> <statusCode code="completed&quot ; /> <effectiveTime value="265067328817" /> <value unit="FL" xsi:type="PQ" value="39.2" / > <referenceRange> <observationRange> <text>36.9-50.2</text> </observationRange> </referenceRange> </observation> </component > <component> <observation moodCode="EVN" classCode="OBS"> <templateId root=" 2.16.840.1.971602.10.20.22.4.2" /> <id nullFlavor="NA& quot; /> <code codeSystem="local" code="100.0850& quot; displayName="PLT - PLATELET COUNT" /> < statusCode code="completed" /> <effectiveTime value=& quot;275354152723" /> <value unit="T/MM3" xsi:type ="PQ" value="305" /> <referenceRange> <observationRange> <text>130-400</text> </observationRange> </referenceRange> </ observation> </component> <component> < observation moodCode="EVN" classCode="OBS"> < templateId root="2.16.840.1.874854.10.20.22.4.2" /> < id nullFlavor="NA" /> <code codeSystem="local&quot ; code="100.0950" displayName="MEAN PLATELET VOLUME" /> <statusCode code="completed" /> < effectiveTime value="[id number]" /> <value unit=&quot ;UM3" xsi:type="PQ" value="9.3" /> < interpretationCode codeSystem="local" code="*" /> <referenceRange> <observationRange> < text>9.4-12.4</text> </observationRange> </ referenceRange> </observation> </component> < component> <observation moodCode="EVN" classCode="OBS "> <templateId root="[id number]& quot; /> <id nullFlavor="NA" /> <code codeSystem="local" code="100.1050" displayName=" NEUTROPHILS % (AUTO)" /> <statusCode code=" completed" /> <effectiveTime value="[id number]" /> <value unit="%" xsi:type="PQ" value="64.9" /> <referenceRange> < observationRange> <text>33-66</text> < /observationRange> </referenceRange> </observation> </component> <component> <observation moodCode= "EVN" classCode="OBS"> <templateId root=&quot ;2.16.840.1.911553.10.20.22.4.2" /> <id nullFlavor="NA& quot; /> <code codeSystem="local" code="100.1100& quot; displayName="LYMPHOCYTES % (AUTO)" /> < statusCode code="completed" /> <effectiveTime value=" 636282005362" /> <value unit="%" xsi:type= "PQ" value="21.5" /> <interpretationCode codeSystem="local" code="*" /> < referenceRange> <observationRange> <text> 23-45</text> </observationRange> </ referenceRange> </observation> </component> < component> <observation moodCode="EVN" classCode="OBS&quot ;> <templateId root="2.16.840.1.682446.10.20.22.4.2" /& gt; <id nullFlavor="NA" /> <code codeSystem=& quot;local" code="100.1150" displayName="MONOCYTES &#37 ; (AUTO)" /> <statusCode code="completed" /> <effectiveTime value="442945211575" /> < value unit="%" xsi:type="PQ" value="8.2" / > <referenceRange> <observationRange> <text>0-9.0</text> </observationRange> </referenceRange> </observation> </component&gt ; <component> <observation moodCode="EVN" classCode=& quot;OBS"> <templateId root=" 2.16.840.1.249083.10.20.22.4.2" /> <id nullFlavor="NA& quot; /> <code codeSystem="local" code="100.1200& quot; displayName="EOSINOPHILS % (AUTO)" /> < statusCode code="completed" /> <effectiveTime value=& quot;434061306549" /> <value unit="%" xsi: type="PQ" value="4.8" /> <interpretationCode codeSystem="local" code="*" /> < referenceRange> <observationRange> <text>0- 4</text> </observationRange> </referenceRange > </observation> </component> <component> <observation moodCode="EVN" classCode="OBS"> <templateId root="2.16.840.1.200027.10.20.22.4.2" /> <id nullFlavor="NA" /> <code codeSystem=& quot;local" code="100.1250" displayName="BASOPHILS &#37 ; (AUTO)" /> <statusCode code="completed" /> <effectiveTime value="461415199716" /> < value unit="%" xsi:type="PQ" value="0.3" / > <referenceRange> <observationRange> <text>0-2</text> </observationRange> </referenceRange> </observation> </component> <component> <observation moodCode="EVN" classCode=& quot;OBS"> <templateId root=" 2.16.840.1.919516.10.20.22.4.2" /> <id nullFlavor="NA& quot; /> <code codeSystem="local" code="100.1275& quot; displayName="IMMATURE GRANULOCYTE % (AUTO)" /> <statusCode code="completed" /> <effectiveTime value="439456879945" /> <value unit="%& quot; xsi:type="PQ" value="0.3" /> < referenceRange> <observationRange> <text> 0.0-0.5</text> </observationRange> </referenceRange&gt ; </observation> </component> <component> <observation moodCode="EVN" classCode="OBS"> <templateIdroot="2.16.840.1.919833.10.20.22.4.2" /> <id nullFlavor="NA" /> <code codeSystem=" local" code="100.1300" displayName="NEUTROPHILS # (AUTO)& quot; /> <statusCode code="completed" /> & lt;effectiveTime value="970627215261" /> <value unit=& quot;T/MM3" xsi:type="PQ" value="7.4" /> & lt;referenceRange> <observationRange> <text& gt;1.8-7.7</text> </observationRange> </ referenceRange> </observation> </component> < component><observation moodCode="EVN" classCode="OBS"& gt; <templateId root="2.16.840.1.905408.10.20.22.4.2" /&gt ; <id nullFlavor="NA" /> <code codeSystem=" local" code="100.1350" displayName="LYMPHOCYTES # (AUTO)& quot; /> <statusCode code="completed" /> & lt;effectiveTime value="911491986231" /> <value unit=& quot;T/MM3" xsi:type="PQ" value="2.5" /> & lt;referenceRange> <observationRange> <text> 1-4.8</text> </observationRange> </ referenceRange> </observation> </component> < component> <observation moodCode="EVN" classCode=" OBS"> <templateId root="2.16.840.1.398246.10.20.22.4.2& quot; /> <id nullFlavor="NA" /> <code codeSystem="local" code="100.1400" displayName=" MONOCYTES # (AUTO)" /> <statusCode code="completed&quot ; /> <effectiveTime value="715139642491" /> <value unit="T/MM3" xsi:type="PQ" value="0.9&quot ; /> <interpretationCode codeSystem="local" code=" *"/> <referenceRange> <observationRange&gt ; <text>0-0.8</text> </observationRange& gt; </referenceRange> </observation> </ component> <component> <observation moodCode="EVN& quot; classCode="OBS"> <templateId root=" 2.16.840.1.183206.10.20.22.4.2" /> <id nullFlavor="NA& quot; /> <code codeSystem="local" code="100.1450& quot; displayName="EOSINOPHILS # (AUTO)" /> < statusCode code="completed" /> <effectiveTime value=& quot;658247239401" /> <value unit="T/MM3" xsi:type ="PQ" value="0.6" /> <interpretationCode codeSystem="local" code="*" /> < referenceRange> <observationRange> <text> 0-0.5</text> </observationRange> </referenceRange&gt ; </observation> </component> <component> <observation moodCode="EVN" classCode="OBS"> <templateId root="2.16.840.1.868959.10.20.22.4.2" /> < id nullFlavor="NA" /> <code codeSystem="local&quot ; code="100.1500" displayName="BASOPHILS # (AUTO)" /> <statusCode code="completed" /> < effectiveTime value="544009388981" /> <value unit=&quot ;T/MM3" xsi:type="PQ" value="0.0" /> < referenceRange> <observationRange> <text> 0-0.2</text> </observationRange> </ referenceRange> </observation> </component> < component> <observation moodCode="EVN" classCode=" OBS"> <templateId root="2.16.840.1.755768.10.20.22.4.2& quot; /> <id nullFlavor="NA" /> <code codeSystem="local" code="100.1525" displayName=" IMMATURE GRANULOCYTE # (AUTO)" /> <statusCode code=" completed" /> <effectiveTime value="946219002020" /> <valueunit="T/MM3" xsi:type="PQ" value=& quot;0.03" /> <referenceRange> < observationRange> <text>0.00-0.03</text> </ observationRange> </referenceRange> </observation&gt ; </component> </organizer> </entry> <entry> <organizer moodCode="EVN" classCode="BATTERY"> <templateId root="2.16.840.1.725007.10.20.22.4.1" /> < id nullFlavor="NA" /> <code codeSystem="local" code="LCMP" displayName="L200.0020" /> < statusCode code="completed" /> <component> < observation moodCode="EVN" classCode="OBS"> < templateId root="2.16.840.1.413022.10.20.22.4.2" /> < id nullFlavor="NA" /> <code codeSystem="local&quot ; code="300.0400" displayName="FUNGAL CULTURE." /> <statusCode code="completed" /> <effectiveTime value="678901363169" /> <value unit="MG/DL" xsi:type="PQ" value="0.9" /> <referenceRange& gt; <observationRange> <text>0.7-1.2</text& gt; </observationRange> </referenceRange> </observation> </component> <component> &lt ;observation moodCode="EVN" classCode="OBS"> &lt ;templateId root="2.16.840.1.012266.10.20.22.4.2" /> < id nullFlavor="NA" /> <code codeSystem="local&quot ; code="300.0450" displayName="FUNGAL CULTURE, BLOOD." /&gt ; <statusCode code="completed" /> < effectiveTime value="392961218076" /> <value unit=&quot ;RATIO" xsi:type="PQ" value="16" /> < referenceRange> <observationRange> <text>6-26&lt ;/text> </observationRange> </referenceRange&gt ; </observation> </component> <component> <observation moodCode="EVN" classCode="OBS"> &lt ;templateId root="2.16.840.1.585383.10.20.22.4.2" /> < id nullFlavor="NA" /> <code codeSystem="local&quot ; code="300.0100" displayName="NA - Sodium" /> & lt;statusCode code="completed" /> <effectiveTime value= "074854111066" /> <value unit="MEQ/L" xsi: type="PQ" value="142" /> <referenceRange> <observationRange> <text>134-144</text& gt; </observationRange> </referenceRange> </ observation> </component> <component> < observation moodCode="EVN" classCode="OBS"> < templateId root="2.16.840.1.229320.10.20.22.4.2" /> < id nullFlavor="NA" /> <code codeSystem="local&quot ; code="300.0150" displayName="Potassium" /> &lt ;statusCode code="completed" /> <effectiveTime value=& quot;043628561361" /> <value unit="MEQ/L" xsi:type ="PQ"value="4.4" /> <referenceRange> <observationRange> <text>3.6-5</text> </observationRange> </referenceRange> </ observation> </component> <component> < observation moodCode="EVN" classCode="OBS"> < templateId root="2.16.840.1.699925.10.20.22.4.2" /> < id nullFlavor="NA" /> <code codeSystem="local&quot ; code="300.0200" displayName="Chloride" /> < statusCode code="completed" /> <effectiveTime value=& quot;917474916777" /> <value unit="MEQ/L" xsi:type ="PQ" value="106" /> <referenceRange> <observationRange> <text>98-107</text> </observationRange> </referenceRange> < /observation> </component> <component> < observation moodCode="EVN" classCode="OBS"> < templateId root="2.16.840.1.957239.10.20.22.4.2" /> < id nullFlavor="NA" /> <code codeSystem="local&quot ; code="300.0250" displayName="CO2 - Carbon Dioxide" /> <statusCode code="completed" /> < effectiveTime value="287519328221" /> <value unit=&quot ;MEQ/L" xsi:type="PQ" value="27" /> < referenceRange> <observationRange> <text> 22-30</text> </observationRange> </ referenceRange> </observation> </component> < component> <observation moodCode="EVN" classCode=" OBS"> <templateId root="2.16.840.1.921855.10.20.22.4.2& quot; /> <id nullFlavor="NA" /> <code codeSystem="local" code="300.0300" displayName="Anion Gap" /> <statusCode code="completed" /> <effectiveTime value="748433767111" /> <value unit="MEQ/L" xsi:type="PQ" value="9" /> <referenceRange> <observationRange> < text>5-15</text></observationRange> </referenceRange& gt; </observation> </component> <component> <observation moodCode="EVN" classCode="OBS"> <templateId root="2.16.840.1.550528.10.20.22.4.2" /> <id nullFlavor="NA" /> <code codeSystem=&quot ;local" code="300.0350" displayName="BUN - Blood Urea Nitrogen" /> <statusCode code="completed" /> <effectiveTime value="359233381235" /> < value unit="MG/DL" xsi:type="PQ" value="14.0" /&gt ; <referenceRange> <observationRange> <text>7-17</text> </observationRange> </referenceRange> </observation> </component> <component> <observation moodCode="EVN" classCode=& quot;OBS"> <templateId root=" 2.16.840.1.890590.10.20.22.4.2" /> <idnullFlavor="NA& quot; /> <code codeSystem="local" code="300.0410& quot; displayName="Glomerular Filtration Rate" /> < statusCode code="completed" /> <effectiveTime value=& quot;864312616840" /> <value unit="" xsi:type=& quot;PQ" value="74" /> <referenceRange> <observationRange> <text>NRG</text> </observationRange> </referenceRange> </ observation> </component> <component> < observation moodCode="EVN" classCode="OBS"> < templateId root="2.16.840.1.008395.10.20.22.4.2" /> < id nullFlavor="NA" /> <code codeSystem="local&quot ; code="300.0500" displayName="Glucose" /> < statusCode code="completed" /> <effectiveTime value=& quot;869379439000" /> <value unit="MG/DL" xsi:type ="PQ" value="92" /> <referenceRange> <observationRange> <text>65-110</text> </observationRange> </referenceRange> </ observation> </component> <component> < observation moodCode="EVN" classCode="OBS"> < templateIdroot="2.16.840.1.296763.10.20.22.4.2" /> <id nullFlavor="NA" /> <code codeSystem="local" code="300.2000" displayName="Osmolality,Calculated" /> <statusCode code="completed" /> < effectiveTime value="296996142130" /> <value unit=&quot ;MOSM/KG" xsi:type="PQ" value="274" /> < referenceRange> <observationRange> <text> 261-280</text> </observationRange> </ referenceRange> </observation> </component> < component> <observation moodCode="EVN" classCode="OBS& quot;> <templateId root="2.16.840.1.292294.10.20.22.4.2&quot ; /> <id nullFlavor="NA" /> <code codeSystem="local" code="300.2200" displayName="Calcium " /> <statusCode code="completed" /> & lt;effectiveTime value="238932875923" /> <value unit=& quot;MG/DL" xsi:type="PQ" value="9.7" /> & lt;referenceRange> <observationRange> <text>8.4-10.2& lt;/text> </observationRange> </referenceRange& gt; </observation> </component> <component> <observation moodCode="EVN" classCode="OBS"> <templateId root="2.16.840.1.244051.10.20.22.4.2" /> <id nullFlavor="NA" /> <code codeSystem=&quot ;local" code="300.2700" displayName="Bilirubin,Total" / > <statusCode code="completed" /> < effectiveTime value="199816646028" /> <value unit=&quot ;MG/DL" xsi:type="PQ" value="0.70" /> < referenceRange> <observationRange> <text> 0.20-1.30</text> </observationRange> </ referenceRange> </observation> </component> < component> <observation moodCode="EVN" classCode=" OBS"> <templateId root="2.16.840.1.259090.10..22.4.2& quot; /> <id nullFlavor="NA" /> <code codeSystem="local" code="300.2975" displayName=" Alkaline Phosphatase" /> <statusCode code="completed" /& gt; <effectiveTime value="356087486967" /> &lt ;value unit="U/L" xsi:type="PQ" value="86" /> <referenceRange> <observationRange> <text>38-126</text> </observationRange> </referenceRange> </observation> </component> <component> <observation moodCode="EVN" classCode=& quot;OBS"> <templateId root=" 2.16.840.1.485732.10.20.22.4.2" /> <id nullFlavor="NA& quot; /> <code codeSystem="local" code="300.3050& quot; displayName="AST - Aspartate Amino Transfer" /> < statusCode code="completed" /> <effectiveTime value=& quot;719081673401" /> <value unit="U/L" xsi:type=& quot;PQ" value="22" /> <referenceRange> <observationRange> <text>14-36</text> </observationRange> </referenceRange> </ observation> </component> <component> < observation moodCode="EVN" classCode="OBS"> < templateId root="2.16.840.1.343192.10.20.22.4.2" /> < id nullFlavor="NA" /> <code codeSystem="local&quot ; code="300.3100" displayName="ALT" /> < statusCode code="completed" /> <effectiveTime value=& quot;758954842493" /> <value unit="U/L" xsi:type=& quot;PQ" value="50" /> <referenceRange> <observationRange> <text>9-52</text> </observationRange> </referenceRange> </ observation> </component> <component> < observation moodCode="EVN" classCode="OBS"> < templateId root="2.16.840.1.865757.10.20.22.4.2" /> < id nullFlavor="NA" /> <code codeSystem="local&quot ; code="300.3110" displayName="TP - Total Protein" /> <statusCode code="completed" /> < effectiveTime value="531139223364" /> <value unit=&quot ;G/DL" xsi:type="PQ" value="6.9" /> < referenceRange> <observationRange> <text>6.3- 8.2</text> </observationRange> </ referenceRange> </observation> </component> < component> <observation moodCode="EVN" classCode=" OBS"> <templateId root="2.16.840.1.832422.10.20.22.4.2& quot; /> <id nullFlavor="NA" /> <code codeSystem="local" code="300.3120" displayName=" Albumin Level" /> <statusCode code="completed" /& gt; <effectiveTime value="938569048845" /> < value unit="G/DL"xsi:type="PQ" value="4.3" /> <referenceRange> <observationRange> <text>3.5-5.0</text> </observationRange> </referenceRange> </observation> </component> <component> <observation moodCode="EVN" classCode= "OBS"> <templateId root=" 2.16.840.1.442764.10.20.22.4.2" /> <id nullFlavor="NA& quot; /> <code codeSystem="local" code="300.3130& quot; displayName="Globulin" /> <statusCode code=" completed" /> <effectiveTime value="349807301883" /> <value unit="G/DL" xsi:type="PQ" value=& quot;2.6" /> <referenceRange> < observationRange> <text>2.4-3.6</text> &lt ;/observationRange> </referenceRange> </observation& gt; </component> <component> <observation moodCode="EVN" classCode="OBS"> <templateId root="2.16.840.1.698775.10.20.22.4.2" /> <id nullFlavor ="NA" /><code codeSystem="local" code="300.3140& quot; displayName="Albumin/Globulin Ratio" /> < statusCode code="completed" /> <effectiveTime value=& quot;502365598573" /> <value unit="RATIO" xsi:type ="PQ" value="1.7" /> <referenceRange> <observationRange> <text>1.1-2.2</text> </observationRange> </referenceRange> </ observation> </component> <component> < observation moodCode="EVN" classCode="OBS"> < templateId root="2.16.840.1.627862.10.20.22.4.2" /> < id nullFlavor="NA" /> <code codeSystem="local&quot ; code="300.0095" displayName="LICTERUS" /> < statusCode code="completed" /> <effectiveTime value=& quot;291969609411" /> <value unit="" xsi:type=& quot;PQ" value="< 2" /> <referenceRange&gt ; <observationRange> <text>0-7</text> </observationRange> </referenceRange> & lt;/observation> </component> <component> < observation moodCode="EVN" classCode="OBS"> < templateId root="2.16.840.1.495344.10.20.22.4.2" /> < id nullFlavor="NA" /> <code codeSystem="local&quot ; code="300.0096" displayName="LHEMOLYSIS" /> & lt;statusCode code="completed" /> <effectiveTime value= "520447654155" /> <value unit="" xsi:type=& quot;PQ" value="< 15" /> <referenceRange> <observationRange> <text>0-25</text> </observationRange> </referenceRange> </ observation> </component> <component> < observation moodCode="EVN" classCode="OBS"> < templateId root="2.16.840.1.307198.10.20.22.4.2" /> < id nullFlavor="NA" /> <code codeSystem="local&quot ; code="300.0097" displayName="LTURBIDITY" /> & lt;statusCode code="completed" /> <effectiveTime value= "825312551077" /> <value unit="" xsi:type=& quot;PQ" value="< 20" /> <referenceRange&gt ; <observationRange> <text>0-20</text&gt ; </observationRange> </referenceRange> </ observation> </component> </organizer> </entry> & lt;entry> <organizer moodCode="EVN" classCode="BATTERY& quot;> <templateId root="2.16.840.1.011933.10.20.22.4.1" /& gt; <id nullFlavor="NA" /> <code codeSystem=" local" code="LCBC" displayName="L100.0050" /> & lt;statusCode code="completed" /> <component> &lt ;observation moodCode="EVN" classCode="OBS"> &lt ;templateId root="2.16.840.1.922203.10.20.22.4.2" /> < id nullFlavor="NA" /> <code codeSystem="local&quot ; code="100.0150" displayName="WBC - WHITE BLOOD COUNT" /&gt ; <statusCode code="completed" /> < effectiveTime value="989337446562" /> <value unit=&quot ;T/MM3" xsi:type="PQ" value="14.9" /> < interpretationCode codeSystem="local" code="*" /> <referenceRange> <observationRange> <text> 4.5-11.0</text> </observationRange> </ referenceRange> </observation> </component> < component> <observation moodCode="EVN" classCode=" OBS"> <templateId root="2.16.840.1.842258.10.20.22.4.2&quot ; /> <id nullFlavor="NA" /> <code codeSystem="local" code="100.0250" displayName="RED BLOOD COUNT" /> <statusCode code="completed" /&gt ; <effectiveTime value="034904615255" /> <value unit="M/MM3"xsi:type="PQ" value="4.96" /> <referenceRange> <observationRange> &lt ;text>4.00-5.20</text> </observationRange> & lt;/referenceRange> </observation> </component> <component> <observation moodCode="EVN" classCode=& quot;OBS"> <templateId root=" 2.16.840.1.176731.10.20.22.4.2" /> <id nullFlavor="NA& quot; /> <code codeSystem="local" code="100.0300& quot; displayName="HGB - HEMOGLOBIN" /> <statusCode code="completed" /> <effectiveTime value=" 061368553131" /> <value unit="GM/DL" xsi:type=& quot;PQ" value="13.8" /> <referenceRange> <observationRange> <text>12-16</text> </observationRange> </referenceRange> </ observation> </component> <component> < observation moodCode="EVN" classCode="OBS"> < templateId root="2.16.840.1.489404.10.20.22.4.2" /> < id nullFlavor="NA" /> <code codeSystem="local&quot ; code="100.0400" displayName="HCT - HEMATOCRIT" /> <statusCode code="completed" /> <effectiveTime value="355401283340" /> <value unit="%& quot; xsi:type="PQ" value="41.8" /> < referenceRange> <observationRange> <text> 36-46</text> </observationRange> </ referenceRange> </observation> </component> < component><observation moodCode="EVN" classCode="OBS"& gt; <templateId root="2.16.840.1.328640.10.20.22.4.2" /&gt ; <id nullFlavor="NA" /> <code codeSystem=" local" code="100.0550" displayName="MEAN CORPUSCULAR VOLUME& quot; /> <statusCode code="completed" /> & lt;effectiveTime value="677948879754" /> <value unit=& quot;UM3" xsi:type="PQ" value="84.3" /> &lt ;referenceRange> <observationRange> <text> 80-100</text> </observationRange> </ referenceRange> </observation> </component> < component> <observation moodCode="EVN" classCode=" OBS"> <templateId root="2.16.840.1.317157.10..22.4.2& quot; /> <id nullFlavor="NA" /> <code codeSystem="local" code="100.0600" displayName="MEAN CORPUSCULAR HGB" /> <statusCode code="completed" / > <effectiveTime value="528834090432" /> & lt;value unit="UUG" xsi:type="PQ" value="27.8" /& gt; <referenceRange> <observationRange> < text>26-34</text> </observationRange> </ referenceRange> </observation> </component> < component> <observation moodCode="EVN" classCode=" OBS"> <templateId root="2.16.840.1.809819.10.20.22.4.2& quot; /> <id nullFlavor="NA" /> <code codeSystem="local" code="100.0650" displayName="MEAN CORPUSCULAR HGB CONC([facility]" /> <statusCode code=" completed" /> <effectiveTime value="674379716502" /> <value unit="GM/DL" xsi:type="PQ" value=& quot;33.0" /> <referenceRange> < observationRange> <text>31-37</text> </ observationRange> </referenceRange> </observation&gt ; </component> <component> <observation moodCode ="EVN" classCode="OBS"> <templateId root=& quot;2.16.840.1.793059.10.20.22.4.2" /> <id nullFlavor=&quot ;NA" /> <code codeSystem="local" code=" 100.0750" displayName="RDW STANDARD DEVIATION" /> &lt ;statusCode code="completed" /> <effectiveTime value=& quot;197243048347" /> <value unit="FL" xsi:type=& quot;PQ" value="38.8" /> <referenceRange> <observationRange><text>36.9-50.2</text> &lt ;/observationRange> </referenceRange> </observation& gt; </component> <component> <observation moodCode="EVN" classCode="OBS"> <templateId root="2.16.840.1.481198.10.20.22.4.2" /> <id nullFlavor ="NA" /> <code codeSystem="local" code=" 100.0850" displayName="PLT - PLATELET COUNT" /> < statusCode code="completed" /> <effectiveTime value=& quot;654614718115" /> <value unit="T/MM3" xsi:type ="PQ" value="304" /> <referenceRange> <observationRange> <text>130-400</text> </observationRange> </referenceRange> </ observation> </component> <component> < observation moodCode="EVN" classCode="OBS"> < templateId root="2.16.840.1.731200.10.20.22.4.2" /> < id nullFlavor="NA" /> <code codeSystem="local&quot ; code="100.0950" displayName="MEAN PLATELET VOLUME" /> <statusCode code="completed" /> <effectiveTime value="424386183891" /> <value unit="UM3" xsi :type="PQ" value="9.5" /> <referenceRange&gt ; <observationRange> <text>9.4-12.4</text > </observationRange> </referenceRange> </observation> </component> <component> & lt;observation moodCode="EVN" classCode="OBS"> & lt;templateId root="2.16.840.1.491451.10.20.22.4.2" /> &lt ;id nullFlavor="NA" /> <code codeSystem="local& quot; code="100.1050" displayName="NEUTROPHILS % (AUTO)& quot; /> <statusCode code="completed" /> < effectiveTime value="177076228518" /> <value unit=&quot ;%" xsi:type="PQ" value="70.0" /> & lt;interpretationCode codeSystem="local" code="*" /> <referenceRange> <observationRange> & lt;text>33-66</text> </observationRange> < /referenceRange> </observation> </component> &lt ;component> <observation moodCode="EVN" classCode=" OBS"> <templateId root="2.16.840.1.524929.10.20.22.4.2& quot; /> <id nullFlavor="NA" /> <code codeSystem="local" code="100.1100" displayName=" LYMPHOCYTES % (AUTO)" /> <statusCode code=" completed" /> <effectiveTime value="143862972441" /> <value unit="%" xsi:type="PQ" value="18.5"/> <interpretationCode codeSystem=" local" code="*" /><referenceRange> < observationRange> <text>23-45</text> < /observationRange> </referenceRange> </observation& gt; </component> <component> <observation moodCode ="EVN" classCode="OBS"> <templateId root=& quot;2.16.840.1.844820.10.20.22.4.2" /> <id nullFlavor=" NA" /> <code codeSystem="local" code=" 100.1150" displayName="MONOCYTES % (AUTO)" /> <statusCodecode="completed" /> <effectiveTime value="897160672379" /> <value unit="%" xsi:type="PQ" value="7.4" /> <referenceRange> <observationRange> <text>0-9.0</text> </observationRange> </referenceRange> </ observation> </component> <component> < observation moodCode="EVN" classCode="OBS"> < templateId root="[id number]" /> < id nullFlavor="NA" /> <code codeSystem="local&quot ; code="100.1200" displayName="EOSINOPHILS % (AUTO)&quot ; /> <statusCode code="completed" /> < effectiveTime value="[id number]" /> <value unit=" %" xsi:type="PQ" value="3.3" /> < referenceRange> <observationRange> <text> 0-4</text> </observationRange> </ referenceRange> </observation> </component> < component> <observation moodCode="EVN" classCode=" OBS"> <templateId root="[id number]& quot; /> <id nullFlavor="NA" /> <code codeSystem="local" code="100.1250" displayName=" BASOPHILS % (AUTO)" /> <statusCode code=" completed" /> <effectiveTime value="[id number]" /> <value unit="%" xsi:type="PQ" value ="0.3" /> <referenceRange> < observationRange> <text>0-2</text> </ observationRange> </referenceRange> </observation&gt ; </component> <component> <observation moodCode ="EVN" classCode="OBS"> <templateId root=& quot;2.16.840.1.862013.10.20.22.4.2" /> <id nullFlavor=&quot ;NA" /> <code codeSystem="local" code=" 100.1275" displayName="IMMATURE GRANULOCYTE % (AUTO)" /& gt;<statusCode code="completed" /> <effectiveTime value="701141805454" /> <value unit="%& quot; xsi:type="PQ" value="0.5" /> < referenceRange> <observationRange> <text> 0.0-0.5</text> </observationRange> </ referenceRange> </observation> </component> < component> <observation moodCode="EVN" classCode=" OBS"> <templateId root="2.16.840.1.780041.10.20.22.4.2& quot; /> <id nullFlavor="NA" /> <code codeSystem="local" code="100.1300" displayName=" NEUTROPHILS # (AUTO)" /> <statusCode code="completed& quot; /> <effectiveTime value="892846499320" /> <value unit="T/MM3" xsi:type="PQ" value="10.5& quot; /> <interpretationCode codeSystem="local" code=& quot;*" /> <referenceRange> < observationRange> <text>1.8-7.7</text> & lt;/observationRange> </referenceRange> </ observation> </component> <component> < observation moodCode="EVN" classCode="OBS"> < templateId root="2.16.840.1.783825.10.20.22.4.2" /> <id nullFlavor="NA" /> <code codeSystem="local" code="100.1350" displayName="LYMPHOCYTES # (AUTO)" /> <statusCode code="completed" /> < effectiveTime value="100129365040" /> <value unit=&quot ;T/MM3" xsi:type="PQ" value="2.8" /> < referenceRange> <observationRange> <text> 1-4.8</text> </observationRange> </referenceRange&gt ; </observation> </component> <component> <observation moodCode="EVN" classCode="OBS"> <templateId root="2.16.840.1.452649.10.20.22.4.2" />< id nullFlavor="NA" /> <code codeSystem="local&quot ; code="100.1400" displayName="MONOCYTES # (AUTO)" /> <statusCode code="completed" /> < effectiveTime value="028148675536" /> <value unit=&quot ;T/MM3" xsi:type="PQ" value="1.1" /> < interpretationCode codeSystem="local" code="*" /> <referenceRange><observationRange> <text>0-0.8 </text> </observationRange> </referenceRange& gt; </observation> </component> <component> <observation moodCode="EVN" classCode="OBS"> <templateId root="2.16.840.1.329663.10.20.22.4.2" /> <id nullFlavor="NA" /> <code codeSystem=&quot ;local" code="100.1450" displayName="EOSINOPHILS # (AUTO)& quot; /> <statusCode code="completed" /> < effectiveTime value="562440288586" /> <value unit=&quot ;T/MM3" xsi:type="PQ" value="0.5" /> < referenceRange> <observationRange> <text> 0-0.5</text> </observationRange> </referenceRange > </observation> </component> <component> <observation moodCode="EVN" classCode="OBS"> <templateId root="2.16.840.1.371109.10.20.22.4.2" /> <id nullFlavor="NA"/> <code codeSystem=&quot ;local" code="100.1500" displayName="BASOPHILS # (AUTO)&quot ; /> <statusCode code="completed" /> < effectiveTime value="928940317953" /> <value unit=&quot ;T/MM3" xsi:type="PQ" value="0.0" /> < referenceRange> <observationRange> <text> 0-0.2</text> </observationRange> </ referenceRange> </observation> </component> < component> <observation moodCode="EVN" classCode="OBS" > <templateId root="2.16.840.1.043531.10.20.22.4.2" /& gt; <id nullFlavor="NA" /> <code codeSystem=& quot;local" code="100.1525" displayName="IMMATURE GRANULOCYTE # (AUTO)" /> <statusCode code="completed& quot; /> <effectiveTime value="750984385172" /> <value unit="T/MM3" xsi:type="PQ" value="0.07& quot; /> <interpretationCode codeSystem="local" code=& quot;*" /> <referenceRange> < observationRange> <text>0.00-0.03</text> </ observationRange> </referenceRange> </observation&gt ; </component> </organizer> </entry> <entry> <organizer moodCode="EVN" classCode="BATTERY"> <templateId root="2.16.840.1.996025.10.20.22.4.1" /> < id nullFlavor="NA" /> <code codeSystem="local" code="LCMP" displayName="L200.0020" /> < statusCode code="completed" /> <component> < observation moodCode="EVN" classCode="OBS"> < templateId root="2.16.840.1.101900.10.20.22.4.2" /> < id nullFlavor="NA" /> <code codeSystem="local&quot ; code="300.0400" displayName="FUNGAL CULTURE."/> <statusCode code="completed" /> <effectiveTime value="718044594209" /> <value unit="MG/DL" xsi:type="PQ" value="0.9" /> <referenceRange& gt; <observationRange> <text>0.7-1.2</ text> </observationRange> </referenceRange> </observation> </component> <component> <observation moodCode="EVN" classCode="OBS"> <templateId root="2.16.840.1.551854.10.20.22.4.2" /> <id nullFlavor="NA" /> <code codeSystem=" local" code="300.0450" displayName="FUNGAL CULTURE, BLOOD.& quot; /> <statusCode code="completed" /> & lt;effectiveTime value="125432361359" /> <value unit=& quot;RATIO" xsi:type="PQ" value="13" /> &lt ;referenceRange> <observationRange> <text&gt ;6-26</text> </observationRange> </ referenceRange></observation> </component> < component> <observation moodCode="EVN" classCode=" OBS"> <templateId root="2.16.840.1.981092.10.20.22.4.2& quot; /> <id nullFlavor="NA" /> <code codeSystem="local" code="300.0100" displayName="NA - Sodium" /> <statusCode code="completed" /> <effectiveTime value="951245110394" /> <value unit="MEQ/L" xsi:type="PQ" value="141" /> & lt;referenceRange> <observationRange> <text& gt;134-144</text> </observationRange> </ referenceRange> </observation> </component> < component> <observation moodCode="EVN"classCode="OBS "> <templateId root="2.16.840.1.551918.10.20.22.4.2& quot; /> <id nullFlavor="NA" /> <code codeSystem="local" code="300.0150" displayName=" Potassium" /> <statusCode code="completed" /> <effectiveTime value="330337918786" /> < value unit="MEQ/L" xsi:type="PQ" value="4.3" /&gt ; <referenceRange> <observationRange> <text>3.6-5</text> </observationRange> </ referenceRange> </observation> </component> < component> <observation moodCode="EVN" classCode=" OBS"> <templateId root="2.16.840.1.670008.10.20.22.4.2& quot; /> <id nullFlavor="NA" /> <code codeSystem="local" code="300.0200" displayName=" Chloride" /> <statusCode code="completed" /> <effectiveTime value="733518624501" /> < value unit="MEQ/L" xsi:type="PQ" value="107" /&gt ; <referenceRange> <observationRange> < text>98-107</text> </observationRange> </ referenceRange> </observation> </component> < component> <observation moodCode="EVN" classCode=" OBS"> <templateId root="2.16.840.1.291109.10.20.22.4.2" /& gt; <id nullFlavor="NA" /> <code codeSystem ="local" code="300.0250" displayName="CO2 - Carbon Dioxide" /> <statusCode code="completed" /> <effectiveTime value="813993538970" /> <value unit ="MEQ/L" xsi:type="PQ" value="26" /> & lt;referenceRange> <observationRange> <text& gt;22-30</text> </observationRange> </ referenceRange> </observation> </component> < component> <observation moodCode="EVN" classCode=" OBS"> <templateId root="2.16.840.1.385361.10.20.22.4.2& quot; /> <id nullFlavor="NA" /> <code codeSystem="local" code="300.0300" displayName="Anion Gap" /> <statusCode code="completed" /> <effectiveTime value="112635905475" /> <value unit="MEQ/L" xsi:type="PQ" value="8" /> <referenceRange> <observationRange> <text >5-15</text> </observationRange> </ referenceRange> </observation> </component> < component> <observation moodCode="EVN" classCode=" OBS"> <templateId root="2.16.840.1.993515.10.20.22.4.2& quot; /> <id nullFlavor="NA" /> <code codeSystem="local" code="300.0350" displayName="BUN - Blood Urea Nitrogen" /> <statusCode code="completed& quot; /> <effectiveTime value="465032921455" /> <value unit="MG/DL" xsi:type="PQ" value="12.0& quot; /> <referenceRange> <observationRange> <text>7-17</text> </observationRange> </referenceRange> </observation> </component&gt ; <component> <observation moodCode="EVN" classCode="OBS"> <templateId root=" 2.16.840.1.012446.10.20.22.4.2" /> <id nullFlavor="NA& quot; /> <code codeSystem="local" code="300.0410& quot; displayName="Glomerular Filtration Rate" /> < statusCode code="completed" /> <effectiveTime value=& quot;859842993764" /> <value unit="" xsi:type=& quot;PQ" value="74" /> <referenceRange> <observationRange> <text>NRG</text> </observationRange> </referenceRange> </ observation> </component> <component> < observation moodCode="EVN" classCode="OBS"> < templateId root="2.16.840.1.753562.10.20.22.4.2" /> < id nullFlavor="NA" /> <code codeSystem="local&quot ; code="300.0500" displayName="Glucose" /> < statusCode code="completed" /> <effectiveTime value=& quot;407988885255" /> <value unit="MG/DL" xsi:type ="PQ" value="93" /> <referenceRange> <observationRange> <text>65-110</text> </observationRange> </referenceRange> </ observation> </component> <component> < observation moodCode="EVN" classCode="OBS"> < templateId root="2.16.840.1.153044.10.20.22.4.2" /> < id nullFlavor="NA" /> <code codeSystem="local&quot ; code="300.2000" displayName="Osmolality,Calculated" /> <statusCodecode="completed" /> < effectiveTime value="511037794220" /> <value unit="MOSM /KG" xsi:type="PQ" value="271" /><referenceRange& gt; <observationRange> <text>261-280</ text> </observationRange> </referenceRange> </observation> </component> <component> <observation moodCode="EVN" classCode="OBS"> <templateId root="2.16.840.1.162719.10.20.22.4.2" /> <id nullFlavor="NA" /> <code codeSystem=" local" code="300.2200" displayName="Calcium" /> <statusCode code="completed" /> < effectiveTime value="692461159425" /> <value unit=&quot ;MG/DL" xsi:type="PQ" value="9.5" /> < referenceRange> <observationRange> <text> 8.4-10.2</text> </observationRange> </ referenceRange> </observation> </component> < component> <observation moodCode="EVN" classCode=" OBS"> <templateId root="2.16.840.1.071324.10.20.22.4.2& quot; /> <idnullFlavor="NA" /> <code codeSystem="local" code="300.2700" displayName=" Bilirubin,Total" /> <statusCode code="completed"/& gt; <effectiveTime value="652363143762" /> &lt ;value unit="MG/DL" xsi:type="PQ" value="0.60" /& gt; <referenceRange> <observationRange> & lt;text>0.20-1.30</text> </observationRange> </referenceRange> </observation> </component> & lt;component> <observation moodCode="EVN" classCode=&quot ;OBS"> <templateId root="2.16.840.1.526225.10.20.22.4.2& quot; /> <id nullFlavor="NA" /> <code codeSystem="local" code="300.2975" displayName=" Alkaline Phosphatase" /> <statusCode code="completed& quot; /> <effectiveTime value="634965983669" /> <value unit="U/L" xsi:type="PQ" value="90&quot ; /> <referenceRange> <observationRange> <text>38-126</text> </observationRange> </referenceRange> </observation> </component > <component> <observation moodCode="EVN" classCode="OBS"> <templateId root=" 2.16.840.1.651128.10.20.22.4.2" /> <id nullFlavor="NA& quot; /> <code codeSystem="local" code="300.3050& quot; displayName="AST - Aspartate Amino Transfer" /> < statusCode code="completed" /> <effectiveTime value=& quot;903543951031" /> <value unit="U/L" xsi:type=& quot;PQ" value="19" /> <referenceRange> <observationRange> <text>14-36</text> </observationRange> </referenceRange> </ observation> </component> <component> < observation moodCode="EVN" classCode="OBS"> < templateId root="2.16.840.1.461724.10.20.22.4.2" /> < id nullFlavor="NA" /> <code codeSystem="local&quot ; code="300.3100" displayName="ALT" /> < statusCode code="completed" /> <effectiveTime value=& quot;048534847686" /> <value unit="U/L" xsi:type=& quot;PQ" value="48" /> <referenceRange> <observationRange> <text>9-52</text> & lt;/observationRange> </referenceRange> </ observation> </component> <component> < observation moodCode="EVN" classCode="OBS"> < templateId root="2.16.840.1.990418.10.20.22.4.2" /> < id nullFlavor="NA" /> <code codeSystem="local&quot ; code="300.3110" displayName="TP - Total Protein" /> <statusCode code="completed" /> < effectiveTime value="452169658001" /> <value unit=&quot ;G/DL" xsi:type="PQ" value="6.7" /> < referenceRange> <observationRange> <text> 6.3-8.2</text> </observationRange> </ referenceRange> </observation> </component> < component> <observation moodCode="EVN" classCode=" OBS"> <templateId root="2.16.840.1.850897.10.20.22.4.2& quot; /> <id nullFlavor="NA" /> <code codeSystem="local" code="300.3120" displayName=" Albumin Level" /><statusCode code="completed" /> <effectiveTime value="673762145572" /> <value unit="G/DL" xsi:type="PQ" value="4.1" /> <referenceRange> <observationRange> < text>3.5-5.0</text> </observationRange> </ referenceRange> </observation> </component> < component> <observation moodCode="EVN" classCode=" OBS"> <templateId root="2.16.840.1.550735.10.20.22.4.2& quot; /> <id nullFlavor="NA" /> <code codeSystem="local" code="300.3130" displayName=" Globulin" /> <statusCode code="completed" /> <effectiveTime value="894629791670" /> <value unit=& quot;G/DL" xsi:type="PQ" value="2.6" /> &lt ;referenceRange> <observationRange> <text&gt ;2.4-3.6</text> </observationRange> </ referenceRange> </observation> </component> < component> <observation moodCode="EVN" classCode=" OBS"> <templateId root="2.16.840.1.478827.10.20.22.4.2& quot; /> <id nullFlavor="NA" /> <code codeSystem="local" code="300.3140" displayName="Albumin /Globulin Ratio" /> <statusCode code="completed" / > <effectiveTime value="367459403337" /> & lt;value unit="RATIO" xsi:type="PQ" value="1.6" /& gt; <referenceRange> <observationRange> <text>1.1-2.2</text> </observationRange> &lt ;/referenceRange> </observation> </component> & lt;component> <observation moodCode="EVN" classCode=&quot ;OBS"> <templateId root="2.16.840.1.180379.10.20.22.4.2 " /><id nullFlavor="NA" /> <code codeSystem= "local" code="300.0095" displayName="LICTERUS" /& gt; <statusCode code="completed"/> < effectiveTime value="065606155620" /> <value unit=&quot ;" xsi:type="PQ" value="< 2" /> < referenceRange> <observationRange> <text>0-7& lt;/text> </observationRange> </referenceRange& gt; </observation> </component> <component> <observation moodCode="EVN" classCode="OBS"> <templateId root="2.16.840.1.419496.10..22.4.2" /> & lt;id nullFlavor="NA" /> <code codeSystem="local& quot; code="300.0096" displayName="LHEMOLYSIS" /> <statusCode code="completed" /> <effectiveTime value="528659227117" /> <value unit="" xsi: type="PQ" value="< 15" /> < referenceRange> <observationRange> <text> 0-25</text> </observationRange> </referenceRange&gt ; </observation> </component> <component> <observation moodCode="EVN" classCode="OBS"> <templateId root="2.16.840.1.630839.10.20.22.4.2" /> <id nullFlavor="NA" /> <code codeSystem=" local" code="300.0097" displayName="LTURBIDITY" /> <statusCode code="completed" /> < effectiveTime value="365071748685" /> <value unit=&quot ;" xsi:type="PQ" value="< 20" /> &lt ;referenceRange> <observationRange> <text>0 -20</text> </observationRange> </ referenceRange> </observation> </component> </ organizer> </entry> <entry> <organizer moodCode="EVN& quot; classCode="BATTERY"> <templateId root=" 2.16.840.1.294581.10.20.22.4.1" /> <id nullFlavor="NA&quot ; /> <code codeSystem="local" code="LTSH" displayName="L200.3850" /> <statusCode code="completed " /> <component> <observation moodCode="EVN& quot; classCode="OBS"> <templateId root=" 2.16.840.1.060842.10.20.22.4.2" /> <id nullFlavor="NA& quot; /> <code codeSystem="local" code="300.5500& quot; displayName="TSH - Thyroid Stim Hormone" /> < statusCode code="completed" /> <effectiveTimevalue=& quot;438648613500" /> <value unit="MIU/L" xsi:type ="PQ" value="< 0.02" /> < referenceRange> <observationRange> <text> 0.47-4.68</text> </observationRange></referenceRange& gt; </observation> </component> </organizer> & lt;/entry> <entry> <organizer moodCode="EVN" classCode ="BATTERY"> <templateId root=" 2.16.840.1.183243.10.20.22.4.1" /> <id nullFlavor="NA&quot ; /> <code codeSystem="local" code="LT4F" displayName="L200.3600" /> <statusCode code="completed " /> <component> <observation moodCode="EVN&quot ; classCode="OBS"> <templateIdroot=" 2.16.840.1.823175.10.20.22.4.2" /> <id nullFlavor="NA& quot; /> <code codeSystem="local" code="300.5250& quot; displayName="Free T4 (Free Thyroxine)-Batch" /> < statusCode code="completed" /> <effectiveTime value=& quot;967032596510" /> <value unit="NG/DL" xsi:type ="PQ" value="2.36" /> <interpretationCode codeSystem="local" code="*" /> < referenceRange> <observationRange> <text> 0.78-2.19</text> </observationRange> </ referenceRange> </observation> </component> </ organizer> </entry> <entry> <organizer moodCode="EVN " classCode="BATTERY"> <templateId root=" 2.16.840.1.387517.10.20.22.4.1" /> <id nullFlavor="NA&quot ; /> <code codeSystem="local" code="LCBC" displayName="L100.0050" /> <statusCode code="completed " /> <component> <observation moodCode="EVN& quot; classCode="OBS"> <templateId root=" 2.16.840.1.801802.10.20.22.4.2" /> <id nullFlavor="NA& quot; /> <code codeSystem="local" code="100.0150" displayName="WBC - WHITE BLOOD COUNT" /> <statusCode code="completed" /> <effectiveTime value=" 436521491968" /> <value unit="T/MM3" xsi:type=& quot;PQ" value="16.2" /> <interpretationCode codeSystem="local" code="*" /> < referenceRange> <observationRange> <text> 4.5-11.0</text> </observationRange> </ referenceRange> </observation> </component> < component> <observation moodCode="EVN" classCode=" OBS"> <templateId root="2.16.840.1.567207.10.20.22.4.2& quot; /> <id nullFlavor="NA" /> <code codeSystem="local" code="100.0250" displayName="RED BLOOD COUNT" /> <statusCode code="completed" /> <effectiveTime value="078566945339" /> <value unit="M/MM3" xsi:type="PQ" value="4.65" /> <referenceRange> <observationRange> & lt;text>4.00-5.20</text> </observationRange> </referenceRange> </observation> </component> < component> <observation moodCode="EVN" classCode=" OBS"> <templateId root="2.16.840.1.767326.10.20.22.4.2& quot; /> <id nullFlavor="NA" /> <code codeSystem="local" code="100.0300" displayName="HGB - HEMOGLOBIN" /> <statusCode code="completed" /> <effectiveTime value="122633637546" /> < value unit="GM/DL" xsi:type="PQ" value="13.1" /&gt ; <referenceRange> <observationRange> <text>12-16</text> </observationRange> </referenceRange> </observation> </component> <component> <observation moodCode="EVN" classCode= "OBS"> <templateId root=" 2.16.840.1.185970.10.20.22.4.2" /> <id nullFlavor="NA& quot; /> <code codeSystem="local" code="100.0400& quot; displayName="HCT - HEMATOCRIT" /> <statusCode code="completed" /> <effectiveTime value=" 247660889905" /> <value unit="%" xsi:type=& quot;PQ" value="38.8" /> <referenceRange> <observationRange> <text>36-46</text> </observationRange> </referenceRange> </ observation> </component> <component> < observation moodCode="EVN" classCode="OBS"> < templateId root="2.16.840.1.110990.10.20.22.4.2" /> < id nullFlavor="NA" /> <code codeSystem="local&quot ; code="100.0550" displayName="MEAN CORPUSCULAR VOLUME" /&gt ; <statusCode code="completed" /> < effectiveTime value="990285885168" /> <value unit=" UM3" xsi:type="PQ" value="83.4" /> < referenceRange> <observationRange> <text> 80-100</text> </observationRange> </ referenceRange> </observation> </component> < component> <observation moodCode="EVN" classCode=" OBS"> <templateId root="2.16.840.1.229899.10.20.22.4.2& quot; /> <id nullFlavor="NA" /> <code codeSystem="local" code="100.0600" displayName="MEAN CORPUSCULAR HGB" /> <statusCode code="completed" / > <effectiveTime value="944770718308" /> & lt;value unit="UUG" xsi:type="PQ" value="28.2" /& gt; <referenceRange> <observationRange> <text>26-34</text> </observationRange> </ referenceRange> </observation> </component> < component> <observation moodCode="EVN" classCode=" OBS"> <templateId root="2.16.840.1.167109.10.20.22.4.2& quot; /><id nullFlavor="NA" /> <code codeSystem=& quot;local" code="100.0650" displayName="MEAN CORPUSCULAR HGB CONC(MCHC" /> <statusCode code="completed" /& gt; <effectiveTime value="988188941697" /><value unit="GM/DL" xsi:type="PQ" value="33.8" /> <referenceRange> <observationRange> & lt;text>31-37</text> </observationRange> </ referenceRange> </observation> </component> < component> <observation moodCode="EVN" classCode=" OBS"> <templateId root="2.16.840.1.905391.10.20.22.4.2& quot; /> <id nullFlavor="NA" /> <code codeSystem="local" code="100.0750" displayName="RDW STANDARD DEVIATION" /> <statusCode code="completed&quot ; /> <effectiveTime value="144353640568" /> <value unit="FL" xsi:type="PQ" value="38.1" / > <referenceRange> <observationRange> <text>36.9-50.2</text> </observationRange> & lt;/referenceRange> </observation> </component> <component> <observation moodCode="EVN" classCode=& quot;OBS"> <templateId root=" 2.16.840.1.893981.10..22.4.2" /> <id nullFlavor="NA& quot; /> <code codeSystem="local" code="100.0850& quot; displayName="PLT - PLATELET COUNT" /> < statusCode code="completed" /> <effectiveTime value=& quot;718086580551" /> <value unit="T/MM3" xsi:type ="PQ" value="313" /> <referenceRange> <observationRange> <text>130-400</text> </observationRange> </referenceRange> &lt ;/observation> </component> <component> < observation moodCode="EVN" classCode="OBS"> < templateId root="2.16.840.1.150517.10.20.22.4.2" /> < idnullFlavor="NA" /> <code codeSystem="local&quot ; code="100.0950" displayName="MEAN PLATELET VOLUME" /> <statusCode code="completed" /> < effectiveTime value="110111870599" /> <value unit=&quot ;UM3" xsi:type="PQ" value="9.1" /> < interpretationCode codeSystem="local" code="*" /> <referenceRange> <observationRange> < text>9.4-12.4</text> </observationRange> < /referenceRange> </observation> </component> </ organizer> </entry> <entry> <organizer moodCode="EVN " classCode="BATTERY"> <templateId root=" 2.16.840.1.775115.10.20.22.4.1" /> <id nullFlavor="NA&quot ; /> <code codeSystem="local" code="LDIFFM" displayName="L100.0105" /> <statusCode code="completed " /> <component> <observation moodCode="EVN& quot; classCode="OBS"> <templateId root=" 2.16.840.1.241829.10.20.22.4.2" /> <id nullFlavor="NA& quot; /> <code codeSystem="local" code="100.1650& quot; displayName="NEUTROPHILS % (MANUAL)" /> < statusCode code="completed" /> <effectiveTime value=& quot;187503958877" /> <value unit="%" xsi: type="PQ" value="76.0" /> < interpretationCode codeSystem="local" code="*" /> <referenceRange> <observationRange> < text>33-66</text> </observationRange> </ referenceRange> </observation> </component> < component> <observation moodCode="EVN" classCode=" OBS"> <templateId root="2.16.840.1.158700.10.20.22.4.2& quot; /> <id nullFlavor="NA" /> <code codeSystem="local" code="100.1850" displayName=" LYMPHOCYTES % (MANUAL)" /> <statusCode code=" completed" /> <effectiveTime value="024998451471" /> <value unit="%" xsi:type="PQ" value=& quot;19.0" /> <interpretationCode codeSystem="local& quot; code="*" /> <referenceRange> < observationRange> <text>23-45</text> < /observationRange> </referenceRange> </observation& gt; </component> <component> <observation moodCode=& quot;EVN" classCode="OBS"> <templateId root=" 2.16.840.1.890632.10.20.22.4.2" /> <id nullFlavor="NA& quot; /> <code codeSystem="local" code="100.1950&quot ; displayName="MONOCYTES % (MANUAL)" /> < statusCode code="completed" /> <effectiveTime value=& quot;085389188756" /> <value unit="%" xsi: type="PQ" value="3.0" /> <referenceRange> <observationRange> <text>0-9.0</text&gt ; </observationRange> </referenceRange> </ observation> </component> <component> < observation moodCode="EVN" classCode="OBS"> < templateIdroot="2.16.840.1.547543.10.20.22.4.2" /> <id nullFlavor="NA" /> <code codeSystem="local" code="100.0" displayName="EOSINOPHILS % (MANUAL)&quot ; /> <statusCode code="completed" /> < effectiveTime value="[id number]" /> <value unit=&quot ;%" xsi:type="PQ" value="2.0" /> & lt;referenceRange> <observationRange> <text& gt;0-4</text> </observationRange> </referenceRange > </observation> </component> <component> <observation moodCode="EVN" classCode="OBS"> <templateId root="[id number]" /> <id nullFlavor="NA" /> <code codeSystem=& quot;local" code="100.2400" displayName="PROLYMPHOCYTES &amp ;#37;" /> <statusCode code="completed" /> <effectiveTime value="[id number]" /> <value unit="T/MM3" xsi:type="PQ" value="12.3" /> <interpretationCode codeSystem="local" code="*" /& gt; <referenceRange> <observationRange> <text>1.8-7.7</text> </observationRange> </referenceRange> </observation> </component> <component> <observation moodCode="EVN" classCode ="OBS"> <templateId root=" 2.16.840.1.864052.10.20.22.4.2" /> <id nullFlavor="NA& quot; /> <code codeSystem="local" code="100.2650& quot; displayName="NEUTROPHILS # (MANUAL)" /> < statusCode code="completed" /> <effectiveTime value=& quot;099890965187" /> <value unit="T/MM3" xsi:type ="PQ" value="0.5" /> <referenceRange> <observationRange> <text>0-0.8</text> </observationRange> </referenceRange> </ observation> </component> <component> < observation moodCode="EVN" classCode="OBS"> < templateId root="2.16.840.1.894290.10.20.22.4.2" /> < id nullFlavor="NA" /> <code codeSystem="local&quot ; code="100.2750" displayName="MONOCYTES # (MANUAL)"/> <statusCode code="completed" /> < effectiveTime value="419964014096" /> <value unit=&quot ;T/MM3" xsi:type="PQ" value="0.3" /> < referenceRange> <observationRange> <text> 0-0.5</text> </observationRange> </ referenceRange> </observation> </component> < component> <observation moodCode="EVN" classCode=" OBS"> <templateId root="2.16.840.1.282710.10.20.22.4.2& quot; /> <id nullFlavor="NA" /> <code codeSystem="local" code="100.2550" displayName=" Lymphocytes # (Manual)" /> <statusCode code="completed& quot; /> <effectiveTime value="260072343343" /> <value unit="T/MM3" xsi:type="PQ" value="3.1& quot; /> <referenceRange> <observationRange> <text>1-4.8</text> </observationRange&gt ; </referenceRange></observation> </component> <component> <observation moodCode="EVN" classCode ="OBS"> <templateId root=" 2.16.840.1.976316.10.20.22.4.2" /> <id nullFlavor="NA& quot; /> <code codeSystem="local" code="100.4565& quot; displayName="LRBCMOR" /> <statusCode code=" completed" /> <effectiveTime value="010705555686" /> <value unit="" xsi:type="PQ" value=" Normal" /> <referenceRange> < observationRange> <text>NRG</text> </ observationRange> </referenceRange> </observation&gt ; </component> </organizer> </entry> <entry> &lt ;organizer moodCode="EVN" classCode="BATTERY"> < templateId root="2.16.840.1.680358.10.20.22.4.1" /> <id nullFlavor="NA" /> <code codeSystem="local" code= "LCMP" displayName="L200.0020" /> <statusCode code="completed" /> <component> <observation moodCode="EVN" classCode="OBS"> <templateId root="2.16.840.1.004915.10.20.22.4.2" /> <id nullFlavor=& quot;NA" /> <code codeSystem="local" code=" 300.0400" displayName="FUNGAL CULTURE." /> < statusCode code="completed" /> <effectiveTime value=& quot;379325106537" /> <value unit="MG/DL" xsi:type ="PQ" value="1.0" /> <referenceRange> <observationRange> <text>0.7-1.2</text>& lt;/observationRange> </referenceRange> </ observation> </component> <component> < observation moodCode="EVN" classCode="OBS"> < templateId root="2.16.840.1.343094.10..22.4.2" /> < id nullFlavor="NA" /> <code codeSystem="local&quot ; code="300.0450" displayName="FUNGAL CULTURE, BLOOD." /&gt ; <statusCode code="completed" /> < effectiveTime value="845770042300" /> <value unit=&quot ;RATIO" xsi:type="PQ" value="16" /> < referenceRange> <observationRange> <text> 6-26</text> </observationRange> </ referenceRange> </observation> </component> < component> <observation moodCode="EVN" classCode=" OBS"> <templateId root="2.16.840.1.012040.10.20.22.4.2& quot; /> <id nullFlavor="NA" /> <code codeSystem="local" code="300.0100" displayName="NA - Sodium" /> <statusCode code="completed" /> <effectiveTime value="407393834922" /> <value unit ="MEQ/L" xsi:type="PQ" value="143" /> <referenceRange> <observationRange> <text >134-144</text> </observationRange> </ referenceRange> </observation> </component> < component> <observation moodCode="EVN" classCode=" OBS"> <templateId root="2.16.840.1.282948.10..22.4.2& quot; /> <id nullFlavor="NA" /> <code codeSystem="local" code="300.0150" displayName=" Potassium" /> <statusCode code="completed" /> <effectiveTime value="829705181088" /> < value unit="MEQ/L" xsi:type="PQ" value="3.7" /&gt ; <referenceRange> <observationRange> <text>3.6-5</text> </observationRange> </referenceRange> </observation> </component> <component> <observation moodCode="EVN" classCode= "OBS"> <templateId root=" 2.16.840.1.935283.10.20.22.4.2" /> <id nullFlavor="NA& quot; /> <code codeSystem="local" code="300.0200" displayName="Chloride" /> <statusCode code=" completed" /> <effectiveTime value="498345618682" /> <value unit="MEQ/L" xsi:type="PQ" value=& quot;107" /> <referenceRange> < observationRange> <text>98-107</text> &lt ;/observationRange> </referenceRange> </observation&gt ; </component> <component> <observation moodCode ="EVN" classCode="OBS"> <templateId root=& quot;2.16.840.1.410211.10.20.22.4.2" /> <id nullFlavor=&quot ;NA" /> <code codeSystem="local" code=" 300.0250" displayName="CO2 - Carbon Dioxide" /> < statusCode code="completed" /> <effectiveTime value=& quot;995048164447" /> <value unit="MEQ/L" xsi:type ="PQ" value="25" /> <referenceRange> <observationRange> <text>22-30</text> </observationRange> </referenceRange> </ observation> </component> <component> < observation moodCode="EVN" classCode="OBS"> < templateId root="2.16.840.1.104611.10.20.22.4.2" /> < id nullFlavor="NA" /> <code codeSystem="local&quot ; code="300.0300" displayName="Anion Gap" /> &lt ;statusCode code="completed" /> <effectiveTime value=& quot;209371067380" /> <value unit="MEQ/L" xsi:type=& quot;PQ" value="11" /> <referenceRange> <observationRange> <text>5-15</text> </observationRange> </referenceRange> </ observation> </component> <component> < observation moodCode="EVN" classCode="OBS"> < templateId root="2.16.840.1.917452.10.20.22.4.2" /> <id nullFlavor="NA" /> <code codeSystem="local" code="300.0350" displayName="BUN - Blood Urea Nitrogen" /&gt ; <statusCode code="completed" /> < effectiveTime value="489464222777" /> <value unit="MG/DL& quot; xsi:type="PQ" value="16.0" /> < referenceRange> <observationRange> <text> 7-17</text> </observationRange> </referenceRange& gt; </observation> </component> <component> <observation moodCode="EVN" classCode="OBS"> <templateId root="2.16.840.1.901654.10.20.22.4.2" /> & lt;id nullFlavor="NA" /> <code codeSystem="local& quot; code="300.0410" displayName="Glomerular Filtration Rate& quot; /> <statusCode code="completed" /> & lt;effectiveTime value="704596278823" /> <value unit=& quot;" xsi:type="PQ" value="65" /> < referenceRange> <observationRange> <text> NRG</text> </observationRange> </ referenceRange> </observation> </component> < component> <observation moodCode="EVN" classCode=" OBS"> <templateId root="2.16.840.1.372754.10.20.22.4.2& quot; /> <idnullFlavor="NA" /> <code codeSystem="local" code="300.0500" displayName="Glucose " /> <statusCode code="completed" /> < effectiveTime value="372740363649" /> <value unit=&quot ;MG/DL" xsi:type="PQ" value="95" /> < referenceRange> <observationRange> <text> 65-110</text> </observationRange> </ referenceRange> </observation> </component> < component> <observation moodCode="EVN" classCode=" OBS"> <templateId root="2.16.840.1.480079.10.20.22.4.2& quot; /> <id nullFlavor="NA" /> <code codeSystem="local" code="300.2000" displayName=" Osmolality,Calculated" /> <statusCode code="completed& quot; /><effectiveTime value="214474938034" /> < value unit="MOSM/KG" xsi:type="PQ" value="276" /& gt; <referenceRange> <observationRange> <text>261-280</text> </observationRange> </referenceRange> </observation> </component> <component> <observation moodCode="EVN" classCode="OBS"> <templateId root=" 2.16.840.1.295018.10.20.22.4.2" /> <id nullFlavor="NA& quot; /> <code codeSystem="local" code="300.2200& quot; displayName="Calcium" /> <statusCode code=" completed" /> <effectiveTime value="951337686329" /> <value unit="MG/DL" xsi:type="PQ" value=& quot;8.9" /> <referenceRange> < observationRange> <text>8.4-10.2</text> < /observationRange> </referenceRange> </observation& gt; </component> <component> <observation moodCode="EVN" classCode="OBS"> <templateId root="2.16.840.1.704119.10.20.22.4.2" /> <id nullFlavor ="NA" /> <code codeSystem="local" code=" 300.2700" displayName="Bilirubin,Total" /> < statusCode code="completed" /> <effectiveTime value=& quot;372140527677" /> <value unit="MG/DL" xsi:type ="PQ" value="0.50" /> <referenceRange> <observationRange> <text>0.20-1.30</text> </observationRange> </referenceRange> </ observation> </component> <component> < observation moodCode="EVN" classCode="OBS"> < templateId root="2.16.840.1.762910.10.20.22.4.2" /> < id nullFlavor="NA" /> <codecodeSystem="local&quot ; code="300.2975" displayName="Alkaline Phosphatase" /> <statusCode code="completed" /> < effectiveTime value="801560955927" /> <value unit=&quot ;U/L" xsi:type="PQ" value="103" /> < referenceRange> <observationRange> <text> 38-126</text> </observationRange> </ referenceRange> </observation> </component> < component> <observation moodCode="EVN" classCode=" OBS"> <templateId root="2.16.840.1.008339.10.20.22.4.2& quot; /> <id nullFlavor="NA" /> <code codeSystem="local" code="300.3050" displayName="AST - Aspartate Amino Transfer"/> <statusCode code="completed " /> <effectiveTime value="775988600521" /> <value unit="U/L" xsi:type="PQ" value="19& quot; /> <referenceRange> <observationRange> <text>14-36</text> </observationRange&gt ; </referenceRange> </observation> </component&gt ; <component> <observation moodCode="EVN" classCode="OBS"> <templateId root=" 2.16.840.1.614874.10.20.22.4.2" /> <id nullFlavor="NA& quot; /> <code codeSystem="local" code="300.3100& quot; displayName="ALT" /> <statusCode code=" completed" /> <effectiveTime value="484718780506" /> <value unit="U/L" xsi:type="PQ" value=" 50" /> <referenceRange> <observationRange& gt; <text>9-52</text> </observationRange&gt ; </referenceRange> </observation></component&gt ; <component> <observation moodCode="EVN" classCode="OBS"> <templateId root=" 2.16.840.1.428089.10.20.22.4.2" /> <id nullFlavor="NA" /> <code codeSystem="local" code="300.3110" displayName="TP - Total Protein" /> <statusCode code=& quot;completed" /> <effectiveTime value="010992853238& quot; /> <value unit="G/DL" xsi:type="PQ" value="6.7" /> <referenceRange> < observationRange> <text>6.3-8.2</text></ observationRange> </referenceRange> </observation&gt ; </component> <component> <observation moodCode ="EVN" classCode="OBS"> <templateId root=& quot;2.16.840.1.852513.10.20.22.4.2" /> <id nullFlavor=&quot ;NA" /> <code codeSystem="local" code=" 300.3120" displayName="Albumin Level" /> < statusCode code="completed" /> <effectiveTime value=& quot;499372357244" /> <value unit="G/DL" xsi:type= "PQ" value="3.9" /> <referenceRange> & lt;observationRange> <text>3.5-5.0</text> </observationRange> </referenceRange> </ observation> </component> <component> < observation moodCode="EVN" classCode="OBS"> < templateId root="2.16.840.1.312644.10..22.4.2" /> < id nullFlavor="NA" /> <code codeSystem="local&quot ; code="300.3130" displayName="Globulin" /> < statusCode code="completed" /> <effectiveTime value=& quot;382376146286" /> <value unit="G/DL" xsi:type= "PQ" value="2.8" /> <referenceRange> <observationRange> <text>2.4-3.6</text> </observationRange> </referenceRange> </ observation> </component> <component> < observation moodCode="EVN" classCode="OBS"> < templateId root="2.16.840.1.280714.10.20.22.4.2" /> < id nullFlavor="NA" /> <code codeSystem="local&quot ; code="300.3140" displayName="Albumin/Globulin Ratio" /&gt ; <statusCode code="completed" /> < effectiveTime value="876470553746" /> <value unit=&quot ;RATIO" xsi:type="PQ" value="1.4" /> < referenceRange> <observationRange> <text> 1.1-2.2</text> </observationRange> </ referenceRange> </observation> </component> < component> <observation moodCode="EVN" classCode="OBS& quot;> <templateId root="2.16.840.1.984900.10.20.22.4.2&quot ; /> <id nullFlavor="NA" /> <code codeSystem="local" code="300.0095" displayName=" LICTERUS" /> <statusCode code="completed" /> <effectiveTime value="957321811244" /> < value unit="" xsi:type="PQ" value="< 2" /& gt; <referenceRange> <observationRange> < text>0-7</text> </observationRange> </ referenceRange> </observation> </component> < component> <observation moodCode="EVN" classCode=" OBS"> <templateId root="2.16.840.1.270705.10.20.22.4.2& quot; /> <id nullFlavor="NA" /> <code codeSystem="local" code="300.0096" displayName=" LHEMOLYSIS" /><statusCode code="completed" /> & lt;effectiveTime value="221495630989" /> <value unit=& quot;" xsi:type="PQ" value="< 15" /> <referenceRange> <observationRange> < text>0-25</text> </observationRange> </ referenceRange> </observation> </component> < component> <observation moodCode="EVN" classCode=" OBS"> <templateId root="2.16.840.1.239532.10.20.22.4.2& quot; /> <id nullFlavor="NA" /> <code codeSystem="local" code="300.0097" displayName=" LTURBIDITY" /> <statusCode code="completed" /> <effectiveTime value="101300305095" /> <value unit="" xsi:type="PQ" value="< 20" />&lt ;referenceRange> <observationRange> <text&gt ;0-20</text> </observationRange> </ referenceRange> </observation> </component> </ organizer> </entry> <entry> <organizer moodCode="EVN " classCode="BATTERY"> <templateId root=" 2.16.840.1.466671.10.20.22.4.1" /> <id nullFlavor="NA&quot ; /> <code codeSystem="local" code="MCUU" displayName="M120.0100" /> <statusCode code="completed " /> <component> <observation moodCode="EVN& quot; classCode="OBS"> <templateId root=" 2.16.840.1.784123.10.20.22.4.2" /> <id nullFlavor="NA& quot; /> <code codeSystem="local" code="120.0100& quot; displayName="Urine Culture" /> <statusCode code=& quot;completed" /> <effectiveTime value="888417475268& quot; /> <value unit="CFU/ml" xsi:type="PQ" value=" " /> <referenceRange> < observationRange> <text>NRG</text> </ observationRange> </referenceRange> </observation&gt ; </component> </organizer> </entry> <entry> <organizer moodCode="EVN" classCode="BATTERY"> <templateId root="2.16.840.1.175707.10.20.22.4.1"/> < id nullFlavor="NA" /> <code codeSystem="local" code="LCBC" displayName="L100.0050" /> < statusCode code="completed"/> <component> < observation moodCode="EVN" classCode="OBS"> < templateId root="2.16.840.1.036033.10.20.22.4.2" /> < id nullFlavor="NA" /> <code codeSystem="local&quot ; code="100.0150" displayName="WBC - WHITE BLOOD COUNT" /&gt ; <statusCode code="completed" /> < effectiveTime value="877497738190" /> <value unit=&quot ;T/MM3" xsi:type="PQ" value="14.3" /> < interpretationCode codeSystem="local" code="*" /> <referenceRange> <observationRange> < text>4.5-11.0</text> </observationRange> < /referenceRange> </observation> </component> &lt ;component> <observation moodCode="EVN" classCode=" OBS"> <templateId root="2.16.840.1.775203.10.20.22.4.2& quot; /> <id nullFlavor="NA" /> <code codeSystem="local" code="100.0250" displayName="RED BLOOD COUNT" /> <statusCode code="completed" /&gt ; <effectiveTime value="148241796421" /> < value unit="M/MM3" xsi:type="PQ" value="5.00" /&gt ; <referenceRange> <observationRange> <text>4.00-5.20</text> </observationRange> </referenceRange> </observation> </component> <component> <observation moodCode="EVN" classCode ="OBS"> <templateId root=" 2.16.840.1.381141.10.20.22.4.2" /> <id nullFlavor="NA& quot; /> <code codeSystem="local" code="100.0300& quot; displayName="HGB - HEMOGLOBIN" /> <statusCode code="completed" /> <effectiveTime value=" 112218286639" /> <value unit="GM/DL" xsi:type=& quot;PQ" value="14.1" /> <referenceRange> <observationRange> <text>12-16</text> </observationRange> </referenceRange> </ observation> </component> <component> <observation moodCode="EVN" classCode="OBS"> <templateId root="2.16.840.1.916973.10.20.22.4.2" /> <id nullFlavor ="NA" /> <code codeSystem="local" code=" 100.0400" displayName="HCT - HEMATOCRIT" /> < statusCode code="completed" /> <effectiveTime value=& quot;030727415846" /> <value unit="%" xsi: type="PQ" value="41.2" /> <referenceRange&gt ; <observationRange> <text>36-46</text&gt ; </observationRange> </referenceRange> & lt;/observation> </component> <component> < observation moodCode="EVN" classCode="OBS"> < templateId root="2.16.840.1.918659.10.20.22.4.2" /> < id nullFlavor="NA" /> <code codeSystem="local&quot ; code="100.0550" displayName="MEAN CORPUSCULAR VOLUME" /&gt ; <statusCode code="completed" /> < effectiveTime value="166150659678" /> <value unit=&quot ;UM3" xsi:type="PQ" value="82.4" /> < referenceRange> <observationRange> <text>80-100& lt;/text> </observationRange> </referenceRange& gt; </observation> </component> <component> <observation moodCode="EVN" classCode="OBS"> <templateId root="2.16.840.1.574354.10.20.22.4.2" /> <id nullFlavor="NA" /> <code codeSystem=&quot ;local" code="100.0600" displayName="MEAN CORPUSCULAR HGB& quot; /> <statusCode code="completed" /> & lt;effectiveTime value="919878077749" /> <value unit=& quot;UUG" xsi:type="PQ" value="28.2" /> &lt ;referenceRange> <observationRange> <text&gt ;26-34</text> </observationRange> </ referenceRange> </observation> </component> < component> <observation moodCode="EVN" classCode=" OBS"> <templateId root="2.16.840.1.666994.10.20.22.4.2& quot; /> <id nullFlavor="NA" /> <code codeSystem="local" code="100.0650" displayName="MEAN CORPUSCULAR HGB CONC([facility]" /> <statusCode code=" completed" /> <effectiveTime value="223894605115" /> <value unit="GM/DL" xsi:type="PQ" value=& quot;34.2" /> <referenceRange> < observationRange> <text>31-37</text> </ observationRange> </referenceRange> </observation&gt ; </component> <component> <observation moodCode ="EVN" classCode="OBS"> <templateId root=& quot;2.16.840.1.694622.10.20.22.4.2" /> <id nullFlavor=&quot ;NA" /> <code codeSystem="local" code=" 100.0750" displayName="RDW STANDARD DEVIATION" /> &lt ;statusCode code="completed" /> <effectiveTime value=& quot;339370267555" /> <value unit="FL" xsi:type=& quot;PQ" value="38.4" /> <referenceRange> <observationRange> <text>36.9-50.2</text> </observationRange> </referenceRange> </ observation> </component> <component> < observation moodCode="EVN" classCode="OBS"> < templateId root="2.16.840.1.019644.10.20.22.4.2" /> < id nullFlavor="NA" /> <code codeSystem="local&quot ; code="100.0850" displayName="PLT - PLATELET COUNT" /> <statusCode code="completed" /> <effectiveTime value="897135119508" /> <value unit="T/MM3" xsi:type="PQ" value="371" /> <referenceRange& gt; <observationRange> <text>130-400</ text> </observationRange> </referenceRange> </observation> </component> <component> <observation moodCode="EVN" classCode="OBS"> <templateId root="2.16.840.1.074456.10.20.22.4.2" /> <id nullFlavor="NA" /> <code codeSystem=" local" code="100.0950" displayName="MEAN PLATELET VOLUME& quot; /><statusCode code="completed" /> < effectiveTime value="423110932548" /> <value unit=&quot ;UM3" xsi:type="PQ" value="9.1" /> < interpretationCode codeSystem="local" code="*" /> <referenceRange> <observationRange> < text>9.4-12.4</text> </observationRange> < /referenceRange> </observation> </component> < component> <observation moodCode="EVN" classCode=" OBS"> <templateId root="2.16.840.1.368473.10.20.22.4.2& quot; /> <id nullFlavor="NA" /> <code codeSystem="local" code="100.1050" displayName=" NEUTROPHILS % (AUTO)" /> <statusCode code=" completed" /> <effectiveTime value="806295106552" /> <value unit="%" xsi:type="PQ" value=& quot;62.7" /> <referenceRange> <observationRange& gt; <text>33-66</text> </observationRange > </referenceRange> </observation> </ component> <component> <observation moodCode="EVN& quot; classCode="OBS"> <templateId root=" 2.16.840.1.990274.10.20.22.4.2" /> <id nullFlavor="NA& quot; /> <code codeSystem="local" code="100.1100& quot; displayName="LYMPHOCYTES % (AUTO)" /> < statusCode code="completed" /> <effectiveTime value=& quot;979802231158" /> <value unit="%" xsi: type="PQ" value="25.6" /> <referenceRange> <observationRange> <text>23-45</text&gt ; </observationRange> </referenceRange> & lt;/observation> </component> <component> < observation moodCode="EVN" classCode="OBS"> < templateId root="2.16.840.1.689648.10.20.22.4.2" /> < id nullFlavor="NA" /> <code codeSystem="local&quot ; code="100.1150" displayName="MONOCYTES % (AUTO)" / > <statusCode code="completed" /> < effectiveTime value="190432350579" /> <value unit=&quot ;%" xsi:type="PQ" value="6.8" /> & lt;referenceRange> <observationRange> <text& gt;0-9.0</text> </observationRange> </ referenceRange> </observation> </component> < component> <observation moodCode="EVN" classCode=" OBS"> <templateId root="2.16.840.1.051592.10.20.22.4.2& quot; /> <id nullFlavor="NA" /> <code codeSystem="local" code="100.1200" displayName=" EOSINOPHILS % (AUTO)" /> <statusCode code=" completed" /> <effectiveTime value="248205538230" /> <value unit="%" xsi:type="PQ" value="4.2"/> <interpretationCode codeSystem=" local" code="*" /><referenceRange> < observationRange> <text>0-4</text> </ observationRange> </referenceRange> </observation&gt ; </component> <component> <observation moodCode=& quot;EVN" classCode="OBS"> <templateId root=" 2.16.840.1.158105.10.20.22.4.2" /> <id nullFlavor="NA&quot ; /> <code codeSystem="local" code="100.1250&quot ; displayName="BASOPHILS % (AUTO)" /> < statusCode code="completed" /> <effectiveTime value=& quot;931039649210" /> <value unit="%" xsi:type=& quot;PQ" value="0.3" /><referenceRange> < observationRange> <text>0-2</text> </ observationRange> </referenceRange> </observation&gt ; </component> <component> <observation moodCode=& quot;EVN" classCode="OBS"> <templateId root=" 2.16.840.1.895579.10.20.22.4.2" /> <id nullFlavor="NA&quot ; /> <code codeSystem="local" code="100.1275&quot ; displayName="IMMATURE GRANULOCYTE % (AUTO)" /> & lt;statusCode code="completed" /> <effectiveTime value= "390391447063" /> <value unit="%" xsi :type="PQ" value="0.4" /> <referenceRange&gt ; <observationRange> <text>0.0-0.5</text& gt; </observationRange> </referenceRange> </observation> </component> <component> &lt ;observation moodCode="EVN" classCode="OBS"> &lt ;templateId root="2.16.840.1.368800.10.20.22.4.2" /> < id nullFlavor="NA" /> <code codeSystem="local&quot ; code="100.1300" displayName="NEUTROPHILS # (AUTO)" /> <statusCode code="completed" /> < effectiveTime value="586710177588" /> <value unit=&quot ;T/MM3" xsi:type="PQ" value="9.0" /> < interpretationCode codeSystem="local" code="*" /> <referenceRange> <observationRange> < text>1.8-7.7</text> </observationRange> </ referenceRange> </observation> </component> < component> <observation moodCode="EVN" classCode=" OBS"> <templateId root="2.16.840.1.775934.10.20.22.4.2& quot; /> <id nullFlavor="NA" /> <code codeSystem= "local" code="100.1350" displayName="LYMPHOCYTES # ( AUTO)" /> <statusCode code="completed" /> <effectiveTime value="672426252208" /> <value unit="T/MM3" xsi:type="PQ" value="3.7" /> <referenceRange> <observationRange> &lt ;text>1-4.8</text> </observationRange> </ referenceRange> </observation> </component> < component> <observation moodCode="EVN" classCode=" OBS"> <templateId root="2.16.840.1.104135.10.20.22.4.2& quot; /> <idnullFlavor="NA" /> <code codeSystem="local" code="100.1400" displayName=" MONOCYTES # (AUTO)" /> <statusCode code="completed&quot ; /> <effectiveTime value="634187962623" /> <value unit="T/MM3" xsi:type="PQ" value="1.0&quot ; /> <interpretationCode codeSystem="local" code=" *" /> <referenceRange> <observationRange&gt ; <text>0-0.8</text> </observationRange& gt; </referenceRange> </observation> </ component> <component> <observation moodCode="EVN& quot; classCode="OBS"> <templateId root=" [id number]" /> <id nullFlavor="NA& quot; /> <code codeSystem="local" code="100.1450& quot; displayName="EOSINOPHILS # (AUTO)" /> < statusCode code="completed" /> <effectiveTime value=& quot;[id number]" /> <value unit="T/MM3" xsi:type ="PQ" value="0.6" /> <interpretationCode codeSystem="local" code="*" /> < referenceRange> <observationRange> <text>0-0.5& lt;/text> </observationRange> </referenceRange& gt; </observation> </component> <component> <observation moodCode="EVN" classCode="OBS"> <templateId root="[id number]" /> <id nullFlavor="NA" /> <code codeSystem=&quot ;local" code="100.1500" displayName="BASOPHILS # (AUTO)&quot ; /> <statusCode code="completed" /> < effectiveTime value="074298414848" /> <value unit=&quot ;T/MM3" xsi:type="PQ" value="0.1" /> < referenceRange> <observationRange> <text> 0-0.2</text> </observationRange> </ referenceRange> </observation> </component> < component> <observation moodCode="EVN" classCode=" OBS"> <templateId root="2.16.840.1.411317.10.20.22.4.2& quot; /> <id nullFlavor="NA" /> <code codeSystem="local" code="100.1525" displayName=" IMMATURE GRANULOCYTE # (AUTO)"/> <statusCode code=" completed" /> <effectiveTime value="772267421287" /> <value unit="T/MM3" xsi:type="PQ" value=& quot;0.06" /> <interpretationCode codeSystem="local& quot; code="*" /> <referenceRange> < observationRange> <text>0.00-0.03</text> </observationRange> </referenceRange> </ observation> </component> </organizer> </entry> & lt;entry> <organizer moodCode="EVN" classCode="BATTERY& quot;> <templateId root="2.16.840.1.946616.10.20.22.4.1" /& gt; <id nullFlavor="NA" /> <code codeSystem=" local" code="LCMP" displayName="L200.0020" /> & lt;statusCode code="completed" /> <component> &lt ;observation moodCode="EVN" classCode="OBS"> &lt ;templateId root="2.16.840.1.555479.10.20.22.4.2" /> < id nullFlavor="NA" /> <code codeSystem="local&quot ; code="300.0400" displayName="FUNGAL CULTURE." /> <statusCode code="completed" /> <effectiveTime value="608516238288" /> <value unit="MG/DL" xsi:type="PQ" value="1.0" /> <referenceRange> <observationRange> <text>0.7-1.2</text& gt; </observationRange> </referenceRange> </observation> </component> <component> &lt ;observation moodCode="EVN" classCode="OBS"> &lt ;templateId root="2.16.840.1.542443.10..22.4.2" /> < id nullFlavor="NA" /> <code codeSystem="local&quot ; code="300.0450" displayName="FUNGAL CULTURE, BLOOD." /&gt ; <statusCode code="completed" /> < effectiveTime value="691741937469" /> <value unit=" RATIO" xsi:type="PQ" value="11" /> < referenceRange> <observationRange> <text> 6-26</text> </observationRange> </ referenceRange> </observation> </component> < component> <observation moodCode="EVN" classCode=" OBS"> <templateId root="2.16.840.1.952929.10.20.22.4.2& quot; /> <id nullFlavor="NA" /> <code codeSystem="local" code="300.0100" displayName="NA - Sodium" /> <statusCode code="completed" /> <effectiveTime value="052572364806" /> < valueunit="MEQ/L" xsi:type="PQ" value="141" /> <referenceRange> <observationRange> <text>134-144</text> </observationRange> </referenceRange> </observation> </component> <component> <observation moodCode="EVN" classCode ="OBS"> <templateId root=" 2.16.840.1.269263.10..22.4.2" /> <id nullFlavor="NA& quot; /> <code codeSystem="local" code="300.0150& quot; displayName="Potassium" /> <statusCode code=&quot ;completed" /> <effectiveTime value="472144858086&quot ; /> <value unit="MEQ/L" xsi:type="PQ" value= "4.0" /> <referenceRange><observationRange> <text>3.6-5</text> </observationRange> </referenceRange> </observation> </ component> <component> <observation moodCode="EVN& quot; classCode="OBS"> <templateId root=" 2.16.840.1.033937.10.20.22.4.2" /> <id nullFlavor="NA& quot; /> <code codeSystem="local" code="300.0200& quot; displayName="Chloride" /> <statusCode code=" completed" /> <effectiveTime value="430179411715" /> <value unit="MEQ/L" xsi:type="PQ" value=& quot;106" /> <referenceRange> < observationRange> <text>98-107</text> &lt ;/observationRange> </referenceRange> </observation& gt; </component> <component><observation moodCode=&quot ;EVN" classCode="OBS"> <templateId root=" 2.16.840.1.689365.10.20.22.4.2" /> <id nullFlavor="NA& quot; /> <code codeSystem="local" code="300.0250" displayName="CO2 - Carbon Dioxide" /> <statusCode code= "completed" /> <effectiveTime value="339484670424& quot; /> <value unit="MEQ/L" xsi:type="PQ" value="24" /> <referenceRange> < observationRange> <text>22-30</text> </ observationRange> </referenceRange> </observation&gt ; </component> <component> <observation moodCode ="EVN" classCode="OBS"> <templateId root=& quot;2.16.840.1.849628.10.20.22.4.2" /> <id nullFlavor=&quot ;NA" /> <code codeSystem="local" code=" 300.0300" displayName="Anion Gap" /> <statusCode code ="completed" /> <effectiveTime value="707045691719 " /> <value unit="MEQ/L" xsi:type="PQ" value="11" /> <referenceRange> < observationRange> <text>5-15</text> </ observationRange> </referenceRange> </observation&gt ; </component> <component> <observation moodCode ="EVN" classCode="OBS"> <templateId root=& quot;2.16.840.1.393359.10.20.22.4.2" /> <id nullFlavor=&quot ;NA" /> <code codeSystem="local" code=" 300.0350" displayName="BUN - Blood Urea Nitrogen" /> < statusCode code="completed" /> <effectiveTime value=& quot;619139869368" /> <value unit="MG/DL" xsi:type ="PQ" value="11.0" /> <referenceRange> <observationRange> <text>7-17</text> </observationRange> </referenceRange> </ observation> </component> <component> < observation moodCode="EVN" classCode="OBS"> < templateId root="2.16.840.1.898608.10.20.22.4.2" /> < id nullFlavor="NA" /> <code codeSystem="local&quot ; code="300.0410" displayName="Glomerular Filtration Rate" / ><statusCode code="completed" /> <effectiveTime value="112504973428" /> <value unit="" xsi: type="PQ" value="65" /> <referenceRange> <observationRange> <text>NRG</text> </observationRange> </referenceRange> </ observation> </component> <component> < observation moodCode="EVN" classCode="OBS"> < templateId root="2.16.840.1.125594.10.20.22.4.2" /> < id nullFlavor="NA" /> <code codeSystem="local&quot ; code="300.0500" displayName="Glucose" /> < statusCode code="completed" /> <effectiveTime value=& quot;681627245974" /> <value unit="MG/DL" xsi:type ="PQ" value="91" /> <referenceRange> <observationRange> <text>65-110</text> </observationRange> </referenceRange> </ observation> </component> <component> < observation moodCode="EVN" classCode="OBS"> < templateId root="2.16.840.1.872563.10.20.22.4.2" /> < idnullFlavor="NA" /> <code codeSystem="local&quot ; code="300.2000" displayName="Osmolality,Calculated" /> <statusCode code="completed" /> < effectiveTime value="024129892663" /> <value unit=&quot ;MOSM/KG" xsi:type="PQ" value="270" /> < referenceRange> <observationRange> <text> 261-280</text> </observationRange> </ referenceRange> </observation> </component> < component> <observation moodCode="EVN" classCode=" OBS"> <templateId root="2.16.840.1.875102.10.20.22.4.2& quot; /> <id nullFlavor="NA" /> <code codeSystem="local" code="300.2200" displayName="Calcium " /> <statusCode code="completed" /> < effectiveTime value="781928212228" /> <value unit=&quot ;MG/DL"xsi:type="PQ" value="9.8" /> < referenceRange> <observationRange> <text> 8.4-10.2</text> </observationRange> </ referenceRange> </observation> </component> < component> <observation moodCode="EVN" classCode=" OBS"> <templateId root="2.16.840.1.504229.10.20.22.4.2& quot; /> <id nullFlavor="NA" /> <code codeSystem="local" code="300.5980" displayName=" Bilirubin,Total" /> <statusCode code="completed" / > <effectiveTime value="341854725371" /> & lt;value unit="MG/DL" xsi:type="PQ" value="0.60" / > <referenceRange> <observationRange> <text>0.20-1.30</text> </observationRange> </referenceRange> </observation> </component> <component> <observation moodCode="EVN" classCode= "OBS"> <templateId root=" 2.16.840.1.033392.10.20.22.4.2" /> <id nullFlavor="NA& quot; /> <code codeSystem="local" code="300.4535& quot; displayName="Alkaline Phosphatase" /> < statusCode code="completed" /> <effectiveTime value=& quot;678249966367" /> <value unit="U/L" xsi:type=& quot;PQ" value="100" /> <referenceRange> <observationRange> <text>38-126</text> </observationRange> </referenceRange> </ observation> </component> <component> < observation moodCode="EVN" classCode="OBS"> < templateId root="2.16.840.1.388133.10.20.22.4.2" /> < id nullFlavor="NA" /> <code codeSystem="local" code= "300.3050" displayName="AST - AspartateAmino Transfer" /&gt ; <statusCode code="completed" /> < effectiveTime value="072118670879" /> <value unit=&quot ;U/L" xsi:type="PQ" value="22" /> < referenceRange> <observationRange> <text> 14-36</text> </observationRange> </ referenceRange> </observation> </component> < component> <observation moodCode="EVN" classCode=" OBS"> <templateId root="2.16.840.1.299057.10.20.22.4.2& quot; /> <id nullFlavor="NA" /> <code codeSystem ="local" code="300.3100" displayName="ALT" /> <statusCode code="completed" /> < effectiveTime value="375268997541" /> <value unit=&quot ;U/L" xsi:type="PQ" value="43" /> < referenceRange> <observationRange> <text> 9-52</text> </observationRange> </ referenceRange> </observation> </component> < component> <observation moodCode="EVN" classCode=" OBS"> <templateId root="2.16.840.1.532047.10.20.22.4.2& quot; /> <id nullFlavor="NA" /> <code codeSystem="local" code="300.3110" displayName="TP - Total Protein" /> <statusCode code="completed" /& gt; <effectiveTime value="809981160146" /> &lt ;value unit="G/DL" xsi:type="PQ" value="7.2" /&gt ; <referenceRange> <observationRange> & lt;text>6.3-8.2</text> </observationRange> & lt;/referenceRange> </observation> </component> <component> <observation moodCode="EVN" classCode=& quot;OBS"> <templateId root=" 2.16.840.1.671912.10..22.4.2" /> <id nullFlavor="NA& quot; /> <code codeSystem="local" code="300.3120& quot; displayName="Albumin Level" /> <statusCode code=& quot;completed" /> <effectiveTime value="749071799406& quot; /><value unit="G/DL" xsi:type="PQ" value=" 4.4" /> <referenceRange> <observationRange& gt; <text>3.5-5.0</text> </observationRange&gt ; </referenceRange> </observation> </ component> <component> <observation moodCode="EVN& quot; classCode="OBS"> <templateId root=" 2.16.840.1.302631.10..22.4.2" /> <id nullFlavor="NA" /& gt; <code codeSystem="local" code="300.3130" displayName="Globulin" /> <statusCode code=" completed" /> <effectiveTime value="211862413513" /> <value unit="G/DL" xsi:type="PQ" value=& quot;2.8" /> <referenceRange> <observationRange& gt; <text>2.4-3.6</text> </ observationRange> </referenceRange> </observation&gt ; </component> <component> <observation moodCode=& quot;EVN" classCode="OBS"> <templateId root=" 2.16.840.1.716054.10.20.22.4.2" /> <id nullFlavor="NA& quot; /> <code codeSystem="local" code="300.3140& quot; displayName="Albumin/Globulin Ratio" /> < statusCode code="completed" /> <effectiveTime value=& quot;825759737228" /> <value unit="RATIO" xsi:type ="PQ" value="1.6" /> <referenceRange> & lt;observationRange> <text>1.1-2.2</text> </observationRange> </referenceRange> </ observation> </component> <component> < observation moodCode="EVN" classCode="OBS"> < templateId root="2.16.840.1.318252.10.20.22.4.2" /> < id nullFlavor="NA" /> <code codeSystem="local&quot ; code="300.0095" displayName="LICTERUS" /> < statusCode code="completed" /> <effectiveTime value=& quot;724365918265" /> <value unit="" xsi:type=& quot;PQ" value="< 2" /> <referenceRange&gt ; <observationRange> <text>0-7</text> </observationRange> </referenceRange> & lt;/observation> </component> <component> < observation moodCode="EVN" classCode="OBS"> < templateId root="2.16.840.1.993359.10.20.22.4.2" /> < id nullFlavor="NA" /> <code codeSystem="local" code="300.0096" displayName="LHEMOLYSIS" /> < statusCode code="completed" /> <effectiveTime value=& quot;182505833543" /> <value unit="" xsi:type=& quot;PQ" value="< 15" /> <referenceRange&gt ; <observationRange> <text>0-25</text> </observationRange> </referenceRange> </ observation> </component> <component> < observation moodCode="EVN" classCode="OBS"> < templateId root="2.16.840.1.146910.10.20.22.4.2" /> < id nullFlavor="NA" /> <code codeSystem="local&quot ; code="300.0097" displayName="LTURBIDITY" /> < statusCode code="completed" /> <effectiveTime value=& quot;547945230956" /> <value unit="" xsi:type=& quot;PQ" value="< 20" /> <referenceRange&gt ; <observationRange> <text>0-20</text&gt ; </observationRange> </referenceRange> & lt;/observation> </component> </organizer> </entry&gt ; <entry> <organizer moodCode="EVN" classCode=" BATTERY"> <templateId root="2.16.840.1.324679.10.20.22.4.1& quot; /> <id nullFlavor="NA" /> <code codeSystem ="local" code="LMAG" displayName="L200.2000" /&gt ; <statusCode code="completed" /> <component> <observation moodCode="EVN" classCode="OBS"> <templateId root="2.16.840.1.555670.10.20.22.4.2" /> <id nullFlavor="NA" /> <code codeSystem=" local" code="300.2350" displayName="MAG - Magnesium" /& gt; <statusCode code="completed" /> < effectiveTime value="276817621909"/> <value unit=" MG/DL" xsi:type="PQ" value="2.0" /> < referenceRange> <observationRange> <text> 1.6-2.3</text> </observationRange> </ referenceRange> </observation> </component> </ organizer> </entry> <entry> <organizer moodCode="EVN " classCode="BATTERY"> <templateId root=" 2.16.840.1.063735.10.20.22.4.1" /> <id nullFlavor="NA&quot ; /> <code codeSystem="local" code="LLDH" displayName="L200.1855" /> <statusCode code="completed " /> <component> <observation moodCode="EVN& quot; classCode="OBS"> <templateId root=" 2.16.840.1.518516.10.20.22.4.2" /> <id nullFlavor="NA& quot; /> <code codeSystem="local" code="300.3250& quot; displayName="LDH - Lactate Dehydrogenase" /> < statusCode code="completed" /> <effectiveTime value=& quot;167726736524" /> <value unit="U/L" xsi:type=& quot;PQ" value="394" /> <referenceRange> <observationRange> <text>313618</text> </observationRange> </referenceRange> </ observation> </component> </organizer> </entry> & lt;entry> <organizer moodCode="EVN" classCode="BATTERY& quot;> <templateId root="2.16.840.1.189184.10.20.22.4.1" /& gt; <id nullFlavor="NA" /> <code codeSystem=" local" code="LCRP" displayName="L200.1860" /> & lt;statusCode code="completed" /> <component> &lt ;observation moodCode="EVN" classCode="OBS"> &lt ;templateId root="2.16.840.1.900263.10.20.22.4.2" /> < id nullFlavor="NA" /> <code codeSystem="local&quot ; code="300.3650" displayName="CRP - C-Reactive Protein" /& gt; <statusCode code="completed" /> < effectiveTime value="514649465539" /> <value unit=&quot ;MG/L" xsi:type="PQ" value="12.4" /> < interpretationCode codeSystem="local" code="*" /> <referenceRange> <observationRange> < text>0-9</text> </observationRange> </ referenceRange> </observation> </component> </ organizer> </entry> <entry> <organizer moodCode="EVN " classCode="BATTERY"> <templateId root=" 2.16.840.1.733533.10.20.22.4.1" /> <id nullFlavor="NA&quot ; /> <code codeSystem="local"code="LTSH" displayName="L200.3850" /> <statusCode code="completed " /> <component> <observation moodCode="EVN& quot; classCode="OBS"> <templateId root=" 2.16.840.1.243036.10.20.22.4.2" /><id nullFlavor="NA" /&gt ; <code codeSystem="local" code="300.5500" displayName="TSH - Thyroid Stim Hormone" /> < statusCode code="completed" /> <effectiveTime value=& quot;391724311320" /> <value unit="MIU/L" xsi:type ="PQ" value="0.07" /> <referenceRange> <observationRange> <text>0.47-4.68</text&gt ; </observationRange> </referenceRange> </ observation> </component> </organizer> </entry> & lt;entry> <organizer moodCode="EVN" classCode="BATTERY& quot;> <templateId root="2.16.840.1.771019.10.20.22.4.1" /& gt; <id nullFlavor="NA" /> <code codeSystem=" local" code="LACTH-A" displayName="L750.0200" /> <statusCode code="completed" /> <component> <observation moodCode="EVN" classCode="OBS"> <templateId root="2.16.840.1.449743.10.20.22.4.2" /> & lt;id nullFlavor="NA" /> <code codeSystem="local& quot; code="902.0325" displayName="LACTH-A" /> & lt;statusCode code="completed" /> <effectiveTime value= "596711781400" /> <value unit="pg/mL" xsi: type="PQ" value="19" /> <referenceRange> <observationRange> <text>NRG</text> </observationRange> </referenceRange> </ observation> </component></organizer> </entry> < entry> <organizer moodCode="EVN" classCode="BATTERY&quot ;> <templateId root="2.16.840.1.755576.10.20.22.4.1" /> <id nullFlavor="NA" /> <code codeSystem="local& quot; code="LESR-A" displayName="L750.8263" /> < statusCode code="completed" /> <component> < observation moodCode="EVN" classCode="OBS"> < templateId root="2.16.840.1.011930.10.20.22.4.2" /> < id nullFlavor="NA" /> <code codeSystem="local&quot ; code="903.9025" displayName="ESR - Sedimentation Rate - AMS& quot; /> <statusCode code="completed" /> & lt;effectiveTime value="311866243830" /> <value unit=& quot;mm/h" xsi:type="PQ" value="15" /> < referenceRange> <observationRange> <text>0 -23</text> </observationRange> </ referenceRange> </observation> </component> </ organizer> </entry> <entry> <organizer moodCode="EVN " classCode="BATTERY"> <templateId root=" 2.16.840.1.178928.10.20.22.4.1" /> <id nullFlavor="NA" /> <code codeSystem="local" code="LT4F" displayName="L200.3600" /> <statusCode code="completed " /> <component> <observation moodCode="EVN& quot; classCode="OBS"> <templateId root=" 2.16.840.1.420297.10.20.22.4.2" /> <id nullFlavor="NA& quot; /> <code codeSystem="local" code="300.5250& quot; displayName="Free T4 (Free Thyroxine)-Batch" /> < statusCode code="completed" /> <effectiveTime value=& quot;734425592175" /> <value unit="NG/DL" xsi:type ="PQ" value="1.66" /> <referenceRange> <observationRange> <text>0.78-2.19</text&gt ; </observationRange> </referenceRange> & lt;/observation> </component> </organizer> </entry&gt ; <entry> <organizer moodCode="EVN" classCode=" BATTERY"> <templateId root="2.16.840.1.644683.10.20.22.4.1& quot; /> <id nullFlavor="NA" /> <code codeSystem ="local" code="LCORTR-A" displayName="L902.5645" / > <statusCode code="completed" /> <component&gt ; <observation moodCode="EVN" classCode="OBS"> <templateId root="2.16.840.1.419391.10.20.22.4.2" /> <id nullFlavor="NA" /> <code codeSystem=& quot;local" code="902.5645" displayName="Cortisol Random, Serum - AMS" /> <statusCode code="completed" /&gt ; <effectiveTime value="124197715489" /> < value unit="ug/dL" xsi:type="PQ" value="5" /> <referenceRange> <observationRange> <text>3-20</text> </observationRange> & lt;/referenceRange> </observation> </component> & lt;/organizer> </entry> <entry> <organizer moodCode=&quot ;EVN" classCode="BATTERY"> <templateId root=" 2.16.840.1.830652.10.20.22.4.1" /> <id nullFlavor="NA&quot ; /> <code codeSystem="local" code="MCUBLD" displayName="M110.0180" /> <statusCode code="completed " /> <component> <observation moodCode="EVN& quot; classCode="OBS"> <templateId root=" 2.16.840.1.227977.10.20.22.4.2" /> <id nullFlavor="NA& quot; /> <code codeSystem="local" code="110.0200& quot; displayName="ANTI-D" /> <statusCode code=" completed" /> <effectiveTime value="523343495464" /> <value unit="" xsi:type="PQ" value=" No Growth After 5 Days" /> <referenceRange> & lt;observationRange> <text>NRG</text> &lt ;/observationRange> </referenceRange> </observation& gt; </component> </organizer> </entry> <entry&gt ; <organizer moodCode="EVN" classCode="BATTERY"> <templateId root="2.16.840.1.006694.10.20.22.4.1" /> & lt;id nullFlavor="NA" /> <code codeSystem="local&quot ; code="MCUBLD" displayName="M110.0180" /> < statusCode code="completed" /> <component> < observation moodCode="EVN" classCode="OBS"> < templateId root="2.16.840.1.088564.10.20.22.4.2" /> < id nullFlavor="NA" /> <code codeSystem="local&quot ; code="110.0200" displayName="ANTI-D" /> < statusCode code="completed" /> <effectiveTime value=" 910963002637" /> <value unit="" xsi:type="PQ& quot; value="No Growth After 5 Days" /> <referenceRange > <observationRange> <text>NRG</text> </observationRange> </referenceRange> &lt ;/observation> </component> </organizer> </entry> <entry> <organizer moodCode="EVN" classCode=" BATTERY"> <templateId root="2.16.840.1.530749.10.20.22.4.1& quot; /> <id nullFlavor="NA" /> <code codeSystem=& quot;local" code="LSTLOB" displayName="L600.5964" /&gt ; <statusCode code="completed" /> <component> <observation moodCode="EVN" classCode="OBS"> <templateId root="2.16.840.1.669856.10.20.22.4.2" /> & lt;id nullFlavor="NA" /> <code codeSystem="local& quot; code="600.5970" displayName="Occult Blood Result, Stool& quot; /> <statusCode code="completed" /> & lt;effectiveTime value="734091076794" /> <value unit=& quot;" xsi:type="PQ" value="NEGATIVE" /> & lt;referenceRange> <observationRange> <text> NRG</text> </observationRange> </ referenceRange> </observation> </component> </ organizer> </entry> <entry> <organizer moodCode="EVN " classCode="BATTERY"> <templateId root=" 2.16.840.1.299587.10.20.22.4.1" /><id nullFlavor="NA" /&gt ; <code codeSystem="local" code="LCBC" displayName=& quot;L100.0050" /> <statusCode code="completed" />& lt;component> <observation moodCode="EVN" classCode=&quot ;OBS"> <templateId root="2.16.840.1.994309.10.20.22.4.2&quot ; /> <id nullFlavor="NA" /> <code codeSystem="local" code="100.0150" displayName="WBC - WHITE BLOOD COUNT" /> <statusCode code="completed&quot ; /> <effectiveTime value="610926764518" /> <value unit="T/MM3" xsi:type="PQ" value="13.1&quot ; /> <interpretationCode codeSystem="local" code=" *" /> <referenceRange> <observationRange&gt ; <text>4.5-11.0</text> </ observationRange> </referenceRange> </observation> </component> <component> <observation moodCode=& quot;EVN" classCode="OBS"> <templateId root=" 2.16.840.1.528670.10.20.22.4.2" /> <id nullFlavor="NA& quot; /> <code codeSystem="local" code="100.0250& quot; displayName="RED BLOOD COUNT" /> <statusCode code ="completed" /> <effectiveTime value="270028208734 " /> <value unit="M/MM3" xsi:type="PQ" value="4.82" /> <referenceRange> < observationRange> <text>4.00-5.20</text> </observationRange> </referenceRange> </ observation> </component> <component> <observation moodCode="EVN" classCode="OBS"> <templateId root="2.16.840.1.257549.10.20.22.4.2" /> <id nullFlavor ="NA" /> <code codeSystem="local" code=" 100.0300" displayName="HGB - HEMOGLOBIN" /> < statusCode code="completed" /> <effectiveTime value=& quot;080867188137" /> <value unit="GM/DL" xsi:type ="PQ"value="13.3" /> <referenceRange> <observationRange> <text>12-16</text> </observationRange> </referenceRange> </ observation> </component> <component> < observation moodCode="EVN" classCode="OBS"> < templateId root="2.16.840.1.840290.10.20.22.4.2" /> < id nullFlavor="NA" /> <code codeSystem="local&quot ; code="100.0400" displayName="HCT - HEMATOCRIT" /> <statusCode code="completed" /> <effectiveTime value="763403310928" /> <value unit="%& quot; xsi:type="PQ" value="40.0" /> < referenceRange> <observationRange> <text>36-46</ text> </observationRange> </referenceRange> </observation> </component> <component> <observation moodCode="EVN" classCode="OBS"> <templateId root="2.16.840.1.391935.10.20.22.4.2" /> <id nullFlavor="NA" /> <code codeSystem=" local" code="100.0550" displayName="MEAN CORPUSCULAR VOLUME& quot; /> <statusCode code="completed" /> & lt;effectiveTime value="326852495158" /> <value unit=& quot;UM3" xsi:type="PQ" value="83.0" /> &lt ;referenceRange> <observationRange> <text&gt ;80-100</text> </observationRange> </ referenceRange> </observation> </component> < component> <observation moodCode="EVN" classCode=" OBS"> <templateId root="2.16.840.1.634109.10.20.22.4.2& quot; /> <id nullFlavor="NA" /> <code codeSystem="local" code="100.0600" displayName="MEAN CORPUSCULAR HGB" /> <statusCode code="completed" /> <effectiveTime value="121990562924" /> < value unit="UUG" xsi:type="PQ" value="27.6" /> <referenceRange> <observationRange> <text>26-34</text> </observationRange> </referenceRange> </observation> </component> <component> <observation moodCode="EVN" classCode=& quot;OBS"> <templateId root=" [id number]" /> <id nullFlavor="NA& quot; /> <code codeSystem="local" code="100.0650& quot; displayName="MEAN CORPUSCULAR HGB CONC(MCHC" /> < statusCode code="completed" /> <effectiveTime value=& quot;[id number]" /> <value unit="GM/DL" xsi:type ="PQ" value="33.3" /> <referenceRange> <observationRange> <text>31-37</text> </observationRange> </referenceRange> < /observation> </component> <component> < observation moodCode="EVN" classCode="OBS"> < templateId root="[id number]" /> < id nullFlavor="NA" /> <code codeSystem="local&quot ; code="100.0750" displayName="RDW STANDARD DEVIATION" /&gt ; <statusCode code="completed" /> <effectiveTime value="187222908831" /> <value unit="FL" xsi: type="PQ" value="38.8" /> <referenceRange&gt ; <observationRange> <text>36.9-50.2</ text> </observationRange> </referenceRange> </observation> </component> <component> <observation moodCode="EVN" classCode="OBS"> <templateId root="2.16.840.1.021758.10.20.22.4.2" /> <id nullFlavor="NA" /> <code codeSystem=" local" code="100.0850" displayName="PLT - PLATELET COUNT& quot; /> <statusCode code="completed" /> & lt;effectiveTime value="628993504362"/> <value unit=& quot;T/MM3" xsi:type="PQ" value="350" /> < referenceRange> <observationRange> <text> 130-400</text> </observationRange> </ referenceRange> </observation> </component> < component> <observation moodCode="EVN" classCode=" OBS"> <templateId root="2.16.840.1.751793.10.20.22.4.2& quot; /> <id nullFlavor="NA" /> <code codeSystem="local" code="100.0950" displayName="MEAN PLATELET VOLUME" /> <statusCode code="completed" / > <effectiveTime value="230936141661" /> &lt ;value unit="UM3" xsi:type="PQ" value="9.3" />& lt;interpretationCode codeSystem="local" code="*" /> <referenceRange> <observationRange> & lt;text>9.4-12.4</text> </observationRange> </ referenceRange> </observation> </component> < component> <observation moodCode="EVN" classCode=" OBS"> <templateId root="2.16.840.1.106537.10.20.22.4.2& quot; /> <id nullFlavor="NA" /> <code codeSystem="local" code="100.1050" displayName=" NEUTROPHILS % (AUTO)" /> <statusCode code=" completed" /> <effectiveTime value="041228956777" /> <value unit="%" xsi:type="PQ" value="62.0" /> <referenceRange> < observationRange> <text>33-66</text> </ observationRange> </referenceRange> </observation&gt ; </component> <component> <observation moodCode ="EVN" classCode="OBS"> <templateId root=& quot;2.16.840.1.431412.10.20.22.4.2" /> <id nullFlavor="NA&quot ; /> <code codeSystem="local" code="100.1100&quot ; displayName="LYMPHOCYTES % (AUTO)" /> < statusCode code="completed" /> <effectiveTime value=& quot;521641040400" /><value unit="%" xsi:type=&quot ;PQ" value="25.7" /> <referenceRange> <observationRange> <text>23-45</text> </observationRange> </referenceRange> </ observation> </component> <component> < observation moodCode="EVN" classCode="OBS"> < templateId root="2.16.840.1.591048.10.20.22.4.2" /> <id nullFlavor="NA" /> <code codeSystem="local" code="100.1150" displayName="MONOCYTES % (AUTO)" /& gt; <statusCode code="completed" /> < effectiveTime value="531485008002" /> <value unit="&# 37;" xsi:type="PQ" value="6.8" /><referenceRange& gt; <observationRange> <text>0-9.0</text& gt; </observationRange> </referenceRange> </observation> </component> <component> < observation moodCode="EVN" classCode="OBS"> < templateId root="2.16.840.1.752314.10.20.22.4.2" /> <id nullFlavor="NA" /> <code codeSystem="local" code="100.1200" displayName="EOSINOPHILS % (AUTO)" / > <statusCode code="completed" /> < effectiveTime value="817455968500" /> <value unit="& amp;#37;" xsi:type="PQ" value="4.8" /> < interpretationCode codeSystem="local" code="*" /> <referenceRange> <observationRange> < text>0-4</text></observationRange> </referenceRange& gt; </observation> </component> <component> <observation moodCode="EVN" classCode="OBS"> <templateId root="2.16.840.1.986806.10.20.22.4.2" /> <id nullFlavor="NA" /> <code codeSystem=&quot ;local" code="100.1250" displayName="BASOPHILS % ( AUTO)" /> <statusCode code="completed" /> <effectiveTime value="298473274443" /> <value unit="%" xsi:type="PQ" value="0.2" /> <referenceRange> <observationRange> <text>0-2</text></observationRange> </ referenceRange> </observation> </component> < component> <observation moodCode="EVN" classCode=" OBS"> <templateId root="2.16.840.1.070697.10.20.22.4.2& quot; /> <id nullFlavor="NA" /> <code codeSystem="local" code="100.1275" displayName=" IMMATURE GRANULOCYTE % (AUTO)" /> <statusCode code=& quot;completed" /> <effectiveTime value="274535112602& quot; /> <value unit="%" xsi:type="PQ" value ="0.5" /><referenceRange> <observationRange&gt ; <text>0.0-0.5</text> </observationRange > </referenceRange> </observation> </ component> <component> <observation moodCode="EVN& quot; classCode="OBS"> <templateId root=" 2.16.840.1.016284.10.20.22.4.2" /> <id nullFlavor="NA& quot; /> <code codeSystem="local" code="100.1300& quot; displayName="NEUTROPHILS # (AUTO)" /> < statusCode code="completed" /> <effectiveTime value=& quot;771634100411" /> <value unit="T/MM3" xsi:type="PQ " value="8.1" /> <interpretationCode codeSystem=& quot;local" code="*" /> <referenceRange> <observationRange> <text>1.8-7.7</text> </observationRange> </referenceRange> </ observation> </component> <component> < observation moodCode="EVN" classCode="OBS"> < templateId root="2.16.840.1.688391.10.20.22.4.2" /> < id nullFlavor="NA" /> <code codeSystem="local&quot ; code="100.1350" displayName="LYMPHOCYTES # (AUTO)" /> <statusCode code="completed" /> < effectiveTime value="233601268449" /> <value unit=&quot ;T/MM3" xsi:type="PQ" value="3.4" /> < referenceRange> <observationRange> <text>1-4.8 </text> </observationRange> </referenceRange& gt; </observation> </component> <component> <observation moodCode="EVN" classCode="OBS"> &lt ;templateId root="2.16.840.1.743919.10.20.22.4.2" /> < id nullFlavor="NA" /> <code codeSystem="local&quot ; code="100.1400" displayName="MONOCYTES # (AUTO)" /> <statusCode code="completed" /> <effectiveTime value="718257286910" /> <value unit="T/MM3" xsi:type="PQ" value="0.9" /> < interpretationCode codeSystem="local" code="*" /> <referenceRange> <observationRange> < text>0-0.8</text> </observationRange> </ referenceRange> </observation> </component> < component> <observation moodCode="EVN" classCode="OBS" > <templateId root="2.16.840.1.573585.10.20.22.4.2" /& gt; <id nullFlavor="NA" /> <code codeSystem=& quot;local" code="100.1450" displayName="EOSINOPHILS #(AUTO) " /> <statusCode code="completed" /> & lt;effectiveTime value="032618893457" /> <value unit=& quot;T/MM3" xsi:type="PQ" value="0.6" /> & lt;interpretationCode codeSystem="local" code="*" /> <referenceRange> <observationRange> & lt;text>0-0.5</text> </observationRange> < /referenceRange> </observation> </component> < component> <observation moodCode="EVN" classCode=" OBS"> <templateId root="2.16.840.1.781733.10.20.22.4.2& quot; /> <id nullFlavor="NA" /> <code codeSystem="local" code="100.1500" displayName=" BASOPHILS # (AUTO)" /> <statusCode code="completed" /&gt ; <effectiveTime value="724154451578" /> < value unit="T/MM3" xsi:type="PQ" value="0.0" /&gt ; <referenceRange> <observationRange> <text>0-0.2</text> </observationRange> </referenceRange> </observation> </component> <component> <observation moodCode="EVN" classCode= "OBS"> <templateId root=" 2.16.840.1.886241.10.20.22.4.2" /> <id nullFlavor="NA& quot; /> <code codeSystem="local" code="100.1525& quot; displayName="IMMATURE GRANULOCYTE # (AUTO)" /> < statusCode code="completed" /> <effectiveTime value=& quot;350559754784" /> <value unit="T/MM3" xsi:type ="PQ" value="0.06" /> <interpretationCode codeSystem="local" code="*" /> <referenceRange> <observationRange> <text>0.00-0.03</text& gt; </observationRange> </referenceRange> </observation> </component> </organizer> </entry > <entry> <organizer moodCode="EVN" classCode=" BATTERY"> <templateId root="2.16.840.1.183993.10.20.22.4.1& quot; /> <id nullFlavor="NA" /> <code codeSystem ="local" code="LBMP" displayName="L200.0050" /&gt ; <statusCode code="completed" /> <component> <observation moodCode="EVN" classCode="OBS"> <templateId root="2.16.840.1.659690.10.20.22.4.2" /> <id nullFlavor="NA" /> <code codeSystem=" local" code="300.0400" displayName="FUNGAL CULTURE." /& gt; <statusCode code="completed" /> < effectiveTime value="199346857288" /> <value unit="MG/DL& quot; xsi:type="PQ" value="0.9" /> < referenceRange> <observationRange> <text> 0.7-1.2</text> </observationRange> </ referenceRange> </observation> </component> < component> <observation moodCode="EVN" classCode=" OBS"> <templateId root="2.16.840.1.272241.10.20.22.4.2& quot; /> <id nullFlavor="NA" /> <code codeSystem="local" code="300.0450" displayName="FUNGAL CULTURE, BLOOD." /> <statusCode code="completed" / > <effectiveTime value="683936159745" /> & lt;value unit="RATIO" xsi:type="PQ" value="10" /& gt; <referenceRange> <observationRange> <text>6-26</text> </observationRange> </ referenceRange> </observation> </component> < component> <observation moodCode="EVN" classCode=" OBS"> <templateId root="2.16.840.1.888231.10.20.22.4.2& quot; /> <id nullFlavor="NA" /> <code codeSystem="local" code="300.0100" displayName="NA - Sodium" /> <statusCode code="completed" /> <effectiveTime value="936954966554" /> <value unit="MEQ/L" xsi:type="PQ" value="142" /> <referenceRange> <observationRange> <text& gt;134-144</text> </observationRange> </ referenceRange> </observation> </component> < component> <observation moodCode="EVN" classCode=" OBS"> <templateId root="2.16.840.1.372959.10.20.22.4.2&quot ; /> <id nullFlavor="NA" /> <code codeSystem="local" code="300.0150" displayName=" Potassium" /> <statusCode code="completed" /> <effectiveTime value="836957859183" /> < value unit="MEQ/L" xsi:type="PQ" value="3.9" /&gt ; <referenceRange> <observationRange> <text>3.6-5</text> </observationRange> </ referenceRange> </observation> </component> < component> <observation moodCode="EVN" classCode=" OBS"> <templateId root="2.16.840.1.712928.10.20.22.4.2& quot; /> <id nullFlavor="NA" /> <code codeSystem="local" code="300.0200" displayName=" Chloride" /> <statusCode code="completed" /> <effectiveTime value="111560504925" /> < value unit="MEQ/L" xsi:type="PQ" value="109" /&gt ; <interpretationCode codeSystem="local" code="*&quot ; /> <referenceRange> <observationRange> <text>98-107</text> </observationRange> </referenceRange></observation> </component> <component> <observation moodCode="EVN" classCode=& quot;OBS"> <templateId root=" 2.16.840.1.801916.10.20.22.4.2" /> <id nullFlavor="NA& quot; /> <code codeSystem="local" code="300.0250& quot; displayName="CO2 - Carbon Dioxide" /> <statusCode code=& quot;completed" /> <effectiveTime value="194561283915& quot; /> <value unit="MEQ/L" xsi:type="PQ" value="24" /> <referenceRange> < observationRange> <text>22-30</text> < /observationRange> </referenceRange> </observation& gt; </component> <component> <observation moodCode="EVN" classCode="OBS"> <templateId root="2.16.840.1.018084.10.20.22.4.2" /> <id nullFlavor ="NA" /> <code codeSystem="local" code=" 300.0300" displayName="Anion Gap" /> <statusCode code="completed" /> <effectiveTime value=" 900686855756" /> <value unit="MEQ/L" xsi:type="PQ&quot ; value="9" /> <referenceRange> < observationRange> <text>5-15</text> </ observationRange> </referenceRange> </observation&gt ; </component> <component> <observation moodCode ="EVN" classCode="OBS"> <templateId root=& quot;2.16.840.1.712260.10.20.22.4.2" /><id nullFlavor="NA" /> <code codeSystem="local" code="300.0350" displayName="BUN - Blood Urea Nitrogen" /> <statusCode code="completed" /> <effectiveTime value=" 362914701508" /> <value unit="MG/DL" xsi:type=& quot;PQ" value="9.0" /> <referenceRange> <observationRange> <text>7-17</text></ observationRange> </referenceRange> </observation&gt ; </component> <component> <observation moodCode ="EVN" classCode="OBS"> <templateId root=& quot;2.16.840.1.372403.10.20.22.4.2" /> <id nullFlavor=&quot ;NA" /> <code codeSystem="local" code=" 300.0410" displayName="Glomerular Filtration Rate" /> <statusCode code="completed" /> <effectiveTime value="042082744115" /> <value unit="" xsi: type="PQ" value="74" /> <referenceRange> <observationRange> <text>NRG</text> </observationRange> </referenceRange> < /observation> </component> <component> < observation moodCode="EVN" classCode="OBS"> < templateId root="2.16.840.1.949645.10.20.22.4.2" /> < id nullFlavor="NA" /> <code codeSystem="local&quot ; code="300.0500" displayName="Glucose" /> < statusCode code="completed" /><effectiveTime value=" 045458111376" /> <value unit="MG/DL" xsi:type=& quot;PQ" value="96" /> <referenceRange> <observationRange> <text>65-110</text> </observationRange> </referenceRange> </ observation> </component> <component> < observation moodCode="EVN" classCode="OBS"> < templateId root="2.16.840.1.600598.10.20.22.4.2" /> < id nullFlavor="NA" /> <code codeSystem="local&quot ; code="300.2000" displayName="Osmolality,Calculated" /> <statusCode code="completed" /> < effectiveTime value="035347986793" /> <value unit=&quot ;MOSM/KG" xsi:type="PQ" value="272" /> < referenceRange> <observationRange> <text> 261-280</text> </observationRange> </referenceRange&gt ; </observation> </component> <component> <observation moodCode="EVN" classCode="OBS"> <templateIdroot="2.16.840.1.916288.10.20.22.4.2" /> <id nullFlavor="NA" /> <code codeSystem=" local" code="300.2200" displayName="Calcium" /> <statusCode code="completed" /> < effectiveTime value="388110004336" /> <value unit=&quot ;MG/DL" xsi:type="PQ" value="9.2" /> < referenceRange> <observationRange> <text>8.4-10.2& lt;/text> </observationRange> </referenceRange& gt; </observation> </component> <component> <observation moodCode="EVN" classCode="OBS"> <templateId root="2.16.840.1.001606.10.20.22.4.2" /> <id nullFlavor="NA" /> <code codeSystem=&quot ;local" code="300.0095" displayName="LICTERUS" /> <statusCode code="completed" /> <effectiveTime value ="180364287083" /> <value unit="" xsi:type=& quot;PQ" value="< 2" /> <referenceRange&gt ; <observationRange> <text>0-7</text> </observationRange> </referenceRange> & lt;/observation> </component> <component> < observation moodCode="EVN" classCode="OBS"> < templateId root="2.16.840.1.378714.10.20.22.4.2" /> < id nullFlavor="NA" /> <code codeSystem="local&quot ; code="300.0096" displayName="LHEMOLYSIS" /> & lt;statusCodecode="completed" /> <effectiveTime value=& quot;636544742640" /> <value unit="" xsi:type="PQ& quot; value="< 15" /> <referenceRange> < observationRange> <text>0-25</text> </ observationRange> </referenceRange> </observation&gt ; </component> <component> <observation moodCode=& quot;EVN" classCode="OBS"> <templateId root=" 2.16.840.1.981413.10.20.22.4.2" /> <id nullFlavor="NA& quot; /> <code codeSystem="local" code="300.0097& quot; displayName="LTURBIDITY" /> <statusCode code=& quot;completed" /> <effectiveTime value="637084926951& quot; /> <value unit="" xsi:type="PQ" value=& quot;< 20" /> <referenceRange> < observationRange> <text>0-20</text> </ observationRange> </referenceRange> </observation&gt ; </component> </organizer> </entry> <entry> <organizer moodCode="EVN" classCode="BATTERY"> <templateId root="2.16.840.1.809885.10.20.22.4.1" /> < id nullFlavor="NA" /> <code codeSystem="local" code="LCMP" displayName="L200.0020" /> < statusCode code="completed" /> <component> < observation moodCode="EVN" classCode="OBS"> < templateId root="2.16.840.1.874431.10.20.22.4.2" /> < id nullFlavor="NA" /> <code codeSystem="local&quot ; code="300.0400" displayName="FUNGAL CULTURE." /> <statusCode code="completed" /> <effectiveTime value="325667472893" /> <value unit="MG/DL" xsi:type="PQ" value="1.1" /> <referenceRange& gt; <observationRange> <text>0.7-1.2</text> </observationRange> </referenceRange> & lt;/observation> </component> <component> < observation moodCode="EVN" classCode="OBS"> < templateId root="2.16.840.1.983360.10..22.4.2" /> < id nullFlavor="NA" /> <code codeSystem="local&quot ; code="300.0450" displayName="FUNGAL CULTURE, BLOOD." /&gt ; <statusCode code="completed" /> < effectiveTime value="244637646660" /> <value unit=&quot ;RATIO" xsi:type="PQ" value="10" /> < referenceRange> <observationRange> <text>6-26</ text> </observationRange> </referenceRange> </observation> </component> <component> <observation moodCode="EVN" classCode="OBS"> <templateId root="2.16.840.1.512830.10..22.4.2" /> <id nullFlavor="NA" /> <code codeSystem=" local" code="300.0100" displayName="NA - Sodium" /> <statusCode code="completed" /> < effectiveTime value="114682574652" /> <value unit=&quot ;MEQ/L" xsi:type="PQ" value="143" /> < referenceRange> <observationRange> <text> 134-144</text> </observationRange> </ referenceRange> </observation> </component> < component> <observation moodCode="EVN" classCode="OBS& quot;> <templateId root="2.16.840.1.437066.10.20.22.4.2&quot ; /> <id nullFlavor="NA" /> <code codeSystem="local" code="300.0150" displayName=" Potassium" /> <statusCode code="completed" /> <effectiveTime value="921894550924" /> < value unit="MEQ/L" xsi:type="PQ" value="3.9" /&gt ; <referenceRange> <observationRange> < text>3.6-5</text> </observationRange> </ referenceRange> </observation> </component> < component> <observation moodCode="EVN" classCode=" OBS"> <templateId root="2.16.840.1.003479.10.20.22.4.2& quot; /> <id nullFlavor="NA" /> <code codeSystem="local" code="300.0200" displayName=" Chloride" /><statusCode code="completed" /> &lt ;effectiveTime value="837987651579" /> <value unit=& quot;MEQ/L" xsi:type="PQ" value="106" /> & lt;referenceRange> <observationRange> <text& gt;98-107</text> </observationRange> </ referenceRange> </observation> </component> < component> <observation moodCode="EVN" classCode=" OBS"> <templateId root="2.16.840.1.522124.10.20.22.4.2& quot; /> <id nullFlavor="NA" /> <code codeSystem="local" code="300.0250" displayName="CO2 - Carbon Dioxide" /> <statusCode code="completed" /& gt; <effectiveTime value="730520082055" /> &lt ;value unit="MEQ/L" xsi:type="PQ" value="25" /&gt ; <referenceRange> <observationRange> & lt;text>22-30</text> </observationRange> < /referenceRange> </observation> </component> &lt ;component> <observation moodCode="EVN" classCode=" OBS"> <templateId root="2.16.840.1.176254.10.20.22.4.2& quot; /> <id nullFlavor="NA" /> <code codeSystem="local" code="300.0300" displayName="Anion Gap" /> <statusCode code="completed" /> <effectiveTime value="339651642443" /> <value unit="MEQ/L" xsi:type="PQ" value="12" /> <referenceRange> <observationRange> < text>5-15</text> </observationRange> </ referenceRange> </observation> </component> < component> <observation moodCode="EVN" classCode=" OBS"> <templateId root="2.16.840.1.648847.10..22.4.2& quot; /> <idnullFlavor="NA" /> <code codeSystem="local" code="300.0350" displayName="BUN - Blood Urea Nitrogen" /> <statusCode code="completed& quot; /> <effectiveTime value="072026893720" /> <value unit="MG/DL" xsi:type="PQ" value="11.0& quot; /> <referenceRange> <observationRange> <text>7-17</text> </observationRange&gt ; </referenceRange> </observation> </ component> <component> <observation moodCode="EVN& quot; classCode="OBS"> <templateId root=" 2.16.840.1.654233.10.20.22.4.2" /> <id nullFlavor="NA& quot; /> <code codeSystem="local" code="300.0410& quot; displayName="Glomerular Filtration Rate" /> < statusCode code="completed" /> <effectiveTime value=& quot;305946971682" /> <value unit="" xsi:type=& quot;PQ" value="58" /> <referenceRange> & lt;observationRange> <text>NRG</text> &lt ;/observationRange> </referenceRange> </observation& gt; </component> <component> <observation moodCode="EVN" classCode="OBS"> <templateId root=& quot;2.16.840.1.177356.10..22.4.2" /> <id nullFlavor=&quot ;NA" /> <code codeSystem="local" code=" 300.0500" displayName="Glucose" /> <statusCode code="completed" /> <effectiveTime value=" 020884003092" /> <value unit="MG/DL" xsi:type=& quot;PQ" value="103" /> <referenceRange> <observationRange> <text>65-110</text> </observationRange> </referenceRange> </ observation> </component> <component> < observation moodCode="EVN" classCode="OBS"> < templateId root="2.16.840.1.054816.10.20.22.4.2" /> < id nullFlavor="NA" /> <code codeSystem="local" code="300.2000" displayName="Osmolality,Calculated" /> <statusCode code="completed" /> < effectiveTime value="947531767807" /> <value unit=&quot ;MOSM/KG" xsi:type="PQ" value="274" /> < referenceRange> <observationRange> <text> 261-280</text> </observationRange> </ referenceRange> </observation> </component> < component> <observation moodCode="EVN" classCode="OBS" > <templateId root="2.16.840.1.442982.10.20.22.4.2" /& gt; <id nullFlavor="NA" /> <code codeSystem=& quot;local" code="300.2200" displayName="Calcium"/> <statusCode code="completed" /> < effectiveTime value="386167566283" /> <value unit=&quot ;MG/DL" xsi:type="PQ" value="9.8" /> < referenceRange> <observationRange> <text> 8.4-10.2</text> </observationRange> </ referenceRange> </observation> </component> < component> <observation moodCode="EVN" classCode=" OBS"> <templateId root="2.16.840.1.523503.10.20.22.4.2& quot; /> <id nullFlavor="NA" /> <code codeSystem="local" code="300.2700" displayName=" Bilirubin,Total" /> <statusCode code="completed" /> <effectiveTime value="085593770592" /> < value unit="MG/DL" xsi:type="PQ" value="0.60" /&gt ; <referenceRange> <observationRange> <text>0.20-1.30</text> </observationRange> </referenceRange> </observation> </component> <component> <observation moodCode="EVN" classCode=& quot;OBS"> <templateId root=" 2.16.840.1.157695.10.20.22.4.2" /> <id nullFlavor="NA& quot; /> <code codeSystem="local" code="300.2975& quot; displayName="Alkaline Phosphatase" /> <statusCode code=& quot;completed" /> <effectiveTime value="694461941038& quot; /> <value unit="U/L" xsi:type="PQ" value="91" /> <referenceRange> < observationRange> <text>38-126</text> &lt ;/observationRange> </referenceRange> </observation& gt; </component> <component> <observation moodCode="EVN" classCode="OBS"> <templateId root="2.16.840.1.466957.10.20.22.4.2" /> <id nullFlavor ="NA" /> <code codeSystem="local" code=" 300.3050" displayName="AST - Aspartate Amino Transfer" /> &lt ;statusCode code="completed" /> <effectiveTime value=& quot;984845488973" /> <value unit="U/L" xsi:type=& quot;PQ" value="19" /> <referenceRange> <observationRange> <text>14-36</text> </observationRange> </referenceRange> </ observation> </component> <component> < observation moodCode="EVN" classCode="OBS"> < templateId root="2.16.840.1.762075.10.20.22.4.2" /> < id nullFlavor="NA" /> <code codeSystem="local&quot ; code="300.3100" displayName="ALT" /> < statusCode code="completed" /> <effectiveTime value=& quot;337738839718" /> <value unit="U/L" xsi:type=& quot;PQ" value="40" /> <referenceRange> <observationRange> <text>9-52</text> </observationRange> </referenceRange> </ observation> </component> <component> < observation moodCode="EVN" classCode="OBS"> < templateId root="2.16.840.1.088798.10.20.22.4.2" /> < id nullFlavor="NA" /> <code codeSystem="local&quot ; code="300.3110" displayName="TP - Total Protein" /> <statusCode code="completed" /> < effectiveTime value="055169381944" /> <value unit=&quot ;G/DL" xsi:type="PQ" value="7.3" /> < referenceRange> <observationRange> <text>6.3- 8.2</text> </observationRange> </ referenceRange> </observation> </component> < component> <observation moodCode="EVN" classCode=" OBS"> <templateId root="2.16.840.1.123629.10.20.22.4.2&quot ; /> <id nullFlavor="NA" /> <code codeSystem="local" code="300.3120" displayName=" Albumin Level" /> <statusCode code="completed" /& gt; <effectiveTime value="106896649601" /> <value unit="G/DL" xsi:type="PQ" value="4.4" /> <referenceRange> <observationRange> < text>3.5-5.0</text> </observationRange> </ referenceRange> </observation> </component> < component> <observation moodCode="EVN" classCode=" OBS"> <templateId root="2.16.840.1.350355.10.20.22.4.2& quot; /> <id nullFlavor="NA" /> <code codeSystem="local" code="300.3130" displayName=" Globulin" /> <statusCode code="completed" /> <effectiveTime value="[id number]" /> < value unit="G/DL" xsi:type="PQ" value="2.9" /> <referenceRange> <observationRange> & lt;text>2.4-3.6</text> </observationRange> & lt;/referenceRange> </observation> </component> <component> <observation moodCode="EVN" classCode=& quot;OBS"> <templateId root=" [id number]" /> <id nullFlavor="NA& quot; /> <code codeSystem="local" code="300.3140& quot; displayName="Albumin/Globulin Ratio" /> < statusCode code="completed" /> <effectiveTime value=& quot;[id number]" /> <value unit="RATIO" xsi:type ="PQ" value="1.5" /> <referenceRange> <observationRange> <text>1.1-2.2</text> </observationRange> </referenceRange> </ observation> </component> <component> < observation moodCode="EVN" classCode="OBS"> < templateId root="2.16.840.1.319815.10.20.22.4.2" /> < id nullFlavor="NA" /> <code codeSystem="local&quot ; code="300.0095" displayName="LICTERUS" /> < statusCode code="completed" /> <effectiveTime value=& quot;288137348221" /> <value unit="" xsi:type=& quot;PQ" value="< 2" /> <referenceRange&gt ; <observationRange> <text>0-7</text> </observationRange> </referenceRange> & lt;/observation> </component> <component> < observation moodCode="EVN" classCode="OBS"> < templateId root="2.16.840.1.271604.10.20.22.4.2" /> < id nullFlavor="NA" /> <code codeSystem="local&quot ; code="300.0096" displayName="LHEMOLYSIS" /> & lt;statusCode code="completed" /> <effectiveTime value= "788563638994" /> <value unit="" xsi:type=" PQ" value="< 15" /> <referenceRange> <observationRange> <text>0-25</text> </observationRange> </referenceRange> </ observation> </component> <component> < observation moodCode="EVN" classCode="OBS"> < templateId root="2.16.840.1.873121.10.20.22.4.2" /> < id nullFlavor="NA" /> <code codeSystem="local&quot ; code="300.0097" displayName="LTURBIDITY" /> & lt;statusCode code="completed" /> <effectiveTime value= "629735987475" /> <value unit="" xsi:type=& quot;PQ" value="< 20" /> <referenceRange&gt ; <observationRange> <text>0-20</text&gt ; </observationRange> </referenceRange> & lt;/observation> </component> </organizer> </entry&gt ; <entry> <organizer moodCode="EVN" classCode=" BATTERY"> <templateId root="2.16.840.1.985755.10.20.22.4.1& quot; /> <id nullFlavor="NA" /> <code codeSystem ="local" code="LTSH" displayName="L200.3850" /&gt ; <statusCode code="completed" /> <component> <observation moodCode="EVN" classCode="OBS"> <templateId root="2.16.840.1.848296.10.20.22.4.2" /> <id nullFlavor="NA" /> <code codeSystem=" local" code="300.5500" displayName="TSH - Thyroid Stim Hormone" /> <statusCode code="completed" /> <effectiveTime value="308462409384" /> < value unit="MIU/L" xsi:type="PQ" value="1.90" /&gt ; <referenceRange> <observationRange> <text>0.47-4.68</text> </observationRange> < /referenceRange> </observation> </component> </ organizer> </entry> <entry> <organizer moodCode="EVN " classCode="BATTERY"> <templateId root=" 2.16.840.1.446710.10.20.22.4.1" /> <id nullFlavor="NA&quot ; /> <code codeSystem="local"code="LMAG" displayName="L200.2000" /> <statusCode code="completed " /> <component> <observation moodCode="EVN& quot; classCode="OBS"> <templateId root=" 2.16.840.1.317401.10.20.22.4.2" /><id nullFlavor="NA" /&gt ; <code codeSystem="local" code="300.2350" displayName="MAG - Magnesium" /> <statusCode code=&quot ;completed" /> <effectiveTime value="134372795207&quot ; /> <value unit="MG/DL" xsi:type="PQ" value= "1.9" /> <referenceRange> < observationRange> <text>1.6-2.3</text> & lt;/observationRange> </referenceRange> </ observation> </component> </organizer> </entry> & lt;entry> <organizer moodCode="EVN" classCode="BATTERY& quot;> <templateId root="2.16.840.1.733217.10.20.22.4.1" /& gt; <id nullFlavor="NA" /> <code codeSystem=" local" code="LLDH" displayName="L200.1855" /> & lt;statusCode code="completed" /> <component> &lt ;observation moodCode="EVN" classCode="OBS"> &lt ;templateId root="2.16.840.1.766799.10.20.22.4.2" /> < id nullFlavor="NA" /> <code codeSystem="local&quot ; code="300.3250" displayName="LDH - Lactate Dehydrogenase" /> <statusCode code="completed" /> < effectiveTime value="623187017587" /> <value unit=&quot ;U/L" xsi:type="PQ" value="417" /> < referenceRange> <observationRange> <text> 313-168</text> </observationRange> </ referenceRange> </observation> </component> </ organizer> </entry> <entry> <organizer moodCode="EVN " classCode="BATTERY"> <templateId root=" 2.16.840.1.069635.10.20.22.4.1" /> <id nullFlavor="NA&quot ; /> <code codeSystem="local" code="LT4F" displayName="L200.3600" /> <statusCode code="completed " /> <component> <observation moodCode="EVN& quot; classCode="OBS"> <templateId root=" 2.16.840.1.289048.10.20.22.4.2" /> <id nullFlavor="NA& quot; /> <code codeSystem="local" code="300.5250& quot; displayName="Free T4 (Free Thyroxine)-Batch" /> < statusCode code="completed" /> <effectiveTime value=& quot;215960962554" /> <valueunit="NG/DL" xsi:type= "PQ" value="1.19" /> <referenceRange> <observationRange> <text>0.78-2.19</text&gt ; </observationRange> </referenceRange> </ observation> </component> </organizer> </entry> & lt;entry> <organizer moodCode="EVN" classCode="BATTERY& quot;> <templateId root="2.16.840.1.578809.10.20.22.4.1" /& gt; <id nullFlavor="NA" /> <code codeSystem=" local" code="LACTH-A" displayName="L750.0200" /> <statusCode code="completed" /> <component> <observation moodCode="EVN" classCode="OBS"> <templateId root="2.16.840.1.553402.10.20.22.4.2" /> <id nullFlavor="NA" /> <code codeSystem="local" code="902.0325" displayName="LACTH-A" /> < statusCode code="completed"/> <effectiveTime value=& quot;477197068737" /> <value unit="pg/mL" xsi:type ="PQ" value="17" /> <referenceRange> & lt;observationRange> <text>NRG</text> &lt ;/observationRange> </referenceRange> </observation& gt; </component> </organizer> </entry> <entry&gt ; <organizer moodCode="EVN" classCode="BATTERY"> <templateId root="2.16.840.1.787439.10.20.22.4.1" /> & lt;id nullFlavor="NA" /> <code codeSystem="local&quot ; code="LCORTA-A" displayName="L750.2985" /> < statusCode code="completed" /> <component> < observation moodCode="EVN" classCode="OBS"> < templateId root="2.16.840.1.476325.10.20.22.4.2" /> < id nullFlavor="NA" /> <code codeSystem="local&quot ; code="902.5650" displayName="Cortisol AM, Serum - AMS" /& gt; <statusCode code="completed" /> < effectiveTime value="956348590915" /> <value unit=&quot ;ug/dL" xsi:type="PQ" value="5" /> < referenceRange> <observationRange> <text>3-20</ text> </observationRange> </referenceRange> </observation> </component> </organizer> </ entry> <entry> <organizer moodCode="EVN" classCode=& quot;BATTERY"> <templateId root=" 2.16.840.1.834830.10.20.22.4.1" /> <id nullFlavor="NA&quot ; /> <code codeSystem="local" code="LSTLCDIFFB" displayName="L550.4000" /> <statusCode code="completed " /> <component> <observation moodCode="EVN" classCode="OBS"> <templateId root=" 2.16.840.1.174285.10.20.22.4.2" /> <id nullFlavor="NA& quot; /> <code codeSystem="local" code="550.4010& quot; displayName="C Diff Tox B PCR, Stool" /> < statusCode code="completed" /> <effectiveTime value=& quot;788239842352" /> <value unit="" xsi:type=& quot;PQ" value="Negative" /> <referenceRange> <observationRange> <text>Negative</text> </observationRange> </referenceRange> </ observation> </component> </organizer> </entry> & lt;entry> <organizer moodCode="EVN" classCode="BATTERY& quot;> <templateId root="2.16.840.1.181692.10.20.22.4.1" /& gt;<id nullFlavor="NA" /> <code codeSystem="local& quot; code="LCBC" displayName="L100.0050" /> < statusCode code="completed" /><component> < observation moodCode="EVN" classCode="OBS"> < templateId root="2.16.840.1.673443.10.20.22.4.2" /> < id nullFlavor="NA" /> <code codeSystem="local&quot ; code="100.0150" displayName="WBC - WHITE BLOOD COUNT" /&gt ; <statusCode code="completed" /> < effectiveTime value="506715043403" /> <value unit=&quot ;T/MM3" xsi:type="PQ" value="15.0" /> < interpretationCode codeSystem="local" code="*" /> <referenceRange> <observationRange> < text>4.5-11.0</text> </observationRange> </ referenceRange> </observation> </component> < component> <observation moodCode="EVN" classCode=" OBS"> <templateId root="2.16.840.1.640254.10.20.22.4.2& quot; /> <id nullFlavor="NA" /> <code codeSystem="local" code="100.0250" displayName="RED BLOOD COUNT" /> <statusCode code="completed" /&gt ; <effectiveTime value="732647144702" /> < value unit="M/MM3" xsi:type="PQ" value="5.02" /&gt ; <referenceRange> <observationRange> <text>4.00-5.20</text> </observationRange> </referenceRange> </observation> </component&gt ; <component> <observation moodCode="EVN" classCode=& quot;OBS"> <templateId root=" 2.16.840.1.739927.10.20.22.4.2" /> <id nullFlavor="NA& quot; /> <code codeSystem="local" code="100.0300" displayName="HGB - HEMOGLOBIN" /> <statusCode code=& quot;completed" /> <effectiveTime value="413487804989& quot; /> <value unit="GM/DL" xsi:type="PQ" value="13.7" /> <referenceRange> < observationRange> <text>12-16</text> </ observationRange> </referenceRange> </observation&gt ; </component> <component> <observation moodCode ="EVN" classCode="OBS"> <templateId root=& quot;2.16.840.1.357772.10.20.22.4.2" /> <id nullFlavor=&quot ;NA" /> <code codeSystem="local" code=" 100.0400" displayName="HCT - HEMATOCRIT" /> < statusCode code="completed" /> <effectiveTime value=& quot;037477146805" /> <value unit="%" xsi: type="PQ" value="41.5" /> <referenceRange&gt ; <observationRange> <text>36-46</text> </observationRange> </referenceRange> </ observation> </component> <component> < observation moodCode="EVN" classCode="OBS"> < templateId root="2.16.840.1.323480.10.20.22.4.2" /> < id nullFlavor="NA" /> <code codeSystem="local&quot ; code="100.0550" displayName="MEAN CORPUSCULAR VOLUME" /&gt ; <statusCode code="completed" /> < effectiveTime value="138363019518" /> <value unit=&quot ;UM3" xsi:type="PQ" value="82.7" /> < referenceRange> <observationRange> <text> 80-100</text> </observationRange> </ referenceRange> </observation> </component> < component> <observation moodCode="EVN" classCode=" OBS"> <templateId root="2.16.840.1.757316.10.20.22.4.2& quot; /> <id nullFlavor="NA" /> <code codeSystem="local" code="100.0600" displayName="MEAN CORPUSCULAR HGB" /> <statusCode code="completed" /> <effectiveTime value="786786390969" /> < value unit="UUG" xsi:type="PQ" value="27.3" /> <referenceRange> <observationRange> <text>26-34</text> </observationRange> </referenceRange> </observation> </component> <component> <observation moodCode="EVN" classCode=& quot;OBS"> <templateId root=" 2.16.840.1.289159.10.20.22.4.2" /> <id nullFlavor="NA& quot; /> <code codeSystem="local" code="100.0650& quot; displayName="MEAN CORPUSCULAR HGB CONC(MCHC" /> < statusCode code="completed" /> <effectiveTime value=& quot;438827499693" /> <value unit="GM/DL" xsi:type ="PQ" value="33.0" /> <referenceRange> <observationRange> <text>31-37</text> </observationRange> </referenceRange> < /observation> </component> <component> < observation moodCode="EVN" classCode="OBS"> < templateId root="2.16.840.1.017923.10..22.4.2" /> < id nullFlavor="NA" /> <code codeSystem="local&quot ; code="100.0750" displayName="RDW STANDARD DEVIATION" /&gt ; <statusCode code="completed" /> <effectiveTime value="510002825177" /> <value unit="FL" xsi: type="PQ" value="39.7" /> <referenceRange&gt ; <observationRange> <text>36.9-50.2</ text> </observationRange> </referenceRange> </observation> </component> <component> <observation moodCode="EVN" classCode="OBS"> <templateId root="2.16.840.1.173013.10.20.22.4.2" /> <id nullFlavor="NA" /> <code codeSystem=" local" code="100.0850" displayName="PLT - PLATELET COUNT& quot; /> <statusCode code="completed" /> & lt;effectiveTime value="441905843284"/> <value unit=& quot;T/MM3" xsi:type="PQ" value="340" /> < referenceRange> <observationRange> <text> 130-400</text> </observationRange> </ referenceRange> </observation> </component> < component> <observation moodCode="EVN" classCode=" OBS"> <templateId root="2.16.840.1.347088.10.20.22.4.2& quot; /> <id nullFlavor="NA" /> <code codeSystem="local" code="100.0950" displayName="MEAN PLATELET VOLUME" /> <statusCode code="completed" / > <effectiveTime value="481604879526" /> &lt ;value unit="UM3" xsi:type="PQ" value="9.5" />& lt;referenceRange> <observationRange> <text& gt;9.4-12.4</text> </observationRange> </ referenceRange> </observation> </component> < component> <observation moodCode="EVN" classCode=" OBS"> <templateId root="2.16.840.1.986069.10.20.22.4.2& quot; /> <id nullFlavor="NA" /> <code codeSystem="local" code="100.1050" displayName=" NEUTROPHILS % (AUTO)" /> <statusCode code=" completed" /> <effectiveTime value="013930365740" /> <value unit="%" xsi:type="PQ" value="67.8" /> <interpretationCode codeSystem=" local" code="*" /> <referenceRange> <observationRange> <text>33-66</text> </ observationRange> </referenceRange> </observation&gt ; </component> <component> <observation moodCode ="EVN" classCode="OBS"> <templateId root=& quot;2.16.840.1.279348.10.20.22.4.2" /> <id nullFlavor="NA&quot ; /> <code codeSystem="local" code="100.1100&quot ; displayName="LYMPHOCYTES % (AUTO)" /> < statusCode code="completed" /> <effectiveTime value=& quot;685379484630" /><value unit="%" xsi:type=&quot ;PQ" value="20.9" /> <interpretationCode codeSystem="local" code="*" /> < referenceRange> <observationRange> <text> 23-45</text> </observationRange> </ referenceRange> </observation> </component> < component> <observation moodCode="EVN" classCode=" OBS"> <templateId root="2.16.840.1.610913.10.20.22.4.2& quot; /> <id nullFlavor="NA" /> <code codeSystem="local" code="100.1150" displayName=" MONOCYTES % (AUTO)" /> <statusCode code=" completed" /> <effectiveTime value="260359196016" /> <value unit="%" xsi:type="PQ" value="6.5" /> <referenceRange> < observationRange> <text>0-9.0</text> < /observationRange> </referenceRange> </observation& gt; </component> <component> <observation moodCode="EVN" classCode="OBS"> <templateId root="2.16.840.1.095664.10.20.22.4.2" /> <id nullFlavor ="NA" /> <code codeSystem="local" code=" 100.1200" displayName="EOSINOPHILS % (AUTO)" /> <statusCode code="completed" /> <effectiveTime value="325043989751" /> <value unit="%& quot; xsi:type="PQ" value="4.0" /> < referenceRange> <observationRange> <text> 0-4</text></observationRange> </referenceRange> </observation> </component> <component> & lt;observation moodCode="EVN" classCode="OBS"> & lt;templateId root="2.16.840.1.546284.10.20.22.4.2" /> &lt ;id nullFlavor="NA" /> <code codeSystem="local& quot; code="100.1250" displayName="BASOPHILS % (AUTO)& quot; /> <statusCode code="completed" /> & lt;effectiveTime value="498343711319" /> <value unit=& quot;%" xsi:type="PQ" value="0.4" /> <referenceRange> <observationRange> < text>0-2</text></observationRange> </referenceRange& gt; </observation> </component> <component> <observation moodCode="EVN" classCode="OBS"> <templateId root="2.16.840.1.407364.10.20.22.4.2" /> <id nullFlavor="NA" /> <code codeSystem=&quot ;local" code="100.1275" displayName="IMMATURE GRANULOCYTE & amp;#37; (AUTO)" /> <statusCode code="completed" / > <effectiveTime value="074769046402" /> < value unit="%" xsi:type="PQ" value="0.4" / ><referenceRange> <observationRange> < text>0.0-0.5</text> </observationRange> </ referenceRange> </observation> </component> < component> <observation moodCode="EVN" classCode=" OBS"> <templateId root="2.16.840.1.422573.10.20.22.4.2& quot; /> <id nullFlavor="NA" /> <code codeSystem="local" code="100.1300" displayName=" NEUTROPHILS # (AUTO)" /> <statusCode code="completed& quot; /> <effectiveTime value="334825286298" /> < value unit="T/MM3" xsi:type="PQ" value="10.1" /&gt ; <interpretationCode codeSystem="local" code="*&quot ; /> <referenceRange> <observationRange> <text>1.8-7.7</text> </observationRange> </referenceRange> </observation> </ component> <component> <observation moodCode="EVN& quot; classCode="OBS"> <templateId root=" 2.16.840.1.552813.10.20.22.4.2" /> <id nullFlavor="NA& quot; /> <code codeSystem="local" code="100.1350& quot; displayName="LYMPHOCYTES # (AUTO)" /> < statusCode code="completed" /> <effectiveTime value=& quot;261062242471" /> <value unit="T/MM3" xsi:type ="PQ" value="3.1" /> <referenceRange> <observationRange> <text>1-4.8</text> </observationRange> </referenceRange> </ observation> </component> <component> < observation moodCode="EVN" classCode="OBS"> < templateId root="2.16.840.1.780939.10.20.22.4.2" /> < id nullFlavor="NA" /> <code codeSystem="local&quot ; code="100.1400" displayName="MONOCYTES # (AUTO)" /> <statusCode code="completed" /> <effectiveTime value="788615886433" /> <value unit="T/MM3" xsi:type="PQ" value="1.0" /> < interpretationCode codeSystem="local" code="*" /> <referenceRange> <observationRange> < text>0-0.8</text> </observationRange> </ referenceRange> </observation> </component> < component> <observation moodCode="EVN" classCode="OBS&quot ;> <templateId root="2.16.840.1.408164.10.20.22.4.2" /& gt; <id nullFlavor="NA" /> <code codeSystem=& quot;local" code="100.1450" displayName="EOSINOPHILS # (AUTO )" /> <statusCode code="completed" /> <effectiveTime value="447815873237" /> <value unit=& quot;T/MM3" xsi:type="PQ" value="0.6" /> & lt;interpretationCode codeSystem="local" code="*" /> <referenceRange> <observationRange> & lt;text>0-0.5</text> </observationRange> < /referenceRange> </observation> </component> < component> <observation moodCode="EVN" classCode=" OBS"> <templateId root="2.16.840.1.491628.10..22.4.2& quot; /> <id nullFlavor="NA" /> <code codeSystem="local" code="100.1500" displayName=" BASOPHILS # (AUTO)" /> <statusCode code="completed" /&gt ; <effectiveTime value="970628120715" /> < value unit="T/MM3" xsi:type="PQ" value="0.1" /&gt ; <referenceRange> <observationRange> <text>0-0.2</text> </observationRange> </referenceRange> </observation> </component> <component> <observation moodCode="EVN" classCode= "OBS"> <templateId root=" 2.16.840.1.856551.10.20.22.4.2" /> <id nullFlavor="NA& quot; /> <code codeSystem="local" code="100.1525& quot; displayName="IMMATURE GRANULOCYTE # (AUTO)" /> < statusCode code="completed" /> <effectiveTime value=& quot;237378155050" /> <value unit="T/MM3" xsi:type ="PQ" value="0.06" /> <interpretationCode codeSystem="local" code="*" /> <referenceRange> <observationRange> <text>0.00-0.03</text > </observationRange> </referenceRange> </observation> </component> </organizer> </ entry> <entry> <organizermoodCode="EVN" classCode=& quot;BATTERY"> <templateId root=" 2.16.840.1.653282.10.20.22.4.1" /> <id nullFlavor="NA&quot ; /> <code codeSystem="local" code="LCMP" displayName="L200.0020" /> <statusCode code="completed " /> <component> <observation moodCode="EVN& quot; classCode="OBS"> <templateId root=" 2.16.840.1.634143.10.20.22.4.2" /> <id nullFlavor="NA& quot; /> <code codeSystem="local" code="300.0400& quot; displayName="FUNGAL CULTURE." /> <statusCode code ="completed" /> <effectiveTime value="198168449446 " /> <value unit="MG/DL" xsi:type="PQ" value=& quot;1.1" /> <referenceRange> < observationRange> <text>0.7-1.2</text> &lt ;/observationRange> </referenceRange> </observation& gt; </component> <component> <observation moodCode=& quot;EVN" classCode="OBS"> <templateId root=" 2.16.840.1.753590.10.20.22.4.2" /> <id nullFlavor="NA&quot ; /> <code codeSystem="local" code="300.0450&quot ; displayName="FUNGAL CULTURE, BLOOD." /> <statusCode code="completed" /> <effectiveTime value=" 261260328169" /> <value unit="RATIO" xsi:type=& quot;PQ" value="12" /> <referenceRange> <observationRange> <text>6-26</text> </ observationRange> </referenceRange> </observation&gt ; </component> <component> <observation moodCode ="EVN" classCode="OBS"> <templateId root=& quot;2.16.840.1.995403.10.20.22.4.2" /> <id nullFlavor=&quot ;NA" /> <code codeSystem="local" code=" 300.0100" displayName="NA - Sodium" /> < statusCode code="completed" /> <effectiveTime value=& quot;850575326051" /> <value unit="MEQ/L" xsi:type ="PQ" value="141" /> <referenceRange> <observationRange> <text>134-144</text> </observationRange> </referenceRange> </ observation> </component> <component> < observation moodCode="EVN" classCode="OBS"> < templateId root="2.16.840.1.257573.10.20.22.4.2" /> < id nullFlavor="NA" /> <code codeSystem="local&quot ; code="300.0150" displayName="Potassium" /> &lt ;statusCode code="completed" /><effectiveTime value=" 513146013060" /> <value unit="MEQ/L" xsi:type=& quot;PQ" value="3.7" /> <referenceRange> <observationRange> <text>3.6-5</text> </observationRange> </referenceRange> </ observation> </component> <component> < observation moodCode="EVN" classCode="OBS"> < templateId root="2.16.840.1.981785.10..22.4.2" /> < id nullFlavor="NA" /> <code codeSystem="local&quot ; code="300.0200" displayName="Chloride" /> < statusCode code="completed" /> <effectiveTime value=& quot;026871004708" /> <value unit="MEQ/L" xsi:type ="PQ"value="105" /> <referenceRange> <observationRange> <text>98-107</text> </observationRange> </referenceRange> </ observation> </component> <component> < observation moodCode="EVN" classCode="OBS"> < templateId root="2.16.840.1.282159.10..22.4.2" /> < id nullFlavor="NA" /> <code codeSystem="local&quot ; code="300.0250" displayName="CO2 - Carbon Dioxide" /> <statusCode code="completed" /> < effectiveTime value="652048029724" /> <value unit=&quot ;MEQ/L" xsi:type="PQ" value="28" /> < referenceRange> <observationRange><text>22-30</text > </observationRange> </referenceRange> </observation> </component> <component> &lt ;observation moodCode="EVN" classCode="OBS"> &lt ;templateId root="2.16.840.1.912127.10.20.22.4.2" /> < id nullFlavor="NA" /> <code codeSystem="local&quot ; code="300.0300" displayName="Anion Gap" /> &lt ;statusCode code="completed" /> <effectiveTime value=& quot;195110767778" /> <value unit="MEQ/L" xsi:type ="PQ" value="8" /> <referenceRange> <observationRange> <text>5-15</text> </observationRange> </referenceRange> </ observation> </component> <component> < observation moodCode="EVN"classCode="OBS"> < templateId root="2.16.840.1.220357.10.20.22.4.2" /> < id nullFlavor="NA" /> <code codeSystem="local&quot ; code="300.0350" displayName="BUN - Blood Urea Nitrogen" /& gt; <statusCode code="completed" /> < effectiveTime value="956198372796" /> <value unit=&quot ;MG/DL" xsi:type="PQ" value="13.0" /> < referenceRange> <observationRange> <text> 7-17</text> </observationRange> </ referenceRange> </observation> </component> < component> <observation moodCode="EVN" classCode=" OBS"> <templateId root="2.16.840.1.753450.10.20.22.4.2& quot; /> <id nullFlavor="NA" /> <code codeSystem="local" code="300.0410" displayName=" Glomerular Filtration Rate" /> <statusCode code=" completed" /> <effectiveTime value="991276348435" /> <value unit="" xsi:type="PQ" value="58 " /> <referenceRange> <observationRange&gt ; <text>NRG</text> </observationRange> </referenceRange> </observation> </component&gt ; <component> <observation moodCode="EVN" classCode="OBS"> <templateId root=" 2.16.840.1.628328.10.20.22.4.2" /> <id nullFlavor="NA" /& gt; <code codeSystem="local" code="300.0500" displayName="Glucose" /> <statusCode code=" completed" /> <effectiveTime value="108695349518" /> <value unit="MG/DL" xsi:type="PQ" value=& quot;104" /> <referenceRange> <observationRange& gt; <text>65-110</text> </ observationRange> </referenceRange> </observation&gt ; </component> <component> <observation moodCode=& quot;EVN" classCode="OBS"> <templateId root=" 2.16.840.1.325642.10.20.22.4.2" /> <id nullFlavor="NA& quot; /> <code codeSystem="local" code="300.2000& quot; displayName="Osmolality,Calculated" /> < statusCode code="completed" /> <effectiveTime value=& quot;[id number]" /> <value unit="MOSM/KG" xsi: type="PQ" value="271" /> <referenceRange> <observationRange> <text>261-280</text> </observationRange> </referenceRange> </ observation> </component> <component> < observation moodCode="EVN" classCode="OBS"> < templateId root="[id number]" /> < id nullFlavor="NA" /> <code codeSystem="local&quot ; code="300.2200" displayName="Calcium" /> < statusCode code="completed" /> <effectiveTime value=& quot;[id number]" /> <value unit="MG/DL" xsi:type ="PQ" value="9.7" /> <referenceRange> <observationRange> <text>8.4-10.2</text> </observationRange> </referenceRange> </ observation> </component> <component> < observation moodCode="EVN" classCode="OBS"> < templateIdroot="[id number]" /> <id nullFlavor="NA" /> <code codeSystem="local" code="300.2700" displayName="Bilirubin,Total" /> <statusCode code="completed" /> <effectiveTime value="937121686733" /> <value unit="MG/DL" xsi:type="PQ" value="0.60" /> <referenceRange > <observationRange> <text>0.20-1.30</ text> </observationRange> </referenceRange> </observation> </component> <component> <observation moodCode="EVN" classCode="OBS"> <templateId root="2.16.840.1.078754.10.20.22.4.2" /> <id nullFlavor="NA" /> <code codeSystem="local&quot ; code="300.2975" displayName="Alkaline Phosphatase" /> <statusCode code="completed" /> < effectiveTime value="289841798809" /> <value unit=&quot ;U/L" xsi:type="PQ" value="88" /> < referenceRange> <observationRange> <text>38-126& lt;/text> </observationRange> </referenceRange& gt; </observation> </component> <component> <observation moodCode="EVN" classCode="OBS"> <templateId root="2.16.840.1.097088.10.20.22.4.2" /> <id nullFlavor="NA" /> <code codeSystem=&quot ;local" code="300.3050" displayName="AST - Aspartate Amino Transfer" /> <statusCode code="completed" /> <effectiveTime value="282735774771" /> < value unit="U/L" xsi:type="PQ" value="20" /> <referenceRange> <observationRange> <text >14-36</text> </observationRange> </ referenceRange> </observation> </component> < component> <observation moodCode="EVN" classCode=" OBS"> <templateId root="2.16.840.1.943635.10.20.22.4.2& quot; /> <id nullFlavor="NA" /> < codecodeSystem="local" code="300.3100" displayName="ALT " /> <statusCode code="completed" /> & lt;effectiveTime value="959625948633" /> <value unit=& quot;U/L" xsi:type="PQ" value="44" /> < referenceRange> <observationRange> <text> 9-52</text> </observationRange> </ referenceRange> </observation> </component> < component> <observation moodCode="EVN" classCode=" OBS"> <templateId root="2.16.840.1.320491.10.20.22.4.2& quot;/> <id nullFlavor="NA" /> <code codeSystem="local"code="300.3110" displayName="TP - Total Protein" /> <statusCode code="completed" /& gt; <effectiveTime value="484878923868" /> <value unit="G/DL" xsi:type="PQ" value="6.9" /> <referenceRange> <observationRange> < text>6.3-8.2</text> </observationRange> </ referenceRange> </observation> </component> < component> <observation moodCode="EVN" classCode=" OBS"> <templateId root="2.16.840.1.801034.10.20.22.4.2& quot; /> <id nullFlavor="NA" /> <code codeSystem="local" code="300.3120" displayName=" Albumin Level" /> <statusCode code="completed" /& gt; <effectiveTime value="673687533512" /> &lt ;value unit="G/DL" xsi:type="PQ" value="4.2" /&gt ; <referenceRange> <observationRange> <text>3.5-5.0</text> </observationRange> </referenceRange> </observation> </component> <component> <observation moodCode="EVN" classCode="OBS"> <templateId root=" 2.16.840.1.914971.10.20.22.4.2" /> <id nullFlavor="NA& quot; /> <code codeSystem="local" code="300.3130& quot; displayName="Globulin" /> <statusCode code=" completed" /> <effectiveTime value="796664918754" /& gt; <value unit="G/DL" xsi:type="PQ" value=&quot ;2.7" /> <referenceRange> <observationRange > <text>2.4-3.6</text> </ observationRange> </referenceRange> </observation&gt ; </component> <component> <observation moodCode ="EVN" classCode="OBS"> <templateId root=& quot;2.16.840.1.082325.10.20.22.4.2" /> <id nullFlavor=&quot ;NA" /> <code codeSystem="local" code=" 300.3140" displayName="Albumin/Globulin Ratio" /> &lt ;statusCode code="completed" /> <effectiveTime value=" 769923590165" /> <value unit="RATIO" xsi:type=& quot;PQ" value="1.6" /> <referenceRange> <observationRange> <text>1.1-2.2</text> </observationRange> </referenceRange> </ observation> </component> <component> < observation moodCode="EVN" classCode="OBS"> < templateId root="2.16.840.1.178715.10.20.22.4.2" /> < id nullFlavor="NA" /> <code codeSystem="local&quot ; code="300.0095" displayName="LICTERUS" /> < statusCode code="completed" /> <effectiveTime value=& quot;552091947038" /> <value unit="" xsi:type=& quot;PQ" value="< 2" /> <referenceRange&gt ; <observationRange> <text>0-7</text> </observationRange> </referenceRange> & lt;/observation> </component> <component> < observation moodCode="EVN" classCode="OBS"> < templateId root="2.16.840.1.990431.10.20.22.4.2" /> < id nullFlavor="NA" /> <code codeSystem="local&quot ; code="300.0096" displayName="LHEMOLYSIS" /> & lt;statusCode code="completed" /> <effectiveTime value= "861720023775" /> <value unit="" xsi:type=& quot;PQ" value="< 15" /> <referenceRange&gt ; <observationRange> <text>0-25</text&gt ; </observationRange> </referenceRange> </ observation> </component> <component> < observation moodCode="EVN" classCode="OBS"> < templateId root="2.16.840.1.885691.10.20.22.4.2" /> < id nullFlavor="NA" /> <code codeSystem="local&quot ; code="300.0097" displayName="LTURBIDITY" /> & lt;statusCode code="completed" /> <effectiveTime value= "299581534508" /> <value unit="" xsi:type=& quot;PQ" value="< 20" /> <referenceRange&gt ; <observationRange> <text>0-20</text&gt ; </observationRange> </referenceRange> & lt;/observation> </component> </organizer> </entry&gt ; <entry> <organizer moodCode="EVN" classCode=" BATTERY"> <templateId root="2.16.840.1.109593.10.20.22.4.1& quot; /> <id nullFlavor="NA" /> <code codeSystem ="local" code="LMAG" displayName="L200.2000" /&gt ; <statusCodecode="completed" /> <component> <observation moodCode="EVN" classCode="OBS"> <templateId root="2.16.840.1.558249.10.20.22.4.2" /> <id nullFlavor="NA" /> <code codeSystem=" local" code="300.2350" displayName="MAG - Magnesium" /& gt; <statusCode code="completed" /> < effectiveTime value="929105975117" /> <value unit="MG/DL " xsi:type="PQ" value="2.0" /> < referenceRange> <observationRange> <text> 1.6-2.3</text> </observationRange> </ referenceRange> </observation> </component> </ organizer> </entry> <entry> <organizer moodCode="EVN " classCode="BATTERY"> <templateId root=" 2.16.840.1.412594.10.20.22.4.1" /> <id nullFlavor="NA&quot ; /> <code codeSystem="local" code="LLDH" displayName="L200.1855" /> <statusCode code="completed " /> <component> <observation moodCode="EVN& quot; classCode="OBS"> <templateId root=" 2.16.840.1.016771.10.20.22.4.2" /> <id nullFlavor="NA& quot; /> <code codeSystem="local" code="300.3250& quot; displayName="LDH - Lactate Dehydrogenase" /> < statusCode code="completed" /> <effectiveTime value=& quot;452772150949" /> <value unit="U/L" xsi:type=&quot ;PQ" value="409" /> <referenceRange> <observationRange> <text>313-618</text> </observationRange> </referenceRange> </ observation> </component> </organizer> </entry> < entry> <organizer moodCode="EVN" classCode="BATTERY&quot ;> <templateId root="2.16.840.1.208451.10.20.22.4.1" /> <id nullFlavor="NA" /> <code codeSystem=" local" code="KWABENA" displayName="L600.0100" /> & lt;statusCode code="completed" /> <component> &lt ;observation moodCode="EVN" classCode="OBS"> &lt ;templateId root="2.16.840.1.668662.10.20.22.4.2" /> <id nullFlavor="NA" /> <code codeSystem="local" code="200.0150" displayName="POTASSIUM" /> < statusCode code="completed" /> <effectiveTime value=& quot;147795600084" /> <value unit="" xsi:type=& quot;PQ" value="Not Provided" /> <referenceRange& gt; <observationRange> <text>NRG</text&gt ; </observationRange> </referenceRange> & lt;/observation> </component> <component> < observation moodCode="EVN" classCode="OBS"> < templateId root="2.16.840.1.022262.10.20.22.4.2" /> < id nullFlavor="NA" /> <code codeSystem="local&quot ; code="200.0200" displayName="CHLORIDE" /> < statusCode code="completed" /> <effectiveTime value=" 673959528543" /> <value unit="" xsi:type="PQ& quot; value="YELLOW" /> <referenceRange> <observationRange> <text>YELLOW</text> </observationRange> </referenceRange> </ observation> </component> <component> < observation moodCode="EVN" classCode="OBS"> < templateId root="2.16.840.1.707535.10.20.22.4.2" /> < id nullFlavor="NA" /> <code codeSystem="local&quot ; code="200.0300" displayName="ANION GAP" /> &lt ;statusCode code="completed" /> <effectiveTime value=& quot;992960068550" /> <value unit="" xsi:type=& quot;PQ" value="SL CLOUDY" /> <referenceRange> <observationRange> <text>NRG</text> </observationRange> </referenceRange> &lt ;/observation> </component> <component> < observation moodCode="EVN" classCode="OBS"> < templateId root="2.16.840.1.639198.10.20.22.4.2" /> < id nullFlavor="NA" /> <code codeSystem="local&quot ; code="200.0350" displayName="BLOOD UREA NITROGEN" /> <statusCode code="completed" /> < effectiveTime value="940295405013" /> <value unit=&quot ;" xsi:type="PQ" value="5.5" /> < referenceRange> <observationRange> <text> 5.0-8.0</text> </observationRange> </ referenceRange> </observation> </component> < component> <observation moodCode="EVN" classCode=" OBS"> <templateId root="2.16.840.1.136554.10..22.4.2& quot; /> <id nullFlavor="NA" /> <code codeSystem="local" code="200.0450" displayName="BUN/ CREATININE RATIO" /> <statusCode code="completed" / > <effectiveTime value="751802573252" /> & lt;value unit="" xsi:type="PQ" value="NEGATIVE" /& gt; <referenceRange> <observationRange> <text>NEGATIVE</text> </observationRange> </referenceRange> </observation> </component> <component> <observation moodCode="EVN" classCode= "OBS"> <templateId root=" 2.16.840.1.485036.10.20.22.4.2" /> <id nullFlavor="NA& quot; /> <code codeSystem="local" code="200.0500& quot; displayName="GLUCOSE" /> <statusCode code=" completed" /> <effectiveTime value="573511113994" /> <value unit="" xsi:type="PQ" value=" NEGATIVE" /> <referenceRange> <observationRange& gt; <text>NEGATIVE</text> </ observationRange> </referenceRange> </observation&gt ; </component> <component> <observation moodCode ="EVN"classCode="OBS"> <templateId root=&quot ;2.16.840.1.992202.10.20.22.4.2" /> <id nullFlavor="NA& quot; /> <code codeSystem="local" code="200.0600& quot; displayName="CALCIUM" /> <statusCode code=" completed" /> <effectiveTime value="866624210062" /> <value unit="" xsi:type="PQ" value=" NEGATIVE" /> <referenceRange> < observationRange> <text>NEGATIVE</text> </ observationRange> </referenceRange> </observation&gt ; </component> <component> <observation moodCode ="EVN" classCode="OBS"> <templateId root=& quot;2.16.840.1.263227.10.20.22.4.2" /> <id nullFlavor=&quot ;NA" /> <code codeSystem="local" code=" 200.0750" displayName="BILIRUBIN, CONJUG &amp; UNCONJUG" /> <statusCode code="completed" /> < effectiveTime value="907794575834" /> <value unit="& quot; xsi:type="PQ" value="NEGATIVE" /> < referenceRange> <observationRange> <text> NEGATIVE</text> </observationRange> </ referenceRange> </observation> </component> < component> <observation moodCode="EVN" classCode=" OBS"> <templateId root="2.16.840.1.143773.10.20.22.4.2& quot; /> <id nullFlavor="NA" /> <code codeSystem="local" code="200.0325" displayName=" Specific [place],Urine" /> <statusCodecode="completed& quot; /> <effectiveTime value="203369051499" /> <value unit="" xsi:type="PQ" value="1.020" /&gt ; <referenceRange> <observationRange> <text>1.015-1.025</text> </observationRange> </referenceRange> </observation> </component& gt; <component> <observation moodCode="EVN" classCode="OBS"> <templateId root=" 2.16.840.1.451273.10.20.22.4.2" /> <id nullFlavor="NA& quot; /> <code codeSystem="local" code="200.0410& quot; displayName="Leukocyte Esterase,Urine" /> < statusCode code="completed" /> <effectiveTime value=& quot;546707615809" /> <value unit="" xsi:type="PQ& quot; value="NEGATIVE" /> <referenceRange> <observationRange> <text>NEGATIVE</text> </observationRange> </referenceRange> </ observation> </component> <component> < observation moodCode="EVN" classCode="OBS"> < templateId root="2.16.840.1.704488.10.20.22.4.2" /> <id nullFlavor="NA" /> <code codeSystem="local" code="200.0420" displayName="Nitrate,Urine" /> & lt;statusCode code="completed" /> <effectiveTime value= "994437237993" /> <value unit="" xsi:type=& quot;PQ" value="NEGATIVE" /> <referenceRange> <observationRange> <text>NEGATIVE</text& gt; </observationRange> </referenceRange> </ observation> </component> <component> < observation moodCode="EVN" classCode="OBS"> < templateId root="2.16.840.1.872224.10.20.22.4.2" /> < id nullFlavor="NA" /> <code codeSystem="local&quot ; code="200.0740" displayName="Urobilinogen,Urine" /> <statusCode code="completed" /> < effectiveTime value="899381108591" /> <value unit=&quot ;EU/DL" xsi:type="PQ" value="0.2" /> < referenceRange> <observationRange> <text> NORMAL</text> </observationRange> </ referenceRange> </observation> </component> < component> <observation moodCode="EVN" classCode=" OBS"> <templateId root="2.16.840.1.359315.10..22.4.2& quot; /> <id nullFlavor="NA" /> <code codeSystem="local" code="200.0825" displayName="Occult Blood,Urine - Dipstick" /> <statusCode code="completed& quot; /> <effectiveTime value="441051656456" /> <value unit="" xsi:type="PQ" value="NEGATIVE& quot; /> <referenceRange> <observationRange> <text>NEGATIVE</text> </observationRange > </referenceRange> </observation> </ component> <component> <observation moodCode="EVN& quot; classCode="OBS"> <templateId root=" 2.16.840.1.939046.10.20.22.4.2" /> <id nullFlavor="NA& quot; /> <code codeSystem="local" code="200.0992& quot; displayName="Urine Microscopic (UA)" /> < statusCode code="completed" /> <effectiveTime value=& quot;783400621137" /> <value unit="" xsi:type=& quot;PQ" value="Microscopic Not Ind." /> < referenceRange> <observationRange> <text> NRG</text></observationRange> </referenceRange> </observation> </component> </organizer> </ entry> <entry> <organizer moodCode="EVN" classCode=& quot;BATTERY"> <templateId root=" 2.16.840.1.049281.10.20.22.4.1" /> <id nullFlavor="NA&quot ; /> <code codeSystem="local" code="HGB" displayName="HEMOGLOBIN" /> <statusCode code=" completed" /> <component> <observation moodCode=& quot;EVN" classCode="OBS"> <templateId root=" 2.16.840.1.749685.10.20.22.4.2" /> <id nullFlavor="NA& quot; /> <code codeSystem="local" code="MCV" displayName="MEAN CELL VOLUME" /> <statusCode code=& quot;completed"/> <effectiveTime value="331225899626& quot; /> <value unit="fl" xsi:type="PQ" value ="82.8" /> <referenceRange> <observationRange& gt; <text>80.0-100.0</text> </ observationRange> </referenceRange> </observation&gt ; </component> <component> <observation moodCode=& quot;EVN" classCode="OBS"> <templateId root=" 2.16.840.1.153982.10.20.22.4.2" /> <id nullFlavor="NA& quot; /> <code codeSystem="local" code="HGBT&quot ; displayName="HEMOGLOBIN" /> <statusCode code=" completed" /> <effectiveTime value="047650019734" /> <value unit="gm/dL" xsi:type="PQ" value=& quot;13.8" /> <referenceRange> < observationRange> <text>12.0-16.0</text> </observationRange> </referenceRange> </observation&gt ; </component> </organizer> </entry> <entry> <organizer moodCode="EVN" classCode="BATTERY"> <templateId root="2.16.840.1.244328.10.20.22.4.1" /> < id nullFlavor="NA" /> <code codeSystem="local" code="PREG" displayName=" TEST, SERUM" /> & lt;statusCode code="completed" /> <component> &lt ;observation moodCode="EVN" classCode="OBS"> < templateId root="2.16.840.1.832204.10.20.22.4.2" /> < id nullFlavor="NA" /> <code codeSystem="local&quot ; code="PREG" displayName=" TEST, SERUM" /> <statusCode code="completed" /> <effectiveTime value= "825903475330" /> <value unit="" xsi:type=& quot;PQ" value="NEGATIVE" /> <referenceRange> <observationRange> <text>NEGATIVE</text& gt; </observationRange> </referenceRange> </observation> </component> </organizer> </entry > <entry> <organizer moodCode="EVN" classCode=" BATTERY"> <templateId root="2.16.840.1.834931.10.20.22.4.1& quot; /> <id nullFlavor="NA" /> <code codeSystem ="local" code="METAB" displayName="METABOLIC PANEL, BASIC" /> <statusCode code="completed" /> < component> <observation moodCode="EVN" classCode=" OBS"> <templateId root="2.16.840.1.076515.10.20.22.4.2& quot; /> <id nullFlavor="NA" /> <code codeSystem="local" code="K" displayName="POTASSIUM&quot ; /> <statusCode code="completed" /> < effectiveTime value="237503482061" /> <value unit=&quot ;mmol/L" xsi:type="PQ" value="3.9" /> < referenceRange> <observationRange> <text> 3.5-5.3</text> </observationRange> </referenceRange& gt; </observation> </component> <component> <observation moodCode="EVN" classCode="OBS"> <templateId root="2.16.840.1.502696.10..22.4.2" /> <id nullFlavor="NA" /> <code codeSystem=" local" code="eGFR" displayName="EST GFR (MDRD)" /> <statusCode code="completed" /> < effectiveTime value="388675122063" /> <value unit=&quot ;mL/min" xsi:type="PQ" value="53" /> < interpretationCode codeSystem="local" code="*" /> <referenceRange> <observationRange> < text>> 59</text> </observationRange> & lt;/referenceRange> </observation> </component> & lt;component> <observation moodCode="EVN" classCode=&quot ;OBS"> <templateId root="2.16.840.1.558455.10.20.22.4.2 " /> <id nullFlavor="NA" /> <code codeSystem="local" code="GAP" displayName="ANION GAP& quot; /> <statusCode code="completed" /> & lt;effectiveTime value="233636030825" /> <value unit=& quot;mmol/L" xsi:type="PQ" value="11" /> < referenceRange> <observationRange> <text> 5-15</text> </observationRange> </ referenceRange> </observation> </component> < component> <observation moodCode="EVN" classCode=" OBS"> <templateId root="2.16.840.1.698676.10.20.22.4.2& quot; /> <id nullFlavor="NA" /> <code codeSystem="local" code="eCrCl" displayName="EST CrCl ( CG)" /> <statusCode code="completed" /> <effectiveTime value="213957689398" /> <value unit="mL/min" xsi:type="PQ" value="> 60" /& gt; <referenceRange> <observationRange> <text>> 59</text> </observationRange> </referenceRange> </observation> </component& gt; <component> <observation moodCode="EVN" classCode="OBS"> <templateId root=" 2.16.840.1.168311.10.20.22.4.2" /> <id nullFlavor="NA& quot; /> <code codeSystem="local" code="GLU" displayName="GLUCOSE" /> <statusCode code=" completed" /> <effectiveTime value="626723575053" /> <value unit="mg/dL" xsi:type="PQ" value=& quot;105" /> <interpretationCode codeSystem="local&quot ; code="*" /> <referenceRange> < observationRange> <text>70-99</text> < /observationRange> </referenceRange> </observation> </component> <component> <observation moodCode= "EVN" classCode="OBS"> <templateId root=&quot ;2.16.840.1.548329.10.20.22.4.2" /> <id nullFlavor="NA& quot; /> <code codeSystem="local" code="CA" displayName="CALCIUM" /> <statusCode code=" completed" /> <effectiveTime value="868801759135" /> <value unit="mg/dL" xsi:type="PQ" value=& quot;9.4" /> <referenceRange> < observationRange> <text>8.5-10.1</text> </ observationRange> </referenceRange> </observation&gt ; </component> <component> <observation moodCode ="EVN" classCode="OBS"> <templateId root=& quot;2.16.840.1.577998.10.20.22.4.2" /> <id nullFlavor=&quot ;NA" /> <code codeSystem="local" code="BUN& quot; displayName="BLOOD UREA NITROGEN" /> <statusCode code="completed" /> <effectiveTime value=" 188519332573" /> <value unit="mg/dL" xsi:type=& quot;PQ" value="17" /> <referenceRange> <observationRange> <text>7-20</text> </observationRange> </referenceRange> </ observation> </component> <component> < observation moodCode="EVN" classCode="OBS"> < templateId root="2.16.840.1.434593.10.20.22.4.2" /> < id nullFlavor="NA" /> <code codeSystem="local&quot ; code="CREAT" displayName="CREATININE" /> < statusCode code="completed" /> <effectiveTime value=& quot;790212425222" /> <value unit="mg/dL" xsi:type=& quot;PQ" value="1.2" /> <interpretationCode codeSystem="local" code="*" /> < referenceRange> <observationRange> <text> 0.6-1.0</text> </observationRange> </ referenceRange> </observation> </component> < component> <observation moodCode="EVN" classCode=" OBS"> <templateId root="2.16.840.1.346583.10.20.22.4.2& quot; /> <id nullFlavor="NA" /> <code codeSystem="local" code="NA"displayName="SODIUM" / > <statusCode code="completed" /> < effectiveTime value="808604163162" /> <value unit=&quot ;mmol/L" xsi:type="PQ" value="137" /> < referenceRange> <observationRange> <text> 135-148</text> </observationRange> </ referenceRange> </observation> </component> < component> <observation moodCode="EVN" classCode=" OBS"> <templateId root="2.16.840.1.540081.10.20.22.4.2& quot; /> <id nullFlavor="NA" /> <code codeSystem="local" code="CL" displayName="CHLORIDE&quot ; /> <statusCode code="completed" /> < effectiveTime value="647385965310" /> <value unit=&quot ;mmol/L" xsi:type="PQ"value="102" /> < referenceRange> <observationRange> <text>98-110 </text> </observationRange> </referenceRange& gt; </observation> </component> <component> <observation moodCode="EVN" classCode="OBS"> <templateId root="2.16.840.1.065066.10..22.4.2" /> <id nullFlavor="NA" /> <code codeSystem=&quot ;local" code="CO2" displayName="CARBON DIOXIDE" /> <statusCode code="completed" /> <effectiveTime value="988355145178" /> <value unit="mmol/L" xsi:type="PQ" value="24" /> <referenceRange& gt; <observationRange> <text>21-32</text& gt; </observationRange> </referenceRange> </observation> </component> </organizer> </entry > <entry> <organizer moodCode="EVN" classCode=" BATTERY"> <templateId root="2.16.840.1.930376.10..22.4.1& quot; /> <id nullFlavor="NA" /> <codecodeSystem= "local" code="HGB" displayName="HEMOGLOBIN" /> <statusCode code="completed" /> <component> <observation moodCode="EVN" classCode="OBS"> <templateId root="2.16.840.1.664300.10..22.4.2" /> <id nullFlavor="NA" /> <code codeSystem=" local" code="MCV" displayName="MEAN CELL VOLUME" /> <statusCode code="completed" /> < effectiveTime value="379625064483" /> <value unit=&quot ;fl" xsi:type="PQ" value="82.8" /> < referenceRange> <observationRange> <text> 80.0-100.0</text> </observationRange> </ referenceRange> </observation> </component> < component> <observation moodCode="EVN" classCode=" OBS"> <templateId root="2.16.840.1.814753.10.20.22.4.2& quot;/> <id nullFlavor="NA" /> <code codeSystem="local"code="HGBT" displayName="HEMOGLOBIN& quot; /> <statusCode code="completed" /> & lt;effectiveTime value="872821802275" /> <value unit=& quot;gm/dL" xsi:type="PQ" value="13.8" /> & lt;referenceRange> <observationRange> <text& gt;12.0-16.0</text> </observationRange> </ referenceRange> </observation> </component> </ organizer> </entry> <entry> <organizer moodCode="EVN " classCode="BATTERY"> <templateId root=" 2.16.840.1.752415.10.20.22.4.1" /> <id nullFlavor="NA&quot ; /> <code codeSystem="local" code="PREG" displayName=" TEST, SERUM" /> <statusCode code=& quot;completed" /> <component> <observation moodCode="EVN" classCode="OBS"> <templateId root="2.16.840.1.152082.10.20.22.4.2" /> <id nullFlavor ="NA" /> <code codeSystem="local" code=" PREG" displayName=" TEST, SERUM" /> < statusCode code="completed" /> <effectiveTime value=& quot;430333390776" /> <value unit="" xsi:type=& quot;PQ" value="NEGATIVE" /> <referenceRange> <observationRange> <text>NEGATIVE</text& gt; </observationRange> </referenceRange> < /observation> </component> </organizer> </entry> <entry> <organizer moodCode="EVN" classCode="BATTERY& quot;> <templateId root="2.16.840.1.220670.10.20.22.4.1" /& gt; <id nullFlavor="NA" /> <code codeSystem=" local" code="METAB" displayName="METABOLIC PANEL, BASIC&quot ; /> <statusCode code="completed" /> <component& gt; <observation moodCode="EVN" classCode="OBS"&gt ; <templateId root="2.16.840.1.025588.10.20.22.4.2" /> <id nullFlavor="NA" /> <code codeSystem=& quot;local" code="K" displayName="POTASSIUM" /> <statusCode code="completed" /> < effectiveTime value="766802397732" /> <valueunit=" mmol/L" xsi:type="PQ" value="3.9" /> < referenceRange> <observationRange> <text> 3.5-5.3</text> </observationRange> </ referenceRange> </observation> </component> < component> <observation moodCode="EVN" classCode=" OBS"> <templateId root="[id number]& quot; /> <id nullFlavor="NA" /> <code codeSystem="local" code="eGFR" displayName="EST GFR ( MDRD)" /> <statusCode code="completed" /> <effectiveTime value="[id number]" /> <value unit="mL/min" xsi:type="PQ" value="53" /> <interpretationCode codeSystem="local" code="*" /&gt ; <referenceRange> <observationRange> <text>> 59</text> </observationRange> </referenceRange> </observation> </component&gt ; <component> <observation moodCode="EVN" classCode="OBS"> <templateId root=" 2.16.840.1.572679.10.20.22.4.2" /> <id nullFlavor="NA& quot; /> <code codeSystem="local" code="GAP" displayName="ANION GAP" /> <statusCode code=" completed" /> <effectiveTime value="552046657759" /> <value unit="mmol/L" xsi:type="PQ"value=& quot;11" /> <referenceRange> < observationRange> <text>5-15</text> </ observationRange> </referenceRange> </observation&gt ; </component> <component> <observation moodCode ="EVN" classCode="OBS"> <templateId root=& quot;2.16.840.1.777870.10.20.22.4.2" /> <id nullFlavor=&quot ;NA" /> <codecodeSystem="local" code="eCrCl& quot; displayName="EST CrCl (CG)" /> <statusCode code=" completed" /> <effectiveTime value="940231813001" /> <value unit="mL/min" xsi:type="PQ" value=& quot;> 60" /> <referenceRange> < observationRange> <text>> 59</text> </observationRange> </referenceRange> </ observation> </component> <component> < observationmoodCode="EVN" classCode="OBS"> < templateId root="2.16.840.1.695498.10.20.22.4.2" /> < id nullFlavor="NA" /> <code codeSystem="local&quot ; code="GLU" displayName="GLUCOSE" /> < statusCode code="completed" /> <effectiveTime value=& quot;743452954430" /> <value unit="mg/dL" xsi:type ="PQ" value="105" /> <interpretationCode codeSystem="local" code="*" /> < referenceRange> <observationRange> <text> 70-99</text> </observationRange> </referenceRange&gt ; </observation> </component> <component> <observation moodCode="EVN" classCode="OBS"> <templateId root="2.16.840.1.799463.10.20.22.4.2" />< id nullFlavor="NA" /> <code codeSystem="local&quot ; code="CA" displayName="CALCIUM" /> < statusCode code="completed" /> <effectiveTime value=&quot ;915549832545" /> <value unit="mg/dL" xsi:type=& quot;PQ" value="9.4" /> <referenceRange> <observationRange> <text>8.5-10.1</text> </observationRange> </referenceRange> < /observation> </component> <component> < observation moodCode="EVN" classCode="OBS"> < templateId root="2.16.840.1.057399.10.20.22.4.2" /> < id nullFlavor="NA" /> <code codeSystem="local&quot ; code="BUN" displayName="BLOOD UREA NITROGEN" /> <statusCode code="completed" /> <effectiveTime value="200958043776" /> <value unit="mg/dL" xsi:type="PQ" value="17" /> <referenceRange& gt; <observationRange> <text>7-20</text& gt; </observationRange> </referenceRange> </observation> </component> <component> < observation moodCode="EVN" classCode="OBS"> < templateId root="2.16.840.1.449707.10.20.22.4.2" /> < id nullFlavor="NA" /> <code codeSystem="local" code="CREAT" displayName="CREATININE" /> < statusCode code="completed" /> <effectiveTime value=& quot;699705638125" /> <value unit="mg/dL" xsi:type ="PQ" value="1.2" /> <interpretationCode codeSystem="local" code="*" /> < referenceRange> <observationRange> <text> 0.6-1.0</text> </observationRange> </ referenceRange> </observation> </component> < component> <observation moodCode="EVN" classCode=" OBS"> <templateId root="2.16.840.1.190339.10.20.22.4.2& quot; /> <id nullFlavor="NA" /> <code codeSystem="local" code="NA" displayName="SODIUM" /> <statusCode code="completed" /> < effectiveTime value="085869446446" /> <value unit=&quot ;mmol/L" xsi:type="PQ" value="137" /> < referenceRange> <observationRange> <text> 135-148</text> </observationRange> </referenceRange > </observation> </component> <component> <observation moodCode="EVN" classCode="OBS"> <templateId root="2.16.840.1.422829.10.20.22.4.2" /> & lt;id nullFlavor="NA" /> <code codeSystem="local& quot; code="CL" displayName="CHLORIDE" /> < statusCode code="completed" /> <effectiveTime value=& quot;812479862480" /> <value unit="mmol/L" xsi: type="PQ" value="102" /> <referenceRange> <observationRange> <text>98-110</text> </observationRange> </referenceRange> </ observation> </component> <component> < observation moodCode="EVN" classCode="OBS"> < templateId root="2.16.840.1.234542.10.20.22.4.2" /> < id nullFlavor="NA" /> <code codeSystem="local&quot ; code="CO2" displayName="CARBON DIOXIDE" /> &lt ;statusCode code="completed" /> <effectiveTime value=& quot;432545461904" /> <value unit="mmol/L" xsi: type="PQ" value="24" /> <referenceRange> <observationRange> <text>21-32</text> </observationRange> </referenceRange> & lt;/observation> </component> </organizer> </entry&gt ; <entry> <organizer moodCode="EVN" classCode=" BATTERY"> <templateId root="2.16.840.1.230677.10.20.22.4.1& quot; /> <id nullFlavor="NA" /> <code codeSystem ="local" code="LCBC" displayName="L100.0050" /&gt ; <statusCode code="completed" /> <component> <observation moodCode="EVN" classCode="OBS"> <templateId root="2.16.840.1.466468.10.20.22.4.2" /> <id nullFlavor="NA" /> <code codeSystem="local& quot; code="100.0150" displayName="WBC - WHITE BLOOD COUNT" /> <statusCode code="completed" /> < effectiveTime value="195689600313" /> <value unit=&quot ;T/MM3" xsi:type="PQ" value="19.7" /> < interpretationCode codeSystem="local" code="*" /> <referenceRange> <observationRange> <text>4.5 -11.0</text> </observationRange> </ referenceRange> </observation> </component> < component> <observation moodCode="EVN" classCode=" OBS"> <templateId root="2.16.840.1.104772.10.20.22.4.2& quot; /> <id nullFlavor="NA" /> <code codeSystem="local" code="100.0250" displayName="RED BLOOD COUNT" /> <statusCode code="completed" /&gt ; <effectiveTime value="490880616060" /> < value unit="M/MM3" xsi:type="PQ" value="4.93" /&gt ; <referenceRange> <observationRange> <text>4.00-5.20</text> </observationRange> </referenceRange> </observation> </component> <component> <observation moodCode="EVN" classCode="OBS"> <templateId root=" 2.16.840.1.476724.10.20.22.4.2" /> <id nullFlavor="NA& quot; /> <code codeSystem="local" code="100.0300& quot; displayName="HGB - HEMOGLOBIN" /> <statusCode code=&quot ;completed" /> <effectiveTime value="311193164961&quot ; /> <value unit="GM/DL" xsi:type="PQ" value= "13.7" /> <referenceRange> < observationRange> <text>12-16</text> < /observationRange> </referenceRange> </observation& gt; </component> <component> <observation moodCode="EVN" classCode="OBS"> <templateId root="2.16.840.1.541304.10..22.4.2" /> <id nullFlavor ="NA" /> <code codeSystem="local" code=" 100.0400" displayName="HCT - HEMATOCRIT" /> < statusCode code="completed" /> <effectiveTime value=& quot;419074803614" /> <value unit="%" xsi: type="PQ" value="41.4" /> <referenceRange&gt ; <observationRange> <text>36-46</text&gt ; </observationRange> </referenceRange> & lt;/observation> </component> <component> < observation moodCode="EVN" classCode="OBS"> < templateId root="2.16.840.1.398994.10..22.4.2" /> < id nullFlavor="NA" /> <code codeSystem="local&quot ; code="100.0550" displayName="MEAN CORPUSCULAR VOLUME" /&gt ; <statusCode code="completed" /> < effectiveTime value="825440877404" /> <value unit=&quot ;UM3" xsi:type="PQ" value="84.0" /> < referenceRange> <observationRange> <text> 80-100</text> </observationRange> </ referenceRange> </observation> </component> < component> <observation moodCode="EVN" classCode=" OBS"> <templateId root="2.16.840.1.750944.10.20.22.4.2& quot; /> <id nullFlavor="NA" /> <code codeSystem="local" code="100.0600" displayName="MEAN CORPUSCULAR HGB" /> <statusCode code="completed" / > <effectiveTime value="040600281933" /> < value unit="UUG" xsi:type="PQ" value="27.8" /> <referenceRange> <observationRange> <text>26-34</text> </observationRange> &lt ;/referenceRange> </observation></component> < component> <observation moodCode="EVN" classCode=" OBS"> <templateId root="2.16.840.1.384765.10.20.22.4.2& quot; /> <id nullFlavor="NA" /> <code codeSystem="local" code="100.0650" displayName="MEAN CORPUSCULAR HGB CONC(MCHC" /> <statusCodecode=" completed" /> <effectiveTime value="604737308378" /> <value unit="GM/DL" xsi:type="PQ" value=" 33.1" /> <referenceRange> <observationRange > <text>31-37</text> </ observationRange> </referenceRange> </observation&gt ; </component> <component> <observation moodCode=& quot;EVN" classCode="OBS"> <templateId root=" 2.16.840.1.097485.10.20.22.4.2" /> <id nullFlavor="NA& quot; /> <code codeSystem="local" code="100.0750& quot; displayName="RDW STANDARD DEVIATION" /> < statusCode code="completed" /> <effectiveTime value=& quot;309114101905" /><value unit="FL" xsi:type="PQ& quot; value="42.4" /> <referenceRange> & lt;observationRange> <text>36.9-50.2</text> & lt;/observationRange> </referenceRange> </ observation> </component> <component> < observation moodCode="EVN" classCode="OBS"> < templateId root="2.16.840.1.767856.10.20.22.4.2" /> <id nullFlavor="NA" /> <code codeSystem="local" code="100.0850" displayName="PLT - PLATELET COUNT" /> <statusCode code="completed" /> < effectiveTime value="991685922606" /> <value unit=&quot ;T/MM3" xsi:type="PQ" value="347" /> < referenceRange> <observationRange> <text> 130-400</text> </observationRange> </referenceRange&gt ; </observation> </component> <component> <observation moodCode="EVN" classCode="OBS"> <templateId root="2.16.840.1.587629.10.20.22.4.2" /> <id nullFlavor="NA" /> <code codeSystem=" local" code="100.0950" displayName="MEAN PLATELET VOLUME& quot; /> <statusCode code="completed" /> & lt;effectiveTime value="324309739768" /> <value unit=& quot;UM3" xsi:type="PQ" value="9.3" /> < interpretationCode codeSystem="local" code="*" /> <referenceRange> <observationRange> < text>9.4-12.4</text> </observationRange> < /referenceRange> </observation> </component> </ organizer> </entry> <entry> <organizer moodCode="EVN " classCode="BATTERY"> <templateId root=" 2.16.840.1.190360.10.20.22.4.1" /> <id nullFlavor="NA&quot ; /> <code codeSystem="local" code="LDIFFM" displayName="L100.0105" /> <statusCode code="completed " /> <component> <observation moodCode="EVN& quot; classCode="OBS"> <templateId root=" 2.16.840.1.394323.10.20.22.4.2" /> <id nullFlavor="NA& quot; /> <code codeSystem="local" code="100.1650& quot; displayName="NEUTROPHILS % (MANUAL)" /> < statusCode code="completed" /> <effectiveTime value=& quot;391804685319" /> <value unit="%" xsi: type="PQ" value="74.0" /> < interpretationCodecodeSystem="local" code="*" /> <referenceRange> <observationRange> < text>33-66</text> </observationRange> </ referenceRange> </observation> </component> < component> <observation moodCode="EVN" classCode=" OBS"> <templateId root="2.16.840.1.850575.10.20.22.4.2& quot; /> <id nullFlavor="NA" /> <code codeSystem="local" code="100.1850" displayName=" LYMPHOCYTES % (MANUAL)" /> <statusCode code=" completed" /> <effectiveTime value="271981264410" /& gt; <value unit="%" xsi:type="PQ" value= "26.0" /> <referenceRange> <observationRange&gt ; <text>23-45</text> </observationRange& gt; </referenceRange> </observation> </ component> <component> <observation moodCode="EVN& quot; classCode="OBS"> <templateId root=" 2.16.840.1.777487.10.20.22.4.2" /> <id nullFlavor="NA& quot; /> <code codeSystem="local" code="100.2400& quot; displayName="PROLYMPHOCYTES %" /> < statusCode code="completed" /> <effectiveTime value=& quot;685932761248" /> <value unit="T/MM3" xsi:type ="PQ" value="14.6" /> <interpretationCode codeSystem="local" code="*" /> < referenceRange> <observationRange> <text> 1.8-7.7</text> </observationRange> </referenceRange&gt ; </observation> </component> <component> <observation moodCode="EVN" classCode="OBS"> <templateIdroot="2.16.840.1.594332.10.20.22.4.2" /> <id nullFlavor="NA" /> <code codeSystem=" local" code="100.2550" displayName="Lymphocytes # (Manual)& quot; /> <statusCode code="completed" /> & lt;effectiveTime value="972405569182" /> <value unit=& quot;T/MM3" xsi:type="PQ" value="5.1" /> & lt;interpretationCode codeSystem="local" code="*" /> <referenceRange> <observationRange> <text> 1-4.8</text> </observationRange> </ referenceRange> </observation> </component> < component> <observation moodCode="EVN" classCode=" OBS"> <templateId root="2.16.840.1.919885.10.20.22.4.2& quot; /> <id nullFlavor="NA" /> <code codeSystem="local" code="100.4565" displayName="LRBCMOR " /> <statusCode code="completed" /> & lt;effectiveTime value="718660267479" /> <value unit=& quot;" xsi:type="PQ" value="Normal" /> < referenceRange> <observationRange> <text> NRG</text> </observationRange> </ referenceRange> </observation> </component> </ organizer> </entry> <entry> <organizermoodCode="EVN& quot; classCode="BATTERY"> <templateId root=" 2.16.840.1.864486.10.20.22.4.1" /> <id nullFlavor="NA&quot ; /> <code codeSystem="local" code="LCMPH" displayName="L200.0010" /> <statusCodecode="completed& quot; /> <component> <observation moodCode="EVN& quot; classCode="OBS"> <templateId root=" 2.16.840.1.845128.10.20.22.4.2" /> <id nullFlavor="NA& quot; /> <code codeSystem="local" code="300.0400& quot; displayName="FUNGAL CULTURE." /> <statusCode code ="completed" /> <effectiveTime value="222098530192 " /> <value unit="MG/DL" xsi:type="PQ" value=& quot;1.0" /> <referenceRange> < observationRange> <text>0.7-1.2</text> & lt;/observationRange> </referenceRange> </ observation> </component> <component> < observation moodCode="EVN" classCode="OBS"> < templateId root="2.16.840.1.577771.10.20.22.4.2" /> <id nullFlavor="NA" /> <code codeSystem="local" code="300.0450" displayName="FUNGAL CULTURE, BLOOD." /> <statusCode code="completed" /> < effectiveTime value="339157157996" /><value unit="RATIO& quot; xsi:type="PQ" value="15" /> < referenceRange> <observationRange> <text> 6-26</text> </observationRange> </referenceRange> </observation> </component> <component> <observation moodCode="EVN" classCode="OBS"> <templateId root="2.16.840.1.701653.10..22.4.2" /><id nullFlavor="NA" /> <code codeSystem="local" code="300.0100" displayName="NA - Sodium" /> &lt ;statusCode code="completed" /> <effectiveTime value=& quot;517805326103" /> <value unit="MEQ/L" xsi:type ="PQ" value="141" /> <referenceRange> <observationRange> <text>134-144</text> </observationRange> </referenceRange> </ observation> </component> <component> < observation moodCode="EVN" classCode="OBS"> < templateId root="2.16.840.1.774483.10.20.22.4.2" /> < id nullFlavor="NA" /> <code codeSystem="local&quot ; code="300.0150" displayName="Potassium" /> &lt ;statusCode code="completed" /> <effectiveTime value=" 405041975141" /> <value unit="MEQ/L" xsi:type=& quot;PQ" value="4.0" /> <referenceRange> <observationRange> <text>3.6-5</text> </observationRange> </referenceRange> </ observation> </component> <component> < observation moodCode="EVN" classCode="OBS"> < templateId root="2.16.840.1.143849.10.20.22.4.2" /> < id nullFlavor="NA" /> <code codeSystem="local&quot ; code="300.0200" displayName="Chloride" /> < statusCode code="completed" /> <effectiveTime value=& quot;338671499300" /> <value unit="MEQ/L" xsi:type ="PQ" value="105" /> <referenceRange> <observationRange> <text>98-107</text> </observationRange> </referenceRange> </ observation> </component> <component> < observation moodCode="EVN" classCode="OBS"> < templateId root="2.16.840.1.166164.10.20.22.4.2" /> < id nullFlavor="NA" /> <code codeSystem="local&quot ; code="300.0250" displayName="CO2 - Carbon Dioxide" /> <statusCode code="completed" /> < effectiveTime value="407438881480" /> <value unit=&quot ;MEQ/L" xsi:type="PQ" value="26" /> < referenceRange> <observationRange> <text>22-30</ text> </observationRange> </referenceRange> </observation> </component> <component> <observation moodCode="EVN" classCode="OBS"> <templateId root="2.16.840.1.456378.10.20.22.4.2" /> <id nullFlavor="NA" /> <code codeSystem=" local" code="300.0300" displayName="Anion Gap" /> <statusCode code="completed" /> < effectiveTime value="738145146794" /> <value unit=&quot ;MEQ/L" xsi:type="PQ" value="10" /> < referenceRange> <observationRange> <text> 5-15</text> </observationRange> </ referenceRange> </observation> </component> < component> <observation moodCode="EVN" classCode=" OBS"> <templateId root="2.16.840.1.749991.10.20.22.4.2& quot; /> <id nullFlavor="NA" /> <code codeSystem="local" code="300.0350" displayName="BUN - Blood Urea Nitrogen" /> <statusCode code="completed& quot; /> <effectiveTime value="043693090502" /> <value unit="MG/DL" xsi:type="PQ" value="15.0& quot; /> <referenceRange> <observationRange> <text>7-17</text> </observationRange> </referenceRange> </observation> </component& gt; <component> <observation moodCode="EVN" classCode="OBS"> <templateId root=" 2.16.840.1.925143.10.20.22.4.2"/> <id nullFlavor="NA& quot; /> <code codeSystem="local"code="300.0410& quot; displayName="Glomerular Filtration Rate" /> < statusCode code="completed" /> <effectiveTime value=& quot;525592024973" /> <value unit="" xsi:type=& quot;PQ" value="65" /> <referenceRange> <observationRange> <text>NRG</text> </observationRange> </referenceRange> </ observation></component> <component> <observation moodCode="EVN" classCode="OBS"> <templateId root="2.16.840.1.038113.10.20.22.4.2" /> <id nullFlavor=& quot;NA" /> <code codeSystem="local" code=" 300.0500" displayName="Glucose" /> <statusCode code="completed" /> <effectiveTime value=" 935277172100" /> <value unit="MG/DL" xsi:type=& quot;PQ" value="96" /> <referenceRange> <observationRange> <text>65-110</text> </observationRange> </referenceRange> </ observation> </component> <component> < observation moodCode="EVN" classCode="OBS"> < templateId root="2.16.840.1.298682.10.20.22.4.2" /> < id nullFlavor="NA" /> <code codeSystem="local&quot ; code="300.2000" displayName="Osmolality,Calculated" /> <statusCode code="completed" /> < effectiveTime value="496399214648" /> <value unit=&quot ;MOSM/KG" xsi:type="PQ" value="272" /> < referenceRange> <observationRange> <text>261-280& lt;/text> </observationRange> </referenceRange& gt; </observation> </component><component> <observation moodCode="EVN" classCode="OBS"> < templateId root="2.16.840.1.294629.10.20.22.4.2" /> < id nullFlavor="NA" /> <code codeSystem="local&quot ; code="300.2200" displayName="Calcium" /> < statusCode code="completed" /> <effectiveTime value=& quot;913889496027" /> <value unit="MG/DL" xsi:type ="PQ" value="9.0" /> <referenceRange> <observationRange> <text>8.4-10.2</text> </observationRange> </referenceRange> </ observation> </component> <component> < observation moodCode="EVN" classCode="OBS"> < templateId root="2.16.840.1.854179.10.20.22.4.2" /> < id nullFlavor="NA" /> <code codeSystem="local&quot ; code="300.2700" displayName="Bilirubin,Total" /> <statusCode code="completed" /> <effectiveTime value="395072899824" /> <value unit="MG/DL" xsi:type="PQ" value="0.60" /> <referenceRange > <observationRange> <text>0.20-1.30</ text> </observationRange> </referenceRange> </observation> </component> <component> <observation moodCode="EVN" classCode="OBS"> <templateId root="2.16.840.1.315242.10.20.22.4.2" /> <id nullFlavor="NA" /> <code codeSystem="local&quot ; code="300.2800" displayName="Bilirubin,Unconjugated" /&gt ; <statusCode code="completed" /> < effectiveTime value="455829110317" /> <value unit=&quot ;MG/DL" xsi:type="PQ" value="0.20" /> < referenceRange> <observationRange> <text> 0.00-11.10</text> </observationRange> </ referenceRange> </observation> </component> < component> <observation moodCode="EVN" classCode=" OBS"> <templateId root="2.16.840.1.364632.10.20.22.4.2& quot; /> <id nullFlavor="NA" /> <code codeSystem="local" code="300.2825" displayName=" Bilirubin,Conjugated" /> <statusCode code="completed& quot; /> <effectiveTimevalue="985778954834" /> <value unit="MG/DL" xsi:type="PQ" value="0.00& quot; /> <referenceRange> <observationRange> <text>0.00-0.30</text> </observationRange& gt; </referenceRange> </observation> </ component> <component> <observation moodCode="EVN& quot; classCode="OBS"> <templateId root=" 2.16.840.1.078177.10.20.22.4.2" /> <id nullFlavor="NA& quot; /><code codeSystem="local" code="300.2975" displayName="Alkaline Phosphatase" /> <statusCode code= "completed" /> <effectiveTime value="265920741443& quot; /> <value unit="U/L" xsi:type="PQ" value="78" /> <referenceRange> < observationRange> <text>38-126</text> </ observationRange> </referenceRange> </observation&gt ; </component> <component> <observation moodCode ="EVN" classCode="OBS"> <templateId root=& quot;2.16.840.1.652837.10..22.4.2" /> <id nullFlavor=&quot ;NA" /> <code codeSystem="local" code=" 300.3050" displayName="AST - Aspartate Amino Transfer" /> <statusCode code="completed" /> < effectiveTime value="884315832581" /> <value unit=&quot ;U/L" xsi:type="PQ" value="30" /> < referenceRange> <observationRange> <text>14-36</ text> </observationRange> </referenceRange> </observation> </component> <component> <observation moodCode="EVN" classCode="OBS"> <templateId root="2.16.840.1.278528.10.20.22.4.2" /> <id nullFlavor="NA" /> <code codeSystem=" local" code="300.3100" displayName="ALT" /> <statusCode code="completed" /> <effectiveTime value="023093165724"/> <value unit="U/L" xsi: type="PQ" value="47" /> <referenceRange> <observationRange> <text>9-52</text> </observationRange> </referenceRange> </ observation> </component> <component> < observation moodCode="EVN" classCode="OBS"> < templateId root="2.16.840.1.608289.10.20.22.4.2" /> < id nullFlavor="NA" /> <code codeSystem="local&quot ; code="300.3110" displayName="TP - Total Protein" /> <statusCode code="completed" /> < effectiveTime value="224342636173" /> <value unit="G/DL& quot; xsi:type="PQ" value="6.9" /> < referenceRange> <observationRange> <text> 6.3-8.2</text> </observationRange> </ referenceRange> </observation> </component> < component> <observation moodCode="EVN" classCode=" OBS"> <templateId root="2.16.840.1.576102.10.20.22.4.2& quot; /> <id nullFlavor="NA" /> <code codeSystem="local" code="300.3120" displayName=" Albumin Level" /> <statusCode code="completed" /& gt; <effectiveTime value="086893405423" /> &lt ;value unit="G/DL" xsi:type="PQ" value="4.0" /&gt ; <referenceRange> <observationRange> <text>3.5-5.0</text> </observationRange> </referenceRange> </observation> </component> <component> <observation moodCode="EVN" classCode="OBS"> <templateId root=" 2.16.840.1.685326.10.20.22.4.2" /> <id nullFlavor="NA& quot; /> <code codeSystem="local" code="300.3130& quot; displayName="Globulin" /> <statusCode code=" completed" /> <effectiveTime value="412441956471" /&gt ; <value unit="G/DL"xsi:type="PQ" value=" 2.9" /> <referenceRange> <observationRange& gt; <text>2.4-3.6</text> </ observationRange> </referenceRange> </observation&gt ; </component> <component> <observation moodCode ="EVN" classCode="OBS"> <templateId root=& quot;2.16.840.1.449137.10.20.22.4.2" /> <id nullFlavor=&quot ;NA" /> <code codeSystem="local" code=" 300.3140" displayName="Albumin/Globulin Ratio" /> &lt ;statusCode code="completed" /><effectiveTime value=" 693925383176" /> <value unit="RATIO" xsi:type=& quot;PQ" value="1.4" /> <referenceRange> <observationRange> <text>1.1-2.2</text> </observationRange> </referenceRange> </ observation> </component> <component> < observation moodCode="EVN" classCode="OBS"> < templateId root="2.16.840.1.588358.10.20.22.4.2" /> < id nullFlavor="NA"/> <code codeSystem="local&quot ; code="300.0095" displayName="LICTERUS" /> < statusCode code="completed" /> <effectiveTimevalue=& quot;539037086444" /> <value unit="" xsi:type=& quot;PQ" value="< 2" /> <referenceRange&gt ; <observationRange> <text>0-7</text> </observationRange> </referenceRange> < /observation> </component> <component> < observation moodCode="EVN" classCode="OBS"> < templateId root="2.16.840.1.805123.10.20.22.4.2" /> < id nullFlavor="NA" /> <code codeSystem="local&quot ; code="300.0096" displayName="LHEMOLYSIS" /> < statusCode code="completed" /> <effectiveTime value=& quot;911035092889" /> <value unit="" xsi:type=& quot;PQ" value="<15" /> <referenceRange&gt ; <observationRange> <text>0-25</text&gt ; </observationRange> </referenceRange> </ observation> </component> <component> < observation moodCode="EVN" classCode="OBS"> < templateId root="[id number]" /> < id nullFlavor="NA" /> <code codeSystem="local&quot ; code="300.0097" displayName="LTURBIDITY" /> & lt;statusCode code="completed" /> <effectiveTime value= "[id number]" /> <value unit="" xsi:type=& quot;PQ" value="< 20" /> <referenceRange> <observationRange> <text>0-20</text> </observationRange> </referenceRange> & lt;/observation> </component> </organizer> </entry&gt ; <entry> <organizer moodCode="EVN" classCode=" BATTERY"> <templateId root="2.16.840.1.770947.10.20.22.4.1& quot; /> <id nullFlavor="NA" /> <code codeSystem ="local" code="LCMP" displayName="L200.0020" /&gt ; <statusCode code="completed" /> <component> <observation moodCode="EVN" classCode="OBS"> <templateId root="2.16.840.1.775202.10.20.22.4.2" /> <id nullFlavor="NA" /> <code codeSystem=" local" code="300.0400" displayName="FUNGAL CULTURE." /& gt; <statusCode code="completed" /> < effectiveTime value="436698961142" /> <value unit="MG/DL& quot; xsi:type="PQ" value="1.1" /> < referenceRange> <observationRange> <text> 0.7-1.2</text> </observationRange> </ referenceRange> </observation> </component> < component> <observation moodCode="EVN" classCode=" OBS"> <templateId root="2.16.840.1.524877.10.20.22.4.2& quot; /> <id nullFlavor="NA" /> <code codeSystem="local" code="300.0450" displayName="FUNGAL CULTURE, BLOOD." /> <statusCode code="completed" / > <effectiveTime value="687915606986" /> & lt;value unit="RATIO" xsi:type="PQ" value="16" /& gt; <referenceRange> <observationRange> <text>6-26</text> </observationRange> </ referenceRange> </observation> </component> < component> <observation moodCode="EVN" classCode=" OBS"> <templateId root="2.16.840.1.309995.10..22.4.2& quot; /> <id nullFlavor="NA" /> <code codeSystem="local" code="300.0100" displayName="NA - Sodium" /> <statusCode code="completed" /> <effectiveTime value="942606227070" /> <value unit="MEQ/L" xsi:type="PQ" value="142" /> <referenceRange> <observationRange> <text& gt;134-144</text> </observationRange> </ referenceRange> </observation> </component> < component> <observation moodCode="EVN" classCode=" OBS"> <templateId root="2.16.840.1.797513.10.20.22.4.2&quot ; /> <id nullFlavor="NA" /> <code codeSystem="local" code="300.0150" displayName=" Potassium" /> <statusCode code="completed" /> <effectiveTime value="630907406887" /> < value unit="MEQ/L" xsi:type="PQ" value="4.2" /&gt ; <referenceRange> <observationRange> <text>3.6-5</text> </observationRange> </ referenceRange> </observation> </component> < component> <observation moodCode="EVN" classCode=" OBS"> <templateId root="2.16.840.1.334209.10.20.22.4.2& quot; /> <id nullFlavor="NA" /> <code codeSystem="local" code="300.0200" displayName=" Chloride" /> <statusCode code="completed" /> <effectiveTime value="700130186914" /> < value unit="MEQ/L" xsi:type="PQ" value="105" /&gt ; <referenceRange> <observationRange> < text>98-107</text> </observationRange> </ referenceRange> </observation> </component> < component> <observation moodCode="EVN" classCode=" OBS"> <templateId root="2.16.840.1.517636.10..22.4.2& quot; /> <id nullFlavor="NA" /> <code codeSystem="local" code="300.0250" displayName="CO2 - Carbon Dioxide" /> <statusCode code="completed" /& gt; <effectiveTime value="275616314134" /> &lt ;value unit="MEQ/L" xsi:type="PQ" value="26" /&gt ; <referenceRange> <observationRange> <text>22-30</text> </observationRange> </referenceRange> </observation> </component> <component> <observation moodCode="EVN" classCode=& quot;OBS"> <templateId root=" 2.16.840.1.918193.10.20.22.4.2" /> <id nullFlavor="NA& quot; /> <code codeSystem="local" code="300.0300& quot; displayName="Anion Gap" /> <statusCode code=&quot ;completed" /> <effectiveTime value="934284135038&quot ; /> <value unit="MEQ/L" xsi:type="PQ" value= "11" /> <referenceRange> < observationRange> <text>5-15</text> </ observationRange> </referenceRange> </observation&gt ; </component> <component> <observation moodCode ="EVN"classCode="OBS"> <templateId root=&quot ;2.16.840.1.952846.10.20.22.4.2" /> <id nullFlavor="NA& quot; /> <code codeSystem="local" code="300.0350& quot; displayName="BUN - Blood Urea Nitrogen" /> < statusCode code="completed" /> <effectiveTime value=& quot;133362848495" /> <value unit="MG/DL" xsi:type ="PQ" value="17.0" /> <referenceRange> <observationRange> <text>7-17</text> </observationRange> </referenceRange> </ observation> </component> <component> < observation moodCode="EVN" classCode="OBS"> < templateId root="2.16.840.1.897405.10.20.22.4.2" /> < id nullFlavor="NA" /> <code codeSystem="local&quot ; code="300.0410" displayName="Glomerular Filtration Rate" / > <statusCode code="completed" /> < effectiveTime value="362076404612" /> <value unit=" " xsi:type="PQ" value="58" /> < referenceRange> <observationRange> <text> NRG</text> </observationRange> </referenceRange&gt ; </observation> </component> <component> <observation moodCode="EVN" classCode="OBS"> <templateId root="2.16.840.1.087996.10.20.22.4.2" /> &lt ;id nullFlavor="NA" /> <code codeSystem="local& quot; code="300.0500" displayName="Glucose" /> & lt;statusCode code="completed" /> <effectiveTime value= "985302911061" /> <value unit="MG/DL" xsi: type="PQ" value="84" /> <referenceRange> <observationRange> <text>65-110</text> </observationRange> </referenceRange> </ observation> </component> <component> < observation moodCode="EVN" classCode="OBS"> < templateId root="2.16.840.1.010474.10.20.22.4.2" /> < id nullFlavor="NA" /> <code codeSystem="local&quot ; code="300.2000" displayName="Osmolality,Calculated" /> <statusCode code="completed" /> < effectiveTime value="898233543746" /> <value unit=&quot ;MOSM/KG" xsi:type="PQ" value="274" /> < referenceRange> <observationRange> <text>261-280&lt ;/text> </observationRange> </referenceRange&gt ; </observation> </component> <component> <observation moodCode="EVN" classCode="OBS"> &lt ;templateId root="2.16.840.1.695319.10.20.22.4.2" /> < id nullFlavor="NA" /> <code codeSystem="local&quot ; code="300.2200" displayName="Calcium" /> < statusCode code="completed" /> <effectiveTime value=& quot;461340106411" /> <value unit="MG/DL" xsi:type ="PQ" value="10.0" /> <referenceRange> <observationRange> <text>8.4-10.2</text&gt ; </observationRange> </referenceRange> </ observation> </component> <component> < observation moodCode="EVN" classCode="OBS"> < templateIdroot="2.16.840.1.035570.10.20.22.4.2" /> <id nullFlavor="NA" /> <code codeSystem="local" code="300.2700" displayName="Bilirubin,Total" /> <statusCode code="completed" /> <effectiveTime value="925731970163" /> <value unit="MG/DL" xsi:type="PQ" value="0.60" /> <referenceRange > <observationRange> <text>0.20-1.30</ text> </observationRange> </referenceRange> </observation> </component> <component> <observation moodCode="EVN" classCode="OBS"> <templateId root="2.16.840.1.405166.10.20.22.4.2" /> <id nullFlavor="NA" /> <code codeSystem="local&quot ; code="300.2975" displayName="Alkaline Phosphatase" /> <statusCode code="completed" /> < effectiveTime value="269360291485" /> <value unit=&quot ;U/L" xsi:type="PQ" value="97" /> < referenceRange> <observationRange> <text>38-126& lt;/text> </observationRange> </referenceRange& gt; </observation> </component> <component> <observation moodCode="EVN" classCode="OBS"> <templateId root="2.16.840.1.615944.10.20.22.4.2" /> <id nullFlavor="NA" /> <code codeSystem=&quot ;local" code="300.3050" displayName="AST - Aspartate Amino Transfer" /> <statusCode code="completed" /> <effectiveTime value="015160959717" /> < value unit="U/L" xsi:type="PQ" value="14" /> <referenceRange> <observationRange> <text >14-36</text> </observationRange> </ referenceRange> </observation> </component> < component> <observation moodCode="EVN" classCode=" OBS"> <templateId root="2.16.840.1.388085.10.20.22.4.2& quot; /> <id nullFlavor="NA" /> < codecodeSystem="local" code="300.3100" displayName="ALT " /> <statusCode code="completed" /> & lt;effectiveTime value="150667261490" /> <value unit=& quot;U/L" xsi:type="PQ" value="44" /> < referenceRange> <observationRange> <text> 9-52</text> </observationRange> </ referenceRange> </observation> </component> < component> <observation moodCode="EVN" classCode=" OBS"> <templateId root="2.16.840.1.326658.10.20.22.4.2& quot;/> <id nullFlavor="NA" /> <code codeSystem="local"code="300.3110" displayName="TP - Total Protein" /> <statusCode code="completed" /& gt; <effectiveTime value="537404885283" /> <value unit="G/DL" xsi:type="PQ" value="7.7" /> <referenceRange> <observationRange> < text>6.3-8.2</text> </observationRange> </ referenceRange> </observation> </component> < component> <observation moodCode="EVN" classCode=" OBS"> <templateId root="2.16.840.1.900691.10.20.22.4.2& quot; /> <id nullFlavor="NA" /> <code codeSystem="local" code="300.3120" displayName=" Albumin Level" /> <statusCode code="completed" /& gt; <effectiveTime value="430021651561" /> &lt ;value unit="G/DL" xsi:type="PQ" value="4.5" /&gt ; <referenceRange> <observationRange> <text>3.5-5.0</text> </observationRange> </referenceRange> </observation> </component> <component> <observation moodCode="EVN" classCode="OBS"> <templateId root=" 2.16.840.1.212331.10.20.22.4.2" /> <id nullFlavor="NA& quot; /> <code codeSystem="local" code="300.3130& quot; displayName="Globulin" /> <statusCode code=" completed" /> <effectiveTime value="938675164378" /& gt; <value unit="G/DL" xsi:type="PQ" value=&quot ;3.2" /> <referenceRange> <observationRange > <text>2.4-3.6</text> </ observationRange> </referenceRange> </observation&gt ; </component> <component> <observation moodCode ="EVN" classCode="OBS"> <templateId root=& quot;2.16.840.1.983239.10.20.22.4.2" /> <id nullFlavor=&quot ;NA" /> <code codeSystem="local" code=" 300.3140" displayName="Albumin/Globulin Ratio" /> &lt ;statusCode code="completed" /> <effectiveTime value=" 484624159008" /> <value unit="RATIO" xsi:type=& quot;PQ" value="1.4" /> <referenceRange> <observationRange> <text>1.1-2.2</text> </observationRange> </referenceRange> </ observation> </component> <component> < observation moodCode="EVN" classCode="OBS"> < templateId root="2.16.840.1.591085.10.20.22.4.2" /> < id nullFlavor="NA" /> <code codeSystem="local&quot ; code="300.0095" displayName="LICTERUS" /> < statusCode code="completed" /> <effectiveTime value=& quot;626258832013" /> <value unit="" xsi:type=& quot;PQ" value="< 2" /> <referenceRange&gt ; <observationRange> <text>0-7</text> </observationRange> </referenceRange> & lt;/observation> </component> <component> < observation moodCode="EVN" classCode="OBS"> < templateId root="2.16.840.1.374027.10.20.22.4.2" /> < id nullFlavor="NA" /> <code codeSystem="local&quot ; code="300.0096" displayName="LHEMOLYSIS" /> & lt;statusCode code="completed" /> <effectiveTime value= "385263737229" /> <value unit="" xsi:type=& quot;PQ" value="< 15" /> <referenceRange&gt ; <observationRange> <text>0-25</text&gt ; </observationRange> </referenceRange> </ observation> </component> <component> < observation moodCode="EVN" classCode="OBS"> < templateId root="2.16.840.1.303786.10.20.22.4.2" /> < id nullFlavor="NA" /> <code codeSystem="local&quot ; code="300.0097" displayName="LTURBIDITY" /> & lt;statusCode code="completed" /> <effectiveTime value= "627727239280" /> <value unit="" xsi:type=& quot;PQ" value="< 20" /> <referenceRange&gt ; <observationRange> <text>0-20</text&gt ; </observationRange> </referenceRange> & lt;/observation> </component> </organizer> </entry&gt ; <entry> <organizer moodCode="EVN" classCode=" BATTERY"> <templateId root="2.16.840.1.364676.10.20.22.4.1& quot; /> <id nullFlavor="NA" /> <code codeSystem ="local" code="LPHOS" displayName="L200.0630" /&gt ; <statusCode code="completed" /> <component> <observation moodCode="EVN" classCode="OBS"> <templateId root="2.16.840.1.583615.10.20.22.4.2" /> <id nullFlavor="NA" /> <code codeSystem=" local" code="300.2300" displayName="Phosphorus" /> <statusCode code="completed" /> < effectiveTime value="964708722060" /><value unit="MG/DL& quot; xsi:type="PQ" value="4.4" /> < referenceRange> <observationRange> <text> 2.5-4.5</text> </observationRange> </ referenceRange> </observation> </component> </ organizer> </entry> <entry> <organizer moodCode="EVN " classCode="BATTERY"> <templateId root=" 2.16.840.1.175776.10.20.22.4.1" /> <id nullFlavor="NA&quot ; /> <code codeSystem="local" code="LMAG" displayName="L200.2000" /> <statusCode code="completed " /> <component> <observation moodCode="EVN& quot; classCode="OBS"> <templateId root=" 2.16.840.1.209836.10.20.22.4.2" /> <id nullFlavor="NA" /> <code codeSystem="local" code="300.2350" displayName="MAG - Magnesium" /> <statusCode code=&quot ;completed" /> <effectiveTime value="180312333549&quot ; /> <valueunit="MG/DL" xsi:type="PQ" value=& quot;2.1" /> <referenceRange> < observationRange> <text>1.6-2.3</text> & lt;/observationRange> </referenceRange> </ observation> </component> </organizer> </entry> & lt;entry> <organizer moodCode="EVN" classCode="BATTERY& quot;> <templateId root="2.16.840.1.928755.10.20.22.4.1" /& gt; <id nullFlavor="NA" /> <code codeSystem=" local" code="LLDH" displayName="L200.1855" /> & lt;statusCode code="completed" /> <component> &lt ;observation moodCode="EVN" classCode="OBS"> &lt ;templateId root="2.16.840.1.178909.10.20.22.4.2" /> < id nullFlavor="NA" /> <code codeSystem="local&quot ; code="300.3250" displayName="LDH - Lactate Dehydrogenase" /> <statusCode code="completed" /> < effectiveTime value="878504126806" /> <value unit=&quot ;U/L" xsi:type="PQ" value="331" /> < referenceRange> <observationRange> <text> 313-618</text> </observationRange> </ referenceRange> </observation> </component> </ organizer> </entry> <entry> <organizer moodCode="EVN " classCode="BATTERY"> <templateId root=" 2.16.840.1.142796.10.20.22.4.1" /> <id nullFlavor="NA&quot ; /> <code codeSystem="local" code="LTSH" displayName="L200.3850" /> <statusCode code="completed " /> <component> <observation moodCode="EVN& quot; classCode="OBS"> <templateId root=" 2.16.840.1.230261.10.20.22.4.2" /> <id nullFlavor="NA& quot; /> <code codeSystem="local" code="300.5500& quot; displayName="TSH - Thyroid Stim Hormone" /> < statusCode code="completed" /> <effectiveTime value=& quot;732322477009" /> <value unit="MIU/L" xsi:type ="PQ" value="29.20" /> <interpretationCode codeSystem="local" code="" /> < referenceRange> <observationRange> <text>0.47- 4.68</text> </observationRange> </ referenceRange> </observation> </component> </ organizer> </entry> <entry> <organizer moodCode="EVN " classCode="BATTERY"> <templateId root=" 2.16.840.1.080893.10.20.22.4.1" /> <id nullFlavor="NA&quot ; /> <code codeSystem="local" code="LCBC" displayName="L100.0050" /> <statusCode code="completed " /> <component> <observation moodCode="EVN& quot; classCode="OBS"> <templateId root=" 2.16.840.1.057891.10.20.22.4.2" /> <id nullFlavor="NA& quot; /> <code codeSystem="local" code="100.0150& quot; displayName="WBC - WHITE BLOOD COUNT" /> < statusCode code="completed" /> <effectiveTime value=& quot;793395973858" /> <value unit="T/MM3" xsi:type ="PQ" value="20.0" /> <interpretationCode codeSystem="local" code="*" /> < referenceRange> <observationRange> <text> 4.5-11.0</text> </observationRange> </ referenceRange> </observation> </component> < component> <observation moodCode="EVN" classCode=" OBS"> <templateId root="2.16.840.1.676606.10.20.22.4.2& quot; /> <id nullFlavor="NA" /> <code codeSystem="local" code="100.0250" displayName="RED BLOOD COUNT" /> <statusCode code="completed" /&gt ; <effectiveTime value="862238136366" /> < value unit="M/MM3" xsi:type="PQ" value="5.22" /&gt ; <interpretationCode codeSystem="local" code="*&quot ; /> <referenceRange> <observationRange> <text>4.00-5.20</text> </observationRange> </referenceRange> </observation> </component&gt ; <component> <observation moodCode="EVN" classCode="OBS"> <templateId root=" 2.16.840.1.675818.10.20.22.4.2" /> <id nullFlavor="NA& quot; /> <code codeSystem="local" code="100.0300& quot; displayName="HGB - HEMOGLOBIN"/> <statusCode code ="completed" /> <effectiveTime value="827381294503 " /> <value unit="GM/DL" xsi:type="PQ" value="14.3" /> <referenceRange> < observationRange><text>12-16</text> </ observationRange> </referenceRange> </observation&gt ; </component> <component> <observation moodCode ="EVN" classCode="OBS"> <templateId root=& quot;2.16.840.1.156464.10.20.22.4.2" /> <id nullFlavor=&quot ;NA" /> <code codeSystem="local" code=" 100.0400" displayName="HCT - HEMATOCRIT" /> <statusCode code="completed" /> <effectiveTime value=" 554766369685" /> <value unit="%" xsi:type= "PQ" value="43.1" /> <referenceRange> <observationRange> <text>36-46</text> </observationRange> </referenceRange></ observation> </component> <component> < observation moodCode="EVN" classCode="OBS"> < templateId root="2.16.840.1.279833.10.20.22.4.2" /> < id nullFlavor="NA" /> <code codeSystem="local&quot ; code="100.0550" displayName="MEAN CORPUSCULAR VOLUME" /&gt ; <statusCode code="completed" /> <effectiveTime value="173571326417" /> <value unit="UM3" xsi :type="PQ" value="82.6" /> <referenceRange&gt ; <observationRange> <text>80-100</text& gt; </observationRange> </referenceRange> </observation> </component> <component> &lt ;observation moodCode="EVN" classCode="OBS"> &lt ;templateId root="2.16.840.1.220600.10.20.22.4.2" /> < id nullFlavor="NA" /> <code codeSystem="local&quot ; code="100.0600" displayName="MEAN CORPUSCULAR HGB" /> <statusCode code="completed" /> < effectiveTime value="952662600022" /> <value unit=&quot ;UUG" xsi:type="PQ" value="27.4" /> < referenceRange> <observationRange> <text> 26-34</text> </observationRange> </ referenceRange> </observation> </component> < component> <observation moodCode="EVN" classCode=" OBS"> <templateId root="2.16.840.1.743952.10.20.22.4.2& quot; /> <id nullFlavor="NA" /> <code codeSystem="local" code="100.0650" displayName="MEAN CORPUSCULAR HGB CONC(MCHC" /> <statusCode code=" completed" /> <effectiveTime value="687973757984" /> <value unit="GM/DL" xsi:type="PQ" value=& quot;33.2" /> <referenceRange> < observationRange> <text>31-37</text> < /observationRange> </referenceRange> </observation& gt; </component> <component> <observation moodCode="EVN" classCode="OBS"> <templateId root="2.16.840.1.705387.10.20.22.4.2" /> <id nullFlavor ="NA" /> <code codeSystem="local" code=" 100.0750" displayName="RDW STANDARD DEVIATION" /> &lt ;statusCode code="completed" /> <effectiveTime value=& quot;363831347805" /> <value unit="FL" xsi:type=& quot;PQ" value="40.5" /> <referenceRange> & lt;observationRange> <text>36.9-50.2</text> </observationRange> </referenceRange> </ observation> </component> <component> < observation moodCode="EVN"classCode="OBS"> < templateId root="2.16.840.1.126226.10.20.22.4.2" /> < id nullFlavor="NA" /> <code codeSystem="local&quot ; code="100.0850" displayName="PLT - PLATELET COUNT" /> <statusCode code="completed" /> < effectiveTime value="653702667246" /> <value unit="T/ MM3" xsi:type="PQ" value="397" /> < referenceRange> <observationRange> <text> 130-400</text> </observationRange> </ referenceRange> </observation> </component> < component> <observation moodCode="EVN" classCode=" OBS"> <templateId root="2.16.840.1.753566.10.20.22.4.2& quot; /> <id nullFlavor="NA" /> <code codeSystem="local" code="100.0950" displayName="MEAN PLATELET VOLUME" /> <statusCode code="completed" / > <effectiveTime value="875467735716" /><value unit="UM3" xsi:type="PQ" value="9.5" /> <referenceRange> <observationRange> < text>9.4-12.4</text> </observationRange> </ referenceRange> </observation> </component> </ organizer> </entry> <entry> <organizer moodCode="EVN " classCode="BATTERY"> <templateId root=" 2.16.840.1.949013.10.20.22.4.1" /> <id nullFlavor="NA&quot ; /> <code codeSystem="local" code="LDIFFM" displayName="L100.0105" /> <statusCode code="completed " /> <component> <observation moodCode="EVN& quot; classCode="OBS"> <templateId root=" 2.16.840.1.168561.10.20.22.4.2" /> <id nullFlavor="NA&quot ; /> <code codeSystem="local" code="100.1650&quot ; displayName="NEUTROPHILS % (MANUAL)" /> < statusCode code="completed" /> <effectiveTime value=& quot;571940585708" /> <value unit="%" xsi:type ="PQ" value="64.0" /> <referenceRange> <observationRange> <text>33-66</text> </observationRange> </referenceRange> </ observation> </component> <component> < observation moodCode="EVN" classCode="OBS"> < templateId root="2.16.840.1.619918.10.20.22.4.2" /> < id nullFlavor="NA" /> <code codeSystem="local&quot ; code="100.1750" displayName="BAND NEUTROPHILS %" / > <statusCode code="completed" /> < effectiveTime value="561507069770" /> <value unit=" %" xsi:type="PQ" value="3.0" /> < referenceRange> <observationRange> <text> 0-6</text> </observationRange> </ referenceRange> </observation> </component> < component> <observation moodCode="EVN" classCode=" OBS"> <templateId root="2.16.840.1.288769.10.20.22.4.2& quot; /> <id nullFlavor="NA" /> <code codeSystem="local" code="100.1850" displayName=" LYMPHOCYTES % (MANUAL)" /> <statusCode code=" completed" /> <effectiveTime value="083175639077" /> <value unit="%" xsi:type="PQ" value="24.0" /> <referenceRange> < observationRange> <text>23-45</text> < /observationRange> </referenceRange> </observation& gt; </component> <component> <observation moodCode="EVN" classCode="OBS"> <templateId root="2.16.840.1.103105.10..22.4.2" /> <id nullFlavor ="NA" /> <code codeSystem="local" code=" 100.1950" displayName="MONOCYTES % (MANUAL)" /> <statusCode code="completed" /> <effectiveTime value="170709335859" /> <value unit="%& quot; xsi:type="PQ" value="4.0"/> < referenceRange> <observationRange> <text> 0-9.0</text> </observationRange> </ referenceRange> </observation> </component> < component> <observation moodCode="EVN" classCode=" OBS"> <templateId root="2.16.840.1.193399.10.20.22.4.2& quot; /> <id nullFlavor="NA" /> <code codeSystem="local" code="100.0" displayName=" EOSINOPHILS % (MANUAL)" /> <statusCode code=" completed" /> <effectiveTime value="193681861132" /> <value unit="%" xsi:type="PQ" value="5.0" /> <interpretationCode codeSystem=" local" code="*" /> <referenceRange> < observationRange> <text>0-4</text> </ observationRange> </referenceRange> </observation&gt ; </component> <component> <observation moodCode ="EVN" classCode="OBS"> <templateId root=& quot;2.16.840.1.289437.10.20.22.4.2" /> <id nullFlavor=&quot ;NA" /> <code codeSystem="local" code=" 100.2400" displayName="PROLYMPHOCYTES %" /> & lt;statusCode code="completed" /> <effectiveTime value= "868850056779" /> <value unit="T/MM3" xsi:type=& quot;PQ" value="12.8" /> <interpretationCode codeSystem=& quot;local" code="*" /> <referenceRange> <observationRange> <text>1.8-7.7</text> &lt ;/observationRange> </referenceRange> </observation& gt; </component> <component> <observation moodCode="EVN" classCode="OBS"> <templateId root="2.16.840.1.571354.10.20.22.4.2" /> <id nullFlavor ="NA" /> <code codeSystem="local" code=" 100.2450" displayName="PLASMA CELLS %" /> &lt ;statusCode code="completed" /> <effectiveTime value=& quot;908185965985" /> <value unit="T/MM3" xsi:type ="PQ" value="0.6" /> <referenceRange> <observationRange> <text>NRG</text> </observationRange> </referenceRange> </ observation> </component> <component> < observation moodCode="EVN" classCode="OBS"> < templateId root="2.16.840.1.095908.10.20.22.4.2" /> < id nullFlavor="NA" /> <code codeSystem="local&quot ; code="100.2650"displayName="NEUTROPHILS # (MANUAL)" /> <statusCode code="completed" /> < effectiveTime value="739008554527" /> <value unit=&quot ;T/MM3" xsi:type="PQ" value="0.8" /> < referenceRange> <observationRange> <text>0- 0.8</text> </observationRange> </ referenceRange> </observation> </component> < component> <observation moodCode="EVN" classCode=" OBS"> <templateId root="[id number]&quot ; /> <id nullFlavor="NA" /> <code codeSystem="local" code="100.2750" displayName=" MONOCYTES # (MANUAL)" /> <statusCode code="completed& quot; /> <effectiveTime value="[id number]" /> <value unit="T/MM3" xsi:type="PQ" value="1.0& quot; /> <interpretationCode codeSystem="local" code=& quot;*" /> <referenceRange> < observationRange> <text>0-0.5</text> < /observationRange> </referenceRange> </observation& gt; </component> <component> <observation moodCode=& quot;EVN" classCode="OBS"> <templateId root=" [id number]" /> <id nullFlavor="NA& quot; /> <code codeSystem="local" code="100.2550& quot; displayName="Lymphocytes # (Manual)" /> < statusCode code="completed" /> <effectiveTime value=& quot;174315826960" /> <value unit="T/MM3" xsi:type ="PQ" value="4.8" /> <referenceRange> <observationRange> <text>1-4.8</text> </observationRange> </referenceRange> </ observation> </component> <component> < observation moodCode="EVN" classCode="OBS"> < templateId root="2.16.840.1.732747.10.20.22.4.2" /> < id nullFlavor="NA" /> <code codeSystem="local" code=& quot;100.4565" displayName="LRBCMOR" /> < statusCode code="completed" /> <effectiveTime value=& quot;555186483748" /> <value unit="" xsi:type=& quot;PQ" value="Normal" /> <referenceRange> <observationRange> <text>NRG</text> </observationRange> </referenceRange> </ observation> </component> </organizer> </entry> & lt;entry> <organizer moodCode="EVN" classCode="BATTERY& quot;> <templateId root="2.16.840.1.813007.10.20.22.4.1" /& gt; <id nullFlavor="NA" /> <code codeSystem=" local" code="LT4F" displayName="L200.3600" /> & lt;statusCode code="completed" /> <component> &lt ;observation moodCode="EVN" classCode="OBS"> &lt ;templateId root="2.16.840.1.025752.10.20.22.4.2" /> < id nullFlavor="NA" /> <code codeSystem="local&quot ; code="300.5250" displayName="Free T4 (Free Thyroxine)-Batch& quot; /> <statusCode code="completed" /> & lt;effectiveTime value="890160510367" /> <value unit=& quot;NG/DL" xsi:type="PQ" value="0.67" /> & lt;interpretationCode codeSystem="local" code="*" /> <referenceRange> <observationRange> & lt;text>0.78-2.19</text> </observationRange> </referenceRange> </observation> </component> & lt;/organizer> </entry> <entry> <organizer moodCode=&quot ;EVN" classCode="BATTERY"> <templateId root=" 2.16.840.1.094317.10.20.22.4.1" /> <id nullFlavor="NA&quot ; /> <code codeSystem="local" code="LACTH-A" displayName="L750.0200" /> <statusCode code="completed " /> <component> <observation moodCode="EVN& quot; classCode="OBS"> <templateId root=" 2.16.840.1.989767.10.20.22.4.2" /> <id nullFlavor="NA& quot; /> <code codeSystem="local" code="902.0325& quot; displayName="LACTH-A" /> <statusCode code=" completed" /> <effectiveTime value="088108011333" /> <value unit="pg/mL" xsi:type="PQ" value="12 " /> <referenceRange> <observationRange&gt ; <text>NRG</text> </observationRange> </referenceRange> </observation> </component&gt ; </organizer> </entry> <entry> <organizer moodCode ="EVN" classCode="BATTERY"> <templateId root=& quot;2.16.840.1.001475.10.20.22.4.1" /> <id nullFlavor="NA& quot; /> <code codeSystem="local" code="LCORTP-A&quot ; displayName="L750.2986" /> <statusCode code=" completed" /> <component> <observation moodCode=& quot;EVN" classCode="OBS"> <templateId root=" 2.16.840.1.945427.10.20.22.4.2" /> <id nullFlavor="NA& quot; /> <code codeSystem="local" code="902.5675& quot; displayName="Cortisol PM, Serum - AMS" /> < statusCode code="completed" /> <effectiveTime value=& quot;554041543885" /> <value unit="" xsi:type="PQ& quot; value="6" /> <referenceRange> < observationRange> <text>NRG</text> </ observationRange> </referenceRange> </observation&gt ; </component> </organizer> </entry> <entry> <organizer moodCode="EVN" classCode="BATTERY"> <templateId root="2.16.840.1.138193.10.20.22.4.1" /> < id nullFlavor="NA" /> <code codeSystem="local" code="CBCWD" displayName="CBC With Platelet and Differential&quot ; /> <statusCode code="completed" /> <component& gt; <observation moodCode="EVN" classCode="OBS"&gt ; <templateId root="2.16.840.1.849430.10.20.22.4.2" /> <id nullFlavor="NA" /> <code codeSystem=& quot;local" code="ABASR" displayName="Absolute Basophils& quot; /> <statusCode code="completed" /> & lt;effectiveTime value="084528543109" /> <value unit=&quot ;10*3/uL" xsi:type="PQ" value="0.04" /> < referenceRange> <observationRange> <text> 0.00-0.20</text> </observationRange> </ referenceRange> </observation> </component> < component> <observation moodCode="EVN"classCode="OBS "> <templateId root="2.16.840.1.296558.10.20.22.4.2& quot; /> <id nullFlavor="NA" /> <code codeSystem="local" code="AEOSR" displayName="Absolute Eosinophils" /> <statusCode code="completed" /&gt ; <effectiveTime value="858017811224" /> <value unit="10*3/uL" xsi:type="PQ" value="0.67" /> <interpretationCode codeSystem="local" code="*" / > <referenceRange> <observationRange> <text>0.00-0.50</text> </observationRange> &lt ;/referenceRange> </observation> </component> & lt;component> <observation moodCode="EVN" classCode=&quot ;OBS"> <templateId root="2.16.840.1.379276.10.20.22.4.2 " /> <id nullFlavor="NA" /> <code codeSystem="local" code="ALYMR" displayName="Absolute Lymphocytes" /> <statusCode code="completed" /&gt ; <effectiveTime value="753104904302" /> < value unit="10*3/uL" xsi:type="PQ" value="3.33" /& gt; <interpretationCode codeSystem="local" code="*& quot; /> <referenceRange> <observationRange> <text>0.80-3.30</text> </ observationRange> </referenceRange> </observation&gt ; </component> <component> <observation moodCode ="EVN" classCode="OBS"> <templateId root=" 2.16.840.1.982924.10.20.22.4.2" /> <id nullFlavor="NA& quot; /> <code codeSystem="local" code="AMONR&quot ; displayName="Absolute Monocytes" /> <statusCode code= "completed" /><effectiveTime value="022214559073" /&gt ; <value unit="10*3/uL" xsi:type="PQ" value=& quot;0.76" /> <referenceRange> < observationRange> <text>0.30-1.00</text> </observationRange> </referenceRange> </ observation> </component> <component> < observation moodCode="EVN" classCode="OBS"> < templateId root="2.16.840.1.920477.10.20.22.4.2" /> < id nullFlavor="NA" /> <code codeSystem="local&quot ; code="ASEGR" displayName="Absolute Neutrophils" /> <statusCode code="completed" /> < effectiveTime value="568956894182" /> <value unit=&quot ;10*3/uL" xsi:type="PQ" value="10.93" /> & lt;interpretationCode codeSystem="local" code="*" /> <referenceRange> <observationRange> &lt ;text>1.90-7.00</text> </observationRange> & lt;/referenceRange> </observation> </component> <component> <observation moodCode="EVN" classCode=& quot;OBS"> <templateId root=" 2.16.840.1.987123.10.20.22.4.2" /> <id nullFlavor="NA& quot; /> <code codeSystem="local" code="BASOR" displayName="Basophils" /> <statusCode code=" completed" /> <effectiveTime value="590687902934" /> <value unit="%" xsi:type="PQ" value="0" /> <referenceRange> < observationRange> <text>0-2</text> </ observationRange> </referenceRange> </observation> </component> <component> <observation moodCode=& quot;EVN" classCode="OBS"> <templateId root=" 2.16.840.1.077727.10..22.4.2" /> <id nullFlavor="NA& quot; /> <code codeSystem="local" code="EOSR&quot ; displayName="Eosinophils" /> <statusCode code=" completed" /> <effectiveTime value="761459850331" /> <value unit="%" xsi:type="PQ" value="4" /> <referenceRange> < observationRange> <text>0-4</text> </ observationRange> </referenceRange> </observation&gt ; </component> <component> <observation moodCode ="EVN" classCode="OBS"> <templateId root=& quot;2.16.840.1.048058.10.20.22.4.2" /> <id nullFlavor=&quot ;NA" /> <code codeSystem="local" code="HCT& quot; displayName="HCT" /> <statusCode code=" completed" /> <effectiveTime value="347184481600" /> <value unit="%" xsi:type="PQ" value="43.7" /> <referenceRange> < observationRange> <text>37.0-47.0</text> </observationRange> </referenceRange> </ observation> </component> <component> < observation moodCode="EVN" classCode="OBS"> < templateId root="2.16.840.1.903867.10..22.4.2" /> < id nullFlavor="NA" /> <code codeSystem="local&quot ; code="HGB" displayName="HGB" /> < statusCode code="completed" /> <effectiveTime value=& quot;105429242954" /> <value unit="g/dL" xsi:type= "PQ" value="14.3" /> <referenceRange> <observationRange> <text>12.0-16.0</text&gt ; </observationRange> </referenceRange> </ observation> </component> <component> < observation moodCode="EVN" classCode="OBS"> < templateId root="2.16.840.1.728269.10.20.22.4.2" /> < id nullFlavor="NA" /> <code codeSystem="local&quot ; code="IMGA" displayName="Immature Granulocytes" /> <statusCode code="completed" /> < effectiveTime value="951628287536" /> <value unit=&quot ;%" xsi:type="PQ" value="0.7" /> & lt;referenceRange> <observationRange> <text& gt;0.0-1.0</text> </observationRange> </ referenceRange> </observation> </component> < component> <observation moodCode="EVN" classCode="OBS& quot;> <templateId root="2.16.840.1.373050.10.20.22.4.2&quot ; /> <id nullFlavor="NA" /> <code codeSystem="local" code="LYMPR" displayName=" Lymphocytes" /> <statusCode code="completed" /&gt ; <effectiveTime value="575624065326" /> < value unit="%" xsi:type="PQ" value="21" /& gt; <referenceRange> <observationRange> &lt ;text>20-46</text> </observationRange> </ referenceRange> </observation> </component> < component> <observation moodCode="EVN" classCode=" OBS"> <templateId root="2.16.840.1.727402.10.20.22.4.2& quot; /> <id nullFlavor="NA" /> < codecodeSystem="local" code="MCH" displayName="MCH&quot ; /> <statusCode code="completed" /> < effectiveTime value="346216728085" /> <value unit=&quot ;pg" xsi:type="PQ" value="27.4" /> < referenceRange> <observationRange> <text> 27.0-32.0</text> </observationRange> </ referenceRange> </observation> </component> < component> <observation moodCode="EVN"classCode="OBS "> <templateId root="2.16.840.1.429107.10.20.22.4.2& quot; /> <id nullFlavor="NA" /> <code codeSystem="local" code="MCHC" displayName="MCHC" /> <statusCode code="completed" /> < effectiveTime value="539546579377" /> <value unit=&quot ;g/dL" xsi:type="PQ" value="32.7" /> < referenceRange> <observationRange> <text> 32.0-36.0</text> </observationRange> </ referenceRange> </observation> </component> < component> <observation moodCode="EVN" classCode=" OBS"> <templateId root="2.16.840.1.774434.10.20.22.4.2& quot; /> <id nullFlavor="NA" /> <code codeSystem="local" code="MCV" displayName="MCV" /& gt; <statusCode code="completed" /> < effectiveTime value="036743561596" /> <value unit=&quot ;fL" xsi:type="PQ" value="83.9" /> < referenceRange> <observationRange> <text> 82.0-99.0</text> </observationRange> </ referenceRange> </observation> </component> < component> <observation moodCode="EVN" classCode=" OBS"> <templateId root="2.16.840.1.707296.10.20.22.4.2& quot; /> <id nullFlavor="NA" /> <code codeSystem="local" code="MONOR" displayName="Monocytes& quot; /> <statusCode code="completed" /> & lt;effectiveTime value="546250739198" /> <value unit=& quot;%" xsi:type="PQ" value="5" /> <referenceRange> <observationRange> <text>4- 11</text> </observationRange> </ referenceRange> </observation> </component> < component> <observation moodCode="EVN" classCode=" OBS"> <templateId root="2.16.840.1.927141.10.20.22.4.2& quot; /> <id nullFlavor="NA" /> < codecodeSystem="local" code="MPV" displayName="MPV&quot ; /> <statusCode code="completed" /> < effectiveTime value="593864025554" /> <value unit=&quot ;fL" xsi:type="PQ" value="9.2" /> < interpretationCode codeSystem="local" code="*" /> <referenceRange> <observationRange> < text>9.4-12.4</text> </observationRange> </ referenceRange> </observation> </component> < component> <observation moodCode="EVN" classCode=" OBS"> <templateId root="2.16.840.1.807099.10.20.22.4.2& quot; /> <id nullFlavor="NA" /> <code codeSystem="local" code="SEGR" displayName="Neutrophils " /> <statusCode code="completed" /> & lt;effectiveTime value="105132686811" /> <value unit=& quot;%" xsi:type="PQ" value="69" /> <referenceRange> <observationRange> <text> 51-75</text> </observationRange> </ referenceRange> </observation> </component>< component> <observation moodCode="EVN" classCode=" OBS"> <templateId root="2.16.840.1.167862.10.20.22.4.2" /> <id nullFlavor="NA" /> <code codeSystem="local" code="NRBCA" displayName="Nucleated RBC Automated" /> <statusCode code="completed" /& gt; <effectiveTime value="312040081309" /> < value unit="/100WBC" xsi:type="PQ" value="0.0" /& gt; <referenceRange><observationRange> < text /> </observationRange> </referenceRange&gt ; </observation> </component> <component> & lt;observation moodCode="EVN" classCode="OBS"> & lt;templateId root="2.16.840.1.864333.10.20.22.4.2" /> &lt ;id nullFlavor="NA" /> <code codeSystem="local" code="PLT" displayName="Platelet Count" /> < statusCode code="completed" /> <effectiveTime value=& quot;273001373122" /> <value unit="K/uL" xsi:type= "PQ" value="334" /> <referenceRange> <observationRange> <text>150-400</text> &lt ;/observationRange> </referenceRange> </observation& gt; </component> <component> <observation moodCode="EVN" classCode="OBS"> <templateId root="2.16.840.1.636289.10.20.22.4.2" /> <id nullFlavor ="NA" /> <code codeSystem="local" code=" RBC" displayName="RBC" /> <statusCode code=" completed" /> <effectiveTime value="526303642384" /> <value unit="10*6/uL" xsi:type="PQ" value= "5.21" /> <interpretationCode codeSystem="local" code="*" /> <referenceRange> < observationRange> <text>4.00-5.20</text> < /observationRange> </referenceRange> </observation& gt; </component> <component> <observation moodCode="EVN" classCode="OBS"> <templateId root="2.16.840.1.656558.10.20.22.4.2" /> <id nullFlavor=&quot ;NA" /> <code codeSystem="local" code="RDW& quot; displayName="RDW" /> <statusCode code=" completed" /> <effectiveTime value="752657598252" / > <value unit="%" xsi:type="PQ" value ="13.6" /> <referenceRange> <observationRange& gt; <text>11.5-14.5</text> </ observationRange> </referenceRange> </observation&gt ; </component> <component> <observation moodCode=& quot;EVN" classCode="OBS"> <templateId root=" 2.16.840.1.297571.10.20.22.4.2" /> <id nullFlavor="NA& quot; /> <code codeSystem="local" code="WBCIR&quot ; displayName="WBC" /> <statusCode code="completed " /> <effectiveTime value="088731598167" /> <value unit="K/uL" xsi:type="PQ" value="15.8& quot; /> <interpretationCode codeSystem="local" code=& quot;*" /> <referenceRange> < observationRange> <text>4.8-10.8</text> </ observationRange> </referenceRange> </observation&gt ; </component> </organizer> </entry> <entry> <organizer moodCode="EVN" classCode="BATTERY"> <templateId root="2.16.840.1.819496.10.20.22.4.1" /> < id nullFlavor="NA" /> <code codeSystem="local" code="CMP" displayName="Comprehensive Metabolic Panel (CMP)&quot ; /> <statusCode code="completed" /> <component& gt; <observation moodCode="EVN" classCode="OBS"&gt ; <templateId root="2.16.840.1.917357.10.20.22.4.2" /> <id nullFlavor="NA" /> <code codeSystem=& quot;local" code="ALB" displayName="Albumin" /> <statusCode code="completed" /> < effectiveTime value="034575887129" /> <value unit=&quot ;g/dL" xsi:type="PQ" value="3.8" /> < referenceRange> <observationRange> <text>3.5-4.8& lt;/text> </observationRange> </referenceRange& gt; </observation> </component> <component> <observation moodCode="EVN" classCode="OBS"> <templateId root="2.16.840.1.557111.10.20.22.4.2" /> <id nullFlavor="NA" /> <code codeSystem=&quot ;local" code="ALP" displayName="Alkaline Phosphatase" / > <statusCode code="completed" /> < effectiveTime value="010148565361" /> <value unit=&quot ;U/L" xsi:type="PQ" value="88" /> < referenceRange> <observationRange> <text> 26-104</text> </observationRange> </ referenceRange> </observation> </component> < component> <observation moodCode="EVN" classCode=" OBS"> <templateId root="2.16.840.1.258187.10.20.22.4.2& quot; /> <id nullFlavor="NA" /> <code codeSystem="local" code="ALT" displayName="ALT (SGPT)& quot; /> <statusCodecode="completed" /> &lt ;effectiveTime value="971671956930" /> <value unit="U/L " xsi:type="PQ" value="21" /> < referenceRange> <observationRange> <text> 14-54</text> </observationRange> </referenceRange > </observation> </component> <component> <observation moodCode="EVN" classCode="OBS"> <templateId root="2.16.840.1.699055.10.20.22.4.2" /> <id nullFlavor="NA" /> <code codeSystem=" local" code="AGAP" displayName="Anion Gap" /> <statusCode code="completed" /> <effectiveTime value="146787073832" /> <value unit="mEq/L" xsi:type="PQ" value="11" /> <referenceRange& gt; <observationRange> <text>3-20</text> </observationRange> </referenceRange> </ observation> </component> <component> < observation moodCode="EVN" classCode="OBS"> < templateId root="2.16.840.1.312361.10.20.22.4.2" /> < id nullFlavor="NA" /> <code codeSystem="local&quot ; code="AST" displayName="AST (SGOT)" /> < statusCode code="completed" /> <effectiveTime value=& quot;725642596411" /> <value unit="U/L" xsi:type=& quot;PQ" value="18" /> <referenceRange> <observationRange> <text>15-41</text> </observationRange> </referenceRange> </ observation> </component> <component> < observation moodCode="EVN" classCode="OBS"> < templateId root="2.16.840.1.154362.10.20.22.4.2" /> < id nullFlavor="NA" /> <code codeSystem="local" code=& quot;BILIT" displayName="Bilirubin Total" /> < statusCode code="completed" /> <effectiveTime value=& quot;361722070479" /> <value unit="mg/dL" xsi:type ="PQ" value="0.3" /> <referenceRange> <observationRange><text>0.2-1.2</text> < /observationRange> </referenceRange> </observation& gt; </component> <component> <observation moodCode="EVN" classCode="OBS"> <templateId root="2.16.840.1.178237.10.20.22.4.2" /> <id nullFlavor ="NA" /> <code codeSystem="local" code=" BUN" displayName="BUN" /> <statusCode code=" completed" /> <effectiveTime value="373241697459" /> <value unit="mg/dL" xsi:type="PQ" value=& quot;13" /><referenceRange> <observationRange> <text>4-20</text> </observationRange> </referenceRange> </observation> </component&gt ; <component> <observation moodCode="EVN" classCode="OBS"> <templateId root=" 2.16.840.1.999416.10.20.22.4.2" /> <id nullFlavor="NA& quot; /> <code codeSystem="local" code="CA" displayName="Calcium" /> <statusCode code=" completed" /> <effectiveTime value="380227121193" /> <value unit="mg/dL" xsi:type="PQ" value=& quot;9.2" /> <referenceRange> <observationRange& gt; <text>8.6-10.0</text> </ observationRange> </referenceRange> </observation&gt ; </component> <component> <observation moodCode=& quot;EVN" classCode="OBS"> <templateId root=" 2.16.840.1.537641.10.20.22.4.2" /> <id nullFlavor="NA& quot; /> <code codeSystem="local" code="CL" displayName="Chloride" /> <statusCode code=" completed" /> <effectiveTime value="089137360435" /> <value unit="mEq/L" xsi:type="PQ" value=& quot;102" /> <referenceRange> < observationRange> <text>99-109</text> &lt ;/observationRange> </referenceRange> </observation& gt; </component> <component> <observation moodCode=& quot;EVN" classCode="OBS"> <templateId root=" 2.16.840.1.048110.10.20.22.4.2" /> <id nullFlavor="NA& quot; /> <code codeSystem="local" code="CO2" displayName="CO2" /> <statusCode code="completed& quot; /> <effectiveTime value="245123051089" /> <value unit="mEq/L" xsi:type="PQ" value="23& quot; /> <referenceRange> <observationRange> <text>22-32</text> </observationRange&gt ; </referenceRange> </observation> </ component> <component> <observation moodCode="EVN& quot; classCode="OBS"> <templateId root=" 2.16.840.1.554989.10.20.22.4.2" /> <id nullFlavor="NA& quot; /> <code codeSystem="local" code="CREAT&quot ; displayName="Creatinine" /> <statusCode code=" completed" /> <effectiveTime value="849351547046" /> <value unit="mg/dL" xsi:type="PQ" value=" 1.10" /><interpretationCode codeSystem="local" code="* " /> <referenceRange> <observationRange&gt ; <text>0.44-1.03</text> </observationRange> </referenceRange> </observation> </component& gt; <component> <observation moodCode="EVN" classCode="OBS"> <templateId root=" 2.16.840.1.396654.10.20.22.4.2" /> <id nullFlavor="NA& quot; /> <code codeSystem="local" code="GLOB&quot ; displayName="Globulin" /> <statusCode code=" completed" /> <effectiveTime value="999970251884" / > <value unit="g/dL" xsi:type="PQ" value=& quot;2.8" /> <referenceRange> < observationRange> <text>1.9-4.3</text> & lt;/observationRange> </referenceRange> </ observation> </component> <component> < observation moodCode="EVN" classCode="OBS"> < templateId root="2.16.840.1.320269.10.20.22.4.2" /> < id nullFlavor="NA" /> <code codeSystem="local&quot ; code="GLU" displayName="Glucose" /> < statusCode code="completed" /> <effectiveTime value=& quot;868607736265" /> <value unit="mg/dL" xsi:type ="PQ" value="132" /> <interpretationCode codeSystem="local" code="*" /> < referenceRange> <observationRange> <text> 70-100</text> </observationRange> </ referenceRange> </observation> </component> < component> <observation moodCode="EVN" classCode=" OBS"> <templateId root="2.16.840.1.354261.10.20.22.4.2& quot; /> <id nullFlavor="NA" /> <code codeSystem="local" code="K" displayName="Potassium&quot ; /> <statusCode code="completed" /> < effectiveTime value="487870170675" /> <value unit=" mEq/L" xsi:type="PQ" value="3.6" /> < referenceRange> <observationRange> <text> 3.6-5.1</text> </observationRange> </ referenceRange> </observation> </component> < component> <observation moodCode="EVN" classCode=" OBS"> <templateId root="2.16.840.1.286467.10.20.22.4.2& quot; /> <id nullFlavor="NA" /> <code codeSystem="local" code="TP" displayName="Protein&quot ; /> <statusCode code="completed" /> < effectiveTime value="071530675911" /> <value unit=&quot ;g/dL" xsi:type="PQ" value="6.6" /> < referenceRange> <observationRange> <text>6.1 -7.9</text> </observationRange> </ referenceRange> </observation> </component> < component> <observation moodCode="EVN" classCode=" OBS"> <templateId root="2.16.840.1.437362.10.20.22.4.2& quot; /> <id nullFlavor="NA" /> <code codeSystem="local" code="NA" displayName="Sodium" /> <statusCode code="completed" /> < effectiveTime value="809958774715" /> <value unit=&quot ;mEq/L" xsi:type="PQ" value="136" /> < referenceRange> <observationRange> <text> 136-144</text> </observationRange> </ referenceRange> </observation> </component> </ organizer> </entry> <entry> <organizer moodCode="EVN " classCode="BATTERY"> <templateId root=" 2.16.840.1.365034.10.20.22.4.1" /> <id nullFlavor="NA&quot ; /> <code codeSystem="local" code="GFR" displayName="eGFR" /> <statusCode code="completed&quot ; /> <component> <observation moodCode="EVN" classCode="OBS"> <templateId root=" 2.16.840.1.507989.10.20.22.4.2" /> <id nullFlavor="NA& quot; /> <code codeSystem="local" code="GFR" displayName="eGFR" /> <statusCode code="completed&quot ; /> <effectiveTime value="709944914776" /> <value unit="mL/min" xsi:type="PQ" value="58&quot ; /> <interpretationCode codeSystem="local" code=" *" /> <referenceRange> <observationRange> <text>>60</text> </observationRange&gt ; </referenceRange> </observation> </ component> </organizer> </entry> <entry> < organizermoodCode="EVN" classCode="BATTERY"> < templateId root="2.16.840.1.308228.10.20.22.4.1" /> <id nullFlavor="NA" /> <code codeSystem="local" code= "TROP" displayName="Troponin" /> <statusCode code ="completed" /> <component> <observation moodCode="EVN" classCode="OBS"> <templateId root="216.840.1.518321.10..22.4.2" /> <id nullFlavor ="NA" /> <code codeSystem="local" code=" TROP" displayName="Troponin" /> <statusCode code=& quot;completed" /> <effectiveTime value="009579372702& quot; /> <value unit="ng/mL" xsi:type="PQ" value="<0.05" /> <referenceRange> <observationRange> <text><0.06</text> </observationRange> </referenceRange> </ observation> </component> </organizer> </entry> &lt ;entry> <organizer moodCode="EVN" classCode="BATTERY& quot;> <templateId root="2.16.840.1.227102.10.20.22.4.1" /& gt; <id nullFlavor="NA" /> <code codeSystem=" local" code="CBCWD" displayName="CBC With Platelet and Differential" /> <statusCode code="completed" /> & lt;component> <observation moodCode="EVN" classCode=&quot ;OBS"> <templateId root="[id number] " /> <id nullFlavor="NA" /> <code codeSystem="local" code="ABASR" displayName="Absolute Basophils" /> <statusCode code="completed" /> & lt;effectiveTime value="[id number]" /> <value unit=& quot;10*3/uL" xsi:type="PQ" value="0.04" /> <referenceRange> <observationRange> < text>0.00-0.20</text> </observationRange> &lt ;/referenceRange> </observation> </component> & lt;component> <observation moodCode="EVN" classCode=&quot ;OBS"> <templateId root="[id number] " /> <id nullFlavor="NA" /> <code codeSystem="local" code="AEOSR" displayName="Absolute Eosinophils" /> <statusCode code="completed" /&gt ; <effectiveTime value="[id number]" /> < value unit="10*3/uL" xsi:type="PQ" value="0.75" /& gt; <interpretationCode codeSystem="local" code="*& quot; /> <referenceRange> <observationRange> <text>0.00-0.50</text> </ observationRange> </referenceRange> </observation&gt ; </component> <component> <observation moodCode ="EVN" classCode="OBS"> <templateId root=& quot;2.16.840.1.514481.10.20.22.4.2" /> <id nullFlavor=&quot ;NA" /> <code codeSystem="local" code="ALYMR& quot; displayName="Absolute Lymphocytes" /> < statusCode code="completed" /> <effectiveTime value=& quot;835853326216" /> <value unit="10*3/uL" xsi: type="PQ" value="2.84" /> <referenceRange&gt ; <observationRange> <text>0.80-3.30</ text> </observationRange> </referenceRange> </observation> </component> <component> &lt ;observation moodCode="EVN" classCode="OBS"> &lt ;templateId root="2.16.840.1.236605.10..22.4.2" /> <id nullFlavor="NA" /> <code codeSystem="local" code="AMONR" displayName="Absolute Monocytes" /> <statusCode code="completed" /> <effectiveTime value="688430874637" /> <value unit="10*3/uL&quot ; xsi:type="PQ" value="0.97" /> < referenceRange> <observationRange> <text> 0.30-1.00</text> </observationRange> </ referenceRange> </observation> </component> < component> <observation moodCode="EVN" classCode=" OBS"> <templateId root="2.16.840.1.898066.10..22.4.2& quot; /> <id nullFlavor="NA" /> <code codeSystem= "local" code="ASEGR" displayName="Absolute Neutrophils& quot; /> <statusCode code="completed" /> & lt;effectiveTime value="224133320467" /> <value unit=& quot;10*3/uL" xsi:type="PQ" value="9.48" /> <interpretationCode codeSystem="local" code="*" /> <referenceRange> <observationRange> <text >1.90-7.00</text> </observationRange> </ referenceRange> </observation> </component> < component> <observation moodCode="EVN" classCode=" OBS"> <templateId root="2.16.840.1.134673.10.20.22.4.2&quot ; /> <id nullFlavor="NA" /> <code codeSystem="local" code="BASOR" displayName="Basophils& quot; /> <statusCode code="completed" /> & lt;effectiveTime value="837079159481" /> <value unit=& quot;%" xsi:type="PQ" value="0" /> <referenceRange> <observationRange> <text >0-2</text> </observationRange> </ referenceRange> </observation> </component> < component> <observation moodCode="EVN" classCode="OBS& quot;> <templateId root="2.16.840.1.203559.10.20.22.4.2&quot ; /> <id nullFlavor="NA" /> <code codeSystem="local" code="EOSR" displayName="Eosinophils " /> <statusCode code="completed" /> & lt;effectiveTime value="788093973841" /> <value unit=& quot;%" xsi:type="PQ" value="5" /> <interpretationCode codeSystem="local" code="*" /> <referenceRange> <observationRange> & lt;text>0-4</text> </observationRange> </ referenceRange> </observation> </component> < component> <observation moodCode="EVN" classCode=" OBS"> <templateId root="2.16.840.1.007043.10.20.22.4.2& quot; /> <id nullFlavor="NA" /> <code codeSystem="local" code="HCT" displayName="HCT" /& gt; <statusCode code="completed" /> < effectiveTime value="890242035700" /> <value unit=&quot ;%" xsi:type="PQ" value="42.9" /> & lt;referenceRange> <observationRange> <text& gt;37.0-47.0</text> </observationRange> </ referenceRange> </observation> </component> < component> <observation moodCode="EVN" classCode=" OBS"> <templateId root="2.16.840.1.857810.10.20.22.4.2& quot; /> <id nullFlavor="NA" /> <code codeSystem="local" code="HGB" displayName="HGB" /& gt; <statusCode code="completed" /> < effectiveTime value="879625842102" /> <value unit=&quot ;g/dL" xsi:type="PQ" value="13.9" /> < referenceRange> <observationRange> <text> 12.0-16.0</text> </observationRange> </ referenceRange> </observation> </component> < component> <observation moodCode="EVN" classCode=" OBS"> <templateId root="2.16.840.1.419419.10.20.22.4.2" /& gt; <id nullFlavor="NA" /> <code codeSystem ="local" code="IMGA" displayName="Immature Granulocytes " /> <statusCode code="completed" /> < effectiveTime value="522247731647" /> <value unit=&quot ;%" xsi:type="PQ" value="0.7" /> & lt;referenceRange> <observationRange> <text& gt;0.0-1.0</text> </observationRange> </ referenceRange> </observation> </component> < component> <observation moodCode="EVN" classCode=" OBS"> <templateId root="2.16.840.1.276789.10.20.22.4.2& quot; /> <id nullFlavor="NA" /> <code codeSystem="local" code="LYMPR" displayName=" Lymphocytes" /> <statusCode code="completed" /&gt ; <effectiveTime value="031117085745" /> < value unit="%" xsi:type="PQ" value="20" /& gt; <referenceRange> <observationRange> <text>20-46</text> </observationRange> </referenceRange> </observation> </component> <component><observation moodCode="EVN" classCode=" OBS"> <templateId root="2.16.840.1.526747.10.20.22.4.2& quot; /> <id nullFlavor="NA" /> <code codeSystem="local" code="MCH" displayName="MCH" /& gt; <statusCode code="completed" /> < effectiveTime value="000022002843" /> <value unit=&quot ;pg" xsi:type="PQ" value="27.1" /> < referenceRange> <observationRange> <text> 27.0-32.0</text> </observationRange> </ referenceRange> </observation> </component> < component> <observation moodCode="EVN" classCode=" OBS"> <templateId root="2.16.840.1.654979.10.20.22.4.2& quot; /> <id nullFlavor="NA" /> <code codeSystem="local" code="MCHC" displayName="MCHC" /> <statusCode code="completed" /> < effectiveTime value="080949185633" /> <value unit=&quot ;g/dL" xsi:type="PQ" value="32.4" /> < referenceRange> <observationRange> <text> 32.0-36.0</text> </observationRange> </ referenceRange> </observation></component> < component> <observation moodCode="EVN" classCode=" OBS"> <templateId root="2.16.840.1.546495.10.20.22.4.2& quot; /> <id nullFlavor="NA" /> <code codeSystem="local" code="MCV" displayName="MCV" /& gt; <statusCode code="completed" /> < effectiveTime value="639702693029" /> <value unit=&quot ;fL" xsi:type="PQ" value="83.8" /> < referenceRange> <observationRange> <text> 82.0-99.0</text> </observationRange> </ referenceRange> </observation> </component> < component> <observation moodCode="EVN" classCode=" OBS"><templateId root="2.16.840.1.248293.10.20.22.4.2" /&gt ; <id nullFlavor="NA" /> <code codeSystem=& quot;local" code="MONOR" displayName="Monocytes" /> <statusCode code="completed" /> < effectiveTime value="574487675509" /> <value unit=&quot ;%" xsi:type="PQ" value="7" /> < referenceRange> <observationRange> <text> 4-11</text> </observationRange> </ referenceRange> </observation> </component> < component><observation moodCode="EVN" classCode="OBS"& gt; <templateId root="2.16.840.1.295929.10.20.22.4.2" /&gt ; <id nullFlavor="NA" /> <code codeSystem=" local" code="MPV" displayName="MPV" /> < statusCode code="completed" /> <effectiveTime value=& quot;946747717601" /> <value unit="fL" xsi:type=& quot;PQ" value="9.6"/> <referenceRange> <observationRange> <text>9.4-12.4</text> </observationRange> </referenceRange> </ observation> </component> <component> < observation moodCode="EVN" classCode="OBS"> < templateId root="2.16.840.1.194388.10.20.22.4.2" /> < id nullFlavor="NA" /> <code codeSystem="local&quot ; code="SEGR" displayName="Neutrophils" /> < statusCode code="completed" /> <effectiveTime value=& quot;780277032196" /> <value unit="%" xsi:type=& quot;PQ" value="67" /><referenceRange> < observationRange> <text>51-75</text> < /observationRange> </referenceRange> </observation& gt; </component> <component> <observation moodCode ="EVN" classCode="OBS"> <templateId root=& quot;2.16.840.1.299876.10..22.4.2" /> <id nullFlavor=" NA" /> <code codeSystem="local" code="NRBCA& quot; displayName="Nucleated RBC Automated" /> < statusCode code="completed" /> <effectiveTime value=& quot;396444452252" /> <value unit="/100WBC" xsi: type="PQ" value="0.0" /> <referenceRange> <observationRange> <text /> < /observationRange> </referenceRange> </observation& gt; </component> <component> <observation moodCode="EVN" classCode="OBS"> <templateId root="2.16.840.1.147628.10.20.22.4.2" /> <id nullFlavor ="NA" /> <code codeSystem="local" code=" PLT" displayName="Platelet Count" /> <statusCode code="completed" /> <effectiveTime value="637904216277& quot; /> <value unit="K/uL" xsi:type="PQ" value="315" /> <referenceRange> < observationRange> <text>150-400</text> & lt;/observationRange> </referenceRange> </observation& gt; </component> <component> <observation moodCode="EVN" classCode="OBS"> <templateId root="2.16.840.1.909706.10.20.22.4.2" /> <id nullFlavor ="NA" /> <code codeSystem="local" code=" RBC" displayName="RBC" /> <statusCode code=" completed" /> <effectiveTime value="372931640537" /> <value unit="10*6/uL" xsi:type="PQ" value= "5.12" /> <referenceRange> < observationRange> <text>4.00-5.20</text> </ observationRange> </referenceRange> </observation&gt ; </component> <component> <observation moodCode ="EVN" classCode="OBS"> <templateId root=& quot;2.16.840.1.696583.10..22.4.2" /> <id nullFlavor=&quot ;NA" /> <code codeSystem="local" code="RDW& quot; displayName="RDW" /> <statusCode code=" completed" /> <effectiveTime value="840066258372"/ > <value unit="%" xsi:type="PQ" value ="13.8" /> <referenceRange> < observationRange> <text>11.5-14.5</text> </observationRange> </referenceRange> </ observation> </component> <component> < observation moodCode="EVN" classCode="OBS"> < templateId root="2.16.840.1.911760.10.20.22.4.2" /> < id nullFlavor="NA" /> <code codeSystem="local&quot ; code="WBCIR" displayName="WBC" /> < statusCode code="completed" /> <effectiveTime value=& quot;576567069952" /> <value unit="K/uL" xsi:type= "PQ" value="14.2" /> <interpretationCode codeSystem="local" code="*" /> < referenceRange> <observationRange> <text>4.8- 10.8</text> </observationRange> </ referenceRange> </observation> </component> </ organizer> </entry> <entry> <organizer moodCode="EVN " classCode="BATTERY"> <templateId root=" 2.16.840.1.356914.10.20.22.4.1" /> <id nullFlavor="NA&quot ; /> <code codeSystem="local" code="BMP" displayName="Basic Metabolic Panel (BMP)" /> <statusCode code="completed" /> <component> <observation moodCode="EVN" classCode="OBS"> <templateId root="2.16.840.1.552788.10.20.22.4.2" /> <id nullFlavor=&quot ;NA" /> <code codeSystem="local" code="AGAP& quot; displayName="Anion Gap" /> <statusCode code=&quot ;completed" /> <effectiveTime value="580192778771&quot ; /> <value unit="mEq/L" xsi:type="PQ" value= "7" /> <referenceRange> <observationRange> <text>3-20</text> </observationRange&gt ; </referenceRange> </observation> </ component> <component> <observation moodCode="EVN& quot; classCode="OBS"> <templateId root=" 2.16.840.1.141295.10.20.22.4.2" /> <id nullFlavor="NA& quot; /> <code codeSystem="local" code="BUN" displayName="BUN" /> <statusCode code="completed& quot; /> <effectiveTime value="267468849534" /> <value unit="mg/dL" xsi:type="PQ" value="16& quot; /> <referenceRange> <observationRange> <text>4-20</text> </observationRange> </referenceRange> </observation> </component& gt; <component> <observation moodCode="EVN" classCode="OBS"> <templateId root=" 2.16.840.1.671504.10..22.4.2" /> <id nullFlavor="NA& quot; /> <code codeSystem="local" code="CA" displayName="Calcium" /> <statusCode code=" completed" /> <effectiveTime value="409026070240" /> <value unit="mg/dL" xsi:type="PQ" value=& quot;9.0" /> <referenceRange> < observationRange> <text>8.6-10.0</text> & lt;/observationRange> </referenceRange> </ observation> </component> <component> < observation moodCode="EVN" classCode="OBS"> < templateId root="2.16.840.1.010767.10.20.22.4.2" /> < id nullFlavor="NA" /> <code codeSystem="local&quot ; code="CL" displayName="Chloride" /> < statusCode code="completed" /> <effectiveTime value=& quot;674095611970" /> <value unit="mEq/L" xsi:type ="PQ" value="105" /> <referenceRange> <observationRange> <text>99-109</text> & lt;/observationRange> </referenceRange> </ observation> </component> <component> < observation moodCode="EVN" classCode="OBS"> < templateId root="2.16.840.1.449495.10.20.22.4.2" /> < id nullFlavor="NA" /> <code codeSystem="local&quot ; code="CO2" displayName="CO2" /> < statusCode code="completed" /> <effectiveTime value=" 155163089962" /> <value unit="mEq/L" xsi:type=& quot;PQ" value="24" /> <referenceRange> <observationRange> <text>22-32</text> </observationRange> </referenceRange> </ observation> </component> <component> < observation moodCode="EVN" classCode="OBS"> < templateId root="2.16.840.1.276665.10.20.22.4.2" /> < id nullFlavor="NA"/> <code codeSystem="local&quot ; code="CREAT" displayName="Creatinine" /> < statusCode code="completed" /> <effectiveTime value=& quot;585240581955" /> <value unit="mg/dL" xsi:type ="PQ" value="1.16" /> <interpretationCode codeSystem="local" code="*" /> < referenceRange> <observationRange> <text> 0.44-1.03</text> </observationRange> </ referenceRange> </observation> </component> < component> <observation moodCode="EVN" classCode=" OBS"> <templateId root="2.16.840.1.726008.10.20.22.4.2& quot; /> <id nullFlavor="NA" /> <code codeSystem="local" code="GLU" displayName="Glucose&quot ; /> <statusCode code="completed" /> < effectiveTime value="163108937755" /> <value unit=" mg/dL" xsi:type="PQ" value="96" /> < referenceRange> <observationRange> <text> 70-100</text> </observationRange> </ referenceRange> </observation> </component> < component> <observation moodCode="EVN" classCode=" OBS"> <templateId root="2.16.840.1.400733.10.20.22.4.2& quot; /> <id nullFlavor="NA" /> <code codeSystem="local" code="K" displayName="Potassium&quot ; /> <statusCode code="completed" /> < effectiveTime value="335440512633" /> <value unit=&quot ;mEq/L" xsi:type="PQ" value="4.3" /> < referenceRange> <observationRange> <text> 3.6-5.1</text> </observationRange> </ referenceRange> </observation> </component> < component> <observation moodCode="EVN" classCode=" OBS"> <templateId root="2.16.840.1.007332.10.20.22.4.2& quot; /> <id nullFlavor="NA" /> <code codeSystem="local" code="NA" displayName="Sodium" /> <statusCode code="completed" /> < effectiveTime value="542850705439" /> <value unit=&quot ;mEq/L" xsi:type="PQ" value="136" /> < referenceRange> <observationRange> <text> 136-144</text> </observationRange></referenceRange&gt ; </observation> </component> </organizer> &lt ;/entry> <entry> <organizer moodCode="EVN" classCode=& quot;BATTERY"> <templateId root=" 2.16.840.1.328417.10.20.22.4.1" /> <id nullFlavor="NA&quot ; /> <code codeSystem="local" code="GFR" displayName="eGFR" /> <statusCode code="completed&quot ; /> <component><observation moodCode="EVN" classCode ="OBS"> <templateId root=" 2.16.840.1.953498.10.20.22.4.2" /> <id nullFlavor="NA& quot; /> <code codeSystem="local" code="GFR" displayName="eGFR" /> <statusCode code="completed&quot ; /> <effectiveTime value="146851659343" /> <value unit="mL/min" xsi:type="PQ" value="55&quot ; /> <interpretationCode codeSystem="local" code=" *" /> <referenceRange> <observationRange> <text>>60</text> </observationRange& gt; </referenceRange> </observation> </ component> </organizer> </entry> <entry> < organizer moodCode="EVN" classCode="BATTERY"> < templateId root="2.16.840.1.082948.10.20.22.4.1" /> <id nullFlavor="NA" /> <code codeSystem="local" code= "GLUN" displayName="Glucose NPT" /> <statusCode code="completed" /> <component> <observation moodCode="EVN" classCode="OBS"> <templateId root="2.16.840.1.692181.10.20.22.4.2" /> <id nullFlavor ="NA" /> <code codeSystem="local" code=" GLUN" displayName="Glucose NPT" /> <statusCode code="completed" /> <effectiveTime value=" 450916701882" /><value unit="mg/dL" xsi:type="PQ&quot ; value="97" /> <referenceRange> < observationRange> <text>70-100</text> </ observationRange> </referenceRange> </observation&gt ; </component> </organizer> </entry> <entry> <organizer moodCode="EVN" classCode="BATTERY"> <templateId root="2.16.840.1.602673.10.20.22.4.1" /> < id nullFlavor="NA" /> <code codeSystem="local" code="LCBC" displayName="L100.0050" /> < statusCode code="completed" /> <component> < observation moodCode="EVN" classCode="OBS"> < templateId root="2.16.840.1.354898.10.20.22.4.2" /> <id nullFlavor="NA" /> <code codeSystem="local" code="100.0150" displayName="WBC - WHITE BLOOD COUNT" /> <statusCode code="completed" /> < effectiveTime value="976516732698" /> <value unit=&quot ;T/MM3" xsi:type="PQ" value="12.1" /> < interpretationCode codeSystem="local" code="*" /> <referenceRange> <observationRange> <text >4.5-11.0</text> </observationRange> </ referenceRange> </observation> </component> < component> <observation moodCode="EVN" classCode=" OBS"> <templateId root="2.16.840.1.887132.10.20.22.4.2& quot; /> <id nullFlavor="NA" /> <code codeSystem="local" code="100.0250" displayName="RED BLOOD COUNT" /> <statusCode code="completed" /&gt ; <effectiveTime value="248938688271" /> < value unit="M/MM3" xsi:type="PQ" value="4.91" /&gt ; <referenceRange><observationRange> <text& gt;4.00-5.20</text> </observationRange> </ referenceRange> </observation> </component> < component> <observation moodCode="EVN" classCode=" OBS"> <templateId root="2.16.840.1.885212.10.20.22.4.2" /& gt; <id nullFlavor="NA" /> <code codeSystem ="local" code="100.0300" displayName="HGB - HEMOGLOBIN& quot; /> <statusCode code="completed" /> < effectiveTime value="857328107120" /> <value unit=&quot ;GM/DL" xsi:type="PQ" value="13.7" /> < referenceRange> <observationRange> <text> 12-16</text> </observationRange> </ referenceRange> </observation> </component> < component> <observation moodCode="EVN" classCode=" OBS"> <templateId root="2.16.840.1.079202.10.20.22.4.2& quot; /> <id nullFlavor="NA" /> <code codeSystem="local" code="100.0400" displayName="HCT - HEMATOCRIT" /> <statusCode code="completed" /> <effectiveTime value="397839817887" /> < value unit="%" xsi:type="PQ" value="40.8" /> <referenceRange> <observationRange> <text>36-46</text> </observationRange></ referenceRange> </observation> </component> < component> <observation moodCode="EVN" classCode="OBS& quot;> <templateId root="2.16.840.1.769019.10.20.22.4.2&quot ; /> <id nullFlavor="NA" /> <code codeSystem="local" code="100.0550" displayName="MEAN CORPUSCULAR VOLUME" /> <statusCode code="completed&quot ; /> <effectiveTime value="085900994845" /> <value unit="UM3" xsi:type="PQ" value="83.1" /> <referenceRange> <observationRange> <text>80-100</text> </observationRange> </referenceRange> </observation> </component& gt; <component><observation moodCode="EVN" classCode=& quot;OBS"> <templateId root=" 2.16.840.1.687102.10..22.4.2" /> <id nullFlavor="NA& quot; /> <code codeSystem="local" code="100.0600" displayName="MEAN CORPUSCULAR HGB" /> <statusCode code= "completed" /> <effectiveTime value="066515094709& quot; /> <value unit="UUG" xsi:type="PQ" value="27.9" /> <referenceRange> < observationRange> <text>26-34</text> </ observationRange> </referenceRange> </observation&gt ; </component> <component> <observation moodCode ="EVN" classCode="OBS"> <templateId root=& quot;2.16.840.1.573302.10.20.22.4.2" /> <id nullFlavor=&quot ;NA" /> <code codeSystem="local" code=" 100.0650" displayName="MEAN CORPUSCULAR HGB CONC(MCHC" /> <statusCode code="completed" /> < effectiveTime value="944149938910" /> <value unit=&quot ;GM/DL" xsi:type="PQ" value="33.6" /> < referenceRange> <observationRange> <text> 31-37</text> </observationRange> </ referenceRange> </observation> </component> < component> <observation moodCode="EVN" classCode=" OBS"> <templateId root="2.16.840.1.272401.10.20.22.4.2& quot; /> <id nullFlavor="NA" /> <code codeSystem="local" code="100.0750" displayName="RDW STANDARD DEVIATION" /> <statusCode code="completed&quot ; /> <effectiveTime value="136084386997" /> <value unit="FL" xsi:type="PQ" value="41.8" / > <referenceRange> <observationRange> &lt ;text>36.9-50.2</text> </observationRange> & lt;/referenceRange> </observation> </component> <component> <observation moodCode="EVN" classCode=& quot;OBS"> <templateId root=" 2.16.840.1.570574.10.20.22.4.2" /> <id nullFlavor="NA& quot; /> <code codeSystem="local" code="100.0850& quot; displayName="PLT - PLATELET COUNT" /> < statusCode code="completed" /> <effectiveTime value=& quot;644959064020" /> <value unit="T/MM3" xsi:type ="PQ" value="358" /> <referenceRange> <observationRange> <text>130-400</text> &lt ;/observationRange> </referenceRange> </observation& gt; </component> <component> < observationmoodCode="EVN" classCode="OBS"> < templateId root="2.16.840.1.542977.10.20.22.4.2" /> < id nullFlavor="NA" /> <code codeSystem="local&quot ; code="100.0950" displayName="MEAN PLATELET VOLUME" /> <statusCode code="completed" /> < effectiveTime value="043486382951" /> <value unit=&quot ;UM3" xsi:type="PQ" value="9.0" /> < interpretationCode codeSystem="local" code="*" /> & lt;referenceRange> <observationRange> <text& gt;9.4-12.4</text> </observationRange> </ referenceRange> </observation> </component> < component> <observation moodCode="EVN" classCode=" OBS"> <templateId root="2.16.840.1.541454.10.20.22.4.2& quot; /> <id nullFlavor="NA" /> <code codeSystem="local" code="100.1050" displayName=" NEUTROPHILS % (AUTO)" /> <statusCode code=" completed" /> <effectiveTime value="071256099424" /> <value unit="%" xsi:type="PQ" value="63.8"/> <referenceRange> < observationRange> <text>33-66</text> < /observationRange> </referenceRange> </observation& gt; </component> <component> <observation moodCode="EVN" classCode="OBS"> <templateId root="2.16.840.1.095123.10.20.22.4.2" /> <id nullFlavor ="NA" /> <code codeSystem="local" code=" 100.1100" displayName="LYMPHOCYTES % (AUTO)" /> < statusCode code="completed" /> <effectiveTime value=& quot;085143013223" /> <value unit="%" xsi: type="PQ" value="19.7" /> < interpretationCode codeSystem="local" code="*" /> &lt ;referenceRange> <observationRange> <text&gt ;23-45</text> </observationRange> </ referenceRange> </observation> </component> < component> <observation moodCode="EVN" classCode=" OBS"> <templateId root="2.16.840.1.665869.10.20.22.4.2& quot; /> <id nullFlavor="NA" /> <code codeSystem="local" code="100.1150" displayName=" MONOCYTES % (AUTO)" /> <statusCode code=" completed" /> <effectiveTime value="122870452337" /> <value unit="%" xsi:type="PQ" value="4.7" /> <referenceRange> < observationRange> <text>0-9.0</text> < /observationRange> </referenceRange> </observation& gt; </component> <component> <observation moodCode="EVN"classCode="OBS"> <templateId root="2.16.840.1.507112.10.20.22.4.2" /> <id nullFlavor ="NA" /> <code codeSystem="local" code=" 100.1200" displayName="EOSINOPHILS % (AUTO)" /> <statusCode code="completed" /> <effectiveTime value="387766209847" /> <value unit="%& quot; xsi:type="PQ" value="11.2" /> < interpretationCode codeSystem="local" code="*" /> <referenceRange> <observationRange> < text>0-4</text> </observationRange> </ referenceRange> </observation> </component> < component> <observation moodCode="EVN" classCode=" OBS"> <templateId root="2.16.840.1.081855.10.20.22.4.2& quot; /> <id nullFlavor="NA" /> <code codeSystem="local" code="100.1250" displayName=" BASOPHILS % (AUTO)" /> <statusCode code=" completed" /> <effectiveTime value="302427865895" /><value unit="%" xsi:type="PQ" value=" 0.3" /> <referenceRange> <observationRange& gt; <text>0-2</text> </observationRange> </referenceRange> </observation> </component > <component> <observation moodCode="EVN" classCode="OBS"> <templateId root=" 2.16.840.1.232145.10.20.22.4.2" /> <id nullFlavor="NA" / > <code codeSystem="local" code="100.1275" displayName="IMMATURE GRANULOCYTE % (AUTO)" /> &lt ;statusCode code="completed" /> <effectiveTime value=& quot;[id number]" /> <value unit="%" xsi: type="PQ" value="0.3" /> <referenceRange> <observationRange> <text>0.0-0.5</text&gt ; </observationRange> </referenceRange> & lt;/observation> </component> <component> < observation moodCode="EVN" classCode="OBS"> < templateId root="[id number]" /> < id nullFlavor="NA" /> <code codeSystem="local&quot ; code="100.1300" displayName="NEUTROPHILS # (AUTO)" /> <statusCode code="completed" /> < effectiveTime value="782001727890" /> <value unit=" T/MM3" xsi:type="PQ" value="7.7" /> < referenceRange> <observationRange> <text> 1.8-7.7</text> </observationRange> </ referenceRange> </observation> </component> < component> <observation moodCode="EVN" classCode=" OBS"> <templateId root="2.16.840.1.885692.10.20.22.4.2& quot; /> <id nullFlavor="NA" /> <code codeSystem="local" code="100.1350" displayName=" LYMPHOCYTES # (AUTO)" /> <statusCode code="completed& quot; /> <effectiveTime value="372041760407" /> & lt;value unit="T/MM3" xsi:type="PQ" value="2.4" /& gt; <referenceRange> <observationRange> <text>1-4.8</text> </observationRange> </referenceRange> </observation></component> < component> <observation moodCode="EVN" classCode=" OBS"> <templateId root="2.16.840.1.082949.10.20.22.4.2& quot; /> <id nullFlavor="NA" /> <code codeSystem="local" code="100.1400" displayName=" MONOCYTES # (AUTO)" /> <statusCode code="completed&quot ; /> <effectiveTime value="783197357364" /> <value unit="T/MM3" xsi:type="PQ" value="0.6&quot ; /> <referenceRange> <observationRange> <text>0-0.8</text> </observationRange> </referenceRange> </observation> </component& gt; <component> <observation moodCode="EVN" classCode="OBS"> <templateId root=" 2.16.840.1.448557.10.20.22.4.2" /> <id nullFlavor="NA& quot; /> <code codeSystem="local" code="100.1450& quot; displayName="EOSINOPHILS # (AUTO)" /> < statusCode code="completed" /> <effectiveTime value=& quot;348318193685" /> <value unit="T/MM3" xsi:type ="PQ" value="1.4" /> <interpretationCode codeSystem="local" code="*" /> < referenceRange> <observationRange> <text> 0-0.5</text> </observationRange> </ referenceRange> </observation> </component> < component> <observation moodCode="EVN" classCode=" OBS"> <templateId root="2.16.840.1.778613.10..22.4.2& quot; /> <id nullFlavor="NA" /> <code codeSystem="local" code="100.1500" displayName=" BASOPHILS # (AUTO)" /> <statusCode code="completed&quot ; /> <effectiveTime value="518210070105" /> <value unit="T/MM3" xsi:type="PQ" value="0.0&quot ; /> <referenceRange> <observationRange> <text>0-0.2</text> </observationRange> & lt;/referenceRange> </observation> </component> <component> <observation moodCode="EVN" classCode=" OBS"> <templateIdroot="2.16.840.1.270311.10.20.22.4.2& quot; /> <id nullFlavor="NA" /> <code codeSystem="local" code="100.1525" displayName=" IMMATUREGRANULOCYTE # (AUTO)" /> <statusCode code=" completed" /> <effectiveTime value="361638092352" /> <value unit="T/MM3" xsi:type="PQ" value=& quot;0.04" /> <interpretationCode codeSystem="local& quot; code="*" /> <referenceRange> < observationRange> <text>0.00-0.03</text> & lt;/observationRange> </referenceRange> </ observation> </component> </organizer> </entry> & lt;entry> <organizer moodCode="EVN" classCode="BATTERY& quot;><templateId root="2.16.840.1.585475.10.20.22.4.1" /> <id nullFlavor="NA" /> <code codeSystem="local& quot; code="LCMP" displayName="L200.0020" /> < statusCode code="completed" /> <component> < observation moodCode="EVN" classCode="OBS"> < templateId root="2.16.840.1.135654.10.20.22.4.2" /> < id nullFlavor="NA" /> <code codeSystem="local" code=& quot;300.0400" displayName="FUNGAL CULTURE." /> < statusCode code="completed" /> <effectiveTime value=& quot;540302284218" /> <value unit="MG/DL" xsi:type ="PQ" value="1.2" /> <referenceRange> <observationRange> <text>0.7-1.2</text> </observationRange> </referenceRange> </ observation> </component> <component> < observation moodCode="EVN" classCode="OBS"> < templateId root="2.16.840.1.646764.10.20.22.4.2" /> < id nullFlavor="NA" /> <codecodeSystem="local&quot ; code="300.0450" displayName="FUNGAL CULTURE, BLOOD." /&gt ; <statusCode code="completed" /> < effectiveTime value="429977494665" /> <value unit=&quot ;RATIO" xsi:type="PQ" value="8" /> < referenceRange> <observationRange> <text> 6-26</text> </observationRange> </ referenceRange> </observation> </component> < component> <observation moodCode="EVN" classCode=" OBS"> <templateId root="2.16.840.1.803328.10.20.22.4.2& quot; /> <id nullFlavor="NA" /> <code codeSystem="local" code="300.0100" displayName="NA - Sodium" /> <statusCode code="completed" /> <effectiveTime value="329468697031" /> <value unit="MEQ/L" xsi:type="PQ" value="143" /> <referenceRange> <observationRange> < text>134-144</text> </observationRange> </ referenceRange> </observation> </component> < component> <observation moodCode="EVN" classCode=" OBS"> <templateId root="2.16.840.1.630128.10.20.22.4.2& quot; /> <id nullFlavor="NA" /> <code codeSystem="local" code="300.0150" displayName=" Potassium" /> <statusCode code="completed" /> <effectiveTime value="310880777761" /> < value unit="MEQ/L" xsi:type="PQ" value="3.9" /&gt ; <referenceRange> <observationRange> <text>3.6-5</text> </observationRange> </ referenceRange> </observation> </component> < component> <observation moodCode="EVN" classCode=" OBS"> <templateId root="2.16.840.1.222532.10.20.22.4.2& quot; /> <id nullFlavor="NA" /> <code codeSystem= "local" code="300.0200" displayName="Chloride" /& gt; <statusCode code="completed" /> < effectiveTime value="064074029146" /> <value unit=&quot ;MEQ/L" xsi:type="PQ" value="104" /> < referenceRange> <observationRange> <text>98-107 </text> </observationRange> </referenceRange& gt; </observation> </component> <component> <observation moodCode="EVN" classCode="OBS"> &lt ;templateId root="2.16.840.1.267531.10.20.22.4.2" /> < id nullFlavor="NA" /> <code codeSystem="local&quot ; code="300.0250" displayName="CO2 - Carbon Dioxide" /> <statusCode code="completed" /> < effectiveTime value="554706777310" /> <value unit=&quot ;MEQ/L" xsi:type="PQ" value="26" /> < referenceRange> <observationRange> <text> 22-30</text> </observationRange> </ referenceRange> </observation> </component> < component> <observation moodCode="EVN" classCode=" OBS"> <templateId root="2.16.840.1.499473.10.20.22.4.2& quot; /> <id nullFlavor="NA" /> <code codeSystem="local" code="300.0300" displayName="Anion Gap" /> <statusCode code="completed" /> <effectiveTime value="128180107999" /> <value unit="MEQ/L" xsi:type="PQ" value="13" /> <referenceRange> <observationRange> < text>5-15</text> </observationRange> </ referenceRange> </observation> </component> < component> <observation moodCode="EVN" classCode=" OBS"> <templateId root="2.16.840.1.196426.10.20.22.4.2& quot; /> <id nullFlavor="NA" /><code codeSystem=& quot;local" code="300.0350" displayName="BUN - Blood Urea Nitrogen" /> <statusCode code="completed" /> <effectiveTime value="675599397137" /> < value unit="MG/DL" xsi:type="PQ" value="10.0" /&gt ; <referenceRange> <observationRange> <text>7-17</text> </observationRange> & lt;/referenceRange> </observation> </component> <component> <observation moodCode="EVN" classCode=& quot;OBS"> <templateId root=" 2.16.840.1.545579.10.20.22.4.2" /> <id nullFlavor="NA& quot; /> <code codeSystem="local" code="300.0410& quot; displayName="Glomerular FiltrationRate" /> < statusCode code="completed" /> <effectiveTimevalue=& quot;100253413253" /> <value unit="" xsi:type=& quot;PQ" value="53" /> <referenceRange> <observationRange> <text>NRG</text> </ observationRange> </referenceRange> </observation&gt ; </component> <component> <observation moodCode ="EVN" classCode="OBS"> <templateId root=& quot;2.16.840.1.248843.10.20.22.4.2" /> <id nullFlavor=&quot ;NA" /> <code codeSystem="local" code=" 300.0500" displayName="Glucose" /> <statusCode code="completed" /> <effectiveTime value=" 062677201117" /> <value unit="MG/DL" xsi:type=& quot;PQ" value="106" /> <referenceRange> <observationRange> <text>65-110</text> </observationRange> </referenceRange> </ observation> </component> <component> < observation moodCode="EVN" classCode="OBS"> < templateId root="2.16.840.1.653629.10.20.22.4.2" /> < id nullFlavor="NA" /> <code codeSystem="local&quot ; code="300.2000" displayName="Osmolality,Calculated" /> <statusCode code="completed" /> < effectiveTime value="429483312214" /> <value unit=&quot ;MOSM/KG" xsi:type="PQ" value="274" /> < referenceRange> <observationRange> <text> 261-280</text> </observationRange> </ referenceRange> </observation> </component> < component> <observation moodCode="EVN" classCode=" OBS"> <templateId root="2.16.840.1.002331.10.20.22.4.2& quot; /> <id nullFlavor="NA" /> <code codeSystem="local" code="300.2200" displayName="Calcium " /> <statusCode code="completed" /> & lt;effectiveTime value="641807070400" /> <value unit=& quot;MG/DL" xsi:type="PQ" value="9.7" /> & lt;referenceRange> <observationRange> <text& gt;8.4-10.2</text> </observationRange> </ referenceRange> </observation> </component> < component> <observation moodCode="EVN" classCode=" OBS"> <templateId root="2.16.840.1.519148.10.20.22.4.2& quot; /> <id nullFlavor="NA" /> <code codeSystem="local" code="300.2700" displayName=" Bilirubin,Total" /> <statusCode code="completed" / > <effectiveTime value="564965606969" /> & lt;value unit="MG/DL" xsi:type="PQ" value="0.90" / > <referenceRange> <observationRange> <text>0.20-1.30</text> </observationRange> </referenceRange> </observation> </component > <component> <observation moodCode="EVN" classCode="OBS"> <templateId root=" 2.16.840.1.364068.10.20.22.4.2" /> <id nullFlavor="NA& quot; /> <code codeSystem="local" code="300.2975& quot; displayName="Alkaline Phosphatase" /> < statusCode code="completed" /> <effectiveTime value=& quot;352423352333" /> <value unit="U/L" xsi:type=& quot;PQ" value="88" /> <referenceRange> &lt ;observationRange> <text>38-126</text> & lt;/observationRange> </referenceRange> </ observation> </component><component> <observation moodCode="EVN" classCode="OBS"> <templateId root=& quot;2.16.840.1.690756.10.20.22.4.2" /> <id nullFlavor=&quot ;NA" /> <code codeSystem="local" code=" 300.3050" displayName="AST - Aspartate Amino Transfer" /> <statusCode code="completed" /> < effectiveTime value="605206063354" /> <value unit=&quot ;U/L" xsi:type="PQ" value="19" /> < referenceRange> <observationRange> <text>14-36& lt;/text> </observationRange> </referenceRange& gt; </observation> </component> <component> <observation moodCode="EVN" classCode="OBS"> <templateId root="2.16.840.1.242986.10.20.22.4.2" /> & lt;id nullFlavor="NA" /> <code codeSystem="local& quot; code="300.3100" displayName="ALT" /> < statusCode code="completed" /> <effectiveTime value=& quot;630458987695" /> <value unit="U/L" xsi:type=& quot;PQ" value="38" /> <referenceRange> <observationRange> <text>9-52</text> </observationRange> </referenceRange> </ observation> </component> <component> < observation moodCode="EVN" classCode="OBS"> < templateId root="2.16.840.1.734098.10.20.22.4.2" /> < id nullFlavor="NA" /> <code codeSystem="local&quot ; code="300.3110" displayName="TP - Total Protein" /> <statusCode code="completed" /> < effectiveTime value="267721823685" /> <value unit=&quot ;G/DL" xsi:type="PQ" value="7.3" /> < referenceRange> <observationRange> <text>6.3-8.2< /text> </observationRange> </referenceRange> </observation> </component> <component> <observation moodCode="EVN" classCode="OBS"> <templateId root="2.16.840.1.932859.10.20.22.4.2" /> <id nullFlavor="NA" /> <code codeSystem=" local" code="300.3120" displayName="Albumin Level" /&gt ; <statusCode code="completed" /> < effectiveTime value="898778948731" /> <value unit=&quot ;G/DL" xsi:type="PQ" value="4.5" /> < referenceRange> <observationRange> <text> 3.5-5.0</text> </observationRange> </ referenceRange> </observation> </component> < component> <observation moodCode="EVN" classCode=" OBS"> <templateId root="2.16.840.1.934921.10.20.22.4.2& quot; /> <id nullFlavor="NA" /> <code codeSystem="local" code="300.3130" displayName=" Globulin" /> <statusCode code="completed" /> <effectiveTime value="491574683686" /> <value unit="G/DL" xsi:type="PQ" value="2.8" /> <referenceRange> <observationRange> < text>2.4-3.6</text> </observationRange> </ referenceRange> </observation> </component> < component> <observation moodCode="EVN" classCode=" OBS"> <templateId root="2.16.840.1.745617.10.20.22.4.2& quot; /> <id nullFlavor="NA" /> <code codeSystem="local" code="300.3140" displayName="Albumin /Globulin Ratio" /> <statusCode code="completed" / > <effectiveTime value="575121813965" /> <value unit="RATIO" xsi:type="PQ" value="1.6" /> <referenceRange> <observationRange> &lt ;text>1.1-2.2</text> </observationRange> </ referenceRange> </observation> </component> < component> <observation moodCode="EVN" classCode=" OBS"> <templateId root="2.16.840.1.274059.10.20.22.4.2& quot; /> <id nullFlavor="NA" /> <code codeSystem="local" code="300.0095" displayName=" LICTERUS" /> <statusCode code="completed" /> <effectiveTime value="348245195140" /> < value unit="" xsi:type="PQ" value="< 2" /& gt; <referenceRange> <observationRange> <text>0-7</text> </observationRange> </referenceRange> </observation> </component> <component> <observation moodCode="EVN" classCode=& quot;OBS"> <templateId root=" 2.16.840.1.379031.10..22.4.2" /> <id nullFlavor="NA& quot; /> <code codeSystem="local" code="300.0096& quot; displayName="LHEMOLYSIS" /> <statusCode code=& quot;completed" /> <effectiveTime value="242675550538" /& gt; <value unit="" xsi:type="PQ" value="& amp;lt; 15" /> <referenceRange> < observationRange> <text>0-25</text> </ observationRange> </referenceRange> </observation&gt ; </component> <component> <observation moodCode ="EVN" classCode="OBS"> <templateId root=& quot;2.16.840.1.697941.10.20.22.4.2" /> <id nullFlavor=&quot ;NA" /> <code codeSystem="local" code=" 300.0097" displayName="LTURBIDITY" /> <statusCode code="completed" /> <effectiveTime value=" 554716444197" /> <value unit="" xsi:type="PQ& quot; value="< 20" /> <referenceRange> <observationRange> <text>0-20</text> </observationRange> </referenceRange> </ observation> </component> </organizer> </entry> & lt;entry> <organizer moodCode="EVN" classCode="BATTERY& quot;> <templateId root="2.16.840.1.353301.10.20.22.4.1" /> <id nullFlavor="NA" /> <code codeSystem="local " code="LMAG" displayName="L200.2000" /> < statusCode code="completed" /> <component> < observation moodCode="EVN" classCode="OBS"> < templateId root="2.16.840.1.834646.10.20.22.4.2" /> < id nullFlavor="NA" /> <code codeSystem="local" code= "300.2350" displayName="MAG - Magnesium" /> < statusCode code="completed" /> <effectiveTime value=& quot;736640689578" /> <value unit="MG/DL" xsi:type ="PQ" value="1.9" /> <referenceRange> <observationRange> <text>1.6-2.3</text> </observationRange> </referenceRange> </ observation> </component> </organizer> </entry> & lt;entry> <organizer moodCode="EVN" classCode="BATTERY& quot;> <templateId root="2.16.840.1.133789.10.20.22.4.1" /& gt; <id nullFlavor="NA" /> <code codeSystem=" local" code="LLDH" displayName="L200.1855" /> & lt;statusCode code="completed" /> <component> &lt ;observation moodCode="EVN" classCode="OBS"> &lt ;templateId root="2.16.840.1.893426.10.20.22.4.2" /> < id nullFlavor="NA" /> <code codeSystem="local&quot ; code="300.3250" displayName="LDH - Lactate Dehydrogenase" /> <statusCode code="completed" /> < effectiveTime value="510056799652" /> <value unit=&quot ;U/L" xsi:type="PQ" value="388" /> < referenceRange> <observationRange> <text>313618& lt;/text> </observationRange> </referenceRange& gt; </observation> </component> </organizer> & lt;/entry> <entry> <organizer moodCode="EVN" classCode ="BATTERY"> <templateId root=" 2.16.840.1.919570.10.20.22.4.1" /> <id nullFlavor="NA&quot ; /> <code codeSystem="local" code="LPHOS" displayName="L200.0630" /> <statusCode code="completed " /> <component> <observation moodCode="EVN& quot; classCode="OBS"> <templateId root=" 2.16.840.1.068446.10.20.22.4.2" /> <id nullFlavor="NA& quot; /> <code codeSystem="local" code="300.2300& quot; displayName="Phosphorus" /> <statusCode code=" completed" /> <effectiveTime value="318091273784" /> <value unit="MG/DL" xsi:type="PQ" value=& quot;3.6" /> <referenceRange> < observationRange> <text>2.5-4.5</text> & lt;/observationRange> </referenceRange></observation> </component> </organizer> </entry> <entry>< organizer moodCode="EVN" classCode="BATTERY"> < templateId root="2.16.840.1.656491.10.20.22.4.1" /> <id nullFlavor="NA" /> <code codeSystem="local" code= "LCBC" displayName="L100.0050" /> <statusCode code="completed" /> <component> <observation moodCode="EVN" classCode="OBS"> <templateId root="2.16.840.1.010163.10.20.22.4.2" /> <id nullFlavor ="NA" /> <code codeSystem="local" code=" 100.0150" displayName="WBC - WHITE BLOOD COUNT" /> < statusCode code="completed" /> <effectiveTime value=& quot;855684445799" /> <value unit="T/MM3" xsi:type ="PQ" value="14.5" /> <interpretationCode codeSystem="local" code="*" /> <referenceRange> <observationRange> <text>4.5-11.0</text& gt; </observationRange> </referenceRange> </observation> </component> <component> &lt ;observation moodCode="EVN"classCode="OBS"> < templateId root="2.16.840.1.487364.10.20.22.4.2" /> < id nullFlavor="NA" /> <code codeSystem="local&quot ; code="100.0250" displayName="RED BLOOD COUNT" /> <statusCode code="completed" /> <effectiveTime value="021548877493" /> <value unit="M/MM3" xsi:type=& quot;PQ" value="4.87" /> <referenceRange> <observationRange> <text>4.00-5.20</text> </observationRange> </referenceRange> & lt;/observation> </component> <component> < observation moodCode="EVN" classCode="OBS"> < templateId root="2.16.840.1.518924.10.20.22.4.2" /> <id nullFlavor="NA" /> <code codeSystem="local" code="100.0300" displayName="HGB - HEMOGLOBIN" /> <statusCode code="completed" /> <effectiveTime value="124571339018" /> <value unit="GM/DL" xsi:type="PQ" value="13.5" /> <referenceRange > <observationRange> <text>12-16</text > </observationRange> </referenceRange> </ observation> </component> <component> < observation moodCode="EVN" classCode="OBS"> < templateId root="2.16.840.1.713301.10.20.22.4.2" /> < id nullFlavor="NA" /> <code codeSystem="local&quot ; code="100.0400" displayName="HCT - HEMATOCRIT" /> <statusCode code="completed" /> <effectiveTime value="324482385310" /> <value unit="%& quot; xsi:type="PQ" value="40.3" /> < referenceRange> <observationRange> <text> 36-46</text> </observationRange> </ referenceRange> </observation> </component> < component> <observation moodCode="EVN" classCode=" OBS"> <templateId root="2.16.840.1.445066.10.20.22.4.2& quot; /> <id nullFlavor="NA" /> <code codeSystem="local" code="100.0550" displayName="MEAN CORPUSCULAR VOLUME" /> <statusCode code="completed&quot ; /> <effectiveTime value="613932744841" /> <value unit="UM3" xsi:type="PQ" value="82.8" /> <referenceRange> <observationRange> <text>80-100</text> </observationRange> </referenceRange> </observation> </component> <component> <observation moodCode="EVN" classCode= "OBS"> <templateId root=" 2.16.840.1.397577.10..22.4.2" /> <id nullFlavor="NA& quot; /> <code codeSystem="local" code="100.0600& quot; displayName="MEAN CORPUSCULAR HGB" /> < statusCode code="completed" /> <effectiveTime value=& quot;550848698529" /> <value unit="UUG" xsi:type=& quot;PQ" value="27.7" /> <referenceRange> < observationRange> <text>26-34</text> < /observationRange> </referenceRange> </observation& gt; </component> <component> <observation moodCode="EVN" classCode="OBS"> <templateId root="2.16.840.1.319197.10..22.4.2" /> <id nullFlavor ="NA" /> <code codeSystem="local" code=" 100.0650" displayName="MEAN CORPUSCULAR HGB CONC(MCHC" /> <statusCode code="completed" /> < effectiveTime value="596949705974" /> <value unit=&quot ;GM/DL" xsi:type="PQ" value="33.5" /> < referenceRange> <observationRange> <text>31-37&lt ;/text> </observationRange> </referenceRange&gt ; </observation> </component> <component> <observation moodCode="EVN" classCode="OBS"> &lt ;templateId root="2.16.840.1.130428.10.20.22.4.2" /> < id nullFlavor="NA" /> <code codeSystem="local&quot ; code="100.0750" displayName="RDW STANDARD DEVIATION" /&gt ; <statusCode code="completed" /> < effectiveTime value="394883734949" /> <value unit=&quot ;FL" xsi:type="PQ" value="42.4" /> < referenceRange> <observationRange> <text> 36.9-50.2</text> </observationRange> </ referenceRange> </observation> </component> < component> <observation moodCode="EVN" classCode=" OBS"> <templateId root="2.16.840.1.262731.10.20.22.4.2& quot; /> <id nullFlavor="NA" /> <code codeSystem="local" code="100.0850" displayName="PLT - PLATELET COUNT" /> <statusCode code="completed" /& gt; <effectiveTime value="624439121754" /> <value unit="T/MM3" xsi:type="PQ" value="320" /> <referenceRange> <observationRange> &lt ;text>130-400</text> </observationRange> </ referenceRange> </observation> </component> < component> <observation moodCode="EVN" classCode=" OBS"> <templateId root="2.16.840.1.335874.10.20.22.4.2& quot; /> <id nullFlavor="NA" /> <code codeSystem="local" code="100.0950" displayName="MEAN PLATELET VOLUME" /> <statusCode code="completed" / > <effectiveTime value="358951645537" /> & lt;value unit="UM3" xsi:type="PQ" value="9.3" /&gt ; <interpretationCode codeSystem="local" code="*&quot ; /> <referenceRange> <observationRange> <text>9.4-12.4</text> </observationRange> </referenceRange> </observation> </component> <component> <observation moodCode="EVN" classCode="OBS"> <templateId root=" 2.16.840.1.011507.10.20.22.4.2" /> <id nullFlavor="NA& quot; /> <code codeSystem="local" code="100.1050& quot; displayName="NEUTROPHILS % (AUTO)" /> < statusCode code="completed" /> <effectiveTimevalue=& quot;910727436274" /> <value unit="%" xsi: type="PQ" value="67.7" /> < interpretationCode codeSystem="local" code="*" /> <referenceRange> <observationRange><text>33-66& lt;/text> </observationRange> </referenceRange& gt; </observation> </component> <component> <observation moodCode="EVN" classCode="OBS"> <templateId root="2.16.840.1.915259.10.20.22.4.2" /> <id nullFlavor="NA" /> <code codeSystem=" local" code="100.1100" displayName="LYMPHOCYTES % ( AUTO)" /> <statusCode code="completed" /> <effectiveTime value="790203883024" /> <value unit="%" xsi:type="PQ" value="19.7" /> <interpretationCode codeSystem="local" code="*&quot ; /> <referenceRange> <observationRange> <text>23-45</text> </observationRange> </referenceRange> </observation> </component& gt; <component> <observation moodCode="EVN" classCode="OBS"> <templateId root=" 2.16.840.1.121891.10.20.22.4.2" /> <id nullFlavor="NA& quot; /> <code codeSystem="local" code="100.1150& quot; displayName="MONOCYTES % (AUTO)" /> < statusCode code="completed" /> <effectiveTime value=& quot;654579956082" /> <value unit="%" xsi: type="PQ" value="6.1" /> <referenceRange> <observationRange> <text>0-9.0</text&gt ; </observationRange> </referenceRange> & lt;/observation> </component> <component> < observation moodCode="EVN" classCode="OBS"> < templateId root="2.16.840.1.542784.10.20.22.4.2" /> < id nullFlavor="NA" /> <code codeSystem="local&quot ; code="100.1200" displayName="EOSINOPHILS % (AUTO)&quot ; /> <statusCode code="completed" /> < effectiveTime value="358471291408" /> <value unit=&quot ;%" xsi:type="PQ" value="5.9" /> & lt;interpretationCode codeSystem="local" code="*" /> <referenceRange> <observationRange> & lt;text>0-4</text> </observationRange> </ referenceRange> </observation> </component> < component> <observation moodCode="EVN" classCode=" OBS"> <templateId root="[id number]& quot; /> <id nullFlavor="NA" /> <code codeSystem="local" code="100.1250" displayName=" BASOPHILS % (AUTO)" /> <statusCode code=" completed" /> <effectiveTime value="[id number]" /> <value unit="%" xsi:type="PQ" value="0.3" /> <referenceRange> < observationRange> <text>0-2</text> </ observationRange> </referenceRange> </observation&gt ; </component> <component> <observation moodCode ="EVN" classCode="OBS"> <templateId root=& quot;[id number]" /> <id nullFlavor=&quot ;NA" /> <code codeSystem="local" code=" 100.1275" displayName="IMMATURE GRANULOCYTE % (AUTO)" /& gt; <statusCode code="completed" /> < effectiveTime value="[id number]" /> <value unit=&quot ;%" xsi:type="PQ" value="0.3" /> & lt;referenceRange> <observationRange> <text& gt;0.0-0.5</text> </observationRange> </ referenceRange> </observation> </component> < component> <observation moodCode="EVN" classCode=" OBS"> <templateId root="2.16.840.1.353848.10.20.22.4.2& quot; /> <id nullFlavor="NA" /> <code codeSystem="local" code="100.1300" displayName=" NEUTROPHILS # (AUTO)" /> <statusCode code="completed" /&gt ; <effectiveTime value="002434713658" /> < value unit="T/MM3" xsi:type="PQ" value="9.8"/> <interpretationCode codeSystem="local" code="*&quot ; /><referenceRange> <observationRange> & lt;text>1.8-7.7</text> </observationRange> & lt;/referenceRange> </observation> </component> <component> <observation moodCode="EVN" classCode=& quot;OBS"> <templateId root=" 2.16.840.1.004612.10.20.22.4.2" /> <id nullFlavor="NA& quot; /> <code codeSystem="local" code="100.1350& quot; displayName="LYMPHOCYTES # (AUTO)" /> < statusCode code="completed" /> <effectiveTime value=& quot;046457731988" /> <value unit="T/MM3" xsi:type="PQ " value="2.9" /> <referenceRange> & lt;observationRange> <text>1-4.8</text> </ observationRange> </referenceRange> </observation&gt ; </component> <component> <observation moodCode ="EVN" classCode="OBS"> <templateId root=& quot;2.16.840.1.421673.10.20.22.4.2" /> <id nullFlavor="NA& quot; /> <code codeSystem="local" code="100.1400& quot; displayName="MONOCYTES # (AUTO)" /> <statusCode code="completed" /> <effectiveTime value=" 896244505740" /> <value unit="T/MM3" xsi:type=& quot;PQ" value="0.9" /> <interpretationCode codeSystem="local" code="*" /> < referenceRange> <observationRange> <text>0-0.8< /text> </observationRange> </referenceRange> </observation> </component> <component> <observation moodCode="EVN" classCode="OBS"> < templateId root="2.16.840.1.202821.10.20.22.4.2" /> < id nullFlavor="NA" /> <code codeSystem="local&quot ; code="100.1450" displayName="EOSINOPHILS # (AUTO)" /> <statusCode code="completed" /> <effectiveTime value="176493834560" /> <value unit="T/MM3" xsi:type="PQ" value="0.9" /> < interpretationCode codeSystem="local" code="*" /> <referenceRange> <observationRange> < text>0-0.5</text> </observationRange> </ referenceRange> </observation> </component> < component> <observation moodCode="EVN" classCode=" OBS"> <templateId root="2.16.840.1.994307.10.20.22.4.2& quot; /> <id nullFlavor="NA" /> <code codeSystem="local" code="100.1500" displayName=" BASOPHILS # (AUTO)" /> <statusCode code="completed&quot ; /> <effectiveTime value="921908931318" /> <value unit="T/MM3" xsi:type="PQ"value="0.0" /> <referenceRange> <observationRange> <text>0-0.2</text> </observationRange> & lt;/referenceRange> </observation> </component> <component> <observation moodCode="EVN" classCode=& quot;OBS"> <templateId root=" 2.16.840.1.071213.10.20.22.4.2" /> <id nullFlavor="NA& quot; /> <code codeSystem="local" code="100.1525& quot; displayName="IMMATURE GRANULOCYTE # (AUTO)" /> < statusCode code="completed" /> <effectiveTime value=& quot;075464360380" /> <value unit="T/MM3" xsi:type ="PQ" value="0.04" /> <interpretationCode codeSystem="local" code="*" /> < referenceRange> <observationRange> <text> 0.00-0.03</text> </observationRange> </ referenceRange> </observation> </component> </ organizer> </entry> <entry> <organizer moodCode="EVN " classCode="BATTERY"> <templateId root=" 2.16.840.1.228034.10.20.22.4.1" /> <id nullFlavor="NA&quot ; /><code codeSystem="local" code="LCMP" displayName=& quot;L200.0020" /> <statusCode code="completed" /> <component> <observation moodCode="EVN" classCode= "OBS"> <templateId root=" 2.16.840.1.491513.10.20.22.4.2" /> <id nullFlavor="NA& quot; /> <code codeSystem="local" code="300.0400& quot; displayName="FUNGAL CULTURE." /> <statusCode code=" completed" /> <effectiveTime value="284958056041" /> <value unit="MG/DL" xsi:type="PQ" value=& quot;1.2" /> <referenceRange> < observationRange> <text>0.7-1.2</text> & lt;/observationRange> </referenceRange> </ observation> </component> <component> < observation moodCode="EVN" classCode="OBS"> < templateId root="2.16.840.1.730424.10.20.22.4.2" /> < id nullFlavor="NA" /> <code codeSystem="local&quot ; code="300.0450" displayName="FUNGAL CULTURE, BLOOD." /&gt ; <statusCode code="completed" /> < effectiveTime value="149357417325" /> <value unit=&quot ;RATIO" xsi:type="PQ" value="13" /> < referenceRange> <observationRange> <text> 6-26</text> </observationRange> </ referenceRange> </observation> </component> < component> <observation moodCode="EVN" classCode=" OBS"> <templateId root="2.16.840.1.352966.10.20.22.4.2& quot; /> <id nullFlavor="NA" /> <code codeSystem="local" code="300.0100" displayName="NA - Sodium" /> <statusCode code="completed" /> <effectiveTime value="228112810754" /><value unit=&quot ;MEQ/L" xsi:type="PQ" value="142" /> < referenceRange> <observationRange> <text> 134-144</text> </observationRange> </ referenceRange> </observation> </component> < component> <observation moodCode="EVN" classCode=" OBS"> <templateId root="2.16.840.1.812336.10.20.22.4.2& quot; /> <id nullFlavor="NA" /> <code codeSystem="local" code="300.0150" displayName=" Potassium" /> <statusCode code="completed" /> <effectiveTime value="136559406509" /> < value unit="MEQ/L" xsi:type="PQ" value="3.6" /&gt ; <referenceRange> <observationRange> <text>3.6-5</text> </observationRange> & lt;/referenceRange> </observation> </component> & lt;component> <observation moodCode="EVN" classCode=&quot ;OBS"> <templateId root="2.16.840.1.538072.10.20.22.4.2& quot; /> <id nullFlavor="NA" /> <code codeSystem="local" code="300.0200" displayName=" Chloride" /> <statusCode code="completed" />&lt ;effectiveTime value="942477842617" /> <value unit=& quot;MEQ/L" xsi:type="PQ" value="106" /> & lt;referenceRange> <observationRange> <text& gt;98-107</text> </observationRange> </ referenceRange> </observation> </component> < component> <observation moodCode="EVN" classCode=" OBS"> <templateId root="2.16.840.1.235372.10.20.22.4.2& quot; /> <id nullFlavor="NA" /> <code codeSystem="local" code="300.0250" displayName="CO2 - Carbon Dioxide" /> <statusCode code="completed" /& gt; <effectiveTime value="213077634939" /> &lt ;value unit="MEQ/L" xsi:type="PQ" value="25" /&gt ; <referenceRange> <observationRange> <text>22-30</text> </observationRange> </referenceRange> </observation> </component> <component> <observation moodCode="EVN" classCode=" OBS"> <templateId root="2.16.840.1.014572.10.20.22.4.2& quot; /> <id nullFlavor="NA" /> <code codeSystem="local" code="300.0300" displayName="Anion Gap" /> <statusCode code="completed" /> <effectiveTime value="167233669068" /> <value unit="MEQ/L" xsi:type="PQ" value="11" /> <referenceRange> <observationRange><text>5-15& lt;/text> </observationRange> </referenceRange& gt; </observation> </component> <component> <observation moodCode="EVN" classCode="OBS"> <templateId root="2.16.840.1.700220.10.20.22.4.2" /> <id nullFlavor="NA" /> <code codeSystem=" local" code="300.0350" displayName="BUN - Blood Urea Nitrogen" /> <statusCode code="completed" /> <effectiveTime value="704755963598" /> < value unit="MG/DL" xsi:type="PQ" value="15.0" /&gt ; <referenceRange> <observationRange> <text>7-17</text> </observationRange> </referenceRange> </observation> </component> < component> <observation moodCode="EVN" classCode=" OBS"> <templateId root="2.16.840.1.567648.10..22.4.2& quot; /> <id nullFlavor="NA" /> <code codeSystem="local" code="300.0410" displayName=" Glomerular Filtration Rate" /> <statusCode code=" completed" /> <effectiveTime value="315454216888" /> <value unit="" xsi:type="PQ" value=" 53" /> <referenceRange> <observationRange& gt; <text>NRG</text> </observationRange& gt; </referenceRange> </observation> </ component> <component> <observation moodCode="EVN& quot; classCode="OBS"> <templateId root=" 2.16.840.1.054467.10.20.22.4.2" /> <id nullFlavor="NA& quot; /> <code codeSystem="local" code="300.0500& quot; displayName="Glucose" /> <statusCode code=" completed" /> <effectiveTime value="781951697726" /> <value unit="MG/DL" xsi:type="PQ" value="100& quot; /> <referenceRange> <observationRange> <text>65-110</text> </observationRange> </referenceRange> </observation> </component > <component> <observation moodCode="EVN" classCode="OBS"> <templateId root=" 2.16.840.1.913584.10.20.22.4.2" /> <id nullFlavor="NA" / > <code codeSystem="local" code="300.2000" displayName="Osmolality,Calculated" /> <statusCode code ="completed" /> <effectiveTime value="291829628097 " /> <value unit="MOSM/KG" xsi:type="PQ&quot ; value="274" /> <referenceRange> < observationRange> <text>261-280</text> </ observationRange> </referenceRange> </observation&gt ; </component> <component> <observation moodCode ="EVN" classCode="OBS"> <templateId root=& quot;2.16.840.1.988939.10.20.22.4.2" /> <id nullFlavor="NA&quot ; /> <code codeSystem="local" code="300.2200&quot ; displayName="Calcium" /> <statusCode code=" completed"/> <effectiveTime value="273874616817" / > <value unit="MG/DL" xsi:type="PQ" value=& quot;9.3" /> <referenceRange> <observationRange&gt ; <text>8.4-10.2</text> </ observationRange> </referenceRange> </observation&gt ; </component> <component> <observation moodCode=& quot;EVN" classCode="OBS"> <templateId root=" 2.16.840.1.818705.10.20.22.4.2" /> <id nullFlavor="NA& quot; /> <code codeSystem="local" code="300.2700& quot; displayName="Bilirubin,Total" /> <statusCode code ="completed" /> <effectiveTime value="071426795709&quot ; /> <value unit="MG/DL" xsi:type="PQ" value= "0.70" /> <referenceRange> < observationRange> <text>0.20-1.30</text> </observationRange> </referenceRange> </ observation> </component> <component> < observation moodCode="EVN" classCode="OBS"> < templateId root="2.16.840.1.983368.10.20.22.4.2" /> < id nullFlavor="NA" /> <code codeSystem="local&quot ; code="300.2975" displayName="Alkaline Phosphatase" /> <statusCode code="completed" /> <effectiveTime value="690314439760" /> <value unit="U/L" xsi :type="PQ" value="82" /> <referenceRange> <observationRange> <text>38-126</text&gt ; </observationRange> </referenceRange> </ observation> </component> <component> < observation moodCode="EVN" classCode="OBS"> < templateId root="2.16.840.1.183878.10.20.22.4.2" /> < id nullFlavor="NA" /> <code codeSystem="local&quot ; code="300.3050" displayName="AST -Aspartate Amino Transfer&quot ; /> <statusCode code="completed" /> < effectiveTime value="680809230066" /> <value unit=&quot ;U/L" xsi:type="PQ" value="17" /> < referenceRange> <observationRange> <text> 14-36</text> </observationRange> </referenceRange&gt ; </observation> </component> <component> <observation moodCode="EVN" classCode="OBS"> <templateId root="2.16.840.1.289042.10.20.22.4.2" /> <id nullFlavor="NA" /> <code codeSystem=" local" code="300.3100" displayName="ALT" /> <statusCode code="completed" /> <effectiveTime value="039402822682" /> <value unit="U/L" xsi :type="PQ" value="37" /> <referenceRange> <observationRange> <text>9-52</text> </observationRange> </referenceRange> </ observation> </component> <component> < observation moodCode="EVN" classCode="OBS"> < templateId root="2.16.840.1.826122.10.20.22.4.2" /> < id nullFlavor="NA" /> <code codeSystem="local&quot ; code="300.3110" displayName="TP - Total Protein" /> <statusCode code="completed" /> <effectiveTime value ="121360210138" /> <value unit="G/DL" xsi: type="PQ" value="7.1" /> <referenceRange> <observationRange> <text>6.3-8.2</text& gt; </observationRange> </referenceRange> </observation> </component> <component> &lt ;observation moodCode="EVN" classCode="OBS"> &lt ;templateId root="2.16.840.1.416487.10.20.22.4.2" /> < id nullFlavor="NA" /> <code codeSystem="local&quot ; code="300.3120" displayName="Albumin Level" /> <statusCode code="completed" /> <effectiveTime value="098625793883" /> <value unit="G/DL" xsi:type="PQ" value="4.2" /> <referenceRange> <observationRange> <text>3.5-5.0</text> </observationRange> </referenceRange> &lt ;/observation> </component> <component> < observation moodCode="EVN" classCode="OBS"> < templateId root="2.16.840.1.206560.10.20.22.4.2" /> < id nullFlavor="NA" /> <code codeSystem="local&quot ; code="300.3130" displayName="Globulin" /> < statusCode code="completed" /> <effectiveTime value=& quot;894350538493" /> <value unit="G/DL" xsi:type= "PQ" value="2.9" /> <referenceRange> <observationRange> <text>2.4-3.6</text> </observationRange> </referenceRange> < /observation> </component> <component> < observation moodCode="EVN" classCode="OBS"> < templateId root="2.16.840.1.051623.10.20.22.4.2" /> < id nullFlavor="NA" /> <code codeSystem="local&quot ; code="300.3140" displayName="Albumin/Globulin Ratio" /&gt ; <statusCode code="completed" /> < effectiveTime value="430163569851" /> <value unit=&quot ;RATIO" xsi:type="PQ" value="1.4" /> < referenceRange> <observationRange> <text> 1.1-2.2</text> </observationRange> </ referenceRange> </observation> </component> < component> <observation moodCode="EVN" classCode=" OBS"> <templateId root="2.16.840.1.671374.10.20.22.4.2& quot; /> <id nullFlavor="NA" /> <code codeSystem="local" code="300.0095" displayName=" LICTERUS" /> <statusCode code="completed" /> <effectiveTime value="760550345967" /> <value unit="" xsi:type="PQ" value="< 2" /> <referenceRange> <observationRange> & lt;text>0-7</text> </observationRange> </ referenceRange> </observation> </component> < component> <observation moodCode="EVN" classCode=" OBS"> <templateId root="2.16.840.1.426390.10.20.22.4.2& quot; /> <id nullFlavor="NA" /> <code codeSystem="local" code="300.0096" displayName=" LHEMOLYSIS" /> <statusCode code="completed" /> <effectiveTime value="871282665667" /> < value unit="" xsi:type="PQ" value="< 15" /& gt; <referenceRange> <observationRange> <text>0-25</text> </observationRange> </referenceRange> </observation> </component> <component> <observation moodCode="EVN" classCode ="OBS"> <templateId root=" 2.16.840.1.305656.10..22.4.2" /> <id nullFlavor="NA& quot; /> <code codeSystem="local" code="300.0097" displayName="LTURBIDITY"/> <statusCode code=" completed" /> <effectiveTime value="250641945902" /> <value unit="" xsi:type="PQ" value="& amp;lt; 20" /> <referenceRange> < observationRange> <text>0-20</text> </ observationRange> </referenceRange> </observation&gt ; </component> </organizer> </entry> <entry> <organizer moodCode="EVN" classCode="BATTERY"> <templateIdroot="2.16.840.1.886630.10..22.4.1" /> < id nullFlavor="NA" /> <code codeSystem="local" code=& quot;LPHOS" displayName="L200.0630" /> <statusCode code="completed" /> <component> < observationmoodCode="EVN" classCode="OBS"> < templateId root="2.16.840.1.090982.10.20.22.4.2" /> < id nullFlavor="NA" /> <code codeSystem="local&quot ; code="300.2300" displayName="Phosphorus" /> < statusCode code="completed" /> <effectiveTime value=& quot;807288217891" /> <value unit="MG/DL" xsi:type ="PQ" value="3.0" /> <referenceRange> <observationRange> <text>2.5-4.5</text> </observationRange> </referenceRange> &lt ;/observation> </component> </organizer> </entry> <entry> <organizer moodCode="EVN" classCode=" BATTERY"> <templateId root="2.16.840.1.908164.10.20.22.4.1& quot; /> <id nullFlavor="NA" /> <code codeSystem ="local" code="LMAG" displayName="L200.2000" /&gt ; <statusCode code="completed" /> <component> <observation moodCode="EVN" classCode="OBS"> <templateId root="2.16.840.1.786357.10.20.22.4.2" /> <id nullFlavor="NA" /> <code codeSystem=" local" code="300.2350" displayName="MAG - Magnesium" /& gt; <statusCode code="completed" /> < effectiveTime value="123531377355" /> <value unit=&quot ;MG/DL" xsi:type="PQ" value="2.1" /> < referenceRange> <observationRange> <text> 1.6-2.3</text> </observationRange> </ referenceRange> </observation> </component> </ organizer> </entry> <entry> <organizer moodCode="EVN " classCode="BATTERY"> <templateId root=" 2.16.840.1.530017.10.20.22.4.1" /> <id nullFlavor="NA&quot ; /> <code codeSystem="local" code="LLDH" displayName="L200.1855" /> <statusCode code="completed " /> <component> <observation moodCode="EVN& quot;classCode="OBS"> <templateId root=" 2.16.840.1.422047.10..22.4.2" /> <id nullFlavor="NA& quot; /> <code codeSystem="local" code="300.3250& quot; displayName="LDH - Lactate Dehydrogenase" /> < statusCode code="completed" /> <effectiveTime value=& quot;731151480415" /> <value unit="U/L" xsi:type=& quot;PQ" value="412" /> <referenceRange> & lt;observationRange> <text>313618</text> </observationRange> </referenceRange> </ observation> </component> </organizer> </entry> & lt;entry> <organizer moodCode="EVN" classCode="BATTERY& quot;> <templateId root="2.16.840.1.654180.10.20.22.4.1" /& gt; <id nullFlavor="NA" /> <code codeSystem=" local" code="LTSH" displayName="L200.3850" /> & lt;statusCode code="completed" /> <component> &lt ;observation moodCode="EVN"classCode="OBS"> < templateId root="2.16.840.1.881553.10.20.22.4.2" /> < id nullFlavor="NA" /> <code codeSystem="local&quot ; code="300.5500" displayName="TSH - Thyroid Stim Hormone" / > <statusCode code="completed" /> < effectiveTime value="171895645906" /> <value unit=&quot ;MIU/L" xsi:type="PQ" value="19.20" /> < interpretationCode codeSystem="local" code="*" /> <referenceRange> <observationRange> < text>0.47-4.68</text> </observationRange> </ referenceRange> </observation></component> </ organizer> </entry> <entry> <organizer moodCode="EVN " classCode="BATTERY"> <templateId root=" 2.16.840.1.458480.10.20.22.4.1" /> <id nullFlavor="NA&quot ; /> <code codeSystem="local" code="LT4F" displayName="L200.3600" /> <statusCode code="completed " /> <component> <observation moodCode="EVN& quot; classCode="OBS"> <templateId root=" 2.16.840.1.090046.10.20.22.4.2" /> <id nullFlavor="NA&quot ; /> <code codeSystem="local" code="300.5250&quot ; displayName="Free T4 (Free Thyroxine)-Batch" /> < statusCode code="completed" /> <effectiveTime value=& quot;688655555163" /> <value unit="NG/DL" xsi:type=& quot;PQ" value="1.18" /><referenceRange> < observationRange> <text>0.78-2.19</text> </observationRange> </referenceRange> </ observation> </component> </organizer> </entry> & lt;entry> <organizer moodCode="EVN" classCode="BATTERY& quot;> <templateId root="2.16.840.1.490729.10.20.22.4.1" /& gt; <id nullFlavor="NA" /> <code codeSystem=" local" code="LCORTR-A" displayName="L902.5645" /> <statusCode code="completed" /> <component> <observation moodCode="EVN" classCode="OBS"> <templateId root="2.16.840.1.647493.10.20.22.4.2" /> <id nullFlavor="NA" /> <code codeSystem=" local" code="902.5645" displayName="Cortisol Random, Serum - AMS" /> <statusCode code="completed" /> <effectiveTime value="066688138001" /> <value unit="ug/dL" xsi:type="PQ" value="6" /> & lt;referenceRange> <observationRange> <text& gt;3-20</text> </observationRange> </ referenceRange> </observation> </component> </ organizer> </entry> <entry> <organizer moodCode="EVN " classCode="BATTERY"> <templateId root=" 2.16.840.1.637453.10.20.22.4.1" /> <id nullFlavor="NA&quot ; /> <code codeSystem="local" code="LCBC" displayName="L100.0050" /> <statusCode code="completed " /> <component> <observation moodCode="EVN& quot;classCode="OBS"> <templateId root=" 2.16.840.1.235631.10.20.22.4.2" /> <id nullFlavor="NA& quot; /> <code codeSystem="local" code="100.0150& quot; displayName="WBC - WHITE BLOOD COUNT" /> < statusCode code="completed" /> <effectiveTime value=& quot;517772313688" /> <value unit="T/MM3" xsi:type= "PQ" value="10.8" /> <referenceRange> <observationRange> <text>4.5-11.0</text> </observationRange> </referenceRange> </ observation> </component> <component> < observation moodCode="EVN" classCode="OBS"> < templateId root="2.16.840.1.763604.10.20.22.4.2"/> <id nullFlavor="NA" /> <code codeSystem="local" code="100.0250" displayName="RED BLOOD COUNT" /> <statusCode code="completed" /> <effectiveTime value="988370458928" /><value unit="M/MM3" xsi:type=& quot;PQ" value="5.06" /> <referenceRange> <observationRange> <text>4.00-5.20</text> </observationRange> </referenceRange> &lt ;/observation> </component> <component> < observation moodCode="EVN" classCode="OBS"> < templateId root="2.16.840.1.658366.10.20.22.4.2" /> <id nullFlavor="NA" /> <code codeSystem="local" code="100.0300" displayName="HGB - HEMOGLOBIN" /> <statusCode code="completed" /> <effectiveTime value="245504681948" /> <value unit="GM/DL" xsi:type="PQ" value="14.0" /> <referenceRange > <observationRange> <text>12-16</text ></observationRange> </referenceRange> </ observation> </component> <component> < observation moodCode="EVN" classCode="OBS"> < templateId root="2.16.840.1.599032.10.20.22.4.2" /> < id nullFlavor="NA" /> <code codeSystem="local&quot ; code="100.0400" displayName="HCT - HEMATOCRIT" /> <statusCode code="completed" /> <effectiveTime value="240647030958" /> <value unit="%& quot; xsi:type="PQ" value="41.9" /> < referenceRange> <observationRange> <text> 36-46</text> </observationRange> </ referenceRange> </observation> </component> < component> <observation moodCode="EVN" classCode=" OBS"> <templateId root="2.16.840.1.776662.10.20.22.4.2& quot; /> <id nullFlavor="NA" /> <code codeSystem="local" code="100.0550"displayName="MEAN CORPUSCULAR VOLUME" /> <statusCode code="completed&quot ; /> <effectiveTime value="675178344398" /> <value unit="UM3" xsi:type="PQ" value="82.8" /> <referenceRange> <observationRange> <text>80-100</text> </observationRange> </referenceRange> </observation> </component> <component> <observation moodCode="EVN" classCode=& quot;OBS"> <templateId root=" 2.16.840.1.717655.10.20.22.4.2" /> <id nullFlavor="NA& quot; /> <code codeSystem="local" code="100.0600& quot; displayName="MEAN CORPUSCULAR HGB" /> < statusCode code="completed" /> <effectiveTime value=& quot;728562212830" /> <value unit="UUG" xsi:type=& quot;PQ" value="27.7" /> <referenceRange>< observationRange> <text>26-34</text> < /observationRange> </referenceRange> </observation& gt; </component> <component> <observation moodCode="EVN" classCode="OBS"> <templateId root="2.16.840.1.856586.10.20.22.4.2" /> <id nullFlavor ="NA" /> <code codeSystem="local" code=" 100.0650" displayName="MEAN CORPUSCULAR HGB CONC(MCHC" /> <statusCode code="completed" /> < effectiveTime value="203599739691" /> <value unit=&quot ;GM/DL" xsi:type="PQ" value="33.4" /> < referenceRange> <observationRange> <text>31-37< /text> </observationRange> </referenceRange> </observation> </component> <component> <observation moodCode="EVN" classCode="OBS"> < templateId root="2.16.840.1.962589.10.20.22.4.2" /> < id nullFlavor="NA" /> <code codeSystem="local&quot ; code="100.0750" displayName="RDW STANDARD DEVIATION" /&gt ; <statusCode code="completed" /> < effectiveTime value="724646990868" /> <value unit=&quot ;FL"xsi:type="PQ" value="43.0" /> < referenceRange> <observationRange> <text> 36.9-50.2</text> </observationRange> </ referenceRange> </observation> </component> < component> <observation moodCode="EVN" classCode=" OBS"> <templateId root="2.16.840.1.762611.10.20.22.4.2& quot; /> <id nullFlavor="NA" /> <code codeSystem="local" code="100.0850" displayName="PLT - PLATELET COUNT" /> <statusCode code="completed" /& gt; <effectiveTime value="818746442919" /> <value unit="T/MM3" xsi:type="PQ" value="328" /> <referenceRange> <observationRange> &lt ;text>130-400</text> </observationRange> </ referenceRange> </observation> </component> < component> <observation moodCode="EVN" classCode=" OBS"> <templateId root="[id number]& quot; /> <id nullFlavor="NA" /> <code codeSystem="local" code="100.0950" displayName="MEAN PLATELET VOLUME" /> <statusCode code="completed" / > <effectiveTime value="[id number]" /> & lt;value unit="UM3" xsi:type="PQ" value="9.2" /&gt ; <interpretationCode codeSystem="local" code="*&quot ; /> <referenceRange> <observationRange> <text>9.4-12.4</text> </observationRange> </referenceRange> </observation> </component> <component> <observation moodCode="EVN" classCode ="OBS"> <templateId root=" [id number]" /> <id nullFlavor="NA& quot; /> <code codeSystem="local" code="100.1050& quot; displayName="NEUTROPHILS % (AUTO)" /> < statusCode code="completed" /> <effectiveTime value=& quot;[id number]" /> <value unit="%" xsi: type="PQ" value="63.4" /> <referenceRange&gt ; <observationRange> <text>33-66</text&gt ; </observationRange> </referenceRange> & lt;/observation> </component> <component> < observation moodCode="EVN" classCode="OBS"> < templateId root="2.16.840.1.328018.10.20.22.4.2" /> < id nullFlavor="NA" /> <code codeSystem="local&quot ; code="100.1100" displayName="LYMPHOCYTES % (AUTO)&quot ; /> <statusCode code="completed" /> < effectiveTime value="174303737073" /> <value unit=&quot ;%" xsi:type="PQ" value="23.3" /> & lt;referenceRange> <observationRange> <text& gt;23-45</text> </observationRange> </ referenceRange> </observation> </component> < component><observation moodCode="EVN" classCode="OBS"& gt; <templateId root="2.16.840.1.175893.10..22.4.2" /&gt ; <id nullFlavor="NA" /> <code codeSystem=" local" code="100.1150" displayName="MONOCYTES % ( AUTO)" /> <statusCode code="completed" /> <effectiveTime value="363857108959" /> <value unit="%" xsi:type="PQ" value="6.2" /> <referenceRange> <observationRange> <text>0-9.0</text> </observationRange> & lt;/referenceRange> </observation> </component> <component> <observation moodCode="EVN" classCode="OBS& quot;> <templateId root="2.16.840.1.465735.10..22.4.2&quot ; /> <id nullFlavor="NA" /> <code codeSystem ="local" code="100.1200" displayName="EOSINOPHILS & #37; (AUTO)" /> <statusCode code="completed" /&gt ; <effectiveTime value="270830323293" /> < value unit="%" xsi:type="PQ" value="6.6" / > <interpretationCode codeSystem="local" code="*& quot; /> <referenceRange> <observationRange> <text>0-4</text> </observationRange> </referenceRange> </observation> </component&gt ; <component> <observation moodCode="EVN" classCode="OBS"> <templateId root=" 2.16.840.1.613003.10.20.22.4.2" /> <id nullFlavor="NA& quot; /> <code codeSystem="local" code="100.1250& quot; displayName="BASOPHILS % (AUTO)" /> < statusCode code="completed" /> <effectiveTime value=& quot;976972242821" /> <value unit="%" xsi: type="PQ" value="0.4" /> <referenceRange> <observationRange> <text>0-2</text> </observationRange> </referenceRange> </ observation> </component> <component> < observation moodCode="EVN" classCode="OBS"> < templateId root="2.16.840.1.343140.10..22.4.2" /> < id nullFlavor="NA" /> <code codeSystem="local&quot ; code="100.1275" displayName="IMMATURE GRANULOCYTE % ( AUTO)" /> <statusCode code="completed" /> <effectiveTime value="153005387975" /> <value unit="%" xsi:type="PQ" value="0.1" /> <referenceRange> <observationRange> <text>0.0-0.5</text> </observationRange> </referenceRange> </observation> </component> <component> <observation moodCode="EVN" classCode=& quot;OBS"> <templateId root=" 2.16.840.1.607648.10.20.22.4.2" /> <id nullFlavor="NA& quot; /> <code codeSystem="local" code="100.1300& quot; displayName="NEUTROPHILS # (AUTO)" /> < statusCode code="completed" /> <effectiveTime value=& quot;192029931253" /> <value unit="T/MM3" xsi:type ="PQ" value="6.9" /> <referenceRange> <observationRange> <text>1.8-7.7</text> </observationRange> </referenceRange> &lt ;/observation> </component> <component> < observation moodCode="EVN" classCode="OBS"> < templateId root="2.16.840.1.280302.10.20.22.4.2" /> < id nullFlavor="NA" /> <code codeSystem="local" code=& quot;100.1350" displayName="LYMPHOCYTES # (AUTO)" /> <statusCode code="completed" /> <effectiveTime value ="180779005530" /> <value unit="T/MM3" xsi: type="PQ" value="2.5" /> <referenceRange> <observationRange> <text>1-4.8</text> </observationRange> </referenceRange> </ observation> </component> <component> < observation moodCode="EVN" classCode="OBS"> < templateId root="2.16.840.1.084306.10.20.22.4.2" /> < id nullFlavor="NA" /> <code codeSystem="local&quot ; code="100.1400" displayName="MONOCYTES # (AUTO)"/> <statusCode code="completed" /> < effectiveTime value="027543554744" /> <value unit=&quot ;T/MM3" xsi:type="PQ" value="0.7" /> < referenceRange> <observationRange> <text> 0-0.8</text> </observationRange> </ referenceRange> </observation> </component> < component> <observation moodCode="EVN" classCode=" OBS"> <templateId root="2.16.840.1.338298.10.20.22.4.2& quot; /> <id nullFlavor="NA" /> <code codeSystem="local" code="100.1450" displayName=" EOSINOPHILS # (AUTO)" /> <statusCode code="completed&quot ; /> <effectiveTime value="571994072263" /> <value unit="T/MM3" xsi:type="PQ" value="0.7&quot ; /> <interpretationCode codeSystem="local" code=" *" /> <referenceRange> <observationRange> <text>0-0.5</text> </observationRange> </referenceRange> </observation> </component > <component> <observation moodCode="EVN" classCode="OBS"> <templateId root=" 2.16.840.1.968640.10.20.22.4.2" /> <id nullFlavor="NA& quot; /> <code codeSystem="local" code="100.1500& quot; displayName="BASOPHILS # (AUTO)" /> <statusCode code="completed" /> <effectiveTime value=" 947278239796" /> <value unit="T/MM3" xsi:type="PQ& quot; value="0.0" /> <referenceRange> &lt ;observationRange> <text>0-0.2</text> </ observationRange> </referenceRange> </observation&gt ; </component> <component> <observation moodCode ="EVN" classCode="OBS"> <templateId root=& quot;2.16.840.1.412187.10.20.22.4.2" /> <id nullFlavor="NA& quot; /> <code codeSystem="local" code="100.1525& quot; displayName="IMMATURE GRANULOCYTE # (AUTO)" /> < statusCode code="completed" /> <effectiveTime value=& quot;328512250924" /> <value unit="T/MM3" xsi:type=" PQ" value="0.01" /> <referenceRange> <observationRange> <text>0.00-0.03</text> </observationRange> </referenceRange> </ observation> </component> </organizer> </entry> & lt;entry> <organizer moodCode="EVN" classCode="BATTERY& quot;> <templateId root="2.16.840.1.363883.10.20.22.4.1" /& gt; <id nullFlavor="NA" /> <code codeSystem=" local" code="LMAG" displayName="L200.2000" /> & lt;statusCode code="completed" /> <component> &lt ;observation moodCode="EVN" classCode="OBS"> &lt ;templateId root="2.16.840.1.216579.10.20.22.4.2" /> < id nullFlavor="NA" /> <code codeSystem="local&quot ; code="300.2350" displayName="MAG - Magnesium" /> <statusCode code="completed" /> <effectiveTime value="015896322420" /> <value unit="MG/DL" xsi:type="PQ" value="1.9" /> <referenceRange& gt; <observationRange> <text>1.6-2.3</ text> </observationRange> </referenceRange> & lt;/observation> </component> </organizer> </entry&gt ; <entry> <organizer moodCode="EVN" classCode=" BATTERY"> <templateId root="2.16.840.1.294912.10.20.22.4.1& quot; /> <id nullFlavor="NA" /> <code codeSystem ="local" code="LLDH" displayName="L200.1855" /&gt ; <statusCode code="completed" /> <component> <observation moodCode="EVN" classCode="OBS"> <templateId root="2.16.840.1.034793.10.20.22.4.2" /> < id nullFlavor="NA" /> <code codeSystem="local&quot ; code="300.3250" displayName="LDH - Lactate Dehydrogenase" /> <statusCode code="completed" /> < effectiveTime value="475160181137" /> <value unit=&quot ;U/L" xsi:type="PQ" value="413" /> < referenceRange> <observationRange> <text> 313-148</text> </observationRange> </referenceRange& gt; </observation> </component> </organizer> & lt;/entry> <entry> <organizer moodCode="EVN" classCode ="BATTERY"> <templateId root=" 2.16.840.1.880925.10.20.22.4.1" /> <id nullFlavor="NA&quot ; /> <code codeSystem="local" code="LCBC" displayName="L100.0050" /> <statusCode code="completed " /> <component> <observation moodCode="EVN& quot; classCode="OBS"> <templateId root=" 2.16.840.1.841175.10.20.22.4.2" /> <id nullFlavor="NA" /&gt ; <code codeSystem="local" code="100.0150" displayName="WBC - WHITE BLOOD COUNT" /> <statusCode code="completed" /> <effectiveTime value=" 363057826166" /> <value unit="T/MM3" xsi:type=& quot;PQ" value="10.9" /> <referenceRange> <observationRange> <text>4.5-11.0</text> </observationRange> </referenceRange> </ observation> </component> <component> < observation moodCode="EVN" classCode="OBS"> < templateId root="2.16.840.1.848690.10.20.22.4.2" /><id nullFlavor="NA" /> <code codeSystem="local" code="100.0250" displayName="RED BLOOD COUNT" /> <statusCode code="completed" /> <effectiveTime value="133523209219" /> <value unit="M/MM3" xsi:type="PQ" value="5.11" /> <referenceRange > <observationRange> <text>4.00-5.20</ text> </observationRange> </referenceRange> </observation> </component> <component> <observation moodCode="EVN" classCode="OBS"> <templateId root="2.16.840.1.846634.10.20.22.4.2" /> <id nullFlavor="NA" /> <code codeSystem=" local" code="100.0300" displayName="HGB - HEMOGLOBIN" / > <statusCode code="completed"/> < effectiveTime value="370704278036" /> <value unit=&quot ;GM/DL" xsi:type="PQ" value="14.1" /> < referenceRange> <observationRange> <text>12-16& lt;/text> </observationRange> </referenceRange& gt; </observation> </component><component> <observation moodCode="EVN" classCode="OBS"> < templateId root="2.16.840.1.381387.10.20.22.4.2" /> < id nullFlavor="NA" /> <code codeSystem="local&quot ; code="100.0400" displayName="HCT - HEMATOCRIT" /> <statusCode code="completed" /> <effectiveTime value= "020746159512" /> <value unit="%" xsi :type="PQ" value="42.4" /> <referenceRange&gt ; <observationRange> <text>36-46</text&gt ; </observationRange> </referenceRange> & lt;/observation> </component> <component> < observation moodCode="EVN" classCode="OBS"> < templateId root="2.16.840.1.306918.10.20.22.4.2" /> < id nullFlavor="NA" /> <code codeSystem="local&quot ; code="100.0550" displayName="MEAN CORPUSCULAR VOLUME" /&gt ; <statusCode code="completed" /> <effectiveTime value="321924340381" /> <value unit="UM3" xsi :type="PQ" value="83.0" /> <referenceRange&gt ; <observationRange> <text>80-100</text& gt; </observationRange> </referenceRange> & lt;/observation> </component> <component> < observation moodCode="EVN" classCode="OBS"> < templateId root="2.16.840.1.585853.10.20.22.4.2" /> < id nullFlavor="NA" /> <code codeSystem="local&quot ; code="100.0600" displayName="MEAN CORPUSCULAR HGB" /> <statusCode code="completed" /> < effectiveTime value="459972157425" /> <value unit=&quot ;UUG" xsi:type="PQ" value="27.6" /> < referenceRange> <observationRange> <text> 26-34</text> </observationRange> </ referenceRange> </observation> </component> < component> <observation moodCode="EVN" classCode="OBS& quot;> <templateId root="2.16.840.1.624994.10.20.22.4.2&quot ; /> <id nullFlavor="NA" /> <code codeSystem="local" code="100.0650" displayName="MEAN CORPUSCULAR HGB CONC(MCHC" /> <statusCode code=" completed" /> <effectiveTime value="910927214356" /> <value unit="GM/DL" xsi:type="PQ" value=& quot;33.3" /> <referenceRange> < observationRange> <text>31-37</text> < /observationRange> </referenceRange> </observation> </component> <component> <observation moodCode=" EVN" classCode="OBS"> <templateId root=" 2.16.840.1.297022.10.20.22.4.2" /> <id nullFlavor="NA& quot; /> <code codeSystem="local" code="100.0750& quot; displayName="RDW STANDARD DEVIATION" /> < statusCode code="completed" /> <effectiveTime value=& quot;175486512985" /> <value unit="FL" xsi:type=& quot;PQ" value="42.9" /> <referenceRange> <observationRange> <text>36.9-50.2</text> </observationRange> </referenceRange> & lt;/observation> </component> <component> < observation moodCode="EVN" classCode="OBS"> < templateId root="2.16.840.1.378182.10..22.4.2" /> < id nullFlavor="NA" /> <code codeSystem="local" code="100.0850" displayName="PLT - PLATELET COUNT" /> <statusCode code="completed" /> < effectiveTime value="789206911010" /> <value unit=&quot ;T/MM3" xsi:type="PQ" value="341" /> < referenceRange> <observationRange> <text> 130-400</text> </observationRange> </ referenceRange> </observation> </component> < component> <observation moodCode="EVN" classCode=" OBS"> <templateId root="2.16.840.1.710502.10.20.22.4.2& quot; /> <id nullFlavor="NA" /> <code codeSystem= "local" code="100.0950" displayName="MEAN PLATELET VOLUME" /> <statusCode code="completed" /> <effectiveTime value="458211990559" /> <value unit="UM3" xsi:type="PQ" value="9.4" /> <referenceRange> <observationRange> <text> 9.4-12.4</text> </observationRange> </ referenceRange> </observation> </component> < component> <observation moodCode="EVN" classCode=" OBS"> <templateId root="2.16.840.1.788082.10.20.22.4.2& quot; /> <id nullFlavor="NA" /> <code codeSystem="local" code="100.1050" displayName=" NEUTROPHILS % (AUTO)" /> <statusCode code=" completed" /> <effectiveTime value="072764364284" /> <value unit="%" xsi:type="PQ" value="64.2" /> <referenceRange> < observationRange> <text>33-66</text> < /observationRange> </referenceRange> </observation& gt; </component> <component> <observation moodCode="EVN" classCode="OBS"> <templateId root="2.16.840.1.159533.10.20.22.4.2" /> <id nullFlavor ="NA" /> <code codeSystem="local" code=" 100.1100" displayName="LYMPHOCYTES % (AUTO)" /> <statusCode code="completed" /> <effectiveTime value="343556484309" /> <value unit="%& quot; xsi:type="PQ" value="23.2" /> < referenceRange> <observationRange> <text> 23-45</text> </observationRange> </ referenceRange> </observation> </component> < component><observation moodCode="EVN" classCode="OBS"& gt; <templateId root="2.16.840.1.849007.10.20.22.4.2" /&gt ; <id nullFlavor="NA" /> <code codeSystem=" local" code="100.1150" displayName="MONOCYTES % ( AUTO)" /> <statusCode code="completed" /> <effectiveTime value="522348851771" /> <value unit="%" xsi:type="PQ" value="6.6" /> <referenceRange> <observationRange> <text>0-9.0</text> </observationRange> & lt;/referenceRange> </observation> </component> <component> <observation moodCode="EVN" classCode="OBS& quot;> <templateId root="2.16.840.1.305802.10.20.22.4.2&quot ; /> <id nullFlavor="NA" /> <code codeSystem ="local" code="100.1200" displayName="EOSINOPHILS & #37; (AUTO)" /> <statusCode code="completed" /&gt ; <effectiveTime value="040672035185" /> < value unit="%" xsi:type="PQ" value="5.4" / > <interpretationCode codeSystem="local" code="*& quot; /> <referenceRange> <observationRange> <text>0-4</text> </observationRange> </referenceRange> </observation> </component&gt ; <component> <observation moodCode="EVN" classCode="OBS"> <templateId root=" 2.16.840.1.348631.10..22.4.2" /> <id nullFlavor="NA& quot; /> <code codeSystem="local" code="100.1250& quot; displayName="BASOPHILS % (AUTO)" /> < statusCode code="completed" /> <effectiveTime value=& quot;113820805013" /> <value unit="%" xsi: type="PQ" value="0.2" /> <referenceRange> <observationRange> <text>0-2</text> </observationRange> </referenceRange> </ observation> </component> <component> < observation moodCode="EVN" classCode="OBS"> < templateId root="2.16.840.1.825826.10.20.22.4.2" /> < id nullFlavor="NA" /> <code codeSystem="local&quot ; code="100.1275" displayName="IMMATURE GRANULOCYTE % ( AUTO)" /> <statusCode code="completed" /> <effectiveTime value="355291420822" /> <value unit="%" xsi:type="PQ" value="0.4" /> <referenceRange> <observationRange> <text>0.0-0.5</text> </observationRange> </referenceRange> </observation> </component> <component> <observation moodCode="EVN" classCode=& quot;OBS"> <templateId root=" 2.16.840.1.529097.10.20.22.4.2" /> <id nullFlavor="NA& quot; /> <code codeSystem="local" code="100.1300& quot; displayName="NEUTROPHILS # (AUTO)" /> < statusCode code="completed" /> <effectiveTime value=& quot;348675041274" /> <value unit="T/MM3" xsi:type ="PQ" value="7.0" /> <referenceRange> <observationRange> <text>1.8-7.7</text> </observationRange> </referenceRange> &lt ;/observation> </component> <component> < observation moodCode="EVN" classCode="OBS"> < templateId root="2.16.840.1.364496.10.20.22.4.2" /> < id nullFlavor="NA" /> <code codeSystem="local" code=& quot;100.1350" displayName="LYMPHOCYTES # (AUTO)" /> <statusCode code="completed" /> <effectiveTime value ="277912037572" /> <value unit="T/MM3" xsi: type="PQ" value="2.5" /> <referenceRange> <observationRange> <text>1-4.8</text> </observationRange> </referenceRange> </ observation> </component> <component> < observation moodCode="EVN" classCode="OBS"> < templateId root="2.16.840.1.831727.10.20.22.4.2" /> < id nullFlavor="NA" /> <code codeSystem="local&quot ; code="100.1400" displayName="MONOCYTES # (AUTO)"/> <statusCode code="completed" /> < effectiveTime value="566951439659" /> <value unit=&quot ;T/MM3" xsi:type="PQ" value="0.7" /> < referenceRange> <observationRange> <text> 0-0.8</text> </observationRange> </ referenceRange> </observation> </component> < component> <observation moodCode="EVN" classCode=" OBS"> <templateId root="2.16.840.1.826779.10.20.22.4.2& quot; /> <id nullFlavor="NA" /> <code codeSystem="local" code="100.1450" displayName=" EOSINOPHILS # (AUTO)" /> <statusCode code="completed&quot ; /> <effectiveTime value="759046172008" /> <value unit="T/MM3" xsi:type="PQ" value="0.6&quot ; /> <interpretationCode codeSystem="local" code=" *" /> <referenceRange> <observationRange> <text>0-0.5</text> </observationRange> </referenceRange> </observation> </component > <component> <observation moodCode="EVN" classCode="OBS"> <templateId root=" 2.16.840.1.054442.10.20.22.4.2" /> <id nullFlavor="NA& quot; /> <code codeSystem="local" code="100.1500& quot; displayName="BASOPHILS # (AUTO)" /> <statusCode code="completed" /> <effectiveTime value=" 632526250439" /> <value unit="T/MM3" xsi:type="PQ& quot; value="0.0" /> <referenceRange> &lt ;observationRange> <text>0-0.2</text> </ observationRange> </referenceRange> </observation&gt ; </component> <component> <observation moodCode ="EVN" classCode="OBS"> <templateId root=& quot;2.16.840.1.591079.10.20.22.4.2" /> <id nullFlavor="NA& quot; /> <code codeSystem="local" code="100.1525& quot; displayName="IMMATURE GRANULOCYTE # (AUTO)" /> < statusCode code="completed" /> <effectiveTime value=& quot;284485201896" /> <value unit="T/MM3" xsi:type=" PQ" value="0.04" /> <interpretationCode codeSystem ="local" code="*" /> <referenceRange> <observationRange> <text>0.00-0.03</text&gt ; </observationRange> </referenceRange> & lt;/observation> </component> </organizer> </entry&gt ; <entry> <organizer moodCode="EVN" classCode=" BATTERY"> <templateId root="2.16.840.1.591843.10.20.22.4.1& quot; /> <id nullFlavor="NA" /> <code codeSystem ="local" code="LCMP" displayName="L200.0020" /&gt ; <statusCode code="completed" /> <component> <observation moodCode="EVN" classCode="OBS"> <templateId root="2.16.840.1.249943.10.20.22.4.2" /> <id nullFlavor="NA" /> <code codeSystem=" local" code="300.0400" displayName="FUNGAL CULTURE." /& gt; <statusCode code="completed" /> < effectiveTime value="796700355514" /> <value unit=&quot ;MG/DL" xsi:type="PQ" value="1.1" /> < referenceRange> <observationRange> <text>0.7- 1.2</text> </observationRange> </ referenceRange> </observation> </component> < component> <observation moodCode="EVN" classCode=" OBS"> <templateId root="2.16.840.1.562266.10.20.22.4.2& quot; /> <id nullFlavor="NA" /> <code codeSystem="local" code="300.0450" displayName="FUNGAL CULTURE, BLOOD." /> <statusCode code="completed" / > <effectiveTime value="880886151672" /> & lt;value unit="RATIO" xsi:type="PQ" value="11" /& gt; <referenceRange> <observationRange> < text>6-26</text> </observationRange> </ referenceRange> </observation> </component> < component> <observation moodCode="EVN" classCode=" OBS"><templateId root="2.16.840.1.464037.10.20.22.4.2" /&gt ; <id nullFlavor="NA" /> <code codeSystem=& quot;local" code="300.0100" displayName="NA - Sodium" / > <statusCode code="completed" /> < effectiveTime value="340004388214" /> <value unit=&quot ;MEQ/L" xsi:type="PQ" value="142" /> < referenceRange> <observationRange> <text> 134-144</text> </observationRange> </referenceRange&gt ; </observation> </component> <component> <observation moodCode="EVN" classCode="OBS"> <templateIdroot="2.16.840.1.368510.10.20.22.4.2" /> <id nullFlavor="NA" /> <code codeSystem=" local" code="300.0150" displayName="Potassium" /> <statusCode code="completed" /> < effectiveTime value="931521633368" /> <value unit=&quot ;MEQ/L" xsi:type="PQ" value="4.0" /> < referenceRange> <observationRange> <text>3.6-5&lt ;/text> </observationRange> </referenceRange&gt ; </observation> </component> <component> <observation moodCode="EVN" classCode="OBS"> <templateId root="2.16.840.1.756588.10.20.22.4.2" /> <id nullFlavor="NA" /> <codecodeSystem=" local" code="300.0200" displayName="Chloride" /> & lt;statusCode code="completed" /> <effectiveTime value= "313875912712" /> <value unit="MEQ/L" xsi: type="PQ" value="106"/> <referenceRange> <observationRange> <text>98-107</text&gt ; </observationRange> </referenceRange> & lt;/observation> </component> <component> < observation moodCode="EVN" classCode="OBS"> < templateId root="2.16.840.1.095276.10.20.22.4.2" /> < id nullFlavor="NA" /> <code codeSystem="local&quot ; code="300.0250" displayName="CO2 - Carbon Dioxide" /> <statusCode code="completed" /> < effectiveTime value="238362935120"/> <value unit=" MEQ/L" xsi:type="PQ" value="25" /> < referenceRange> <observationRange> <text> 22-30</text> </observationRange> </ referenceRange> </observation> </component> < component> <observation moodCode="EVN"classCode="OBS "> <templateId root="2.16.840.1.602763.10.20.22.4.2& quot; /> <id nullFlavor="NA" /> <code codeSystem="local" code="300.0300" displayName="Anion Gap" /> <statusCode code="completed" /> <effectiveTime value="602650224316" /> <value unit="MEQ/L" xsi:type="PQ" value="11" /> <referenceRange> <observationRange> < text>5-15</text> </observationRange> </ referenceRange> </observation> </component> < component> <observation moodCode="EVN" classCode=" OBS"> <templateId root="2.16.840.1.635797.10.20.22.4.2& quot; /> <id nullFlavor="NA" /> <code codeSystem="local" code="300.0350" displayName="BUN - Blood Urea Nitrogen" /> <statusCode code="completed& quot; /> <effectiveTime value="770110415478" /> <valueunit="MG/DL" xsi:type="PQ" value="12.0& quot; /> <referenceRange> <observationRange> <text>7-17</text> </observationRange&gt ; </referenceRange> </observation> </ component> <component> <observation moodCode="EVN& quot; classCode="OBS"> <templateId root=" 2.16.840.1.063215.10.20.22.4.2" /> <id nullFlavor="NA& quot; /> <code codeSystem="local" code="300.0410& quot; displayName="Glomerular Filtration Rate" /> < statusCode code="completed" /> <effectiveTime value=& quot;778928808263" /> <value unit="" xsi:type=& quot;PQ" value="58" /> <referenceRange> <observationRange> <text>NRG</text> </observationRange> </referenceRange> </ observation> </component> <component> < observation moodCode="EVN" classCode="OBS"> < templateId root="2.16.840.1.320484.10.20.22.4.2" /> < id nullFlavor="NA" /> <code codeSystem="local&quot ; code="300.0500" displayName="Glucose" /> < statusCode code="completed" /> <effectiveTime value=& quot;046524244701" /> <value unit="MG/DL" xsi:type ="PQ" value="92" /> <referenceRange> <observationRange> <text>65-110</text> </observationRange></referenceRange> </ observation> </component> <component> < observation moodCode="EVN" classCode="OBS"> < templateId root="2.16.840.1.406665.10..22.4.2" /> < id nullFlavor="NA" /> <code codeSystem="local&quot ; code="300.2000" displayName="Osmolality,Calculated" /> <statusCode code="completed" /> < effectiveTime value="706949446959" /> <value unit=&quot ;MOSM/KG" xsi:type="PQ" value="273" /> < referenceRange> <observationRange> <text> 261-280</text> </observationRange> </ referenceRange> </observation> </component> < component> <observation moodCode="EVN" classCode="OBS&quot ;> <templateId root="[id number]" /& gt; <id nullFlavor="NA" /> <code codeSystem=& quot;local" code="300.2200" displayName="Calcium" /&gt ; <statusCode code="completed" /> < effectiveTime value="[id number]" /> <value unit=&quot ;MG/DL" xsi:type="PQ" value="9.0" /> < referenceRange> <observationRange><text>8.4-10.2</ text> </observationRange> </referenceRange> </observation> </component> <component> <observationmoodCode="EVN" classCode="OBS"> <templateId root="[id number]" /> <id nullFlavor="NA" /> <code codeSystem=" local" code="300.2700" displayName="Bilirubin,Total" /& gt; <statusCode code="completed" /> < effectiveTime value="[id number]" /> <value unit=&quot ;MG/DL" xsi:type="PQ" value="0.60" /> < referenceRange> <observationRange> <text> 0.20-1.30</text> </observationRange> </ referenceRange> </observation> </component> < component> <observation moodCode="EVN" classCode=" OBS"> <templateId root="2.16.840.1.927396.10..22.4.2& quot; /> <id nullFlavor="NA" /> <code codeSystem="local" code="300.2975" displayName=" Alkaline Phosphatase" /> <statusCode code="completed" /& gt; <effectiveTime value="604845178456" /> &lt ;value unit="U/L" xsi:type="PQ" value="85" /> <referenceRange> <observationRange> <text>38-126</text> </observationRange> </referenceRange> </observation> </component> <component> <observation moodCode="EVN" classCode=& quot;OBS"> <templateId root=" 2.16.840.1.070418.10..22.4.2" /> <id nullFlavor="NA& quot; /> <code codeSystem="local" code="300.3050& quot; displayName="AST - Aspartate Amino Transfer" /> < statusCode code="completed" /> <effectiveTime value=& quot;006486579017" /> <value unit="U/L" xsi:type=& quot;PQ" value="18" /> <referenceRange> <observationRange> <text>14-36</text> </observationRange> </referenceRange> </ observation> </component> <component> < observation moodCode="EVN" classCode="OBS"> < templateId root="2.16.840.1.763787.10.20.22.4.2" /> < id nullFlavor="NA" /> <code codeSystem="local&quot ; code="300.3100" displayName="ALT" /> < statusCode code="completed" /> <effectiveTime value=& quot;616756891399" /> <value unit="U/L" xsi:type=& quot;PQ" value="43" /> <referenceRange> <observationRange> <text>9-52</text> </observationRange> </referenceRange> </ observation> </component> <component> < observation moodCode="EVN" classCode="OBS"> < templateId root="2.16.840.1.056796.10.20.22.4.2" /> < idnullFlavor="NA" /> <code codeSystem="local&quot ; code="300.3110" displayName="TP - Total Protein" /> <statusCode code="completed" /> < effectiveTime value="430888160672" /> <value unit=&quot ;G/DL" xsi:type="PQ" value="7.3" /> < referenceRange> <observationRange> <text>6.3- 8.2</text> </observationRange> </ referenceRange> </observation> </component> < component> <observation moodCode="EVN" classCode=" OBS"> <templateId root="2.16.840.1.145809.10.20.22.4.2& quot; /> <id nullFlavor="NA" /> <code codeSystem="local" code="300.3120" displayName=" Albumin Level" /> <statusCode code="completed" /& gt; <effectiveTime value="826665873820" /> < value unit="G/DL" xsi:type="PQ" value="4.3" /> <referenceRange> <observationRange> <text>3.5-5.0</text> </observationRange> </referenceRange> </observation> </component> <component> <observation moodCode="EVN" classCode= "OBS"> <templateId root=" 2.16.840.1.743259.10.20.22.4.2" /> <id nullFlavor="NA& quot; /> <code codeSystem="local" code="300.3130& quot; displayName="Globulin" /> <statusCode code=" completed" /> <effectiveTime value="232197391344" /> <value unit="G/DL" xsi:type="PQ" value=& quot;3.0" /> <referenceRange> < observationRange> <text>2.4-3.6</text> < /observationRange> </referenceRange> </observation& gt; </component> <component> <observation moodCode="EVN" classCode="OBS"> <templateId root="2.16.840.1.995905.10.20.22.4.2" /> <id nullFlavor ="NA" /> <code codeSystem="local" code=" 300.3140" displayName="Albumin/Globulin Ratio" /> &lt ;statusCode code="completed" /> <effectiveTime value=& quot;031263616841" /> <value unit="RATIO" xsi:type ="PQ"value="1.4" /> <referenceRange> <observationRange> <text>1.1-2.2</text> </observationRange> </referenceRange> </ observation> </component> <component> < observation moodCode="EVN" classCode="OBS"> < templateId root="2.16.840.1.019140.10.20.22.4.2" /> < id nullFlavor="NA" /> <code codeSystem="local&quot ; code="300.0095" displayName="LICTERUS" /> < statusCode code="completed" /> <effectiveTime value=& quot;796408156735" /> <value unit="" xsi:type=& quot;PQ" value="< 2" /> <referenceRange&gt ; <observationRange> <text>0-7</text> </observationRange> </referenceRange> & lt;/observation> </component> <component> < observation moodCode="EVN" classCode="OBS"> < templateId root="2.16.840.1.062141.10..22.4.2" /> < id nullFlavor="NA" /> <code codeSystem="local&quot ; code="300.0096" displayName="LHEMOLYSIS" /> & lt;statusCode code="completed" /> <effectiveTime value= "564123696777" /> <value unit="" xsi:type=&quot ;PQ" value="< 15" /> <referenceRange> <observationRange> <text>0-25</text> </observationRange> </referenceRange> </ observation> </component> <component> < observation moodCode="EVN" classCode="OBS"> < templateId root="2.16.840.1.638456.10.20.22.4.2" /> < id nullFlavor="NA" /> <code codeSystem="local&quot ; code="300.0097" displayName="LTURBIDITY" /> & lt;statusCode code="completed" /> <effectiveTime value= "887788251111" /> <value unit="" xsi:type=& quot;PQ" value="< 20" /> <referenceRange&gt ; <observationRange> <text>0-20</text> </observationRange> </referenceRange> </ observation> </component> </organizer> </entry> & lt;entry> <organizer moodCode="EVN" classCode="BATTERY& quot;> <templateId root="2.16.840.1.287113.10.20.22.4.1" /& gt; <id nullFlavor="NA" /> <code codeSystem=" local" code="LPHOS" displayName="L200.0630" /> <statusCode code="completed" /> <component> & lt;observation moodCode="EVN" classCode="OBS"> & lt;templateId root="2.16.840.1.402004.10.20.22.4.2" /> &lt ;id nullFlavor="NA" /> <code codeSystem="local& quot; code="300.2300" displayName="Phosphorus" /> <statusCode code="completed"/> <effectiveTime value="249336183525" /> <value unit="MG/DL" xsi:type="PQ" value="3.2" /> <referenceRange& gt; <observationRange> <text>2.5-4.5</text> </observationRange> </referenceRange> &lt ;/observation> </component> </organizer> </entry> <entry> <organizer moodCode="EVN" classCode=" BATTERY"> <templateId root="2.16.840.1.437601.10.20.22.4.1& quot; /> <id nullFlavor="NA" /> <code codeSystem=& quot;local" code="LMAG" displayName="L200.2000" /> <statusCode code="completed" /> <component> & lt;observation moodCode="EVN" classCode="OBS"> < templateId root="2.16.840.1.173576.10.20.22.4.2" /> < id nullFlavor="NA" /> <code codeSystem="local&quot ; code="300.2350" displayName="MAG - Magnesium" /> <statusCode code="completed" /> <effectiveTime value= "767001305058" /> <value unit="MG/DL" xsi: type="PQ" value="1.9" /> <referenceRange> <observationRange> <text>1.6-2.3</text& gt; </observationRange> </referenceRange> </observation> </component> </organizer> </entry > <entry> <organizer moodCode="EVN" classCode=" BATTERY"> <templateId root="2.16.840.1.386110.10.20.22.4.1& quot; /> <id nullFlavor="NA" /> <code codeSystem ="local" code="LLDH" displayName="L200.1855" /&gt ; <statusCode code="completed" /> <component> <observation moodCode="EVN" classCode="OBS"> <templateId root="2.16.840.1.691597.10.20.22.4.2" /> <id nullFlavor="NA" /> <code codeSystem=" local" code="300.3250" displayName="LDH - Lactate Dehydrogenase" /> <statusCode code="completed" /& gt; <effectiveTime value="464266480962" /> < value unit="U/L" xsi:type="PQ" value="401" /> <referenceRange> <observationRange> <text>313-848</text> </observationRange> </referenceRange> </observation> </component> </organizer> </entry> <entry> <organizer moodCode=& quot;EVN" classCode="BATTERY"> <templateId root=" 2.16.840.1.767983.10.20.22.4.1" /> <id nullFlavor="NA&quot ; /> <code codeSystem="local" code="LT4F" displayName="L200.3600" /> <statusCode code="completed " /> <component> <observation moodCode="EVN& quot; classCode="OBS"> <templateId root=" 2.16.840.1.212023.10.20.22.4.2" /> <id nullFlavor="NA& quot; /> <code codeSystem="local" code="300.5250& quot; displayName="Free T4 (Free Thyroxine)-Batch" /> < statusCode code="completed" /> <effectiveTime value=& quot;338252322605" /> <value unit="NG/DL" xsi:type ="PQ" value="1.83" /> <referenceRange> &lt ;observationRange> <text>0.78-2.19</text> </observationRange> </referenceRange> </ observation> </component> </organizer> </entry> & lt;entry> <organizer moodCode="EVN" classCode="BATTERY& quot;> <templateId root="2.16.840.1.086929.10.20.22.4.1" /& gt;<id nullFlavor="NA" /> <code codeSystem="local& quot; code="LACTH-A" displayName="L750.0200" /> < statusCode code="completed" /> <component> < observation moodCode="EVN" classCode="OBS"> < templateId root="2.16.840.1.508882.10.20.22.4.2" /> < id nullFlavor="NA" /> <code codeSystem="local&quot ; code="902.0325" displayName="LACTH-A" /> < statusCode code="completed" /> <effectiveTime value=& quot;212822956215" /> <value unit="pg/mL" xsi:type ="PQ" value="8.0" /> <referenceRange> <observationRange> <text>NRG</text> </observationRange></referenceRange> </observation& gt; </component> </organizer> </entry> <entry&gt ; <organizer moodCode="EVN" classCode="BATTERY"> <templateId root="2.16.840.1.376910.10.20.22.4.1" /> & lt;id nullFlavor="NA" /> <code codeSystem="local&quot ; code="LCORTR-A" displayName="L902.5645" /> < statusCode code="completed" /> <component> < observation moodCode="EVN" classCode="OBS"> < templateId root="2.16.840.1.325716.10.20.22.4.2" /> < id nullFlavor="NA" /> <code codeSystem="local&quot ; code="902.5645" displayName="Cortisol Random, Serum - AMS&quot ; /> <statusCode code="completed" /> < effectiveTime value="725527475833" /> <value unit=&quot ;ug/dL" xsi:type="PQ" value="3" /> < referenceRange> <observationRange> <text> 3-20</text> </observationRange> </referenceRange> </observation> </component> </organizer></ entry> <entry> <organizer moodCode="EVN" classCode=& quot;BATTERY"> <templateId root=" 2.16.840.1.416993.10.20.22.4.1" /> <id nullFlavor="NA&quot ; /> <code codeSystem="local" code="LCBC" displayName="L100.0050" /> <statusCode code="completed " /> <component> <observation moodCode="EVN& quot; classCode="OBS"> <templateId root=" 2.16.840.1.585349.10.20.22.4.2" /> <id nullFlavor="NA& quot; /> <code codeSystem="local" code="100.0150& quot; displayName="WBC - WHITE BLOOD COUNT" /> < statusCode code="completed" /> <effectiveTime value=& quot;191431882172" /> <value unit="T/MM3" xsi:type ="PQ" value="11.9" /> <interpretationCode codeSystem="local" code="*" /> < referenceRange> <observationRange> <text>4.5- 11.0</text> </observationRange> </ referenceRange> </observation> </component> < component> <observation moodCode="EVN" classCode=" OBS"> <templateId root="2.16.840.1.607860.10.20.22.4.2& quot; /> <id nullFlavor="NA" /> <code codeSystem="local" code="100.0250" displayName="RED BLOOD COUNT" /> <statusCode code="completed" /&gt ; <effectiveTime value="660538323112" /> < value unit="M/MM3" xsi:type="PQ" value="5.16" /&gt ; <referenceRange> <observationRange> <text>4.00-5.20</text> </observationRange> </referenceRange> </observation> </component&gt ; <component> <observationmoodCode="EVN" classCode="OBS"> <templateId root=" 2.16.840.1.731908.10.20.22.4.2" /> <id nullFlavor="NA& quot; /> <code codeSystem="local" code="100.0300& quot; displayName="HGB - HEMOGLOBIN" /> <statusCode code=& quot;completed" /> <effectiveTime value="659372140095& quot; /> <value unit="GM/DL" xsi:type="PQ" value="14.1" /> <referenceRange> < observationRange> <text>12-16</text> < /observationRange> </referenceRange> </observation& gt; </component> <component> <observation moodCode="EVN" classCode="OBS"> <templateId root="2.16.840.1.827585.10.20.22.4.2" /> <id nullFlavor ="NA" /> <code codeSystem="local" code=" 100.0400" displayName="HCT - HEMATOCRIT" /> < statusCode code="completed" /> <effectiveTime value=& quot;040720573567" /> <value unit="%" xsi: type="PQ" value="42.6" /> <referenceRange&gt ; <observationRange> <text>36-46</text&gt ; </observationRange> </referenceRange> & lt;/observation> </component> <component> < observation moodCode="EVN" classCode="OBS"> < templateId root="2.16.840.1.402376.10.20.22.4.2" /> < id nullFlavor="NA" /> <code codeSystem="local&quot ; code="100.0550" displayName="MEAN CORPUSCULAR VOLUME" /&gt ; <statusCode code="completed" /> < effectiveTime value="612735005025" /> <value unit=&quot ;UM3" xsi:type="PQ" value="82.6" /> < referenceRange> <observationRange> <text> 80-100</text> </observationRange> </ referenceRange> </observation> </component> < component> <observation moodCode="EVN" classCode=" OBS"> <templateId root="2.16.840.1.687113.10.20.22.4.2& quot; /> <id nullFlavor="NA" /> <code codeSystem="local" code="100.0600" displayName="MEAN CORPUSCULAR HGB" /> <statusCode code="completed" / > <effectiveTime value="461425647942" /> < value unit="UUG" xsi:type="PQ" value="27.3" />& lt;referenceRange> <observationRange> <text& gt;26-34</text> </observationRange> </ referenceRange> </observation> </component> < component> <observation moodCode="EVN" classCode=" OBS"> <templateId root="2.16.840.1.172147.10.20.22.4.2& quot; /> <id nullFlavor="NA" /> <code codeSystem="local" code="100.0650" displayName="MEAN CORPUSCULAR HGB CONC(MCHC" /> <statusCode code=" completed" /> <effectiveTime value="961338335989" /> <value unit="GM/DL" xsi:type="PQ" value=& quot;33.1" /> <referenceRange> <observationRange& gt; <text>31-37</text> </observationRange > </referenceRange> </observation> </ component> <component> <observation moodCode="EVN& quot; classCode="OBS"> <templateId root=" 2.16.840.1.119096.10.20.22.4.2" /> <id nullFlavor="NA& quot; /> <code codeSystem="local" code="100.0750& quot; displayName="RDW STANDARD DEVIATION" /> < statusCode code="completed" /> <effectiveTime value=& quot;239676883922" /> <value unit="FL" xsi:type="PQ " value="42.4" /> <referenceRange> & lt;observationRange> <text>36.9-50.2</text> </observationRange> </referenceRange> </ observation> </component> <component> < observation moodCode="EVN" classCode="OBS"> < templateId root="2.16.840.1.066480.10.20.22.4.2" /> <id nullFlavor="NA" /> <code codeSystem="local" code="100.0850" displayName="PLT - PLATELET COUNT" /> <statusCode code="completed" /> < effectiveTime value="609271356228" /> <value unit=&quot ;T/MM3" xsi:type="PQ" value="331" /> < referenceRange> <observationRange> <text> 130-400</text> </observationRange> </referenceRange > </observation> </component> <component> <observation moodCode="EVN" classCode="OBS"> <templateId root="2.16.840.1.223193.10.20.22.4.2" /> & lt;id nullFlavor="NA" /> <code codeSystem="local& quot; code="100.0950" displayName="MEAN PLATELET VOLUME" /& gt; <statusCode code="completed" /> < effectiveTime value="698675870832" /> <value unit=&quot ;UM3" xsi:type="PQ" value="9.1" /> < interpretationCode codeSystem="local" code="*" /> <referenceRange> <observationRange> <text>9.4 -12.4</text> </observationRange> </ referenceRange> </observation> </component> < component> <observation moodCode="EVN" classCode=" OBS"> <templateId root="2.16.840.1.032728.10.20.22.4.2" / > <id nullFlavor="NA" /> <code codeSystem="local" code="100.1050" displayName=" NEUTROPHILS % (AUTO)" /> <statusCode code=" completed"/> <effectiveTime value="488188331606" / > <value unit="%" xsi:type="PQ" value ="66.4" /> <interpretationCode codeSystem="local& quot; code="*" /> <referenceRange> < observationRange> <text>33-66</text> < /observationRange> </referenceRange> </observation&gt ; </component> <component> <observation moodCode ="EVN" classCode="OBS"> <templateId root=& quot;2.16.840.1.063690.10.20.22.4.2" /> <id nullFlavor=&quot ;NA" /> <code codeSystem="local" code=" 100.1100" displayName="LYMPHOCYTES % (AUTO)" /> <statusCode code="completed" /> <effectiveTime value= "750193827394" /> <value unit="%" xsi :type="PQ" value="22.6" /> < interpretationCode codeSystem="local" code="*" /> <referenceRange> <observationRange> < text>23-45</text> </observationRange> </ referenceRange> </observation> </component> < component> <observation moodCode="EVN" classCode="OBS& quot;> <templateId root="2.16.840.1.130245.10.20.22.4.2&quot ; /> <id nullFlavor="NA" /> <code codeSystem="local" code="100.1150" displayName=" MONOCYTES % (AUTO)" /> <statusCode code=" completed" /> <effectiveTime value="092621392734" /> <value unit="%" xsi:type="PQ" value="6.0" /> <referenceRange> < observationRange> <text>0-9.0</text> < /observationRange> </referenceRange> </observation> & lt;/component> <component> <observation moodCode="EVN " classCode="OBS"> <templateIdroot=" 2.16.840.1.870492.10.20.22.4.2" /> <id nullFlavor="NA& quot; /> <code codeSystem="local" code="100.1200& quot; displayName="EOSINOPHILS % (AUTO)" /> < statusCode code="completed" /> <effectiveTime value=& quot;033452375583" /> <value unit="%" xsi: type="PQ" value="4.4" /> <interpretationCode codeSystem="local" code="*" /> < referenceRange> <observationRange> <text> 0-4</text> </observationRange> </ referenceRange> </observation> </component> < component> <observation moodCode="EVN" classCode=" OBS"> <templateId root="2.16.840.1.070753.10.20.22.4.2& quot; /> <id nullFlavor="NA" /> <code codeSystem="local" code="100.1250" displayName=" BASOPHILS % (AUTO)" /> <statusCode code=" completed" /> <effectiveTimevalue="345044456339" / > <value unit="%" xsi:type="PQ" value ="0.3" /> <referenceRange> < observationRange> <text>0-2</text> </ observationRange> </referenceRange> </observation&gt ; </component> <component> <observation moodCode ="EVN" classCode="OBS"> <templateId root=& quot;2.16.840.1.081288.10.20.22.4.2" /> <id nullFlavor=&quot ;NA" /> <code codeSystem="local" code=" 100.1275" displayName="IMMATURE GRANULOCYTE % (AUTO)" /& gt; <statusCode code="completed" /> < effectiveTime value="231095758302" /> <value unit=&quot ;%" xsi:type="PQ" value="0.3" /> & lt;referenceRange> <observationRange> <text& gt;0.0-0.5</text> </observationRange> </ referenceRange> </observation> </component> < component> <observation moodCode="EVN" classCode=" OBS"> <templateId root="2.16.840.1.872776.10.20.22.4.2& quot; /> <id nullFlavor="NA" /> <code codeSystem="local" code="100.1300" displayName=" NEUTROPHILS # (AUTO)" /> <statusCode code="completed& quot; /> <effectiveTime value="472189579794" /> <value unit="T/MM3" xsi:type="PQ" value="7.9& quot; /> <interpretationCode codeSystem="local" code=& quot;*" /> <referenceRange> < observationRange> <text>1.8-7.7</text> </ observationRange> </referenceRange> </observation&gt ; </component> <component> <observation moodCode ="EVN" classCode="OBS"> <templateId root=& quot;2.16.840.1.603577.10.20.22.4.2" /> <id nullFlavor=&quot ;NA" /> <codecodeSystem="local" code=" 100.1350" displayName="LYMPHOCYTES # (AUTO)" /> < statusCode code="completed" /> <effectiveTime value=& quot;843834744292" /> <value unit="T/MM3" xsi:type ="PQ" value="2.7" /> <referenceRange> <observationRange> <text>1-4.8</text> </observationRange> </referenceRange> </ observation> </component> <component> < observation moodCode="EVN" classCode="OBS"> < templateId root="2.16.840.1.316058.10.20.22.4.2" /> < id nullFlavor="NA" /> <code codeSystem="local&quot ; code="100.1400" displayName="MONOCYTES # (AUTO)" /> <statusCode code="completed" /> <effectiveTime value ="660512800727" /> <value unit="T/MM3" xsi: type="PQ" value="0.7" /> <referenceRange> <observationRange> <text>0-0.8</text&gt ; </observationRange> </referenceRange> & lt;/observation> </component> <component> < observation moodCode="EVN" classCode="OBS"> < templateId root="2.16.840.1.008136.10.20.22.4.2" /> < id nullFlavor="NA" /> <code codeSystem="local&quot ; code="100.1450" displayName="EOSINOPHILS # (AUTO)" /> <statusCode code="completed" /> < effectiveTime value="654142073563" /> <value unit=&quot ;T/MM3" xsi:type="PQ" value="0.5" /> < referenceRange> <observationRange> <text> 0-0.5</text> </observationRange> </ referenceRange> </observation> </component> < component> <observation moodCode="EVN" classCode=" OBS"> <templateId root="2.16.840.1.231657.10.20.22.4.2& quot; /> <id nullFlavor="NA" /> <code codeSystem="local" code="100.1500" displayName=" BASOPHILS # (AUTO)" /> <statusCode code="completed&quot ; /> <effectiveTime value="185416848660" /> &lt ;value unit="T/MM3" xsi:type="PQ" value="0.0" /&gt ; <referenceRange> <observationRange> <text>0-0.2</text> </observationRange> </referenceRange> </observation> </component> <component> <observation moodCode="EVN" classCode=& quot;OBS"> <templateId root=" 2.16.840.1.686518.10.20.22.4.2" /> <id nullFlavor="NA& quot; /> <code codeSystem="local" code="100.1525& quot; displayName="IMMATURE GRANULOCYTE # (AUTO)" /> < statusCode code="completed" /> <effectiveTime value=& quot;645060915149" /> <value unit="T/MM3" xsi:type=& quot;PQ" value="0.04" /> <interpretationCode codeSystem=& quot;local" code="*" /> <referenceRange> <observationRange> <text>0.00-0.03</text> </observationRange> </referenceRange> </ observation> </component> </organizer> </entry> & lt;entry> <organizer moodCode="EVN" classCode="BATTERY& quot;> <templateId root="2.16.840.1.672037.10.20.22.4.1" /& gt; <id nullFlavor="NA" /> <code codeSystem=" local"code="LCMP" displayName="L200.0020" /> & lt;statusCode code="completed" /> <component> &lt ;observation moodCode="EVN" classCode="OBS"> &lt ;templateId root="2.16.840.1.424190.10.20.22.4.2" /><id nullFlavor="NA" /> <code codeSystem="local" code="300.0400" displayName="FUNGAL CULTURE." /> <statusCode code="completed" /> <effectiveTime value="191686151532" /> <value unit="MG/DL" xsi:type="PQ" value="1.1" /> <referenceRange& gt; <observationRange> <text>0.7-1.2</ text> </observationRange> </referenceRange> </observation> </component> <component> <observation moodCode="EVN" classCode="OBS"> <templateId root="2.16.840.1.235302.10.20.22.4.2" /> <id nullFlavor="NA" /> <code codeSystem=" local" code="300.0450"displayName="FUNGAL CULTURE, BLOOD.& quot; /> <statusCode code="completed" /> & lt;effectiveTime value="357952622145" /> <value unit=& quot;RATIO" xsi:type="PQ" value="12" /> &lt ;referenceRange> <observationRange> <text>6-26 </text> </observationRange> </referenceRange& gt; </observation> </component><component> <observation moodCode="EVN" classCode="OBS"> < templateId root="2.16.840.1.225223.10.20.22.4.2" /> < id nullFlavor="NA" /> <code codeSystem="local&quot ; code="300.0100" displayName="NA - Sodium" /> & lt;statusCode code="completed" /> <effectiveTime value= "908272028061" /> <value unit="MEQ/L" xsi: type="PQ" value="141" /> <referenceRange> <observationRange> <text>134-144</text& gt; </observationRange> </referenceRange> < /observation> </component> <component> < observation moodCode="EVN" classCode="OBS"> < templateId root="2.16.840.1.669098.10.20.22.4.2" /> < id nullFlavor="NA" /> <code codeSystem="local&quot ; code="300.0150" displayName="Potassium" /> &lt ;statusCode code="completed" /> <effectiveTimevalue=& quot;260559053561" /> <value unit="MEQ/L" xsi:type ="PQ" value="4.2" /> <referenceRange> <observationRange> <text>3.6-5</text> </observationRange> </referenceRange> </ observation> </component> <component> < observation moodCode="EVN" classCode="OBS"> < templateId root="2.16.840.1.038327.10.20.22.4.2" /> < id nullFlavor="NA" /> <code codeSystem="local&quot ; code="300.0200" displayName="Chloride" /> < statusCode code="completed" /> <effectiveTime value=& quot;024122838502" /> <value unit="MEQ/L" xsi:type ="PQ" value="105" /> <referenceRange> <observationRange> <text>98-107</text> </observationRange> </referenceRange> < /observation> </component> <component> < observation moodCode="EVN" classCode="OBS"> < templateId root="2.16.840.1.496732.10..22.4.2" /> < id nullFlavor="NA" /> <code codeSystem="local&quot ; code="300.0250" displayName="CO2 - Carbon Dioxide" /> <statusCode code="completed" /> < effectiveTime value="[id number]" /> <value unit=&quot ;MEQ/L" xsi:type="PQ" value="26" /> < referenceRange> <observationRange> <text> 22-30</text> </observationRange> </ referenceRange> </observation> </component> < component> <observation moodCode="EVN" classCode=" OBS"> <templateId root="[id number]& quot; /> <id nullFlavor="NA" /> <code codeSystem="local" code="300.0300" displayName="Anion Gap" /> <statusCode code="completed" /> <effectiveTime value="[id number]" /> <value unit="MEQ/L" xsi:type="PQ" value="10" /> <referenceRange> <observationRange> < text>5-15</text> </observationRange> </ referenceRange> </observation> </component> < component> <observation moodCode="EVN" classCode=" OBS"> <templateId root="[id number]& quot; /> <id nullFlavor="NA" /> <code codeSystem="local" code="300.0350" displayName="BUN - Blood Urea Nitrogen" /> <statusCode code="completed& quot; /> <effectiveTime value="935917581793" /> <value unit="MG/DL" xsi:type="PQ" value="13.0& quot; /> <referenceRange> <observationRange> <text>7-17</text></observationRange> & lt;/referenceRange> </observation> </component> <component> <observation moodCode="EVN" classCode=& quot;OBS"> <templateId root=" 2.16.840.1.593097.10.20.22.4.2" /> <id nullFlavor="NA& quot; /> <code codeSystem="local" code="300.0410& quot; displayName="Glomerular Filtration Rate" /> < statusCode code="completed" /> <effectiveTime value=& quot;907873204296" /> <value unit="" xsi:type=& quot;PQ" value="58" /> <referenceRange> <observationRange> <text>NRG</text> </observationRange> </referenceRange> </ observation> </component> <component> < observation moodCode="EVN" classCode="OBS"> < templateId root="2.16.840.1.192452.10.20.22.4.2" /> < id nullFlavor="NA" /> <code codeSystem="local&quot ; code="300.0500" displayName="Glucose" /> < statusCode code="completed" /><effectiveTime value=" 872128551785" /> <value unit="MG/DL" xsi:type=& quot;PQ" value="94" /> <referenceRange> <observationRange> <text>65-110</text> </observationRange> </referenceRange> </ observation> </component> <component> < observation moodCode="EVN" classCode="OBS"> < templateId root="2.16.840.1.159114.10.20.22.4.2" /> < id nullFlavor="NA" /> <code codeSystem="local&quot ; code="300.2000" displayName="Osmolality,Calculated" /> <statusCode code="completed" /> < effectiveTime value="315623082085" /> <value unit=&quot ;MOSM/KG" xsi:type="PQ" value="271" /> < referenceRange> <observationRange> <text> 261-280</text> </observationRange> </referenceRange&gt ; </observation> </component> <component> <observation moodCode="EVN" classCode="OBS"> <templateIdroot="2.16.840.1.144926.10..22.4.2" /> <id nullFlavor="NA" /> <code codeSystem=" local" code="300.2200" displayName="Calcium" /> <statusCode code="completed" /> < effectiveTime value="089070367159" /> <value unit=&quot ;MG/DL" xsi:type="PQ" value="9.4" /> < referenceRange> <observationRange> <text>8.4-10.2& lt;/text> </observationRange> </referenceRange& gt; </observation> </component> <component> <observation moodCode="EVN" classCode="OBS"> <templateId root="2.16.840.1.687797.10.20.22.4.2" /> <id nullFlavor="NA" /> <code codeSystem=&quot ;local" code="300.2700" displayName="Bilirubin,Total" / > <statusCode code="completed" /> < effectiveTime value="849390891131" /> <value unit=&quot ;MG/DL" xsi:type="PQ" value="0.70" /> < referenceRange> <observationRange> <text> 0.20-1.30</text> </observationRange> </ referenceRange> </observation> </component> < component> <observation moodCode="EVN" classCode=" OBS"> <templateId root="2.16.840.1.194035.10.20.22.4.2& quot; /> <id nullFlavor="NA" /> <code codeSystem="local" code="300.2975" displayName=" Alkaline Phosphatase" /> <statusCode code="completed&quot ; /> <effectiveTime value="365111051225" /> <value unit="U/L" xsi:type="PQ" value="87" /& gt; <referenceRange> <observationRange> <text>38-126</text> </observationRange> </referenceRange> </observation> </component&gt ; <component> <observation moodCode="EVN" classCode="OBS"> <templateId root=" 2.16.840.1.229315.10.20.22.4.2" /> <id nullFlavor="NA& quot; /> <code codeSystem="local" code="300.3050& quot; displayName="AST - Aspartate Amino Transfer" /> < statusCode code="completed" /> <effectiveTime value=& quot;146349617619" /> <value unit="U/L" xsi:type=& quot;PQ" value="18" /> <referenceRange> <observationRange> <text>14-36</text> </observationRange> </referenceRange> </ observation> </component> <component> < observation moodCode="EVN" classCode="OBS"> < templateId root="2.16.840.1.490394.10.20.22.4.2" /> < id nullFlavor="NA" /> <code codeSystem="local&quot ; code="300.3100" displayName="ALT" /> < statusCode code="completed" /> <effectiveTime value=& quot;077859797910" /> <value unit="U/L" xsi:type=& quot;PQ" value="39" /> <referenceRange> <observationRange> <text>9-52</text> </ observationRange> </referenceRange> </observation&gt ; </component> <component> <observation moodCode ="EVN" classCode="OBS"> <templateId root=& quot;2.16.840.1.350701.10.20.22.4.2" /> <id nullFlavor=&quot ;NA" /> <code codeSystem="local" code=" 300.3110" displayName="TP - Total Protein" /> < statusCode code="completed" /> <effectiveTime value=& quot;428621521623" /> <value unit="G/DL" xsi:type= "PQ" value="7.3" /> <referenceRange> <observationRange> <text>6.3-8.2</text> </observationRange> </referenceRange> </ observation> </component> <component> < observation moodCode="EVN" classCode="OBS"> < templateId root="2.16.840.1.891815.10.20.22.4.2" /> < id nullFlavor="NA" /> <code codeSystem="local&quot ; code="300.3120" displayName="Albumin Level" /> <statusCode code="completed" /> <effectiveTime value ="505451171980" /> <value unit="G/DL" xsi: type="PQ" value="4.2" /> <referenceRange> <observationRange> <text>3.5-5.0</text& gt; </observationRange> </referenceRange> </observation> </component> <component> &lt ;observation moodCode="EVN" classCode="OBS"> &lt ;templateId root="2.16.840.1.622215.10.20.22.4.2" /> < id nullFlavor="NA" /> <code codeSystem="local&quot ; code="300.3130" displayName="Globulin" /> < statusCode code="completed" /> <effectiveTime value=& quot;569436251802" /> <value unit="G/DL" xsi:type= "PQ" value="3.1" /> <referenceRange> <observationRange> <text>2.4-3.6</text> </observationRange> </referenceRange> < /observation> </component> <component> < observation moodCode="EVN" classCode="OBS"> < templateId root="2.16.840.1.294619.10.20.22.4.2" /> < id nullFlavor="NA" /> <code codeSystem="local" code= "300.3140" displayName="Albumin/Globulin Ratio" /> <statusCode code="completed" /> <effectiveTime value="248438364612" /> <value unit="RATIO" xsi:type="PQ" value="1.4" /> <referenceRange& gt; <observationRange> <text>1.1-2.2</text& gt; </observationRange> </referenceRange> </observation> </component> <component> &lt ;observation moodCode="EVN" classCode="OBS"> &lt ;templateId root="2.16.840.1.469720.10.20.22.4.2" /> < id nullFlavor="NA" /> <code codeSystem="local&quot ; code="300.0095" displayName="LICTERUS" /> < statusCode code="completed" /> <effectiveTime value=& quot;921490527922" /> <value unit="" xsi:type=& quot;PQ" value="< 2" /> <referenceRange&gt ; <observationRange> <text>0-7</text> </observationRange> </referenceRange> </ observation> </component> <component> < observation moodCode="EVN" classCode="OBS"> < templateId root="2.16.840.1.400527.10.20.22.4.2" /> < id nullFlavor="NA" /> <code codeSystem="local&quot ; code="300.0096" displayName="LHEMOLYSIS" /> & lt;statusCode code="completed" /> <effectiveTime value= "332038648993" /> <value unit="" xsi:type=& quot;PQ" value="< 15" /> <referenceRange> <observationRange> <text>0-25</text> </observationRange> </referenceRange> & lt;/observation> </component> <component> < observation moodCode="EVN"classCode="OBS"> < templateId root="2.16.840.1.001938...22.4.2" /> < id nullFlavor="NA" /> <code codeSystem="local&quot ; code="300.0097" displayName="LTURBIDITY" /> & lt;statusCode code="completed" /> <effectiveTime value= "029097137903" /> <value unit="" xsi:type=& quot;PQ" value="< 20" /> <referenceRange&gt ; <observationRange> <text>0-20</text&gt ; </observationRange> </referenceRange> </ observation> </component> </organizer> </entry> & lt;entry> <organizer moodCode="EVN" classCode="BATTERY& quot;> <templateId root="2.16.840.1.315401.10..22.4.1" /& gt; <id nullFlavor="NA" /> <code codeSystem=" local" code="LMAG" displayName="L200.2000" /> & lt;statusCode code="completed" /> <component> &lt ;observation moodCode="EVN" classCode="OBS"> &lt ;templateId root="2.16.840.1.039296.20.22.4.2" /> <id nullFlavor="NA" /> <code codeSystem="local" code="300.2350" displayName="MAG - Magnesium" /> <statusCode code="completed" /> <effectiveTime value="430368882656" /> <value unit="MG/DL" xsi:type="PQ" value="1.9" /> <referenceRange& gt; <observationRange> <text>1.6-2.3</ text> </observationRange> </referenceRange> </observation> </component> </organizer> </ entry> <entry> <organizer moodCode="EVN" classCode=& quot;BATTERY"> <templateId root=" 2.16.840.1.603886.10.20.22.4.1" /> <id nullFlavor="NA&quot ; /> <code codeSystem="local" code="LLDH" displayName="L200.1855" /> <statusCode code="completed " /> <component> <observation moodCode="EVN& quot; classCode="OBS"> <templateId root=" 2.16.840.1.519160.10.20.22.4.2" /> <id nullFlavor="NA& quot; /> <code codeSystem="local" code="300.3250& quot; displayName="LDH - Lactate Dehydrogenase" /> < statusCode code="completed" /> <effectiveTime value=& quot;658467380602" /> <value unit="U/L" xsi:type=& quot;PQ" value="362" /> <referenceRange> <observationRange> <text>313-548</text> </observationRange> </referenceRange> </ observation> </component> </organizer> </entry> & lt;entry> <organizer moodCode="EVN" classCode="BATTERY& quot;> <templateId root="2.16.840.1.716509.10.20.22.4.1" /& gt; <id nullFlavor="NA" /> <code codeSystem=" local" code="LACTH-A" displayName="L750.0200" /> <statusCode code="completed" /> <component> <observation moodCode="EVN" classCode="OBS"> <templateId root="2.16.840.1.025863.10.20.22.4.2" /> <id nullFlavor="NA" /> <code codeSystem=" local" code="902.0325" displayName="LACTH-A" /> <statusCode code="completed" /> <effectiveTime value="680835974498" /> <value unit="pg/mL" xsi:type="PQ" value="7.5" /> <referenceRange& gt; <observationRange> <text>NRG</text&gt ; </observationRange> </referenceRange> & lt;/observation> </component> </organizer> </entry&gt ; <entry> <organizer moodCode="EVN" classCode=" BATTERY"> <templateId root="2.16.840.1.418517.10.20.22.4.1& quot; /> <id nullFlavor="NA" /> <code codeSystem ="local" code="LESTRA-A" displayName="L750.3828" / > <statusCode code="completed" /> <component&gt ; <observation moodCode="EVN" classCode="OBS"> <templateId root="2.16.840.1.249927.10.20.22.4.2" /> <id nullFlavor="NA" /> <code codeSystem=& quot;local" code="902.7575" displayName="Estradiol - AMS& quot; /> <statusCode code="completed" /> & lt;effectiveTime value="927096914470" /> <value unit=& quot;pg/mL" xsi:type="PQ" value="164" /> & lt;referenceRange> <observationRange> <text& gt;NRG</text> </observationRange></referenceRange> </observation> </component> </organizer> < /entry> <entry> <organizer moodCode="EVN" classCode=& quot;BATTERY"> <templateId root=" 2.16.840.1.696790.10.20.22.4.1" /> <id nullFlavor="NA&quot ; /> <code codeSystem="local" code="LFSHLH-A" displayName="L750.4175" /> <statusCode code="completed " /> <component> <observation moodCode="EVN& quot; classCode="OBS"> <templateId root=" 2.16.840.1.200002.10.20.22.4.2" /> <id nullFlavor="NA& quot; /> <code codeSystem="local" code="902.9125& quot; displayName="FSH Follicle Stim Horm - AMS" /> < statusCode code="completed" /> <effectiveTime value=" 426098656181" /> <value unit="mIU/mL" xsi:type=& quot;PQ" value="4.1" /> <referenceRange> <observationRange> <text>NRG</text> </observationRange> </referenceRange> </ observation> </component> <component> < observation moodCode="EVN" classCode="OBS"> < templateId root="2.16.840.1.606448.10.20.22.4.2" /> < id nullFlavor="NA" /> <code codeSystem="local&quot ; code="903.3670" displayName="LH Luteinizing Hormone - AMS&quot ; /> <statusCode code="completed" />< effectiveTime value="777481596345" /> <value unit=&quot ;mIU/mL" xsi:type="PQ" value="9.9" /> < referenceRange> <observationRange> <text> NRG</text> </observationRange> </referenceRange> </observation> </component> </organizer> </ entry> <entry> <organizer moodCode="EVN" classCode=& quot;BATTERY"> <templateId root=" 2.16.840.1.529780.10.20.22.4.1" /> <id nullFlavor="NA&quot ; /> <code codeSystem="local" code="LCORTB-A" displayName="L750.2987" /> <statusCode code="completed " /> <component> <observation moodCode="EVN& quot; classCode="OBS"> <templateId root=" 2.16.840.1.435576.10.20.22.4.2" /> <id nullFlavor="NA& quot; /> <code codeSystem="local" code="902.5710& quot; displayName="LCORTB-A" /> <statusCode code=" completed" /> <effectiveTime value="562532353906" /> <value unit="ug/dL" xsi:type="PQ" value=& quot;7" /> <referenceRange> < observationRange> <text>3-20</text> </ observationRange> </referenceRange> </observation&gt ; </component> </organizer> </entry> <entry> <organizer moodCode="EVN" classCode="BATTERY"> <templateId root="2.16.840.1.559573.10.20.22.4.1" /> < id nullFlavor="NA" /> <code codeSystem="local" code="LALDOBA-A" displayName="L750.0340" /> < statusCode code="completed" /> <component> < observation moodCode="EVN" classCode="OBS"> < templateId root="2.16.840.1.181616.10.20.22.4.2" /> < id nullFlavor="NA" /><code codeSystem="local" code=& quot;902.0530" displayName="Aldosterone, Baseline - AMS" /> <statusCode code="completed" /> < effectiveTime value="192444187805" /> <value unit=&quot ;ng/dL" xsi:type="PQ" value="12" /> < referenceRange> <observationRange> <text>& amp;lt;=21</text> </observationRange> </ referenceRange> </observation> </component> </ organizer> </entry> <entry> <organizer moodCode="EVN " classCode="BATTERY"> <templateId root=" 2.16.840.1.684715.10.20.22.4.1" /> <id nullFlavor="NA&quot ; /> <code codeSystem="local" code="AAHWU46-E" displayName="L750.2991" /> <statusCode code="completed " /> <component> <observation moodCode="EVN&quot ; classCode="OBS"> <templateIdroot=" 2.16.840.1.061052.10.20.22.4.2" /> <id nullFlavor="NA& quot; /> <code codeSystem="local" code="902.5720& quot; displayName="UBHDY59-X" /> <statusCode code=&quot ;completed" /> <effectiveTime value="941022197506&quot ; /> <value unit="ug/dL" xsi:type="PQ" value= "27" /> <referenceRange> < observationRange> <text>14-25</text> </ observationRange> </referenceRange> </observation&gt ; </component> </organizer> </entry> <entry> <organizer moodCode="EVN" classCode="BATTERY"> <templateId root="2.16.840.1.142205.10.20.22.4.1" /> < id nullFlavor="NA" /> <code codeSystem="local" code="ELJAE95-S" displayName="L750.2992" /> < statusCode code="completed" /> <component> < observation moodCode="EVN" classCode="OBS"> < templateId root="2.16.840.1.020385.10.20.22.4.2" /> < id nullFlavor="NA" /> <code codeSystem="local&quot ; code="902.5730" displayName="GAMMD72-C" /> < statusCode code="completed" /> <effectiveTime value=& quot;874034873778" /> <value unit="ug/dL" xsi:type ="PQ" value="24" /> <referenceRange> <observationRange> <text>15-30</text> </observationRange> </referenceRange> </ observation> </component> </organizer> </entry> & lt;entry> <organizer moodCode="EVN" classCode="BATTERY& quot;> <templateId root="2.16.840.1.255194.10.20.22.4.1" /& gt; <id nullFlavor="NA" /> <code codeSystem=" local" code="YVSAX24-F" displayName="L750.0360" /> & lt;statusCode code="completed" /> <component> &lt ;observation moodCode="EVN" classCode="OBS"> &lt ;templateId root="2.16.840.1.187401.10.20.22.4.2" /> < id nullFlavor="NA" /> <code codeSystem="local&quot ; code="902.0540" displayName="Aldosterone, 60 Min - AMS" /& gt; <statusCode code="completed" /> < effectiveTime value="532599937408" /> <value unit=&quot ;ng/dL" xsi:type="PQ" value="33" /> < interpretationCode codeSystem="local" code="*" /> & lt;referenceRange> <observationRange> <text& gt;<=21</text> </observationRange> </ referenceRange> </observation> </component> </ organizer> </entry> <entry> <organizer moodCode="EVN " classCode="BATTERY"> <templateId root=" 2.16.840.1.653501.10.20.22.4.1" /> <id nullFlavor="NA&quot ; /> <code codeSystem="local" code="LCBC" displayName="L100.0050" /> <statusCode code="completed " /> <component> <observation moodCode="EVN& quot; classCode="OBS"> <templateId root=" 2.16.840.1.473084.10.20.22.4.2" /> <id nullFlavor="NA& quot; /> <code codeSystem="local" code="100.0150& quot; displayName="WBC - WHITE BLOOD COUNT" /> < statusCode code="completed" /> <effectiveTime value=& quot;377276182701" /> <value unit="T/MM3" xsi:type ="PQ" value="13.0" /> <interpretationCode codeSystem="local" code="*" /> < referenceRange> <observationRange> <text> 4.5-11.0</text> </observationRange> </ referenceRange> </observation> </component> < component> <observation moodCode="EVN" classCode=" OBS"> <templateId root="2.16.840.1.850337.10.20.22.4.2& quot; /> <id nullFlavor="NA" /> <code codeSystem="local" code="100.0250" displayName="RED BLOOD COUNT" /> <statusCode code="completed" /&gt ; <effectiveTime value="693074572301" /> < value unit="M/MM3" xsi:type="PQ" value="4.98" /&gt ; <referenceRange> <observationRange> <text>4.00-5.20</text> </observationRange> < /referenceRange> </observation> </component> &lt ;component> <observation moodCode="EVN" classCode=" OBS"> <templateId root="2.16.840.1.381918.10.20.22.4.2& quot; /> <id nullFlavor="NA" /> <code codeSystem="local" code="100.0300" displayName="HGB - HEMOGLOBIN" /> <statusCode code="completed" /> <effectiveTime value="486289986150" /> < value unit="GM/DL" xsi:type="PQ" value="13.8" /&gt ; <referenceRange> <observationRange> <text>12-16</text> </observationRange> </referenceRange> </observation> </component> <component> <observation moodCode="EVN" classCode= "OBS"> <templateId root=" 2.16.840.1.598111.10.20.22.4.2" /> <id nullFlavor="NA& quot; /> <code codeSystem="local" code="100.0400& quot; displayName="HCT - HEMATOCRIT" /> <statusCode code="completed" /> <effectiveTime value=" 381382245960" /> <value unit="%" xsi:type= "PQ" value="41.2" /> <referenceRange> <observationRange> <text>36-46</text> </observationRange> </referenceRange> </ observation> </component><component> <observation moodCode="EVN" classCode="OBS"> <templateId root=& quot;2.16.840.1.138557.10.20.22.4.2" /> <id nullFlavor=&quot ;NA" /> <code codeSystem="local" code=" 100.0550" displayName="MEAN CORPUSCULAR VOLUME" /> & lt;statusCode code="completed" /> <effectiveTime value= "677806924440" /> <value unit="UM3" xsi:type= "PQ" value="82.7" /> <referenceRange>< observationRange> <text>80-100</text> &lt ;/observationRange> </referenceRange> </observation& gt; </component> <component> <observation moodCode="EVN" classCode="OBS"> <templateId root="2.16.840.1.915009.10..22.4.2" /> <id nullFlavor ="NA" /> <code codeSystem="local" code=" 100.0600" displayName="MEAN CORPUSCULAR HGB" /> < statusCode code="completed" /> <effectiveTime value=" 919030738041" /> <value unit="UUG" xsi:type=" PQ" value="27.7" /> <referenceRange> <observationRange> <text>26-34</text> </observationRange> </referenceRange> </ observation> </component> <component> < observation moodCode="EVN" classCode="OBS"> < templateId root="2.16.840.1.153897.10.20.22.4.2" /> < id nullFlavor="NA"/> <code codeSystem="local&quot ; code="100.0650" displayName="MEAN CORPUSCULAR HGB CONC([facility]& quot; /> <statusCode code="completed" /> < effectiveTime value="903510419386" /> <value unit=&quot ;GM/DL"xsi:type="PQ" value="33.5" /> < referenceRange> <observationRange> <text> 31-37</text> </observationRange> </ referenceRange> </observation> </component> < component> <observation moodCode="EVN" classCode=" OBS"> <templateId root="2.16.840.1.364889.10.20.22.4.2& quot; /> <id nullFlavor="NA" /> <code codeSystem="local" code="100.0750" displayName="RDW STANDARD DEVIATION" /> <statusCode code="completed&quot ; /> <effectiveTime value="450493914632" /> <value unit="FL" xsi:type="PQ" value="43.5" / > <referenceRange> <observationRange> <text>36.9-50.2</text> </observationRange> </referenceRange> </observation> </component> <component> <observation moodCode="EVN" classCode="OBS"> <templateId root=" 2.16.840.1.650948.10.20.22.4.2" /> <id nullFlavor="NA& quot; /> <code codeSystem="local" code="100.0850& quot; displayName="PLT - PLATELET COUNT" /> < statusCode code="completed" /> <effectiveTime value=& quot;381938980304" /> <value unit="T/MM3" xsi:type ="PQ" value="339" /> <referenceRange> <observationRange> <text>130-400</text> </observationRange> </referenceRange> &lt ;/observation> </component> <component> < observation moodCode="EVN" classCode="OBS"> < templateId root="2.16.840.1.157717.10.20.22.4.2" /> < id nullFlavor="NA" /> <code codeSystem="local" code="100.0950" displayName="MEAN PLATELET VOLUME" /> <statusCode code="completed" /> < effectiveTime value="843087748694" /> <value unit=&quot ;UM3" xsi:type="PQ" value="9.2" /> < interpretationCode codeSystem="local" code="*" /> <referenceRange> <observationRange> < text>9.4-12.4</text> </observationRange> < /referenceRange> </observation> </component> &lt ;component> <observation moodCode="EVN" classCode=" OBS"> <templateId root="2.16.840.1.176039.10.20.22.4.2& quot; /> <id nullFlavor="NA" /> <code codeSystem="local" code="100.1050" displayName=" NEUTROPHILS % (AUTO)" /> <statusCode code=" completed" /> <effectiveTime value="358371128142" /> <value unit="%" xsi:type="PQ" value="67.7" /> <interpretationCode codeSystem=" local" code="*" /> <referenceRange> <observationRange> <text>33-66</text> </observationRange> </referenceRange> </ observation> </component> <component> < observation moodCode="EVN" classCode="OBS"> < templateId root="2.16.840.1.180283.10.20.22.4.2" /> < id nullFlavor="NA" /> <code codeSystem="local&quot ; code="100.1100" displayName="LYMPHOCYTES % (AUTO)&quot ; /> <statusCode code="completed" /> < effectiveTime value="345173591544" /> <value unit=&quot ;%" xsi:type="PQ" value="21.7" /> & lt;interpretationCode codeSystem="local" code="*" /> <referenceRange> <observationRange> & lt;text>23-45</text> </observationRange> < /referenceRange> </observation> </component> &lt ;component> <observation moodCode="EVN" classCode=" OBS"> <templateId root="2.16.840.1.090956.10.20.22.4.2& quot; /> <id nullFlavor="NA" /> <code codeSystem="local" code="100.1150" displayName=" MONOCYTES % (AUTO)" /> <statusCode code=" completed" /> <effectiveTime value="920828873498"/ > <value unit="%" xsi:type="PQ" value ="5.2" /> <referenceRange> < observationRange> <text>0-9.0</text> < /observationRange> </referenceRange> </observation& gt; </component> <component> <observation moodCode="EVN" classCode="OBS"> <templateId root="2.16.840.1.645993.10.20.22.4.2" /> <id nullFlavor ="NA" /> <code codeSystem="local" code=" 100.1200" displayName="EOSINOPHILS % (AUTO)" /> <statusCode code="completed" /> <effectiveTime value="359542507318" /> <value unit="%& quot; xsi:type="PQ" value="4.7" /> < interpretationCode codeSystem="local" code="*" /> < referenceRange> <observationRange> <text> 0-4</text> </observationRange> </ referenceRange> </observation> </component> < component> <observation moodCode="EVN" classCode=" OBS"> <templateId root="2.16.840.1.323946.10.20.22.4.2& quot; /> <id nullFlavor="NA" /> <code codeSystem="local" code="100.1250" displayName=" BASOPHILS % (AUTO)" /> <statusCode code=" completed" /> <effectiveTime value="316994710787" /> <value unit="%" xsi:type="PQ" value=& quot;0.2" /> <referenceRange> <observationRange> <text>0-2</text> </observationRange> </referenceRange> </observation> </component& gt; <component> <observation moodCode="EVN" classCode="OBS"> <templateId root=" 2.16.840.1.972195.10.20.22.4.2" /> <id nullFlavor="NA& quot; /> <code codeSystem="local" code="100.1275& quot; displayName="IMMATURE GRANULOCYTE % (AUTO)" /> <statusCode code="completed" /> <effectiveTime value="[id number]"/> <value unit="%&quot ; xsi:type="PQ" value="0.5" /> < referenceRange> <observationRange> <text> 0.0-0.5</text> </observationRange> </ referenceRange> </observation> </component> < component> <observation moodCode="EVN" classCode=" OBS"> <templateId root="[id number]& quot; /> <id nullFlavor="NA" /> <code codeSystem="local" code="100.1300" displayName=" NEUTROPHILS # (AUTO)" /> <statusCode code="completed& quot; /> <effectiveTime value="[id number]" /> <value unit="T/MM3" xsi:type="PQ" value="8.8& quot; /> <interpretationCode codeSystem="local" code=" *" /> <referenceRange> <observationRange&gt ; <text>1.8-7.7</text> </observationRange> </referenceRange> </observation> </component > <component> <observation moodCode="EVN" classCode="OBS"> <templateId root=" 2.16.840.1.362986.10.20.22.4.2" /> <id nullFlavor="NA" /& gt; <code codeSystem="local" code="100.1350" displayName="LYMPHOCYTES # (AUTO)" /> <statusCode code= "completed" /> <effectiveTime value="[id number]& quot; /> <value unit="T/MM3" xsi:type="PQ" value="2.8" /> <referenceRange> < observationRange> <text>1-4.8</text> < /observationRange> </referenceRange> </observation& gt; </component> <component> <observation moodCode="EVN" classCode="OBS"> <templateId root="2.16.840.1.216720.10.20.22.4.2" /> <id nullFlavor ="NA" /> <code codeSystem="local" code=" 100.1400" displayName="MONOCYTES # (AUTO)" /> < statusCode code="completed" /> <effectiveTime value=& quot;700714994863" /> <value unit="T/MM3" xsi:type ="PQ" value="0.7" /> <referenceRange> <observationRange> <text>0-0.8</text> </observationRange> </referenceRange> </ observation> </component> <component> < observation moodCode="EVN" classCode="OBS"> < templateId root="2.16.840.1.856703.10.20.22.4.2" /> < id nullFlavor="NA" /> <code codeSystem="local&quot ; code="100.1450" displayName="EOSINOPHILS # (AUTO)" /> <statusCode code="completed" /> < effectiveTime value="592357212234" /> <value unit=&quot ;T/MM3" xsi:type="PQ" value="0.6" /> < interpretationCode codeSystem="local" code="*" /> <referenceRange> <observationRange> < text>0-0.5</text> </observationRange></ referenceRange> </observation> </component> < component> <observation moodCode="EVN" classCode="OBS& quot;> <templateId root="2.16.840.1.158213.10.20.22.4.2&quot ; /> <id nullFlavor="NA" /> <code codeSystem="local" code="100.1500" displayName=" BASOPHILS# (AUTO)" /> <statusCode code="completed&quot ; /> <effectiveTime value="801201129990" /> <value unit="T/MM3" xsi:type="PQ" value="0.0&quot ; /> <referenceRange> <observationRange> <text>0-0.2</text> </observationRange> </referenceRange> </observation> </component& gt; <component> <observation moodCode="EVN" classCode="OBS"> <templateId root=" 2.16.840.1.231316.10.20.22.4.2" /> <id nullFlavor="NA& quot; /> <code codeSystem="local" code="100.1525& quot; displayName="IMMATURE GRANULOCYTE # (AUTO)" /> < statusCode code="completed" /> <effectiveTime value=& quot;741288840181" /> <value unit="T/MM3" xsi:type ="PQ" value="0.06" /> <interpretationCode codeSystem="local" code="*" /> < referenceRange> <observationRange> <text>0.00-0.03< /text> </observationRange> </referenceRange> </observation> </component> </organizer> < /entry> <entry> <organizer moodCode="EVN" classCode=& quot;BATTERY"> <templateId root=" 2.16.840.1.859272.10.20.22.4.1" /> <id nullFlavor="NA&quot ; /> <code codeSystem="local" code="LCMP" displayName="L200.0020" /> <statusCode code="completed " /> <component> <observation moodCode="EVN& quot; classCode="OBS"> <templateId root=" 2.16.840.1.562690.10.20.22.4.2" /> <id nullFlavor="NA& quot; /> <codecodeSystem="local" code="300.0400& quot; displayName="FUNGAL CULTURE." /> <statusCode code= "completed" /> <effectiveTime value="215278248327& quot; /> <value unit="MG/DL" xsi:type="PQ" value="1.1" /> <referenceRange> < observationRange> <text>0.7-1.2</text> & lt;/observationRange> </referenceRange> </observation> </component> <component> <observation moodCode= "EVN" classCode="OBS"> <templateId root=&quot ;2.16.840.1.808044.10.20.22.4.2" /> <id nullFlavor="NA& quot; /> <code codeSystem="local" code="300.0450& quot; displayName="FUNGAL CULTURE, BLOOD." /> <statusCode code="completed" /> <effectiveTime value=" 361521433405" /> <value unit="RATIO" xsi:type=& quot;PQ" value="10" /> <referenceRange> <observationRange> <text>6-26</text> </observationRange> </referenceRange> </ observation> </component> <component> < observation moodCode="EVN" classCode="OBS"> < templateId root="2.16.840.1.857436.10.20.22.4.2" /> < id nullFlavor="NA" /> <code codeSystem="local&quot ; code="300.0100" displayName="NA - Sodium" /> & lt;statusCode code="completed" /> <effectiveTime value= "003527992072" /> <value unit="MEQ/L" xsi:type=& quot;PQ" value="141" /> <referenceRange> <observationRange> <text>134-144</text> </observationRange> </referenceRange> </ observation> </component> <component> < observation moodCode="EVN" classCode="OBS"> < templateId root="2.16.840.1.342699.10.20.22.4.2" /> < id nullFlavor="NA" /> <code codeSystem="local&quot ; code="300.0150" displayName="Potassium" /> &lt ;statusCode code="completed" /> <effectiveTime value=& quot;260948785434" /> <value unit="MEQ/L" xsi:type ="PQ" value="4.1" /> <referenceRange> <observationRange> <text>3.6-5</text> </observationRange> </referenceRange> </ observation> </component> <component> < observation moodCode="EVN" classCode="OBS"> < templateId root="2.16.840.1.752926.10.20.22.4.2" /> < id nullFlavor="NA" /> <code codeSystem="local&quot ; code="300.0200" displayName="Chloride" /> < statusCode code="completed" /> <effectiveTime value=" 754412301078" /> <value unit="MEQ/L" xsi:type=& quot;PQ" value="106" /> <referenceRange> <observationRange> <text>98-107</text> </observationRange> </referenceRange> </ observation> </component> <component> < observation moodCode="EVN" classCode="OBS"> < templateId root="2.16.840.1.443814.10.20.22.4.2" /> < id nullFlavor="NA" /> <code codeSystem="local&quot ; code="300.0250" displayName="CO2 - Carbon Dioxide" /> <statusCode code="completed" /> < effectiveTime value="738253583447" /> <value unit=&quot ;MEQ/L" xsi:type="PQ" value="23" /> < referenceRange> <observationRange> <text> 22-30</text> </observationRange> </referenceRange&gt ; </observation> </component> <component> <observation moodCode="EVN" classCode="OBS"> <templateId root="2.16.840.1.860641.10.20.22.4.2" /> <id nullFlavor="NA" /> <code codeSystem=" local" code="300.0300" displayName="Anion Gap" /> <statusCode code="completed" /> < effectiveTime value="320537596008" /> <value unit=&quot ;MEQ/L" xsi:type="PQ" value="12" /> < referenceRange> <observationRange> <text>5-15< /text> </observationRange> </referenceRange> </observation> </component> <component> <observation moodCode="EVN" classCode="OBS"> <templateId root="2.16.840.1.992169.10.20.22.4.2" /> <id nullFlavor="NA" /> <code codeSystem=" local" code="300.0350" displayName="BUN - Blood Urea Nitrogen" /> <statusCode code="completed" /> <effectiveTime value="185717369665" /> < value unit="MG/DL" xsi:type="PQ" value="11.0" /&gt ; <referenceRange> <observationRange> <text >7-17</text> </observationRange> </ referenceRange> </observation> </component> < component> <observation moodCode="EVN" classCode=" OBS"> <templateId root="2.16.840.1.098912.10..22.4.2& quot; /> <id nullFlavor="NA" /> <code codeSystem="local" code="300.0410" displayName=" Glomerular Filtration Rate" /> <statusCode code=" completed" /> <effectiveTime value="648742658888" /> <value unit="" xsi:type="PQ" value=" 58" /> <referenceRange> <observationRange& gt; <text>NRG</text> </observationRange& gt; </referenceRange> </observation> </ component> <component> <observation moodCode="EVN& quot; classCode="OBS"> <templateId root=" 2.16.840.1.167696.10..22.4.2" /> <id nullFlavor="NA& quot; /> <code codeSystem="local" code="300.0500& quot; displayName="Glucose" /> <statusCode code=" completed" /> <effectiveTime value="576216417992" /> <value unit="MG/DL" xsi:type="PQ" value=&quot ;94" /> <referenceRange> <observationRange& gt; <text>65-110</text> </ observationRange> </referenceRange> </observation&gt ; </component> <component> <observation moodCode=& quot;EVN" classCode="OBS"> <templateId root=" 2.16.840.1.825782.10.20.22.4.2" /> <id nullFlavor="NA& quot; /> <code codeSystem="local" code="300.2000& quot; displayName="Osmolality,Calculated" /> < statusCode code="completed" /> <effectiveTime value=& quot;502122308001" /><value unit="MOSM/KG" xsi:type=" PQ" value="270" /> <referenceRange> <observationRange> <text>261-280</text> </observationRange> </referenceRange> </ observation> </component> <component> < observation moodCode="EVN" classCode="OBS"> < templateId root="2.16.840.1.714877.10.20.22.4.2" /> <id nullFlavor="NA" /> <code codeSystem="local" code="300.2200" displayName="Calcium" /> < statusCode code="completed" /> <effectiveTime value=& quot;356657557592" /> <value unit="MG/DL" xsi:type ="PQ" value="8.9" /> <referenceRange> <observationRange> <text>8.4-10.2</text> </observationRange> </referenceRange> < /observation> </component> <component> < observation moodCode="EVN" classCode="OBS"> < templateId root="2.16.840.1.696004.10.20.22.4.2" /> < id nullFlavor="NA" /> <code codeSystem="local&quot ; code="300.2700" displayName="Bilirubin,Total" /> <statusCode code="completed" /> <effectiveTime value="012663356210" /> <value unit="MG/DL" xsi:type="PQ" value="0.40" /> <referenceRange > <observationRange> <text>0.20-1.30</text> </observationRange> </referenceRange> < /observation> </component> <component> < observation moodCode="EVN" classCode="OBS"> < templateId root="2.16.840.1.623482.10..22.4.2" /> < id nullFlavor="NA" /> <code codeSystem="local&quot ; code="300.2975" displayName="Alkaline Phosphatase" /> <statusCode code="completed" /> < effectiveTime value="597174665151" /> <value unit=&quot ;U/L" xsi:type="PQ" value="81" /> < referenceRange> <observationRange> <text> 38-126</text> </observationRange> </ referenceRange> </observation> </component> < component> <observation moodCode="EVN" classCode=" OBS"> <templateId root="2.16.840.1.763909.10.20.22.4.2& quot; /> <id nullFlavor="NA" /> <code codeSystem="local" code="300.3050" displayName="AST - Aspartate Amino Transfer" /> <statusCode code=" completed" /> <effectiveTime value="412075159574" /& gt; <value unit="U/L" xsi:type="PQ" value=" 17" /> <referenceRange> <observationRange& gt; <text>14-36</text> </observationRange > </referenceRange> </observation> </ component> <component> <observation moodCode="EVN& quot; classCode="OBS"> <templateId root=" 2.16.840.1.447617.10.20.22.4.2" /> <id nullFlavor="NA& quot; /> <code codeSystem="local" code="300.3100& quot; displayName="ALT" /> <statusCode code=" completed" /> <effectiveTime value="444914698216" /> <value unit="U/L" xsi:type="PQ" value=& quot;37" /> <referenceRange> < observationRange> <text>9-52</text> </ observationRange> </referenceRange> </observation&gt ; </component> <component> <observationmoodCode= "EVN" classCode="OBS"> <templateId root=&quot ;2.16.840.1.334574.10.20.22.4.2" /> <id nullFlavor="NA& quot; /> <code codeSystem="local" code="300.3110& quot; displayName="TP - Total Protein" /> <statusCode code="completed" /> <effectiveTime value=" 914561377698" /> <value unit="G/DL" xsi:type=&quot ;PQ" value="7.4" /> <referenceRange> <observationRange> <text>6.3-8.2</text> </observationRange> </referenceRange> </observation > </component> <component> <observation moodCode="EVN" classCode="OBS"> <templateId root="2.16.840.1.157793.10.20.22.4.2" /> <id nullFlavor ="NA" /> <code codeSystem="local" code=" 300.3120" displayName="Albumin Level" /> < statusCode code="completed" /> <effectiveTime value=& quot;593647284038"/> <value unit="G/DL" xsi:type=& quot;PQ" value="4.2" /> <referenceRange> <observationRange> <text>3.5-5.0</text> </observationRange> </referenceRange> </ observation> </component> <component> < observation moodCode="EVN" classCode="OBS"> < templateId root="2.16.840.1.210701.10.20.22.4.2" /> < id nullFlavor="NA" /> <code codeSystem="local&quot ; code="300.3130" displayName="Globulin" /> < statusCode code="completed" /> <effectiveTime value=& quot;085784002464" /> <value unit="G/DL" xsi:type= "PQ" value="3.2" /> <referenceRange> <observationRange> <text>2.4-3.6</text> </observationRange> </referenceRange> </ observation> </component> <component> < observation moodCode="EVN" classCode="OBS"> < templateId root="2.16.840.1.034690.10.20.22.4.2" /> < id nullFlavor="NA" /> <code codeSystem="local&quot ; code="300.3140" displayName="Albumin/Globulin Ratio" /&gt ; <statusCode code="completed" /> < effectiveTime value="113162127732" /> <value unit=&quot ;RATIO" xsi:type="PQ" value="1.3" /> < referenceRange> <observationRange> <text> 1.1-2.2</text> </observationRange> </ referenceRange> </observation> </component> < component> <observation moodCode="EVN" classCode=" OBS"> <templateId root="2.16.840.1.938354.10.20.22.4.2& quot; /> <id nullFlavor="NA" /> <code codeSystem="local" code="300.0095" displayName=" LICTERUS" /> <statusCode code="completed" /> <effectiveTime value="161063476851" /> < value unit="" xsi:type="PQ" value="< 2" /& gt; <referenceRange> <observationRange> < text>0-7</text> </observationRange> </ referenceRange> </observation> </component> < component> <observation moodCode="EVN" classCode=" OBS"> <templateId root="2.16.840.1.199439.10.20.22.4.2& quot; /> <id nullFlavor="NA" /> <code codeSystem="local" code="300.0096" displayName=" LHEMOLYSIS" /> <statusCode code="completed" /> <effectiveTime value="652275079773" /> < value unit="" xsi:type="PQ" value="< 15" /& gt; <referenceRange> <observationRange> <text>0-25</text> </observationRange> </referenceRange> </observation> </component> <component> <observation moodCode="EVN" classCode=& quot;OBS"> <templateId root=" 2.16.840.1.762342.10.20.22.4.2" /> <id nullFlavor="NA& quot; /> <code codeSystem="local" code="300.0097&quot ; displayName="LTURBIDITY" /> <statusCode code=" completed" /> <effectiveTime value="438000563346" /> <value unit="" xsi:type="PQ" value="& amp;lt; 20" /> <referenceRange> < observationRange> <text>0-20</text> </ observationRange> </referenceRange> </observation&gt ; </component> </organizer> </entry> <entry> <organizer moodCode="EVN" classCode="BATTERY"> <templateId root="2.16.840.1.081614.10.20.22.4.1" /> < id nullFlavor="NA" /> <code codeSystem="local" code="LMAG" displayName="L200.2000"/> < statusCode code="completed" /> <component> < observation moodCode="EVN" classCode="OBS"> < templateId root="2.16.840.1.157051.10.20.22.4.2" /> < id nullFlavor="NA" /> <code codeSystem="local&quot ; code="300.2350" displayName="MAG - Magnesium" /> <statusCode code="completed" /> <effectiveTime value="143937243229" /> <value unit="MG/DL" xsi:type="PQ" value="1.9" /> <referenceRange& gt; <observationRange> <text>1.6-2.3</ text> </observationRange> </referenceRange> </observation> </component> </organizer> </entry > <entry> <organizer moodCode="EVN" classCode=" BATTERY"> <templateId root="2.16.840.1.048153.10.20.22.4.1& quot; /> <id nullFlavor="NA" /> <code codeSystem ="local" code="LLDH" displayName="L200.1855" /&gt ; <statusCode code="completed" /> <component> <observation moodCode="EVN" classCode="OBS"> <templateId root="2.16.840.1.861872.10.20.22.4.2" /> & lt;id nullFlavor="NA" /> <code codeSystem="local& quot; code="300.3250" displayName="LDH - Lactate Dehydrogenase& quot; /> <statusCode code="completed" /> & lt;effectiveTime value="501550414752" /> <value unit=& quot;U/L" xsi:type="PQ" value="351" /> < referenceRange> <observationRange> <text> 313-598</text> </observationRange> </ referenceRange> </observation> </component> </ organizer> </entry> <entry> <organizer moodCode="EVN& quot; classCode="BATTERY"> <templateId root=" 2.16.840.1.489886.10.20.22.4.1" /> <id nullFlavor="NA&quot ; /> <code codeSystem="local" code="LTSH" displayName="L200.3850" /> <statusCode code="completed&quot ; /> <component> <observation moodCode="EVN" classCode="OBS"> <templateId root=" 2.16.840.1.610762.10.20.22.4.2" /> <id nullFlavor="NA& quot; /> <code codeSystem="local" code="300.5500& quot; displayName="TSH - Thyroid Stim Hormone" /> < statusCode code="completed" /> <effectiveTime value=& quot;391404644874" /> <value unit="MIU/L" xsi:type ="PQ" value="32.50" /> <interpretationCode codeSystem="local" code="" /> < referenceRange> <observationRange> <text> 0.47-4.68</text> </observationRange> </ referenceRange> </observation> </component> </ organizer> </entry> <entry> <organizer moodCode="EVN " classCode="BATTERY"> <templateId root=" 2.16.840.1.948885.10.20.22.4.1" /> <id nullFlavor="NA&quot ; /> <code codeSystem="local" code="LACTH-A" displayName="L750.0200" /> <statusCode code="completed " /> <component> <observation moodCode="EVN& quot; classCode="OBS"> <templateId root=" 2.16.840.1.192715.10..22.4.2" /> <id nullFlavor="NA& quot; /> <code codeSystem="local" code="902.0325& quot; displayName="LACTH-A" /> <statusCode code=" completed" /> <effectiveTime value="308202788316" /> <value unit="pg/mL" xsi:type="PQ" value=&quot ;10" /> <referenceRange> <observationRange& gt; <text>NRG</text> </observationRange&gt ; </referenceRange> </observation> </component&gt ; </organizer> </entry> <entry> <organizer moodCode ="EVN" classCode="BATTERY"> <templateId root=& quot;2.16.840.1.153172.10.20.22.4.1" /> <id nullFlavor="NA& quot; /> <code codeSystem="local" code="LCORTA-A&quot ; displayName="L750.2985" /> <statusCode code=" completed" /> <component> <observation moodCode=& quot;EVN" classCode="OBS"> <templateId root=" 2.16.840.1.293365.10.20.22.4.2" /> <id nullFlavor="NA& quot; /> <code codeSystem="local" code="902.5650& quot; displayName="Cortisol AM, Serum - AMS" /> < statusCodecode="completed" /> <effectiveTime value=& quot;512638424571" /> <value unit="ug/dL" xsi:type=& quot;PQ" value="5" /> <referenceRange> <observationRange> <text>3-20</text> & lt;/observationRange> </referenceRange> </ observation> </component> </organizer> </entry> & lt;entry> <organizer moodCode="EVN" classCode="BATTERY& quot;> <templateId root="2.16.840.1.116796.10.20.22.4.1" /& gt; <id nullFlavor="NA" /> <code codeSystem=" local" code="LT4F" displayName="L200.3600" /> & lt;statusCode code="completed" /> <component> &lt ;observation moodCode="EVN" classCode="OBS"> &lt ;templateId root="2.16.840.1.984074.10.20.22.4.2" /> <id nullFlavor="NA" /> <code codeSystem="local" code="300.5250" displayName="Free T4 (Free Thyroxine)-Batch&quot ; /> <statusCodecode="completed" /> < effectiveTime value="858294094247" /> <value unit="NG/ DL" xsi:type="PQ" value="0.86" /> < referenceRange> <observationRange> <text> 0.78-2.19</text> </observationRange> </ referenceRange> </observation> </component> </ organizer> </entry> <entry> <organizer moodCode="EVN " classCode="BATTERY"> <templateId root=" 2.16.840.1.359545.10.20.22.4.1" /> <id nullFlavor="NA&quot ; /> <code codeSystem="local" code="LCBC" displayName="L100.0050" /> <statusCode code="completed " /> <component> <observation moodCode="EVN& quot; classCode="OBS"> <templateId root=" 2.16.840.1.241636.10.20.22.4.2" /> <id nullFlavor="NA& quot; /> <code codeSystem="local" code="100.0150& quot; displayName="WBC - WHITE BLOOD COUNT" /> < statusCode code="completed" /> <effectiveTime value=& quot;963456622312" /> <value unit="T/MM3" xsi:type=& quot;PQ" value="14.6" /><interpretationCode codeSystem=& quot;local" code="*" /> <referenceRange> <observationRange> <text>4.5-11.0</text> & lt;/observationRange> </referenceRange> </ observation> </component> <component> < observation moodCode="EVN" classCode="OBS"> < templateId root="2.16.840.1.979350.10.20.22.4.2" /> < id nullFlavor="NA" /> <code codeSystem="local&quot ; code="100.0250" displayName="RED BLOOD COUNT" /> <statusCode code="completed" /> <effectiveTime value="728931465787" /> <value unit="M/MM3" xsi:type="PQ" value="4.99" /> <referenceRange > <observationRange> <text>4.00-5.20</ text> </observationRange> </referenceRange> </observation> </component> <component> <observation moodCode="EVN" classCode="OBS"> <templateId root="2.16.840.1.694661.10.20.22.4.2" /> <id nullFlavor="NA" /> <code codeSystem=" local" code="100.0300"displayName="HGB - HEMOGLOBIN" /& gt; <statusCode code="completed" /> < effectiveTime value="276633882626" /> <value unit=&quot ;GM/DL" xsi:type="PQ" value="13.7" /> < referenceRange> <observationRange> <text>12-16< /text> </observationRange> </referenceRange> </observation> </component> <component> <observation moodCode="EVN" classCode="OBS"> < templateId root="2.16.840.1.721602.10.20.22.4.2" /> < id nullFlavor="NA" /> <code codeSystem="local&quot ; code="100.0400" displayName="HCT - HEMATOCRIT" /> <statusCode code="completed" /> <effectiveTime value=& quot;781871253828" /> <value unit="%" xsi: type="PQ" value="41.5" /> <referenceRange&gt ; <observationRange> <text>36-46</text&gt ; </observationRange> </referenceRange> & lt;/observation> </component> <component> < observation moodCode="EVN" classCode="OBS"> < templateId root="2.16.840.1.524312.10.20.22.4.2" /> < id nullFlavor="NA" /> <code codeSystem="local&quot ; code="100.0550" displayName="MEAN CORPUSCULAR VOLUME" /&gt ; <statusCode code="completed" /> <effectiveTime value="782049276609" /> <value unit="UM3" xsi :type="PQ" value="83.2" /> <referenceRange&gt ; <observationRange> <text>80-100</text& gt; </observationRange> </referenceRange> < /observation> </component> <component> < observation moodCode="EVN" classCode="OBS"> < templateId root="2.16.840.1.927323.10.20.22.4.2" /> < id nullFlavor="NA" /> <code codeSystem="local&quot ; code="100.0600" displayName="MEANCORPUSCULAR HGB" /> <statusCode code="completed" /> < effectiveTime value="154785917924" /> <value unit=&quot ;UUG" xsi:type="PQ" value="27.5" /> < referenceRange> <observationRange> <text> 26-34</text> </observationRange> </ referenceRange> </observation> </component> < component> <observation moodCode="EVN" classCode="OBS" > <templateId root="2.16.840.1.705338.10..22.4.2" /& gt; <id nullFlavor="NA" /> <code codeSystem=& quot;local" code="100.0650" displayName="MEAN CORPUSCULAR HGB CONC(MCHC" /> <statusCode code="completed" /& gt; <effectiveTime value="583167753573" /> &lt ;value unit="GM/DL" xsi:type="PQ" value="33.0" /& gt; <referenceRange> <observationRange> <text>31-37</text> </observationRange> </referenceRange> </observation> </component> <component> <observation moodCode="EVN" classCode=& quot;OBS"> <templateId root=" 2.16.840.1.332773.10..22.4.2" /> <id nullFlavor="NA& quot; /> <code codeSystem="local" code="100.0750& quot; displayName="RDW STANDARD DEVIATION" /> < statusCode code="completed" /> <effectiveTime value=& quot;608570137537" /> <value unit="FL" xsi:type=& quot;PQ" value="44.0" /> <referenceRange> <observationRange> <text>36.9-50.2</text> </observationRange> </referenceRange> & lt;/observation> </component> <component>< observation moodCode="EVN" classCode="OBS"> < templateId root="2.16.840.1.038669.10.20.22.4.2" /> < id nullFlavor="NA" /> <code codeSystem="local" code ="100.0850" displayName="PLT - PLATELETCOUNT" /> <statusCode code="completed" /> <effectiveTime value="597038264095" /> <value unit="T/MM3" xsi:type="PQ" value="309" /> <referenceRange& gt; <observationRange> <text>130-400</text& gt; </observationRange> </referenceRange> </observation> </component> <component> &lt ;observation moodCode="EVN" classCode="OBS"> &lt ;templateId root="2.16.840.1.130854.10.20.22.4.2" /> < id nullFlavor="NA" /> <code codeSystem="local&quot ; code="100.0950" displayName="MEAN PLATELET VOLUME" /> <statusCode code="completed" /> < effectiveTime value="207724420338" /> <value unit=&quot ;UM3" xsi:type="PQ" value="9.2" /> < interpretationCode codeSystem="local" code="*" /> <referenceRange> <observationRange> < text>9.4-12.4</text> </observationRange> < /referenceRange> </observation> </component> &lt ;component> <observation moodCode="EVN" classCode=" OBS"> <templateId root="[id number]& quot; /> <id nullFlavor="NA" /> <code codeSystem="local" code="100.1050" displayName=" NEUTROPHILS % (AUTO)" /> <statusCode code=" completed" /> <effectiveTime value="[id number]" /> <value unit="%" xsi:type="PQ" value="70.3" /> <interpretationCode codeSystem=" local" code="*" /> <referenceRange> <observationRange> <text>33-66</text> </observationRange> </referenceRange> </ observation> </component> <component> < observation moodCode="EVN" classCode="OBS"> < templateId root="[id number]" /> < id nullFlavor="NA" /> <code codeSystem="local&quot ; code="100.1100" displayName="LYMPHOCYTES % (AUTO)&quot ; /> <statusCode code="completed" /> < effectiveTime value="[id number]" /> <value unit=&quot ;%" xsi:type="PQ" value="19.4"/> & lt;interpretationCode codeSystem="local" code="*" />< referenceRange> <observationRange> <text> 23-45</text> </observationRange> </ referenceRange> </observation> </component> < component> <observation moodCode="EVN" classCode=" OBS"> <templateId root="2.16.840.1.663994.10.20.22.4.2& quot; /> <id nullFlavor="NA" /> <code codeSystem="local" code="100.1150" displayName=" MONOCYTES % (AUTO)" /> <statusCodecode=" completed" /> <effectiveTime value="743667779922" /> <value unit="%" xsi:type="PQ" value=& quot;4.8" /> <referenceRange> <observationRange&gt ; <text>0-9.0</text> </observationRange& gt; </referenceRange> </observation> </ component> <component> <observation moodCode="EVN& quot; classCode="OBS"> <templateId root=" 2.16.840.1.544128.10.20.22.4.2" /> <id nullFlavor="NA& quot; /> <code codeSystem="local" code="100.1200& quot; displayName="EOSINOPHILS % (AUTO)" /> < statusCode code="completed" /> <effectiveTime value=& quot;067965541690" /> <value unit="%" xsi: type="PQ" value="4.8" /> <interpretationCode codeSystem="local" code="*" /> < referenceRange> <observationRange> <text> 0-4</text> </observationRange> </referenceRange> </observation> </component> <component> <observation moodCode="EVN" classCode="OBS"> <templateId root="2.16.840.1.485882.10.20.22.4.2" /> & lt;id nullFlavor="NA" /> <code codeSystem="local& quot; code="100.1250" displayName="BASOPHILS % (AUTO)& quot; /> <statusCode code="completed" /> & lt;effectiveTime value="357874006758" /> <value unit=& quot;%" xsi:type="PQ" value="0.3" /> <referenceRange> <observationRange> < text>0-2</text> </observationRange> </referenceRange > </observation> </component> <component> <observation moodCode="EVN" classCode="OBS"> <templateId root="2.16.840.1.817952.10.20.22.4.2" /> <id nullFlavor="NA" /> <code codeSystem=& quot;local" code="100.1275" displayName="IMMATURE GRANULOCYTE % (AUTO)" /> <statusCodecode=" completed" /> <effectiveTime value="875434237602" /> <value unit="%" xsi:type="PQ" value=& quot;0.4" /> <referenceRange> <observationRange&gt ; <text>0.0-0.5</text> </observationRange > </referenceRange> </observation> </ component> <component> <observation moodCode="EVN& quot; classCode="OBS"> <templateId root=" 2.16.840.1.443372.10.20.22.4.2" /> <id nullFlavor="NA& quot; /> <code codeSystem="local" code="100.1300& quot; displayName="NEUTROPHILS # (AUTO)" /> < statusCode code="completed" /> <effectiveTime value=& quot;654788799262" /> <value unit="T/MM3" xsi:type=" PQ" value="10.3" /> <interpretationCode codeSystem ="local" code="*" /> <referenceRange> <observationRange> <text>1.8-7.7</text> </observationRange> </referenceRange> &lt ;/observation> </component> <component> < observation moodCode="EVN" classCode="OBS"> < templateId root="2.16.840.1.399863.10.20.22.4.2" /> < idnullFlavor="NA" /> <code codeSystem="local&quot ; code="100.1350" displayName="LYMPHOCYTES # (AUTO)" /> <statusCode code="completed" /> < effectiveTime value="639657341650" /> <value unit=&quot ;T/MM3" xsi:type="PQ" value="2.8" /> < referenceRange> <observationRange> <text>1- 4.8</text> </observationRange> </ referenceRange> </observation> </component> < component> <observation moodCode="EVN" classCode=" OBS"> <templateId root="2.16.840.1.473073.10.20.22.4.2& quot; /> <id nullFlavor="NA" /> <code codeSystem="local" code="100.1400" displayName=" MONOCYTES # (AUTO)" /> <statusCode code="completed&quot ; /> <effectiveTime value="259913817304" /> <value unit="T/MM3" xsi:type="PQ" value="0.7&quot ; /> <referenceRange><observationRange> &lt ;text>0-0.8</text> </observationRange> </ referenceRange> </observation> </component> < component> <observation moodCode="EVN" classCode=" OBS"> <templateId root="2.16.840.1.076992.10.20.22.4.2& quot; /> <id nullFlavor="NA" /> <code codeSystem="local" code="100.1450" displayName=" EOSINOPHILS # (AUTO)" /> <statusCode code="completed& quot; /> <effectiveTime value="040382579643" /> &lt ;value unit="T/MM3" xsi:type="PQ" value="0.7" /&gt ; <interpretationCode codeSystem="local" code="*&quot ; /> <referenceRange> <observationRange> <text>0-0.5</text> </observationRange> </referenceRange> </observation> </component& gt; <component> <observation moodCode="EVN" classCode="OBS"> <templateId root=" 2.16.840.1.547100.10.20.22.4.2" /> <id nullFlavor="NA& quot; /><code codeSystem="local" code="100.1500" displayName="BASOPHILS # (AUTO)" /> <statusCode code=& quot;completed" /> <effectiveTime value="342892694456& quot; /> <value unit="T/MM3" xsi:type="PQ" value="0.1" /> <referenceRange> < observationRange> <text>0-0.2</text> </ observationRange> </referenceRange> </observation&gt ; </component> <component> <observation moodCode ="EVN" classCode="OBS"> <templateId root=& quot;2.16.840.1.379285.10.20.22.4.2" /> <id nullFlavor=&quot ;NA" /> <code codeSystem="local" code=" 100.1525" displayName="IMMATURE GRANULOCYTE # (AUTO)" /> <statusCode code="completed" /> <effectiveTime value="830450227840" /> <value unit="T/MM3" xsi:type="PQ" value="0.06" /> < interpretationCode codeSystem="local" code="*" /> <referenceRange> <observationRange> < text>0.00-0.03</text> </observationRange> &lt ;/referenceRange> </observation> </component> </ organizer> </entry> <entry> <organizer moodCode="EVN& quot; classCode="BATTERY"> <templateId root=" 2.16.840.1.247089.10.20.22.4.1" /> <id nullFlavor="NA&quot ; /> <code codeSystem="local" code="MCUBLD" displayName="M110.0180" /> <statusCode code="completed& quot; /> <component> <observation moodCode="EVN& quot; classCode="OBS"> <templateId root=" 2.16.840.1.481650.10.20.22.4.2" /> <id nullFlavor="NA& quot; /> <code codeSystem="local" code="110.0200& quot; displayName="ANTI-D" /> <statusCode code=" completed" /> <effectiveTime value="112925898328" /> <value unit="" xsi:type="PQ" value=" No Growth After 5 Days" /> <referenceRange> & lt;observationRange> <text>NRG</text> &lt ;/observationRange> </referenceRange> </observation& gt; </component> </organizer> </entry> <entry&gt ; <organizer moodCode="EVN" classCode="BATTERY"> <templateId root="2.16.840.1.325086.10.20.22.4.1" /> & lt;id nullFlavor="NA" /> <code codeSystem="local&quot ; code="LCMP" displayName="L200.0020" /> < statusCode code="completed" /> <component> < observation moodCode="EVN" classCode="OBS"> < templateId root="2.16.840.1.727602.10.20.22.4.2" /> < id nullFlavor="NA" /> <code codeSystem="local&quot ; code="300.0400" displayName="FUNGAL CULTURE." /> <statusCode code="completed" /> <effectiveTime value="525404326664" /> <value unit="MG/DL" xsi:type="PQ" value="1.0" /> <referenceRange> <observationRange> <text>0.7-1.2</text& gt; </observationRange> </referenceRange> </observation> </component> <component> &lt ;observation moodCode="EVN" classCode="OBS"> &lt ;templateId root="2.16.840.1.982848.10.20.22.4.2" /> < id nullFlavor="NA" /> <code codeSystem="local&quot ; code="300.0450" displayName="FUNGAL CULTURE, BLOOD." /&gt ; <statusCode code="completed" /> < effectiveTime value="476156837700" /> <value unit=" RATIO" xsi:type="PQ" value="9" /><referenceRange& gt; <observationRange> <text>6-26</text& gt; </observationRange> </referenceRange> </observation> </component> <component> < observation moodCode="EVN" classCode="OBS"> < templateId root="2.16.840.1.531258.10.20.22.4.2" /> <id nullFlavor="NA" /> <code codeSystem="local" code="300.0100" displayName="NA - Sodium" /> &lt ;statusCode code="completed" /> <effectiveTime value=& quot;230726185883" /> <value unit="MEQ/L" xsi:type ="PQ" value="139" /> <referenceRange> <observationRange> <text>134-144</text> </observationRange> </referenceRange> &lt ;/observation> </component> <component> < observation moodCode="EVN" classCode="OBS"> < templateId root="2.16.840.1.192796.10.20.22.4.2" /> < idnullFlavor="NA" /> <code codeSystem="local&quot ; code="300.0150" displayName="Potassium" /> &lt ;statusCode code="completed" /> <effectiveTime value=& quot;309582164252" /> <value unit="MEQ/L" xsi:type ="PQ" value="4.0" /> <referenceRange> <observationRange> <text>3.6-5</text> </observationRange> </referenceRange> </ observation> </component> <component> < observation moodCode="EVN" classCode="OBS"> < templateId root="2.16.840.1.764624.10.20.22.4.2" /> < id nullFlavor="NA" /> <code codeSystem="local&quot ; code="300.0200" displayName="Chloride" /> < statusCode code="completed" /> <effectiveTime value=& quot;371833554149" /> <value unit="MEQ/L" xsi:type ="PQ" value="109" /> <interpretationCode codeSystem="local" code="*" /> < referenceRange> <observationRange> <text>98-107</ text> </observationRange> </referenceRange> </observation> </component> <component> <observationmoodCode="EVN" classCode="OBS"> <templateId root="2.16.840.1.813959.10.20.22.4.2" /> <id nullFlavor="NA" /> <code codeSystem=" local" code="300.0250" displayName="CO2 - Carbon Dioxide& quot; /> <statusCode code="completed" /> & lt;effectiveTime value="815954503983" /> <value unit=& quot;MEQ/L" xsi:type="PQ" value="23" /> &lt ;referenceRange> <observationRange> <text&gt ;22-30</text> </observationRange> </ referenceRange> </observation> </component> < component> <observation moodCode="EVN" classCode=" OBS"> <templateId root="2.16.840.1.364469.10.20.22.4.2& quot; /> <id nullFlavor="NA" /> <code codeSystem="local" code="300.0300" displayName="Anion Gap" /> <statusCode code="completed" /> <effectiveTime value="987908264996" /> <value unit="MEQ/L" xsi:type="PQ" value="7" /> < referenceRange> <observationRange> <text> 5-15</text> </observationRange> </ referenceRange> </observation> </component> < component> <observation moodCode="EVN" classCode=" OBS"> <templateId root="2.16.840.1.892756.10.20.22.4.2& quot; /> <id nullFlavor="NA" /> <code codeSystem="local" code="300.0350" displayName="BUN - Blood Urea Nitrogen" /> <statusCodecode="completed&quot ; /> <effectiveTime value="096711885352" /> < value unit="MG/DL" xsi:type="PQ" value="9.0" /&gt ; <referenceRange> <observationRange> <text>7-17</text> </observationRange> & lt;/referenceRange> </observation> </component> < component> <observation moodCode="EVN" classCode=" OBS"> <templateId root="2.16.840.1.036195.10.20.22.4.2& quot; /> <id nullFlavor="NA" /> <code codeSystem="local" code="300.0410" displayName=" Glomerular Filtration Rate" /> <statusCode code=" completed" /> <effectiveTime value="851054581840" /> <value unit="" xsi:type="PQ" value="65" /> <referenceRange> <observationRange> <text>NRG</text></observationRange> </ referenceRange> </observation> </component> < component> <observation moodCode="EVN" classCode=" OBS"> <templateId root="2.16.840.1.819302.10..22.4.2& quot; /> <id nullFlavor="NA" /> <code codeSystem="local" code="300.0500" displayName="Glucose " /> <statusCode code="completed" /> & lt;effectiveTime value="400144809856" /> <value unit=& quot;MG/DL" xsi:type="PQ" value="110" /> & lt;referenceRange><observationRange> <text>65-110&lt ;/text> </observationRange> </referenceRange&gt ; </observation> </component> <component> <observation moodCode="EVN" classCode="OBS"> <templateId root="2.16.840.1.407482.10..22.4.2" /> <id nullFlavor="NA" /> <code codeSystem=" local" code="300.2000" displayName="Osmolality,Calculated& quot; /> <statusCode code="completed" /> < effectiveTime value="616043875056" /> <value unit=&quot ;MOSM/KG" xsi:type="PQ" value="268" /> < referenceRange> <observationRange> <text> 261-280</text> </observationRange> </ referenceRange> </observation> </component> < component> <observation moodCode="EVN" classCode=" OBS"> <templateId root="2.16.840.1.183702.10.20.22.4.2& quot; /> <id nullFlavor="NA" /> <code codeSystem="local" code="300.2200" displayName="Calcium " /> <statusCode code="completed" /> & lt;effectiveTime value="965010972347" /> <value unit=& quot;MG/DL" xsi:type="PQ" value="8.9" /> & lt;referenceRange> <observationRange> <text& gt;8.4-10.2</text> </observationRange> </ referenceRange> </observation> </component> < component> <observation moodCode="EVN" classCode=" OBS"> <templateId root="2.16.840.1.983399.10.20.22.4.2& quot; /> <id nullFlavor="NA" /> <code codeSystem="local" code="300.5110" displayName=" Bilirubin,Total" /> <statusCode code="completed" / > <effectiveTime value="071718079967" /> & lt;value unit="MG/DL" xsi:type="PQ" value="0.30" / > <referenceRange> <observationRange> & lt;text>0.20-1.30</text> </observationRange> </referenceRange> </observation> </component> <component> <observation moodCode="EVN" classCode=& quot;OBS"> <templateId root=" 2.16.840.1.463754.10.20.22.4.2" /> <id nullFlavor="NA& quot; /> <code codeSystem="local" code="300.3795& quot; displayName="Alkaline Phosphatase" /> < statusCode code="completed" /> <effectiveTime value=& quot;823184773628" /> <value unit="U/L" xsi:type=& quot;PQ" value="67" /> <referenceRange> <observationRange> <text>38-126</text> </observationRange> </referenceRange> </ observation> </component> <component> < observation moodCode="EVN" classCode="OBS"> < templateId root="2.16.840.1.720282.10..22.4.2" /> < id nullFlavor="NA" /> <code codeSystem="local&quot ; code="300.3050" displayName="AST - Aspartate Amino Transfer& quot; /> <statusCode code="completed" /> & lt;effectiveTime value="186955833316" /> <value unit=& quot;U/L" xsi:type="PQ" value="13" /> < interpretationCode codeSystem="local" code="*" /> <referenceRange> <observationRange> < text>14-36</text> </observationRange> </ referenceRange> </observation> </component> < component> <observation moodCode="EVN" classCode=" OBS"> <templateId root="2.16.840.1.784489.10.20.22.4.2& quot; /> <id nullFlavor="NA" /> <code codeSystem="local" code="300.3100" displayName="ALT& quot; /> <statusCode code="completed" /> & lt;effectiveTime value="244938971537" /> <value unit=& quot;U/L" xsi:type="PQ" value="35" /> < referenceRange> <observationRange> <text> 9-52</text> </observationRange> </ referenceRange> </observation> </component> < component> <observation moodCode="EVN" classCode=" OBS"> <templateId root="2.16.840.1.568123.10.20.22.4.2& quot; /> <idnullFlavor="NA" /> <code codeSystem="local" code="300.3110" displayName="TP - Total Protein" /> <statusCode code="completed" /& gt; <effectiveTime value="881708763680" /> &lt ;value unit="G/DL" xsi:type="PQ" value="6.9" /&gt ; <referenceRange> <observationRange> & lt;text>6.3-8.2</text> </observationRange> & lt;/referenceRange> </observation> </component> &lt ;component> <observation moodCode="EVN" classCode=" OBS"> <templateId root="2.16.840.1.553964.10.20.22.4.2& quot; /> <id nullFlavor="NA" /> <code codeSystem="local" code="300.3120" displayName=" Albumin Level" /> <statusCode code="completed" /& gt; <effectiveTime value="439387308257" /> < value unit="G/DL" xsi:type="PQ" value="4.0" /> <referenceRange> <observationRange> <text>3.5-5.0</text> </observationRange> </referenceRange> </observation> </component> <component> <observation moodCode="EVN" classCode= "OBS"> <templateId root=" 2.16.840.1.730799.10.20.22.4.2" /> <id nullFlavor="NA& quot; /> <code codeSystem="local" code="300.3130& quot; displayName="Globulin" /> <statusCode code=" completed" /> <effectiveTime value="564125818724" /> <value unit="G/DL" xsi:type="PQ" value=& quot;2.9" /> <referenceRange> < observationRange> <text>2.4-3.6</text> < /observationRange> </referenceRange> </observation& gt; </component> <component> <observation moodCode="EVN" classCode="OBS"> <templateId root="2.16.840.1.473736.10.20.22.4.2" /> <id nullFlavor ="NA" /> <code codeSystem="local" code=" 300.3140" displayName="Albumin/Globulin Ratio" /> &lt ;statusCode code="completed" /> <effectiveTime value=& quot;895415180528" /> <value unit="RATIO" xsi:type ="PQ"value="1.4" /> <referenceRange> <observationRange> <text>1.1-2.2</text> </observationRange> </referenceRange> </ observation> </component> <component> < observation moodCode="EVN" classCode="OBS"> < templateId root="2.16.840.1.468150.10.20.22.4.2" /> < id nullFlavor="NA" /> <code codeSystem="local&quot ; code="300.0095" displayName="LICTERUS" /> < statusCode code="completed" /> <effectiveTime value=& quot;873327290797" /> <value unit="" xsi:type=& quot;PQ" value="< 2" /> <referenceRange&gt ; <observationRange> <text>0-7</text> </observationRange> </referenceRange> & lt;/observation> </component> <component> < observation moodCode="EVN" classCode="OBS"> < templateId root="2.16.840.1.914958.10.20.22.4.2" /> < id nullFlavor="NA" /> <code codeSystem="local&quot ; code="300.0096" displayName="LHEMOLYSIS" /> & lt;statusCode code="completed" /> <effectiveTime value= "828800798245" /> <value unit="" xsi:type=&quot ;PQ" value="< 15" /> <referenceRange> <observationRange> <text>0-25</text> </observationRange> </referenceRange> </ observation> </component> <component> < observation moodCode="EVN" classCode="OBS"> < templateId root="2.16.840.1.165467.10.20.22.4.2" /> < id nullFlavor="NA" /> <code codeSystem="local&quot ; code="300.0097" displayName="LTURBIDITY" /> & lt;statusCode code="completed" /> <effectiveTime value= "316943863960" /> <value unit="" xsi:type=& quot;PQ" value="< 20" /> <referenceRange&gt ; <observationRange> <text>0-20</text> </observationRange> </referenceRange> </ observation> </component> </organizer> </entry> & lt;entry> <organizer moodCode="EVN" classCode="BATTERY& quot;> <templateId root="2.16.840.1.097531.10.20.22.4.1" /& gt; <id nullFlavor="NA" /> <code codeSystem=" local" code="LLACTATE" displayName="L200.2067" /> <statusCode code="completed" /> <component> <observation moodCode="EVN" classCode="OBS"> <templateId root="2.16.840.1.786445.10.20.22.4.2" /> <id nullFlavor="NA" /> <code codeSystem="local" code="300.3230" displayName="Lactate" /> < statusCode code="completed"/> <effectiveTime value=& quot;434583175610" /> <value unit="MMOL/L" xsi: type="PQ" value="1.1" /> <referenceRange> <observationRange> <text>0.6-2.2</text> </observationRange> </referenceRange> </ observation> </component></organizer> </entry> < entry> <organizer moodCode="EVN" classCode="BATTERY&quot ;> <templateId root="2.16.840.1.155016.10.20.22.4.1" /> <id nullFlavor="NA" /> <code codeSystem="local& quot; code="LPROCALC" displayName="L200.2068" /> &lt ;statusCode code="completed" /> <component> < observation moodCode="EVN" classCode="OBS"> < templateId root="2.16.840.1.745551.10.20.22.4.2" /> < id nullFlavor="NA" /> <code codeSystem="local&quot ; code="300.3240" displayName="Procalcitonin" /> <statusCode code="completed" /> <effectiveTime value ="292207899470" /> <value unit="NG/ML" xsi: type="PQ" value="< 0.05" /> < referenceRange> <observationRange> <text>NRG& lt;/text> </observationRange> </referenceRange& gt; </observation> </component> </organizer> & lt;/entry> <entry> <organizer moodCode="EVN" classCode ="BATTERY"> <templateId root=" 2.16.840.1.084197.10.20.22.4.1" /> <id nullFlavor="NA" /&gt ; <code codeSystem="local" code="KWABENA" displayName=& quot;L600.0100" /> <statusCode code="completed" />& lt;component> <observation moodCode="EVN" classCode=&quot ;OBS"> <templateId root="2.16.840.1.132789.10.20.22.4.2&quot ; /> <id nullFlavor="NA" /> <code codeSystem="local" code="200.0150" displayName=" POTASSIUM" /> <statusCode code="completed" /> <effectiveTime value="171191645664" /> < value unit="" xsi:type="PQ" value="Urine, Clean Catch& quot; /> <referenceRange> <observationRange> <text>NRG</text> </observationRange> </referenceRange> </observation> </component > <component> <observation moodCode="EVN" classCode="OBS"> <templateId root=" 2.16.840.1.501191.10..22.4.2" /> <id nullFlavor="NA& quot; /> <code codeSystem="local" code="200.0200& quot; displayName="CHLORIDE" /> <statusCode code=" completed" /> <effectiveTime value="121981973733" /> <value unit="" xsi:type="PQ"value=" YELLOW" /> <referenceRange> < observationRange> <text>YELLOW</text> </ observationRange> </referenceRange> </observation&gt ; </component> <component> <observation moodCode ="EVN" classCode="OBS"> <templateId root=& quot;2.16.840.1.618932.10..22.4.2" /> <id nullFlavor=&quot ;NA" /> <code codeSystem="local" code=" 200.0300" displayName="ANION GAP" /> <statusCode code="completed" /> <effectiveTime value=" 345421812841" /> <value unit="" xsi:type="PQ& quot; value="CLEAR" /> <referenceRange> & lt;observationRange> <text>NRG</text> &lt ;/observationRange> </referenceRange> </observation& gt; </component> <component> <observation moodCode="EVN" classCode="OBS"> <templateId root="2.16.840.1.670281.10.20.22.4.2" /> <id nullFlavor ="NA" /> <code codeSystem="local" code=" 200.0350" displayName="BLOOD UREA NITROGEN" /> < statusCode code="completed" /> <effectiveTime value=& quot;963287514232"/> <value unit="" xsi:type=&quot ;PQ" value="6.0" /> <referenceRange> < observationRange> <text>5.0-8.0</text> & lt;/observationRange> </referenceRange> </ observation> </component> <component> < observation moodCode="EVN" classCode="OBS"> < templateId root="2.16.840.1.537883.10.20.22.4.2" /> < id nullFlavor="NA" /> <code codeSystem="local&quot ; code="200.0450" displayName="BUN/CREATININE RATIO" /> <statusCode code="completed" /> < effectiveTime value="308746826004" /> <value unit="&quot ; xsi:type="PQ" value="NEGATIVE" /> < referenceRange> <observationRange> <text> NEGATIVE</text> </observationRange> </ referenceRange> </observation> </component> < component> <observation moodCode="EVN" classCode=" OBS"> <templateId root="2.16.840.1.841890.10.20.22.4.2& quot; /> <id nullFlavor="NA" /> <code codeSystem="local" code="200.0500" displayName="GLUCOSE " /> <statusCode code="completed" /> & lt;effectiveTime value="463432137949" /> <value unit=& quot;" xsi:type="PQ" value="NEGATIVE" /> & lt;referenceRange> <observationRange> <text& gt;NEGATIVE</text> </observationRange> </ referenceRange> </observation> </component> < component> <observation moodCode="EVN" classCode=" OBS"> <templateId root="2.16.840.1.225135.10.20.22.4.2& quot; /> <id nullFlavor="NA" /> <code codeSystem="local" code="200.0600" displayName="CALCIUM " /> <statusCode code="completed" /> < effectiveTime value="291610584201" /> <value unit=&quot ;" xsi:type="PQ" value="NEGATIVE" /> < referenceRange> <observationRange> <text> NEGATIVE</text> </observationRange> </ referenceRange> </observation> </component> < component> <observation moodCode="EVN" classCode=" OBS"> <templateId root="2.16.840.1.733899.10.20.22.4.2& quot; /> <id nullFlavor="NA" /> <code codeSystem="local" code="200.0750" displayName=" BILIRUBIN, CONJUG &amp; UNCONJUG" /> <statusCode code="completed" /> <effectiveTime value=" 400251627450" /> <value unit="" xsi:type="PQ& quot; value="NEGATIVE" /> <referenceRange> <observationRange> <text>NEGATIVE</text> </observationRange> </referenceRange> </ observation> </component> <component> < observation moodCode="EVN" classCode="OBS"> < templateId root="2.16.840.1.337038.10.20.22.4.2" /> < id nullFlavor="NA" /> <code codeSystem="local&quot ; code="200.0325" displayName="Specific [place],Urine" /&gt ; <statusCode code="completed" /> < effectiveTime value="059227316379" /> <value unit=&quot ;" xsi:type="PQ" value="<=1.005" /> <interpretationCode codeSystem="local" code="*" /> <referenceRange> <observationRange> & lt;text>1.015-1.025</text> </observationRange> </referenceRange> </observation> </component> <component> <observation moodCode="EVN" classCode ="OBS"> <templateId root="2.16.840.1.342249.10.20.22.4.2& quot; /> <id nullFlavor="NA" /> <code codeSystem="local" code="200.0410" displayName=" Leukocyte Esterase,Urine" /> <statusCode code=" completed" /> <effectiveTime value="318312769926" /> <value unit="" xsi:type="PQ" value=" NEGATIVE" /> <referenceRange><observationRange> <text>NEGATIVE</text> </observationRange&gt ; </referenceRange> </observation> </ component> <component> <observation moodCode="EVN& quot; classCode="OBS"> <templateId root=" [id number]" /> <id nullFlavor="NA& quot; /> <code codeSystem="local" code="200.0420& quot; displayName="Nitrate,Urine" /> <statusCode code=& quot;completed" /> <effectiveTime value="[id number]& quot; /> <value unit="" xsi:type="PQ" value=& quot;NEGATIVE" /> <referenceRange> < observationRange> <text>NEGATIVE</text> & lt;/observationRange> </referenceRange> </observation&gt ; </component> <component> <observation moodCode ="EVN" classCode="OBS"> <templateId root=& quot;2.16.840.1.524249.10.20.22.4.2" /> <id nullFlavor=&quot ;NA" /> <code codeSystem="local" code=" 200.0740" displayName="Urobilinogen,Urine" /> < statusCode code="completed" /> <effectiveTime value=& quot;420934256300" /> <value unit="EU/DL" xsi:type ="PQ" value="0.2" /> <referenceRange> <observationRange> <text>NORMAL</text> </observationRange> </referenceRange> < /observation> </component> <component> <observation moodCode="EVN" classCode="OBS"> <templateId root="2.16.840.1.044649.10.20.22.4.2" /> <id nullFlavor ="NA" /> <code codeSystem="local" code=" 200.0825" displayName="Occult Blood,Urine - Dipstick" /> <statusCode code="completed" /> <effectiveTime value="943893543125" /> <value unit="" xsi: type="PQ" value="TRACE-INTACT" /> < referenceRange> <observationRange> <text> NEGATIVE</text> </observationRange> </ referenceRange> </observation> </component> < component> <observation moodCode="EVN" classCode=" OBS"> <templateId root="2.16.840.1.476344.10.20.22.4.2& quot; /> <id nullFlavor="NA" /> <code codeSystem="local" code="200.0992" displayName=" UrineMicroscopic (UA)" /> <statusCode code="completed& quot; /> <effectiveTime value="096198040981" /> <value unit="" xsi:type="PQ" value=" Microscopic Not Ind." /> <referenceRange> < observationRange> <text>NRG</text> </ observationRange> </referenceRange> </observation> </component> </organizer> </entry> <entry> <organizer moodCode="EVN" classCode="BATTERY"> <templateId root="2.16.840.1.889539.10.20.22.4.1" /> < id nullFlavor="NA" /> <code codeSystem="local" code="LCBC" displayName="L100.0050" /> < statusCode code="completed" /> <component> < observation moodCode="EVN" classCode="OBS"> < templateId root="2.16.840.1.314308.10.20.22.4.2" /> < id nullFlavor="NA" /> <code codeSystem="local&quot ; code="100.0150" displayName="WBC - WHITE BLOOD COUNT" /&gt ; <statusCode code="completed" /><effectiveTime value="576182256062" /> <value unit="T/MM3" xsi:type="PQ" value="15.3" /> < interpretationCode codeSystem="local" code="*" /> <referenceRange> <observationRange> < text>4.5-11.0</text> </observationRange> < /referenceRange> </observation> </component> &lt ;component> <observation moodCode="EVN" classCode=" OBS"> <templateId root="2.16.840.1.817032.10.20.22.4.2& quot; /> <id nullFlavor="NA" /> <code codeSystem ="local" code="100.0250" displayName="RED BLOOD COUNT& quot; /> <statusCode code="completed" /> & lt;effectiveTime value="023363497133" /> <value unit=& quot;M/MM3" xsi:type="PQ" value="5.08" /> & lt;referenceRange> <observationRange> <text>4.00- 5.20</text> </observationRange> </ referenceRange> </observation> </component> < component> <observation moodCode="EVN" classCode=" OBS"> <templateId root="2.16.840.1.497520.10.20.22.4.2& quot; /> <id nullFlavor="NA" /> <code codeSystem="local" code="100.0300" displayName="HGB - HEMOGLOBIN" /> <statusCode code="completed" /> <effectiveTime value="834560923101" /> < value unit="GM/DL" xsi:type="PQ" value="13.9" /&gt ; <referenceRange> <observationRange> <text>12-16</text> </observationRange> </referenceRange> </observation> </component> <component> <observation moodCode="EVN" classCode=& quot;OBS"> <templateId root=" 2.16.840.1.445395.10.20.22.4.2" /> <id nullFlavor="NA& quot; /> <code codeSystem="local" code="100.0400& quot; displayName="HCT - HEMATOCRIT" /> <statusCode code=" completed" /> <effectiveTime value="455085523967" /> <value unit="%" xsi:type="PQ" value="41.9" /> <referenceRange> < observationRange> <text>36-46</text> < /observationRange> </referenceRange> </observation& gt; </component> <component> <observation moodCode="EVN" classCode="OBS"> <templateId root="2.16.840.1.066482.10.20.22.4.2" /> <id nullFlavor ="NA" /> <code codeSystem="local" code=" 100.0550" displayName="MEAN CORPUSCULAR VOLUME" /> < statusCode code="completed" /> <effectiveTime value=& quot;574476369940" /> <value unit="UM3" xsi:type=& quot;PQ" value="82.5" /> <referenceRange> <observationRange> <text>80-100</text> </observationRange> </referenceRange> </ observation> </component> <component> < observation moodCode="EVN" classCode="OBS"> < templateId root="2.16.840.1.738041.10.20.22.4.2" /> < id nullFlavor="NA" /> <code codeSystem="local&quot ; code="100.0600" displayName="MEAN CORPUSCULAR HGB" /> <statusCode code="completed" /> < effectiveTime value="879379846168" /> <value unit=&quot ;UUG" xsi:type="PQ" value="27.4" /> < referenceRange> <observationRange> <text> 26-34</text> </observationRange> </ referenceRange> </observation> </component> < component> <observation moodCode="EVN" classCode=" OBS"> <templateId root="2.16.840.1.043345.10.20.22.4.2& quot;/> <id nullFlavor="NA" /> <code codeSystem="local"code="100.0650" displayName="MEAN CORPUSCULAR HGB CONC([facility]" /> <statusCode code=" completed" /> <effectiveTime value="359296080929"/ > <value unit="GM/DL" xsi:type="PQ" value=& quot;33.2" /> <referenceRange> < observationRange> <text>31-37</text> < /observationRange> </referenceRange> </observation& gt; </component> <component> <observation moodCode="EVN" classCode="OBS"> <templateId root="2.16.840.1.590523.10.20.22.4.2" /> <id nullFlavor ="NA" /> <code codeSystem="local" code=" 100.0750" displayName="RDW STANDARD DEVIATION" /> &lt ;statusCode code="completed" /> <effectiveTime value=& quot;395313685331" /> <value unit="FL" xsi:type=& quot;PQ" value="43.6" /> <referenceRange> &lt ;observationRange> <text>36.9-50.2</text> </observationRange> </referenceRange> </ observation> </component> <component> < observation moodCode="EVN" classCode="OBS"> < templateId root="2.16.840.1.028977.10.20.22.4.2" /> < id nullFlavor="NA" /> <code codeSystem="local&quot ; code="100.0850" displayName="PLT - PLATELET COUNT" /> <statusCode code="completed" /> < effectiveTime value="256739706853" /> <value unit="T/MM3 " xsi:type="PQ" value="347" /> < referenceRange> <observationRange> <text> 130-400</text> </observationRange> </ referenceRange> </observation> </component> < component> <observation moodCode="EVN" classCode=" OBS"> <templateId root="2.16.840.1.152400.10.20.22.4.2& quot; /> <id nullFlavor="NA" /> <code codeSystem="local" code="100.0950" displayName="MEAN PLATELET VOLUME" /> <statusCode code="completed" / > <effectiveTime value="079935716540" /> & lt;value unit="UM3" xsi:type="PQ" value="9.1" /&gt ; <interpretationCode codeSystem="local" code="*&quot ; /> <referenceRange> <observationRange> <text>9.4-12.4</text> </observationRange> </referenceRange> </observation> </component& gt; </organizer> </entry> <entry> <organizer moodCode="EVN" classCode="BATTERY"> <templateId root="2.16.840.1.072910.10.20.22.4.1" /> <id nullFlavor=& quot;NA" /> <code codeSystem="local" code="LDIFFM " displayName="L100.0105" /> <statusCode code=" completed" /> <component> <observation moodCode=& quot;EVN" classCode="OBS"> <templateId root=" 2.16.840.1.770102.10.20.22.4.2" /> <id nullFlavor="NA& quot; /> <code codeSystem="local" code="100.1650& quot;displayName="NEUTROPHILS % (MANUAL)" /> < statusCode code="completed" /> <effectiveTime value=& quot;155912769544" /> <value unit="%" xsi: type="PQ" value="68.0" /> < interpretationCode codeSystem="local" code="*" /> <referenceRange> <observationRange> <text&gt ;33-66</text> </observationRange> </ referenceRange> </observation> </component>< component> <observation moodCode="EVN" classCode=" OBS"> <templateId root="2.16.840.1.804107.10.20.22.4.2" /> <id nullFlavor="NA" /> <code codeSystem="local" code="100.1750" displayName="BAND NEUTROPHILS %" /> <statusCode code="completed& quot; /> <effectiveTime value="285207110848" /> <value unit="%" xsi:type="PQ" value=" 1.0" /> <referenceRange> <observationRange> <text>0-6</text> </observationRange> </referenceRange> </observation> </ component><component> <observation moodCode="EVN" classCode="OBS"> <templateId root=" 2.16.840.1.432312.10.20.22.4.2" /> <id nullFlavor="NA& quot; /> <code codeSystem="local" code="100.1850& quot; displayName="LYMPHOCYTES % (MANUAL)" /> < statusCode code="completed" /> <effectiveTime value=& quot;531514514582" /> <value unit="%" xsi: type="PQ" value="17.0" /> < interpretationCode codeSystem="local" code="*" /> <referenceRange> <observationRange> < text>23-45</text> </observationRange> </ referenceRange> </observation> </component> < component> <observation moodCode="EVN" classCode=" OBS"> <templateId root="2.16.840.1.526697.10.20.22.4.2& quot; /> <id nullFlavor="NA" /> <code codeSystem="local" code="100.1950" displayName=" MONOCYTES % (MANUAL)" /> <statusCode code=" completed" /> <effectiveTime value="513168587137" /& gt; <value unit="%" xsi:type="PQ" value= "4.0" /> <referenceRange> <observationRange> <text>0-9.0</text> </observationRange&gt ; </referenceRange> </observation> </ component> <component> <observation moodCode="EVN& quot; classCode="OBS"><templateId root=" 2.16.840.1.405775.10.20.22.4.2" /> <id nullFlavor="NA& quot; /> <code codeSystem="local" code="100.0& quot; displayName="EOSINOPHILS % (MANUAL)" /> < statusCode code="completed" /> <effectiveTime value=& quot;240368070823" /> <value unit="%" xsi: type="PQ" value="9.0" /> <interpretationCode codeSystem="local" code="*" /> < referenceRange> <observationRange> <text> 0-4</text> </observationRange> </referenceRange&gt ; </observation> </component> <component> <observation moodCode="EVN" classCode="OBS"> <templateId root="2.16.840.1.379549.10..22.4.2" /> <id nullFlavor="NA" /> <code codeSystem=" local" code="100.2150" displayName="BASOPHILS % ( MANUAL)" /> <statusCode code="completed" /> &lt ;effectiveTime value="692427173701" /> <value unit=& quot;%" xsi:type="PQ" value="1.0" /> <referenceRange> <observationRange> < text>0-2</text> </observationRange> </ referenceRange> </observation> </component> < component> <observation moodCode="EVN" classCode=" OBS"> <templateId root="2.16.840.1.347740.10..22.4.2& quot; /> <id nullFlavor="NA" /> <code codeSystem="local" code="100.2400" displayName=" PROLYMPHOCYTES %" /> <statusCode code=" completed" /> <effectiveTime value="546685579767" /> <value unit="T/MM3" xsi:type="PQ" value=& quot;10.4" /> <interpretationCode codeSystem="local& quot; code="*" /> <referenceRange> < observationRange> <text>1.8-7.7</text> &lt ;/observationRange> </referenceRange> </observation& gt; </component> <component> <observation moodCode="EVN" classCode="OBS"> <templateId root="2.16.840.1.904130.10.20.22.4.2" /> <id nullFlavor ="NA" /><code codeSystem="local" code="100.2450& quot; displayName="PLASMA CELLS %" /> < statusCode code="completed" /> <effectiveTime value=& quot;689810256530" /> <value unit="T/MM3" xsi:type ="PQ" value="0.2" /> <referenceRange> <observationRange> <text>NRG</text> </observationRange> </referenceRange> </ observation> </component> <component> < observation moodCode="EVN" classCode="OBS"> < templateId root="2.16.840.1.947348.10..22.4.2" /> < id nullFlavor="NA" /> <code codeSystem="local&quot ; code="100.2650" displayName="NEUTROPHILS # (MANUAL)" /&gt ; <statusCode code="completed" /> < effectiveTime value="215976787150" /> <value unit=&quot ;T/MM3" xsi:type="PQ" value="0.6" /> < referenceRange> <observationRange> <text>0-0.8</ text> </observationRange> </referenceRange> </observation> </component> <component> <observation moodCode="EVN" classCode="OBS"> <templateId root="2.16.840.1.514337.10..22.4.2" /> <id nullFlavor="NA" /> <code codeSystem=" local" code="100.2750" displayName="MONOCYTES # (MANUAL)& quot; /> <statusCode code="completed" /> &lt ;effectiveTime value="125101657307" /> <value unit=& quot;T/MM3" xsi:type="PQ" value="1.4" /> & lt;interpretationCode codeSystem="local" code="*" /> <referenceRange> <observationRange> < text>0-0.5</text> </observationRange> </ referenceRange> </observation> </component> < component> <observation moodCode="EVN"classCode="OBS "> <templateId root="2.16.840.1.670385.10.20.22.4.2& quot; /> <id nullFlavor="NA" /> <code codeSystem="local" code="100.2850" displayName=" BASOPHILS # (MANUAL)" /> <statusCode code="completed& quot; /> <effectiveTime value="038469204354" /> <value unit="T/MM3" xsi:type="PQ" value="0.2&quot ; /> <referenceRange> <observationRange> <text>0-0.2</text> </observationRange> </referenceRange> </observation> </component&gt ; <component> <observation moodCode="EVN" classCode="OBS"> <templateId root=" 2.16.840.1.094673.10.20.22.4.2" /> <id nullFlavor="NA& quot; /> <code codeSystem="local" code="100.2550& quot; displayName="Lymphocytes # (Manual)" /> < statusCode code="completed" /> <effectiveTime value=& quot;939033611596" /><value unit="T/MM3" xsi:type="PQ& quot; value="2.6" /> <referenceRange> &lt ;observationRange> <text>1-4.8</text> </ observationRange> </referenceRange> </observation&gt ; </component> <component> <observation moodCode ="EVN" classCode="OBS"> <templateId root=& quot;2.16.840.1.414645.10.20.22.4.2" /> <id nullFlavor="NA&quot ; /> <code codeSystem="local" code="100.4565&quot ; displayName="LRBCMOR" /> <statusCode code=" completed" /> <effectiveTime value="002703793083" /> <value unit="" xsi:type="PQ" value=" Normal" /> <referenceRange> <observationRange> <text>NRG</text> </observationRange> </referenceRange> </observation> </component > </organizer> </entry> <entry> <organizer moodCode="EVN" classCode="BATTERY"> <templateId root="2.16.840.1.413578.10.20.22.4.1" /> <id nullFlavor=& quot;NA" /> <code codeSystem="local" code="LCMP& quot;displayName="L200.0020" /> <statusCode code=" completed" /> <component> <observation moodCode=& quot;EVN" classCode="OBS"> <templateId root=" 2.16.840.1.470425.10.20.22.4.2" /> <id nullFlavor="NA& quot; /> <code codeSystem="local" code="300.0400& quot; displayName="FUNGAL CULTURE." /> <statusCode code ="completed" /><effectiveTime value="054919618813" /& gt; <value unit="MG/DL" xsi:type="PQ" value=& quot;1.2" /> <referenceRange> < observationRange> <text>0.7-1.2</text> & lt;/observationRange> </referenceRange> </observation&gt ; </component> <component> <observation moodCode ="EVN" classCode="OBS"> <templateId root=& quot;2.16.840.1.749605.10.20.22.4.2" /> <id nullFlavor=&quot ;NA"/> <code codeSystem="local" code=" 300.0450" displayName="FUNGAL CULTURE, BLOOD." /> &lt ;statusCode code="completed" /> <effectiveTime value=& quot;907978888772" /> <value unit="RATIO" xsi:type ="PQ" value="11" /> <referenceRange> <observationRange> <text>6-26</text> </observationRange> </referenceRange> </ observation> </component> <component> < observation moodCode="EVN" classCode="OBS"> < templateId root="2.16.840.1.022357.10.20.22.4.2" /> < id nullFlavor="NA" /> <code codeSystem="local" code="300.0100" displayName="NA - Sodium" /> &lt ;statusCode code="completed" /> <effectiveTime value=& quot;166085779772" /> <value unit="MEQ/L" xsi:type ="PQ" value="140" /> <referenceRange> <observationRange> <text>134-144</text> </observationRange> </referenceRange> </ observation> </component> <component> < observation moodCode="EVN" classCode="OBS"> < templateId root="2.16.840.1.521242.10.20.22.4.2" /> < id nullFlavor="NA" /> <code codeSystem="local&quot ; code="300.0150" displayName="Potassium" /> < statusCode code="completed" /> <effectiveTime value=& quot;573744154318" /> <value unit="MEQ/L" xsi:type ="PQ" value="3.9" /> <referenceRange> <observationRange> <text>3.6-5</text> </observationRange> </referenceRange> </ observation> </component> <component> < observation moodCode="EVN" classCode="OBS"> < templateId root="2.16.840.1.520465.10.20.22.4.2" /> < id nullFlavor="NA" /> <code codeSystem="local&quot ; code="300.0200" displayName="Chloride" /> < statusCode code="completed" /> <effectiveTime value=& quot;424962748660" /> <value unit="MEQ/L" xsi:type=&quot ;PQ" value="104" /> <referenceRange> <observationRange> <text>98-107</text> </observationRange> </referenceRange> </ observation> </component> <component> < observation moodCode="EVN" classCode="OBS"> < templateId root="2.16.840.1.402078.10.20.22.4.2" /> <id nullFlavor="NA" /> <code codeSystem="local" code="300.0250" displayName="CO2 - Carbon Dioxide" /> <statusCode code="completed" /> < effectiveTime value="112190156077" /> <value unit=&quot ;MEQ/L" xsi:type="PQ" value="24" /> < referenceRange> <observationRange> <text> 22-30</text> </observationRange> </referenceRange> </observation> </component> <component> <observation moodCode="EVN" classCode="OBS"> <templateId root="2.16.840.1.999220.10.20.22.4.2" /> <id nullFlavor="NA" /> <code codeSystem=" local" code="300.0300" displayName="Anion Gap" /> <statusCode code="completed" /> < effectiveTime value="957269625409" /> <value unit=&quot ;MEQ/L" xsi:type="PQ" value="12" /> < referenceRange> <observationRange> <text>5-15</ text> </observationRange> </referenceRange> </observation> </component> <component> <observation moodCode="EVN" classCode="OBS">< templateId root="2.16.840.1.169042.10.20.22.4.2" /> < id nullFlavor="NA" /> <code codeSystem="local&quot ; code="300.0350" displayName="BUN - Blood Urea Nitrogen" /& gt; <statusCode code="completed" /> < effectiveTime value="961634471300" /> <value unit=&quot ;MG/DL" xsi:type="PQ" value="13.0" /> < referenceRange><observationRange> <text>7-17</ text> </observationRange> </referenceRange> </observation> </component> <component> <observation moodCode="EVN" classCode="OBS"> <templateId root="2.16.840.1.801864.10.20.22.4.2" /> <id nullFlavor="NA" /> <code codeSystem=" local" code="300.0410" displayName="Glomerular Filtration Rate" /> <statusCode code="completed" /> <effectiveTime value="362585532171" /> <value unit=& quot;" xsi:type="PQ" value="53" /> < referenceRange> <observationRange> <text> NRG</text> </observationRange> </referenceRange> </observation> </component> <component> <observation moodCode="EVN" classCode="OBS"> <templateId root="2.16.840.1.743077.10.20.22.4.2" /> <id nullFlavor="NA" /> <code codeSystem=" local" code="300.0500" displayName="Glucose" /> <statusCode code="completed" /> < effectiveTime value="387687068840" /> <value unit=&quot ;MG/DL" xsi:type="PQ" value="93" /> < referenceRange> <observationRange> <text>65-110&lt ;/text> </observationRange> </referenceRange&gt ; </observation> </component> <component> <observation moodCode="EVN" classCode="OBS"> <templateId root="2.16.840.1.787738.10.20.22.4.2" /> <id nullFlavor="NA" /> <codecodeSystem=" local" code="300.2000" displayName="Osmolality,Calculated& quot;/> <statusCode code="completed" /> &lt ;effectiveTime value="598366617619" /> <value unit=& quot;MOSM/KG" xsi:type="PQ" value="269" /> <referenceRange> <observationRange> <text>261-280& lt;/text> </observationRange> </referenceRange& gt; </observation> </component> <component> <observationmoodCode="EVN" classCode="OBS"> <templateId root="2.16.840.1.509895.10.20.22.4.2" /> <id nullFlavor="NA" /> <code codeSystem=" local" code="300.2200" displayName="Calcium" /> <statusCode code="completed" /> < effectiveTime value="047465838383" /> <value unit=&quot ;MG/DL" xsi:type="PQ" value="9.7" /> < referenceRange> <observationRange> <text> 8.4-10.2</text> </observationRange> </ referenceRange> </observation> </component> < component> <observation moodCode="EVN" classCode=" OBS"> <templateId root="2.16.840.1.658034.10.20.22.4.2& quot; /> <id nullFlavor="NA" /> <code codeSystem="local" code="300.2700" displayName=" Bilirubin,Total" /> <statusCode code="completed" / > <effectiveTime value="570858614338" /> < value unit="MG/DL" xsi:type="PQ" value="0.70" /&gt ; <referenceRange> <observationRange> < text>0.20-1.30</text> </observationRange> &lt ;/referenceRange> </observation> </component> & lt;component> <observation moodCode="EVN" classCode=&quot ;OBS"> <templateId root="2.16.840.1.614093.10.20.22.4.2 "/> <id nullFlavor="NA" /> <code codeSystem="local"code="300.2975" displayName=" Alkaline Phosphatase" /> <statusCodecode="completed& quot; /> <effectiveTime value="562242998295" /> <value unit="U/L" xsi:type="PQ" value="71" /&gt ; <referenceRange> <observationRange> <text>38-126</text> </observationRange> & lt;/referenceRange> </observation></component> < component> <observation moodCode="EVN" classCode=" OBS"> <templateId root="2.16.840.1.484114.10.20.22.4.2& quot; /> <id nullFlavor="NA" /> <code codeSystem="local" code="300.3050" displayName="AST - Aspartate Amino Transfer" /> <statusCodecode="completed " /> <effectiveTime value="468460252968" /> <value unit="U/L" xsi:type="PQ" value="15" /& gt; <referenceRange> <observationRange> <text>14-36</text> </observationRange> & lt;/referenceRange> </observation> </component> <component> <observation moodCode="EVN" classCode=& quot;OBS"> <templateId root=" 2.16.840.1.275633.10.20.22.4.2" /> <id nullFlavor="NA" / > <code codeSystem="local" code="300.3100" displayName="ALT" /> <statusCode code="completed& quot; /> <effectiveTime value="506931218769" /> <value unit="U/L" xsi:type="PQ" value="35&quot ; /> <referenceRange> <observationRange> & lt;text>9-52</text> </observationRange> </ referenceRange> </observation> </component> < component> <observation moodCode="EVN" classCode=" OBS"> <templateId root="2.16.840.1.122654.10.20.22.4.2& quot; /> <id nullFlavor="NA" /> <code codeSystem="local" code="300.3110" displayName="TP - Total Protein" /> <statusCode code="completed" /& gt;<effectiveTime value="900712653940" /> <value unit="G/DL" xsi:type="PQ" value="7.5" /> <referenceRange> <observationRange> < text>6.3-8.2</text> </observationRange> </ referenceRange> </observation> </component> < component> <observation moodCode="EVN" classCode=" OBS"> <templateId root="2.16.840.1.857937.10.20.22.4.2& quot; /> <id nullFlavor="NA" /> <code codeSystem="local" code="300.3120" displayName=" Albumin Level" /> <statusCode code="completed" /& gt; <effectiveTime value="994899569375" /> &lt ;value unit="G/DL" xsi:type="PQ" value="4.3" /&gt ; <referenceRange> <observationRange> <text>3.5-5.0</text> </observationRange> </referenceRange> </observation> </component> <component> <observation moodCode="EVN" classCode ="OBS"> <templateId root=" 2.16.840.1.033028.10.20.22.4.2" /> <id nullFlavor="NA& quot; /><code codeSystem="local" code="300.3130" displayName="Globulin" /> <statusCode code=" completed" /> <effectiveTime value="413214759194" /> <value unit="G/DL" xsi:type="PQ" value=& quot;3.2" /> <referenceRange> < observationRange> <text>2.4-3.6</text> & lt;/observationRange> </referenceRange> </observation&gt ; </component> <component> <observation moodCode ="EVN" classCode="OBS"> <templateId root=& quot;2.16.840.1.001232.10.20.22.4.2" /> <id nullFlavor=&quot ;NA" /> <code codeSystem="local" code=" 300.3140" displayName="Albumin/Globulin Ratio" /> < statusCode code="completed" /> <effectiveTime value=& quot;637791091807" /> <value unit="RATIO" xsi:type ="PQ" value="1.3" /> <referenceRange> <observationRange> <text>1.1-2.2</text> </observationRange> </referenceRange> &lt ;/observation> </component> <component> < observation moodCode="EVN" classCode="OBS"> < templateId root="2.16.840.1.191100.10.20.22.4.2" /> < id nullFlavor="NA" /> <code codeSystem="local&quot ; code="300.0095" displayName="LICTERUS" /> < statusCode code="completed" /> <effectiveTime value=& quot;151687895573" /> <value unit="" xsi:type=" PQ" value="< 2" /> <referenceRange> <observationRange> <text>0-7</text> & lt;/observationRange> </referenceRange> </ observation> </component> <component> < observation moodCode="EVN" classCode="OBS"> < templateId root="[id number]" /> < id nullFlavor="NA" /> <code codeSystem="local&quot ; code="300.0096" displayName="LHEMOLYSIS" /> & lt;statusCode code="completed" /> <effectiveTime value= "[id number]" /> <valueunit="" xsi:type=& quot;PQ" value="< 15" /> <referenceRange&gt ; <observationRange> <text>0-25</text&gt ; </observationRange> </referenceRange> & lt;/observation> </component> <component> < observation moodCode="EVN" classCode="OBS"> < templateId root="[id number]" /> < id nullFlavor="NA" /> <code codeSystem="local&quot ; code="300.0097" displayName="LTURBIDITY" /> & lt;statusCode code="completed" /> <effectiveTime value= "[id number]" /> <value unit="" xsi:type=& quot;PQ" value="< 20" /> <referenceRange&gt ; <observationRange> <text>0-20</text> </observationRange> </referenceRange> </ observation> </component> </organizer> </entry> & lt;entry> <organizer moodCode="EVN" classCode="BATTERY& quot;> <templateId root="2.16.840.1.054894.10.20.22.4.1" /& gt; <id nullFlavor="NA" /> <code codeSystem=" local" code="LMAG" displayName="L200.2000" /> & lt;statusCode code="completed" /> <component> &lt ;observation moodCode="EVN" classCode="OBS"> < templateId root="2.16.840.1.763403.10.20.22.4.2" /> < id nullFlavor="NA" /> <code codeSystem="local&quot ; code="300.2350" displayName="MAG - Magnesium" /> <statusCode code="completed" /> <effectiveTime value=& quot;435514248794" /> <value unit="MG/DL" xsi:type ="PQ" value="1.7" /> <referenceRange> <observationRange> <text>1.6-2.3</text> </observationRange> </referenceRange> </ observation> </component> </organizer> </entry> & lt;entry> <organizer moodCode="EVN" classCode="BATTERY& quot;> <templateId root="2.16.840.1.875912.10.20.22.4.1" /& gt; <id nullFlavor="NA" /> <code codeSystem=" local" code="LLDH" displayName="L200.1855" /> & lt;statusCode code="completed" /> <component> &lt ;observation moodCode="EVN" classCode="OBS"> &lt ;templateId root="2.16.840.1.032582.10.20.22.4.2" /> < id nullFlavor="NA" /> <code codeSystem="local&quot ; code="300.3250" displayName="LDH - Lactate Dehydrogenase" /> <statusCode code="completed" /> < effectiveTime value="475302410403" /> <value unit=&quot ;U/L" xsi:type="PQ" value="308" /> < interpretationCode codeSystem="local" code="*" /> <referenceRange> <observationRange> < text>313618</text> </observationRange> </ referenceRange> </observation> </component> </ organizer> </entry> <entry> <organizer moodCode="EVN " classCode="BATTERY"><templateId root=" 2.16.840.1.964503.10.20.22.4.1" /> <id nullFlavor="NA&quot ; /> <code codeSystem="local" code="LCRP" displayName="L200.1860" /> <statusCode code="completed " /> <component> <observation moodCode="EVN& quot; classCode="OBS"> <templateId root=" 2.16.840.1.675447.10.20.22.4.2" /> <id nullFlavor="NA& quot; /> <code codeSystem="local" code="300.3650" displayName="CRP - C-ReactiveProtein" /> <statusCode code="completed" /> <effectiveTime value=" 491291172610" /> <value unit="MG/L" xsi:type=&quot ;PQ" value="7.6" /> <referenceRange> <observationRange> <text>0-9</text> & lt;/observationRange> </referenceRange> </ observation> </component> </organizer> </entry>&lt ;entry> <organizer moodCode="EVN" classCode="BATTERY& quot;> <templateId root="2.16.840.1.906727.10.20.22.4.1" /& gt; <id nullFlavor="NA"/> <code codeSystem=" local" code="KWABENA" displayName="L600.0100" /> & lt;statusCode code="completed" /> <component> &lt ;observation moodCode="EVN" classCode="OBS"> &lt ;templateId root="2.16.840.1.832099.10.20.22.4.2" /> < id nullFlavor="NA" /> <code codeSystem="local&quot ; code="200.0150" displayName="POTASSIUM" /> < statusCode code="completed" /> <effectiveTime value=& quot;578267852943" /> <value unit="" xsi:type=& quot;PQ" value="Urine, Clean Catch" /> < referenceRange> <observationRange> <text>NRG</text& gt; </observationRange> </referenceRange> & lt;/observation> </component> <component> < observation moodCode="EVN" classCode="OBS"> < templateId root="2.16.840.1.542971.10.20.22.4.2" /> < id nullFlavor="NA" /> <code codeSystem="local&quot ; code="200.0200" displayName="CHLORIDE" /> < statusCode code="completed" /> <effectiveTime value=& quot;159374620725"/> <value unit="" xsi:type=&quot ;PQ" value="YELLOW" /> <referenceRange> <observationRange> <text>YELLOW</text> </observationRange> </referenceRange> </ observation> </component> <component> < observation moodCode="EVN"classCode="OBS"> < templateId root="2.16.840.1.502291.10.20.22.4.2" /> < id nullFlavor="NA" /> <code codeSystem="local&quot ; code="200.0300" displayName="ANION GAP" /> &lt ;statusCode code="completed" /> <effectiveTime value=& quot;417846773701" /> <value unit="" xsi:type=& quot;PQ" value="CLEAR" /> <referenceRange> <observationRange> <text>NRG</text> </observationRange> </referenceRange> </ observation> </component> <component> < observation moodCode="EVN" classCode="OBS"> < templateId root="2.16.840.1.538107.10.20.22.4.2" /> < id nullFlavor="NA" /> <code codeSystem="local&quot ; code="200.0350" displayName="BLOOD UREA NITROGEN" /> <statusCode code="completed" /> < effectiveTime value="777401879289" /> <value unit=&quot ;" xsi:type="PQ" value="6.0" /> < referenceRange> <observationRange> <text>5.0-8.0& lt;/text> </observationRange> </referenceRange& gt; </observation> </component> <component> <observation moodCode="EVN" classCode="OBS"> <templateId root="2.16.840.1.053653.10.20.22.4.2" /> & lt;id nullFlavor="NA" /> <code codeSystem="local& quot; code="200.0450" displayName="BUN/CREATININE RATIO" /& gt; <statusCode code="completed" /> < effectiveTime value="906250574919" /> <value unit=&quot ;" xsi:type="PQ" value="NEGATIVE" /> < referenceRange> <observationRange> <text> NEGATIVE</text> </observationRange> </ referenceRange> </observation> </component> < component> <observation moodCode="EVN" classCode=" OBS"> <templateId root="2.16.840.1.513444.10.20.22.4.2& quot; /> <id nullFlavor="NA" /> <code codeSystem="local" code="200.0500" displayName="GLUCOSE " /> <statusCode code="completed" /> & lt;effectiveTime value="637363178721" /> <value unit=& quot;" xsi:type="PQ" value="NEGATIVE" /> & lt;referenceRange> <observationRange> <text& gt;NEGATIVE</text> </observationRange> </ referenceRange> </observation> </component> < component> <observation moodCode="EVN" classCode="OBS" > <templateId root="2.16.840.1.579569.10.20.22.4.2" /& gt; <id nullFlavor="NA" /> <code codeSystem=& quot;local" code="200.0600" displayName="CALCIUM"/> <statusCode code="completed" /> < effectiveTime value="384066562146" /> <value unit=&quot ;" xsi:type="PQ" value="NEGATIVE" /> < referenceRange> <observationRange> <text> NEGATIVE</text> </observationRange> </ referenceRange> </observation> </component> < component> <observation moodCode="EVN" classCode=" OBS"> <templateId root="2.16.840.1.997350.10.20.22.4.2& quot; /> <id nullFlavor="NA" /> <code codeSystem="local" code="200.0750" displayName=" BILIRUBIN, CONJUG &amp;UNCONJUG" /> <statusCode code ="completed" /> <effectiveTime value="696028895332 " /> <value unit="" xsi:type="PQ" value= "NEGATIVE" /> <referenceRange> < observationRange> <text>NEGATIVE</text> & lt;/observationRange> </referenceRange> </ observation> </component> <component> < observation moodCode="EVN" classCode="OBS"> < templateId root="2.16.840.1.116639.10.20.22.4.2" /> < id nullFlavor="NA" /> <code codeSystem="local" code=& quot;200.0325" displayName="Specific [place],Urine" /> <statusCode code="completed" /> <effectiveTime value="180305696282" /> <value unit="" xsi: type="PQ" value="<=1.005" /> < interpretationCode codeSystem="local" code="*" /> <referenceRange> <observationRange> <text>1.015 -1.025</text> </observationRange> </ referenceRange> </observation> </component> < component> <observation moodCode="EVN" classCode=" OBS"> <templateId root="2.16.840.1.461549.10.20.22.4.2& quot; /> <id nullFlavor="NA" /> <code codeSystem="local" code="200.0410" displayName=" Leukocyte Esterase,Urine" /> <statusCode code=" completed" /> <effectiveTime value="715105667084" /> <value unit="" xsi:type="PQ" value=" NEGATIVE" /> <referenceRange> < observationRange> <text>NEGATIVE</text> </ observationRange> </referenceRange> </observation&gt ; </component> <component> <observation moodCode ="EVN" classCode="OBS"> <templateId root=& quot;2.16.840.1.637497.10.20.22.4.2" /> <id nullFlavor=&quot ;NA" /> <code codeSystem="local" code=" 200.0420" displayName="Nitrate,Urine" /> < statusCode code="completed" /> <effectiveTime value=& quot;991436236281" /> <value unit="" xsi:type=& quot;PQ" value="NEGATIVE" /> <referenceRange> <observationRange> <text>NEGATIVE</text& gt; </observationRange> </referenceRange> </ observation> </component> <component> < observation moodCode="EVN" classCode="OBS"> < templateId root="2.16.840.1.329666.10.20.22.4.2" /> < id nullFlavor="NA" /> <code codeSystem="local&quot ; code="200.0740" displayName="Urobilinogen,Urine" /> &lt ;statusCode code="completed" /> <effectiveTime value=& quot;708590916686" /> <value unit="EU/DL" xsi:type ="PQ" value="0.2" /> <referenceRange> <observationRange> <text>NORMAL</text> </observationRange> </referenceRange> < /observation> </component> <component> < observation moodCode="EVN" classCode="OBS"> < templateId root="2.16.840.1.218454.10.20.22.4.2" /> < id nullFlavor="NA" /> <code codeSystem="local&quot ; code="200.0825" displayName="Occult Blood,Urine - Dipstick&quot ; /> <statusCode code="completed" /> < effectiveTime value="692784744993" /> <value unit=&quot ;" xsi:type="PQ" value="NEGATIVE" /> < referenceRange> <observationRange> <text> NEGATIVE</text> </observationRange> </ referenceRange> </observation> </component> < component> <observation moodCode="EVN" classCode=" OBS"> <templateId root="2.16.840.1.995377.10.20.22.4.2& quot; /> <id nullFlavor="NA" /> <code codeSystem="local" code="200.0992" displayName="Urine Microscopic (UA)" /><statusCode code="completed" /> <effectiveTime value="606582336913" /> <value unit="" xsi:type="PQ" value="Microscopic Not Ind.&quot ; /> <referenceRange> <observationRange> <text>NRG</text> </observationRange> </referenceRange> </observation> </component> & lt;/organizer> </entry> <entry> <organizer moodCode=" EVN" classCode="BATTERY"> <templateId root=" 2.16.840.1.450505.10.20.22.4.1" /> <id nullFlavor="NA&quot ; /> <code codeSystem="local" code="GLUN" displayName="Glucose NPT" /> <statusCode code="completed& quot; /> <component> <observation moodCode="EVN& quot; classCode="OBS"> <templateId root=" 2.16.840.1.863675.10.20.22.4.2" /> <id nullFlavor="NA& quot; /> <code codeSystem="local" code="GLUN&quot ; displayName="Glucose NPT" /> <statusCode code=" completed" /> <effectiveTime value="675595101758" /> <value unit="mg/dL" xsi:type="PQ" value=& quot;93" /> <referenceRange> <observationRange& gt; <text>70-100</text> </ observationRange> </referenceRange> </observation&gt ; </component> </organizer> </entry> <entry> <organizer moodCode="EVN" classCode="BATTERY"> <templateId root="2.16.840.1.565043.10.20.22.4.1" /> < id nullFlavor="NA" /> <code codeSystem="local" code="LCBC" displayName="L100.0050" /> < statusCode code="completed" /> <component> < observation moodCode="EVN" classCode="OBS"> < templateId root="2.16.840.1.625389.10.20.22.4.2" /> < id nullFlavor="NA" /> <code codeSystem="local&quot ; code="100.0150" displayName="WBC - WHITE BLOOD COUNT" /&gt ; <statusCode code="completed" /> < effectiveTime value="877399327151" /> <value unit=&quot ;T/MM3" xsi:type="PQ" value="12.8" /> < interpretationCode codeSystem="local" code="*" /> <referenceRange> <observationRange> < text>4.5-11.0</text> </observationRange> </ referenceRange> </observation> </component> < component> <observation moodCode="EVN" classCode=" OBS"> <templateId root="2.16.840.1.426027.10.20.22.4.2& quot; /> <id nullFlavor="NA" /> <code codeSystem= "local" code="100.0250" displayName="RED BLOOD COUNT& quot; /> <statusCode code="completed" /> & lt;effectiveTime value="480246735824" /> <value unit=& quot;M/MM3" xsi:type="PQ" value="5.01" /> & lt;referenceRange> <observationRange> <text& gt;4.00-5.20</text> </observationRange> </ referenceRange> </observation> </component> < component> <observation moodCode="EVN" classCode=" OBS"> <templateId root="2.16.840.1.291412.10.20.22.4.2& quot; /> <idnullFlavor="NA" /> <code codeSystem="local" code="100.0300" displayName="HGB - HEMOGLOBIN" /> <statusCode code="completed" /> <effectiveTime value="490070491492" /> < value unit="GM/DL" xsi:type="PQ" value="13.9" /&gt ; <referenceRange> <observationRange> & lt;text>12-16</text> </observationRange> < /referenceRange> </observation> </component> < component> <observation moodCode="EVN" classCode=" OBS"> <templateId root="2.16.840.1.514502.10.20.22.4.2&quot ; /> <id nullFlavor="NA" /> <code codeSystem="local" code="100.0400" displayName="HCT - HEMATOCRIT" /> <statusCode code="completed" /> <effectiveTime value="230192245363" /> <value unit="%" xsi:type="PQ" value="41.7" /> <referenceRange><observationRange> <text& gt;36-46</text> </observationRange> </ referenceRange> </observation> </component> < component> <observation moodCode="EVN" classCode=" OBS"> <templateId root="2.16.840.1.181646.10.20.22.4.2& quot; /> <id nullFlavor="NA" /> <code codeSystem="local" code="100.0550" displayName="MEAN CORPUSCULAR VOLUME" /> <statusCode code="completed&quot ; /> <effectiveTime value="420410895930" /> < value unit="UM3" xsi:type="PQ" value="83.2" /> <referenceRange> <observationRange> <text>80-100</text> </observationRange> </referenceRange> </observation> </component> <component> <observation moodCode="EVN" classCode=& quot;OBS"> <templateId root=" 2.16.840.1.544638.10.20.22.4.2" /> <id nullFlavor="NA& quot; /> <code codeSystem="local" code="100.0600& quot; displayName="MEAN CORPUSCULAR HGB" /> < statusCode code="completed" /> <effectiveTime value=& quot;948154343173" /> <value unit="UUG" xsi:type=& quot;PQ" value="27.7" /> <referenceRange> <observationRange> <text>26-34</text> </observationRange></referenceRange> </observation > </component> <component> <observation moodCode ="EVN" classCode="OBS"> <templateId root=& quot;2.16.840.1.938699.10.20.22.4.2" /> <id nullFlavor=&quot ;NA" /> <code codeSystem="local" code=" 100.0650" displayName="MEAN CORPUSCULAR HGB CONC(MCHC" /> <statusCode code="completed" /> < effectiveTime value="779976511991" /> <value unit=&quot ;GM/DL" xsi:type="PQ" value="33.3" /> < referenceRange> <observationRange> <text> 31-37</text> </observationRange> </referenceRange&gt ; </observation> </component> <component> <observation moodCode="EVN" classCode="OBS"> <templateId root="2.16.840.1.551574.10.20.22.4.2" /> <id nullFlavor="NA" /> <code codeSystem=" local" code="100.0750" displayName="RDW STANDARD DEVIATION& quot; /> <statusCode code="completed" /> & lt;effectiveTime value="400431693577" /> <value unit=& quot;FL" xsi:type="PQ" value="43.6" /> < referenceRange> <observationRange> <text> 36.9-50.2</text> </observationRange> </ referenceRange> </observation> </component> < component> <observation moodCode="EVN" classCode="OBS& quot;> <templateId root="2.16.840.1.464734.10..22.4.2&quot ; /> <id nullFlavor="NA" /> <code codeSystem="local" code="100.0850" displayName="PLT - PLATELET COUNT" /> <statusCode code="completed" /& gt; <effectiveTime value="827120679289" /> &lt ;value unit="T/MM3" xsi:type="PQ" value="347" /&gt ; <referenceRange> <observationRange> <text>130-400</text> </observationRange> </referenceRange> </observation> </component> <component> <observation moodCode="EVN" classCode="OBS"> <templateId root=" 2.16.840.1.393632.10.20.22.4.2" /> <id nullFlavor="NA& quot; /> <code codeSystem="local" code="100.0950" displayName="MEAN PLATELET VOLUME" /> <statusCode code= "completed" /> <effectiveTime value="289968463548& quot; /> <value unit="UM3" xsi:type="PQ" value="9.0" /> <interpretationCode codeSystem=" local" code="*" /> <referenceRange> <observationRange> <text>9.4-12.4</text> </observationRange> </referenceRange> </observation > </component> <component> <observation moodCode="EVN" classCode="OBS"> <templateId root="2.16.840.1.813298.10.20.22.4.2" /> <id nullFlavor ="NA" /> <code codeSystem="local" code=" 100.1050" displayName="NEUTROPHILS % (AUTO)" /> <statusCode code="completed" /> <effectiveTime value="004323047398" /> <value unit="%& quot; xsi:type="PQ" value="62.3" /> < referenceRange> <observationRange><text>33-66</text > </observationRange> </referenceRange> </observation> </component> <component> &lt ;observation moodCode="EVN" classCode="OBS"> &lt ;templateId root="2.16.840.1.339484.10..22.4.2" /> < id nullFlavor="NA" /> <code codeSystem="local&quot ; code="100.1100" displayName="LYMPHOCYTES % (AUTO)&quot ; /> <statusCode code="completed" /> < effectiveTime value="692588776443" /> <value unit=&quot ;%" xsi:type="PQ" value="23.6" /> & lt;referenceRange> <observationRange> <text>23-45& lt;/text> </observationRange> </referenceRange& gt; </observation> </component> <component> <observation moodCode="EVN" classCode="OBS"> <templateId root="2.16.840.1.717991.10.20.22.4.2" /> <id nullFlavor="NA" /> <code codeSystem=&quot ;local" code="100.1150" displayName="MONOCYTES % ( AUTO)" /> <statusCode code="completed" /> <effectiveTime value="707049474779" /> <value unit="%" xsi:type="PQ" value="6.2" /> <referenceRange> <observationRange> < text>0-9.0</text> </observationRange> </ referenceRange> </observation> </component> < component> <observation moodCode="EVN" classCode=" OBS"> <templateId root="2.16.840.1.644424.10.20.22.4.2& quot; /> <id nullFlavor="NA" /> <code codeSystem="local" code="100.1200" displayName=" EOSINOPHILS % (AUTO)" /> <statusCode code=" completed" /> <effectiveTime value="059711750060" /> <value unit="%" xsi:type="PQ" value="7.0" /> <interpretationCode codeSystem=" local" code="*" /> <referenceRange> <observationRange> <text>0-4</text> & lt;/observationRange> </referenceRange> </observation> </component> <component> <observation moodCode=& quot;EVN" classCode="OBS"> <templateId root=" 2.16.840.1.553440.10.20.22.4.2" /> <id nullFlavor="NA& quot; /> <code codeSystem="local" code="100.1250& quot; displayName="BASOPHILS % (AUTO)" /> < statusCode code="completed" /> <effectiveTime value=& quot;931903581644" /> <value unit="%" xsi: type="PQ" value="0.5" /> <referenceRange> <observationRange> <text>0-2</text> </observationRange> </referenceRange> </ observation> </component> <component> < observation moodCode="EVN" classCode="OBS"> < templateId root="2.16.840.1.663864.10.20.22.4.2" /> < id nullFlavor="NA" /> <code codeSystem="local&quot ; code="100.1275" displayName="IMMATURE GRANULOCYTE % ( AUTO)" /> <statusCode code="completed" /> <effectiveTime value="712296090109" /> <value unit="%" xsi:type="PQ" value="0.4" /> <referenceRange> <observationRange> < text>0.0-0.5</text> </observationRange> </ referenceRange> </observation> </component> < component> <observation moodCode="EVN" classCode=" OBS"> <templateId root="2.16.840.1.792864.10.20.22.4.2& quot; /> <id nullFlavor="NA" /> <code codeSystem="local" code="100.1300" displayName=" NEUTROPHILS # (AUTO)" /> <statusCode code="completed& quot; /> <effectiveTime value="599535100064" /> <value unit="T/MM3" xsi:type="PQ" value="8.0& quot; /> <interpretationCode codeSystem="local" code=& quot;*"/> <referenceRange> < observationRange> <text>1.8-7.7</text> & lt;/observationRange> </referenceRange> </ observation> </component> <component> < observation moodCode="EVN" classCode="OBS"> < templateId root="2.16.840.1.971652.10.20.22.4.2" /> < id nullFlavor="NA" /> <code codeSystem="local&quot ; code="100.1350" displayName="LYMPHOCYTES # (AUTO)" /> <statusCode code="completed" /> < effectiveTime value="995138493174" /> <value unit=&quot ;T/MM3" xsi:type="PQ" value="3.0" /> < referenceRange> <observationRange> <text> 1-4.8</text> </observationRange> </ referenceRange> </observation> </component> < component> <observation moodCode="EVN" classCode=" OBS"> <templateId root="2.16.840.1.037219.10.20.22.4.2& quot; /> <id nullFlavor="NA" /> <code codeSystem="local" code="100.1400" displayName=" MONOCYTES # (AUTO)" /> <statusCode code="completed&quot ; /> <effectiveTime value="676560114246" /> &lt ;value unit="T/MM3" xsi:type="PQ" value="0.8" /&gt ; <referenceRange> <observationRange> <text>0-0.8</text> </observationRange> </referenceRange> </observation> </component> <component> <observation moodCode="EVN" classCode=& quot;OBS"> <templateId root=" 2.16.840.1.795948.10.20.22.4.2" /> <id nullFlavor="NA& quot; /> <code codeSystem="local" code="100.1450& quot; displayName="EOSINOPHILS # (AUTO)" /> < statusCode code="completed" /> <effectiveTime value=& quot;929740990598" /> <value unit="T/MM3" xsi:type ="PQ" value="0.9" /> <interpretationCode codeSystem="local" code="*" /> < referenceRange> <observationRange> <text>0- 0.5</text> </observationRange> </ referenceRange> </observation> </component> < component> <observation moodCode="EVN" classCode=" OBS"> <templateId root="2.16.840.1.489222.10.20.22.4.2& quot; /> <id nullFlavor="NA" /> <code codeSystem="local" code="100.1500" displayName=" BASOPHILS # (AUTO)" /> <statusCode code="completed&quot ; /> <effectiveTime value="617372945306" /> <value unit="T/MM3" xsi:type="PQ" value="0.1&quot ; /> <referenceRange><observationRange> &lt ;text>0-0.2</text> </observationRange> </ referenceRange> </observation> </component> < component> <observation moodCode="EVN" classCode=" OBS"> <templateId root="2.16.840.1.825420.10.20.22.4.2& quot; /> <id nullFlavor="NA" /> <code codeSystem="local" code="100.1525" displayName=" IMMATURE GRANULOCYTE # (AUTO)" /> <statusCode code=" completed" /> <effectiveTime value="232657496010" /> <value unit="T/MM3" xsi:type="PQ" value=& quot;0.05" /> <interpretationCode codeSystem="local& quot; code="*" /> <referenceRange> < observationRange> <text>0.00-0.03</text> </observationRange> </referenceRange> </observation&gt ; </component> </organizer> </entry> <entry> <organizer moodCode="EVN" classCode="BATTERY"> <templateId root="2.16.840.1.835589.10.20.22.4.1" /> < id nullFlavor="NA" /> <code codeSystem="local" code="LMAG" displayName="L200.2000" /> < statusCode code="completed" /> <component> < observation moodCode="EVN" classCode="OBS"> < templateId root="2.16.840.1.312628.10.20.22.4.2" /> < id nullFlavor="NA"/> <code codeSystem="local&quot ; code="300.2350" displayName="MAG- Magnesium" /> <statusCode code="completed" /> <effectiveTime value="313680621780" /> <value unit="MG/DL" xsi:type="PQ" value="2.2" /> <referenceRange& gt; <observationRange> <text>1.6-2.3</ text> </observationRange> </referenceRange> </observation> </component> </organizer> </ entry> <entry> <organizer moodCode="EVN" classCode=& quot;BATTERY"> <templateId root=" 2.16.840.1.371531.10.20.22.4.1" /> <id nullFlavor="NA&quot ; /> <code codeSystem="local" code="LCMP" displayName="L200.0020" /> <statusCode code="completed " /> <component> <observation moodCode="EVN" classCode="OBS"> <templateId root=" 2.16.840.1.023385.10.20.22.4.2" /> <id nullFlavor="NA& quot; /> <code codeSystem="local" code="300.0400" displayName="FUNGAL CULTURE." /> <statusCode code=&quot ;completed" /> <effectiveTime value="352760714737&quot ; /> <value unit="MG/DL" xsi:type="PQ" value= "1.2" /> <referenceRange> < observationRange> <text>0.7-1.2</text> </ observationRange> </referenceRange> </observation&gt ; </component> <component> <observation moodCode ="EVN" classCode="OBS"> <templateId root=& quot;2.16.840.1.681859.10.20.22.4.2" /> <id nullFlavor=&quot ;NA" /> <code codeSystem="local" code=" 300.0450" displayName="FUNGAL CULTURE, BLOOD." /> &lt ;statusCode code="completed" /> <effectiveTime value=& quot;824265638269" /> <value unit="RATIO" xsi:type ="PQ" value="13" /> <referenceRange> <observationRange> <text>6-26</text> </ observationRange> </referenceRange> </observation&gt ; </component> <component> <observation moodCode ="EVN" classCode="OBS"> <templateId root=& quot;2.1[id number]" /> <id nullFlavor=&quot ;NA" /> <code codeSystem="local" code=" 300.0100" displayName="NA - Sodium" /><statusCode code=& quot;completed" /> <effectiveTime value="[id number]& quot; /> <value unit="MEQ/L" xsi:type="PQ" value="141" /> <referenceRange> < observationRange> <text>134-144</text> & lt;/observationRange> </referenceRange> </ observation> </component> <component> < observation moodCode="EVN" classCode="OBS"> < templateId root="[id number]" /> < id nullFlavor="NA" /> <code codeSystem="local&quot ; code="300.0150" displayName="Potassium" /> &lt ;statusCode code="completed" /> <effectiveTime value=& quot;[id number]" /> <value unit="MEQ/L" xsi:type=" PQ" value="3.9" /> <referenceRange> <observationRange> <text>3.6-5</text> &lt ;/observationRange> </referenceRange> </observation& gt;</component> <component> <observation moodCode=& quot;EVN" classCode="OBS"> <templateId root=" 2.16.840.1.018412.10.20.22.4.2" /> <id nullFlavor="NA" /> <code codeSystem="local" code="300.0200" displayName="Chloride" /> <statusCode code=" completed" /> <effectiveTime value="754684528041" /> <value unit="MEQ/L" xsi:type="PQ" value=& quot;107" /> <referenceRange> < observationRange> <text>98-107</text> &lt ;/observationRange> </referenceRange> </observation& gt; </component> <component> <observation moodCode="EVN" classCode="OBS"> <templateId root="2.16.840.1.458456.10..22.4.2" /> <id nullFlavor ="NA" /> <code codeSystem="local" code=" 300.0250" displayName="CO2 - Carbon Dioxide" /> < statusCode code="completed" /> <effectiveTime value=& quot;708160056605" /> <value unit="MEQ/L" xsi:type ="PQ" value="25" /> <referenceRange> < observationRange> <text>22-30</text> < /observationRange> </referenceRange> </observation& gt; </component> <component> <observation moodCode="EVN" classCode="OBS"><templateId root=" 2.16.840.1.981319.10.20.22.4.2" /> <id nullFlavor="NA& quot; /> <code codeSystem="local" code="300.0300& quot; displayName="Anion Gap" /> <statusCode code=&quot ;completed" /> <effectiveTime value="312297139636&quot ; /> <value unit="MEQ/L" xsi:type="PQ" value= "9" /> <referenceRange> < observationRange> <text>5-15</text> </ observationRange> </referenceRange> </observation&gt ; </component> <component> <observation moodCode ="EVN" classCode="OBS"> <templateId root=& quot;2.16.840.1.727799.10.20.22.4.2" /> <id nullFlavor=&quot ;NA" /> <code codeSystem="local" code="300.0350&quot ; displayName="BUN - Blood Urea Nitrogen" /> < statusCode code="completed" /> <effectiveTime value=& quot;300528243612" /> <value unit="MG/DL" xsi:type ="PQ" value="16.0" /> <referenceRange> <observationRange> <text>7-17</text> </observationRange> </referenceRange> </ observation> </component> <component> < observation moodCode="EVN" classCode="OBS"> < templateId root="2.16.840.1.127791.10.20.22.4.2" /> < id nullFlavor="NA" /><code codeSystem="local" code=& quot;300.0410" displayName="Glomerular Filtration Rate" /> <statusCode code="completed" /> < effectiveTime value="721255913273" /> <value unit=&quot ;" xsi:type="PQ"value="53" /> < referenceRange> <observationRange> <text>NRG< /text> </observationRange> </referenceRange> </observation> </component> <component> <observation moodCode="EVN" classCode="OBS"> <templateId root="2.16.840.1.802272.10.20.22.4.2" /> <id nullFlavor="NA" /> <code codeSystem=" local" code="300.0500" displayName="Glucose" />< statusCode code="completed" /> <effectiveTime value=& quot;273929309374" /> <value unit="MG/DL" xsi:type ="PQ" value="84" /> <referenceRange> <observationRange> <text>65-110</text> </observationRange> </referenceRange> </ observation> </component> <component> < observation moodCode="EVN" classCode="OBS"> < templateId root="2.16.840.1.749118.10.20.22.4.2" /> < id nullFlavor="NA" /> <code codeSystem="local&quot ; code="300.2000" displayName="Osmolality,Calculated" /> <statusCode code="completed" /> < effectiveTime value="035103018903" /> <value unit=&quot ;MOSM/KG" xsi:type="PQ" value="271" /> < referenceRange> <observationRange> <text> 261-280</text> </observationRange> </ referenceRange> </observation> </component> < component> <observation moodCode="EVN" classCode=" OBS"> <templateId root="2.16.840.1.142341.10..22.4.2& quot; /> <id nullFlavor="NA" /> <code codeSystem="local" code="300.2200" displayName="Calcium " /> <statusCode code="completed" /> & lt;effectiveTime value="169521236037" /> <value unit=& quot;MG/DL" xsi:type="PQ" value="8.8" /> & lt;referenceRange> <observationRange> <text& gt;8.4-10.2</text> </observationRange> </ referenceRange> </observation> </component> < component> <observation moodCode="EVN" classCode=" OBS"> <templateId root="2.16.840.1.628261.10.20.22.4.2& quot; /> <id nullFlavor="NA" /> <code codeSystem= "local" code="300.2700" displayName="Bilirubin,Total& quot; /> <statusCode code="completed" /> & lt;effectiveTime value="596368555496" /> <value unit=& quot;MG/DL" xsi:type="PQ" value="0.60" /> & lt;referenceRange> <observationRange> <text& gt;0.20-1.30</text> </observationRange> </ referenceRange> </observation> </component> < component> <observation moodCode="EVN" classCode=" OBS"> <templateId root="2.16.840.1.358469.10.20.22.4.2& quot; /> <idnullFlavor="NA" /> <code codeSystem="local" code="300.2975" displayName=" Alkaline Phosphatase" /> <statusCode code="completed& quot; /> <effectiveTime value="787264421257" /> <value unit="U/L" xsi:type="PQ" value="66&quot ; /> <referenceRange> <observationRange> <text>38-126</text> </observationRange> </referenceRange> </observation> </component> <component> <observation moodCode="EVN" classCode=& quot;OBS"> <templateId root="2.16.840.1.119997.10.20.22.4.2 " /> <id nullFlavor="NA" /> <code codeSystem="local" code="300.3050" displayName="AST - Aspartate Amino Transfer" /> <statusCode code=" completed" /> <effectiveTime value="612799750542" /> <value unit="U/L" xsi:type="PQ" value=& quot;18" /> <referenceRange> <observationRange& gt; <text>14-36</text> </observationRange > </referenceRange> </observation> </ component> <component> <observation moodCode="EVN" classCode="OBS"> <templateId root=" 2.16.840.1.462876.10.20.22.4.2" /> <id nullFlavor="NA& quot; /> <code codeSystem="local" code="300.3100& quot; displayName="ALT" /> <statusCode code=" completed" /> <effectiveTime value="643901611207" /> <value unit="U/L" xsi:type="PQ" value=& quot;30" /> <referenceRange> < observationRange> <text>9-52</text> </ observationRange> </referenceRange> </observation&gt ; </component> <component> <observation moodCode ="EVN" classCode="OBS"> <templateId root=& quot;2.16.840.1.522890.10.20.22.4.2" /> <id nullFlavor=&quot ;NA" /> <code codeSystem="local" code="300.3110" displayName="TP - Total Protein" /> <statusCode code=& quot;completed" /> <effectiveTime value="623544290803& quot; /> <value unit="G/DL" xsi:type="PQ" value="7.2" /> <referenceRange> < observationRange> <text>6.3-8.2</text> </ observationRange> </referenceRange> </observation&gt ; </component> <component> <observation moodCode ="EVN" classCode="OBS"> <templateId root=& quot;2.16.840.1.832950.10.20.22.4.2" /> <id nullFlavor=&quot ;NA" /> <code codeSystem="local" code=" 300.3120" displayName="Albumin Level" /> < statusCode code="completed" /> <effectiveTime value=& quot;842092324901" /> <value unit="G/DL" xsi:type= "PQ" value="4.2" /> <referenceRange> <observationRange> <text>3.5-5.0</text> </observationRange> </referenceRange></ observation> </component> <component> < observation moodCode="EVN" classCode="OBS"> < templateId root="2.16.840.1.674806.10.20.22.4.2" /> < id nullFlavor="NA" /> <code codeSystem="local&quot ; code="300.3130" displayName="Globulin" /> < statusCode code="completed" /> <effectiveTime value=& quot;480638570877" /> <value unit="G/DL" xsi:type=& quot;PQ" value="3.0" /> <referenceRange> < observationRange> <text>2.4-3.6</text> & lt;/observationRange> </referenceRange> </ observation> </component> <component> < observation moodCode="EVN" classCode="OBS"> < templateId root="2.16.840.1.809199.10.20.22.4.2" /> < id nullFlavor="NA" /> <code codeSystem="local&quot ; code="300.3140" displayName="Albumin/Globulin Ratio" /&gt ; <statusCode code="completed" /> < effectiveTime value="803662522869" /> <value unit="RATIO " xsi:type="PQ" value="1.4" /> < referenceRange> <observationRange> <text> 1.1-2.2</text> </observationRange> </ referenceRange> </observation> </component> < component> <observation moodCode="EVN" classCode=" OBS"> <templateId root="2.16.840.1.881222.10.20.22.4.2& quot; /> <id nullFlavor="NA" /> <code codeSystem="local" code="300.0095" displayName=" LICTERUS" /> <statusCode code="completed" /> <effectiveTime value="757370794387" /> < value unit="" xsi:type="PQ" value="< 2" /& gt; <referenceRange> <observationRange> <text>0-7</text> </observationRange> </referenceRange> </observation> </component> <component> <observation moodCode="EVN" classCode= "OBS"> <templateId root=" 2.16.840.1.596171.10.20.22.4.2" /> <id nullFlavor="NA& quot; /> <code codeSystem="local" code="300.0096& quot; displayName="LHEMOLYSIS" /> <statusCode code=& quot;completed" /> <effectiveTime value="027818003116" /> <value unit="" xsi:type="PQ" value="& amp;lt; 15" /> <referenceRange> < observationRange> <text>0-25</text> </ observationRange> </referenceRange> </observation&gt ; </component> <component> <observation moodCode ="EVN" classCode="OBS"> <templateId root=& quot;2.16.840.1.152055...22.4.2" /> <id nullFlavor=&quot ;NA" /> <code codeSystem="local" code=" 300.0097" displayName="LTURBIDITY" /> <statusCode code="completed" /> <effectiveTime value=" 830662480543" /> <value unit="" xsi:type="PQ& quot; value="< 20" /> <referenceRange> <observationRange> <text>0-20</text> </observationRange> </referenceRange> </ observation> </component> </organizer> </entry> & lt;entry> <organizer moodCode="EVN" classCode="BATTERY& quot;> <templateId root="2.16.840.1.551113.10.20.22.4.1" /&gt ; <id nullFlavor="NA" /> <code codeSystem=" local" code="LPHOS" displayName="L200.0630" /> <statusCode code="completed" /> <component> < observation moodCode="EVN" classCode="OBS"> < templateId root="2.16.840.1.278437.10.20.22.4.2" /> < id nullFlavor="NA" /> <code codeSystem="local" code="300.2300" displayName="Phosphorus" /> < statusCode code="completed" /> <effectiveTime value=& quot;257047743066" /> <value unit="MG/DL" xsi:type ="PQ" value="3.2" /> <referenceRange> <observationRange> <text>2.5-4.5</text> & lt;/observationRange> </referenceRange> </ observation> </component> </organizer> </entry> & lt;entry> <organizer moodCode="EVN" classCode="BATTERY& quot;> <templateId root="2.16.840.1.155832.10.20.22.4.1" /& gt; <id nullFlavor="NA" /> <code codeSystem=" local" code="LLDH" displayName="L200.1855" /> & lt;statusCode code="completed" /> <component> &lt ;observation moodCode="EVN" classCode="OBS"> &lt ;templateId root="2.16.840.1.568096.10.20.22.4.2" /> < id nullFlavor="NA" /> <codecodeSystem="local&quot ; code="300.3250" displayName="LDH - Lactate Dehydrogenase" /> <statusCode code="completed" /> < effectiveTime value="478840799220" /> <value unit=&quot ;U/L" xsi:type="PQ" value="337" /> < referenceRange> <observationRange> <text>313-888< /text> </observationRange> </referenceRange> </observation> </component> </organizer> < /entry> <entry> <organizer moodCode="EVN" classCode=& quot;BATTERY"> <templateId root=" 2.16.840.1.053567.10.20.22.4.1" /> <id nullFlavor="NA&quot ; /> <code codeSystem="local" code="LTSH" displayName="L200.3850" /> <statusCode code="completed " /> <component> <observation moodCode="EVN& quot; classCode="OBS"> <templateId root=" 2.16.840.1.021624.10.20.22.4.2" /> <id nullFlavor="NA& quot; /> <codecodeSystem="local" code="300.5500& quot; displayName="TSH - Thyroid Stim Hormone" /> < statusCode code="completed" /> <effectiveTime value=& quot;161466701119" /> <value unit="MIU/L" xsi:type ="PQ" value="78.90" /> <interpretationCode codeSystem="local" code="" /> < referenceRange> <observationRange> <text> 0.47-4.68</text> </observationRange> </ referenceRange> </observation> </component> </ organizer> </entry> <entry> <organizer moodCode="EVN " classCode="BATTERY"> <templateId root=" 2.16.840.1.906367.10.20.22.4.1" /> <id nullFlavor="NA&quot ; /> <code codeSystem="local" code="LACTH-A" displayName="L750.0200" /> <statusCode code="completed& quot; /> <component> <observation moodCode="EVN& quot; classCode="OBS"> <templateId root=" 2.16.840.1.589318.10.20.22.4.2" /> <id nullFlavor="NA& quot; /> <code codeSystem="local" code="902.0325& quot; displayName="LACTH-A" /> <statusCode code=" completed" /> <effectiveTime value="939361439052" /> <value unit="pg/mL" xsi:type="PQ" value=& quot;19" /> <referenceRange> < observationRange> <text>NRG</text> </ observationRange> </referenceRange> </observation&gt ; </component> </organizer> </entry> <entry> <organizer moodCode="EVN" classCode="BATTERY"> <templateId root="2.16.840.1.630185.10.20.22.4.1" /> < id nullFlavor="NA" /> <code codeSystem="local" code="LCORTA-A" displayName="L750.2985" /> < statusCode code="completed" /> <component> < observation moodCode="EVN" classCode="OBS"> < templateId root="2.16.840.1.046028.10.20.22.4.2" /> < id nullFlavor="NA" /> <code codeSystem="local&quot ; code="902.5650" displayName="Cortisol AM, Serum - AMS" /& gt; <statusCode code="completed" /> < effectiveTime value="107690105408" /> <value unit=&quot ;ug/dL" xsi:type="PQ" value="8" /> < referenceRange> <observationRange> <text> 3-20</text> </observationRange> </ referenceRange> </observation> </component> </ organizer> </entry> <entry> <organizer moodCode="EVN " classCode="BATTERY"> <templateId root=" 2.16.840.1.896554.10.20.22.4.1" /> <id nullFlavor="NA&quot ; /> <code codeSystem="local" code="LT4F" displayName="L200.3600" /> <statusCode code="completed " /> <component> <observation moodCode="EVN& quot; classCode="OBS"> <templateId root=" 2.16.840.1.119910.10.20.22.4.2" /> <id nullFlavor="NA& quot; /> <code codeSystem="local" code="300.5250& quot; displayName="Free T4 (Free Thyroxine)-Batch" /> < statusCode code="completed" /> <effectiveTime value=& quot;110699600966" /> <value unit="NG/DL" xsi:type ="PQ" value="0.68" /> <interpretationCode codeSystem="local" code="*" /> < referenceRange> <observationRange> <text> 0.78-2.19</text> </observationRange> </ referenceRange> </observation> </component> </ organizer> </entry> <entry> <organizer moodCode="EVN " classCode="BATTERY"> <templateId root=" 2.16.840.1.902184.10.20.22.4.1" /> <id nullFlavor="NA&quot ; /> <code codeSystem="local" code="CBCND" displayName="CBC With Platelet No Differential" /> < statusCode code="completed" /> <component> < observation moodCode="EVN" classCode="OBS"> < templateId root="2.16.840.1.592456.10.20.22.4.2" /> < id nullFlavor="NA" /> <code codeSystem="local&quot ; code="HCT" displayName="HCT" /> < statusCode code="completed" /> <effectiveTime value=& quot;991625241499" /><value unit="%" xsi:type=&quot ;PQ" value="40.1" /> <referenceRange> <observationRange> <text>37.0-47.0</text> </observationRange> </referenceRange> </ observation> </component> <component> < observation moodCode="EVN" classCode="OBS"> < templateId root="2.16.840.1.386225.10.20.22.4.2" /> < id nullFlavor="NA" /> <code codeSystem="local&quot ; code="HGB" displayName="HGB" /> < statusCode code="completed" /> <effectiveTime value=& quot;865521697257" /> <value unit="g/dL" xsi:type= "PQ" value="13.4" /> <referenceRange> <observationRange> <text>12.0-16.0</text> </observationRange> </referenceRange> </ observation> </component> <component> < observation moodCode="EVN" classCode="OBS"> < templateId root="2.16.840.1.590948.10.20.22.4.2" /> < id nullFlavor="NA" /> <code codeSystem="local&quot ; code="MCH" displayName="MCH" /> < statusCode code="completed" /> <effectiveTime value=& quot;030725709366" /> <value unit="pg" xsi:type=& quot;PQ" value="27.7" /> <referenceRange> <observationRange> <text>27.0-32.0</text> </observationRange> </referenceRange> & lt;/observation> </component> <component> < observation moodCode="EVN" classCode="OBS"> < templateId root="2.16.840.1.695478.10.20.22.4.2" /> < id nullFlavor="NA" /> <code codeSystem="local" code="MCHC" displayName="MCHC" /> <statusCode code="completed" /> <effectiveTime value=" 142368692157" /> <value unit="g/dL" xsi:type=&quot ;PQ" value="33.4" /> <referenceRange> <observationRange> <text>32.0-36.0</text> </observationRange> </referenceRange> </ observation> </component> <component> < observation moodCode="EVN" classCode="OBS"> < templateId root="2.16.840.1.250937.10.20.22.4.2" /> < id nullFlavor="NA" /> <code codeSystem="local&quot ; code="MCV" displayName="MCV" /> < statusCode code="completed" /> <effectiveTime value=& quot;596485417256" /> <value unit="fL" xsi:type="PQ& quot; value="83.0" /> <referenceRange> & lt;observationRange> <text>82.0-99.0</text> </observationRange> </referenceRange> </ observation> </component> <component> < observation moodCode="EVN" classCode="OBS"> < templateId root="2.16.840.1.250336.10.20.22.4.2" /> <id nullFlavor="NA" /> <code codeSystem="local" code="MPV" displayName="MPV" /> <statusCode code="completed" /> <effectiveTime value=" 703230116178" /> <value unit="fL" xsi:type=" PQ" value="9.2" /> <interpretationCode codeSystem= "local" code="*" /> <referenceRange> <observationRange> <text>9.4-12.4</text> </observationRange></referenceRange> </ observation> </component> <component> < observation moodCode="EVN" classCode="OBS"> < templateId root="2.16.840.1.935448.10.20.22.4.2" /> < id nullFlavor="NA" /> <code codeSystem="local&quot ; code="PLT" displayName="Platelet Count" /> &lt ;statusCode code="completed" /> <effectiveTime value=& quot;373692427277" /> <value unit="K/uL" xsi:type= "PQ" value="321" /> <referenceRange> <observationRange> <text>150-400</text> & lt;/observationRange> </referenceRange> </ observation> </component> <component> < observation moodCode="EVN" classCode="OBS"> < templateId root="2.16.840.1.478608.10.20.22.4.2" /> < id nullFlavor="NA" /> <codecodeSystem="local&quot ; code="RBC" displayName="RBC" /> < statusCode code="completed" /> <effectiveTime value=& quot;133227380879" /> <value unit="10*6/uL" xsi: type="PQ" value="4.83" /> <referenceRange> <observationRange> <text>4.00-5.20</text& gt; </observationRange> </referenceRange> </observation> </component> <component> &lt ;observation moodCode="EVN" classCode="OBS"> &lt ;templateId root="2.16.840.1.211258.10.20.22.4.2" /> < id nullFlavor="NA" /> <code codeSystem="local&quot ; code="RDW" displayName="RDW" /> < statusCode code="completed" /> <effectiveTime value=& quot;753742939975" /> <value unit="%" xsi: type="PQ" value="14.4" /> <referenceRange&gt ; <observationRange> <text>11.5-14.5</ text> </observationRange> </referenceRange> & lt;/observation> </component> <component> < observation moodCode="EVN" classCode="OBS"> < templateId root="2.16.840.1.238943.10.20.22.4.2" /><id nullFlavor="NA" /> <code codeSystem="local" code="WBCIR" displayName="WBC" /> < statusCode code="completed" /> <effectiveTime value=" 559511679971" /> <value unit="K/uL" xsi:type=&quot ;PQ" value="13.4" /> <interpretationCode codeSystem="local" code="*" /> < referenceRange> <observationRange> <text> 4.8-10.8</text> </observationRange> </ referenceRange> </observation> </component> </ organizer> </entry> <entry> <organizer moodCode="EVN " classCode="BATTERY"> <templateId root=" 2.16.840.1.303269.10.20.22.4.1" /> <id nullFlavor="NA&quot ; /> <code codeSystem="local" code="GLUN" displayName="Glucose NPT" /> <statusCode code=" completed" /> <component> <observation moodCode=& quot;EVN" classCode="OBS"> <templateId root=" 2.16.840.1.315985.10.20.22.4.2" /> <id nullFlavor="NA& quot; /> <code codeSystem="local" code="GLUN&quot ; displayName="Glucose NPT" /> <statusCode code=" completed" /> <effectiveTime value="919875475128" /> <value unit="mg/dL" xsi:type="PQ" value=& quot;98" /> <referenceRange> < observationRange> <text>70-100</text> </ observationRange> </referenceRange> </observation&gt ; </component> </organizer> </entry> <entry> <organizer moodCode="EVN" classCode="BATTERY"> <templateId root="2.16.840.1.618166.10.20.22.4.1" /> < id nullFlavor="NA" /> <code codeSystem="local" code="BMP" displayName="Basic MetabolicPanel (BMP)" /> <statusCode code="completed" /> <component> <observation moodCode="EVN" classCode="OBS"> <templateIdroot="2.16.840.1.559143.10..22.4.2" /> &lt ;id nullFlavor="NA" /> <code codeSystem="local& quot; code="AGAP" displayName="Anion Gap" /> &lt ;statusCode code="completed" /> <effectiveTime value=& quot;526494099671" /> <value unit="mEq/L" xsi:type ="PQ" value="8" /> <referenceRange> <observationRange><text>3-20</text> </ observationRange> </referenceRange> </observation> </component> <component> <observation moodCode= "EVN" classCode="OBS"> <templateId root=&quot ;2.16.840.1.142860.10..22.4.2" /> <id nullFlavor="NA& quot; /> <code codeSystem="local" code="BUN" displayName="BUN" /> <statusCodecode="completed& quot; /> <effectiveTime value="018979094207" /> <value unit="mg/dL" xsi:type="PQ" value="9" /& gt; <referenceRange> <observationRange> <text>4-20</text> </observationRange> & lt;/referenceRange> </observation> </component> <component> <observation moodCode="EVN" classCode=& quot;OBS"> <templateId root=" 2.16.840.1.991664.10.20.22.4.2" /> <id nullFlavor="NA" / > <code codeSystem="local" code="CA" displayName="Calcium" /> <statusCode code=" completed" /> <effectiveTime value="430489430399" /> <value unit="mg/dL" xsi:type="PQ" value=& quot;9.1" /> <referenceRange> <observationRange> <text>8.6-10.0</text> </observationRange& gt; </referenceRange> </observation> </ component> <component> <observation moodCode="EVN& quot; classCode="OBS"> <templateId root=" 2..840.1.569879.10.20.22.4.2" /> <id nullFlavor="NA& quot; /> <code codeSystem="local" code="CL" displayName="Chloride" /> <statusCode code=" completed" /> <effectiveTime value="029527190237" /> <value unit="mEq/L" xsi:type="PQ" value=& quot;108" /> <referenceRange> < observationRange> <text>99-109</text> &lt ;/observationRange> </referenceRange> </observation& gt; </component> <component> <observation moodCode="EVN" classCode="OBS"> <templateId root="2.16.840.1.108268.10.20.22.4.2" /> <id nullFlavor ="NA" /> <code codeSystem="local" code="CO2& quot; displayName="CO2" /> <statusCode code="completed& quot; /> <effectiveTime value="785309974535" /> <value unit="mEq/L" xsi:type="PQ" value="23& quot; /> <referenceRange> <observationRange> <text>22-32</text> </observationRange&gt ; </referenceRange> </observation> </ component> <component> <observation moodCode="EVN& quot; classCode="OBS"> <templateId root=" 2.16.840.1.479936.10.20.22.4.2" /> <id nullFlavor="NA& quot; /> <code codeSystem="local" code="CREAT&quot ; displayName="Creatinine" /> <statusCode code=" completed" /> <effectiveTime value="631012721660" /> <value unit="mg/dL" xsi:type="PQ" value="1.05 " /> <interpretationCode codeSystem="local" code=& quot;*" /> <referenceRange> < observationRange> <text>0.44-1.03</text> </observationRange> </referenceRange> </ observation> </component> <component> < observation moodCode="EVN" classCode="OBS"> < templateId root="2.16.840.1.946260.10.20.22.4.2" /> < id nullFlavor="NA" /> <code codeSystem="local&quot ; code="GLU"displayName="Glucose" /> < statusCode code="completed" /> <effectiveTime value=" 302594486600" /> <value unit="mg/dL" xsi:type=& quot;PQ" value="92" /> <referenceRange> <observationRange> <text>70-100</text> </observationRange> </referenceRange> </ observation> </component> <component> < observation moodCode="EVN" classCode="OBS"> < templateId root="2.16.840.1.236899.10.20.22.4.2" /> < id nullFlavor="NA" /> <code codeSystem="local&quot ; code="K" displayName="Potassium" /> < statusCode code="completed" /> <effectiveTime value=& quot;785134382241" /> <value unit="mEq/L" xsi:type ="PQ" value="4.1" /> <referenceRange> <observationRange> <text>3.6-5.1</text> </observationRange> </referenceRange> </ observation> </component> <component> < observation moodCode="EVN" classCode="OBS"> < templateId root="2.16.840.1.949844.10.20.22.4.2" /> < id nullFlavor="NA" /> <code codeSystem="local&quot ; code="NA" displayName="Sodium" /> < statusCode code="completed" /> <effectiveTime value=& quot;[id number]"/> <value unit="mEq/L" xsi:type= "PQ" value="139" /> <referenceRange> <observationRange> <text>136-144</text> </observationRange> </referenceRange> </ observation> </component> </organizer> </entry> & lt;entry> <organizer moodCode="EVN" classCode="BATTERY& quot;> <templateId root="[id number]" /& gt; <id nullFlavor="NA" /> <code codeSystem=" local" code="GFR" displayName="eGFR" /> < statusCode code="completed" /> <component> < observation moodCode="EVN" classCode="OBS"> < templateId root="2.16.840.1.253460.10..22.4.2" /> < id nullFlavor="NA" /> <code codeSystem="local&quot ; code="GFR" displayName="eGFR" /> < statusCode code="completed" /> <effectiveTime value=& quot;546526213426" /> <value unit="mL/min" xsi: type="PQ" value=">60" /> < referenceRange> <observationRange> <text> >60</text> </observationRange> </referenceRange& gt; </observation> </component> </organizer> & lt;/entry> <entry> <organizer moodCode="EVN" classCode ="BATTERY"> <templateId root=" 2.16.840.1.960223.10.20.22.4.1" /> <id nullFlavor="NA&quot ; /> <code codeSystem="local" code="LCBC" displayName="L100.0050" /> <statusCode code="completed " /> <component> <observation moodCode="EVN& quot; classCode="OBS"> <templateId root=" 2.16.840.1.298328.10.20.22.4.2" /> <id nullFlavor="NA& quot; /> <code codeSystem="local" code="100.0150& quot; displayName="WBC - WHITE BLOOD COUNT" /> < statusCode code="completed" /> <effectiveTime value=& quot;290778812802" /> <value unit="T/MM3" xsi:type ="PQ" value="14.1" /> <interpretationCode codeSystem="local" code="*" /> < referenceRange> <observationRange> <text>4.5- 11.0</text> </observationRange> </ referenceRange> </observation> </component> < component> <observation moodCode="EVN" classCode=" OBS"> <templateId root="2.16.840.1.727097.10.20.22.4.2&quot ; /> <id nullFlavor="NA" /> <code codeSystem="local" code="100.0250" displayName="RED BLOOD COUNT" /> <statusCode code="completed" /&gt ; <effectiveTime value="268842416047" /> <value unit="M/MM3" xsi:type="PQ" value="4.95" /> <referenceRange> <observationRange> & lt;text>4.00-5.20</text> </observationRange> </referenceRange> </observation> </component> <component> <observation moodCode="EVN" classCode=& quot;OBS"> <templateId root=" 2.16.840.1.709562.10.20.22.4.2" /> <id nullFlavor="NA& quot; /> <code codeSystem="local" code="100.0300& quot; displayName="HGB - HEMOGLOBIN" /> <statusCode code="completed" /> <effectiveTime value=" 665222434682" /> <value unit="GM/DL" xsi:type=& quot;PQ" value="13.7" /> <referenceRange> <observationRange> <text>12-16</text> </observationRange> </referenceRange> </ observation> </component> <component> < observation moodCode="EVN" classCode="OBS"> < templateId root="2.16.840.1.221982.10..22.4.2" /> < id nullFlavor="NA" /> <code codeSystem="local&quot ; code="100.0400" displayName="HCT - HEMATOCRIT" /> <statusCode code="completed" /> <effectiveTime value="562780637305" /> <value unit="%& quot; xsi:type="PQ" value="40.7" /> < referenceRange> <observationRange> <text> 36-46</text> </observationRange> </ referenceRange> </observation> </component> < component> <observation moodCode="EVN" classCode="OBS" > <templateId root="2.16.840.1.782255.10.20.22.4.2" /& gt; <id nullFlavor="NA" /> <code codeSystem=& quot;local" code="100.0550" displayName="MEAN CORPUSCULAR VOLUME" /> <statusCode code="completed" /> <effectiveTime value="328967647167" /> <value unit="UM3" xsi:type="PQ" value="82.2" /> <referenceRange> <observationRange> < text>80-100</text> </observationRange> </ referenceRange> </observation> </component> < component> <observation moodCode="EVN" classCode=" OBS"> <templateId root="2.16.840.1.917218.10.20.22.4.2& quot; /> <id nullFlavor="NA" /><code codeSystem=& quot;local" code="100.0600" displayName="MEAN CORPUSCULAR HGB" /> <statusCode code="completed" /> <effectiveTime value="552283416970" /> <value unit="UUG" xsi:type="PQ" value="27.7" /> <referenceRange> <observationRange> <text> 26-34</text> </observationRange> </ referenceRange> </observation> </component> < component> <observation moodCode="EVN" classCode=" OBS"> <templateId root="2.16.840.1.962818.10..22.4.2& quot; /> <id nullFlavor="NA" /> < codecodeSystem="local" code="100.0650" displayName=" MEAN CORPUSCULAR HGB CONC([facility]" /> <statusCode code=" completed" /> <effectiveTime value="167434913384" /> <value unit="GM/DL" xsi:type="PQ"value=& quot;33.7" /> <referenceRange> < observationRange> <text>31-37</text> </ observationRange> </referenceRange> </observation&gt ; </component> <component> <observation moodCode ="EVN" classCode="OBS"> <templateId root=& quot;2.16.840.1.656231.10..22.4.2" /> <id nullFlavor=&quot ;NA" /> <code codeSystem="local" code=" 100.0750" displayName="RDW STANDARD DEVIATION" /> &lt ;statusCode code="completed" /> <effectiveTime value=& quot;544146020659" /> <value unit="FL" xsi:type=& quot;PQ" value="42.4" /> <referenceRange> <observationRange> <text>36.9-50.2</text> & lt;/observationRange> </referenceRange> </ observation> </component> <component> < observation moodCode="EVN" classCode="OBS"> < templateId root="2.16.840.1.071068.10.20.22.4.2" /> < id nullFlavor="NA" /> <code codeSystem="local&quot ; code="100.0850" displayName="PLT - PLATELET COUNT" /> <statusCode code="completed" /> < effectiveTime value="666185894293" /> <value unit=&quot ;T/MM3" xsi:type="PQ" value="342" /> < referenceRange> <observationRange> <text> 130-400</text> </observationRange> </ referenceRange> </observation> </component> < component> <observation moodCode="EVN" classCode=" OBS"> <templateId root="2.16.840.1.789406.10.20.22.4.2& quot; /> <id nullFlavor="NA" /> <code codeSystem="local" code="100.0950" displayName="MEAN PLATELET VOLUME" /> <statusCode code="completed" /&gt ; <effectiveTime value="289992686022" /> < value unit="UM3" xsi:type="PQ" value="9.3" /> <interpretationCode codeSystem="local" code="*" /> <referenceRange> <observationRange> <text>9.4-12.4</text> </observationRange> </referenceRange> </observation> </component> <component> <observation moodCode="EVN" classCode=& quot;OBS"> <templateId root=" 2.16.840.1.383982.10.20.22.4.2"/> <id nullFlavor="NA& quot; /> <code codeSystem="local"code="100.1050& quot; displayName="NEUTROPHILS % (AUTO)" /> < statusCode code="completed" /> <effectiveTime value=& quot;730224262912" /> <value unit="%" xsi: type="PQ" value="65.9" /> <referenceRange&gt ; <observationRange> <text>33-66</text&gt ; </observationRange> </referenceRange> & lt;/observation> </component> <component> < observation moodCode="EVN" classCode="OBS"> < templateId root="2.16.840.1.088260.10.20.22.4.2" /> < id nullFlavor="NA" /> <code codeSystem="local&quot ; code="100.1100" displayName="LYMPHOCYTES % (AUTO)&quot ; /> <statusCode code="completed" /> < effectiveTime value="427988116424" /> <value unit=&quot ;%" xsi:type="PQ" value="21.3" /> & lt;interpretationCode codeSystem="local" code="*" /> < referenceRange> <observationRange> <text> 23-45</text> </observationRange> </ referenceRange> </observation> </component> < component> <observation moodCode="EVN" classCode=" OBS"> <templateId root="2.16.840.1.151194.10.20.22.4.2& quot; /> <id nullFlavor="NA" /> <code codeSystem="local" code="100.1150" displayName=" MONOCYTES % (AUTO)" /> <statusCode code=" completed" /> <effectiveTime value="312787242342" /> <value unit="%" xsi:type="PQ" value=& quot;5.2" /> <referenceRange> <observationRange&gt ; <text>0-9.0</text> </observationRange& gt; </referenceRange> </observation> </ component> <component> <observation moodCode="EVN& quot; classCode="OBS"> <templateId root=" 2.16.840.1.742687.10.20.22.4.2" /> <id nullFlavor="NA& quot; /> <code codeSystem="local" code="100.1200& quot; displayName="EOSINOPHILS % (AUTO)" /> < statusCode code="completed" /> <effectiveTime value=& quot;553234084015" /> <value unit="%" xsi: type="PQ" value="6.7" /> <interpretationCode codeSystem="local" code="*" /> < referenceRange> <observationRange> <text> 0-4</text> </observationRange> </referenceRange> </observation> </component> <component> <observation moodCode="EVN" classCode="OBS"> <templateId root="2.16.840.1.381876.10.20.22.4.2" /> <id nullFlavor="NA" /> <code codeSystem=" local" code="100.1250" displayName="BASOPHILS % ( AUTO)" /> <statusCode code="completed" /> <effectiveTime value="675310065510" /> <value unit="%" xsi:type="PQ" value="0.5" /> <referenceRange> <observationRange> <text>0-2</text> </observationRange> </ referenceRange> </observation> </component> < component> <observation moodCode="EVN" classCode=" OBS"> <templateId root="2.16.840.1.913140.10.20.22.4.2& quot; /> <id nullFlavor="NA" /> <code codeSystem="local" code="100.1275" displayName=" IMMATURE GRANULOCYTE % (AUTO)" /> <statusCode code=& quot;completed" /> <effectiveTime value="192338554242& quot; /> <value unit="%" xsi:type="PQ" value="0.4" /> <referenceRange> < observationRange> <text>0.0-0.5</text> & lt;/observationRange> </referenceRange> </ observation> </component> <component> < observation moodCode="EVN" classCode="OBS"> < templateId root="2.16.840.1.647294.10.20.22.4.2" /> < id nullFlavor="NA" /> <code codeSystem="local&quot ; code="100.1300" displayName="NEUTROPHILS # (AUTO)" /> <statusCode code="completed" /> < effectiveTime value="091843491741" /> <value unit="T/MM3 " xsi:type="PQ" value="9.3" /> < interpretationCode codeSystem="local" code="*" /> <referenceRange> <observationRange> < text>1.8-7.7</text> </observationRange> </ referenceRange> </observation> </component> < component> <observation moodCode="EVN" classCode=" OBS"> <templateId root="2.16.840.1.235776.10.20.22.4.2& quot; /> <idnullFlavor="NA" /> <code codeSystem="local" code="100.1350" displayName=" LYMPHOCYTES # (AUTO)" /> <statusCode code="completed& quot; /> <effectiveTime value="863545816295" /> <value unit="T/MM3" xsi:type="PQ" value="3.0& quot; /> <referenceRange> <observationRange> <text>1-4.8</text> </observationRange> </referenceRange> </observation> </ component> <component> <observation moodCode="EVN& quot; classCode="OBS"> <templateId root=" 2.16.840.1.845517.10.20.22.4.2" /> <id nullFlavor="NA& quot; /> <code codeSystem="local" code="100.1400& quot; displayName="MONOCYTES # (AUTO)" /> <statusCode code="completed" /> <effectiveTime value=" 101727953527" /> <value unit="T/MM3" xsi:type=& quot;PQ" value="0.7" /> <referenceRange>< observationRange> <text>0-0.8</text> < /observationRange> </referenceRange> </observation& gt; </component> <component> <observation moodCode="EVN" classCode="OBS"> <templateId root="2.16.840.1.583223.10.20.22.4.2" /> <id nullFlavor ="NA" /> <code codeSystem="local" code=" 100.1450" displayName="EOSINOPHILS # (AUTO)" /> < statusCode code="completed" /> <effectiveTime value=" 146195803837" /> <value unit="T/MM3" xsi:type=& quot;PQ" value="0.9" /> <interpretationCode codeSystem="local" code="*" /> < referenceRange> <observationRange> <text> 0-0.5</text> </observationRange> </ referenceRange> </observation> </component> < component> <observation moodCode="EVN" classCode=" OBS"> <templateId root="2.16.840.1.241253.10.20.22.4.2& quot; /> <id nullFlavor="NA" /><code codeSystem=& quot;local" code="100.1500" displayName="BASOPHILS # (AUTO)& quot; /> <statusCode code="completed" /> & lt;effectiveTime value="615095132873" /> <value unit=& quot;T/MM3" xsi:type="PQ" value="0.1" /> & lt;referenceRange> <observationRange> <text>0-0.2& lt;/text> </observationRange> </referenceRange& gt; </observation> </component> <component> <observation moodCode="EVN" classCode="OBS"> <templateId root="2.16.840.1.350116.10.20.22.4.2" /> <id nullFlavor="NA" /> <code codeSystem=&quot ;local" code="100.1525" displayName="IMMATURE GRANULOCYTE # (AUTO)" /> <statusCode code="completed" /> <effectiveTime value="528213281056" /> <value unit="T/MM3" xsi:type="PQ" value="0.05" /> <interpretationCode codeSystem="local" code="*" /& gt; <referenceRange> <observationRange> <text>0.00-0.03</text> </observationRange> </referenceRange> </observation> </component> </organizer> </entry> <entry> <organizer moodCode=& quot;EVN" classCode="BATTERY"> <templateId root=" 2.16.840.1.924904.10.20.22.4.1" /> <id nullFlavor="NA&quot ; /> <code codeSystem="local" code="LCMP" displayName="L200.0020" /> <statusCode code="completed&quot ; /> <component> <observation moodCode="EVN" classCode="OBS"> <templateId root=" 2.16.840.1.934722.10.20.22.4.2" /> <id nullFlavor="NA& quot; /> <code codeSystem="local" code="300.0400& quot; displayName="FUNGAL CULTURE." /><statusCode code=" completed" /> <effectiveTime value="620291683637" /> <value unit="MG/DL" xsi:type="PQ" value=& quot;1.1" /> <referenceRange> < observationRange> <text>0.7-1.2</text> & lt;/observationRange> </referenceRange> </ observation> </component> <component> < observation moodCode="EVN" classCode="OBS"> < templateId root="2.16.840.1.459840.10.20.22.4.2" /> < id nullFlavor="NA" /> <code codeSystem="local&quot ; code="300.0450" displayName="FUNGAL CULTURE, BLOOD." /&gt ; <statusCode code="completed" /> < effectiveTime value="801110555137" /> <value unit=&quot ;RATIO" xsi:type="PQ" value="14" /> < referenceRange> <observationRange> <text> 6-26</text> </observationRange> </ referenceRange> </observation> </component> < component> <observation moodCode="EVN"classCode="OBS "> <templateId root="2.16.840.1.672235.10.20.22.4.2& quot; /> <id nullFlavor="NA" /> <code codeSystem="local" code="300.0100" displayName="NA - Sodium" /> <statusCode code="completed" /> <effectiveTime value="982327094856" /> <value unit="MEQ/L" xsi:type="PQ" value="140" /> <referenceRange> <observationRange> &lt ;text>134-144</text> </observationRange> </ referenceRange> </observation> </component> < component> <observation moodCode="EVN" classCode=" OBS"> <templateId root="2.16.840.1.143472.10.20.22.4.2& quot; /> <id nullFlavor="NA" /> <code codeSystem= "local" code="300.0150" displayName="Potassium" /& gt; <statusCode code="completed" /> < effectiveTime value="276022563354" /> <value unit=&quot ;MEQ/L" xsi:type="PQ" value="3.9" /> < referenceRange> <observationRange> <text>3.6-5 </text> </observationRange> </referenceRange& gt; </observation> </component> <component> <observation moodCode="EVN" classCode="OBS"> &lt ;templateId root="2.16.840.1.413013.10.20.22.4.2" /> < id nullFlavor="NA" /> <code codeSystem="local&quot ; code="300.0200" displayName="Chloride" /> < statusCode code="completed" /> <effectiveTime value=& quot;962941386352" /> <value unit="MEQ/L" xsi:type ="PQ" value="105" /> <referenceRange> <observationRange> <text>98-107</text> </observationRange> </referenceRange> </ observation> </component> <component> < observation moodCode="EVN" classCode="OBS"> < templateId root="2.16.840.1.014301.10.20.22.4.2" /> < id nullFlavor="NA" /> <code codeSystem="local&quot ; code="300.0250" displayName="CO2 - Carbon Dioxide" /> <statusCode code="completed" /> < effectiveTime value="516022067662" /> <value unit=&quot ;MEQ/L" xsi:type="PQ" value="22" /> < referenceRange> <observationRange> <text> 22-30</text> </observationRange> </ referenceRange> </observation> </component> < component> <observation moodCode="EVN" classCode=" OBS"> <templateId root="2.16.840.1.080631.10.20.22.4.2& quot; /> <id nullFlavor="NA" /> <code codeSystem ="local" code="300.0300" displayName="Anion Gap" / > <statusCode code="completed" /> < effectiveTime value="675725554536" /> <value unit=&quot ;MEQ/L" xsi:type="PQ" value="13" /> < referenceRange> <observationRange> <text> 5-15</text> </observationRange> </ referenceRange> </observation> </component> < component> <observation moodCode="EVN" classCode=" OBS"> <templateId root="2.16.840.1.662644.10.20.22.4.2& quot; /> <id nullFlavor="NA" /> <code codeSystem="local" code="300.0350" displayName="BUN - Blood Urea Nitrogen" /> <statusCode code="completed&quot ; /> <effectiveTime value="777091225983" /> <value unit="MG/DL" xsi:type="PQ" value="15.0&quot ; /> <referenceRange> <observationRange> <text>7-17</text> </observationRange> </referenceRange></observation> </component> <component> <observation moodCode="EVN" classCode=& quot;OBS"> <templateId root=" 2.16.840.1.465467.10.20.22.4.2" /> <id nullFlavor="NA& quot; /> <code codeSystem="local" code="300.0410& quot; displayName="Glomerular Filtration Rate" /> < statusCode code="completed" /> <effectiveTime value=& quot;036810129992" /> <value unit="" xsi:type=& quot;PQ" value="58" /> <referenceRange> <observationRange> <text>NRG</text> </observationRange> </referenceRange> </ observation> </component> <component> < observation moodCode="EVN" classCode="OBS"> < templateId root="2.16.840.1.080998.10.20.22.4.2" /> < id nullFlavor="NA" /> <code codeSystem="local&quot ; code="300.0500" displayName="Glucose" /> < statusCode code="completed" /> <effectiveTime value=& quot;564167222773" /> <value unit="MG/DL" xsi:type ="PQ" value="90" /> <referenceRange> <observationRange> <text>65-110</text> </observationRange> </referenceRange> </ observation> </component> <component> < observation moodCode="EVN" classCode="OBS"> < templateId root="2.16.840.1.014047.10.20.22.4.2" /><id nullFlavor="NA" /> <code codeSystem="local" code="300.2000" displayName="Osmolality,Calculated" /> <statusCode code="completed" /> < effectiveTime value="016170257027" /> <value unit=&quot ;MOSM/KG" xsi:type="PQ" value="270" /> < referenceRange> <observationRange> <text> 261-280</text> </observationRange> </referenceRange> </observation> </component> <component> <observation moodCode="EVN" classCode="OBS"> <templateId root="2.16.840.1.147652.10.20.22.4.2" /> <id nullFlavor="NA" /> <code codeSystem=" local" code="300.2200" displayName="Calcium" /> <statusCode code="completed" /> < effectiveTime value="803025631526" /> <value unit=&quot ;MG/DL" xsi:type="PQ" value="9.4" /> < referenceRange> <observationRange> <text>8.4-10.2&lt ;/text> </observationRange> </referenceRange&gt ; </observation> </component> <component> <observation moodCode="EVN" classCode="OBS"> &lt ;templateId root="2.16.840.1.923545.10.20.22.4.2" /> < id nullFlavor="NA" /> <code codeSystem="local&quot ; code="300.2700" displayName="Bilirubin,Total" /> <statusCode code="completed" /> <effectiveTime value=& quot;451753991773" /> <value unit="MG/DL" xsi:type ="PQ" value="0.60" /> <referenceRange> <observationRange> <text>0.20-1.30</text&gt ; </observationRange> </referenceRange> & lt;/observation> </component> <component> < observation moodCode="EVN" classCode="OBS"> < templateId root="2.16.840.1.568736.10.20.22.4.2" /> < id nullFlavor="NA" /> <code codeSystem="local&quot ; code="300.2975" displayName="Alkaline Phosphatase" /> <statusCode code="completed" /> < effectiveTime value="215487143248" /> <value unit=&quot ;U/L" xsi:type="PQ" value="73" /> < referenceRange> <observationRange> <text> 38-126</text> </observationRange></referenceRange> </observation> </component> <component> <observation moodCode="EVN" classCode="OBS"> <templateId root="2.16.840.1.923793.10.20.22.4.2" /> & lt;id nullFlavor="NA" /> <code codeSystem="local& quot; code="300.3050" displayName="AST - Aspartate Amino Transfer " /> <statusCode code="completed" /> & lt;effectiveTime value="057288783442" /> <value unit=& quot;U/L" xsi:type="PQ" value="27" /> < referenceRange> <observationRange> <text> 14-36</text> </observationRange> </ referenceRange> </observation> </component> < component> <observation moodCode="EVN" classCode="OBS& quot;> <templateId root="2.16.840.1.155255.10..22.4.2&quot ; /> <id nullFlavor="NA" /> <code codeSystem="local" code="300.3100" displayName="ALT& quot; /> <statusCode code="completed" /> & lt;effectiveTime value="490623166481" /> <value unit=& quot;U/L" xsi:type="PQ" value="35" /> < referenceRange> <observationRange> <text> 9-52</text> </observationRange> </ referenceRange> </observation> </component> < component> <observation moodCode="EVN" classCode=" OBS"> <templateId root="2.16.840.1.148210.10.20.22.4.2& quot; /> <id nullFlavor="NA" /> <code codeSystem="local" code="300.3110" displayName="TP - Total Protein" /><statusCode code="completed" /> <effectiveTime value="114299464362" /> <value unit="G/DL" xsi:type="PQ" value="7.6" /> <referenceRange> <observationRange> < text>6.3-8.2</text> </observationRange> </ referenceRange> </observation> </component> < component> <observation moodCode="EVN" classCode=" OBS"> <templateId root="2.16.840.1.742805.10.20.22.4.2& quot; /> <id nullFlavor="NA" /> <code codeSystem="local" code="300.3120" displayName=" Albumin Level" /> <statusCode code="completed" /& gt; <effectiveTime value="614870155077" /> < value unit="G/DL" xsi:type="PQ" value="4.4" /> <referenceRange> <observationRange> <text>3.5-5.0</text> </observationRange> </referenceRange> </observation> </component> <component> <observation moodCode="EVN" classCode=& quot;OBS"> <templateId root=" 2.16.840.1.484591.10.20.22.4.2" /> <id nullFlavor="NA& quot; /> <code codeSystem="local" code="300.3130& quot; displayName="Globulin" /> <statusCode code=" completed" /> <effectiveTime value="203174600065" /> <value unit="G/DL" xsi:type="PQ" value=& quot;3.2" /> <referenceRange> < observationRange> <text>2.4-3.6</text> & lt;/observationRange> </referenceRange> </ observation> </component> <component> < observation moodCode="EVN" classCode="OBS"> < templateId root="2.16.840.1.856005.10.20.22.4.2" /> < id nullFlavor="NA" /> <code codeSystem="local&quot ; code="300.3140" displayName="Albumin/Globulin Ratio" /&gt ; <statusCode code="completed" /> < effectiveTime value="337895566709" /> <value unit=&quot ;RATIO" xsi:type="PQ" value="1.4" /> < referenceRange> <observationRange> <text>1.1 -2.2</text> </observationRange> </ referenceRange> </observation> </component> < component> <observation moodCode="EVN" classCode=" OBS"> <templateId root="2.16.840.1.220018.10.20.22.4.2& quot; /> <id nullFlavor="NA" /> <code codeSystem="local" code="300.0095" displayName=" LICTERUS" /> <statusCode code="completed" /> & lt;effectiveTime value="341316626702" /> <value unit=& quot;" xsi:type="PQ" value="< 2" /> <referenceRange> <observationRange> <text >0-7</text> </observationRange> </ referenceRange> </observation> </component> < component> <observation moodCode="EVN" classCode=" OBS"> <templateId root="2.16.840.1.523398.10.20.22.4.2& quot; /> <id nullFlavor="NA" /> <code codeSystem="local" code="300.0096" displayName=" LHEMOLYSIS" /> <statusCode code="completed" /> <effectiveTime value="980740909834" /> < value unit="" xsi:type="PQ" value="< 15" /& gt; <referenceRange> <observationRange> <text>0-25</text> </observationRange> </referenceRange> </observation> </component> <component> <observation moodCode="EVN" classCode ="OBS"> <templateId root=" 2.16.840.1.644608.10..22.4.2" /> <id nullFlavor="NA& quot; /> <code codeSystem="local" code="300.0097& quot; displayName="LTURBIDITY" /> <statusCode code=& quot;completed" /> <effectiveTime value="543734032599& quot; /> <value unit="" xsi:type="PQ" value=& quot;< 20" /> <referenceRange> < observationRange> <text>0-20</text> </ observationRange> </referenceRange> </observation> </component> </organizer> </entry> <entry> & lt;organizer moodCode="EVN" classCode="BATTERY"> &lt ;templateId root="2.16.840.1.613110.10.20.22.4.1" /> <id nullFlavor="NA" /> <code codeSystem="local" code= "LMAG" displayName="L200.2000" /> <statusCode code=& quot;completed" /> <component> <observation moodCode="EVN" classCode="OBS"> <templateId root="2.16.840.1.439710.10..22.4.2" /> <id nullFlavor ="NA" /> <code codeSystem="local" code=" 300.2350" displayName="MAG - Magnesium" /> <statusCode code ="completed" /> <effectiveTime value="431914424256 " /> <value unit="MG/DL" xsi:type="PQ" value="1.9" /> <referenceRange> < observationRange> <text>1.6-2.3</text> & lt;/observationRange> </referenceRange> </ observation> </component> </organizer> </entry> & lt;entry> <organizer moodCode="EVN" classCode="BATTERY& quot;> <templateId root="[id number]" /& gt; <id nullFlavor="NA" /> <code codeSystem=" local" code="LLDH" displayName="L200.1855" /> & lt;statusCode code="completed" /> <component> &lt ;observation moodCode="EVN" classCode="OBS"> &lt ;templateId root="[id number]" /> < id nullFlavor="NA" /> <code codeSystem="local&quot ; code="300.3250" displayName="LDH - Lactate Dehydrogenase" /> <statusCode code="completed" /> < effectiveTime value="[id number]" /> <value unit=&quot ;U/L" xsi:type="PQ" value="413" /> < referenceRange> <observationRange> <text> 313-578</text> </observationRange> </ referenceRange> </observation> </component> </ organizer> </entry> <entry> <organizer moodCode="EVN " classCode="BATTERY"> <templateId root=" 2.16.840.1.485644.10.20.22.4.1" /> <id nullFlavor="NA&quot ; /> <code codeSystem="local" code="LTSH" displayName="L200.3850" /> <statusCode code="completed " /> <component> <observation moodCode="EVN& quot; classCode="OBS"> <templateId root=" 2.16.840.1.598353.10.20.22.4.2" /> <id nullFlavor="NA& quot; /> <code codeSystem="local" code="300.5500& quot; displayName="TSH - Thyroid Stim Hormone" /> <statusCode code="completed" /> <effectiveTime value=" 863725085374" /> <value unit="MIU/L" xsi:type=& quot;PQ" value="18.20" /> <interpretationCode codeSystem="local" code="" /> <referenceRange&gt ; <observationRange> <text>0.47-4.68</ text> </observationRange> </referenceRange> </observation> </component> </organizer> </ entry> <entry> <organizermoodCode="EVN" classCode=& quot;BATTERY"> <templateId root=" 2.16.840.1.733798.10.20.22.4.1" /> <id nullFlavor="NA&quot ; /> <code codeSystem="local" code="LT4F" displayName="L200.3600" /> <statusCode code="completed " /> <component> <observation moodCode="EVN& quot; classCode="OBS"> <templateId root=" 2.16.840.1.001447.10.20.22.4.2" /> <id nullFlavor="NA& quot; /> <code codeSystem="local" code="300.5250& quot; displayName="Free T4 (Free Thyroxine)-Batch" /> < statusCode code="completed" /> <effectiveTime value=& quot;507115836697" /> <value unit="NG/DL" xsi:type ="PQ" value="1.60" /> <referenceRange> <observationRange> <text>0.78-2.19</text&gt ; </observationRange> </referenceRange> & lt;/observation> </component> </organizer> </entry&gt ; <entry> <organizer moodCode="EVN" classCode=" BATTERY"> <templateId root="2.16.840.1.770145.10.20.22.4.1& quot; /> <id nullFlavor="NA" /> <code codeSystem ="local" code="LACTH-A" displayName="L750.0200" /& gt; <statusCode code="completed" /> <component> <observation moodCode="EVN" classCode="OBS"> <templateId root="2.16.840.1.661841.10.20.22.4.2" /> <id nullFlavor="NA" /> <code codeSystem=& quot;local" code="902.0325" displayName="LACTH-A" /&gt ; <statusCode code="completed" /> < effectiveTime value="023225013594" /> <value unit="pg/ mL" xsi:type="PQ" value="13" /> < referenceRange> <observationRange> <text> NRG</text> </observationRange> </referenceRange& gt; </observation></component> </organizer> </ entry> <entry> <organizer moodCode="EVN" classCode=& quot;BATTERY"> <templateId root=" 2.16.840.1.433297.10.20.22.4.1" /> <id nullFlavor="NA&quot ; /> <code codeSystem="local" code="LCORTF-A" displayName="L750.2990" /> <statusCode code="completed " /> <component> <observation moodCode="EVN& quot; classCode="OBS"> <templateId root=" 2.16.840.1.992061.10.20.22.4.2" /> <id nullFlavor="NA& quot; /> <code codeSystem="local" code="902.5750& quot; displayName="Cortisol Free, Serum - AMS" /> < statusCode code="completed" /> <effectiveTime value=& quot;815423554909" /> <value unit="mcg/dL" xsi:type=& quot;PQ" value="0.167" /> <referenceRange> & lt;observationRange> <text>NRG</text> &lt ;/observationRange> </referenceRange> </observation& gt; </component> </organizer> </entry> <entry> <organizer moodCode="EVN" classCode="BATTERY"> <templateId root="2.16.840.1.332352.10.20.22.4.1" /> < id nullFlavor="NA" /> <code codeSystem="local" code="LCBC" displayName="L100.0050" /> < statusCode code="completed" /> <component> < observation moodCode="EVN" classCode="OBS"> < templateId root="2.16.840.1.671063.10.20.22.4.2" /> < id nullFlavor="NA" /> <code codeSystem="local&quot ; code="100.0150" displayName="WBC - WHITE BLOOD COUNT" /&gt ; <statusCode code="completed" /> < effectiveTime value="115749891902" /> <value unit="T/MM3& quot; xsi:type="PQ" value="12.4" /> < interpretationCode codeSystem="local" code="*" /> <referenceRange> <observationRange> < text>4.5-11.0</text> </observationRange> < /referenceRange> </observation> </component> &lt ;component> <observation moodCode="EVN" classCode=" OBS"> <templateId root="2.16.840.1.372065.10.20.22.4.2& quot; /> <id nullFlavor="NA" /> <code codeSystem="local" code="100.0250" displayName="RED BLOOD COUNT" /> <statusCode code="completed" /&gt ; <effectiveTime value="952196862373" /> < value unit="M/MM3" xsi:type="PQ" value="4.93" /&gt ; <referenceRange> <observationRange> & lt;text>4.00-5.20</text> </observationRange> </referenceRange> </observation> </component> <component> <observation moodCode="EVN" classCode=& quot;OBS"> <templateId root=" 2.16.840.1.373760.10.20.22.4.2" /> <id nullFlavor="NA& quot; /> <code codeSystem="local" code="100.0300& quot; displayName="HGB - HEMOGLOBIN" /> <statusCode code="completed" /> <effectiveTime value=" 592754089751" /> <value unit="GM/DL" xsi:type=& quot;PQ" value="13.7" /> <referenceRange>< observationRange> <text>12-16</text> < /observationRange> </referenceRange> </observation& gt; </component> <component> <observation moodCode="EVN" classCode="OBS"> <templateId root="2.16.840.1.827150.10.20.22.4.2" /> <id nullFlavor ="NA" /> <code codeSystem="local" code=" 100.0400" displayName="HCT - HEMATOCRIT" /> < statusCode code="completed" /> <effectiveTime value=& quot;829617050451" /> <value unit="%" xsi: type="PQ" value="41.3" /> <referenceRange&gt ; <observationRange> <text>36-46</text&gt ; </observationRange> </referenceRange> < /observation> </component> <component> < observation moodCode="EVN" classCode="OBS"> < templateId root="2.16.840.1.320809.10.20.22.4.2" /> < id nullFlavor="NA" /> <code codeSystem="local&quot ; code="100.0550" displayName="MEAN CORPUSCULAR VOLUME" /&gt ; <statusCode code="completed" /> < effectiveTime value="774238920771" /> <value unit=&quot ;UM3" xsi:type="PQ" value="83.8" /> < referenceRange> <observationRange> <text> 80-100</text> </observationRange> </referenceRange&gt ; </observation> </component> <component> <observation moodCode="EVN" classCode="OBS"> <templateId root="2.16.840.1.748084.10.20.22.4.2" /> <id nullFlavor="NA" /> <code codeSystem=" local" code="100.0600" displayName="MEAN CORPUSCULAR HGB& quot; /> <statusCode code="completed" /> & lt;effectiveTime value="483720114299" /> <value unit=& quot;UUG" xsi:type="PQ" value="27.8" /> &lt ;referenceRange> <observationRange> <text&gt ;26-34</text> </observationRange> </ referenceRange> </observation> </component> < component> <observation moodCode="EVN" classCode=" OBS"> <templateId root="2.16.840.1.174793.10.20.22.4.2& quot; /> <id nullFlavor="NA" /> <code codeSystem ="local" code="100.0650" displayName="MEAN CORPUSCULARHGB CONC(MCHC" /> <statusCode code=" completed" /> <effectiveTime value="701396333673" /> <value unit="GM/DL" xsi:type="PQ" value=& quot;33.2" /> <referenceRange> < observationRange> <text>31-37</text> < /observationRange> </referenceRange> </observation& gt; </component> <component> <observation moodCode=& quot;EVN" classCode="OBS"> <templateId root=" 2.16.840.1.788854.10.20.22.4.2" /> <id nullFlavor="NA& quot; /> <code codeSystem="local" code="100.0750" displayName="RDW STANDARD DEVIATION" /> <statusCode code="completed" /> <effectiveTime value=" 733831035911" /> <value unit="FL" xsi:type=" PQ" value="43.2" /> <referenceRange> <observationRange> <text>36.9-50.2</text> </observationRange> </referenceRange> </ observation> </component> <component> < observation moodCode="EVN" classCode="OBS"> < templateId root="2.16.840.1.616743.10.20.22.4.2" /> < id nullFlavor="NA" /> <code codeSystem="local" code=& quot;100.0850" displayName="PLT - PLATELET COUNT" /> <statusCode code="completed" /> <effectiveTime value ="906145395853" /> <value unit="T/MM3" xsi: type="PQ"value="338" /> <referenceRange> <observationRange> <text>130-400</text> </observationRange> </referenceRange> </ observation> </component> <component> < observation moodCode="EVN" classCode="OBS"> < templateId root="2.16.840.1.158301.10.20.22.4.2" /> < id nullFlavor="NA" /> <code codeSystem="local&quot ; code="100.0950" displayName="MEAN PLATELET VOLUME" /> <statusCode code="completed" /> < effectiveTime value="349104306390" /> <value unit=&quot ;UM3" xsi:type="PQ" value="9.1" /> < interpretationCode codeSystem="local" code="*" /> <referenceRange> <observationRange> < text>9.4-12.4</text> </observationRange> < /referenceRange> </observation> </component> &lt ;component> <observation moodCode="EVN" classCode=" OBS"> <templateId root="2.16.840.1.982496.10.20.22.4.2& quot; /> <id nullFlavor="NA" /> <code codeSystem="local" code="100.1050" displayName=" NEUTROPHILS % (AUTO)" /> <statusCode code="completed& quot; /> <effectiveTime value="176632039150" /> <value unit="%" xsi:type="PQ" value=" 69.0" /> <interpretationCode codeSystem="local" code="*" /> <referenceRange> < observationRange> <text>33-66</text> < /observationRange> </referenceRange> </observation& gt; </component> <component> <observation moodCode="EVN"classCode="OBS"> <templateId root="2.16.840.1.768798.10.20.22.4.2" /> <id nullFlavor ="NA" /> <code codeSystem="local" code=" 100.1100" displayName="LYMPHOCYTES % (AUTO)" /> <statusCode code="completed" /> <effectiveTime value="559540737806" /> <value unit="%& quot; xsi:type="PQ" value="19.3" /> < interpretationCode codeSystem="local" code="*" /> <referenceRange> <observationRange> < text>23-45</text> </observationRange> </ referenceRange> </observation> </component> < component> <observation moodCode="EVN" classCode=" OBS"> <templateId root="2.16.840.1.690144.10.20.22.4.2& quot; /> <id nullFlavor="NA" /> <code codeSystem="local" code="100.1150" displayName=" MONOCYTES % (AUTO)" /> <statusCode code=" completed" /> <effectiveTime value="380345854439" /> <value unit="%" xsi:type="PQ" value=" 6.5" /> <referenceRange> <observationRange& gt; <text>0-9.0</text> </observationRange > </referenceRange> </observation> </ component> <component> <observation moodCode="EVN& quot; classCode="OBS"> <templateId root=" 2.16.840.1.624299.10.20.22.4.2" /> <id nullFlavor="NA& quot; /> <code codeSystem="local" code="100.1200& quot; displayName="EOSINOPHILS % (AUTO)" /> < statusCode code="completed" /> <effectiveTime value=& quot;109092083879" /> <value unit="%" xsi:type ="PQ" value="4.6" /> <interpretationCode codeSystem= "local" code="*" /> <referenceRange> <observationRange> <text>0-4</text> </observationRange> </referenceRange> </ observation> </component> <component> < observation moodCode="EVN" classCode="OBS"> < templateId root="2.16.840.1.789754.10.20.22.4.2" /> < id nullFlavor="NA" /> <code codeSystem="local&quot ; code="100.1250" displayName="BASOPHILS % (AUTO)" / > <statusCode code="completed" /> < effectiveTime value="772047454590" /> <value unit=&quot ;%" xsi:type="PQ" value="0.3" /> & lt;referenceRange> <observationRange> <text& gt;0-2</text> </observationRange> </ referenceRange> </observation> </component> < component> <observation moodCode="EVN" classCode=" OBS"> <templateId root="2.16.840.1.074449.10.20.22.4.2& quot; /> <id nullFlavor="NA" /> <code codeSystem="local" code="100.1275" displayName=" IMMATURE GRANULOCYTE % (AUTO)" /> <statusCode code=& quot;completed" /> <effectiveTime value="998225827057& quot; /> <value unit="%" xsi:type="PQ" value= "0.3" /> <referenceRange> < observationRange> <text>0.0-0.5</text> & lt;/observationRange> </referenceRange> </ observation> </component> <component> < observation moodCode="EVN" classCode="OBS"> < templateId root="2.16.840.1.266885.10.20.22.4.2" /> < id nullFlavor="NA" /> <code codeSystem="local&quot ; code="100.1300" displayName="NEUTROPHILS # (AUTO)" /> <statusCode code="completed" /> < effectiveTime value="830769700344" /><value unit="T/MM3& quot; xsi:type="PQ" value="8.5" /> < interpretationCode codeSystem="local" code="*" /> <referenceRange> <observationRange> < text>1.8-7.7</text> </observationRange> </ referenceRange> </observation> </component> < component> <observation moodCode="EVN" classCode=" OBS"> <templateId root="2.16.840.1.986520.10.20.22.4.2& quot; /> <id nullFlavor="NA" /> <code codeSystem="local" code="100.1350"displayName=" LYMPHOCYTES # (AUTO)" /> <statusCode code="completed& quot; /> <effectiveTime value="358633100175" /> <value unit="T/MM3" xsi:type="PQ" value="2.4& quot; /> <referenceRange> <observationRange> <text>1-4.8</text> </observationRange> </referenceRange> </observation> </component&gt ;<component> <observation moodCode="EVN" classCode=& quot;OBS"> <templateId root="2.16.840.1.408167.10.20.22.4.2& quot; /> <id nullFlavor="NA" /> <code codeSystem="local" code="100.1400" displayName=" MONOCYTES # (AUTO)" /> <statusCode code="completed&quot ; /> <effectiveTime value="580786572094" /> &lt ;value unit="T/MM3" xsi:type="PQ" value="0.8" /&gt ; <referenceRange> <observationRange> <text>0-0.8</text> </observationRange> </referenceRange> </observation> </component> <component> <observation moodCode="EVN" classCode= "OBS"> <templateId root=" 2.16.840.1.259929.10.20.22.4.2" /> <id nullFlavor="NA& quot; /> <code codeSystem="local" code="100.1450& quot; displayName="EOSINOPHILS # (AUTO)" /> < statusCode code="completed" /> <effectiveTime value=& quot;198940210595" /> <value unit="T/MM3" xsi:type ="PQ" value="0.6" /> <interpretationCode codeSystem="local" code="*" /> < referenceRange> <observationRange> <text>0- 0.5</text> </observationRange> </ referenceRange> </observation> </component> < component> <observation moodCode="EVN" classCode=" OBS"> <templateId root="2.16.840.1.699833.10.20.22.4.2& quot; /> <id nullFlavor="NA" /> <code codeSystem="local" code="100.1500" displayName=" BASOPHILS # (AUTO)" /> <statusCode code="completed&quot ; /> <effectiveTime value="927228772370" /> <value unit="T/MM3" xsi:type="PQ" value="0.0&quot ; /> <referenceRange> <observationRange> < text>0-0.2</text> </observationRange> </ referenceRange> </observation> </component> < component> <observation moodCode="EVN" classCode=" OBS"> <templateId root="2.16.840.1.918936.10.20.22.4.2& quot; /> <id nullFlavor="NA" /> <code codeSystem="local" code="100.1525" displayName=" IMMATURE GRANULOCYTE # (AUTO)" /> <statusCode code=" completed" /> <effectiveTime value="744648307585" /> <value unit="T/MM3" xsi:type="PQ" value=& quot;0.04" /> <interpretationCode codeSystem="local& quot; code="*" /> <referenceRange> < observationRange> <text>0.00-0.03</text> </observationRange> </referenceRange> </ observation> </component> </organizer> </entry> & lt;entry> <organizer moodCode="EVN" classCode="BATTERY& quot;> <templateId root="2.16.840.1.666933.10.20.22.4.1" /& gt; <id nullFlavor="NA" /> <code codeSystem=" local" code="LCMP" displayName="L200.0020" /> & lt;statusCode code="completed" /> <component> &lt ;observation moodCode="EVN" classCode="OBS"> &lt ;templateId root="2.16.840.1.673931.10.20.22.4.2" /> < id nullFlavor="NA" /> <code codeSystem="local&quot ; code="300.0400" displayName="FUNGAL CULTURE." /> <statusCode code="completed" /> <effectiveTime value="634905650393" /> <value unit="MG/DL" xsi:type="PQ" value="1.0" /> <referenceRange& gt; <observationRange> <text>0.7-1.2</ text> </observationRange> </referenceRange> </observation> </component> <component> <observation moodCode="EVN" classCode="OBS"> <templateId root="2.16.840.1.900899.10.20.22.4.2" /> <id nullFlavor="NA" /> <code codeSystem=" local" code="300.0450" displayName="FUNGAL CULTURE, BLOOD.& quot; /> <statusCode code="completed" /> & lt;effectiveTime value="551715030458" /> <value unit=& quot;RATIO" xsi:type="PQ" value="10" /> < referenceRange> <observationRange> <text> 6-26</text> </observationRange> </ referenceRange> </observation> </component> < component> <observation moodCode="EVN" classCode=" OBS"> <templateId root="2.16.840.1.826445.10.20.22.4.2& quot; /> <id nullFlavor="NA" /> <code codeSystem="local" code="300.0100" displayName="NA - Sodium" /> <statusCode code="completed" /> <effectiveTime value="516297176953" /> <value unit="MEQ/L" xsi:type="PQ" value="140" /> <referenceRange> <observationRange> &lt ;text>134-144</text> </observationRange> </ referenceRange> </observation> </component> < component> <observation moodCode="EVN" classCode=" OBS"> <templateId root="2.16.840.1.681952.10.20.22.4.2& quot; /> <id nullFlavor="NA" /> <code codeSystem="local" code="300.0150" displayName=" Potassium" /> <statusCode code="completed" /> <effectiveTime value="392373148836" /> < value unit="MEQ/L" xsi:type="PQ" value="3.9" /&gt ; <referenceRange> <observationRange> < text>3.6-5</text> </observationRange> </ referenceRange> </observation> </component> < component> <observation moodCode="EVN" classCode=" OBS"> <templateId root="2.16.840.1.252937.10.20.22.4.2" /& gt; <id nullFlavor="NA" /> <code codeSystem ="local" code="300.0200" displayName="Chloride" /& gt; <statusCode code="completed" /> < effectiveTime value="169511021122" /> <value unit=&quot ;MEQ/L" xsi:type="PQ" value="106" /> < referenceRange> <observationRange> <text> 98-107</text> </observationRange> </ referenceRange> </observation> </component> < component> <observation moodCode="EVN" classCode="OBS& quot;> <templateId root="2.16.840.1.104691.10.20.22.4.2&quot ; /> <id nullFlavor="NA" /> <code codeSystem="local" code="300.0250" displayName="CO2 - Carbon Dioxide" /> <statusCode code="completed" /& gt; <effectiveTime value="164131962161" /> &lt ;value unit="MEQ/L" xsi:type="PQ" value="24" /&gt ; <referenceRange> <observationRange> <text>22-30</text> </observationRange> </referenceRange> </observation> </component> <component> <observation moodCode="EVN" classCode=& quot;OBS"> <templateId root=" 2.16.840.1.915400.10.20.22.4.2" /> <id nullFlavor="NA& quot; /> <code codeSystem="local" code="300.0300& quot; displayName="Anion Gap" /> <statusCode code=&quot ;completed" /> <effectiveTime value="685234163952&quot ; /> <value unit="MEQ/L" xsi:type="PQ" value= "10" /> <referenceRange> < observationRange> <text>5-15</text> </ observationRange> </referenceRange> </observation&gt ; </component> <component> <observation moodCode ="EVN" classCode="OBS"> <templateId root=& quot;2.16.840.1.082905.10.20.22.4.2" /> <id nullFlavor=&quot ;NA" /> <code codeSystem="local" code=" 300.0350" displayName="BUN - Blood Urea Nitrogen" /> < statusCode code="completed" /> <effectiveTime value=& quot;959387914501" /> <value unit="MG/DL" xsi:type ="PQ" value="10.0" /> <referenceRange> <observationRange> <text>7-17</text> </observationRange> </referenceRange> </ observation> </component> <component> < observation moodCode="EVN" classCode="OBS"> < templateId root="2.16.840.1.826257.10.20.22.4.2" /> < id nullFlavor="NA" /> <code codeSystem="local&quot ; code="300.0410" displayName="Glomerular Filtration Rate" / > <statusCode code="completed" /> < effectiveTime value="736119410464" /> <value unit=&quot ;" xsi:type="PQ" value="65" /> < referenceRange> <observationRange> <text> NRG</text> </observationRange> </ referenceRange> </observation> </component> < component> <observation moodCode="EVN" classCode=" OBS"> <templateId root="2.16.840.1.912672.10..22.4.2& quot; /> <id nullFlavor="NA" /> <code codeSystem="local" code="300.0500" displayName="Glucose " /> <statusCode code="completed" /> & lt;effectiveTime value="683210065522" /> <value unit=& quot;MG/DL" xsi:type="PQ" value="103" /> & lt;referenceRange> <observationRange> <text& gt;65-110</text> </observationRange> </referenceRange&gt ; </observation> </component> <component> <observation moodCode="EVN" classCode="OBS"> <templateId root="2.16.840.1.306205.10.20.22.4.2" /> <id nullFlavor="NA" /> <code codeSystem=" local" code="300.2000" displayName="Osmolality,Calculated& quot; /> <statusCode code="completed" /> & lt;effectiveTime value="609010455186" /> <value unit=& quot;MOSM/KG" xsi:type="PQ" value="268" /> <referenceRange> <observationRange> <text >261-280</text> </observationRange> </ referenceRange> </observation> </component> < component> <observation moodCode="EVN" classCode=" OBS"> <templateId root="2.16.840.1.798614.10.20.22.4.2& quot; /> <id nullFlavor="NA" /> <code codeSystem="local" code="300.2200" displayName="Calcium " /> <statusCode code="completed" /> &lt ;effectiveTime value="718935748522" /> <value unit=& quot;MG/DL" xsi:type="PQ" value="9.0" /> & lt;referenceRange> <observationRange> <text& gt;8.4-10.2</text> </observationRange> </ referenceRange> </observation> </component> < component> <observation moodCode="EVN" classCode=" OBS"> <templateId root="2.16.840.1.654669.10.20.22.4.2& quot; /> <id nullFlavor="NA" /> <code codeSystem="local" code="300.2700" displayName=" Bilirubin,Total" /> <statusCode code="completed" / > <effectiveTime value="304045741880" /> & lt;value unit="MG/DL" xsi:type="PQ" value="0.70" / > <referenceRange> <observationRange> <text>0.20-1.30</text> </observationRange> </referenceRange> </observation> </component&gt ; <component> <observation moodCode="EVN" classCode="OBS"> <templateId root=" 2.16.840.1.562355.10.20.22.4.2" /> <id nullFlavor="NA& quot; /> <code codeSystem="local" code="300.2975& quot; displayName="Alkaline Phosphatase" /> < statusCode code="completed" /> <effectiveTime value=& quot;967654576786" /> <value unit="U/L" xsi:type=& quot;PQ" value="75" /> <referenceRange> <observationRange> <text>38-126</text> </observationRange> </referenceRange> </ observation> </component> <component> <observation moodCode="EVN" classCode="OBS"> <templateId root="2.16.840.1.191856.10.20.22.4.2" /> <id nullFlavor ="NA" /> <code codeSystem="local" code=" 300.3050" displayName="AST - Aspartate Amino Transfer" /> <statusCode code="completed" /> < effectiveTime value="438550879259" /> <value unit=&quot ;U/L" xsi:type="PQ" value="18" /> < referenceRange> <observationRange> <text> 14-36</text> </observationRange> </ referenceRange> </observation> </component> < component> <observation moodCode="EVN" classCode="OBS" > <templateId root="2.16.840.1.222458.10.20.22.4.2" /& gt; <id nullFlavor="NA" /> <code codeSystem=& quot;local" code="300.3100" displayName="ALT" /> <statusCode code="completed" /> < effectiveTime value="752224521677" /> <value unit=&quot ;U/L" xsi:type="PQ" value="32" /> < referenceRange> <observationRange> <text> 9-52</text> </observationRange> </ referenceRange> </observation> </component> < component> <observation moodCode="EVN" classCode=" OBS"> <templateId root="2.16.840.1.303647.10.20.22.4.2& quot; /> <id nullFlavor="NA" /> <code codeSystem="local" code="300.3110" displayName="TP - Total Protein" /> <statusCode code="completed" /& gt; <effectiveTime value="962545714445" /> &lt ;value unit="G/DL" xsi:type="PQ" value="7.3" /&gt ; <referenceRange> <observationRange> <text>6.3-8.2</text> </observationRange> </referenceRange> </observation> </component> <component> <observation moodCode="EVN" classCode ="OBS"> <templateId root=" 2.16.840.1.750651.10.20.22.4.2" /> <id nullFlavor="NA& quot; /> <code codeSystem="local" code="300.3120& quot; displayName="Albumin Level" /> <statusCode code=& quot;completed" /> <effectiveTime value="798835167583& quot; /> <value unit="G/DL" xsi:type="PQ" value=& quot;4.3" /> <referenceRange> < observationRange> <text>3.5-5.0</text> < /observationRange> </referenceRange> </observation& gt; </component> <component> <observation moodCode=& quot;EVN" classCode="OBS"> <templateId root=" 2.16.840.1.227445.10.20.22.4.2" /> <id nullFlavor="NA&quot ; /> <code codeSystem="local" code="300.3130&quot ; displayName="Globulin" /> <statusCode code=" completed" /> <effectiveTime value="[id number]" /> <value unit="G/DL" xsi:type="PQ" value=& quot;3.0" /> <referenceRange> < observationRange> <text>2.4-3.6</text> & lt;/observationRange> </referenceRange> </ observation> </component> <component> < observation moodCode="EVN" classCode="OBS"> < templateId root="[id number]" /> < id nullFlavor="NA" /> <code codeSystem="local&quot ; code="300.3140" displayName="Albumin/Globulin Ratio" /&gt ; <statusCode code="completed" /> < effectiveTime value="[id number]" /> <value unit=&quot ;RATIO" xsi:type="PQ" value="1.4" /> < referenceRange> <observationRange> <text>1.1- 2.2</text> </observationRange> </ referenceRange> </observation> </component> < component> <observation moodCode="EVN" classCode=" OBS"> <templateId root="2.16.840.1.666436.10..22.4.2&quot ; /> <id nullFlavor="NA" /> <code codeSystem="local" code="300.0095" displayName=" LICTERUS" /> <statusCode code="completed" /> <effectiveTime value="797664186597" /> < value unit="" xsi:type="PQ" value="< 2" /& gt; <referenceRange> <observationRange> <text>0-7</text> </observationRange> </ referenceRange> </observation> </component> < component> <observation moodCode="EVN" classCode="OBS "> <templateId root="2.16.840.1.349883.10.20.22.4.2& quot; /> <id nullFlavor="NA" /> <code codeSystem="local" code="300.0096" displayName=" LHEMOLYSIS" /> <statusCode code="completed" /> <effectiveTime value="861757563433" /> < value unit="" xsi:type="PQ" value="< 15" /& gt; <referenceRange> <observationRange> <text>0-25</text> </observationRange> & lt;/referenceRange> </observation> </component> <component> <observation moodCode="EVN" classCode=& quot;OBS"> <templateId root=" 2.16.840.1.646840.10.20.22.4.2" /> <id nullFlavor="NA& quot; /> <code codeSystem="local" code="300.0097& quot; displayName="LTURBIDITY" /> <statusCode code=" completed" /> <effectiveTime value="895683702961" /> <value unit="" xsi:type="PQ" value="& amp;lt;20" /> <referenceRange> < observationRange> <text>0-20</text> </ observationRange> </referenceRange> </observation> </component> </organizer> </entry> <entry> < organizer moodCode="EVN" classCode="BATTERY"> < templateId root="2.16.840.1.791711.10.20.22.4.1" /> <id nullFlavor="NA" /> <code codeSystem="local" code= "LPHOS" displayName="L200.0630" /><statusCode code=& quot;completed" /> <component> <observation moodCode="EVN" classCode="OBS"> <templateId root="2.16.840.1.608509.10.20.22.4.2" /> <id nullFlavor ="NA" /> <code codeSystem="local" code=" 300.2300" displayName="Phosphorus" /> <statusCode code="completed" /> <effectiveTime value=" 546368230528" /> <value unit="MG/DL" xsi:type=& quot;PQ" value="3.5" /> <referenceRange> <observationRange> <text>2.5-4.5</text> </observationRange> </referenceRange> </ observation> </component> </organizer> </entry> & lt;entry> <organizer moodCode="EVN" classCode="BATTERY& quot;> <templateId root="2.16.840.1.360515.10.20.22.4.1" /& gt; <id nullFlavor="NA" /> <code codeSystem=" local" code="LMAG" displayName="L200.2000" /> & lt;statusCodecode="completed" /> <component> < observation moodCode="EVN" classCode="OBS"> < templateId root="2.16.840.1.581648.10.20.22.4.2" /> < id nullFlavor="NA" /> <code codeSystem="local&quot ; code="300.2350" displayName="MAG - Magnesium" /> <statusCode code="completed" /> <effectiveTime value="938407665677" /> <value unit="MG/DL" xsi: type="PQ" value="2.1" /> <referenceRange> <observationRange> <text>1.6-2.3</text& gt; </observationRange> </referenceRange> </observation> </component> </organizer> </entry&gt ; <entry> <organizer moodCode="EVN" classCode=" BATTERY"> <templateId root="2.16.840.1.700820.10.20.22.4.1& quot; /> <id nullFlavor="NA" /> <code codeSystem ="local" code="LLDH" displayName="L200.1855" /&gt ; <statusCode code="completed" /> <component> <observation moodCode="EVN" classCode="OBS"> <templateId root="2.16.840.1.601505.10.20.22.4.2" /> <id nullFlavor="NA" /> <code codeSystem=" local" code="300.3250" displayName="LDH - Lactate Dehydrogenase" /> <statusCode code="completed" /& gt; <effectiveTime value="892849451817" /> < value unit="U/L" xsi:type="PQ" value="372" /> <referenceRange> <observationRange> <text>313-161</text> </observationRange> </referenceRange> </observation> </component> & lt;/organizer> </entry> <entry> <organizer moodCode=&quot ;EVN" classCode="BATTERY"> <templateId root=" 2.16.840.1.104127.10.20.22.4.1" /> <id nullFlavor="NA&quot ; /> <code codeSystem="local" code="LTSH" displayName="L200.3850" /> <statusCode code="completed " /> <component> <observation moodCode="EVN& quot; classCode="OBS"> <templateId root=" 2.16.840.1.109459.10.20.22.4.2" /> <id nullFlavor="NA& quot; /> <code codeSystem="local" code="300.5500& quot; displayName="TSH - Thyroid Stim Hormone" /> < statusCodecode="completed" /> <effectiveTime value=& quot;942524887775" /> <value unit="MIU/L" xsi:type=& quot;PQ" value="17.80" /><interpretationCode codeSystem=& quot;local" code="*" /> <referenceRange> <observationRange> <text>0.47-4.68</text> </observationRange> </referenceRange> </ observation> </component> </organizer> </entry> & lt;entry> <organizer moodCode="EVN" classCode="BATTERY& quot;> <templateId root="2.16.840.1.496069.10.20.22.4.1" /& gt; <id nullFlavor="NA" /> <code codeSystem=" local" code="LACTH-A" displayName="L750.0200" /> <statusCode code="completed" /> <component> <observation moodCode="EVN" classCode="OBS"> <templateId root="2.16.840.1.372569.10.20.22.4.2" /> <id nullFlavor="NA" /> <code codeSystem="local" code="902.0325" displayName="LACTH-A" /> < statusCode code="completed" /> <effectiveTime value=& quot;542444784014" /> <value unit="pg/mL" xsi:type ="PQ" value="14" /> <referenceRange> & lt;observationRange> <text>NRG</text> &lt ;/observationRange> </referenceRange> </observation& gt; </component> </organizer> </entry> <entry&gt ; <organizer moodCode="EVN" classCode="BATTERY"> <templateId root="2.16.840.1.582427.10.20.22.4.1" /> & lt;id nullFlavor="NA" /> <code codeSystem="local&quot ; code="LCORTR-A" displayName="L902.5645" /> < statusCode code="completed" /> <component> < observation moodCode="EVN" classCode="OBS"> < templateId root="2.16.840.1.055331.10.20.22.4.2" /> < id nullFlavor="NA" /> <code codeSystem="local&quot ; code="902.5645" displayName="Cortisol Random, Serum - AMS&quot ; /> <statusCode code="completed" /> < effectiveTime value="327822445387" /> <value unit=&quot ;ug/dL" xsi:type="PQ" value="8" /> < referenceRange> <observationRange> <text>3-20& lt;/text> </observationRange> </referenceRange& gt; </observation> </component> </organizer> & lt;/entry> <entry> <organizer moodCode="EVN" classCode ="BATTERY"> <templateId root=" 2.16.840.1.653364.10.20.22.4.1" /><id nullFlavor="NA" /&gt ; <code codeSystem="local" code="LT4F" displayName=& quot;L200.3600" /> <statusCode code="completed" />& lt;component> <observation moodCode="EVN" classCode=&quot ;OBS"> <templateId root="2.16.840.1.428588.10.20.22.4.2&quot ; /> <id nullFlavor="NA" /> <code codeSystem="local" code="300.5250" displayName="Free T4 (Free Thyroxine)-Batch" /> <statusCode code=" completed" /> <effectiveTime value="863335739792" /> <value unit="NG/DL" xsi:type="PQ" value=& quot;1.89" /> <referenceRange> < observationRange> <text>0.78-2.19</text> </observationRange> </referenceRange> </ observation> </component> </organizer> </entry> & lt;entry> <organizer moodCode="EVN" classCode="BATTERY& quot;> <templateId root="2.16.840.1.431499.10.20.22.4.1" /& gt; <id nullFlavor="NA" /> <code codeSystem=" local" code="LCBC" displayName="L100.0050" /> & lt;statusCode code="completed" /> <component> &lt ;observation moodCode="EVN" classCode="OBS"> &lt ;templateId root="2.16.840.1.830127.10.20.22.4.2" /> < id nullFlavor="NA" /> <code codeSystem="local&quot ; code="100.0150"displayName="WBC - WHITE BLOOD COUNT" /&gt ; <statusCode code="completed" /> < effectiveTime value="364438548178" /> <value unit=&quot ;T/MM3" xsi:type="PQ" value="13.6" /> < interpretationCode codeSystem="local" code="*" /> <referenceRange> <observationRange> < text>4.5-11.0</text> </observationRange> < /referenceRange> </observation> </component> &lt ;component> <observation moodCode="EVN" classCode=" OBS"> <templateId root="2.16.840.1.352147.10.20.22.4.2& quot; /> <id nullFlavor="NA" /> <code codeSystem="local" code="100.0250" displayName="RED BLOOD COUNT" /> <statusCode code="completed" /&gt ; <effectiveTime value="677007821544" /> < value unit="M/MM3" xsi:type="PQ" value="5.03" /&gt ; <referenceRange> <observationRange> <text>4.00-5.20</text> </observationRange> & lt;/referenceRange> </observation> </component> <component> <observation moodCode="EVN" classCode=& quot;OBS"> <templateId root=" 2.16.840.1.139798.10.20.22.4.2" /> <id nullFlavor="NA& quot; /> <code codeSystem="local" code="100.0300& quot; displayName="HGB -HEMOGLOBIN" /> <statusCode code ="completed" /> <effectiveTime value="266942317599 " /> <value unit="GM/DL" xsi:type="PQ" value="13.7" /> <referenceRange> < observationRange> <text>12-16</text> < /observationRange> </referenceRange> </observation& gt; </component> <component> <observation moodCode="EVN" classCode="OBS"> <templateId root="2.16.840.1.478048.10.20.22.4.2" /> <id nullFlavor ="NA" /> <code codeSystem="local" code="100.0400 " displayName="HCT - HEMATOCRIT" /> <statusCode code="completed" /> <effectiveTime value=" 807269138849" /> <value unit="%" xsi:type= "PQ" value="41.8" /> <referenceRange> <observationRange> <text>36-46</text> </observationRange> </referenceRange> </ observation> </component> <component> < observation moodCode="EVN" classCode="OBS"> < templateId root="2.16.840.1.249448.10.20.22.4.2" /> < id nullFlavor="NA" /> <code codeSystem="local&quot ; code="100.0550" displayName="MEAN CORPUSCULAR VOLUME" /&gt ; <statusCode code="completed" /> < effectiveTime value="479583379123" /> <value unit=&quot ;UM3" xsi:type="PQ" value="83.1" /> < referenceRange> <observationRange> <text>80-100< /text> </observationRange> </referenceRange> </observation> </component> <component> <observation moodCode="EVN" classCode="OBS"> <templateId root="2.16.840.1.240819.10.20.22.4.2" /> <id nullFlavor="NA" /> <code codeSystem=" local" code="100.0600" displayName="MEAN CORPUSCULAR HGB& quot; /> <statusCode code="completed" /> & lt;effectiveTime value="663711363509" /> <value unit=& quot;UUG" xsi:type="PQ" value="27.2" /> &lt ;referenceRange> <observationRange> <text&gt ;26-34</text> </observationRange> </ referenceRange> </observation> </component> < component> <observation moodCode="EVN" classCode=" OBS"> <templateId root="2.16.840.1.656168.10.20.22.4.2& quot; /> <id nullFlavor="NA" /> <code codeSystem="local" code="100.0650" displayName="MEAN CORPUSCULAR HGB CONC(MCHC" /> <statusCode code=" completed" /> <effectiveTime value="430311578298" /> <value unit="GM/DL" xsi:type="PQ" value=& quot;32.8" /> <referenceRange> < observationRange> <text>31-37</text> < /observationRange> </referenceRange> </observation&gt ; </component> <component> <observation moodCode ="EVN" classCode="OBS"> <templateId root=& quot;2.16.840.1.065389.10.20.22.4.2" /> <id nullFlavor=&quot ;NA" /> <code codeSystem="local" code=" 100.0750" displayName="RDW STANDARD DEVIATION" /> < statusCode code="completed" /> <effectiveTime value=& quot;278084721300" /> <value unit="FL" xsi:type=& quot;PQ" value="42.4" /> <referenceRange> <observationRange> <text>36.9-50.2</text> </observationRange> </referenceRange> </ observation> </component> <component> < observation moodCode="EVN" classCode="OBS"> < templateId root="2.16.840.1.458479.10.20.22.4.2" /> < id nullFlavor="NA" /> <code codeSystem="local&quot ; code="100.0850" displayName="PLT - PLATELET COUNT" /> <statusCode code="completed" /> <effectiveTime value="659749357169" /> <value unit="T/MM3" xsi:type="PQ" value="318" /> <referenceRange& gt; <observationRange> <text>130-400</ text> </observationRange> </referenceRange> </observation> </component> <component> <observation moodCode="EVN" classCode="OBS"> <templateId root="2.16.840.1.951723.10.20.22.4.2" /> <id nullFlavor="NA" /> <code codeSystem=" local" code="100.0950" displayName="MEAN PLATELET VOLUME& quot; /> <statusCode code="completed" /> & lt;effectiveTime value="877357277033" /> <value unit=& quot;UM3" xsi:type="PQ" value="9.4" /> < referenceRange> <observationRange> <text> 9.4-12.4</text> </observationRange> </ referenceRange> </observation> </component> < component> <observation moodCode="EVN" classCode=" OBS"> <templateId root="2.16.840.1.006885.10.20.22.4.2& quot; /> <id nullFlavor="NA" /> <code codeSystem="local" code="100.1050" displayName=" NEUTROPHILS % (AUTO)" /> <statusCode code=" completed" /> <effectiveTime value="835401811815" /> <value unit="%" xsi:type="PQ" value="67.9" /> <interpretationCode codeSystem=" local" code="*" /> <referenceRange> < observationRange> <text>33-66</text> < /observationRange> </referenceRange> </observation& gt; </component> <component> <observation moodCode="EVN" classCode="OBS"> <templateId root="2.16.840.1.304377.10.20.22.4.2" /> <id nullFlavor ="NA" /> <code codeSystem="local" code=" 100.1100" displayName="LYMPHOCYTES % (AUTO)" /> <statusCode code="completed" /> <effectiveTime value="020867149977" /> <value unit="%&quot ; xsi:type="PQ" value="20.9" /> < interpretationCode codeSystem="local" code="*" /> <referenceRange> <observationRange> < text>23-45</text> </observationRange> </ referenceRange> </observation> </component> < component> <observation moodCode="EVN" classCode=" OBS"> <templateId root="2.16.840.1.658949.10.20.22.4.2& quot; /><id nullFlavor="NA" /> <code codeSystem=& quot;local" code="100.1150" displayName="MONOCYTES &#37 ; (AUTO)" /> <statusCode code="completed" /> <effectiveTime value="327847383999" /> < value unit="%" xsi:type="PQ" value="5.4" / > <referenceRange> <observationRange> <text>0-9.0</text> </observationRange> & lt;/referenceRange> </observation> </component> <component> <observation moodCode="EVN" classCode=& quot;OBS"> <templateId root=" 2.16.840.1.047795.10.20.22.4.2" /> <id nullFlavor="NA" /& gt; <code codeSystem="local" code="100.1200" displayName="EOSINOPHILS % (AUTO)" /> < statusCode code="completed" /> <effectiveTime value=& quot;942009134458" /><value unit="%" xsi:type=&quot ;PQ" value="4.9" /> <interpretationCode codeSystem ="local" code="*" /> <referenceRange> <observationRange> <text>0-4</text> </observationRange> </referenceRange> </ observation> </component> <component> < observation moodCode="EVN" classCode="OBS"> < templateId root="2.16.840.1.388738.10.20.22.4.2" /> < id nullFlavor="NA" /> <code codeSystem="local&quot ; code="100.1250"displayName="BASOPHILS % (AUTO)" /& gt; <statusCode code="completed" /> < effectiveTime value="395007969238" /> <value unit=&quot ;%" xsi:type="PQ" value="0.4" /> & lt;referenceRange> <observationRange> <text& gt;0-2</text> </observationRange> </ referenceRange> </observation> </component> < component> <observation moodCode="EVN" classCode=" OBS"> <templateId root="2.16.840.1.091586.10.20.22.4.2& quot; /> <id nullFlavor="NA" /> <code codeSystem="local" code="100.1275"displayName=" IMMATURE GRANULOCYTE % (AUTO)" /> <statusCode code=& quot;completed" /> <effectiveTime value="945899328149& quot; /> <value unit="%" xsi:type="PQ&quot ; value="0.5" /> <referenceRange> < observationRange> <text>0.0-0.5</text> </ observationRange> </referenceRange> </observation&gt ; </component> <component> <observation moodCode ="EVN" classCode="OBS"> <templateId root=& quot;2.16.840.1.072257.10.20.22.4.2" /> <id nullFlavor="NA& quot; /> <code codeSystem="local" code="100.1300& quot; displayName="NEUTROPHILS # (AUTO)" /> < statusCode code="completed" /> <effectiveTime value=& quot;295656975356" /> <value unit="T/MM3" xsi:type ="PQ" value="9.2" /> <interpretationCode codeSystem="local" code="*" /> < referenceRange> <observationRange> <text>1.8- 7.7</text> </observationRange> </ referenceRange> </observation> </component> < component> <observation moodCode="EVN" classCode=" OBS"> <templateId root="2.16.840.1.004572.10.20.22.4.2&quot ; /> <id nullFlavor="NA" /> <code codeSystem="local" code="100.1350" displayName=" LYMPHOCYTES # (AUTO)" /> <statusCode code="completed& quot; /> <effectiveTime value="915362271681" /> <value unit="T/MM3" xsi:type="PQ" value="2.8& quot; /> <referenceRange><observationRange> <text>1-4.8</text> </observationRange> & lt;/referenceRange> </observation> </component> <component> <observation moodCode="EVN" classCode=& quot;OBS"> <templateId root=" 2.16.840.1.811606.10.20.22.4.2" /> <id nullFlavor="NA& quot; /> <code codeSystem="local" code="100.1400& quot; displayName="MONOCYTES # (AUTO)" /> <statusCode code="completed" /><effectiveTime value="547116808493&quot ; /> <value unit="T/MM3" xsi:type="PQ" value= "0.7" /> <referenceRange> < observationRange> <text>0-0.8</text> < /observationRange> </referenceRange> </observation> </component> <component> <observation moodCode=& quot;EVN" classCode="OBS"> <templateId root=" 2.16.840.1.342840.10.20.22.4.2" /> <id nullFlavor="NA& quot; /> <code codeSystem="local" code="100.1450& quot; displayName="EOSINOPHILS # (AUTO)" /> < statusCode code="completed" /> <effectiveTime value=& quot;386559727231" /> <value unit="T/MM3" xsi:type ="PQ" value="0.7" /> <interpretationCode codeSystem="local"code="*" /> <referenceRange > <observationRange> <text>0-0.5</text> </observationRange> </referenceRange> </ observation> </component> <component> < observation moodCode="EVN" classCode="OBS"> < templateId root="2.16.840.1.176856.10.20.22.4.2" /> < id nullFlavor="NA" /> <code codeSystem="local&quot ; code="100.1500" displayName="BASOPHILS # (AUTO)" /> <statusCode code="completed" /> < effectiveTime value="532696536914" /> <value unit=&quot ;T/MM3" xsi:type="PQ" value="0.1" /> < referenceRange> <observationRange> <text> 0-0.2</text> </observationRange> </ referenceRange> </observation> </component> < component> <observation moodCode="EVN" classCode=" OBS"> <templateId root="2.16.840.1.566705.10.20.22.4.2& quot; /> <id nullFlavor="NA" /> <code codeSystem="local" code="100.1525" displayName=" IMMATURE GRANULOCYTE # (AUTO)" /> <statusCode code=" completed" /> <effectiveTime value="736546064597" /> <value unit="T/MM3" xsi:type="PQ" value=& quot;0.07" /> <interpretationCode codeSystem="local& quot; code="*" /> <referenceRange> < observationRange> <text>0.00-0.03</text> </observationRange> </referenceRange> </ observation> </component> </organizer> </entry> & lt;entry> <organizer moodCode="EVN" classCode="BATTERY& quot;> <templateId root="2.16.840.1.278033.10.20.22.4.1" /& gt; <id nullFlavor="NA" /> <code codeSystem=" local" code="LCMP" displayName="L200.0020" /> & lt;statusCode code="completed" /> <component> &lt ;observation moodCode="EVN" classCode="OBS"> &lt ;templateId root="2.16.840.1.898219.10.20.22.4.2" /> < id nullFlavor="NA" /> <code codeSystem="local&quot ; code="300.0400" displayName="FUNGAL CULTURE." /> <statusCode code="completed" /> <effectiveTime value="838851260492" /> <value unit="MG/DL" xsi:type="PQ" value="1.1" /> <referenceRange> <observationRange> <text>0.7-1.2</text> </observationRange> </referenceRange> & lt;/observation> </component> <component> < observation moodCode="EVN" classCode="OBS"> < templateId root="2.16.840.1.663450.10.20.22.4.2" /> < id nullFlavor="NA" /> <code codeSystem="local&quot ; code="300.0450" displayName="FUNGAL CULTURE, BLOOD." /&gt ; <statusCode code="completed" /> < effectiveTime value="557884407764" /> <value unit=" RATIO" xsi:type="PQ" value="12" /> < referenceRange> <observationRange> <text> 6-26</text> </observationRange> </ referenceRange> </observation> </component> < component> <observation moodCode="EVN" classCode=" OBS"> <templateId root="2.16.840.1.562688.10.20.22.4.2& quot; /> <id nullFlavor="NA" /> <code codeSystem="local" code="300.0100" displayName="NA - Sodium" /> <statusCode code="completed" /> <effectiveTime value="037640991535" /> <value unit="MEQ/L" xsi:type="PQ" value="140" /> <referenceRange> <observationRange> &lt ;text>134-144</text> </observationRange> < /referenceRange> </observation> </component> &lt ;component> <observation moodCode="EVN" classCode=" OBS"> <templateId root="2.16.840.1.410820.10.20.22.4.2& quot; /> <id nullFlavor="NA" /> <code codeSystem="local" code="300.0150" displayName=" Potassium" /> <statusCode code="completed" /> <effectiveTime value="632621685919" /> <value unit="MEQ/L" xsi:type="PQ" value="3.9" /> <referenceRange> <observationRange> &lt ;text>3.6-5</text> </observationRange> </ referenceRange> </observation> </component> < component> <observation moodCode="EVN" classCode=" OBS"> <templateId root="2.16.840.1.491495.10.20.22.4.2& quot; /> <id nullFlavor="NA" /> <code codeSystem="local" code="300.0200" displayName=" Chloride" /> <statusCode code="completed" /> <effectiveTime value="937205527690" /> < value unit="MEQ/L" xsi:type="PQ" value="103" /&gt ; <referenceRange> <observationRange> <text>98-107</text> </observationRange> </referenceRange> </observation> </component> <component> <observation moodCode="EVN" classCode ="OBS"> <templateId root=" 2.16.840.1.003072.10.20.22.4.2" /> <id nullFlavor="NA& quot; /> <code codeSystem="local" code="300.0250" displayName="CO2 - Carbon Dioxide" /> <statusCode code= "completed" /> <effectiveTime value="980592146391& quot; /> <value unit="MEQ/L" xsi:type="PQ" value="26" /> <referenceRange> < observationRange> <text>22-30</text> </ observationRange> </referenceRange> </observation&gt ; </component> <component> <observation moodCode ="EVN" classCode="OBS"> <templateId root=& quot;2.16.840.1.667734.10.20.22.4.2" /> <id nullFlavor=&quot ;NA" /> <code codeSystem="local" code=" 300.0300" displayName="Anion Gap" /> <statusCode code=& quot;completed" /> <effectiveTime value="250023654924& quot; /> <value unit="MEQ/L" xsi:type="PQ" value="11" /> <referenceRange> < observationRange> <text>5-15</text> </ observationRange> </referenceRange> </observation&gt ; </component> <component> <observation moodCode ="EVN" classCode="OBS"> <templateId root=& quot;2.16.840.1.778627.10.20.22.4.2" /> <id nullFlavor=&quot ;NA" /> <code codeSystem="local" code=" 300.0350" displayName="BUN - Blood Urea Nitrogen" /> <statusCode code="completed" /> <effectiveTime value ="660138322365" /> <value unit="MG/DL" xsi: type="PQ" value="13.0" /> <referenceRange&gt ; <observationRange> <text>7-17</text&gt ; </observationRange> </referenceRange> & lt;/observation> </component> <component> < observation moodCode="EVN" classCode="OBS"> < templateId root="2.16.840.1.873619.10.20.22.4.2" /> < id nullFlavor="NA" /> <code codeSystem="local&quot ; code="300.0410" displayName="Glomerular Filtration Rate" / > <statusCode code="completed" /> < effectiveTime value="749402172258" /> <value unit=&quot ;" xsi:type="PQ" value="58" /> <referenceRange > <observationRange> <text>NRG</text& gt; </observationRange> </referenceRange> </observation> </component> <component> &lt ;observation moodCode="EVN" classCode="OBS"> &lt ;templateId root="2.16.840.1.820806.10.20.22.4.2" /> < id nullFlavor="NA" /> <code codeSystem="local&quot ; code="300.0500" displayName="Glucose" /> < statusCode code="completed" /> <effectiveTime value=& quot;496119072155" /> <value unit="MG/DL" xsi:type ="PQ" value="93" /> <referenceRange> <observationRange> <text>65-110</text> </observationRange> </referenceRange> </ observation> </component> <component> < observation moodCode="EVN" classCode="OBS"> < templateId root="2.16.840.1.920650.10..22.4.2" /> < id nullFlavor="NA" /> <code codeSystem="local&quot ; code="300.2000" displayName="Osmolality,Calculated" /> <statusCode code="completed" /> < effectiveTime value="120730272647" /> <value unit=&quot ;MOSM/KG" xsi:type="PQ" value="269" /> < referenceRange> <observationRange> <text> 261-280</text> </observationRange> </ referenceRange> </observation> </component> < component> <observation moodCode="EVN" classCode=" OBS"> <templateId root="[id number]& quot; /> <id nullFlavor="NA" /> <code codeSystem="local" code="300.2200" displayName="Calcium " /> <statusCode code="completed" /> < effectiveTime value="[id number]" /> <value unit=&quot ;MG/DL" xsi:type="PQ" value="9.4" /> < referenceRange> <observationRange> <text> 8.4-10.2</text> </observationRange> </ referenceRange> </observation> </component> < component> <observation moodCode="EVN" classCode=" OBS"> <templateId root="[id number]& quot; /> <id nullFlavor="NA" /> <code codeSystem="local" code="300.2700" displayName=" Bilirubin,Total" /> <statusCode code="completed" / > <effectiveTime value="[id number]" /> & lt;value unit="MG/DL" xsi:type="PQ" value="0.80" / > <referenceRange> <observationRange> <text>0.20-1.30</text> </observationRange>& lt;/referenceRange> </observation> </component> <component> <observation moodCode="EVN" classCode=" OBS"> <templateId root="2.16.840.1.995422.10.20.22.4.2& quot; /> <id nullFlavor="NA" /> <code codeSystem="local" code="300.2975" displayName=" Alkaline Phosphatase" /> <statusCode code="completed& quot; /> <effectiveTime value="184396855129" /> <value unit="U/L" xsi:type="PQ" value="77&quot ; /> <referenceRange> <observationRange> <text>38-126</text> </observationRange> </referenceRange> </observation> </component& gt; <component> <observation moodCode="EVN" classCode="OBS"> <templateId root=" 2.16.840.1.491514.10.20.22.4.2" /> <id nullFlavor="NA& quot; /> <code codeSystem="local" code="300.3050& quot; displayName="AST - Aspartate Amino Transfer" /> < statusCode code="completed" /> <effectiveTime value=& quot;803166551279" /> <value unit="U/L" xsi:type=& quot;PQ" value="16" /> <referenceRange> <observationRange> <text>14-36</text> </observationRange> </referenceRange> </ observation> </component> <component> < observation moodCode="EVN" classCode="OBS"> < templateId root="2.16.840.1.209177.10.20.22.4.2" /> < id nullFlavor="NA" /> <code codeSystem="local&quot ; code="300.3100" displayName="ALT" /> <statusCode code="completed" /> <effectiveTime value=" 534218539718" /> <value unit="U/L" xsi:type=" PQ" value="30" /> <referenceRange> & lt;observationRange> <text>9-52</text> & lt;/observationRange> </referenceRange> </ observation> </component> <component> < observation moodCode="EVN" classCode="OBS"> < templateId root="2.16.840.1.157803.10.20.22.4.2" /> < id nullFlavor="NA" /> <code codeSystem="local&quot ; code="300.3110" displayName="TP - Total Protein" /> <statusCode code="completed" /> < effectiveTime value="262151046513" /> <value unit=&quot ;G/DL" xsi:type="PQ" value="7.1" /> < referenceRange> <observationRange> <text> 6.3-8.2</text> </observationRange> </ referenceRange> </observation> </component> < component> <observation moodCode="EVN" classCode=" OBS"> <templateId root="2.16.840.1.744672.10.20.22.4.2& quot; /> <id nullFlavor="NA" /> <code codeSystem="local" code="300.3120" displayName=" Albumin Level" /> <statusCode code="completed" /& gt; <effectiveTime value="695068518892" /> &lt ;value unit="G/DL" xsi:type="PQ" value="4.2" /&gt ; <referenceRange> <observationRange> <text>3.5-5.0</text> </observationRange> </ referenceRange> </observation> </component> < component> <observation moodCode="EVN" classCode=" OBS"> <templateId root="2.16.840.1.870277.10.20.22.4.2& quot; /> <id nullFlavor="NA" /> <code codeSystem="local" code="300.3130" displayName=" Globulin" /> <statusCode code="completed" /> <effectiveTime value="116473066444" /> < value unit="G/DL" xsi:type="PQ" value="2.9" /> <referenceRange> <observationRange> < text>2.4-3.6</text> </observationRange> </ referenceRange> </observation> </component> < component> <observation moodCode="EVN" classCode=" OBS"> <templateId root="2.16.840.1.524245.10.20.22.4.2" / > <id nullFlavor="NA" /> <code codeSystem="local" code="300.3140" displayName="Albumin /Globulin Ratio" /> <statusCode code="completed" / > <effectiveTime value="076812351819" /> &lt ;value unit="RATIO" xsi:type="PQ" value="1.4" /&gt ; <referenceRange> <observationRange> <text>1.1-2.2</text> </observationRange> </referenceRange> </observation> </component> <component> <observation moodCode="EVN" classCode="OBS"> <templateId root=" 2.16.840.1.162166.10.20.22.4.2" /> <id nullFlavor="NA& quot; /> <code codeSystem="local" code="300.0095& quot; displayName="LICTERUS" /> <statusCode code=" completed" /> <effectiveTime value="937464020748" /> <value unit="" xsi:type="PQ" value="& amp;lt; 2" /> <referenceRange> < observationRange> <text>0-7</text> </ observationRange> </referenceRange> </observation&gt ; </component> <component><observation moodCode=" EVN" classCode="OBS"> <templateId root=" 2.16.840.1.004030.10.20.22.4.2" /> <id nullFlavor="NA& quot; /> <code codeSystem="local" code="300.0096" displayName="LHEMOLYSIS" /> <statusCode code=" completed" /> <effectiveTime value="981630978325" /> <value unit="" xsi:type="PQ" value="& amp;lt; 15" /> <referenceRange> < observationRange> <text>0-25</text> </ observationRange> </referenceRange> </observation&gt ; </component> <component> <observationmoodCode= "EVN" classCode="OBS"> <templateId root=&quot ;2.16.840.1.231693.10.20.22.4.2" /> <id nullFlavor="NA& quot; /> <code codeSystem="local" code="300.0097& quot; displayName="LTURBIDITY" /> <statusCode code=" completed" /> <effectiveTime value="112803861532" /> <value unit="" xsi:type="PQ" value="& amp;lt; 20" /> <referenceRange> < observationRange> <text>0-20</text> </ observationRange> </referenceRange> </observation&gt ; </component> </organizer> </entry> <entry> <organizer moodCode="EVN" classCode="BATTERY"> <templateId root="2.16.840.1.675501.10.20.22.4.1" /> < id nullFlavor="NA" /> <code codeSystem="local" code="LMAG" displayName="L200.2000" /> < statusCode code="completed" /> <component> < observation moodCode="EVN" classCode="OBS"> < templateId root="2.16.840.1.093841.10.20.22.4.2" /> < id nullFlavor="NA" /> <code codeSystem="local&quot ; code="300.2350" displayName="MAG - Magnesium" /> <statusCode code="completed" /> <effectiveTime value="131818992120" /> <value unit="MG/DL" xsi:type="PQ" value="1.9" /> <referenceRange> <observationRange> <text>1.6-2.3</text&gt ; </observationRange> </referenceRange> & lt;/observation> </component> </organizer> </entry&gt ; <entry> <organizer moodCode="EVN" classCode=" BATTERY"> <templateId root="2.16.840.1.603333.10.20.22.4.1& quot; /> <id nullFlavor="NA" /> <code codeSystem ="local" code="LLDH" displayName="L200.1855" /&gt ; <statusCode code="completed" /> <component> <observation moodCode="EVN"classCode="OBS"> <templateId root="2.16.840.1.733627.10.20.22.4.2" /> <id nullFlavor="NA" /> <code codeSystem=" local" code="300.3250" displayName="LDH - Lactate Dehydrogenase" /> <statusCode code="completed" /& gt; <effectiveTime value="250997755626" /> &lt ;value unit="U/L" xsi:type="PQ" value="349" /> <referenceRange> <observationRange> < text>313-618</text> </observationRange> </ referenceRange> </observation> </component> </ organizer> </entry> <entry> <organizer moodCode="EVN " classCode="BATTERY"> <templateId root=" 2.16.840.1.450749.10.20.22.4.1" /> <id nullFlavor="NA&quot ; /> <code codeSystem="local" code="LTSH" displayName="L200.3850" /> <statusCode code="completed " /> <component> <observation moodCode="EVN& quot;classCode="OBS"> <templateId root=" 2.16.840.1.663313.10.20.22.4.2" /> <id nullFlavor="NA& quot; /> <code codeSystem="local" code="300.5500& quot; displayName="TSH - Thyroid Stim Hormone" /> < statusCode code="completed" /> <effectiveTime value=& quot;159153273882" /> <value unit="MIU/L" xsi:type ="PQ" value="32.50" /> <interpretationCode codeSystem="local" code="" /> < referenceRange> <observationRange> <text> 0.47-4.68</text> </observationRange> </ referenceRange> </observation> </component> </ organizer> </entry> <entry> <organizer moodCode="EVN " classCode="BATTERY"> <templateId root=" 2.16.840.1.051681.10.20.22.4.1" /> <id nullFlavor="NA&quot ; /> <code codeSystem="local" code="LCORTR-A" displayName="L902.5645" /> <statusCode code="completed " /> <component> <observation moodCode="EVN& quot; classCode="OBS"> <templateId root=" 2.16.840.1.337346.10.20.22.4.2" /> <id nullFlavor="NA& quot; /> <code codeSystem="local" code="902.5645& quot; displayName="Cortisol Random, Serum - AMS" /> < statusCode code="completed" /> <effectiveTime value=& quot;254816910840" /> <value unit="ug/dL" xsi:type ="PQ" value="9" /> <referenceRange> < observationRange> <text>3-20</text> </ observationRange> </referenceRange> </observation&gt ; </component> </organizer> </entry> <entry> <organizer moodCode="EVN" classCode="BATTERY"> & lt;templateId root="2.16.840.1.288468.10.20.22.4.1" /> <id nullFlavor="NA" /> <code codeSystem="local" code= "LT4F" displayName="L200.3600" /> <statusCode code="completed" /> <component> <observation moodCode="EVN" classCode="OBS"> <templateId root="2.16.840.1.455211.10.20.22.4.2" /> <id nullFlavor ="NA" /> <code codeSystem="local" code=" 300.5250" displayName="Free T4 (Free Thyroxine)-Batch" /> <statusCode code="completed" /> < effectiveTime value="614302763034" /> <value unit=&quot ;NG/DL" xsi:type="PQ" value="1.34" /> < referenceRange> <observationRange> <text> 0.78-2.19</text> </observationRange> </ referenceRange> </observation> </component> </ organizer> </entry> <entry> <organizermoodCode="EVN& quot; classCode="BATTERY"> <templateId root=" 2.16.840.1.931678.10.20.22.4.1" /> <id nullFlavor="NA&quot ; /> <code codeSystem="local" code="LACTH-A" displayName="L750.0200" /> <statusCode code="completed " /> <component> <observation moodCode="EVN& quot; classCode="OBS"> <templateId root=" 2.16.840.1.913820.10.20.22.4.2" /> <id nullFlavor="NA& quot; /> <code codeSystem="local" code="902.0325& quot; displayName="LACTH-A" /> <statusCode code=" completed" /> <effectiveTime value="626014054185" /> <value unit="pg/mL" xsi:type="PQ" value=& quot;20" /> <referenceRange> < observationRange> <text>NRG</text> </ observationRange> </referenceRange> </observation&gt ; </component> </organizer> </entry> <entry> <organizer moodCode="EVN" classCode="BATTERY"> <templateId root="2.16.840.1.128893.10.20.22.4.1" /> < id nullFlavor="NA" /> <code codeSystem="local" code="LCBC" displayName="L100.0050" /> < statusCode code="completed" /> <component> < observation moodCode="EVN" classCode="OBS"> < templateId root="2.16.840.1.165826.10.20.22.4.2" /> < id nullFlavor="NA" /> <code codeSystem="local&quot ; code="100.0150" displayName="WBC - WHITE BLOOD COUNT" /&gt ; <statusCode code="completed" /> < effectiveTime value="118820470586" /> <value unit=&quot ;T/MM3" xsi:type="PQ" value="11.1" /> < interpretationCode codeSystem="local" code="*" /> <referenceRange> <observationRange> <text> 4.5-11.0</text> </observationRange> </ referenceRange> </observation> </component> < component> <observation moodCode="EVN" classCode=" OBS"> <templateId root="2.16.840.1.218363.10.20.22.4.2&quot ; /> <id nullFlavor="NA" /> <code codeSystem="local" code="100.0250" displayName="RED BLOOD COUNT" /> <statusCode code="completed" /&gt ; <effectiveTime value="378565021966" /> <value unit="M/MM3"xsi:type="PQ" value="5.03" /> <referenceRange> <observationRange> &lt ;text>4.00-5.20</text> </observationRange> & lt;/referenceRange> </observation> </component> <component> <observation moodCode="EVN" classCode=& quot;OBS"> <templateId root=" 2.16.840.1.023352.10.20.22.4.2" /> <id nullFlavor="NA& quot; /> <code codeSystem="local" code="100.0300& quot; displayName="HGB - HEMOGLOBIN" /> <statusCode code="completed" /> <effectiveTime value=" 331255874085" /> <value unit="GM/DL" xsi:type=& quot;PQ" value="13.9" /> <referenceRange> <observationRange> <text>12-16</text> </observationRange> </referenceRange> </ observation> </component> <component> < observation moodCode="EVN" classCode="OBS"> < templateId root="2.16.840.1.483695.10.20.22.4.2" /> < id nullFlavor="NA" /> <code codeSystem="local&quot ; code="100.0400" displayName="HCT - HEMATOCRIT" /> <statusCode code="completed" /> <effectiveTime value="005721509259" /> <value unit="%& quot; xsi:type="PQ" value="41.8" /> < referenceRange> <observationRange> <text> 36-46</text> </observationRange> </ referenceRange> </observation> </component> < component><observation moodCode="EVN" classCode="OBS"& gt; <templateId root="2.16.840.1.595575.10.20.22.4.2" /&gt ; <id nullFlavor="NA" /> <code codeSystem=" local" code="100.0550" displayName="MEAN CORPUSCULAR VOLUME& quot; /> <statusCode code="completed" /> & lt;effectiveTime value="233720736130" /> <value unit=& quot;UM3" xsi:type="PQ" value="83.1" /> &lt ;referenceRange> <observationRange> <text> 80-100</text> </observationRange> </ referenceRange> </observation> </component> < component> <observation moodCode="EVN" classCode=" OBS"> <templateId root="2.16.840.1.359740.10..22.4.2& quot; /> <id nullFlavor="NA" /> <code codeSystem="local" code="100.0600" displayName="MEAN CORPUSCULAR HGB" /> <statusCode code="completed" / > <effectiveTime value="680498790826" /> & lt;value unit="UUG" xsi:type="PQ" value="27.6" /& gt; <referenceRange> <observationRange> < text>26-34</text> </observationRange> </ referenceRange> </observation> </component> < component> <observation moodCode="EVN" classCode=" OBS"> <templateId root="2.16.840.1.184491.10..22.4.2& quot; /> <id nullFlavor="NA" /> <code codeSystem="local" code="100.0650" displayName="MEAN CORPUSCULAR HGB CONC(MCHC" /> <statusCode code=" completed" /> <effectiveTime value="401621090301" /> <value unit="GM/DL" xsi:type="PQ" value=& quot;33.3" /> <referenceRange> < observationRange> <text>31-37</text> </ observationRange> </referenceRange> </observation&gt ; </component> <component> <observation moodCode ="EVN" classCode="OBS"> <templateId root=& quot;2.16.840.1.556011.10.20.22.4.2" /> <id nullFlavor=&quot ;NA" /> <code codeSystem="local" code=" 100.0750" displayName="RDW STANDARD DEVIATION" /> &lt ;statusCode code="completed" /> <effectiveTime value=& quot;629480862052" /> <value unit="FL" xsi:type=& quot;PQ" value="41.9" /> <referenceRange> <observationRange><text>36.9-50.2</text> &lt ;/observationRange> </referenceRange> </observation& gt; </component> <component> <observation moodCode="EVN" classCode="OBS"> <templateId root="2.16.840.1.802084.10.20.22.4.2" /> <id nullFlavor ="NA" /> <code codeSystem="local" code=" 100.0850" displayName="PLT - PLATELET COUNT" /> < statusCode code="completed" /> <effectiveTime value=& quot;935153399922" /> <value unit="T/MM3" xsi:type ="PQ" value="342" /> <referenceRange> <observationRange> <text>130-400</text> </observationRange> </referenceRange> </ observation> </component> <component> < observation moodCode="EVN" classCode="OBS"> < templateId root="2.16.840.1.868863.10.20.22.4.2" /> < id nullFlavor="NA" /> <code codeSystem="local&quot ; code="100.0950" displayName="MEAN PLATELET VOLUME" /> <statusCode code="completed" /> <effectiveTime value="928742858647" /> <value unit="UM3" xsi :type="PQ" value="9.6" /> <referenceRange&gt ; <observationRange> <text>9.4-12.4</text > </observationRange> </referenceRange> </observation> </component> <component> & lt;observation moodCode="EVN" classCode="OBS"> & lt;templateId root="2.16.840.1.651711.10.20.22.4.2" /> &lt ;id nullFlavor="NA" /> <code codeSystem="local& quot; code="100.1050" displayName="NEUTROPHILS % (AUTO)& quot; /> <statusCode code="completed" /> < effectiveTime value="773577567894" /> <value unit=&quot ;%" xsi:type="PQ" value="64.4" /> & lt;referenceRange> <observationRange> <text& gt;33-66</text> </observationRange> </ referenceRange> </observation> </component> < component> <observation moodCode="EVN" classCode=" OBS"> <templateId root="2.16.840.1.454084.10.20.22.4.2& quot; /> <id nullFlavor="NA" /> <code codeSystem="local" code="100.1100" displayName=" LYMPHOCYTES % (AUTO)" /> <statusCode code=" completed" /> <effectiveTime value="552850019852" /> <value unit="%" xsi:type="PQ" value="23.1" /> <referenceRange> < observationRange> <text>23-45</text> </ observationRange> </referenceRange> </observation&gt ; </component> <component> <observation moodCode ="EVN" classCode="OBS"> <templateId root=& quot;2.16.840.1.111818.10.20.22.4.2" /> <id nullFlavor=&quot ;NA" /> <code codeSystem="local" code=" 100.1150" displayName="MONOCYTES % (AUTO)"/> <statusCode code="completed" /> <effectiveTime value ="527029749796" /> <value unit="%" xsi:type="PQ" value="5.6" /> <referenceRange& gt; <observationRange> <text>0-9.0</text> </observationRange> </referenceRange> </ observation> </component> <component> < observationmoodCode="EVN" classCode="OBS"> < templateId root="2.16.840.1.796489.10.20.22.4.2" /> < id nullFlavor="NA" /> <code codeSystem="local&quot ; code="100.1200" displayName="EOSINOPHILS % (AUTO)&quot ; /> <statusCode code="completed" /> < effectiveTime value="111572213396" /> <value unit=&quot ;%" xsi:type="PQ" value="6.2" /> & lt;interpretationCode codeSystem="local" code="*" /> <referenceRange> <observationRange> & lt;text>0-4</text> </observationRange> </ referenceRange> </observation> </component> < component> <observation moodCode="EVN" classCode=" OBS"> <templateId root="2.16.840.1.291659.10..22.4.2& quot; /> <id nullFlavor="NA" /> <code codeSystem="local" code="100.1250" displayName=" BASOPHILS % (AUTO)" /> <statusCode code="completed& quot; /> <effectiveTime value="217527623994" /> <value unit="%" xsi:type="PQ" value=" 0.5" /> <referenceRange> <observationRange& gt; <text>0-2</text> </observationRange& gt; </referenceRange> </observation> </ component> <component> <observation moodCode="EVN& quot; classCode="OBS"> <templateId root=" 2.16.840.1.165227.10..22.4.2" /> <id nullFlavor="NA& quot; /> <code codeSystem="local" code="100.1275& quot; displayName="IMMATURE GRANULOCYTE % (AUTO)"/> <statusCode code="completed" /> <effectiveTime value="156910744992" /> <value unit="%& quot; xsi:type="PQ" value="0.2" /> < referenceRange> <observationRange> <text>0.0-0.5< /text> </observationRange> </referenceRange> </observation> </component> <component> <observation moodCode="EVN" classCode="OBS"> <templateId root="2.16.840.1.414804.10.20.22.4.2" /> <id nullFlavor="NA" /> <code codeSystem=" local" code="100.1300" displayName="NEUTROPHILS # (AUTO)& quot; /> <statusCode code="completed" /> & lt;effectiveTime value="571121541420" /> <value unit=& quot;T/MM3" xsi:type="PQ" value="7.1" /> & lt;referenceRange> <observationRange> <text& gt;1.8-7.7</text> </observationRange> </ referenceRange> </observation> </component> < component> <observation moodCode="EVN" classCode=" OBS"> <templateId root="2.16.840.1.642617.10.20.22.4.2& quot; /> <id nullFlavor="NA" /> <code codeSystem="local" code="100.1350" displayName=" LYMPHOCYTES # (AUTO)" /> <statusCode code="completed&quot ; /> <effectiveTime value="412985456417" /> <value unit="T/MM3" xsi:type="PQ" value="2.6&quot ; /> <referenceRange> <observationRange> <text>1-4.8</text> </observationRange> </referenceRange> </observation> </component& gt; <component> <observation moodCode="EVN" classCode="OBS"> <templateId root=" 2.16.840.1.387380.10.20.22.4.2" /> <id nullFlavor="NA& quot; /> <code codeSystem="local" code="100.1400& quot; displayName="MONOCYTES # (AUTO)" /> <statusCode code="completed" /> <effectiveTime value=" 580962386530" /> <value unit="T/MM3" xsi:type=& quot;PQ" value="0.6" /> <referenceRange> <observationRange> <text>0-0.8</text> </observationRange> </referenceRange> </ observation> </component> <component> < observation moodCode="EVN" classCode="OBS"> < templateId root="2.16.840.1.657040.10.20.22.4.2" /> < id nullFlavor="NA" /> <code codeSystem="local&quot ; code="100.1450" displayName="EOSINOPHILS # (AUTO)" /> <statusCode code="completed" /> < effectiveTime value="155476839515" /> <value unit=" T/MM3" xsi:type="PQ" value="0.7" /> < interpretationCode codeSystem="local" code="*" /> <referenceRange> <observationRange> < text>0-0.5</text></observationRange> </referenceRange > </observation> </component> <component> <observation moodCode="EVN" classCode="OBS"> <templateId root="2.16.840.1.738266.10.20.22.4.2" /> <id nullFlavor="NA" /> <code codeSystem=& quot;local" code="100.1500" displayName="BASOPHILS # (AUTO)& quot; /> <statusCode code="completed" /> & lt;effectiveTime value="" /> <value unit=& quot;T/MM3" xsi:type="PQ" value="0.1" /> & lt;referenceRange> <observationRange> <text& gt;0-0.2</text> </observationRange> </ referenceRange> </observation> </component> < component> <observation moodCode="EVN" classCode=" OBS"> <templateId root="2.16.840.1.608641.10.20.22.4.2& quot; /> <id nullFlavor="NA" /> <code codeSystem="local" code="100.1525" displayName=" IMMATURE GRANULOCYTE # (AUTO)" /> <statusCode code=" completed" /> <effectiveTime value="534177790927" /> <value unit="T/MM3" xsi:type="PQ" value=& quot;0.02" /> <referenceRange> < observationRange> <text>0.00-0.03</text> </observationRange> </referenceRange> </ observation> </component> </organizer> </entry> & lt;entry> <organizer moodCode="EVN"classCode="BATTERY& quot;> <templateId root="2.16.840.1.047716.10.20.22.4.1" /& gt; <id nullFlavor="NA" /> <code codeSystem=" local" code="LCMP" displayName="L200.0020" /> & lt;statusCode code="completed" /> <component> &lt ;observation moodCode="EVN" classCode="OBS"> &lt ;templateId root="2.16.840.1.580605.10.20.22.4.2" /> < idnullFlavor="NA" /> <code codeSystem="local&quot ; code="300.0400" displayName="FUNGAL CULTURE." /> <statusCode code="completed"/> <effectiveTime value="529386650062" /> <value unit="MG/DL" xsi:type="PQ" value="1.1" /> <referenceRange& gt; <observationRange> <text>0.7-1.2</text> </observationRange> </referenceRange> &lt ;/observation> </component> <component> < observation moodCode="EVN" classCode="OBS"> < templateId root="2.16.840.1.059759.10.20.22.4.2" /> < id nullFlavor="NA" /> <code codeSystem="local&quot ; code="300.0450" displayName="FUNGAL CULTURE, BLOOD." /&gt ; <statusCode code="completed" /> < effectiveTime value="137846955080" /> <value unit=&quot ;RATIO" xsi:type="PQ" value="13" /> < referenceRange><observationRange> <text>6-26</ text> </observationRange> </referenceRange> </observation> </component> <component> <observation moodCode="EVN" classCode="OBS"> <templateId root="2.16.840.1.685861.10.20.22.4.2" /> <id nullFlavor="NA" /> <code codeSystem=" local" code="300.0100" displayName="NA - Sodium" /> <statusCode code="completed" /> < effectiveTime value="294262078217" /> <value unit=&quot ;MEQ/L" xsi:type="PQ" value="140" /> < referenceRange> <observationRange> <text> 134-144</text> </observationRange> </ referenceRange> </observation> </component> < component> <observation moodCode="EVN" classCode="OBS& quot;> <templateId root="2.16.840.1.622864.10.20.22.4.2&quot ; /> <id nullFlavor="NA" /> <code codeSystem="local" code="300.0150" displayName=" Potassium" /> <statusCode code="completed" /> <effectiveTime value="207548772558" /> < value unit="MEQ/L" xsi:type="PQ" value="4.2" /&gt ; <referenceRange> <observationRange> <text >3.6-5</text> </observationRange> </ referenceRange> </observation> </component> < component> <observationmoodCode="EVN" classCode="OBS "> <templateId root="2.16.840.1.208799.10..22.4.2& quot; /> <id nullFlavor="NA" /> <code codeSystem="local" code="300.0200" displayName=" Chloride" /> <statusCode code="completed" /> <effectiveTime value="353497709169" /> < value unit="MEQ/L" xsi:type="PQ" value="104" /&gt ; <referenceRange> <observationRange> <text>98-107</text> </observationRange> </referenceRange> </observation> </component> <component> <observation moodCode="EVN" classCode ="OBS"> <templateId root=" 2.16.840.1.770281.10..22.4.2" /> <id nullFlavor="NA& quot; /> <code codeSystem="local" code="300.0250& quot; displayName="CO2 - Carbon Dioxide" /> < statusCode code="completed" /> <effectiveTime value=& quot;523954855871" /> <value unit="MEQ/L" xsi:type ="PQ" value="25" /> <referenceRange> <observationRange> <text>22-30</text> </observationRange> </referenceRange> </ observation> </component> <component> < observation moodCode="EVN" classCode="OBS"> < templateId root="[id number]" /> < id nullFlavor="NA" /> <code codeSystem="local&quot ; code="300.0300" displayName="Anion Gap" /> &lt ;statusCode code="completed" /> <effectiveTime value=& quot;[id number]" /> <value unit="MEQ/L" xsi:type ="PQ" value="11" /> <referenceRange> <observationRange> <text>5-15</text> </observationRange> </referenceRange> </ observation> </component> <component> < observation moodCode="EVN" classCode="OBS"> < templateId root="[id number]" /> < id nullFlavor="NA" /> <code codeSystem="local&quot ; code="300.0350" displayName="BUN - Blood Urea Nitrogen" /& gt; <statusCode code="completed" /> < effectiveTime value="[id number]" /> <value unit=&quot ;MG/DL" xsi:type="PQ" value="14.0" /> < referenceRange> <observationRange> <text> 7-17</text> </observationRange> </ referenceRange> </observation> </component> < component> <observation moodCode="EVN" classCode=" OBS"> <templateId root="2.16.840.1.891375.10.20.22.4.2& quot; /> <id nullFlavor="NA" /> <code codeSystem="local" code="300.0410"displayName=" Glomerular Filtration Rate" /> <statusCode code=" completed" /> <effectiveTime value="891506651530" /> <value unit="" xsi:type="PQ" value=" 58" /> <referenceRange> <observationRange> <text>NRG</text> </observationRange> </referenceRange> </observation> </component& gt; <component> <observation moodCode="EVN" classCode="OBS"> <templateId root=" 2.16.840.1.902919.10.20.22.4.2" /> <id nullFlavor="NA& quot; /> <code codeSystem="local" code="300.0500& quot; displayName="Glucose" /> <statusCode code=" completed" /> <effectiveTime value="600361852535" /> <value unit="MG/DL" xsi:type="PQ" value=& quot;107" /> <referenceRange> < observationRange> <text>65-110</text> &lt ;/observationRange> </referenceRange> </observation& gt; </component> <component> <observation moodCode=& quot;EVN" classCode="OBS"> <templateId root=" 2.16.840.1.974167.10.20.22.4.2" /> <id nullFlavor="NA& quot; /> <code codeSystem="local" code="300.2000&quot ; displayName="Osmolality,Calculated" /> <statusCode code="completed" /> <effectiveTime value=" 992680137266" /> <value unit="MOSM/KG" xsi:type=& quot;PQ" value="270" /> <referenceRange> <observationRange> <text>261-280</text> </observationRange> </referenceRange> </ observation> </component> <component><observation moodCode="EVN" classCode="OBS"> <templateId root="2.16.840.1.567209.10.20.22.4.2" /> <id nullFlavor ="NA" /> <code codeSystem="local" code=" 300.2200" displayName="Calcium" /> <statusCode code="completed" /> <effectiveTime value=" 025966666402" /> <value unit="MG/DL" xsi:type=& quot;PQ" value="9.9" /> <referenceRange> <observationRange> <text>8.4-10.2</text> </observationRange> </referenceRange> < /observation> </component> <component> < observation moodCode="EVN" classCode="OBS"> < templateId root="2.16.840.1.815282.10.20.22.4.2" /> < id nullFlavor="NA" /> <code codeSystem="local&quot ; code="300.2700" displayName="Bilirubin,Total" /> &lt ;statusCode code="completed" /> <effectiveTime value=& quot;424846332998" /> <value unit="MG/DL" xsi:type ="PQ" value="0.50" /> <referenceRange> <observationRange> <text>0.20-1.30</text&gt ; </observationRange> </referenceRange></ observation> </component> <component> < observation moodCode="EVN" classCode="OBS"> < templateId root="2.16.840.1.531284.10.20.22.4.2" /> < id nullFlavor="NA" /> <code codeSystem="local&quot ; code="300.2975" displayName="Alkaline Phosphatase" /> & lt;statusCode code="completed" /> <effectiveTime value= "544833100312" /> <value unit="U/L" xsi:type= "PQ" value="78" /> <referenceRange> <observationRange> <text>38-126</text> </observationRange> </referenceRange> </ observation> </component> <component> < observation moodCode="EVN" classCode="OBS"> < templateId root="2.16.840.1.513016.10.20.22.4.2" /> < id nullFlavor="NA" /> <code codeSystem="local&quot ; code="300.3050" displayName="AST - Aspartate Amino Transfer& quot; /> <statusCode code="completed" /> < effectiveTime value="189988664202" /> <value unit=&quot ;U/L" xsi:type="PQ" value="17" /> < referenceRange> <observationRange> <text> 14-36</text> </observationRange> </ referenceRange> </observation> </component> < component> <observation moodCode="EVN" classCode=" OBS"> <templateId root="2.16.840.1.971378.10.20.22.4.2& quot; /> <id nullFlavor="NA" /> <code codeSystem="local" code="300.3100" displayName="ALT& quot; /> <statusCode code="completed" /> & lt;effectiveTime value="039443486564" /> <value unit=& quot;U/L" xsi:type="PQ" value="36" /> < referenceRange> <observationRange> <text> 9-52</text> </observationRange> </ referenceRange> </observation> </component> < component> <observation moodCode="EVN" classCode=" OBS"> <templateId root="2.16.840.1.297604.10.20.22.4.2& quot; /> <id nullFlavor="NA" /> <code codeSystem="local" code="300.3110" displayName="TP - Total Protein" /> <statusCode code="completed" /& gt; <effectiveTime value="990186361315" /> &lt ;value unit="G/DL" xsi:type="PQ" value="7.4" /&gt ; <referenceRange> <observationRange> < text>6.3-8.2</text> </observationRange> </ referenceRange> </observation> </component> < component> <observation moodCode="EVN" classCode=" OBS"> <templateId root="2.16.840.1.660934.10.20.22.4.2&quot ; /> <id nullFlavor="NA" /> <code codeSystem="local" code="300.3120" displayName=" Albumin Level" /> <statusCode code="completed" /& gt; <effectiveTime value="955573674672" /> <value unit="G/DL" xsi:type="PQ" value="4.4" /> <referenceRange> <observationRange> < text>3.5-5.0</text> </observationRange> </ referenceRange> </observation> </component> < component> <observation moodCode="EVN" classCode=" OBS"> <templateId root="2.16.840.1.058306.10.20.22.4.2& quot; /> <id nullFlavor="NA" /> <code codeSystem="local" code="300.3130" displayName=" Globulin" /> <statusCode code="completed" /> <effectiveTime value="567244566779" /> < value unit="G/DL" xsi:type="PQ" value="3.0" /> <referenceRange> <observationRange> & lt;text>2.4-3.6</text> </observationRange> & lt;/referenceRange> </observation> </component> <component> <observation moodCode="EVN" classCode=& quot;OBS"> <templateId root=" 2.16.840.1.750796.10..22.4.2" /> <id nullFlavor="NA& quot; /> <code codeSystem="local" code="300.3140& quot; displayName="Albumin/Globulin Ratio" /> < statusCode code="completed" /> <effectiveTime value=& quot;082486966825" /> <value unit="RATIO" xsi:type ="PQ" value="1.5" /> <referenceRange> <observationRange> <text>1.1-2.2</text> </observationRange> </referenceRange> </ observation> </component> <component> < observation moodCode="EVN" classCode="OBS"> < templateId root="16.840.1.833071.10.20.22.4.2" /> < id nullFlavor="NA" /> <code codeSystem="local&quot ; code="300.0095" displayName="LICTERUS" /> < statusCode code="completed" /> <effectiveTime value=& quot;063738612048" /> <value unit="" xsi:type=& quot;PQ" value="< 2" /> <referenceRange&gt ; <observationRange> <text>0-7</text> </observationRange> </referenceRange> & lt;/observation> </component> <component> < observation moodCode="EVN" classCode="OBS"> < templateId root="2.840.1.468235.10.20.22.4.2" /> < id nullFlavor="NA" /> <code codeSystem="local&quot ; code="300.0096" displayName="LHEMOLYSIS" /> & lt;statusCode code="completed" /> <effectiveTime value= "552532537791" /> <value unit="" xsi:type=" PQ" value="< 15" /> <referenceRange> <observationRange> <text>0-25</text> & lt;/observationRange> </referenceRange> </ observation> </component> <component> < observation moodCode="EVN" classCode="OBS"> < templateId root="2.16.840.1.879274.10.20.22.4.2" /> < id nullFlavor="NA" /> <code codeSystem="local&quot ; code="300.0097" displayName="LTURBIDITY" /> & lt;statusCode code="completed" /> <effectiveTime value= "852204358452" /> <valueunit="" xsi:type=& quot;PQ" value="< 20" /> <referenceRange&gt ; <observationRange> <text>0-20</text&gt ; </observationRange> </referenceRange> & lt;/observation> </component> </organizer> </entry&gt ; <entry> <organizer moodCode="EVN" classCode=" BATTERY"> <templateId root="2.16.840.1.198324.10.20.22.4.1& quot; /> <id nullFlavor="NA" /> <code codeSystem ="local" code="LMAG" displayName="L200.2000" /&gt ; <statusCode code="completed" /> <component> <observation moodCode="EVN" classCode="OBS"> <templateId root="2.16.840.1.178247.10.20.22.4.2" /> <id nullFlavor="NA" /> <code codeSystem=" local" code="300.2350" displayName="MAG - Magnesium" /& gt; <statusCode code="completed" /> < effectiveTime value="070446324964" /> <value unit=&quot ;MG/DL" xsi:type="PQ" value="1.8" /> < referenceRange> <observationRange> <text>1.6- 2.3</text> </observationRange> </ referenceRange> </observation> </component> </ organizer> </entry> <entry> <organizer moodCode="EVN " classCode="BATTERY"> <templateId root=" 2.16.840.1.457051.10.20.22.4.1" /> <id nullFlavor="NA" / > <code codeSystem="local" code="LLDH" displayName="L200.1855" /> <statusCode code="completed " /> <component> <observation moodCode="EVN&quot ; classCode="OBS"> <templateId root=" 2.16.840.1.394464.10.20.22.4.2" /> <id nullFlavor="NA& quot; /> <code codeSystem="local" code="300.3250& quot; displayName="LDH - Lactate Dehydrogenase" /> < statusCode code="completed" /> <effectiveTime value=& quot;950348084050" /> <value unit="U/L" xsi:type=& quot;PQ" value="363" /> <referenceRange> <observationRange> <text>313-618</text> </observationRange> </referenceRange> </ observation> </component> </organizer> </entry> < entry> <organizer moodCode="EVN" classCode="BATTERY&quot ;> <templateId root="2.16.840.1.402977.10.20.22.4.1" /> <id nullFlavor="NA" /> <code codeSystem="local& quot; code="LPHOS" displayName="L200.0630" /> < statusCode code="completed" /> <component> < observation moodCode="EVN" classCode="OBS"> < templateId root="2.16.840.1.807491.10.20.22.4.2" /> < id nullFlavor="NA" /> <code codeSystem="local&quot ; code="300.2300" displayName="Phosphorus" /> & lt;statusCode code="completed" /> <effectiveTime value=" 540196613244" /> <value unit="MG/DL" xsi:type=& quot;PQ" value="4.8" /> <interpretationCode codeSystem="local" code="*" /> < referenceRange> <observationRange> <text> 2.5-4.5</text> </observationRange> </ referenceRange> </observation> </component> </ organizer> </entry> <entry> <organizer moodCode="EVN " classCode="BATTERY"> <templateId root=" 2.16.840.1.183001.10.20.22.4.1" /> <id nullFlavor="NA&quot ; /> <code codeSystem="local" code="LTSH" displayName="L200.3850" /> <statusCode code="completed " /> <component><observation moodCode="EVN" classCode="OBS"> <templateId root=" 2.16.840.1.682365.10.20.22.4.2" /> <id nullFlavor="NA& quot; /> <code codeSystem="local" code="300.5500" displayName="TSH - Thyroid Stim Hormone" /> < statusCode code="completed" /> <effectiveTime value=& quot;962466892932" /> <value unit="MIU/L" xsi:type ="PQ" value="26.30" /> <interpretationCode codeSystem="local" code="*" /> < referenceRange> <observationRange> <text>0.47-4.68& lt;/text> </observationRange> </referenceRange& gt; </observation> </component> </organizer> & lt;/entry> <entry> <organizer moodCode="EVN" classCode ="BATTERY"> <templateId root=" 2.16.840.1.526174.10.20.22.4.1" /> <id nullFlavor="NA&quot ; /> <code codeSystem="local" code="LACTH-A" displayName="L750.0200" /> <statusCode code="completed " /> <component> <observation moodCode="EVN& quot; classCode="OBS"> <templateId root=" 2.16.840.1.776196.10.20.22.4.2" /> <id nullFlavor="NA& quot; /> <code codeSystem="local" code="902.0325& quot; displayName="LACTH-A" /> <statusCode code=" completed" /> <effectiveTime value="462334538010" /> <value unit="" xsi:type="PQ" value=" 21" /> <referenceRange> <observationRange& gt; <text>NRG</text> </observationRange& gt; </referenceRange> </observation> </ component> </organizer> </entry> <entry> < organizer moodCode="EVN" classCode="BATTERY"> < templateId root="2.16.840.1.585159.10.20.22.4.1" /> <id nullFlavor="NA" /> <code codeSystem="local" code= "LCORTR-A" displayName="L902.5645" /> < statusCode code="completed" /> <component> < observation moodCode="EVN" classCode="OBS"> < templateId root="2.16.840.1.647731.10.20.22.4.2" /> < id nullFlavor="NA" /> <code codeSystem="local&quot ; code="902.5645" displayName="Cortisol Random, Serum - AMS&quot ; /> <statusCode code="completed" /> < effectiveTime value="543635388757" /> <value unit=&quot ;ug/dL" xsi:type="PQ" value="10" /> < referenceRange> <observationRange> <text> 3-20</text> </observationRange> </ referenceRange> </observation> </component> </ organizer> </entry> <entry> <organizer moodCode="EVN " classCode="BATTERY"> <templateId root=" 2.16.840.1.337214.10.20.22.4.1" /> <id nullFlavor="NA&quot ; /> <code codeSystem="local" code="LT4F" displayName="L200.3600" /> <statusCode code="completed " /> <component> <observation moodCode="EVN& quot; classCode="OBS"> <templateId root=" 2.16.840.1.505292.10.20.22.4.2" /> <id nullFlavor="NA& quot; /> <code codeSystem="local" code="300.5250& quot; displayName="Free T4 (Free Thyroxine)-Batch" /> < statusCode code="completed" /> <effectiveTime value=& quot;820143862040" /> <value unit="NG/DL" xsi:type ="PQ" value="1.55" /> <referenceRange> <observationRange> <text>0.78-2.19</text&gt ; </observationRange> </referenceRange> </ observation> </component> </organizer> </entry> & lt;entry> <organizer moodCode="EVN" classCode="BATTERY&quot ;> <templateId root="2.16.840.1.396419.10.20.22.4.1" /> <id nullFlavor="NA" /> <code codeSystem=" local" code="LCBC" displayName="L100.0050" /> & lt;statusCode code="completed" /> <component> &lt ;observation moodCode="EVN" classCode="OBS"> &lt ;templateId root="2.16.840.1.979102.10.20.22.4.2" /> < id nullFlavor="NA" /> <code codeSystem="local&quot ; code="100.0150" displayName="WBC - WHITE BLOOD COUNT" /&gt ; <statusCode code="completed" /> < effectiveTime value="408209005223" /> <value unit=&quot ;T/MM3" xsi:type="PQ" value="11.5" /> < interpretationCode codeSystem="local" code="*" /> &lt ;referenceRange> <observationRange> <text&gt ;4.5-11.0</text> </observationRange> </ referenceRange> </observation> </component> < component> <observation moodCode="EVN" classCode=" OBS"> <templateId root="2.16.840.1.474433.10.20.22.4.2& quot; /> <id nullFlavor="NA" /> <code codeSystem="local" code="100.0250" displayName="RED BLOOD COUNT" /> <statusCode code="completed" /&gt ; <effectiveTime value="117279884109" /> <value unit="M/MM3" xsi:type="PQ" value="4.87" /> <referenceRange> <observationRange> & lt;text>4.00-5.20</text> </observationRange> </referenceRange> </observation> </component> & lt;component> <observation moodCode="EVN" classCode=&quot ;OBS"> <templateId root="2.16.840.1.560599.10.20.22.4.2 " /> <id nullFlavor="NA" /> <code codeSystem="local" code="100.0300" displayName="HGB - HEMOGLOBIN" /> <statusCode code="completed" /> <effectiveTime value="370375090583" /> < value unit="GM/DL" xsi:type="PQ" value="13.6" /&gt ; <referenceRange> <observationRange> <text>12-16</text> </observationRange> </ referenceRange> </observation> </component> < component> <observation moodCode="EVN" classCode=" OBS"> <templateId root="2.16.840.1.711409.10.20.22.4.2& quot; /> <id nullFlavor="NA" /> <code codeSystem="local" code="100.0400" displayName="HCT - HEMATOCRIT" /> <statusCode code="completed" /> <effectiveTime value="580461676973" /> < value unit="%" xsi:type="PQ" value="40.6" /> <referenceRange> <observationRange> <text>36-46</text> </observationRange> </referenceRange> </observation> </component&gt ; <component> <observation moodCode="EVN" classCode="OBS"> <templateId root=" 2.16.840.1.159593.10.20.22.4.2" /> <id nullFlavor="NA& quot; /> <code codeSystem="local" code="100.0550& quot; displayName="MEAN CORPUSCULAR VOLUME" /> < statusCode code="completed" /> <effectiveTime value=& quot;267677955491" /> <value unit="UM3" xsi:type=& quot;PQ" value="83.4" /> <referenceRange> <observationRange> <text>80-100</text> </observationRange> </referenceRange> </ observation> </component> <component> < observation moodCode="EVN" classCode="OBS"> < templateId root="2.16.840.1.003965.10..22.4.2" /> < id nullFlavor="NA" /> <code codeSystem="local&quot ; code="100.0600" displayName="MEAN CORPUSCULAR HGB" /> <statusCode code="completed" /> < effectiveTime value="096822580691" /> <value unit=&quot ;UUG" xsi:type="PQ" value="27.9" /> < referenceRange> <observationRange> <text>26-34</ text> </observationRange> </referenceRange> </observation> </component> <component> <observation moodCode="EVN" classCode="OBS">< templateId root="2.16.840.1.527751.10.20.22.4.2" /> < id nullFlavor="NA" /> <code codeSystem="local&quot ; code="100.0650" displayName="MEAN CORPUSCULAR HGB CONC([facility]& quot; /> <statusCode code="completed" /> & lt;effectiveTime value="547109981038" /> <value unit=& quot;GM/DL" xsi:type="PQ" value="33.5" /> & lt;referenceRange> <observationRange> <text>31- 37</text> </observationRange> </ referenceRange> </observation> </component> < component> <observation moodCode="EVN" classCode=" OBS"> <templateId root="2.16.840.1.835626.10.20.22.4.2" / > <id nullFlavor="NA" /> <code codeSystem="local" code="100.0750" displayName="RDW STANDARD DEVIATION" /> <statusCode code="completed&quot ; /> <effectiveTime value="694582344772" /> <value unit="FL" xsi:type="PQ" value="43.0" /& gt; <referenceRange> <observationRange> <text>36.9-50.2</text> </observationRange> </referenceRange> </observation> </component& gt; <component> <observation moodCode="EVN" classCode="OBS"> <templateId root=" 2.16.840.1.570608.10.20.22.4.2" /> <id nullFlavor="NA& quot; /> <code codeSystem="local" code="100.0850& quot; displayName="PLT - PLATELET COUNT" /> < statusCode code="completed" /> <effectiveTime value=" 600574881298" /> <value unit="T/MM3" xsi:type=& quot;PQ" value="318" /> <referenceRange> <observationRange> <text>130-400</text> </observationRange> </referenceRange> </ observation> </component> <component> < observation moodCode="EVN" classCode="OBS"> < templateId root="2.16.840.1.497192.10.20.22.4.2" /> < id nullFlavor="NA" /> <code codeSystem="local&quot ; code="100.0950" displayName="MEAN PLATELET VOLUME" /> <statusCode code="completed" /> < effectiveTime value="417194349748" /> <value unit=&quot ;UM3" xsi:type="PQ" value="9.2" /> < interpretationCode codeSystem="local" code="*" /> <referenceRange> <observationRange> <text&gt ;9.4-12.4</text> </observationRange> </ referenceRange> </observation> </component> < component> <observation moodCode="EVN" classCode=" OBS"> <templateId root="2.16.840.1.618451.10.20.22.4.2& quot; /> <id nullFlavor="NA" /> <code codeSystem="local" code="100.1050" displayName=" NEUTROPHILS % (AUTO)" /> <statusCode code=" completed" /> <effectiveTime value="958766040103" /> <value unit="%" xsi:type="PQ" value="65.1" /> <referenceRange> < observationRange> <text>33-66</text> < /observationRange> </referenceRange> </observation& gt; </component> <component> <observation moodCode="EVN" classCode="OBS"> <templateId root="2.16.840.1.815620.10..22.4.2" /> <id nullFlavor ="NA" /> <code codeSystem="local" code="100.1100& quot; displayName="LYMPHOCYTES % (AUTO)" /> < statusCode code="completed" /> <effectiveTime value=& quot;920890715650" /> <value unit="%" xsi: type="PQ" value="21.7" /> < interpretationCode codeSystem="local" code="*" /> <referenceRange> <observationRange> <text> 23-45</text> </observationRange> </ referenceRange> </observation> </component> < component> <observation moodCode="EVN" classCode=" OBS"> <templateId root="2.16.840.1.194789.10.20.22.4.2& quot; /> <id nullFlavor="NA" /> < codecodeSystem="local" code="100.1150" displayName=" MONOCYTES % (AUTO)" /> <statusCode code=" completed" /> <effectiveTime value="759781198484" /> <value unit="%" xsi:type="PQ"value ="6.0" /> <referenceRange> < observationRange> <text>0-9.0</text> </ observationRange> </referenceRange> </observation&gt ; </component> <component> <observation moodCode ="EVN" classCode="OBS"> <templateId root=& quot;2.16.840.1.428688.10.20.22.4.2" /> <id nullFlavor=&quot ;NA" /> <code codeSystem="local" code=" 100.1200" displayName="EOSINOPHILS % (AUTO)" /> <statusCode code="completed" /> <effectiveTime value="601491067177" /> <value unit="%& quot; xsi:type="PQ" value="6.6" /> < interpretationCode codeSystem="local" code="*" /> <referenceRange> <observationRange> < text>0-4</text> </observationRange> </ referenceRange> </observation> </component> < component> <observation moodCode="EVN" classCode=" OBS"> <templateId root="2.16.840.1.848673.10.20.22.4.2& quot; /> <id nullFlavor="NA" /> <code codeSystem="local" code="100.1250" displayName=" BASOPHILS % (AUTO)" /> <statusCode code=" completed" /> <effectiveTime value="190309086821" /> <value unit="%" xsi:type="PQ" value="0.3" /> <referenceRange> < observationRange> <text>0-2</text> </ observationRange> </referenceRange> </observation> </component> <component> <observation moodCode=& quot;EVN" classCode="OBS"> <templateId root=" 2.16.840.1.529955.10.20.22.4.2" /> <id nullFlavor="NA& quot; /> <code codeSystem="local" code="100.1275& quot; displayName="IMMATURE GRANULOCYTE % (AUTO)" /> <statusCode code="completed" /> <effectiveTime value="130810139371" /> <value unit="%& quot; xsi:type="PQ"value="0.3" /> < referenceRange> <observationRange> <text>0.0- 0.5</text> </observationRange> </ referenceRange> </observation> </component> < component> <observation moodCode="EVN" classCode=" OBS"> <templateId root="2.16.840.1.960275.10.20.22.4.2& quot; /> <id nullFlavor="NA" /> <code codeSystem="local" code="100.1300" displayName=" NEUTROPHILS # (AUTO)" /> <statusCode code="completed& quot; /> <effectiveTime value="907563804504" /> <value unit="T/MM3" xsi:type="PQ" value="7.5& quot; /> <referenceRange> <observationRange> <text>1.8-7.7</text> </observationRange> </referenceRange> </observation> </component> <component> <observation moodCode="EVN" classCode= "OBS"> <templateId root=" 2.16.840.1.894104.10.20.22.4.2" /> <id nullFlavor="NA& quot; /> <code codeSystem="local" code="100.1350& quot; displayName="LYMPHOCYTES # (AUTO)" /> < statusCode code="completed" /> <effectiveTime value=& quot;799401827453" /> <value unit="T/MM3" xsi:type ="PQ" value="2.5" /> <referenceRange> <observationRange> <text>1-4.8</text> </observationRange> </referenceRange> </ observation> </component> <component> < observation moodCode="EVN" classCode="OBS"> < templateId root="2.16.840.1.167459.10.20.22.4.2" /> < id nullFlavor="NA" /> <code codeSystem="local&quot ; code="100.1400" displayName="MONOCYTES # (AUTO)" /> & lt;statusCode code="completed" /> <effectiveTime value= "268545321411" /> <value unit="T/MM3" xsi: type="PQ" value="0.7"/> <referenceRange> <observationRange> <text>0-0.8</text> </observationRange> </referenceRange> & lt;/observation> </component> <component> < observation moodCode="EVN" classCode="OBS"> < templateId root="2.16.840.1.293836.10.20.22.4.2" /> < id nullFlavor="NA" /> <code codeSystem="local&quot ; code="100.1450" displayName="EOSINOPHILS # (AUTO)" /> <statusCode code="completed" /> < effectiveTime value="591662433629" /> <value unit=&quot ;T/MM3" xsi:type="PQ" value="0.8" /> < interpretationCode codeSystem="local" code="*" /> <referenceRange> <observationRange> < text>0-0.5</text> </observationRange> </ referenceRange> </observation> </component> < component> <observation moodCode="EVN" classCode=" OBS"> <templateId root="2.16.840.1.575036.10.20.22.4.2& quot; /> <id nullFlavor="NA" /> <code codeSystem= "local" code="100.1500" displayName="BASOPHILS # (AUTO) " /> <statusCode code="completed" /> & lt;effectiveTime value="358171049256" /> <value unit=& quot;T/MM3" xsi:type="PQ" value="0.0" /> & lt;referenceRange> <observationRange> <text& gt;0-0.2</text> </observationRange> </ referenceRange> </observation> </component> < component> <observation moodCode="EVN" classCode=" OBS"> <templateId root="2.16.840.1.388812.10.20.22.4.2& quot; /> <id nullFlavor="NA" /> <code codeSystem="local" code="100.1525" displayName=" IMMATURE GRANULOCYTE # (AUTO)" /> <statusCode code=" completed" /> <effectiveTime value="248840501747" /> <valueunit="T/MM3" xsi:type="PQ" value=& quot;0.03" /> <referenceRange> < observationRange> <text>0.00-0.03</text> </ observationRange> </referenceRange> </observation&gt ; </component> </organizer> </entry> <entry> <organizer moodCode="EVN" classCode="BATTERY"> <templateId root="[id number]" /> < id nullFlavor="NA" /> <code codeSystem="local" code="LCMP" displayName="L200.0020" /> < statusCode code="completed" /> <component> < observation moodCode="EVN" classCode="OBS"> < templateId root="[id number]" /> < id nullFlavor="NA" /> <code codeSystem="local&quot ; code="300.0400" displayName="FUNGAL CULTURE." /> <statusCode code="completed" /> <effectiveTime value="[id number]" /> <value unit="MG/DL" xsi:type="PQ" value="1.0" /> <referenceRange& gt; <observationRange> <text>0.7-1.2</text& gt; </observationRange> </referenceRange> </observation> </component> <component> &lt ;observation moodCode="EVN" classCode="OBS"> &lt ;templateId root="2.16.840.1.655640.10.20.22.4.2" /> < id nullFlavor="NA" /> <code codeSystem="local&quot ; code="300.0450" displayName="FUNGAL CULTURE, BLOOD." /&gt ; <statusCode code="completed" /> < effectiveTime value="004039252872" /> <value unit=&quot ;RATIO" xsi:type="PQ" value="11" /> < referenceRange> <observationRange> <text>6-26&lt ;/text> </observationRange> </referenceRange&gt ; </observation> </component> <component> <observation moodCode="EVN" classCode="OBS"> &lt ;templateId root="2.16.840.1.186782.10.20.22.4.2" /> < id nullFlavor="NA" /> <code codeSystem="local&quot ; code="300.0100" displayName="NA - Sodium" /> & lt;statusCode code="completed" /> <effectiveTime value= "903306925363" /> <value unit="MEQ/L" xsi: type="PQ" value="139" /> <referenceRange> <observationRange> <text>134-144</text& gt; </observationRange> </referenceRange> </ observation> </component> <component> < observation moodCode="EVN" classCode="OBS"> < templateId root="2.16.840.1.885728.10.20.22.4.2" /> < id nullFlavor="NA" /> <code codeSystem="local&quot ; code="300.0150" displayName="Potassium" /> &lt ;statusCode code="completed" /> <effectiveTime value=& quot;468543100302" /> <value unit="MEQ/L" xsi:type ="PQ"value="4.1" /> <referenceRange> <observationRange> <text>3.6-5</text> </observationRange> </referenceRange> </ observation> </component> <component> < observation moodCode="EVN" classCode="OBS"> < templateId root="2.16.840.1.545537.10.20.22.4.2" /> < id nullFlavor="NA" /> <code codeSystem="local&quot ; code="300.0200" displayName="Chloride" /> < statusCode code="completed" /> <effectiveTime value=& quot;423560494680" /> <value unit="MEQ/L" xsi:type ="PQ" value="105" /> <referenceRange> <observationRange> <text>98-107</text> </observationRange> </referenceRange> < /observation> </component> <component> < observation moodCode="EVN" classCode="OBS"> < templateId root="2.16.840.1.871218.10.20.22.4.2" /> < id nullFlavor="NA" /> <code codeSystem="local&quot ; code="300.0250" displayName="CO2 - Carbon Dioxide" /> <statusCode code="completed" /> < effectiveTime value="995309377952" /> <value unit=&quot ;MEQ/L" xsi:type="PQ" value="26" /> < referenceRange> <observationRange> <text> 22-30</text> </observationRange> </ referenceRange> </observation> </component> < component> <observation moodCode="EVN" classCode=" OBS"> <templateId root="2.16.840.1.313706.10.20.22.4.2& quot; /> <id nullFlavor="NA" /> <code codeSystem="local" code="300.0300" displayName="Anion Gap" /> <statusCode code="completed" /> <effectiveTime value="374081838239" /> <value unit="MEQ/L" xsi:type="PQ" value="8" /> <referenceRange> <observationRange> < text>5-15</text></observationRange> </referenceRange& gt; </observation> </component> <component> <observation moodCode="EVN" classCode="OBS"> <templateId root="2.16.840.1.351792.10.20.22.4.2" /> <id nullFlavor="NA" /> <code codeSystem=&quot ;local" code="300.0350" displayName="BUN - Blood Urea Nitrogen" /> <statusCode code="completed" /> <effectiveTime value="152345595576" /> < value unit="MG/DL" xsi:type="PQ" value="11.0" /&gt ; <referenceRange> <observationRange> <text>7-17</text> </observationRange> </referenceRange> </observation> </component> <component> <observation moodCode="EVN" classCode=& quot;OBS"> <templateId root=" 2.16.840.1.769699.10.20.22.4.2" /> <idnullFlavor="NA& quot; /> <code codeSystem="local" code="300.0410& quot; displayName="Glomerular Filtration Rate" /> < statusCode code="completed" /> <effectiveTime value=& quot;234115159855" /> <value unit="" xsi:type=& quot;PQ" value="65" /> <referenceRange> <observationRange> <text>NRG</text> </observationRange> </referenceRange> </ observation> </component> <component> < observation moodCode="EVN" classCode="OBS"> < templateId root="2.16.840.1.461838.10.20.22.4.2" /> < id nullFlavor="NA" /> <code codeSystem="local&quot ; code="300.0500" displayName="Glucose" /> < statusCode code="completed" /> <effectiveTime value=& quot;330069987292" /> <value unit="MG/DL" xsi:type ="PQ" value="105" /> <referenceRange> <observationRange> <text>65-110</text> </observationRange> </referenceRange> </ observation> </component> <component> < observation moodCode="EVN" classCode="OBS"> < templateId root="2.16.840.1.422418.10.20.22.4.2" /> < id nullFlavor="NA" /> <code codeSystem="local&quot ; code="300.2000" displayName="Osmolality,Calculated" /> <statusCode code="completed" /> < effectiveTime value="357024296393" /> <value unit=&quot ;MOSM/KG" xsi:type="PQ" value="267" /> < referenceRange> <observationRange> <text> 261-280</text> </observationRange> </ referenceRange> </observation> </component> < component> <observation moodCode="EVN" classCode="OBS& quot;> <templateId root="2.16.840.1.716516.10.20.22.4.2&quot ; /> <id nullFlavor="NA" /> <code codeSystem="local" code="300.2200" displayName="Calcium " /> <statusCode code="completed" /> & lt;effectiveTime value="257458709749" /> <value unit=& quot;MG/DL" xsi:type="PQ" value="9.1" /> & lt;referenceRange> <observationRange> <text>8.4-10.2& lt;/text> </observationRange> </referenceRange& gt; </observation> </component> <component> <observation moodCode="EVN" classCode="OBS"> <templateId root="2.16.840.1.767862.10.20.22.4.2" /> <id nullFlavor="NA" /> <code codeSystem=&quot ;local" code="300.2700" displayName="Bilirubin,Total" / > <statusCode code="completed" /> < effectiveTime value="576581624055" /> <value unit=&quot ;MG/DL" xsi:type="PQ" value="0.60" /> < referenceRange> <observationRange> <text> 0.20-1.30</text> </observationRange> </ referenceRange> </observation> </component> < component> <observation moodCode="EVN" classCode=" OBS"> <templateId root="2.16.840.1.581799.10.20.22.4.2& quot; /> <id nullFlavor="NA" /> <code codeSystem="local" code="300.2975" displayName=" Alkaline Phosphatase" /> <statusCode code="completed" / > <effectiveTime value="839972431781" /> & lt;value unit="U/L" xsi:type="PQ" value="71"/> <referenceRange> <observationRange> <text>38-126</text> </observationRange> </referenceRange> </observation> </component> <component> <observation moodCode="EVN" classCode= "OBS"> <templateId root=" 2.16.840.1.021348.10.20.22.4.2" /> <id nullFlavor="NA& quot; /> <code codeSystem="local" code="300.3050& quot; displayName="AST - Aspartate Amino Transfer" /> < statusCode code="completed" /> <effectiveTime value=& quot;521278295030" /> <value unit="U/L" xsi:type=& quot;PQ" value="16"/> <referenceRange> <observationRange> <text>14-36</text> </observationRange> </referenceRange> </ observation> </component> <component> < observation moodCode="EVN" classCode="OBS"> < templateId root="2.16.840.1.782867.10.20.22.4.2" /> < id nullFlavor="NA" /> <code codeSystem="local&quot ; code="300.3100" displayName="ALT" /> < statusCode code="completed" /> <effectiveTime value=& quot;312199041893" /> <value unit="U/L" xsi:type=& quot;PQ" value="29" /> <referenceRange> <observationRange> <text>9-52</text> </observationRange> </referenceRange> </ observation> </component> <component> < observation moodCode="EVN" classCode="OBS"> < templateId root="2.16.840.1.075288.10.20.22.4.2" /> < id nullFlavor="NA" /> <code codeSystem="local&quot ; code="300.3110" displayName="TP - Total Protein" /> <statusCode code="completed" /> < effectiveTime value="648782065678" /> <value unit=&quot ;G/DL" xsi:type="PQ" value="7.1" /> < referenceRange> <observationRange> <text>6.3 -8.2</text> </observationRange> </ referenceRange> </observation> </component> < component> <observation moodCode="EVN" classCode=" OBS"> <templateId root="2.16.840.1.175846.10.20.22.4.2& quot; /> <id nullFlavor="NA" /> <code codeSystem="local" code="300.3120" displayName=" Albumin Level" /> <statusCode code="completed" /& gt; <effectiveTime value="368743842276" /> < value unit="G/DL" xsi:type="PQ" value="4.3" /> <referenceRange> <observationRange> <text>3.5-5.0</text> </observationRange> </referenceRange> </observation> </component> <component> <observation moodCode="EVN" classCode ="OBS"> <templateId root=" 2.16.840.1.239403.10.20.22.4.2" /> <id nullFlavor="NA& quot; /> <code codeSystem="local" code="300.3130& quot; displayName="Globulin" /> <statusCode code=" completed" /> <effectiveTime value="667055001321" /> <value unit="G/DL" xsi:type="PQ" value=& quot;2.8" /> <referenceRange> < observationRange> <text>2.4-3.6</text> & lt;/observationRange> </referenceRange> </ observation> </component> <component> < observation moodCode="EVN" classCode="OBS"> < templateId root="2.16.840.1.068307.10.20.22.4.2" /> < id nullFlavor="NA" /> <code codeSystem="local" code=& quot;300.3140" displayName="Albumin/Globulin Ratio" /> <statusCode code="completed" /> < effectiveTimevalue="408703476196" /> <value unit=" RATIO" xsi:type="PQ" value="1.5" /> < referenceRange> <observationRange> <text>1.1- 2.2</text> </observationRange> </ referenceRange> </observation> </component> < component> <observation moodCode="EVN" classCode=" OBS"> <templateId root="2.16.840.1.722210.10.20.22.4.2& quot; /> <id nullFlavor="NA" /> <code codeSystem="local" code="300.0095" displayName=" LICTERUS" /> <statusCode code="completed" /> <effectiveTime value="184816262499" /> <value unit="" xsi:type="PQ" value="<2" /> <referenceRange> <observationRange> & lt;text>0-7</text> </observationRange> </ referenceRange> </observation> </component> < component> <observation moodCode="EVN" classCode=" OBS"> <templateId root="2.16.840.1.678610.10.20.22.4.2& quot; /> <id nullFlavor="NA" /> <code codeSystem="local" code="300.0096" displayName=" LHEMOLYSIS" /> <statusCode code="completed" /> <effectiveTime value="412591184387" /> < value unit="" xsi:type="PQ" value="< 15" /& gt; <referenceRange> <observationRange> <text>0-25</text> </observationRange> & lt;/referenceRange> </observation> </component> <component> <observation moodCode="EVN" classCode=& quot;OBS"> <templateId root=" 2.16.840.1.545152.10.20.22.4.2" /> <id nullFlavor="NA& quot; /> <code codeSystem="local" code="300.0097& quot; displayName="LTURBIDITY" /> <statusCode code=& quot;completed" /> <effectiveTime value="411127598416& quot; /> <value unit="" xsi:type="PQ" value=& quot;< 20" /> <referenceRange> < observationRange> <text>0-20</text> </ observationRange> </referenceRange> </observation&gt ; </component> </organizer> </entry> <entry> <organizer moodCode="EVN" classCode="BATTERY"> <templateId root="2.16.840.1.765965.10.20.22.4.1" /> < id nullFlavor="NA" /> <code codeSystem="local" code="LMAG" displayName="L200.2000" /> < statusCode code="completed" /> <component> < observation moodCode="EVN" classCode="OBS"> < templateId root="2.16.840.1.387088.10.20.22.4.2" /> < id nullFlavor="NA" /> <code codeSystem="local&quot ; code="300.2350" displayName="MAG - Magnesium" /> <statusCode code="completed" /> <effectiveTime value="604862576647" /> <value unit="MG/DL" xsi:type="PQ" value="2.0" /> <referenceRange& gt; <observationRange> <text>1.6-2.3</text > </observationRange> </referenceRange> </observation> </component> </organizer> </ entry> <entry> <organizer moodCode="EVN" classCode=& quot;BATTERY"> <templateId root=" 2.16.840.1.870752.10.20.22.4.1" /> <id nullFlavor="NA&quot ; /> <code codeSystem="local" code="LLDH" displayName="L200.1855" /> <statusCode code="completed " /> <component> <observation moodCode="EVN& quot; classCode="OBS"> <templateId root=" 2.16.840.1.003453.10.20.22.4.2" /> <id nullFlavor="NA& quot; /> <code codeSystem="local" code="300.3250& quot;displayName="LDH - Lactate Dehydrogenase" /> < statusCode code="completed" /> <effectiveTime value=& quot;756107311323" /> <value unit="U/L" xsi:type=& quot;PQ" value="316" /> <referenceRange> <observationRange> <text>313-618</text> </observationRange> </referenceRange> </ observation> </component> </organizer> </entry> & lt;entry> <organizer moodCode="EVN" classCode="BATTERY& quot;> <templateId root="2.16.840.1.203232.10.20.22.4.1" /& gt; <id nullFlavor="NA" /> <code codeSystem=" local" code="LINR" displayName="L160.0105" /> & lt;statusCode code="completed" /> <component> &lt ;observation moodCode="EVN" classCode="OBS"> &lt ;templateId root="2.16.840.1.193317.10.20.22.4.2" /> < id nullFlavor="NA" /> <code codeSystem="local&quot ; code="150.0150"displayName="INR." /> < statusCode code="completed" /><effectiveTime value=" 361663571265" /> <value unit="" xsi:type="PQ& quot; value="0.94" /> <interpretationCode codeSystem=& quot;local" code="*" /> <referenceRange> <observationRange> <text>0.99-1.21</text> </observationRange> </referenceRange> </ observation> </component> </organizer> </entry> & lt;entry> <organizer moodCode="EVN" classCode="BATTERY& quot;> <templateId root="2.16.840.1.074670.10.20.22.4.1" /& gt; <id nullFlavor="NA" /> <code codeSystem=" local" code="LPTT" displayName="L160.0110" /> & lt;statusCode code="completed" /> <component> &lt ;observation moodCode="EVN" classCode="OBS"> &lt ;templateId root="2.16.840.1.027041.10.20.22.4.2" /> < id nullFlavor="NA" /> <code codeSystem="local&quot ; code="150.0200" displayName="PTT." /> < statusCode code="completed" /> <effectiveTime value=& quot;620548056617" /> <value unit="SEC" xsi:type=& quot;PQ" value="29.3" /> <referenceRange> <observationRange> <text>24-36</text> </observationRange> </referenceRange> </ observation> </component> </organizer> </entry> & lt;entry> <organizer moodCode="EVN" classCode="BATTERY& quot;> <templateId root="2.16.840.1.889418.10.20.22.4.1" /& gt; <id nullFlavor="NA" /> <code codeSystem=" local" code="LFIB" displayName="L160.0120" /> & lt;statusCode code="completed" /> <component> &lt ;observation moodCode="EVN" classCode="OBS"> &lt ;templateId root="2.16.840.1.434692.10.20.22.4.2" /> < id nullFlavor="NA" /> <code codeSystem="local&quot ; code="150.0550" displayName="FIBRINOGEN." /> & lt;statusCode code="completed" /> <effectiveTime value= "792998798850" /> <value unit="MG/DL" xsi:type ="PQ" value="385" /> <referenceRange> & lt;observationRange> <text>175-450</text> </observationRange> </referenceRange> </ observation> </component> </organizer> </entry> & lt;entry> <organizer moodCode="EVN" classCode="BATTERY& quot;> <templateId root="2.16.840.1.481941.10.20.22.4.1" /& gt; <id nullFlavor="NA" /> <code codeSystem=" local" code="LDD" displayName="L160.0135" /> & lt;statusCode code="completed" /> <component> &lt ;observation moodCode="EVN" classCode="OBS"> &lt ;templateId root="2.16.840.1.552994.10.20.22.4.2" /> < id nullFlavor="NA" /> <code codeSystem="local&quot ; code="150.0650" displayName="D-DIMER." /> < statusCode code="completed" /> <effectiveTime value=& quot;116848190628" /> <value unit="NG/ML" xsi:type ="PQ" value="< 150" /> <referenceRange > <observationRange> <text>0-230</text > </observationRange> </referenceRange> < /observation> </component> </organizer> </entry> <entry> <organizer moodCode="EVN" classCode="BATTERY& quot;> <templateId root="2.16.840.1.612081.10.20.22.4.1" /& gt; <id nullFlavor="NA" /> <code codeSystem=" local" code="LCBC" displayName="L100.0050" /> & lt;statusCode code="completed" /> <component> &lt ;observation moodCode="EVN" classCode="OBS"> &lt ;templateId root="2.16.840.1.868611.10.20.22.4.2" /> <id nullFlavor="NA" /> <code codeSystem="local" code="100.0150" displayName="WBC - WHITE BLOOD COUNT" /> <statusCode code="completed" /> < effectiveTime value="432549946709" /> <value unit=&quot ;T/MM3" xsi:type="PQ" value="11.8" /> < interpretationCode codeSystem="local" code="*" /> <referenceRange> <observationRange> <text >4.5-11.0</text> </observationRange> </ referenceRange> </observation> </component> < component> <observation moodCode="EVN" classCode=" OBS"> <templateId root="2.16.840.1.727949.10.20.22.4.2& quot; /> <id nullFlavor="NA" /> <code codeSystem="local" code="100.0250" displayName="RED BLOOD COUNT" /> <statusCode code="completed" /&gt ; <effectiveTime value="232525262301" /> < value unit="M/MM3" xsi:type="PQ" value="4.85" /&gt ; <referenceRange><observationRange> <text& gt;4.00-5.20</text> </observationRange> </ referenceRange> </observation> </component> < component> <observation moodCode="EVN" classCode=" OBS"> <templateId root="2.16.840.1.317881.10.20.22.4.2" /& gt; <id nullFlavor="NA" /> <code codeSystem ="local" code="100.0300" displayName="HGB - HEMOGLOBIN& quot; /> <statusCode code="completed" /> < effectiveTime value="283448996446" /> <value unit=&quot ;GM/DL" xsi:type="PQ" value="13.6" /> < referenceRange> <observationRange> <text> 12-16</text> </observationRange> </ referenceRange> </observation> </component> < component> <observation moodCode="EVN" classCode=" OBS"> <templateId root="2.16.840.1.355920.10..22.4.2& quot; /> <id nullFlavor="NA" /> <code codeSystem="local" code="100.0400" displayName="HCT - HEMATOCRIT" /> <statusCode code="completed" /> <effectiveTime value="381407810681" /> < value unit="%" xsi:type="PQ" value="40.4" /> <referenceRange> <observationRange> <text>36-46</text> </observationRange></ referenceRange> </observation> </component> < component> <observation moodCode="EVN" classCode="OBS& quot;> <templateId root="2.16.840.1.653330.10.20.22.4.2&quot ; /> <id nullFlavor="NA" /> <code codeSystem="local" code="100.0550" displayName="MEAN CORPUSCULAR VOLUME" /> <statusCode code="completed&quot ; /> <effectiveTime value="734818603307" /> <value unit="UM3" xsi:type="PQ" value="83.3" /> <referenceRange> <observationRange> <text>80-100</text> </observationRange> </referenceRange> </observation> </component& gt; <component><observation moodCode="EVN" classCode=& quot;OBS"> <templateId root=" 2.16.840.1.501110.10.20.22.4.2" /> <id nullFlavor="NA& quot; /> <code codeSystem="local" code="100.0600" displayName="MEAN CORPUSCULAR HGB" /> <statusCode code= "completed" /> <effectiveTime value="811582219127& quot; /> <value unit="UUG" xsi:type="PQ" value="28.0" /> <referenceRange> < observationRange> <text>26-34</text> </ observationRange> </referenceRange> </observation&gt ; </component> <component> <observation moodCode ="EVN" classCode="OBS"> <templateId root=& quot;2.16.840.1.696481.10.20.22.4.2" /> <id nullFlavor=&quot ;NA" /> <code codeSystem="local" code=" 100.0650" displayName="MEAN CORPUSCULAR HGB CONC(MCHC" /> <statusCode code="completed" /> < effectiveTime value="021520916704" /> <value unit=&quot ;GM/DL" xsi:type="PQ" value="33.7" /> < referenceRange> <observationRange> <text> 31-37</text> </observationRange> </ referenceRange> </observation> </component> < component> <observation moodCode="EVN" classCode=" OBS"> <templateId root="2.16.840.1.054834.10.20.22.4.2& quot; /> <id nullFlavor="NA" /> <code codeSystem="local" code="100.0750" displayName="RDW STANDARD DEVIATION" /> <statusCode code="completed&quot ; /> <effectiveTime value="847615854228" /> <value unit="FL" xsi:type="PQ" value="42.3" / > <referenceRange> <observationRange> &lt ;text>36.9-50.2</text> </observationRange> & lt;/referenceRange> </observation> </component> <component> <observation moodCode="EVN" classCode=& quot;OBS"> <templateId root=" 2.16.840.1.996809.10.20.22.4.2" /> <id nullFlavor="NA& quot; /> <code codeSystem="local" code="100.0850& quot; displayName="PLT - PLATELET COUNT" /> < statusCode code="completed" /> <effectiveTime value=& quot;433668215055" /> <value unit="T/MM3" xsi:type ="PQ" value="294" /> <referenceRange> <observationRange> <text>130-400</text> &lt ;/observationRange> </referenceRange> </observation& gt; </component> <component> < observationmoodCode="EVN" classCode="OBS"> < templateId root="2.16.840.1.710002.10.20.22.4.2" /> < id nullFlavor="NA" /> <code codeSystem="local&quot ; code="100.0950" displayName="MEAN PLATELET VOLUME" /> <statusCode code="completed" /> < effectiveTime value="127970444473" /> <value unit=&quot ;UM3" xsi:type="PQ" value="9.2" /> < interpretationCode codeSystem="local" code="*" /> & lt;referenceRange> <observationRange> <text& gt;9.4-12.4</text> </observationRange> </ referenceRange> </observation> </component> < component> <observation moodCode="EVN" classCode=" OBS"> <templateId root="2.16.840.1.784256.10.20.22.4.2& quot; /> <id nullFlavor="NA" /> <code codeSystem="local" code="100.1050" displayName=" NEUTROPHILS % (AUTO)" /> <statusCode code=" completed" /> <effectiveTime value="564831640014" /> <value unit="%" xsi:type="PQ" value="69.5"/> <interpretationCode codeSystem=" local" code="*" /><referenceRange> < observationRange> <text>33-66</text> < /observationRange> </referenceRange> </observation& gt; </component> <component> <observation moodCode ="EVN" classCode="OBS"> <templateId root=& quot;2.16.840.1.854305.10..22.4.2" /> <id nullFlavor=" NA" /> <code codeSystem="local" code=" 100.1100" displayName="LYMPHOCYTES % (AUTO)" /> <statusCode code="completed" /> <effectiveTime value="770758434178" /> <value unit="%" xsi:type="PQ" value="19.4" /> <interpretationCode codeSystem="local" code="*" /> < referenceRange> <observationRange> <text> 23-45</text> </observationRange> </referenceRange> </observation> </component> <component> <observation moodCode="EVN" classCode="OBS"> <templateId root="2.16.840.1.155494.10.20.22.4.2" /> <id nullFlavor="NA" /> <code codeSystem=" local" code="100.1150" displayName="MONOCYTES % ( AUTO)" /> <statusCode code="completed" /> <effectiveTime value="996405603383" /> <value unit="%" xsi:type="PQ" value="4.3" /> <referenceRange> <observationRange> <text>0-9.0</text> </observationRange> </ referenceRange> </observation> </component> < component> <observation moodCode="EVN" classCode=" OBS"> <templateId root="2.16.840.1.660151.10.20.22.4.2& quot; /> <id nullFlavor="NA" /> <code codeSystem= "local" code="100.1200" displayName="EOSINOPHILS &# 37; (AUTO)" /> <statusCode code="completed" /> <effectiveTime value="021811236432" /> < value unit="%" xsi:type="PQ" value="6.2" / > <interpretationCode codeSystem="local" code="*& quot; /> <referenceRange> <observationRange> <text>0-4</text> </observationRange> </referenceRange> </observation> </ component> <component> <observation moodCode="EVN& quot; classCode="OBS"> <templateId root=" 2.16.840.1.541127.10.20.22.4.2" /> <id nullFlavor="NA& quot; /> <code codeSystem="local" code="100.1250& quot; displayName="BASOPHILS % (AUTO)" /> < statusCode code="completed" /> <effectiveTime value=& quot;050607190336" /> <value unit="%" xsi: type="PQ" value="0.3" /> <referenceRange> <observationRange> <text>0-2</text> </observationRange> </referenceRange> &lt ;/observation> </component> <component> < observation moodCode="EVN" classCode="OBS"> < templateId root="2.16.840.1.363304.10.20.22.4.2" /> < id nullFlavor="NA" /> <code codeSystem="local&quot ; code="100.1275" displayName="IMMATURE GRANULOCYTE % ( AUTO)" /> <statusCode code="completed" /> <effectiveTime value="508959455408" /> <value unit="%" xsi:type="PQ" value="0.3" /> <referenceRange> <observationRange> <text>0.0-0.5</text> </observationRange> < /referenceRange> </observation> </component> &lt ;component> <observation moodCode="EVN" classCode=" OBS"> <templateId root="2.16.840.1.347123.10.20.22.4.2& quot; /> <id nullFlavor="NA" /> <code codeSystem="local" code="100.1300" displayName=" NEUTROPHILS # (AUTO)" /> <statusCode code="completed& quot; /> <effectiveTime value="397004973229" /> <value unit="T/MM3" xsi:type="PQ" value="8.2& quot; /> <interpretationCode codeSystem="local" code=& quot;*" /> <referenceRange> <observationRange> <text>1.8-7.7</text> </observationRange& gt; </referenceRange> </observation> </ component> <component> <observation moodCode="EVN" classCode="OBS"> <templateId root=" [id number]" /> <id nullFlavor="NA& quot; /> <code codeSystem="local" code="100.1350& quot; displayName="LYMPHOCYTES # (AUTO)" /> < statusCode code="completed" /> <effectiveTime value=& quot;[id number]" /> <value unit="T/MM3" xsi:type ="PQ" value="2.3" /> <referenceRange> <observationRange> <text>1-4.8</text> </observationRange> </referenceRange> </ observation> </component> <component> < observation moodCode="EVN" classCode="OBS"> < templateId root="[id number]" /> < id nullFlavor="NA" /> <code codeSystem="local&quot ; code="100.1400" displayName="MONOCYTES # (AUTO)" /> <statusCode code="completed" /> < effectiveTime value="682339252945" /> <value unit=&quot ;T/MM3" xsi:type="PQ" value="0.5" /> < referenceRange> <observationRange> <text> 0-0.8</text> </observationRange> </referenceRange&gt ; </observation> </component> <component> <observation moodCode="EVN" classCode="OBS"> <templateId root="2.16.840.1.249247.10.20.22.4.2" /> <id nullFlavor="NA" /> <code codeSystem=" local" code="100.1450" displayName="EOSINOPHILS # (AUTO)& quot; /> <statusCode code="completed" /> & lt;effectiveTime value="504863997098" /> <value unit=& quot;T/MM3" xsi:type="PQ" value="0.7" /> & lt;interpretationCode codeSystem="local" code="*" /> <referenceRange> <observationRange> <text> 0-0.5</text> </observationRange> </ referenceRange> </observation> </component> < component> <observation moodCode="EVN" classCode=" OBS"> <templateId root="2.16.840.1.356727.10.20.22.4.2& quot; /> <id nullFlavor="NA" /> <code codeSystem="local" code="100.1500" displayName=" BASOPHILS # (AUTO)" /> <statusCode code="completed&quot ; /> <effectiveTime value="118514475619" /> <value unit="T/MM3" xsi:type="PQ" value="0.0&quot ; /> <referenceRange> <observationRange> <text>0-0.2</text> </observationRange> </referenceRange> </observation> </component> <component> <observation moodCode="EVN" classCode=& quot;OBS"> <templateId root=" 2.16.840.1.738783.10.20.22.4.2" /> <id nullFlavor="NA& quot; /> <code codeSystem="local" code="100.1525& quot; displayName="IMMATURE GRANULOCYTE # (AUTO)" /> < statusCode code="completed" /> <effectiveTime value=& quot;951050715295" /> <value unit="T/MM3" xsi:type ="PQ" value="0.04" /> <interpretationCode codeSystem="local" code="*" /> < referenceRange> <observationRange> <text> 0.00-0.03</text> </observationRange> </ referenceRange> </observation> </component> </ organizer> </entry> <entry> <organizer moodCode="EVN " classCode="BATTERY"> <templateId root=" 2.16.840.1.767158.10.20.22.4.1" /> <id nullFlavor="NA&quot ; /> <code codeSystem="local" code="LCMP" displayName="L200.0020" /> <statusCode code="completed " /> <component> <observation moodCode="EVN& quot; classCode="OBS"> <templateId root=" 2.16.840.1.428262.10..22.4.2" /> <id nullFlavor="NA& quot; /> <code codeSystem="local" code="300.0400& quot; displayName="FUNGAL CULTURE." /> <statusCode code ="completed" /> <effectiveTime value="498099569634 " /> <value unit="MG/DL" xsi:type="PQ" value="1.0" /> <referenceRange> < observationRange> <text>0.7-1.2</text> & lt;/observationRange> </referenceRange> </ observation> </component> <component> < observation moodCode="EVN" classCode="OBS"> < templateId root="2.16.840.1.043250.10..22.4.2" /> < id nullFlavor="NA" /> <code codeSystem="local&quot ; code="300.0450" displayName="FUNGAL CULTURE, BLOOD." /&gt ; <statusCodecode="completed" /> < effectiveTime value="873711410612" /> <value unit=" RATIO" xsi:type="PQ" value="12" /> < referenceRange> <observationRange> <text> 6-26</text> </observationRange> </referenceRange > </observation></component> <component> <observation moodCode="EVN" classCode="OBS"> <templateId root="2.16.840.1.833844.10.20.22.4.2" /> < id nullFlavor="NA" /> <code codeSystem="local&quot ; code="300.0100" displayName="NA - Sodium" /> & lt;statusCode code="completed" /> <effectiveTime value= "513877691893" /> <value unit="MEQ/L" xsi: type="PQ" value="140" /> <referenceRange> <observationRange> <text>134-144</text& gt; </observationRange> </referenceRange> </observation> </component> <component> &lt ;observation moodCode="EVN" classCode="OBS"> &lt ;templateId root="2.16.840.1.346654.10.20.22.4.2" /> < id nullFlavor="NA" /> <code codeSystem="local&quot ; code="300.0150" displayName="Potassium" /> &lt ;statusCode code="completed" /> <effectiveTime value=" 590013279033" /> <value unit="MEQ/L" xsi:type=& quot;PQ" value="3.8" /> <referenceRange> <observationRange> <text>3.6-5</text> </observationRange> </referenceRange> </ observation> </component> <component> < observation moodCode="EVN" classCode="OBS"> < templateId root="2.16.840.1.630501.10.20.22.4.2" /> < id nullFlavor="NA" /> <code codeSystem="local&quot ; code="300.0200" displayName="Chloride" /> < statusCode code="completed" /> <effectiveTime value=& quot;532996384827" /> <value unit="MEQ/L" xsi:type ="PQ" value="104" /> <referenceRange> <observationRange> <text>98-107</text> </observationRange> </referenceRange> < /observation> </component> <component> < observation moodCode="EVN" classCode="OBS"> < templateId root="2.16.840.1.525757.10.20.22.4.2" /> < id nullFlavor="NA" /><code codeSystem="local" code=& quot;300.0250" displayName="CO2 - Carbon Dioxide" /> <statusCode code="completed" /> <effectiveTime value ="999627961867" /> <value unit="MEQ/L" xsi: type="PQ" value="24" /> <referenceRange> <observationRange> <text>22-30</text> </observationRange> </referenceRange> </ observation> </component> <component> < observation moodCode="EVN" classCode="OBS"> < templateId root="2.16.840.1.914367.10.20.22.4.2" /> < id nullFlavor="NA" /> <codecodeSystem="local&quot ; code="300.0300" displayName="Anion Gap" /> < statusCode code="completed" /> <effectiveTime value=& quot;211594163181" /> <value unit="MEQ/L" xsi:type ="PQ" value="12"/> <referenceRange> <observationRange> <text>5-15</text> </observationRange> </referenceRange> </ observation> </component> <component> < observation moodCode="EVN" classCode="OBS"> < templateId root="2.16.840.1.094511.10.20.22.4.2" /> < id nullFlavor="NA" /> <code codeSystem="local&quot ; code="300.0350" displayName="BUN - Blood Urea Nitrogen" /& gt; <statusCode code="completed" /> < effectiveTime value="573328728484" /> <value unit=&quot ;MG/DL" xsi:type="PQ" value="12.0" /> < referenceRange> <observationRange> <text> 7-17</text> </observationRange> </ referenceRange> </observation> </component> < component> <observation moodCode="EVN" classCode=" OBS"> <templateId root="2.16.840.1.960756.10.20.22.4.2& quot; /> <id nullFlavor="NA" /> <code codeSystem="local" code="300.0410" displayName=" Glomerular Filtration Rate" /> <statusCode code=" completed" /> <effectiveTime value="469097462913" /> <value unit="" xsi:type="PQ" value=" 65" /> <referenceRange> <observationRange> <text>NRG</text> </observationRange> </referenceRange> </observation> </component&gt ; <component> <observation moodCode="EVN" classCode="OBS"> <templateId root=" 2.16.840.1.403342.10.20.22.4.2" /> <id nullFlavor="NA& quot; /> <code codeSystem="local" code="300.0500& quot; displayName="Glucose" /> <statusCode code=" completed" /> <effectiveTime value="351173752130" /> <value unit="MG/DL" xsi:type="PQ" value=& quot;139" /> <interpretationCode codeSystem="local&quot ; code="*" /> <referenceRange> < observationRange> <text>65-110</text> &lt ;/observationRange> </referenceRange> </observation& gt; </component> <component> <observation moodCode="EVN" classCode="OBS"> <templateId root="2.16.840.1.202032.10.20.22.4.2" /> <id nullFlavor ="NA" /> <code codeSystem="local" code=" 300.2000" displayName="Osmolality,Calculated" /> < statusCode code="completed" /> <effectiveTime value=" 655995523558" /> <value unit="MOSM/KG" xsi:type=& quot;PQ" value="271" /> <referenceRange> <observationRange> <text>261-280</text> </observationRange> </referenceRange> </ observation> </component> <component> < observation moodCode="EVN" classCode="OBS"> < templateId root="2.16.840.1.459928.10.20.22.4.2" /> < id nullFlavor="NA" /> <code codeSystem="local&quot ; code="300.2200" displayName="Calcium" /> < statusCode code="completed" /> <effectiveTime value=& quot;421595353464" /> <value unit="MG/DL" xsi:type ="PQ" value="9.6" /> <referenceRange> <observationRange> <text>8.4-10.2</text> </observationRange> </referenceRange> & lt;/observation> </component> <component> < observation moodCode="EVN" classCode="OBS"> < templateId root="2.16.840.1.759875.10..22.4.2" /> < id nullFlavor="NA" /> <code codeSystem="local" code=& quot;300.2700" displayName="Bilirubin,Total" /> < statusCode code="completed" /> <effectiveTime value=& quot;477102659865" /> <value unit="MG/DL" xsi:type ="PQ" value="0.40" /> <referenceRange> <observationRange> <text>0.20-1.30</text> </observationRange> </referenceRange> </ observation> </component> <component> < observation moodCode="EVN" classCode="OBS"> < templateId root="2.16.840.1.463926.10.20.22.4.2" /> < id nullFlavor="NA" /> <code codeSystem="local&quot ; code="300.2975" displayName="Alkaline Phosphatase" /> <statusCode code="completed" /> < effectiveTime value="337394081332" /> <value unit=&quot ;U/L" xsi:type="PQ" value="72" /> < referenceRange> <observationRange> <text> 38-126</text> </observationRange> </ referenceRange> </observation> </component> < component> <observation moodCode="EVN" classCode=" OBS"> <templateId root="2.16.840.1.890992.10.20.22.4.2& quot; /> <id nullFlavor="NA" /> <code codeSystem="local" code="300.3050" displayName="AST - Aspartate Amino Transfer" /> <statusCode code=" completed" /> <effectiveTime value="732317374524" /> <value unit="U/L" xsi:type="PQ" value=& quot;17" /> <referenceRange> < observationRange> <text>14-36</text> < /observationRange> </referenceRange> </observation> </component> <component> <observation moodCode= "EVN" classCode="OBS"> <templateId root=&quot ;2.16.840.1.250049.10.20.22.4.2" /> <id nullFlavor="NA& quot; /> <code codeSystem="local" code="300.3100& quot; displayName="ALT" /> <statusCode code=" completed" /> <effectiveTime value="000550137560" /> <value unit="U/L" xsi:type="PQ" value=&quot ;30" /> <referenceRange> <observationRange& gt; <text>9-52</text> </observationRange& gt; </referenceRange> </observation> </component > <component> <observation moodCode="EVN" classCode="OBS"> <templateId root=" 2.16.840.1.691822.10.20.22.4.2" /> <id nullFlavor="NA&quot ; /> <code codeSystem="local" code="300.3110&quot ; displayName="TP - Total Protein" /> <statusCode code= "completed" /> <effectiveTime value="551057366882& quot; /> <value unit="G/DL" xsi:type="PQ" value="7.1" /> <referenceRange> < observationRange> <text>6.3-8.2</text> </ observationRange> </referenceRange> </observation&gt ; </component> <component> <observation moodCode ="EVN" classCode="OBS"> <templateId root=& quot;2.16.840.1.214718.10.20.22.4.2" /> <id nullFlavor=&quot ;NA" /> <code codeSystem="local" code=" 300.3120" displayName="Albumin Level" /> < statusCode code="completed" /> <effectiveTime value=& quot;784243216343" /> <value unit="G/DL" xsi:type= "PQ" value="4.3" /> <referenceRange> <observationRange> <text>3.5-5.0</text> </observationRange> </referenceRange> </ observation> </component> <component> < observation moodCode="EVN" classCode="OBS"> < templateId root="2.16.840.1.663872.10.20.22.4.2" /> < id nullFlavor="NA" /> <code codeSystem="local&quot ; code="300.3130" displayName="Globulin" /> < statusCode code="completed" /> <effectiveTime value=& quot;274266077274" /> <value unit="G/DL" xsi:type= "PQ" value="2.8" /> <referenceRange> <observationRange> <text>2.4-3.6</text> </observationRange> </referenceRange> </ observation> </component> <component> < observation moodCode="EVN" classCode="OBS"> < templateId root="2.16.840.1.904980.10.20.22.4.2" /> < id nullFlavor="NA" /> <code codeSystem="local&quot ; code="300.3140" displayName="Albumin/Globulin Ratio" /&gt ; <statusCode code="completed" /> < effectiveTime value="309311258454" /> <value unit=&quot ;RATIO" xsi:type="PQ" value="1.5" /> < referenceRange> <observationRange> <text> 1.1-2.2</text> </observationRange></referenceRange&gt ; </observation> </component> <component> <observation moodCode="EVN" classCode="OBS"> <templateId root="2.16.840.1.149975.10.20.22.4.2" /> <id nullFlavor="NA" /> <code codeSystem="local " code="300.0095" displayName="LICTERUS" /> <statusCode code="completed" /> <effectiveTime value="279562594478" /> <value unit="" xsi: type="PQ" value="< 2" /> < referenceRange> <observationRange> <text>0-7</ text> </observationRange> </referenceRange> </observation> </component> <component> <observation moodCode="EVN" classCode="OBS"> <templateId root="2.16.840.1.897008.10.20.22.4.2" /> <id nullFlavor="NA" /> <code codeSystem=" local" code="300.0096" displayName="LHEMOLYSIS" /> <statusCode code="completed" /> <effectiveTime value ="720753931485" /> <value unit="" xsi:type=& quot;PQ" value="< 15" /> <referenceRange&gt ; <observationRange> <text>0-25</text&gt ; </observationRange> </referenceRange> & lt;/observation> </component> <component> < observation moodCode="EVN" classCode="OBS"> < templateId root="2.16.840.1.356560.10.20.22.4.2" /> < id nullFlavor="NA" /> <code codeSystem="local&quot ; code="300.0097" displayName="LTURBIDITY" /> & lt;statusCode code="completed" /> <effectiveTime value= "528498486204" /> <value unit="" xsi:type=" PQ" value="< 20" /> <referenceRange> <observationRange> <text>0-20</text> & lt;/observationRange> </referenceRange> </ observation> </component> </organizer> </entry> & lt;entry> <organizer moodCode="EVN" classCode="BATTERY& quot;> <templateId root="2.16.840.1.698470.10.20.22.4.1" /& gt; <id nullFlavor="NA" /> <code codeSystem=" local" code="LMAG" displayName="L200.2000" /> & lt;statusCode code="completed" /> <component> &lt ;observation moodCode="EVN" classCode="OBS"> &lt ;templateId root="2.16.840.1.843617.10.20.22.4.2" /> < id nullFlavor="NA" /> <code codeSystem="local&quot ; code="300.2350" displayName="MAG - Magnesium" /> <statusCode code="completed" /> <effectiveTime value="962199291729" /> <value unit="MG/DL" xsi:type="PQ" value="1.8" /> <referenceRange& gt; <observationRange> <text>1.6-2.3</ text> </observationRange> </referenceRange> & lt;/observation> </component> </organizer> </entry&gt ; <entry> <organizer moodCode="EVN" classCode=" BATTERY"> <templateId root="2.16.840.1.959762.10.20.22.4.1& quot; /> <id nullFlavor="NA" /> <code codeSystem ="local" code="LLDH" displayName="L200.1855" /&gt ; <statusCode code="completed" /> <component> <observation moodCode="EVN" classCode="OBS"> <templateId root="2.16.840.1.956591.10..22.4.2" /> < id nullFlavor="NA" /> <code codeSystem="local&quot ; code="300.3250" displayName="LDH - Lactate Dehydrogenase" /> <statusCode code="completed" /> < effectiveTime value="316563159783" /> <value unit=&quot ;U/L" xsi:type="PQ" value="329" /> < referenceRange> <observationRange> <text> 313618</text> </observationRange> </referenceRange& gt; </observation> </component> </organizer> & lt;/entry> <entry> <organizer moodCode="EVN" classCode ="BATTERY"> <templateId root=" 2.16.840.1.163594.10.20.22.4.1" /> <id nullFlavor="NA&quot ; /> <code codeSystem="local" code="LTSH" displayName="L200.3850" /> <statusCode code="completed " /> <component> <observation moodCode="EVN& quot; classCode="OBS"> <templateId root=" 2.16.840.1.924380.10.20.22.4.2" /> <id nullFlavor="NA" /&gt ; <code codeSystem="local" code="300.5500" displayName="TSH - Thyroid Stim Hormone" /> < statusCode code="completed" /> <effectiveTime value=& quot;174826875763" /> <value unit="MIU/L" xsi:type ="PQ" value="3.54" /> <interpretationCode codeSystem="local" code="" /> < referenceRange> <observationRange> <text> 0.47-4.68</text> </observationRange> </ referenceRange> </observation> </component> </ organizer> </entry> <entry> <organizer moodCode="EVN " classCode="BATTERY"> <templateId root=" 2.16.840.1.326440.10.20.22.4.1"/> <id nullFlavor="NA" /> <code codeSystem="local" code="LACTH-A" displayName="L750.0200" /> <statusCode code="completed " /> <component> <observation moodCode="EVN& quot; classCode="OBS"> <templateId root=" 2.16.840.1.456977.10.20.22.4.2" /> <id nullFlavor="NA& quot; /> <code codeSystem="local" code="902.0325& quot; displayName="LACTH-A" /> <statusCode code=" completed" /> <effectiveTime value="963851156284" / > <value unit="pg/mL" xsi:type="PQ" value=& quot;15" /> <referenceRange> < observationRange> <text>NRG</text> </ observationRange> </referenceRange> </observation&gt ; </component> </organizer> </entry> <entry> <organizer moodCode="EVN" classCode="BATTERY"> <templateId root="2.16.840.1.817099.10.20.22.4.1" /> < id nullFlavor="NA" /> <code codeSystem="local" code="LCORTR-A" displayName="L902.5645" /> < statusCode code="completed" /> <component> < observation moodCode="EVN" classCode="OBS"> < templateId root="2.16.840.1.118730.10.20.22.4.2" /> < id nullFlavor="NA" /> <code codeSystem="local&quot ; code="902.5645" displayName="Cortisol Random, Serum - AMS&quot ; /> <statusCode code="completed" /> < effectiveTime value="555152806059" /> <value unit=&quot ;ug/dL" xsi:type="PQ" value="6" /> < referenceRange> <observationRange> <text> 3-20</text> </observationRange> </ referenceRange> </observation> </component> </ organizer> </entry> <entry> <organizer moodCode="EVN " classCode="BATTERY"> <templateId root=" 2.16.840.1.438013.10.20.22.4.1" /> <idnullFlavor="NA" /> <code codeSystem="local" code="LT4F" displayName="L200.3600" /> <statusCode code="completed " /> <component> <observation moodCode="EVN& quot; classCode="OBS"> <templateId root=" 2.16.840.1.676339.10.20.22.4.2" /> <id nullFlavor="NA& quot; /> <code codeSystem="local" code="300.5250& quot; displayName="Free T4 (Free Thyroxine)-Batch" /> < statusCode code="completed" /> <effectiveTime value=& quot;064148634210" /> <value unit="NG/DL" xsi:type ="PQ" value="1.89" /> <referenceRange> & lt;observationRange> <text>0.78-2.19</text> </observationRange> </referenceRange> </ observation> </component> </organizer> </entry> & lt;entry> <organizer moodCode="EVN" classCode="BATTERY& quot;> <templateId root="2.16.840.1.164269.10.20.22.4.1" /& gt; <id nullFlavor="NA" /> <code codeSystem="local& quot; code="LCBC" displayName="L100.0050" /> < statusCode code="completed" /> <component> < observation moodCode="EVN" classCode="OBS"> < templateId root="2.16.840.1.279842.10.20.22.4.2" /> < id nullFlavor="NA" /> <code codeSystem="local&quot ; code="100.0150" displayName="WBC - WHITE BLOOD COUNT" /&gt ; <statusCode code="completed" /> < effectiveTime value="229891566684" /> <value unit=&quot ;T/MM3" xsi:type="PQ" value="11.0" /> < referenceRange> <observationRange> <text>4.5-11.0& lt;/text> </observationRange> </referenceRange& gt; </observation> </component><component> <observation moodCode="EVN" classCode="OBS"> < templateId root="2.16.840.1.599029.10.20.22.4.2" /> < id nullFlavor="NA" /> <code codeSystem="local&quot ; code="100.0250" displayName="RED BLOOD COUNT" /> <statusCode code="completed" /> <effectiveTime value=& quot;408934707957" /> <value unit="M/MM3" xsi:type ="PQ" value="4.95" /> <referenceRange> <observationRange> <text>4.00-5.20</text&gt ; </observationRange> </referenceRange> & lt;/observation> </component> <component> < observation moodCode="EVN" classCode="OBS"> < templateId root="2.16.840.1.422837.10.20.22.4.2" /> < id nullFlavor="NA" /> <code codeSystem="local&quot ; code="100.0300" displayName="HGB - HEMOGLOBIN" /> <statusCode code="completed" /> <effectiveTime value="922500061857" /> <value unit="GM/DL" xsi:type="PQ" value="13.6" /> <referenceRange > <observationRange> <text>12-16</text > </observationRange> </referenceRange> </ observation> </component> <component> < observation moodCode="EVN" classCode="OBS"> < templateIdroot="2.16.840.1.616938.10.20.22.4.2" /> <id nullFlavor="NA" /> <code codeSystem="local" code="100.0400" displayName="HCT - HEMATOCRIT" /> <statusCode code="completed" /> <effectiveTime value="673839275905" /> <value unit="%& quot; xsi:type="PQ" value="40.9" /> < referenceRange> <observationRange> <text> 36-46</text> </observationRange> </ referenceRange> </observation> </component> < component> <observation moodCode="EVN" classCode=" OBS"> <templateId root="2.16.840.1.925098.10.20.22.4.2& quot; /> <id nullFlavor="NA" /> <code codeSystem="local" code="100.0550" displayName="MEAN CORPUSCULAR VOLUME" /> <statusCode code="completed&quot ; /> <effectiveTime value="256783759031" /> <value unit="UM3" xsi:type="PQ" value="82.6" /> <referenceRange> <observationRange> <text>80-100</text> </observationRange> </referenceRange> </observation> </component&gt ; <component> <observation moodCode="EVN" classCode="OBS"> <templateId root=" 2.16.840.1.980673.10.20.22.4.2" /> <id nullFlavor="NA& quot; /> <code codeSystem="local" code="100.0600& quot; displayName="MEAN CORPUSCULAR HGB" /> < statusCode code="completed" /> <effectiveTime value=& quot;814566368502" /> <value unit="UUG" xsi:type=& quot;PQ" value="27.5" /> <referenceRange> <observationRange> <text>26-34</text> &lt ;/observationRange> </referenceRange> </observation& gt; </component> <component> <observation moodCode="EVN" classCode="OBS"> <templateId root="2.16.840.1.890260.10.20.22.4.2" /> <id nullFlavor ="NA" /> <code codeSystem="local" code=" 100.0650" displayName="MEAN CORPUSCULAR HGB CONC(MCHC" /> <statusCode code="completed" /> < effectiveTime value="592256531838" /> <value unit=&quot ;GM/DL" xsi:type="PQ" value="33.3" /> < referenceRange> <observationRange> <text>31-37& lt;/text> </observationRange> </referenceRange& gt; </observation> </component> <component> <observation moodCode="EVN" classCode="OBS"> <templateId root="2.16.840.1.749986.10.20.22.4.2" /> <id nullFlavor="NA" /> <code codeSystem=&quot ;local" code="100.0750" displayName="RDW STANDARD DEVIATION& quot; /> <statusCode code="completed" /> & lt;effectiveTime value="580882727050" /> <value unit=& quot;FL" xsi:type="PQ" value="40.9" /> < referenceRange> <observationRange> <text> 36.9-50.2</text> </observationRange> </ referenceRange> </observation> </component> < component> <observationmoodCode="EVN" classCode="OBS "> <templateId root="2.16.840.1.545843.10.20.22.4.2& quot; /> <id nullFlavor="NA" /> <code codeSystem="local" code="100.0850" displayName="PLT - PLATELET COUNT" /> <statusCode code="completed" /& gt; <effectiveTime value="346857746588" /> &lt ;value unit="T/MM3" xsi:type="PQ" value="327" /&gt ; <referenceRange> <observationRange> <text>130-400</text> </observationRange> </referenceRange> </observation> </component> <component> <observation moodCode="EVN" classCode=& quot;OBS"> <templateId root=" 2.16.840.1.596275.10.20.22.4.2" /> <id nullFlavor="NA& quot; /> <code codeSystem="local" code="100.0950& quot; displayName="MEAN PLATELET VOLUME" /> <statusCode code ="completed" /> <effectiveTime value="696137866405 " /> <value unit="UM3" xsi:type="PQ" value="9.3" /> <interpretationCode codeSystem=" local" code="*" /> <referenceRange> < observationRange> <text>9.4-12.4</text> & lt;/observationRange> </referenceRange> </ observation> </component> <component> < observation moodCode="EVN" classCode="OBS"> < templateId root="2.16.840.1.857430.10.20.22.4.2" /> < id nullFlavor="NA" /> <code codeSystem="local&quot ; code="100.1050" displayName="NEUTROPHILS % (AUTO)&quot ; /> <statusCode code="completed" /> < effectiveTime value="927368395494" /> <value unit=&quot ;%" xsi:type="PQ" value="65.9" /> & lt;referenceRange> <observationRange> <text& gt;33-66</text> </observationRange> </ referenceRange> </observation> </component> < component> <observation moodCode="EVN" classCode=" OBS"> <templateId root="2.16.840.1.036961.10.20.22.4.2& quot; /> <id nullFlavor="NA" /> <code codeSystem="local" code="100.1100" displayName=" LYMPHOCYTES % (AUTO)" /> <statusCode code=" completed" /> <effectiveTime value="[id number]" /> <value unit="%" xsi:type="PQ" value="21.6" /> <interpretationCode codeSystem=" local" code="*" /> <referenceRange> <observationRange> <text>23-45</text> </observationRange> </referenceRange> </ observation> </component> <component> < observation moodCode="EVN" classCode="OBS"> < templateId root="[id number]" /> <id nullFlavor="NA" /> <code codeSystem="local" code="100.1150" displayName="MONOCYTES % (AUTO)" /& gt; <statusCode code="completed" /> < effectiveTime value="[id number]" /> <value unit="& #37;" xsi:type="PQ" value="5.3" /> < referenceRange> <observationRange> <text> 0-9.0</text> </observationRange> </ referenceRange> </observation> </component> < component> <observation moodCode="EVN" classCode=" OBS"> <templateId root="2.16.840.1.731139.10.20.22.4.2& quot; /> <id nullFlavor="NA" /> <code codeSystem="local" code="100.1200" displayName=" EOSINOPHILS % (AUTO)" /> <statusCode code=" completed" /> <effectiveTime value="990325343130" /> <value unit="%" xsi:type="PQ" value= "6.5" /> <interpretationCode codeSystem="local" code="*" /> <referenceRange> < observationRange> <text>0-4</text> </ observationRange> </referenceRange> </observation&gt ; </component> <component> <observation moodCode ="EVN" classCode="OBS"> <templateId root=& quot;2.16.840.1.488315.10.20.22.4.2" /> <id nullFlavor=&quot ;NA" /> <code codeSystem="local" code=" 100.1250" displayName="BASOPHILS % (AUTO)" /> <statusCode code="completed" /> <effectiveTime value="008326326317" /> <value unit="%& quot; xsi:type="PQ" value="0.4" /> < referenceRange> <observationRange> <text> 0-2</text> </observationRange> </referenceRange> </observation> </component> <component> & lt;observation moodCode="EVN" classCode="OBS"> & lt;templateId root="2.16.840.1.140084.10.20.22.4.2" /> &lt ;id nullFlavor="NA" /> <code codeSystem="local& quot; code="100.1275" displayName="IMMATURE GRANULOCYTE &#37 ; (AUTO)" /> <statusCode code="completed" /> <effectiveTime value="942941934290" /> <value unit ="%" xsi:type="PQ" value="0.3" /> < referenceRange> <observationRange> <text> 0.0-0.5</text> </observationRange> </ referenceRange> </observation> </component> < component> <observation moodCode="EVN" classCode=" OBS"> <templateId root="2.16.840.1.783906.10.20.22.4.2& quot; /> <id nullFlavor="NA" /> <code codeSystem="local" code="100.1300" displayName=" NEUTROPHILS # (AUTO)" /> <statusCode code="completed& quot; /> <effectiveTime value="750505740391" /> &lt ;value unit="T/MM3" xsi:type="PQ" value="7.3" /&gt ; <referenceRange> <observationRange> <text>1.8-7.7</text> </observationRange> </referenceRange> </observation> </component> & lt;component> <observation moodCode="EVN" classCode=&quot ;OBS"> <templateId root="2.16.840.1.071384.10.20.22.4.2 " /> <id nullFlavor="NA" /> <code codeSystem="local" code="100.1350" displayName=" LYMPHOCYTES # (AUTO)" /> <statusCode code="completed& quot; /> <effectiveTime value="450285660831" /> <value unit="T/MM3" xsi:type="PQ" value="2.4& quot; /> <referenceRange> <observationRange> <text>1-4.8</text> </observationRange> </referenceRange> </observation> </component> <component> <observation moodCode="EVN" classCode= "OBS"> <templateId root=" 2.16.840.1.532393.10.20.22.4.2" /> <id nullFlavor="NA& quot; /> <code codeSystem="local" code="100.1400& quot; displayName="MONOCYTES # (AUTO)" /> <statusCode code="completed" /> <effectiveTime value=" 142908436645" /> <value unit="T/MM3" xsi:type=& quot;PQ" value="0.6" /> <referenceRange> <observationRange> <text>0-0.8</text> </observationRange> </referenceRange> </ observation> </component> <component> < observation moodCode="EVN" classCode="OBS"> < templateId root="2.16.840.1.098346.10.20.22.4.2" /> < id nullFlavor="NA" /> <code codeSystem="local&quot ; code="100.1450" displayName="EOSINOPHILS # (AUTO)" /> <statusCode code="completed"/> < effectiveTime value="864010496983" /> <value unit=&quot ;T/MM3" xsi:type="PQ" value="0.7" /> < interpretationCode codeSystem="local" code="*" /> <referenceRange> <observationRange> < text>0-0.5</text> </observationRange> </ referenceRange> </observation> </component> < component> <observation moodCode="EVN" classCode=" OBS"> <templateId root="2.16.840.1.777326.10.20.22.4.2& quot; /> <id nullFlavor="NA" /> <code codeSystem="local" code="100.1500" displayName=" BASOPHILS # (AUTO)" /> <statusCode code="completed&quot ; /> <effectiveTime value="379201327992" /> <value unit="T/MM3" xsi:type="PQ" value="0.0&quot ; /> <referenceRange> <observationRange> <text>0-0.2</text> </observationRange> </referenceRange> </observation> </component& gt; <component> <observation moodCode="EVN" classCode="OBS"> <templateId root=" 2.16.840.1.705394.10..22.4.2" /> <id nullFlavor="NA& quot; /> <code codeSystem="local" code="100.1525" displayName="IMMATURE GRANULOCYTE # (AUTO)" /> < statusCode code="completed" /> <effectiveTime value=& quot;303911798728" /> <value unit="T/MM3" xsi:type ="PQ" value="0.03" /> <referenceRange> <observationRange> <text>0.00-0.03</text&gt ; </observationRange></referenceRange> </ observation> </component> </organizer> </entry> & lt;entry> <organizer moodCode="EVN" classCode="BATTERY& quot;> <templateId root="2.16.840.1.121997.10.20.22.4.1" /& gt; <id nullFlavor="NA" /> <code codeSystem=" local" code="LCMP" displayName="L200.0020" /> & lt;statusCode code="completed" /> <component> < observation moodCode="EVN" classCode="OBS"> < templateIdroot="2.16.840.1.773110.10.20.22.4.2" /> <id nullFlavor="NA" /> <code codeSystem="local" code="300.0400" displayName="FUNGAL CULTURE." /> <statusCode code="completed" /> <effectiveTime value="085385078944" /> <value unit="MG/DL" xsi:type="PQ" value="1.0" /> <referenceRange& gt; <observationRange> <text>0.7-1.2</text& gt; </observationRange> </referenceRange> </observation> </component> <component> &lt ;observation moodCode="EVN" classCode="OBS"> &lt ;templateId root="2.16.840.1.869195.10.20.22.4.2" /> < id nullFlavor="NA" /> <code codeSystem="local&quot ; code="300.0450" displayName="FUNGAL CULTURE, BLOOD." /&gt ; <statusCode code="completed" /> < effectiveTime value="578398518908" /> <value unit=&quot ;RATIO" xsi:type="PQ"value="12" /> < referenceRange> <observationRange> <text>6-26&lt ;/text> </observationRange> </referenceRange&gt ; </observation> </component> <component> <observation moodCode="EVN" classCode="OBS"> <templateId root="2.16.840.1.849236.10.20.22.4.2" /> <id nullFlavor="NA" /> <codecodeSystem=" local" code="300.0100" displayName="NA - Sodium" /> <statusCode code="completed" /> <effectiveTime value="736592185229" /> <value unit="MEQ/L" xsi:type="PQ" value="142" /> <referenceRange& gt; <observationRange> <text>134-144</ text> </observationRange> </referenceRange> </observation> </component> <component> <observation moodCode="EVN" classCode="OBS"> <templateId root="2.16.840.1.765440.10.20.22.4.2" /> <id nullFlavor="NA" /> <code codeSystem=" local" code="300.0150" displayName="Potassium" /> <statusCode code="completed" /> < effectiveTime value="989485798423" /> <value unit=" MEQ/L" xsi:type="PQ" value="4.0" /> < referenceRange> <observationRange> <text> 3.6-5</text> </observationRange> </ referenceRange> </observation> </component> < component> <observation moodCode="EVN" classCode=" OBS"> <templateId root="2.16.840.1.697861.10.20.22.4.2& quot; /> <id nullFlavor="NA" /> <code codeSystem="local" code="300.0200" displayName=" Chloride" /> <statusCode code="completed" /> <effectiveTime value="184872761982" /> < value unit="MEQ/L" xsi:type="PQ" value="106" /&gt ; <referenceRange> <observationRange> <text>98-107</text> </observationRange> </referenceRange> </observation> </component> <component> <observation moodCode="EVN" classCode ="OBS"> <templateId root=" 2.16.840.1.092152.10.20.22.4.2" /> <id nullFlavor="NA& quot; /> <code codeSystem="local" code="300.0250& quot; displayName="CO2 - Carbon Dioxide" /> < statusCode code="completed" /> <effectiveTime value=& quot;309962812241" /> <value unit="MEQ/L" xsi:type ="PQ" value="25" /> <referenceRange> <observationRange> <text>22-30</text> </observationRange> </referenceRange> </ observation> </component> <component> < observation moodCode="EVN" classCode="OBS"> < templateId root="2.16.840.1.325118.10..22.4.2" /> < id nullFlavor="NA" /> <code codeSystem="local&quot ; code="300.0300" displayName="Anion Gap" /> &lt ;statusCode code="completed" /> <effectiveTime value=& quot;236414440197" /> <value unit="MEQ/L" xsi:type ="PQ" value="11" /> <referenceRange> <observationRange> <text>5-15</text> </observationRange></referenceRange> </observation& gt; </component> <component> <observation moodCode= "EVN" classCode="OBS"> <templateId root=&quot ;2.16.840.1.721919.10.20.22.4.2" /> <id nullFlavor="NA& quot; /> <code codeSystem="local" code="300.0350& quot; displayName="BUN - Blood Urea Nitrogen" /> < statusCode code="completed" /> <effectiveTime value=& quot;923452119826" /> <value unit="MG/DL" xsi:type ="PQ" value="12.0" /> <referenceRange> <observationRange> <text>7-17</text> </observationRange> </referenceRange> </ observation> </component> <component> <observation moodCode="EVN" classCode="OBS"> <templateId root="2.16.840.1.022033.10..22.4.2" /> <id nullFlavor ="NA" /> <code codeSystem="local" code=" 300.0410" displayName="Glomerular Filtration Rate" /> <statusCode code="completed" /> <effectiveTime value="478091918714" /> <value unit="" xsi: type="PQ" value="65" /> <referenceRange> <observationRange> <text>NRG</text> </observationRange> </referenceRange> </ observation> </component> <component> < observation moodCode="EVN" classCode="OBS"> < templateId root="2.16.840.1.858330.10.20.22.4.2" /> < id nullFlavor="NA" /> <code codeSystem="local&quot ; code="300.0500" displayName="Glucose" /> < statusCode code="completed" /> <effectiveTime value=& quot;703566391363" /> <value unit="MG/DL" xsi:type ="PQ" value="115" /> <interpretationCode codeSystem="local" code="*" /> <referenceRange> <observationRange> <text>65-110</text&gt ; </observationRange> </referenceRange> & lt;/observation> </component> <component> < observation moodCode="EVN" classCode="OBS"> < templateId root="2.16.840.1.543530.10.20.22.4.2" /> < id nullFlavor="NA" /> <code codeSystem="local&quot ; code="300.2000" displayName="Osmolality,Calculated" /> <statusCodecode="completed" /> < effectiveTime value="130804705216" /> <value unit="MOSM /KG" xsi:type="PQ" value="274" /><referenceRange& gt; <observationRange> <text>261-280</ text> </observationRange> </referenceRange> </observation> </component> <component> <observation moodCode="EVN" classCode="OBS"> <templateId root="2.16.840.1.919338.10.20.22.4.2" /> <id nullFlavor="NA" /> <code codeSystem=" local" code="300.2200" displayName="Calcium" /> <statusCode code="completed" /> < effectiveTime value="999709157878" /> <value unit=&quot ;MG/DL" xsi:type="PQ" value="9.6" /> < referenceRange> <observationRange> <text> 8.4-10.2</text> </observationRange> </ referenceRange> </observation> </component> < component> <observation moodCode="EVN" classCode=" OBS"> <templateId root="2.16.840.1.770790.10.20.22.4.2& quot; /> <idnullFlavor="NA" /> <code codeSystem="local" code="300.2700" displayName=" Bilirubin,Total" /> <statusCode code="completed"/& gt; <effectiveTime value="311495716908" /> &lt ;value unit="MG/DL" xsi:type="PQ" value="0.40" /& gt; <referenceRange> <observationRange> & lt;text>0.20-1.30</text> </observationRange> </referenceRange> </observation> </component> & lt;component> <observation moodCode="EVN" classCode=&quot ;OBS"> <templateId root="2.16.840.1.842297.10.20.22.4.2& quot; /> <id nullFlavor="NA" /> <code codeSystem="local" code="300.2975" displayName=" Alkaline Phosphatase" /> <statusCode code="completed& quot; /> <effectiveTime value="827944889841" /> <value unit="U/L" xsi:type="PQ" value="71&quot ; /> <referenceRange> <observationRange> <text>38-126</text> </observationRange> </referenceRange> </observation> </component > <component> <observation moodCode="EVN" classCode="OBS"> <templateId root=" 2.16.840.1.240105.10.20.22.4.2" /> <id nullFlavor="NA& quot; /> <code codeSystem="local" code="300.3050& quot; displayName="AST - Aspartate Amino Transfer" /> < statusCode code="completed" /> <effectiveTime value=& quot;424115929345" /> <value unit="U/L" xsi:type=& quot;PQ" value="16" /> <referenceRange> <observationRange> <text>14-36</text> </observationRange> </referenceRange> </ observation> </component> <component> < observation moodCode="EVN" classCode="OBS"> < templateId root="2.16.840.1.398106.10..22.4.2" /> < id nullFlavor="NA" /> <code codeSystem="local&quot ; code="300.3100" displayName="ALT" /> < statusCode code="completed" /> <effectiveTime value=& quot;895721523943" /> <value unit="U/L" xsi:type=& quot;PQ" value="33" /> <referenceRange> <observationRange> <text>9-52</text> & lt;/observationRange> </referenceRange> </ observation> </component> <component> < observation moodCode="EVN" classCode="OBS"> < templateId root="2.16.840.1.618280.10.20.22.4.2" /> < id nullFlavor="NA" /> <code codeSystem="local&quot ; code="300.3110" displayName="TP - Total Protein" /> <statusCode code="completed" /> < effectiveTime value="127479776794" /> <value unit=&quot ;G/DL" xsi:type="PQ" value="7.1" /> < referenceRange> <observationRange> <text> 6.3-8.2</text> </observationRange> </ referenceRange> </observation> </component> < component> <observation moodCode="EVN" classCode=" OBS"> <templateId root="2.16.840.1.940417.10.20.22.4.2& quot; /> <id nullFlavor="NA" /> <code codeSystem="local" code="300.3120" displayName=" Albumin Level" /><statusCode code="completed" /> <effectiveTime value="136985174964" /> <value unit="G/DL" xsi:type="PQ" value="4.1" /> <referenceRange> <observationRange> < text>3.5-5.0</text> </observationRange> </ referenceRange> </observation> </component> < component> <observation moodCode="EVN" classCode=" OBS"> <templateId root="2.16.840.1.667106.10.20.22.4.2& quot; /> <id nullFlavor="NA" /> <code codeSystem="local" code="300.3130" displayName=" Globulin" /> <statusCode code="completed" /> <effectiveTime value="289951015692" /> <value unit=& quot;G/DL" xsi:type="PQ" value="3.0" /> &lt ;referenceRange> <observationRange> <text&gt ;2.4-3.6</text> </observationRange> </ referenceRange> </observation> </component> < component> <observation moodCode="EVN" classCode=" OBS"> <templateId root="2.16.840.1.407016.10.20.22.4.2& quot; /> <id nullFlavor="NA" /> <code codeSystem="local" code="300.3140" displayName="Albumin /Globulin Ratio" /> <statusCode code="completed" / > <effectiveTime value="358238146382" /> & lt;value unit="RATIO" xsi:type="PQ" value="1.4" /& gt; <referenceRange> <observationRange> <text>1.1-2.2</text> </observationRange> &lt ;/referenceRange> </observation> </component> & lt;component> <observation moodCode="EVN" classCode=&quot ;OBS"> <templateId root="2.16.840.1.280823.10.20.22.4.2 " /><id nullFlavor="NA" /> <code codeSystem= "local" code="300.0095" displayName="LICTERUS" /& gt; <statusCode code="completed"/> < effectiveTime value="330473335358" /> <value unit=&quot ;" xsi:type="PQ" value="< 2" /> < referenceRange> <observationRange> <text>0-7& lt;/text> </observationRange> </referenceRange& gt; </observation> </component> <component> <observation moodCode="EVN" classCode="OBS"> <templateId root="2.16.840.1.301974.10.20.22.4.2" /> & lt;id nullFlavor="NA" /> <code codeSystem="local& quot; code="300.0096" displayName="LHEMOLYSIS" /> <statusCode code="completed" /> <effectiveTime value="474838321164" /> <value unit="" xsi: type="PQ" value="< 15" /> < referenceRange> <observationRange> <text> 0-25</text> </observationRange> </referenceRange&gt ; </observation> </component> <component> <observation moodCode="EVN" classCode="OBS"> <templateId root="2.16.840.1.980443.10..22.4.2" /> <id nullFlavor="NA" /> <code codeSystem=" local" code="300.0097" displayName="LTURBIDITY" /> <statusCode code="completed" /> < effectiveTime value="103774710910" /> <value unit=&quot ;" xsi:type="PQ" value="< 20" /> &lt ;referenceRange> <observationRange> <text>0 -20</text> </observationRange> </ referenceRange> </observation> </component> </ organizer> </entry> <entry> <organizer moodCode="EVN& quot; classCode="BATTERY"> <templateId root=" 2.16.840.1.597762.10.20.22.4.1" /> <id nullFlavor="NA&quot ; /> <code codeSystem="local" code="LPHOS" displayName="L200.0630" /> <statusCode code="completed " /> <component> <observation moodCode="EVN& quot; classCode="OBS"> <templateId root=" 2.16.840.1.863410.10..22.4.2" /> <id nullFlavor="NA& quot; /> <code codeSystem="local" code="300.2300& quot; displayName="Phosphorus" /> <statusCode code=& quot;completed" /> <effectiveTime value="187754178404& quot; /> <value unit="MG/DL" xsi:type="PQ" value="3.5" /> <referenceRange> < observationRange> <text>2.5-4.5</text> & lt;/observationRange> </referenceRange> </observation&gt ; </component> </organizer> </entry> <entry> <organizer moodCode="EVN" classCode="BATTERY"> <templateId root="2.16.840.1.622633.10.20.22.4.1" /> < id nullFlavor="NA" /> <code codeSystem="local" code="LMAG" displayName="L200.2000" /> <statusCode code="completed" /> <component> <observation moodCode="EVN" classCode="OBS"> <templateId root="2.16.840.1.167452.10.20.22.4.2" /> <id nullFlavor ="NA" /> <code codeSystem="local" code=" 300.2350" displayName="MAG - Magnesium" /> <statusCode code ="completed" /> <effectiveTime value="494224068412 " /> <value unit="MG/DL" xsi:type="PQ" value="1.9" /> <referenceRange> < observationRange> <text>1.6-2.3</text> & lt;/observationRange> </referenceRange> </ observation> </component> </organizer> </entry> & lt;entry> <organizer moodCode="EVN" classCode="BATTERY& quot;> <templateId root="2.16.840.1.439990.10.20.22.4.1" /& gt; <id nullFlavor="NA" /> <code codeSystem=" local" code="LLDH" displayName="L200.1855" /> & lt;statusCode code="completed" /> <component> &lt ;observation moodCode="EVN" classCode="OBS"> &lt ;templateId root="2.16.840.1.301679.10.20.22.4.2" /> < id nullFlavor="NA" /> <code codeSystem="local&quot ; code="300.3250" displayName="LDH - Lactate Dehydrogenase" /> <statusCode code="completed" /> < effectiveTime value="880652374377" /> <value unit=&quot ;U/L" xsi:type="PQ" value="321" /> < referenceRange> <observationRange> <text> 313618</text> </observationRange> </ referenceRange> </observation> </component> </ organizer> </entry> <entry> <organizer moodCode="EVN " classCode="BATTERY"> <templateId root=" 2.16.840.1.446848.10.20.22.4.1" /> <id nullFlavor="NA&quot ; /> <code codeSystem="local" code="LTSH" displayName="L200.3850" /> <statusCode code="completed " /> <component> <observation moodCode="EVN& quot; classCode="OBS"> <templateId root=" 2.16.840.1.513840.10.20.22.4.2" /> <id nullFlavor="NA& quot; /> <code codeSystem="local" code="300.5500& quot; displayName="TSH - Thyroid Stim Hormone" /> <statusCode code="completed" /> <effectiveTime value=" 340146757398" /> <value unit="MIU/L" xsi:type=& quot;PQ" value="1.14" /> <referenceRange> <observationRange> <text>0.47-4.68</text> </observationRange> </referenceRange> & lt;/observation> </component> </organizer> </entry&gt ; <entry> <organizer moodCode="EVN" classCode=" BATTERY"> <templateId root="2.16.840.1.825092.10.20.22.4.1& quot; /> <id nullFlavor="NA" /> <code codeSystem ="local" code="LACTH-A" displayName="L750.0200" /& gt; <statusCode code="completed" /> <component> <observation moodCode="EVN" classCode="OBS"> <templateId root="2.16.840.1.901370.10.20.22.4.2" /> <id nullFlavor="NA" /> <code codeSystem=& quot;local" code="902.0325" displayName="LACTH-A" /&gt ; <statusCode code="completed" /> < effectiveTime value="043378753980" /> <value unit=&quot ;pg/mL" xsi:type="PQ" value="8.7" /> < referenceRange> <observationRange> <text> NRG</text> </observationRange> </ referenceRange> </observation> </component> </ organizer> </entry> <entry> <organizer moodCode="EVN " classCode="BATTERY"> <templateId root=" 2.16.840.1.235443.10.20.22.4.1" /> <id nullFlavor="NA&quot ; /> <code codeSystem="local" code="LCORTR-A" displayName="L902.5645" /> <statusCode code="completed " /> <component> <observation moodCode="EVN& quot; classCode="OBS"> <templateId root=" 2.16.840.1.244288.10.20.22.4.2"/> <id nullFlavor="NA& quot; /> <code codeSystem="local"code="902.5645& quot; displayName="Cortisol Random, Serum - AMS" /> < statusCode code="completed" /> <effectiveTime value=& quot;978664812073" /> <value unit="ug/dL" xsi:type ="PQ" value="4" /> <referenceRange> & lt;observationRange> <text>3-20</text> & lt;/observationRange> </referenceRange> </ observation> </component> </organizer> </entry> & lt;entry> <organizer moodCode="EVN" classCode="BATTERY& quot;> <templateId root="2.16.840.1.141276.10.20.22.4.1" /& gt; <id nullFlavor="NA" /> <code codeSystem=" local" code="LT4F" displayName="L200.3600" /> & lt;statusCode code="completed" /> <component> &lt ;observation moodCode="EVN" classCode="OBS"> &lt ;templateId root="2.16.840.1.925579.10.20.22.4.2" /> < id nullFlavor="NA" /> <code codeSystem="local&quot ; code="300.5250" displayName="Free T4 (Free Thyroxine)-Batch& quot; /> <statusCode code="completed" /> & lt;effectiveTime value="080429076884" /> <value unit=& quot;NG/DL" xsi:type="PQ" value="1.93" /> < referenceRange> <observationRange> <text> 0.78-2.19</text> </observationRange> </ referenceRange> </observation> </component> </ organizer> </entry> <entry> <organizer moodCode="EVN " classCode="BATTERY"> <templateId root=" 2.16.840.1.598387.10.20.22.4.1" /> <id nullFlavor="NA&quot ; /> <code codeSystem="local" code="LCBC" displayName="L100.0050" /> <statusCode code="completed " /> <component> <observation moodCode="EVN& quot; classCode="OBS"> <templateId root=" 2.16.840.1.412265.10.20.22.4.2" /> <id nullFlavor="NA& quot; /> <code codeSystem="local" code="100.0150& quot; displayName="WBC - WHITE BLOOD COUNT" /> < statusCode code="completed" /> <effectiveTime value=& quot;233919974761" /> <value unit="T/MM3" xsi:type ="PQ" value="12.4" /> <interpretationCode codeSystem="local" code="*" /> < referenceRange> <observationRange> <text> 4.5-11.0</text> </observationRange> </ referenceRange> </observation></component> < component> <observation moodCode="EVN" classCode=" OBS"> <templateId root="2.16.840.1.718012.10..22.4.2& quot; /> <id nullFlavor="NA" /> <code codeSystem="local" code="100.0250" displayName="RED BLOOD COUNT" /> <statusCode code="completed" /&gt ; <effectiveTime value="089740294478" /> < valueunit="M/MM3" xsi:type="PQ" value="5.00" /&gt ; <referenceRange> <observationRange> <text>4.00-5.20</text> </observationRange> </ referenceRange> </observation> </component> < component> <observation moodCode="EVN" classCode=" OBS"> <templateId root="2.16.840.1.096526.10..22.4.2& quot; /> <id nullFlavor="NA" /> <code codeSystem="local" code="100.0300" displayName="HGB - HEMOGLOBIN" /> <statusCode code="completed" /> <effectiveTime value="271322882974" /> < value unit="GM/DL" xsi:type="PQ" value="13.7" /&gt ; <referenceRange> <observationRange> <text>12-16</text> </observationRange> </referenceRange> </observation> </component> <component> <observation moodCode="EVN" classCode=& quot;OBS"> <templateId root=" 2.16.840.1.983401.10.20.22.4.2" /> <id nullFlavor="NA& quot; /> <code codeSystem="local" code="100.0400& quot; displayName="HCT - HEMATOCRIT" /> <statusCode code="completed" /> <effectiveTime value=" 844914252166" /> <value unit="%" xsi:type= "PQ" value="41.6" /> <referenceRange> & lt;observationRange> <text>36-46</text> & lt;/observationRange> </referenceRange> </ observation> </component> <component> < observation moodCode="EVN" classCode="OBS"> < templateId root="2.16.840.1.388902.10.20.22.4.2" /> < id nullFlavor="NA" /> <code codeSystem="local&quot ; code="100.0550" displayName="MEAN CORPUSCULAR VOLUME" /&gt ; <statusCode code="completed" /> < effectiveTime value="[id number]" /> <value unit=&quot ;UM3" xsi:type="PQ" value="83.2" /> < referenceRange> <observationRange> <text> 80-100</text> </observationRange> </ referenceRange> </observation> </component> < component> <observation moodCode="EVN" classCode=" OBS"> <templateId root="[id number]& quot; /> <id nullFlavor="NA" /> <code codeSystem="local" code="100.0600" displayName="MEAN CORPUSCULAR HGB" /> <statusCode code="completed" / > <effectiveTime value="[id number]" /> <value unit="UUG" xsi:type="PQ" value="27.4" /> <referenceRange> <observationRange> < text>26-34</text> </observationRange> </ referenceRange> </observation> </component> < component> <observation moodCode="EVN" classCode=" OBS"> <templateId root="[id number]& quot; /> <id nullFlavor="NA" /> <code codeSystem="local" code="100.0650" displayName="MEAN CORPUSCULAR HGB CONC(MCHC" /> <statusCode code=" completed" /> <effectiveTime value="012839358670" /> <value unit="GM/DL" xsi:type="PQ" value=" 32.9" /> <referenceRange> <observationRange > <text>31-37</text> </ observationRange> </referenceRange> </observation> </component> <component> <observation moodCode=& quot;EVN" classCode="OBS"> <templateId root=" 2.16.840.1.595462.10.20.22.4.2" /> <id nullFlavor="NA& quot; /> <code codeSystem="local" code="100.0750& quot; displayName="RDW STANDARD DEVIATION" /> < statusCode code="completed" /> <effectiveTime value=& quot;560553766900" /> <value unit="FL" xsi:type=& quot;PQ" value="41.7" /> <referenceRange> <observationRange> <text>36.9-50.2</text> </observationRange> </referenceRange> </ observation> </component> <component> < observation moodCode="EVN" classCode="OBS"> < templateId root="2.16.840.1.082549.10.20.22.4.2" /> < id nullFlavor="NA" /> <code codeSystem="local&quot ; code="100.0850" displayName="PLT - PLATELET COUNT" /> <statusCode code="completed" /> < effectiveTime value="891066070583" /> <value unit=&quot ;T/MM3" xsi:type="PQ" value="318" /> < referenceRange> <observationRange> <text> 130-400</text> </observationRange> </ referenceRange> </observation> </component> < component> <observation moodCode="EVN" classCode="OBS&quot ;> <templateId root="2.16.840.1.805673.10.20.22.4.2" /& gt; <id nullFlavor="NA" /> <code codeSystem=& quot;local" code="100.0950" displayName="MEAN PLATELET VOLUME" /> <statusCode code="completed" /> <effectiveTime value="686519325981" /> <value unit="UM3" xsi:type="PQ" value="9.2" /> <interpretationCode codeSystem="local" code="*" /> <referenceRange> <observationRange> <text>9.4-12.4</text> </observationRange> </referenceRange> </observation> </component> <component> <observation moodCode="EVN" classCode= "OBS"> <templateId root=" 2.16.840.1.889517.10.20.22.4.2" /> <id nullFlavor="NA& quot; /> <code codeSystem="local" code="100.1050& quot; displayName="NEUTROPHILS % (AUTO)"/> < statusCode code="completed" /> <effectiveTime value=& quot;267740422158" /> <value unit="%" xsi: type="PQ" value="67.0" /> < interpretationCode codeSystem="local" code="*" /> <referenceRange> <observationRange> < text>33-66</text> </observationRange> </ referenceRange> </observation> </component> < component> <observation moodCode="EVN" classCode=" OBS"> <templateId root="2.16.840.1.523797.10.20.22.4.2& quot; /> <id nullFlavor="NA" /> <code codeSystem="local" code="100.1100" displayName=" LYMPHOCYTES % (AUTO)" /> <statusCode code="completed " /> <effectiveTime value="999907229877" /> <value unit="%" xsi:type="PQ" value=" 20.9" /> <interpretationCode codeSystem="local" code="*" /> <referenceRange> < observationRange> <text>23-45</text> < /observationRange> </referenceRange> </observation& gt; </component> <component> <observation moodCode="EVN" classCode="OBS"> <templateId root="2.16.840.1.113657.10.20.22.4.2" /> <id nullFlavor ="NA" /> <code codeSystem="local" code=" 100.1150" displayName="MONOCYTES % (AUTO)" /> <statusCode code="completed" /> <effectiveTime value="608556894912" /> <value unit="%& quot; xsi:type="PQ" value="5.7" /> < referenceRange> <observationRange> <text> 0-9.0</text> </observationRange> </ referenceRange> </observation> </component> < component> <observation moodCode="EVN" classCode=" OBS"> <templateId root="2.16.840.1.161108.10.20.22.4.2& quot; /> <id nullFlavor="NA" /> <code codeSystem="local" code="100.1200" displayName=" EOSINOPHILS % (AUTO)" /> <statusCode code=" completed" /> <effectiveTime value="199631922080" /> <value unit="%" xsi:type="PQ" value="5.8" /> <interpretationCode codeSystem=" local" code="*" /> <referenceRange> <observationRange> <text>0-4</text> < /observationRange> </referenceRange> </observation& gt; </component> <component> <observation moodCode=& quot;EVN" classCode="OBS"> <templateId root=" 2.16.840.1.190799.10.20.22.4.2" /> <id nullFlavor="NA&quot ; /> <code codeSystem="local" code="100.1250&quot ; displayName="BASOPHILS % (AUTO)" /> < statusCode code="completed" /> <effectiveTime value=& quot;973338121789" /> <value unit="%" xsi:type=& quot;PQ" value="0.3" /> <referenceRange> <observationRange> <text>0-2</text> </observationRange> </referenceRange> </ observation> </component> <component> < observation moodCode="EVN" classCode="OBS"> < templateId root="2.16.840.1.889491.10.20.22.4.2" /> <id nullFlavor="NA" /> <code codeSystem="local" code="100.1275" displayName="IMMATURE GRANULOCYTE % (AUTO )" /> <statusCode code="completed" /> <effectiveTime value="220728354445" /> <value unit=& quot;%" xsi:type="PQ" value="0.3" /> <referenceRange> <observationRange> < text>0.0-0.5</text> </observationRange> </ referenceRange> </observation> </component> < component> <observation moodCode="EVN" classCode=" OBS"> <templateId root="2.16.840.1.039381.10.20.22.4.2& quot; /> <id nullFlavor="NA" /> <code codeSystem="local" code="100.1300" displayName=" NEUTROPHILS # (AUTO)" /> <statusCode code="completed& quot; /> <effectiveTime value="278156276601" /> <value unit="T/MM3" xsi:type="PQ" value="8.3& quot; /> <interpretationCode codeSystem="local" code="*& quot; /> <referenceRange> <observationRange> <text>1.8-7.7</text> </observationRange> </referenceRange> </observation> </component&gt ; <component> <observation moodCode="EVN" classCode="OBS"> <templateId root=" 2.16.840.1.222675.10.20.22.4.2" /><id nullFlavor="NA" /&gt ; <code codeSystem="local" code="100.1350" displayName="LYMPHOCYTES # (AUTO)" /> <statusCode code= "completed" /> <effectiveTime value="535873911801& quot; /> <valueunit="T/MM3" xsi:type="PQ" value="2.6" /> <referenceRange> < observationRange> <text>1-4.8</text> < /observationRange> </referenceRange> </observation& gt; </component> <component> <observation moodCode="EVN" classCode="OBS"> <templateId root="2.16.840.1.626083.10.20.22.4.2" /> <id nullFlavor ="NA" /> <code codeSystem="local" code=" 100.1400" displayName="MONOCYTES # (AUTO)" /> < statusCode code="completed" /> <effectiveTime value=& quot;838266193104" /> <value unit="T/MM3" xsi:type ="PQ" value="0.7" /> <referenceRange> <observationRange> <text>0-0.8</text> </observationRange> </referenceRange> </ observation> </component> <component> < observation moodCode="EVN" classCode="OBS"> < templateId root="2.16.840.1.456089.10.20.22.4.2" /> < id nullFlavor="NA" /> <code codeSystem="local&quot ; code="100.1450" displayName="EOSINOPHILS # (AUTO)" /> <statusCode code="completed" /> < effectiveTime value="936342540471" /> <value unit=&quot ;T/MM3" xsi:type="PQ" value="0.7" /> < interpretationCode codeSystem="local" code="*" /> <referenceRange> <observationRange> < text>0-0.5</text> </observationRange> </ referenceRange> </observation> </component> < component> <observation moodCode="EVN" classCode="OBS& quot;> <templateId root="2.16.840.1.612839.10.20.22.4.2&quot ; /> <id nullFlavor="NA" /> <code codeSystem="local" code="100.1500" displayName=" BASOPHILS #(AUTO)" /> <statusCode code="completed&quot ; /> <effectiveTime value="076872846428" /> <value unit="T/MM3" xsi:type="PQ" value="0.0&quot ; /> <referenceRange> <observationRange> <text>0-0.2</text> </observationRange> </referenceRange> </observation> </component&gt ; <component> <observation moodCode="EVN" classCode="OBS"> <templateId root=" 2.16.840.1.643279.10.20.22.4.2" /> <id nullFlavor="NA& quot; /> <code codeSystem="local" code="100.1525& quot; displayName="IMMATURE GRANULOCYTE # (AUTO)" /> < statusCode code="completed" /> <effectiveTime value=& quot;261944008115" /> <value unit="T/MM3" xsi:type ="PQ" value="0.04" /> <interpretationCode codeSystem="local" code="*" /> < referenceRange> <observationRange> <text> 0.00-0.03</text> </observationRange> </ referenceRange> </observation> </component> </ organizer> </entry> <entry> <organizer moodCode="EVN " classCode="BATTERY"> <templateId root=" 2.16.840.1.581404.10.20.22.4.1" /> <id nullFlavor="NA&quot ; /> <code codeSystem="local" code="LCMP" displayName="L200.0020" /> <statusCode code="completed " /> <component> <observation moodCode="EVN& quot; classCode="OBS"> <templateId root=" 2.16.840.1.933486.10.20.22.4.2" /> <id nullFlavor="NA& quot; /> <code codeSystem="local" code="300.0400& quot; displayName="FUNGAL CULTURE." /> <statusCode code=& quot;completed" /> <effectiveTime value="392365235927& quot; /> <value unit="MG/DL" xsi:type="PQ" value="1.0" /> <referenceRange> < observationRange> <text>0.7-1.2</text> & lt;/observationRange> </referenceRange></observation> </component> <component> <observation moodCode=& quot;EVN" classCode="OBS"> <templateId root=" 2.16.840.1.787423.10..22.4.2" /> <id nullFlavor="NA& quot; /> <code codeSystem="local" code="300.0450& quot; displayName="FUNGAL CULTURE, BLOOD." /> <statusCode code ="completed" /> <effectiveTime value="488000917760 " /> <value unit="RATIO" xsi:type="PQ" value="13"/> <referenceRange> < observationRange> <text>6-26</text> </ observationRange> </referenceRange> </observation&gt ; </component> <component> <observation moodCode ="EVN" classCode="OBS"> <templateId root=& quot;2.16.840.1.560695.10..22.4.2" /> <id nullFlavor=&quot ;NA" /> <code codeSystem="local" code=" 300.0100" displayName="NA - Sodium" /> < statusCode code="completed" /> <effectiveTime value=& quot;137530926077" /> <value unit="MEQ/L" xsi:type=&quot ;PQ" value="142" /> <referenceRange> <observationRange> <text>134-144</text> </observationRange> </referenceRange> </ observation> </component> <component> < observation moodCode="EVN" classCode="OBS"> < templateId root="2.16.840.1.028098.10.20.22.4.2" /> <id nullFlavor="NA" /> <code codeSystem="local" code="300.0150" displayName="Potassium" /> < statusCode code="completed" /> <effectiveTime value=& quot;965919252764" /> <value unit="MEQ/L" xsi:type ="PQ" value="4.2" /> <referenceRange> <observationRange> <text>3.6-5</text> </observationRange> </referenceRange> </ observation> </component> <component> < observation moodCode="EVN" classCode="OBS"> < templateId root="2.16.840.1.822067.10.20.22.4.2" /> < id nullFlavor="NA" /> <code codeSystem="local&quot ; code="300.0200"displayName="Chloride" /> < statusCode code="completed" /> <effectiveTime value=" 411434919005" /> <value unit="MEQ/L"xsi:type=&quot ;PQ" value="106" /> <referenceRange> <observationRange> <text>98-107</text> </observationRange> </referenceRange> </ observation> </component> <component> < observation moodCode="EVN" classCode="OBS"> < templateId root="2.16.840.1.214961.10.20.22.4.2" /> < id nullFlavor="NA" /> <code codeSystem="local&quot ; code="300.0250" displayName="CO2 - Carbon Dioxide" /> <statusCode code="completed" /> < effectiveTime value="398478725120" /> <value unit=&quot ;MEQ/L" xsi:type="PQ" value="25" /> < referenceRange> <observationRange> <text> 22-30</text> </observationRange></referenceRange> </observation> </component> <component> & lt;observation moodCode="EVN" classCode="OBS"> & lt;templateId root="2.16.840.1.377659.10.20.22.4.2" /> &lt ;id nullFlavor="NA" /> <code codeSystem="local&quot ; code="300.0300" displayName="Anion Gap" /> &lt ;statusCode code="completed" /> <effectiveTime value=& quot;509167008979" /> <value unit="MEQ/L" xsi:type ="PQ" value="11" /> <referenceRange> <observationRange> <text>5-15</text> < /observationRange> </referenceRange> </observation& gt; </component> <component> < observationmoodCode="EVN" classCode="OBS"> < templateId root="2.16.840.1.375126.10.20.22.4.2" /> < id nullFlavor="NA" /> <code codeSystem="local&quot ; code="300.0350" displayName="BUN - Blood Urea Nitrogen" /& gt; <statusCode code="completed" /> < effectiveTime value="361221748693" /> <value unit=&quot ;MG/DL" xsi:type="PQ" value="13.0" /> < referenceRange> <observationRange> <text>7-17</text > </observationRange> </referenceRange> </observation> </component> <component> &lt ;observation moodCode="EVN" classCode="OBS"> &lt ;templateId root="2.16.840.1.853278.10.20.22.4.2" /> < id nullFlavor="NA" /> <code codeSystem="local&quot ; code="300.0410" displayName="Glomerular Filtration Rate" / > <statusCode code="completed" /> < effectiveTime value="494883762822" /> <value unit=&quot ;" xsi:type="PQ" value="65" /> < referenceRange> <observationRange> <text> NRG</text> </observationRange> </ referenceRange> </observation> </component> < component> <observation moodCode="EVN" classCode=" OBS"> <templateId root="2.16.840.1.170353.10.20.22.4.2& quot; /> <id nullFlavor="NA" /> <code codeSystem="local" code="300.0500" displayName="Glucose " /> <statusCodecode="completed" /> & lt;effectiveTime value="869742544660" /> <value unit=" MG/DL" xsi:type="PQ" value="106" /> < referenceRange> <observationRange> <text> 65-110</text> </observationRange> </ referenceRange> </observation> </component> < component> <observation moodCode="EVN" classCode=" OBS"> <templateId root="2.16.840.1.528478.10.20.22.4.2& quot; /> <id nullFlavor="NA" /> <code codeSystem="local" code="300.2000" displayName=" Osmolality,Calculated" /> <statusCode code="completed& quot; /> <effectiveTime value="907479005301" /> <value unit="MOSM/KG" xsi:type="PQ" value="273 " /> <referenceRange> <observationRange&gt ; <text>261-280</text> </observationRange&gt ; </referenceRange> </observation></component&gt ; <component> <observation moodCode="EVN" classCode="OBS"> <templateId root=" 2.16.840.1.620302.10.20.22.4.2" /> <id nullFlavor="NA" /> <code codeSystem="local" code="300.2200" displayName="Calcium" /> <statusCode code=" completed" /> <effectiveTime value="287398859155" /> <value unit="MG/DL" xsi:type="PQ" value=& quot;9.2" /> <referenceRange> < observationRange> <text>8.4-10.2</text> & lt;/observationRange> </referenceRange> </ observation> </component> <component> < observation moodCode="EVN" classCode="OBS"> < templateId root="2.16.840.1.502743.10.20.22.4.2" /> < id nullFlavor="NA" /> <code codeSystem="local&quot ; code="300.2700" displayName="Bilirubin,Total" /> <statusCode code="completed" /> <effectiveTime value="310515579390" /> <value unit="MG/DL" xsi:type="PQ" value="0.40" /> <referenceRange ><observationRange> <text>0.20-1.30</text> </observationRange> </referenceRange> </ observation> </component> <component> < observation moodCode="EVN" classCode="OBS"> < templateId root="2.16.840.1.070681.10.20.22.4.2" /> < id nullFlavor="NA" /> <code codeSystem="local&quot ; code="300.2975" displayName="Alkaline Phosphatase" /> <statusCode code="completed" /> <effectiveTime value="618293199613" /> <value unit="U/L"xsi: type="PQ" value="70" /> <referenceRange> <observationRange> <text>38-126</text&gt ; </observationRange> </referenceRange> &lt ;/observation> </component> <component> < observation moodCode="EVN" classCode="OBS"> < templateId root="2.16.840.1.091506.10.20.22.4.2" /> < id nullFlavor="NA" /> <code codeSystem="local&quot ; code="300.3050" displayName="AST - Aspartate Amino Transfer& quot; /> <statusCode code="completed" /> < effectiveTime value="162913862193" /> <value unit=&quot ;U/L"xsi:type="PQ" value="16" /> < referenceRange> <observationRange> <text> 14-36</text> </observationRange> </ referenceRange> </observation> </component> < component> <observation moodCode="EVN" classCode=" OBS"> <templateId root="2.16.840.1.981848.10.20.22.4.2& quot; /> <id nullFlavor="NA" /> <code codeSystem="local" code="300.3100" displayName="ALT& quot; /> <statusCode code="completed" /> & lt;effectiveTime value="433930481156" /> <value unit=& quot;U/L" xsi:type="PQ" value="31" /> < referenceRange> <observationRange> <text>9-52</ text> </observationRange> </referenceRange> </observation> </component> <component> <observation moodCode="EVN" classCode="OBS"> <templateId root="2.16.840.1.125852.10.20.22.4.2" /> <id nullFlavor="NA" /> <code codeSystem=" local" code="300.3110" displayName="TP - Total Protein&quot ; /> <statusCode code="completed" /> < effectiveTime value="702408359706" /> <value unit=&quot ;G/DL" xsi:type="PQ" value="7.1" /> < referenceRange> <observationRange> <text> 6.3-8.2</text> </observationRange> </ referenceRange></observation> </component> < component> <observation moodCode="EVN" classCode=" OBS"> <templateId root="2.16.840.1.429245.10..22.4.2& quot; /> <id nullFlavor="NA" /> <code codeSystem="local" code="300.3120" displayName=" Albumin Level" /> <statusCode code="completed" /& gt; <effectiveTime value="576360996980" /> &lt ;value unit="G/DL" xsi:type="PQ" value="4.2" /&gt ; <referenceRange> <observationRange> & lt;text>3.5-5.0</text> </observationRange> & lt;/referenceRange> </observation> </component> <component> <observation moodCode="EVN" classCode=& quot;OBS"> <templateId root=" 2.16.840.1.400517.10.20.22.4.2" /> <id nullFlavor="NA& quot; /> <code codeSystem="local" code="300.3130& quot; displayName="Globulin" /> <statusCode code=" completed" /> <effectiveTime value="007567840985" /> <value unit="G/DL" xsi:type="PQ" value=& quot;2.9" /> <referenceRange> < observationRange> <text>2.4-3.6</text> </ observationRange> </referenceRange> </observation&gt ; </component> <component> <observation moodCode ="EVN" classCode="OBS"> <templateId root=& quot;2.16.840.1.881421.10.20.22.4.2" /> <id nullFlavor=&quot ;NA" /> <code codeSystem="local" code=" 300.3140" displayName="Albumin/Globulin Ratio" /> &lt ;statusCode code="completed" /> <effectiveTime value=& quot;171189268116" /> <valueunit="RATIO" xsi:type= "PQ" value="1.4" /> <referenceRange> <observationRange> <text>1.1-2.2</text> </observationRange> </referenceRange> < /observation> </component> <component> < observation moodCode="EVN" classCode="OBS"> < templateId root="2.16.840.1.624054.10.20.22.4.2" /> < id nullFlavor="NA" /> <code codeSystem="local&quot ; code="300.0095" displayName="LICTERUS" /> < statusCode code="completed" /> <effectiveTime value=& quot;426619707490" /> <value unit=""xsi:type=&quot ;PQ" value="< 2" /> <referenceRange> &lt ;observationRange> <text>0-7</text> </ observationRange> </referenceRange> </observation&gt ; </component> <component> <observation moodCode ="EVN" classCode="OBS"> <templateId root=& quot;2.16.840.1.846432.10.20.22.4.2" /> <id nullFlavor=&quot ;NA" /> <code codeSystem="local" code=" 300.0096" displayName="LHEMOLYSIS" /> <statusCode code="completed" /> <effectiveTime value=" 576929246712" /> <value unit="" xsi:type="PQ& quot; value="< 15" /> <referenceRange> <observationRange> <text>0-25</text> </observationRange> </referenceRange> </ observation> </component> <component> <observation moodCode="EVN" classCode="OBS"> <templateId root="2.16.840.1.058801.10.20.22.4.2" /> <id nullFlavor ="NA" /> <code codeSystem="local" code=" 300.0097" displayName="LTURBIDITY" /> <statusCode code="completed" /> <effectiveTime value=" 696944592197" /> <value unit="" xsi:type="PQ& quot; value="< 20" /> <referenceRange> <observationRange> <text>0-20</text> &lt ;/observationRange> </referenceRange> </observation& gt; </component> </organizer> </entry> <entry&gt ; <organizer moodCode="EVN" classCode="BATTERY"> <templateId root="2.16.840.1.170792.10.20.22.4.1" /> & lt;id nullFlavor="NA" /> <code codeSystem="local&quot ; code="LMAG" displayName="L200.2000" /> < statusCode code="completed" /> <component> < observation moodCode="EVN" classCode="OBS"> < templateId root="2.16.840.1.766462.10.20.22.4.2" /> < id nullFlavor="NA" /> <codecodeSystem="local&quot ; code="300.2350" displayName="MAG - Magnesium" /> <statusCode code="completed" /> <effectiveTime value="643539491153" /> <value unit="MG/DL" xsi:type="PQ" value="1.9" /> <referenceRange& gt; <observationRange> <text>1.6-2.3</ text> </observationRange> </referenceRange> </observation> </component> </organizer> </entry& gt; <entry> <organizer moodCode="EVN" classCode=" BATTERY"> <templateId root="2.16.840.1.667591.10.20.22.4.1& quot; /> <id nullFlavor="NA" /> <code codeSystem ="local" code="LLDH" displayName="L200.1855" /> <statusCode code="completed" /> <component> & lt;observation moodCode="EVN" classCode="OBS"> & lt;templateId root="2.16.840.1.678253.10.20.22.4.2" /> &lt ;id nullFlavor="NA" /> <code codeSystem="local& quot; code="300.3250" displayName="LDH - Lactate Dehydrogenase& quot; /> <statusCode code="completed" /> & lt;effectiveTime value="195177644854" /> <value unit=& quot;U/L" xsi:type="PQ" value="343" /> < referenceRange> <observationRange> <text> 313-828</text> </observationRange> </ referenceRange> </observation> </component> </ organizer> </entry> <entry> <organizer moodCode="EVN& quot; classCode="BATTERY"> <templateId root=" 2.16.840.1.971326.10.20.22.4.1" /> <id nullFlavor="NA&quot ; /> <code codeSystem="local" code="LCBC" displayName="L100.0050" /><statusCode code="completed&quot ; /> <component> <observation moodCode="EVN" classCode="OBS"> <templateId root=" 2.16.840.1.860693.10.20.22.4.2" /> <id nullFlavor="NA& quot; /> <code codeSystem="local" code="100.0150& quot; displayName="WBC - WHITE BLOOD COUNT" /> < statusCode code="completed" /> <effectiveTime value=& quot;399248319785" /> <value unit="T/MM3" xsi:type ="PQ" value="10.5" /> <referenceRange> <observationRange> <text>4.5-11.0</text&gt ; </observationRange> </referenceRange> </ observation> </component> <component> < observation moodCode="EVN" classCode="OBS"> < templateId root="2.16.840.1.854576.10.20.22.4.2" /> < id nullFlavor="NA" /> <code codeSystem="local&quot ; code="100.0250" displayName="RED BLOOD COUNT" /> <statusCode code="completed" /> <effectiveTime value="639207473829" /> <value unit="M/MM3" xsi:type="PQ" value="5.01" /> <referenceRange > <observationRange> <text>4.00-5.20</ text> </observationRange> </referenceRange> </observation> </component> <component> <observation moodCode="EVN" classCode="OBS"> <templateId root="2.16.840.1.596843.10.20.22.4.2" /> <id nullFlavor="NA" /> <code codeSystem=" local" code="100.0300" displayName="HGB - HEMOGLOBIN" / > <statusCode code="completed" /> < effectiveTime value="561155399768" /> <value unit=&quot ;GM/DL" xsi:type="PQ" value="14.1" /> < referenceRange> <observationRange> <text> 12-16</text> </observationRange> </ referenceRange> </observation> </component> < component> <observation moodCode="EVN" classCode=" OBS"> <templateId root="2.16.840.1.159758.10.20.22.4.2& quot; /> <id nullFlavor="NA" /> <code codeSystem="local" code="100.0400" displayName="HCT - HEMATOCRIT" /> <statusCode code="completed" /> <effectiveTime value="242011955089" /><value unit=& quot;%" xsi:type="PQ" value="41.4" /> <referenceRange> <observationRange> < text>36-46</text> </observationRange> </ referenceRange> </observation> </component> < component> <observation moodCode="EVN" classCode=" OBS"> <templateId root="2.16.840.1.462236.10.20.22.4.2& quot; /> <id nullFlavor="NA" /> <code codeSystem="local" code="100.0550" displayName="MEAN CORPUSCULAR VOLUME" /> <statusCode code="completed&quot ; /> <effectiveTime value="990845937265" />< value unit="UM3" xsi:type="PQ" value="82.6" /> <referenceRange> <observationRange> <text>80-100</text> </observationRange> </ referenceRange> </observation> </component> < component> <observation moodCode="EVN" classCode=" OBS"> <templateId root="2.16.840.1.582356.10.20.22.4.2& quot; /> <id nullFlavor="NA" /> <code codeSystem ="local" code="100.0600" displayName="MEAN CORPUSCULAR HGB" /> <statusCode code="completed" /> <effectiveTime value="605790134918" /> <value unit="UUG" xsi:type="PQ" value="28.1" /> <referenceRange> <observationRange> < text>26-34</text> </observationRange> </ referenceRange> </observation> </component> < component> <observation moodCode="EVN" classCode=" OBS"> <templateId root="[id number]& quot; /> <idnullFlavor="NA" /> <code codeSystem="local" code="100.0650" displayName="MEAN CORPUSCULAR HGB CONC(MCHC" /> <statusCode code=" completed" /> <effectiveTime value="[id number]" /> <value unit="GM/DL" xsi:type="PQ" value=& quot;34.1" /> <referenceRange> < observationRange> <text>31-37</text></ observationRange> </referenceRange> </observation&gt ; </component> <component> <observation moodCode ="EVN" classCode="OBS"> <templateId root=& quot;[id number]" /> <id nullFlavor=&quot ;NA" /> <code codeSystem="local" code=" 100.0750" displayName="RDW STANDARD DEVIATION" /> &lt ;statusCode code="completed" /> <effectiveTime value=& quot;808601072202" /> <value unit="FL" xsi:type=& quot;PQ" value="40.2" /> <referenceRange> <observationRange> <text>36.9-50.2</text> </observationRange> </referenceRange> & lt;/observation> </component> <component> < observation moodCode="EVN" classCode="OBS"> < templateId root="2.16.840.1.741248.10.20.22.4.2" /> < id nullFlavor="NA" /> <code codeSystem="local&quot ; code="100.0850" displayName="PLT - PLATELET COUNT" /> <statusCode code="completed" /> < effectiveTime value="573066851000" /> <value unit=&quot ;T/MM3" xsi:type="PQ" value="327" /> < referenceRange> <observationRange> <text>130 -400</text> </observationRange> </ referenceRange> </observation> </component> < component> <observation moodCode="EVN" classCode=" OBS"> <templateId root="2.16.840.1.343224.10.20.22.4.2& quot; /> <id nullFlavor="NA" /> <code codeSystem="local" code="100.0950" displayName="MEAN PLATELET VOLUME" /> <statusCode code="completed" / > <effectiveTime value="258208372257" /> & lt;value unit="UM3" xsi:type="PQ" value="9.2" /&gt ; <interpretationCode codeSystem="local" code="*&quot ; /> <referenceRange> <observationRange> <text>9.4-12.4</text> </observationRange&gt ; </referenceRange> </observation> </component> <component> <observation moodCode="EVN" classCode="OBS"> <templateId root=" 2.16.840.1.110732.10.20.22.4.2" /> <id nullFlavor="NA& quot; /> <code codeSystem="local" code="100.1050& quot; displayName="NEUTROPHILS % (AUTO)" /> < statusCode code="completed" /> <effectiveTime value=& quot;774748167071" /> <value unit="%" xsi: type="PQ" value="66.4" /> < interpretationCode codeSystem="local" code="*" /> <referenceRange> <observationRange> < text>33-66</text> </observationRange> </ referenceRange> </observation> </component> < component> <observation moodCode="EVN" classCode=" OBS"> <templateId root="2.16.840.1.900206.10.20.22.4.2& quot; /> <id nullFlavor="NA" /> <code codeSystem ="local" code="100.1100" displayName="LYMPHOCYTES & #37; (AUTO)" /> <statusCode code="completed" /&gt ; <effectiveTime value="843805137068" /> < value unit="%" xsi:type="PQ" value="22.7" /> <interpretationCode codeSystem="local" code="*& quot; /> <referenceRange> <observationRange> <text>23-45</text> </observationRange> </referenceRange> </observation> </component&gt ; <component> <observation moodCode="EVN" classCode="OBS"> <templateId root=" 2.16.840.1.153262.10.20.22.4.2" /> <id nullFlavor="NA& quot; /> <code codeSystem="local" code="100.1150& quot; displayName="MONOCYTES % (AUTO)" /> < statusCode code="completed" /> <effectiveTime value=& quot;244890361013" /> <value unit="%" xsi: type="PQ" value="5.7" /> <referenceRange> <observationRange> <text>0-9.0</text> </observationRange> </referenceRange> </ observation> </component> <component> < observation moodCode="EVN" classCode="OBS"> < templateId root="2.16.840.1.205808.10.20.22.4.2" /> < id nullFlavor="NA" /> <code codeSystem="local&quot ; code="100.1200" displayName="EOSINOPHILS % (AUTO)&quot ; /> <statusCode code="completed" /> < effectiveTime value="550990411696" /> <value unit=&quot ;%" xsi:type="PQ" value="4.7" /> & lt;interpretationCode codeSystem="local" code="*" /> <referenceRange> <observationRange> & lt;text>0-4</text> </observationRange> </ referenceRange> </observation> </component> < component> <observation moodCode="EVN" classCode=" OBS"> <templateId root="2.16.840.1.554385.10.20.22.4.2& quot; /> <id nullFlavor="NA" /> <code codeSystem="local" code="100.1250" displayName=" BASOPHILS % (AUTO)" /> <statusCode code=" completed" /> <effectiveTime value="579778509737" /> <value unit="%" xsi:type="PQ" value="0.3" /> <referenceRange> < observationRange> <text>0-2</text> </ observationRange> </referenceRange> </observation> </component> <component> <observation moodCode=& quot;EVN" classCode="OBS"> <templateId root=" 2.16.840.1.879402.10.20.22.4.2" /> <id nullFlavor="NA& quot; /> <code codeSystem="local" code="100.1275& quot; displayName="IMMATURE GRANULOCYTE % (AUTO)" /> <statusCode code="completed" /> <effectiveTime value="004976684332" /> <value unit="%& quot; xsi:type="PQ" value="0.2" /> < referenceRange> <observationRange> <text>0.0- 0.5</text> </observationRange> </ referenceRange> </observation> </component> < component> <observation moodCode="EVN" classCode=" OBS"> <templateId root="2.16.840.1.193206.10.20.22.4.2& quot; /> <id nullFlavor="NA" /> <code codeSystem="local" code="100.1300" displayName=" NEUTROPHILS # (AUTO)" /> <statusCode code="completed& quot; /> <effectiveTime value="776979033550" /> <value unit="T/MM3" xsi:type="PQ" value="7.0& quot; /> <referenceRange> <observationRange> <text>1.8-7.7</text> </observationRange> </referenceRange> </observation> </component> <component> <observation moodCode="EVN" classCode ="OBS"> <templateId root=" 2.16.840.1.993955.10.20.22.4.2" /> <id nullFlavor="NA& quot; /> <code codeSystem="local" code="100.1350& quot; displayName="LYMPHOCYTES # (AUTO)" /> < statusCode code="completed" /> <effectiveTime value=& quot;379822531568" /> <value unit="T/MM3" xsi:type ="PQ" value="2.4" /> <referenceRange> <observationRange> <text>1-4.8</text> </observationRange> </referenceRange> </ observation> </component> <component> < observation moodCode="EVN" classCode="OBS"> < templateId root="..840.1.800780.10.20.22.4.2" /> < id nullFlavor="NA" /> <code codeSystem="local&quot ; code="100.1400" displayName="MONOCYTES # (AUTO)" /> & lt;statusCode code="completed" /> <effectiveTime value= "820044869877" /> <value unit="T/MM3" xsi: type="PQ" value="0.6" /> <referenceRange> <observationRange> <text>0-0.8</text&gt ; </observationRange> </referenceRange> & lt;/observation> </component> <component> < observation moodCode="EVN" classCode="OBS"> < templateId root="2.840.1.562172.10.20.22.4.2" /> < id nullFlavor="NA" /> <code codeSystem="local&quot ; code="100.1450" displayName="EOSINOPHILS # (AUTO)" /> <statusCode code="completed" /> < effectiveTime value="392072932890"/> <value unit=" T/MM3" xsi:type="PQ" value="0.5" /> < referenceRange> <observationRange> <text> 0-0.5</text> </observationRange> </ referenceRange> </observation> </component> < component> <observation moodCode="EVN" classCode=" OBS"> <templateId root="2.16.840.1.241345.10.20.22.4.2& quot; /> <id nullFlavor="NA" /> <code codeSystem="local" code="100.1500" displayName=" BASOPHILS # (AUTO)" /> <statusCodecode="completed&quot ; /> <effectiveTime value="602484319791" /> < value unit="T/MM3" xsi:type="PQ" value="0.0" /&gt ; <referenceRange> <observationRange> <text>0-0.2</text> </observationRange> </referenceRange> </observation> </component> &lt ;component> <observation moodCode="EVN" classCode=" OBS"> <templateId root="2.16.840.1.934716.10.20.22.4.2& quot; /> <id nullFlavor="NA" /> <code codeSystem="local" code="100.1525" displayName=" IMMATURE GRANULOCYTE # (AUTO)" /> <statusCode code=" completed" /> <effectiveTime value="045370313507" /> <value unit="T/MM3" xsi:type="PQ" value=" 0.02" /><referenceRange> <observationRange> <text>0.00-0.03</text> </observationRange&gt ; </referenceRange> </observation> </ component> </organizer> </entry> <entry> < organizer moodCode="EVN" classCode="BATTERY"> < templateId root="2.16.840.1.287673...22.4.1" /> <id nullFlavor="NA" /> <code codeSystem="local" code= "LCMP" displayName="L200.0020" /> <statusCode code="completed" /> <component> <observation moodCode="EVN" classCode="OBS"> <templateId root="2.16.840.1.581420....4.2" /> <id nullFlavor ="NA" /> <code codeSystem="local" code=" 300.0400" displayName="FUNGAL CULTURE." /> < statusCode code="completed" /> <effectiveTime value=& quot;833906493894" /> <value unit="mg/dL" xsi:type ="PQ" value="1.0" /> <referenceRange> <observationRange> <text>0.7-1.2</text> </observationRange> </referenceRange> </ observation> </component> <component> < observation moodCode="EVN" classCode="OBS"> < templateId root="2.16.840.1.420940...22.4.2" /> <id nullFlavor="NA" /> <code codeSystem="local" code="300.0450" displayName="FUNGAL CULTURE, BLOOD." /> <statusCode code="completed" /> < effectiveTime value="022421324659" /> <value unit=&quot ;RATIO" xsi:type="PQ" value="14" /> < referenceRange> <observationRange> <text> 6-26</text> </observationRange> </ referenceRange> </observation> </component> < component> <observation moodCode="EVN" classCode=" OBS"> <templateId root="2.16.840.1.084861.10.20.22.4.2& quot; /> <id nullFlavor="NA" /> <code codeSystem="local" code="300.0100" displayName="NA - Sodium" /> <statusCode code="completed" /> <effectiveTime value="395514383916" /> <value unit="MEQ/L" xsi:type="PQ" value="144" /> <referenceRange> <observationRange> <text> 134-144</text> </observationRange> </ referenceRange> </observation> </component> < component> <observation moodCode="EVN" classCode=" OBS"> <templateId root="2.16.840.1.788142.10.20.22.4.2" / > <id nullFlavor="NA" /> <code codeSystem="local" code="300.0150" displayName=" Potassium" /> <statusCode code="completed" /> <effectiveTime value="238982923619" /> < value unit="MEQ/L" xsi:type="PQ" value="4.0" /&gt ; <referenceRange> <observationRange> <text>3.6-5</text> </observationRange></ referenceRange> </observation> </component> < component> <observation moodCode="EVN" classCode="OBS& quot;> <templateId root="2.16.840.1.150382.10.20.22.4.2&quot ; /> <id nullFlavor="NA" /> <code codeSystem="local" code="300.0200" displayName=" Chloride" /> <statusCode code="completed" /> <effectiveTime value="301338945164" /> < value unit="MEQ/L" xsi:type="PQ" value="106" /&gt ; <referenceRange> <observationRange> < text>98-107</text> </observationRange> </ referenceRange> </observation> </component> < component> <observation moodCode="EVN" classCode=" OBS"> <templateId root="2.16.840.1.431037.10.20.22.4.2& quot; /> <id nullFlavor="NA" /> <code codeSystem="local" code="300.0250" displayName="CO2 - Carbon Dioxide" /> <statusCode code="completed" /& gt; <effectiveTime value="131752666490" /> &lt ;value unit="MEQ/L" xsi:type="PQ" value="24" /&gt ; <referenceRange> <observationRange> <text>22-30</text> </observationRange> </referenceRange> </observation> </component> & lt;component> <observation moodCode="EVN" classCode=&quot ;OBS"> <templateId root="2.16.840.1.162283.10..22.4.2 " /> <id nullFlavor="NA" /> <code codeSystem="local" code="300.0300" displayName="Anion Gap" /> <statusCode code="completed" /> <effectiveTime value="226030342538" /> <value unit="MEQ/L" xsi:type="PQ" value="14" /> & lt;referenceRange> <observationRange> <text& gt;5-15</text> </observationRange> </ referenceRange> </observation> </component> < component> <observation moodCode="EVN" classCode=" OBS"> <templateId root="2.16.840.1.788558.10..22.4.2& quot; /> <id nullFlavor="NA" /> <code codeSystem="local" code="300.0350" displayName="BUN - Blood Urea Nitrogen" /> <statusCode code="completed& quot; /> <effectiveTime value="777077725617" /> <value unit="MG/DL" xsi:type="PQ" value="14.0& quot; /> <referenceRange> <observationRange> <text>7-17</text> </observationRange> </referenceRange> </observation> </component> <component> <observation moodCode="EVN" classCode= "OBS"> <templateId root=" 2.16.840.1.083707.10.20.22.4.2" /> <id nullFlavor="NA& quot; /> <code codeSystem="local" code="300.0410& quot; displayName="Glomerular Filtration Rate" /> < statusCode code="completed" /> <effectiveTime value=& quot;684467863356" /> <value unit="" xsi:type="PQ " value="65" /> <referenceRange> &lt ;observationRange> <text>NRG</text> </ observationRange> </referenceRange> </observation&gt ; </component> <component> <observation moodCode ="EVN" classCode="OBS"> <templateId root=& quot;2.16.840.1.029436.10.20.22.4.2" /><id nullFlavor="NA" /> <code codeSystem="local" code="300.0500" displayName="Glucose" /> <statusCode code=" completed" /> <effectiveTime value="170159820227" /> <value unit="MG/DL" xsi:type="PQ" value=& quot;103" /> <referenceRange> <observationRange&gt ; <text>65-110</text> </observationRange& gt; </referenceRange> </observation> </ component> <component> <observation moodCode="EVN& quot; classCode="OBS"> <templateId root=" 2.16.840.1.875207.10.20.22.4.2" /> <id nullFlavor="NA& quot; /> <code codeSystem="local" code="300.2000& quot; displayName="Osmolality,Calculated" /> < statusCode code="completed" /> <effectiveTime value=&quot ;059847880821" /> <value unit="MOSM/KG" xsi:type=& quot;PQ" value="278" /> <referenceRange>< observationRange> <text>261-280</text> & lt;/observationRange> </referenceRange> </ observation> </component> <component> < observation moodCode="EVN" classCode="OBS">< templateId root="2.16.840.1.752847.10.20.22.4.2" /> < id nullFlavor="NA" /> <code codeSystem="local&quot ; code="300.2200" displayName="Calcium" /> < statusCode code="completed" /> <effectiveTime value=& quot;332198894551" /> <value unit="MG/DL" xsi:type ="PQ" value="9.9" /> <referenceRange> <observationRange> <text>8.4-10.2</text> </observationRange> </referenceRange> & lt;/observation> </component> <component> < observation moodCode="EVN" classCode="OBS"> < templateId root="2.16.840.1.012876.10.20.22.4.2" /> < id nullFlavor="NA" /> <code codeSystem="local" code="300.9483" displayName="Bilirubin,Total" /> <statusCode code="completed" /> <effectiveTime value="837567008359" /> <value unit="MG/DL" xsi:type="PQ" value="0.60" /> <referenceRange > <observationRange> <text>0.20-1.30</text > </observationRange> </referenceRange> </observation> </component> <component> & lt;observation moodCode="EVN" classCode="OBS"> & lt;templateId root="2.16.840.1.741959.10.20.22.4.2" /> &lt ;id nullFlavor="NA" /> <code codeSystem="local& quot; code="300.3695" displayName="Alkaline Phosphatase" /& gt; <statusCode code="completed" /> < effectiveTime value="121350057876" /> <value unit=&quot ;U/L" xsi:type="PQ" value="73" /> < referenceRange> <observationRange> <text>38-126</ text> </observationRange> </referenceRange> </observation> </component> <component> <observation moodCode="EVN" classCode="OBS"> <templateId root="2.16.840.1.114142.10.20.22.4.2" /> <id nullFlavor="NA" /> <code codeSystem=" local" code="300.3050" displayName="AST - Aspartate Amino Transfer" /> <statusCode code="completed" /> <effectiveTime value="624837614118" /> < value unit="U/L" xsi:type="PQ" value="17" /> <referenceRange> <observationRange> <text&gt ;14-36</text> </observationRange> </ referenceRange> </observation> </component> < component> <observationmoodCode="EVN" classCode="OBS "> <templateId root="2.16.840.1.033907.10.20.22.4.2& quot; /> <id nullFlavor="NA" /> <code codeSystem="local" code="300.3110" displayName="TP - Total Protein" /> <statusCode code="completed" /&gt ; <effectiveTime value="484189581046" /> < value unit="g/dL" xsi:type="PQ" value="7.3" /> <referenceRange> <observationRange> <text>6.3-8.2</text> </observationRange> </referenceRange> </observation> </component> &lt ;component> <observation moodCode="EVN" classCode=" OBS"> <templateId root="2.16.840.1.761981.10.20.22.4.2& quot; /> <id nullFlavor="NA" /> <code codeSystem="local" code="300.3120" displayName=" Albumin Level" /> <statusCode code="completed" /& gt; <effectiveTime value="606945256005"/> < value unit="g/dL" xsi:type="PQ" value="4.3" /> <referenceRange> <observationRange> & lt;text>3.5-5.0</text> </observationRange> & lt;/referenceRange> </observation> </component> <component> <observation moodCode="EVN" classCode=& quot;OBS"> <templateId root=" 2.16.840.1.871922.10.20.22.4.2" /> <id nullFlavor="NA& quot; /> <code codeSystem="local" code="300.3130& quot; displayName="Globulin" /> <statusCode code=" completed" /> <effectiveTime value="101449711303" /> <value unit="G/DL" xsi:type="PQ" value=& quot;3.0" /> <referenceRange> < observationRange> <text>2.4-3.6</text> </ observationRange> </referenceRange> </observation&gt ; </component> <component> <observation moodCode ="EVN" classCode="OBS"> <templateId root=& quot;2.16.840.1.715934.10.20.22.4.2" /> <id nullFlavor=&quot ;NA" /> <code codeSystem="local" code=" 300.3140" displayName="Albumin/Globulin Ratio" /> &lt ;statusCode code="completed" /> <effectiveTime value=& quot;700697672984" /> <value unit="RATIO" xsi:type ="PQ" value="1.4" /> <referenceRange> <observationRange> <text>1.1-2.2</text> </observationRange> </referenceRange> &lt ;/observation> </component> <component> < observation moodCode="EVN" classCode="OBS"> < templateId root="2.16.840.1.826939.10.20.22.4.2" /> < id nullFlavor="NA" /> <code codeSystem="local&quot ; code="300.0095" displayName="LICTERUS" /> < statusCode code="completed" /> <effectiveTime value=& quot;915843567395" /> <value unit="" xsi:type=& quot;PQ" value="< 2" /> <referenceRange&gt ; <observationRange> <text>0-7</text> </observationRange> </referenceRange> </ observation> </component> <component> < observation moodCode="EVN" classCode="OBS"> < templateId root="2.16.840.1.860767.10.20.22.4.2" /> < id nullFlavor="NA" /> <code codeSystem="local&quot ; code="300.0096" displayName="LHEMOLYSIS" /> & lt;statusCode code="completed" /> <effectiveTime value= "513037839604" /> <value unit="" xsi:type=& quot;PQ" value="< 15" /> <referenceRange&gt ; <observationRange> <text>0-25</text&gt ; </observationRange> </referenceRange> & lt;/observation> </component> <component> < observation moodCode="EVN" classCode="OBS"> < templateId root="2.16.840.1.048799.10.20.22.4.2" /> < id nullFlavor="NA" /> <code codeSystem="local" code="300.0097" displayName="LTURBIDITY" /> < statusCode code="completed" /> <effectiveTime value=& quot;199696002571" /> <value unit="" xsi:type=& quot;PQ" value="< 20" /> <referenceRange&gt ; <observationRange> <text>0-20</text> </observationRange> </referenceRange> </ observation> </component> <component> < observation moodCode="EVN" classCode="OBS"> < templateId root="2.16.840.1.108989.10.20.22.4.2" /> < id nullFlavor="NA" /> <codecodeSystem="local&quot ; code="300.3105" displayName="LALTV" /> < statusCode code="completed" /> <effectiveTime value=& quot;512334574827" /> <value unit="U/L" xsi:type=& quot;PQ" value="23" /> <referenceRange> <observationRange> <text>1-35</text> </observationRange> </referenceRange> </ observation> </component> </organizer> </entry> & lt;entry> <organizermoodCode="EVN" classCode="BATTERY& quot;> <templateId root="2.16.840.1.397785.10.20.22.4.1" /& gt; <id nullFlavor="NA" /> <code codeSystem=" local" code="LPHOS" displayName="L200.0630" /> <statusCodecode="completed" /> <component> &lt ;observation moodCode="EVN" classCode="OBS"> &lt ;templateId root="2.16.840.1.993623.10.20.22.4.2" /> < id nullFlavor="NA" /> <code codeSystem="local&quot ; code="300.2300" displayName="Phosphorus" /> & lt;statusCode code="completed" /> <effectiveTime value= "672542264060" /> <value unit="MG/DL" xsi: type="PQ" value="3.8" /> <referenceRange> <observationRange> <text>2.5-4.5</text& gt; </observationRange> </referenceRange> < /observation> </component> </organizer> </entry> <entry> <organizer moodCode="EVN" classCode="BATTERY& quot;> <templateId root="2.16.840.1.796911.10.20.22.4.1" /& gt; <id nullFlavor="NA" /> <code codeSystem=" local" code="LMAG" displayName="L200.2000" /> & lt;statusCode code="completed" /> <component> &lt ;observation moodCode="EVN" classCode="OBS"> &lt ;templateId root="2.16.840.1.872437.10.20.22.4.2" /> <id nullFlavor="NA" /> <code codeSystem="local" code="300.2350" displayName="MAG - Magnesium" /> <statusCode code="completed" /> <effectiveTime value="115716715340" /> <value unit="MG/DL" xsi:type="PQ" value="1.8" /> <referenceRange& gt; <observationRange> <text>1.6-2.3</ text> </observationRange> </referenceRange> </observation> </component> </organizer> </ entry> <entry> <organizer moodCode="EVN" classCode=& quot;BATTERY"> <templateId root=" 2.16.840.1.180567.10.20.22.4.1" /> <id nullFlavor="NA&quot ; /> <code codeSystem="local" code="LLDH" displayName="L200.1855" /> <statusCode code="completed " /> <component> <observation moodCode="EVN& quot; classCode="OBS"> <templateId root=" 2.16.840.1.992013.10.20.22.4.2" /> <id nullFlavor="NA& quot; /> <code codeSystem="local" code="300.3250& quot; displayName="LDH - Lactate Dehydrogenase" /> < statusCode code="completed" /> <effectiveTime value=& quot;754745791356" /> <value unit="U/L" xsi:type=& quot;PQ" value="335" /> <referenceRange> <observationRange> <text>313618</text> </observationRange> </referenceRange> </ observation> </component> </organizer> </entry> & lt;entry> <organizer moodCode="EVN" classCode="BATTERY& quot;> <templateId root="2.16.840.1.237874.10.20.22.4.1" /& gt; <id nullFlavor="NA" /> <code codeSystem=" local" code="LTSH" displayName="L200.3850" /> & lt;statusCode code="completed" /> <component> &lt ;observation moodCode="EVN" classCode="OBS"> &lt ;templateId root="2.16.840.1.283668.10.20.22.4.2" /> < id nullFlavor="NA" /> <code codeSystem="local&quot ; code="300.5500" displayName="TSH - Thyroid Stim Hormone" / > <statusCode code="completed" /> < effectiveTime value="084752040964" /> <valueunit=" miu/L" xsi:type="PQ" value="1.51" /> < referenceRange> <observationRange> <text> 0.47-4.68</text> </observationRange> </referenceRange&gt ; </observation> </component> </organizer> &lt ;/entry> <entry> <organizer moodCode="EVN" classCode=& quot;BATTERY"> <templateId root=" 2.16.840.1.117522.10.20.22.4.1" /> <id nullFlavor="NA&quot ; /> <code codeSystem="local" code="LT4F" displayName="L200.3600" /> <statusCode code="completed " /> <component> <observation moodCode="EVN& quot; classCode="OBS"> <templateId root=" 2.16.840.1.843905.10.20.22.4.2" /> <id nullFlavor="NA& quot; /> <code codeSystem="local" code="300.5250& quot; displayName="Free T4 (Free Thyroxine)-Batch" /> < statusCode code="completed" /> <effectiveTime value=& quot;777523965715" /> <value unit="ng/dL" xsi:type ="PQ" value="2.44" /> <interpretationCode codeSystem="local" code="*" /> < referenceRange> <observationRange> <text> 0.78-2.19</text> </observationRange> </ referenceRange> </observation> </component> </ organizer> </entry> <entry> <organizer moodCode="EVN " classCode="BATTERY"> <templateId root=" 2.16.840.1.684032.10.20.22.4.1" /> <id nullFlavor="NA&quot ; /> <code codeSystem="local" code="LACTH-A" displayName="L750.0200" /> <statusCode code="completed " /> <component> <observation moodCode="EVN& quot; classCode="OBS"> <templateId root=" 2.16.840.1.808343.10.20.22.4.2" /> <id nullFlavor="NA& quot; /> <code codeSystem="local" code="902.0325& quot; displayName="LACTH-A" /> <statusCode code=" completed" /> <effectiveTime value="190172128515" /& gt; <value unit="pg/mL" xsi:type="PQ" value=& quot;13" /> <referenceRange> < observationRange> <text>NRG</text> </ observationRange> </referenceRange> </observation&gt ; </component> </organizer> </entry> <entry> <organizer moodCode="EVN" classCode="BATTERY"> <templateId root="2.16.840.1.462172.10.20.22.4.1" /> < id nullFlavor="NA" /> <code codeSystem="local" code="LCBC" displayName="L100.0050" /> < statusCode code="completed" /> <component> < observation moodCode="EVN" classCode="OBS"> < templateId root="2.16.840.1.927713.10.20.22.4.2" /> < id nullFlavor="NA" /> <code codeSystem="local&quot ; code="100.0150" displayName="WBC - WHITE BLOOD COUNT" /&gt ; <statusCode code="completed" /> <effectiveTime value="[id number]" /> <value unit="T/MM3" xsi:type="PQ" value="13.9" /> < interpretationCode codeSystem="local" code="*" /> <referenceRange> <observationRange> < text>4.5-11.0</text> </observationRange> < /referenceRange> </observation> </component> &lt ;component> <observation moodCode="EVN" classCode=" OBS"> <templateId root="[id number]& quot; /> <id nullFlavor="NA" /> <code codeSystem="local" code="100.0250" displayName="RED BLOOD COUNT" /> <statusCode code="completed" /&gt ; <effectiveTime value="[id number]" /> < value unit="M/MM3" xsi:type="PQ" value="5.00" /&gt ; <referenceRange> <observationRange> < text>4.00-5.20</text> </observationRange> &lt ;/referenceRange> </observation> </component> & lt;component> <observation moodCode="EVN" classCode=&quot ;OBS"> <templateId root="2.16.840.1.065839.10.20.22.4.2 " /> <id nullFlavor="NA" /> <code codeSystem="local" code="100.0300" displayName="HGB - HEMOGLOBIN" /> <statusCode code="completed" /> <effectiveTime value="475534185835" /> < value unit="GM/DL" xsi:type="PQ" value="13.7" /&gt ; <referenceRange> <observationRange> <text>12-16</text> </observationRange> </referenceRange> </observation> </component> <component> <observation moodCode="EVN" classCode=& quot;OBS"> <templateId root=" 2.16.840.1.300651.10.20.22.4.2" /> <id nullFlavor="NA& quot; /> <code codeSystem="local" code="100.0400& quot; displayName="HCT - HEMATOCRIT" /> <statusCode code=&quot ;completed" /> <effectiveTime value="248257877992&quot ; /> <value unit="%" xsi:type="PQ" value="41.2" /> <referenceRange> < observationRange> <text>36-46</text> < /observationRange> </referenceRange> </observation& gt; </component> <component> <observation moodCode="EVN" classCode="OBS"> <templateId root="2.16.840.1.744028.10.20.22.4.2" /> <id nullFlavor ="NA" /> <code codeSystem="local" code=" 100.0550" displayName="MEAN CORPUSCULAR VOLUME" /> < statusCode code="completed" /> <effectiveTime value=& quot;227185461161" /> <value unit="UM3" xsi:type=& quot;PQ" value="82.4"/> <referenceRange> <observationRange> <text>80-100</text> </observationRange> </referenceRange> </ observation> </component> <component> < observation moodCode="EVN" classCode="OBS"> < templateId root="2.16.840.1.600847.10.20.22.4.2" /> < id nullFlavor="NA" /> <code codeSystem="local&quot ; code="100.0600" displayName="MEAN CORPUSCULAR HGB" /> <statusCode code="completed" /> < effectiveTime value="965202872727"/> <value unit=" UUG" xsi:type="PQ" value="27.4" /> < referenceRange> <observationRange> <text> 26-34</text> </observationRange> </ referenceRange> </observation> </component> < component> <observation moodCode="EVN"classCode="OBS "> <templateId root="2.16.840.1.452510.10.20.22.4.2& quot; /> <id nullFlavor="NA" /> <code codeSystem="local" code="100.0650" displayName="MEAN CORPUSCULAR HGB CONC([facility]" /> <statusCode code=" completed" /> <effectiveTime value="187340703829" /> <value unit="GM/DL" xsi:type="PQ" value=& quot;33.3" /> <referenceRange> < observationRange> <text>31-37</text> < /observationRange> </referenceRange> </observation& gt; </component> <component> <observation moodCode="EVN" classCode="OBS"> <templateId root="2.16.840.1.036977.10.20.22.4.2" /> <id nullFlavor ="NA" /> <code codeSystem="local" code=" 100.0750" displayName="RDW STANDARD DEVIATION" /> &lt ;statusCode code="completed" /> <effectiveTime value=& quot;928495429892" /> <value unit="FL" xsi:type=& quot;PQ" value="40.8" /> <referenceRange> & lt;observationRange> <text>36.9-50.2</text> </observationRange> </referenceRange> </ observation> </component> <component> < observation moodCode="EVN" classCode="OBS"> < templateId root="2.16.840.1.336934.10.20.22.4.2"/> <id nullFlavor="NA" /> <code codeSystem="local" code="100.0850" displayName="PLT - PLATELET COUNT" /> <statusCodecode="completed" /> < effectiveTime value="586869774094" /> <value unit="T/ MM3" xsi:type="PQ" value="311" /> < referenceRange> <observationRange> <text> 130-400</text> </observationRange> </ referenceRange> </observation> </component> < component> <observation moodCode="EVN" classCode=" OBS"> <templateId root="2.16.840.1.610652.10.20.22.4.2& quot; /> <id nullFlavor="NA" /> <code codeSystem="local" code="100.0950" displayName="MEAN PLATELET VOLUME" /> <statusCode code="completed" / > <effectiveTime value="963813010657" /> & lt;value unit="UM3" xsi:type="PQ" value="9.2" /&gt ; <interpretationCode codeSystem="local" code="*&quot ; /> <referenceRange> <observationRange> <text>9.4-12.4</text> </observationRange> </referenceRange> </observation> </component& gt; </organizer> </entry> <entry> <organizer moodCode="EVN" classCode="BATTERY"> <templateId root="2.16.840.1.627215.10.20.22.4.1" /> <id nullFlavor=& quot;NA" /> <code codeSystem="local" code="LCMP& quot; displayName="L200.0020" /> <statusCode code=" completed" /> <component> <observation moodCode=& quot;EVN" classCode="OBS"> <templateId root=" 2.16.840.1.620176.10.20.22.4.2" /> <id nullFlavor="NA& quot; /> <code codeSystem="local" code="300.0400& quot; displayName="FUNGAL CULTURE." /> <statusCode code ="completed" /> <effectiveTime value="320025428691 " /> <value unit="mg/dL" xsi:type="PQ" value="0.9" /> <referenceRange><observationRange& gt; <text>0.7-1.2</text> </ observationRange> </referenceRange> </observation&gt ; </component> <component> <observation moodCode ="EVN" classCode="OBS"><templateId root=" 2.16.840.1.435681.10.20.22.4.2" /> <id nullFlavor="NA& quot; /> <code codeSystem="local" code="300.0450& quot; displayName="FUNGAL CULTURE, BLOOD." /> < statusCode code="completed" /> <effectiveTime value=" 241893549662" /> <value unit="RATIO" xsi:type=& quot;PQ" value="14" /> <referenceRange> <observationRange> <text>6-26</text> </observationRange> </referenceRange> </ observation> </component> <component> < observation moodCode="EVN" classCode="OBS"> < templateId root="2.16.840.1.248952.10.20.22.4.2" /> < id nullFlavor="NA" /> <code codeSystem="local&quot ; code="300.0100" displayName="NA - Sodium" /> & lt;statusCode code="completed" /> <effectiveTime value= "784137658204" /> <value unit="MEQ/L" xsi: type="PQ" value="142" /> <referenceRange> <observationRange> <text>134-144</text& gt; </observationRange> </referenceRange> </observation> </component> <component> &lt ;observation moodCode="EVN" classCode="OBS"> &lt ;templateId root="2.16.840.1.035573.10.20.22.4.2" /> < id nullFlavor="NA" /> <code codeSystem="local" code=& quot;300.0150" displayName="Potassium" /> < statusCode code="completed" /> <effectiveTime value=& quot;104025846267" /> <value unit="MEQ/L" xsi:type ="PQ" value="3.8" /> <referenceRange> <observationRange> <text>3.6-5</text> </observationRange> </referenceRange> </ observation> </component> <component> < observation moodCode="EVN" classCode="OBS"> < templateId root="2.16.840.1.256324.10.20.22.4.2" /> < id nullFlavor="NA" /> <code codeSystem="local&quot ; code="300.0200" displayName="Chloride" /> < statusCode code="completed" /> <effectiveTime value=& quot;408095250543" /> <value unit="MEQ/L" xsi:type ="PQ" value="107" /> <referenceRange> <observationRange> <text>98-107</text> </observationRange> </referenceRange> </ observation> </component> <component> < observation moodCode="EVN" classCode="OBS"> < templateId root="2.16.840.1.977285.10.20.22.4.2" /> < id nullFlavor="NA" /> <code codeSystem="local&quot ; code="300.0250" displayName="CO2 - Carbon Dioxide" /> <statusCode code="completed" /> < effectiveTime value="201623655254" /> <value unit=" MEQ/L" xsi:type="PQ" value="26" /> < referenceRange> <observationRange> <text> 22-30</text> </observationRange> </ referenceRange> </observation> </component> < component> <observation moodCode="EVN" classCode=" OBS"> <templateId root="2.16.840.1.726131.10..22.4.2& quot; /> <id nullFlavor="NA" /> <code codeSystem="local" code="300.0300" displayName="Anion Gap" /> <statusCode code="completed" /> <effectiveTime value="183551372936" /> <value unit="MEQ/L" xsi:type="PQ" value="9" /> <referenceRange> <observationRange> < text>5-15</text> </observationRange> </ referenceRange> </observation> </component> < component> <observation moodCode="EVN" classCode=" OBS"> <templateId root="2.16.840.1.319110.10.20.22.4.2& quot; /> <id nullFlavor="NA" /> <code codeSystem="local" code="300.0350" displayName="BUN - Blood Urea Nitrogen" /> <statusCode code="completed& quot; /> <effectiveTime value="993993133548" /> <value unit="MG/DL" xsi:type="PQ" value="13.0& quot; /> <referenceRange> <observationRange> <text>7-17</text> </observationRange> </referenceRange> </observation> </component& gt; <component> <observation moodCode="EVN" classCode ="OBS"> <templateId root=" 2.16.840.1.910191.10.20.22.4.2" /> <id nullFlavor="NA& quot; /> <code codeSystem="local" code="300.0410& quot; displayName="Glomerular Filtration Rate" /> < statusCode code="completed" /> <effectiveTime value=& quot;937608978073" /> <value unit="" xsi:type=& quot;PQ" value="73" /> <referenceRange>< observationRange> <text>NRG</text> </ observationRange> </referenceRange> </observation&gt ; </component> <component> <observation moodCode ="EVN" classCode="OBS"> <templateId root=& quot;2.16.840.1.204440.10.20.22.4.2" /> <id nullFlavor=&quot ;NA" /> <code codeSystem="local" code=" 300.0500" displayName="Glucose" /> <statusCode code="completed" /> <effectiveTime value=" 552262797003" /> <value unit="MG/DL" xsi:type=& quot;PQ" value="120" /> <interpretationCode codeSystem="local" code="*" /> < referenceRange> <observationRange><text>65-110</ text> </observationRange> </referenceRange> </observation> </component> <component> <observation moodCode="EVN" classCode="OBS"> <templateId root="2.16.840.1.043499.10.20.22.4.2" /> <id nullFlavor="NA" /> <code codeSystem=" local" code="300.2000" displayName="Osmolality,Calculated& quot; /> <statusCode code="completed" /> & lt;effectiveTime value="570993732936" /> <value unit=& quot;MOSM/KG" xsi:type="PQ" value="274" /> <referenceRange> <observationRange> <text >261-280</text> </observationRange> </ referenceRange> </observation> </component> < component> <observation moodCode="EVN" classCode=" OBS"> <templateId root="2.16.840.1.570550.10.20.22.4.2& quot; /> <id nullFlavor="NA" /> <code codeSystem="local" code="300.2200" displayName="Calcium " /> <statusCode code="completed" /> & lt;effectiveTime value="987490316618" /> <value unit=& quot;MG/DL" xsi:type="PQ" value="9.6" /> < referenceRange> <observationRange> <text> 8.4-10.2</text> </observationRange> </ referenceRange> </observation> </component> < component> <observation moodCode="EVN" classCode=" OBS"> <templateId root="2.16.840.1.766357.10.20.22.4.2& quot; /> <id nullFlavor="NA" /> <code codeSystem="local" code="300.2700" displayName=" Bilirubin,Total" /> <statusCode code="completed" / > <effectiveTime value="943339720987" /> < value unit="MG/DL" xsi:type="PQ" value="0.40" /&gt ; <referenceRange> <observationRange> <text>0.20-1.30</text> </observationRange> </referenceRange> </observation> </component&gt ; <component> <observation moodCode="EVN" classCode="OBS"> <templateId root=" 2.16.840.1.096268.10.20.22.4.2" /> <id nullFlavor="NA& quot; /> <code codeSystem="local" code="300.2975& quot; displayName="Alkaline Phosphatase" /> < statusCode code="completed" /> <effectiveTime value=& quot;809639105824" /><value unit="U/L" xsi:type="PQ& quot; value="64" /> <referenceRange> < observationRange> <text>38-126</text> </ observationRange> </referenceRange> </observation&gt ; </component> <component> <observation moodCode ="EVN" classCode="OBS"> <templateId root=& quot;2.16.840.1.501779.10.20.22.4.2" /><id nullFlavor="NA" /> <code codeSystem="local" code="300.3050" displayName="AST - Aspartate Amino Transfer" /> < statusCode code="completed" /> <effectiveTime value=& quot;897266966902" /><value unit="U/L" xsi:type="PQ& quot; value="18" /> <referenceRange> < observationRange> <text>14-36</text> </ observationRange> </referenceRange> </observation&gt ; </component> <component> <observation moodCode ="EVN" classCode="OBS"> <templateId root=& quot;2.16.840.1.585372.10.20.22.4.2" /> <id nullFlavor=&quot ;NA" /> <code codeSystem="local" code=" 300.3110" displayName="TP - Total Protein" /> < statusCode code="completed" /> <effectiveTime value=& quot;958854329688" /> <value unit="g/dL" xsi:type= "PQ" value="6.8" /> <referenceRange> <observationRange> <text>6.3-8.2</text> </observationRange> </referenceRange> < /observation> </component> <component> < observation moodCode="EVN" classCode="OBS"> < templateId root="2.16.840.1.323284.10.20.22.4.2" /> < id nullFlavor="NA" /> <code codeSystem="local&quot ; code="300.3120" displayName="Albumin Level" /> <statusCode code="completed" /> <effectiveTime value="890408537583" /> <value unit="g/dL" xsi:type="PQ" value="4.0" /> <referenceRange& gt; <observationRange> <text>3.5-5.0</ text> </observationRange> </referenceRange> </observation> </component> <component> <observation moodCode="EVN" classCode="OBS"> <templateId root="2.16.840.1.135718.10.20.22.4.2" /> <id nullFlavor="NA" /> <code codeSystem=" local" code="300.3130" displayName="Globulin" /> <statusCode code="completed" /> < effectiveTime value="403972618474" /> <value unit=&quot ;G/DL" xsi:type="PQ" value="2.8" /> < referenceRange> <observationRange> <text> 2.4-3.6</text> </observationRange> </ referenceRange> </observation> </component> < component> <observation moodCode="EVN" classCode="OBS" > <templateId root="2.16.840.1.630089.10.20.22.4.2" /& gt; <id nullFlavor="NA" /> <code codeSystem=& quot;local" code="300.3140" displayName="Albumin/Globulin Ratio" /> <statusCode code="completed" /> <effectiveTime value="168014429050" /> <value unit="RATIO" xsi:type="PQ" value="1.4" /> <referenceRange> <observationRange> &lt ;text>1.1-2.2</text> </observationRange> < /referenceRange> </observation> </component> &lt ;component> <observation moodCode="EVN" classCode=" OBS"> <templateId root="2.16.840.1.969543.10.20.22.4.2& quot; /> <id nullFlavor="NA" /> <code codeSystem= "local" code="300.0095" displayName="LICTERUS" /& gt; <statusCode code="completed" /> < effectiveTime value="553895765935" /> <value unit=&quot ;" xsi:type="PQ" value="< 2" /> < referenceRange> <observationRange> <text> 0-7</text> </observationRange> </ referenceRange> </observation> </component> < component> <observation moodCode="EVN" classCode=" OBS"> <templateId root="2.16.840.1.238207.10.20.22.4.2& quot; /> <id nullFlavor="NA" /> <code codeSystem="local" code="300.0096" displayName=" LHEMOLYSIS" /> <statusCode code="completed" /> <effectiveTime value="733704220025" /> < value unit="" xsi:type="PQ" value="< 15" /& gt; <referenceRange> <observationRange> <text>0-25</text> </observationRange> </referenceRange> </observation> </component> <component> <observation moodCode="EVN" classCode ="OBS"> <templateId root=" 2.16.840.1.045620.10.20.22.4.2" /> <id nullFlavor="NA& quot; /> <code codeSystem="local" code="300.0097& quot; displayName="LTURBIDITY" /> <statusCode code=& quot;completed" /> <effectiveTime value="605437053538& quot; /> <value unit="" xsi:type="PQ" value=& quot;< 20" /> <referenceRange> < observationRange> <text>0-20</text> </ observationRange> </referenceRange> </observation&gt ; </component> <component> <observation moodCode ="EVN" classCode="OBS"> <templateId root=& quot;2.16.840.1.195176.10.20.22.4.2" /> <id nullFlavor="NA&quot ; /> <code codeSystem="local" code="300.3105&quot ; displayName="LALTV" /> <statusCode code=" completed" /> <effectiveTime value="339043637512" /> <value unit="U/L" xsi:type="PQ" value=& quot;24" /> <referenceRange> <observationRange> <text>1-35</text> </observationRange> </referenceRange> </observation> </component& gt; </organizer> </entry> <entry> <organizer moodCode="EVN" classCode="BATTERY"> <templateId root="2.16.840.1.631607.10.20.22.4.1" /> <id nullFlavor=& quot;NA" /> <code codeSystem="local" code="LMAG& quot; displayName="L200.2000" /> <statusCode code=" completed" /> <component> <observation moodCode=& quot;EVN" classCode="OBS"> <templateId root=" 2.16.840.1.573898.10.20.22.4.2" /> <id nullFlavor="NA& quot; /> <code codeSystem="local" code="300.2350& quot; displayName="MAG - Magnesium" /> <statusCode code ="completed" /> <effectiveTime value="990405152585 " /> <value unit="MG/DL" xsi:type="PQ" value="1.8" /> <referenceRange> < observationRange> <text>1.6-2.3</text> & lt;/observationRange> </referenceRange> </observation> </component> </organizer> </entry> <entry> <organizer moodCode="EVN" classCode="BATTERY"> <templateId root="2.16.840.1.174949.10.20.22.4.1" /> < id nullFlavor="NA" /> <code codeSystem="local" code="LLDH" displayName="L200.1855" /> < statusCode code="completed" /> <component> < observation moodCode="EVN" classCode="OBS"> < templateId root="2.16.840.1.856723.10.20.22.4.2" /> < id nullFlavor="NA" /> <code codeSystem="local&quot ; code="300.3250" displayName="LDH - Lactate Dehydrogenase" /> <statusCode code="completed" /><effectiveTime value="996046345669" /> <value unit="U/L" xsi :type="PQ" value="316" /> <referenceRange&gt ; <observationRange> <text>313618</text& gt; </observationRange> </referenceRange> </ observation> </component> </organizer> </entry> & lt;entry> <organizer moodCode="EVN" classCode="BATTERY& quot;> <templateId root="2.16.840.1.072164.10.20.22.4.1" /& gt; <id nullFlavor="NA" /> <code codeSystem=" local" code="LDIFFM" displayName="L100.0105" /> <statusCode code="completed" /> <component> <observation moodCode="EVN" classCode="OBS"> <templateId root="2.16.840.1.422278.10.20.22.4.2" /> & lt;id nullFlavor="NA" /> <code codeSystem="local& quot; code="100.1650" displayName="NEUTROPHILS % (MANUAL) " /> <statusCode code="completed" /> < effectiveTime value="067154029600" /> <value unit=&quot ;%" xsi:type="PQ" value="70.0" /> & lt;interpretationCode codeSystem="local" code="*" /> <referenceRange> <observationRange> & lt;text>33-66</text> </observationRange> < /referenceRange> </observation> </component> &lt ;component> <observation moodCode="EVN" classCode="OBS& quot;> <templateId root="2.16.840.1.616201.10.20.22.4.2&quot ; /> <id nullFlavor="NA" /> <code codeSystem="local" code="100.1850" displayName=" LYMPHOCYTES % (MANUAL)" /> <statusCode code=" completed" /> <effectiveTime value="146888844065" /> <value unit="%" xsi:type="PQ" value="20.0" /> <interpretationCode codeSystem=" local" code="*" /> <referenceRange> <observationRange> <text>23-45</text> </observationRange> </referenceRange> </ observation> </component> <component> < observation moodCode="EVN" classCode="OBS"> < templateId root="2.16.840.1.495682.10.20.22.4.2" /> < id nullFlavor="NA" /><code codeSystem="local" code=& quot;100.1950" displayName="MONOCYTES % (MANUAL)" /> <statusCode code="completed" /> < effectiveTime value="466311660173" /> <value unit=&quot ;%" xsi:type="PQ" value="4.0" /> & lt;referenceRange> <observationRange> <text& gt;0-9.0</text> </observationRange> </ referenceRange> </observation> </component> < component><observation moodCode="EVN" classCode="OBS"& gt; <templateId root="2.16.840.1.331073.10.20.22.4.2" /&gt ; <id nullFlavor="NA" /> <code codeSystem=" local" code="100.0" displayName="EOSINOPHILS % ( MANUAL)" /> <statusCode code="completed" /> <effectiveTime value="081009937152" /> < value unit="%" xsi:type="PQ" value="5.0" / > <interpretationCode codeSystem="local" code="*& quot; /> <referenceRange> <observationRange> <text>0-4</text> </observationRange> </referenceRange> </observation> </component&gt ; <component> <observation moodCode="EVN" classCode="OBS"> <templateId root=" 2.16.840.1.533171.10.20.22.4.2" /> <id nullFlavor="NA& quot; /> <code codeSystem="local" code="100.2200& quot; displayName="METAMYELOCYTES %" /> < statusCode code="completed" /> <effectiveTime value=& quot;200827383303" /> <value unit="%" xsi: type="PQ"value="1.0" /> <interpretationCode codeSystem="local" code="*" /> < referenceRange> <observationRange> <text> 0-0</text> </observationRange> </ referenceRange> </observation> </component> < component> <observation moodCode="EVN" classCode=" OBS"> <templateId root="2.16.840.1.969719.10.20.22.4.2& quot; /> <id nullFlavor="NA" /> <code codeSystem="local" code="100.2400" displayName=" PROLYMPHOCYTES %" /> <statusCode code="completed&quot ; /> <effectiveTime value="355512798243" /> <value unit="T/MM3" xsi:type="PQ" value="9.7&quot ; /> <interpretationCode codeSystem="local" code=" *" /> <referenceRange> <observationRange> <text>1.8-7.7</text> </observationRange> </referenceRange> </observation> </component& gt; <component> <observation moodCode="EVN" classCode="OBS"> <templateId root=" 2.16.840.1.364609.10.20.22.4.2" /> <id nullFlavor="NA& quot; /> <code codeSystem="local" code="100.2650& quot; displayName="NEUTROPHILS # (MANUAL)" /> < statusCode code="completed" /> <effectiveTime value=& quot;930539800938" /> <value unit="T/MM3" xsi:type=&quot ;PQ" value="0.6" /> <referenceRange> <observationRange> <text>0-0.8</text> </observationRange> </referenceRange> </ observation> </component> <component> < observation moodCode="EVN" classCode="OBS"> < templateId root="2.16.840.1.667134.10.20.22.4.2" /> <id nullFlavor="NA" /> <code codeSystem="local" code="100.2750" displayName="MONOCYTES # (MANUAL)" /> <statusCode code="completed" /> < effectiveTime value="691422611018" /> <value unit=&quot ;T/MM3" xsi:type="PQ" value="0.7" /> < interpretationCode codeSystem="local" code="*" /> <referenceRange> <observationRange> <text& gt;0-0.5</text> </observationRange> </ referenceRange> </observation> </component> < component> <observation moodCode="EVN" classCode=" OBS"> <templateId root="2.16.840.1.074716.10.20.22.4.2&quot ; /> <id nullFlavor="NA" /> <code codeSystem="local" code="100.2900" displayName=" METAMYELOCYTES #" /> <statusCode code="completed" /> <effectiveTime value="085931641287" /> < value unit="T/MM3" xsi:type="PQ" value="0.1" /&gt ; <referenceRange> <observationRange> <text>NRG</text> </observationRange> &lt ;/referenceRange> </observation> </component> & lt;component> <observation moodCode="EVN" classCode=&quot ;OBS"> <templateId root="2.16.840.1.200346.10.20.22.4.2 " /> <id nullFlavor="NA" /> <code codeSystem="local" code="100.2550" displayName=" Lymphocytes # (Manual)" /> <statusCode code="completed& quot; /> <effectiveTime value="768269782781" /> <value unit="T/MM3" xsi:type="PQ" value="2.8& quot; /> <referenceRange> <observationRange> <text>1-4.8</text> </observationRange&gt ; </referenceRange> </observation> </component> <component> <observation moodCode="EVN" classCode= "OBS"> <templateId root=" 2.16.840.1.303781.10.20.22.4.2" /> <id nullFlavor="NA& quot; /> <code codeSystem="local" code="100.4565& quot; displayName="LRBCMOR" /> <statusCode code=" completed" /> <effectiveTime value="989439066034" /> <value unit="" xsi:type="PQ" value=" Normal" /> <referenceRange> < observationRange> <text>NRG</text> </ observationRange> </referenceRange> </observation&gt ; </component> </organizer> </entry> <entry> <organizer moodCode="EVN" classCode="BATTERY"> <templateIdroot="2.16.840.1.935355.10.20.22.4.1" /> < id nullFlavor="NA" /> <code codeSystem="local" code=& quot;LTSH" displayName="L200.3850" /> <statusCode code ="completed" /> <component> <observation moodCode="EVN" classCode="OBS"> <templateId root="2.16.840.1.438646.10.20.22.4.2" /> <id nullFlavor ="NA" /> <code codeSystem="local" code=" 300.5500" displayName="TSH - Thyroid Stim Hormone" /> <statusCode code="completed" /> <effectiveTime value="226269818066" /> <value unit="miu/L" xsi:type="PQ" value="1.28" /> <referenceRange > <observationRange> <text>0.47-4.68</text> </observationRange> </referenceRange> </ observation> </component> </organizer> </entry> & lt;entry> <organizer moodCode="EVN" classCode="BATTERY& quot;> <templateId root="2.16.840.1.290537.10.20.22.4.1" /& gt; <id nullFlavor="NA" /> <code codeSystem=" local" code="LACTH-A" displayName="L750.0200" /> <statusCode code="completed" /> <component> <observation moodCode="EVN" classCode="OBS"> <templateId root="2.16.840.1.908895.10.20.22.4.2" /> <id nullFlavor="NA" /> <code codeSystem=" local" code="902.0325" displayName="LACTH-A" /> & lt;statusCode code="completed" /> <effectiveTime value= "[id number]" /> <value unit="pg/mL" xsi: type="PQ" value="17" /> <referenceRange> <observationRange> <text>NRG</text> </observationRange> </referenceRange> < /observation> </component> </organizer> </entry> <entry> <organizer moodCode="EVN" classCode="BATTERY& quot;> <templateId root="[id number]" /& gt; <id nullFlavor="NA" /> <code codeSystem=" local" code="LCORTR-A" displayName="L902.5645" /> <statusCode code="completed" /> <component> <observation moodCode="EVN" classCode="OBS"> <templateId root="[id number]" /> <id nullFlavor="NA" /> <code codeSystem=" local" code="902.5645" displayName="Cortisol Random, Serum - AMS" /> <statusCode code="completed" /> <effectiveTime value="141078190319" /> <value unit=& quot;ug/dL" xsi:type="PQ" value="6" /> < referenceRange> <observationRange> <text> 3-20</text> </observationRange> </ referenceRange> </observation> </component> </ organizer> </entry> <entry> <organizer moodCode="EVN " classCode="BATTERY"> <templateId root=" 2.16.840.1.356064.10.20.22.4.1" /> <id nullFlavor="NA&quot ; /> <code codeSystem="local" code="LT4F" displayName="L200.3600" /> <statusCode code="completed " /> <component> <observation moodCode="EVN& quot; classCode="OBS"> <templateId root=" 2.16.840.1.240563.10.20.22.4.2" /> <id nullFlavor="NA& quot; /> <code codeSystem="local" code="300.5250& quot; displayName="Free T4 (Free Thyroxine)-Batch" /> < statusCode code="completed" /> <effectiveTime value=& quot;591020344170" /> <value unit="ng/dL" xsi:type ="PQ" value="2.05" /> <referenceRange> <observationRange> <text>0.78-2.19</text&gt ; </observationRange> </referenceRange> </ observation> </component> </organizer> </entry> & lt;entry> <organizer moodCode="EVN" classCode="BATTERY& quot;> <templateId root="2.16.840.1.164554.10.20.22.4.1" /& gt; <id nullFlavor="NA" /> <code codeSystem=" local" code="LCBC" displayName="L100.0050" />< statusCode code="completed" /> <component> < observation moodCode="EVN" classCode="OBS"> < templateId root="2.16.840.1.349520.10.20.22.4.2" /> < id nullFlavor="NA" /> <code codeSystem="local&quot ; code="100.0150" displayName="WBC - WHITE BLOOD COUNT" /&gt ; <statusCode code="completed" /> < effectiveTime value="384851032995" /> <value unit=&quot ;T/MM3" xsi:type="PQ" value="11.7" /> < interpretationCode codeSystem="local" code="*" /> & lt;referenceRange> <observationRange> <text& gt;4.5-11.0</text> </observationRange> </ referenceRange> </observation> </component> < component> <observation moodCode="EVN" classCode=" OBS"> <templateId root="2.16.840.1.941101.10.20.22.4.2& quot; /> <id nullFlavor="NA" /> <code codeSystem="local" code="100.0250" displayName="RED BLOOD COUNT" /> <statusCode code="completed" /&gt ; <effectiveTime value="248459238941" /> <value unit="M/MM3" xsi:type="PQ" value="5.16" /> <referenceRange> <observationRange> & lt;text>4.00-5.20</text> </observationRange> </referenceRange> </observation> </component> <component> <observation moodCode="EVN" classCode=& quot;OBS"> <templateId root=" 2.16.840.1.308191.10.20.22.4.2" /> <id nullFlavor="NA& quot; /> <code codeSystem="local" code="100.0300& quot; displayName="HGB - HEMOGLOBIN" /> <statusCode code="completed" /> <effectiveTime value=" 845069305815" /> <value unit="GM/DL" xsi:type=& quot;PQ" value="14.3" /> <referenceRange> <observationRange> <text>12-16</text> & lt;/observationRange> </referenceRange> </ observation> </component> <component> < observation moodCode="EVN" classCode="OBS"> < templateId root="2.16.840.1.520828.10.20.22.4.2" /> < id nullFlavor="NA" /> <code codeSystem="local&quot ; code="100.0400" displayName="HCT - HEMATOCRIT" /> <statusCode code="completed" /> <effectiveTime value="159382166116" /> <value unit="%& quot; xsi:type="PQ" value="42.4" /> < referenceRange> <observationRange> <text> 36-46</text> </observationRange> </ referenceRange> </observation> </component> < component> <observation moodCode="EVN" classCode=" OBS"> <templateId root="2.16.840.1.849530.10..22.4.2& quot; /> <id nullFlavor="NA" /> <code codeSystem="local" code="100.0550" displayName="MEAN CORPUSCULAR VOLUME" /> <statusCode code="completed&quot ; /> <effectiveTime value="445337148697" /> <value unit="UM3" xsi:type="PQ" value="82.2" /> <referenceRange> <observationRange> <text>80-100</text> </observationRange> </referenceRange> </observation> </component&gt ; <component> <observation moodCode="EVN" classCode="OBS"> <templateId root=" 2.16.840.1.616241.10..22.4.2" /> <id nullFlavor="NA& quot; /> <code codeSystem="local" code="100.0600& quot; displayName="MEAN CORPUSCULAR HGB" /> < statusCode code="completed" /> <effectiveTime value=& quot;907198562130" /> <value unit="UUG" xsi:type=& quot;PQ" value="27.7" /> <referenceRange> &lt ;observationRange> <text>26-34</text> &lt ;/observationRange> </referenceRange> </observation& gt; </component> <component> <observation moodCode="EVN" classCode="OBS"> <templateId root=&quot ;2.16.840.1.301692.10.20.22.4.2" /> <id nullFlavor="NA& quot; /> <code codeSystem="local" code="100.0650& quot; displayName="MEAN CORPUSCULAR HGB CONC([facility]" /> < statusCode code="completed"/> <effectiveTime value=& quot;708918106439" /> <value unit="GM/DL" xsi:type ="PQ" value="33.7" /> <referenceRange> <observationRange> <text>31-37</text> </observationRange> </referenceRange> </ observation> </component><component> <observation moodCode="EVN" classCode="OBS"> <templateId root=& quot;2.16.840.1.281652.10.20.22.4.2" /> <id nullFlavor=&quot ;NA" /> <code codeSystem="local" code=" 100.0750" displayName="RDW STANDARD DEVIATION" /> &lt ;statusCode code="completed" /> <effectiveTime value=& quot;895854142582" /> <value unit="FL" xsi:type=& quot;PQ" value="40.7" /> <referenceRange> <observationRange> <text>36.9-50.2</text> </observationRange> </referenceRange> & lt;/observation> </component> <component> < observation moodCode="EVN" classCode="OBS">< templateId root="2.16.840.1.865340.10.20.22.4.2" /> < id nullFlavor="NA" /> <code codeSystem="local&quot ; code="100.0850" displayName="PLT - PLATELET COUNT" /> <statusCode code="completed" /> <effectiveTime value="504417000372" /> <value unit="T/MM3" xsi:type="PQ" value="339" /> <referenceRange& gt; <observationRange> <text>130-400</ text> </observationRange> </referenceRange> </observation> </component> <component> <observation moodCode="EVN" classCode="OBS"> <templateId root="2.16.840.1.994803.10.20.22.4.2" /> <id nullFlavor="NA" /> <code codeSystem=" local" code="100.0950" displayName="MEAN PLATELET VOLUME& quot; /> <statusCode code="completed" /> & lt;effectiveTime value="323508044806" /> <value unit=& quot;UM3" xsi:type="PQ" value="9.1" /> < interpretationCode codeSystem="local" code="*" /> <referenceRange> <observationRange> <text& gt;9.4-12.4</text> </observationRange> </ referenceRange> </observation> </component> < component> <observation moodCode="EVN" classCode=" OBS"> <templateId root="2.16.840.1.056854.10.20.22.4.2& quot; /> <id nullFlavor="NA" /> <code codeSystem="local" code="100.1050" displayName=" NEUTROPHILS %(AUTO)" /> <statusCode code=" completed" /> <effectiveTime value="070423083701" /> <value unit="%" xsi:type="PQ" value="66.2" /> <interpretationCode codeSystem=" local" code="*" /> <referenceRange> <observationRange> <text>33-66</text> </ observationRange> </referenceRange> </observation&gt ; </component> <component> <observation moodCode ="EVN" classCode="OBS"> <templateId root=& quot;2.16.840.1.878273.10.20.22.4.2" /> <id nullFlavor=&quot ;NA" /> <code codeSystem="local" code=" 100.1100" displayName="LYMPHOCYTES % (AUTO)" /> <statusCode code="completed" /> <effectiveTime value="105198891462" /> <value unit="%& quot; xsi:type="PQ" value="22.1" /> < interpretationCode codeSystem="local" code="*" /> <referenceRange> <observationRange> < text>23-45</text> </observationRange> </ referenceRange> </observation> </component> < component> <observation moodCode="EVN" classCode=" OBS"> <templateId root="2.16.840.1.821588.10.20.22.4.2& quot; /> <id nullFlavor="NA" /> <code codeSystem="local" code="100.1150" displayName=" MONOCYTES % (AUTO)" /> <statusCode code="completed& quot; /> <effectiveTime value="220474153192" /> <value unit="%" xsi:type="PQ" value=" 6.2" /> <referenceRange> <observationRange& gt; <text>0-9.0</text> </observationRange > </referenceRange> </observation> </component& gt; <component> <observation moodCode="EVN" classCode="OBS"> <templateId root=" 2.16.840.1.158213.10.20.22.4.2" /> <id nullFlavor="NA& quot; /> <code codeSystem="local" code="100.1200& quot; displayName="EOSINOPHILS % (AUTO)" /> < statusCode code="completed" /> <effectiveTime value=& quot;682715341602" /> <value unit="%" xsi: type="PQ" value="4.9" /> <interpretationCode codeSystem="local" code="*" /> < referenceRange> <observationRange> <text> 0-4</text> </observationRange> </ referenceRange> </observation> </component> < component> <observation moodCode="EVN" classCode=" OBS"> <templateId root="2.16.840.1.066605.10.20.22.4.2& quot; /> <id nullFlavor="NA" /> <code codeSystem="local" code="100.1250" displayName=" BASOPHILS % (AUTO)" /> <statusCode code=" completed" /> <effectiveTime value="749880515826"/ > <value unit="%" xsi:type="PQ" value ="0.3" /> <referenceRange> < observationRange> <text>0-2</text> </ observationRange> </referenceRange> </observation&gt ; </component> <component> <observation moodCode ="EVN" classCode="OBS"> <templateId root=& quot;2.16.840.1.103028.10.20.22.4.2" /> <id nullFlavor=&quot ;NA" /> <code codeSystem="local" code=" 100.1275" displayName="IMMATURE GRANULOCYTE % (AUTO)" /& gt; <statusCode code="completed" /> < effectiveTime value="322227697325" /> <value unit=&quot ;%" xsi:type="PQ" value="0.3" /> & lt;referenceRange> <observationRange> <text& gt;0.0-0.5</text> </observationRange> </ referenceRange> </observation> </component> < component> <observation moodCode="EVN" classCode=" OBS"> <templateId root="2.16.840.1.309386.10.20.22.4.2& quot; /> <id nullFlavor="NA" /> <code codeSystem="local" code="100.1300" displayName=" NEUTROPHILS # (AUTO)" /> <statusCode code="completed" /& gt; <effectiveTime value="378931748625" /> &lt ;value unit="T/MM3" xsi:type="PQ" value="7.8" /&gt ; <interpretationCode codeSystem="local" code="*&quot ; /> <referenceRange> <observationRange> <text>1.8-7.7</text> </observationRange> </referenceRange> </observation> </component> <component> <observation moodCode="EVN" classCode= "OBS"> <templateId root=" 2.16.840.1.405516.10.20.22.4.2" /> <id nullFlavor="NA& quot; /> <code codeSystem="local" code="100.1350& quot; displayName="LYMPHOCYTES # (AUTO)" /> < statusCode code="completed" /> <effectiveTime value=& quot;990008891135" /> <value unit="T/MM3" xsi:type=" PQ" value="2.6" /> <referenceRange> <observationRange> <text>1-4.8</text> &lt ;/observationRange> </referenceRange> </observation& gt;</component> <component> <observation moodCode=& quot;EVN" classCode="OBS"> <templateId root=" 2.16.840.1.085659.10.20.22.4.2" /> <id nullFlavor="NA" /> <code codeSystem="local" code="100.1400" displayName="MONOCYTES # (AUTO)" /> <statusCode code=& quot;completed" /> <effectiveTime value="456548312147& quot; /> <value unit="T/MM3" xsi:type="PQ" value="0.7" /> <referenceRange> < observationRange> <text>0-0.8</text> < /observationRange> </referenceRange> </observation& gt; </component> <component> <observation moodCode="EVN" classCode="OBS"> <templateId root="2.16.840.1.245528.10.20.22.4.2" /> <id nullFlavor ="NA" /> <code codeSystem="local" code=" 100.1450" displayName="EOSINOPHILS # (AUTO)" /> < statusCode code="completed" /> <effectiveTime value=& quot;287331433370" /> <value unit="T/MM3" xsi:type ="PQ" value="0.6" /> <interpretationCode codeSystem="local" code="*" /> < referenceRange> <observationRange> <text> 0-0.5</text> </observationRange> </ referenceRange> </observation> </component> < component> <observation moodCode="EVN" classCode=" OBS"> <templateId root="2.16.840.1.897658.10.20.22.4.2& quot; /> <id nullFlavor="NA" /> <code codeSystem="local" code="100.1500" displayName=" BASOPHILS # (AUTO)" /> <statusCode code="completed&quot ; /> <effectiveTime value="882657781050" /> <value unit="T/MM3" xsi:type="PQ" value="0.0&quot ; /> <referenceRange> <observationRange> <text>0-0.2</text> </observationRange> & lt;/referenceRange> </observation> </component> <component> <observation moodCode="EVN" classCode=" OBS"> <templateIdroot="2.16.840.1.351262.10.20.22.4.2& quot; /> <id nullFlavor="NA" /> <code codeSystem="local" code="100.1525" displayName=" IMMATUREGRANULOCYTE # (AUTO)" /> <statusCode code=" completed" /> <effectiveTime value="133996526845" /> <value unit="T/MM3" xsi:type="PQ" value=& quot;0.03" /> <referenceRange> < observationRange> <text>0.00-0.03</text> </observationRange> </referenceRange> </observation& gt; </component> </organizer> </entry> <entry&gt ; <organizer moodCode="EVN" classCode="BATTERY"> <templateId root="2.16.840.1.432005.10.20.22.4.1" /> & lt;id nullFlavor="NA" /> <code codeSystem="local&quot ; code="LCMP" displayName="L200.0020" /> < statusCode code="completed" /> <component> < observation moodCode="EVN" classCode="OBS"> < templateId root="2.16.840.1.138146.10.20.22.4.2" /> < id nullFlavor="NA" /> <code codeSystem="local&quot ; code="300.0400" displayName="FUNGAL CULTURE." /> <statusCode code="completed" /> <effectiveTime value="475208913078" /> <value unit="mg/dL" xsi:type="PQ" value="1.0" /> <referenceRange& gt; <observationRange> <text>0.7-1.2</ text> </observationRange> </referenceRange> </observation> </component> <component> < observation moodCode="EVN" classCode="OBS"> < templateId root="2.16.840.1.001924.10.20.22.4.2" /> < id nullFlavor="NA" /> <code codeSystem="local" code="300.0450" displayName="FUNGAL CULTURE, BLOOD." /> <statusCode code="completed" /> < effectiveTime value="698495816304" /> <value unit=&quot ;RATIO" xsi:type="PQ" value="13" /> < referenceRange> <observationRange> <text> 6-26</text> </observationRange> </ referenceRange> </observation> </component> < component> <observation moodCode="EVN" classCode=" OBS"> <templateId root="2.16.840.1.385481.10.20.22.4.2& quot; /> <id nullFlavor="NA" /> <code codeSystem="local" code="300.0100" displayName="NA - Sodium" /> <statusCode code="completed" /> <effectiveTime value="256057315050" /> <value unit="MEQ/L" xsi:type="PQ" value="143" /> <referenceRange> <observationRange> &lt ;text>134-144</text> </observationRange> < /referenceRange> </observation> </component> < component> <observation moodCode="EVN" classCode=" OBS"> <templateId root="2.16.840.1.620942.10.20.22.4.2& quot; /> <id nullFlavor="NA" /> <code codeSystem="local" code="300.0150" displayName=" Potassium" /> <statusCode code="completed" /> <effectiveTime value="032928307072"/> < value unit="MEQ/L" xsi:type="PQ" value="4.1" /&gt ; <referenceRange> <observationRange> <text>3.6-5</text> </observationRange> & lt;/referenceRange> </observation> </component> <component> <observation moodCode="EVN" classCode=& quot;OBS"> <templateId root=" 2.16.840.1.532280.10.20.22.4.2" /> <id nullFlavor="NA& quot; /> <code codeSystem="local" code="300.0200& quot; displayName="Chloride" /> <statusCode code=" completed" /> <effectiveTime value="649689595409" /> <value unit="MEQ/L" xsi:type="PQ" value=& quot;105" /> <referenceRange> < observationRange> <text>98-107</text> </ observationRange> </referenceRange> </observation&gt ; </component> <component> <observation moodCode ="EVN" classCode="OBS"> <templateId root=& quot;2.16.840.1.376623.10.20.22.4.2" /> <id nullFlavor=&quot ;NA" /> <code codeSystem="local" code=" 300.0250" displayName="CO2 - Carbon Dioxide" /> < statusCode code="completed" /> <effectiveTime value=& quot;333501798279" /> <value unit="MEQ/L" xsi:type ="PQ" value="24" /> <referenceRange> <observationRange> <text>22-30</text> </observationRange> </referenceRange> </ observation> </component> <component> < observation moodCode="EVN" classCode="OBS"> < templateId root="2.16.840.1.232742.10.20.22.4.2" /> < id nullFlavor="NA" /> <code codeSystem="local&quot ; code="300.0300"displayName="Anion Gap" /> < statusCode code="completed" /> <effectiveTime value=" 732310191235" /> <value unit="MEQ/L" xsi:type=& quot;PQ" value="14" /> <referenceRange> <observationRange> <text>5-15</text> </observationRange> </referenceRange> </ observation> </component> <component> < observation moodCode="EVN" classCode="OBS"> < templateId root="2.16.840.1.523530.10.20.22.4.2" /> < id nullFlavor="NA" /> <code codeSystem="local&quot ; code="300.0350" displayName="BUN - Blood Urea Nitrogen" /& gt; <statusCode code="completed" /><effectiveTime value="941002541818" /> <value unit="MG/DL" xsi:type="PQ" value="13.0" /> <referenceRange > <observationRange> <text>7-17</text& gt; </observationRange> </referenceRange> </ observation> </component> <component> < observation moodCode="EVN" classCode="OBS"> < templateId root="2.16.840.1.119769.10.20.22.4.2" /> < id nullFlavor="NA" /> <code codeSystem="local&quot ; code="300.0410" displayName="Glomerular Filtration Rate" / > <statusCode code="completed" /> < effectiveTime value="715844377562" /> <value unit=&quot ;" xsi:type="PQ" value="65" /> < referenceRange> <observationRange> <text> NRG</text> </observationRange> </ referenceRange> </observation> </component> < component> <observation moodCode="EVN" classCode=" OBS"> <templateId root="2.16.840.1.889239.10..22.4.2& quot; /> <id nullFlavor="NA" /> <code codeSystem="local" code="300.0500" displayName="Glucose " /> <statusCode code="completed" /> & lt;effectiveTime value="467751088173" /> <value unit=& quot;MG/DL" xsi:type="PQ" value="93" /> &lt ;referenceRange> <observationRange> <text&gt ;65-110</text> </observationRange> </ referenceRange> </observation> </component> < component> <observation moodCode="EVN" classCode=" OBS"> <templateId root="2.16.840.1.770312.10.20.22.4.2& quot; /> <id nullFlavor="NA" /> <code codeSystem="local" code="300.2000" displayName=" Osmolality,Calculated" /> <statusCode code="completed&quot ; /> <effectiveTime value="009658571656" /> <value unit="MOSM/KG" xsi:type="PQ" value="275& quot; /> <referenceRange> <observationRange> <text>261-280</text> </observationRange& gt; </referenceRange> </observation> </component&gt ; <component> <observation moodCode="EVN" classCode="OBS"> <templateId root=" 2.16.840.1.330905.10.20.22.4.2" /> <id nullFlavor="NA& quot; /> <code codeSystem="local" code="300.2200& quot; displayName="Calcium" /> <statusCode code=" completed" /> <effectiveTime value="648792926482" /> <value unit="MG/DL" xsi:type="PQ" value=& quot;9.6" /> <referenceRange> <observationRange&gt ; <text>8.4-10.2</text> </ observationRange> </referenceRange> </observation&gt ; </component> <component> <observation moodCode ="EVN" classCode="OBS"> <templateId root=& quot;2.16.840.1.784401.10.20.22.4.2" /> <id nullFlavor=&quot ;NA" /> <code codeSystem="local" code=" 300.2700" displayName="Bilirubin,Total" /> < statusCode code="completed" /> <effectiveTime value=& quot;246953279500" /> <value unit="MG/DL" xsi:type ="PQ" value="0.60" /> <referenceRange> <observationRange> <text>0.20-1.30</text&gt ; </observationRange> </referenceRange> &lt ;/observation> </component> <component> < observation moodCode="EVN" classCode="OBS"> < templateId root="2.16.840.1.724720.10..22.4.2" /> <id nullFlavor="NA" /> <code codeSystem="local" code="300.2975" displayName="Alkaline Phosphatase" /> <statusCode code="completed" /> < effectiveTime value="056451170177" /> <value unit=&quot ;U/L" xsi:type="PQ" value="76" /> < referenceRange> <observationRange> <text> 38-126</text></observationRange> </referenceRange> </observation> </component> <component> <observation moodCode="EVN" classCode="OBS"> <templateId root="2.16.840.1.644628.10.20.22.4.2" /> <id nullFlavor="NA" /> <code codeSystem=" local" code="300.3050" displayName="AST - Aspartate Amino Transfer" /> <statusCode code="completed" /> <effectiveTime value="982390169695" /> < value unit="U/L" xsi:type="PQ" value="18" /> <referenceRange> <observationRange> <text>14-36</text> </observationRange> &lt ;/referenceRange> </observation> </component> & lt;component> <observation moodCode="EVN" classCode=&quot ;OBS"> <templateId root="2.16.840.1.631316.10.20.22.4.2 " /> <id nullFlavor="NA" /> <code codeSystem="local" code="300.3110" displayName="TP - Total Protein" /> <statusCode code="completed" /& gt; <effectiveTime value="966522236495" /> &lt ;value unit="g/dL" xsi:type="PQ" value="7.2" /&gt ; <referenceRange> <observationRange> <text>6.3-8.2</text> </observationRange> & lt;/referenceRange> </observation> </component> & lt;component> <observation moodCode="EVN" classCode=&quot ;OBS"> <templateId root="2.16.840.1.594009.10.20.22.4.2& quot; /> <id nullFlavor="NA" /> <code codeSystem="local" code="300.3120" displayName=" Albumin Level" /> <statusCode code="completed" /& gt; <effectiveTime value="688212671605" /> < value unit="g/dL" xsi:type="PQ" value="4.3" /> <referenceRange> <observationRange> <text>3.5-5.0</text> </observationRange> </referenceRange> </observation> </component> <component> <observation moodCode="EVN" classCode ="OBS"> <templateId root=" 2.16.840.1.474020.10.20.22.4.2" /> <id nullFlavor="NA& quot; /> <code codeSystem="local" code="300.3130& quot; displayName="Globulin" /> <statusCode code=" completed" /> <effectiveTime value="457734128082" /> <value unit="G/DL" xsi:type="PQ" value=& quot;2.9" /> <referenceRange> < observationRange> <text>2.4-3.6</text> & lt;/observationRange> </referenceRange> </ observation> </component> <component> < observation moodCode="EVN" classCode="OBS"> < templateId root="2.16.840.1.143497.10.20.22.4.2" /> < id nullFlavor="NA" /> <code codeSystem="local" code=& quot;300.3140" displayName="Albumin/Globulin Ratio" /> <statusCode code="completed" /> < effectiveTimevalue="558848121982" /> <value unit=" RATIO" xsi:type="PQ" value="1.5" /> < referenceRange> <observationRange> <text>1.1- 2.2</text> </observationRange> </ referenceRange> </observation> </component> < component> <observation moodCode="EVN" classCode=" OBS"> <templateId root="2.16.840.1.591932.10.20.22.4.2& quot; /> <id nullFlavor="NA" /> <code codeSystem="local" code="300.0095" displayName=" LICTERUS" /> <statusCode code="completed" /> <effectiveTime value="321725290997" /> <value unit="" xsi:type="PQ" value="<2" /> <referenceRange> <observationRange> & lt;text>0-7</text> </observationRange> </ referenceRange> </observation> </component> < component> <observation moodCode="EVN" classCode=" OBS"> <templateId root="2.16.840.1.835353.10..22.4.2& quot; /> <id nullFlavor="NA" /> <code codeSystem="local" code="300.0096" displayName=" LHEMOLYSIS" /> <statusCode code="completed" /> <effectiveTime value="195755036000" /> < value unit="" xsi:type="PQ" value="< 15" /& gt; <referenceRange> <observationRange> <text>0-25</text> </observationRange> & lt;/referenceRange> </observation> </component> <component> <observation moodCode="EVN" classCode=& quot;OBS"> <templateId root=" 2.16.840.1.777890.10.20.22.4.2" /> <id nullFlavor="NA& quot; /> <code codeSystem="local" code="300.0097& quot; displayName="LTURBIDITY" /> <statusCode code=& quot;completed" /> <effectiveTime value="098641126637& quot; /> <value unit="" xsi:type="PQ" value=& quot;< 20" /> <referenceRange> < observationRange> <text>0-20</text> </ observationRange> </referenceRange> </observation&gt ; </component> <component> <observation moodCode ="EVN" classCode="OBS"> <templateId root=& quot;2.16.840.1.741551.10.20.22.4.2" /> <id nullFlavor=&quot ;NA" /> <code codeSystem="local" code=" 300.3105" displayName="LALTV" /> <statusCode code= "completed" /> <effectiveTime value="230404221233& quot; /> <value unit="U/L" xsi:type="PQ" value="22" /> <referenceRange> < observationRange> <text>1-35</text> </ observationRange> </referenceRange> </observation&gt ; </component> </organizer> </entry> <entry> <organizer moodCode="EVN" classCode="BATTERY"> <templateId root="[id number]" /> < id nullFlavor="NA" /> <code codeSystem="local" code="LTROPI" displayName="L300.3490" /> < statusCode code="completed" /> <component> < observation moodCode="EVN" classCode="OBS"> < templateId root="[id number]" /> < id nullFlavor="NA" /> <code codeSystem="local&quot ; code="300.3500" displayName="Troponin I" /> & lt;statusCode code="completed" /> <effectiveTime value= "[id number]" /> <value unit="ng/ml" xsi: type="PQ" value="< 0.012" /> < referenceRange> <observationRange> <text> 0-0.12</text> </observationRange> </ referenceRange> </observation> </component> </ organizer> </entry> <entry> <organizer moodCode="EVN " classCode="BATTERY"> <templateId root=" 2.16.840.1.797138.10.20.22.4.1" /> <id nullFlavor="NA&quot ; /> <code codeSystem="local" code="MCUBLD" displayName="M110.0180" /> <statusCode code="completed " /> <component> <observation moodCode="EVN& quot; classCode="OBS"> <templateId root=" 2.16.840.1.134868.10.20.22.4.2" /> <id nullFlavor="NA& quot; /> <code codeSystem="local" code="110.0200& quot; displayName="ANTI-D" /> <statusCode code=" completed" /> <effectiveTime value="655166080593" /> <value unit="" xsi:type="PQ" value=" No Growth After 5 Days" /> <referenceRange> & lt;observationRange> <text>NRG</text> &lt ;/observationRange></referenceRange> </observation> & lt;/component> </organizer> </entry> <entry> < organizer moodCode="EVN" classCode="BATTERY"> < templateId root="2.16.840.1.418907.10.20.22.4.1" /> <id nullFlavor="NA" /> <code codeSystem="local" code= "MCUBLD" displayName="M110.0180" /> <statusCode code="completed" /> <component> <observation moodCode="EVN" classCode="OBS"> <templateId root="2.16.840.1.971181.10.20.22.4.2" /> <id nullFlavor ="NA" /> <code codeSystem="local" code=" 110.0200" displayName="ANTI-D" /> <statusCode code ="completed" /> <effectiveTime value="016169474850 " /> <value unit="" xsi:type="PQ" value= "No Growth After 5 Days" /> <referenceRange> <observationRange> <text>NRG</text> </observationRange> </referenceRange> </ observation> </component> </organizer> </entry> & lt;entry> <organizer moodCode="EVN" classCode="BATTERY& quot;> <templateId root="2.16.840.1.934064.10.20.22.4.1" /> <id nullFlavor="NA" /> <code codeSystem="local " code="KWABENA" displayName="L600.0100" /> < statusCode code="completed" /> <component> < observation moodCode="EVN" classCode="OBS"> < templateId root="2.16.840.1.248732.10.20.22.4.2" /> < id nullFlavor="NA" /> <code codeSystem="local" code=& quot;200.0150" displayName="POTASSIUM" /> < statusCode code="completed" /> <effectiveTime value=& quot;827837134261" /> <value unit="" xsi:type=& quot;PQ" value="Urine, Void-CC/notCC" /> < referenceRange> <observationRange> <text>NRG& lt;/text> </observationRange> </referenceRange& gt; </observation> </component> <component> <observation moodCode="EVN" classCode="OBS"> <templateId root="2.16.840.1.412571.10.20.22.4.2" /> <id nullFlavor="NA" /> <code codeSystem=&quot ;local" code="200.0200" displayName="CHLORIDE" /> <statusCode code="completed" /> <effectiveTime value="634721680089" /> <value unit="" xsi: type="PQ" value="YELLOW"/> <referenceRange&gt ; <observationRange> <text>YELLOW</text& gt; </observationRange> </referenceRange> </observation> </component> <component> &lt ;observation moodCode="EVN" classCode="OBS"> &lt ;templateId root="2.16.840.1.939033.10.20.22.4.2" /> < id nullFlavor="NA" /> <code codeSystem="local&quot ; code="200.0300" displayName="ANION GAP" /> &lt ;statusCode code="completed" /> <effectiveTime value=& quot;580493720087" /> <value unit="" xsi:type="PQ& quot; value="CLEAR" /> <referenceRange> & lt;observationRange> <text>NRG</text> </ observationRange> </referenceRange> </observation&gt ; </component> <component> <observation moodCode ="EVN" classCode="OBS"> <templateId root=& quot;2.16.840.1.915723.10.20.22.4.2" /> <id nullFlavor="NA&quot ; /> <code codeSystem="local" code="200.0350&quot ; displayName="BLOOD UREA NITROGEN" /> <statusCode code ="completed" /> <effectiveTime value="663178003449 " /> <valueunit="" xsi:type="PQ" value=& quot;5.5" /> <referenceRange> < observationRange> <text>5.0-8.0</text> & lt;/observationRange> </referenceRange> </ observation> </component> <component> < observation moodCode="EVN" classCode="OBS"> < templateId root="2.16.840.1.731320.10.20.22.4.2" /> < id nullFlavor="NA" /> <code codeSystem="local&quot ; code="200.0450"displayName="BUN/CREATININE RATIO" /> <statusCode code="completed" /> < effectiveTime value="475106128599" /> <value unit=&quot ;" xsi:type="PQ" value="NEGATIVE" /> < referenceRange> <observationRange> <text> NEGATIVE</text> </observationRange> </ referenceRange> </observation> </component> < component> <observation moodCode="EVN" classCode=" OBS"> <templateId root="2.16.840.1.947913.10.20.22.4.2& quot; /> <id nullFlavor="NA" /> <code codeSystem="local" code="200.0500" displayName="GLUCOSE " /> <statusCode code="completed" /> & lt;effectiveTime value="843643253042" /> <value unit=& quot;" xsi:type="PQ" value="NEGATIVE" /> & lt;referenceRange> <observationRange> <text& gt;NEGATIVE</text> </observationRange> </ referenceRange> </observation> </component> < component> <observation moodCode="EVN" classCode=" OBS"> <templateId root="2.16.840.1.145990.10..22.4.2& quot; /> <id nullFlavor="NA" /> <code codeSystem="local" code="200.0600" displayName="CALCIUM " /> <statusCode code="completed" /> & lt;effectiveTime value="953669327475" /> <value unit=& quot;" xsi:type="PQ" value="NEGATIVE" /> & lt;referenceRange> <observationRange> <text> NEGATIVE</text> </observationRange> </ referenceRange> </observation> </component> < component> <observation moodCode="EVN" classCode=" OBS"> <templateId root="2.16.840.1.591785.10.20.22.4.2& quot; /> <id nullFlavor="NA" /> <code codeSystem="local" code="200.0750" displayName=" BILIRUBIN, CONJUG &amp; UNCONJUG" /> <statusCode code="completed" /> <effectiveTime value=" 095678276622" /> <value unit="" xsi:type="PQ& quot; value="NEGATIVE" /> <referenceRange> <observationRange> <text>NEGATIVE</text> </observationRange> </referenceRange> </ observation> </component> <component> < observation moodCode="EVN" classCode="OBS"> < templateId root="2.16.840.1.342482.10.20.22.4.2" /> < id nullFlavor="NA" /> <code codeSystem="local&quot ; code="200.0325" displayName="Specific [place],Urine" /&gt ; <statusCode code="completed" /> < effectiveTime value="472431188082" /> <value unit=&quot ;" xsi:type="PQ" value="<=1.005" /> <interpretationCode codeSystem="local" code="*" /> <referenceRange> <observationRange> < text>1.015-1.025</text> </observationRange> & lt;/referenceRange> </observation> </component> <component> <observation moodCode="EVN" classCode=& quot;OBS"> <templateId root=" 2.16.840.1.884574.10..22.4.2" /> <id nullFlavor="NA& quot; /> <code codeSystem="local" code="200.0410" displayName="Leukocyte Esterase,Urine" /> <statusCode code="completed" /> <effectiveTime value=" 224768012892" /> <value unit="" xsi:type="PQ& quot;value="NEGATIVE" /> <referenceRange> <observationRange> <text>NEGATIVE</text> </observationRange> </referenceRange> </ observation> </component> <component> < observation moodCode="EVN" classCode="OBS"> < templateId root="2.16.840.1.191747.10.20.22.4.2" /> < id nullFlavor="NA" /> <code codeSystem="local" code=& quot;200.0420" displayName="Nitrate,Urine" /> < statusCode code="completed" /> <effectiveTime value=& quot;573854362202" /> <value unit="" xsi:type=& quot;PQ" value="NEGATIVE" /> <referenceRange> <observationRange> <text>NEGATIVE</text> </observationRange> </referenceRange> </ observation> </component> <component> < observation moodCode="EVN" classCode="OBS"> < templateId root="2.16.840.1.762686.10.20.22.4.2" /> < id nullFlavor="NA" /> <code codeSystem="local&quot ; code="200.0740" displayName="Urobilinogen,Urine" /> <statusCode code="completed" /> < effectiveTime value="050876689874" /> <value unit=&quot ;EU/DL" xsi:type="PQ" value="0.2" /> < referenceRange> <observationRange> <text> NORMAL</text> </observationRange> </ referenceRange> </observation> </component> < component> <observation moodCode="EVN" classCode=" OBS"> <templateId root="2.16.840.1.529940.10..22.4.2& quot; /> <id nullFlavor="NA" /> <code codeSystem="local" code="200.0825" displayName="Occult Blood,Urine - Dipstick" /> <statusCode code="completed& quot; /> <effectiveTime value="462301322960" /> <value unit="" xsi:type="PQ" value="NEGATIVE& quot; /> <referenceRange> <observationRange> <text>NEGATIVE</text> </observationRange > </referenceRange> </observation> </ component> <component> <observation moodCode="EVN& quot; classCode="OBS"> <templateId root=" 2.16.840.1.646848.10..22.4.2" /> <id nullFlavor="NA& quot; /> <code codeSystem="local" code="200.0992& quot; displayName="Urine Microscopic (UA)" /> < statusCode code="completed" /> <effectiveTime value=& quot;451663122266" /> <value unit="" xsi:type=& quot;PQ" value="Microscopic Not Ind." /> < referenceRange> <observationRange> <text>NRG</ text> </observationRange> </referenceRange> </observation> </component> </organizer> </ entry> <entry> <organizer moodCode="EVN" classCode=& quot;BATTERY"> <templateId root=" 2.16.840.1.664081.10.20.22.4.1" /> <id nullFlavor="NA&quot ; /> <code codeSystem="local" code="LCMP" displayName="L200.0020" /> <statusCode code="completed " /> <component> <observation moodCode="EVN& quot; classCode="OBS"> <templateId root=" 2.16.840.1.870551.10.20.22.4.2" /> <id nullFlavor="NA& quot; /> <code codeSystem="local" code="300.0400& quot; displayName="FUNGAL CULTURE." /> <statusCode code=& quot;completed" /> <effectiveTime value="729498537037& quot; /> <value unit="mg/dL" xsi:type="PQ" value="0.9" /> <referenceRange> < observationRange> <text>0.7-1.2</text> & lt;/observationRange> </referenceRange></observation> </component> <component> <observation moodCode=& quot;EVN" classCode="OBS"> <templateId root=" 2.16.840.1.032025.10.20.22.4.2" /> <id nullFlavor="NA& quot; /> <code codeSystem="local" code="300.0450& quot; displayName="FUNGAL CULTURE, BLOOD." /> <statusCode code ="completed" /> <effectiveTime value="461771007725 " /> <value unit="RATIO" xsi:type="PQ" value="17"/> <referenceRange> < observationRange> <text>6-26</text> </ observationRange> </referenceRange> </observation&gt ; </component> <component> <observation moodCode ="EVN" classCode="OBS"> <templateId root=& quot;2.16.840.1.267934.10.20.22.4.2" /> <id nullFlavor=&quot ;NA" /> <code codeSystem="local" code=" 300.0100" displayName="NA - Sodium" /> < statusCode code="completed" /> <effectiveTime value=& quot;484920375681" /> <value unit="MEQ/L" xsi:type=&quot ;PQ" value="144" /> <referenceRange> <observationRange> <text>134-144</text> </observationRange> </referenceRange> </ observation> </component> <component> < observation moodCode="EVN" classCode="OBS"> < templateId root="2.16.840.1.009390.10.20.22.4.2" /> <id nullFlavor="NA" /> <code codeSystem="local" code="300.0150" displayName="Potassium" /> < statusCode code="completed" /> <effectiveTime value=& quot;318156586238" /> <value unit="MEQ/L" xsi:type ="PQ" value="4.0" /> <referenceRange> <observationRange> <text>3.6-5</text> </observationRange> </referenceRange> </ observation> </component> <component> < observation moodCode="EVN" classCode="OBS"> < templateId root="2.16.840.1.268889.10.20.22.4.2" /> < id nullFlavor="NA" /> <code codeSystem="local&quot ; code="300.0200"displayName="Chloride" /> < statusCode code="completed" /> <effectiveTime value=" 300958824048" /> <value unit="MEQ/L"xsi:type=&quot ;PQ" value="107" /> <referenceRange> <observationRange> <text>98-107</text> </observationRange> </referenceRange> </ observation> </component> <component> < observation moodCode="EVN" classCode="OBS"> < templateId root="2.16.840.1.422097.10.20.22.4.2" /> < id nullFlavor="NA" /> <code codeSystem="local&quot ; code="300.0250" displayName="CO2 - Carbon Dioxide" /> <statusCode code="completed" /> < effectiveTime value="116452692520" /> <value unit=&quot ;MEQ/L" xsi:type="PQ" value="22" /> < referenceRange> <observationRange> <text> 22-30</text> </observationRange></referenceRange> </observation> </component> <component> & lt;observation moodCode="EVN" classCode="OBS"> & lt;templateId root="2.16.840.1.878669.10.20.22.4.2" /> &lt ;id nullFlavor="NA" /> <code codeSystem="local&quot ; code="300.0300" displayName="Anion Gap" /> &lt ;statusCode code="completed" /> <effectiveTime value=& quot;729407062901" /> <value unit="meq/L" xsi:type ="PQ" value="15" /> <referenceRange> <observationRange> <text>5-15</text> < /observationRange> </referenceRange> </observation& gt; </component> <component> < observationmoodCode="EVN" classCode="OBS"> < templateId root="2.16.840.1.553408.10.20.22.4.2" /> < id nullFlavor="NA" /> <code codeSystem="local&quot ; code="300.0350" displayName="BUN - Blood Urea Nitrogen" /& gt; <statusCode code="completed" /> < effectiveTime value="014737437013" /> <value unit=&quot ;MG/DL" xsi:type="PQ" value="15.0" /> < referenceRange> <observationRange> <text>7-17</text > </observationRange> </referenceRange> </observation> </component> <component> &lt ;observation moodCode="EVN" classCode="OBS"> &lt ;templateId root="2.16.840.1.860683.10.20.22.4.2" /> < id nullFlavor="NA" /> <code codeSystem="local&quot ; code="300.0410" displayName="Glomerular Filtration Rate" / > <statusCode code="completed" /> < effectiveTime value="056007501751" /> <value unit=&quot ;" xsi:type="PQ" value="73" /> < referenceRange> <observationRange> <text> NRG</text> </observationRange> </ referenceRange> </observation> </component> < component> <observation moodCode="EVN" classCode=" OBS"> <templateId root="2.16.840.1.498129.10.20.22.4.2& quot; /> <id nullFlavor="NA" /> <code codeSystem="local" code="300.0500" displayName="Glucose " /> <statusCodecode="completed" /> & lt;effectiveTime value="785400079757" /> <value unit=" MG/DL" xsi:type="PQ" value="115" /> < interpretationCode codeSystem="local" code="*" /> <referenceRange> <observationRange> < text>65-110</text> </observationRange> </ referenceRange> </observation> </component> < component> <observation moodCode="EVN" classCode=" OBS"> <templateId root="2.16.840.1.240035.10.20.22.4.2& quot; /> <idnullFlavor="NA" /> <code codeSystem="local" code="300.2000" displayName=" Osmolality,Calculated" /> <statusCode code="completed& quot; /> <effectiveTime value="032514075591" /> <value unit="MOSM/KG" xsi:type="PQ" value="279 " /> <referenceRange> <observationRange&gt ; <text>261-280</text> </observationRange > </referenceRange> </observation> </ component> <component> <observation moodCode="EVN& quot; classCode="OBS"> <templateId root=" 2.16.840.1.582711.10.20.22.4.2" /> <id nullFlavor="NA& quot; /> <code codeSystem="local" code="300.2200& quot; displayName="Calcium" /> <statusCode code=" completed" /> <effectiveTime value="634805681298" /> <value unit="MG/DL"xsi:type="PQ" value=" 9.2" /> <referenceRange> <observationRange& gt; <text>8.4-10.2</text> </ observationRange> </referenceRange> </observation&gt ; </component> <component> <observation moodCode ="EVN" classCode="OBS"> <templateId root=& quot;2.16.840.1.066110.10.20.22.4.2" /> <id nullFlavor=&quot ;NA" /> <code codeSystem="local" code=" 300.2700" displayName="Bilirubin,Total" /> < statusCode code="completed" /> <effectiveTime value=& quot;461722872573" /> <value unit="MG/DL" xsi:type ="PQ" value="0.40" /> <referenceRange> <observationRange> <text>0.20-1.30</text&gt ; </observationRange> </referenceRange> </ observation> </component> <component> < observation moodCode="EVN" classCode="OBS"> < templateId root="2.16.840.1.730899.10.20.22.4.2" /> < id nullFlavor="NA" /> <code codeSystem="local&quot ; code="300.2975" displayName="Alkaline Phosphatase" /> <statusCode code="completed" /> < effectiveTime value="505287696923" /> <value unit=&quot ;U/L" xsi:type="PQ" value="67" /> < referenceRange> <observationRange> <text> 38-126</text> </observationRange> </ referenceRange> </observation> </component> < component> <observation moodCode="EVN" classCode=" OBS"> <templateId root="2.16.840.1.955003.10.20.22.4.2& quot; /> <id nullFlavor="NA" /> <code codeSystem ="local" code="300.3050" displayName="AST - Aspartate Amino Transfer" /> <statusCode code="completed" /& gt; <effectiveTime value="392697072479" /> &lt ;value unit="U/L" xsi:type="PQ" value="18" /> <referenceRange> <observationRange> <text>14-36</text> </observationRange> & lt;/referenceRange> </observation> </component> <component> <observation moodCode="EVN" classCode=& quot;OBS"> <templateId root=" 2.16.840.1.431726.10.20.22.4.2" /> <id nullFlavor="NA& quot; /> <code codeSystem="local" code="300.3110" displayName="TP - Total Protein" /> <statusCode code=& quot;completed" /> <effectiveTime value="720911786278& quot; /> <value unit="g/dL" xsi:type="PQ" value="7.0" /> <referenceRange> < observationRange> <text>6.3-8.2</text> </ observationRange> </referenceRange> </observation&gt ; </component> <component> <observation moodCode ="EVN" classCode="OBS"> <templateId root=& quot;2.16.840.1.599679.10.20.22.4.2" /> <id nullFlavor=&quot ;NA" /> <code codeSystem="local" code=" 300.3120" displayName="Albumin Level" /> < statusCode code="completed" /> <effectiveTime value=& quot;384015050344" /> <value unit="g/dL" xsi:type= "PQ" value="4.3" /> <referenceRange> <observationRange> <text>3.5-5.0</text> </observationRange> </referenceRange></ observation> </component> <component> < observation moodCode="EVN" classCode="OBS"> < templateId root="2.16.840.1.098412.10.20.22.4.2" /> < id nullFlavor="NA" /> <code codeSystem="local&quot ; code="300.3130" displayName="Globulin" /> < statusCode code="completed" /> <effectiveTime value=& quot;048594343877" /> <value unit="G/DL" xsi:type=& quot;PQ" value="2.7" /> <referenceRange> < observationRange> <text>2.4-3.6</text> & lt;/observationRange> </referenceRange> </ observation> </component> <component> < observation moodCode="EVN" classCode="OBS"> < templateId root="2.16.840.1.250773.10..22.4.2" /> < id nullFlavor="NA" /> <code codeSystem="local&quot ; code="300.3140" displayName="Albumin/Globulin Ratio" /&gt ; <statusCode code="completed" /> < effectiveTime value="966768461033" /> <value unit="RATIO " xsi:type="PQ" value="1.6" /> < referenceRange> <observationRange> <text> 1.1-2.2</text> </observationRange> </ referenceRange> </observation> </component> < component> <observation moodCode="EVN" classCode=" OBS"> <templateId root="2.16.840.1.333183.10.20.22.4.2& quot; /> <id nullFlavor="NA" /> <code codeSystem="local" code="300.0095" displayName=" LICTERUS" /> <statusCode code="completed" /> <effectiveTime value="776088872138" /> < value unit="" xsi:type="PQ" value="< 2" /& gt; <referenceRange> <observationRange> <text>0-7</text> </observationRange> </referenceRange> </observation> </component> <component> <observation moodCode="EVN" classCode= "OBS"> <templateId root=" 2.16.840.1.215538.10.20.22.4.2" /> <id nullFlavor="NA& quot; /> <code codeSystem="local" code="300.0096& quot; displayName="LHEMOLYSIS" /> <statusCode code=& quot;completed" /> <effectiveTime value="437326070803" /> <value unit="" xsi:type="PQ" value="& amp;lt; 15" /> <referenceRange> < observationRange> <text>0-25</text> </ observationRange> </referenceRange> </observation&gt ; </component> <component> <observation moodCode ="EVN" classCode="OBS"> <templateId root=& quot;2.16.840.1.458921.10.20.22.4.2" /> <id nullFlavor=&quot ;NA" /> <code codeSystem="local" code=" 300.0097" displayName="LTURBIDITY" /> <statusCode code="completed" /> <effectiveTime value=" 527754232717" /> <value unit="" xsi:type="PQ& quot; value="< 20" /> <referenceRange> <observationRange> <text>0-20</text> </observationRange> </referenceRange> </ observation> </component> <component><observation moodCode="EVN" classCode="OBS"> <templateId root="2.16.840.1.971509.10.20.22.4.2" /> <id nullFlavor ="NA" /> <code codeSystem="local" code=" 300.3105" displayName="LALTV" /> <statusCode code= "completed" /> <effectiveTime value="409075918326& quot; /> <value unit="U/L" xsi:type="PQ" value="23" /> <referenceRange> < observationRange> <text>1-35</text> </ observationRange> </referenceRange> </observation&gt ; </component> </organizer> </entry> <entry> <organizer moodCode="EVN" classCode="BATTERY"> <templateId root="2.16.840.1.448428.10.20.22.4.1" /> < id nullFlavor="NA" /> <code codeSystem="local" code="MCUU" displayName="M120.0100" /> < statusCode code="completed" /> <component> < observation moodCode="EVN" classCode="OBS"> < templateId root="2.16.840.1.915892.10.20.22.4.2" /> < id nullFlavor="NA" /> <code codeSystem="local&quot ; code="120.0100" displayName="Urine Culture" /> <statusCode code="completed" /> <effectiveTime value="632210466239" /> <value unit="" xsi: type="PQ" value=" -No further testingwill be performed" /& gt; <referenceRange> <observationRange> <text>NRG</text> </observationRange> &lt ;/referenceRange> </observation> </component> < /organizer> </entry> <entry> <organizer moodCode=" EVN" classCode="BATTERY"> <templateId root=" 2.16.840.1.582049.10.20.22.4.1" /> <id nullFlavor="NA&quot ; /> <code codeSystem="local" code="LCBC" displayName="L100.0050" /> <statusCode code="completed " /> <component> <observation moodCode="EVN& quot; classCode="OBS"> <templateId root=" 2.16.840.1.612983.10.20.22.4.2" /> <id nullFlavor="NA& quot; /> <code codeSystem="local" code="100.0150& quot; displayName="WBC - WHITE BLOOD COUNT" /> < statusCode code="completed" /> <effectiveTime value=& quot;091716521872" /> <value unit="T/MM3" xsi:type ="PQ" value="15.9" /> <interpretationCode codeSystem="local" code="*" /> < referenceRange> <observationRange> <text> 4.5-11.0</text> </observationRange> </ referenceRange></observation> </component> < component> <observation moodCode="EVN" classCode=" OBS"> <templateId root="2.16.840.1.452466.10.20.22.4.2& quot; /> <id nullFlavor="NA" /> <code codeSystem="local" code="100.0250" displayName="RED BLOOD COUNT" /> <statusCode code="completed" /&gt ; <effectiveTime value="136104304713" /> < value unit="M/MM3" xsi:type="PQ" value="4.96" /&gt ; <referenceRange> <observationRange> <text>4.00-5.20</text> </observationRange> </referenceRange> </observation> </component&gt ; <component> <observation moodCode="EVN" classCode="OBS"> <templateId root=" 2.16.840.1.595001.10.20.22.4.2" /> <id nullFlavor="NA& quot; /> <code codeSystem="local" code="100.0300& quot; displayName="HGB - HEMOGLOBIN" /> <statusCode code="completed" /> <effectiveTime value=" 974517392870" /> <value unit="GM/DL" xsi:type=&quot ;PQ" value="13.6" /> <referenceRange> < observationRange> <text>12-16</text> < /observationRange> </referenceRange> </observation& gt; </component> <component> <observation moodCode="EVN" classCode="OBS"> <templateId root="2.16.840.1.850322.10.20.22.4.2" /> <id nullFlavor ="NA" /> <code codeSystem="local" code=" 100.0400" displayName="HCT - HEMATOCRIT" /> < statusCode code="completed" /> <effectiveTime value=& quot;255837797419" /> <value unit="%" xsi: type="PQ" value="41.5" /> <referenceRange&gt ; <observationRange> <text>36-46</text&gt ; </observationRange> </referenceRange> < /observation></component> <component> < observation moodCode="EVN" classCode="OBS"> < templateId root="2.16.840.1.879062.10.20.22.4.2" /> <id nullFlavor="NA" /> <code codeSystem="local" code="100.0550" displayName="MEAN CORPUSCULAR VOLUME" /> <statusCode code="completed" /> < effectiveTime value="351316846625" /> <value unit=&quot ;UM3" xsi:type="PQ" value="83.7" /> < referenceRange> <observationRange> <text> 80-100</text> </observationRange> </referenceRange&gt ; </observation> </component> <component> <observation moodCode="EVN" classCode="OBS"> <templateId root="2.16.840.1.328686.10..22.4.2" />< id nullFlavor="NA" /> <code codeSystem="local&quot ; code="100.0600" displayName="MEAN CORPUSCULAR HGB" /> <statusCode code="completed" /> < effectiveTime value="422872002312" /> <valueunit=" UUG" xsi:type="PQ" value="27.4" /> < referenceRange> <observationRange> <text> 26-34</text> </observationRange> </ referenceRange> </observation> </component> < component> <observation moodCode="EVN" classCode=" OBS"> <templateId root="2.16.840.1.964379.10..22.4.2& quot; /> <id nullFlavor="NA" /> <code codeSystem="local" code="100.0650" displayName="MEAN CORPUSCULAR HGB CONC(MCHC" /> <statusCode code=" completed" /> <effectiveTime value="[id number]" /> <value unit="GM/DL" xsi:type="PQ" value=& quot;32.8" /> <referenceRange> < observationRange> <text>31-37</text> < /observationRange> </referenceRange> </observation& gt; </component> <component> <observation moodCode="EVN" classCode="OBS"> <templateId root="[id number]" /> <id nullFlavor ="NA" /> <code codeSystem="local" code=" 100.0750" displayName="RDW STANDARD DEVIATION" /> &lt ;statusCode code="completed" /> <effectiveTime value=& quot;667474670133" /> <value unit="FL" xsi:type=& quot;PQ" value="43.7" /> <referenceRange> <observationRange> <text>36.9-50.2</text> </observationRange> </referenceRange> &lt ;/observation> </component> <component> < observation moodCode="EVN" classCode="OBS"> < templateId root="2.16.840.1.911907.10.20.22.4.2" /> < id nullFlavor="NA" /> <code codeSystem="local&quot ; code="100.0850" displayName="PLT - PLATELET COUNT" /> <statusCode code="completed" /> < effectiveTime value="542749694943" /> <value unit=&quot ;T/MM3" xsi:type="PQ" value="345" /> < referenceRange> <observationRange> <text>130- 400</text> </observationRange> </ referenceRange> </observation> </component> < component> <observation moodCode="EVN" classCode=" OBS"> <templateId root="2.16.840.1.402933.10.20.22.4.2& quot; /> <id nullFlavor="NA" /> <code codeSystem="local" code="100.0950" displayName="MEAN PLATELET VOLUME" /> <statusCode code="completed" / > <effectiveTime value="019760468974" /> & lt;value unit="UM3" xsi:type="PQ" value="9.8" /&gt ; <referenceRange> <observationRange> <text>9.4-12.4</text> </observationRange> </referenceRange> </observation> </component&gt ; </organizer> </entry> <entry> <organizer moodCode ="EVN" classCode="BATTERY"> <templateId root=& quot;2.16.840.1.930885.10.20.22.4.1" /> <id nullFlavor="NA& quot; /> <code codeSystem="local" code="LLDH" displayName="L200.1855" /> <statusCode code="completed " /> <component> <observation moodCode="EVN& quot; classCode="OBS"> <templateId root=" 2.16.840.1.977213.10.20.22.4.2" /> <id nullFlavor="NA& quot; /> <code codeSystem="local" code="300.3250& quot; displayName="LDH - Lactate Dehydrogenase" /> < statusCode code="completed" /> <effectiveTime value=& quot;128405780805" /> <value unit="U/L" xsi:type=& quot;PQ" value="362" /> <referenceRange>< observationRange> <text>313-748</text> & lt;/observationRange> </referenceRange> </ observation> </component> </organizer> </entry> & lt;entry> <organizer moodCode="EVN" classCode="BATTERY& quot;> <templateId root="2.16.840.1.683479.10.20.22.4.1" /& gt; <id nullFlavor="NA" /> <code codeSystem=" local" code="LDIFFM" displayName="L100.0105" /> <statusCode code="completed" /> <component> <observation moodCode="EVN" classCode="OBS"> < templateId root="2.16.840.1.719122.10.20.22.4.2" /> < id nullFlavor="NA" /> <code codeSystem="local&quot ; code="100.1650" displayName="NEUTROPHILS % (MANUAL)& quot; /> <statusCode code="completed" /> & lt;effectiveTime value="531935532729" /> <value unit=& quot;%" xsi:type="PQ" value="89.0" /> <interpretationCode codeSystem="local" code="*" /&gt ; <referenceRange> <observationRange> <text>33-66</text> </observationRange> </referenceRange> </observation> </component> <component> <observation moodCode="EVN" classCode= "OBS"> <templateId root=" 2.16.840.1.491062.10.20.22.4.2" /> <id nullFlavor="NA& quot; /> <code codeSystem="local" code="100.1850& quot; displayName="LYMPHOCYTES % (MANUAL)" /> < statusCode code="completed" /> <effectiveTime value=& quot;600445705331" /> <value unit="%" xsi: type="PQ" value="10.0" /> < interpretationCode codeSystem="local" code="*" /> <referenceRange> <observationRange> < text>23-45</text> </observationRange> </ referenceRange> </observation> </component> < component> <observation moodCode="EVN" classCode=" OBS"> <templateId root="2.16.840.1.114616.10..22.4.2& quot; /> <id nullFlavor="NA" /> <code codeSystem="local" code="100.2200" displayName=" METAMYELOCYTES %" /> <statusCode code=" completed" /> <effectiveTime value="164315943613" /> <value unit="%" xsi:type="PQ" value="1.0" /> <interpretationCode codeSystem=" local" code="*" /> <referenceRange> <observationRange> <text>0-0</text> < /observationRange> </referenceRange> </observation& gt; </component> <component> <observation moodCode="EVN" classCode="OBS"> <templateId root="2.16.840.1.260281.10.20.22.4.2" /> <id nullFlavor ="NA" /> <code codeSystem="local" code=" 100.2400" displayName="PROLYMPHOCYTES %" /> & lt;statusCode code="completed" /> <effectiveTime value= "637051337625" /> <value unit="T/MM3" xsi: type="PQ" value="14.2" /> < interpretationCode codeSystem="local" code="*" /> <referenceRange> <observationRange> < text>1.8-7.7</text> </observationRange> </ referenceRange> </observation> </component> < component> <observation moodCode="EVN" classCode=" OBS"> <templateId root="2.16.840.1.787684.10.20.22.4.2& quot; /> <id nullFlavor="NA" /> <code codeSystem="local" code="100.2900" displayName=" METAMYELOCYTES #" /> <statusCode code="completed" /> <effectiveTime value="534826928848" /> & lt;value unit="T/MM3" xsi:type="PQ" value="0.2" /& gt; <referenceRange> <observationRange> <text>NRG</text> </observationRange> </referenceRange> </observation> </component> <component> <observation moodCode="EVN" classCode= "OBS"> <templateId root=" 2.16.840.1.019604.10.20.22.4.2" /> <id nullFlavor="NA& quot; /> <code codeSystem="local" code="100.2550& quot; displayName="Lymphocytes # (Manual)" /> < statusCode code="completed" /> <effectiveTime value=& quot;782244455964" /> <value unit="T/MM3" xsi:type ="PQ" value="1.6" /> <referenceRange> <observationRange> <text>1-4.8</text> </observationRange> </referenceRange> </ observation> </component> <component> < observation moodCode="EVN" classCode="OBS"> < templateId root="2.16.840.1.952078.10.20.22.4.2" /> < id nullFlavor="NA" /> <code codeSystem="local&quot ; code="100.4565" displayName="LRBCMOR" /> < statusCode code="completed" /> <effectiveTime value=& quot;618829712958" /> <value unit="" xsi:type=& quot;PQ" value="Normal" /> <referenceRange> <observationRange> <text>NRG</text> </observationRange> </referenceRange> </ observation> </component> </organizer> </entry> & lt;entry> <organizer moodCode="EVN" classCode="BATTERY& quot;> <templateId root="2.16.840.1.369964.10.20.22.4.1" /& gt; <id nullFlavor="NA" /> <code codeSystem=" local" code="LTSH" displayName="L200.3850" /> & lt;statusCode code="completed" /> <component> &lt ;observation moodCode="EVN" classCode="OBS"> &lt ;templateId root="2.16.840.1.102341.10.20.22.4.2" /> < id nullFlavor="NA" /> <code codeSystem="local&quot ; code="300.5500" displayName="TSH - Thyroid Stim Hormone" / > <statusCode code="completed" /> < effectiveTime value="073114687548" /> <value unit=&quot ;mIU/L" xsi:type="PQ" value="0.96" /> < referenceRange> <observationRange> <text> 0.47-4.68</text> </observationRange> </ referenceRange> </observation> </component> </ organizer> </entry> <entry> <organizer moodCode="EVN " classCode="BATTERY"> <templateId root=" 2.16.840.1.116127.10.20.22.4.1"/> <id nullFlavor="NA" /> <code codeSystem="local" code="LESR-A" displayName="L750.8263" /> <statusCode code="completed " /> <component> <observation moodCode="EVN& quot; classCode="OBS"> <templateId root=" 2.16.840.1.358517.10.20.22.4.2" /> <id nullFlavor="NA& quot; /> <code codeSystem="local" code="903.9025& quot; displayName="ESR - Sedimentation Rate - AMS" /> < statusCode code="completed" /> <effectiveTime value=& quot;441624618620" /> <value unit="mm/h" xsi:type= "PQ" value="5" /> <referenceRange> <observationRange> <text>0-23</text> </observationRange> </referenceRange> </ observation> </component> </organizer> </entry> & lt;entry> <organizer moodCode="EVN"classCode="BATTERY& quot;> <templateId root="2.16.840.1.210126.10.20.22.4.1" /& gt; <id nullFlavor="NA" /> <code codeSystem=" local" code="LT4F" displayName="L200.3600" /> & lt;statusCode code="completed" /> <component> &lt ;observation moodCode="EVN" classCode="OBS"> &lt ;templateId root="2.16.840.1.552076.10.20.22.4.2" /> < idnullFlavor="NA" /> <code codeSystem="local&quot ; code="300.5250" displayName="Free T4 (Free Thyroxine)-Batch& quot; /> <statusCode code="completed" /> & lt;effectiveTime value="248935955138" /> <value unit=& quot;ng/dL" xsi:type="PQ" value="1.85" /> & lt;referenceRange> <observationRange> <text& gt;0.78-2.19</text> </observationRange> </ referenceRange> </observation> </component> </ organizer> </entry> <entry> <organizer moodCode="EVN " classCode="BATTERY"> <templateId root=" 2.16.840.1.158521.10.20.22.4.1" /> <id nullFlavor="NA&quot ; /> <code codeSystem="local" code="LT3F-A" displayName="L908.3170" /> <statusCode code="completed " /> <component> <observation moodCode="EVN& quot; classCode="OBS"> <templateId root=" 2.16.840.1.075026.10.20.22.4.2" /> <id nullFlavor="NA" /& gt; <code codeSystem="local" code="908.3170" displayName="Free T3 - AMS" /> <statusCode code=" completed" /> <effectiveTime value="186653521656" /> <value unit="pg/mL" xsi:type="PQ" value=& quot;2.1" /> <referenceRange> < observationRange> <text>1.7-3.7</text> & lt;/observationRange> </referenceRange> </ observation> </component> </organizer> </entry> & lt;entry> <organizer moodCode="EVN" classCode="BATTERY& quot;> <templateId root="2.16.840.1.545992.10.20.22.4.1" /& gt; <id nullFlavor="NA" /> <code codeSystem=" local" code="LCBC" displayName="L100.0050" /> & lt;statusCode code="completed" /> <component> &lt ;observation moodCode="EVN" classCode="OBS"> &lt ;templateId root="2.16.840.1.206933.10.20.22.4.2" /> < id nullFlavor="NA" /> <code codeSystem="local&quot ; code="100.0150" displayName="WBC - WHITE BLOOD COUNT" /&gt ; <statusCode code="completed" /> < effectiveTime value="636482633523" /> <value unit=&quot ;T/MM3" xsi:type="PQ" value="20.8" /> < interpretationCode codeSystem="local" code="*" /> <referenceRange> <observationRange> < text>4.5-11.0</text> </observationRange> < /referenceRange> </observation> </component> &lt ;component> <observation moodCode="EVN" classCode=" OBS"> <templateId root="2.16.840.1.694209.10.20.22.4.2& quot; /> <id nullFlavor="NA" /> <code codeSystem="local" code="100.0250" displayName="RED BLOOD COUNT" /> <statusCode code="completed" /&gt ; <effectiveTime value="911569703189" /> < value unit="M/MM3" xsi:type="PQ" value="4.90" /&gt ; <referenceRange> <observationRange> <text>4.00-5.20</text> </observationRange> </referenceRange> </observation> </component> <component> <observation moodCode="EVN" classCode= "OBS"> <templateId root=" 2.16.840.1.892536.10.20.22.4.2" /> <id nullFlavor="NA& quot;/> <code codeSystem="local" code="100.0300& quot; displayName="HGB- HEMOGLOBIN" /> <statusCode code ="completed" /> <effectiveTime value="130821633525 " /> <value unit="GM/DL" xsi:type="PQ" value="13.6" /> <referenceRange> < observationRange> <text>12-16</text> < /observationRange> </referenceRange> </observation& gt; </component> <component><observation moodCode=&quot ;EVN" classCode="OBS"> <templateId root=" 2.16.840.1.910325.10.20.22.4.2" /> <id nullFlavor="NA& quot; /> <code codeSystem="local" code="100.0400" displayName="HCT - HEMATOCRIT" /> <statusCode code=& quot;completed" /> <effectiveTime value="951170573028& quot; /> <value unit="%" xsi:type="PQ&quot ; value="40.9" /> <referenceRange> < observationRange> <text>36-46</text> </ observationRange> </referenceRange> </observation&gt ; </component> <component> <observation moodCode ="EVN" classCode="OBS"> <templateId root=& quot;2.16.840.1.379643.10.20.22.4.2" /> <id nullFlavor=&quot ;NA" /> <code codeSystem="local" code=" 100.0550" displayName="MEAN CORPUSCULAR VOLUME" /> & lt;statusCode code="completed" /> <effectiveTime value= "329297781417" /> <value unit="UM3" xsi:type= "PQ" value="83.5" /> <referenceRange> <observationRange> <text>80-100</text> </observationRange> </referenceRange> </ observation> </component> <component> < observation moodCode="EVN" classCode="OBS"> < templateId root="2.16.840.1.264580.10..22.4.2" /> < id nullFlavor="NA" /> <code codeSystem="local&quot ; code="100.0600" displayName="MEAN CORPUSCULAR HGB"/> <statusCode code="completed" /> < effectiveTime value="625401307060" /> <value unit=&quot ;UUG" xsi:type="PQ" value="27.8" /> < referenceRange> <observationRange> <text> 26-34</text> </observationRange> </ referenceRange> </observation> </component> < component> <observation moodCode="EVN" classCode=" OBS"> <templateId root="2.16.840.1.180680.10..22.4.2& quot; /> <id nullFlavor="NA" /> <code codeSystem="local" code="100.0650" displayName="MEAN CORPUSCULAR HGB CONC(MCHC" /> <statusCode code=" completed" /> <effectiveTime value="344246699154" /> <value unit="GM/DL" xsi:type="PQ" value=& quot;33.3" /> <referenceRange> < observationRange> <text>31-37</text> </ observationRange> </referenceRange> </observation&gt ; </component> <component> <observation moodCode ="EVN" classCode="OBS"> <templateId root=& quot;2.16.840.1.053268.10.20.22.4.2" /> <id nullFlavor=&quot ;NA" /> <code codeSystem="local" code=" 100.0750" displayName="RDW STANDARD DEVIATION" /> &lt ;statusCode code="completed" /> <effectiveTime value=& quot;333022361695" /> <value unit="FL" xsi:type=& quot;PQ" value="43.2" /> <referenceRange> <observationRange> <text>36.9-50.2</text> </observationRange> </referenceRange> </ observation> </component> <component> < observation moodCode="EVN" classCode="OBS"> < templateId root="2.16.840.1.495701.10.20.22.4.2" /> < id nullFlavor="NA" /> <code codeSystem="local&quot ; code="100.0850" displayName="PLT - PLATELET COUNT" /> <statusCode code="completed" /> <effectiveTime value="352502089402" /> <value unit="T/MM3" xsi:type="PQ" value="316" /> <referenceRange& gt; <observationRange> <text>130-400</ text> </observationRange> </referenceRange> </observation> </component> <component> <observation moodCode="EVN" classCode="OBS"> <templateId root="2.16.840.1.695541.10.20.22.4.2" /> <id nullFlavor="NA" /> <code codeSystem=" local" code="100.0950" displayName="MEAN PLATELET VOLUME& quot; /> <statusCode code="completed" /> & lt;effectiveTime value="687217212278" /> <value unit=& quot;UM3" xsi:type="PQ" value="9.1" /> < interpretationCode codeSystem="local" code="*" /> <referenceRange> <observationRange> < text>9.4-12.4</text> </observationRange> </ referenceRange> </observation> </component> </ organizer> </entry> <entry> <organizer moodCode="EVN " classCode="BATTERY"> <templateId root=" 2.16.840.1.676839.10.20.22.4.1" /> <id nullFlavor="NA&quot ; /> <code codeSystem="local" code="LDIFFM" displayName="L100.0105" /> <statusCode code="completed " /> <component> <observation moodCode="EVN& quot; classCode="OBS"> <templateId root=" 2.16.840.1.712656.10.20.22.4.2" /> <id nullFlavor="NA& quot; /> <code codeSystem="local" code="100.1650& quot; displayName="NEUTROPHILS % (MANUAL)" /> < statusCode code="completed" /> <effectiveTime value=& quot;751653065834" /> <value unit="%" xsi: type="PQ" value="69.0" /> <interpretationCode codeSystem="local" code="*" /> < referenceRange> <observationRange> <text> 33-66</text> </observationRange> </referenceRange& gt; </observation> </component> <component> <observation moodCode="EVN" classCode="OBS"> <templateId root="2.16.840.1.503843.10.20.22.4.2" /> & lt;id nullFlavor="NA" /> <code codeSystem="local& quot; code="100.1850" displayName="LYMPHOCYTES % (MANUAL) " /> <statusCode code="completed" /> & lt;effectiveTime value="474453026040" /> <value unit="&amp ;#37;" xsi:type="PQ" value="27.0" />< referenceRange> <observationRange> <text> 23-45</text> </observationRange> </ referenceRange> </observation> </component> < component> <observation moodCode="EVN" classCode=" OBS"> <templateId root="2.16.840.1.560243.10.20.22.4.2& quot; /> <id nullFlavor="NA" /> <code codeSystem="local" code="100.1950" displayName=" MONOCYTES % (MANUAL)" /> <statusCode code=" completed" /> <effectiveTime value="054091623880" /> <value unit="%" xsi:type="PQ" value=& quot;2.0" /> <referenceRange> <observationRange& gt; <text>0-9.0</text> </observationRange > </referenceRange> </observation> </ component> <component> <observation moodCode="EVN& quot; classCode="OBS"> <templateId root=" 2.16.840.1.038853.10.20.22.4.2" /> <id nullFlavor="NA& quot; /> <code codeSystem="local" code="100.0& quot; displayName="EOSINOPHILS % (MANUAL)" /> < statusCode code="completed" /> <effectiveTime value=& quot;222742455019" /> <value unit="%" xsi: type="PQ" value="1.0" /> <referenceRange> <observationRange> <text>0-4</text> </observationRange> </referenceRange> &lt ;/observation> </component> <component> < observation moodCode="EVN" classCode="OBS"> < templateId root="2.16.840.1.429459.10.20.22.4.2" /> < id nullFlavor="NA" /> <code codeSystem="local&quot ; code="100.0" displayName="METAMYELOCYTES %" /& gt; <statusCode code="completed" /> < effectiveTime value="731366767326" /> <value unit=&quot ;%" xsi:type="PQ" value="1.0" /> < interpretationCode codeSystem="local" code="*" /> <referenceRange> <observationRange> < text>0-0</text> </observationRange> </ referenceRange> </observation> </component> < component> <observation moodCode="EVN" classCode=" OBS"> <templateId root="2.16.840.1.850809.10.20.22.4.2& quot; /><id nullFlavor="NA" /> <code codeSystem=& quot;local" code="100.2400" displayName="PROLYMPHOCYTES &amp ;#37;" /> <statusCode code="completed" /> <effectiveTime value="856597446522" /> <value unit="T/MM3" xsi:type="PQ" value="14.4" /> <interpretationCode codeSystem="local" code="*" /& gt; <referenceRange> <observationRange> <text>1.8-7.7</text> </observationRange> & lt;/referenceRange> </observation> </component> &lt ;component> <observation moodCode="EVN" classCode=" OBS"> <templateId root="2.16.840.1.711277.10.20.22.4.2& quot; /> <id nullFlavor="NA" /> <code codeSystem="local" code="100.2650" displayName=" NEUTROPHILS # (MANUAL)" /> <statusCode code="completed& quot; /> <effectiveTime value="373305133421" /> <value unit="T/MM3" xsi:type="PQ" value="0.4& quot; /> <referenceRange> <observationRange> <text>0-0.8</text> </observationRange> </referenceRange> </observation> </component> <component> <observation moodCode="EVN" classCode ="OBS"> <templateId root="2.16.840.1.427539.10.20.22.4.2& quot; /> <id nullFlavor="NA" /> <code codeSystem="local" code="100.2750" displayName=" MONOCYTES # (MANUAL)" /> <statusCode code="completed& quot; /> <effectiveTime value="221637767987" /> <value unit="T/MM3" xsi:type="PQ" value="0.2" / > <referenceRange> <observationRange> <text>0-0.5</text> </observationRange> </referenceRange> </observation> </component> <component> <observation moodCode="EVN" classCode="OBS"> <templateId root=" 2.16.840.1.223041.10.20.22.4.2" /> <id nullFlavor="NA& quot; /> <code codeSystem="local" code="100.2900& quot; displayName="METAMYELOCYTES #" /> <statusCode code="completed" /> <effectiveTime value=" 406708762254" /> <value unit="T/MM3" xsi:type=& quot;PQ" value="0.2" /> <referenceRange> <observationRange> <text>NRG</text> </observationRange> </referenceRange> </ observation> </component> <component><observation moodCode="EVN" classCode="OBS"> <templateId root="2.16.840.1.393464.10.20.22.4.2" /> <id nullFlavor ="NA" /> <code codeSystem="local" code=" 100.2550" displayName="Lymphocytes # (Manual)" /> &lt ;statusCode code="completed" /> <effectiveTime value=& quot;965536495593" /> <value unit="T/MM3" xsi:type ="PQ" value="5.6" /> <interpretationCode codeSystem="local" code="*" /> < referenceRange> <observationRange> <text> 1-4.8</text> </observationRange> </ referenceRange> </observation> </component> < component> <observation moodCode="EVN" classCode=" OBS"> <templateId root="2.16.840.1.314559.10.20.22.4.2& quot; /> <id nullFlavor="NA" /> <code codeSystem="local" code="100.4565" displayName="LRBCMOR " /> <statusCode code="completed" /> & lt;effectiveTime value="481855561727" /> <value unit=& quot;" xsi:type="PQ" value="Normal" /> < referenceRange> <observationRange> <text> NRG</text> </observationRange> </ referenceRange> </observation> </component> </ organizer> </entry> <entry> <organizer moodCode="EVN " classCode="BATTERY"> <templateId root=" 2.16.840.1.757149.10.20.22.4.1" /> <id nullFlavor="NA&quot ; /> <code codeSystem="local" code="LCMP" displayName="L200.0020" /> <statusCode code="completed " /> <component> <observation moodCode="EVN& quot; classCode="OBS"> <templateId root=" 2.16.840.1.742367.10.20.22.4.2" /> <id nullFlavor="NA& quot; /> <code codeSystem="local" code="300.0400& quot; displayName="FUNGAL CULTURE." /> <statusCode code ="completed" /> <effectiveTime value="687944310874 " /> <value unit="mg/dL" xsi:type="PQ" value="1.0" /> <referenceRange> < observationRange> <text>0.7-1.2</text> </ observationRange> </referenceRange> </observation&gt ; </component> <component> <observation moodCode ="EVN" classCode="OBS"> <templateId root=& quot;2.16.840.1.395376.10.20.22.4.2" /> <id nullFlavor="NA&quot ; /> <code codeSystem="local" code="300.0450&quot ; displayName="FUNGAL CULTURE, BLOOD." /> <statusCode code="completed" /> <effectiveTime value=" 693651509519" /> <value unit="RATIO" xsi:type=& quot;PQ" value="13" /> <referenceRange> <observationRange> <text>6-26</text> </observationRange> </referenceRange> </ observation> </component> <component> < observation moodCode="EVN" classCode="OBS"> < templateId root="2.16.840.1.401935.10.20.22.4.2" /> < idnullFlavor="NA" /> <code codeSystem="local&quot ; code="300.0100" displayName="NA - Sodium" /> & lt;statusCode code="completed" /> <effectiveTime value= "041392274388" /> <value unit="MEQ/L" xsi: type="PQ" value="144" /> <referenceRange> <observationRange> <text>134-144</text> </observationRange> </referenceRange> </ observation> </component> <component> < observation moodCode="EVN" classCode="OBS"> < templateId root="2.16.840.1.172590.10.20.22.4.2" /> < id nullFlavor="NA" /> <code codeSystem="local&quot ; code="300.0150" displayName="Potassium" /> &lt ;statusCode code="completed" /> <effectiveTime value=& quot;559632384996" /> <value unit="MEQ/L" xsi:type ="PQ" value="3.6" /> <referenceRange> <observationRange> <text>3.6-5</text> </observationRange> </referenceRange> </ observation> </component> <component> < observation moodCode="EVN" classCode="OBS"> < templateId root="2.16.840.1.718218.10.20.22.4.2" /> < id nullFlavor="NA" /> <code codeSystem="local" code="300.0200" displayName="Chloride" /> < statusCode code="completed" /> <effectiveTime value=& quot;281180249080" /> <value unit="MEQ/L" xsi:type ="PQ" value="105" /> <referenceRange> <observationRange> <text>98-107</text> &lt ;/observationRange> </referenceRange> </observation& gt; </component> <component> < observationmoodCode="EVN" classCode="OBS"> < templateId root="2.16.840.1.825684.10.20.22.4.2" /> < id nullFlavor="NA" /> <code codeSystem="local&quot ; code="300.0250" displayName="CO2 - Carbon Dioxide" /> <statusCode code="completed" /> < effectiveTime value="652292783343" /> <value unit=&quot ;MEQ/L" xsi:type="PQ" value="28" /> < referenceRange> <observationRange> <text> 22-30</text> </observationRange> </ referenceRange> </observation> </component> < component> <observation moodCode="EVN" classCode=" OBS"> <templateId root="2.16.840.1.231483.10.20.22.4.2& quot; /> <id nullFlavor="NA" /> <code codeSystem="local" code="300.0300" displayName="Anion Gap" /> <statusCode code="completed" /> <effectiveTime value="680737400711" /> <value unit="meq/L" xsi:type="PQ" value="11" /> < referenceRange> <observationRange> <text> 5-15</text> </observationRange> </ referenceRange> </observation> </component> < component> <observation moodCode="EVN" classCode=" OBS"> <templateId root="[id number]& quot; /> <id nullFlavor="NA" /> <code codeSystem="local" code="300.0350" displayName="BUN - Blood Urea Nitrogen" /> <statusCode code="completed& quot; /> <effectiveTime value="[id number]" /> <value unit="MG/DL" xsi:type="PQ" value="13.0&quot ; /><referenceRange> <observationRange> & lt;text>7-17</text> </observationRange> </ referenceRange> </observation> </component> < component> <observation moodCode="EVN" classCode=" OBS"> <templateId root="[id number]& quot; /> <id nullFlavor="NA" /> <code codeSystem="local" code="300.0410" displayName=" Glomerular Filtration Rate" /> <statusCode code=" completed" /> <effectiveTime value="[id number]" /> <value unit="" xsi:type="PQ" value="65&quot ; /> <referenceRange> <observationRange> <text>NRG</text> </observationRange> </ referenceRange> </observation> </component> < component> <observation moodCode="EVN" classCode=" OBS"> <templateId root="2.16.840.1.756173.10.20.22.4.2& quot; /> <id nullFlavor="NA" /> <code codeSystem="local" code="300.0500" displayName="Glucose " /> <statusCode code="completed" /> & lt;effectiveTime value="683963022215" /> <value unit=& quot;MG/DL" xsi:type="PQ" value="113" /> & lt;interpretationCode codeSystem="local" code="*" /> <referenceRange> <observationRange> & lt;text>65-110</text> </observationRange> </ referenceRange> </observation> </component> < component> <observation moodCode="EVN" classCode="OBS "> <templateId root="2.16.840.1.779190.10.20.22.4.2& quot; /> <id nullFlavor="NA" /> <code codeSystem="local" code="300.2000" displayName=" Osmolality,Calculated" /> <statusCode code="completed& quot; /> <effectiveTime value="101792069959" /> <value unit="MOSM/KG" xsi:type="PQ" value="278 " /> <referenceRange> <observationRange&gt ; <text>261-280</text> </observationRange > </referenceRange> </observation> </ component> <component> <observation moodCode="EVN&quot ; classCode="OBS"> <templateId root=" 2.16.840.1.142059.10.20.22.4.2" /> <id nullFlavor="NA& quot; /> <code codeSystem="local" code="300.2200& quot; displayName="Calcium" /> <statusCode code=" completed" /> <effectiveTime value="659175897084" /> <value unit="MG/DL" xsi:type="PQ" value=& quot;9.3" /> <referenceRange> < observationRange> <text>8.4-10.2</text> </ observationRange> </referenceRange> </observation&gt ; </component> <component> <observation moodCode ="EVN" classCode="OBS"> <templateId root=& quot;2.16.840.1.515945.10.20.22.4.2" /> <id nullFlavor=&quot ;NA" /> <code codeSystem="local" code=" 300.2700" displayName="Bilirubin,Total" /> < statusCode code="completed" /> <effectiveTime value=& quot;564637947468" /> <value unit="MG/DL" xsi:type ="PQ" value="0.40" /> <referenceRange> <observationRange> <text>0.20-1.30</text&gt ; </observationRange> </referenceRange> </ observation> </component> <component> < observation moodCode="EVN" classCode="OBS"> < templateId root="2.16.840.1.931864.10.20.22.4.2" /> < id nullFlavor="NA" /> <code codeSystem="local&quot ; code="300.2975" displayName="Alkaline Phosphatase" /> <statusCode code="completed" /> <effectiveTime value="644577363055" /> <value unit="U/L" xsi :type="PQ" value="72"/> <referenceRange> <observationRange> <text>38-126</text&gt ; </observationRange> </referenceRange> & lt;/observation> </component> <component> < observation moodCode="EVN" classCode="OBS"> < templateId root="2.16.840.1.745895.10.20.22.4.2" /> < id nullFlavor="NA" /> <code codeSystem="local&quot ; code="300.3050" displayName="AST - Aspartate Amino Transfer& quot; /> <statusCode code="completed" /> < effectiveTime value="949253292389" /> <value unit=&quot ;U/L" xsi:type="PQ" value="14"/> < referenceRange> <observationRange> <text> 14-36</text> </observationRange> </ referenceRange> </observation> </component> < component> <observation moodCode="EVN" classCode=" OBS"> <templateId root="2.16.840.1.983550.10.20.22.4.2& quot; /> <id nullFlavor="NA" /> <code codeSystem="local" code="300.3110" displayName="TP - Total Protein" /> <statusCode code="completed" /& gt; <effectiveTime value="933415636844" /> &lt ;value unit="g/dL" xsi:type="PQ" value="6.6" /&gt ; <referenceRange> <observationRange> &lt ;text>6.3-8.2</text> </observationRange> < /referenceRange> </observation> </component> &lt ;component> <observation moodCode="EVN" classCode=" OBS"> <templateId root="2.16.840.1.092922.10.20.22.4.2& quot;/> <id nullFlavor="NA" /> <code codeSystem="local"code="300.3120" displayName="Albumin Level" /> <statusCode code="completed" /> <effectiveTime value="893280648625" /> <value unit="g/dL" xsi:type="PQ" value="4.1" /> <referenceRange> <observationRange> < text>3.5-5.0</text> </observationRange> </ referenceRange> </observation> </component> < component> <observation moodCode="EVN" classCode=" OBS"> <templateId root="2.16.840.1.149054.10.20.22.4.2& quot; /> <id nullFlavor="NA" /> <code codeSystem= "local" code="300.3130" displayName="Globulin" /& gt; <statusCode code="completed" /> < effectiveTime value="547411630773" /> <value unit=&quot ;G/DL" xsi:type="PQ" value="2.5" /> < referenceRange> <observationRange> <text>2.4-3.6 </text> </observationRange> </referenceRange& gt; </observation> </component> <component> <observation moodCode="EVN" classCode="OBS"> &lt ;templateId root="2.16.840.1.570789.10.20.22.4.2" /> < id nullFlavor="NA" /> <code codeSystem="local&quot ; code="300.3140" displayName="Albumin/Globulin Ratio" /&gt ; <statusCode code="completed" /> < effectiveTime value="949189213086" /> <value unit=&quot ;RATIO" xsi:type="PQ" value="1.6" /> < referenceRange> <observationRange> <text>1.1-2.2< /text> </observationRange> </referenceRange> </observation> </component> <component> <observation moodCode="EVN" classCode="OBS"> < templateId root="2.16.840.1.428793.10.20.22.4.2" /> < id nullFlavor="NA" /> <code codeSystem="local&quot ; code="300.0095" displayName="LICTERUS" /> < statusCode code="completed" /> <effectiveTime value=& quot;758629412582" /> <value unit="" xsi:type=& quot;PQ" value="< 2" /> <referenceRange&gt ; <observationRange> <text>0-7</text> </observationRange> </referenceRange> & lt;/observation> </component> <component> < observation moodCode="EVN" classCode="OBS"> < templateId root="2.16.840.1.387232.10.20.22.4.2" /> < id nullFlavor="NA" /> <code codeSystem="local" code="300.0096" displayName="LHEMOLYSIS" /> < statusCode code="completed" /> <effectiveTime value=& quot;875911286456" /> <value unit="" xsi:type=& quot;PQ" value="< 15" /> <referenceRange&gt ; <observationRange> <text>0-25</text> </observationRange> </referenceRange> </ observation> </component> <component> < observation moodCode="EVN" classCode="OBS"> < templateId root="2.16.840.1.210762.10.20.22.4.2" /> < id nullFlavor="NA" /> <code codeSystem="local&quot ; code="300.0097" displayName="LTURBIDITY" /> < statusCode code="completed" /> <effectiveTime value=& quot;923255892176" /> <value unit="" xsi:type=& quot;PQ" value="< 20" /> <referenceRange&gt ; <observationRange> <text>0-20</text&gt ; </observationRange> </referenceRange> & lt;/observation> </component> <component> < observation moodCode="EVN" classCode="OBS"> < templateId root="2.16.840.1.440133.10.20.22.4.2" /> < id nullFlavor="NA" /> <code codeSystem="local&quot ; code="300.3105" displayName="LALTV" /> < statusCode code="completed" /> <effectiveTime value=& quot;879450365123" /> <value unit="U/L" xsi:type="PQ& quot; value="23" /> <referenceRange> < observationRange> <text>1-35</text> </ observationRange> </referenceRange> </observation&gt ; </component> </organizer> </entry> <entry> <organizer moodCode="EVN" classCode="BATTERY"> <templateId root="2.16.840.1.155179.10.20.22.4.1" /> < id nullFlavor="NA" /> <code codeSystem="local" code="LPHOS" displayName="L200.0630" /> < statusCode code="completed" /> <component> < observation moodCode="EVN" classCode="OBS"> < templateId root="2.16.840.1.879760.10.20.22.4.2" /> <id nullFlavor="NA" /> <code codeSystem="local" code="300.2300" displayName="Phosphorus" /> < statusCode code="completed" /> <effectiveTime value=& quot;762074422220" /> <value unit="MG/DL" xsi:type ="PQ" value="3.6" /> <referenceRange> <observationRange> <text>2.5-4.5</text> </observationRange> </referenceRange> </ observation> </component> </organizer> </entry> & lt;entry> <organizer moodCode="EVN" classCode="BATTERY& quot;> <templateId root="2.16.840.1.056269.10.20.22.4.1" /& gt; <id nullFlavor="NA" /> <code codeSystem=" local" code="LMAG" displayName="L200.2000" /> & lt;statusCode code="completed" /> <component> &lt ;observation moodCode="EVN" classCode="OBS"> &lt ;templateId root="2.16.840.1.059382.10.20.22.4.2" /> < id nullFlavor="NA" /> <code codeSystem="local&quot ; code="300.2350" displayName="MAG - Magnesium" /> <statusCode code="completed" /> <effectiveTime value="052113157223" /> <value unit="MG/DL" xsi:type="PQ" value="2.0" /> <referenceRange& gt; <observationRange> <text>1.6-2.3</ text> </observationRange> </referenceRange> </observation> </component> </organizer> </ entry> <entry> <organizer moodCode="EVN" classCode=& quot;BATTERY"> <templateId root=" 2.16.840.1.374034.10.20.22.4.1" /> <id nullFlavor="NA&quot ; /> <code codeSystem="local" code="LLDH" displayName="L200.1855" /> <statusCode code="completed " /> <component> <observation moodCode="EVN& quot; classCode="OBS"><templateId root=" 2.16.840.1.769325.10.20.22.4.2" /> <id nullFlavor="NA& quot; /> <code codeSystem="local" code="300.3250& quot; displayName="LDH - Lactate Dehydrogenase" /> < statusCode code="completed" /> <effectiveTime value=& quot;198590599606" /> <value unit="U/L" xsi:type=& quot;PQ" value="300" /> <interpretationCode codeSystem="local" code="*" /> < referenceRange> <observationRange> <text> 313-188</text> </observationRange></referenceRange&gt ; </observation> </component> </organizer> &lt ;/entry> <entry> <organizer moodCode="EVN" classCode=& quot;BATTERY"> <templateId root=" 2.16.840.1.630953.10.20.22.4.1" /> <id nullFlavor="NA&quot ; /> <code codeSystem="local" code="LTSH" displayName="L200.3850" /> <statusCode code="completed " /> <component> <observation moodCode="EVN&quot ; classCode="OBS"> <templateIdroot=" 2.16.840.1.534444.10.20.22.4.2" /> <id nullFlavor="NA& quot; /> <code codeSystem="local" code="300.5500& quot; displayName="TSH - Thyroid Stim Hormone" /> < statusCode code="completed" /> <effectiveTime value=& quot;451695871945" /> <value unit="mIU/L" xsi:type ="PQ" value="3.52" /> <interpretationCode codeSystem="local" code="" /> < referenceRange> <observationRange> <text> 0.47-4.68</text> </observationRange> </ referenceRange> </observation> </component> </ organizer> </entry> <entry> <organizer moodCode="EVN " classCode="BATTERY"> <templateId root=" 2.16.840.1.556213.10.20.22.4.1" /> <id nullFlavor="NA&quot ; /> <code codeSystem="local" code="LCK" displayName="L200.1700" /> <statusCode code="completed " /> <component> <observation moodCode="EVN& quot; classCode="OBS"> <templateId root=" 2.16.840.1.533219.10.20.22.4.2" /> <id nullFlavor="NA& quot; /><code codeSystem="local" code="300.3300" displayName="Creatine Kinase - CK" /> <statusCode code= "completed" /> <effectiveTime value="279248239540& quot; /> <value unit="U/L" xsi:type="PQ" value="47" /> <referenceRange> < observationRange> <text>30-135</text> </ observationRange> </referenceRange> </observation&gt ; </component> </organizer> </entry> <entry> <organizer moodCode="EVN" classCode="BATTERY"> <templateId root="2.16.840.1.283415.10.20.22.4.1" /> < id nullFlavor="NA" /> <code codeSystem="local" code="LCRP" displayName="L200.1860" /> < statusCode code="completed" /> <component> < observation moodCode="EVN" classCode="OBS"> < templateId root="2.16.840.1.828715.10.20.22.4.2" /> < id nullFlavor="NA" /> <codecodeSystem="local&quot ; code="300.3650" displayName="CRP - C-Reactive Protein" /& gt; <statusCode code="completed" /> < effectiveTime value="787937750663" /> <value unit=&quot ;mg/L" xsi:type="PQ" value="7.6" /> < referenceRange> <observationRange> <text>0-9</text& gt; </observationRange> </referenceRange> & lt;/observation> </component> </organizer> </entry&gt ; <entry> <organizer moodCode="EVN" classCode=" BATTERY"> <templateId root="2.16.840.1.491803.10.20.22.4.1& quot; /> <id nullFlavor="NA" /><code codeSystem=&quot ;local" code="LCORTR-A" displayName="L902.5645" /> <statusCode code="completed" /> <component> <observation moodCode="EVN" classCode="OBS"> <templateId root="2.16.840.1.578825.10.20.22.4.2" /> <id nullFlavor="NA" /> <code codeSystem=" local" code="902.5645" displayName="Cortisol Random, Serum - AMS" /> <statusCode code="completed" /> <effectiveTime value="707046846957" /> <value unit="ug/dL" xsi:type="PQ" value="3" /> <referenceRange> <observationRange> <text>3-20& lt;/text> </observationRange> </referenceRange& gt; </observation> </component> </organizer> & lt;/entry> <entry> <organizer moodCode="EVN" classCode ="BATTERY"> <templateIdroot=" 2.16.840.1.304298.10.20.22.4.1" /> <id nullFlavor="NA&quot ; /> <code codeSystem="local" code="LESR-A" displayName="L750.8263" /> <statusCode code="completed " /> <component> <observation moodCode="EVN& quot; classCode="OBS"> <templateId root=" 2.16.840.1.706110.10.20.22.4.2" /> <id nullFlavor="NA& quot; /> <code codeSystem="local" code="903.9025& quot; displayName="ESR - Sedimentation Rate - AMS" /> < statusCode code="completed" /> <effectiveTime value=& quot;879498806713" /> <value unit="mm/h" xsi:type= "PQ" value="10" /> <referenceRange> <observationRange> <text>0-23</text> </ observationRange> </referenceRange> </observation&gt ; </component> </organizer> </entry></section> Encounters ACCT No. Visit Discharge Status Pt. Provider Facility Loc./Unit Complaint Date/Time Type [id number] 03/24/2015 05/06/2016 DIS Outbenny BURRELL 00:00:00 00:00:00 BHAVESH mariscal MD [id number] 06/06/2017 06/06/2017 CLS Brenton Godoy, 3101 21:42:21 23:59:59 davey Bustamante [id number] 03/24/2015 05/06/2016 DIS Outpati INDRA 00:00:00 00:00:00 BHAVESH mariscal MD [id number] 06/06/2017 Documen 13:45:00 t Registr ation [id number] 11/14/2016 Documen 16:00:00 t Registr ation [id number] 10/31/2016 Documen 16:00:00 t Registr ation [id number] 04/03/2016 PEN IN JANNIE LINDER, Reyna ViramontesUR E 3462 07:30:00 GAMALIEL [facility] [id number] 09/19/2017 09/19/2017 DIS OutPool Sinclair chest xray 6459 10:31:00 10:32:00 [facility] [id number] 09/09/2017 09/09/2017 DIS Emergen Pool COSTELLO DO heavy 7996 11:03:00 14:18:00 melida KATIE Orozco Medical chest,cough, Center soa [id number] 08/19/2017 08/19/2017 DIS Outpati CUEVA Diabetes Hypothyroidi 9315 11:36:00 12:15:00 ent ELOISE LINDER & Endocrinolog y [id number] 08/11/2017 08/11/2017 DIS Outpati Pool ORTA C64.1 3336 12:57:00 12:58:00 ent ZULAY Limon [facility] Center neoplasm of right kidney, except r [id number] 07/04/2017 07/04/2017 DIS OutPool Lorenzana XR of left 5847 13:18:00 13:19:00 davey Schulte [facility] [id number] 06/20/2017 06/20/2017 DIS OutPool Sinclair Chest Xray 7838 11:33:00 11:34:00 [facility] [id number] 06/11/2017 06/11/2017 DIS Outpati CUEVA Diabetes Hypothyroidi 9102 11:29:00 15:42:00 ELOISE mariscal MD & Endocrinolog y [id number] 06/10/2017 06/10/2017 DIS Outpati BRIAN, WC.BC N63.11 Right 9763 13:35:00 13:36:00 davey Schulte breast lump [employer] [id number] 06/05/2017 06/05/2017 CLS Outbenny ORTA LABN 8054 09:50:00 23:59:59 davey Limon [id number] 11/11/2016 05/23/2017 DIS Outpati FREEDOM TORRESN lab 3247 11:56:00 00:00:00 ent MAYNOR Schulte [employer] [id number] 05/07/2017 05/07/2017 DIS OutPool Sinclair C64.1 3167 12:29:00 12:30:00 [facility] neoplasm of right kidney, except r [id number] 04/16/2017 04/16/2017 DIS Outpati CUEVA Diabetes Hypothyroidi 1594 13:45:00 14:39:00 ELOISE mariscal MD & Endocrinolog y [id number] 04/10/2017 04/10/2017 DIS OutPool Sinclair C64.1 0656 13:06:00 13:07:00 davey Limon [facility] neoplasm of right kidney, except r [id number] 04/06/2017 04/06/2017 DIS Emergen Pool COSTELLO DO stiff 0145 11:45:00 13:57:00 melida Orozco Medical neck,fever,n Center /v [id number] 03/27/2017 03/27/2017 CLS OutPool Sinclair ACTH 3711 13:56:00 23:59:59 davey Limon Medical stimulation Center testing [id number] 03/27/2017 03/27/2017 DIS ISMAEL Kirkpatrick C 64.1 8308 11:27:00 11:28:00 davey Limon [id number] 03/19/2017 03/19/2017 Pool Funk chest/left 8415 12:07:00 12:08:00 davey Limon Medical wrist x-ray Center [id number] 03/13/2017 03/13/2017 DIS Pool Kirkpatrick M25.522 Pain 4355 12:10:00 12:11:00 davey Limon Medical in left Center elbow; C64.1 Renal Cell Cance [id number] 02/12/2017 02/12/2017 DIS Outpati CUEVA Diabetes Hyperthyroid 5732 10:08:00 10:58:00 ELOISE mariscal MD & is Endocrinolog y [id number] 02/04/2017 02/04/2017 DIS Pool Kirkpatrick M25.522 Pain 2947 10:38:00 10:39:00 davey Limon Medical in left Center shoulder [id number] 01/29/2017 01/30/2017 DIS Emergen TWIN Lanza Spinal 5205 23:16:00 02:00:00 PAUL montez MD [facility] headache/vom Center iting [id number] 01/29/2017 01/28/2017 CLS Pool Kirkpatrick M25.522 pain 1221 13:30:00 23:59:59 davey Limon Medical in left Center elbow [id number] 01/16/2017 01/16/2017 Pool Funk 0752 11:29:00 11:30:00 [facility] [id number] 01/06/2017 01/07/2017 DIS Faviola [facility] colitis 3576 13:47:00 13:50:00 GERTRUDE waldron MD [id number] 01/03/2017 01/04/2017 DIS Emergen MAY DO, ED Stomach 1232 22:00:00 01:42:00 cy ARLENE M pain,crampin g,diarrhea,b lood [id number] 12/26/2016 12/26/2016 GUICHO CHAIDEZ MD, ZOYA xray ribs 6639 12:10:00 12:11:00 ent STEPHANIE Montoya Bilateral [id number] 12/16/2016 12/16/2016 DIS Emergen MAY DO, ED headache, 8662 13:03:00 15:45:00 cy ARLENE M back pain, diff breathing [id number] 12/07/2016 12/08/2016 DIS Emergen MURCIA ED Headache 4779 20:57:00 00:16:00 PAUL montez MD [id number] 12/01/2016 12/01/2016 DIS Emergen MAY DO, ED Head Pain 5249 19:11:00 22:10:00 cy ARLENE M [id number] 11/19/2016 11/19/2016 GUICHO CHAIDEZ MD, SRG 7148 14:17:00 17:00:00 nt STEPHANIE Montoya [id number] 11/08/2016 11/09/2016 DIS Emergen [facility] ED 0946 21:54:00 00:11:00 melida LINDER, YOUNG Q [id number] 11/07/2016 11/07/2016 GUICHO CHAIDEZ MD, ZOYA.MRI 6341 13:21:00 13:22:00 ent STEPHANIE Montoya [id number] 11/05/2016 11/05/2016 GUICHO CHAIDEZ MD, LAB lab 2968 11:29:00 00:00:00 davey Montoya [id number] 10/22/2016 10/22/2016 GUICHO CH MD, Pool VTU 4191 07:46:00 13:40:00 [facility] [id number] 10/16/2016 10/16/2016 Pool Solano MD ZOYA 7587 10:41:00 23:59:59 [facility] [id number] 07/01/2016 10/12/2016 DIS Sinan CHAIDEZ MD, Pool LAB 4534 12:41:00 00:00:00 [facility] [id number] 09/27/2016 09/27/2016 DIS Emergen Pool COSTELLO DO ED 8644 21:54:00 23:30:00 cy [facility] [id number] 09/25/2016 09/25/2016 CLS Pool Suero MD ZOYA 3462 16:00:00 23:59:59 t [facility] [id number] 09/05/2016 09/05/2016 Pool Solano MD ZOYA 8614 15:46:00 23:59:59 [facility] [id number] 09/05/2016 09/05/2016 HIGINIO Lanza ZOYA 8143 13:32:00 23:59:59 davey PANDEY MD, [facility] [id number] 08/16/2016 08/17/2016 DIS Emergen TWIN Lanza ED 5233 22:56:00 00:45:00 melida LINDER, [facility] [id number] 08/15/2016 08/15/2016 CLS Brenton Lanza ZOYA 5812 16:37:00 23:59:59 davey PANDEY MD, [facility] [id number] 08/04/2016 08/05/2016 DIS Emergen TWIN Lanza ED 0873 22:57:00 00:05:00 melida LINDER, [facility] [id number] 07/29/2016 07/29/2016 CLS Pool Suero MD ZOYA 8771 10:30:00 23:59:59 t [facility] [id number] 07/26/2016 07/26/2016 Pool Solano MD ZOYA 4406 10:42:00 23:59:59 [facility] [id number] 07/18/2016 07/18/2016 Pool Solano MD ZOYA 8767 09:12:00 23:59:59 [facility] [id number] 06/27/2016 06/27/2016 Pool Solano MD ZOYA 8395 11:24:00 23:59:59 ent [facility] [id number] 06/14/2016 06/14/2016 CLS Pool Salmeron MD ZOYA 9596 10:11:00 23:59:59 ent [facility] [id number] 06/09/2016 06/10/2016 DIS Emergen MURCIATAYLOR Lanza ED 3714 20:58:00 01:12:00 melida LINDER, [facility] [id number] 04/22/2016 04/22/2016 CLS Pool Salmeron MD ZOYA 6759 11:09:00 23:59:59 ent [facility] [id number] 04/11/2016 04/12/2016 DIS Emergen MURCIATAYLOR Lanza ED 6545 23:16:00 01:07:00 melida LINDER, [facility] [id number] 09/21/2017 Documen 8364 18:26:00 t Registr ation [id number] 02/01/2017 02/01/2017 DIS Emergen William Martinez DOGILDARDO 1889 15:38:00 16:42:00 cy [facility] [id number] 01/27/2017 01/27/2017 DIS Outpati Walt SpenceOPRA 4516 06:38:00 11:59:00 ent , [facility] [id number] 12/02/2016 12/05/2016 DIS Inpatie Win Spence8TN 6102 00:19:00 15:54:00 nt , [facility] [id number] 11/28/2016 11/28/[address] SpenceRAD 3779 08:00:00 08:00:00 ent , [facility] [id number] 05/30/2016 05/31/2016 DIS Outpati VIKI, <PV2.3.2& 754 08:18:00 03:30:00 davey HARMAN gt;M79.602 LT ARM PAIN AND SWELLING< /PV2.3.2> <PV2.3.2& gt;VENOUS DOP UP ARM/NECK LT (DVT)</PV 2.3.2> [id number] 03/27/2016 03/27/2016 DIS Emergen SEEMATTER, RT RENAL 824 09:25:00 23:23:43 cy FLAQUITO MASS WITH RT FLANK PAIN 03/21/2015 03/22/2015 DIS Outpati DEMETRIO, 284 09:58:00 03:30:05 ent VERLIN K [id number] 04/06/2016 Documen 762 21:26:00 t Registr ation [id number] 05/30/2016 05/31/2016 DIS Outpati VIKI, <PV2.3.2& 754 08:18:00 03:30:00 ent GHAZAL gt;M79.602 LT ARM PAIN AND SWELLING< /PV2.3.2> <PV2.3.2& gt;VENOUS DOP UP ARM/NECK LT (DVT)</PV 2.3.2> [id number] 03/27/2016 03/27/2016 DIS Emergen SEEMATTER, RT RENAL 824 09:25:00 23:23:43 cy FLAQUITO MASS WITH RT FLANK PAIN 03/21/2015 03/22/2015 DIS Outpati DEMETRIO, 284 09:58:00 03:30:05 ent VERLIN K [id number] 04/06/2016 Documen 762 21:26:00 t Registr ation [id number] 10/22/2016 Documen 07:42:44 t Registr ation [id number] 11/19/2016 DIS Inpatirayshawn CHAIDEZ MD, SRG 7148 14:17:00 nt STEPHANIE Montoya [id number] 11/19/2016 Inpatie SRG 6884 00:00:00 nt [id number] 04/30/2017 04/30/2017 DIS Outpati Walt, [facility] F3E Benign 1558 09:49:00 14:35:00 [facility] hypertension on [facility] Maurice Lumboperiton eal shunt rem [id number] 04/22/2017 04/22/2017 DIS Outpati Walt, Via [facility] CT Scan Benign 1805 12:55:00 23:59:00 [facility] hypertension on Vahid [id number] 04/14/2017 04/14/2017 DIS Outpati Walt, [facility] F[facility]E intracranial 0991 12:51:00 18:25:00 ent , [facility] hypertension Hospital / [facility] shunt on [facility] [id number] 02/13/2017 02/13/2017 ACT Outbenny Godoy, [facility] F[facility]E headache, 7682 10:14:00 18:45:00 ent , [facility] nausea Hospital on [place] [id number] 02/04/2017 02/08/2017 DIS Outpati Moanushkaarrij, Via [facility] F8SE spinal 8995 15:06:00 11:56:00 ent , [facility] s/p on [facility] s [id number] 05/01/2017 Documen [id number] 05:18:20 t Registr ation [id number]/15/2017 Documen [id number] 05:19:54 t Registr ation [id number]/12/2017 Documen [id number] 05:18:53 t Registr ation [id number]/14/2017 Documen [id number] 05:17:29 t Registr ation [id number]/08/2017 Documen [id number] 05:18:34 t Registr ation [id number]/07/2017 Documen [id number] 05:20:05 t Registr ation [id number]/06/2017 Documen [id number] 05:18:41 t Registr ation [id number]/05/2017 Documen [id number] 05:20:46 t Registr ation [id number] 02/01/2017 02/01/2017 DIS Emergen William Martinez DO 1889 15:38:00 16:42:00 [facility] [id number] 01/27/2017 01/27/2017 DIS Outpati Walt SpenceOPRA 4516 06:38:00 11:59:00 ent , [facility] [id number] 12/02/2016 12/05/2016 DIS Inpatirayshawn Spence8TN 6102 00:19:00 15:54:00 nt , [facility] [id number] 11/28/2016 11/28/[address] SpenceRAD 3779 08:00:00 08:00:00 ent , [facility] [id number] 05/15/2015 05/15/2015 HIGINIO Koenig, 15:19:00 23:59:59 ent Darryl Menon
[2017-09-21] MEDS ORDERED: SALINE FLUSH 10ml SYRINGE ONE (19:57)
[2017-09-21] MEDS ORDERED: IOHEXOL 350mg/ml 75ml INJECTION ONE (19:57)
[2017-09-21] MEDS ORDERED: LEVOFLOXACIN PB 750 MG/150 ML BAG IV SCH (21:00)
[2017-09-21] MEDS ORDERED: NS 1,000 ML IV ONE (21:55)
[2017-09-21] MEDS ORDERED: HYDROCODONE/APAP 7.5 MG/325 MG TABLET PO PRN (21:55)
[2017-09-21] MEDS ORDERED: MAGIC MOUTHWASH 5ml PO PRN (21:55)
[2017-09-21] MEDS ORDERED: ALBUTEROL 2.5mg/3ml (0.083%) NEB AEROSOL PRN (21:55)
[2017-09-21 22:13] VITALS: BMI 34.1
[2017-09-21] MEDS: PANTOPRAZOLE 40 MG INJECTION IVP SCH (22:39)
[2017-09-22] MEDS: METHYLPREDNISOLONE SOD SUCC 125mg/2ml INJECTION IVP SCH ×4 (03:38→20:16)
--- NOTE | 2017-09-22 05:08 | History & Physical Report ---
History of Present Illness Date: 09/22/17 Chief complaint: short of breath HPI: This is a complicated story. The patient developed a fever and cough 2 weeks ago. 09/05. The patient has been on ? antibiotic during this time. At one point the patient had a CT of the chest done that excluded PE. The patient has been followed by Robert LINDER and Dr. Bui (see below). The patient continued on antibiotics and changed to Levaquin recently and prednisone 60 mg po. Continue to feel bad and contacted Dr. Bui who asked her to come into the eD tonight. CT tonight did not demonstate a clot. The patient is currently being treated by Dr. Pickard for renal cell carcinoma (dx in 2016 s/p nephrectomy). The pateint has been seen by pulmonary. CT tonight demonstrated ground glass component ? infiltrates. The patient to be admitted for further workup of infectious process. Note that this patient is at risk for immune compromised organisms. Review of Systems Review of systems: no headache, fevers, chills, sweats, no sore throat, no neck pain, no chest pain , cough is dry, mod short of breath with activty, no heart palpitations, no abdomen pain, no nusea or vomitng. patient with right rib pain with cough. Of some interest the patient has developed a slightly raised non blanching rash on her upper trunk. non painful. no pruitic. no urine sx, no focal neuro complaints. 12 pont ROS otherwise negative. 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 Alegre. Bilateral papilledema due to raised intracranial pressure (Acute) Surgical History: Back surgery. Right nephrectomy Apr, 2016. Left radial resection for bone mets Jul 2016. PAC September 2016. lumbar shunt 01-27-2017. Hysterectomy 2014. laparoscopies x4 - BTL, look at fallopian tubes. [employer] shunt. Tonsillectomy Family History: Family History (Last Reviewed 08/19/17 @ 11:48 by Zion Keene MD) Father Diabetes Sister Diabetes Family History: As Above - Social History Smoking status: Former smoker Current residence: Apartment/Private Home Medications Home Medications Medication Instructions Recorded Confirmed Type LORazepam [Ativan] 0.5 mg PO DAILY PRN 12/01/16 09/21/17 History Denosumab [Xgeva] 1 dose SQ Q30D 04/06/17 09/21/17 History Magic Mouthwash [Magic Mouthwash 5 ml PO Q4H PRN 04/06/17 09/21/17 History (Lido/Maalox/Carafate)] Nystatin Oral Liq. [Mycostatin] 5 ml PO DAILY 04/06/17 09/21/17 History Ranitidine [Zantac] 150 mg PO BID 04/06/17 09/21/17 History Albuterol Sulfate [Proair Hfa] 2 puff INH Q4H PRN 09/09/17 09/21/17 History Hydrocodone/APAP 7.5/325 [[place] 1 - 2 tab PO Q6H PRN 09/09/17 09/21/17 History 7.5/325] Hydromorphone HCl 4 - 8 mg PO Q4-6HR PRN 09/09/17 09/21/17 History Levothyroxine Sodium 150 mcg PO ACB 09/09/17 09/21/17 History Albuterol/Ipratropium [Duoneb] 1 unit AEROSOL Q6H 09/21/17 09/21/17 History Levofloxacin [Levaquin] 500 mg PO DAILY 09/21/17 09/21/17 History Nicotine Patch [Nicoderm] 14 mg TD DAILY 09/21/17 09/21/17 History predniSONE [Prednisone] 60 mg PO DAILY 09/21/17 09/21/17 History Allergies Allergy/AdvReac Type Severity Reaction Status Date / Time ibuprofen Allergy Severe DUE TO Verified 09/21/17 17:56 NEPHRECTOMY ondansetron Allergy Intermediate REALLY BAD Verified 09/21/17 17:56 HEADACHES Penicillins Allergy Intermediate Rash Verified 09/21/17 17:56 oxycodone AdvReac Intermediate SLEEPLESSNE Verified 09/21/17 17:56 SS morphine AdvReac Unknown "MAKES ME Verified 09/21/17 17:56 FEEL LIKE I'M GOING TO " Exam Vital Signs: Temperature 98.0 F 04/22/18 23:55 Pulse Rate 92 09/22/17 00:00 Respiratory Rate 16 09/21/17 23:55 Blood Pressure 114/65 09/21/17 23:55 Pulse Oximetry 98 09/21/17 23:55 Telemetry Rhythm: Sinus Rhythm Height/Weight/BMI: Height 1.68 m Weight 95.9 kg Body Mass Index 34.1 - Constitutional Present: mild distress, well nourished, well developed, average body habitus, cooperative - Routine HEENT Exam Head: Present: normocephalic, atraumatic Eye: Present: PERRL, conjunctivae pink ENT: Present: mucous membranes dry - Routine Neck Exam Present: supple, full ROM - Routine Respiratory Exam Present: decreased breath sounds. Absent: accessory muscle use Comments: diminished, with scattered wheezes and rhonchi - Routine Cardiovascular Exam Present: RRR, no murmur - Routine Abdominal Exam Present: soft, non distended, non tender - Routine Extremities Exam Present: no edema, full ROM, pulses intact - Routine Back/Spine/Pelvis Exam Back/Spine: Present: full ROM - Routine Skin Exam Comments: multple approx 2mm sized slightly raised dark red appearing rash scatterd but not plaque like non painful. upper trunkl - Routine Neurological Exam Present: alert, oriented X3, normal tone - Routine Psychiatric Exam Present: normal affect, normal thought process Results - Labs CBC & Chem 7: 09/22/17 08:18 09/22/17 08:18 Labs: reviewed and will be discussed below Microbiology Results: Microbiology 09/21/17 22:55 Sputum, Expectorated Gram Stain - Final Not performed 09/21/17 22:55 Sputum, Expectorated Sputum Culture - Preliminary Culture Initiated - Results Pending Assessment and Plan (1) Pneumonia Current visit: Yes Status: Acute (2) Reactive airway disease Current visit: Yes Status: Acute (3) Leukocytosis Current visit: Yes Status: Acute (4) Renal cell carcinoma Current visit: Yes Status: Acute (5) Hyperglycemia Current visit: Yes Status: Acute (6) Rash Current visit: Yes Status: Acute Assessment and Plan: 1. infectious lung process acute POA: ID consult recommended, have not called or placed consult yet. (middle of night). Patient on levaquin in the community. Will continue levaquin and add vancomycin. cx ordered. PUlmonay consult will be necessary as well. Very complex process. May ultimately need BAL sample to better differentite process 2. reactive airway disease acute OPA: continue steroids, change to iv, duoneb , albuterol, follow with pulmonary 3. renal cell carcinoma with mets to ? left elbow. Pateint to follow with in [place] regarding ortho help. Dr. Bui locally for renal tumor. 4. Hyperglycemia acute POA: steorid affect. correctional plan 5. rash acute POA: needs bx in my opinion. would be interested to get ID impression. 6. dVT ppx: SCD, lovenox 7. gastric ppx; PPI DVT Prophylaxis: SCD's GI Prophylaxis: Protonix Resuscitation Status: Full Code - Time spent with patient Time with patient PN: 35 minutes - Physician Narrative Physician: Lidia Obrien MD, Esthela Harrington MD Narrative: Date: 09/22/17 Time: 4:35pm -Dr. Harrington I seen and evaluated the patient. I've reviewed the H&P above and agree. Please see my additions below. Chief complaint: Shortness of breath, wheezing, cough, chest pain, fatigue History of present illness: Patient is a pleasant 32-year-old female with history of clear cell carcinoma of the right kidney who is on Opdivo and Xgeva. She has had a two-week history of feeling short of breath, wheezy, having a vibrating pain in her chest below her right breast going through to her back. She has had a cough occasionally productive with occasionally white phlegm and occasionally brown phlegm. No hemoptysis. She has taken her temperature at home and the maximum temperature was 101. She's had occasional sweats. She occasionally notices heart racing and worsening chest pain when she lies down flat. She's had facial flushing. She feels fatigued and has some body aches. She's had no vomiting or diarrhea. She had similar symptoms in early August and underwent a CTA chest which was negative. She was started on doxycycline, steroids and given albuterol. Then on September [address] Johnson and doxycycline was discontinued and Levaquin was initiated. She states her symptoms have really not improved. She feels like she has a hard time sleeping with the pain medications and steroids. She was having more shortness of breath and wheezing last night and was seen in the emergency room and again a CTA was obtained which was negative for PE. There was some diffuse mosaic air trapping. She had a persistent pleural or subpleural based nodules in the anterolateral and inferior medial lung. She was started on IV steroids and vancomycin. Levaquin was continued. This morning, she states she feels about the same. She asks when she can go home. Comprehensive review of systems: She states she's had thrush recently and has a bad taste in her mouth. The white plaques on her tongue have resolved. Otherwise , comprehensive review of systems is negative other than the above in history of present illness. Past medical history: Hypothyroidism secondary to opdivo Obesity Primary clear cell carcinoma of the right kidney, stage IV with metastasis to the bone Pulmonary dysplasia since , she required continuous oxygen for the first 2 years of life Questionable COPD History of C. difficile Peripheral neuropathy Pseudotumor cerebri for which she underwent lumbar shunt with revisions and it was subsequently removed due to leaking. Questionable history of GI bleed Past surgical history: Back surgery, right nephrectomy April 2016, left radical resection for bone metastases every 2016, JIMMY September 2016, lumbar shunt in December 2016 with revisions and subsequent removal. Hysterectomy 2014. Laparoscopies 4, tonsillectomy Family history significant for diabetes. No family members are currently ill. Social history: The patient is she states she quit smoking one week ago. She lives with her and children. Medications and allergies are reviewed. Physical exam: Afebrile, heart rate 80s to 90s, blood pressure 104/64, O2 sat 98 % on room air Gen.: This is a well-developed well-nourished pleasant female in no acute distress. HEENT: Pupils are equal round and reactive, sclerae are anicteric, oropharynx is moist without white plaques on the tongue, palate or pharynx. Neck: Supple without lymphadenopathy Cardiovascular: Regular rate and rhythm, no murmur, no rubs Chest: Mild rhonchi in the bases left greater than right. No wheezes. No crackles Abdomen: Soft, nontender, nondistended with positive bowel sounds Extremities: No edema, no clubbing or cyanosis Skin: Warm and dry Neurologic: Alert and oriented 3, no focal deficits Pertinent lab CBC on recheck today is essentially stable, CMP is normal other than glucose of 138. Lactate was 2.3 on admission and improved to 1.5. Pro- calcitonin was normal. Urinalysis was negative. Blood cultures and sputum cultures are pending. Patient underwent lab on 09/19/2017 and at that time sedimentation rate was 10, C-reactive protein 7.6, TSH 3.52, free T4 1 0.88, phosphorus 3.6, magnesium 2.0 CT chest as above in history of present illness CT sinuses show no definitive sinusitis EKG shows sinus rhythm Impression Cough with wheezing of uncertain etiology. Has not improved significantly with steroids, doxycycline or recent Levaquin. CTA negative for PE. History of pulmonary dysplasia at -uncertain if this is contributing to symptoms COPD with possible COPD exacerbation recent discontinuation of tobacco one week ago Fatigue Myalgias Mild hyperglycemia-likely secondary to steroids Leukocytosis-secondary to steroids versus infectious process versus other Chest pain-possibly secondary to cough with pleurisy versus less likely pericarditis (normal sedimentation rate and C-reactive protein, normal EKG, no pericardial effusion seen on CT) Metastatic clear cell carcinoma with bone metastasis on chemotherapy Immunosuppression with steroids, clear cell cancer Generalized weakness Plan We'll check a viral respiratory panel CPK regarding myalgias. Magnesium and phosphorous regarding generalized weakness CBC with differential and basic metabolic profile in the morning. Monitor Accu-Cheks regarding hyperglycemia Dr. Brown was consulted and recommended discontinuation of antibiotics. Testing for TB, cryptococcus, and histoplasmosis initiated. Dr. Johnson was consulted regarding pulmonary symptoms. Continue on breathing treatments and steroids for now. Dr. Alegre was consulted regarding the patient's clear cell carcinoma Hospital Course Summary Disclaimer: The visit summary below is not to be considered part of the above Progress Note.
[2017-09-22] MEDS: LEVOTHYROXINE 150 MCG TABLET PO SCH (06:18)
[2017-09-22] MEDS: ALBUTEROL/IPRATROPIUM 2.5mg-0.5mg/3ml NEB AEROSOL SCH ×4 (06:59→22:05)
--- NOTE | 2017-09-22 08:14 | CT Scan Report ---
Indication: pain PROCEDURE: CT angio pulm emboli: Encounter: Initial Comparison: 09/09/2017 TECHNIQUE: Helical imaging was performed through the chest after the uneventful IV administration of IV contrast. 3-dimensional volume rendered reconstructions were performed on the helically acquired data including volumetric MIP reconstructions. Automated Exposure Control and Iterative Reconstruction dose reducing techniques were utilized. FINDINGS: There is mild diffuse mosaic air trapping. There is a persistent pleural or subpleural-based nodule in the anterolateral left lung that measures 8.6 mm and a pleural-based nodule in the inferomedial left lung base that measures 9.3 mm.. There is no definite evidence for pulmonary embolus. No evidence for bronchial occlusion or mucous plugging. Heart size is normal. No pericardial effusion. No definite pleural effusion. The great vessels arise from the aorta in a normal fashion. There is no evidence for aortic dissection, or significant atherosclerotic plaque. The included portions of the upper abdominal structures are unremarkable. IMPRESSION: Mild diffuse mosaic air trapping. Without definite evidence for pulmonary embolus. Persistent pleural or subpleural-based nodules in the anterolateral and inferior medial left lung. All vessel measurements are attained using CTA criteria adapted from NASCET criteria. .
--- NOTE | 2017-09-22 09:04 | Consult Note ---
<Tri Cottrell - Last Filed: 09/22/17 15:26> Oncology HPI - Data of Consult Patient: known to practice within the last 3 years Consult date: 09/22/17 Requesting Physician: Esthela Harrington MD Primary Care Provider: Rick Alegre MD - Consult Narrative Reason for consult: renal cell cancer History of present illness: 32-year-old female, well-known patient of Dr. Alegre's with metastatic renal cell carcinoma with bone metastasis presented to the emergency room last evening on instructions from Dr. Alegre. Her current treament is Opdivo, last given 08/28/17. Has had URI/increased cough, chest pain and fever 2 weeks ago; seen at [facility] [place]. At that time CT was done, negative for PE. Was started on antibiotics. Patient subjectively reports minimal improvement. Has recently seen center director lead teacher who changed her antibiotic to Levaquin and added prednisone. A CT done on arrival last evening showed some groundglass component with questionable infiltrate. At time of intake, reclining in hospital bed, alone in room. Chief complaint is "I still have this cough and feel short of breath. My legs feel weak and heavy. I just do not feel like I am getting better.' She denies fever/chills or night sweats. Is eating/drinking normally. No N/V, diarrhea or constipation. Is making an effort to stop smoking; " I have just one cigarette in the morning w/ coffee, then put on a Nicotine patch and don't have anymore." History of Present Illness: --03/2016: Stage III high risk renal cell carcinoma, clear cell type. --06/19/16: Predominantly lytic permeative destructive lesion involving the proximal radius --June - September 2016: Votrient 800 mg daily. She was not able to tolerate Votrient which has caused mouth sores, nausea and vomiting. --07/05/16: Resection of proximal radius by Dr. Atif Arnold at --08/08/16: Consultation with Dr. Gui Flowers. --Radiation therapy to left forearm 08/22/16 to 09/19/16. --11/05/16: Began OpDivo every 2 weeks Last treatment 12/26/16. --10/2016: Hospitalization at [place] 12/01/16. The patient presented with persistent headache blurred vision and nausea. She also developed urine incontinence. She was noted to have papilledema. She underwent lumbar puncture with sedation at [facility]. The opening pressure was elevated at 39. CSF negative for malignant cells. MRI of the brain was unremarkable. MRI of the spine showed a lesion at T4 and T9 suspicious for metastatic disease. She was seen by neurology and diagnosed with pseudotumor cerebri. She was started on Diamox with good tolerance and benefit. --12/26/16: Hyperthyroidism secondary to OpDivo with TSH of 0.02 and a free T4 of 2.36. --01/03/17: ER visit for diarrhea. --01/06/17: Office visit for evaluation. Admission for Diarrhea. C diff in stool. --01/27/17: Lumbar peritoneal shunt. --01/2017: Two surgical revisions. --02/18/17: Started Xgeva. Resumed OpDivo. --04/14/17: Lumbar shunt revision. --04/30/17: Lumbar shunt removal Review of Systems - Constitutional Constitutional: Present: fatigue, weakness - EENT Eyes: Absent: change in vision Mouth/Throat: Absent: sore throat - Cardiovascular Cardiovascular: Present: dyspnea on exertion. Absent: chest pain - Respiratory Respiratory: Present: cough, dyspnea, dyspnea on exertion - Gastrointestinal Gastrointestinal: Absent: change in bowel habits, diarrhea - Genitourinary Genitourinary: Absent: hematuria, urinary frequency - Musculoskeletal Musculoskeletal: Present: muscle weakness, myalgias (c/o "legs are weak/heavy") - Neurological Neurological: Present: weakness. Absent: confusion, loss of vision - Psychiatric Psychiatric: Present: anxiety ("just don't feel good. Don't know what it is.") - Allergic/Immunologic Allergic/Immunologic: Absent: tongue swelling, seasonal rhinorrhea PFSH Patient Stated Medical History Peripheral Neuropathy Yes: from cancer in bones Other HEENT Yes: PAPAL EDEMA-IIH Asthma Yes: last inhaler use last year Chronic Obstructive Pulmonary Yes Disease (COPD) Other Respiratory Yes: WHEEZING, SOA; Emphysema Gastroesophageal Reflux Yes Disease Gastrointestinal Bleeding Yes Other GI Yes: umbelicus hernia Hx Incontinence Yes: R/T surgery and chemo poss Other Yes: stage 4 kidney cancer with mets to bone Other Musculoskeletal Yes: increased csf production, blurred vision Cellulitis Yes: after kidney surgery Clostridium Difficile Yes: December 2016 Other Yes: cancer of bone Clinic Medical History (Last Reviewed 08/19/17 @ 11:48 by Zion Keene MD) Hyperthyroidism (Resolved Medical 12/26/16) Obesity (BMI 30-39.9) (Chronic Medical) 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 Alegre. Bilateral papilledema due to raised intracranial pressure (Acute Medical) Surgical History: Back surgery. Right nephrectomy Apr, 2016. Left radial resection for bone mets Jul 2016. PAC September 2016. lumbar shunt 01-27-2017. Hysterectomy 2014. laparoscopies x4 - BTL, look at fallopian tubes. TAIL SAWYER shunt. Tonsillectomy Family History: Family History (Last Reviewed 08/19/17 @ 11:48 by Zion Keene MD) Father Diabetes Sister Diabetes No cancer history - Social History Smoking status: Current every day smoker (Patient is trying to Quit smoking. Using Nicotine patches; "have one a day") Packs-years: 15 Substance use type: does not use Alcohol intake frequency: does not drink Household members: spouse, children, family Current occupational status: unemployed, disabled Current residence: Apartment/Private Home Medications Home Medications Medication Instructions Recorded Confirmed Type LORazepam [Ativan] 0.5 mg PO DAILY PRN 12/01/16 09/21/17 History Denosumab [Xgeva] 1 dose SQ Q30D 04/06/17 09/21/17 History Magic Mouthwash [Magic Mouthwash 5 ml PO Q4H PRN 04/06/17 09/21/17 History (Lido/Maalox/Carafate)] Nystatin Oral Liq. [Mycostatin] 5 ml PO DAILY 04/06/17 09/21/17 History Ranitidine [Zantac] 150 mg PO BID 04/06/17 09/21/17 History Albuterol Sulfate [Proair Hfa] 2 puff INH Q4H PRN 09/09/17 09/21/17 History Hydrocodone/APAP 7.5/325 [[place] 1 - 2 tab PO Q6H PRN 09/09/17 09/21/17 History 7.5/325] Hydromorphone HCl 4 - 8 mg PO Q4-6HR PRN 09/09/17 09/21/17 History Levothyroxine Sodium 150 mcg PO ACB 09/09/17 09/21/17 History Albuterol/Ipratropium [Duoneb] 1 unit AEROSOL Q6H 09/21/17 09/21/17 History Levofloxacin [Levaquin] 500 mg PO DAILY 09/21/17 09/21/17 History Nicotine Patch [Nicoderm] 14 mg TD DAILY 09/21/17 09/21/17 History predniSONE [Prednisone] 60 mg PO DAILY 09/21/17 09/21/17 History Allergies Allergy/AdvReac Type Severity Reaction Status Date / Time ibuprofen Allergy Severe DUE TO Verified 09/21/17 17:56 NEPHRECTOMY ondansetron Allergy Intermediate REALLY BAD Verified 09/21/17 17:56 HEADACHES Penicillins Allergy Intermediate Rash Verified 09/21/17 17:56 oxycodone AdvReac Intermediate SLEEPLESSNE Verified 09/21/17 17:56 SS morphine AdvReac Unknown "MAKES ME Verified 09/21/17 17:56 FEEL LIKE I'M GOING TO " Exam Vital signs: Temperature 98.0 F 09/22/17 08:00 Pulse Rate 81 09/22/17 08:00 Respiratory Rate 17 09/22/17 08:00 Blood Pressure 104/64 09/22/17 08:00 Pulse Oximetry 98 09/22/17 08:00 - Constitutional no acute distress, obese, cooperative - Routine HEENT Exam Head: Present: normocephalic Eye: Present: EOMI ENT: Present: mucous membranes moist - Routine Neck Exam Present: supple. Absent: lymphadenopathy - Routine Respiratory Exam Present: decreased breath sounds (slightly diminished thomas. posterior throughout ; no wheezing noted). Absent: rhonchi, wheezes, crackles - Routine Cardiovascular Exam Present: RRR, no murmur - Routine Abdominal Exam Present: soft, normoactive bowel sounds. Absent: mass - Routine Extremities Exam Present: full ROM. Absent: no edema - Routine Skin Exam Present: intact, dry, normal turgor - Routine Neurological Exam Present: alert, oriented X3, normal speech Oncology Results - Labs CBC & Chem 7: 09/22/17 08:18 09/22/17 08:18 Labs: Short CBC 09/22/17 Range/Units 08:18 WBC 28.4 H* (4.5-11.0) T/MM3 Hgb 13.9 (12-16) GM/DL Hct 41.9 (36-46) % Plt Count 314 (130-400) T/MM3 BMP 09/21/17 09/22/17 22:54 08:18 Sodium 140 143 Potassium 4.0 3.9 Chloride 104 105 Carbon Dioxide 25 26 BUN 18.0 H 14.0 Creatinine 0.9 0.9 Glucose 114 H 138 H Calcium 8.9 9.0 Liver Function 09/22/17 Range/Units 08:18 Total Bilirubin 0.40 (0.20-1.30) MG/DL AST 16 (14-36) U/L ALT 27 (1-35) U/L Alkaline Phosphatase 73 (38-126) U/L Albumin 4.1 (3.5-5.0) g/dL Assessment and Plan Assessment and Plan: Assessment 1. Metastatic renal cell carcinoma with bone metastasis. Current treatment is OpDivo, last given 08/28/17. 2. Persistent shortness of air/cough. Recent COPD exacerbation. Follows with pulmonology. 3. Tobacco addiction. Attempting to quit smoking, but continues to smoke 1 a day. 4. Immune mediated toxicities, including hyperthyroidism. Follows with endocrinology, Dr. Keene. 5. 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 Followed by Dr. Arnold in [place]. Plan. Dr. Alegre to see later today. Continue supportive care, antibiotics. Dr. Brown, infectious disease will see today. Also consult with pulmonology pending. <Rick Alegre - Last Filed: 09/22/17 16:36> Oncology HPI - Data of Consult Requesting Physician: Esthela Harrington MD Primary Care Provider: Rick Alegre MD [facility] Patient Stated Medical History Peripheral Neuropathy Yes: from cancer in bones Other HEENT Yes: PAPAL EDEMA-IIH Asthma Yes: last inhaler use last year Chronic Obstructive Pulmonary Yes Disease (COPD) Other Respiratory Yes: WHEEZING, SOA; Emphysema Gastroesophageal Reflux Yes Disease Gastrointestinal Bleeding Yes Other GI Yes: umbelicus hernia Hx Incontinence Yes: R/T surgery and chemo poss Other Yes: stage 4 kidney cancer with mets to bone Other Musculoskeletal Yes: increased csf production, blurred vision Cellulitis Yes: after kidney surgery Clostridium Difficile Yes: December 2016 Other Yes: cancer of bone Clinic Medical History (Last Reviewed 08/19/17 @ 11:48 by Zion Keene MD) Hyperthyroidism (Resolved Medical 12/26/16) Obesity (BMI 30-39.9) (Chronic Medical) 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 Alegre. Bilateral papilledema due to raised intracranial pressure (Acute Medical) Family History: Family History (Last Reviewed 08/19/17 @ 11:48 by Zion Keene MD) Father Diabetes Sister Diabetes Exam Vital signs: Temperature 97.8 F 09/22/17 15:53 Pulse Rate 79 09/22/17 15:53 Respiratory Rate 16 09/22/17 15:53 Blood Pressure 110/69 09/22/17 15:53 Pulse Oximetry 98 09/22/17 15:53 Oncology Results - Labs CBC & Chem 7: 09/22/17 08:18 09/22/17 08:18 Labs: Short CBC 09/22/17 Range/Units 08:18 WBC 28.4 H* (4.5-11.0) T/MM3 Hgb 13.9 (12-16) GM/DL Hct 41.9 (36-46) % Plt Count 314 (130-400) T/MM3 BMP 09/21/17 09/22/17 22:54 08:18 Sodium 140 143 Potassium 4.0 3.9 Chloride 104 105 Carbon Dioxide 25 26 BUN 18.0 H 14.0 Creatinine 0.9 0.9 Glucose 114 H 138 H Calcium 8.9 9.0 Liver Function 09/22/17 Range/Units 08:18 Total Bilirubin 0.40 (0.20-1.30) MG/DL AST 16 (14-36) U/L ALT 27 (1-35) U/L Alkaline Phosphatase 73 (38-126) U/L Albumin 4.1 (3.5-5.0) g/dL Assessment and Plan Assessment and Plan: Patient seen, Chart reviewed. CT images reviewed. Discussed with Dr. Harrington. Cough and wheezing that has progressively worsened over last 2 weeks. Much better today compared to last PM. This may be related to steroids or Vancomcycin. No other changes. Increased WBC noted Could be steroids. To be seen by Dr. Johnson. Consider BAL to look for evidence of pneumanitis from Opdivo. I participated in the development of the plan of care of this patient.
[2017-09-22] MEDS: PANTOPRAZOLE 40 MG INJECTION IVP SCH ×2 (09:19→22:44)
[2017-09-22] MEDS: NYSTATIN 500,000 units/5 ml ORAL LIQUID PO SCH (09:19)
[2017-09-22] MEDS: NICOTINE 14 MG PATCH TD SCH (09:19)
[2017-09-22] MEDS: NICOTINE PATCH REMOVAL TD SCH (09:20)
--- NOTE | 2017-09-22 09:37 | Infectious Disease Consult ---
Infectious Disease Consult Date of Consultation: 09/22/17 Requesting Physician: Esthela Harrington Reason for Consultation: antibiotic recs History of Present Illness: Ms. Grossman is a 32 old woman with a history of stage IV primary clear-cell carcinoma of the right kidney, treated by Dr. Alegre. She has been on Opdivo and Xgeva. She also has a history of COPD. She reports that she has been feeling sick since early August. At that time she had fever and chills for a few days associated with cough shortness of breath and wheezing. She was seen in the emergency room on September [address] angiogram done which was negative for PE. She was given doxycycline and steroids as well as albuterol nebulizer. White blood cell count was 11.7 on that day. She was referred to Dr. Johnson of pulmonology and reports that she saw him last Friday, September 17. He changed her antibiotic from doxycycline to Levaquin. She reports that she was on a steroid taper however she saw Dr. Evans last Friday and he increased her steroids to prednisone [address] Alegre did not give her chemotherapy last Friday because she was still feeling poorly. She presented to the emergency department yesterday with continued cough wheezing some chest discomfort and generalized malaise. She underwent another CT of the chest yesterday looking for pulmonary embolus which was negative. It showed 2 pleural- based nodules. One measures 8.6 mm and the other measures 9.3 mm. There was some mild diffuse mosaic air trapping noted. No specific infiltrates were described. Her white blood cell count was 27,000. Plasma lactate was 2.3. Pro- calcitonin was less than 0.05. She has not had any fever or any hypoxia. Because of her elevated lactate and white blood cell count she was admitted for further evaluation. She did receive a dose of IV levofloxacin in the emergency room and was started on vancomycin as well. Urinalysis is negative. Her sedimentation rate on September 19 was 10. CRP on September 19 was 7.6. Liver function tests are normal. Blood cultures are pending sputum culture is pending and Legionella urinary antigen is pending. She also had blood cultures obtained September 11 which are no growth after 5 days. I've been asked to see her in case this represents an infectious process. 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 She has previously had TB skin tests that were negative, she thinks the most recent one was 1-2 years ago. He denies any known exposures to tuberculosis. She denies any recent travel. She has 5 or 6 dogs at home and a cat that stays outside. She has children but denies that they have been sick recently. Medications Home Medications Medication Instructions Recorded Confirmed Type LORazepam [Ativan] 0.5 mg PO DAILY PRN 12/01/16 09/21/17 History Denosumab [Xgeva] 1 dose SQ Q30D 04/06/17 09/21/17 History Magic Mouthwash [Magic Mouthwash 5 ml PO Q4H PRN 04/06/17 09/21/17 History (Lido/Maalox/Carafate)] Nystatin Oral Liq. [Mycostatin] 5 ml PO DAILY 04/06/17 09/21/17 History Ranitidine [Zantac] 150 mg PO BID 04/06/17 09/21/17 History Albuterol Sulfate [Proair Hfa] 2 puff INH Q4H PRN 09/09/17 09/21/17 History Hydrocodone/APAP 7.5/325 [[place] 1 - 2 tab PO Q6H PRN 09/09/17 09/21/17 History 7.5/325] Hydromorphone HCl 4 - 8 mg PO Q4-6HR PRN 09/09/17 09/21/17 History Levothyroxine Sodium 150 mcg PO ACB 09/09/17 09/21/17 History Albuterol/Ipratropium [Duoneb] 1 unit AEROSOL Q6H 09/21/17 09/21/17 History Levofloxacin [Levaquin] 500 mg PO DAILY 09/21/17 09/21/17 History Nicotine Patch [Nicoderm] 14 mg TD DAILY 09/21/17 09/21/17 History predniSONE [Prednisone] 60 mg PO DAILY 09/21/17 09/21/17 History Allergies Allergy/AdvReac Type Severity Reaction Status Date / Time ibuprofen Allergy Severe DUE TO Verified 09/21/17 17:56 NEPHRECTOMY ondansetron Allergy Intermediate REALLY BAD Verified 09/21/17 17:56 HEADACHES Penicillins Allergy Intermediate Rash Verified 09/21/17 17:56 oxycodone AdvReac Intermediate SLEEPLESSNE Verified 09/21/17 17:56 SS morphine AdvReac Unknown "MAKES ME Verified 09/21/17 17:56 FEEL LIKE I'M GOING TO " [facility] Patient Stated Medical History Peripheral Neuropathy Yes: from cancer in bones Other HEENT Yes: PAPAL EDEMA-IIH Asthma Yes: last inhaler use last year Chronic Obstructive Pulmonary Yes Disease (COPD) Other Respiratory Yes: WHEEZING, SOA; Emphysema Gastroesophageal Reflux Yes Disease Gastrointestinal Bleeding Yes Other GI Yes: umbelicus hernia Hx Incontinence Yes: R/T surgery and chemo poss Other Yes: stage 4 kidney cancer with mets to bone Other Musculoskeletal Yes: increased csf production, blurred vision Cellulitis Yes: after kidney surgery Clostridium Difficile Yes: December 2016 Other Yes: cancer of bone Clinic Medical History (Last Reviewed 08/19/17 @ 11:48 by Zion Keene MD) Hyperthyroidism (Resolved Medical 12/26/16) Obesity (BMI 30-39.9) (Chronic Medical) 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 Alegre. Bilateral papilledema due to raised intracranial pressure (Acute Medical) Surgical History: Back surgery. Right nephrectomy Apr, 2016. Left radial resection for bone mets Jul 2016. PAC September 2016. lumbar shunt 01-27-2017. Hysterectomy 2014. laparoscopies x4 - BTL, look at fallopian tubes. [employer] shunt. Tonsillectomy Family History: Family History (Last Reviewed 08/19/17 @ 11:48 by Zion Keene MD) Father Diabetes Sister Diabetes - Social History Smoking status: Former smoker (recently quit) Packs-years: 15 Substance use type: does not use Alcohol intake frequency: does not drink Household members: spouse, children, family Current occupational status: unemployed, disabled Current residence: Apartment/Private Home Review of Systems All systems PM: 10-point ROS was reviewed, no additional remarkable complaints except - Constitutional Constitutional: Present: malaise. Absent: chills, fever(s) (recent), headache(s ) - EENMT Eyes: Absent: change in vision Ears: Absent: ear pain Mouth/Throat: Absent: sore throat - Cardiovascular Cardiovascular: Present: chest pain (posterior, under ribs) - Respiratory Respiratory: Present: cough (productive), wheezing - Gastrointestinal Gastrointestinal: Absent: abdominal pain, diarrhea, nausea, vomiting - Genitourinary Genitourinary: Absent: dysuria - Musculoskeletal Musculoskeletal: Present: arthralgias Musculoskeletal Comments: arms and legs feel "heavy" - Integumentary/Breasts Integumentary: Absent: rash Integumentary Comments: she has a few tiny, pinpoint erythematous skin lesions on arms that might be petechiae, but really appear unimpressive - Neurological Neurological: Absent: headache(s) Exam Vital Signs: Temperature 98.0 F 09/22/17 08:00 Pulse Rate 81 09/22/17 08:00 Respiratory Rate 17 09/22/17 08:00 Blood Pressure 104/64 09/22/17 08:00 Pulse Oximetry 98 09/22/17 08:00 Height/Weight/BMI: Height 1.68 m Weight 96.3 kg Body Mass Index 34.1 - Constitutional Present: no acute distress, well nourished, well developed - Routine HEENT Exam Head: Present: normocephalic, atraumatic Eye: Present: EOMI, PERRL ENT: Present: mucous membranes moist, oropharynx clear, dentition normal - Routine Neck Exam Present: supple. Absent: lymphadenopathy - Routine Respiratory Exam Present: CTA bilaterally. Absent: wheezes - Routine Cardiovascular Exam Present: RRR - Routine Abdominal Exam Present: soft, normoactive bowel sounds, non distended, non tender - Routine Exam Comments: no abraham, no bladder distention - Routine Extremities Exam Absent: cyanosis, clubbing, edema - Routine Skin Exam Absent: rash Comments: <5 tiny erythematous spots on upper arms that I can barely see. Port site without redness. - Routine Neurological Exam Present: alert, oriented X3, CN II-XII intact, normal speech. Absent: motor deficit - Routine Psychiatric Exam Present: normal affect Results - Labs CBC & Chem 7: 09/22/17 08:18 09/22/17 08:18 Labs: Laboratory Tests 09/21/17 09/21/17 19:10 19:10 Plasma Lactate 2.3 H Procalcitonin < 0.05 Microbiology Results: Microbiology 09/21/17 22:55 Sputum, Expectorated Gram Stain - Final Not performed 09/21/17 22:55 Sputum, Expectorated Sputum Culture - Preliminary Culture Initiated - Results Pending Impression: Leukocytosis, suspect secondary to recent steroids Elevated lactate Cough, wheezing, ? secondary to COPD exacerbation 2 pleural-based lung nodules on CT of the chest Primary clear-cell carcinoma of the right kidney, stage IV with metastasis to bone, followed by Dr. Alegre, with recent chemotherapy Status post AGRICULT[employer] ADVISER shunt placement Recommendation: I am not convinced that she has an infectious pulmonary process. I suspect that her elevated white blood cell count is related to recent steroid use. I reviewed her CT of the chest and I can only visualize one of these pleural- based nodules. I don't see anything that looks like infectious infiltrates in the chest. I also don't see any skin lesions that look concerning. Because she has been on chemotherapy I will check fungal antigen tests and a TB interferon however I'm not very suspicious that she has an infectious process. I will check a CT of her sinuses just to exclude sinusitis as a cause of her cough.
--- NOTE | 2017-09-22 10:03 | Pulmonology Consult Note ---
<Jo Agrawal D - Last Filed: 09/22/17 23:52> History of Present Illness Consult date: 09/22/17 Reason for consult: cough Chief complaint: wheezing, cough History of present illness: This is a 32 yo female with a current HX of renal cell carcinoma (dx in 2016 s/ p nephrectomy) and COPD. She apparently developed a fever and cough two weeks ago and was orioginally treated with antibiotics with doxy. Was seen in our clinic and CT from July showed air trapping and no PE, PFT showed severe COPD on PFT. Was started on Trelegy, continued a/a QID and started on levaquin for exacerbation. Unfortunately she continued to feel bad and contacted her oncologist and was instructed to go to the ED. CT in the ER was negative for PE but continued to show air trapping and a Left pleural based nodule that appears stable since July. She still has a cough with sputum noted and chest wheezing at times. We have been consulted for her pulmonary issues and appreciate the consult. Review of Systems - Constitutional Constitutional: Present: fatigue, fever(s) - EENT Eyes: Absent: blurry vision, change in vision Nose: Absent: change in smell, nosebleeds Mouth/Throat: Present: mucosa moist, normal dentition - Cardiovascular Cardiovascular: Absent: chest pain, palpitations, syncope - Respiratory Respiratory: Present: cough, wheezing. Absent: hemoptysis, dyspnea on exertion - Gastrointestinal Gastrointestinal: Absent: abdominal pain, change in bowel habits - Genitourinary Genitourinary: Absent: difficulty urinating, dysuria - Musculoskeletal Musculoskeletal: Absent: abnormal gait, joint swelling, limited range of motion - Neurological Neurological: Absent: abnormal gait, abnormal movements, abnormal speech - Psychiatric Psychiatric: Absent: abnormal sleep pattern, anxiety, behavioral changes - Endocrine Endocrine: Absent: cold intolerance, excessive sweating, flushing - Hematologic/Lymphatic Hematologic/Lymphatic: Absent: easy bleeding, easy bruising - Allergic/Immunologic Allergic/Immunologic: Absent: tongue swelling, throat swelling PFSH Patient Stated Medical History Peripheral Neuropathy Yes: from cancer in bones Other HEENT Yes: PAPAL EDEMA-IIH Asthma Yes: last inhaler use last year Chronic Obstructive Pulmonary Yes Disease (COPD) Other Respiratory Yes: WHEEZING, SOA; Emphysema Gastroesophageal Reflux Yes Disease Gastrointestinal Bleeding Yes Other GI Yes: umbelicus hernia Hx Incontinence Yes: R/T surgery and chemo poss Other Yes: stage 4 kidney cancer with mets to bone Other Musculoskeletal Yes: increased csf production, blurred vision Cellulitis Yes: after kidney surgery Clostridium Difficile Yes: December 2016 Other Yes: cancer of bone Clinic Medical History (Last Reviewed 08/19/17 @ 11:48 by Zion Keene MD) Hyperthyroidism (Resolved Medical 12/26/16) Obesity (BMI 30-39.9) (Chronic Medical) 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 Alegre. Bilateral papilledema due to raised intracranial pressure (Acute Medical) Surgical History: Back surgery. Right nephrectomy Apr, 2016. Left radial resection for bone mets Jul 2016. PAC September 2016. lumbar shunt 01-27-2017. Hysterectomy 2014. laparoscopies x4 - BTL, look at fallopian tubes. [employer] shunt. Tonsillectomy Family History: Family History (Last Reviewed 08/19/17 @ 11:48 by Zion Keene MD) Father Diabetes Sister Diabetes - Social History Smoking status: Former smoker Packs-years: 15 Quit date: 09/15/17 Substance use type: does not use Alcohol intake frequency: does not drink Household members: spouse, children, family Current occupational status: unemployed, disabled Current residence: Apartment/Private Home Medications Home Medications Medication Instructions Recorded Confirmed Type LORazepam [Ativan] 0.5 mg PO DAILY PRN 12/01/16 09/21/17 History Denosumab [Xgeva] 1 dose SQ Q30D 04/06/17 09/21/17 History Magic Mouthwash [Magic Mouthwash 5 ml PO Q4H PRN 04/06/17 09/21/17 History (Lido/Maalox/Carafate)] Nystatin Oral Liq. [Mycostatin] 5 ml PO DAILY 04/06/17 09/21/17 History Ranitidine [Zantac] 150 mg PO BID 04/06/17 09/21/17 History Albuterol Sulfate [Proair Hfa] 2 puff INH Q4H PRN 09/09/17 09/21/17 History Hydrocodone/APAP 7.5/325 [[place] 1 - 2 tab PO Q6H PRN 09/09/17 09/21/17 History 7.5/325] Hydromorphone HCl 4 - 8 mg PO Q4-6HR PRN 09/09/17 09/21/17 History Levothyroxine Sodium 150 mcg PO ACB 09/09/17 09/21/17 History Albuterol/Ipratropium [Duoneb] 1 unit AEROSOL Q6H 09/21/17 09/21/17 History Levofloxacin [Levaquin] 500 mg PO DAILY 09/21/17 09/21/17 History Nicotine Patch [Nicoderm] 14 mg TD DAILY 09/21/17 09/21/17 History predniSONE [Prednisone] 60 mg PO DAILY 09/21/17 09/21/17 History Allergies Allergy/AdvReac Type Severity Reaction Status Date / Time ibuprofen Allergy Severe DUE TO Verified 09/21/17 17:56 NEPHRECTOMY ondansetron Allergy Intermediate REALLY BAD Verified 09/21/17 17:56 HEADACHES Penicillins Allergy Intermediate Rash Verified 09/21/17 17:56 oxycodone AdvReac Intermediate SLEEPLESSNE Verified 09/21/17 17:56 SS morphine AdvReac Unknown "MAKES ME Verified 09/21/17 17:56 FEEL LIKE I'M GOING TO " Exam Vital signs: Temperature 98.0 F 09/22/17 08:00 Pulse Rate 81 09/22/17 08:00 Respiratory Rate 17 09/22/17 08:00 Blood Pressure 104/64 09/22/17 08:00 Pulse Oximetry 98 09/22/17 08:00 - Constitutional no acute distress, obese, cooperative - Routine HEENT Exam Head: Present: normocephalic, atraumatic Eye: Present: EOMI, PERRL ENT: Present: mucous membranes moist - Routine Neck Exam Present: supple, full ROM, trachea midline - Routine Respiratory Exam Present: decreased breath sounds, wheezes. Absent: accessory muscle use, patient mechanically ventilated Comments: faint wheezes - Routine Cardiovascular Exam Present: RRR, S1, S2, no murmur - Routine Abdominal Exam Present: soft, normoactive bowel sounds - Routine Extremities Exam Present: no edema, full ROM. Absent: cyanosis, clubbing, edema - Routine Back/Spine/Pelvis Exam Back/Spine: Present: full ROM - Routine Skin Exam Present: intact, dry. Absent: cyanosis, erythema - Routine Neurological Exam Present: alert, oriented X3, CN II-XII intact - Routine Psychiatric Exam Present: normal affect, normal thought process Results - Laboratory Findings CBC and BMP: 09/22/17 08:18 09/22/17 22:43 Abnormal lab findings: Abnormal Labs 09/21/17 09/22/17 09/22/17 22:54 08:18 08:18 WBC 28.4 H* MPV 8.9 L Neutrophils % (Manual) 91.0 H Lymphocytes % (Manual) 6.0 L Neutrophils # (Manual) 25.8 H Monocytes # (Manual) 0.9 H BUN 18.0 H Glucose 114 H 138 H - Diagnostic Findings CT scan - chest: image reviewed (CT chest with air trapping and Left pleural based nodule which appears stable from 08/11) Assessment and Plan - Assessment and Plan Abnormal CT with MARIA ESTHER pleural based nodule COPD with exacerbation Immune compromised Renal cell carcinoma with mets Plan: Pt currently on RA, tolerating well. On BT's with a/a q6hr a nd solumedrol 125mg q6hr, will wean solumedrol and start pulmicort along with increasing a/a to q4hr. ID consulted, afebrile, WBC 20's although has been on high dose prednisone OP. Currently on levaquin and vanco per ID now. Not convinced she has an infectious process but ID checking fungal antigen tests and a TB interferon along with a CT sinuses to r/o sinusitis. Will continue to follow - Time Spent With Patient Total time spent is greater than 50% in coordination of care (as documented) at patient's floor/unit and/or counseling patient: 25 - 35 minutes <Eldon Johnson - Last Filed: 09/23/17 14:39> [facility] Patient Stated Medical History Peripheral Neuropathy Yes: from cancer in bones Other HEENT Yes: PAPAL EDEMA-IIH Asthma Yes: last inhaler use last year Chronic Obstructive Pulmonary Yes Disease (COPD) Other Respiratory Yes: WHEEZING, SOA; Emphysema Gastroesophageal Reflux Yes Disease Gastrointestinal Bleeding Yes Other GI Yes: umbelicus hernia Hx Incontinence Yes: R/T surgery and chemo poss Other Yes: stage 4 kidney cancer with mets to bone Other Musculoskeletal Yes: increased csf production, blurred vision Cellulitis Yes: after kidney surgery Clostridium Difficile Yes: December 2016 Other Yes: cancer of bone Clinic Medical History (Last Reviewed 08/19/17 @ 11:48 by Zion Keene MD) Hyperthyroidism (Resolved Medical 12/26/16) Obesity (BMI 30-39.9) (Chronic Medical) 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 Alegre. Bilateral papilledema due to raised intracranial pressure (Acute Medical) Family History: Family History (Last Reviewed 08/19/17 @ 11:48 by Zion Keene MD) Father Diabetes Sister Diabetes Exam Vital signs: Temperature 97.8 F 09/23/17 07:25 Pulse Rate 76 09/23/17 08:00 Respiratory Rate 18 09/23/17 11:36 Blood Pressure 86/40 09/23/17 07:25 Pulse Oximetry 90 09/23/17 11:36 Results - Laboratory Findings CBC and BMP: 09/23/17 04:55 09/23/17 04:55 Abnormal lab findings: Abnormal Labs 09/21/17 09/22/17 09/22/17 22:54 08:18 08:18 WBC 28.4 H* MPV 8.9 L Neutrophils % (Manual) 91.0 H Lymphocytes % (Manual) 6.0 L Neutrophils # (Manual) 25.8 H Monocytes # (Manual) 0.9 H Carbon Dioxide BUN 18.0 H Glucose 114 H 138 H 09/22/17 09/23/17 09/23/17 22:43 04:55 04:55 WBC 36.3 H* MPV 9.3 L Neutrophils % (Manual) 89.0 H Lymphocytes % (Manual) 7.0 L Neutrophils # (Manual) 32.3 H Monocytes # (Manual) Carbon Dioxide 21 L BUN Glucose 241 H 143 H Assessment and Plan (1) Acute exacerbation of chronic obstructive pulmonary disease (COPD) Status: Acute Assessment and plan: Severe airflow obstruction, Gold 3 (Stage D) with significant wheeze and bronchospasm due to URTI. FEV1 47% predicted, highly symptomatic Recently treated with prednisone, Levaquin 500 x 5 days Continue neb albuterol/iprat qid she was given Trelegy once daily for outpatient use but has not received that yet. It is possible the the patient is having exacerbation of obstructive airways disease due to Opdivo. I know that this is oncology's concern. I will discuss with them their recommendations regarding further evaluation. It is possible that obliterative bronchiolitis could present in such a way, as a complication of drug therapy or as an idiopathic process. Bronchoscopy would potentially rule out infectious bronchiolitis, but would not be able to rule in B.O. or drug toxicity. We will discuss with Dr Alegre In the meantime, I would continue IV corticosteroids and bronchodilators. O2 to keep sat > 90% Current Visit: Yes - Time Spent With Patient Total time spent is greater than 50% in coordination of care (as documented) at patient's floor/unit and/or counseling patient:
[2017-09-22] MEDS ORDERED: IOHEXOL 300mg/ml 50ml INJECTION ONE (13:12)
[2017-09-22] MEDS ORDERED: SALINE FLUSH 10ml SYRINGE ONE (13:36)
--- NOTE | 2017-09-22 14:23 | CT Scan Report ---
Indication: cough PROCEDURE: CT sinus wo con: Encounter: Initial Comparison: None. Three-dimensional volume rendered reconstructions were performed. Automated Exposure Control and Iterative Reconstruction dose reducing techniques were utilized. FINDINGS: There is a small mucous retention cyst in the medial left maxillary sinus.. The frontal sinuses are hypoplastic and the ethmoid sinuses are clear. The sphenoidal sinuses are clear. The osseous nasal septum is slightly displaced to the right anteriorly. There is no definite obstruction of the osteomeatal unit on either the left or right side. No definite bony destruction. IMPRESSION: No definite acute or chronic sinusitis. No evidence for bony destruction or osteomeatal unit obstruction. .
--- NOTE | 2017-09-22 15:42 | Fluoroscopy Report ---
Indication:unable to aspirate with multiple cath flows Procedure:FL central line chk w con PORT CATHETER PATENCY CHECK: Technique: The patient arrived with their right-sided port catheter accessed. Lifestyle Director imaging of the patient's port catheter were obtained. Approximately 7 cc of Omnipaque 300 were administered through the catheter while fluoroscopic imaging was obtained. Findings: The tip of the catheter is located near the cavoatrial junction. Contrast flows freely through the catheter with minimal resistance. There is a disruption of flow contrast from the tip of the catheter, as well as retrograde distribution of contrast up the distal half of the catheter. I am unable to aspirate blood. These findings are consistent with a large fibrin sheath involving the distal half of the catheter. The remainder of the exam is negative. There is no extravasation of contrast to suspect a catheter fracture or leak. The catheter was then flushed with normal saline. Impression: Findings suggestive of a large fibrin sheath involving the distal half of the catheter. Fluoroscopy dose: 8.55 mGy (Cumulative air kerma) Oli Garcia RPA/KELSEY performed this under my personal supervision. .
[2017-09-22] MEDS ORDERED: ALTEPLASE (Cathflo*) 2mg INJECTION IV ONE (16:07)
[2017-09-22] MEDS: LORazepam 0.5 MG TABLET PO PRN (20:17)
[2017-09-23] MEDS: ALBUTEROL/IPRATROPIUM 2.5mg-0.5mg/3ml NEB AEROSOL SCH ×5 (01:54→22:14)
[2017-09-23] MEDS: METHYLPREDNISOLONE SOD SUCC 125mg/2ml INJECTION IVP SCH ×4 (04:30→21:41)
[2017-09-23] MEDS: SALINE FLUSH 10ml SYRINGE IVF PRN ×4 (04:31→21:40)
[2017-09-23] MEDS: LEVOTHYROXINE 150 MCG TABLET PO SCH (06:27)
[2017-09-23] MEDS: PANTOPRAZOLE 40 MG INJECTION IVP SCH ×2 (09:35→21:40)
[2017-09-23] MEDS: NICOTINE 14 MG PATCH TD SCH (09:36)
[2017-09-23] MEDS: NYSTATIN 500,000 units/5 ml ORAL LIQUID PO SCH (09:36)
[2017-09-23] MEDS: NICOTINE PATCH REMOVAL TD SCH (09:36)
[2017-09-23] MEDS: BUDESONIDE INH.SOLN 0.5mg/2ml NEB AEROSOL SCH ×2 (09:44→22:14)
--- NOTE | 2017-09-23 11:38 | Progress Note ---
<Tri Cottrell - Last Filed: 09/24/17 15:01> Oncology Subjective Reclining in hospital bed, alone in room. Some anxiety, "I'm not getting any better." States had significant shortness of air during the night. Denies currently. Continues to have leg pain/weakness. Denies dysuria/hematuria, no diarrhea or constipation. General: No fever, no night sweats Eyes: No redness, no pain, no diplopia ENT: No mouth sores, no trouble swallowing Cardiac: No chest pain no palpitations Pulmonary: + cough, + shortness of breath, no wheezing Abdomen: No pain, no nausea vomiting, no diarrhea or constipation : No urgency, frequency, dysuria, or hematuria Musculoskeletal: weakness in legs Neurological: No headaches, no focal weakness Skin: No rash, no sores Psychiatric: + anxiety secondary to illness, "not getting better" Exam Vital signs: Temperature 97.8 F 09/23/17 07:25 Pulse Rate 76 09/23/17 08:00 Respiratory Rate 20 09/23/17 07:25 Blood Pressure 86/40 09/23/17 07:25 Pulse Oximetry 94 09/23/17 07:25 - Constitutional mild distress, well developed, cooperative - Routine HEENT Exam Head: Present: normocephalic Eye: Present: EOMI ENT: Present: mucous membranes moist - Routine Neck Exam Present: supple. Absent: lymphadenopathy - Routine Respiratory Exam Present: decreased breath sounds, wheezes (expiratory wheezing right lower lobe posteriorly) - Routine Cardiovascular Exam Present: RRR, no murmur - Routine Abdominal Exam Present: soft, normoactive bowel sounds. Absent: mass - Routine Extremities Exam Present: no edema - Routine Skin Exam Present: intact, dry - Routine Neurological Exam Present: alert, oriented X3 - Routine Psychiatric Exam Present: normal affect, anxious (mildly anxious, questions why she is not getting better) Oncology Results - Labs CBC & Chem 7: 09/24/17 09:24 09/24/17 09:24 Labs: Short CBC 09/23/17 Range/Units 04:55 WBC 36.3 H* (4.5-11.0) T/MM3 Hgb 12.9 (12-16) GM/DL Hct 39.1 (36-46) % Plt Count 335 (130-400) T/MM3 BMP 09/22/17 09/23/17 22:43 04:55 Sodium 139 142 Potassium 4.0 3.9 Chloride 104 106 Carbon Dioxide 21 L 26 BUN 17.0 16.0 Creatinine 1.0 0.9 Glucose 241 H 143 H Calcium 8.7 8.9 Cardiac Enzymes 09/22/17 Range/Units 08:18 Total Creatine Kinase 32 (30-135) U/L Assessment and Plan Assessment and Plan: Assessment 1. Metastatic renal cell carcinoma with bone metastasis. Current treatment is OpDivo, last given 08/28/17. 2. Persistent shortness of air/cough. Recent COPD exacerbation. ? sepsis. Follows with Infectious disease and pulmonology. Awaiting recommendations from Dr. Ch 3. Tobacco addiction. Attempting to quit smoking; but continues to smoke 1 cigarette a day. 4. Immune mediated toxicities, including hyperthyroidism. Follows with endocrinology, Dr. Keene. 5. 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 Followed by Dr. Arnold in [place]. Plan Continue supportive care, antibiotics per ID. Dr. Obregon discussed w/ patient; likely SOA, persistent cough is related to COPD; does not appear to be related to OpDivo, but will continue to follow closely. Will await recommendations of pulmonology. Encouraged continued abstinence from smoking. Discussed slow, deep breathing; take one day at a time. - Time Spent With Patient Total time spent is greater than 50% in coordination of care (as documented) at patient's floor/unit and/or counseling patient: less than 15 minutes <Mary Obregon - Last Filed: 09/26/17 16:41> Exam Vital signs: Temperature 96.5 F L 09/26/17 08:57 Pulse Rate 81 09/26/17 08:57 Respiratory Rate 24 09/26/17 13:15 Blood Pressure 124/62 09/26/17 08:57 Pulse Oximetry 95 09/26/17 13:15 Oncology Results - Labs CBC & Chem 7: 09/26/17 04:19 09/26/17 04:19 Labs: Short CBC 09/26/17 Range/Units 04:19 WBC 19.6 H (4.5-11.0) T/MM3 Hgb 12.5 (12-16) GM/DL Hct 39.2 (36-46) % Plt Count 273 (130-400) T/MM3 BMP 09/26/17 04:19 Sodium 141 Potassium 3.7 Chloride 105 Carbon Dioxide 28 BUN 20.0 H Creatinine 0.9 Glucose 106 Calcium 7.7 L Cardiac Enzymes 09/25/17 Range/Units 21:22 Troponin I < 0.012 (0-0.12) ng/ml Assessment and Plan Assessment and Plan: I have interviewed and examined the patient with Aleena Cottrell APRN. I concur with current management as per pulmonary. - Time Spent With Patient Total time spent is greater than 50% in coordination of care (as documented) at patient's floor/unit and/or counseling patient:
[2017-09-23] MEDS: HYDROMORPHONE 2 MG TABLET PO PRN (15:05)
[2017-09-23] MEDS ORDERED: GLUCOSE ORAL GEL 40% 37.5gm PO PRN (19:17)
[2017-09-23] MEDS ORDERED: DEXTROSE 50% SYRINGE 50ml (1 AMP) IVP PRN (19:17)
--- NOTE | 2017-09-23 20:01 | Progress Note ---
- Date 09/23/17 Subjective: The patient was seen this evening in her room. She had previously been out for a walk. She states when she walks her legs feel heavy. She denies any lightheadedness. She continues to have productive cough that is occasionally dark in color with occasional mild streaks of blood. She has intermittent dyspnea. She states her appetite is decreased. She is having normal bowel movements. She has difficulty sleeping, she thinks secondary to steroids. Steroid dose was decreased today. Objective Vital signs: Temperature 98.6 F 09/23/17 15:07 Pulse Rate 89 09/23/17 16:00 Respiratory Rate 20 09/23/17 15:07 Blood Pressure 120/58 09/23/17 15:07 Pulse Oximetry 97 09/23/17 15:07 Height/Weight/BMI: Height 1.68 m Weight 96.3 kg Body Mass Index 34.1 Comments: GEN-alert, oriented, no acute distress CV-regular rate and rhythm CHEST-expiratory wheezes bilaterally ABD-soft, nontender with positive bowel sounds -no Cook EXT-no edema NEURO-no focal deficits SKIN-warm and dry Results - Labs CBC & Chem 7: 09/23/17 04:55 09/23/17 04:55 Microbiology Results: Microbiology 09/21/17 22:55 Sputum, Expectorated Gram Stain - Final 09/21/17 22:55 Sputum, Expectorated Sputum Culture - Preliminary Early growth Assessment and Plan (1) Pneumonia Current visit: Yes Status: Acute (2) Reactive airway disease Current visit: Yes Status: Acute (3) Leukocytosis Current visit: Yes Status: Acute (4) Renal cell carcinoma Current visit: Yes Status: Acute (5) Hyperglycemia Current visit: Yes Status: Acute (6) Rash Current visit: Yes Status: Acute Assessment and Plan: Impression Cough with wheezing of uncertain etiology. Has not improved significantly with steroids, doxycycline or recent Levaquin. CTA negative for PE. History of pulmonary dysplasia at -uncertain if this is contributing to symptoms COPD Possible COPD exacerbation recent discontinuation of tobacco one week ago Fatigue Myalgias Mild hyperglycemia-likely secondary to steroids Leukocytosis-secondary to steroids versus infectious process versus other Chest pain-possibly secondary to cough with pleurisy versus less likely pericarditis (normal sedimentation rate and C-reactive protein, normal EKG, no pericardial effusion seen on CT) Metastatic clear cell carcinoma with bone metastasis on chemotherapy Immunosuppression with steroids, clear cell cancer Generalized weakness Plan Overall, the patient feels about the same. Her steroids were increased to 80 mg Solu-Medrol IV every 6. She remains on breathing treatments. Antibiotics were discontinued yesterday by Dr. Brown. White count has increased, but the patient has not had fever or increase in cough. I did discuss the patient today with Dr. Johnson, and he is considering BAL. He will discuss prior with Dr. Alegre. Testing for cryptococcus and histoplasmosis is pending. We'll monitor Accu-Cheks and give sliding scale insulin if needed regarding hyperglycemia. Check CBC and basic metabolic profile in the morning. - Physician Narrative Narrative: Date: 09/23/17 Time: 1955 Hospital Course Summary Disclaimer: The visit summary below is not to be considered part of the above Progress Note.
[2017-09-23] MEDS: INSULIN ASPART 100unit/ml INJECTION SQ PRN (20:43)
[2017-09-23] MEDS: GUAIFENESIN LA 600 MG TABLET PO SCH (20:43)
[2017-09-24] MEDS: ALBUTEROL/IPRATROPIUM 2.5mg-0.5mg/3ml NEB AEROSOL SCH ×6 (02:16→20:32)
[2017-09-24] MEDS: SALINE FLUSH 10ml SYRINGE IVF PRN ×4 (03:07→15:53)
[2017-09-24] MEDS: METHYLPREDNISOLONE SOD SUCC 125mg/2ml INJECTION IVP SCH ×3 (03:10→15:50)
[2017-09-24] MEDS: LEVOTHYROXINE 150 MCG TABLET PO SCH (06:24)
[2017-09-24] MEDS ORDERED: VANCOMYCIN - PHARMACY CONSULT MC ONE (08:25)
--- NOTE | 2017-09-24 08:36 | ID Progress Note ---
Subjective Date: 09/24/17 Subjective: Ms. Grossman reports that she had L facial swelling last night. This seems to have improved. She also reports some generalized flushing/redness upper neck and chest. Question if this was from the Vancomycin, but this was stopped on Friday. This morning, I noticed that one of her blood cultures was positive yesterday for GPC resembling Strep. I'm not sure if this was called to anyone. She hasn't been started on antibiotics. She continues to have cough. She also reports difficulty sleeping at night. Exam Vital Signs: Temperature 97.9 F 09/24/17 07:35 Pulse Rate 74 09/24/17 07:58 Respiratory Rate 20 09/24/17 07:35 Blood Pressure 110/62 09/24/17 07:35 Pulse Oximetry 97 09/24/17 07:35 Height/Weight/BMI: Height 1.68 m Weight 99.8 kg Body Mass Index 34.1 - Constitutional Present: no acute distress, well nourished, well developed - Routine HEENT Exam Head: Present: normocephalic, atraumatic Eye: Present: EOMI, PERRL ENT: Present: mucous membranes moist, oropharynx clear - Routine Neck Exam Present: supple - Routine Respiratory Exam Present: CTA bilaterally Comments: on room air - Routine Cardiovascular Exam Present: RRR - Routine Abdominal Exam Present: soft, normoactive bowel sounds, non distended, non tender - Routine Extremities Exam Absent: cyanosis, clubbing, edema - Routine Skin Exam Present: intact. Absent: rash Comments: Port site without redness - Routine Neurological Exam Present: alert, oriented X3, CN II-XII intact, normal speech. Absent: motor deficit - Routine Psychiatric Exam Present: normal affect Results - Labs CBC & Chem 7: 09/23/17 04:55 09/23/17 04:55 Microbiology Results: Microbiology 09/22/17 22:43 Blood Cryptococcal Antigen (Serum) - Final 09/21/17 22:55 Sputum, Expectorated Gram Stain - Final 09/21/17 22:55 Sputum, Expectorated Sputum Culture - Preliminary Early growth - possible Haemophilus sp 09/21/17 Blood culture: Strep species Impression: Leukocytosis Elevated lactate Cough, wheezing, ? secondary to COPD exacerbation vs pneumonia. Sputum culture with early growth, ? Haemophilus 2 pleural-based lung nodules on CT of the chest Primary clear-cell carcinoma of the right kidney, stage IV with metastasis to bone, followed by Dr. Alegre, with recent chemotherapy Status post [employer] shunt placement One of two blood cultures 09/21 with Strep species, ? contaminant vs septicemia Recommendation: Will restart antibiotics. Will use ceftriaxone. If the Strep is identified as a viridans Strep and only in one bottle, it is likely a contaminant. If it is in more than one bottle, would continue to treat it.
[2017-09-24] MEDS: BUDESONIDE INH.SOLN 0.5mg/2ml NEB AEROSOL SCH ×2 (09:02→16:27)
[2017-09-24] MEDS: PANTOPRAZOLE 40 MG INJECTION IVP SCH ×3 (09:17→22:17)
[2017-09-24] MEDS: NYSTATIN 500,000 units/5 ml ORAL LIQUID PO SCH (09:18)
[2017-09-24] MEDS: CEFTRIAXONE 1 G in NS 100 ML IV SCH (09:18)
[2017-09-24] MEDS: NICOTINE 14 MG PATCH TD SCH (09:18)
[2017-09-24] MEDS: NICOTINE PATCH REMOVAL TD SCH (09:19)
[2017-09-24] MEDS: GUAIFENESIN LA 600 MG TABLET PO SCH ×2 (09:19→22:17)
[2017-09-24] MEDS ORDERED: VANCOMYCIN 1,750 MG in NS 500 ML IV SCH (10:00)
--- NOTE | 2017-09-24 10:22 | Pulmonology Progress Note ---
Subjective Interval history: Pt in bed, states she feels "bad". + cough with sputum noted. Exam Vital signs: Temperature 97.9 F 09/24/17 07:35 Pulse Rate 74 09/24/17 07:58 Respiratory Rate 18 09/24/17 09:03 Blood Pressure 110/62 09/24/17 07:35 Pulse Oximetry 96 09/24/17 09:03 Inpatient Medications: Generic Name Dose Route Start Last Admin Trade Name Freq PRN Reason Stop Dose Admin Albuterol Sulfate 2.5 mg 09/21/17 21:55 Proventil Neb (0.083%) AEROSOL Q4H PRN Shortness of air/wheezing Albuterol/Ipratropium 3 ml 09/23/17 04:00 09/24/17 09:03 Duoneb AEROSOL 3 ml Q4H JOSE ALBERTO Administration Benzonatate 200 mg 09/24/17 15:00 Tessalon Perles PO TID JOSE ALBERTO Budesonide 0.5 mg 09/23/17 07:00 09/24/17 09:02 Pulmicort Inhalation AEROSOL 0.5 mg RTBID JOSE ALBERTO Administration Dextrose 20 ml 09/23/17 19:17 D50%W IVP PRN PRN Hypoglycemia Glucose 37.5 gm 09/23/17 19:17 Glutose 15 PO PRN PRN Hypoglycemia Guaifenesin 1,200 mg 09/23/17 21:00 09/24/17 09:19 Mucinex La PO Not Given BID JOSE ALBERTO Hydromorphone HCl 4 mg 09/23/17 14:52 09/23/17 15:05 Dilaudid PO 4 mg Q4H PRN Administration Pain Ceftriaxone Sodium 1 g/ Sodium 100 mls @ 200 mls/hr 09/24/17 09:00 09/24/17 09:18 Chloride IV 200 mls/hr Q24H JOSE ALBERTO Administration Insulin Aspart 1 - 5 unit 09/23/17 19:17 09/23/17 20:43 Novolog SQ 2 unit SS PRN Administration Hyperglycemia Protocol Levothyroxine Sodium 150 mcg 09/22/17 06:30 09/24/17 06:24 Synthroid PO 150 mcg ACB JOSE ALBERTO Administration Lidocaine HCl 5 ml 09/21/17 21:55 Magic Mouthwash (Lido/Maalox/Carafate) PO Q4H PRN Mouth pain Lorazepam 0.5 mg 09/22/17 17:07 09/22/17 20:17 Ativan PO 0.5 mg HS PRN Administration Anxiety Menthol 1 lozenge 09/24/17 09:10 Ricola Sf MM PRN PRN Cough Methylprednisolone Sodium Succinate 80 mg 09/23/17 03:00 09/24/17 09:17 Solu-Medrol IVP 09/28/17 02:59 80 mg Q6HR JOSE ALBERTO Administration Nicotine 14 mg 09/22/17 09:00 09/24/17 09:18 Nicoderm TD 14 mg DAILY JOSE ALBERTO Administration Nicotine 1 removal 09/22/17 09:00 09/24/17 09:19 Nicotine Patch Removal TD 1 removal DAILY JOSE ALBERTO Administration Nystatin 5 ml 09/22/17 09:00 09/24/17 09:18 Mycostatin PO 5 ml DAILY JOSE ALBERTO Administration Pantoprazole Sodium 40 mg 09/21/17 21:55 09/24/17 09:17 Protonix Iv IVP 40 mg Q12H JOSE ALBERTO Administration Sodium Chloride 10 - 80 ml 09/21/17 18:32 09/24/17 09:18 Iv Flush IVF 10 ml PRN PRN Administration Flushing Discontinued Medications Generic Name Dose Route Start Last Admin Trade Name Freq PRN Reason Stop Dose Admin Hydrocodone Bitart/Acetaminophen 1 tab 09/21/17 21:55 09/21/17 23:01 [place] 7.5/325 PO 1 tab Q6H PRN Administration Pain Albuterol/Ipratropium 3 ml 09/21/17 21:55 09/22/17 22:05 Duoneb AEROSOL 3 ml Q6H JOSE ALBERTO Administration Alteplase, Recombinant 2 mg 09/22/17 16:07 09/22/17 16:33 Cathflo Activase IV 09/22/17 16:08 2 mg O ONE Administration Sodium Chloride 500 mls @ 999.9 mls/hr 09/21/17 20:57 09/21/17 22:00 Normal Saline IV 09/21/17 21:26 Infused .Q30M ONE Infusion Levofloxacin/Dextrose 750 mg in 150 mls @ 100 mls/hr 09/21/17 21:00 09/21/17 22:45 Levaquin Premix IV Infused Q24H JOSE ALBERTO Infusion Sodium Chloride 500 mls @ 999.9 mls/hr 04/22/18 21:10 Normal Saline IV 09/21/17 21:39 .Q30M ONE Sodium Chloride 1,000 mls @ 999.9 mls/hr 09/21/17 21:55 Normal Saline IV 09/21/17 22:54 .Q1H ONE Vancomycin HCl 1,000 mg/ 250 mls @ 250 mls/hr 09/21/17 21:55 09/22/17 10:51 Sodium Chloride IV Not Given Q12H JOSE ALBERTO Vancomycin HCl 1,750 mg/ 500 mls @ 250 mls/hr 09/24/17 10:00 Sodium Chloride IV Q12H JOSE ALBERTO Methylprednisolone Sodium Succinate 125 mg 09/22/17 03:00 09/22/17 20:16 Solu-Medrol IVP 09/27/17 02:59 125 mg Q6HR JOSE ALBERTO Administration Vancomycin HCl 1 each 09/24/17 08:25 Pharmacy Consult - Vancomycin 09/24/17 08:26 O ONE - Constitutional no acute distress, well nourished, obese, cooperative - Routine HEENT Exam Head: Present: normocephalic, atraumatic Eye: Present: EOMI, PERRL - Routine Neck Exam Present: supple, full ROM, trachea midline - Routine Respiratory Exam Present: decreased breath sounds, wheezes. Absent: accessory muscle use, patient mechanically ventilated Comments: faint exp wheezes - Routine Cardiovascular Exam Present: RRR, S1, S2, no murmur - Routine Abdominal Exam Present: soft, normoactive bowel sounds - Routine Extremities Exam Present: no edema, non tender, full ROM. Absent: cyanosis, clubbing, edema - Routine Back/Spine/Pelvis Exam Back/Spine: Present: full ROM - Routine Skin Exam Present: intact, dry - Routine Neurological Exam Present: alert, oriented X3, CN II-XII intact - Routine Psychiatric Exam Present: normal affect, normal thought process, good judgment Results - Laboratory Findings Laboratory: Laboratory Results - last 48 hr 09/22/17 09/22/17 09/22/17 08:18 16:48 22:43 WBC RBC Hgb Hct MCV MCH MCHC RDW Std Deviation Plt Count MPV Immature Gran % (Auto) Neut % (Auto) Lymph % (Auto) Page % (Auto) Eos % (Auto) Baso % (Auto) Neut # (Auto) Lymph # (Auto) Page # (Auto) Eos # (Auto) Baso # (Auto) Abs Immat Gran (auto) Neutrophils % (Manual) Band Neutrophils % Lymphocytes % (Manual) Monocytes % (Manual) Neutrophils # (Manual) Band Neutrophils # Lymphocytes # (Manual) Monocytes # (Manual) RBC Morph Comment Turbidity < 20 Sodium 139 Potassium 4.0 Chloride 104 Carbon Dioxide 21 L Anion Gap 14 BUN 17.0 Creatinine 1.0 GFR Calculation 65 BUN/Creatinine Ratio 17 Glucose 241 H Glucometer Calculated Osmolality 278 Calcium 8.7 Phosphorus 2.5 Magnesium 2.2 Icterus Index < 2 Total Creatine Kinase 32 Specimen Hemolysis < 15 Adenovirus (PCR) Negative B.parapertussis DNA PCR Negative C. pneumoniae DNA (PCR) Negative Coronavirus OC43 (PCR) Negative Coronavirus HKU1 (PCR) Negative Coronavirus 229E (PCR) Negative Coronavirus NL63 (PCR) Negative Human Metapneumovir PCR Negative Influenza Type A (PCR) Negative Influenza Type B (PCR) Negative M. pneumoniae (PCR) Negative Parainfluenza 1 (PCR) Negative Parainfluenza 2 (PCR) Negative Parainfluenza 3 (PCR) Negative Parainfluenza 4 (PCR) Negative RSV (PCR) Negative Entero/Rhino (PCR) Negative 09/23/17 09/23/17 09/23/17 04:55 04:55 20:33 WBC 36.3 H* RBC 4.67 Hgb 12.9 Hct 39.1 MCV 83.7 MCH 27.6 MCHC 33.0 RDW Std Deviation 44.0 Plt Count 335 MPV 9.3 L Immature Gran % (Auto) Neut % (Auto) Lymph % (Auto) Page % (Auto) Eos % (Auto) Baso % (Auto) Neut # (Auto) Lymph # (Auto) Page # (Auto) Eos # (Auto) Baso # (Auto) Abs Immat Gran (auto) Neutrophils % (Manual) 89.0 H Band Neutrophils % 3.0 Lymphocytes % (Manual) 7.0 L Monocytes % (Manual) 1.0 Neutrophils # (Manual) 32.3 H Band Neutrophils # 1.1 Lymphocytes # (Manual) 2.5 Monocytes # (Manual) 0.4 RBC Morph Comment Normal Turbidity < 20 Sodium 142 Potassium 3.9 Chloride 106 Carbon Dioxide 26 Anion Gap 10 BUN 16.0 Creatinine 0.9 GFR Calculation 73 BUN/Creatinine Ratio 18 Glucose 143 H Glucometer 201 Calculated Osmolality 276 Calcium 8.9 Phosphorus Magnesium Icterus Index < 2 Total Creatine Kinase Specimen Hemolysis < 15 Adenovirus (PCR) B.parapertussis DNA PCR C. pneumoniae DNA (PCR) Coronavirus OC43 (PCR) Coronavirus HKU1 (PCR) Coronavirus 229E (PCR) Coronavirus NL63 (PCR) Human Metapneumovir PCR Influenza Type A (PCR) Influenza Type B (PCR) M. pneumoniae (PCR) Parainfluenza 1 (PCR) Parainfluenza 2 (PCR) Parainfluenza 3 (PCR) Parainfluenza 4 (PCR) RSV (PCR) Entero/Rhino (PCR) 09/24/17 09/24/17 09/24/17 06:27 09:24 09:24 WBC 32.6 H* RBC 4.77 Hgb 13.2 Hct 40.0 MCV 83.9 MCH 27.7 MCHC 33.0 RDW Std Deviation 46.0 Plt Count 332 MPV 9.0 L Immature Gran % (Auto) Not performed Neut % (Auto) Not performed Lymph % (Auto) Not performed Page % (Auto) Not performed Eos % (Auto) Not performed Baso % (Auto) Not performed Neut # (Auto) Not performed Lymph # (Auto) Not performed Page # (Auto) Not performed Eos # (Auto) Not performed Baso # (Auto) Not performed Abs Immat Gran (auto) Not performed Neutrophils % (Manual) 87.0 H Band Neutrophils % 3.0 Lymphocytes % (Manual) 7.0 L Monocytes % (Manual) 3.0 Neutrophils # (Manual) 28.4 H Band Neutrophils # 1.0 Lymphocytes # (Manual) 2.3 Monocytes # (Manual) 1.0 H RBC Morph Comment Normal Turbidity < 20 Sodium 143 Potassium 3.8 Chloride 105 Carbon Dioxide 27 Anion Gap 11 BUN 20.0 H Creatinine 0.9 GFR Calculation 73 BUN/Creatinine Ratio 22 Glucose 130 H Glucometer 139 Calculated Osmolality 280 Calcium 8.3 L Phosphorus Magnesium Icterus Index < 2 Total Creatine Kinase Specimen Hemolysis < 15 Adenovirus (PCR) B.parapertussis DNA PCR C. pneumoniae DNA (PCR) Coronavirus OC43 (PCR) Coronavirus HKU1 (PCR) Coronavirus 229E (PCR) Coronavirus NL63 (PCR) Human Metapneumovir PCR Influenza Type A (PCR) Influenza Type B (PCR) M. pneumoniae (PCR) Parainfluenza 1 (PCR) Parainfluenza 2 (PCR) Parainfluenza 3 (PCR) Parainfluenza 4 (PCR) RSV (PCR) Entero/Rhino (PCR) Assessment and Plan - Assessment and Plan Abnormal CT with MARIA ESTHER pleural based nodule COPD with exacerbation Immune compromised Renal cell carcinoma with mets Plan: Pt currently on RA, tolerating well. On BT's with a/a q4hr, pulmicort BID and solumedrol 80mg q6hr. Will cont to wean steroids as diane. ID consulted, afebrile , WBC 32, BC + strep, sputum now + H. influenzae, started on Rocephin today. No bronch needed at this time as sputum showing growth. Will continue to follow closely. - Time Spent With Patient Total time spent is greater than 50% in coordination of care (as documented) at patient's floor/unit and/or counseling patient: less than 15 minutes
[2017-09-24] MEDS: HYDROMORPHONE 2 MG TABLET PO PRN (10:39)
--- NOTE | 2017-09-24 10:46 | Progress Note ---
- Date 09/24/17 Subjective: F/U: Sepsis, COPD exacerbation vs. pneumonia, primary clear cell renal carcinoma. Diana is seen this morning while preparing to do a breathing treatment. She is noted to have significant, dry coughing with deep breathing. She reports that she didn't sleep well last night due to her coughing and requests a cough suppressant. She admits to blood streaked sputum production today. She remains afebrile. She also reports that she had some left facial/temporal swelling last night with pain which has since resolved and was not noted by nursing. She continues to complain of generalized myalgias and malaise and questionable flushing/redness to her chest and upper neck, possibly from the vancomycin which was discontinued on 09/22/17. Her appetite remains stable and urinary output is adequate. She admits to some chest tightness and pain with coughing. No abdominal pain, nausea, vomiting or diarrhea. Blood cultures revealed 1 positive culture showing strep viridans. Early growth noted in sputum concerning for H. flu per microbiology. She was started on Rocephin IV per Dr. Brown this morning for empiric treatment while awaiting sensitives and final culture results. Slight improvement in leukocytosis (WBC 32.6). BMP remains relatively stable. New hypocalcemia (Ca 8.3). Objective Vital signs: Temperature 97.9 F 09/24/17 07:35 Pulse Rate 74 09/24/17 07:58 Respiratory Rate 18 09/24/17 09:03 Blood Pressure 110/62 09/24/17 07:35 Pulse Oximetry 96 09/24/17 09:03 Rhythm: Sinus Tachycardia Height/Weight/BMI: Height 5 ft 6 in Weight 220 lb 0.341 oz Body Mass Index 34.1 Comments: Resting in bed, actively coughing, preparing for breathing treatment with RT present. - Constitutional Present: no acute distress, well nourished, well developed, obese, cooperative - Routine HEENT Exam Head: Present: normocephalic, atraumatic Eye: Present: PERRL. Absent: conjunctival icterus ENT: Present: mucous membranes moist - Routine Respiratory Exam Present: decreased breath sounds, wheezes Comments: Diminished breath sounds bilaterally with active dry cough on exam; faint expiratory wheezing noted. - Routine Cardiovascular Exam Present: S1, S2, tachycardia - Routine Abdominal Exam Present: soft, normoactive bowel sounds, non tender - Routine Extremities Exam Present: no edema, non tender, full ROM, pulses intact - Routine Back/Spine/Pelvis Exam Back/Spine: Present: full ROM. Absent: vertebral tenderness - Routine Musculoskeletal Exam Musculoskeletal: Present: no clubbing or cyanosis, moving extremities well - Routine Skin Exam Present: intact, dry, warm Comments: Afebrile. - Routine Neurological Exam Present: alert, oriented X3, moving all extremities, hearing grossly intact, normal speech - Routine Lymphatic Exam Lymphatic: Absent: lymphedema - Routine Psychiatric Exam Present: cooperative Results - Labs CBC & Chem 7: 09/24/17 09:24 09/24/17 09:24 Microbiology Results: Microbiology 09/22/17 22:43 Blood Cryptococcal Antigen (Serum) - Final 09/21/17 22:55 Sputum, Expectorated Gram Stain - Final 09/21/17 22:55 Sputum, Expectorated Sputum Culture - Preliminary Early growth Assessment and Plan (1) Acute exacerbation of chronic obstructive pulmonary disease (COPD) Current visit: Yes Status: Acute (2) Pneumonia Current visit: Yes Status: Ruled-out Assessment and Plan: Impression COPD with exacerbation. Cough Concern for severe sepsis - source unknown, though suspect pulmonary source - as indicated by leukocytosis, elevated lactate, tachycardia, tachypnea. Cough with wheezing - uncertain etiology (COPD exacerbation vs. pneumonia). Positive blood culture-strep viridans History of pulmonary dysplasia at -uncertain if this is contributing to symptoms. Leukocytosis Flushing Recent discontinuation of tobacco one week ago. Fatigue. Myalgias. Mild hyperglycemia-likely secondary to steroids. Acute pleuritic chest pain. 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 Immunosuppression with steroids, clear cell cancer. Generalized weakness. Plan - 09/24/17: + blood culture 09/21 - strep viridans x 1 culture; unsure if blood culture is contaminant vs. septicemia. Sputum culture revealing early growth concerning for H. influenzae. Rocephin initiated per Dr. Brown for empiric antimicrobial coverage. WBC remains elevated, though trending down slightly (WBC 32.6). Continue to monitor closely. Patient remains afebrile. Continue respiratory cares (DuoNeb, Pulmicort). Continue Solu-medrol 80mg IV Q6H for pulmonary inflammation. Continue wean steroids as tolerated per Dr. Johnson. Given concern for H. influenzae per sputum culture - will hold off on bronchoscopy at this time per Dr. Johnson. Cryptococcal and legionella antigens negative. Chest pain-possibly secondary to cough with pleurisy versus less likely pericarditis (normal sedimentation rate and C-reactive protein, normal EKG, no pericardial effusion seen on CT). Continue mucinex for mucolytic effect. Ricola and tessalon perals for cough. Recheck labs in AM to monitor blood counts, electrolytes and renal function. DVT Prophylaxis: SCD's GI Prophylaxis: Protonix Resuscitation Status: Full Code - Time spent with patient Time with patient PN: 35 minutes - Physician Narrative Physician: Lidia Obrien MD Narrative: Date: 09/24/17 Time: 1814 I have independently evaluated and examined this patient. I reviewed the chart, the patient's history, and the [employer] MATE/PA's documented findings as above. We discussed and formulated the assessment and plan as above with additions as below: Diana was seen several times today due to complaints of delirium from steroids , desire to leave AGAINST MEDICAL ADVICE, facial swelling and flushing, pain in her left ear, weakness in her legs, and intolerance of breathing treatments. Throughout the spoken with all involved physicians. Patient was calm when I saw her and recognized that steroids "messed with her head"; she is concerned that breathing treatments cause her head to pound and do something to the left side of her head. When last examined she was mildly flushed and skin was warm but she did not have a temperature; tympanic membranes were slightly dull but not bulging and there was no erythema bilaterally. Diminished breath sounds throughout bilaterally, attempt to take a deep breath triggered repetitive cough. Flat affect. Solu-Medrol discontinued and converted to oral prednisone due to side effects. Spoke with the lab to clarify if the positive blood culture was drawn peripherally or via PAC as both are reported as being drawn peripherally; after some background work the lab believes the positive culture was drawn peripherally and negative culture drawn through PAC. Port-A-Cath has not been working well and has required multiple doses of Cathflo the past month so labs can be drawn. Contrast study obtained 09/22 was consistent with a large fibrin sheath involving the distal half of the catheter but there was no evidence of catheter fracture or leak. One blood culture being redrawn through the PAC as source of original positive culture is uncertain at best. Unclear if leukocytosis due to steroids or sepsis-monitor with change in antibiotics. Procalcitonin initially undetectable-inconsistent with bacterial sepsis. >35 min in pt care, the majority of time spent in discussion with patient. Sepsis Assessment - Evaluation SIRS Criteria: pulse > 90 beats/minute, WBC > 12,000, RR > 20 Severe Sepsis: lactate > 2.0 mg/dL Hospital Course Summary Disclaimer: The visit summary below is not to be considered part of the above Progress Note. Hospital Course: 09/22/17 Impression Cough with wheezing of uncertain etiology. Has not improved significantly with steroids, doxycycline or recent Levaquin. CTA negative for PE. History of pulmonary dysplasia at -uncertain if this is contributing to symptoms COPD with possible COPD exacerbation recent discontinuation of tobacco one week ago Fatigue Myalgias Mild hyperglycemia-likely secondary to steroids Leukocytosis-secondary to steroids versus infectious process versus other Chest pain-possibly secondary to cough with pleurisy versus less likely pericarditis (normal sedimentation rate and C-reactive protein, normal EKG, no pericardial effusion seen on CT) Metastatic clear cell carcinoma with bone metastasis on chemotherapy Immunosuppression with steroids, clear cell cancer Generalized weakness Plan We'll check a viral respiratory panel CPK regarding myalgias. Magnesium and phosphorous regarding generalized weakness CBC with differential and basic metabolic profile in the morning. Monitor Accu-Cheks regarding hyperglycemia Dr. Brown was consulted and recommended discontinuation of antibiotics. Testing for TB, cryptococcus, and histoplasmosis initiated. Dr. Johnson was consulted regarding pulmonary symptoms. Continue on breathing treatments and steroids for now. Dr. Alegre was consulted regarding the patient's clear cell carcinoma 09/23/17 Overall, the patient feels about the same. Her steroids were increased to 80 mg Solu-Medrol IV every 6. She remains on breathing treatments. Antibiotics were discontinued yesterday by Dr. Brown. White count has increased, but the patient has not had fever or increase in cough. I did discuss the patient today with Dr. Johnson, and he is considering BAL. He will discuss prior with Dr. Alegre. Testing for cryptococcus and histoplasmosis is pending. We'll monitor Accu-Cheks and give sliding scale insulin if needed regarding hyperglycemia. 09/24/17: + blood culture 09/21 - strep viridans x 1 culture; unsure if blood culture is contaminant vs. septicemia. Sputum culture revealing early growth concerning for H. influenzae. Rocephin initiated per Dr. Brown for empiric antimicrobial coverage. WBC remains elevated, though trending down slightly (WBC 32.6). Continue to monitor closely. Patient remains afebrile. Continue respiratory cares (DuoNeb, Pulmicort). Solu-medrol 80mg IV Q6H converted to oral prednisone due to patient intolerance. Given concern for H. influenzae per sputum culture - will hold off on bronchoscopy at this time per Dr. Johnson. Cryptococcal and legionella antigens negative. Chest pain-possibly secondary to cough with pleurisy versus less likely pericarditis (normal sedimentation rate and C-reactive protein, normal EKG, no pericardial effusion seen on CT). Continue mucinex for mucolytic effect. Ricola and tessalon perals for cough. Tussionex syrup added daily at bedtime.
[2017-09-24] MEDS: MENTHOL COUGH DROPS (RICOLA) MM PRN (11:21)
[2017-09-24] MEDS: INSULIN ASPART 100unit/ml INJECTION SQ PRN ×3 (11:21→20:12)
[2017-09-24] MEDS ORDERED: ACETAMINOPHEN 325 MG TABLET PO PRN (14:22)
[2017-09-24] MEDS: BENZONATATE 200 MG CAPSULE PO SCH ×3 (15:52→22:17)
--- NOTE | 2017-09-24 17:29 | Progress Note ---
Oncology Subjective Cough Up all night. Emotionally teary and wants to go home. Feels bad Achy. No Fever. Exam Vital signs: Temperature 96.7 F L 09/24/17 15:56 Pulse Rate 73 09/24/17 15:56 Respiratory Rate 20 09/24/17 16:30 Blood Pressure 117/65 09/24/17 15:56 Pulse Oximetry 97 09/24/17 16:30 - Constitutional moderate distress - Routine HEENT Exam Head: Present: normocephalic ENT: Present: mucous membranes moist Throat: normal inspection - Routine Neck Exam Present: supple - Routine Respiratory Exam Present: decreased breath sounds. Absent: accessory muscle use - Routine Cardiovascular Exam Present: RRR - Routine Abdominal Exam Present: soft, non distended, non tender - Routine Extremities Exam Present: edema (1+). Absent: cyanosis, clubbing - Routine Neurological Exam Present: alert - Routine Psychiatric Exam Present: anxious, agitated Oncology Results - Labs CBC & Chem 7: 09/24/17 09:24 09/24/17 09:24 Labs: Short CBC 09/24/17 Range/Units 09:24 WBC 32.6 H* (4.5-11.0) T/MM3 Hgb 13.2 (12-16) GM/DL Hct 40.0 (36-46) % Plt Count 332 (130-400) T/MM3 BMP 09/24/17 09:24 Sodium 143 Potassium 3.8 Chloride 105 Carbon Dioxide 27 BUN 20.0 H Creatinine 0.9 Glucose 130 H Calcium 8.3 L Laboratory Tests 09/19/17 09/19/17 09/19/17 10:30 10:30 10:30 WBC Hgb RDW Std Deviation Plt Count Neutrophils % (Manual) Band Neutrophils % Neutrophils # (Manual) Total Creatine Kinase C-Reactive Protein 7.6 Plasma Lactate TSH 3.52 D Free T4 1.88 09/21/17 09/21/17 09/22/17 19:10 19:10 08:18 WBC 27.2 H* 28.4 H* Hgb 14.2 RDW Std Deviation 43.0 Plt Count 369 314 Neutrophils % (Manual) Band Neutrophils % Neutrophils # (Manual) 25.8 H Total Creatine Kinase C-Reactive Protein Plasma Lactate 2.3 H TSH Free T4 09/22/17 09/23/17 09/24/17 08:18 04:55 09:24 WBC 36.3 H* 32.6 H* Hgb 13.2 RDW Std Deviation Plt Count 335 332 Neutrophils % (Manual) 87.0 H Band Neutrophils % 3.0 Neutrophils # (Manual) 32.3 H 28.4 H Total Creatine Kinase 32 C-Reactive Protein Plasma Lactate TSH Free T4 Strep viridans in blood culture. Assessment and Plan Assessment and Plan: Assessment 1. Metastatic renal cell carcinoma with bone metastasis. Current treatment is OpDivo, last given 08/28/17. 2. Persistent shortness of air/cough. Recent COPD exacerbation. Cough could be related to COPD or Opdivo toxicity. Appears to be acute exacerbation of COPD. Current dose of steroids causing emotional upheaval. Will look at tapering. Discussed with Dr. Obrien. 3. Tobacco addiction. Attempting to quit smoking; but continues to smoke 1 cigarette a day. Wanted to go outside to smoke today but I discussed that [facility] [place] smoke free [facility]. 4. Immune mediated toxicities, including hyperthyroidism that burned out to hypothyroidism. On replacement. Follows with endocrinology, Dr. Keene. Laboratory Tests 09/11/17 09/19/17 09/19/17 12:40 10:30 10:30 TSH 3.52 D Free T4 1.88 Free T3 2.1 Currently euthyroid. 5. 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 Followed by Dr. Arnold in [place]. 6. Strep Viradans in blood culture. Question contaminate or real infection. Will follow. Plan Continue supportive care, antibiotics Taper steroids. - Time Spent With Patient Total time spent is greater than 50% in coordination of care (as documented) at patient's floor/unit and/or counseling patient: less than 15 minutes (1996)
[2017-09-24] MEDS: PredniSONE 20 MG TABLET PO SCH (17:52)
[2017-09-24] MEDS ORDERED: METOCLOPRAMIDE 10mg/2ml INJECTION IVP PRN (19:41)
[2017-09-24] MEDS ORDERED: ZOLPIDEM 5 MG TABLET PO PRN (19:41)
[2017-09-24] MEDS: LORazepam 0.5 MG TABLET PO PRN (19:44)
[2017-09-24] MEDS: HYDROCODONE/CHLORPHENIRAMINE ER ORAL LIQ 5ml PO SCH ×2 (19:45→22:17)
[2017-09-25] MEDS: ALBUTEROL/IPRATROPIUM 2.5mg-0.5mg/3ml NEB AEROSOL SCH ×6 (02:03→20:18)
[2017-09-25] MEDS: HYDROCODONE/CHLORPHENIRAMINE ER ORAL LIQ 5ml PO SCH ×3 (05:56→20:43)
[2017-09-25] MEDS: LEVOTHYROXINE 150 MCG TABLET PO SCH (05:56)
--- NOTE | 2017-09-25 09:11 | Progress Note ---
<Tri Cottrell - Last Filed: 09/25/17 12:43> Oncology Subjective Reclining in hospital bed, alone in room. Less anxious today, but continues to be concerned about weakness in her legs, persistent cough, and intermittent headaches. Denies vision changes. Denies fever, chills, night sweats. Continues with cough, shortness of air with minimal exertion. Verbalizes "got something I think it was a Shiraz last night and I slept better. " No diarrhea or constipation. No dysuria/hematuria. General: No fever, no night sweats Eyes: No redness, no pain, no diplopia ENT: No mouth sores, no trouble swallowing Cardiac: No chest pain no palpitations Pulmonary: + cough, + shortness of breath, + wheezing Abdomen: No pain, no nausea vomiting, no diarrhea or constipation : No urgency, frequency, dysuria, or hematuria Musculoskeletal: + leg weakness. Neurological: No headaches, no focal weakness Skin: No rash, no sores Psychiatric: + anxiety, but less today. Exam Vital signs: Temperature 96.7 F L 09/25/17 08:00 Pulse Rate 67 09/25/17 08:00 Respiratory Rate 20 09/25/17 08:00 Blood Pressure 110/65 09/25/17 08:00 Pulse Oximetry 97 09/25/17 08:00 - Constitutional no acute distress, obese, cooperative - Routine HEENT Exam Head: Present: normocephalic Eye: Present: EOMI ENT: Present: mucous membranes moist - Routine Neck Exam Present: supple. Absent: lymphadenopathy - Routine Respiratory Exam Present: decreased breath sounds, wheezes (mild exp. wheeze noted MARIA ESTHER posteriorly) - Routine Cardiovascular Exam Present: RRR, no murmur - Routine Abdominal Exam Present: soft, non tender. Absent: mass - Routine Extremities Exam Present: no edema - Routine Back/Spine/Pelvis Exam Back/Spine: Absent: vertebral tenderness - Routine Skin Exam Present: intact, dry. Absent: rash - Routine Neurological Exam Present: alert, oriented X3, normal speech - Routine Psychiatric Exam Present: normal affect, cooperative Oncology Results - Labs CBC & Chem 7: 09/25/17 04:32 09/25/17 04:32 Labs: Short CBC 09/24/17 09/25/17 Range/Units 09:24 04:32 WBC 32.6 H* 25.6 H* (4.5-11.0) T/MM3 Hgb 13.2 12.5 (12-16) GM/DL Hct 40.0 38.5 (36-46) % Plt Count 332 328 (130-400) T/MM3 BMP 09/24/17 09/25/17 09:24 04:32 Sodium 143 141 Potassium 3.8 3.8 Chloride 105 106 Carbon Dioxide 27 26 BUN 20.0 H 20.0 H Creatinine 0.9 0.9 Glucose 130 H 176 H Calcium 8.3 L 7.8 L Assessment and Plan Assessment and Plan: Assessment 1. Metastatic renal cell carcinoma with bone metastasis. Current treatment is OpDivo, last given 08/28/17. 2. Persistent shortness of air/cough. Recent COPD exacerbation. Cough could be related to COPD or Opdivo toxicity. Appears to be acute exacerbation of COPD. Current dose of steroids causing emotional upheaval. IV steroids d/c'd. Less anxious today. 3. Tobacco addiction. Attempting to quit smoking; but continues to smoke 1 cigarette a day. Verbalizes today on dismissal will have one half cigarette. " I know it is poison. " 4. Immune mediated toxicities, including hyperthyroidism that turned out to hypothyroidism. On replacement. Follows with endocrinology, Dr. Keene. Laboratory Tests 09/11/17 09/19/17 09/19/17 12:40 10:30 10:30 TSH 3.52 D Free T4 1.88 Free T3 2.1 Currently euthyroid. 5. 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 Followed by Dr. Arnold in [place]. 6. Strep Viradans in blood culture. Question contaminate or real infection. Will follow. Plan Active listened. Again encouraged patient to consider stopping smoking. Asked her to think of the cigarettes as double poison. Think of what is roadblock to quitting smoking; she notes " It's the 'stress I have when I don't smoke." Consider Wellbutrin to help with quitting smoking, but patient has to have desire to stop smoking. Continue supportive care, antibiotics, follow-up with ID and pulmonology. - Time Spent With Patient Total time spent is greater than 50% in coordination of care (as documented) at patient's floor/unit and/or counseling patient: 25 - 35 minutes <Rick Alegre Last Filed: 09/25/17 18:10> Exam Vital signs: Temperature 97.2 F 09/25/17 16:00 Pulse Rate 77 09/25/17 16:00 Respiratory Rate 16 09/25/17 17:18 Blood Pressure 108/58 09/25/17 16:00 Pulse Oximetry 96 09/25/17 17:18 Oncology Results - Labs CBC & Chem 7: 09/25/17 04:32 09/25/17 04:32 Labs: Short CBC 09/25/17 Range/Units 04:32 WBC 25.6 H* (4.5-11.0) T/MM3 Hgb 12.5 (12-16) GM/DL Hct 38.5 (36-46) % Plt Count 328 (130-400) T/MM3 BMP 09/25/17 04:32 Sodium 141 Potassium 3.8 Chloride 106 Carbon Dioxide 26 BUN 20.0 H Creatinine 0.9 Glucose 176 H Calcium 7.8 L Assessment and Plan Assessment and Plan: Patient examined chart reviewed. I participated in the development of the plan of care of the patient. Discussed with Dr. Obrien. Better on lower dose of steroids. Continue present therapy. - Time Spent With Patient Total time spent is greater than 50% in coordination of care (as documented) at patient's floor/unit and/or counseling patient:
[2017-09-25] MEDS: PredniSONE 20 MG TABLET PO SCH (09:59)
[2017-09-25] MEDS: NYSTATIN 500,000 units/5 ml ORAL LIQUID PO SCH (10:00)
[2017-09-25] MEDS: PANTOPRAZOLE 40 MG INJECTION IVP SCH (10:00)
[2017-09-25] MEDS: SALINE FLUSH 10ml SYRINGE IVF PRN ×3 (10:00→21:23)
[2017-09-25] MEDS: NICOTINE 14 MG PATCH TD SCH (10:01)
[2017-09-25] MEDS: BENZONATATE 200 MG CAPSULE PO SCH ×3 (10:02→20:42)
[2017-09-25] MEDS: CEFTRIAXONE 1 G in NS 100 ML IV SCH (10:02)
[2017-09-25] MEDS: NICOTINE PATCH REMOVAL TD SCH (10:02)
[2017-09-25] MEDS: GUAIFENESIN LA 600 MG TABLET PO SCH ×2 (10:03→20:36)
[2017-09-25] MEDS: BUDESONIDE INH.SOLN 0.5mg/2ml NEB AEROSOL SCH ×2 (10:11→20:18)
--- NOTE | 2017-09-25 12:30 | Pulmonology Progress Note ---
Subjective Interval history: feeling a little better today. less cough and difficulty breathing states that her legs are feeling heavy and weak today. She has extensive history of back problems and surgery late last year Exam Vital signs: Temperature 96.7 F L 09/25/17 08:00 Pulse Rate 67 09/25/17 08:00 Respiratory Rate 16 09/25/17 10:12 Blood Pressure 110/65 09/25/17 08:00 Pulse Oximetry 98 09/25/17 10:12 Inpatient Medications: Generic Name Dose Route Start Last Admin Trade Name Freq PRN Reason Stop Dose Admin Acetaminophen 650 mg 09/24/17 14:22 Tylenol PO QID PRN Discomfort Albuterol Sulfate 2.5 mg 09/21/17 21:55 Proventil Neb (0.083%) AEROSOL Q4H PRN Shortness of air/wheezing Albuterol/Ipratropium 3 ml 09/23/17 04:00 09/25/17 10:11 Duoneb AEROSOL 3 ml Q4H JOSE ALBERTO Administration Benzonatate 200 mg 09/24/17 15:00 09/25/17 10:02 Tessalon Perles PO 200 mg TID JOSE ALBERTO Administration Budesonide 0.5 mg 09/23/17 07:00 09/25/17 10:11 Pulmicort Inhalation AEROSOL 0.5 mg RTBID JOSE ALBERTO Administration Chlorphenir/Hydrocodone Polistirex 5 ml 09/25/17 09:00 09/25/17 10:03 Tussionex PO Not Given Q12HR JOSE ALBERTO Dextrose 20 ml 09/23/17 19:17 D50%W IVP PRN PRN Hypoglycemia Glucose 37.5 gm 09/23/17 19:17 Glutose 15 PO PRN PRN Hypoglycemia Guaifenesin 1,200 mg 09/23/17 21:00 09/25/17 10:03 Mucinex La PO Not Given BID JOSE ALBERTO Hydromorphone HCl 4 mg 09/23/17 14:52 09/24/17 10:39 Dilaudid PO 4 mg Q4H PRN Administration Pain Ceftriaxone Sodium 1 g/ Sodium 100 mls @ 200 mls/hr 09/24/17 09:00 09/25/17 10:32 Chloride IV Infused Q24H JOSE ALBERTO Infusion Insulin Aspart 1 - 5 unit 09/23/17 19:17 09/24/17 20:12 Novolog SQ 1 unit SS PRN Administration Hyperglycemia Protocol Levothyroxine Sodium 150 mcg 09/22/17 06:30 09/25/17 05:56 Synthroid PO 150 mcg ACB JOSE ALBERTO Administration Lidocaine HCl 5 ml 09/21/17 21:55 Magic Mouthwash (Lido/Maalox/Carafate) PO Q4H PRN Mouth pain Lorazepam 0.5 mg 09/22/17 17:07 09/24/17 19:44 Ativan PO 0.5 mg HS PRN Administration Anxiety Lorazepam 1 mg 09/24/17 20:04 Ativan Inj IVP Q6H PRN Anxiety Menthol 1 lozenge 09/24/17 09:10 09/24/17 11:21 Ricola Sf MM 1 lozenge PRN PRN Administration Cough Metoclopramide HCl 5 mg 09/24/17 19:41 Reglan IVP Q6H PRN Nicotine 14 mg 09/22/17 09:00 09/25/17 10:01 Nicoderm TD 14 mg DAILY JOSE ALBERTO Administration Nicotine 1 removal 09/22/17 09:00 09/25/17 10:02 Nicotine Patch Removal TD 1 removal DAILY JOSE ALBERTO Administration Nystatin 5 ml 09/22/17 09:00 09/25/17 10:00 Mycostatin PO 5 ml DAILY JOSE ALBERTO Administration Pantoprazole Sodium 40 mg 09/21/17 21:55 09/25/17 10:00 Protonix Iv IVP 40 mg Q12H JOSE ALBERTO Administration Prednisone 60 mg 09/24/17 16:00 09/25/17 09:59 Deltasone 20 Mg PO 60 mg DAILY JOSE ALBERTO Administration Sodium Chloride 10 - 80 ml 09/21/17 18:32 09/25/17 10:00 Iv Flush IVF 10 ml PRN PRN Administration Flushing Zolpidem Tartrate 5 mg 09/24/17 19:41 Ambien PO HS PRN Insomnia Discontinued Medications Generic Name Dose Route Start Last Admin Trade Name Freq PRN Reason Stop Dose Admin Hydrocodone Bitart/Acetaminophen 1 tab 09/21/17 21:55 09/21/17 23:01 Plain 7.5/325 PO 1 tab Q6H PRN Administration Pain Albuterol/Ipratropium 3 ml 09/21/17 21:55 09/22/17 22:05 Duoneb AEROSOL 3 ml Q6H JOSE ALBERTO Administration Alteplase, Recombinant 2 mg 04/23/18 16:07 09/22/17 16:33 Cathflo Activase IV 09/22/17 16:08 2 mg O ONE Administration Chlorphenir/Hydrocodone Polistirex 5 ml 09/24/17 21:00 09/24/17 22:17 Tussionex PO Not Given HS JOSE ALBERTO Sodium Chloride 500 mls @ 999.9 mls/hr 09/21/17 20:57 09/21/17 22:00 Normal Saline IV 09/21/17 21:26 Infused .Q30M ONE Infusion Levofloxacin/Dextrose 750 mg in 150 mls @ 100 mls/hr 09/21/17 21:00 09/21/17 22:45 Levaquin Premix IV Infused Q24H JOSE ALBERTO Infusion Sodium Chloride 500 mls @ 999.9 mls/hr 09/21/17 21:10 Normal Saline IV 09/21/17 21:39 .Q30M ONE Sodium Chloride 1,000 mls @ 999.9 mls/hr 09/21/17 21:55 Normal Saline IV 09/21/17 22:54 .Q1H ONE Vancomycin HCl 1,000 mg/ 250 mls @ 250 mls/hr 09/21/17 21:55 09/22/17 10:51 Sodium Chloride IV Not Given Q12H JOSE ALBERTO Vancomycin HCl 1,750 mg/ 500 mls @ 250 mls/hr 09/24/17 10:00 Sodium Chloride IV Q12H JOSE ALBERTO Methylprednisolone Sodium Succinate 125 mg 09/22/17 03:00 09/22/17 20:16 Solu-Medrol IVP 09/27/17 02:59 125 mg Q6HR JOSE ALBERTO Administration Methylprednisolone Sodium Succinate 80 mg 09/23/17 03:00 09/24/17 15:50 Solu-Medrol IVP 09/28/17 02:59 80 mg Q6HR JOSE ALBERTO Administration Vancomycin HCl 1 each 09/24/17 08:25 Pharmacy Consult - Vancomycin 09/24/17 08:26 O ONE - Constitutional no acute distress - Routine Neck Exam Present: supple, full ROM - Routine Respiratory Exam Present: decreased breath sounds, CTA bilaterally - Routine Cardiovascular Exam Present: RRR - Routine Extremities Exam Present: cyanosis, no edema. Absent: clubbing - Routine Skin Exam Present: intact. Absent: rash - Routine Neurological Exam Present: alert, oriented X3. Absent: motor deficit normal motor strength in legs by exam Results - Laboratory Findings Laboratory: Laboratory Results - last 48 hr 09/23/17 09/24/17 09/24/17 20:33 06:27 09:24 WBC 32.6 H* RBC 4.77 Hgb 13.2 Hct 40.0 MCV 83.9 MCH 27.7 MCHC 33.0 RDW Std Deviation 46.0 Plt Count 332 MPV 9.0 L Immature Gran % (Auto) Not performed Neut % (Auto) Not performed Lymph % (Auto) Not performed [place] % (Auto) Not performed Eos % (Auto) Not performed Baso % (Auto) Not performed Neut # (Auto) Not performed Lymph # (Auto) Not performed [place] # (Auto) Not performed Eos # (Auto) Not performed Baso # (Auto) Not performed Abs Immat Gran (auto) Not performed Neutrophils % (Manual) 87.0 H Band Neutrophils % 3.0 Lymphocytes % (Manual) 7.0 L Monocytes % (Manual) 3.0 Neutrophils # (Manual) 28.4 H Band Neutrophils # 1.0 Lymphocytes # (Manual) 2.3 Monocytes # (Manual) 1.0 H RBC Morph Comment Normal Turbidity Sodium Potassium Chloride Carbon Dioxide Anion Gap BUN Creatinine GFR Calculation BUN/Creatinine Ratio Glucose Glucometer 201 139 Calculated Osmolality Calcium Icterus Index Specimen Hemolysis 09/24/17 09/24/17 09/24/17 09:24 10:45 15:50 WBC RBC Hgb Hct MCV MCH MCHC RDW Std Deviation Plt Count MPV Immature Gran % (Auto) Neut % (Auto) Lymph % (Auto) [place] % (Auto) Eos % (Auto) Baso % (Auto) Neut # (Auto) Lymph # (Auto) [place] # (Auto) Eos # (Auto) Baso # (Auto) Abs Immat Gran (auto) Neutrophils % (Manual) Band Neutrophils % Lymphocytes % (Manual) Monocytes % (Manual) Neutrophils # (Manual) Band Neutrophils # Lymphocytes # (Manual) Monocytes # (Manual) RBC Morph Comment Turbidity < 20 Sodium 143 Potassium 3.8 Chloride 105 Carbon Dioxide 27 Anion Gap 11 BUN 20.0 H Creatinine 0.9 GFR Calculation 73 BUN/Creatinine Ratio 22 Glucose 130 H Glucometer 185 170 Calculated Osmolality 280 Calcium 8.3 L Icterus Index < 2 Specimen Hemolysis < 15 09/24/17 09/25/17 09/25/17 19:50 04:32 04:32 WBC 25.6 H* RBC 4.56 Hgb 12.5 Hct 38.5 MCV 84.4 MCH 27.4 MCHC 32.5 RDW Std Deviation 46.3 Plt Count 328 MPV 9.1 L Immature Gran % (Auto) Not performed Neut % (Auto) Not performed Lymph % (Auto) Not performed [place] % (Auto) Not performed Eos % (Auto) Not performed Baso % (Auto) Not performed Neut # (Auto) Not performed Lymph # (Auto) Not performed [place] # (Auto) Not performed Eos # (Auto) Not performed Baso # (Auto) Not performed Abs Immat Gran (auto) Not performed Neutrophils % (Manual) 81.0 H Band Neutrophils % 2.0 Lymphocytes % (Manual) 10.0 L Monocytes % (Manual) 7.0 Neutrophils # (Manual) 20.7 H Band Neutrophils # 0.5 Lymphocytes # (Manual) 2.6 Monocytes # (Manual) 1.8 H RBC Morph Comment Normal Turbidity < 20 Sodium 141 Potassium 3.8 Chloride 106 Carbon Dioxide 26 Anion Gap 9 BUN 20.0 H Creatinine 0.9 GFR Calculation 73 BUN/Creatinine Ratio 22 Glucose 176 H Glucometer 155 Calculated Osmolality 278 Calcium 7.8 L Icterus Index < 2 Specimen Hemolysis < 15 09/25/17 05:59 WBC RBC Hgb Hct MCV MCH MCHC RDW Std Deviation Plt Count MPV Immature Gran % (Auto) Neut % (Auto) Lymph % (Auto) [place] % (Auto) Eos % (Auto) Baso % (Auto) Neut # (Auto) Lymph # (Auto) [place] # (Auto) Eos # (Auto) Baso # (Auto) Abs Immat Gran (auto) Neutrophils % (Manual) Band Neutrophils % Lymphocytes % (Manual) Monocytes % (Manual) Neutrophils # (Manual) Band Neutrophils # Lymphocytes # (Manual) Monocytes # (Manual) RBC Morph Comment Turbidity Sodium Potassium Chloride Carbon Dioxide Anion Gap BUN Creatinine GFR Calculation BUN/Creatinine Ratio Glucose Glucometer 51 Calculated Osmolality Calcium Icterus Index Specimen Hemolysis Assessment and Plan (1) Acute exacerbation of chronic obstructive pulmonary disease (COPD) Status: Acute Assessment and plan: Severe airflow obstruction, Gold 3 (Stage D) with significant wheeze and bronchospasm due to URTI. Overall improved since admission Baseline FEV1 47% predicted, highly symptomatic Recently treated with prednisone, Levaquin 500 x 5 days Continue neb albuterol/iprat qid she will start Trelegy once daily upon dismissal Currently on Prednisone 60/day Neb budesonide, albuterol, ipratropium Plan to wean prednisone today Current Visit: Yes - Assessment and Plan Abnormal CT with MARIA ESTHER pleural based nodule COPD with exacerbation Immune compromised Renal cell carcinoma with mets - Time Spent With Patient Total time spent is greater than 50% in coordination of care (as documented) at patient's floor/unit and/or counseling patient: less than 15 minutes
[2017-09-25] MEDS: MENTHOL COUGH DROPS (RICOLA) MM PRN (13:54)
--- NOTE | 2017-09-25 19:52 | Progress Note ---
- Date 09/25/17 Subjective: Diana reports sleeping well last night and improvement in cough with reduction in dyspnea compared to yesterday. She continues to cough intermittently but cough control has improved with Tessalon Perles and Tussionex both of which is tolerating. She is still wheezing occasionally but again improved from yesterday. Her primary concern today is of ongoing left sided facial symptoms which she reports developed soon as she starts eating and food is "absorbed from her tongue" which seems to trigger tightness in the left side of her face. She has not experienced flushing today however in association with the left-sided symptoms. She describes weakness in her legs, primarily the thighs which is intermittent. She did well with her physical therapy assessment earlier today and ambulated 365 feet. She denies nausea and reports her bowels are working well. She denied generalized pain. Patient acknowledges anxiety and increased stress; she feels like anxiety is better today than it was yesterday. Objective Vital signs: Temperature 97.2 F 09/25/17 16:00 Pulse Rate 77 09/25/17 16:00 Respiratory Rate 16 09/25/17 17:18 Blood Pressure 108/58 09/25/17 16:00 Pulse Oximetry 96 -RA 09/25/17 17:18 I/O 2200/1750 NAD, alert, less pressured speech than yesterday but remains moderately anxious Conjunctiva clear, sclera anicteric, oropharynx clear, no palpable abnormality over mandibles bilaterally Respirations nonlabored, decreased airflow throughout, breath sounds clear anteriorly/posteriorly Regular rhythm, S1-S2 Abdomen soft, nontender, bowel sounds present Extremities without edema Moving all extremities well, proximal power lower extremities grossly within normal limits Skin without rash or flushing, mildly diaphoretic on back but not anterior surfaces Height/Weight/BMI: Height 1.68 m Weight 98.5 kg Body Mass Index 34.1 Results - Labs CBC & Chem 7: 09/25/17 04:32 09/25/17 04:32 Labs: S81 B2 L10 M7 Microbiology Results: Microbiology 09/24/17 16:11 Port/Picc Blood Culture - Preliminary No Growth After 1 Day 09/21/17 22:55 Sputum, Expectorated Gram Stain - Final 09/21/17 22:55 Sputum, Expectorated Sputum Culture - Final Normal Respiratory Donna including Yeast Present 09/22/17 22:43 Blood Cryptococcal Antigen (Serum) - Final Blood cultures drawn 09/21-06/03 positive strep viridans Assessment and Plan (1) Acute exacerbation of chronic obstructive pulmonary disease (COPD) Current visit: Yes Status: Acute (2) Pneumonia Current visit: Yes Status: Ruled-out Assessment and Plan: Impression COPD with exacerbation. Cough Concern for severe sepsis - source unknown, though suspect pulmonary source - as indicated by leukocytosis, elevated lactate, tachycardia, tachypnea. Positive blood culture-strep viridans History of pulmonary dysplasia at -uncertain if this is contributing to symptoms. Leukocytosis Flushing Recent discontinuation of tobacco one week ago. Fatigue. Myalgias. Mild hyperglycemia-likely secondary to steroids. Acute pleuritic chest pain. 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 Immunosuppression with steroids, clear cell cancer. Generalized weakness. Anxiety PAC, partially occluded Plan - 09/24/17: + blood culture 09/21 - strep viridans x 1 culture; unsure if blood culture is contaminant vs. septicemia. Rocephin initiated per Dr. Brown for empiric antimicrobial coverage. Repeat blood culture drawn through PAC yesterday-negative overnight. WBC remains elevated, though trending down slowly. Continue to monitor, patient afebrile. Continue respiratory care (DuoNeb, Pulmicort). Converted to prednisone yesterday due to side effects of high-dose steroids; tapered further by Dr. Johnson earlier today. Cough control improved with above care in conjunction with Tessalon Perles/ Tussionex syrup-continue same. Sputum culture normal donna-preliminary report suggested possible Haemophilus but not cultured out per final report. Cryptococcal, legionella, and histo antigens negative. Anxiety improved with decreased steroids however has not resolved and patient had variable symptoms overnight that raise question of panic attacks. Discussed this possibility with the patient and with oncology earlier today; patient agrees that she has significant stress and anxiety and was open to trial of medication to help manage anxiety and help with smoking cessation. Initiate Wellbutrin ER 150 mg daily in a.m. Patient refusing fingersticks for Accu-Cheks, given discontinuation of Solu- Medrol --> discontinue Accu-Cheks. Outpatient hormone levels reviewed with patient at her request. DVT Prophylaxis: SCD's GI Prophylaxis: Rantidine Resuscitation Status: Full Code - Physician Narrative Narrative: Date: 09/25/17 Time: 1946 Hospital Course Summary Disclaimer: The visit summary below is not to be considered part of the above Progress Note. Hospital Course: 09/22/17 Impression Cough with wheezing of uncertain etiology. Has not improved significantly with steroids, doxycycline or recent Levaquin. CTA negative for PE. History of pulmonary dysplasia at -uncertain if this is contributing to symptoms COPD with possible COPD exacerbation recent discontinuation of tobacco one week ago Fatigue Myalgias Mild hyperglycemia-likely secondary to steroids Leukocytosis-secondary to steroids versus infectious process versus other Chest pain-possibly secondary to cough with pleurisy versus less likely pericarditis (normal sedimentation rate and C-reactive protein, normal EKG, no pericardial effusion seen on CT) Metastatic clear cell carcinoma with bone metastasis on chemotherapy Immunosuppression with steroids, clear cell cancer Generalized weakness Plan We'll check a viral respiratory panel CPK regarding myalgias. Magnesium and phosphorous regarding generalized weakness CBC with differential and basic metabolic profile in the morning. Monitor Accu-Cheks regarding hyperglycemia Dr. Brown was consulted and recommended discontinuation of antibiotics. Testing for TB, cryptococcus, and histoplasmosis initiated. Dr. Johnson was consulted regarding pulmonary symptoms. Continue on breathing treatments and steroids for now. Dr. Alegre was consulted regarding the patient's clear cell carcinoma 09/23/17 Overall, the patient feels about the same. Her steroids were increased to 80 mg Solu-Medrol IV every 6. She remains on breathing treatments. Antibiotics were discontinued yesterday by Dr. Brown. White count has increased, but the patient has not had fever or increase in cough. I did discuss the patient today with Dr. Johnson, and he is considering BAL. He will discuss prior with Dr. Alegre. Testing for cryptococcus and histoplasmosis is pending. We'll monitor Accu-Cheks and give sliding scale insulin if needed regarding hyperglycemia. 09/24/17 + blood culture 09/21 - strep viridans x 1 culture; unsure if blood culture is contaminant vs. septicemia. Sputum culture revealing early growth concerning for H. influenzae. Rocephin initiated per Dr. Brown for empiric antimicrobial coverage. WBC remains elevated, though trending down slightly (WBC 32.6). Continue to monitor closely. Patient remains afebrile. Continue respiratory cares (DuoNeb, Pulmicort). Solu-medrol 80mg IV Q6H converted to oral prednisone due to patient intolerance. Given concern for H. influenzae per sputum culture - will hold off on bronchoscopy at this time per Dr. Johnson. Cryptococcal and legionella antigens negative. Chest pain-possibly secondary to cough with pleurisy versus less likely pericarditis (normal sedimentation rate and C-reactive protein, normal EKG, no pericardial effusion seen on CT). Continue mucinex for mucolytic effect. Ricola and tessalon perals for cough. Tussionex syrup added daily at bedtime. 09/25/17 Repeat blood culture drawn through PAC yesterday-negative overnight. Remains on ceftriaxone for prior positive blood culture-strep viridans. WBC remains elevated, though trending down slowly. Continue to monitor, patient afebrile. Continue respiratory care (DuoNeb, Pulmicort). Converted to prednisone yesterday due to side effects of high-dose steroids; tapered further by Dr. Johnson earlier today. Cough control improved with above care in conjunction with Tessalon Perles/ Tussionex syrup-continue same. Sputum culture normal donna-preliminary report suggested possible Haemophilus but not cultured out per final report. Cryptococcal, legionella, and histo antigens negative. Anxiety improved with decreased steroids however has not resolved and patient had variable symptoms overnight that raise question of panic attacks. Discussed this possibility with the patient and with oncology earlier today; patient agrees that she has significant stress and anxiety and was open to trial of medication to help manage anxiety and help with smoking cessation. Initiate Wellbutrin ER 150 mg daily in a.m.
[2017-09-25] MEDS: RANITIDINE 150 MG TABLET PO SCH (21:20)
[2017-09-25] MEDS: LORazepam 0.5 MG TABLET PO PRN (22:00)
[2017-09-26] MEDS: ALBUTEROL/IPRATROPIUM 2.5mg-0.5mg/3ml NEB AEROSOL SCH ×3 (00:34→13:15)
[2017-09-26] MEDS: SALINE FLUSH 10ml SYRINGE IVF PRN ×2 (04:17→14:43)
[2017-09-26] MEDS: LEVOTHYROXINE 150 MCG TABLET PO SCH (05:55)
[2017-09-26] MEDS: MENTHOL COUGH DROPS (RICOLA) MM PRN (05:55)
[2017-09-26] MEDS ORDERED: PredniSONE 10 MG TABLET PO SCH (08:00)
--- NOTE | 2017-09-26 08:27 | ID Progress Note ---
Subjective Date: 09/26/17 Subjective: She wants to go home. Also reports that she had left-sided facial symptoms last night. Reports that her eyelids feel hot when she urinates. Legs still feel heavy. She says that she "doesn't feel much better" than when she came in but she wants to go home. Still coughing some. Asks about her low calcium. Exam Vital Signs: Temperature 96.7 F L 09/26/17 01:00 Pulse Rate 65 09/26/17 01:00 Respiratory Rate 18 09/26/17 04:29 Blood Pressure 121/65 09/26/17 01:00 Pulse Oximetry 96 09/26/17 04:29 Height/Weight/BMI: Height 1.68 m Weight 98.5 kg Body Mass Index 34.1 - Constitutional Present: no acute distress, well nourished, well developed - Routine HEENT Exam Head: Present: normocephalic, atraumatic Eye: Present: EOMI, PERRL ENT: Present: mucous membranes moist, oropharynx clear, dentition normal - Routine Neck Exam Present: supple - Routine Respiratory Exam Present: CTA bilaterally. Absent: wheezes Comments: on room air - Routine Cardiovascular Exam Present: RRR - Routine Abdominal Exam Present: soft, normoactive bowel sounds, non distended, non tender - Routine Exam Comments: no abraham, no bladder distention - Routine Extremities Exam Absent: cyanosis, clubbing, edema - Routine Skin Exam Present: intact. Absent: rash - Routine Neurological Exam Present: alert, oriented X3, CN II-XII intact, normal speech. Absent: motor deficit - Routine Psychiatric Exam Present: normal affect Results - Labs CBC & Chem 7: 09/26/17 04:19 09/26/17 04:19 Microbiology Results: Microbiology 09/24/17 16:11 Port/Picc Blood Culture - Preliminary No Growth After 1 Day 09/21/17 22:55 Sputum, Expectorated Gram Stain - Final 09/21/17 22:55 Sputum, Expectorated Sputum Culture - Final Normal Respiratory Donna including Yeast Present 09/22/17 22:43 Blood Cryptococcal Antigen (Serum) - Final 09/21/17: one of two blood cultures positive for viridans Strep (one bottle only) Impression: Leukocytosis Elevated lactate Cough, wheezing, ? secondary to COPD exacerbation vs pneumonia. Sputum culture with normal donna. 2 pleural-based lung nodules on CT of the chest. Urine Histo Ag negative, Crypto Ag negative. 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 Alegre, with recent chemotherapy Status post MARINE REPORTER shunt placement One of two blood cultures 09/21 with Strep species, suspect contaminant Recommendation: Recommend changing her antibiotic to cefdinir 300mg po q12 for 3 days to complete treatment for bronchitis. OK to discharge home from ID standpoint. F/ U with ID prn.
[2017-09-26] MEDS: BUDESONIDE INH.SOLN 0.5mg/2ml NEB AEROSOL SCH (08:30)
[2017-09-26 08:58] VITALS: BP 124/62; PULSE 81; TEMP 96.5
[2017-09-26] MEDS ORDERED: CEFDINIR 300 MG CAPSULE PO SCH (09:00)
[2017-09-26] MEDS ORDERED: BuPROPion XL 150mg (24HR) TABLET PO SCH (09:00)
--- NOTE | 2017-09-26 09:04 | Progress Note ---
<CodeyRick D - Last Filed: 09/26/17 21:07> Exam Vital signs: Temperature 96.5 F L 09/26/17 08:57 Pulse Rate 81 09/26/17 08:57 Respiratory Rate 24 09/26/17 13:15 Blood Pressure 124/62 09/26/17 08:57 Pulse Oximetry 95 09/26/17 13:15 Oncology Results - Labs CBC & Chem 7: 09/26/17 04:19 09/26/17 04:19 Labs: Short CBC 09/26/17 Range/Units 04:19 WBC 19.6 H (4.5-11.0) T/MM3 Hgb 12.5 (12-16) GM/DL Hct 39.2 (36-46) % Plt Count 273 (130-400) T/MM3 BMP 09/26/17 04:19 Sodium 141 Potassium 3.7 Chloride 105 Carbon Dioxide 28 BUN 20.0 H Creatinine 0.9 Glucose 106 Calcium 7.7 L Cardiac Enzymes 09/25/17 Range/Units 21:22 Troponin I < 0.012 (0-0.12) ng/ml Assessment and Plan Assessment and Plan: Patient examined chart reviewed. I participated in the development of the plan of care of the patient. Discussed with Kevin. . Better on lower dose of steroids. Suspect blood culture is contaminate. Will follow up next week. Home per Dr. Obrien - Time Spent With Patient Total time spent is greater than 50% in coordination of care (as documented) at patient's floor/unit and/or counseling patient: <Tri Cottrell L - Last Filed: 10/09/17 10:17> Oncology Subjective Alone in room. Continues to have intermittent head pain, numbness at times. Denies pain currently. Some decreased appetite. Continues to be anxious about chronic medical problems. General: No fever, no night sweats Eyes: No redness, no pain, no diplopia ENT: No mouth sores, no trouble swallowing Cardiac: + chest pain earlier today. Denies pain now Pulmonary: + cough, no wheezing Abdomen: No pain, no nausea vomiting, no diarrhea or constipation : No urgency, frequency, dysuria, or hematuria Musculoskeletal: No arthritis, no myalgias Neurological: No headaches, no focal weakness Skin: No rash, no sores Psychiatric: + anxiety Exam Vital signs: Temperature 96.5 F L 09/26/17 08:57 Pulse Rate 81 09/26/17 08:57 Respiratory Rate 22 09/26/17 08:57 Blood Pressure 124/62 09/26/17 08:57 Pulse Oximetry 96 09/26/17 08:57 - Constitutional no acute distress - Routine HEENT Exam Head: Present: normocephalic ENT: Present: mucous membranes moist - Routine Neck Exam Present: supple. Absent: lymphadenopathy - Routine Respiratory Exam Present: decreased breath sounds. Absent: wheezes, crackles - Routine Cardiovascular Exam Present: RRR, no murmur - Routine Abdominal Exam Present: soft, normoactive bowel sounds. Absent: mass - Routine Extremities Exam Present: no edema, full ROM - Routine Skin Exam Present: intact, dry. Absent: rash - Routine Neurological Exam Present: alert, oriented X3, moving all extremities - Routine Psychiatric Exam Present: normal affect Oncology Results - Labs CBC & Chem 7: 09/26/17 04:19 09/26/17 04:19 Labs: Short CBC 09/26/17 Range/Units 04:19 WBC 19.6 H (4.5-11.0) T/MM3 Hgb 12.5 (12-16) GM/DL Hct 39.2 (36-46) % Plt Count 273 (130-400) T/MM3 BMP 09/26/17 04:19 Sodium 141 Potassium 3.7 Chloride 105 Carbon Dioxide 28 BUN 20.0 H Creatinine 0.9 Glucose 106 Calcium 7.7 L Cardiac Enzymes 09/25/17 Range/Units 21:22 Troponin I < 0.012 (0-0.12) ng/ml Assessment and Plan Assessment and Plan: Assessment 1. Metastatic renal cell carcinoma with bone metastasis. Current treatment is OpDivo, last given 08/28/17. 2. Persistent shortness of air/cough. Recent COPD exacerbation. Cough could be related to COPD or Opdivo toxicity. Appears to be acute exacerbation of COPD. Current dose of steroids causing emotional upheaval. IV steroids d/c'd. Less anxious today. 3. Tobacco addiction. Attempting to quit smoking; but continues to smoke 1 cigarette a day. Verbalizes today on dismissal will have one half cigarette. " I know it is poison. " 4. Immune mediated toxicities, including hyperthyroidism that turned out to hypothyroidism. On replacement. Follows with endocrinology, Dr. Keene. Laboratory Tests 09/11/17 09/19/17 09/19/17 12:40 10:30 10:30 TSH 3.52 D Free T4 1.88 Free T3 2.1 Currently euthyroid. 5. 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 Followed by Dr. Arnold in [place]. 6. Strep Viradans in blood culture. Question contaminate or real infection. Will follow. Plan Planning discharge to home later today. Will continue to follow as outpatient. Patient examined chart reviewed. I participated in the development of the plan of care of the patient. Discussed with Dr. Obrien. Better on lower dose of steroids. Continue present therapy. - Time Spent With Patient Total time spent is greater than 50% in coordination of care (as documented) at patient's floor/unit and/or counseling patient: less than 15 minutes
[2017-09-26] MEDS: NICOTINE 14 MG PATCH TD SCH (09:23)
[2017-09-26] MEDS: NYSTATIN 500,000 units/5 ml ORAL LIQUID PO SCH (09:24)
[2017-09-26] MEDS: HYDROCODONE/CHLORPHENIRAMINE ER ORAL LIQ 5ml PO SCH (09:24)
[2017-09-26] MEDS: NICOTINE PATCH REMOVAL TD SCH (09:24)
[2017-09-26] MEDS: RANITIDINE 150 MG TABLET PO SCH (09:25)
[2017-09-26] MEDS: BENZONATATE 200 MG CAPSULE PO SCH (09:25)
[2017-09-26] MEDS: GUAIFENESIN LA 600 MG TABLET PO SCH (09:26)
--- NOTE | 2017-09-26 10:05 | Pulmonology Progress Note ---
Subjective Interval history: Pt sitting at EOB, states her breathing is doing better. Still with some cough and sputum noted. Still a little fatigued but getting better. Exam Vital signs: Temperature 96.5 F L 09/26/17 08:57 Pulse Rate 81 09/26/17 08:57 Respiratory Rate 22 09/26/17 08:57 Blood Pressure 124/62 09/26/17 08:57 Pulse Oximetry 96 09/26/17 08:57 Inpatient Medications: Generic Name Dose Route Start Last Admin Trade Name Freq PRN Reason Stop Dose Admin Acetaminophen 650 mg 09/24/17 14:22 Tylenol PO QID PRN Discomfort Albuterol Sulfate 2.5 mg 09/21/17 21:55 09/26/17 04:32 Proventil Neb (0.083%) AEROSOL 2.5 mg Q4H PRN Administration Shortness of air/wheezing Albuterol/Ipratropium 3 ml 09/23/17 04:00 09/26/17 08:30 Duoneb AEROSOL 3 ml Q4H JOSE ALBERTO Administration Benzonatate 200 mg 09/24/17 15:00 09/26/17 09:25 Tessalon Perles PO 200 mg TID JOSE ALBERTO Administration Budesonide 0.5 mg 09/23/17 07:00 09/26/17 08:30 Pulmicort Inhalation AEROSOL 0.5 mg RTBID JOSE ALBERTO Administration Bupropion HCl 150 mg 09/26/17 09:00 09/26/17 09:25 Wellbutrin Xl PO 150 mg DAILY JOSE ALBERTO Administration Cefdinir 300 mg 09/26/17 09:00 09/26/17 09:24 Omnicef PO 300 mg Q12HR JOSE ALBERTO Administration Chlorphenir/Hydrocodone Polistirex 5 ml 09/25/17 09:00 09/26/17 09:24 Tussionex PO 5 ml Q12HR JOSE ALBERTO Administration Dextrose 20 ml 09/23/17 19:17 D50%W IVP PRN PRN Hypoglycemia Glucose 37.5 gm 09/23/17 19:17 Glutose 15 PO PRN PRN Hypoglycemia Guaifenesin 1,200 mg 09/23/17 21:00 09/26/17 09:26 Mucinex La PO Not Given BID JOSE ALBERTO Hydromorphone HCl 4 mg 09/23/17 14:52 09/24/17 10:39 Dilaudid PO 4 mg Q4H PRN Administration Pain Insulin Aspart 1 - 5 unit 09/23/17 19:17 09/24/17 20:12 Novolog SQ 1 unit SS PRN Administration Hyperglycemia Protocol Levothyroxine Sodium 150 mcg 09/22/17 06:30 09/26/17 05:55 Synthroid PO 150 mcg ACB JOSE ALBERTO Administration Lidocaine HCl 5 ml 09/21/17 21:55 Magic Mouthwash (Lido/Maalox/Carafate) PO Q4H PRN Mouth pain Lorazepam 0.5 mg 09/22/17 17:07 09/25/17 22:00 Ativan PO 0.5 mg HS PRN Administration Anxiety Lorazepam 1 mg 09/24/17 20:04 Ativan Inj IVP Q6H PRN Anxiety Menthol 1 lozenge 09/24/17 09:10 09/26/17 05:55 Ricola Sf MM 1 lozenge PRN PRN Administration Cough Metoclopramide HCl 5 mg 09/24/17 19:41 Reglan IVP Q6H PRN Nicotine 14 mg 09/22/17 09:00 09/26/17 09:23 Nicoderm TD 14 mg DAILY JOSE ALBERTO Administration Nicotine 1 removal 09/22/17 09:00 09/26/17 09:24 Nicotine Patch Removal TD 1 removal DAILY JOSE ALBERTO Administration Nystatin 5 ml 09/22/17 09:00 09/26/17 09:24 Mycostatin PO 5 ml DAILY JOSE ALBERTO Administration Prednisone 30 mg 09/26/17 08:00 09/26/17 09:25 Deltasone 10 Mg PO 30 mg WB JOSE ALBERTO Administration Ranitidine HCl 150 mg 09/25/17 21:00 09/26/17 09:25 Zantac PO 150 mg BID JOSE ALBERTO Administration Sodium Chloride 10 - 80 ml 09/21/17 18:32 09/26/17 04:17 Iv Flush IVF 10 ml PRN PRN Administration Flushing Zolpidem Tartrate 5 mg 09/24/17 19:41 Ambien PO HS PRN Insomnia Discontinued Medications Generic Name Dose Route Start Last Admin Trade Name Freq PRN Reason Stop Dose Admin Hydrocodone Bitart/Acetaminophen 1 tab 09/21/17 21:55 09/21/17 23:01 [place] 7.5/325 PO 1 tab Q6H PRN Administration Pain Albuterol/Ipratropium 3 ml 09/21/17 21:55 09/22/17 22:05 Duoneb AEROSOL 3 ml Q6H JOSE ALBERTO Administration Alteplase, Recombinant 2 mg 09/22/17 16:07 09/22/17 16:33 Cathflo Activase IV 09/22/17 16:08 2 mg O ONE Administration Chlorphenir/Hydrocodone Polistirex 5 ml 09/24/17 21:00 09/24/17 22:17 Tussionex PO Not Given HS JOSE ALBERTO Sodium Chloride 500 mls @ 999.9 mls/hr 09/21/17 20:57 09/21/17 22:00 Normal Saline IV 09/21/17 21:26 Infused .Q30M ONE Infusion Levofloxacin/Dextrose 750 mg in 150 mls @ 100 mls/hr 09/21/17 21:00 09/21/17 22:45 Levaquin Premix IV Infused Q24H JOSE ALBERTO Infusion Sodium Chloride 500 mls @ 999.9 mls/hr 09/21/17 21:10 Normal Saline IV 09/21/17 21:39 .Q30M ONE Sodium Chloride 1,000 mls @ 999.9 mls/hr 09/21/17 21:55 Normal Saline IV 09/21/17 22:54 .Q1H ONE Vancomycin HCl 1,000 mg/ 250 mls @ 250 mls/hr 09/21/17 21:55 09/22/17 10:51 Sodium Chloride IV Not Given Q12H JOSE ALBERTO Vancomycin HCl 1,750 mg/ 500 mls @ 250 mls/hr 09/24/17 10:00 Sodium Chloride IV Q12H JOSE ALBERTO Ceftriaxone Sodium 1 g/ Sodium 100 mls @ 200 mls/hr 09/24/17 09:00 09/25/17 10:32 Chloride IV Infused Q24H JOSE ALBERTO Infusion Methylprednisolone Sodium Succinate 125 mg 09/22/17 03:00 09/22/17 20:16 Solu-Medrol IVP 09/27/17 02:59 125 mg Q6HR JOSE ALBERTO Administration Methylprednisolone Sodium Succinate 80 mg 09/23/17 03:00 09/24/17 15:50 Solu-Medrol IVP 09/28/17 02:59 80 mg Q6HR JOSE ALBERTO Administration Pantoprazole Sodium 40 mg 09/21/17 21:55 09/25/17 10:00 Protonix Iv IVP 40 mg Q12H JOSE ALBERTO Administration Prednisone 60 mg 09/24/17 16:00 09/25/17 09:59 Deltasone 20 Mg PO 60 mg DAILY JOSE ALBERTO Administration Vancomycin HCl 1 each 09/24/17 08:25 09/25/17 22:12 Pharmacy Consult - Vancomycin 09/24/17 08:26 Not Given O ONE - Constitutional no acute distress, obese, cooperative - Routine HEENT Exam Head: Present: normocephalic, atraumatic Eye: Present: EOMI, PERRL ENT: Present: mucous membranes moist - Routine Neck Exam Present: supple, full ROM, trachea midline - Routine Respiratory Exam Present: CTA bilaterally. Absent: patient mechanically ventilated - Routine Cardiovascular Exam Present: RRR, S1, S2, no murmur - Routine Abdominal Exam Present: soft, normoactive bowel sounds - Routine Extremities Exam Present: no edema, non tender, full ROM. Absent: cyanosis, clubbing, edema - Routine Back/Spine/Pelvis Exam Back/Spine: Present: full ROM - Routine Skin Exam Present: intact, dry - Routine Neurological Exam Present: alert, oriented X3, CN II-XII intact - Routine Psychiatric Exam Present: normal affect, normal thought process Results - Laboratory Findings Laboratory: Laboratory Results - last 48 hr 09/22/17 09/24/17 09/24/17 14:27 10:45 15:50 WBC RBC Hgb Hct MCV MCH MCHC RDW Std Deviation Plt Count MPV Immature Gran % (Auto) Neut % (Auto) Lymph % (Auto) Peach % (Auto) Eos % (Auto) Baso % (Auto) Neut # (Auto) Lymph # (Auto) Peach # (Auto) Eos # (Auto) Baso # (Auto) Abs Immat Gran (auto) Neutrophils % (Manual) Band Neutrophils % Lymphocytes % (Manual) Monocytes % (Manual) Neutrophils # (Manual) Band Neutrophils # Lymphocytes # (Manual) Monocytes # (Manual) RBC Morph Comment Turbidity Sodium Potassium Chloride Carbon Dioxide Anion Gap BUN Creatinine GFR Calculation BUN/Creatinine Ratio Glucose Glucometer 185 170 Calculated Osmolality Calcium Icterus Index Troponin I PTH Intact Specimen Hemolysis Urine Histoplasma Ag Negative U Histoplasma Ag Detec 0.00 09/24/17 09/25/17 09/25/17 19:50 04:32 04:32 WBC 25.6 H* RBC 4.56 Hgb 12.5 Hct 38.5 MCV 84.4 MCH 27.4 MCHC 32.5 RDW Std Deviation 46.3 Plt Count 328 MPV 9.1 L Immature Gran % (Auto) Not performed Neut % (Auto) Not performed Lymph % (Auto) Not performed Peach % (Auto) Not performed Eos % (Auto) Not performed Baso % (Auto) Not performed Neut # (Auto) Not performed Lymph # (Auto) Not performed Peach # (Auto) Not performed Eos # (Auto) Not performed Baso # (Auto) Not performed Abs Immat Gran (auto) Not performed Neutrophils % (Manual) 81.0 H Band Neutrophils % 2.0 Lymphocytes % (Manual) 10.0 L Monocytes % (Manual) 7.0 Neutrophils # (Manual) 20.7 H Band Neutrophils # 0.5 Lymphocytes # (Manual) 2.6 Monocytes # (Manual) 1.8 H RBC Morph Comment Normal Turbidity < 20 Sodium 141 Potassium 3.8 Chloride 106 Carbon Dioxide 26 Anion Gap 9 BUN 20.0 H Creatinine 0.9 GFR Calculation 73 BUN/Creatinine Ratio 22 Glucose 176 H Glucometer 155 Calculated Osmolality 278 Calcium 7.8 L Icterus Index < 2 Troponin I PTH Intact Specimen Hemolysis < 15 Urine Histoplasma Ag U Histoplasma Ag Detec 09/25/17 09/25/17 09/26/17 05:59 21:22 04:16 WBC RBC Hgb Hct MCV MCH MCHC RDW Std Deviation Plt Count MPV Immature Gran % (Auto) Neut % (Auto) Lymph % (Auto) Peach % (Auto) Eos % (Auto) Baso % (Auto) Neut # (Auto) Lymph # (Auto) Peach # (Auto) Eos # (Auto) Baso # (Auto) Abs Immat Gran (auto) Neutrophils % (Manual) Band Neutrophils % Lymphocytes % (Manual) Monocytes % (Manual) Neutrophils # (Manual) Band Neutrophils # Lymphocytes # (Manual) Monocytes # (Manual) RBC Morph Comment Turbidity Sodium Potassium Chloride Carbon Dioxide Anion Gap BUN Creatinine GFR Calculation BUN/Creatinine Ratio Glucose Glucometer 51 Calculated Osmolality Calcium Icterus Index Troponin I < 0.012 PTH Intact 351.5 H Specimen Hemolysis < 15 Urine Histoplasma Ag U Histoplasma Ag Detec 09/26/17 09/26/17 04:19 04:19 WBC 19.6 H RBC 4.63 Hgb 12.5 Hct 39.2 MCV 84.7 MCH 27.0 MCHC 31.9 RDW Std Deviation 47.2 Plt Count 273 MPV 9.0 L Immature Gran % (Auto) Not performed Neut % (Auto) Not performed Lymph % (Auto) Not performed Peach % (Auto) Not performed Eos % (Auto) Not performed Baso % (Auto) Not performed Neut # (Auto) Not performed Lymph # (Auto) Not performed Peach # (Auto) Not performed Eos # (Auto) Not performed Baso # (Auto) Not performed Abs Immat Gran (auto) Not performed Neutrophils % (Manual) 77.0 H Band Neutrophils % Lymphocytes % (Manual) 18.0 L Monocytes % (Manual) 5.0 Neutrophils # (Manual) 15.1 H Band Neutrophils # Lymphocytes # (Manual) 3.5 Monocytes # (Manual) 1.0 H RBC Morph Comment Normal Turbidity < 20 Sodium 141 Potassium 3.7 Chloride 105 Carbon Dioxide 28 Anion Gap 8 BUN 20.0 H Creatinine 0.9 GFR Calculation 73 BUN/Creatinine Ratio 22 Glucose 106 Glucometer Calculated Osmolality 274 Calcium 7.7 L Icterus Index < 2 Troponin I PTH Intact Specimen Hemolysis < 15 Urine Histoplasma Ag U Histoplasma Ag Detec Assessment and Plan - Assessment and Plan Abnormal CT with MARIA ESTHER pleural based nodule COPD with exacerbation Immune compromised Renal cell carcinoma with mets Plan: Pt on RA and tolerating well. On pulmicort BID and A/A q4hr. Only has A/A at home with ron, awaiting trelegy PA. Will speak with office in regards to the PA, if unable to get trelegy would start Breo 100/25 1 puff daily and Incruse daily. On cefdinir per ID, needs to f/u in 2-[address] Johnson, will have office call. - Time Spent With Patient Total time spent is greater than 50% in coordination of care (as documented) at patient's floor/unit and/or counseling patient: less than 15 minutes
[2017-09-26 13:29] VITALS: RESP 24; O2SAT 95
--- NOTE | 2017-09-26 13:51 | Discharge Summary ---
Discharge Information Date of admission: 09/21/17 21:39 Anticipated date of discharge: 09/26/17 Attending Physician: Lidia Obrien MD Primary care physician: Melva PRINGLE Consults: Consulting Provider: Magali Brown Reason For Exam: pneumonia, fevers, immunocompromised Consulting Provider: Rick Alegre Reason For Exam: renal cell ca Consulting Provider: Eldon Johnson Reason For Exam: pneumonia - Discharge Diagnosis (1) Acute exacerbation of chronic obstructive pulmonary disease (COPD) Status: Acute (2) Pneumonia Status: Ruled-out COPD with exacerbation. Bronchitis Cough, refractory-POA Positive blood culture-strep viridans Acute pleuritic chest pain. History of pulmonary dysplasia at Leukocytosis Flushing Recent discontinuation of tobacco one week ago. Fatigue. Myalgias. Mild hyperglycemia-secondary to steroids. 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 Pleural/subpleural pulmonary nodules Immunosuppression with steroids, clear cell cancer. Generalized weakness. Anxiety PAC, partially occluded - Laboratory Labs: On admission WBC 27.2, hemoglobin 14.2, electrolytes, renal function, and liver enzymes unremarkable. Respiratory viral panel negative, CPK 32 on 09/22 PTH 351.5 on 09/26; vitamin D levels pending. 09/26/17 04:19 09/26/17 04:19 QuantiFERON-TB test, serum histoplasma antigen, acetylcholine receptor muscle binding antibody, and vitamin D levels pending at discharge - Microbiology Microbiology 09/24/17 16:11 Port/Picc Blood Culture - Preliminary No Growth After 1 Day 09/21/17 22:55 Sputum, Expectorated Gram Stain - Final 09/21/17 22:55 Sputum, Expectorated Sputum Culture -final Normal Respiratory Donna including Yeast Present 09/22/17 22:43 Blood Cryptococcal Antigen (Serum) - Final 09/21/17 1/2 blood cultures positive for strep viridans 09/21/17 urine Legionella antigen negative - Radiology Radiology: CT angiogram lungs with pulmonary emboli protocol on 09/21/17: There is mild diffuse mosaic air trapping. There is a persistent pleural or subpleural-based nodule in the anterolateral left lung that measures 8.6 mm and a pleural-based nodule in the inferomedial left lung base that measures 9.3 mm.. There is no definite evidence for pulmonary embolus. No evidence for bronchial occlusion or mucous plugging. Heart size is normal. No pericardial effusion. No definite pleural effusion. The great vessels arise from the aorta in a normal fashion. There is no evidence for aortic dissection, or significant atherosclerotic plaque. The included portions of the upper abdominal structures are unremarkable. IMPRESSION: Mild diffuse mosaic air trapping. Without definite evidence for pulmonary embolus. Persistent pleural or subpleural-based nodules in the anterolateral and inferior medial left lung. ----- Sinus CT without contrast on 09/22/17: There is a small mucous retention cyst in the medial left maxillary sinus.. The frontal sinuses are hypoplastic and the ethmoid sinuses are clear. The sphenoidal sinuses are clear. The osseous nasal septum is slightly displaced to the right anteriorly. There is no definite obstruction of the osteomeatal unit on either the left or right side. No definite bony destruction. IMPRESSION: No definite acute or chronic sinusitis. No evidence for bony destruction or osteomeatal unit obstruction. History of Present Illness HPI: The patient developed a fever, wheezing, shortness of breath, and cough 2 weeks ago. 09/05. The patient has been on ? antibiotic during this time. At one point the patient had a CT of the chest done that excluded PE. The patient has been followed by Robert LINDER and Dr. Alegre. The patient continued on antibiotics and changed to Levaquin recently and prednisone 60 mg po. Continue to feel bad and contacted Dr. Bui who asked her to come into the ED tonight. CT tonight did not demonstate a clot. The patient is currently being treated by Dr. Pickard for renal cell carcinoma (dx in 2016 s/p nephrectomy). The pateint has been seen by pulmonary. CT tonight demonstrated ground glass infiltrates and mosaic air trapping. The patient to be admitted for further workup of infectious process. Note that this patient is at risk for immune compromised organisms. Objective Vital signs: Temperature 96.5 F L 09/26/17 08:57 Pulse Rate 81 09/26/17 08:57 Respiratory Rate 24 09/26/17 13:15 Blood Pressure 124/62 09/26/17 08:57 Pulse Oximetry 95 -RA 09/26/17 13:15 NAD, fluent speech, no facial flushing No cervical adenopathy, oropharynx clear, no thrush Respirations nonlabored, good airflow, breath sounds clear Regular cardiac rhythm Ambulating in the room without assistance Height/Weight/BMI: Height 1.68 m Weight 100 kg Body Mass Index 34.1 Hospital Course This is a general summary of the patient's hospital course. For more details refer to the complete medical record. Hospital course: Diana was hospitalized with persistent cough, dyspnea, and wheezing which is failed outpatient therapy. She was initially treated with IV steroids in conjunction with expanded IV antibiotics. She was seen by Dr. Alegre, Dr. Johnson, and Dr. Brown. Dr. Brown recommended discontinuation of antibiotics initially but she was subsequently restarted on ceftriaxone on 09/24 after 1/2 of the blood cultures drawn on admission were positive for strep viridans. Ultimately the strep was felt to be a contaminant and prolonged therapy was not felt to be needed. Blood cultures drawn via the PAC were negative; the positive blood culture was drawn peripherally. She remains on oral antibiotics at discharge for management of bronchitis at discharge. Significant leukocytosis was present on admission which persisted through the hospitalization although was trending down at discharge with a WBC of 19.6 on . Extensive testing for atypical infections was obtained including negative Cryptococcal, legionella, and urine histoplasma antigens. Sputum culture grew out normal donna and respiratory viral panel was negative for tested viruses. TB Quantiferon and serum histoplasma antigen are pending at discharge. Respiratory symptoms improved progressively through the hospital course with combined treatment with inhaled budesonide, albuterol/ipratropium, and a combination of cough suppressants with Tessalon Perles and Tussionex syrup. IV steroids were rapidly converted to prednisone due to increased anxiety and panic symptoms patient experienced on Solu-Medrol. Prednisone was tapered to 30 mg daily prior to discharge and taper will continue over the next week. Diana had mild hyperglycemia on IV steroids which aggravated anxiety further as she has fear of needlesticks. Diana described a variety of symptoms which were poorly explained during the hospitalization including variable weakness, flushing, left sided ear/neck/jaw pain-possibly triggered by eating, and shocklike pains in her head. The patient was flushed on occasion while still on IV Solu-Medrol but this was not noted thereafter. Anxiety was felt to contribute to some of her symptoms and there was a transient toward improvement in symptoms overall as she approach discharged. She acknowledged having significant anxiety regarding her underlying illness and was open to a trial of antidepressant. Wellbutrin XL was initiated at 150 mg on the date of discharge with recommendation that she continue at this dose for the next week after which can be increased to 300 mg daily if inadequate response seen. Additional studies are pending including acetylcholine receptor antibody and vitamin D levels for evaluation of fluctuating calcium levels to further evaluate atypical symptoms described. Patient was felt stable for discharge on 09/26. She has been stable on room air throughout the hospital course. She will discharge on 30 mg of prednisone daily to be tapered to 20 mg in 3 days and 10 mg 3 days after that. Pulmonary is working to obtain preauthorization for Breo and Incruse for outpatient use but in the intervening time she'll remain on pulmicort BID and A/A qid and prn. She will continue Cefdinir for an additional 3 days to complete treatment for bronchitis. Prescriptions for Tessalon Perles and Tussionex were provided at discharge. Diana is asked to follow up with Melva Valle and Dr. Alegre within 1-2 weeks, Dr. Johnson in 2-3 weeks. Time spent with patient: discharge greater than 30 minutes Resuscitation Status: Full Code Discharge Plan - Discharge Disposition Discharge Date: 09/26/17 Disposition: 01 Discharged Home, Self-Care *Condition: Improved Reason For Visit (Visit label in EMR): pneumonia - Discharge Medications *Discharge Medications: New Benzonatate [Tessalon Perles] 200 mg PO TID PRN #40 cap PRN Reason: Cough BuPROPion XL [Wellbutrin Xl] 150 mg PO DAILY #30 tab.er.24h Cefdinir 300 mg PO Q12HR #7 cap Hydrocodone/Chlorphen Oral Liq [Tussionex] 5 ml PO Q12HR PRN #4 oz PRN Reason: Cough Menthol Cough Drops [Ricola Sf] 1 lozenge MM PRN PRN lozenge PRN Reason: Cough Budesonide Inhalation [Pulmicort Inhalation] 0.5 mg AEROSOL RTBID #60 vial Continue LORazepam [Ativan] 0.5 mg PO DAILY PRN PRN Reason: Anxiety Nystatin Oral Liq. [Mycostatin] 5 ml PO DAILY Magic Mouthwash [Magic Mouthwash (Lido/Maalox/Carafate)] 5 ml PO Q4H PRN PRN Reason: Mouth Pain Ranitidine [Zantac] 150 mg PO BID Albuterol Sulfate [Proair Hfa] 2 puff INH Q4H PRN PRN Reason: Shortness Of Air/Wheezing Hydromorphone HCl 4 - 8 mg PO Q4-6HR PRN PRN Reason: Prn Orders Hydrocodone/APAP 7.5/325 [Chester 7.5/325] 1 - 2 tab PO Q6H PRN PRN Reason: Pain Nicotine Patch [Nicoderm] 14 mg TD DAILY Levothyroxine Sodium 150 mcg PO ACB Changed predniSONE [Prednisone] 30 mg PO DAILY #0 Discontinued Denosumab [Xgeva] 1 dose SQ Q30D Levofloxacin [Levaquin] 500 mg PO DAILY No Action Albuterol/Ipratropium [Duoneb] 1 unit AEROSOL Q6H - Discharge Packet/Instructions *Diet: Regular *Activity: As tolerate *Pain Management/Treatment: Tylenol or Chester or hydromorphone as previously prescribed *Wound Care: Not applicable Additional Instructions: -Continue Cefdinir twice daily for 3 more days to complete treatment for bronchitis. -Decrease prednisone to 30 mg (1.5-20 mg tablet) for 3 days, then 20 mg for 3 days, and 10 mg until reevaluated by Dr. Alegre or Dr. Jones. -Continue DuoNeb 4 times a day; can use additional treatments if needed 2-4 times daily. -Add budesonide (Pulmicort) to breathing treatments twice daily. This is an inhaled steroid to decrease inflammation in your lungs. Use in the morning and in the evenings. -Breathing treatments may change when they get authorization for Breo and Incruse. -Use Tessalon Perles 3 x daily or Tussionex syrup 2 x daily as needed for cough. -Continue Ricola cough drops as needed. -Continue Wellbutrin (or bupropion) 150 mg daily for the next week, if you continued to have significant anxiety dose can be increased to 300 mg taken at one time at that point. You will need a new prescription to continue therapy after the first month. -Schedule follow-up appointment with Dr. Alegre in the next 1-[address] Johnson in 2-3 weeks (his office will call you). -Discontinue levofloxacin. *Expected Signs/Symptoms: Occasional cough-should improve over time; some degree of weakness which I expect will improve the [id number] steroids and issue resume normal activities, some degree of anxiety. *Notify Physician if: Anything out of the ordinary *During Business Hours Contact: Melva Haddad, Dr. Johnson, or Dr. Keene's office as appropriate *After Business Hours Contact: Call [facility] at [phone] and ask that the on-call physician be paged *Pending Lab/Results: Follow up w/Provider - Referrals/Follow Up *Referrals/Follow Up: Eldon Johnson MD [Physician] - (2-3 weeks-his office will call to schedule) Melva Valle PA [Physician Cluster Bore Operator] - (1-2 weeks) Rick Alegre MD [Physician] - (1-2 weeks) Zion Keene MD [Physician] - (As previously scheduled) - Patient Handouts Patient Handouts: Pneumonia (GEN) - Dismissal Complete Discharge Instructions are:: Complete Physician Narrative - Narrative Attestation Narrative: Date: 09/26/17 Time: 0516
== END 2017-09-26 14:50 | disposition home or self-care (01) | DRG 190 ==
LOC: ED 17:32 → SUATTDRO 21:39 → MED 21:39
PROVIDERS: ADMIT Emergency Medicine; ATTEND Internal Medicine